=== PATIENT | male | born 1960 | race Caucasian/White ===

== ENCOUNTER 2017-06-16 10:00 | Outpatient (RCR) | payer OTHER, SELFPAY ==
[2017-05-31 15:20] VITALS: BP 128/80; PULSE 82; RESP 18; TEMP 37.3
--- NOTE | 2017-05-31 17:23 | HP.PCM_ITS ---
(1) Chronic 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 Status: Chronic Current Visit: Yes Code(s): L97.522 - Non-pressure chronic ulcer of other part of 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 (2) Equinus contracture of left ankle Status: Chronic Current Visit: Yes Code(s): M24.572 - Contracture, left ankle (3) Edema of left lower leg due to peripheral venous insufficiency Status: Chronic Current Visit: Yes Code(s): I87.2 - Venous insufficiency ( chronic) (peripheral); R60.9 - Edema, unspecified (4) Other specified peripheral vascular diseases Status: Chronic Current Visit: Yes Code(s): I73.89 - Other specified peripheral vascular diseases (5) History of DVT of lower extremity Status: Chronic Current Visit: Yes Code(s): Z86.718 - Personal history of other venous thrombosis and embolism (6) Type 2 diabetes mellitus with diabetic polyneuropathy Status: Chronic Current Visit: Yes Code(s): E11.42 - Type 2 diabetes mellitus with diabetic polyneuropathy History of Present Illness Date of Service: 05/31/17 Chief Complaint: L plantar foot ulceration History of Wound: This 57-year-old male with multiple comorbidities presents to the wound healing center for left heel ulcer. He reports the onset was approximately 1 month ago. He was referred from the foot and ankle center. He has applied Neosporin and hydrogel. He continues to wear he denies redness or odor. He denies antibiotic use. He does have rest burning and tingling. He denies claudication symptoms when he is walking. He reports a history of previous ulcer to the left foot on the top. He denies recent blood flow studies within the past 2 years. Past Medical History Past Medical History: Chronic Problems Chronic 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 (Chronic) Equinus contracture of left ankle (Chronic) Edema of left lower leg due to peripheral venous insufficiency (Chronic) Other specified peripheral vascular diseases (Chronic) Type 2 diabetes mellitus with diabetic polyneuropathy (Chronic) Depression (Chronic) Essential hypertension (Chronic) Morbid obesity (Chronic) Type 2 diabetes mellitus (Chronic) History of DVT of lower extremity (Chronic) Past Medical History: Past medical history: Diabetes with neuropathy, congestive heart failure, and hypertension, peripheral vascular disease, history of atrial fibrillation on chronic anticoagulation medications, history of left thigh and leg blood clots. Family history: Diabetes, cardiac disease, stroke Surgical History: noncontributory, - - carpal tunnel syndrom surgery Allergies/Adverse Reactions: Allergies cephalexin Allergy (Verified 12/02/16 11:33) Hives Penicillins Allergy (Verified 12/02/16 11:33) Hives Home Medications: Ambulatory Orders Medication Instructions Recorded Ascorbic Acid [Vitamin C] 1,000 mg PO DAILY 12/02/16 Buspirone HCl 10 mg PO DAILY 12/02/16 Carvedilol [Coreg (Beta Federico)] 37.5 mg PO DAILY 12/02/16 Cholecalciferol (VIT D3) [Vitamin 1,000 unit PO DAILY 12/02/16 D3] Dicyclomine HCl 20 mg PO TID 12/02/16 Gabapentin [Neurontin] 600 mg PO BID 12/02/16 Multivitamin [Multiple Vitamins] 1 each PO DAILY 12/02/16 Nifedipine [Nifedipine ER] 30 mg PO DAILY 12/02/16 Pravastatin Sodium 80 mg PO DAILY 12/02/16 Psyllium Husk (with Sugar) 3.4 gm PO PRN PRN 12/02/16 [Metamucil Packet] Pyridoxine HCl [Vitamin B-6] 25 mg PO DAILY 12/02/16 Ranitidine [Zantac] 150 mg PO BID 12/02/16 Venlafaxine XR [Effexor Xr] 150 mg PO DAILY 12/02/16 Warfarin [Coumadin] 10 mg PO SUTUTHSA 12/02/16 Warfarin [Coumadin] 11 mg PO MOWEFR 12/02/16 Furosemide [Lasix] 40 mg PO BID #60 tablet 12/04/16 - Family History Maternal Heart Disease Lives: Alone Smoking Status: Never smoker Tobacco Use: Non-smoker Alcohol: None - previous use Drugs: None Review of Systems Constitutional: Denies: Chills, Fever, Weakness Cardiovascular: Denies: Chest Pain, Claudication Gastrointestinal: Denies: Diarrhea, Nausea, Vomiting Musculoskeletal: Denies: Foot Pain, Joint Tenderness Skin: Reports: Skin Changes, Wounds Neurological: Reports: Numbness Hematologic/ Lymphatic: Reports: Hx of blood clot - Physical Exam Vital Signs Temp Pulse Resp BP 99.1 F 82 18 128/80 H 05/31/17 15:20 05/31/17 15:20 05/31/17 15:20 05/31/17 15:20 General: Alert, Oriented x3, Cooperative Extremities: No cyanosis, Capillary Refill Less than 3 Seconds, No Calf Tenderness - Negative Jeronimo and Rutledge bilateral lower extremities, Peripheral Pulses Normal - Palpable dorsalis pedis pulse left and nonpalpable posterior tibia artery left Skin: Ulcer/ Wound - No purulence, no erythema, streaking, no odor, no necrosis , no infection left lower extremity ulcer. There is no deep probing, - - The peripheral skin is atrophic and without her left lower Wound Measurements and Assessment WC - Nurse 1 - General Ulcer Measurement Start: 05/31/17 15:18 Freq: Status: Active Protocol: Activity Type Activity Date Activity User E-Sign Co-Sign Detail Recorded Client Recorded Date Recorded By Document 05/31/17 15:20 DV [id number] 05/31/17 15:37 DV 05/31/17 15:20 Wound Center Nurse 1 [Ulcer Assessment] #1 Left Heel- Plantar -Combined with other wound No -Current Size (cm) - Length 1.0 -Current Size (cm) - Width 0.8 -Current Size (cm) - Depth 0.5 -Total Square Cm 0.80 -Date of Last Picture (Recall this 05/31/17 field) -Photo Taken Yes -Epithelialization None Present -Tunneling No -Undermining/Tunneling No -Circular Undermining No -Exudate Amt Small (1-33%) -Exudate Type Serosanguineous -Wound Margin Indistinct, Non -Visible -Granulation Amt None Present (0 %) -Granulation Quality N/A -Slough/Fibrin Yes -Necrosis Amt Large (67-100%) -Necrotic Tissue Type Adherent Slough -Structure Exposed None/Limited to Skin Breakdown -Texture (Fiona-wound Skin Appearance) Assessed Localized Edema -Moisture (Fiona-wound Skin Appearance Assessed ) Weeping Dry/Scaly -Color (Fiona-wound Skin Appearance) Assessed Erythema -Temperature (Fiona-wound Skin No Abnormality Appearance) (Pt Warm) -Tenderness on Palpation (Fiona-wound No Skin Appearance) -Ulcer Cleansing Rinsed/ Irrigated with Saline -Foul Odor after Cleansing No -Anesthetic Used 5% Lidocaine Gel [Edema Assessment] -Lower Limb Edema Present No -Right Calf (cm) 46.0 -Right Ankle (cm) 24.6 -Left Calf (cm) 46.0 -Left Ankle (cm) 24.7 - Nurse 2 - General Ulcer CM Notes Start: 05/31/17 15:18 Freq: Status: Active Protocol: Activity Type Activity Date Activity User E-Sign Co-Sign Detail Recorded Client Recorded Date Recorded By Document 05/31/17 16:13 [id number] 05/31/17 16:20 05/31/17 16:13 Wound Center Nurse 2 [Procedure/Treatment] #1 Left Heel- Plantar -Time 16:14 -Correct Patient Yes -Correct Side, Site, Position Yes -Correct Procedure Yes -Procedure Performed Yes -Type of Procedure Debridement -Clinical Debridement Subcutaneous -Post Debridement Size (cm) - Length 1.0 -Post Debridement Size (cm) - Width 1.0 -Post Debridement Size (cm) - Depth 0.1 -Total Square Cm 1.00 -Wound/Ulcer Outcome Not Healed -Ulcer Cleansing Rinsed/ Irrigated with Saline -Foul Odor after Cleansing No -Bioengineered Tissue No -Topical Lidocaine (%) 5 -Bleeding Controlled with Pressure -Treatment Response Procedure Tolerated Well [See Physician Procedure note for Specifics] Pain Scale: 0-10 Numeric [Pain] -Is Patient Pain Free? Yes Musculoskeletal: No Tenderness to Palpation of Joints or Extremities, Muscle Wasting, - - Compartments of left lower extremity remain soft and there is no crepitus periwound palpation. There is decreased ankle joint dorsiflexion left lower extremity Neurological: - - Lack of epicritic sensation light touch bilateral lower extremities consistent with neuropathy Psych/Mental Status: Normal Affect, Appropriate Debridement Note Post-Debridement Measurements/Treatment - Nurse 2 - General Ulcer CM Notes Start: 05/31/17 15:18 Freq: Status: Active Protocol: Activity Type Activity Date Activity User E-Sign Co-Sign Detail Recorded Client Recorded Date Recorded By Document 05/31/17 16:13 [id number] 05/31/17 16:20 05/31/17 16:13 Wound Center Nurse 2 #1 Left Heel- Plantar -Time 16:14 -Correct Patient Yes -Correct Side, Site, Position Yes -Correct Procedure Yes -Procedure Performed Yes -Type of Procedure Debridement -Clinical Debridement Subcutaneous -Post Debridement Size (cm) - Length 1.0 -Post Debridement Size (cm) - Width 1.0 -Post Debridement Size (cm) - Depth 0.1 -Total Square Cm 1.00 -Wound/Ulcer Outcome Not Healed -Ulcer Cleansing Rinsed/ Irrigated with Saline -Foul Odor after Cleansing No -Bioengineered Tissue No -Topical Lidocaine (%) 5 -Bleeding Controlled with Pressure -Treatment Response Procedure Tolerated Well Pain Scale: 0-10 Numeric Is Patient Pain Free? Yes Wound debrided: plantar heel Laterality: Left Wound Grade/Stage: grade 1 Type of Debridement: Excisional debridement Anesthesia Used: 4% Lidocaine Solution Depth: in the subcutaneous layer Percentage of wound debrided: 100 Instrument Used: #15 blade Tissue Removed: fibrous, devitalized subcutaneous, biofilm, slough Severity: Fat Layer Exposed Amount of bleeding with debridement: Mild Bleeding Controlled with: Pressure Patient tolerated procedure well Assessment/Plan Active Problems Chronic 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 (Chronic) Equinus contracture of left ankle (Chronic) Edema of left lower leg due to peripheral venous insufficiency (Chronic) Other specified peripheral vascular diseases (Chronic) Type 2 diabetes mellitus with diabetic polyneuropathy (Chronic) History of DVT of lower extremity (Chronic) Assessment: Type 2 diabetes, uncontrolled with neuropathy, PVD, venous insufficiency, ulcer of L plantar foot, obesity Plan: I reviewed and discussed his care plan and reviewed his previous chart. I discussed his ongoing treatment recommendations. Subcutaneous excisional debridement was performed as noted in the clinical panel. I recommend changing the dressing daily with hydrogel with collagen and to discontinue Neosporin application. I recommended advanced wound care product, epi fix which is derived from amniotic cord cells to optimize a timely healing process. Preauthorization will be initiated. He was reassured no local signs of infection are noted today. To offload the wound with a non pneumatic cam walker with dual density offloading pocket. A prescription was provided and he will obtain this at the foot and ankle center. Compliance was discussed. I recommend nutritional supplementation to optimize healing and improved diabetic control. A prescription for Marcos was provided and he was advised to drink this twice daily. His noninvasive vascular studies were reviewed from 2014 with a right TRISH of 1.12 and left of 1.17. His previous toe brachial indices were 0.4 right and 0.54 left. I recommend updating these at this time due to his return of the wound and delayed healing. I also ordered venous reflux studies to rule out venous insufficiency which may be contributing to his lower extremity edema and delayed wound healing. I ordered some labs including CBC, CMP, and hemoglobin A1c to better understand his medical stability. I will review all of these results when he returns to clinic next week. He understands he is at risk for delayed healing and limb loss. I answered all his questions. I recommend he follows up in 1 week or call sooner if he has any questions or concerns. If he is any status progression or concerns of infection he was advised to go to the emergency room immediately.
[2017-05-31 19:01] LABS: Absolute Lymphocyte Count 1.75 X10^3/ul (0.83-4.51); Absolute Neutrophil Count 4.6 X10^3/uL (2.0-7.7); Basophil# 0.03 X10^3/uL; Basophil% 0.4 % (0-1); Eosinophil# 0.17 X10^3/uL; Eosinophils% 2.4 % (0-5); Hematocrit 36.7 % (40-54); Hemoglobin 11.7 g/dl (13.0-16.5); Lymphocyte # 1.75 X10^3/ul (4.0); Lymphocyte % 24.9 % (19-41); Mean Corp Hgb Conc 31.9 g/gl (32-36); Mean Corpuscular Hgb 29.5 pg (27.0-32.0); Mean Corpuscular Volume 92.4 fL (80-94); Mean Platelet Vol. 10.5 fl (6.2-12.0); Monocyte# 0.51 X10^3/uL; Monocyte% 7.3 % (0-10); Neutrophil # 4.56 X10^3/uL (2.7-7.7); Neutrophil % 64.9 % (47-70); Platelet Count 209 K/mm3 (150-450); RBC Distribution Width CV 13.6 % (11.6-14.6); RBC Distribution Width SD 45.8 fl (35.1-43.9); Red Blood Count 3.97 M/mm3 (4.6-6.2)
[2017-05-31 19:03] LABS: POSITIVE COUNT NO; POSITIVE DIFFERENTIAL NO; POSITIVE MORPHOLOGY NO
[2017-05-31 19:13] LABS: ALB/GLOB Ratio 0.9 RATIO (0.9-2.4); AST(SGOT) 22 U/L (15-37); Alanine Aminotransfer ALT/SGPT 29 U/L (16-61); Albumin, Serum 3.9 g/dL (3.2-5.0); Alkaline Phosphatase 72 U/L (45-117); Anion Gap 9 (5-15); BUN 72 mg/dL (7-18); BUN/Creat Ratio 23.1 RATIO (10-20); Chloride 112 mmol/L (98-107); Creatinine, Serum 3.12 mg/dL (0.70-1.30); EST Glomerular Filtration Rate 22 mL/min (>60); Est Glom Filt Rate - Afr Amer 27 mL/min (>60); Globulin 4.5 g/dL (2.2-4.2); Glucose 95 mg/dL (74-106); Potassium 5.1 mmol/L (3.5-5.1); Protein, Total 8.4 g/dL (6.4-8.2); Sodium Level 146 mmol/L (136-145)
[2017-05-31 19:14] LABS: Hemoglobin A1c 7.2 % (4.2-6.3)
[2017-06-07 15:36] VITALS: BP 125/65; PULSE 69; RESP 18; TEMP 37.2
--- NOTE | 2017-06-07 16:32 | PN.PCM_ITS ---
(1) Chronic 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 Status: Chronic Current Visit: Yes Code(s): L97.522 - Non-pressure chronic ulcer of other part of 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 (2) Equinus contracture of left ankle Status: Chronic Current Visit: Yes Code(s): M24.572 - Contracture, left ankle (3) Edema of left lower leg due to peripheral venous insufficiency Status: Chronic Current Visit: Yes Code(s): I87.2 - Venous insufficiency ( chronic) (peripheral); R60.9 - Edema, unspecified (4) Other specified peripheral vascular diseases Status: Chronic Current Visit: Yes Code(s): I73.89 - Other specified peripheral vascular diseases (5) History of DVT of lower extremity Status: Chronic Current Visit: Yes Code(s): Z86.718 - Personal history of other venous thrombosis and embolism (6) Type 2 diabetes mellitus with diabetic polyneuropathy Status: Chronic Current Visit: Yes Code(s): E11.42 - Type 2 diabetes mellitus with diabetic polyneuropathy Type of Wound Date of Service: 06/08/17 Chief Complaint: Left foot ulcer History of Wound: This 57-year-old male with multiple comorbidities presents to the wound healing center for follow-up of the left heel ulcer. This is not chronic. He is applied hydrogel is recommended. He continues to wear he denies redness or odor. He denies recent blood flow studies within the past 2 years. He obtained his cam walker boot in which an offloading liner was placed. He still tries keep weight off of his foot and avoid excessive activities. He did not obtain his x-rays advised yet. He denies fever, chill, nausea, vomiting. Progress of Wound: Stable - Physical Exam Vital Signs Temp Pulse Resp BP 98.9 F 69 18 125/65 H 06/07/17 15:36 06/07/17 15:36 06/07/17 15:36 06/07/17 15:36 General: Alert, Oriented x3, Cooperative Extremities: No cyanosis, Capillary Refill Less than 3 Seconds, No Calf Tenderness - Negative Jeronimo and Rutledge sign bilateral, Diminished Peripheral Pulses, Edema - Bilateral lower extremities Skin: Ulcer/ Wound - No purulence, no erythema, streaking, odor, no acute signs of infection bilateral lower extremities. No fluctuance on palpation to the left heel. There is no deep tissue exposed. Wound Measurements and Assessment - Nurse 1 - General Ulcer Measurement Start: 05/31/17 15:18 Freq: Status: Active Protocol: Activity Type Activity Date Activity User E-Sign Co-Sign Detail Recorded Client Recorded Date Recorded By Document 06/07/17 15:36 DV [id number] 06/07/17 15:42 DV 06/07/17 15:36 Wound Center Nurse 1 [Ulcer Assessment] #1 Left Heel- Plantar -Combined with other wound No -Current Size (cm) - Length 0.7 -Current Size (cm) - Width 0.8 -Current Size (cm) - Depth 0.4 -Total Square Cm 0.56 -Photo Taken No -Epithelialization None Present -Tunneling No -Undermining/Tunneling No -Circular Undermining No -Exudate Amt Small (1-33%) -Exudate Type Serosanguineous -Wound Margin Distinct, Outline Attached -Granulation Amt None Present (0 %) -Granulation Quality N/A -Slough/Fibrin Yes -Necrosis Amt Medium (34-66%) -Necrotic Tissue Type Adherent Slough -Structure Exposed None/Limited to Skin Breakdown -Texture (Fiona-wound Skin Appearance) Assessed Scarring -Moisture (Fiona-wound Skin Appearance Weeping ) -Color (Fiona-wound Skin Appearance) No Abnormality Assessed -Temperature (Fiona-wound Skin No Abnormality Appearance) (Pt Warm) -Ulcer Cleansing Rinsed/ Irrigated with Saline -Foul Odor after Cleansing No -Anesthetic Used 4% Lidocaine Solution - Nurse 2 - General Ulcer CM Notes Start: 05/31/17 15:18 Freq: Status: Active Protocol: Activity Type Activity Date Activity User E-Sign Co-Sign Detail Recorded Client Recorded Date Recorded By Document 06/07/17 15:49 TM [id number] 06/07/17 15:54 TM 06/07/17 15:49 Wound Center Nurse 2 [Procedure/Treatment] -Time 15:49 -Correct Patient Yes -Correct Side, Site, Position Yes -Correct Procedure Yes -Procedure Performed Yes -Type of Procedure Debridement -Clinical Debridement Subcutaneous -Post Debridement Size (cm) - Length 0.8 -Post Debridement Size (cm) - Width 0.9 -Post Debridement Size (cm) - Depth 0.4 -Total Square Cm 0.72 -Wound/Ulcer Outcome Not Healed -Ulcer Cleansing Rinsed/ Irrigated with Saline -Foul Odor after Cleansing No -Bioengineered Tissue No -Topical Lidocaine (%) 4 -Bleeding Controlled with Pressure -Treatment Response Procedure Tolerated Well [See Physician Procedure note for Specifics] Pain Scale: 0-10 Numeric [Pain] -Is Patient Pain Free? Yes Musculoskeletal: No Tenderness to Palpation of Joints or Extremities, Muscle Wasting, Tenderness - Mild tenderness with wound manipulation and debridement Neurological: - - Lack of epicritic sensation light touch left lower extremity Psych/Mental Status: Normal Affect, Appropriate Debridement Note Post-Debridement Measurements/Treatment WC - Nurse 2 - General Ulcer CM Notes Start: 05/31/17 15:18 Freq: Status: Active Protocol: Activity Type Activity Date Activity User E-Sign Co-Sign Detail Recorded Client Recorded Date Recorded By Document 05/31/17 16:13 TM [id number] 05/31/17 16:20 TM Document 06/07/17 15:49 TM [id number] 06/07/17 15:54 TM 05/31/17 06/07/17 16:13 15:49 Wound Center Nurse 2 #1 Left Heel- Plantar -Time 16:14 15:49 -Correct Patient Yes Yes -Correct Side, Site, Position Yes Yes -Correct Procedure Yes Yes -Procedure Performed Yes Yes -Type of Procedure Debridement Debridement -Clinical Debridement Subcutaneous Subcutaneous -Post Debridement Size (cm) - Length 1.0 0.8 -Post Debridement Size (cm) - Width 1.0 0.9 -Post Debridement Size (cm) - Depth 0.1 0.4 -Total Square Cm 1.00 0.72 -Wound/Ulcer Outcome Not Healed Not Healed -Ulcer Cleansing Rinsed/ Rinsed/ Irrigated with Irrigated with Saline Saline -Foul Odor after Cleansing No No -Bioengineered Tissue No No -Topical Lidocaine (%) 5 4 -Bleeding Controlled with Pressure Pressure -Treatment Response Procedure Procedure Tolerated Well Tolerated Well Pain Scale: 0-10 Numeric Is Patient Pain Free? Yes Yes Wound debrided: plantar lateral heel Laterality: Left Wound Grade/Stage: grade 1 Type of Debridement: Excisional debridement Anesthesia Used: 4% Lidocaine Solution Depth: in the subcutaneous layer Percentage of wound debrided: 100 Instrument Used: #15 blade Tissue Removed: fibrous, devitalized subcutaneous, biofilm, slough Severity: Fat Layer Exposed Amount of bleeding with debridement: Mild Bleeding Controlled with: Pressure Patient tolerated procedure well Assessment/Plan Active Problems Chronic 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 (Chronic) Equinus contracture of left ankle (Chronic) Edema of left lower leg due to peripheral venous insufficiency (Chronic) Other specified peripheral vascular diseases (Chronic) Type 2 diabetes mellitus with diabetic polyneuropathy (Chronic) History of DVT of lower extremity (Chronic) Assessment: Type 2 diabetes, uncontrolled with neuropathy, PVD, venous insufficiency, ulcer of L plantar foot, obesity Plan: I reviewed and discussed his care plan and reviewed his previous chart. I discussed his ongoing treatment recommendations. Subcutaneous excisional debridement was performed as noted in the clinical panel. I recommend changing the dressing daily with hydrogel with collagen. I recommended advanced wound care product, epi fix which is derived from amniotic cord cells to optimize a timely healing process. Preauthorization is pending. He was reassured no local signs of infection are noted today. To offload the wound with a non pneumatic cam walker with dual density offloading pocket. This was obtained and offloading area was adjusted today. Compliance was discussed. I recommend nutritional supplementation to optimize healing and improved diabetic control. A prescription for Marcos was provided and he was advised to drink this twice daily. His noninvasive vascular studies were reviewed from 2014 with a right TRISH of 1.12 and left of 1.17. His previous toe brachial indices were 0.4 right and 0.54 left. I recommend updating these at this time due to his return of the wound and delayed healing. I also ordered venous reflux studies to rule out venous insufficiency which may be contributing to his lower extremity edema and delayed wound healing. Noninvasive and the test has not been completed yet. It is noted he had an ankle-brachial index on the left lower extremity 1.17 back in 2013. A left foot x-ray was also ordered to evaluate for osseous deformity spurring or foreign body, and he was advised to obtain this today. I ordered some labs including CBC, CMP, and hemoglobin A1c to better understand his medical stability. He did not demonstrate any leukocytosis and his white blood cell count 7.0. It is noted his albumin is 3.9 and his hemoglobin A1c is 7.2% which he will continue to work on improved glucose control. He understands he is at risk for delayed healing and limb loss. I answered all his questions. I recommend he follows up in 1 week or call sooner if he has any questions or concerns. If he is any status progression or concerns of infection he was advised to go to the emergency room immediately.
--- NOTE | 2017-06-09 11:05 | RAD_ITS ---
STUDY: X-RAY - LEFT FOOT CLINICAL: Male, 57 years old. Ulcer TECHNIQUE: 3 view(s) of the foot. COMPARISON: None. FINDINGS: Normal talus, calcaneus, and tarsal bones. Normal visualized subtalar, talonavicular, calcaneocuboid, tarsal and tarsometatarsal articulations. Normal metatarsi. Normal metatarsophalangeal joint of the great toe. Normal tibial and fibular sesamoid bones. Normal interphalangeal joint of the great toe. Normal phalanges of the great toe. Normal second through fifth metatarsophalangeal joints. Normal interphalangeal joints and phalanges of the lesser toes. Plantar soft tissue air likely at site of ulcer. Arterial calcifications. RAD/Foot min 3 Views IMPRESSION: No focal osseous lesion is evident. If there is further concern for osteomyelitis, consider correlation with three-phase bone scan or contrast-enhanced MRI. Electronically Signed: Devin Beckett MD at 8:18 EDT Tel , Service support ,
[2017-06-14 15:49] VITALS: BP 150/83; PULSE 59; RESP 18; TEMP 36.3
--- NOTE | 2017-06-14 16:50 | PN.PCM_ITS ---
(1) Chronic 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 Status: Chronic Current Visit: Yes Code(s): L97.522 - Non-pressure chronic ulcer of other part of 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 (2) Equinus contracture of left ankle Status: Chronic Current Visit: Yes Code(s): M24.572 - Contracture, left ankle (3) Edema of left lower leg due to peripheral venous insufficiency Status: Chronic Current Visit: Yes Code(s): I87.2 - Venous insufficiency ( chronic) (peripheral); R60.9 - Edema, unspecified (4) Other specified peripheral vascular diseases Status: Chronic Current Visit: Yes Code(s): I73.89 - Other specified peripheral vascular diseases (5) History of DVT of lower extremity Status: Chronic Current Visit: Yes Code(s): Z86.718 - Personal history of other venous thrombosis and embolism (6) Type 2 diabetes mellitus with diabetic polyneuropathy Status: Chronic Current Visit: Yes Code(s): E11.42 - Type 2 diabetes mellitus with diabetic polyneuropathy Type of Wound Date of Service: 06/16/17 Chief Complaint: Left foot ulcer History of Wound: This 57-year-old male with multiple comorbidities presents to the wound healing center for follow-up of the left heel ulcer. This is not chronic. He is applied hydrogel is recommended. He continues to wear he denies redness or odor. He denies recent blood flow studies within the past 2 years. He obtained his cam walker boot in which an offloading liner was placed. He still tries to keep weight off of his foot and avoid excessive activities. He did obtain his x-rays and he would like to review the results. He denies fever, chill, nausea, vomiting. Progress of Wound: Improving - Physical Exam Vital Signs Temp Pulse Resp BP 97.3 F L 59 L 18 150/83 H 06/14/17 15:49 06/14/17 15:49 06/14/17 15:49 06/14/17 15:49 General: Alert, Oriented x3, Cooperative Extremities: No cyanosis, Capillary Refill Less than 3 Seconds, No Calf Tenderness - Negative Jeronimo present bilateral, Diminished Peripheral Pulses, Edema Skin: Ulcer/ Wound - No purulence, no erythema, streaking, no odor, no acute signs of infection or necrosis. There is some peripheral epithelialization noted. His peripheral skin is atrophic. Wound Measurements and Assessment WC - Nurse 1 - General Ulcer Measurement Start: 05/31/17 15:18 Freq: Status: Active Protocol: Activity Type Activity Date Activity User E-Sign Co-Sign Detail Recorded Client Recorded Date Recorded By Document 06/14/17 15:49 [id number] 06/14/17 15:51 TM 06/14/17 15:49 Wound Center Nurse 1 [Ulcer Assessment] #1 Left Heel- Plantar -Combined with other wound No -Current Size (cm) - Length 0.5 -Current Size (cm) - Width 0.5 -Current Size (cm) - Depth 0.1 -Total Square Cm 0.25 -Photo Taken No -Epithelialization None Present -Tunneling No -Undermining/Tunneling No -Circular Undermining No -Classification - Thickness Full Thickness without Exposed Support Structure -Exudate Amt Small (1-33%) -Exudate Type Serosanguineous -Wound Margin Distinct, Outline Attached -Granulation Amt Large (67-100%) -Granulation Quality [place] -Slough/Fibrin Yes -Necrosis Amt Small (1-33%) -Necrotic Tissue Type Adherent Slough -Structure Exposed Fascia Fat Layer Exposed -Texture (Fiona-wound Skin Appearance) Callus Scarring -Moisture (Fiona-wound Skin Appearance No Abnormality ) -Color (Fiona-wound Skin Appearance) Erythema -Temperature (Fiona-wound Skin No Abnormality Appearance) (Pt Warm) -Tenderness on Palpation (Fiona-wound No Skin Appearance) -Ulcer Cleansing Rinsed/ Irrigated with Saline -Foul Odor after Cleansing No -Anesthetic Used 5% Lidocaine Gel [Edema Assessment] -Lower Limb Edema Present Yes -Left Calf (cm) 44.5 -Left Ankle (cm) 24.0 - Nurse 2 - General Ulcer CM Notes Start: 05/31/17 15:18 Freq: Status: Active Protocol: Activity Type Activity Date Activity User E-Sign Co-Sign Detail Recorded Client Recorded Date Recorded By Document 06/14/17 16:38 [id number] 06/14/17 16:39 06/14/17 16:38 Wound Center Nurse 2 [Procedure/Treatment] #1 Left Heel- Plantar -Time 16:38 -Correct Patient Yes -Correct Side, Site, Position Yes -Correct Procedure Yes -Procedure Performed Yes -Type of Procedure Debridement -Clinical Debridement Subcutaneous -Post Debridement Size (cm) - Length 0.6 -Post Debridement Size (cm) - Width 0.6 -Post Debridement Size (cm) - Depth 0.1 -Total Square Cm 0.36 -Wound/Ulcer Outcome Not Healed -Ulcer Cleansing Rinsed/ Irrigated with Saline -Foul Odor after Cleansing No -Bioengineered Tissue No -Topical Lidocaine (%) 5 -Bleeding Controlled with Pressure -Treatment Response Procedure Tolerated Well [See Physician Procedure note for Specifics] Pain Scale: 0-10 Numeric [Pain] -Is Patient Pain Free? Yes Musculoskeletal: No Tenderness to Palpation of Joints or Extremities, Muscle Wasting, Tenderness - No pain with manipulation left foot Neurological: - - Lack of epicritic sensation light touch left lower extremity Psych/Mental Status: Normal Affect, Appropriate Debridement Note Post-Debridement Measurements/Treatment WC - Nurse 2 - General Ulcer CM Notes Start: 05/31/17 15:18 Freq: Status: Active Protocol: Activity Type Activity Date Activity User E-Sign Co-Sign Detail Recorded Client Recorded Date Recorded By Document 05/31/17 16:13 TM [id number] 05/31/17 16:20 TM Document 06/07/17 15:49 [id number] 06/07/17 15:54 TM Document 06/14/17 16:38 TM [id number] 06/14/17 16:39 TM 05/31/17 06/07/17 06/14/17 16:13 15:49 16:38 Wound Center Nurse 2 #1 Left Heel- Plantar -Time 16:14 15:49 16:38 -Correct Patient Yes Yes Yes -Correct Side, Site, Position Yes Yes Yes -Correct Procedure Yes Yes Yes -Procedure Performed Yes Yes Yes -Type of Procedure Debridement Debridement Debridement -Clinical Debridement Subcutaneous Subcutaneous Subcutaneous -Post Debridement Size (cm) - Length 1.0 0.8 0.6 -Post Debridement Size (cm) - Width 1.0 0.9 0.6 -Post Debridement Size (cm) - Depth 0.1 0.4 0.1 -Total Square Cm 1.00 0.72 0.36 -Wound/Ulcer Outcome Not Healed Not Healed Not Healed -Ulcer Cleansing Rinsed/ Rinsed/ Rinsed/ Irrigated with Irrigated with Irrigated with Saline Saline Saline -Foul Odor after Cleansing No No No -Bioengineered Tissue No No No -Topical Lidocaine (%) 5 4 5 -Bleeding Controlled with Pressure Pressure Pressure -Treatment Response Procedure Procedure Procedure Tolerated Well Tolerated Well Tolerated Well Pain Scale: 0-10 Numeric Is Patient Pain Free? Yes Yes Yes Wound debrided: plantar heel Laterality: Left - plantar foot Wound Grade/Stage: grade 1 Type of Debridement: Excisional debridement Anesthesia Used: 5% Lidocaine Gel Depth: in the subcutaneous layer Percentage of wound debrided: 100 Instrument Used: #15 blade Tissue Removed: fibrous, devitalized subcutaneous, biofilm, slough Severity: Fat Layer Exposed Amount of bleeding with debridement: Mild Bleeding Controlled with: Pressure Patient tolerated procedure well Assessment/Plan Clinical Impression(s) from Imaging Studies Foot X-Ray 06/09/17 11:05 IMPRESSION: No focal osseous lesion is evident. If there is further concern for osteomyelitis, consider correlation with three-phase bone scan or contrast-enhanced MRI. Electronically Signed: Devin Beckett MD at 8:18 EDT Tel , Service support , Active Problems Chronic 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 (Chronic) Equinus contracture of left ankle (Chronic) Edema of left lower leg due to peripheral venous insufficiency (Chronic) Other specified peripheral vascular diseases (Chronic) Type 2 diabetes mellitus with diabetic polyneuropathy (Chronic) History of DVT of lower extremity (Chronic) Assessment: Type 2 diabetes, uncontrolled with neuropathy, PVD, venous insufficiency, ulcer of left plantar foot, obesity Plan: I reviewed and discussed his care plan and reviewed his previous chart. I discussed his ongoing treatment recommendations. Subcutaneous excisional debridement was performed as noted in the clinical panel. I recommend changing the dressing daily with hydrogel with collagen. I recommended advanced wound care product, epi fix which is derived from amniotic cord cells to optimize a timely healing process. Preauthorization was completed and he was approved for application with the co-pay. He would like to think about this and is not able to proceed forward today. He was reassured no local signs of infection are noted today. To offload the wound with a non pneumatic cam walker with dual density offloading pocket. Continued compliance was encouraged. I recommend nutritional supplementation to optimize healing and improved diabetic control. A prescription for Marcos was provided and he was advised to drink this twice daily. His noninvasive vascular studies were reviewed from 2014 with a right TRISH of 1.12 and left of 1.17. His previous toe brachial indices were 0.4 right and 0.54 left. I recommend updating these at this time due to his return of the wound and delayed healing. This test is scheduled for 06/16/17. I also ordered venous reflux studies to rule out venous insufficiency which may be contributing to his lower extremity edema and delayed wound healing. A left foot x-ray was also ordered to evaluate for osseous deformity spurring or foreign body, and he was advised to obtain this last week. It was reviewed without gross abnormalities. I ordered some labs including CBC, CMP, and hemoglobin A1c to better understand his medical stability. He did not demonstrate any leukocytosis and his white blood cell count 7.0. It is noted his albumin is 3.9 and his hemoglobin A1c is 7.2% which he will continue to work on improved glucose control. He understands he is at risk for delayed healing and limb loss. I answered all his questions. I recommend he follows up in 1 week or call sooner if he has any questions or concerns. If he is any status progression or concerns of infection he was advised to go to the emergency room immediately. His [facility] paper work has also been completed per his request. He is unable to permorm his job tasks at this time because he is unable to bear weight which would compromise his healing process and further increase his risk for limb loss.
--- NOTE | 2017-06-16 09:26 | VDLE_ITS ---
Reason For Study: Swelling RIGHT LEFT GSV is normal. CFV is compressible, spontaneous, phasic, CFV is compressible, spontaneous, phasic, competent, and demonstrates normal competent and demonstrates normal augmentation. augmentation. FV is compressible, spontaneous, phasic, FV is compressible, spontaneous, phasic, competent and demonstrates normal competent and demonstrates normal augmentation. augmentation. POP V is compressible, spontaneous, phasic, POP V is compressible, spontaneous, phasic, competent and demonstrates normal competent and demonstrates normal augmentation. augmentation. T/P Trunk is compressible. T/P Trunk is compressible. PTV is compressible. PTV is compressible. LT PerV is compressible. RT PerV is compressible. Lt SFJ is Incompetent Rt SFJ is Competent Lt GSV thigh not well visualized due to very Rt GSV is Competent small vessel Rt SSV is Competent. Lt GSV is Incompetent in the calf with Procedure reflux greater than 0.5 sec and a diameter Exam performed in department. of 0.47cm x 0.66cm A preliminary report was called and/or faxed to [facility]. Lt SSV is Incompetent with reflux greater than 0.5 sec and a diameter of 0.45cm x 0.46cm Difficult to visualize Lt CFV and Lt PeroV Large varicosities with flow noted in mid thigh from Lt FV. Interpretation Summary Deep veins of the lower extremities are bilaterally patent and compressible segmentally. There is no evidence of deep vein thrombosis on either side. Valvular competence appears intact within the proximal deep venous systems bilaterally. The right greater saphenous vein appears patent and compressible segmentally. The left greater saphenous vein is diminutive in the thigh, and patent and compressible in the left calf. The right sapheno-femoral junction is competent . The left sapheno-femoral junction is incompetent . The right greater saphenous vein appears segmentally competent. The left greater saphenous vein is incompetent in the calf, and unassessable in the thigh. The right small saphenous vein is patent and competent. The left small saphenous vein is patent and incompetent. Large varicosities are noted in the left mid-thigh. Ordering Physician: Yoko Oneal Referring Physician: Yola Ng Performed By: Brisa Franklin, JERRY, RVT
--- NOTE | 2017-06-24 14:37 | LEAS ---
Arterial Study - Arterial Study Arterial Study: This is a 57-year-old male with a history of atrial fibrillation, diabetes mellitus, hypertension, and peripheral arterial occlusive disease. The patient was brought to the noninvasive vascular laboratory at this time for the purpose of bilateral noninvasive lower extremity arterial assessment. Doppler signal assessment was used to evaluate the pulses at ankle level bilaterally. On the right, the posterior tibial and dorsalis pedis pulses were biphasic. The left posterior tibial and dorsalis pedis pulses were monophasic. Segmental limb pressures were obtained bilaterally. The right low thigh pressure was measured at 138 mmHg. Right calf pressure was measured at 139 mm. The right ankle pressure, as determined by posterior tibial pulse, was measured at 180 mmHg. The right ankle pressure, as determined by dorsalis pedis pulse, could not be determined due to the noncompressibility of the vasculature. The right digital pressure was measured at 44 mmHg. The left low thigh pressure, left calf pressure, and the left ankle pressure, as determined by dorsalis pedis pulse, could not be determined due to the noncompressibility of the vasculature. The left ankle pressure, as determined by posterior tibial pulse, was measured at 136 mmHg. The left digital pressure was measured at 20 mmHg. Pulse-volume recordings were obtained bilaterally and segmentally. Waveform amplitudes appeared to be diminished at calf level on the left, and at ankle and digital levels bilaterally. Resting ankle-brachial indices were calculated bilaterally. The resting right ankle-brachial index was calculated to be 1.18. The resting left ankle-brachial index was calculated to be 0.89. Digital-brachial indices were calculated bilaterally. The right digital-brachial index was calculated to be 0.29. The left digital-brachial index was calculated to be 0.13. Impression: Based upon the findings of this resting noninvasive lower extremity arterial study, there is evidence of severe arterial occlusive disease in the lower extremities bilaterally, with severe impairment of arterial perfusion at digital level bilaterally. The resting right ankle-brachial index is normal. The resting left ankle-brachial index is mildly diminished. However, biphasic waveforms are noted at ankle level on the right, and monophasic waveforms are noted at ankle level on the left. Furthermore, digital-brachial indices are severely diminished. These findings suggest relatively normal arterial flow to ankle level bilaterally, but severe, distal small-vessel arterial occlusive disease bilaterally. Of note, arterial calcification is suspected, due to the noncompressibility of the vasculature in segments bilaterally. This may factitiously elevate arterial pressures, and render ankle-brachial indices inaccurate, not reflecting the true severity of the occlusive process. Clinical correlation is advised.
--- NOTE | 2017-06-24 14:42 | LEAS_ITS ---
Arterial Study - Arterial Study Arterial Study: This is a 57-year-old male with a history of atrial fibrillation, diabetes mellitus, hypertension, and peripheral arterial occlusive disease. The patient was brought to the noninvasive vascular laboratory at this time for the purpose of bilateral noninvasive lower extremity arterial assessment. Doppler signal assessment was used to evaluate the pulses at ankle level bilaterally. On the right, the posterior tibial and dorsalis pedis pulses were biphasic. The left posterior tibial and dorsalis pedis pulses were monophasic. Segmental limb pressures were obtained bilaterally. The right low thigh pressure was measured at 138 mmHg. Right calf pressure was measured at 139 mm. The right ankle pressure, as determined by posterior tibial pulse, was measured at 180 mmHg. The right ankle pressure, as determined by dorsalis pedis pulse, could not be determined due to the noncompressibility of the vasculature. The right digital pressure was measured at 44 mmHg. The left low thigh pressure, left calf pressure, and the left ankle pressure, as determined by dorsalis pedis pulse, could not be determined due to the noncompressibility of the vasculature. The left ankle pressure, as determined by posterior tibial pulse, was measured at 136 mmHg. The left digital pressure was measured at 20 mmHg. Pulse-volume recordings were obtained bilaterally and segmentally. Waveform amplitudes appeared to be diminished at calf level on the left, and at ankle and digital levels bilaterally. Resting ankle-brachial indices were calculated bilaterally. The resting right ankle-brachial index was calculated to be 1.18. The resting left ankle- brachial index was calculated to be 0.89. Digital-brachial indices were calculated bilaterally. The right digital- brachial index was calculated to be 0.29. The left digital-brachial index was calculated to be 0.13. Impression: Based upon the findings of this resting noninvasive lower extremity arterial study, there is evidence of severe arterial occlusive disease in the lower extremities bilaterally, with severe impairment of arterial perfusion at digital level bilaterally. The resting right ankle-brachial index is normal. The resting left ankle-brachial index is mildly diminished. However, biphasic waveforms are noted at ankle level on the right, and monophasic waveforms are noted at ankle level on the left. Furthermore, digital-brachial indices are severely diminished. These findings suggest relatively normal arterial flow to ankle level bilaterally, but severe, distal small-vessel arterial occlusive disease bilaterally. Of note, arterial calcification is suspected, due to the noncompressibility of the vasculature in segments bilaterally. This may factitiously elevate arterial pressures, and render ankle-brachial indices inaccurate, not reflecting the true severity of the occlusive process. Clinical correlation is advised.
== END 2017-06-19 23:59 ==
LOC: CVS 10:00
PROVIDERS: Family Provider Internal Medicine; PCP Internal Medicine; Visit Provider Podiatrist
DX: E11.621 Type 2 diabetes mellitus with foot ulcer (principal); L97.522 Non-pressure chronic ulcer of other part of 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; M24.572 Contracture, left ankle; R60.0 Localized edema; I87.2 Venous insufficiency (chronic) (peripheral); Z86.718 Personal history of other venous thrombosis and embolism; E11.42 Type 2 diabetes mellitus with diabetic polyneuropathy; E11.51 Type 2 diabetes mellitus with diabetic peripheral angiopathy without gangrene; E66.01 Morbid (severe) obesity due to excess calories; Z71.3 Dietary counseling and surveillance; I11.0 Hypertensive heart disease with heart failure; I50.9 Heart failure, unspecified
CPT/HCPCS: 11042; 73630; 80053; 83036; 85025; 93923; 93970; 99213; G0463

== ENCOUNTER 2017-07-19 11:00 | Outpatient (RCR) | payer OTHER, SELFPAY ==
[2017-06-20 01:09] VITALS: PULSE 59; RESP 18; TEMP 36.3
[2017-06-21 11:19] VITALS: BP 135/66; PULSE 78; RESP 18; TEMP 36.9
--- NOTE | 2017-06-21 13:11 | PN.PCM_ITS ---
(1) Chronic 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 Status: Chronic Current Visit: Yes Code(s): L97.522 - Non-pressure chronic ulcer of other part of 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 (2) Edema of left lower leg due to peripheral venous insufficiency Status: Chronic Current Visit: Yes Code(s): I87.2 - Venous insufficiency ( chronic) (peripheral); R60.9 - Edema, unspecified (3) Other specified peripheral vascular diseases Status: Chronic Current Visit: Yes Code(s): I73.89 - Other specified peripheral vascular diseases (4) Type 2 diabetes mellitus with diabetic polyneuropathy Status: Chronic Current Visit: Yes Code(s): E11.42 - Type 2 diabetes mellitus with diabetic polyneuropathy (5) Morbid obesity Status: Chronic Current Visit: Yes Code(s): E66.01 - Morbid (severe) obesity due to excess calories Type of Wound Date of Service: 06/21/17 Chief Complaint: Left foot ulcer History of Wound: This 57-year-old male with multiple comorbidities presents to the wound healing center for follow-up of the left heel ulcer. This is not chronic. He is applied hydrogel is recommended. He continues to wear he denies redness or odor. He obtained his cam walker boot in which an offloading liner was placed. He still tries to keep weight off of his foot and avoid excessive activities. He did obtain his non invasive vascular studies, and he would like to review the results. He denies fever, chill, nausea, vomiting. Progress of Wound: Improving - Physical Exam Vital Signs Temp Pulse Resp BP 98.4 F 78 18 135/66 H 06/21/17 11:19 06/21/17 11:19 06/21/17 11:19 06/21/17 11:19 General: Alert, Oriented x3, Cooperative HEENT: Atraumatic Extremities: No cyanosis, Capillary Refill Less than 3 Seconds, No Calf Tenderness, Diminished Peripheral Pulses, Edema Skin: Ulcer/ Wound - no purulence, no erythema, no infection, no necrosis, no exposed deep tissue noted., - - atrophic skin Wound Measurements and Assessment WC - Nurse 1 - General Ulcer Measurement Start: 06/21/17 11:19 Freq: Status: Active Protocol: Activity Type Activity Date Activity User E-Sign Co-Sign Detail Recorded Client Recorded Date Recorded By Document 06/21/17 11:19 RB [id number] 06/21/17 11:26 RB 06/21/17 11:19 Wound Center Nurse 1 [Ulcer Assessment] #1 Left Heel- Plantar -Combined with other wound No -Current Size (cm) - Length 6.5 -Current Size (cm) - Width 0.5 -Current Size (cm) - Depth 0.3 -Total Square Cm 3.25 -Photo Taken No -Tunneling No -Undermining/Tunneling No -Circular Undermining No -Classification - [place] Grading ( Grade 2 Diabetic Ulcer) -Exudate Amt Small (1-33%) -Exudate Type Serosanguineous -Wound Margin Fibrotic Scar, Thickened Scar -Granulation Amt Medium (34-66%) -Granulation Quality [place] -Slough/Fibrin Yes -Necrosis Amt Medium (34-66%) -Necrotic Tissue Type Adherent Slough -Structure Exposed N/A -Texture (Fiona-wound Skin Appearance) Assessed Callus -Moisture (Fiona-wound Skin Appearance Assessed ) -Color (Fiona-wound Skin Appearance) Assessed -Temperature (Fiona-wound Skin No Abnormality Appearance) (Pt Warm) -Tenderness on Palpation (Fiona-wound No Skin Appearance) -Ulcer Cleansing Rinsed/ Irrigated with Saline -Foul Odor after Cleansing No -Anesthetic Used 5% Lidocaine Gel [Edema Assessment] -Lower Limb Edema Present Yes -Left Calf (cm) 44.5 -Left Ankle (cm) 24.5 WC - Nurse 2 - General Ulcer CM Notes Start: 06/21/17 11:19 Freq: Status: Active Protocol: Activity Type Activity Date Activity User E-Sign Co-Sign Detail Recorded Client Recorded Date Recorded By Document 06/21/17 11:41 [id number] 06/21/17 11:42 06/21/17 11:41 Wound Center Nurse 2 [Procedure/Treatment] #1 Left Heel- Plantar -Time 11:41 -Correct Patient Yes -Correct Side, Site, Position Yes -Correct Procedure Yes -Procedure Performed Yes -Type of Procedure Debridement -Clinical Debridement Subcutaneous -Post Debridement Size (cm) - Length 0.8 -Post Debridement Size (cm) - Width 0.8 -Post Debridement Size (cm) - Depth 0.1 -Total Square Cm 0.64 -Wound/Ulcer Outcome Not Healed -Ulcer Cleansing Rinsed/ Irrigated with Saline -Foul Odor after Cleansing No -Bioengineered Tissue Yes -Type of bioengineered Tissue EPIFIX -Expiration Date 02/20/22 -Product Lot Number [id number] -Percent Used 100 -Saline Lot Number [id number] -Bleeding Controlled with Pressure -Treatment Response Procedure Tolerated Well [See Physician Procedure note for Specifics] Pain Scale: 0-10 Numeric [Pain] -Is Patient Pain Free? Yes Musculoskeletal: No Tenderness to Palpation of Joints or Extremities, Muscle Wasting Neurological: - - lack of epicritic sensation via light touch bilateral lower extremities Psych/Mental Status: Normal Affect, Appropriate Debridement Note Post-Debridement Measurements/Treatment WC - Nurse 2 - General Ulcer CM Notes Start: 06/21/17 11:19 Freq: Status: Active Protocol: Activity Type Activity Date Activity User E-Sign Co-Sign Detail Recorded Client Recorded Date Recorded By Document 06/21/17 11:41 REID [id number] 06/21/17 11:42 REID 06/21/17 11:41 Wound Center Nurse 2 #1 Left Heel- Plantar -Time 11:41 -Correct Patient Yes -Correct Side, Site, Position Yes -Correct Procedure Yes -Procedure Performed Yes -Type of Procedure Debridement -Clinical Debridement Subcutaneous -Post Debridement Size (cm) - Length 0.8 -Post Debridement Size (cm) - Width 0.8 -Post Debridement Size (cm) - Depth 0.1 -Total Square Cm 0.64 -Wound/Ulcer Outcome Not Healed -Ulcer Cleansing Rinsed/ Irrigated with Saline -Foul Odor after Cleansing No -Bioengineered Tissue Yes -Type of bioengineered Tissue EPIFIX -Expiration Date 02/20/22 -Product Lot Number [id number] -Percent Used 100 -Saline Lot Number [id number] -Bleeding Controlled with Pressure -Treatment Response Procedure Tolerated Well Pain Scale: 0-10 Numeric Is Patient Pain Free? Yes Wound debrided: plantar heel Laterality: Left Wound Grade/Stage: grade 1 Type of Debridement: Excisional debridement Anesthesia Used: 5% Lidocaine Gel Depth: in the subcutaneous layer Percentage of wound debrided: 100 Instrument Used: #15 blade Tissue Removed: fibrous, devitalized subcutaneous, biofilm, slough, callous Severity: Fat Layer Exposed Amount of bleeding with debridement: Mild Bleeding Controlled with: Pressure Patient tolerated procedure well Assessment/Plan Active Problems Chronic 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 (Chronic) Edema of left lower leg due to peripheral venous insufficiency (Chronic) Other specified peripheral vascular diseases (Chronic) Type 2 diabetes mellitus with diabetic polyneuropathy (Chronic) Morbid obesity (Chronic) Assessment: Type 2 diabetes, uncontrolled with neuropathy, PVD, venous insufficiency, ulcer of left plantar foot, obesity Plan: I reviewed and discussed his care plan and reviewed his previous chart. I discussed his ongoing treatment recommendations. Subcutaneous excisional debridement was performed as noted in the clinical panel. I recommend leaving his recommended advanced wound care product, epi fix intact this next week which was derived from amniotic cord cells to optimize a timely healing process. Verbal consent was obtained and this was applied according to standard protocol. This was further secured with a wound veil and steri strips. He was reassured no local signs of infection are noted today. To offload the wound with a non pneumatic cam walker with dual density offloading pocket. Continued compliance was encouraged. I recommend nutritional supplementation to optimize healing and improved diabetic control. A prescription for Marcos was provided and he was advised to drink this twice daily. His updated noninvasive vascular studies were reviewed from last week and were abnormal to the left lower extremity. I also ordered venous reflux studies to rule out venous insufficiency which confirmed abnoralities to the left lower extremity veins. I recommend a vascular surgery referral which was provided to Dr. Shannon. A left foot x-ray was also ordered to evaluate for osseous deformity spurring or foreign body, and this was previously reviewed without gross abnormalities. I ordered some labs including CBC, CMP, and hemoglobin A1c to better understand his medical stability. He did not demonstrate any leukocytosis and his white blood cell count 7.0. It is noted his albumin is 3.9 and his hemoglobin A1c is 7.2% which he will continue to work on improved glucose control. He understands he is at risk for delayed healing and limb loss. I answered all his questions. I recommend he follows up in 1 week or call sooner if he has any questions or concerns. A wound center provider will be covering. If he is any status progression or concerns of infection he was advised to go to the emergency room immediately. His [employer] paper work has also been completed per his request. He is unable to permorm his job tasks at this time because he is unable to bear weight which would compromise his healing process and further increase his risk for limb loss.
[2017-06-29 14:47] VITALS: BP 139/66; PULSE 68; RESP 20; TEMP 37
--- NOTE | 2017-06-29 16:39 | PCM.WC.PN ---
(1) Chronic 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 Status: Chronic Current Visit: Yes Code(s): L97.522 - Non-pressure chronic ulcer of other part of 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 (2) Edema of left lower leg due to peripheral venous insufficiency Status: Chronic Current Visit: Yes Code(s): I87.2 - Venous insufficiency (chronic) (peripheral); R60.9 - Edema, unspecified (3) Other specified peripheral vascular diseases Status: Chronic Current Visit: Yes Code(s): I73.89 - Other specified peripheral vascular diseases (4) Type 2 diabetes mellitus with diabetic polyneuropathy Status: Chronic Current Visit: Yes Code(s): E11.42 - Type 2 diabetes mellitus with diabetic polyneuropathy (5) Morbid obesity Status: Chronic Current Visit: Yes Code(s): E66.01 - Morbid (severe) obesity due to excess calories Type of Wound Date of Service: 06/29/17 Chief Complaint: Left foot ulcer History of Wound: This 57-year-old male with multiple comorbidities presents to the wound healing center for follow-up of the left heel ulcer. This is not chronic. He is applied hydrogel is recommended. He continues to wear he denies redness or odor. He obtained his cam walker boot in which an offloading liner was placed. He still tries to keep weight off of his foot and avoid excessive activities. He did obtain his non invasive vascular studies, and he would like to review the results. He denies fever, chill, nausea, vomiting. Progress of Wound: Improving - Physical Exam Vital Signs Temp Pulse Resp BP 98.6 F 68 20 H 139/66 H 06/29/17 14:47 06/29/17 14:47 06/29/17 14:47 06/29/17 14:47 General: Alert, Oriented x3, Cooperative, No apparent distress Extremities: No cyanosis, Capillary Refill Less than 3 Seconds, No Calf Tenderness, Diminished Peripheral Pulses, Edema Skin: Ulcer/ Wound - There is no purulence, no erythema, no necrosis, no probing to bone, no undermining, or any other signs of local infection appreciated at this time to ulcer. Wound Measurements and Assessment WC - Nurse 1 - General Ulcer Measurement Start: 06/21/17 11:19 Freq: Status: Active Protocol: Activity Type Activity Date Activity User E-Sign Co-Sign Detail Recorded Client Recorded Date Recorded By Document 06/29/17 14:47 DUNCAN [id number] 06/29/17 15:01 DUNCAN 06/29/17 14:47 Wound Center Nurse 1 [Ulcer Assessment] #1 Left Heel- Plantar -Combined with other wound No -Current Size (cm) - Length 0.7 -Current Size (cm) - Width 0.8 -Total Square Cm 0.56 -Date of Last Picture (Recall this 06/29/17 field) -Photo Taken Yes -Epithelialization None Present -Tunneling Yes -Tunneling Position (O'clock) 2 -Tunneling Distance (cm) 1.7 -Undermining/Tunneling Yes -Undermining/Tunneling Starts (O' 2 clock) -Undermining/Tunneling Ends (O'clock) 3 -Maximum Distance (cm) 1.7 -Undermining/Tunneling Starts #2 (O' 6 clock) -Undermining/Tunneling Ends #2 (O' 1 clock) -Maximum Distance #2 (cm) 0.5 -Circular Undermining No -Classification - Thickness Full Thickness without Exposed Support Structure -Classification - [place]ajas Grading ( Grade 2 Diabetic Ulcer) -Change in Wound Grade/Stage No Query Text:If change please identify the Stage/Grade in the comment (ie. S2 G3) -Exudate Amt Small (1-33%) -Exudate Type Serosanguineous -Wound Margin Distinct, Outline Attached -Granulation Amt None Present (0 %) -Granulation Quality N/A -Slough/Fibrin Yes -Necrosis Amt None Present (0 %) -Necrotic Tissue Type Adherent Slough -Structure Exposed N/A -Texture (Fiona-wound Skin Appearance) Callus -Moisture (Fiona-wound Skin Appearance No Abnormality ) -Color (Fiona-wound Skin Appearance) No Abnormality -Temperature (Fiona-wound Skin No Abnormality Appearance) (Pt Warm) -Tenderness on Palpation (Fiona-wound No Skin Appearance) -Ulcer Cleansing Rinsed/ Irrigated with Saline -Foul Odor after Cleansing No -Anesthetic Used 4% Lidocaine Solution [Edema Assessment] -Lower Limb Edema Present Yes -Left Calf (cm) 44.7 -Left Ankle (cm) 25.0 WC - Nurse 2 - General Ulcer CM Notes Start: 06/21/17 11:19 Freq: Status: Active Protocol: Activity Type Activity Date Activity User E-Sign Co-Sign Detail Recorded Client Recorded Date Recorded By Document 06/29/17 15:47 [id number] 06/29/17 15:49 06/29/17 15:47 Wound Center Nurse 2 [Procedure/Treatment] #1 Left Heel- Plantar -Time 15:47 -Correct Patient Yes -Correct Side, Site, Position Yes -Correct Procedure Yes -Procedure Performed Yes -Type of Procedure Debridement -Clinical Debridement Subcutaneous -Post Debridement Size (cm) - Length 1.6 -Post Debridement Size (cm) - Width 2.2 -Post Debridement Size (cm) - Depth 0.3 -Total Square Cm 3.52 -Wound/Ulcer Outcome Not Healed -Ulcer Cleansing Rinsed/ Irrigated with Saline -Foul Odor after Cleansing No -Bioengineered Tissue Yes -Type of bioengineered Tissue EPIFIX -Expiration Date 04/20/22 -Product Lot Number [id number] -Percent Used 100 -Saline Lot Number [id number] -Topical Lidocaine (%) 4 -Bleeding Controlled with Pressure -Treatment Response Procedure Tolerated Well [See Physician Procedure note for Specifics] Pain Scale: 0-10 Numeric [Pain] -Is Patient Pain Free? Yes Musculoskeletal: No Tenderness to Palpation of Joints or Extremities Neurological: - - Lack of epicritic sensation to lower extremity Psych/Mental Status: Normal Affect, Appropriate Debridement Note Post-Debridement Measurements/Treatment WC - Nurse 2 - General Ulcer CM Notes Start: 06/21/17 11:19 Freq: Status: Active Protocol: Activity Type Activity Date Activity User E-Sign Co-Sign Detail Recorded Client Recorded Date Recorded By Document 06/21/17 11:41 [id number] 06/21/17 11:42 Document 06/29/17 15:47 [id number] 06/29/17 15:49 06/21/17 06/29/17 11:41 15:47 Wound Center Nurse 2 #1 Left Heel- Plantar -Time 11:41 15:47 -Correct Patient Yes Yes -Correct Side, Site, Position Yes Yes -Correct Procedure Yes Yes -Procedure Performed Yes Yes -Type of Procedure Debridement Debridement -Clinical Debridement Subcutaneous Subcutaneous -Post Debridement Size (cm) - Length 0.8 1.6 -Post Debridement Size (cm) - Width 0.8 2.2 -Post Debridement Size (cm) - Depth 0.1 0.3 -Total Square Cm 0.64 3.52 -Wound/Ulcer Outcome Not Healed Not Healed -Ulcer Cleansing Rinsed/ Rinsed/ Irrigated with Irrigated with Saline Saline -Foul Odor after Cleansing No No -Bioengineered Tissue Yes Yes -Type of bioengineered Tissue EPIFIX EPIFIX -Expiration Date 02/20/22 04/20/22 -Product Lot Number [id number] -Percent Used 100 100 -Saline Lot Number [id number] -Topical Lidocaine (%) 4 -Bleeding Controlled with Pressure Pressure -Treatment Response Procedure Procedure Tolerated Well Tolerated Well Pain Scale: 0-10 Numeric Is Patient Pain Free? Yes Yes Wound debrided: Left plantar heel Laterality: Left Wound Grade/Stage: 1 Type of Debridement: Excisional debridement Anesthesia Used: 4% Lidocaine Solution Depth: in the subcutaneous layer Percentage of wound debrided: 100 Instrument Used: #15 blade Tissue Removed: Fibrous tissue, devitalized subcutaneous tissue, biofilm, slough, callus Severity: Fat Layer Exposed Amount of bleeding with debridement: Mild Bleeding Controlled with: Pressure Patient tolerated procedure well Assessment/Plan Active Problems Chronic 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 (Chronic) Edema of left lower leg due to peripheral venous insufficiency (Chronic) Other specified peripheral vascular diseases (Chronic) Type 2 diabetes mellitus with diabetic polyneuropathy (Chronic) Morbid obesity (Chronic) Assessment: Type 2 diabetes, uncontrolled with neuropathy, PVD, venous insufficiency, ulcer of left plantar foot, obesity Plan: Patient was seen today in the absence of Dr. Oneal. I discussed his ongoing treatment recommendations. Subcutaneous excisional debridement was performed as noted in the clinical panel. Patient had epifix applied to ulcer site again today. Verbal consent was obtained and this was applied according to standard protocol. This was further secured with a wound veil and steri strips. He was reassured no local signs of infection are noted today. To continue to offload the ulcer with a non pneumatic cam walker with dual density offloading pocket. Continued compliance was encouraged. I recommend nutritional supplementation to optimize healing and improved diabetic control. A prescription for Marcos was provided and he was advised to drink this twice daily. His updated noninvasive vascular studies were reviewed from last week and were abnormal to the left lower extremity. I also ordered venous reflux studies to rule out venous insufficiency which confirmed abnoralities to the left lower extremity veins. Patient said he was called by Dr. Shannon's office, but forgot to answer their message and call back to make an appointment. He says he will do this when he gets home. He understands he is at risk for delayed healing and limb loss. I answered all his questions. I recommend he follows up in 1 week or call sooner if he has any questions or concerns. All signs and symptoms of local and systemic infection were discussed with the patient and he was instructed to go to the emergency room should he notice any of these.
--- NOTE | 2017-06-29 16:48 | PN.PCM_ITS ---
(1) Chronic 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 Status: Chronic Current Visit: Yes Code(s): L97.522 - Non-pressure chronic ulcer of other part of 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 (2) Edema of left lower leg due to peripheral venous insufficiency Status: Chronic Current Visit: Yes Code(s): I87.2 - Venous insufficiency ( chronic) (peripheral); R60.9 - Edema, unspecified (3) Other specified peripheral vascular diseases Status: Chronic Current Visit: Yes Code(s): I73.89 - Other specified peripheral vascular diseases (4) Type 2 diabetes mellitus with diabetic polyneuropathy Status: Chronic Current Visit: Yes Code(s): E11.42 - Type 2 diabetes mellitus with diabetic polyneuropathy (5) Morbid obesity Status: Chronic Current Visit: Yes Code(s): E66.01 - Morbid (severe) obesity due to excess calories Type of Wound Date of Service: 06/29/17 Chief Complaint: Left foot ulcer History of Wound: This 57-year-old male with multiple comorbidities presents to the wound healing center for follow-up of the left heel ulcer. This is not chronic. He is applied hydrogel is recommended. He continues to wear he denies redness or odor. He obtained his cam walker boot in which an offloading liner was placed. He still tries to keep weight off of his foot and avoid excessive activities. He did obtain his non invasive vascular studies, and he would like to review the results. He denies fever, chill, nausea, vomiting. Progress of Wound: Improving - Physical Exam Vital Signs Temp Pulse Resp BP 98.6 F 68 20 H 139/66 H 06/29/17 14:47 06/29/17 14:47 06/29/17 14:47 06/29/17 14:47 General: Alert, Oriented x3, Cooperative, No apparent distress Extremities: No cyanosis, Capillary Refill Less than 3 Seconds, No Calf Tenderness, Diminished Peripheral Pulses, Edema Skin: Ulcer/ Wound - There is no purulence, no erythema, no necrosis, no probing to bone, no undermining, or any other signs of local infection appreciated at this time to ulcer. Wound Measurements and Assessment WC - Nurse 1 - General Ulcer Measurement Start: 06/21/17 11:19 Freq: Status: Active Protocol: Activity Type Activity Date Activity User E-Sign Co-Sign Detail Recorded Client Recorded Date Recorded By Document 06/29/17 14:47 DUNCAN [id number] 06/29/17 15:01 DUNCAN 06/29/17 14:47 Wound Center Nurse 1 [Ulcer Assessment] #1 Left Heel- Plantar -Combined with other wound No -Current Size (cm) - Length 0.7 -Current Size (cm) - Width 0.8 -Total Square Cm 0.56 -Date of Last Picture (Recall this 06/29/17 field) -Photo Taken Yes -Epithelialization None Present -Tunneling Yes -Tunneling Position (O'clock) 2 -Tunneling Distance (cm) 1.7 -Undermining/Tunneling Yes -Undermining/Tunneling Starts (O' 2 clock) -Undermining/Tunneling Ends (O'clock) 3 -Maximum Distance (cm) 1.7 -Undermining/Tunneling Starts #2 (O' 6 clock) -Undermining/Tunneling Ends #2 (O' 1 clock) -Maximum Distance #2 (cm) 0.5 -Circular Undermining No -Classification - Thickness Full Thickness without Exposed Support Structure -Classification - [place] Grading ( Grade 2 Diabetic Ulcer) -Change in Wound Grade/Stage No Query Text:If change please identify the Stage/Grade in the comment (ie. S2 G3) -Exudate Amt Small (1-33%) -Exudate Type Serosanguineous -Wound Margin Distinct, Outline Attached -Granulation Amt None Present (0 %) -Granulation Quality N/A -Slough/Fibrin Yes -Necrosis Amt None Present (0 %) -Necrotic Tissue Type Adherent Slough -Structure Exposed N/A -Texture (Fiona-wound Skin Appearance) Callus -Moisture (Fiona-wound Skin Appearance No Abnormality ) -Color (Fiona-wound Skin Appearance) No Abnormality -Temperature (Fiona-wound Skin No Abnormality Appearance) (Pt Warm) -Tenderness on Palpation (Fiona-wound No Skin Appearance) -Ulcer Cleansing Rinsed/ Irrigated with Saline -Foul Odor after Cleansing No -Anesthetic Used 4% Lidocaine Solution [Edema Assessment] -Lower Limb Edema Present Yes -Left Calf (cm) 44.7 -Left Ankle (cm) 25.0 WC - Nurse 2 - General Ulcer CM Notes Start: 06/21/17 11:19 Freq: Status: Active Protocol: Activity Type Activity Date Activity User E-Sign Co-Sign Detail Recorded Client Recorded Date Recorded By Document 06/29/17 15:47 [id number] 06/29/17 15:49 06/29/17 15:47 Wound Center Nurse 2 [Procedure/Treatment] #1 Left Heel- Plantar -Time 15:47 -Correct Patient Yes -Correct Side, Site, Position Yes -Correct Procedure Yes -Procedure Performed Yes -Type of Procedure Debridement -Clinical Debridement Subcutaneous -Post Debridement Size (cm) - Length 1.6 -Post Debridement Size (cm) - Width 2.2 -Post Debridement Size (cm) - Depth 0.3 -Total Square Cm 3.52 -Wound/Ulcer Outcome Not Healed -Ulcer Cleansing Rinsed/ Irrigated with Saline -Foul Odor after Cleansing No -Bioengineered Tissue Yes -Type of bioengineered Tissue EPIFIX -Expiration Date 04/20/22 -Product Lot Number [id number] -Percent Used 100 -Saline Lot Number [id number] -Topical Lidocaine (%) 4 -Bleeding Controlled with Pressure -Treatment Response Procedure Tolerated Well [See Physician Procedure note for Specifics] Pain Scale: 0-10 Numeric [Pain] -Is Patient Pain Free? Yes Musculoskeletal: No Tenderness to Palpation of Joints or Extremities Neurological: - - Lack of epicritic sensation to lower extremity Psych/Mental Status: Normal Affect, Appropriate Debridement Note Post-Debridement Measurements/Treatment WC - Nurse 2 - General Ulcer CM Notes Start: 06/21/17 11:19 Freq: Status: Active Protocol: Activity Type Activity Date Activity User E-Sign Co-Sign Detail Recorded Client Recorded Date Recorded By Document 06/21/17 11:41 [id number] 06/21/17 11:42 Document 06/29/17 15:47 [id number] 06/29/17 15:49 06/21/17 06/29/17 11:41 15:47 Wound Center Nurse 2 #1 Left Heel- Plantar -Time 11:41 15:47 -Correct Patient Yes Yes -Correct Side, Site, Position Yes Yes -Correct Procedure Yes Yes -Procedure Performed Yes Yes -Type of Procedure Debridement Debridement -Clinical Debridement Subcutaneous Subcutaneous -Post Debridement Size (cm) - Length 0.8 1.6 -Post Debridement Size (cm) - Width 0.8 2.2 -Post Debridement Size (cm) - Depth 0.1 0.3 -Total Square Cm 0.64 3.52 -Wound/Ulcer Outcome Not Healed Not Healed -Ulcer Cleansing Rinsed/ Rinsed/ Irrigated with Irrigated with Saline Saline -Foul Odor after Cleansing No No -Bioengineered Tissue Yes Yes -Type of bioengineered Tissue EPIFIX EPIFIX -Expiration Date 02/20/22 04/20/22 -Product Lot Number [id number] -Percent Used 100 100 -Saline Lot Number [id number] -Topical Lidocaine (%) 4 -Bleeding Controlled with Pressure Pressure -Treatment Response Procedure Procedure Tolerated Well Tolerated Well Pain Scale: 0-10 Numeric Is Patient Pain Free? Yes Yes Wound debrided: Left plantar heel Laterality: Left Wound Grade/Stage: 1 Type of Debridement: Excisional debridement Anesthesia Used: 4% Lidocaine Solution Depth: in the subcutaneous layer Percentage of wound debrided: 100 Instrument Used: #15 blade Tissue Removed: Fibrous tissue, devitalized subcutaneous tissue, biofilm, slough , callus Severity: Fat Layer Exposed Amount of bleeding with debridement: Mild Bleeding Controlled with: Pressure Patient tolerated procedure well Assessment/Plan Active Problems Chronic 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 (Chronic) Edema of left lower leg due to peripheral venous insufficiency (Chronic) Other specified peripheral vascular diseases (Chronic) Type 2 diabetes mellitus with diabetic polyneuropathy (Chronic) Morbid obesity (Chronic) Assessment: Type 2 diabetes, uncontrolled with neuropathy, PVD, venous insufficiency, ulcer of left plantar foot, obesity Plan: Patient was seen today in the absence of Dr. Oneal. I discussed his ongoing treatment recommendations. Subcutaneous excisional debridement was performed as noted in the clinical panel. Patient had epifix applied to ulcer site again today. Verbal consent was obtained and this was applied according to standard protocol. This was further secured with a wound veil and steri strips. He was reassured no local signs of infection are noted today. To continue to offload the ulcer with a non pneumatic cam walker with dual density offloading pocket. Continued compliance was encouraged. I recommend nutritional supplementation to optimize healing and improved diabetic control. A prescription for Marcos was provided and he was advised to drink this twice daily. His updated noninvasive vascular studies were reviewed from last week and were abnormal to the left lower extremity. I also ordered venous reflux studies to rule out venous insufficiency which confirmed abnoralities to the left lower extremity veins. Patient said he was called by Dr. Shannon's office, but forgot to answer their message and call back to make an appointment. He says he will do this when he gets home. He understands he is at risk for delayed healing and limb loss. I answered all his questions. I recommend he follows up in 1 week or call sooner if he has any questions or concerns. All signs and symptoms of local and systemic infection were discussed with the patient and he was instructed to go to the emergency room should he notice any of these.
[2017-07-05 15:04] VITALS: BP 145/71; PULSE 56; RESP 20; TEMP 36.4
--- NOTE | 2017-07-05 15:31 | PCM.WC.PN ---
(1) Chronic 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 Status: Chronic Current Visit: Yes Code(s): L97.522 - Non-pressure chronic ulcer of other part of 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 (2) Edema of left lower leg due to peripheral venous insufficiency Status: Chronic Current Visit: Yes Code(s): I87.2 - Venous insufficiency (chronic) (peripheral); R60.9 - Edema, unspecified (3) Other specified peripheral vascular diseases Status: Chronic Current Visit: Yes Code(s): I73.89 - Other specified peripheral vascular diseases (4) Type 2 diabetes mellitus with diabetic polyneuropathy Status: Chronic Current Visit: Yes Code(s): E11.42 - Type 2 diabetes mellitus with diabetic polyneuropathy (5) Morbid obesity Status: Chronic Current Visit: Yes Code(s): E66.01 - Morbid (severe) obesity due to excess calories Type of Wound Date of Service: 07/08/17 Chief Complaint: Left foot ulcer History of Wound: This 57-year-old male with multiple comorbidities presents to the wound healing center for follow-up of the left heel ulcer. He has applied hydrogel is recommended. He continues to wear he denies redness or odor. He obtained his cam walker boot in which an offloading liner was placed. He still tries to keep weight off of his foot and avoid excessive activities. He did obtain his non invasive vascular studies, and he has a follow up with vascular surgery arranged. He denies fever, chill, nausea, vomiting. Progress of Wound: stable - Physical Exam Vital Signs Temp Pulse Resp BP 97.5 F L 56 L 20 H 145/71 H 07/05/17 15:04 07/05/17 15:04 07/05/17 15:04 07/05/17 15:04 General: Alert, Oriented x3, Cooperative Extremities: No cyanosis, Capillary Refill Less than 3 Seconds, No Calf Tenderness, Diminished Peripheral Pulses, Edema Skin: Ulcer/ Wound - no purulence, no erythema, no infection, no necrosis, no infection, no odor, left. atrophic skin Wound Measurements and Assessment WC - Nurse 1 - General Ulcer Measurement Start: 06/21/17 11:19 Freq: Status: Active Protocol: Activity Type Activity Date Activity User E-Sign Co-Sign Detail Recorded Client Recorded Date Recorded By Document 07/05/17 15:04 RANCHO [id number] 07/05/17 15:10 DL 07/05/17 15:04 Wound Center Nurse 1 [Ulcer Assessment] #1 Left Heel- Plantar -Current Size (cm) - Length 0.7 -Current Size (cm) - Width 0.8 -Current Size (cm) - Depth 0.2 -Total Square Cm 0.56 -Photo Taken No -Exudate Amt Small (1-33%) -Exudate Type Serosanguineous -Wound Margin Thickened -Granulation Amt Large (67-100%) -Granulation Quality [place] -Necrosis Amt Small (1-33%) -Necrotic Tissue Type Adherent Slough -Structure Exposed N/A -Texture (Fiona-wound Skin Appearance) No Abnormality -Moisture (Fiona-wound Skin Appearance Dry/Scaly ) -Color (Fiona-wound Skin Appearance) No Abnormality -Temperature (Fiona-wound Skin No Abnormality Appearance) (Pt Warm) -Ulcer Cleansing Rinsed/ Irrigated with Saline -Foul Odor after Cleansing No -Anesthetic Used 4% Lidocaine Solution [Edema Assessment] -Left Calf (cm) 44 -Left Ankle (cm) 22.5 WC - Nurse 2 - General Ulcer CM Notes Start: 06/21/17 11:19 Freq: Status: Active Protocol: Activity Type Activity Date Activity User E-Sign Co-Sign Detail Recorded Client Recorded Date Recorded By Document 07/05/17 15:26 [id number] 07/05/17 15:27 07/05/17 15:26 Wound Center Nurse 2 [Procedure/Treatment] #1 Left Heel- Plantar -Time 15:26 -Correct Patient Yes -Correct Side, Site, Position Yes -Correct Procedure Yes -Procedure Performed Yes -Type of Procedure Debridement -Clinical Debridement Subcutaneous -Post Debridement Size (cm) - Length 0.8 -Post Debridement Size (cm) - Width 0.8 -Post Debridement Size (cm) - Depth 0.2 -Total Square Cm 0.64 -Wound/Ulcer Outcome Not Healed -Ulcer Cleansing Rinsed/ Irrigated with Saline -Foul Odor after Cleansing No -Bioengineered Tissue Yes -Type of bioengineered Tissue EPIFIX -Expiration Date 04/20/22 -Product Lot Number [id number] -Percent Used 100 -Saline Lot Number [id number] -Bleeding Controlled with Pressure -Treatment Response Procedure Tolerated Well [See Physician Procedure note for Specifics] Pain Scale: 0-10 Numeric [Pain] -Is Patient Pain Free? Yes Musculoskeletal: No Tenderness to Palpation of Joints or Extremities, Muscle Wasting, - - Compartments left lower extremity remain soft Neurological: - - Lack of epicritic sensation light touch in the left lower extremity Psych/Mental Status: Normal Affect, Appropriate Debridement Note Post-Debridement Measurements/Treatment WC - Nurse 2 - General Ulcer CM Notes Start: 06/21/17 11:19 Freq: Status: Active Protocol: Activity Type Activity Date Activity User E-Sign Co-Sign Detail Recorded Client Recorded Date Recorded By Document 06/21/17 11:41 [id number] 06/21/17 11:42 Document 06/29/17 15:47 TM [id number] 06/29/17 15:49 TM Document 07/05/17 15:26 [id number] 07/05/17 15:27 06/21/17 06/29/17 07/05/17 11:41 15:47 15:26 Wound Center Nurse 2 #1 Left Heel- Plantar -Time 11:41 15:47 15:26 -Correct Patient Yes Yes Yes -Correct Side, Site, Position Yes Yes Yes -Correct Procedure Yes Yes Yes -Procedure Performed Yes Yes Yes -Type of Procedure Debridement Debridement Debridement -Clinical Debridement Subcutaneous Subcutaneous Subcutaneous -Post Debridement Size (cm) - Length 0.8 1.6 0.8 -Post Debridement Size (cm) - Width 0.8 2.2 0.8 -Post Debridement Size (cm) - Depth 0.1 0.3 0.2 -Total Square Cm 0.64 3.52 0.64 -Wound/Ulcer Outcome Not Healed Not Healed Not Healed -Ulcer Cleansing Rinsed/ Rinsed/ Rinsed/ Irrigated with Irrigated with Irrigated with Saline Saline Saline -Foul Odor after Cleansing No No No -Bioengineered Tissue Yes Yes Yes -Type of bioengineered Tissue EPIFIX EPIFIX EPIFIX -Expiration Date 02/20/22 04/20/22 04/20/22 -Product Lot Number [id number] -Percent Used 100 100 100 -Saline Lot Number [id number] -Topical Lidocaine (%) 4 -Bleeding Controlled with Pressure Pressure Pressure -Treatment Response Procedure Procedure Procedure Tolerated Well Tolerated Well Tolerated Well Pain Scale: 0-10 Numeric Is Patient Pain Free? Yes Yes Yes Wound debrided: plantar heel Laterality: Left Wound Grade/Stage: grade1 Type of Debridement: Excisional debridement Anesthesia Used: 5% Lidocaine Gel Depth: in the subcutaneous layer Percentage of wound debrided: 100 Instrument Used: #15 blade Tissue Removed: fibrous, devitalized subcutaneous, biofilm, slough Severity: Fat Layer Exposed Amount of bleeding with debridement: Mild Bleeding Controlled with: Pressure Patient tolerated procedure well Assessment/Plan Active Problems Chronic 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 (Chronic) Edema of left lower leg due to peripheral venous insufficiency (Chronic) Other specified peripheral vascular diseases (Chronic) Type 2 diabetes mellitus with diabetic polyneuropathy (Chronic) Morbid obesity (Chronic) Assessment: Type 2 diabetes, uncontrolled with neuropathy, PVD, venous insufficiency, ulcer of left plantar foot, obesity Plan: I discussed his ongoing treatment recommendations. Subcutaneous excisional debridement was performed as noted in the clinical panel. Patient had epifix applied to ulcer site again today. Verbal consent was obtained and this was applied according to standard protocol. This was further secured with a wound veil and steri strips. He was reassured no local signs of infection are noted today. To continue to offload the ulcer with a non pneumatic cam walker with dual density offloading pocket. Continued compliance was encouraged. I recommend nutritional supplementation to optimize healing and improved diabetic control. A prescription for Marcos was previously provided and he was advised to drink this twice daily. His updated noninvasive vascular studies were reviewed as abnormal to the left lower extremity. I also ordered venous reflux studies to rule out venous insufficiency which confirmed abnoralities to the left lower extremity veins. He is scheduled for further evaluation and intervention with Dr. Shannon which is greatly appreciated. He understands he is at risk for delayed healing and limb loss. I answered all his questions. I recommend he follows up in 1 week or call sooner if he has any questions or concerns. All signs and symptoms of local and systemic infection were discussed with the patient and he was instructed to go to the emergency room should he notice any of these.
[2017-07-12 14:53] VITALS: BP 131/54; PULSE 73; RESP 18; TEMP 36.1
--- NOTE | 2017-07-12 16:32 | PN.PCM_ITS ---
(1) Chronic 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 Status: Chronic Code(s): L97.522 - Non-pressure chronic ulcer of other part of 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 (2) Edema of left lower leg due to peripheral venous insufficiency Status: Chronic Code(s): I87.2 - Venous insufficiency (chronic) (peripheral); R60.9 - Edema, unspecified (3) Other specified peripheral vascular diseases Status: Chronic Code(s): I73.89 - Other specified peripheral vascular diseases (4) Type 2 diabetes mellitus with diabetic polyneuropathy Status: Chronic Code(s): E11.42 - Type 2 diabetes mellitus with diabetic polyneuropathy (5) Morbid obesity Status: Chronic Code(s): E66.01 - Morbid (severe) obesity due to excess calories Type of Wound Date of Service: 07/17/17 Chief Complaint: Left foot ulcer History of Wound: This 57-year-old male with multiple comorbidities presents to the wound healing center for follow-up of the left heel ulcer. He has applied hydrogel is recommended. He continues to wear he denies redness or odor. He obtained his cam walker boot in which an offloading liner was placed. He still tries to keep weight off of his foot and avoid excessive activities. He did obtain his non invasive vascular studies, and he has a follow up with vascular surgery arranged. He denies fever, chill, nausea, vomiting. Progress of Wound: improving quality - Physical Exam Vital Signs Temp Pulse Resp BP 97 F L 73 18 131/54 H 07/12/17 14:53 07/12/17 14:53 07/12/17 14:53 07/12/17 14:53 General: Alert, Oriented x3, Cooperative Extremities: No cyanosis, Capillary Refill Less than 3 Seconds, No Calf Tenderness, Diminished Peripheral Pulses, Edema Skin: Ulcer/ Wound - no purulence, no erythema, no infection, no streaking, no odor, left foot. no deep probing noted. the skin is atrophic and hairless Wound Measurements and Assessment WC - Nurse 1 - General Ulcer Measurement Start: 06/21/17 11:19 Freq: Status: Active Protocol: Activity Type Activity Date Activity User E-Sign Co-Sign Detail Recorded Client Recorded Date Recorded By Document 07/12/17 14:53 DL [id number] 07/12/17 15:00 DL 07/12/17 14:53 Wound Center Nurse 1 [Ulcer Assessment] #1 Left Heel- Plantar -Current Size (cm) - Length 0.7 -Current Size (cm) - Width 0.6 -Current Size (cm) - Depth 0.1 -Total Square Cm 0.42 -Photo Taken No -Exudate Amt Small (1-33%) -Exudate Type Serosanguineous -Wound Margin Thickened -Granulation Amt Small (1-33%) -Granulation Quality [place] -Necrosis Amt Small (1-33%) -Necrotic Tissue Type Adherent Slough -Structure Exposed N/A -Texture (Fiona-wound Skin Appearance) Callus -Moisture (Fiona-wound Skin Appearance Dry/Scaly ) -Color (Fiona-wound Skin Appearance) No Abnormality -Temperature (Fiona-wound Skin No Abnormality Appearance) (Pt Warm) -Ulcer Cleansing Rinsed/ Irrigated with Saline -Foul Odor after Cleansing No -Anesthetic Used 4% Lidocaine Solution [Edema Assessment] -Left Calf (cm) 43 -Left Ankle (cm) 22.8 WC - Nurse 2 - General Ulcer CM Notes Start: 06/21/17 11:19 Freq: Status: Active Protocol: Activity Type Activity Date Activity User E-Sign Co-Sign Detail Recorded Client Recorded Date Recorded By Document 07/12/17 15:38 [id number] 07/12/17 15:39 07/12/17 15:38 Wound Center Nurse 2 [Procedure/Treatment] #1 Left Heel- Plantar -Time 15:38 -Correct Patient Yes -Correct Side, Site, Position Yes -Correct Procedure Yes -Procedure Performed Yes -Type of Procedure Debridement -Clinical Debridement Subcutaneous -Post Debridement Size (cm) - Length 1.0 -Post Debridement Size (cm) - Width 0.6 -Post Debridement Size (cm) - Depth 0.1 -Total Square Cm 0.60 -Wound/Ulcer Outcome Not Healed -Ulcer Cleansing Rinsed/ Irrigated with Saline -Foul Odor after Cleansing No -Bioengineered Tissue Yes -Type of bioengineered Tissue EPIFIX -Expiration Date 04/20/22 -Product Lot Number [id number] -Percent Used 100 -Saline Lot Number [id number] -Bleeding Controlled with Pressure -Treatment Response Procedure Tolerated Well [See Physician Procedure note for Specifics] Pain Scale: 0-10 Numeric [Pain] -Is Patient Pain Free? Yes Musculoskeletal: No Tenderness to Palpation of Joints or Extremities, Muscle Wasting Neurological: - - lack of epicritic sensation noted via light touch, left Psych/Mental Status: Normal Affect, Appropriate Debridement Note Post-Debridement Measurements/Treatment WC - Nurse 2 - General Ulcer CM Notes Start: 06/21/17 11:19 Freq: Status: Active Protocol: Activity Type Activity Date Activity User E-Sign Co-Sign Detail Recorded Client Recorded Date Recorded By Document 06/21/17 11:41 [id number] 06/21/17 11:42 Document 06/29/17 15:47 [id number] 06/29/17 15:49 Document 07/05/17 15:26 [id number] 07/05/17 15:27 Document 07/12/17 15:38 [id number] 07/12/17 15:39 06/21/17 06/29/17 07/05/17 11:41 15:47 15:26 Wound Center Nurse 2 #1 Left Heel- Plantar -Time 11:41 15:47 15:26 -Correct Patient Yes Yes Yes -Correct Side, Site, Position Yes Yes Yes -Correct Procedure Yes Yes Yes -Procedure Performed Yes Yes Yes -Type of Procedure Debridement Debridement Debridement -Clinical Debridement Subcutaneous Subcutaneous Subcutaneous -Post Debridement Size (cm) - Length 0.8 1.6 0.8 -Post Debridement Size (cm) - Width 0.8 2.2 0.8 -Post Debridement Size (cm) - Depth 0.1 0.3 0.2 -Total Square Cm 0.64 3.52 0.64 -Wound/Ulcer Outcome Not Healed Not Healed Not Healed -Ulcer Cleansing Rinsed/ Rinsed/ Rinsed/ Irrigated with Irrigated with Irrigated with Saline Saline Saline -Foul Odor after Cleansing No No No -Bioengineered Tissue Yes Yes Yes -Type of bioengineered Tissue EPIFIX EPIFIX EPIFIX -Expiration Date 02/20/22 04/20/22 04/20/22 -Product Lot Number [id number] -Percent Used 100 100 100 -Saline Lot Number [id number] -Topical Lidocaine (%) 4 -Bleeding Controlled with Pressure Pressure Pressure -Treatment Response Procedure Procedure Procedure Tolerated Well Tolerated Well Tolerated Well Pain Scale: 0-10 Numeric Is Patient Pain Free? Yes Yes Yes 07/12/17 15:38 Wound Center Nurse 2 #1 Left Heel- Plantar -Time 15:38 -Correct Patient Yes -Correct Side, Site, Position Yes -Correct Procedure Yes -Procedure Performed Yes -Type of Procedure Debridement -Clinical Debridement Subcutaneous -Post Debridement Size (cm) - Length 1.0 -Post Debridement Size (cm) - Width 0.6 -Post Debridement Size (cm) - Depth 0.1 -Total Square Cm 0.60 -Wound/Ulcer Outcome Not Healed -Ulcer Cleansing Rinsed/ Irrigated with Saline -Foul Odor after Cleansing No -Bioengineered Tissue Yes -Type of bioengineered Tissue EPIFIX -Expiration Date 04/20/22 -Product Lot Number [id number] -Percent Used 100 -Saline Lot Number [id number] -Topical Lidocaine (%) -Bleeding Controlled with Pressure -Treatment Response Procedure Tolerated Well Pain Scale: 0-10 Numeric Is Patient Pain Free? Yes Wound debrided: plantar heel Laterality: Left Wound Grade/Stage: grade 1 Type of Debridement: Excisional debridement Anesthesia Used: 5% Lidocaine Gel Depth: in the subcutaneous layer Percentage of wound debrided: 100 Instrument Used: #15 blade Tissue Removed: fibrous, devitalized subcutaneous, biofilm, slough Severity: Fat Layer Exposed Amount of bleeding with debridement: Mild Bleeding Controlled with: Pressure Patient tolerated procedure well Assessment/Plan Assessment: Type 2 diabetes, uncontrolled with neuropathy, PVD, venous insufficiency, ulcer of left plantar foot, obesity Plan: I discussed his ongoing treatment recommendations. Subcutaneous excisional debridement was performed as noted in the clinical panel. Patient had epifix applied to ulcer site again today according to standard protocol. Verbal consent was obtained. This was further secured with a wound veil and steri strips. He was reassured no local signs of infection are noted today. To continue to offload the ulcer with a non pneumatic cam walker with dual density offloading pocket. Continued compliance was encouraged. I recommend nutritional supplementation to optimize healing and improved diabetic control. A prescription for Marcos was previously provided and he was advised to drink this twice daily. His updated noninvasive vascular studies were reviewed as abnormal to the left lower extremity. I also ordered venous reflux studies to rule out venous insufficiency which confirmed abnoralities to the left lower extremity veins. He is scheduled for further evaluation and intervention with Dr. Shannon which is greatly appreciated. He understands he is at risk for delayed healing and limb loss. I answered all his questions. I recommend he follows up in 1 week or call sooner if he has any questions or concerns. All signs and symptoms of local and systemic infection were discussed with the patient and he was instructed to go to the emergency room should he notice any of these.
[2017-07-19 11:42] VITALS: BP 126/62; PULSE 67; RESP 18; TEMP 37
--- NOTE | 2017-07-19 13:16 | PN.PCM_ITS ---
(1) Chronic 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 Status: Chronic Current Visit: Yes Code(s): L97.522 - Non-pressure chronic ulcer of other part of 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 (2) Edema of left lower leg due to peripheral venous insufficiency Status: Chronic Current Visit: Yes Code(s): I87.2 - Venous insufficiency ( chronic) (peripheral); R60.9 - Edema, unspecified (3) Other specified peripheral vascular diseases Status: Chronic Current Visit: Yes Code(s): I73.89 - Other specified peripheral vascular diseases (4) Type 2 diabetes mellitus with diabetic polyneuropathy Status: Chronic Current Visit: Yes Code(s): E11.42 - Type 2 diabetes mellitus with diabetic polyneuropathy (5) Morbid obesity Status: Chronic Current Visit: Yes Code(s): E66.01 - Morbid (severe) obesity due to excess calories Type of Wound Date of Service: 07/19/17 Chief Complaint: Left foot ulcer History of Wound: This 57-year-old male with multiple comorbidities presents to the wound healing center for follow-up of the left heel ulcer. He has applied hydrogel is recommended. He continues to wear he denies redness or odor. He obtained his cam walker boot in which an offloading liner was placed. He still tries to keep weight off of his foot and avoid excessive activities. He did obtain his non invasive vascular studies, and he has a follow up with vascular surgery arranged. He denies fever, chill, nausea, vomiting. Progress of Wound: improving quality - Physical Exam Vital Signs Temp Pulse Resp BP 98.6 F 67 18 126/62 H 07/19/17 11:42 07/19/17 11:42 07/19/17 11:42 07/19/17 11:42 General: Alert, Oriented x3, Cooperative Extremities: No cyanosis, Capillary Refill Less than 3 Seconds, No Calf Tenderness, Diminished Peripheral Pulses, Edema Skin: Ulcer/ Wound - No purulence, no erythema, no odor, no infection. Wound bed is granular., - - The peripheral skin is atrophic Wound Measurements and Assessment WC - Nurse 1 - General Ulcer Measurement Start: 06/21/17 11:19 Freq: Status: Active Protocol: Activity Type Activity Date Activity User E-Sign Co-Sign Detail Recorded Client Recorded Date Recorded By Document 07/19/17 11:42 RB [id number] 07/19/17 11:49 07/19/17 11:42 Wound Center Nurse 1 [Ulcer Assessment] #1 Left Heel- Plantar -Combined with other wound No -Current Size (cm) - Length 0.5 -Current Size (cm) - Width 0.8 -Current Size (cm) - Depth 0.2 -Total Square Cm 0.40 -Epithelialization Small 1-33% -Tunneling No -Undermining/Tunneling No -Circular Undermining No -Classification - Thickness Full Thickness without Exposed Support Structure -Exudate Amt Small (1-33%) -Exudate Type Serosanguineous -Wound Margin Thickened & Rolled Under -Granulation Amt Medium (34-66%) -Granulation Quality [place] -Slough/Fibrin Yes -Necrosis Amt Small (1-33%) -Necrotic Tissue Type Adherent Slough -Structure Exposed N/A -Texture (Fiona-wound Skin Appearance) Assessed -Moisture (Fiona-wound Skin Appearance Maceration ) -Color (Fiona-wound Skin Appearance) Assessed -Temperature (Fiona-wound Skin No Abnormality Appearance) (Pt Warm) -Tenderness on Palpation (Fiona-wound No Skin Appearance) -Ulcer Cleansing Wound Cleanser -Foul Odor after Cleansing No -Anesthetic Used 4% Lidocaine Solution [Edema Assessment] -Lower Limb Edema Present Yes -Left Calf (cm) 45.5 -Left Ankle (cm) 25.2 WC - Nurse 2 - General Ulcer CM Notes Start: 06/21/17 11:19 Freq: Status: Active Protocol: Activity Type Activity Date Activity User E-Sign Co-Sign Detail Recorded Client Recorded Date Recorded By Document 07/19/17 12:11 [id number] 07/19/17 12:13 07/19/17 12:11 Wound Center Nurse 2 [Procedure/Treatment] #1 Left Heel- Plantar -Time 12:12 -Correct Patient Yes -Correct Side, Site, Position Yes -Correct Procedure Yes -Procedure Performed Yes -Type of Procedure Debridement -Clinical Debridement Subcutaneous -Post Debridement Size (cm) - Length 0.6 -Post Debridement Size (cm) - Width 0.6 -Post Debridement Size (cm) - Depth 0.1 -Total Square Cm 0.36 -Wound/Ulcer Outcome Not Healed -Ulcer Cleansing Rinsed/ Irrigated with Saline -Foul Odor after Cleansing No -Bioengineered Tissue Yes -Type of bioengineered Tissue EPIFIX -Expiration Date 04/20/22 -Product Lot Number [id number] -Percent Used 100 -Saline Lot Number [id number] -Bleeding Controlled with Pressure -Treatment Response Procedure Tolerated Well [See Physician Procedure note for Specifics] Pain Scale: 0-10 Numeric [Pain] -Is Patient Pain Free? Yes Musculoskeletal: No Tenderness to Palpation of Joints or Extremities, Muscle Wasting Neurological: - - Lack of epicritic sensation light touch left lower extremity Psych/Mental Status: Normal Affect, Appropriate Debridement Note Post-Debridement Measurements/Treatment WC - Nurse 2 - General Ulcer CM Notes Start: 06/21/17 11:19 Freq: Status: Active Protocol: Activity Type Activity Date Activity User E-Sign Co-Sign Detail Recorded Client Recorded Date Recorded By Document 06/21/17 11:41 [id number] 06/21/17 11:42 Document 06/29/17 15:47 [id number] 06/29/17 15:49 Document 07/05/17 15:26 [id number] 07/05/17 15:27 Document 07/12/17 15:38 [id number] 07/12/17 15:39 Document 07/19/17 12:11 [id number] 07/19/17 12:13 06/21/17 06/29/17 07/05/17 11:41 15:47 15:26 Wound Center Nurse 2 #1 Left Heel- Plantar -Time 11:41 15:47 15:26 -Correct Patient Yes Yes Yes -Correct Side, Site, Position Yes Yes Yes -Correct Procedure Yes Yes Yes -Procedure Performed Yes Yes Yes -Type of Procedure Debridement Debridement Debridement -Clinical Debridement Subcutaneous Subcutaneous Subcutaneous -Post Debridement Size (cm) - Length 0.8 1.6 0.8 -Post Debridement Size (cm) - Width 0.8 2.2 0.8 -Post Debridement Size (cm) - Depth 0.1 0.3 0.2 -Total Square Cm 0.64 3.52 0.64 -Wound/Ulcer Outcome Not Healed Not Healed Not Healed -Ulcer Cleansing Rinsed/ Rinsed/ Rinsed/ Irrigated with Irrigated with Irrigated with Saline Saline Saline -Foul Odor after Cleansing No No No -Bioengineered Tissue Yes Yes Yes -Type of bioengineered Tissue EPIFIX EPIFIX EPIFIX -Expiration Date 02/20/22 04/20/22 04/20/22 -Product Lot Number [id number] -Percent Used 100 100 100 -Saline Lot Number [id number] -Topical Lidocaine (%) 4 -Bleeding Controlled with Pressure Pressure Pressure -Treatment Response Procedure Procedure Procedure Tolerated Well Tolerated Well Tolerated Well Pain Scale: 0-10 Numeric Is Patient Pain Free? Yes Yes Yes 07/12/17 07/19/17 15:38 12:11 Wound Center Nurse 2 #1 Left Heel- Plantar -Time 15:38 12:12 -Correct Patient Yes Yes -Correct Side, Site, Position Yes Yes -Correct Procedure Yes Yes -Procedure Performed Yes Yes -Type of Procedure Debridement Debridement -Clinical Debridement Subcutaneous Subcutaneous -Post Debridement Size (cm) - Length 1.0 0.6 -Post Debridement Size (cm) - Width 0.6 0.6 -Post Debridement Size (cm) - Depth 0.1 0.1 -Total Square Cm 0.60 0.36 -Wound/Ulcer Outcome Not Healed Not Healed -Ulcer Cleansing Rinsed/ Rinsed/ Irrigated with Irrigated with Saline Saline -Foul Odor after Cleansing No No -Bioengineered Tissue Yes Yes -Type of bioengineered Tissue EPIFIX EPIFIX -Expiration Date 04/20/22 04/20/22 -Product Lot Number [id number] -Percent Used 100 100 -Saline Lot Number [id number] -Topical Lidocaine (%) -Bleeding Controlled with Pressure Pressure -Treatment Response Procedure Procedure Tolerated Well Tolerated Well Pain Scale: 0-10 Numeric Is Patient Pain Free? Yes Yes Wound debrided: plantar heel Laterality: Left Wound Grade/Stage: grade 1 Type of Debridement: Excisional debridement Anesthesia Used: 5% Lidocaine Gel Depth: in the subcutaneous layer Percentage of wound debrided: 100 Instrument Used: #15 blade Tissue Removed: fibrous, devitalized subcutaneous, biofilm, slough Severity: Fat Layer Exposed Amount of bleeding with debridement: Mild Bleeding Controlled with: Pressure Patient tolerated procedure well Assessment/Plan Active Problems Chronic 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 (Chronic) Edema of left lower leg due to peripheral venous insufficiency (Chronic) Other specified peripheral vascular diseases (Chronic) Type 2 diabetes mellitus with diabetic polyneuropathy (Chronic) Morbid obesity (Chronic) Assessment: Type 2 diabetes, uncontrolled with neuropathy, PVD, venous insufficiency, ulcer of left plantar foot, obesity Plan: I discussed his ongoing treatment recommendations. Subcutaneous excisional debridement was performed as noted in the clinical panel. Patient had epifix applied to ulcer site again today according to standard protocol. Verbal consent was obtained. This was further secured with a wound veil and steri strips. He was reassured no local signs of infection are noted today. To continue to offload the ulcer with a non pneumatic cam walker with dual density offloading pocket. Continued compliance was encouraged. I would like to see more progress with this and recommend that he tries nonweightbearing status as next week. A prescription for crutches was provided. I recommend nutritional supplementation to optimize healing and improved diabetic control. A prescription for Marcos was previously provided and he was advised to drink this twice daily. His updated noninvasive vascular studies were reviewed as abnormal to the left lower extremity. I also ordered venous reflux studies to rule out venous insufficiency which confirmed abnoralities to the left lower extremity veins. He is scheduled for further evaluation and intervention with Dr. Shannon which is greatly appreciated. He understands he is at risk for delayed healing and limb loss. I answered all his questions. I recommend he follows up in 1 week or call sooner if he has any questions or concerns. All signs and symptoms of local and systemic infection were discussed with the patient and he was instructed to go to the emergency room should he notice any of these.
== END 2017-07-20 23:59 ==
LOC: WC 11:00
PROVIDERS: Family Provider Internal Medicine; PCP Internal Medicine; Visit Provider Podiatrist
DX: L97.522 Non-pressure chronic ulcer of other part of 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 (principal); I87.2 Venous insufficiency (chronic) (peripheral); I73.89 Other specified peripheral vascular diseases; E11.42 Type 2 diabetes mellitus with diabetic polyneuropathy; E66.01 Morbid (severe) obesity due to excess calories
CPT/HCPCS: 15275; Q4131

== ENCOUNTER → 2017-08-01 12:35 | Outpatient (CLI) | payer OTHER, SELFPAY ==
--- NOTE | 2017-08-01 12:37 | ADUL_ITS ---
Reason For Study: Atherosclerosis with ulcer LLE Left Velocities Ext Iliac Artery, dist = 147.0 cm./sec. Common Femoral Artery, prox = 138.0 cm./sec. Supf. Femoral Artery, prox = 141.0 cm./sec. Supf. Femoral Artery, mid = 138.0 cm./sec. Supf. Femoral Artery, dist = 114.0 cm./sec. Popliteal Artery, proximal, = 97.4 cm./sec. Popliteal Artery, mid = 54.5 cm./sec. Popliteal Artery, distal = 62.7 cm./sec. Post Tibial Artery, dist. = 22.2 cm./sec. Ant. Tibial Artery, distal = 71.5 cm./sec. Procedure Technically difficult due to body habitus. Exam performed in department. Interpretation Summary 1. No significant psv shift noted but biphasic flow through pop and monophasic in tibials. Difficult exam and may wish other means to evaluate. Ordering Physician: Brijesh Shannon Referring Physician: Brijesh Shannon Performed By: Sue Keyes RVT
--- NOTE | 2017-08-02 11:48 | LEAS ---
Arterial Study - Arterial Study Arterial Study: Date of scan 08/01/[address] Shannon History: Patient with claudication and left lower extremity ulcer Interpretation: Right lower extremity with more of a biphasic flow noted at the ankle with an TRISH 0.50 the PT and noncompressible in the DP. Digit brachial index 0.21. Next Left lower extremity with appears to be more of a monophasic waveform and a poor waveform noted at the ankle with an TRISH 0.49 of the PT and noncompressible of the DP. Digit brachial index 0.39. Impression: 1. Moderate arterial occlusive disease of the right leg with an TRISH 0.5 but more of a biphasic waveform. 2. Severe arterial occlusive disease with monophasic flow and TRISH 0.49 on the left lower extremity. Bilateral small vessel disease with digit brachial index 0.21 on the right 0.39 on the left
--- NOTE | 2017-08-02 11:53 | LEAS_ITS ---
Arterial Study - Arterial Study Arterial Study: Date of scan 08/01/[address] Shannon History: Patient with claudication and left lower extremity ulcer Interpretation: Right lower extremity with more of a biphasic flow noted at the ankle with an TRISH 0.50 the PT and noncompressible in the DP. Digit brachial index 0.21. Next Left lower extremity with appears to be more of a monophasic waveform and a poor waveform noted at the ankle with an TRISH 0.49 of the PT and noncompressible of the DP. Digit brachial index 0.39. Impression: 1. Moderate arterial occlusive disease of the right leg with an TRISH 0.5 but more of a biphasic waveform. 2. Severe arterial occlusive disease with monophasic flow and TRISH 0.49 on the left lower extremity. Bilateral small vessel disease with digit brachial index 0.21 on the right 0.39 on the left
== END ==
LOC: CVS 12:35
PROVIDERS: Family Provider Internal Medicine; PCP Internal Medicine; Visit Provider Surgery Vascular Surgery
DX: I70.244 Atherosclerosis of native arteries of left leg with ulceration of heel and midfoot (principal)
CPT/HCPCS: 93922; 93926

== ENCOUNTER 2017-08-16 10:30 | Outpatient (RCR) | payer OTHER, SELFPAY ==
[2017-07-21 00:57] VITALS: BP 126/62; PULSE 67; RESP 18; TEMP 37
[2017-08-02 11:25] VITALS: BP 131/69; PULSE 56; RESP 18; TEMP 36.4
--- NOTE | 2017-08-02 12:06 | PN.PCM_ITS ---
(1) Chronic 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 Status: Chronic Current Visit: Yes Code(s): L97.522 - Non-pressure chronic ulcer of other part of 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 (2) Equinus contracture of left ankle Status: Chronic Current Visit: Yes Code(s): M24.572 - Contracture, left ankle (3) Edema of left lower leg due to peripheral venous insufficiency Status: Chronic Current Visit: Yes Code(s): I87.2 - Venous insufficiency ( chronic) (peripheral); R60.9 - Edema, unspecified (4) Other specified peripheral vascular diseases Status: Chronic Current Visit: Yes Code(s): I73.89 - Other specified peripheral vascular diseases (5) Type 2 diabetes mellitus with diabetic polyneuropathy Status: Chronic Current Visit: Yes Code(s): E11.42 - Type 2 diabetes mellitus with diabetic polyneuropathy Type of Wound Date of Service: 08/02/17 Chief Complaint: Left foot ulcer History of Wound: This 57-year-old male with multiple comorbidities presents to the wound healing center for follow-up of the left heel ulcer. He has been compliant in His previous epi fix application clean and intact this past week. He continues to wear he denies redness or odor. He obtained his cam walker boot in which an offloading liner was placed. He has been compliant. He did obtain his non invasive vascular studies and he is scheduled to see Dr. Shannon next Monday on 08/09/2017. He denies fever, chill, nausea, vomiting. Progress of Wound: improving - Physical Exam Vital Signs Temp Pulse Resp BP 97.5 F L 56 L 18 131/69 H 08/02/17 11:25 08/02/17 11:25 08/02/17 11:25 08/02/17 11:25 General: Alert, Oriented x3, Cooperative Extremities: No cyanosis, Capillary Refill Less than 3 Seconds, No Calf Tenderness - Negative Jeronimo and Rutledge left, Diminished Peripheral Pulses, Edema - Mild left lower extremity Skin: Ulcer/ Wound - No purulence, no erythema, streaking, no odor, no infection left lower extremity. Peripheral epithelialization is noted in the wound bed is granular. The adjacent skin is atrophic and without hair. There is some hyperpigmentation to the left lower extremity. Wound Measurements and Assessment WC - Nurse 1 - General Ulcer Measurement Start: 08/02/17 11:24 Freq: Status: Active Protocol: Activity Type Activity Date Activity User E-Sign Co-Sign Detail Recorded Client Recorded Date Recorded By Document 08/02/17 11:25 DL [id number] 08/02/17 11:30 DL 08/02/17 11:25 Wound Center Nurse 1 [Ulcer Assessment] #1 Left Heel- Plantar -Current Size (cm) - Length 0.2 -Current Size (cm) - Width 0.2 -Current Size (cm) - Depth 0.1 -Total Square Cm 0.04 -Photo Taken No -Exudate Amt Small (1-33%) -Exudate Type Serosanguineous -Wound Margin Distinct, Outline Attached -Granulation Amt Small (1-33%) -Granulation Quality Red -Necrosis Amt None Present (0 %) -Structure Exposed N/A -Texture (Fiona-wound Skin Appearance) No Abnormality -Moisture (Fiona-wound Skin Appearance Dry/Scaly ) -Color (Fiona-wound Skin Appearance) No Abnormality -Temperature (Fiona-wound Skin No Abnormality Appearance) (Pt Warm) -Tenderness on Palpation (Fiona-wound No Skin Appearance) -Ulcer Cleansing Wound Cleanser -Foul Odor after Cleansing No -Anesthetic Used 4% Lidocaine Solution [Edema Assessment] -Left Calf (cm) 45.6 -Left Ankle (cm) 22.5 - Nurse 2 - General Ulcer CM Notes Start: 08/02/17 11:24 Freq: Status: Active Protocol: Activity Type Activity Date Activity User E-Sign Co-Sign Detail Recorded Client Recorded Date Recorded By Document 08/02/17 11:56 REID [id number] 08/02/17 11:57 REID 08/02/17 11:56 Wound Center Nurse 2 [Procedure/Treatment] #1 Left Heel- Plantar -Time 11:57 -Correct Patient Yes -Correct Side, Site, Position Yes -Correct Procedure Yes -Procedure Performed Yes -Type of Procedure Debridement -Clinical Debridement Subcutaneous -Post Debridement Size (cm) - Length 0.3 -Post Debridement Size (cm) - Width 0.3 -Post Debridement Size (cm) - Depth 0.1 -Total Square Cm 0.09 -Wound/Ulcer Outcome Not Healed -Ulcer Cleansing Rinsed/ Irrigated with Saline -Foul Odor after Cleansing No -Bioengineered Tissue No -Bleeding Controlled with Pressure -Treatment Response Procedure Tolerated Well [See Physician Procedure note for Specifics] Pain Scale: 0-10 Numeric [Pain] -Is Patient Pain Free? Yes Musculoskeletal: No Tenderness to Palpation of Joints or Extremities, Muscle Wasting Neurological: - - Lack of epicritic sensation light touch left lower extremity consistent with neuropathy Psych/Mental Status: Normal Affect, Appropriate Debridement Note Post-Debridement Measurements/Treatment WC - Nurse 2 - General Ulcer CM Notes Start: 08/02/17 11:24 Freq: Status: Active Protocol: Activity Type Activity Date Activity User E-Sign Co-Sign Detail Recorded Client Recorded Date Recorded By Document 08/02/17 11:56 [id number] [id number] 08/02/17 11:57 REID 08/02/17 11:56 Wound Center Nurse 2 #1 Left Heel- Plantar -Time 11:57 -Correct Patient Yes -Correct Side, Site, Position Yes -Correct Procedure Yes -Procedure Performed Yes -Type of Procedure Debridement -Clinical Debridement Subcutaneous -Post Debridement Size (cm) - Length 0.3 -Post Debridement Size (cm) - Width 0.3 -Post Debridement Size (cm) - Depth 0.1 -Total Square Cm 0.09 -Wound/Ulcer Outcome Not Healed -Ulcer Cleansing Rinsed/ Irrigated with Saline -Foul Odor after Cleansing No -Bioengineered Tissue No -Bleeding Controlled with Pressure -Treatment Response Procedure Tolerated Well Pain Scale: 0-10 Numeric Is Patient Pain Free? Yes Wound debrided: plantar heel Laterality: Left Wound Grade/Stage: grade 1 Type of Debridement: Excisional debridement Anesthesia Used: 5% Lidocaine Gel Depth: in the subcutaneous layer Percentage of wound debrided: 100 Instrument Used: #15 blade Tissue Removed: fibrous, devitalized subcutaneous, biofilm, slough Severity: Fat Layer Exposed Amount of bleeding with debridement: Mild Bleeding Controlled with: Pressure Patient tolerated procedure well Assessment/Plan Active Problems Chronic 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 (Chronic) Equinus contracture of left ankle (Chronic) Edema of left lower leg due to peripheral venous insufficiency (Chronic) Other specified peripheral vascular diseases (Chronic) Type 2 diabetes mellitus with diabetic polyneuropathy (Chronic) Assessment: Type 2 diabetes, uncontrolled with neuropathy, venous insufficiency , ulcer of left plantar foot, obesity, peripheral vascular disease Plan: I discussed his ongoing treatment recommendations. Subcutaneous excisional debridement was performed as noted in the clinical panel. Patient had epifix applied to ulcer site last week and demonstrates improvement Antonieta was applied today due to size reduction he was advised to changes daily and moistened with saline. He was reassured no local signs of infection are noted today. To continue to offload the ulcer with a non pneumatic cam walker with dual density offloading pocket. Continued compliance was encouraged. Continue nonweightbearing status with crutches. I recommend nutritional supplementation to optimize healing and improved diabetic control. A prescription for Marcos was previously provided and he was advised to drink this twice daily. His updated noninvasive vascular studies were reviewed as abnormal to the left lower extremity with an TRISH of approximately 0.5. I also ordered venous reflux studies to rule out venous insufficiency which confirmed abnoralities to the left lower extremity veins. He is scheduled for further evaluation and intervention with Dr. Shannon which is greatly appreciated on August 11, 2017. He understands he is at risk for delayed healing and limb loss. I answered all his questions. I recommend he follows up in 1 week or call sooner if he has any questions or concerns. All signs and symptoms of local and systemic infection were discussed with the patient and he was instructed to go to the emergency room should he notice any of these.
[2017-08-16 10:29] VITALS: BP 152/78; PULSE 79; RESP 18; TEMP 37
--- NOTE | 2017-08-16 11:18 | PN.PCM_ITS ---
(1) Chronic 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 Status: Chronic Current Visit: Yes Code(s): L97.522 - Non-pressure chronic ulcer of other part of 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 (2) Equinus contracture of left ankle Status: Chronic Current Visit: Yes Code(s): M24.572 - Contracture, left ankle (3) Edema of left lower leg due to peripheral venous insufficiency Status: Chronic Current Visit: Yes Code(s): I87.2 - Venous insufficiency ( chronic) (peripheral); R60.9 - Edema, unspecified (4) Other specified peripheral vascular diseases Status: Chronic Current Visit: Yes Code(s): I73.89 - Other specified peripheral vascular diseases (5) Type 2 diabetes mellitus with diabetic polyneuropathy Status: Chronic Current Visit: Yes Code(s): E11.42 - Type 2 diabetes mellitus with diabetic polyneuropathy Type of Wound Date of Service: 08/16/17 Chief Complaint: Left foot ulcer History of Wound: This 57-year-old male with multiple comorbidities presents to the wound healing center for follow-up of the left heel ulcer. He has been compliant in His previous epi fix application clean and intact this past week. He continues to wear he denies redness or odor. He denies drainage and thinks the wound is healed. He obtained his cam walker boot in which an offloading liner was placed. He has been compliant. He did obtain his non invasive vascular studies and he is scheduled to see Dr. Shannon next week for invasive procedures including angioplasty and potential stenting. He denies fever, chill , nausea, vomiting. Progress of Wound: Healed - Physical Exam Vital Signs Temp Pulse Resp BP 98.6 F 79 18 152/78 H 08/16/17 10:29 08/16/17 10:29 08/16/17 10:29 08/16/17 10:29 General: Alert, Oriented x3, Cooperative Extremities: No cyanosis, Capillary Refill Less than 3 Seconds, No Calf Tenderness, Diminished Peripheral Pulses, Edema Skin: Ulcer/ Wound - No purulence erythema or infection. Full epithelialization is noted in the plantar left heel ulcer is healed. The peripheral skin is atrophic. Wound Measurements and Assessment WC - Nurse 1 - General Ulcer Measurement Start: 08/02/17 11:24 Freq: Status: Active Protocol: Activity Type Activity Date Activity User E-Sign Co-Sign Detail Recorded Client Recorded Date Recorded By Document 08/16/17 10:29 RB [id number] 08/16/17 10:34 RB 08/16/17 10:29 Wound Center Nurse 1 [Ulcer Assessment] #1 Left Heel- Plantar -Combined with other wound No -Current Size (cm) - Length 0.1 -Current Size (cm) - Width 0.1 -Current Size (cm) - Depth 0.1 -Total Square Cm 0.01 -Photo Taken No -Tunneling No -Undermining/Tunneling No -Circular Undermining No -Classification - Thickness Full Thickness without Exposed Support Structure -Exudate Amt Small (1-33%) -Exudate Type Serosanguineous -Wound Margin Distinct, Outline Attached -Granulation Amt Medium (34-66%) -Granulation Quality [place] -Slough/Fibrin Yes -Necrosis Amt Small (1-33%) -Necrotic Tissue Type Adherent Slough -Structure Exposed N/A -Texture (Fiona-wound Skin Appearance) Assessed Callus -Moisture (Fiona-wound Skin Appearance Assessed ) -Color (Fiona-wound Skin Appearance) Assessed -Temperature (Fiona-wound Skin No Abnormality Appearance) (Pt Warm) -Tenderness on Palpation (Fiona-wound No Skin Appearance) -Ulcer Cleansing Rinsed/ Irrigated with Saline -Foul Odor after Cleansing No -Anesthetic Used 4% Lidocaine Solution [Edema Assessment] -Lower Limb Edema Present Yes -Left Calf (cm) 43.2 -Left Ankle (cm) 23.5 WC - Nurse 2 - General Ulcer CM Notes Start: 08/02/17 11:24 Freq: Status: Active Protocol: Activity Type Activity Date Activity User E-Sign Co-Sign Detail Recorded Client Recorded Date Recorded By Document 08/16/17 10:50 [id number] 08/16/17 10:53 CS 08/16/17 10:50 Wound Center Nurse 2 [Procedure/Treatment] #1 Left Heel- Plantar -Time 10:50 -Correct Patient Yes -Correct Side, Site, Position Yes -Correct Procedure Yes -Procedure Performed Yes -Type of Procedure Debridement -Clinical Debridement Subcutaneous -Post Debridement Size (cm) - Length 0.1 -Post Debridement Size (cm) - Width 0.1 -Post Debridement Size (cm) - Depth 0.1 -Total Square Cm 0.01 -Wound/Ulcer Outcome Not Healed -Ulcer Cleansing Not Cleansed -Foul Odor after Cleansing No -Bioengineered Tissue No -Bleeding Controlled with NA -Treatment Response Procedure Tolerated Well [See Physician Procedure note for Specifics] Pain Scale: 0-10 Numeric [Pain] -Is Patient Pain Free? Yes Musculoskeletal: No Tenderness to Palpation of Joints or Extremities, Muscle Wasting Neurological: - - Lack of epicritic sensation light touch Psych/Mental Status: Normal Affect, Appropriate Debridement Note Post-Debridement Measurements/Treatment WC - Nurse 2 - General Ulcer CM Notes Start: 08/02/17 11:24 Freq: Status: Active Protocol: Activity Type Activity Date Activity User E-Sign Co-Sign Detail Recorded Client Recorded Date Recorded By Document 08/02/17 11:56 [id number] 08/02/17 11:57 Document 08/16/17 10:50 [id number] 08/16/17 10:53 08/02/17 08/16/17 11:56 10:50 Wound Center Nurse 2 #1 Left Heel- Plantar -Time 11:57 10:50 -Correct Patient Yes Yes -Correct Side, Site, Position Yes Yes -Correct Procedure Yes Yes -Procedure Performed Yes Yes -Type of Procedure Debridement Debridement -Clinical Debridement Subcutaneous Subcutaneous -Post Debridement Size (cm) - Length 0.3 0.1 -Post Debridement Size (cm) - Width 0.3 0.1 -Post Debridement Size (cm) - Depth 0.1 0.1 -Total Square Cm 0.09 0.01 -Wound/Ulcer Outcome Not Healed Not Healed -Ulcer Cleansing Rinsed/ Not Cleansed Irrigated with Saline -Foul Odor after Cleansing No No -Bioengineered Tissue No No -Bleeding Controlled with Pressure NA -Treatment Response Procedure Procedure Tolerated Well Tolerated Well Pain Scale: 0-10 Numeric Is Patient Pain Free? Yes Yes No debridement was completed today - Healed Assessment/Plan Active Problems Chronic 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 (Chronic) Equinus contracture of left ankle (Chronic) Edema of left lower leg due to peripheral venous insufficiency (Chronic) Other specified peripheral vascular diseases (Chronic) Type 2 diabetes mellitus with diabetic polyneuropathy (Chronic) Assessment: Type 2 diabetes, uncontrolled with neuropathy, venous insufficiency , ulcer of left plantar foot healed today, obesity, peripheral vascular disease Plan: I discussed his ongoing treatment recommendations. No debridements from his wound is healed. He was reassured no local signs of infection are noted today. To continue to offload the recently healed ulcer with a non pneumatic cam walker with dual density offloading pocket. Continued compliance was encouraged. Continue nonweightbearing status with crutches. I recommend nutritional supplementation to optimize healing and improved diabetic control. His updated noninvasive vascular studies were reviewed as abnormal to the left lower extremity with an TRISH of approximately 0.5. I also ordered venous reflux studies to rule out venous insufficiency which confirmed abnoralities to the left lower extremity veins. He is scheduled for further evaluation and intervention with Dr. Shannon next week and I advised him to proceed. This is scheduled for August 25 2017. He understands he is at risk for delayed healing and limb loss. I answered all his questions. I recommend he follows up in 2 week or call sooner if he has any questions or concerns. All signs and symptoms of local and systemic infection were discussed with the patient and he was instructed to go to the emergency room should he notice any of these.
== END 2017-08-19 23:59 ==
LOC: WC 10:30
PROVIDERS: Family Provider Internal Medicine; PCP Internal Medicine; Visit Provider Podiatrist
DX: E11.621 Type 2 diabetes mellitus with foot ulcer (principal); E11.42 Type 2 diabetes mellitus with diabetic polyneuropathy; E11.51 Type 2 diabetes mellitus with diabetic peripheral angiopathy without gangrene; M24.572 Contracture, left ankle; L97.522 Non-pressure chronic ulcer of other part of 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
CPT/HCPCS: 11042; 15275; Q4131

== ENCOUNTER 2017-08-30 08:51 | Outpatient (RCR) | payer OTHER, SELFPAY ==
[2017-08-20 00:49] VITALS: BP 152/78; PULSE 79; RESP 18; TEMP 37
[2017-08-30 09:48] VITALS: BP 118/57; PULSE 51; RESP 18; TEMP 36.1
--- NOTE | 2017-08-30 12:32 | PCM.WC.PN ---
(1) Chronic 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 Status: Resolved Current Visit: Yes Code(s): L97.522 - Non-pressure chronic ulcer of other part of 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 (2) Other specified peripheral vascular diseases Status: Chronic Current Visit: Yes Code(s): I73.89 - Other specified peripheral vascular diseases (3) Type 2 diabetes mellitus with diabetic polyneuropathy Status: Chronic Current Visit: Yes Code(s): E11.42 - Type 2 diabetes mellitus with diabetic polyneuropathy Type of Wound Date of Service: 08/30/17 Chief Complaint: Left foot ulcer healed History of Wound: This 57-year-old male with multiple comorbidities presents to the wound healing center for follow-up of the left heel ulcer. He had vascular surgery intervention performed last week and is doing well. He continues to wear he denies redness or odor. He denies drainage and thinks the wound is healed. He continues with cam walker. He is already scheduled at the foot and ankle center for routine care. Progress of Wound: Healed - Physical Exam Vital Signs Temp Pulse Resp BP 96.9 F L 51 L 18 118/57 L 08/30/17 09:48 08/30/17 09:48 08/30/17 09:48 08/30/17 09:48 General: Alert, Oriented x3, Cooperative Extremities: No cyanosis, Capillary Refill Less than 3 Seconds, No Calf Tenderness - Negative Jeronimo and Rutledge sign bilateral, Diminished Peripheral Pulses, Edema - Mild Skin: Ulcer/ Wound - No purulence, erythema, streaking, no odor, no infection. The wound has healed and there is full epithelialization. His peripheral skin is atrophic. Wound Measurements and Assessment WC - Nurse 1 - General Ulcer Measurement Start: 08/30/17 09:48 Freq: Status: Active Protocol: Activity Type Activity Date Activity User E-Sign Co-Sign Detail Recorded Client Recorded Date Recorded By Document 08/30/17 09:48 [id number] 08/30/17 09:53 08/30/17 09:48 Wound Center Nurse 1 [Ulcer Assessment] #1 Left Heel- Plantar -Current Size (cm) - Length 0.1 -Current Size (cm) - Width 0.1 -Current Size (cm) - Depth 0.1 -Total Square Cm 0.01 -Photo Taken No -Epithelialization Large 67-100% -Exudate Amt None Present (0 %) -Wound Margin Thickened -Granulation Amt Small (1-33%) -Granulation Quality Pale [place] -Necrosis Amt Small (1-33%) -Necrotic Tissue Type Adherent Slough -Structure Exposed N/A -Texture (Fiona-wound Skin Appearance) Scarring -Moisture (Fiona-wound Skin Appearance Dry/Scaly ) -Color (Fiona-wound Skin Appearance) Hemosiderin Staining -Temperature (Fiona-wound Skin No Abnormality Appearance) (Pt Warm) -Ulcer Cleansing Rinsed/ Irrigated with Saline -Foul Odor after Cleansing No -Anesthetic Used 4% Lidocaine Solution [Edema Assessment] -Left Calf (cm) 44.8 -Left Ankle (cm) 23.5 WC - Nurse 2 - General Ulcer CM Notes Start: 08/30/17 09:48 Freq: Status: Active Protocol: Activity Type Activity Date Activity User E-Sign Co-Sign Detail Recorded Client Recorded Date Recorded By Document 08/30/17 10:10 [id number] 08/30/17 10:20 08/30/17 10:10 Wound Center Nurse 2 [Procedure/Treatment] #1 Left Heel- Plantar -Time 10:10 -Correct Patient Yes -Correct Side, Site, Position Yes -Correct Procedure Yes -Procedure Performed Yes -Post Debridement Size (cm) - Length 0 -Post Debridement Size (cm) - Width 0 -Post Debridement Size (cm) - Depth 0 -Total Square Cm 0 -Wound/Ulcer Outcome Healed- Epithelialized -Bleeding Controlled with NA -Treatment Response Procedure Tolerated Well [See Physician Procedure note for Specifics] Pain Scale: 0-10 Numeric [Pain] -Is Patient Pain Free? Yes Musculoskeletal: No Tenderness to Palpation of Joints or Extremities, Muscle Wasting Neurological: - - Lack of epicritic sensation light touch Psych/Mental Status: Normal Affect, Appropriate Debridement Note Post-Debridement Measurements/Treatment - Nurse 2 - General Ulcer CM Notes Start: 08/30/17 09:48 Freq: Status: Active Protocol: Activity Type Activity Date Activity User E-Sign Co-Sign Detail Recorded Client Recorded Date Recorded By Document 08/30/17 10:10 [id number] 08/30/17 10:20 08/30/17 10:10 Wound Center Nurse 2 #1 Left Heel- Plantar -Time 10:10 -Correct Patient Yes -Correct Side, Site, Position Yes -Correct Procedure Yes -Procedure Performed Yes -Post Debridement Size (cm) - Length 0 -Post Debridement Size (cm) - Width 0 -Post Debridement Size (cm) - Depth 0 -Total Square Cm 0 -Wound/Ulcer Outcome Healed- Epithelialized -Bleeding Controlled with NA -Treatment Response Procedure Tolerated Well Pain Scale: 0-10 Numeric Is Patient Pain Free? Yes No debridement was completed today - The wound has healed Assessment/Plan Active Problems Other specified peripheral vascular diseases (Chronic) Type 2 diabetes mellitus with diabetic polyneuropathy (Chronic) Assessment: Type 2 diabetes, uncontrolled with neuropathy, venous insufficiency, ulcer of left plantar foot healed today, obesity, peripheral vascular disease Plan: I discussed his ongoing treatment recommendations. No debridements from his wound is healed. He was reassured no local signs of infection are noted today. To continue to offload the recently healed ulcer with a non pneumatic cam walker with dual density offloading pocket and progressing to extra-depth diabetic shoes cautiously this next week. A work note was provided for him to return to work in 1-1/2 weeks per request. To discontinue dressing and nutritional supplementation because the wound has healed. His updated noninvasive vascular studies were reviewed as abnormal to the left lower extremity with an TRISH of approximately 0.5. I also ordered venous reflux studies to rule out venous insufficiency which confirmed abnoralities to the left lower extremity veins. He completed intervention with Dr. Shannon last week and this went as planned on August 25 2017. He understands he is at risk for delayed healing and limb loss. I answered all his questions. He is discharged from the wound care center at this time and will follow-up at the foot and ankle center as scheduled for other palliative care risk assessments. To continue to monitor lower extremities daily to look for reoccurring wound or infection.
--- NOTE | 2017-08-30 12:37 | PN.PCM_ITS ---
(1) Chronic 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 Status: Resolved Current Visit: Yes Code(s): L97.522 - Non-pressure chronic ulcer of other part of 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 (2) Other specified peripheral vascular diseases Status: Chronic Current Visit: Yes Code(s): I73.89 - Other specified peripheral vascular diseases (3) Type 2 diabetes mellitus with diabetic polyneuropathy Status: Chronic Current Visit: Yes Code(s): E11.42 - Type 2 diabetes mellitus with diabetic polyneuropathy Type of Wound Date of Service: 08/30/17 Chief Complaint: Left foot ulcer healed History of Wound: This 57-year-old male with multiple comorbidities presents to the wound healing center for follow-up of the left heel ulcer. He had vascular surgery intervention performed last week and is doing well. He continues to wear he denies redness or odor. He denies drainage and thinks the wound is healed. He continues with cam walker. He is already scheduled at the foot and ankle center for routine care. Progress of Wound: Healed - Physical Exam Vital Signs Temp Pulse Resp BP 96.9 F L 51 L 18 118/57 L 08/30/17 09:48 08/30/17 09:48 08/30/17 09:48 08/30/17 09:48 General: Alert, Oriented x3, Cooperative Extremities: No cyanosis, Capillary Refill Less than 3 Seconds, No Calf Tenderness - Negative Jeronimo and Rutledge sign bilateral, Diminished Peripheral Pulses, Edema - Mild Skin: Ulcer/ Wound - No purulence, erythema, streaking, no odor, no infection. The wound has healed and there is full epithelialization. His peripheral skin is atrophic. Wound Measurements and Assessment WC - Nurse 1 - General Ulcer Measurement Start: 08/30/17 09:48 Freq: Status: Active Protocol: Activity Type Activity Date Activity User E-Sign Co-Sign Detail Recorded Client Recorded Date Recorded By Document 08/30/17 09:48 [id number] 08/30/17 09:53 08/30/17 09:48 Wound Center Nurse 1 [Ulcer Assessment] #1 Left Heel- Plantar -Current Size (cm) - Length 0.1 -Current Size (cm) - Width 0.1 -Current Size (cm) - Depth 0.1 -Total Square Cm 0.01 -Photo Taken No -Epithelialization Large 67-100% -Exudate Amt None Present (0 %) -Wound Margin Thickened -Granulation Amt Small (1-33%) -Granulation Quality Pale [place] -Necrosis Amt Small (1-33%) -Necrotic Tissue Type Adherent Slough -Structure Exposed N/A -Texture (Fiona-wound Skin Appearance) Scarring -Moisture (Fiona-wound Skin Appearance Dry/Scaly ) -Color (Fiona-wound Skin Appearance) Hemosiderin Staining -Temperature (Fiona-wound Skin No Abnormality Appearance) (Pt Warm) -Ulcer Cleansing Rinsed/ Irrigated with Saline -Foul Odor after Cleansing No -Anesthetic Used 4% Lidocaine Solution [Edema Assessment] -Left Calf (cm) 44.8 -Left Ankle (cm) 23.5 WC - Nurse 2 - General Ulcer CM Notes Start: 08/30/17 09:48 Freq: Status: Active Protocol: Activity Type Activity Date Activity User E-Sign Co-Sign Detail Recorded Client Recorded Date Recorded By Document 08/30/17 10:10 [id number] 08/30/17 10:20 08/30/17 10:10 Wound Center Nurse 2 [Procedure/Treatment] #1 Left Heel- Plantar -Time 10:10 -Correct Patient Yes -Correct Side, Site, Position Yes -Correct Procedure Yes -Procedure Performed Yes -Post Debridement Size (cm) - Length 0 -Post Debridement Size (cm) - Width 0 -Post Debridement Size (cm) - Depth 0 -Total Square Cm 0 -Wound/Ulcer Outcome Healed- Epithelialized -Bleeding Controlled with NA -Treatment Response Procedure Tolerated Well [See Physician Procedure note for Specifics] Pain Scale: 0-10 Numeric [Pain] -Is Patient Pain Free? Yes Musculoskeletal: No Tenderness to Palpation of Joints or Extremities, Muscle Wasting Neurological: - - Lack of epicritic sensation light touch Psych/Mental Status: Normal Affect, Appropriate Debridement Note Post-Debridement Measurements/Treatment - Nurse 2 - General Ulcer CM Notes Start: 08/30/17 09:48 Freq: Status: Active Protocol: Activity Type Activity Date Activity User E-Sign Co-Sign Detail Recorded Client Recorded Date Recorded By Document 08/30/17 10:10 [id number] 08/30/17 10:20 08/30/17 10:10 Wound Center Nurse 2 #1 Left Heel- Plantar -Time 10:10 -Correct Patient Yes -Correct Side, Site, Position Yes -Correct Procedure Yes -Procedure Performed Yes -Post Debridement Size (cm) - Length 0 -Post Debridement Size (cm) - Width 0 -Post Debridement Size (cm) - Depth 0 -Total Square Cm 0 -Wound/Ulcer Outcome Healed- Epithelialized -Bleeding Controlled with NA -Treatment Response Procedure Tolerated Well Pain Scale: 0-10 Numeric Is Patient Pain Free? Yes No debridement was completed today - The wound has healed Assessment/Plan Active Problems Other specified peripheral vascular diseases (Chronic) Type 2 diabetes mellitus with diabetic polyneuropathy (Chronic) Assessment: Type 2 diabetes, uncontrolled with neuropathy, venous insufficiency , ulcer of left plantar foot healed today, obesity, peripheral vascular disease Plan: I discussed his ongoing treatment recommendations. No debridements from his wound is healed. He was reassured no local signs of infection are noted today. To continue to offload the recently healed ulcer with a non pneumatic cam walker with dual density offloading pocket and progressing to extra-depth diabetic shoes cautiously this next week. A work note was provided for him to return to work in 1-1/2 weeks per request. To discontinue dressing and nutritional supplementation because the wound has healed. His updated noninvasive vascular studies were reviewed as abnormal to the left lower extremity with an TRISH of approximately 0.5. I also ordered venous reflux studies to rule out venous insufficiency which confirmed abnoralities to the left lower extremity veins. He completed intervention with Dr. Shannon last week and this went as planned on August 25 2017. He understands he is at risk for delayed healing and limb loss. I answered all his questions. He is discharged from the wound care center at this time and will follow-up at the foot and ankle center as scheduled for other palliative care risk assessments. To continue to monitor lower extremities daily to look for reoccurring wound or infection.
== END 2017-09-19 23:59 ==
LOC: WC 08:51
PROVIDERS: Family Provider Internal Medicine; PCP Internal Medicine; Visit Provider Podiatrist
DX: Z09 Encounter for follow-up examination after completed treatment for conditions other than malignant neoplasm (principal); E11.42 Type 2 diabetes mellitus with diabetic polyneuropathy; E11.51 Type 2 diabetes mellitus with diabetic peripheral angiopathy without gangrene; E11.65 Type 2 diabetes mellitus with hyperglycemia
CPT/HCPCS: 99213; G0463

== ENCOUNTER → 2018-02-02 17:04 | Outpatient (CLI) | payer OTHER, SELFPAY ==
--- NOTE | 2018-02-02 17:30 | MRI_ITS ---
STUDY: MRI LEFT FOOT REASON FOR EXAM: Heel pain when walking, recently treated for open wound of left heel. TECHNIQUE: Standardized fat and water weighted pulse sequences were obtained in all 3 orthogonal planes. COMPARISON: Radiographs 06/09/2017. FINDINGS: There is an osteochondral lesion of the medial talar dome (T1 sagittal image 11) measuring 0.9 x 0.7 cm (AP x transverse) with cystic change of the lesion (inversion recovery sagittal image 11). Normal posterior subtalar articulation. Normal talonavicular articulation. Normal calcaneocuboid articulation. There is a small subchondral cyst in the lateral cuneiform adjacent to the navicular-cuneiform articulations (inversion recovery sagittal image 17). Normal intercuneiform articulations. There is a small cyst in the plantar lateral aspect of the navicular (inversion recovery sagittal image 14). There is no stress fracture or osteomyelitis of the tarsal bones of the midfoot or hindfoot. Normal first tarsometatarsal articulation. Normal Lisfranc ligament. Normal second and third tarsometatarsal articulations. Normal cuboid fourth and cuboid fifth tarsometatarsal articulation. There is mild subchondral cystic change of the head of the first metatarsal (inversion recovery sagittal image 4). Otherwise, unremarkable first through fifth metatarsi. Normal tibialis anterior tendon. Normal extensor hallucis longus tendon. Normal extensor digitorum longus tendons. Normal peroneus longus tendon and distal insertion. Normal peroneus brevis tendon and distal insertion. There is atrophy with fat replacement of the abductor digiti minimi muscle (T1 sagittal images 15-18). There is chronic plantar fasciitis with thickening and an ossification in the central cord of the plantar fascia 1.6 cm distal to the calcaneal insertion (T1 sagittal images 9, 10). There is a small plantar calcaneal enthesophyte. There is intermediate T1 signal in the plantar heel pad (T1 sagittal images 9, 10) and intermediate T2 signal (T2 series 8 images 28-31), either scarring or pressure lesion. There is no soft tissue abscess. MRI/Lower Ext/No Jt/w/o IMPRESSION: Signal alteration of the plantar heel pad, either scarring or pressure lesion. Chronic plantar fasciitis. Atrophy of the abductor digiti minimi muscle. Osteochondral lesion of the medial talar dome. Electronically Signed: José Luis Delgadillo MD at 7:59 EST Tel , Service support ,
--- OUTSIDE RECORDS SUMMARY | 2018-05-09 07:25 | XMS RPT_ITS ---
:1960 Author Organization OHIP Care Team Providers Name Role Phone Yoko Oneal Attending Unavailable Talampas, Alok Primary Care Unavailable Yoko Oneal Referring Unavailable Yoko Oneal Attending Unavailable Yoko Oneal Referring Unavailable Talampas, Alok Primary Care Unavailable Fascione, Yoko Attending Unavailable Fascione, Yoko Referring Unavailable Talampas, Alok Primary Care Unavailable Brijesh Shannon A Attending Unavailable Brijesh Shannon A Referring Unavailable Talampas, Alok Primary Care Unavailable Fascione, Yoko Attending Unavailable Fascione, Yoko Referring Unavailable Talampas, Alok Primary Care Unavailable Reilly Hudson Attending Unavailable SuingReilly Referring Unavailable Talampas, Alok Primary Care Unavailable Fascione, Yoko Attending Unavailable Fascione, Yoko Referring Unavailable Talampas, Alok Primary Care Unavailable AUSTIN, ADITYA Attending Unavailable AUSTIN, ADITYA Referring Unavailable TALAMPAS, ALOK Primary Care Unavailable AUSTIN, ADITYA Attending Unavailable AUSTIN, ADITYA Referring Unavailable TALAMPAS, ALOK Primary Care Unavailable AUSTIN, ADITYA E Attending Unavailable [place]USTIN, ADITYA E Referring Unavailable [place]UST[place], ADITYA E Referring Unavailable KUPIEC, PAT (DONOR SERVICES MANAGER) Attending Unavailable [place], ADITYA E Referring Unavailable [place]USTIN, ADITYA E Referring Unavailable [place], ADITYA E Referring Unavailable TALAMPAS, ALOK D Attending Unavailable CLARKE LAO (SUPPLY CHAIN INTERN) Referring Unavailable [place], ADITYA E Referring Unavailable KUPIEC, PAT (DONOR SERVICES MANAGER) Attending Unavailable KUPIEC, PAT (DONOR SERVICES MANAGER) Referring Unavailable AUSTIN, ADITYA E Referring Unavailable AUSTIN, ADITYA E Referring Unavailable [place]USTIN, ADITYA E Referring Unavailable [place]USTIN, ADITYA E Referring Unavailable KUPIEC, PAT (DONOR SERVICES MANAGER) Attending Unavailable KUPIEC, PAT (DONOR SERVICES MANAGER) Referring Unavailable AUSTIN, ADITYA E Attending Unavailable [place]UST[place], ADITYA E Referring Unavailable TYSHAWN RICHARDSON Attending Unavailable ANVARI, EVAMARIA Referring Unavailable TALAMPAS, ALOK D Attending Unavailable OLDER, MAYRA (DAMAGE CUTTER) Attending Unavailable OLDER, MAYRA (DAMAGE CUTTER) Referring Unavailable OLDER, MAYRA (DAMAGE CUTTER) Referring Unavailable AUSTIN, ADITYA E Attending Unavailable AUSTIN, ADITYA E Referring Unavailable Brijesh Shannon. 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 [facility] 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 / [facility] Z79.01(ICD-10) Repository 04/30/2015 Active Essential (primary) NA Active [place] hypertension / [facility] I10(ICD-10) [facility] 03/28/2008 Active Mixed hyperlipidemia NA Active [place] / E78.2(ICD-10) [facility] 12/08/2017 Active Persistent atrial NA Active [place] fibrillation / [facility] I48.1(ICD-10) [facility] 08/18/2017 Active Unknown / KUPIEC, Active [place] UNK(Unknown) PAT (DONOR SERVICES MANAGER) [facility] 06/27/2017 Active Chronic atrial AUSTIN, Active [place] fibrillation / [facility] Other I48.2(ICD-10) [facility] 06/27/2017 Active Chronic diastolic [place]IN, Active [place] (congestive) heart [facility] Other failure / [facility] I50.32(ICD-10) Repository 06/27/2017 Admitting Unknown / AUSTIN, Active [facility] diagnosis K(Unknown) [facility] Repository 06/05/2017 Unknown I73.9 - Peripheral Fascione, Active [place] vascular disease, [facility] unspecified / Hospital I73.9(ICD-10) Repository 06/05/2017 Unknown I73.89 - Other Fascione, Active [place] specified peripheral [facility] vascular diseases / Hospital I73.89(ICD-10) Repository 06/05/2017 Unknown I87.2 - Venous Fascione, Active [place] insufficiency [facility] (chronic) Hospital (peripheral) / Repository I87.2(ICD-10) 04/18/2017 Active Type 2 diabetes NA Active [place] mellitus 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 chronic [place] kidney disease / Repository E11.22(ICD-10) 04/18/2017 Active Chronic kidney NA Active [place] disease, stage 4 [facility] (severe) / [facility] N18.4(ICD-10) Repository 04/18/2017 Active care home (current) NA Active [place] use of insulin / [facility] Z79.4(ICD-10) [facility] 04/18/2017 Active Type 2 diabetes NA Active [place] mellitus 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 [place] polyneuropathy / Repository E11.42(ICD-10) 04/18/2017 Active Type 2 diabetes KUPIEC, Active [place] mellitus with PAT (DONOR SERVICES MANAGER) [facility] hyperglycemia / [facility] E11.65(ICD-10) Repository 04/10/2017 Active Paroxysmal atrial NA Active [place] fibrillation / [facility] I48.0(ICD-10) [facility] PROCEDURES PROCEDURES No Procedure Records FoundRESULTS RESULTS OBSOLETE Observed: 03/09/2018 Status: COMPLETED Source: [place] 12:00 AM [facility] REPOSITORY Refill (INTMWS) MAREK RAMSAY ([id number]) 1960 M Date Time Provider Department 03/09/18 ALOK NG INTMWS During your visit today, we recorded the following information about you: Nano Michaud LPN 03/09/2018 4:17 PM Signed Patient has been identified by name and date of : Yes Pharmacy phones for refill(s): Pending Prescriptions Disp Refills BUSPIRONE 10 MG TABLET 180 tablet 3 Sig: Take 1 tablet by mouth twice daily. HARJEET: No RANITIDINE 150 MG TABLET 180 tablet 3 Sig: Take 1 tablet by mouth twice daily. HARJEET: No Date of last office visit in primary care: 02/22/18 Last 2 Encounter Wt Readings: Date: Wt: 03/06/2018 147 kg (324 lb) 02/22/2018 147.4 kg (325 lb) Previous labs/tests for medication: Not applicable Please advise. Thank you. Nano Ng MD 03/10/2018 12:20 PM Signed ok Allergies As of Date: 03/09/2018 Noted Allergy Reaction CEPHALEXIN 10/20/2004 2 - Rash 7 - Swelling PENICILLINS 10/20/2004 16 - Unknown Comments: childhood Date Reviewed: 03/06/2018 Reviewed by: Josy Townsend MA - Fully Assessed Reason for Visit: Refill Request [94] Order(s):busPIRone (BUSPAR) 10 mg tabletTake 1 tablet by mouth twice daily.Disp: 180 tabletRfl: 3 ranitidine (ZANTAC) 150 mg tabletTake 1 tablet by mouth twice daily.Disp: 180 tabletRfl: 3 Prescriptions as of 03/09/2018 Sig: BUSPIRONE 10 MG TABLET Take 1 tablet by mouth twice * RANITIDINE 150 MG TABLET Take 1 tablet by mouth twice * COENZYME Q10 100 MG CAPSULE Take 1 capsule by mouth once * PRAVASTATIN 80 MG TABLET TAKE 1 TABLET DAILY GABAPENTIN 600 MG TABLET Take 1 tablet by mouth twice * NIFEDIPINE ER 90 MG TABLET,EX* Take 1 tablet by mouth daily * INSULIN NPH ISOPHANE U-100 HU* INJECT 10 UNITS UNDER THE SKI* BD ULTRA-FINE MINI PEN NEEDLE* USE WITH INSULIN PENS ONCE DA* GLIPIZIDE 5 MG TABLET TAKE 1 TABLET DAILY AT DINNER* FUROSEMIDE 40 MG TABLET TAKE 1 TABLET DAILY VENLAFAXINE ER 150 MG CAPSULE* TAKE 1 CAPSULE DAILY WARFARIN 5 MG TABLET Take 2 tablets by mouth once * WARFARIN 1 MG TABLET Take 3 tablets by mouth once * CARVEDILOL 12.5 MG TABLET TAKE 1 TABLET TWICE A DAY DICYCLOMINE 20 MG TABLET TAKE 1 TABLET THREE TIMES A D* CARVEDILOL 25 MG TABLET TAKE 1 TABLET TWICE A DAY (TA* PSYLLIUM SEED (SUGAR) ORAL PO* Take 1 Tablespoonful by mouth* CHOLECALCIFEROL (VITAMIN D3) * Take 1 tablet by mouth once d* VITAMIN D-3 ORAL Take 1 tablet by mouth once d* WARFARIN 5 MG TABLET Alternating 12 mg every other* MULTIVITAMIN TABLET Take one(1) tablet daily. Problem List As Of Date 03/09/2018 Noted Resolved BMI 50.0-59.9, adult ([facility]) [Z68.43] INVALID FOR* Cellulitis and abscess of leg, except foot [L03*INVALID FOR*04/05/2013 Phlebitis and thrombophlebitis of superficial v*INVALID FOR*04/05/2013 Recurrent major depression in remission ([facility]) [*INVALID FOR* Type 2 diabetes mellitus with proteinuria or mi*INVALID FOR*09/18/2013 Venous (peripheral) insufficiency [I87.2] More... MIXED HYPERLIPIDEMIA [E78.2] INVALID FOR* Panic disorder with agoraphobia [F40.01] Leg cramps [R25.2] INVALID FOR* More... Uncontrolled hypertension [I10] INVALID FOR* Diverticulum of bladder [N32.3] INVALID FOR* Unspecified venous (peripheral) insufficiency [* More... Proteinuria [R80.9] INVALID FOR* Atrial fibrillation (HCC) [I48.91] More... 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 RANITIDINE 150 MG TABLET 180 * 3 03/10/2018 Route: ORAL Sig: Take 1 tablet by mouth twice daily. Medications Discontinued During This Encounter busPIRone (BUSPAR) 10 mg tablet 180 * 3 01/31/2017 03/10/2018 Route: ORAL Sig: Take 1 tablet by mouth twice daily. Disc: Reason for discontinue is not on file. ranitidine (ZANTAC) 150 mg tablet 180 * 3 05/05/2017 03/10/2018 Sig: TAKE 1 TABLET TWICE A DAY Disc: Reason for discontinue is not on file. Encounter Status:Closed by ALOK NG MD on 03/10/18 CNOV Observed: 03/06/2018 Status: COMPLETED Source: [place] 10:00 AM [facility] REPOSITORY Office Visit (CAWSTR) MAREK RAMSAY ([id number]) 1960 M Date Time Provider Department 03/06/18 10:00 AM ADITYA AVILA [facility] During your visit today, we recorded the following information about you: Pulse Blood pressure Weight Height 87/minute 153/83 147 kg 1.727 m Aditya Avila MD 03/06/2018 10:08 AM Signed PERTINENT CARDIAC HISTORY Atrial fibrillation CRF HTN HL DM Intolerant of SRINIVASA-I/arb - hyperkalemia CHF - diastolic ARRON ADHERENCE TO GUIDELINES SRINIVASA-I or ARB for HF with prior LVEF<40 (NQF 0081) - N/A ASA or Plavix for ASHD (NQF 0067) - N/A Beta ashlee for ASHD with prior OK or prior LVEF<40 (NQF 0070) - N/A Beta ashlee for HF with prior LVEF<40 (NQF 0083) - N/A SRINIVASA-I or ARB for ASHD with DM or prior LVEF<40 (NQF 0066) - hyperkalemia, CRF Statin therapy for ASHD or FHL or DM - met BMI documented and plan if >25 (NQF 0421) - lifestyle recommendation form Tobacco use screening and referral (NQF 0028) - lifestyle recommendation form Recommendation for whole food, plant based diet - lifestyle recommendation form CLINICAL IMPRESSION/PLAN: Marek Ramsay has no evidence of volume overload. He does not appear to be particularly dehydrated. There is no evidence of myositis. Recent echocardiogram was reviewed. Left ventricular function is normal. There is diastolic dysfunction. Sleep study has not yet been performed. He is again reminded that this is an important part of his treatment. We cannot consider rhythm control until this is take care of. I have no good explanation for his symptoms, although it is possible that this is as an ischemic equivalent or possibly due to inappropriate bradycardia. I recommend that we begin with Lexiscan nuclear stress test. He would not be able to walk on a treadmill. If his stress test does not show evidence of ischemia, I recommend extended monitoring to see if there is a correlation between his symptoms and bradycardia. I will see him as scheduled. Written and verbal health teaching given to patient, patient verbalizes understanding and agrees with treatment plan. DIAGNOSIS FOR VISIT: Atrial flutter CHF HISTORY OF PRESENT ILLNESS Marek Ramsay returns for problem follow-up visit. He reports that he is having episodes where he has heaviness of the arms and legs and loses energy. He denies chest tightness per se. There is no associated symptom of palpitation. He denies orthopnea. He's had stable, chronic morning edema. He's had no syncope or near syncope. He denies TIAs, amaurosis and claudication. He is unaware of his heart rhythm. He is nearing the time when dialysis will need to be considered, although there have been no definite plans for access placement. He was recently seen by nephrology and his calcium ashlee was increased. There has been no change made in his beta ashlee therapy. He is on a statin, but reports no chronic muscle aching. ALLERGIES: ALLERGIES Allergen Reactions - Cephalexin Rash, Swelling - Penicillins Unknown childhood CURRENT OUTPATIENT MEDICATIONS: coenzyme Q10 (COENZYME Q-10) 100 mg cap capsule Take 1 capsule by mouth once daily. pravastatin (PRAVACHOL) 80 mg tablet TAKE 1 TABLET DAILY gabapentin (NEURONTIN) 600 mg tablet Take 1 tablet by mouth twice daily. NIFEdipine ER (PROCARDIA XL) 90 mg 24 hr tablet Take 1 tablet by mouth daily at bedtime. Insulin NPH human (HUMULIN N NPH INSULIN KWIKPEN) 100 unit/mL (3 mL) inpn injection pen INJECT 10 UNITS UNDER THE SKIN DAILY AT BEDTIME BD ULTRAFINE III MINI PEN 31 gauge x 05/05 ndle USE WITH INSULIN PENS ONCE DAILY glipiZIDE (GLUCOTROL) 5 mg tablet TAKE 1 TABLET DAILY AT DINNER (DISCONTINUE GLIMEPIRIDE) furosemide (LASIX) 40 mg tablet TAKE 1 TABLET DAILY venlafaxine ER (EFFEXOR XR) 150 mg 24 hr capsule TAKE 1 CAPSULE DAILY warfarin (COUMADIN) 5 mg tablet Take 2 tablets by mouth once daily. Or as directed warfarin (COUMADIN) 1 mg tablet Take 3 tablets by mouth once daily. Or as directed carvedilol (COREG) 12.5 mg tablet TAKE 1 TABLET TWICE A DAY dicyclomine (BENTYL) 20 mg tablet TAKE 1 TABLET THREE TIMES A DAY BEFORE MEALS ranitidine (ZANTAC) 150 mg tablet TAKE 1 TABLET TWICE A DAY carvedilol (COREG) 25 mg tablet TAKE 1 TABLET TWICE A DAY (TAKE WITH 12.5MG TWICE A DAY FOR A TOTAL OF 37.5MG TWICE A DAY) busPIRone (BUSPAR) 10 mg tablet Take 1 tablet by mouth twice daily. Psyllium Seed-Sucrose (METAMUCIL, SUGAR,) powd Take 1 Tablespoonful by mouth as needed. Cholecalciferol, Vitamin D3, 5,000 unit tab Take 1 tablet by mouth once daily. CALCIUM CARBONATE/VITAMIN D3 (VITAMIN D-3 ORAL) Take 1 tablet by mouth once daily. warfarin (COUMADIN) 5 mg tablet Alternating 12 mg every other day with 13 mg every other day (Uses weekly box that fills every week) MULTIVITAMIN ORAL TAB Take one(1) tablet daily. PHYSICAL EXAMINATION: VITAL SIGNS: BP 153/83 Pulse 87 Ht 5' 8 (1.73m) Wt 324 lb (147.0kg) BMI 49.28 kg/(m2). Chest: Clear to auscultation. Trachea is midline. Air entry is equal. Cardiac: Irregularly irregular rhythm. S1 and S2 are normal. PMI is nondisplaced. There is a soft systolic ejection murmur. Carotids are brisk without bruits. JVP is less than 10 cm. Abdomen: Soft and nontender. There is morbid obesity. There are no pulsatile masses or bruits. No liver enlargement. Bowel sounds are active. Extremities: Chronic stasis changes with 1 plus edema. Pulses are intact and symmetrical. Recent labs were reviewed. CBC is normal. Renal function is moderately impaired, but stable. There is no evidence of prerenal azotemia. LDL was 113. CK and TSH were normal. Electronically Signed: Aditya Avila MD March 06, 2018 9:54 AM CC: MD Aditya Stallings MD 03/06/2018 9:55 AM Signed LIFESTYLE CHANGE A healthy lifestyle is the most important component of your overall treatment plan. Please give serious thought to the following areas and commit to making vice president investor relations changes. EAT A WHOLE FOOD, PLANT BASED DIET The nutrition your body gets is more important than the medicine you take. What matters most is the overall way you eat. We encourage you to minimize the use of animal products (which include dairy and all meats except fatty fish) and use whole, unprocessed plant foods to provide your protein, vitamins and other nutrients. We have a lot of information to share with you on this topic. This is not a diet. It is a way of life that you will keep with you. EXERCISE REGULARLY It is not important to spend hours in the gym, lifting weights and perspiring heavily. A total of 2-3 hours per week of aerobic (causing you to be moderately short of breath) exercise is sufficient to improve your health. Talk to us before you begin a new exercise program, if you have heart disease or experience shortness of breath or chest pain. REDUCE STRESS Chronic emotional and physical stress leads to disease. Ways of reducing stress include meditation, visualization, prayer, yoga and other forms of relaxation therapy. Consistency is the cheng. Find a technique that works for you and do it every day. CULTIVATE RELATIONSHIPS Loneliness and isolation have a major negative impact on health. Seek out others who can love, care for and nurture you. Avoid hurtful relationships. MAINTAIN IDEAL BODY WEIGHT The best way to do this is to do all the things above. Our bodies naturally find the right weight if we keep moving and feed ourselves the right food. If your BMI is greater than 25, we strongly recommend a referral to a weight management program. Please speak to us or your family physician about available programs. AVOID NICOTINE IN ALL FORMS This includes all tobacco products, whether chewed, smoked, vaped, or rubbed on the skin. Smoking cessation programs, which can make use of tobacco substitutes, medications to suppress cravings and behavior management, are available. Please contact your family physician about programs in your area. Referring Provider: ADITYA AVILA [[id number]] Allergies As of Date: 03/06/2018 Noted Allergy Reaction CEPHALEXIN 10/20/2004 2 - Rash 7 - Swelling PENICILLINS 10/20/2004 16 - Unknown Comments: childhood Date Reviewed: 03/06/2018 Reviewed by: Josy Townsend MA - Fully Assessed Reason for Visit: Established Patient [175] Primary Visit Diagnosis:ASHD (arteriosclerotic heart disease) [I25.10] Other Visit Diagnosis:PAF (paroxysmal atrial fibrillation) ([facility]) [I48.0] Order(s):IV DISCONTINUE [[id number]] Order #: [id number]: 1 INSERT IV ([place]) [[id number]] Order #: [id number]: 1 regadenoson (LEXISCAN) 0.4 mg/5 mL syrgInject 5 mL intravenously one time only for 1 dose. Give IV push over 10 seconds and follow with 5 ml of normal salineDisp: 5 mLRfl: 0 NM CARDIAC PERF STRESS/PHARM [[id number]] Order #: [id number] Prescriptions as of 03/06/2018 Sig: COENZYME Q10 100 MG CAPSULE Take 1 capsule by mouth once * PRAVASTATIN 80 MG TABLET TAKE 1 TABLET DAILY GABAPENTIN 600 MG TABLET Take 1 tablet by mouth twice * NIFEDIPINE ER 90 MG TABLET,EX* Take 1 tablet by mouth daily * INSULIN NPH ISOPHANE U-100 HU* INJECT 10 UNITS UNDER THE SKI* BD ULTRA-FINE MINI PEN NEEDLE* USE WITH INSULIN PENS ONCE DA* GLIPIZIDE 5 MG TABLET TAKE 1 TABLET DAILY AT DINNER* FUROSEMIDE 40 MG TABLET TAKE 1 TABLET DAILY VENLAFAXINE ER 150 MG CAPSULE* TAKE 1 CAPSULE DAILY WARFARIN 5 MG TABLET Take 2 tablets by mouth once * WARFARIN 1 MG TABLET Take 3 tablets by mouth once * CARVEDILOL 12.5 MG TABLET TAKE 1 TABLET TWICE A DAY DICYCLOMINE 20 MG TABLET TAKE 1 TABLET THREE TIMES A D* RANITIDINE 150 MG TABLET TAKE 1 TABLET TWICE A DAY CARVEDILOL 25 MG TABLET TAKE 1 TABLET TWICE A DAY (TA* BUSPIRONE 10 MG TABLET Take 1 tablet by mouth twice * PSYLLIUM SEED (SUGAR) ORAL PO* Take 1 Tablespoonful by mouth* CHOLECALCIFEROL (VITAMIN D3) * Take 1 tablet by mouth once d* VITAMIN D-3 ORAL Take 1 tablet by mouth once d* WARFARIN 5 MG TABLET Alternating 12 mg every other* MULTIVITAMIN TABLET Take one(1) tablet daily. REGADENOSON 0.4 MG/5 ML INTRA* Inject 5 mL intravenously one* Problem List As Of Date 03/06/2018 Noted Resolved BMI 50.0-59.9, adult (HCC) [Z68.43] INVALID FOR* Cellulitis and abscess of leg, except foot [L03*INVALID FOR*04/05/2013 Phlebitis and thrombophlebitis of superficial v*INVALID FOR*04/05/2013 Recurrent major depression in remission (HCC) [*INVALID FOR* Type 2 diabetes mellitus with proteinuria or mi*INVALID FOR*09/18/2013 Venous (peripheral) insufficiency [I87.2] More... MIXED HYPERLIPIDEMIA [E78.2] INVALID FOR* Panic disorder with agoraphobia [F40.01] Leg cramps [R25.2] INVALID FOR* More... Uncontrolled hypertension [I10] INVALID FOR* Diverticulum of bladder [N32.3] INVALID FOR* Unspecified venous (peripheral) insufficiency [* More... Proteinuria [R80.9] INVALID FOR* Atrial fibrillation (HCC) [I48.91] More... Anemia in stage 4 chronic kidney disease (HCC) * GERD (gastroesophageal reflux disease) [K21.9] Morbid obesity (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) [L97.509] INVALID FOR* Vitamin D deficiency, unspecified [E55.9] INVALID FOR* Congestive heart failure (HCC) [I50.9] INVALID FOR* CKD (chronic kidney disease) stage 4, GFR 15-29*INVALID FOR* Secondary hyperparathyroidism of renal origin (*INVALID FOR* PAD (peripheral artery disease) (HCC) [I73.9] INVALID FOR* Bilateral leg edema [R60.0] INVALID FOR* Other instructions from your clinician: LIFESTYLE CHANGE A healthy lifestyle is the most important component of your overall treatment plan. Please give serious thought to the following areas and commit to making vice president investor relations changes. EAT A WHOLE FOOD, PLANT BASED DIET The nutrition your body gets is more important than the medicine you take. What matters most is the overall way you eat. We encourage you to minimize the use of animal products (which include dairy and all meats except fatty fish) and use whole, unprocessed plant foods to provide your protein, vitamins and other nutrients. We have a lot of information to share with you on this topic. This is not a diet. It is a way of life that you will keep with you. EXERCISE REGULARLY It is not important to spend hours in the gym, lifting weights and perspiring heavily. A total of 2-3 hours per week of aerobic (causing you to be moderately short of breath) exercise is sufficient to improve your health. Talk to us before you begin a new exercise program, if you have heart disease or experience shortness of breath or chest pain. REDUCE STRESS Chronic emotional and physical stress leads to disease. Ways of reducing stress include meditation, visualization, prayer, yoga and other forms of relaxation therapy. Consistency is the cheng. Find a technique that works for you and do it every day. CULTIVATE RELATIONSHIPS Loneliness and isolation have a major negative impact on health. Seek out others who can love, care for and nurture you. Avoid hurtful relationships. MAINTAIN IDEAL BODY WEIGHT The best way to do this is to do all the things above. Our bodies naturally find the right weight if we keep moving and feed ourselves the right food. If your BMI is greater than 25, we strongly recommend a referral to a weight management program. Please speak to us or your family physician about available programs. AVOID NICOTINE IN ALL FORMS This includes all tobacco products, whether chewed, smoked, vaped, or rubbed on the skin. Smoking cessation programs, which can make use of tobacco substitutes, medications to suppress cravings and behavior management, are available. Please contact your family physician about programs in your area. Prescriptions ordered this encounter Disp Refills Start End REGADENOSON 0.4 MG/5 ML INTRAVENOUS * 5 mL 0 03/06/2018 03/06/2018 Class: In Office Route: INTRAVENOUS Sig: Inject 5 mL intravenously one time only for 1 dose. Give IV push over 10 seconds and follow with 5 ml of normal saline Medications Discontinued During This Encounter perflutren lipid microspheres (DEFIN* 1.3 * 0 02/23/2018 03/06/2018 Class: In Office Route: INTRAVENOUS Sig: Inject 1.3 mL intravenously as directed. Disc: Reason for discontinue is not on file. Follow-up and Disposition History Recorded Encounter Status:Closed by ADITYA AVILA MD on 03/06/18 PROGRESS Observed: 03/06/2018 Status: COMPLETED Source: [place] 9:54 AM [facility] [place] REPOSITORY HNO ID: [id number] Author: Aditya Avila Service: (none) Author Type: Physician Type: Progress Notes Filed: 03/06/2018 10:08 AM Note Text: PERTINENT CARDIAC HISTORY Atrial fibrillation CRF HTN HL DM Intolerant of SRINIVASA-I/arb - hyperkalemia CHF - diastolic ARRON ADHERENCE TO GUIDELINES SRINIVASA-I or ARB for HF with prior LVEF<40 (NQF 0081) - N/A ASA or Plavix for ASHD (NQF 0067) - N/A Beta ashlee for ASHD with prior OK or prior LVEF<40 (NQF 0070) - N/A Beta ashlee for HF with prior LVEF<40 (NQF 0083) - N/A SRINIVASA-I or ARB for ASHD with DM or prior LVEF<40 (NQF 0066) - hyperkalemia, CRF Statin therapy for ASHD or FHL or DM - met BMI documented and plan if >25 (NQF 0421) - lifestyle recommendation form Tobacco use screening and referral (NQF 0028) - lifestyle recommendation form Recommendation for whole food, plant based diet - lifestyle recommendation form CLINICAL IMPRESSION/PLAN: Marek Ramsay has no evidence of volume overload. He does not appear to be particularly dehydrated. There is no evidence of myositis. Recent echocardiogram was reviewed. Left ventricular function is normal. There is diastolic dysfunction. Sleep study has not yet been performed. He is again reminded that this is an important part of his treatment. We cannot consider rhythm control until this is take care of. I have no good explanation for his symptoms, although it is possible that this is as an ischemic equivalent or possibly due to inappropriate bradycardia. I recommend that we begin with Lexiscan nuclear stress test. He would not be able to walk on a treadmill. If his stress test does not show evidence of ischemia, I recommend extended monitoring to see if there is a correlation between his symptoms and bradycardia. I will see him as scheduled. Written and verbal health teaching given to patient, patient verbalizes understanding and agrees with treatment plan. DIAGNOSIS FOR VISIT: Atrial flutter CHF HISTORY OF PRESENT ILLNESS Marek Ramsay returns for problem follow-up visit. He reports that he is having episodes where he has heaviness of the arms and legs and loses energy. He denies chest tightness per se. There is no associated symptom of palpitation. He denies orthopnea. He's had stable, chronic morning edema. He's had no syncope or near syncope. He denies TIAs, amaurosis and claudication. He is unaware of his heart rhythm. He is nearing the time when dialysis will need to be considered, although there have been no definite plans for access placement. He was recently seen by nephrology and his calcium ashlee was increased. There has been no change made in his beta ashlee therapy. He is on a statin, but reports no chronic muscle aching. ALLERGIES: ALLERGIES Allergen Reactions - Cephalexin Rash, Swelling - Penicillins Unknown childhood CURRENT OUTPATIENT MEDICATIONS: coenzyme Q10 (COENZYME Q-10) 100 mg cap capsule Take 1 capsule by mouth once daily. pravastatin (PRAVACHOL) 80 mg tablet TAKE 1 TABLET DAILY gabapentin (NEURONTIN) 600 mg tablet Take 1 tablet by mouth twice daily. NIFEdipine ER (PROCARDIA XL) 90 mg 24 hr tablet Take 1 tablet by mouth daily at bedtime. Insulin NPH human (HUMULIN N NPH INSULIN KWIKPEN) 100 unit/mL (3 mL) inpn injection pen INJECT 10 UNITS UNDER THE SKIN DAILY AT BEDTIME BD ULTRAFINE III MINI PEN 31 gauge x 3/16 ndle USE WITH INSULIN PENS ONCE DAILY glipiZIDE (GLUCOTROL) 5 mg tablet TAKE 1 TABLET DAILY AT DINNER (DISCONTINUE GLIMEPIRIDE) furosemide (LASIX) 40 mg tablet TAKE 1 TABLET DAILY venlafaxine ER (EFFEXOR XR) 150 mg 24 hr capsule TAKE 1 CAPSULE DAILY warfarin (COUMADIN) 5 mg tablet Take 2 tablets by mouth once daily. Or as directed warfarin (COUMADIN) 1 mg tablet Take 3 tablets by mouth once daily. Or as directed carvedilol (COREG) 12.5 mg tablet TAKE 1 TABLET TWICE A DAY dicyclomine (BENTYL) 20 mg tablet TAKE 1 TABLET THREE TIMES A DAY BEFORE MEALS ranitidine (ZANTAC) 150 mg tablet TAKE 1 TABLET TWICE A DAY carvedilol (COREG) 25 mg tablet TAKE 1 TABLET TWICE A DAY (TAKE WITH 12.5MG TWICE A DAY FOR A TOTAL OF 37.5MG TWICE A DAY) busPIRone (BUSPAR) 10 mg tablet Take 1 tablet by mouth twice daily. Psyllium Seed-Sucrose (METAMUCIL, SUGAR,) powd Take 1 Tablespoonful by mouth as needed. Cholecalciferol, Vitamin D3, 5,000 unit tab Take 1 tablet by mouth once daily. CALCIUM CARBONATE/VITAMIN D3 (VITAMIN D-3 ORAL) Take 1 tablet by mouth once daily. warfarin (COUMADIN) 5 mg tablet Alternating 12 mg every other day with 13 mg every other day (Uses weekly box that fills every week) MULTIVITAMIN ORAL TAB Take one(1) tablet daily. PHYSICAL EXAMINATION: VITAL SIGNS: BP 153/83 Pulse 87 Ht 5' 8 (1.73m) Wt 324 lb (147.0kg) BMI 49.28 kg/(m2). Chest: Clear to auscultation. Trachea is midline. Air entry is equal. Cardiac: Irregularly irregular rhythm. S1 and S2 are normal. PMI is nondisplaced. There is a soft systolic ejection murmur. Carotids are brisk without bruits. JVP is less than 10 cm. Abdomen: Soft and nontender. There is morbid obesity. There are no pulsatile masses or bruits. No liver enlargement. Bowel sounds are active. Extremities: Chronic stasis changes with 1 plus edema. Pulses are intact and symmetrical. Recent labs were reviewed. CBC is normal. Renal function is moderately impaired, but stable. There is no evidence of prerenal azotemia. LDL was 113. CK and TSH were normal. Electronically Signed: Aditya Avila MD March 06, 2018 9:54 AM CC: Alok Ng MD PROGRESS Observed: 02/27/2018 Status: COMPLETED Source: [place] 1:04 PM [facility] REPOSITORY HNO ID: [id number] Author: Aditya Avila Service: (none) Author Type: Physician Type: Progress Notes Filed: 02/27/2018 1:33 PM Note Text: . CNOV Observed: 02/27/2018 Status: COMPLETED Source: [place] 11:00 AM [facility] REPOSITORY Office Visit (CARDWS) MAREK RAMSAY ([id number]) 1960 M Date Time Provider Department 02/27/18 11:00 AM ECHOCARDIOGRAM [facility]STR CARDWS During your visit today, we recorded the following information about you: Dinah Knight RN 02/27/2018 11:08 AM Signed #[id number] hep lock started rt ac x1 attempt, no redness swelling or bleeding noted at insertion site. Flushed with 5ml normal saline without difficulty. opsite dressing applied. Pt tolerated procedure without distress. Total of 3ml definity given and flushed with 5 ml normal saline upon completion, lot # [id number]. Pt tolerated medication without distress. Hep lock removed, catheter intact, no redness, swelling or pain at site. 2x2 gauze dressing applied with paper tape. Pt tolerated procedure without distress. Dinah Avila MD 02/27/2018 1:33 PM Signed . 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 [employer] - Fully Assessed Visit Diagnoses:Decreased exercise tolerance [R68.89] Fatigue, unspecified type [R53.83] Weakness [R53.1] Order(s):ECHO [[id number]] Order #: [id number]: 1 INSERT IV ([place]) [[id number]] Order #: [id number]: 1 IV DISCONTINUE [[id number]] Order #: [id number]: 1 perflutren lipid microspheres (DEFINITY) 1.1 mg/mL injection (to be provided with echo procedure)Inject 1.3 mL intravenously one time only for 1 dose.Disp: 1.3 mLRfl: 0 Prescriptions as of 02/27/2018 Sig: PERFLUTREN LIPID MICROSPHERES* Inject 1.3 mL intravenously o* PERFLUTREN LIPID MICROSPHERES* Inject 1.3 mL intravenously a* PRAVASTATIN 80 MG TABLET TAKE 1 TABLET DAILY GABAPENTIN 600 MG TABLET Take 1 tablet by mouth twice * NIFEDIPINE ER 90 MG TABLET,EX* Take 1 tablet by mouth daily * INSULIN NPH ISOPHANE U-100 HU* INJECT 10 UNITS UNDER THE SKI* BD ULTRA-FINE MINI PEN NEEDLE* USE WITH INSULIN PENS ONCE DA* GLIPIZIDE 5 MG TABLET TAKE 1 TABLET DAILY AT DINNER* FUROSEMIDE 40 MG TABLET TAKE 1 TABLET DAILY VENLAFAXINE ER 150 MG CAPSULE* TAKE 1 CAPSULE DAILY WARFARIN 5 MG TABLET Take 2 tablets by mouth once * WARFARIN 1 MG TABLET Take 3 tablets by mouth once * CARVEDILOL 12.5 MG TABLET TAKE 1 TABLET TWICE A DAY DICYCLOMINE 20 MG TABLET TAKE 1 TABLET THREE TIMES A D* RANITIDINE 150 MG TABLET TAKE 1 TABLET TWICE A DAY CARVEDILOL 25 MG TABLET TAKE 1 TABLET TWICE A DAY (TA* BUSPIRONE 10 MG TABLET Take 1 tablet by mouth twice * PSYLLIUM SEED (SUGAR) ORAL PO* Take 1 Tablespoonful by mouth* CHOLECALCIFEROL (VITAMIN D3) * Take 1 tablet by mouth once d* VITAMIN D-3 ORAL Take 1 tablet by mouth once d* WARFARIN 5 MG TABLET Alternating 12 mg every other* MULTIVITAMIN TABLET Take one(1) tablet daily. Problem List As Of Date 02/27/2018 Noted Resolved BMI 50.0-59.9, adult ([facility]) [Z68.43] INVALID FOR* Cellulitis and abscess of leg, except foot [L03*INVALID FOR*04/05/2013 Phlebitis and thrombophlebitis of superficial v*INVALID FOR*04/05/2013 Recurrent major depression in remission ([facility]) [*INVALID FOR* Type 2 diabetes mellitus with proteinuria or mi*INVALID FOR*09/18/2013 Venous (peripheral) insufficiency [I87.2] More... MIXED HYPERLIPIDEMIA [E78.2] INVALID FOR* Panic disorder with agoraphobia [F40.01] Leg cramps [R25.2] INVALID FOR* More... Uncontrolled hypertension [I10] INVALID FOR* Diverticulum of bladder [N32.3] INVALID FOR* Unspecified venous (peripheral) insufficiency [* More... Proteinuria [R80.9] INVALID FOR* Atrial fibrillation ([facility]) [I48.91] More... Anemia in stage 4 chronic kidney disease ([facility]) * GERD (gastroesophageal reflux disease) [K21.9] Morbid obesity (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) [L97.509] INVALID FOR* Vitamin D deficiency, unspecified [E55.9] INVALID FOR* Congestive heart failure ([facility]) [I50.9] INVALID FOR* CKD (chronic kidney disease) stage 4, GFR 15-29*INVALID FOR* Secondary hyperparathyroidism of renal origin (*INVALID FOR* PAD (peripheral artery disease) (HCC) [I73.9] INVALID FOR* Bilateral leg edema [R60.0] INVALID FOR* Visit Notes: >> Dinah Elizondo Feb 27, 2018 11:07 AM Status: Signed #[id number] hep lock started rt ac x1 attempt, no redness swelling or bleeding noted at insertion site. Flushed with 5ml normal saline without difficulty. opsite dressing applied. Pt tolerated procedure without distress. Total of 3ml definity given and flushed with 5 ml normal saline upon completion, lot # [id number]. Pt tolerated medication without distress. Hep lock removed, catheter intact, no redness, swelling or pain at site. 2x2 gauze dressing applied with paper tape. Pt tolerated procedure without distress. Dinah Knight RN Prescriptions ordered this encounter Disp Refills Start End PERFLUTREN LIPID MICROSPHERES 1.1 MG* 1.3 * 0 02/27/2018 02/27/2018 Class: In Office Route: INTRAVENOUS Sig: Inject 1.3 mL intravenously one time only for 1 dose. Follow-up and Disposition History Recorded Encounter Status:Closed by DINAH KNIGHT RN on 02/27/18 URINALYSIS WITH Collected: 02/23/2018 Status: F Source: [facility] 8:52 AM [facility] REPOSITORY TYPE CODE TESTS RESULT OUT OF RANGE REFERENCE UNITS LAB UCOL Yellow Color Yellow LAB [facility] Clear Clarity Clear LAB UGLUC Negative mg/dL Glucose, Urine Negative LAB UBIL Negative Bilirubin, Urine Negative LAB UKET Negative Ketones, Urine Negative LAB USPG 1.005-1.030 Specific [place], Ur 1.012 LAB UHGB Negative Hemoglobin/Blood, Negative Ur LAB UPH 4.5-8.0 pH 5.0 LAB UPROT Negative mg/dL Protein, Abnormal Urine 30 Alert LAB UUROB Normal Urobilinogen Normal LAB UNITR Negative Nitrites Negative LAB ULKEST Negative Leukest Abnormal 1+ Alert LAB UCOM Comments SEE COMMENT Result Comment: N/A LAB UMCOM Urine SEE [place] Comment COMMENT Result Comment: N/A LAB UWBC 0-5 /HPF WBC 0-5 LAB URBC 0-3 /HPF RBC 0-3 LAB UEPI /HPF Epithelial SEE Cells COMMENT Result Comment: Few Non-Squamous Epithelial Cells Performed By: #### UAWMIC #### [facility] [address] [place], [place] [address] Observed: 02/23/2018 Status: F Source: [place] URINE CULTURE 8:52 AM [facility] REPOSITORY Sp. Request/Comment: - Best Practice Alert: To ensure optimal transport conditions and accurate culture results transfer urine specimens to florentino top C and S preservative tube. Culture Result - No growth (<1,000 CFU/ml) Performed By: #### URCUL #### [facility] [address] [place], [place] [address] PROTIME Collected: 02/22/2018 Status: F Source: [place] 4:50 PM [facility] REPOSITORY TYPE CODE TESTS RESULT OUT OF RANGE REFERENCE UNITS LAB PSEC 9.7-13.0 sec High PT Sec 33.2 LAB INR 0.9-1.3 High PT INR 3.4 Result Comment: Vitamin K Antagonist (VKA) Therapeutic Range: INR 2 to 3 (Target INR of 2.5) Note: For patients treated with VKA drugs, such as warfarin, the [place] [employer] 2012 Guideline recommends a therapeutic INR range of 2 to 3 (target INR of 2.5). This recommendation includes high-risk patients with antiphospholipid syndrome with previous arterial or venous thromboembolism, current-generation mechanical or bioprosthetic aortic heart valve replacement. Note: Patients with mechanical aortic valve replacement and additional risk factors for thromboembolic events (atrial fibrillation, previous thromboembolism, LV dysfunction, hypercoagulable conditions) or an older generation mechanical AVR (i.e., ball in-Cage) or any mechanical MVR should have a INR therapeutic range of 2.5 to 3.5 (target INR of 3). Fabi GH, et al. Chest 2012, 141:7S-47S Los RA, et al. JAC 2017, 70: 252-289 Performed By: #### PT, CBCDIF, CK, CMP, TSH #### [facility] [address] [place], [place] [address] CBC AND DIFFERENTIAL Collected: 02/22/2018 Status: F Source: [place] 4:50 PM [facility] REPOSITORY TYPE CODE TESTS RESULT OUT OF REFERENCE UNITS RANGE LAB WBC 3.70-11.00 k/uL WBC 7.70 LAB RBC 4.20-6.00 m/uL RBC 4.31 LAB HGB 13.0-17.0 g/dL Hemoglobin 13.1 LAB HCT 39.0-51.0 % Hematocrit 39.3 LAB MCV 80.0-100.0 fL MCV 91.2 LAB MCH 26.0-34.0 pG MCH 30.4 LAB MCHC 30.5-36.0 g/dL MCHC 33.3 LAB RDWCV 11.5-15.0 % RDW-CV 12.5 LAB PLTCT 150-400 k/uL Platelet Count 217 LAB MPV 9.0-12.7 fL MPV 11.0 LAB ANEUT % Neut% 68.6 LAB AANEUT 1.45-7.50 k/uL Abs Neut 5.27 LAB ALYMP % Lymph% 20.3 LAB AALYMP 1.00-4.00 k/uL Abs Lymph 1.56 LAB AMONO % [place]% 7.9 LAB AAMONO <0.87 k/uL Abs [place] 0.61 LAB AEOS % Eosin% 2.7 LAB AAEOS <0.46 k/uL Abs Eosin 0.21 LAB ABASO % Baso% 0.5 LAB AABASO <0.11 k/uL Abs Baso 0.04 LAB AUNRBC 0 /100 WBC NRBCs 0.0 LAB ABNRBC <0.01 k/uL Absolute nRBC <0.01 LAB DTYP DTYPE Auto Diff Performed By: #### PT, CBCDIF, CK, CMP, TSH #### [address] [address] CK Collected: 02/22/2018 Status: F Source: [facility] 4:50 PM [facility] REPOSITORY TYPE CODE TESTS RESULT OUT OF RANGE REFERENCE UNITS LAB CK 51-298 U/L CK 114 Performed By: #### PT, CBCDIF, CK, CMP, TSH #### [place] [id number] [place], [place] [address] COMP METABOLIC PANEL Collected: 02/22/2018 Status: F Source: [place] 4:50 PM [facility] [place] REPOSITORY TYPE CODE TESTS RESULT OUT OF REFERENCE UNITS RANGE LAB TP 6.3-8.0 g/dL Protein, Total 7.6 LAB ALB 3.9-4.9 g/dL Albumin 4.3 LAB CA 8.5-10.2 mg/dL Calcium, Total 9.4 LAB TBIL 0.2-1.3 mg/dL Bilirubin, Total 0.2 LAB ALKP 38-113 U/L Alkaline Phosphatase 65 LAB AST 14-40 U/L AST 28 LAB GLU 74-99 mg/dL Glucose High 169 Result Comment: The [place] [employer] (ADA) provides guidance for cutoff values for fasting glucose and random glucose. The ADA defines fasting as no caloric intake for at least 8 hours. Fas ting plasma glucose results between 100 to 125 mg/dL indicate increased risk for diabetes (prediabetes). Fasting plasma glucose results greater than or equal to 126 mg/dL meet the criteria for diagnosis of diabetes. In the absence of unequivocal hyperglycemia, results should be confirmed by repeat testing. In a patient with classic symptoms of hyperglycemia or hyperglycemic crisis, random plasma glucose results greater than or equal to 200 mg/dL meet the criteria for diagnosis of diabetes. Reference: Standards of Medical Care in Diabetes 2016, [place] [employer]. Diabetes Care. 2016.39(Suppl 1). LAB BUN 9-24 mg/dL BUN High 55 LAB CRET 0.73-1.22 mg/dL Creatinine High 3.18 LAB NA 136-144 mmol/L Sodium 139 LAB K 3.7-5.1 mmol/L Potassium 4.7 LAB CL 97-105 mmol/L Chloride High 106 LAB CO2 22-30 mmol/L Low CO2 19 LAB AGAP 9-18 mmol/L Anion Gap 14 LAB ALT 10-54 U/L ALT 28 LAB GFRAA eGFR- Amer. 25 LAB GFRNAA . eGFR-All Other Races 20 Result Comment: eGFR (Estimated GFR) Units of measure: mL/min/1.73 meters squared eGFR is derived from the reexpressed MDRD Study equation using the following parameters: serum creatinine, age, gender and race. The creatinine assay has been calibrated to be traceable to IDMS. An eGFR <60 mL/min/1.73m2 for >3 months is consistent with chronic kidney disease. Refer to KDOQI guidelines for clinical interpretation. In patients with unstable renal function, e.g. those with acute kidney injury, the eGFR may not accurately reflect actual GFR. Performed By: #### PT, CBCDIF, CK, CMP, TSH #### [facility] [address] [place], [place] [address] TSH Collected: 02/22/2018 Status: F Source: [place] 4:50 PM [facility] REPOSITORY TYPE CODE TESTS RESULT OUT OF RANGE REFERENCE UNITS LAB TSH 0.400-5.500 uU/mL TSH 0.917 Performed By: #### PT, CBCDIF, CK, CMP, TSH #### [facility] [address] [place], [place] [address] ECG COMPLETE W Observed: 02/22/2018 Status: F Source: [place] INTERPRETATION 4:23 PM [facility] REPOSITORY NAME : MAREK RAMSAY PID : [id number] : 1960 Gender : Male Race : ORD : [id number] Procedure Date : Feb 22 2018 16:23:17 Edit Date : Mar 14 2018 08:36:28 Diagnosis:WARNING: INTERPRETATION OF THIS ECG, ALTHOUGH ATTEMPTED, MAY BE ADVERSELY AFFECTED BY DATA QUALITY POSSIBLE ATRIAL FIBRILLATION WITH PREMATURE VENTRICULAR COMPLEXES AND WITH VENTRICULAR ESCAPE COMPLEXES LEFT AXIS DEVIATION NONSPECIFIC INTRAVENTRICULAR BLOCK ABNORMAL ECG Confirmed by MD LAINEZ GREGORY () on 03/14/2018 8:36:22 AM Ventricular Rate : 69 BPM Atrial Rate : 91 BPM QRS Duration : 180 ms Q-T Interval : 556 ms QTC Calculation(Bezet) : 595 ms R [place] : -48 degrees T [place] : 55 degrees Test Reason : Location : 185 : [facility] Overread By : MD LAINEZ GREGORY Edited By : MD LAINEZ GREGORY Referred By : MAYRA GASTON Acquired by : OSITO DONNELLY Observed: 02/22/2018 Status: COMPLETED Source: [place] 4:20 PM [facility] REPOSITORY Office Visit (INTMWS) MAREK RAMSAY ([id number]) 1960 M Date Time Provider Department 02/22/18 4:20 PM MAYRA GASTON (EILEEN) INTMWS During your visit today, we recorded the following information about you: Temperature Pulse Respiration Blood pressure 97.6 degrees 76/minute 16/minute 128/80 Weight 147.4 kg Mayra Older, PRESENTATION SPECIALIST.EILEEN 02/23/2018 8:09 AM Signed CC: weakness HPI Marek Ramsay is a 57 year old male who presents today for weakness and heavy feeling in legs and arms that started around 02/13. Arms and legs feel heavy and achy, worsens with activity including walking and even just washing the dishes arms get tired. Symptoms have not gotten any worse. Never had this feeling before. Medications: Pravastatin-no muscle cramping. Coumadin- no unusual bleeding. Last INR 11/28, 2.4 No new medications Patient is diabetic. Average blood sugar under 200. No low blood sugars recently. Kidney disease stage 4. May need dialysis soon. No recent illnesses. REVIEW OF SYSTEMS General: no fevers, no chills, no night sweats and no recurrent infections. Weight loss of 19 lbs in one month. Patient attributes this to decreased appetite secondary to depression which has since improved. HEENT: no frequent or significant headaches, no visual changes Respiratory: no cough, no wheezing, no shortness of breath, no hemoptysis Cardiovascular: Positive for decreased exercise tolerance. History of Afib, CHF. Intermittent swelling, no worse than usual. No palpitations. No chest pain/pressure. GI: Negative for abdominal discomfort, blood in stools or black stools, diarrhea, heart burn, nausea, vomiting : Negative for dysuria, decreased stream, hematuria, hesitancy, nocturia >1 and hesitancy, Positive for urinating less frequently Musculoskeletal: Negative for joint pain or swelling Skin: Negative for lesions, rash, and itching Neurologic: no syncope, no seizures, no dizziness, no memory loss, no confusion, no numbness or tingling of hands, no numbness or tingling of feet, no involuntary movements, no tremor, no falling, no gait disturbance PAST MEDICAL HISTORY Diagnosis Date - Anemia - Atrial fibrillation (HCC) coumadin managed by cardiology - Cellulitis and abscess of leg, except foot 10/20/2004 - CHF (congestive heart failure) ([facility]) - CKD (chronic kidney disease) stage 4, GFR 15-29 ml/min ([facility]) - Depressive disorder, not elsewhere classified 10/20/2004 - Diabetes ([facility]) 10/20/2004 Type 2; retinopathy, neuropathy, CKD - DVT (deep venous thrombosis) ([facility]) - GERD (gastroesophageal reflux disease) - Mixed hyperlipidemia 03/28/2008 - Morbidly obese ([facility]) - Panic disorder with agoraphobia - Proteinuria 10/20/2004 - PVD (peripheral vascular disease) ([facility]) - Unspecified venous (peripheral) insufficiency left leg; related to superficial venous thrombosis from complications from having to have blood transfusion when baby PAST SURGICAL HISTORY Procedure Laterality Date - COLONOSCOP W/ OR W/O BRSH SPEC 08/28/2012 Colonoscopy - EGD W/O OR W/BRUSH/WASH 02/24/2016 EGD mac - PAST SURGICAL HISTORY OF Left 1991 removal of blood clot left leg; superficial - REMOVAL OF TONSILS,<12 Y/O Tonsillectomy - REVISE MEDIAN N/CARPAL TUNNEL SURG Bilateral Carpal tunnel decomp ALLERGIES Cephalexin; Penicillins MEDICATIONS pravastatin (PRAVACHOL) 80 mg tablet TAKE 1 TABLET DAILY gabapentin (NEURONTIN) 600 mg tablet Take 1 tablet by mouth twice daily. NIFEdipine ER (PROCARDIA XL) 90 mg 24 hr tablet Take 1 tablet by mouth daily at bedtime. Insulin NPH human (HUMULIN N NPH INSULIN KWIKPEN) 100 unit/mL (3 mL) inpn injection pen INJECT 10 UNITS UNDER THE SKIN DAILY AT BEDTIME BD ULTRAFINE III MINI PEN 31 gauge x 3/16 ndle USE WITH INSULIN PENS ONCE DAILY glipiZIDE (GLUCOTROL) 5 mg tablet TAKE 1 TABLET DAILY AT DINNER (DISCONTINUE GLIMEPIRIDE) furosemide (LASIX) 40 mg tablet TAKE 1 TABLET DAILY venlafaxine ER (EFFEXOR XR) 150 mg 24 hr capsule TAKE 1 CAPSULE DAILY warfarin (COUMADIN) 5 mg tablet Take 2 tablets by mouth once daily. Or as directed warfarin (COUMADIN) 1 mg tablet Take 3 tablets by mouth once daily. Or as directed carvedilol (COREG) 12.5 mg tablet TAKE 1 TABLET TWICE A DAY dicyclomine (BENTYL) 20 mg tablet TAKE 1 TABLET THREE TIMES A DAY BEFORE MEALS ranitidine (ZANTAC) 150 mg tablet TAKE 1 TABLET TWICE A DAY carvedilol (COREG) 25 mg tablet TAKE 1 TABLET TWICE A DAY (TAKE WITH 12.5MG TWICE A DAY FOR A TOTAL OF 37.5MG TWICE A DAY) busPIRone (BUSPAR) 10 mg tablet Take 1 tablet by mouth twice daily. Psyllium Seed-Sucrose (METAMUCIL, SUGAR,) powd Take 1 Tablespoonful by mouth as needed. Cholecalciferol, Vitamin D3, 5,000 unit tab Take 1 tablet by mouth once daily. CALCIUM CARBONATE/VITAMIN D3 (VITAMIN D-3 ORAL) Take 1 tablet by mouth once daily. warfarin (COUMADIN) 5 mg tablet Alternating 12 mg every other day with 13 mg every other day (Uses weekly box that fills every week) MULTIVITAMIN ORAL TAB Take one(1) tablet daily. FAMILY HISTORY Problem Relation Age of Onset - Heart Mother - Diabetes Mother - other (black lung) Father - Diabetes Paternal Grandfather Social History Substance Use Topics - Smoking status: Former Smoker Packs/day: 1.00 Years: 22.00 Types: Cigarettes, Pipe, Cigars Quit date: 09/26/2002 - Smokeless tobacco: Former User Types: Chew Quit date: 02/20/2003 Comment: only chewed brief period - Alcohol use No Comment: Rare PHYSICAL EXAM BP 128/80 Pulse 76 Temp 36.4 ?C (97.6 ?F) (Temporal Artery) Resp 16 Wt (!) 147.4 kg (325 lb) SpO2 99% BMI 49.42 kg/m? General Appearance: well appearing, in no acute distress, alert Pysch: mood and affect broad and appropriate Skin: Skin color, texture, turgor normal for age; Eyes: PERRLA, EOM's intact, conjunctiva pink and moist, no icterus, sclera white, non-injected Neck: Thyroid normal size and symmetric without palpable nodules, Neck supple, No adenopathy Oropharynx: lips normal without lesions, tongue midline and normal, soft palate, uvula, and tonsils normal Lymph nodes: No supraclavicular lymphadenopathy Lungs: lungs clear to auscultation. No wheezing, rhonchi, rales Heart: Irregularly irregular without obvious murmur, gallop, or rubs. No ectopy, Heart sounds distant due to body habitus Abdomen: Abdomen soft, non-tender. Bowel sounds normal. No masses, organomegaly but difficult exam due to body habitus Negative CVA tenderness Extremities: Good capillary refill. Pulses: 1+, Edema: 1+ to lower legs Musculoskeletal: No joint swelling, deformity, or tenderness Neurological: Negative findings: speech normal, mental status intact, muscle tone normal, muscle strength normal, reflexes normal and symmetric, gait normal ASSESSMENT/PLAN: 1. Myalgia - ICD9: 729.1, ICD10: M79.10 (primary diagnosis) Possible etiologies include renal failure, statin, infection, cardiac. Exam today benign. Work-up with: - CK CREATINE KINASE - COMP METABOLIC PANEL Follow-up pending results 2. Weakness generalized - ICD9: 780.79, ICD10: R53.1 As above - CK CREATINE KINASE - COMP METABOLIC PANEL - CBC + DIFF - TSH BLD 3. Decreased exercise tolerance - ICD9: 780.99, ICD10: R68.89 Concern for cardiac cause. History of CHF and atrial fibrillation. - ECG COMPLETE W INTERPRETATION atrial fibrillation with non-specific ST and T wave abnormality but EKG difficult to interpret due to artifact. - Last echocardiogram in 2017. If lab work-up unremarkable will order repeat echocardiogram 4. Fatigue, unspecified type - ICD9: 780.79, ICD10: R53.83 See plans as above - ECG COMPLETE W INTERPRETATION - UA DIP, URINE (POC) - COMP METABOLIC PANEL - CBC + DIFF - TSH BLD 5. Current use of assisted anticoagulation - ICD9: V58.61, ICD10: Z79.01 Has not had INR checked in a few months - PROTHROMBIN TIME/PT Prescription instructions reviewed with patient as applicable. Potential red flag symptoms discussed with the patient. Reviewed appropriate action plan to take if red flag symptoms occur. Patient agreeable to treatment plan. Mayra Gaston, JIMMY.DAMAGE CUTTER Referring Provider: SELF [[id number]] Allergies As of Date: 02/22/2018 Noted Allergy Reaction CEPHALEXIN 10/20/2004 2 - Rash 7 - Swelling PENICILLINS 10/20/2004 16 - Unknown Comments: childhood Date Reviewed: 02/22/2018 Reviewed by: Lyndsay Gallagher Field Supervisor [employer] - Fully Assessed Primary Visit Diagnosis:Myalgia [M79.10] Other Visit Diagnoses:Weakness generalized [R53.1] Decreased exercise tolerance [R68.89] Fatigue, unspecified type [R53.83] Current use of vice president investor relations anticoagulation [Z79.01] Order(s):ECG COMPLETE W INTERPRETATION [ECG01] Order #: [id number] FUTURE CK CREATINE KINASE [SQCK] Order #: [id number] FUTURE COMP METABOLIC PANEL [SQCMP] Order #: [id number] FUTURE CBC + DIFF [SQCBCDIF] Order #: [id number] FUTURE TSH BLD [SQTSH] Order #: [id number] FUTURE PROTHROMBIN TIME/PT [SQPT] Order #: [id number] FUTURE URINALYSIS WITH MICROSCOPIC [SQUAWMIC] Order #: [id number]. #:[id number] URINE CULTURE [SQURCUL] Order #: [id number] FUTURE Prescriptions as of 02/22/2018 Sig: PRAVASTATIN 80 MG TABLET TAKE 1 TABLET DAILY GABAPENTIN 600 MG TABLET Take 1 tablet by mouth twice * NIFEDIPINE ER 90 MG TABLET,EX* Take 1 tablet by mouth daily * INSULIN NPH ISOPHANE U-100 HU* INJECT 10 UNITS UNDER THE SKI* BD ULTRA-FINE MINI PEN NEEDLE* USE WITH INSULIN PENS ONCE DA* GLIPIZIDE 5 MG TABLET TAKE 1 TABLET DAILY AT DINNER* FUROSEMIDE 40 MG TABLET TAKE 1 TABLET DAILY VENLAFAXINE ER 150 MG CAPSULE* TAKE 1 CAPSULE DAILY WARFARIN 5 MG TABLET Take 2 tablets by mouth once * WARFARIN 1 MG TABLET Take 3 tablets by mouth once * CARVEDILOL 12.5 MG TABLET TAKE 1 TABLET TWICE A DAY DICYCLOMINE 20 MG TABLET TAKE 1 TABLET THREE TIMES A D* RANITIDINE 150 MG TABLET TAKE 1 TABLET TWICE A DAY CARVEDILOL 25 MG TABLET TAKE 1 TABLET TWICE A DAY (TA* BUSPIRONE 10 MG TABLET Take 1 tablet by mouth twice * PSYLLIUM SEED (SUGAR) ORAL PO* Take 1 Tablespoonful by mouth* CHOLECALCIFEROL (VITAMIN D3) * Take 1 tablet by mouth once d* VITAMIN D-3 ORAL Take 1 tablet by mouth once d* WARFARIN 5 MG TABLET Alternating 12 mg every other* MULTIVITAMIN TABLET Take one(1) tablet daily. Problem List As Of Date 02/22/2018 Noted Resolved BMI 50.0-59.9, adult ([facility]) [Z68.43] INVALID FOR* Cellulitis and abscess of leg, except foot [L03*INVALID FOR*04/05/2013 Phlebitis and thrombophlebitis of superficial v*INVALID FOR*04/05/2013 Recurrent major depression in remission ([facility]) [*INVALID FOR* Type 2 diabetes mellitus with proteinuria or mi*INVALID FOR*09/18/2013 Venous (peripheral) insufficiency [I87.2] More... MIXED HYPERLIPIDEMIA [E78.2] INVALID FOR* Panic disorder with agoraphobia [F40.01] Leg cramps [R25.2] INVALID FOR* More... Uncontrolled hypertension [I10] INVALID FOR* Diverticulum of bladder [N32.3] INVALID FOR* Unspecified venous (peripheral) insufficiency [* More... Proteinuria [R80.9] INVALID FOR* Atrial fibrillation (HCC) [I48.91] More... Anemia in stage 4 chronic kidney disease (HCC) * GERD (gastroesophageal reflux disease) [K21.9] Morbid obesity (HCC) [E66.01] INVALID FOR* Controlled type 2 diabetes mellitus with diabet*INVALID FOR* Controlled type 2 diabetes mellitus with stage *INVALID FOR* Type 2 diabetes mellitus with diabetic nephropa*INVALID FOR* Chronic foot ulcer (HCC) [L97.509] INVALID FOR* Vitamin D deficiency, unspecified [E55.9] INVALID FOR* Congestive heart failure (HCC) [I50.9] INVALID FOR* CKD (chronic kidney disease) stage 4, GFR 15-29*INVALID FOR* Secondary hyperparathyroidism of renal origin (*INVALID FOR* PAD (peripheral artery disease) (HCC) [I73.9] INVALID FOR* Bilateral leg edema [R60.0] INVALID FOR* Encounter Status:Closed by MAYRA GASTON CNP on 02/23/18 PROGRESS Observed: 02/22/2018 Status: COMPLETED Source: [place] 3:51 PM [facility] [place] REPOSITORY O ID: [id number] Author: Mayra Gaston Service: (none) Author Type: Nurse Practitioner Type: Progress Notes Filed: 02/23/2018 8:09 AM Note Text: CC: weakness HPI Marek Ramsay is a 57 year old male who presents today for weakness and heavy feeling in legs and arms that started around 02/13. Arms and legs feel heavy and achy, worsens with activity including walking and even just washing the dishes arms get tired. Symptoms have not gotten any worse. Never had this feeling before. Medications: Pravastatin-no muscle cramping. Coumadin- no unusual bleeding. Last INR 10, 2.4 No new medications Patient is diabetic. Average blood sugar under 200. No low blood sugars recently. Kidney disease stage 4. May need dialysis soon. No recent illnesses. REVIEW OF SYSTEMS General: no fevers, no chills, no night sweats and no recurrent infections. Weight loss of 19 lbs in one month. Patient attributes this to decreased appetite secondary to depression which has since improved. HEENT: no frequent or significant headaches, no visual changes Respiratory: no cough, no wheezing, no shortness of breath, no hemoptysis Cardiovascular: Positive for decreased exercise tolerance. History of Afib, CHF. Intermittent swelling, no worse than usual. No palpitations. No chest pain/pressure. GI: Negative for abdominal discomfort, blood in stools or black stools, diarrhea, heart burn, nausea, vomiting : Negative for dysuria, decreased stream, hematuria, hesitancy, nocturia >1 and hesitancy, Positive for urinating less frequently Musculoskeletal: Negative for joint pain or swelling Skin: Negative for lesions, rash, and itching Neurologic: no syncope, no seizures, no dizziness, no memory loss, no confusion, no numbness or tingling of hands, no numbness or tingling of feet, no involuntary movements, no tremor, no falling, no gait disturbance PAST MEDICAL HISTORY Diagnosis Date - Anemia - Atrial fibrillation ([facility]) coumadin managed by cardiology - Cellulitis and abscess of leg, except foot 10/20/2004 - CHF (congestive heart failure) ([facility]) - CKD (chronic kidney disease) stage 4, GFR 15-29 ml/min ([facility]) - Depressive disorder, not elsewhere classified 10/20/2004 - Diabetes ([facility]) 10/20/2004 Type 2; retinopathy, neuropathy, CKD - DVT (deep venous thrombosis) ([facility]) - GERD (gastroesophageal reflux disease) - Mixed hyperlipidemia 03/28/2008 - Morbidly obese ([facility]) - Panic disorder with agoraphobia - Proteinuria 10/20/2004 - PVD (peripheral vascular disease) ([facility]) - Unspecified venous (peripheral) insufficiency left leg; related to superficial venous thrombosis from complications from having to have blood transfusion when baby PAST SURGICAL HISTORY Procedure Laterality Date - COLONOSCOP W/ OR W/O BRSH SPEC 08/28/2012 Colonoscopy - EGD W/O OR W/BRUSH/WASH 02/24/2016 EGD mac - PAST SURGICAL HISTORY OF Left 1991 removal of blood clot left leg; superficial - REMOVAL OF TONSILS,<12 Y/O Tonsillectomy - REVISE MEDIAN N/CARPAL TUNNEL SURG Bilateral Carpal tunnel decomp ALLERGIES Cephalexin; Penicillins MEDICATIONS pravastatin (PRAVACHOL) 80 mg tablet TAKE 1 TABLET DAILY gabapentin (NEURONTIN) 600 mg tablet Take 1 tablet by mouth twice daily. NIFEdipine ER (PROCARDIA XL) 90 mg 24 hr tablet Take 1 tablet by mouth daily at bedtime. Insulin NPH human (HUMULIN N NPH INSULIN KWIKPEN) 100 unit/mL (3 mL) inpn injection pen INJECT 10 UNITS UNDER THE SKIN DAILY AT BEDTIME BD ULTRAFINE III MINI PEN 31 gauge x 3/16 ndle USE WITH INSULIN PENS ONCE DAILY glipiZIDE (GLUCOTROL) 5 mg tablet TAKE 1 TABLET DAILY AT DINNER (DISCONTINUE GLIMEPIRIDE) furosemide (LASIX) 40 mg tablet TAKE 1 TABLET DAILY venlafaxine ER (EFFEXOR XR) 150 mg 24 hr capsule TAKE 1 CAPSULE DAILY warfarin (COUMADIN) 5 mg tablet Take 2 tablets by mouth once daily. Or as directed warfarin (COUMADIN) 1 mg tablet Take 3 tablets by mouth once daily. Or as directed carvedilol (COREG) 12.5 mg tablet TAKE 1 TABLET TWICE A DAY dicyclomine (BENTYL) 20 mg tablet TAKE 1 TABLET THREE TIMES A DAY BEFORE MEALS ranitidine (ZANTAC) 150 mg tablet TAKE 1 TABLET TWICE A DAY carvedilol (COREG) 25 mg tablet TAKE 1 TABLET TWICE A DAY (TAKE WITH 12.5MG TWICE A DAY FOR A TOTAL OF 37.5MG TWICE A DAY) busPIRone (BUSPAR) 10 mg tablet Take 1 tablet by mouth twice daily. Psyllium Seed-Sucrose (METAMUCIL, SUGAR,) powd Take 1 Tablespoonful by mouth as needed. Cholecalciferol, Vitamin D3, 5,000 unit tab Take 1 tablet by mouth once daily. CALCIUM CARBONATE/VITAMIN D3 (VITAMIN D-3 ORAL) Take 1 tablet by mouth once daily. warfarin (COUMADIN) 5 mg tablet Alternating 12 mg every other day with 13 mg every other day (Uses weekly box that fills every week) MULTIVITAMIN ORAL TAB Take one(1) tablet daily. FAMILY HISTORY Problem Relation Age of Onset - Heart Mother - Diabetes Mother - other (black lung) Father - Diabetes Paternal Grandfather Social History Substance Use Topics - Smoking status: Former Smoker Packs/day: 1.00 Years: 22.00 Types: Cigarettes, Pipe, Cigars Quit date: 09/26/2002 - Smokeless tobacco: Former User Types: Chew Quit date: 02/20/2003 Comment: only chewed brief period - Alcohol use No Comment: Rare PHYSICAL EXAM BP 128/80 Pulse 76 Temp 36.4 ?C (97.6 ?F) (Temporal Artery) Resp 16 Wt (!) 147.4 kg (325 lb) SpO2 99% BMI 49.42 kg/m? General Appearance: well appearing, in no acute distress, alert Pysch: mood and affect broad and appropriate Skin: Skin color, texture, turgor normal for age; Eyes: PERRLA, EOM's intact, conjunctiva pink and moist, no icterus, sclera white, non-injected Neck: Thyroid normal size and symmetric without palpable nodules, Neck supple, No adenopathy Oropharynx: lips normal without lesions, tongue midline and normal, soft palate, uvula, and tonsils normal Lymph nodes: No supraclavicular lymphadenopathy Lungs: lungs clear to auscultation. No wheezing, rhonchi, rales Heart: Irregularly irregular without obvious murmur, gallop, or rubs. No ectopy, Heart sounds distant due to body habitus Abdomen: Abdomen soft, non-tender. Bowel sounds normal. No masses, organomegaly but difficult exam due to body habitus Negative CVA tenderness Extremities: Good capillary refill. Pulses: 1+, Edema: 1+ to lower legs Musculoskeletal: No joint swelling, deformity, or tenderness Neurological: Negative findings: speech normal, mental status intact, muscle tone normal, muscle strength normal, reflexes normal and symmetric, gait normal ASSESSMENT/PLAN: 1. Myalgia - ICD9: 729.1, ICD10: M79.10 (primary diagnosis) Possible etiologies include renal failure, statin, infection, cardiac. Exam today benign. Work-up with: - CK CREATINE KINASE - COMP METABOLIC PANEL Follow-up pending results 2. Weakness generalized - ICD9: 780.79, ICD10: R53.1 As above - CK CREATINE KINASE - COMP METABOLIC PANEL - CBC + DIFF - TSH BLD 3. Decreased exercise tolerance - ICD9: 780.99, ICD10: R68.89 Concern for cardiac cause. History of CHF and atrial fibrillation. - ECG COMPLETE W INTERPRETATION atrial fibrillation with non-specific ST and T wave abnormality but EKG difficult to interpret due to artifact. - Last echocardiogram in 2017. If lab work-up unremarkable will order repeat echocardiogram 4. Fatigue, unspecified type - ICD9: 780.79, ICD10: R53.83 See plans as above - ECG COMPLETE W INTERPRETATION - UA DIP, URINE (POC) - COMP METABOLIC PANEL - CBC + DIFF - TSH BLD 5. Current use of assisted anticoagulation - ICD9: V58.61, ICD10: Z79.01 Has not had INR checked in a few months - PROTHROMBIN TIME/PT Prescription instructions reviewed with patient as applicable. Potential red flag symptoms discussed with the patient. Reviewed appropriate action plan to take if red flag symptoms occur. Patient agreeable to treatment plan. Mayra Gaston APRN.DAMAGE CUTTER LOWER EXT/NO JT/W/O Observed: 02/02/2018 Status: F Source: [place] 5:07 PM [facility] Imaging Services [address] [place] [address] Lower Ext/No Jt/w/o MR#: [id number] Acct: [id number] Name: MAREK RAMSAY II Rep #: [id number] : 1960 M 57 From: José Luis Delgadillo MD PCP: Alok Ng MD Status: REG CLI Study: Lower Ext/No Jt/w/o Date of Exam: 02/02/18 Exam# [id number] Ordering Dr: Reilly Hudson DPM STUDY: MRI LEFT FOOT REASON FOR EXAM: Heel pain when walking, recently treated for open wound of left heel. TECHNIQUE: Standardized fat and water weighted pulse sequences were obtained in all 3 orthogonal planes. COMPARISON: Radiographs 06/09/2017. FINDINGS: There is an osteochondral lesion of the medial talar dome (T1 sagittal image 11) measuring 0.9 x 0.7 cm (AP x transverse) with cystic change of the lesion (inversion recovery sagittal image 11). Normal posterior subtalar articulation. Normal talonavicular articulation. Normal calcaneocuboid articulation. There is a small subchondral cyst in the lateral cuneiform adjacent to the navicular-cuneiform articulations (inversion recovery sagittal image 17). Normal intercuneiform articulations. There is a small cyst in the plantar lateral aspect of the navicular (inversion recovery sagittal image 14). There is no stress fracture or osteomyelitis of the tarsal bones of the midfoot or hindfoot. Normal first tarsometatarsal articulation. Normal Lisfranc ligament. Normal second and third tarsometatarsal articulations. Normal cuboid fourth and cuboid fifth tarsometatarsal articulation. There is mild subchondral cystic change of the head of the first metatarsal (inversion recovery sagittal image 4). Otherwise, unremarkable first through fifth metatarsi. Normal tibialis anterior tendon. Normal extensor hallucis longus tendon. Normal extensor digitorum longus tendons. Normal peroneus longus tendon and distal insertion. Normal peroneus brevis tendon and distal insertion. There is atrophy with fat replacement of the abductor digiti minimi muscle (T1 sagittal images 15-18). There is chronic plantar fasciitis with thickening and an ossification in the central cord of the plantar fascia 1.6 cm distal to the calcaneal insertion (T1 sagittal images 9, 10). There is a small plantar calcaneal enthesophyte. There is intermediate T1 signal in the plantar heel pad (T1 sagittal images 9, 10) and intermediate T2 signal (T2 series 8 images 28-31), either scarring or pressure lesion. There is no soft tissue abscess. MRI/Lower Ext/No Jt/w/o IMPRESSION: Signal alteration of the plantar heel pad, either scarring or pressure lesion. Chronic plantar fasciitis. Atrophy of the abductor digiti minimi muscle. Osteochondral lesion of the medial talar dome. Electronically Signed: José Luis Delgadillo MD at 7:59 EST Tel , Service support , CC: Reilly Hudson DPM; Alok Ng MD [employer] Tile Shader: Signed PROGRESS Observed: 01/26/2018 Status: COMPLETED Source: [place] 5:33 PM [facility] RE[facility] HNO ID: [id number] Author: Alok Ng Service: (none) Author Type: Physician Type: Progress Notes Filed: 02/15/2018 8:03 PM Note Text: This note was created using NoteWriter. Subjective Marek Ramsay is a 57 year old male. Patient presents with: Recheck: 6 month follow up SUBJECTIVE: Marek Ramsay is a 57 year old year old gentleman here today for 6 month follow up appointment for review of medical conditions. Continues to follow up with Endocrinology for DM. Continues to be on FMLA under DM reasons but also has issues with foot. DM foot ulcer and pain issues being evaluated by [employer] tender star signal--Dr. Hudson. MRI to be done Monday for spot not able to tell what it was on . Foot pain when walking; worse at work. Sun, M,Twas okay. and Fr again with pain Will see ophthalmology March 02. Gets swelling in feet in the AM. once gets walking, swelling goes down and has to re-lace shoes. Anxiety and depression under good control with current meds. PAST MEDICAL HISTORY Diagnosis Date - Anemia - Atrial fibrillation ([facility]) coumadin managed by cardiology - Cellulitis and abscess of leg, except foot 10/20/2004 - CHF (congestive heart failure) ([facility]) - CKD (chronic kidney disease) stage 4, GFR 15-29 ml/min ([facility]) - Depressive disorder, not elsewhere classified 10/20/2004 - Diabetes ([facility]) 10/20/2004 Type 2; retinopathy, neuropathy, CKD - DVT (deep venous thrombosis) ([facility]) - GERD (gastroesophageal reflux disease) - Mixed hyperlipidemia 03/28/2008 - Morbidly obese ([facility]) - Panic disorder with agoraphobia - Proteinuria 10/20/2004 - PVD (peripheral vascular disease) ([facility]) - Unspecified venous (peripheral) insufficiency left leg; related to superficial venous thrombosis from complications from having to have blood transfusion when baby Current Outpatient Prescriptions: NIFEdipine ER (PROCARDIA XL) 90 mg 24 hr tablet Take 1 tablet by mouth daily at bedtime. gabapentin (NEURONTIN) 300 mg capsule Take 2 capsules by mouth twice daily for 180 days. As directed Insulin NPH human (HUMULIN N NPH INSULIN KWIKPEN) 100 unit/mL (3 mL) inpn injection pen INJECT 10 UNITS UNDER THE SKIN DAILY AT BEDTIME BD ULTRAFINE III MINI PEN 31 gauge x 3/16 ndle USE WITH INSULIN PENS ONCE DAILY glipiZIDE (GLUCOTROL) 5 mg tablet TAKE 1 TABLET DAILY AT DINNER (DISCONTINUE GLIMEPIRIDE) furosemide (LASIX) 40 mg tablet TAKE 1 TABLET DAILY venlafaxine ER (EFFEXOR XR) 150 mg 24 hr capsule TAKE 1 CAPSULE DAILY warfarin (COUMADIN) 5 mg tablet Take 2 tablets by mouth once daily. Or as directed warfarin (COUMADIN) 1 mg tablet Take 3 tablets by mouth once daily. Or as directed carvedilol (COREG) 12.5 mg tablet TAKE 1 TABLET TWICE A DAY dicyclomine (BENTYL) 20 mg tablet TAKE 1 TABLET THREE TIMES A DAY BEFORE MEALS ranitidine (ZANTAC) 150 mg tablet TAKE 1 TABLET TWICE A DAY carvedilol (COREG) 25 mg tablet TAKE 1 TABLET TWICE A DAY (TAKE WITH 12.5MG TWICE A DAY FOR A TOTAL OF 37.5MG TWICE A DAY) pravastatin (PRAVACHOL) 80 mg tablet TAKE 1 TABLET DAILY busPIRone (BUSPAR) 10 mg tablet Take 1 tablet by mouth twice daily. Psyllium Seed-Sucrose (METAMUCIL, SUGAR,) powd Take 1 Tablespoonful by mouth as needed. Cholecalciferol, Vitamin D3, 5,000 unit tab Take 1 tablet by mouth once daily. CALCIUM CARBONATE/VITAMIN D3 (VITAMIN D-3 ORAL) Take 1 tablet by mouth once daily. MULTIVITAMIN ORAL TAB Take one(1) tablet daily. warfarin (COUMADIN) 5 mg tablet Alternating 12 mg every other day with 13 mg every other day (Uses weekly box that fills every week) No current facility-administered medications for this visit. Review of Systems Objective BP 138/72 (BP Site: Left Arm, BP Position: Sitting, BP Cuff Size: Extra Large Adult) Pulse 76 Temp 36.9 ?C (98.4 ?F) (Left Tympanic) Resp 18 Wt (!) 156 kg (344 lb) SpO2 99% BMI 52.31 kg/m? Physical Exam Constitutional: He is oriented to person, place, and time. He appears well-developed and well-nourished. Obese HENT: Head: Normocephalic. Eyes: Pupils are equal, round, and reactive to light. Conjunctivae and EOM are normal. Cardiovascular: An irregularly irregular rhythm present. 1 to 2+ bilateral leg swelling Pulmonary/Chest: Effort normal and breath sounds normal. Neurological: He is alert and oriented to person, place, and time. Component Latest Ref Rng AND Units 12/08/2017 12/25/2017 Protein, Total 6.3 - 8.0 g/dL 7.4 Albumin 3.9 - 4.9 g/dL 4.1 Calcium 8.5 - 10.2 mg/dL 9.0 8.7 Bilirubin, Total 0.2 - 1.3 mg/dL 0.2 Alkaline Phosphatase 38 - 113 U/L 57 AST 14 - 40 U/L 29 Glucose 74 - 99 mg/dL 106 (H) 148 (H) BUN 9 - 24 mg/dL 71 (H) 61 (H) Creatinine 0.73 - 1.22 mg/dL 2.92 (H) 2.90 (H) Sodium 136 - 144 mmol/L 140 143 Potassium 3.7 - 5.1 mmol/L 5.0 5.0 Chloride 97 - 105 mmol/L 109 (H) 109 (H) CO2 22 - 30 mmol/L 17 (L) 20 (L) Anion Gap 9 - 18 mmol/L 14 14 ALT 10 - 54 U/L 23 eGFR- 27 27 eGFR-All Other Races . 22 23 Cholesterol, Total <200 mg/dL 176 Triglyceride <150 mg/dL 147 HDL Cholesterol >39 mg/dL 34 (L) LDL Cholesterol <100 mg/dL 113 (H) Non HDL Cholesterol <130 mg/dL 142 (H) Fasting Time hrs 8 VLDL Cholesterol <30 mg/dL 29 TC:HDL Ratio <5.10 5.18 (H) LDL:HDL Ratio <2.54 3.32 (H) Hemoglobin A1C 4.3 - 5.6 % 7.2 (H) Estimated Average Glucose mg/dL 160 Vitamin D 25 Hydroxy 31.0 - 80.0 ng/mL 50.9 Assessment and Plan Encounter Diagnosis ICD-10-CM 1. Controlled type 2 diabetes mellitus with stage 4 chronic kidney disease, with long-term current use of insulin ([facility]) E11.22 N18.4 Z79.4 2. Morbid obesity ([facility]) E66.01 3. Left foot pain M79.672 4. Controlled type 2 diabetes mellitus with diabetic polyneuropathy, with long-term current use of insulin ([facility]) E11.42 DISCONTINUED: gabapentin (NEURONTIN) 300 mg capsule Z79.4 5. Bilateral leg edema R60.0 6. Recurrent major depression in remission (HCC) F33.40 Will complete FMLA same as before probably since had been effective. For issues with DM. Above issues addressed with patient. Patient involved in shared decision making for management of medical issues. History and medications reviewed. Epic updated as needed Refills taken care of and meds adjusted as indicated after reviewed history, exam and labs. Health Maintenance reviewed. Updated record and/or ordered tests as recorded. Encouraged on efforts at healthy diet and regular exercise and adequate sleep. Needs to keep working on diet and exercise with lifestyle changes for effective weight loss as well as control of DM, and control of BP and lipids. Continue working with Endocrinology and wound care/podatrist. Doing well on Effexor and Buspar. Continue present management. The majority of the visit was spent counseling and/or coordinating care for the patient. Ureu-lu-pwgm time was at least 25 minutes. Alok Ng MD CNOV Observed: 01/26/2018 Status: COMPLETED Source: [place] 4:00 PM [facility] REPOSITORY Office Visit (INTMWS) MAREK RAMSAY ([id number]) 1960 M Date Time Provider Department 01/26/18 4:00 PM ALOK NG INTMWS During your visit today, we recorded the following information about you: Temperature Pulse Respiration Blood pressure 98.4 degrees 76/minute 18/minute 138/72 Weight 156 kg Alok Ng MD 02/15/2018 8:03 PM Signed This note was created using [employer]Boost[employer]. Subjective Marek Ramsay is a 57 year old male. Patient presents with: Recheck: 6 month follow up SUBJECTIVE: Marek Ramsay is a 57 year old year old gentleman here today for 6 month follow up appointment for review of medical conditions. Continues to follow up with Endocrinology for DM. Continues to be on FMLA under DM reasons but also has issues with foot. DM foot ulcer and pain issues being evaluated by [employer] [facility] signal--Dr. Hudson. MRI to be done Monday for spot not able to tell what it was on Xray. Foot pain when walking; worse at work. Deepti M,Silvana okay. and Fr again with pain Will see ophthalmology March 02. Gets swelling in feet in the AM. once gets walking, swelling goes down and has to re-lace shoes. Anxiety and depression under good control with current meds. PAST MEDICAL HISTORY Diagnosis Date - Anemia - Atrial fibrillation ([facility]) coumadin managed by cardiology - Cellulitis and abscess of leg, except foot 10/20/2004 - CHF (congestive heart failure) ([facility]) - CKD (chronic kidney disease) stage 4, GFR 15-29 ml/min ([facility]) - Depressive disorder, not elsewhere classified 10/20/2004 - Diabetes ([facility]) 10/20/2004 Type 2; retinopathy, neuropathy, CKD - DVT (deep venous thrombosis) ([facility]) - GERD (gastroesophageal reflux disease) - Mixed hyperlipidemia 03/28/2008 - Morbidly obese ([facility]) - Panic disorder with agoraphobia - Proteinuria 10/20/2004 - PVD (peripheral vascular disease) ([facility]) - Unspecified venous (peripheral) insufficiency left leg; related to superficial venous thrombosis from complications from having to have blood transfusion when baby Current Outpatient Prescriptions: NIFEdipine ER (PROCARDIA XL) 90 mg 24 hr tablet Take 1 tablet by mouth daily at bedtime. gabapentin (NEURONTIN) 300 mg capsule Take 2 capsules by mouth twice daily for 180 days. As directed Insulin NPH human (HUMULIN N NPH INSULIN KWIKPEN) 100 unit/mL (3 mL) inpn injection pen INJECT 10 UNITS UNDER THE SKIN DAILY AT BEDTIME BD ULTRAFINE III MINI PEN 31 gauge x 05/05 ndle USE WITH INSULIN PENS ONCE DAILY glipiZIDE (GLUCOTROL) 5 mg tablet TAKE 1 TABLET DAILY AT DINNER (DISCONTINUE GLIMEPIRIDE) furosemide (LASIX) 40 mg tablet TAKE 1 TABLET DAILY venlafaxine ER (EFFEXOR XR) 150 mg 24 hr capsule TAKE 1 CAPSULE DAILY warfarin (COUMADIN) 5 mg tablet Take 2 tablets by mouth once daily. Or as directed warfarin (COUMADIN) 1 mg tablet Take 3 tablets by mouth once daily. Or as directed carvedilol (COREG) 12.5 mg tablet TAKE 1 TABLET TWICE A DAY dicyclomine (BENTYL) 20 mg tablet TAKE 1 TABLET THREE TIMES A DAY BEFORE MEALS ranitidine (ZANTAC) 150 mg tablet TAKE 1 TABLET TWICE A DAY carvedilol (COREG) 25 mg tablet TAKE 1 TABLET TWICE A DAY (TAKE WITH 12.5MG TWICE A DAY FOR A TOTAL OF 37.5MG TWICE A DAY) pravastatin (PRAVACHOL) 80 mg tablet TAKE 1 TABLET DAILY busPIRone (BUSPAR) 10 mg tablet Take 1 tablet by mouth twice daily. Psyllium Seed-Sucrose (METAMUCIL, SUGAR,) powd Take 1 Tablespoonful by mouth as needed. Cholecalciferol, Vitamin D3, 5,000 unit tab Take 1 tablet by mouth once daily. CALCIUM CARBONATE/VITAMIN D3 (VITAMIN D-3 ORAL) Take 1 tablet by mouth once daily. MULTIVITAMIN ORAL TAB Take one(1) tablet daily. warfarin (COUMADIN) 5 mg tablet Alternating 12 mg every other day with 13 mg every other day (Uses weekly box that fills every week) No current facility-administered medications for this visit. Review of Systems Objective BP 138/72 (BP Site: Left Arm, BP Position: Sitting, BP Cuff Size: Extra Large Adult) Pulse 76 Temp 36.9 ?C (98.4 ?F) (Left Tympanic) Resp 18 Wt (!) 156 kg (344 lb) SpO2 99% BMI 52.31 kg/m? Physical Exam Constitutional: He is oriented to person, place, and time. He appears well-developed and well-nourished. Obese HENT: Head: Normocephalic. Eyes: Pupils are equal, round, and reactive to light. Conjunctivae and EOM are normal. Cardiovascular: An irregularly irregular rhythm present. 1 to 2+ bilateral leg swelling Pulmonary/Chest: Effort normal and breath sounds normal. Neurological: He is alert and oriented to person, place, and time. Component Latest Ref Rng AND Units 12/08/2017 12/25/2017 Protein, Total 6.3 - 8.0 g/dL 7.4 Albumin 3.9 - 4.9 g/dL 4.1 Calcium 8.5 - 10.2 mg/dL 9.0 8.7 Bilirubin, Total 0.2 - 1.3 mg/dL 0.2 Alkaline Phosphatase 38 - 113 U/L 57 AST 14 - 40 U/L 29 Glucose 74 - 99 mg/dL 106 (H) 148 (H) BUN 9 - 24 mg/dL 71 (H) 61 (H) Creatinine 0.73 - 1.22 mg/dL 2.92 (H) 2.90 (H) Sodium 136 - 144 mmol/L 140 143 Potassium 3.7 - 5.1 mmol/L 5.0 5.0 Chloride 97 - 105 mmol/L 109 (H) 109 (H) CO2 22 - 30 mmol/L 17 (L) 20 (L) Anion Gap 9 - 18 mmol/L 14 14 ALT 10 - 54 U/L 23 eGFR- 27 27 eGFR-All Other Races . 22 23 Cholesterol, Total <200 mg/dL 176 Triglyceride <150 mg/dL 147 HDL Cholesterol >39 mg/dL 34 (L) LDL Cholesterol <100 mg/dL 113 (H) Non HDL Cholesterol <130 mg/dL 142 (H) Fasting Time hrs 8 VLDL Cholesterol <30 mg/dL 29 TC:HDL Ratio <5.10 5.18 (H) LDL:HDL Ratio <2.54 3.32 (H) Hemoglobin A1C 4.3 - 5.6 % 7.2 (H) Estimated Average Glucose mg/dL 160 Vitamin D 25 Hydroxy 31.0 - 80.0 ng/mL 50.9 Assessment and Plan Encounter Diagnosis ICD-10-CM 1. Controlled type 2 diabetes mellitus with stage 4 chronic kidney disease, with long-term current use of insulin ([facility]) E11.22 N18.4 Z79.4 2. Morbid obesity ([facility]) E66.01 3. Left foot pain M79.672 4. Controlled type 2 diabetes mellitus with diabetic polyneuropathy, with long-term current use of insulin ([facility]) E11.42 DISCONTINUED: gabapentin (NEURONTIN) 300 mg capsule Z79.4 5. Bilateral leg edema R60.0 6. Recurrent major depression in remission ([facility]) F33.40 Will complete FMLA same as before probably since had been effective. For issues with DM. Above issues addressed with patient. Patient involved in shared decision making for management of medical issues. History and medications reviewed. Epic updated as needed Refills taken care of and meds adjusted as indicated after reviewed history, exam and labs. Health Maintenance reviewed. Updated record and/or ordered tests as recorded. Encouraged on efforts at healthy diet and regular exercise and adequate sleep. Needs to keep working on diet and exercise with lifestyle changes for effective weight loss as well as control of DM, and control of BP and lipids. Continue working with Endocrinology and wound care/podatrist. Doing well on Effexor and Buspar. Continue present management. The majority of the visit was spent counseling and/or coordinating care for the patient. Fwuy-fu-jqev time was at least 25 minutes. Alok Ng MD Allergies As of Date: 01/26/2018 Noted Allergy Reaction CEPHALEXIN 10/20/2004 2 - Rash 7 - Swelling PENICILLINS 10/20/2004 16 - Unknown Comments: childhood Date Reviewed: 01/26/2018 Reviewed by: Nichole Stone LPN - Fully Assessed Reason for Visit: Recheck [92] Cmt: 6 month follow up Primary Visit Diagnosis:Controlled type 2 diabetes mellitus with stage 4 chronic kidney disease, with long- term current use of insulin ([facility]) [E11.22, N18.4, Z79.4] Other Visit Diagnoses:Morbid obesity ([facility]) [E66.01] Left foot pain [M79.672] Controlled type 2 diabetes mellitus with diabetic polyneuropathy, with long-term current use of insulin ([facility]) [E11.42, Z79.4] Bilateral leg edema [R60.0] Recurrent major depression in remission ([facility]) [F33.40] Prescriptions as of 01/26/2018 Sig: BD ULTRA-FINE MINI PEN NEEDLE* USE WITH INSULIN PENS ONCE DA* BUSPIRONE 10 MG TABLET Take 1 tablet by mouth twice * VITAMIN D-3 ORAL Take 1 tablet by mouth once d* CARVEDILOL 12.5 MG TABLET TAKE 1 TABLET TWICE A DAY CARVEDILOL 25 MG TABLET TAKE 1 TABLET TWICE A DAY (TA* CHOLECALCIFEROL (VITAMIN D3) * Take 1 tablet by mouth once d* DICYCLOMINE 20 MG TABLET TAKE 1 TABLET THREE TIMES A D* FUROSEMIDE 40 MG TABLET TAKE 1 TABLET DAILY GLIPIZIDE 5 MG TABLET TAKE 1 TABLET DAILY AT DINNER* INSULIN NPH ISOPHANE U-100 HU* INJECT 10 UNITS UNDER THE SKI* MULTIVITAMIN TABLET Take one(1) tablet daily. NIFEDIPINE ER 90 MG TABLET,EX* Take 1 tablet by mouth daily * PSYLLIUM SEED (SUGAR) ORAL PO* Take 1 Tablespoonful by mouth* RANITIDINE 150 MG TABLET TAKE 1 TABLET TWICE A DAY VENLAFAXINE ER 150 MG CAPSULE* TAKE 1 CAPSULE DAILY WARFARIN 1 MG TABLET Take 3 tablets by mouth once * WARFARIN 5 MG TABLET Take 2 tablets by mouth once * X GABAPENTIN 300 MG CAPSULE Take 2 capsules by mouth twic* X PRAVASTATIN 80 MG TABLET TAKE 1 TABLET DAILY WARFARIN 5 MG TABLET Alternating 12 mg every other* Medication notes this encounter GABAPENTIN 300 MG CAPSULE >> Alok Ng MD 01/26/2018 6:05 PM >> ALOK NG MD MonJan 26, 2018 6:05 PM Note that 360 with 3 refills lasts actually a year Problem List As Of Date 01/26/2018 Noted Resolved BMI 50.0-59.9, adult ([facility]) [Z68.43] INVALID FOR* Cellulitis and abscess of leg, except foot [L03*INVALID FOR*04/05/2013 Phlebitis and thrombophlebitis of superficial v*INVALID FOR*04/05/2013 Recurrent major depression in partial remission*INVALID FOR* Type 2 diabetes mellitus with proteinuria or mi*INVALID FOR*09/18/2013 Venous (peripheral) insufficiency [I87.2] More... MIXED HYPERLIPIDEMIA [E78.2] INVALID FOR* Panic disorder with agoraphobia [F40.01] Leg cramps [R25.2] INVALID FOR* More... Uncontrolled hypertension [I10] INVALID FOR* Diverticulum of bladder [N32.3] INVALID FOR* Unspecified venous (peripheral) insufficiency [* More... Proteinuria [R80.9] INVALID FOR* Atrial fibrillation ([facility]) [I48.91] More... Anemia in stage 4 chronic kidney disease ([facility]) * GERD (gastroesophageal reflux disease) [K21.9] Morbid obesity (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) [L97.509] INVALID FOR* Vitamin D deficiency, unspecified [E55.9] INVALID FOR* Congestive heart failure ([facility]) [I50.9] INVALID FOR* CKD (chronic kidney disease) stage 4, GFR 15-29*INVALID FOR* Secondary hyperparathyroidism of renal origin (*INVALID FOR* PAD (peripheral artery disease) ([facility]) [I73.9] INVALID FOR* Prescriptions ordered this encounter Disp Refills Start End GABAPENTIN 300 MG CAPSULE 360 * 3 01/17/2018 02/07/2018 Class: Med Update Route: ORAL Sig: Take 2 capsules by mouth twice daily. As directed Medications Discontinued During This Encounter gabapentin (NEURONTIN) 300 mg capsule 360 * 5 01/17/2018 01/26/2018 Route: ORAL Sig: Take 2 capsules by mouth twice daily for 180 days. As directed Disc: Reason for discontinue is not on file. Disposition: Return in about 6 months (around 07/27/2018) for 6 months follow up. Follow-up and Disposition History Recorded Encounter Status:Closed by ALOK NG MD on 02/15/18 PROGRESS Observed: 01/25/2018 Status: COMPLETED Source: [place] 4:02 PM [facility] [place] REPOSITORY HNO ID: [id number] Author: Tyshawn Richardson Service: (none) Author Type: Physician Type: Progress Notes Filed: 01/25/2018 4:22 PM Note Text: [facility]YPERT[facility]ION [facility]. Patient Name: Marek Ramsay CHIEF COMPLAINT: my kidneys. First visit: January 25, 2018 HPI: Marek Ramsay is a 57 year old white male. Sent for evaluation of CKD and proteinuria. Previously seen by Dr. Markham. Known CKD 4 likely due to uncontrolled DM 2 on insulin and HTN also uncontrolled with morbid obesity, Afib on AC, CHF, previous DVT, complicated with anemia of CKD and secondary hyperpara. Lost to follow up since 2017. Also with PAD. He has been evaluated by urology due to bladder diverticulum. Chronic foot ulcer (in remission now). Advised to be evaluated for ARRON as he snores. Hasn't had eval yet. Was born premature. No current issues. Doesn't really know all his meds. PAST MEDICAL HISTORY Diagnosis Date - Anemia - Atrial fibrillation ([facility]) coumadin managed by cardiology - Cellulitis and abscess of leg, except foot 10/20/2004 - CHF (congestive heart failure) ([facility]) - CKD (chronic kidney disease) stage 4, GFR 15-29 ml/min ([facility]) - Depressive disorder, not elsewhere classified 10/20/2004 - Diabetes ([facility]) 10/20/2004 Type 2; retinopathy, neuropathy, CKD - DVT (deep venous thrombosis) ([facility]) - GERD (gastroesophageal reflux disease) - Mixed hyperlipidemia 03/28/2008 - Morbidly obese ([facility]) - Panic disorder with agoraphobia - Proteinuria 10/20/2004 - PVD (peripheral vascular disease) ([facility]) - Unspecified venous (peripheral) insufficiency left leg; related to superficial venous thrombosis from complications from having to have blood transfusion when baby PAST SURGICAL HISTORY Procedure Laterality Date - COLONOSCOP W/ OR W/O BRSH SPEC 08/28/2012 Colonoscopy - EGD W/O OR W/BRUSH/WASH 02/24/2016 EGD mac - PAST SURGICAL HISTORY OF Left 1991 removal of blood clot left leg; superficial - REMOVAL OF TONSILS,<12 Y/O Tonsillectomy - REVISE MEDIAN N/CARPAL TUNNEL SURG Bilateral Carpal tunnel decomp Current Outpatient Prescriptions: gabapentin (NEURONTIN) 300 mg capsule Take 2 capsules by mouth twice daily for 180 days. As directed Insulin NPH human (HUMULIN N NPH INSULIN KWIKPEN) 100 unit/mL (3 mL) inpn injection pen INJECT 10 UNITS UNDER THE SKIN DAILY AT BEDTIME BD ULTRAFINE III MINI PEN 31 gauge x 3/16 ndle USE WITH INSULIN PENS ONCE DAILY glipiZIDE (GLUCOTROL) 5 mg tablet TAKE 1 TABLET DAILY AT DINNER (DISCONTINUE GLIMEPIRIDE) furosemide (LASIX) 40 mg tablet TAKE 1 TABLET DAILY venlafaxine ER (EFFEXOR XR) 150 mg 24 hr capsule TAKE 1 CAPSULE DAILY warfarin (COUMADIN) 5 mg tablet Take 2 tablets by mouth once daily. Or as directed warfarin (COUMADIN) 1 mg tablet Take 3 tablets by mouth once daily. Or as directed carvedilol (COREG) 12.5 mg tablet TAKE 1 TABLET TWICE A DAY dicyclomine (BENTYL) 20 mg tablet TAKE 1 TABLET THREE TIMES A DAY BEFORE MEALS ranitidine (ZANTAC) 150 mg tablet TAKE 1 TABLET TWICE A DAY carvedilol (COREG) 25 mg tablet TAKE 1 TABLET TWICE A DAY (TAKE WITH 12.5MG TWICE A DAY FOR A TOTAL OF 37.5MG TWICE A DAY) pravastatin (PRAVACHOL) 80 mg tablet TAKE 1 TABLET DAILY busPIRone (BUSPAR) 10 mg tablet Take 1 tablet by mouth twice daily. Psyllium Seed-Sucrose (METAMUCIL, SUGAR,) powd Take 1 Tablespoonful by mouth as needed. Cholecalciferol, Vitamin D3, 5,000 unit tab Take 1 tablet by mouth once daily. CALCIUM CARBONATE/VITAMIN D3 (VITAMIN D-3 ORAL) Take 1 tablet by mouth once daily. warfarin (COUMADIN) 5 mg tablet Alternating 12 mg every other day with 13 mg every other day (Uses weekly box that fills every week) MULTIVITAMIN ORAL TAB Take one(1) tablet daily. NIFEdipine ER (PROCARDIA XL) 90 mg 24 hr tablet Take 1 tablet by mouth daily at bedtime. No current facility-administered medications for this visit. ALLERGIES Allergen Reactions - Cephalexin Rash, Swelling - Penicillins Unknown childhood Social History Marital status: Spouse name: Years of education: Number of children: 0 Social History Main Topics Smoking status: Former Smoker Packs/day: 1.00 Years: 22.00 Types: Cigarettes, Pipe, Cigars Quit date: 09/26/2002 Smokeless tobacco: Former User Types: Chew Quit date: 02/20/2003 Comment: only chewed brief period Alcohol use: No Comment: Rare Drug use: No Sexual activity: Not Currently FAMILY HISTORY Problem Relation Age of Onset - Heart Mother - Diabetes Mother - other (black lung) Father - Diabetes Paternal Grandfather Review of systems: General: Negative for weight loss, night sweats, fever, and fatigue Head/Neck: Negative for photophobia, oral ulcers/sores, metallic or bitter taste, epistaxis, and chronic nasal congestion Cardiac: Negative for syncope, palpitations, orthopnea, lightheadedness, dizziness, chest pain or pressure, and PND Vascular: Negative for raynauds, edema, and claudication Pulmonary: Negative for hemoptosis, dyspnea, and cough GastroIntestinal: Negative for nausea, loss of appetite, emesis, diarrhea, constipation, and abdominal pain Genito-Urinary: Negative for urinary hesitancy, urinary frequency, straining, pink or red urine, pain with urination, nocturia, groin pain, frothy urine, flank pain, and decreased urine Musculoskeletal: Negative for joint swelling, and joint pain Neurologic: Negative for weakness, tremor, parathesias, and numbness Skin: Negative for rash, photosensitivity, and malar rash Hematology: Negative for easy bruising, and easy bleeding Endocrinology: Negative for hypoglycemic events, and heat or cold intolerance Other: Positive for excessive snoring; Negative for morning headache, and daytime somnolence No enlarged lymph nodes, lymphadenopathy or lymph tenderness. BP 162/87 (BP Site: Right Arm, BP Position: Sitting, BP Cuff Size: Regular Adult) Pulse 82 Ht 172.7 cm (5' 8) Wt (!) 155.4 kg (342 lb 11.2 oz) BMI 52.11 kg/m? Average BP (BpTru): 162/87 BpTRU BP #1 discard value (BpTru): 180/87 Pulse #1 Discard Value (BpTru): 81 beats/min BP #2 (BpTru): 157/89 Pulse #2 (BpTru): 83 beats/min BP #3 (BpTru): 168/79 Pulse #3 (BpTru): 82 beats/min BP #4 (BpTru): 164/86 Pulse #4 (BpTru): 80 beats/min BP #5 (BpTru): 156/92 Pulse #5 (BpTru): 76 beats/min BP #6 (BpTru): 166/89 Pulse #6 (BpTru): 89 beats/min Average BP (BpTru): 162/87 Average Pulse (BpTru): 82 beats/min BP cuff location: Right upper arm BP cuff size: regular adult Exam: Constitutional: morbidly obese. Mental status: alert and oriented x 3. No acute distress. Lymphadenopathy: No submandibular, subpraclavicular, anterior cervical, posterior cervical lymphadenopathy. ENT: Oral mucosa: moist, no lesions, no jaundice. Oropharynx no lesions, erythema or exudate. No thyromegaly. Eyes: No icterus, not injected. Cardiovascular: Heart: normal rate, irregularly irregular rhythm, no murmur, no rubs. No carotid bruits. Lungs: Symmetric lung expansion. No tenderness on percussion. Clear to auscultation without wheezes, rales or rubs. Back: No costovertebral angle tenderness to palpation. No spine tenderness to palpation. No paraspinal muscle tenderness to palpation. Abdomen: morbidly obese. . Bowel sounds present and normoactive. Non-tender to palpation. Non-distended. No epigastric bruits, no renal bruits. No kidney enlargement. No hepatomegaly. No splenomegaly Extremities: + edema in R lower Ext, L thigh larger than the R. No deformities. Skin: No jaundice. No rash. No malar rash. Musculoskeletal: Joints without swelling, tenderness, erythema, warmth. No muscle tenderness. FROM Neuro: no major focal deficits. No asterixis. Labs reviewed Hemoglobin (g/dL) Date Value 12/29/2016 10.6 Hematocrit (%) Date Value 12/29/2016 33.1 WBC (k/uL) Date Value 12/29/2016 6.84 Glucose (mg/dL) Date Value 12/25/2017 148 Potassium (mmol/L) Date Value 12/25/2017 5.0 Sodium (mmol/L) Date Value 12/25/2017 143 Chloride (mmol/L) Date Value 12/25/2017 109 CO2 (mmol/L) Date Value 12/25/2017 20 Creatinine (mg/dL) Date Value 12/25/2017 2.90 BUN (mg/dL) Date Value 12/25/2017 61 Anion Gap (mmol/L) Date Value 12/25/2017 14 Calcium (mg/dL) Date Value 12/25/2017 8.7 Protein, Total (g/dL) Date Value 12/25/2017 7.4 Albumin (g/dL) Date Value 12/25/2017 4.1 Bilirubin, Total (mg/dL) Date Value 12/25/2017 0.2 Alkaline Phosphatase (U/L) Date Value 12/25/2017 57 AST (U/L) Date Value 12/25/2017 29 ALT (U/L) Date Value 12/25/2017 23 pH, Urine Date Value Ref Range Status 11/03/2016 5.0 4.5 - 8.0 Final Specific Shirley, Ur Date Value Ref Range Status 11/03/2016 1.007 1.005 - 1.030 Final Glucose, Urine Date Value Ref Range Status 11/03/2016 Negative Negative mg/dL Final Bilirubin, Urine Date Value Ref Range Status 11/03/2016 Negative Negative Final Ketones, Urine Date Value Ref Range Status 11/03/2016 Negative Negative Final Hemoglobin/Blood,Ur Date Value Ref Range Status 11/03/2016 Trace (A) Negative Final Protein, Urine Date Value Ref Range Status 11/03/2016 30 (A) Negative mg/dL Final Urobilinogen Date Value Ref Range Status 11/03/2016 Normal Normal Final Nitrites Date Value Ref Range Status 11/03/2016 Negative Negative Final WBC, Urine Date Value Ref Range Status 11/03/2016 0-5 0 - 5 /HPF Final Assessment/Plan- P ICD-10-CM PL 1. Type 2 diabetes mellitus with diabetic nephropathy, with long-term current use of insulin ([facility]) E11.21?... Change Dx 2. CKD (chronic kidney disease) stage 4, GFR 15-29 ml/min ([facility]) N18.4 Change Dx 3. Uncontrolled hypertension I10 Change Dx 4. Proteinuria, unspecified type R80.9 Change Dx 5. BMI 50.0-59.9, adult ([facility]) Z68.43 Change Dx 6. Ulcer of foot, chronic, left, with unspecified severity ([facility]) L97.529 Change Dx 7. Vitamin D deficiency, unspecified E55.9 Change Dx 8. Chronic atrial fibrillation ([facility]) I48.2 Change Dx 9. Venous (peripheral) insufficiency I87.2 Change Dx 10. Congestive heart failure, unspecified HF chronicity, unspecified heart failure type ([facility]) I50.9 Change Dx 11. Anemia in stage 4 chronic kidney disease ([facility]) N18.4?... Change Dx 12. Secondary hyperparathyroidism of renal origin ([facility]) N25.81 Change Dx 13. PAD (peripheral artery disease) ([facility]) I73.9 Advanced renal disease with multiple other severe co-morbid conditions. We discussed high risk of ESRD. Needs arm preservation. Follow up much closer. Will increase nifedipine to 90 mg/night. May still want to try very low dose SRINIVASA inh or ARB in the future if renal function stable and will need close K monitoring as he had hyperK on them. Dr. Markham wanted to try Patiromer but insurance didn't approve. RTC in 3 months with labs, SURJIT Time spent in direct contact with the patient, counseling and coordination of care over 40 minutes. Greater than 50% of the visit was spent with face to face counselling, discussion of the above topics, and coordination of care. All questions answered. Thank You for allowing us to participate in his care. Tyshawn Richardson MD. RADHA. [phone] Staff. Nephrology and Hypertension. January 25, 2018 4:13 PM CNOV Observed: 01/25/2018 Status: COMPLETED Source: [place] 3:30 PM [facility] REPOSITORY Office Visit (NEPHTW) MAREK RAMSAY ([id number]) 1960 M Date Time Provider Department 01/25/18 3:30 PM TYSHAWN RICHARDSON NEPHTW During your visit today, we recorded the following information about you: Pulse Blood pressure Weight Height 82/minute 162/87 155.4 kg 1.727 m Tyshawn Richardson MD 01/25/2018 3:59 PM Signed Increase dose of nifedipine to 90 mg/night (you can take the ones at home but you will need to take 3 tab/night). Remember not to use left arm for blood or BP measurement. Avoid NSAIDs (non steroidal antiinflammatory drugs) or pain killers such as ibuprofen, Advil, naproxen, Aleve, indomethacin, meloxicam (Mobic), diclofenac, daypro (Oxaprozin), ketorolac (Toradol), etodolac (Lodine), etc. And MCGOVERN 2 inhibitors (celebrex, etc.) Tylenol (acetaminophen) is OK. Tramadol also OK. Avoid taking proton pump inhibitors (PPIs) such as Omeprazole (Prilosec), Pantoprazole (Protonix), Dexlansoprazole (Dexilant), Esomeprazole (Nexium), Lansoprazole (Prevacid), Rabeprazole (Aciphex). You can replace them for H2 blockers or anti-reflux medications such as ranitidine (Zantac), famotidine (Pepcid), cimetidine (Tagamet), nizatidine (Axid). Hypertension education. I counseled the patient on the need to restrict dietary sodium intake to better control blood pressure. Sodium intake should not exceed 2400 mg per day. High sodium diet and/or foods high in sodium content should be avoided. Monitor sodium intake by reviewing nutritional labeling. Moderate aerobic exercise and weight control are beneficial on blood pressure control. We also discussed the importance of measuring blood pressure at home. Take your blood pressure (BP) 3-4 times/week in the morning. When You take it, take the BP 3 times on a row and make an average of these 3 readings and write it down in your log book. Take the blood pressure while sitting down, legs uncrossed and after having rested at least 10-15 minutes. Write down the numbers and bring them to your next appointment. Limit caffeinated drinks. Do blood labs at least 1-2 weeks prior to next visit in 3 months with nurse practitioner. Tyshawn Richardson MD 01/25/2018 4:22 PM Signed [facility] NEPHROLOGY AND HYPERTENSION [facility] NEPHROLOGY. Patient Name: Marek Ramsay CHIEF COMPLAINT: my kidneys. First visit: January 25, 2018 HPI: Marek Ramsay is a 57 year old white male. Sent for evaluation of CKD and proteinuria. Previously seen by Dr. Markham. Known CKD 4 likely due to uncontrolled DM 2 on insulin and HTN also uncontrolled with morbid obesity, Afib on AC, CHF, previous DVT, complicated with anemia of CKD and secondary hyperpara. Lost to follow up since 2017. Also with PAD. He has been evaluated by urology due to bladder diverticulum. Chronic foot ulcer (in remission now). Advised to be evaluated for ARRON as he snores. Hasn't had eval yet. Was born premature. No current issues. Doesn't really know all his meds. PAST MEDICAL HISTORY Diagnosis Date - Anemia - Atrial fibrillation ([facility]) coumadin managed by cardiology - Cellulitis and abscess of leg, except foot 10/20/2004 - CHF (congestive heart failure) ([facility]) - CKD (chronic kidney disease) stage 4, GFR 15-29 ml/min ([facility]) - Depressive disorder, not elsewhere classified 10/20/2004 - Diabetes ([facility]) 10/20/2004 Type 2; retinopathy, neuropathy, CKD - DVT (deep venous thrombosis) ([facility]) - GERD (gastroesophageal reflux disease) - Mixed hyperlipidemia 03/28/2008 - Morbidly obese ([facility]) - Panic disorder with agoraphobia - Proteinuria 10/20/2004 - PVD (peripheral vascular disease) ([facility]) - Unspecified venous (peripheral) insufficiency left leg; related to superficial venous thrombosis from complications from having to have blood transfusion when baby PAST SURGICAL HISTORY Procedure Laterality Date - COLONOSCOP W/ OR W/O BRSH SPEC 08/28/2012 Colonoscopy - EGD W/O OR W/BRUSH/WASH 02/24/2016 EGD mac - PAST SURGICAL HISTORY OF Left 1991 removal of blood clot left leg; superficial - REMOVAL OF TONSILS,<12 Y/O Tonsillectomy - REVISE MEDIAN N/CARPAL TUNNEL SURG Bilateral Carpal tunnel decomp Current Outpatient Prescriptions: gabapentin (NEURONTIN) 300 mg capsule Take 2 capsules by mouth twice daily for 180 days. As directed Insulin NPH human (HUMULIN N NPH INSULIN KWIKPEN) 100 unit/mL (3 mL) inpn injection pen INJECT 10 UNITS UNDER THE SKIN DAILY AT BEDTIME BD ULTRAFINE III MINI PEN 31 gauge x 16 ndle USE WITH INSULIN PENS ONCE DAILY glipiZIDE (GLUCOTROL) 5 mg tablet TAKE 1 TABLET DAILY AT DINNER (DISCONTINUE GLIMEPIRIDE) furosemide (LASIX) 40 mg tablet TAKE 1 TABLET DAILY venlafaxine ER (EFFEXOR XR) 150 mg 24 hr capsule TAKE 1 CAPSULE DAILY warfarin (COUMADIN) 5 mg tablet Take 2 tablets by mouth once daily. Or as directed warfarin (COUMADIN) 1 mg tablet Take 3 tablets by mouth once daily. Or as directed carvedilol (COREG) 12.5 mg tablet TAKE 1 TABLET TWICE A DAY dicyclomine (BENTYL) 20 mg tablet TAKE 1 TABLET THREE TIMES A DAY BEFORE MEALS ranitidine (ZANTAC) 150 mg tablet TAKE 1 TABLET TWICE A DAY carvedilol (COREG) 25 mg tablet TAKE 1 TABLET TWICE A DAY (TAKE WITH 12.5MG TWICE A DAY FOR A TOTAL OF 37.5MG TWICE A DAY) pravastatin (PRAVACHOL) 80 mg tablet TAKE 1 TABLET DAILY busPIRone (BUSPAR) 10 mg tablet Take 1 tablet by mouth twice daily. Psyllium Seed-Sucrose (METAMUCIL, SUGAR,) powd Take 1 Tablespoonful by mouth as needed. Cholecalciferol, Vitamin D3, 5,000 unit tab Take 1 tablet by mouth once daily. CALCIUM CARBONATE/VITAMIN D3 (VITAMIN D-3 ORAL) Take 1 tablet by mouth once daily. warfarin (COUMADIN) 5 mg tablet Alternating 12 mg every other day with 13 mg every other day (Uses weekly box that fills every week) MULTIVITAMIN ORAL TAB Take one(1) tablet daily. NIFEdipine ER (PROCARDIA XL) 90 mg 24 hr tablet Take 1 tablet by mouth daily at bedtime. No current facility-administered medications for this visit. ALLERGIES Allergen Reactions - Cephalexin Rash, Swelling - Penicillins Unknown childhood Social History Marital status: Spouse name: Years of education: Number of children: 0 Social History Main Topics Smoking status: Former Smoker Packs/day: 1.00 Years: 22.00 Types: Cigarettes, Pipe, Cigars Quit date: 09/26/2002 Smokeless tobacco: Former User Types: Chew Quit date: 02/20/2003 Comment: only chewed brief period Alcohol use: No Comment: Rare Drug use: No Sexual activity: Not Currently FAMILY HISTORY Problem Relation Age of Onset - Heart Mother - Diabetes Mother - other (black lung) Father - Diabetes Paternal Grandfather Review of systems: General: Negative for weight loss, night sweats, fever, and fatigue Head/Neck: Negative for photophobia, oral ulcers/sores, metallic or bitter taste, epistaxis, and chronic nasal congestion Cardiac: Negative for syncope, palpitations, orthopnea, lightheadedness, dizziness, chest pain or pressure, and PND Vascular: Negative for raynauds, edema, and claudication Pulmonary: Negative for hemoptosis, dyspnea, and cough GastroIntestinal: Negative for nausea, loss of appetite, emesis, diarrhea, constipation, and abdominal pain Genito-Urinary: Negative for urinary hesitancy, urinary frequency, straining, pink or red urine, pain with urination, nocturia, groin pain, frothy urine, flank pain, and decreased urine Musculoskeletal: Negative for joint swelling, and joint pain Neurologic: Negative for weakness, tremor, parathesias, and numbness Skin: Negative for rash, photosensitivity, and malar rash Hematology: Negative for easy bruising, and easy bleeding Endocrinology: Negative for hypoglycemic events, and heat or cold intolerance Other: Positive for excessive snoring; Negative for morning headache, and daytime somnolence No enlarged lymph nodes, lymphadenopathy or lymph tenderness. BP 162/87 (BP Site: Right Arm, BP Position: Sitting, BP Cuff Size: Regular Adult) Pulse 82 Ht 172.7 cm (5' 8) Wt (!) 155.4 kg (342 lb 11.2 oz) BMI 52.11 kg/m? Average BP (BpTru): 162/87 BpTRU BP #1 discard value (BpTru): 180/87 Pulse #1 Discard Value (BpTru): 81 beats/min BP #2 (BpTru): 157/89 Pulse #2 (BpTru): 83 beats/min BP #3 (BpTru): 168/79 Pulse #3 (BpTru): 82 beats/min BP #4 (BpTru): 164/86 Pulse #4 (BpTru): 80 beats/min BP #5 (BpTru): 156/92 Pulse #5 (BpTru): 76 beats/min BP #6 (BpTru): 166/89 Pulse #6 (BpTru): 89 beats/min Average BP (BpTru): 162/87 Average Pulse (BpTru): 82 beats/min BP cuff location: Right upper arm BP cuff size: regular adult Exam: Constitutional: morbidly obese. Mental status: alert and oriented x 3. No acute distress. Lymphadenopathy: No submandibular, subpraclavicular, anterior cervical, posterior cervical lymphadenopathy. ENT: Oral mucosa: moist, no lesions, no jaundice. Oropharynx no lesions, erythema or exudate. No thyromegaly. Eyes: No icterus, not injected. Cardiovascular: Heart: normal rate, irregularly irregular rhythm, no murmur, no rubs. No carotid bruits. Lungs: Symmetric lung expansion. No tenderness on percussion. Clear to auscultation without wheezes, rales or rubs. Back: No costovertebral angle tenderness to palpation. No spine tenderness to palpation. No paraspinal muscle tenderness to palpation. Abdomen: morbidly obese. . Bowel sounds present and normoactive. Non-tender to palpation. Non-distended. No epigastric bruits, no renal bruits. No kidney enlargement. No hepatomegaly. No splenomegaly Extremities: + edema in R lower Ext, L thigh larger than the R. No deformities. Skin: No jaundice. No rash. No malar rash. Musculoskeletal: Joints without swelling, tenderness, erythema, warmth. No muscle tenderness. FROM Neuro: no major focal deficits. No asterixis. Labs reviewed Hemoglobin (g/dL) Date Value 12/29/2016 10.6 Hematocrit (%) Date Value 12/29/2016 33.1 WBC (k/uL) Date Value 12/29/2016 6.84 Glucose (mg/dL) Date Value 12/25/2017 148 Potassium (mmol/L) Date Value 12/25/2017 5.0 Sodium (mmol/L) Date Value 12/25/2017 143 Chloride (mmol/L) Date Value 12/25/2017 109 CO2 (mmol/L) Date Value 12/25/2017 20 Creatinine (mg/dL) Date Value 12/25/2017 2.90 BUN (mg/dL) Date Value 12/25/2017 61 Anion Gap (mmol/L) Date Value 12/25/2017 14 Calcium (mg/dL) Date Value 12/25/2017 8.7 Protein, Total (g/dL) Date Value 12/25/2017 7.4 Albumin (g/dL) Date Value 12/25/2017 4.1 Bilirubin, Total (mg/dL) Date Value 12/25/2017 0.2 Alkaline Phosphatase (U/L) Date Value 12/25/2017 57 AST (U/L) Date Value 12/25/2017 29 ALT (U/L) Date Value 12/25/2017 23 pH, Urine Date Value Ref Range Status 11/03/2016 5.0 4.5 - 8.0 Final Specific [place], Ur Date Value Ref Range Status 11/03/2016 1.007 1.005 - 1.030 Final Glucose, Urine Date Value Ref Range Status 11/03/2016 Negative Negative mg/dL Final Bilirubin, Urine Date Value Ref Range Status 11/03/2016 Negative Negative Final Ketones, Urine Date Value Ref Range Status 11/03/2016 Negative Negative Final Hemoglobin/Blood,Ur Date Value Ref Range Status 11/03/2016 Trace (A) Negative Final Protein, Urine Date Value Ref Range Status 11/03/2016 30 (A) Negative mg/dL Final Urobilinogen Date Value Ref Range Status 11/03/2016 Normal Normal Final Nitrites Date Value Ref Range Status 11/03/2016 Negative Negative Final WBC, Urine Date Value Ref Range Status 11/03/2016 0-5 0 - 5 /HPF Final Assessment/Plan- P ICD-10-CM PL 1. Type 2 diabetes mellitus with diabetic nephropathy, with long-term current use of insulin ([facility]) E11.21?... Change Dx 2. CKD (chronic kidney disease) stage 4, GFR 15-29 ml/min ([facility]) N18.4 Change Dx 3. Uncontrolled hypertension I10 Change Dx 4. Proteinuria, unspecified type R80.9 Change Dx 5. BMI 50.0-59.9, adult ([facility]) Z68.43 Change Dx 6. Ulcer of foot, chronic, left, with unspecified severity ([facility]) L97.529 Change Dx 7. Vitamin D deficiency, unspecified E55.9 Change Dx 8. Chronic atrial fibrillation ([facility]) I48.2 Change Dx 9. Venous (peripheral) insufficiency I87.2 Change Dx 10. Congestive heart failure, unspecified HF chronicity, unspecified heart failure type ([facility]) I50.9 Change Dx 11. Anemia in stage 4 chronic kidney disease ([facility]) N18.4?... Change Dx 12. Secondary hyperparathyroidism of renal origin ([facility]) N25.81 Change Dx 13. PAD (peripheral artery disease) ([facility]) I73.9 Advanced renal disease with multiple other severe co-morbid conditions. We discussed high risk of ESRD. Needs arm preservation. Follow up much closer. Will increase nifedipine to 90 mg/night. May still want to try very low dose SRINIVASA inh or ARB in the future if renal function stable and will need close K monitoring as he had hyperK on them. Dr. Markham wanted to try Patiromer but insurance didn't approve. RTC in 3 months with labs, SURJIT Time spent in direct contact with the patient, counseling and coordination of care over 40 minutes. Greater than 50% of the visit was spent with face to face counselling, discussion of the above topics, and coordination of care. All questions answered. Thank You for allowing us to participate in his care. Tyshawn Richardson MD. [facility]. [phone] Staff. Nephrology and Hypertension. January 25, 2018 4:13 PM Referring Provider: PIERO MARKHAM [[id number]] Allergies As of Date: 01/25/2018 Noted Allergy Reaction CEPHALEXIN 10/20/2004 2 - Rash 7 - Swelling PENICILLINS 10/20/2004 16 - Unknown Comments: childhood Date Reviewed: 01/25/2018 Reviewed by: Tyshawn Richardson - Fully Assessed Reason for Visit: Proteinuria [1406] Primary Visit Diagnosis:Type 2 diabetes mellitus with diabetic nephropathy, with long-term current use of insulin ([facility]) [E11.21, Z79.4] Other Visit Diagnoses:CKD (chronic kidney disease) stage 4, GFR 15-29 ml/min ([facility]) [N18.4] Uncontrolled hypertension [I10] Proteinuria, unspecified type [R80.9] BMI 50.0-59.9, adult ([facility]) [Z68.43] Ulcer of foot, chronic, left, with unspecified severity ([facility]) [L97.529] Vitamin D deficiency, unspecified [E55.9] Chronic atrial fibrillation ([facility]) [I48.2] Venous (peripheral) insufficiency [I87.2] Congestive heart failure, unspecified HF chronicity, unspecified heart failure type ([facility]) [I50.9] Anemia in stage 4 chronic kidney disease ([facility]) [N18.4, D63.1] Secondary hyperparathyroidism of renal origin ([facility]) [N25.81] PAD (peripheral artery disease) ([facility]) [I73.9] Order(s):UA DIP, URINE (POC) [[id number]] Order #: [id number]. #:[id number] [id number] FUNCTION PANEL [SQRFP] Order #: [id number] FUTURE CBC + DIFF [SQCBCDIF] Order #: [id number] FUTURE PTH INTACT BLD [SQPTHI] Order #: [id number] FUTURE VITAMIN D 25 HYDROXY [SQVITD] Order #: [id number] FUTURE NIFEdipine ER (PROCARDIA XL) 90 mg 24 hr tabletTake 1 tablet by mouth daily at bedtime.Disp: 90 tabletRfl: 3 Prescriptions as of 01/25/2018 Sig: GABAPENTIN 300 MG CAPSULE Take 2 capsules by mouth twic* INSULIN NPH ISOPHANE U-100 HU* INJECT 10 UNITS UNDER THE SKI* BD ULTRA-FINE MINI PEN NEEDLE* USE WITH INSULIN PENS ONCE DA* GLIPIZIDE 5 MG TABLET TAKE 1 TABLET DAILY AT DINNER* FUROSEMIDE 40 MG TABLET TAKE 1 TABLET DAILY VENLAFAXINE ER 150 MG CAPSULE* TAKE 1 CAPSULE DAILY WARFARIN 5 MG TABLET Take 2 tablets by mouth once * WARFARIN 1 MG TABLET Take 3 tablets by mouth once * CARVEDILOL 12.5 MG TABLET TAKE 1 TABLET TWICE A DAY DICYCLOMINE 20 MG TABLET TAKE 1 TABLET THREE TIMES A D* RANITIDINE 150 MG TABLET TAKE 1 TABLET TWICE A DAY CARVEDILOL 25 MG TABLET TAKE 1 TABLET TWICE A DAY (TA* PRAVASTATIN 80 MG TABLET TAKE 1 TABLET DAILY BUSPIRONE 10 MG TABLET Take 1 tablet by mouth twice * PSYLLIUM SEED (SUGAR) ORAL PO* Take 1 Tablespoonful by mouth* CHOLECALCIFEROL (VITAMIN D3) * Take 1 tablet by mouth once d* VITAMIN D-3 ORAL Take 1 tablet by mouth once d* WARFARIN 5 MG TABLET Alternating 12 mg every other* MULTIVITAMIN TABLET Take one(1) tablet daily. NIFEDIPINE ER 90 MG TABLET,EX* Take 1 tablet by mouth daily * Problem List As Of Date 01/25/2018 Noted Resolved BMI 50.0-59.9, adult ([facility]) [Z68.43] INVALID FOR* Cellulitis and abscess of leg, except foot [L03*INVALID FOR*04/05/2013 Phlebitis and thrombophlebitis of superficial v*INVALID FOR*04/05/2013 Recurrent major depression in partial remission*INVALID FOR* Type 2 diabetes mellitus with proteinuria or mi*INVALID FOR*09/18/2013 Venous (peripheral) insufficiency [I87.2] More... MIXED HYPERLIPIDEMIA [E78.2] INVALID FOR* Panic disorder with agoraphobia [F40.01] Leg cramps [R25.2] INVALID FOR* More... Uncontrolled hypertension [I10] INVALID FOR* Diverticulum of bladder [N32.3] INVALID FOR* Unspecified venous (peripheral) insufficiency [* More... Proteinuria [R80.9] INVALID FOR* Atrial fibrillation ([facility]) [I48.91] More... Anemia in stage 4 chronic kidney disease ([facility]) * GERD (gastroesophageal reflux disease) [K21.9] Morbid obesity (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) [L97.509] INVALID FOR* Vitamin D deficiency, unspecified [E55.9] INVALID FOR* Congestive heart failure ([facility]) [I50.9] INVALID FOR* CKD (chronic kidney disease) stage 4, GFR 15-29*INVALID FOR* Secondary hyperparathyroidism of renal origin (*INVALID FOR* PAD (peripheral artery disease) ([facility]) [I73.9] INVALID FOR* Other instructions from your clinician: Increase dose of nifedipine to 90 mg/night (you can take the ones at home but you will need to take 3 tab/night). Remember not to use left arm for blood or BP measurement. Avoid NSAIDs (non steroidal antiinflammatory drugs) or pain killers such as ibuprofen, Advil, naproxen, Aleve, indomethacin, meloxicam (Mobic), diclofenac, daypro (Oxaprozin), ketorolac (Toradol), etodolac (Lodine), etc. And MCGOVERN 2 inhibitors (celebrex, etc.) Tylenol (acetaminophen) is OK. Tramadol also OK. Avoid taking proton pump inhibitors (PPIs) such as Omeprazole (Prilosec), Pantoprazole (Protonix), Dexlansoprazole (Dexilant), Esomeprazole (Nexium), Lansoprazole (Prevacid), Rabeprazole (Aciphex). You can replace them for H2 blockers or anti-reflux medications such as ranitidine (Zantac), famotidine (Pepcid), cimetidine (Tagamet), nizatidine (Axid). Hypertension education. I counseled the patient on the need to restrict dietary sodium intake to better control blood pressure. Sodium intake should not exceed 2400 mg per day. High sodium diet and/or foods high in sodium content should be avoided. Monitor sodium intake by reviewing nutritional labeling. Moderate aerobic exercise and weight control are beneficial on blood pressure control. We also discussed the importance of measuring blood pressure at home. Take your blood pressure (BP) 3-4 times/week in the morning. When You take it, take the BP 3 times on a row and make an average of these 3 readings and write it down in your log book. Take the blood pressure while sitting down, legs uncrossed and after having rested at least 10-15 minutes. Write down the numbers and bring them to your next appointment. Limit caffeinated drinks. Do blood labs at least 1-2 weeks prior to next visit in 3 months with nurse practitioner. Prescriptions ordered this encounter Disp Refills Start End NIFEDIPINE ER 90 MG TABLET,EXTENDED * 90 t* 3 01/25/2018 Route: ORAL Sig: Take 1 tablet by mouth daily at bedtime. Medications Discontinued During This Encounter NIFEdipine XL (AFEDITAB CR) 30 mg 24* 90 t* 5 11/28/2016 01/25/2018 Route: ORAL Sig: Take 1 tablet by mouth once daily. Disc: Reason for discontinue is not on file. Disposition: Return in about 3 months (around 04/25/2018). Follow-up and Disposition History Recorded Letter Text Department of Nephrology/Hypertension [address] [place] [address] Appointments: January 25, 2018 Marek Ramsay [address] [address] CC # [id number] Attention To Whom It May Concern: This letter is to certify that he was in outpatient clinic today. Diagnosis: CKD 4 Sincerely, Tyshawn Richardson MD (Signed electronically) Encounter Status:Closed by TYSHAWN RICHARDSON MD on 01/25/18 CNCO Observed: 01/25/2018 Status: COMPLETED Source: [place] 12:00 [facility] REPOSITORY Letter Text Marek Ramsay [place] [address] 01/25/2018 RE: Marek Ramsay To Whom it May Concern: This is to confirm that the above patient has been under my care for a medical problem. He is able to return to work 01/26/18 . Thank you for your cooperation in this matter. Sincerely yours, Tyshawn Richardson MD CNPTOUTREACH Observed: 01/09/2018 Status: COMPLETED Source: [place] 12:00 AM [facility] REPOSITORY Patient Outreach ([facility]) MAREK RAMSAY ([id number]) 1960 M Date Time Provider Department [facility] your visit today, we recorded the following information about you: Allergies As of Date: 01/09/2018 Noted Allergy Reaction CEPHALEXIN 10/20/2004 2 - Rash 7 - Swelling PENICILLINS 10/20/2004 16 - Unknown Comments: childhood Date Reviewed: 12/28/2017 Reviewed by: Josy Townsend MA - Fully Assessed Visit Diagnosis:Medication management [Z79.899] Order(s):[facility] Order #: [id number] FUTURE Prescriptions as of 01/09/2018 Sig: BD ULTRA-FINE MINI PEN NEEDLE* USE WITH INSULIN PENS ONCE DA* BUSPIRONE 10 MG TABLET Take 1 tablet by mouth twice * VITAMIN D-3 ORAL Take 1 tablet by mouth once d* CARVEDILOL 12.5 MG TABLET TAKE 1 TABLET TWICE A DAY CARVEDILOL 25 MG TABLET TAKE 1 TABLET TWICE A DAY (TA* CHOLECALCIFEROL (VITAMIN D3) * Take 1 tablet by mouth once d* DICYCLOMINE 20 MG TABLET TAKE 1 TABLET THREE TIMES A D* FUROSEMIDE 40 MG TABLET TAKE 1 TABLET DAILY GLIPIZIDE 5 MG TABLET TAKE 1 TABLET DAILY AT DINNER* INSULIN NPH ISOPHANE U-100 HU* INJECT 10 UNITS UNDER THE SKI* MULTIVITAMIN TABLET Take one(1) tablet daily. PRAVASTATIN 80 MG TABLET TAKE 1 TABLET DAILY PSYLLIUM SEED (SUGAR) ORAL PO* Take 1 Tablespoonful by mouth* RANITIDINE 150 MG TABLET TAKE 1 TABLET TWICE A DAY VENLAFAXINE ER 150 MG CAPSULE* TAKE 1 CAPSULE DAILY WARFARIN 1 MG TABLET Take 3 tablets by mouth once * WARFARIN 5 MG TABLET Alternating 12 mg every other* WARFARIN 5 MG TABLET Take 2 tablets by mouth once * X GABAPENTIN 300 MG CAPSULE TAKE 2 CAPSULES IN THE MORNIN* X NIFEDIPINE ER 30 MG TABLET,EX* Take 1 tablet by mouth once d* Problem List As Of Date 01/09/2018 Noted Resolved BMI 50.0-59.9, adult ([facility]) [Z68.43] INVALID FOR* Cellulitis and abscess of leg, except foot [L03*INVALID FOR*04/05/2013 Phlebitis and thrombophlebitis of superficial v*INVALID FOR*04/05/2013 Recurrent major depression in partial remission*INVALID FOR* Type 2 diabetes mellitus with proteinuria or mi*INVALID FOR*09/18/2013 Venous (peripheral) insufficiency [I87.2] More... MIXED HYPERLIPIDEMIA [E78.2] INVALID FOR* Panic disorder with agoraphobia [F40.01] Leg cramps [R25.2] INVALID FOR* More... 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 Proteinuria [R80.9] INVALID FOR* Atrial fibrillation (HCC) [I48.91] More... Anemia [D64.9] GERD (gastroesophageal reflux disease) [K21.9] Morbid obesity (HCC) [E66.01] INVALID FOR* Controlled type 2 diabetes mellitus with diabet*INVALID FOR* Controlled type 2 diabetes mellitus with stage *INVALID FOR* Controlled type 2 diabetes mellitus with both e*INVALID FOR* Chronic foot ulcer (HCC) [L97.509] INVALID FOR* Vitamin D deficiency, unspecified [E55.9] INVALID FOR* Encounter Status:Closed by REYES DICKERSON on 02/09/18 OSITO Observed: 12/28/2017 Status: COMPLETED Source: [place] 4:00 PM [facility] REPOSITORY Office Visit (CAWSTR) MAREK RAMSAY ([id number]) 1960 M Date Time Provider Department 12/28/17 4:00 PM ADITYA AVILATR During your visit today, we recorded the following information about you: Pulse Blood pressure Weight Height 79/minute 140/82 156.3 kg 1.727 m Aditya Avila MD 12/28/2017 4:53 PM Signed PERTINENT CARDIAC HISTORY Atrial fibrillation CRF HTN HL DM Intolerant of SRINIVASA-I/arb - hyperkalemia CHF - diastolic ARRON ADHERENCE TO GUIDELINES SRINIVASA-I or ARB for HF with prior LVEF<40 (NQF 0081) - N/A ASA or Plavix for ASHD (NQF 0067) - N/A Beta ashlee for ASHD with prior OK or prior LVEF<40 (NQF 0070) - N/A Beta ashlee for HF with prior LVEF<40 (NQF 0083) - N/A SRINIVASA-I or ARB for ASHD with DM or prior LVEF<40 (NQF 0066) - hyperkalemia, CRF Statin therapy for ASHD or FHL or DM - met BMI documented and plan if >25 (NQF 0421) - lifestyle recommendation form Tobacco use screening and referral (NQF 0028) - lifestyle recommendation form Recommendation for whole food, plant based diet - lifestyle recommendation form CLINICAL IMPRESSION/PLAN: Marek Ramsay is doing well. He is still in atrial flutter. This will likely be a permanent rhythm for him. I have encouraged him to have a sleep study done and notify me when it is accomplished and when he is on effective therapy for sleep apnea. At that point, we can consider cardioversion. He has been advised to continue his current medication. He reports stable exercise tolerance. He has no known ischemic heart disease. I will see him in 6 months or as needed Written and verbal health teaching given to patient, patient verbalizes understanding and agrees with treatment plan. DIAGNOSIS FOR VISIT: Atrial fibrillation CHF HISTORY OF PRESENT ILLNESS Marek Ramsay returns for follow-up of multiple cardiac issues, as noted above. He reports that his renal function is stable. His CHF is well compensated. He's had no chest discomfort. He denies orthopnea and edema is under good control. He's had no syncope, TIAs, amaurosis or claudication. He's having some problems with foot pain and may need some minor surgery. He is unaware of his heart rhythm. He has not yet been able to get his sleep study done due to other issues. ALLERGIES: ALLERGIES Allergen Reactions - Cephalexin Rash, Swelling - Penicillins Unknown childhood CURRENT OUTPATIENT MEDICATIONS: Insulin NPH human (HUMULIN N NPH INSULIN KWIKPEN) 100 unit/mL (3 mL) inpn injection pen INJECT 10 UNITS UNDER THE SKIN DAILY AT BEDTIME BD ULTRAFINE III MINI PEN 31 gauge x 3/16 ndle USE WITH INSULIN PENS ONCE DAILY glipiZIDE (GLUCOTROL) 5 mg tablet TAKE 1 TABLET DAILY AT DINNER (DISCONTINUE GLIMEPIRIDE) furosemide (LASIX) 40 mg tablet TAKE 1 TABLET DAILY venlafaxine ER (EFFEXOR XR) 150 mg 24 hr capsule TAKE 1 CAPSULE DAILY warfarin (COUMADIN) 5 mg tablet Take 2 tablets by mouth once daily. Or as directed warfarin (COUMADIN) 1 mg tablet Take 3 tablets by mouth once daily. Or as directed carvedilol (COREG) 12.5 mg tablet TAKE 1 TABLET TWICE A DAY gabapentin (NEURONTIN) 300 mg capsule TAKE 2 CAPSULES IN THE MORNING AND 2 CAPSULES AT BEDTIME DIRECTED dicyclomine (BENTYL) 20 mg tablet TAKE 1 TABLET THREE TIMES A DAY BEFORE MEALS ranitidine (ZANTAC) 150 mg tablet TAKE 1 TABLET TWICE A DAY carvedilol (COREG) 25 mg tablet TAKE 1 TABLET TWICE A DAY (TAKE WITH 12.5MG TWICE A DAY FOR A TOTAL OF 37.5MG TWICE A DAY) pravastatin (PRAVACHOL) 80 mg tablet TAKE 1 TABLET DAILY busPIRone (BUSPAR) 10 mg tablet Take 1 tablet by mouth twice daily. NIFEdipine XL (AFEDITAB CR) 30 mg 24 hr tablet Take 1 tablet by mouth once daily. Psyllium Seed-Sucrose (METAMUCIL, SUGAR,) powd Take 1 Tablespoonful by mouth as needed. Cholecalciferol, Vitamin D3, 5,000 unit tab Take 1 tablet by mouth once daily. CALCIUM CARBONATE/VITAMIN D3 (VITAMIN D-3 ORAL) Take 1 tablet by mouth once daily. warfarin (COUMADIN) 5 mg tablet Alternating 12 mg every other day with 13 mg every other day (Uses weekly box that fills every week) MULTIVITAMIN ORAL TAB Take one(1) tablet daily. PHYSICAL EXAMINATION: VITAL SIGNS: BP 169/82 Pulse 79 Ht 5' 8 (1.73m) Wt 344 lb 8 oz (156.3kg) BMI 52.39 kg/(m2). Repeat blood pressure 140/82 Chest: Clear to auscultation. Trachea is midline. Air entry is equal. Cardiac:Irregularly irregular rhythm. S1 and S2 are normal. PMI is nondisplaced. There is a soft systolic ejection murmur. Carotids are brisk without bruits. JVP is less than 10 cm. Abdomen: Soft and nontender. He is obese. There are no pulsatile masses or bruits. No liver enlargement. Bowel sounds are active. Extremities: Chronic stasis changes with 1 plus edema. Pulses are intact and symmetrical. Recent labs were reviewed. Renal function is stable. LDL was 113. Electronically Signed: Aditya Avila MD December 28, 2017 3:36 PM CC: MD Aditya Stallings MD 12/28/2017 3:36 PM Signed LIFESTYLE CHANGE A healthy lifestyle is the most important component of your overall treatment plan. Please give serious thought to the following areas and commit to making assisted changes. EAT A WHOLE FOOD, PLANT BASED DIET The nutrition your body gets is more important than the medicine you take. What matters most is the overall way you eat. We encourage you to minimize the use of animal products (which include dairy and all meats except fatty fish) and use whole, unprocessed plant foods to provide your protein, vitamins and other nutrients. We have a lot of information to share with you on this topic. This is not a diet. It is a way of life that you will keep with you. EXERCISE REGULARLY It is not important to spend hours in the gym, lifting weights and perspiring heavily. A total of 2-3 hours per week of aerobic (causing you to be moderately short of breath) exercise is sufficient to improve your health. Talk to us before you begin a new exercise program, if you have heart disease or experience shortness of breath or chest pain. REDUCE STRESS Chronic emotional and physical stress leads to disease. Ways of reducing stress include meditation, visualization, prayer, yoga and other forms of relaxation therapy. Consistency is the cheng. Find a technique that works for you and do it every day. CULTIVATE RELATIONSHIPS Loneliness and isolation have a major negative impact on health. Seek out others who can love, care for and nurture you. Avoid hurtful relationships. MAINTAIN IDEAL BODY WEIGHT The best way to do this is to do all the things above. Our bodies naturally find the right weight if we keep moving and feed ourselves the right food. If your BMI is greater than 25, we strongly recommend a referral to a weight management program. Please speak to us or your family physician about available programs. AVOID NICOTINE IN ALL FORMS This includes all tobacco products, whether chewed, smoked, vaped, or rubbed on the skin. Smoking cessation programs, which can make use of tobacco substitutes, medications to suppress cravings and behavior management, are available. Please contact your family physician about programs in your area. Referring Provider: ADITYA AVILA [[id number]] Allergies As of Date: 12/28/2017 Noted Allergy Reaction CEPHALEXIN 10/20/2004 2 - Rash 7 - Swelling PENICILLINS 10/20/2004 16 - Unknown Comments: childhood Date Reviewed: 12/28/2017 Reviewed by: Josy Townsend MA - Fully Assessed Reason for Visit: Established Patient [[id number]] Primary Visit Diagnosis:Atypical atrial flutter ([facility]) [I48.4] Other Visit Diagnosis:Chronic diastolic CHF (congestive heart failure) ([facility]) [I50.32] Prescriptions as of 12/28/2017 Sig: INSULIN NPH ISOPHANE U-100 HU* INJECT 10 UNITS UNDER THE SKI* BD ULTRA-FINE MINI PEN NEEDLE* USE WITH INSULIN PENS ONCE DA* GLIPIZIDE 5 MG TABLET TAKE 1 TABLET DAILY AT DINNER* FUROSEMIDE 40 MG TABLET TAKE 1 TABLET DAILY VENLAFAXINE ER 150 MG CAPSULE* TAKE 1 CAPSULE DAILY WARFARIN 5 MG TABLET Take 2 tablets by mouth once * WARFARIN 1 MG TABLET Take 3 tablets by mouth once * CARVEDILOL 12.5 MG TABLET TAKE 1 TABLET TWICE A DAY GABAPENTIN 300 MG CAPSULE TAKE 2 CAPSULES IN THE MORNIN* DICYCLOMINE 20 MG TABLET TAKE 1 TABLET THREE TIMES A D* RANITIDINE 150 MG TABLET TAKE 1 TABLET TWICE A DAY CARVEDILOL 25 MG TABLET TAKE 1 TABLET TWICE A DAY (TA* PRAVASTATIN 80 MG TABLET TAKE 1 TABLET DAILY BUSPIRONE 10 MG TABLET Take 1 tablet by mouth twice * NIFEDIPINE ER 30 MG TABLET,EX* Take 1 tablet by mouth once d* PSYLLIUM SEED (SUGAR) ORAL PO* Take 1 Tablespoonful by mouth* CHOLECALCIFEROL (VITAMIN D3) * Take 1 tablet by mouth once d* VITAMIN D-3 ORAL Take 1 tablet by mouth once d* WARFARIN 5 MG TABLET Alternating 12 mg every other* MULTIVITAMIN TABLET Take one(1) tablet daily. Problem List As Of Date 12/28/2017 Noted Resolved BMI 50.0-59.9, adult ([facility]) [Z68.43] INVALID FOR* Cellulitis and abscess of leg, except foot [L03*INVALID FOR*04/05/2013 Phlebitis and thrombophlebitis of superficial v*INVALID FOR*04/05/2013 Recurrent major depression in partial remission*INVALID FOR* Type 2 diabetes mellitus with proteinuria or mi*INVALID FOR*09/18/2013 Venous (peripheral) insufficiency [I87.2] More... MIXED HYPERLIPIDEMIA [E78.2] INVALID FOR* Panic disorder with agoraphobia [F40.01] Leg cramps [R25.2] INVALID FOR* More... 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 Proteinuria [R80.9] INVALID FOR* Atrial fibrillation (HCC) [I48.91] More... Anemia [D64.9] GERD (gastroesophageal reflux disease) [K21.9] Morbid obesity (HCC) [E66.01] INVALID FOR* Controlled type 2 diabetes mellitus with diabet*INVALID FOR* Controlled type 2 diabetes mellitus with stage *INVALID FOR* Controlled type 2 diabetes mellitus with both e*INVALID FOR* Chronic foot ulcer (HCC) [L97.509] INVALID FOR* Vitamin D deficiency, unspecified [E55.9] INVALID FOR* Other instructions from your clinician: LIFESTYLE CHANGE A healthy lifestyle is the most important component of your overall treatment plan. Please give serious thought to the following areas and commit to making vice president investor relations changes. EAT A WHOLE FOOD, PLANT BASED DIET The nutrition your body gets is more important than the medicine you take. What matters most is the overall way you eat. We encourage you to minimize the use of animal products (which include dairy and all meats except fatty fish) and use whole, unprocessed plant foods to provide your protein, vitamins and other nutrients. We have a lot of information to share with you on this topic. This is not a diet. It is a way of life that you will keep with you. EXERCISE REGULARLY It is not important to spend hours in the gym, lifting weights and perspiring heavily. A total of 2-3 hours per week of aerobic (causing you to be moderately short of breath) exercise is sufficient to improve your health. Talk to us before you begin a new exercise program, if you have heart disease or experience shortness of breath or chest pain. REDUCE STRESS Chronic emotional and physical stress leads to disease. Ways of reducing stress include meditation, visualization, prayer, yoga and other forms of relaxation therapy. Consistency is the cheng. Find a technique that works for you and do it every day. CULTIVATE RELATIONSHIPS Loneliness and isolation have a major negative impact on health. Seek out others who can love, care for and nurture you. Avoid hurtful relationships. MAINTAIN IDEAL BODY WEIGHT The best way to do this is to do all the things above. Our bodies naturally find the right weight if we keep moving and feed ourselves the right food. If your BMI is greater than 25, we strongly recommend a referral to a weight management program. Please speak to us or your family physician about available programs. AVOID NICOTINE IN ALL FORMS This includes all tobacco products, whether chewed, smoked, vaped, or rubbed on the skin. Smoking cessation programs, which can make use of tobacco substitutes, medications to suppress cravings and behavior management, are available. Please contact your family physician about programs in your area. Encounter Status:Closed by ADITYA AVILA MD on 12/28/17 PROGRESS Observed: 12/28/2017 Status: COMPLETED Source: [place] 3:36 PM [facility] [place] REPOSITORY O ID: [id number] Author: Aditya Avila Service: (none) Author Type: Physician Type: Progress Notes Filed: 12/28/2017 4:53 PM Note Text: PERTINENT CARDIAC HISTORY Atrial fibrillation CRF HTN HL DM Intolerant of SRINIVASA-I/arb - hyperkalemia CHF - diastolic ARRON ADHERENCE TO GUIDELINES SRINIVASA-I or ARB for HF with prior LVEF<40 (NQF 0081) - N/A ASA or Plavix for ASHD (NQF 0067) - N/A Beta ashlee for ASHD with prior OK or prior LVEF<40 (NQF 0070) - N/A Beta ashlee for HF with prior LVEF<40 (NQF 0083) - N/A SRINIVASA-I or ARB for ASHD with DM or prior LVEF<40 (NQF 0066) - hyperkalemia, CRF Statin therapy for ASHD or FHL or DM - met BMI documented and plan if >25 (NQF 0421) - lifestyle recommendation form Tobacco use screening and referral (NQF 0028) - lifestyle recommendation form Recommendation for whole food, plant based diet - lifestyle recommendation form CLINICAL IMPRESSION/PLAN: Marek Ramsay is doing well. He is still in atrial flutter. This will likely be a permanent rhythm for him. I have encouraged him to have a sleep study done and notify me when it is accomplished and when he is on effective therapy for sleep apnea. At that point, we can consider cardioversion. He has been advised to continue his current medication. He reports stable exercise tolerance. He has no known ischemic heart disease. I will see him in 6 months or as needed Written and verbal health teaching given to patient, patient verbalizes understanding and agrees with treatment plan. DIAGNOSIS FOR VISIT: Atrial fibrillation CHF HISTORY OF PRESENT ILLNESS Marek Ramsay returns for follow-up of multiple cardiac issues, as noted above. He reports that his renal function is stable. His CHF is well compensated. He's had no chest discomfort. He denies orthopnea and edema is under good control. He's had no syncope, TIAs, amaurosis or claudication. He's having some problems with foot pain and may need some minor surgery. He is unaware of his heart rhythm. He has not yet been able to get his sleep study done due to other issues. ALLERGIES: ALLERGIES Allergen Reactions - Cephalexin Rash, Swelling - Penicillins Unknown childhood CURRENT OUTPATIENT MEDICATIONS: Insulin NPH human (HUMULIN N NPH INSULIN KWIKPEN) 100 unit/mL (3 mL) inpn injection pen INJECT 10 UNITS UNDER THE SKIN DAILY AT BEDTIME BD ULTRAFINE III MINI PEN 31 gauge x 3/16 ndle USE WITH INSULIN PENS ONCE DAILY glipiZIDE (GLUCOTROL) 5 mg tablet TAKE 1 TABLET DAILY AT DINNER (DISCONTINUE GLIMEPIRIDE) furosemide (LASIX) 40 mg tablet TAKE 1 TABLET DAILY venlafaxine ER (EFFEXOR XR) 150 mg 24 hr capsule TAKE 1 CAPSULE DAILY warfarin (COUMADIN) 5 mg tablet Take 2 tablets by mouth once daily. Or as directed warfarin (COUMADIN) 1 mg tablet Take 3 tablets by mouth once daily. Or as directed carvedilol (COREG) 12.5 mg tablet TAKE 1 TABLET TWICE A DAY gabapentin (NEURONTIN) 300 mg capsule TAKE 2 CAPSULES IN THE MORNING AND 2 CAPSULES AT BEDTIME DIRECTED dicyclomine (BENTYL) 20 mg tablet TAKE 1 TABLET THREE TIMES A DAY BEFORE MEALS ranitidine (ZANTAC) 150 mg tablet TAKE 1 TABLET TWICE A DAY carvedilol (COREG) 25 mg tablet TAKE 1 TABLET TWICE A DAY (TAKE WITH 12.5MG TWICE A DAY FOR A TOTAL OF 37.5MG TWICE A DAY) pravastatin (PRAVACHOL) 80 mg tablet TAKE 1 TABLET DAILY busPIRone (BUSPAR) 10 mg tablet Take 1 tablet by mouth twice daily. NIFEdipine XL (AFEDITAB CR) 30 mg 24 hr tablet Take 1 tablet by mouth once daily. Psyllium Seed-Sucrose (METAMUCIL, SUGAR,) powd Take 1 Tablespoonful by mouth as needed. Cholecalciferol, Vitamin D3, 5,000 unit tab Take 1 tablet by mouth once daily. CALCIUM CARBONATE/VITAMIN D3 (VITAMIN D-3 ORAL) Take 1 tablet by mouth once daily. warfarin (COUMADIN) 5 mg tablet Alternating 12 mg every other day with 13 mg every other day (Uses weekly box that fills every week) MULTIVITAMIN ORAL TAB Take one(1) tablet daily. PHYSICAL EXAMINATION: VITAL SIGNS: BP 169/82 Pulse 79 Ht 5' 8 (1.73m) Wt 344 lb 8 oz (156.3kg) BMI 52.39 kg/(m2). Repeat blood pressure 140/82 Chest: Clear to auscultation. Trachea is midline. Air entry is equal. Cardiac:Irregularly irregular rhythm. S1 and S2 are normal. PMI is nondisplaced. There is a soft systolic ejection murmur. Carotids are brisk without bruits. JVP is less than 10 cm. Abdomen: Soft and nontender. He is obese. There are no pulsatile masses or bruits. No liver enlargement. Bowel sounds are active. Extremities: Chronic stasis changes with 1 plus edema. Pulses are intact and symmetrical. Recent labs were reviewed. Renal function is stable. LDL was 113. Electronically Signed: Aditya Avila MD December 28, 2017 3:36 PM CC: Alok Ng MD CNOV Observed: 12/26/2017 Status: COMPLETED Source: [place] 3:15 PM [facility] REPOSITORY Office Visit (ENDTWN) MAREK RAMSAY ([id number]) 1960 M Date Time Provider Department 12/26/17 3:15 PM PAT FISHMAN (BRYCE) RACHEL During your visit today, we recorded the following information about you: Pulse Blood pressure Weight 83/minute 160/93 154.4 kg Pat Fishman APRN.CNP 12/26/2017 4:01 PM Signed Reason for Consultation: DM Type 2 Referring Physician: Clarke Lao, SUPPLY CHAIN INTERN [address] [place] [address] HISTORY OF PRESENT ILLNESS Mr. Ramsay is a 57 year old male presenting here today for a follow up of DM Type 2. He was initially diagnosed with diabetes 2004. LV 08/18/2017 A1C 7.2 on 12/25/2017 fhx diabetes in mom and paternal grandfather. He is under the care of nephrology, Dr. Markham. Following with cardiology as well--Dr. Avila. Issues with left foot and having upcoming MRI. ? Known complications include: hypertension, hyperlipidemia, nephropathy and peripheral neuropathy ? Exacerbating factors include: obesity ? Current diabetes regimen is as follows: ? Glipizide 5mg dinner ? Humulin N 8 units HS *hx of metformin use discontinued due to poor renal function. Stopped glimepiride after a hospitalization in 2017 Tried trulicity but had GI symptoms he is checking his blood glucose 2-3 times daily. he does bring a log book today for review. ? LDE Blood Sugar Frequency: ? FBS 189, 144, 126, 141, 118, 138, 133, 139 ? After work 126, 101, 107, 106, 92, 111, 98, 106 ? After dinner 176, 145, 147, 132, 161, 152 ? Hypoglycemia frequency: denies ? Hypoglycemia awareness: Yes Regarding symptoms of hypoglycemia, he is is not experiencing any symptoms such as polyuria, polydipsia, nocturia or rapid weight loss or blurry vision, Overall, the patient has no acute complaints at this time. PAST MEDICAL HISTORY Diagnosis Date - Anemia - Atrial fibrillation (HCC) coumadin managed by cardiology - Cellulitis and abscess of leg, except foot 10/20/2004 - CHF (congestive heart failure) ([facility]) - Depressive disorder, not elsewhere classified 10/20/2004 - Diabetes ([facility]) 10/20/2004 Type 2; retinopathy, neuropathy, CKD - DVT (deep venous thrombosis) ([facility]) - GERD (gastroesophageal reflux disease) - Mixed hyperlipidemia 03/28/2008 - Morbidly obese (HCC) - Obesity, unspecified 10/20/2004 - Panic disorder with agoraphobia - Proteinuria 10/20/2004 - Unspecified venous (peripheral) insufficiency left leg; related to superficial venous thrombosis from complications from having to have blood transfusion when baby PAST SURGICAL HISTORY Procedure Laterality Date - COLONOSCOP W/ OR W/O BRSH SPEC 08/28/2012 Colonoscopy - EGD W/O OR W/BRUSH/WASH 02/24/2016 EGD mac - PAST SURGICAL HISTORY OF Left 1991 removal of blood clot left leg; superficial - REMOVAL OF TONSILS,<12 Y/O Tonsillectomy - REVISE MEDIAN N/CARPAL TUNNEL SURG Bilateral Carpal tunnel decomp FAMILY HISTORY Problem Relation Age of Onset - Heart Mother - Diabetes Mother - other (black lung) Father - Diabetes Paternal Grandfather Social History Marital status: Spouse name: Years of education: Number of children: 0 Social History Main Topics Smoking status: Former Smoker Packs/day: 1.00 Years: 22.00 Types: Cigarettes, Pipe, Cigars Quit date: 09/26/2002 Smokeless tobacco: Former User Types: Chew Quit date: 02/20/2003 Comment: only chewed brief period Alcohol use: No Comment: Rare Drug use: No Sexual activity: Not Currently Allergies As of Date: 12/26/2017 Allergen Noted Reaction CEPHALEXIN 10/20/2004 Rash and Swelling PENICILLINS 10/20/2004 Unknown Fully Assessed 12/26/2017 Current Outpatient Prescriptions: Insulin NPH human (HUMULIN N NPH INSULIN KWIKPEN) 100 unit/mL (3 mL) inpn injection pen INJECT 10 UNITS UNDER THE SKIN DAILY AT BEDTIME Disp: 15 mL Rfl: 3 BD ULTRAFINE III MINI PEN 31 gauge x 3/16 ndle USE WITH INSULIN PENS ONCE DAILY Disp: 90 Each Rfl: 2 glipiZIDE (GLUCOTROL) 5 mg tablet TAKE 1 TABLET DAILY AT DINNER (DISCONTINUE GLIMEPIRIDE) Disp: 90 tablet Rfl: 2 furosemide (LASIX) 40 mg tablet TAKE 1 TABLET DAILY Disp: 90 tablet Rfl: 3 venlafaxine ER (EFFEXOR XR) 150 mg 24 hr capsule TAKE 1 CAPSULE DAILY Disp: 90 capsule Rfl: 2 warfarin (COUMADIN) 5 mg tablet Take 2 tablets by mouth once daily. Or as directed Disp: 180 tablet Rfl: 2 warfarin (COUMADIN) 1 mg tablet Take 3 tablets by mouth once daily. Or as directed Disp: 270 tablet Rfl: 2 carvedilol (COREG) 12.5 mg tablet TAKE 1 TABLET TWICE A DAY Disp: 180 tablet Rfl: 3 gabapentin (NEURONTIN) 300 mg capsule TAKE 2 CAPSULES IN THE MORNING AND 2 CAPSULES AT BEDTIME DIRECTED Disp: 360 capsule Rfl: 1 dicyclomine (BENTYL) 20 mg tablet TAKE 1 TABLET THREE TIMES A DAY BEFORE MEALS Disp: 270 tablet Rfl: 3 ranitidine (ZANTAC) 150 mg tablet TAKE 1 TABLET TWICE A DAY Disp: 180 tablet Rfl: 3 carvedilol (COREG) 25 mg tablet TAKE 1 TABLET TWICE A DAY (TAKE WITH 12.5MG TWICE A DAY FOR A TOTAL OF 37.5MG TWICE A DAY) Disp: 180 tablet Rfl: 3 pravastatin (PRAVACHOL) 80 mg tablet TAKE 1 TABLET DAILY Disp: 90 tablet Rfl: 3 busPIRone (BUSPAR) 10 mg tablet Take 1 tablet by mouth twice daily. Disp: 180 tablet Rfl: 3 NIFEdipine XL (AFEDITAB CR) 30 mg 24 hr tablet Take 1 tablet by mouth once daily. Disp: 90 tablet Rfl: 5 Psyllium Seed-Sucrose (METAMUCIL, SUGAR,) powd Take 1 Tablespoonful by mouth as needed. Disp: Rfl: 0 Cholecalciferol, Vitamin D3, 5,000 unit tab Take 1 tablet by mouth once daily. Disp: Rfl: 0 CALCIUM CARBONATE/VITAMIN D3 (VITAMIN D-3 ORAL) Take 1 tablet by mouth once daily. Disp: Rfl: warfarin (COUMADIN) 5 mg tablet Alternating 12 mg every other day with 13 mg every other day (Uses weekly box that fills every week) Disp: Rfl: MULTIVITAMIN ORAL TAB Take one(1) tablet daily. Disp: Rfl: 0 No current facility-administered medications for this visit. REVIEW OF SYSTEMS General: no fever and no chills Skin: no rashes, pruritis or dry skin Cardiac: denies chest pain, heart palpitations or orthopnea Pulmonary: denies wheezing, productive cough or exertional dyspnea PHYSICAL EXAMINATION BP 160/93 Pulse 83 Wt 154.4 kg (340 lb 4.8 oz) BMI 51.74 kg/m2 General: Well appearing, alert, in no acute distress, well- hydrated, well nourished., Morbidly obese Skin: skin color, texture, turgor normal, no rashes or lesions. Heart: RRR without murmur, gallop, or rubs. No ectopy Pulmonary: Lungs clear to auscultation. No wheezing, rhonchi, rales Extremities: no edema, no calluses or ulcers present. DATA Creatinine Date Value Ref Range Status 12/25/2017 2.90 (H) 0.73 - 1.22 mg/dL Final Hemoglobin A1C (%) Date Value 12/25/2017 7.2 ) No components found for: URINEALBUMIN Cholesterol, Total (mg/dL) Date Value 12/25/2017 176 HDL Cholesterol (mg/dL) Date Value 12/25/2017 34 LDL Cholesterol (mg/dL) Date Value 12/25/2017 113 Triglyceride (mg/dL) Date Value 12/25/2017 147 IMPRESSION: Mr. Ramsay is a 57 year old male here for evaluation of DM Type 2 complicated by hypertension, hyperlipidemia, nephropathy and peripheral neuropathy, morbid obesity RECOMMENDATIONS: (E11.42, Z79.4) Controlled type 2 diabetes mellitus with diabetic polyneuropathy, with long-term current use of insulin ([facility]) (primary encounter diagnosis) Comment: Glycemic control is reasonable. Will increase NPH a couple of units. Continue to monitor sugars Plan: COMP METABOLIC PANEL, Insulin NPH human (HUMULIN N NPH INSULIN KWIKPEN) 100 unit/mL (3 mL) inpn injection pen, HGB A1C, LIPID PANEL BASIC Continue glipizide 5mg at dinner Increase NPH insulin to 10 units at bedtime. Continue to monitor sugars. Follow up in 4 months (E11.22, N18.4, Z79.4) Controlled type 2 diabetes mellitus with stage 4 chronic kidney disease, with long-term current use of insulin (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) Comment: glycemic control overall at goal Plan: see above (E78.2) Mixed hyperlipidemia Comment/Plan: taking pravastatin. Managed per PCP/cardiology (I10) Hypertension goal BP (blood pressure) < 140/90 Comment/Plan: Managed per PCP/cardiology (Z68.43) BMI 50.0-59.9, adult ([facility]) Comment: Body mass index is 51.74 kg/m?. Plan: Encouraged increase dietary and exercise efforts as able Pat Fishman APRN, ALLANC Endocrinology [address] / [place] [address] Pat Fishman APRN.DAMAGE CUTTER 12/26/2017 3:45 PM Signed 1. Continue glipizide 5mg at dinner 2. Increase NPH insulin to 10 units at bedtime. 3. Continue to monitor sugars. 4. Follow up in 4 months Pat Fishman APRN, NP-C Endocrinology [address] / [place] [address] Referring Provider: PAT FISHMAN (BRYCE) [[id number]] Allergies As of Date: 12/26/2017 Noted Allergy Reaction CEPHALEXIN 10/20/2004 2 - Rash 7 - Swelling PENICILLINS 10/20/2004 16 - Unknown Comments: childhood Date Reviewed: 12/26/2017 Reviewed by: Pat (Bryce) Ella - Fully Assessed Reason for Visit: Diabetes [34] Cmt: Type II DM Primary Visit Diagnosis:Controlled type 2 diabetes mellitus with diabetic polyneuropathy, with long-term current use of insulin ([facility]) [E11.42, Z79.4] Other Visit Diagnoses:Controlled type 2 diabetes mellitus with stage 4 chronic kidney disease, with long- term current use of insulin (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) [E11.3293, Z79.4] Mixed hyperlipidemia [E78.2] Hypertension goal BP (blood pressure) < 140/90 [I10] BMI 50.0-59.9, adult ([facility]) [Z68.43] Order(s):COMP METABOLIC PANEL [SQCMP] Order #: [id number] FUTURE Insulin NPH human (HUMULIN N NPH INSULIN KWIKPEN) 100 unit/mL (3 mL) inpn injection penINJECT 10 UNITS UNDER THE SKIN DAILY AT BEDTIMEDisp: 15 mLRfl: 3 HGB A1C [[id number]] Order #: [id number] FUTURE LIPID PANEL BASIC [SQLIPB] Order #: [id number] FUTURE Prescriptions as of 12/26/2017 Sig: INSULIN NPH ISOPHANE U-100 HU* INJECT 10 UNITS UNDER THE SKI* BD ULTRA-FINE MINI PEN NEEDLE* USE WITH INSULIN PENS ONCE DA* GLIPIZIDE 5 MG TABLET TAKE 1 TABLET DAILY AT DINNER* FUROSEMIDE 40 MG TABLET TAKE 1 TABLET DAILY VENLAFAXINE ER 150 MG CAPSULE* TAKE 1 CAPSULE DAILY WARFARIN 5 MG TABLET Take 2 tablets by mouth once * WARFARIN 1 MG TABLET Take 3 tablets by mouth once * CARVEDILOL 12.5 MG TABLET TAKE 1 TABLET TWICE A DAY GABAPENTIN 300 MG CAPSULE TAKE 2 CAPSULES IN THE MORNIN* DICYCLOMINE 20 MG TABLET TAKE 1 TABLET THREE TIMES A D* RANITIDINE 150 MG TABLET TAKE 1 TABLET TWICE A DAY CARVEDILOL 25 MG TABLET TAKE 1 TABLET TWICE A DAY (TA* PRAVASTATIN 80 MG TABLET TAKE 1 TABLET DAILY BUSPIRONE 10 MG TABLET Take 1 tablet by mouth twice * NIFEDIPINE ER 30 MG TABLET,EX* Take 1 tablet by mouth once d* PSYLLIUM SEED (SUGAR) ORAL PO* Take 1 Tablespoonful by mouth* CHOLECALCIFEROL (VITAMIN D3) * Take 1 tablet by mouth once d* VITAMIN D-3 ORAL Take 1 tablet by mouth once d* WARFARIN 5 MG TABLET Alternating 12 mg every other* MULTIVITAMIN TABLET Take one(1) tablet daily. Problem List As Of Date 12/26/2017 Noted Resolved BMI 50.0-59.9, adult ([facility]) [Z68.43] INVALID FOR* Cellulitis and abscess of leg, except foot [L03*INVALID FOR*04/05/2013 Phlebitis and thrombophlebitis of superficial v*INVALID FOR*04/05/2013 Recurrent major depression in partial remission*INVALID FOR* Type 2 diabetes mellitus with proteinuria or mi*INVALID FOR*09/18/2013 Venous (peripheral) insufficiency [I87.2] More... MIXED HYPERLIPIDEMIA [E78.2] INVALID FOR* Panic disorder with agoraphobia [F40.01] Leg cramps [R25.2] INVALID FOR* More... 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 Proteinuria [R80.9] INVALID FOR* Atrial fibrillation (HCC) [I48.91] More... Anemia [D64.9] GERD (gastroesophageal reflux disease) [K21.9] Morbid obesity (HCC) [E66.01] INVALID FOR* Controlled type 2 diabetes mellitus with diabet*INVALID FOR* Controlled type 2 diabetes mellitus with stage *INVALID FOR* Controlled type 2 diabetes mellitus with both e*INVALID FOR* Chronic foot ulcer (HCC) [L97.509] INVALID FOR* Vitamin D deficiency, unspecified [E55.9] INVALID FOR* Other instructions from your clinician: 1. Continue glipizide 5mg at dinner 2. Increase NPH insulin to 10 units at bedtime. 3. Continue to monitor sugars. 4. Follow up in 4 months Pat Fishman APRN, BRYCE-C Endocrinology [address] / [place] [address] Prescriptions ordered this encounter Disp Refills Start End INSULIN NPH ISOPHANE U-100 HUMAN 100* 15 mL 3 12/26/2017 Class: Med Update Sig: INJECT 10 UNITS UNDER THE SKIN DAILY AT BEDTIME Medications Discontinued During This Encounter HUMULIN N NPH INSULIN KWIKPEN 100 un* 15 mL 3 09/27/2017 12/26/2017 Sig: INJECT 8 UNITS UNDER THE SKIN DAILY AT BEDTIME Disc: Reason for discontinue is not on file. Follow-up and Disposition History Recorded Encounter Status:Closed by PAT FISHMAN on 12/26/17 PROGRESS Observed: 12/26/2017 Status: COMPLETED Source: [place] 3:12 PM [facility] REPOSITORY HNO ID: [id number] Author: Pat Fishman Service: (none) Author Type: Nurse Practitioner Type: Progress Notes Filed: 12/26/2017 4:01 PM Note Text: Reason for Consultation: DM Type 2 Referring Physician: Clarke Lao, SUPPLY CHAIN INTERN [address] [place] [address] HISTORY OF PRESENT ILLNESS Mr. Ramsay is a 57 year old male presenting here today for a follow up of DM Type 2. He was initially diagnosed with diabetes 2004. LV 08/18/2017 A1C 7.2 on 12/25/2017 fhx diabetes in mom and paternal grandfather. He is under the care of nephrology, Dr. Markham. Following with cardiology as well--Dr. Avila. Issues with left foot and having upcoming MRI. ? Known complications include: hypertension, hyperlipidemia, nephropathy and peripheral neuropathy ? Exacerbating factors include: obesity ? Current diabetes regimen is as follows: ? Glipizide 5mg dinner ? Humulin N 8 units HS *hx of metformin use discontinued due to poor renal function. Stopped glimepiride after a hospitalization in 2017 Tried trulicity but had GI symptoms he is checking his blood glucose 2-3 times daily. he does bring a log book today for review. ? LDE Blood Sugar Frequency: ? FBS 189, 144, 126, 141, 118, 138, 133, 139 ? After work 126, 101, 107, 106, 92, 111, 98, 106 ? After dinner 176, 145, 147, 132, 161, 152 ? Hypoglycemia frequency: denies ? Hypoglycemia awareness: Yes Regarding symptoms of hypoglycemia, he is is not experiencing any symptoms such as polyuria, polydipsia, nocturia or rapid weight loss or blurry vision, Overall, the patient has no acute complaints at this time. PAST MEDICAL HISTORY Diagnosis Date - Anemia - Atrial fibrillation ([facility]) coumadin managed by cardiology - Cellulitis and abscess of leg, except foot 10/20/2004 - CHF (congestive heart failure) ([facility]) - Depressive disorder, not elsewhere classified 10/20/2004 - Diabetes ([facility]) 10/20/2004 Type 2; retinopathy, neuropathy, CKD - DVT (deep venous thrombosis) ([facility]) - GERD (gastroesophageal reflux disease) - Mixed hyperlipidemia 03/28/2008 - Morbidly obese ([facility]) - Obesity, unspecified 10/20/2004 - Panic disorder with agoraphobia - Proteinuria 10/20/2004 - Unspecified venous (peripheral) insufficiency left leg; related to superficial venous thrombosis from complications from having to have blood transfusion when baby PAST SURGICAL HISTORY Procedure Laterality Date - COLONOSCOP W/ OR W/O BRSH SPEC 08/28/2012 Colonoscopy - EGD W/O OR W/BRUSH/WASH 02/24/2016 EGD mac - PAST SURGICAL HISTORY OF Left 1991 removal of blood clot left leg; superficial - REMOVAL OF TONSILS,<12 Y/O Tonsillectomy - REVISE MEDIAN N/CARPAL TUNNEL SURG Bilateral Carpal tunnel decomp FAMILY HISTORY Problem Relation Age of Onset - Heart Mother - Diabetes Mother - other (black lung) Father - Diabetes Paternal Grandfather Social History Marital status: Spouse name: Years of education: Number of children: 0 Social History Main Topics Smoking status: Former Smoker Packs/day: 1.00 Years: 22.00 Types: Cigarettes, Pipe, Cigars Quit date: 09/26/2002 Smokeless tobacco: Former User Types: Chew Quit date: 02/20/2003 Comment: only chewed brief period Alcohol use: No Comment: Rare Drug use: No Sexual activity: Not Currently Allergies As of Date: 12/26/2017 Allergen Noted Reaction CEPHALEXIN 10/20/2004 Rash and Swelling PENICILLINS 10/20/2004 Unknown Fully Assessed 12/26/2017 Current Outpatient Prescriptions: Insulin NPH human (HUMULIN N NPH INSULIN KWIKPEN) 100 unit/mL (3 mL) inpn injection pen INJECT 10 UNITS UNDER THE SKIN DAILY AT BEDTIME Disp: 15 mL Rfl: 3 BD ULTRAFINE III MINI PEN 31 gauge x 3/16 ndle USE WITH INSULIN PENS ONCE DAILY Disp: 90 Each Rfl: 2 glipiZIDE (GLUCOTROL) 5 mg tablet TAKE 1 TABLET DAILY AT DINNER (DISCONTINUE GLIMEPIRIDE) Disp: 90 tablet Rfl: 2 furosemide (LASIX) 40 mg tablet TAKE 1 TABLET DAILY Disp: 90 tablet Rfl: 3 venlafaxine ER (EFFEXOR XR) 150 mg 24 hr capsule TAKE 1 CAPSULE DAILY Disp: 90 capsule Rfl: 2 warfarin (COUMADIN) 5 mg tablet Take 2 tablets by mouth once daily. Or as directed Disp: 180 tablet Rfl: 2 warfarin (COUMADIN) 1 mg tablet Take 3 tablets by mouth once daily. Or as directed Disp: 270 tablet Rfl: 2 carvedilol (COREG) 12.5 mg tablet TAKE 1 TABLET TWICE A DAY Disp: 180 tablet Rfl: 3 gabapentin (NEURONTIN) 300 mg capsule TAKE 2 CAPSULES IN THE MORNING AND 2 CAPSULES AT BEDTIME DIRECTED Disp: 360 capsule Rfl: 1 dicyclomine (BENTYL) 20 mg tablet TAKE 1 TABLET THREE TIMES A DAY BEFORE MEALS Disp: 270 tablet Rfl: 3 ranitidine (ZANTAC) 150 mg tablet TAKE 1 TABLET TWICE A DAY Disp: 180 tablet Rfl: 3 carvedilol (COREG) 25 mg tablet TAKE 1 TABLET TWICE A DAY (TAKE WITH 12.5MG TWICE A DAY FOR A TOTAL OF 37.5MG TWICE A DAY) Disp: 180 tablet Rfl: 3 pravastatin (PRAVACHOL) 80 mg tablet TAKE 1 TABLET DAILY Disp: 90 tablet Rfl: 3 busPIRone (BUSPAR) 10 mg tablet Take 1 tablet by mouth twice daily. Disp: 180 tablet Rfl: 3 NIFEdipine XL (AFEDITAB CR) 30 mg 24 hr tablet Take 1 tablet by mouth once daily. Disp: 90 tablet Rfl: 5 Psyllium Seed-Sucrose (METAMUCIL, SUGAR,) powd Take 1 Tablespoonful by mouth as needed. Disp: Rfl: 0 Cholecalciferol, Vitamin D3, 5,000 unit tab Take 1 tablet by mouth once daily. Disp: Rfl: 0 CALCIUM CARBONATE/VITAMIN D3 (VITAMIN D-3 ORAL) Take 1 tablet by mouth once daily. Disp: Rfl: warfarin (COUMADIN) 5 mg tablet Alternating 12 mg every other day with 13 mg every other day (Uses weekly box that fills every week) Disp: Rfl: MULTIVITAMIN ORAL TAB Take one(1) tablet daily. Disp: Rfl: 0 No current facility-administered medications for this visit. REVIEW OF SYSTEMS General: no fever and no chills Skin: no rashes, pruritis or dry skin Cardiac: denies chest pain, heart palpitations or orthopnea Pulmonary: denies wheezing, productive cough or exertional dyspnea PHYSICAL EXAMINATION BP 160/93 Pulse 83 Wt 154.4 kg (340 lb 4.8 oz) BMI 51.74 kg/m2 General: Well appearing, alert, in no acute distress, well- hydrated, well nourished., Morbidly obese Skin: skin color, texture, turgor normal, no rashes or lesions. Heart: RRR without murmur, gallop, or rubs. No ectopy Pulmonary: Lungs clear to auscultation. No wheezing, rhonchi, rales Extremities: no edema, no calluses or ulcers present. DATA Creatinine Date Value Ref Range Status 12/25/2017 2.90 (H) 0.73 - 1.22 mg/dL Final Hemoglobin A1C (%) Date Value 12/25/2017 7.2 ) No components found for: URINEALBUMIN Cholesterol, Total (mg/dL) Date Value 12/25/2017 176 HDL Cholesterol (mg/dL) Date Value 12/25/2017 34 LDL Cholesterol (mg/dL) Date Value 12/25/2017 113 Triglyceride (mg/dL) Date Value 12/25/2017 147 IMPRESSION: Mr. Ramsay is a 57 year old male here for evaluation of DM Type 2 complicated by hypertension, hyperlipidemia, nephropathy and peripheral neuropathy, morbid obesity RECOMMENDATIONS: (E11.42, Z79.4) Controlled type 2 diabetes mellitus with diabetic polyneuropathy, with long-term current use of insulin ([facility]) (primary encounter diagnosis) Comment: Glycemic control is reasonable. Will increase NPH a couple of units. Continue to monitor sugars Plan: COMP METABOLIC PANEL, Insulin NPH human (HUMULIN N NPH INSULIN KWIKPEN) 100 unit/mL (3 mL) inpn injection pen, HGB A1C, LIPID PANEL BASIC Continue glipizide 5mg at dinner Increase NPH insulin to 10 units at bedtime. Continue to monitor sugars. Follow up in 4 months (E11.22, N18.4, Z79.4) Controlled type 2 diabetes mellitus with stage 4 chronic kidney disease, with long-term current use of insulin (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) Comment: glycemic control overall at goal Plan: see above (E78.2) Mixed hyperlipidemia Comment/Plan: taking pravastatin. Managed per PCP/cardiology (I10) Hypertension goal BP (blood pressure) < 140/90 Comment/Plan: Managed per PCP/cardiology (Z68.43) BMI 50.0-59.9, adult ([facility]) Comment: Body mass index is 51.74 kg/m?. Plan: Encouraged increase dietary and exercise efforts as able Pat Fishman APRN, DONOR SERVICES MANAGER-C Endocrinology [facility] [address] / [address] [place] [address] COMP METABOLIC PANEL Collected: 12/25/2017 Status: F Source: [place] 7:45 AM [facility] REPOSITORY TYPE CODE TESTS RESULT OUT OF REFERENCE UNITS RANGE LAB TP 6.3-8.0 g/dL Protein, Total 7.4 LAB ALB 3.9-4.9 g/dL Albumin 4.1 LAB CA 8.5-10.2 mg/dL Calcium, Total 8.7 LAB TBIL 0.2-1.3 mg/dL Bilirubin, Total 0.2 LAB ALKP 38-113 U/L Alkaline Phosphatase 57 LAB AST 14-40 U/L AST 29 LAB GLU 74-99 mg/dL Glucose High 148 Result Comment: The [place] Diabetes [employer] (ADA) provides guidance for cutoff values for fasting glucose and random glucose. The ADA defines fasting as no caloric intake for at least 8 hours. Fas ting plasma glucose results between 100 to 125 mg/dL indicate increased risk for diabetes (prediabetes). Fasting plasma glucose results greater than or equal to 126 mg/dL meet the criteria for diagnosis of diabetes. In the absence of unequivocal hyperglycemia, results should be confirmed by repeat testing. In a patient with classic symptoms of hyperglycemia or hyperglycemic crisis, random plasma glucose results greater than or equal to 200 mg/dL meet the criteria for diagnosis of diabetes. Reference: Standards of Medical Care in Diabetes 2016, [place] [employer]. Diabetes Care. 2016.39(Suppl 1). LAB BUN 9-24 mg/dL BUN High 61 LAB CRET 0.73-1.22 mg/dL Creatinine High 2.90 LAB NA 136-144 mmol/L Sodium 143 LAB K 3.7-5.1 mmol/L Potassium 5.0 LAB CL 97-105 mmol/L Chloride High 109 LAB CO2 22-30 mmol/L Low CO2 20 LAB AGAP 9-18 mmol/L Anion Gap 14 LAB ALT 10-54 U/L ALT 23 LAB GFRAA eGFR- Amer. 27 LAB GFRNAA . eGFR-All Other Races 23 Result Comment: eGFR (Estimated GFR) Units of measure: mL/min/1.73 meters squared eGFR is derived from the reexpressed MDRD Study equation using the following parameters: serum creatinine, age, gender and race. The creatinine assay has been calibrated to be traceable to IDMS. An eGFR <60 mL/min/1.73m2 for >3 months is consistent with chronic kidney disease. Refer to KDOQI guidelines for clinical interpretation. In patients with unstable renal function, e.g. those with acute kidney injury, the eGFR may not accurately reflect actual GFR. Performed By: #### CMP, LIPB, VITD, HBA1C #### [facility] [address] [place] [id number] LIPID PANEL, BASIC Collected: 12/25/2017 Status: F Source: [place] 7:45 AM [facility] REPOSITORY TYPE CODE TESTS RESULT OUT OF REFERENCE UNITS RANGE LAB CHOL <200 mg/dL Cholesterol 176 Result Comment: <200 mg/dL, Desirable 200-239 mg/dL, Borderline high >239 mg/dL, High LAB TRIGLY <150 mg/dL Triglyceride 147 Result Comment: <150 mg/dL, Normal 150-199 mg/dL, Borderline high 200-499 mg/dL, High >499 mg/dL, Very high LAB HDL >39 mg/dL HDL-Cholesterol Low 34 Result Comment: 40-59 mg/dL, Acceptable >59 mg/dL, High: Negative risk factor for coronary heart disease <40 mg/dL, Low: Positive risk factor for coronary heart disease LAB LDL <100 mg/dL LDL-Cholesterol High 113 Result Comment: <100 mg/dL, Optimal 100-129 mg/dL, Near optimal/above optimal 130-159 mg/dL, Borderline high 160-189 mg/dL, High >189 mg/dL, Very high Secondary prevention optimal LDL Cholesterol levels are recommended to be < 70 mg/dL LAB NONHDL <130 mg/dL Non HDL High Cholesterol 142 Result Comment: <130 mg/dL, Optimal 130-159 mg/dL, Near optimal/above optimal 160-189 mg/dL, Borderline high 190-219 mg/dL, High >219 mg/dL, Very high Secondary prevention optimal non HDL Cholesterol levels are recommended to be < 100 mg/dL LAB FT hrs Fasting Time 8 LAB VLDL <30 mg/dL VLDL Cholesterol 29 LAB TCHDL <5.10 High TC:HDL Ratio 5.18 LAB LDLHDL <2.54 High LDL:HDL Ratio 3.32 Result Comment: Reference: 1. National Cholesterol Education Program ATP III Guideline At-A-Glance Quick Desk Reference: National Heart, Lung, and Blood [place]. National Institutes of Health. 2001: NIH Publication No. 01-3305. 2. An International Atherosclerosis Society position paper: global recommendations for the management of dyslipidemia: executive summary, Atherosclerosis. 2014: 232(2):410-413. Performed By: #### CMP, LIPB, VITD, HBA1C #### [facility] [address] [id number] VITAMIN D 25 HYDROXY Collected: 12/25/2017 Status: F Source: [place] 7:45 AM [facility] REPOSITORY TYPE CODE TESTS RESULT OUT OF REFERENCE UNITS RANGE LAB VITD 31.0-80.0 ng/mL Vitamin D 25 50.9 Hydroxy Result Comment: Classification of 25 [place] Vitamin D status: Insufficiency/Moderate Deficiency: < or = 30 ng/mL Sufficiency/Optimal Levels: 31 to 80 ng/mL Toxicity: > 100 ng/mL Test performed by chemiluminescent immunoassay. Performed By: #### CMP, LIPB, VITD, HBA1C #### [facility] [address] [place] [address] HEMOGLOBIN A1C Collected: 12/25/2017 Status: F Source: [place] 7:45 AM [facility] REPOSITORY TYPE CODE TESTS RESULT OUT OF REFERENCE UNITS RANGE LAB HGBA1C 4.3-5.6 % High Hemoglobin A1c 7.2 LAB HBA0 mg/dL Est. Average Glucose 160 Result Comment: eAG: (Estimated average glucose) is a calculated value from HgbA1c and is sales representative facility services of the average blood glucose level in the last 2-3 month period. Performed By: #### CMP, LIPB, VITD, HBA1C #### [facility] [address] [id number] BASIC METABOLIC PANL Collected: 12/08/2017 Status: F Source: [place] 3:43 PM [facility] [place] REPOSITORY TYPE CODE TESTS RESULT OUT OF REFERENCE UNITS RANGE LAB GLU 74-99 mg/dL Glucose High 106 LAB BUN 7-21 mg/dL BUN High 71 LAB CRET 0.73-1.22 mg/dL High Creatinine 2.92 LAB NA 136-144 mmol/L Sodium 140 LAB K 3.7-5.1 mmol/L Potassium 5.0 LAB CL 97-105 mmol/L Chloride High 109 LAB CO2 22-30 mmol/L Low CO2 17 LAB AGAP 9-18 mmol/L Anion Gap 14 LAB CA 8.5-10.2 mg/dL Calcium, Total 9.0 LAB GFRAA eGFR- 27 Amer. LAB GFRNAA . eGFR-All Other Races 22 Result Comment: eGFR (Estimated GFR) Units of measure: mL/min/1.73 meters squared eGFR is derived from the reexpressed MDRD Study equation using the following parameters: serum creatinine, age, gender and race. The creatinine assay has been calibrated to be traceable to IDMS. An eGFR <60 mL/min/1.73m2 for >3 months is consistent with chronic kidney disease. Refer to KDOQI guidelines for clinical interpretation. In patients with unstable renal function, e.g. those with acute kidney injury, the eGFR may not accurately reflect actual GFR. OBSOLETE Observed: 12/07/2017 Status: COMPLETED Source: [place] 12:00 AM CLINIC OTHER CAMPUS REPOSITORY Refill (AGCARDWST) MAREK RAMSAY ([id number]) 1960 M Date Time Provider Department 12/07/17 ADITYA AVILAARDWST During your visit today, we recorded the following information about you: Aditya Avila MD 12/07/2017 9:06 AM Signed Please obtain a basic profile and make sure he is seeing a kidney doctor MD Kayli Dunn LPN 12/07/2017 10:26 AM Signed Left message to call office. 12/07/2017 10:26 AM GABI Lee RN 12/07/2017 5:03 PM Signed Left message to call office. 12/07/2017 5:03 PM Dinah Ortega LPN 12/08/2017 9:19 AM Signed Patient will come in for labs. He is seeing a specialist in [place].Kayli Ortega LPN Allergies As of Date: 12/07/2017 Noted Allergy Reaction CEPHALEXIN 10/20/2004 2 - Rash 7 - Swelling PENICILLINS 10/20/2004 16 - Unknown Comments: childhood Date Reviewed: 08/18/2017 Reviewed by: Pat Munoz) Ella - Fully Assessed Reason for Visit: Refill Request [94] Primary Visit Diagnosis:Persistent atrial fibrillation (HCC) [I48.1] Order(s):furosemide (LASIX) 40 mg tabletTAKE 1 TABLET DAILYDisp: 90 tabletRfl: 3 BASIC METABOLIC PNL [SQBMP] Order #: [id number] FUTURE Prescriptions as of 12/07/2017 Sig: FUROSEMIDE 40 MG TABLET TAKE 1 TABLET DAILY VENLAFAXINE ER 150 MG CAPSULE* TAKE 1 CAPSULE DAILY HUMULIN N NPH U-100 INSULIN K* INJECT 8 UNITS UNDER THE SKIN* WARFARIN 5 MG TABLET Take 2 tablets by mouth once * WARFARIN 1 MG TABLET Take 3 tablets by mouth once * CARVEDILOL 12.5 MG TABLET TAKE 1 TABLET TWICE A DAY GABAPENTIN 300 MG CAPSULE TAKE 2 CAPSULES IN THE MORNIN* DICYCLOMINE 20 MG TABLET TAKE 1 TABLET THREE TIMES A D* RANITIDINE 150 MG TABLET TAKE 1 TABLET TWICE A DAY CARVEDILOL 25 MG TABLET TAKE 1 TABLET TWICE A DAY (TA* PRAVASTATIN 80 MG TABLET TAKE 1 TABLET DAILY BUSPIRONE 10 MG TABLET Take 1 tablet by mouth twice * GLIPIZIDE 5 MG TABLET One tab daily at dinner PEN NEEDLE, DIABETIC 31 GAUGE* USE WITH INSULIN PENS 1 TIMES* NIFEDIPINE ER 30 MG TABLET,EX* Take 1 tablet by mouth once d* PSYLLIUM SEED (SUGAR) ORAL PO* Take 1 Tablespoonful by mouth* CHOLECALCIFEROL (VITAMIN D3) * Take 1 tablet by mouth once d* VITAMIN D-3 ORAL Take 1 tablet by mouth once d* WARFARIN 5 MG TABLET Alternating 12 mg every other* MULTIVITAMIN TABLET Take one(1) tablet daily. Problem List As Of Date 12/07/2017 Noted Resolved BMI 50.0-59.9, adult ([facility]) [Z68.43] INVALID FOR* Cellulitis and abscess of leg, except foot [L03*INVALID FOR*04/05/2013 Phlebitis and thrombophlebitis of superficial v*INVALID FOR*04/05/2013 Recurrent major depression in partial remission*INVALID FOR* Type 2 diabetes mellitus with proteinuria or mi*INVALID FOR*09/18/2013 Venous (peripheral) insufficiency [I87.2] More... MIXED HYPERLIPIDEMIA [E78.2] INVALID FOR* Panic disorder with agoraphobia [F40.01] Leg cramps [R25.2] INVALID FOR* More... 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 Proteinuria [R80.9] INVALID FOR* Atrial fibrillation (HCC) [I48.91] More... Anemia [D64.9] GERD (gastroesophageal reflux disease) [K21.9] Morbid obesity (HCC) [E66.01] INVALID FOR* Controlled type 2 diabetes mellitus with diabet*INVALID FOR* Controlled type 2 diabetes mellitus with stage *INVALID FOR* Controlled type 2 diabetes mellitus with both e*INVALID FOR* Chronic foot ulcer (HCC) [L97.509] INVALID FOR* Vitamin D deficiency, unspecified [E55.9] INVALID FOR* Prescriptions ordered this encounter Disp Refills Start End FUROSEMIDE 40 MG TABLET 90 t* 3 12/07/2017 Sig: TAKE 1 TABLET DAILY Medications Discontinued During This Encounter furosemide (LASIX) 40 mg tablet 90 t* 3 12/14/2016 12/07/2017 Route: ORAL Sig: Take 1 tablet by mouth once daily. Disc: Reason for discontinue is not on file. Encounter Status:Closed by KAYLI ORTEGA LPN on 12/08/17 PROTIME Collected: 11/28/2017 Status: F Source: [place] 3:33 PM [facility] REPOSITORY TYPE CODE TESTS RESULT OUT OF RANGE REFERENCE UNITS LAB PSEC 9.7-13.0 sec High PT Sec 23.9 LAB INR 0.9-1.3 High PT INR 2.4 Result Comment: Vitamin K Antagonist (VKA) Therapeutic Range: INR 2 to 3 (Target INR of 2.5) Note: For patients treated with VKA drugs, such as warfarin, the [place] [employer] 2012 Guideline recommends a therapeutic INR range of 2 to 3 (target INR of 2.5). This recommendation includes high-risk patients with antiphospholipid syndrome with previous arterial or venous thromboembolism, current-generation mechanical or bioprosthetic aortic heart valve replacement. Note: Patients with mechanical aortic valve replacement and additional risk factors for thromboembolic events (atrial fibrillation, previous thromboembolism, LV dysfunction, hypercoagulable conditions) or an older generation mechanical AVR (i.e., ball in-Cage) or any mechanical MVR should have a INR therapeutic range of 2.5 to 3.5 (target INR of 3). lawanda Huitron. Chest 2012, 141:7S-47S Los HOOD et al. [facility] 2017, 70: 252-289 Performed By: #### PT #### [facility] [address] [place], [place] [address] PROTIME Collected: 09/11/2017 Status: F Source: [place] 3:30 PM [facility] [place] REPOSITORY TYPE CODE TESTS RESULT OUT OF RANGE REFERENCE UNITS LAB PSEC 9.7-13.0 sec High PT Sec 20.6 LAB INR 0.9-1.3 High PT INR 2.1 Result Comment: Vitamin K Antagonist (VKA) Therapeutic Range: INR 2 to 3 (Target INR of 2.5) Note: For patients treated with VKA drugs, such as warfarin, the [place] [employer] 2012 Guideline recommends a therapeutic INR range of 2 to 3 (target INR of 2.5). This recommendation includes high-risk patients with antiphospholipid syndrome with previous arterial or venous thromboembolism, current-generation mechanical or bioprosthetic aortic heart valve replacement. Note: Patients with mechanical aortic valve replacement and additional risk factors for thromboembolic events (atrial fibrillation, previous thromboembolism, LV dysfunction, hypercoagulable conditions) or an older generation mechanical AVR (i.e., ball in-Cage) or any mechanical MVR should have a INR therapeutic range of 2.5 to 3.5 (target INR of 3). lawanda Huitron. Chest 2012, 141:7S-47S Los HOOD et al. [facility] 2017, 70: 252-289 Performed By: #### PT #### [facility] [address] [place], [place] [address] GLUCOSE METER Collected: 08/25/2017 Status: F Source: [facility] 9:38 AM [facility] REPOSITORY TYPE CODE TESTS RESULT OUT OF RANGE REFERENCE UNITS LAB L500.22731 85-125 MG/DL Normal GLUCOSE METER 100 CBC Collected: 08/25/2017 Status: F Source: [facility] 7:00 AM [facility] REPOSITORY Order Comment: [place]: M TYPE CODE TESTS RESULT OUT OF RANGE REFERENCE UNITS LAB L200.54868 4.5-11.0 K/CU MM Normal WBC 8.2 LAB L200.20901 4.50-6.00 M/CU MM Low RBC 3.84 LAB L200.51973 13.5-17.5 G/DL Low HGB 11.4 LAB L200.78299 41.0-53.0 % Low HCT 34.6 LAB L200.25501 80.0-99.0 fl Normal MCV 90.1 LAB L200.48837 32.0-36.0 GM/DL Normal MCHC 32.9 LAB L200.41301 11-14.5 Normal RDW 13.5 LAB L200.57962 9.4-12.4 Normal MPV 10.5 LAB L200.54488 150-450 K/CU MM Normal PLT 156 LAB L200.77341 Less than 1 % Normal NRBC 0.0 Performed By: #### L200.81999 #### [facility] [place] [address] PT Collected: 08/25/2017 Status: F Source: [facility] 7:00 AM [facility] REPOSITORY Order Comment: [place]: M TYPE CODE TESTS RESULT OUT OF RANGE REFERENCE UNITS LAB L300.48263 0.9-1.1 Normal INR 1.1 Result Comment: Recommended PT INR therapeutic range for vice president investor relations and prophylactic therapy is 2.0 - 3.0. For heart valve and shunt patients the range is 2.5 - 3.5. LAB L300.10441 9.4-12.0 SECONDS Normal PTS 12.0 Performed By: #### L300.99294, L300.11336 #### [facility] [address] [place] [address] PTT Collected: 08/25/2017 Status: F Source: [facility] 7:00 AM [facility] REPOSITORY Order Comment: [place]: M TYPE CODE TESTS RESULT OUT OF RANGE REFERENCE UNITS LAB L300.44673 22.5-31.4 SECONDS Normal PTT 25.8 Result Comment: Therapeutic Heparin Reference Range: High Dose: 56 - 86 seconds (DVT/PE) Low Dose: 50 - 70 seconds (Acute Coronary Syndrome) For low molecular weight heparin or danaparoid, monitoring is often NOT necessary, but the heparin assay, Xa inhibition assay (send-out) may be used in certain circumstances, as the PTT is generally insensitive to the effect of these agents. Direct thrombin inhibitors are becoming more widely utilized and these drugs are often monitored using the PTT. Performed By: #### L300.91103, L300.20556 #### [facility] [address] [phone] RENAL Collected: 08/25/2017 Status: F Source: [facility] 7:00 AM [facility] REPOSITORY Order Comment: [place]: M TYPE CODE TESTS RESULT OUT OF RANGE REFERENCE UNITS LAB L500.74917 136-145 MMOL/L Normal NA 145 LAB L500.77418 3.5-5.1 MMOL/L Normal K 4.7 LAB L500.88577 98-107 MMOL/L High CL 115 LAB L500.05407 21-32 MMOL/L Normal CO2 21 LAB L500.12867 5-16 MMOL/L Normal AGAP 10 LAB L500.45432 70-100 MG/DL High GLU 114 Result Comment: 70-100- Normal Fasting; 100-125 Impaired Fasting; greater than 126 on more than one result- Diabetes. ADA guidelines. Results may be falsely elevated after the administration of Sulfapyridine. Results may be falsely depressed after the administration of Sulfasalazine. LAB L500.45685 7-26 MG/DL High BUN 52 LAB L500.24745 0.670-1.170 MG/DL High CREAT 3.170 Result Comment: Patients receiving either N-Acetylcysteine (NAC) or Metamizole prior to venipuncture, may have falsely depressed results. LAB L500.43430 15-24 Normal BUN/CREA 16 LAB L500.24185 3.2-5.0 GM/DL Normal ALBUMIN 3.8 LAB L500.51045 8.5-10.1 MG/DL Normal CALCIUM TOTAL 8.7 LAB L500.15721 2.5-4.9 MG/DL Normal PHOS 4.7 Performed By: #### L500.93313, L500.68473 #### [facility] [address] [place] [address] GFR EST Collected: 08/25/2017 Status: F Source: [facility] 7:00 AM [facility] REPOSITORY Order Comment: [place]: M TYPE CODE TESTS RESULT OUT OF RANGE REFERENCE UNITS LAB L500.55021 ML/MIN Normal IF non-AFR 20 AMER LAB L500.87105 ML/MIN Normal IF 25 AMER Performed By: #### L500.60373, L500.34975 #### [facility] [address] [place] [address] OR Observed: 08/25/2017 Status: UNK Source: [facility] 6:39 AM [facility] REPOSITORY DATE OF SERVICE: 08/25/2017 PREOPERATIVE DIAGNOSIS: Ulcer, left lower extremity, with peripheral arterial disease. POSTOPERATIVE DIAGNOSIS: Ulcer, left lower extremity, with peripheral arterial disease. OPERATION: 1. Ultrasound-guided access retrograde, right common femoral artery. 2. Left lower extremity angiogram with a total of 7 mL of dye used. 3. Balloon angioplasty of the left superficial femoral artery to popliteal at the adductor with a 5 x 4 drug-coated balloon. 4. Balloon angioplasty to mid popliteal with a 4 x 4 drug- coated balloon. 5. Balloon angioplasty from the popliteal through the tibioperoneal trunk, into the peroneal, with a 3 x 100 [place]. 6. Closure with Vascade. INDICATION: Patient with healed ulcer, slow to heal, has got some known peripheral vascular disease. Discussed doing angiogram with intervention. Risks, benefits, alternatives discussed. He agreed to proceed. PROCEDURE: The patient was brought to the operating room, underwent the appropriate timeout consent, underwent sedation. Prepped and draped in a sterile fashion. We did ultrasound-guided access retrograde in the right common femoral artery, put a Glidewire in, then a 6-Guyanese sheath, got up and over the bifurcation. We imaged from the external iliac artery using very minimal dye, but it appeared the common femoral, profunda and SFA were patent. Put a Quick Cross all the way down, imaged from there showing, at the adductor, focal severe stenosis; mid popliteal at the knee joint, severe stenosis. Posterior tibial and anterior tibial were occluded throughout. He had single-vessel runoff at the peroneal and moderate to severe stenosis in the TP trunk, into the peroneal. We got through this area of the stenosis, confirmed we were in the peroneal, put a longer 0.035 wire. We brought in a 690 sheath and then ballooned first at the area of the adductor with a 5 x 4 drug-coated balloon for over 2 minutes, then the mid popliteal with a 4 x 4 drug-coated balloon for over 2 minutes, and then from the popliteal through the TP trunk, into the peroneal with a 3 x 100 [place] for over 3 minutes. Completion was much improved. There was good flow through here. Removed out the sheath, put a shorter sheath, deployed a Vascade with good hemostasis. He was brought to recovery in stable condition. SEDATION: This 57-year-old gentleman underwent conscious sedation given by Dr. Brjiesh Shannon. He was monitored with EKG, blood pressure and pulse oximetry. See the EMR for the complete record. He was given fentanyl and Versed, tolerated the procedure well. [facility] PATIENT NAME: MAREK RAMSAY [address] [facility] [address] MEDICAL REC #: [id number] [place] [address] ADMIT DATE: DISCHARGE DATE: OPERATIVE REPORT ATTENDING PHY: Brijesh Shannon MD Brijesh Shannon MD [id number] SSI File#: [id number] Verified/Reviewed by 08/29/17 1250 [address] [facility] PATIENT NAME: MAREK RAMSAY [address] [facility] [address] MEDICAL REC #: [id number] [place] [address] ADMIT DATE: DISCHARGE DATE: OPERATIVE REPORT ATTENDING PHY: Brijesh Shannon MD CNOV Observed: 08/18/2017 Status: COMPLETED Source: [place] 3:15 PM [facility] REPOSITORY Office Visit (ENDTWN) MAREK RAMSAY ([id number]) 1960 M Date Time Provider Department 08/18/17 3:15 PM PAT FISHMAN (BRYCE) ENDTWAngela During your visit today, we recorded the following information about you: Pulse Blood pressure Weight 46/minute 150/62 153.1 kg Pat Fishman APRN.CNP 08/18/2017 3:59 PM Signed Reason for Consultation: DM Type 2 Referring Physician: Clarke Lao, JASON [address] [facility] [address] HISTORY OF PRESENT ILLNESS Mr. Ramsay is a 57 year old male presenting here today for a follow up of DM Type 2. He was initially diagnosed with diabetes 2005. LV 04/18/2017 A1C 7.0 on 08/16/2017 Left foot ulcer (heel) since May and has been out of work. Going to wound center but does not need antibiotics right now. Will be seeing vascular specialist soon for possible stent. fhx diabetes in mom and paternal grandfather. He is under the care of nephrology, Dr. Markham. Following with cardiology as well--Dr. Avila. ? Known complications include: hypertension, hyperlipidemia, nephropathy and peripheral neuropathy ? Exacerbating factors include: obesity ? Current diabetes regimen is as follows: ? Glipizide 5mg dinner ? Humulin N 8 units HS *hx of metformin use discontinued due to poor renal function. Stopped glimepiride after a hospitalization in 2017 Tried trulicity but had GI symptoms he is checking his blood glucose 0-3 times daily. he does bring a log book today for review. ? LDE Blood Sugar Frequency: ? FBS 149, 83, 96, 150, 167 ? acS 115, 103, 107, 117, 105, 110 ? After dinner 127, 123, 138, 152 ? Hypoglycemia frequency: denies ? Hypoglycemia awareness: Yes Regarding symptoms of hypoglycemia, he is is not experiencing any symptoms such as polyuria, polydipsia, nocturia or rapid weight loss or blurry vision, Overall, the patient has no acute complaints at this time. PAST MEDICAL HISTORY Diagnosis Date - Anemia - Atrial fibrillation ([facility]) coumadin managed by cardiology - Cellulitis and abscess of leg, except foot 10/20/2004 - CHF (congestive heart failure) ([facility]) - Depressive disorder, not elsewhere classified 10/20/2004 - Diabetes ([facility]) 10/20/2004 Type 2; retinopathy, neuropathy, CKD - DVT (deep venous thrombosis) ([facility]) - GERD (gastroesophageal reflux disease) - Mixed hyperlipidemia 03/28/2008 - Morbidly obese ([facility]) - Obesity, unspecified 10/20/2004 - Panic disorder with agoraphobia - Proteinuria 10/20/2004 - Unspecified venous (peripheral) insufficiency left leg; related to superficial venous thrombosis from complications from having to have blood transfusion when baby PAST SURGICAL HISTORY Procedure Laterality Date - COLONOSCOP W/ OR W/O BRSH SPEC 08/28/2012 Colonoscopy - EGD W/O OR W/BRUSH/WASH 02/24/2016 EGD mac - PAST SURGICAL HISTORY OF Left 1991 removal of blood clot left leg; superficial - REMOVAL OF TONSILS,<12 Y/O Tonsillectomy - REVISE MEDIAN N/CARPAL TUNNEL SURG Bilateral Carpal tunnel decomp FAMILY HISTORY Problem Relation Age of Onset - Heart Mother - Diabetes Mother - black lung [OTHER] Father - Diabetes Paternal Grandfather Social History Marital status: Spouse name: Years of education: Number of children: 0 Social History Main Topics Smoking status: Former Smoker Packs/day: 1.00 Years: 22.00 Types: Cigarettes, Pipe, Cigars Quit date: 09/26/2002 Smokeless tobacco: Former User Types: Chew Quit date: 02/20/2003 Comment: only chewed brief period Alcohol use: No Comment: Rare Drug use: No Sexual activity: Not Currently Allergies As of Date: 08/18/2017 Allergen Noted Reaction CEPHALEXIN 10/20/2004 Rash and Swelling PENICILLINS 10/20/2004 Unknown Fully Assessed 08/18/2017 Current Outpatient Prescriptions: warfarin (COUMADIN) 5 mg tablet Take 2 tablets by mouth once daily. Or as directed Disp: 180 tablet Rfl: 2 warfarin (COUMADIN) 1 mg tablet Take 3 tablets by mouth once daily. Or as directed Disp: 270 tablet Rfl: 2 carvedilol (COREG) 12.5 mg tablet TAKE 1 TABLET TWICE A DAY Disp: 180 tablet Rfl: 3 gabapentin (NEURONTIN) 300 mg capsule TAKE 2 CAPSULES IN THE MORNING AND 2 CAPSULES AT BEDTIME DIRECTED Disp: 360 capsule Rfl: 1 dicyclomine (BENTYL) 20 mg tablet TAKE 1 TABLET THREE TIMES A DAY BEFORE MEALS Disp: 270 tablet Rfl: 3 ranitidine (ZANTAC) 150 mg tablet TAKE 1 TABLET TWICE A DAY Disp: 180 tablet Rfl: 3 carvedilol (COREG) 25 mg tablet TAKE 1 TABLET TWICE A DAY (TAKE WITH 12.5MG TWICE A DAY FOR A TOTAL OF 37.5MG TWICE A DAY) Disp: 180 tablet Rfl: 3 venlafaxine XR (EFFEXOR XR) 150 mg 24 hr capsule TAKE 1 CAPSULE DAILY Disp: 90 capsule Rfl: 2 pravastatin (PRAVACHOL) 80 mg tablet TAKE 1 TABLET DAILY Disp: 90 tablet Rfl: 3 busPIRone (BUSPAR) 10 mg tablet Take 1 tablet by mouth twice daily. Disp: 180 tablet Rfl: 3 glipiZIDE (GLUCOTROL) 5 mg tablet One tab daily at dinner Disp: 90 tablet Rfl: 3 Insulin NPH human (HUMULIN N KWIKPEN) 100 unit/mL (3 mL) inpn injection pen Inject 8 Units subcutaneously daily at bedtime. Disp: 15 mL Rfl: 3 Insulin [place], Disposable, (BD ULTRAFINE III MINI PEN) 31 gauge x 3/16 ndle USE WITH INSULIN PENS 1 TIMES DAILY Disp: 100 Each Rfl: 3 furosemide (LASIX) 40 mg tablet Take 1 tablet by mouth once daily. Disp: 90 tablet Rfl: 3 NIFEdipine XL (AFEDITAB CR) 30 mg 24 hr tablet Take 1 tablet by mouth once daily. Disp: 90 tablet Rfl: 5 Psyllium Seed-Sucrose (METAMUCIL, SUGAR,) powd Take 1 Tablespoonful by mouth as needed. Disp: Rfl: 0 Cholecalciferol, Vitamin D3, 5,000 unit tab Take 1 tablet by mouth once daily. Disp: Rfl: 0 CALCIUM CARBONATE/VITAMIN D3 (VITAMIN D-3 ORAL) Take 1 tablet by mouth once daily. Disp: Rfl: MULTIVITAMIN ORAL TAB Take one(1) tablet daily. Disp: Rfl: 0 warfarin (COUMADIN) 5 mg tablet Alternating 12 mg every other day with 13 mg every other day (Uses weekly box that fills every week) Disp: Rfl: No current facility-administered medications for this visit. REVIEW OF SYSTEMS General: no fever and no chills Skin: no rashes, pruritis or dry skin Cardiac: denies chest pain, heart palpitations or orthopnea Pulmonary: denies wheezing, productive cough or exertional dyspnea PHYSICAL EXAMINATION BP 150/62 Pulse 46 Wt 153.1 kg (337 lb 8 oz) BMI 51.32 kg/m2 *states [id number] yesterday General: Well appearing, alert, in no acute distress, well- hydrated, well nourished., Morbidly obese Skin: skin color, texture, turgor normal, no rashes or lesions. Heart: RRR without murmur, gallop, or rubs. No ectopy Pulmonary: Lungs clear to auscultation. No wheezing, rhonchi, rales Extremities: no edema, no calluses or ulcers present. DATA Creatinine Date Value Ref Range Status 08/16/2017 3.15 (H) 0.73 - 1.22 mg/dL Final Hemoglobin A1C (%) Date Value 08/16/2017 7.0 ) No components found for: URINEALBUMIN Cholesterol, Total (mg/dL) Date Value 08/16/2017 186 HDL Cholesterol (mg/dL) Date Value 08/16/2017 32 LDL Cholesterol (mg/dL) Date Value 08/16/2017 128 Triglyceride (mg/dL) Date Value 08/16/2017 128 IMPRESSION: Mr. Ramsay is a 57 year old male here for evaluation of DM Type 2 complicated by hypertension, hyperlipidemia, nephropathy and peripheral neuropathy, morbid obesity RECOMMENDATIONS: (E11.42, Z79.4) Controlled type 2 diabetes mellitus with diabetic polyneuropathy, with long-term current use of insulin ([facility]) (primary encounter diagnosis) Comment: Glycemic control is stable overall. Continue the present regimen. Plan: COMP METABOLIC PANEL, HGB A1C, LIPID PANEL BASIC, VITAMIN D 25 HYDROXY Continue present regimen for diabetes. Continue to check blood sugars. Follow up in 3-4 months with labs prior. (E11.22, N18.4, Z79.4) Controlled type 2 diabetes mellitus with stage 4 chronic kidney disease, with long-term current use of insulin ([facility]) Comment: glycemic control is stable Plan: see above. Follow up with nephrology. 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) Comment: glycemic control is stable Plan: see above (I10) Hypertension goal BP (blood pressure) < 140/90 Comment: BP above goal but reports normal readings yesterday and every time he goes to wound center. Plan: managed per PCP and encouraged him to discuss (E78.2) Mixed hyperlipidemia Comment: taking pravastatin; recent LDL of 128 but was at 97 previously Plan: Continue regimen and will wait to see trend with next visit (Z68.43) BMI 50.0-59.9, adult ([facility]) Comment: Body mass index is 51.32 kg/m?. Plan: Encouraged increase dietary and exercise efforts as able but limited at this time due to foot ulcer Pat Fishman APRN, DONOR SERVICES MANAGER-C Endocrinology [facility] [address] [place] [address] Pat Fishman APRN.DAMAGE CUTTER 08/18/2017 3:35 PM Signed 1. Continue present regimen for diabetes. 2. Continue to check blood sugars. 3. Follow up in 3-4 months with labs prior. Pat Fishman APRN, NP-C Endocrinology [facility] [address] [place] [address] Referring Provider: PAT FISHMAN (BRYCE) [[id number]] Allergies As of Date: 08/18/2017 Noted Allergy Reaction CEPHALEXIN 10/20/2004 2 - Rash 7 - Swelling PENICILLINS 10/20/2004 16 - Unknown Comments: childhood Date Reviewed: 08/18/2017 Reviewed by: Pat (Bryce) Ella - Fully Assessed Reason for Visit: Diabetes [34] Cmt: Type II DM Primary Visit Diagnosis:Controlled type 2 diabetes mellitus with diabetic polyneuropathy, with long-term current use of insulin ([facility]) [E11.42, Z79.4] Other Visit Diagnoses:Controlled type 2 diabetes mellitus with stage 4 chronic kidney disease, with long- term current use of insulin (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) [E11.3293, Z79.4] Hypertension goal BP (blood pressure) < 140/90 [I10] Mixed hyperlipidemia [E78.2] BMI 50.0-59.9, adult ([facility]) [Z68.43] Order(s):COMP METABOLIC PANEL [SQCMP] Order #: [id number] FUTURE HGB A1C [TPSZC2D] Order #: [id number] FUTURE LIPID PANEL BASIC [SQLIPB] Order #: [id number] FUTURE VITAMIN D 25 HYDROXY [SQVITD] Order #: [id number] FUTURE Prescriptions as of 08/18/2017 Sig: WARFARIN 5 MG TABLET Take 2 tablets by mouth once * WARFARIN 1 MG TABLET Take 3 tablets by mouth once * CARVEDILOL 12.5 MG TABLET TAKE 1 TABLET TWICE A DAY GABAPENTIN 300 MG CAPSULE TAKE 2 CAPSULES IN THE MORNIN* DICYCLOMINE 20 MG TABLET TAKE 1 TABLET THREE TIMES A D* RANITIDINE 150 MG TABLET TAKE 1 TABLET TWICE A DAY CARVEDILOL 25 MG TABLET TAKE 1 TABLET TWICE A DAY (TA* VENLAFAXINE ER 150 MG CAPSULE* TAKE 1 CAPSULE DAILY PRAVASTATIN 80 MG TABLET TAKE 1 TABLET DAILY BUSPIRONE 10 MG TABLET Take 1 tablet by mouth twice * GLIPIZIDE 5 MG TABLET One tab daily at dinner INSULIN NPH ISOPHANE U-100 HU* Inject 8 Units subcutaneously* PEN NEEDLE, DIABETIC 31 GAUGE* USE WITH INSULIN PENS 1 TIMES* FUROSEMIDE 40 MG TABLET Take 1 tablet by mouth once d* NIFEDIPINE ER 30 MG TABLET,EX* Take 1 tablet by mouth once d* PSYLLIUM SEED (SUGAR) ORAL PO* Take 1 Tablespoonful by mouth* CHOLECALCIFEROL (VITAMIN D3) * Take 1 tablet by mouth once d* VITAMIN D-3 ORAL Take 1 tablet by mouth once d* MULTIVITAMIN TABLET Take one(1) tablet daily. WARFARIN 5 MG TABLET Alternating 12 mg every other* Problem List As Of Date 08/18/2017 Noted Resolved BMI 50.0-59.9, adult ([facility]) [Z68.43] INVALID FOR* Cellulitis and abscess of leg, except foot [L03*INVALID FOR*04/05/2013 Phlebitis and thrombophlebitis of superficial v*INVALID FOR*04/05/2013 Recurrent major depression in partial remission*INVALID FOR* Type 2 diabetes mellitus with proteinuria or mi*INVALID FOR*09/18/2013 Venous (peripheral) insufficiency [I87.2] More... MIXED HYPERLIPIDEMIA [E78.2] INVALID FOR* Panic disorder with agoraphobia [F40.01] Leg cramps [R25.2] INVALID FOR* More... 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 Proteinuria [R80.9] INVALID FOR* Atrial fibrillation ([facility]) [I48.91] More... Anemia [D64.9] GERD (gastroesophageal reflux disease) [K21.9] Morbid obesity ([facility]) [E66.01] INVALID FOR* Controlled type 2 diabetes mellitus with diabet*INVALID FOR* Controlled type 2 diabetes mellitus with stage *INVALID FOR* Controlled type 2 diabetes mellitus with both e*INVALID FOR* Chronic foot ulcer ([facility]) [L97.509] INVALID FOR* Vitamin D deficiency, unspecified [E55.9] INVALID FOR* Other instructions from your clinician: 1. Continue present regimen for diabetes. 2. Continue to check blood sugars. 3. Follow up in 3-4 months with labs prior. Pat Fishman APRN, BRYCE-C Endocrinology [facility] [address] / [address] [place] [address] Follow-up and Disposition History Recorded Encounter Status:Closed by PAT FISHMAN on 08/18/17 PROGRESS Observed: 08/18/2017 Status: COMPLETED Source: [place] 2:40 PM [facility] REPOSITORY HNO ID: [id number] Author: Pat (Bryce) Ella Service: (none) Author Type: Nurse Practitioner Type: Progress Notes Filed: 08/18/2017 3:59 PM Note Text: Reason for Consultation: DM Type 2 Referring Physician: Clarke Lao, JASON [address] [facility] [address] HISTORY OF PRESENT ILLNESS Mr. Ramsay is a 57 year old male presenting here today for a follow up of DM Type 2. He was initially diagnosed with diabetes 2005. LV 04/18/2017 A1C 7.0 on 08/16/2017 Left foot ulcer (heel) since May and has been out of work. Going to wound center but does not need antibiotics right now. Will be seeing vascular specialist soon for possible stent. fhx diabetes in mom and paternal grandfather. He is under the care of nephrology, Dr. Markham. Following with cardiology as well--Dr. Avila. ? Known complications include: hypertension, hyperlipidemia, nephropathy and peripheral neuropathy ? Exacerbating factors include: obesity ? Current diabetes regimen is as follows: ? Glipizide 5mg dinner ? Humulin N 8 units HS *hx of metformin use discontinued due to poor renal function. Stopped glimepiride after a hospitalization in 2017 Tried trulicity but had GI symptoms he is checking his blood glucose 0-3 times daily. he does bring a log book today for review. ? LDE Blood Sugar Frequency: ? FBS 149, 83, 96, 150, 167 ? acS 115, 103, 107, 117, 105, 110 ? After dinner 127, 123, 138, 152 ? Hypoglycemia frequency: denies ? Hypoglycemia awareness: Yes Regarding symptoms of hypoglycemia, he is is not experiencing any symptoms such as polyuria, polydipsia, nocturia or rapid weight loss or blurry vision, Overall, the patient has no acute complaints at this time. PAST MEDICAL HISTORY Diagnosis Date - Anemia - Atrial fibrillation ([facility]) coumadin managed by cardiology - Cellulitis and abscess of leg, except foot 10/20/2004 - CHF (congestive heart failure) ([facility]) - Depressive disorder, not elsewhere classified 10/20/2004 - Diabetes ([facility]) 10/20/2004 Type 2; retinopathy, neuropathy, CKD - DVT (deep venous thrombosis) ([facility]) - GERD (gastroesophageal reflux disease) - Mixed hyperlipidemia 03/28/2008 - Morbidly obese ([facility]) - Obesity, unspecified 10/20/2004 - Panic disorder with agoraphobia - Proteinuria 10/20/2004 - Unspecified venous (peripheral) insufficiency left leg; related to superficial venous thrombosis from complications from having to have blood transfusion when baby PAST SURGICAL HISTORY Procedure Laterality Date - COLONOSCOP W/ OR W/O BRSH SPEC 08/28/2012 Colonoscopy - EGD W/O OR W/BRUSH/WASH 02/24/2016 EGD mac - PAST SURGICAL HISTORY OF Left 1991 removal of blood clot left leg; superficial - REMOVAL OF TONSILS,<12 Y/O Tonsillectomy - REVISE MEDIAN N/CARPAL TUNNEL SURG Bilateral Carpal tunnel decomp FAMILY HISTORY Problem Relation Age of Onset - Heart Mother - Diabetes Mother - black lung [OTHER] Father - Diabetes Paternal Grandfather Social History Marital status: Spouse name: Years of education: Number of children: 0 Social History Main Topics Smoking status: Former Smoker Packs/day: 1.00 Years: 22.00 Types: Cigarettes, Pipe, Cigars Quit date: 09/26/2002 Smokeless tobacco: Former User Types: Chew Quit date: 02/20/2003 Comment: only chewed brief period Alcohol use: No Comment: Rare Drug use: No Sexual activity: Not Currently Allergies As of Date: 08/18/2017 Allergen Noted Reaction CEPHALEXIN 10/20/2004 Rash and Swelling PENICILLINS 10/20/2004 Unknown Fully Assessed 08/18/2017 Current Outpatient Prescriptions: warfarin (COUMADIN) 5 mg tablet Take 2 tablets by mouth once daily. Or as directed Disp: 180 tablet Rfl: 2 warfarin (COUMADIN) 1 mg tablet Take 3 tablets by mouth once daily. Or as directed Disp: 270 tablet Rfl: 2 carvedilol (COREG) 12.5 mg tablet TAKE 1 TABLET TWICE A DAY Disp: 180 tablet Rfl: 3 gabapentin (NEURONTIN) 300 mg capsule TAKE 2 CAPSULES IN THE MORNING AND 2 CAPSULES AT BEDTIME DIRECTED Disp: 360 capsule Rfl: 1 dicyclomine (BENTYL) 20 mg tablet TAKE 1 TABLET THREE TIMES A DAY BEFORE MEALS Disp: 270 tablet Rfl: 3 ranitidine (ZANTAC) 150 mg tablet TAKE 1 TABLET TWICE A DAY Disp: 180 tablet Rfl: 3 carvedilol (COREG) 25 mg tablet TAKE 1 TABLET TWICE A DAY (TAKE WITH 12.5MG TWICE A DAY FOR A TOTAL OF 37.5MG TWICE A DAY) Disp: 180 tablet Rfl: 3 venlafaxine XR (EFFEXOR XR) 150 mg 24 hr capsule TAKE 1 CAPSULE DAILY Disp: 90 capsule Rfl: 2 pravastatin (PRAVACHOL) 80 mg tablet TAKE 1 TABLET DAILY Disp: 90 tablet Rfl: 3 busPIRone (BUSPAR) 10 mg tablet Take 1 tablet by mouth twice daily. Disp: 180 tablet Rfl: 3 glipiZIDE (GLUCOTROL) 5 mg tablet One tab daily at dinner Disp: 90 tablet Rfl: 3 Insulin NPH human (HUMULIN N KWIKPEN) 100 unit/mL (3 mL) inpn injection pen Inject 8 Units subcutaneously daily at bedtime. Disp: 15 mL Rfl: 3 Insulin [place], Disposable, (BD ULTRAFINE III MINI PEN) 31 gauge x 3/16 ndle USE WITH INSULIN PENS 1 TIMES DAILY Disp: 100 Each Rfl: 3 furosemide (LASIX) 40 mg tablet Take 1 tablet by mouth once daily. Disp: 90 tablet Rfl: 3 NIFEdipine XL (AFEDITAB CR) 30 mg 24 hr tablet Take 1 tablet by mouth once daily. Disp: 90 tablet Rfl: 5 Psyllium Seed-Sucrose (METAMUCIL, SUGAR,) powd Take 1 Tablespoonful by mouth as needed. Disp: Rfl: 0 Cholecalciferol, Vitamin D3, 5,000 unit tab Take 1 tablet by mouth once daily. Disp: Rfl: 0 CALCIUM CARBONATE/VITAMIN D3 (VITAMIN D-3 ORAL) Take 1 tablet by mouth once daily. Disp: Rfl: MULTIVITAMIN ORAL TAB Take one(1) tablet daily. Disp: Rfl: 0 warfarin (COUMADIN) 5 mg tablet Alternating 12 mg every other day with 13 mg every other day (Uses weekly box that fills every week) Disp: Rfl: No current facility-administered medications for this visit. REVIEW OF SYSTEMS General: no fever and no chills Skin: no rashes, pruritis or dry skin Cardiac: denies chest pain, heart palpitations or orthopnea Pulmonary: denies wheezing, productive cough or exertional dyspnea PHYSICAL EXAMINATION BP 150/62 Pulse 46 Wt 153.1 kg (337 lb 8 oz) BMI 51.32 kg/m2 *states [id number] yesterday General: Well appearing, alert, in no acute distress, well- hydrated, well nourished., Morbidly obese Skin: skin color, texture, turgor normal, no rashes or lesions. Heart: RRR without murmur, gallop, or rubs. No ectopy Pulmonary: Lungs clear to auscultation. No wheezing, rhonchi, rales Extremities: no edema, no calluses or ulcers present. DATA Creatinine Date Value Ref Range Status 08/16/2017 3.15 (H) 0.73 - 1.22 mg/dL Final Hemoglobin A1C (%) Date Value 08/16/2017 7.0 ) No components found for: URINEALBUMIN Cholesterol, Total (mg/dL) Date Value 08/16/2017 186 HDL Cholesterol (mg/dL) Date Value 08/16/2017 32 LDL Cholesterol (mg/dL) Date Value 08/16/2017 128 Triglyceride (mg/dL) Date Value 08/16/2017 128 IMPRESSION: Mr. Ramsay is a 57 year old male here for evaluation of DM Type 2 complicated by hypertension, hyperlipidemia, nephropathy and peripheral neuropathy, morbid obesity RECOMMENDATIONS: (E11.42, Z79.4) Controlled type 2 diabetes mellitus with diabetic polyneuropathy, with long-term current use of insulin (HCC) (primary encounter diagnosis) Comment: Glycemic control is stable overall. Continue the present regimen. Plan: COMP METABOLIC PANEL, HGB A1C, LIPID PANEL BASIC, VITAMIN D 25 HYDROXY Continue present regimen for diabetes. Continue to check blood sugars. Follow up in 3-4 months with labs prior. (E11.22, N18.4, Z79.4) Controlled type 2 diabetes mellitus with stage 4 chronic kidney disease, with long-term current use of insulin ([facility]) Comment: glycemic control is stable Plan: see above. Follow up with nephrology. 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) Comment: glycemic control is stable Plan: see above (I10) Hypertension goal BP (blood pressure) < 140/90 Comment: BP above goal but reports normal readings yesterday and every time he goes to wound center. Plan: managed per PCP and encouraged him to discuss (E78.2) Mixed hyperlipidemia Comment: taking pravastatin; recent LDL of 128 but was at 97 previously Plan: Continue regimen and will wait to see trend with next visit (Z68.43) BMI 50.0-59.9, adult ([facility]) Comment: Body mass index is 51.32 kg/m?. Plan: Encouraged increase dietary and exercise efforts as able but limited at this time due to foot ulcer Pat Fishman APRN, DONOR SERVICES MANAGER-C Endocrinology [facility] [address] / [address], [place] [address] ALBUMIN/CREAT RATIO Collected: 08/16/2017 Status: F Source: [place] 7:45 AM [facility] REPOSITORY TYPE CODE TESTS RESULT OUT OF REFERENCE UNITS RANGE LAB UCRR 20-300 mg/dL Creatinine,Ur 102.6 ine,Ran LAB UALBR 0.0-23.0 mg/L High Albumin Urine 115.6 Random LAB UALBCR 0-30 mg/g High Albumin/Creat 113 Ratio Result Comment: 30 to 300 mg/g indicates an increased risk for diabetic nephropathy. Greater than 300 mg/g is consistent with clinical nephropathy. (Am J Kidney Disease 1995, 25:107) Performed By: #### UACR #### [facility] [address] [place], [place] [address] PROTIME Collected: 08/16/2017 Status: F Source: [place] 7:39 AM [facility] REPOSITORY TYPE CODE TESTS RESULT OUT OF RANGE REFERENCE UNITS LAB PSEC 9.7-13.0 sec High PT Sec 19.4 LAB INR 0.9-1.3 High PT INR 2.0 Result Comment: Vitamin K Antagonist (VKA) Therapeutic Range: INR 2 to 3 (Target INR of 2.5) Note: For patients treated with VKA drugs, such as warfarin, the [place] [employer] 2012 Guideline recommends a therapeutic INR range of 2 to 3 (target INR of 2.5). This recommendation includes high-risk patients with antiphospholipid syndrome with previous arterial or venous thromboembolism, current-generation mechanical or bioprosthetic aortic heart valve replacement. Note: Patients with mechanical aortic valve replacement and additional risk factors for thromboembolic events (atrial fibrillation, previous thromboembolism, LV dysfunction, hypercoagulable conditions) or an older generation mechanical AVR (i.e., ball in-Cage) or any mechanical MVR should have a INR therapeutic range of 2.5 to 3.5 (target INR of 3). Fabi GH, et al. Chest 2012, 141:7S-47S Los RA, et al. [facility] 2017, 70: 252-289 Performed By: #### PT #### [facility] [address] [place] [address] COMP METABOLIC PANEL Collected: 08/16/2017 Status: F Source: [place] 7:38 AM [facility] REPOSITORY TYPE CODE TESTS RESULT OUT OF REFERENCE UNITS RANGE LAB TP 6.3-8.0 g/dL Low Protein, Total 6.0 LAB ALB 3.9-4.9 g/dL Albumin 4.1 LAB CA 8.5-10.2 mg/dL Calcium, Total 9.1 LAB TBIL 0.2-1.3 mg/dL Bilirubin, Total 0.3 LAB ALKP 36-108 U/L Alkaline Phosphatase 54 LAB AST 14-40 U/L AST 30 LAB GLU 74-99 mg/dL Glucose High 105 Result Comment: The [place] Diabetes Association (ADA) provides guidance for cutoff values for fasting glucose and random glucose. The ADA defines fasting as no caloric intake for at least 8 hours. Fas ting plasma glucose results between 100 to 125 mg/dL indicate increased risk for diabetes (prediabetes). Fasting plasma glucose results greater than or equal to 126 mg/dL meet the criteria for diagnosis of diabetes. In the absence of unequivocal hyperglycemia, results should be confirmed by repeat testing. In a patient with classic symptoms of hyperglycemia or hyperglycemic crisis, random plasma glucose results greater than or equal to 200 mg/dL meet the criteria for diagnosis of diabetes. Reference: Standards of Medical Care in Diabetes 2016, [place] [employer] Association. Diabetes Care. 2016.39(Suppl 1). LAB BUN 9-24 mg/dL BUN High 67 LAB CRET 0.73-1.22 mg/dL Creatinine High 3.15 LAB NA 136-144 mmol/L Sodium 143 LAB K 3.7-5.1 mmol/L Potassium 4.9 LAB CL 97-105 mmol/L Chloride High 109 LAB CO2 22-30 mmol/L Low CO2 21 LAB AGAP 9-18 mmol/L Anion Gap 13 LAB ALT 10-54 U/L ALT 27 LAB GFRAA eGFR- Amer. 25 LAB GFRNAA . eGFR-All Other Races 21 Result Comment: eGFR (Estimated GFR) Units of measure: mL/min/1.73 meters squared eGFR is derived from the reexpressed MDRD Study equation using the following parameters: serum creatinine, age, gender and race. The creatinine assay has been calibrated to be traceable to IDMS. An eGFR <60 mL/min/1.73m2 for >3 months is consistent with chronic kidney disease. Refer to KDOQI guidelines for clinical interpretation. In patients with unstable renal function, e.g. those with acute kidney injury, the eGFR may not accurately reflect actual GFR. Performed By: #### CMP, LIPB, TSH, HBA1C #### [facility] [address] [place] [address] LIPID PANEL, BASIC Collected: 08/16/2017 Status: F Source: [place] 7:38 AM [facility] REPOSITORY TYPE CODE TESTS RESULT OUT OF REFERENCE UNITS RANGE LAB CHOL <200 mg/dL Cholesterol 186 Result Comment: <200 mg/dL, Desirable 200-239 mg/dL, Borderline high >239 mg/dL, High LAB TRIGLY <150 mg/dL Triglyceride 128 Result Comment: <150 mg/dL, Normal 150-199 mg/dL, Borderline high 200-499 mg/dL, High >499 mg/dL, Very high LAB HDL >39 mg/dL HDL-Cholesterol Low 32 Result Comment: 40-59 mg/dL, Acceptable >59 mg/dL, High: Negative risk factor for coronary heart disease <40 mg/dL, Low: Positive risk factor for coronary heart disease LAB LDL <100 mg/dL LDL-Cholesterol High 128 Result Comment: <100 mg/dL, Optimal 100-129 mg/dL, Near optimal/above optimal 130-159 mg/dL, Borderline high 160-189 mg/dL, High >189 mg/dL, Very high Secondary prevention optimal LDL Cholesterol levels are recommended to be < 70 mg/dL LAB NONHDL <130 mg/dL Non HDL High Cholesterol 154 Result Comment: <130 mg/dL, Optimal 130-159 mg/dL, Near optimal/above optimal 160-189 mg/dL, Borderline high 190-219 mg/dL, High >219 mg/dL, Very high Secondary prevention optimal non HDL Cholesterol levels are recommended to be < 100 mg/dL LAB FT hrs Fasting Time 10 LAB VLDL <30 mg/dL VLDL Cholesterol 26 LAB TCHDL <5.10 High TC:HDL Ratio 5.81 LAB LDLHDL <2.54 High LDL:HDL Ratio 4.00 Result Comment: Reference: 1. National Cholesterol Education Program ATP III Guideline At-A-Glance Quick Desk Reference: National Heart, Lung, and Blood [place]. National Institutes of Health. 2001: NIH Publication No. 01-3305. 2. An International Atherosclerosis Society position paper: global recommendations for the management of dyslipidemia: executive summary, Atherosclerosis. 2014: 232(2):410-413. Performed By: #### CMP, LIPB, TSH, HBA1C #### [facility] [address] [place], [place] [address] TSH Collected: 08/16/2017 Status: F Source: [place] 7:38 AM [facility] REPOSITORY TYPE CODE TESTS RESULT OUT OF RANGE REFERENCE UNITS LAB TSH 0.400-5.500 uU/mL TSH 1.760 Performed By: #### CMP, LIPB, TSH, HBA1C #### [facility] [address] [place], [place] [address] HEMOGLOBIN A1C Collected: 08/16/2017 Status: F Source: [place] 7:38 AM [facility] REPOSITORY TYPE CODE TESTS RESULT OUT OF REFERENCE UNITS RANGE LAB HGBA1C 4.3-5.6 % High Hemoglobin A1c 7.0 LAB HBA0 mg/dL Est. Average Glucose 154 Result Comment: eAG: (Estimated average glucose) is a calculated value from HgbA1c and is sales representative facility services of the average blood glucose level in the last 2-3 month period. Performed By: #### CMP, LIPB, TSH, HBA1C #### [facility] [address] [place], [place] [address] ARTERIAL DUPLEX US, Observed: 08/02/2017 Status: F Source: [place] 12:01 PM [facility] Cardiovascular Services [address] [place] [address] Art Duplex US Unilat Lower Ext 08/01/17 1244 MR#: [id number] Acct: [id number] Name: MAREK RAMSAY II Rep #: [id number] : 1960 57 From: Brijesh Shannon MD Attending Dr: Brijesh Shannon MD Status: REG CLI Ordering Dr: Brijesh Shannon MD Date: 08/01/17 Location: CVS Sex: M C Admitted: Reason For Study: Atherosclerosis with ulcer LLE Left Velocities Ext Iliac Artery, dist = 147.0 cm./sec. Common Femoral Artery, prox = 138.0 cm./sec. Supf. Femoral Artery, prox = 141.0 cm./sec. Supf. Femoral Artery, mid = 138.0 cm./sec. Supf. Femoral Artery, dist = 114.0 cm./sec. Popliteal Artery, proximal, = 97.4 cm./sec. Popliteal Artery, mid = 54.5 cm./sec. Popliteal Artery, distal = 62.7 cm./sec. Post Tibial Artery, dist. = 22.2 cm./sec. Ant. Tibial Artery, distal = 71.5 cm./sec. Procedure Technically difficult due to body habitus. Exam performed in department. Interpretation Summary 1. No significant psv shift noted but biphasic flow through pop and monophasic in tibials. Difficult exam and may wish other means to evaluate. Ordering Physician: Brijesh Shannon Referring Physician: Brijesh Shannon Performed By: Sue Keyes RVT 08/02/17 1201 Date Brijesh Shannon MD CC: Brijesh Shannon MD; Alok Ng MD Date Dictated: 08/01/17 1244 Date Transcribed: 08/02/17 1201 [place] Tile Shader: Signed LOWER EXT ARTERIAL Observed: 08/02/2017 Status: F Source: [facility] 11:53 AM [facility] Cardiovascular Services [address] [place] [id number] 08/02/17 1148 MR#: [id number] Acct: [id number] Name: MAREK RAMSAY II Rep #: [id number] : 1960 57 From: Brijesh Shannon MD Attending Dr: Brijesh Shannon MD Status: REG CLI Ordering Dr: Date: 08/02/17 Location: [facility] Sex: M C Admitted: Arterial Study - Arterial Study Arterial Study: Date of scan 08/01/[address] Shannon History: Patient with claudication and left lower extremity ulcer Interpretation: Right lower extremity with more of a biphasic flow noted at the ankle with an TRISH 0.50 the PT and noncompressible in the DP. Digit brachial index 0.21. Next Left lower extremity with appears to be more of a monophasic waveform and a poor waveform noted at the ankle with an TRISH 0.49 of the PT and noncompressible of the DP. Digit brachial index 0.39. Impression: 1. Moderate arterial occlusive disease of the right leg with an TRISH 0.5 but more of a biphasic waveform. 2. Severe arterial occlusive disease with monophasic flow and TRISH 0.49 on the left lower extremity. Bilateral small vessel disease with digit brachial index 0.21 on the right 0.39 on the left 08/02/17 1153 <Electronically signed by Brijesh Shannon MD> Date Brijesh Shannon MD CC: Brijesh Shannon MD; Alok Ng MD Date Dictated: 08/02/17 1148 Date Transcribed: 08/02/17 1148 [place] Tile Shader: ROMIE Signed PROGRESS Observed: 07/25/2017 Status: COMPLETED Source: [place] 4:58 PM [facility] REPOSITORY O ID: [id number] Author: Alok Ng Service: (none) Author Type: Physician Type: Progress Notes Filed: 08/03/2017 9:51 PM Note Text: Patient presents with: Recheck: 6 month follow up SUBJECTIVE: Marek Ramsay is a 57 year old year old gentleman here today for 6 month follow up appointment for review of medical conditions. To follow up with Dr. Shannon (noninvasive arterial studies showed severe arterial occlusive disease bilaterally; to get dopper to be done prior)--issues with left foot not healing quickly as should. Less feet swelling since off work. Not having the leg cramping since off work too. Sugars controlled. Not exercising so gaining weight. Continues to follow up with endocrinology. Also following with Dr. Avila (Cardiology). PAST MEDICAL HISTORY Diagnosis Date - Anemia - Atrial fibrillation ([facility]) coumadin managed by cardiology - Cellulitis and abscess of leg, except foot 10/20/2004 - CHF (congestive heart failure) ([facility]) - Depressive disorder, not elsewhere classified 10/20/2004 - Diabetes ([facility]) 10/20/2004 Type 2; retinopathy, neuropathy, CKD - DVT (deep venous thrombosis) ([facility]) - GERD (gastroesophageal reflux disease) - Mixed hyperlipidemia 03/28/2008 - Morbidly obese ([facility]) - Obesity, unspecified 10/20/2004 - Panic disorder with agoraphobia - Proteinuria 10/20/2004 - Unspecified venous (peripheral) insufficiency left leg; related to superficial venous thrombosis from complications from having to have blood transfusion when baby Current Outpatient Prescriptions: carvedilol (COREG) 12.5 mg tablet TAKE 1 TABLET TWICE A DAY gabapentin (NEURONTIN) 300 mg capsule TAKE 2 CAPSULES IN THE MORNING AND 2 CAPSULES AT BEDTIME DIRECTED dicyclomine (BENTYL) 20 mg tablet TAKE 1 TABLET THREE TIMES A DAY BEFORE MEALS ranitidine (ZANTAC) 150 mg tablet TAKE 1 TABLET TWICE A DAY carvedilol (COREG) 25 mg tablet TAKE 1 TABLET TWICE A DAY (TAKE WITH 12.5MG TWICE A DAY FOR A TOTAL OF 37.5MG TWICE A DAY) venlafaxine XR (EFFEXOR XR) 150 mg 24 hr capsule TAKE 1 CAPSULE DAILY pravastatin (PRAVACHOL) 80 mg tablet TAKE 1 TABLET DAILY busPIRone (BUSPAR) 10 mg tablet Take 1 tablet by mouth twice daily. glipiZIDE (GLUCOTROL) 5 mg tablet One tab daily at dinner Insulin NPH human (HUMULIN N KWIKPEN) 100 unit/mL (3 mL) inpn injection pen Inject 8 Units subcutaneously daily at bedtime. Insulin [place], Disposable, (BD ULTRAFINE III MINI PEN) 31 gauge x 3/16 ndle USE WITH INSULIN PENS 1 TIMES DAILY furosemide (LASIX) 40 mg tablet Take 1 tablet by mouth once daily. NIFEdipine XL (AFEDITAB CR) 30 mg 24 hr tablet Take 1 tablet by mouth once daily. warfarin (COUMADIN) 5 mg tablet TAKE 2 TABLETS DAILY warfarin (COUMADIN) 1 mg tablet TAKE 3 TABLETS DAILY Psyllium Seed-Sucrose (METAMUCIL, SUGAR,) powd Take 1 Tablespoonful by mouth as needed. Cholecalciferol, Vitamin D3, 5,000 unit tab Take 1 tablet by mouth once daily. CALCIUM CARBONATE/VITAMIN D3 (VITAMIN D-3 ORAL) Take 1 tablet by mouth once daily. warfarin (COUMADIN) 5 mg tablet Alternating 12 mg every other day with 13 mg every other day (Uses weekly box that fills every week) MULTIVITAMIN ORAL TAB Take one(1) tablet daily. No current facility-administered medications for this visit. OBJECTIVE: BP 136/60 Pulse 60 Resp 16 Wt (!) 152 kg (335 lb) BMI 50.94 kg/m? Patient is alert, oriented times 3, no apparent distress, affect is bright, reactive. Last 5 Encounter BP Readings: Date: BP: 07/25/2017 136/60 06/27/2017 120/62 04/18/2017 160/80 01/31/2017 140/84[bp andrez average[ 01/06/2017 123/64 Last 5 Encounter Wt Readings: Date: Wt: 07/25/2017 152 kg (335 lb) 06/27/2017 149.2 kg (328 lb 14.4 oz) 04/18/2017 151.4 kg (333 lb 12.8 oz) 01/31/2017 152 kg (335 lb) 01/06/2017 152.9 kg (337 lb 1.6 oz) Heart: Regular rate, rhythm, no murmurs, gallops, rubs. Lungs: Clear to auscultation, bilaterally, breathing non labored. Ext: No cyanosis, clubbing; controlled edema wit hstockings--left always larger than right. ASSESSMENT AND PLAN: Encounter Diagnosis ICD-10-CM 1. Hypertension goal BP (blood pressure) < 140/90 I10 2. Venous (peripheral) insufficiency I87.2 3. Controlled type 2 diabetes mellitus with diabetic polyneuropathy, with long-term current use of insulin ([facility]) E11.42 Z79.4 4. Recurrent major depression in partial remission ([facility]) F33.41 5. Panic disorder with agoraphobia F40.01 6. Class 3 severe obesity due to excess calories with serious comorbidity and body mass index (BMI) of 50.0 to 59.9 in adult ([facility]) E66.01 Z68.43 Above issues addressed with patient. Patient involved in shared decision making for management of her medical issues. History and medications reviewed. Epic updated as needed Refills taken care of and meds adjusted as indicated after reviewed history, exam and labs. Health Maintenance reviewed. Updated record and/or ordered tests as recorded. Encouraged on efforts at healthy diet and regular exercise and adequate sleep. Needs to keep working on diet and exercise with lifestyle changes for effective weight loss and control of DM,lipids and BP.. Doing well on Effexor for depression and anxiety. Sugars improved since off work now. Wants to get back to work. BP controlled. Continue present management. Continue follow up with coroner forensic technician and stock room manager. The majority of the visit was spent counseling and/or coordinating care for the patient. Aekr-oc-tjux time was at least 25 minutes. Alok Ng MD CNOV Observed: 07/25/2017 Status: COMPLETED Source: [place] 3:40 PM [facility] REPOSITORY Office Visit (INTMWS) MAREK RAMSAY ([id number]) 1960 M Date Time Provider Department 07/25/17 3:40 PM ALOK NG INTMWS During your visit today, we recorded the following information about you: Pulse Respiration Blood pressure Weight 60/minute 16/minute 136/60 152 kg Alok Ng MD 08/03/2017 9:51 PM Signed Patient presents with: Recheck: 6 month follow up SUBJECTIVE: Marek Ramsay is a 57 year old year old gentleman here today for 6 month follow up appointment for review of medical conditions. To follow up with Dr. Shannon (noninvasive arterial studies showed severe arterial occlusive disease bilaterally; to get dopper to be done prior)--issues with left foot not healing quickly as should. Less feet swelling since off work. Not having the leg cramping since off work too. Sugars controlled. Not exercising so gaining weight. Continues to follow up with endocrinology. Also following with Dr. Avila (Cardiology). PAST MEDICAL HISTORY Diagnosis Date - Anemia - Atrial fibrillation ([facility]) coumadin managed by cardiology - Cellulitis and abscess of leg, except foot 10/20/2004 - CHF (congestive heart failure) ([facility]) - Depressive disorder, not elsewhere classified 10/20/2004 - Diabetes ([facility]) 10/20/2004 Type 2; retinopathy, neuropathy, CKD - DVT (deep venous thrombosis) ([facility]) - GERD (gastroesophageal reflux disease) - Mixed hyperlipidemia 03/28/2008 - Morbidly obese ([facility]) - Obesity, unspecified 10/20/2004 - Panic disorder with agoraphobia - Proteinuria 10/20/2004 - Unspecified venous (peripheral) insufficiency left leg; related to superficial venous thrombosis from complications from having to have blood transfusion when baby Current Outpatient Prescriptions: carvedilol (COREG) 12.5 mg tablet TAKE 1 TABLET TWICE A DAY gabapentin (NEURONTIN) 300 mg capsule TAKE 2 CAPSULES IN THE MORNING AND 2 CAPSULES AT BEDTIME DIRECTED dicyclomine (BENTYL) 20 mg tablet TAKE 1 TABLET THREE TIMES A DAY BEFORE MEALS ranitidine (ZANTAC) 150 mg tablet TAKE 1 TABLET TWICE A DAY carvedilol (COREG) 25 mg tablet TAKE 1 TABLET TWICE A DAY (TAKE WITH 12.5MG TWICE A DAY FOR A TOTAL OF 37.5MG TWICE A DAY) venlafaxine XR (EFFEXOR XR) 150 mg 24 hr capsule TAKE 1 CAPSULE DAILY pravastatin (PRAVACHOL) 80 mg tablet TAKE 1 TABLET DAILY busPIRone (BUSPAR) 10 mg tablet Take 1 tablet by mouth twice daily. glipiZIDE (GLUCOTROL) 5 mg tablet One tab daily at dinner Insulin NPH human (HUMULIN N KWIKPEN) 100 unit/mL (3 mL) inpn injection pen Inject 8 Units subcutaneously daily at bedtime. Insulin [place], Disposable, (BD ULTRAFINE III MINI PEN) 31 gauge x 3/16 ndle USE WITH INSULIN PENS 1 TIMES DAILY furosemide (LASIX) 40 mg tablet Take 1 tablet by mouth once daily. NIFEdipine XL (AFEDITAB CR) 30 mg 24 hr tablet Take 1 tablet by mouth once daily. warfarin (COUMADIN) 5 mg tablet TAKE 2 TABLETS DAILY warfarin (COUMADIN) 1 mg tablet TAKE 3 TABLETS DAILY Psyllium Seed-Sucrose (METAMUCIL, SUGAR,) powd Take 1 Tablespoonful by mouth as needed. Cholecalciferol, Vitamin D3, 5,000 unit tab Take 1 tablet by mouth once daily. CALCIUM CARBONATE/VITAMIN D3 (VITAMIN D-3 ORAL) Take 1 tablet by mouth once daily. warfarin (COUMADIN) 5 mg tablet Alternating 12 mg every other day with 13 mg every other day (Uses weekly box that fills every week) MULTIVITAMIN ORAL TAB Take one(1) tablet daily. No current facility-administered medications for this visit. OBJECTIVE: BP 136/60 Pulse 60 Resp 16 Wt (!) 152 kg (335 lb) BMI 50.94 kg/m? Patient is alert, oriented times 3, no apparent distress, affect is bright, reactive. Last 5 Encounter BP Readings: Date: BP: 07/25/2017 136/60 06/27/2017 120/62 04/18/2017 160/80 01/31/2017 140/84[bp andrez average[ 01/06/2017 123/64 Last 5 Encounter Wt Readings: Date: Wt: 07/25/2017 152 kg (335 lb) 06/27/2017 149.2 kg (328 lb 14.4 oz) 04/18/2017 151.4 kg (333 lb 12.8 oz) 01/31/2017 152 kg (335 lb) 01/06/2017 152.9 kg (337 lb 1.6 oz) Heart: Regular rate, rhythm, no murmurs, gallops, rubs. Lungs: Clear to auscultation, bilaterally, breathing non labored. Ext: No cyanosis, clubbing; controlled edema wit hstockings--left always larger than right. ASSESSMENT AND PLAN: Encounter Diagnosis ICD-10-CM 1. Hypertension goal BP (blood pressure) < 140/90 I10 2. Venous (peripheral) insufficiency I87.2 3. Controlled type 2 diabetes mellitus with diabetic polyneuropathy, with long-term current use of insulin ([facility]) E11.42 Z79.4 4. Recurrent major depression in partial remission ([facility]) F33.41 5. Panic disorder with agoraphobia F40.01 6. Class 3 severe obesity due to excess calories with serious comorbidity and body mass index (BMI) of 50.0 to 59.9 in adult ([facility]) E66.01 Z68.43 Above issues addressed with patient. Patient involved in shared decision making for management of her medical issues. History and medications reviewed. Epic updated as needed Refills taken care of and meds adjusted as indicated after reviewed history, exam and labs. Health Maintenance reviewed. Updated record and/or ordered tests as recorded. Encouraged on efforts at healthy diet and regular exercise and adequate sleep. Needs to keep working on diet and exercise with lifestyle changes for effective weight loss and control of DM,lipids and BP.. Doing well on Effexor for depression and anxiety. Sugars improved since off work now. Wants to get back to work. BP controlled. Continue present management. Continue follow up with coroner forensic technician and stock room manager. The majority of the visit was spent counseling and/or coordinating care for the patient. Uara-dv-jnnq time was at least 25 minutes. Alok Ng MD Referring Provider: CLARKE LAO (SUPPLY CHAIN INTERN) [[id number]] Allergies As of Date: 07/25/2017 Noted Allergy Reaction CEPHALEXIN 10/20/2004 2 - Rash 7 - Swelling PENICILLINS 10/20/2004 16 - Unknown Comments: childhood Date Reviewed: 07/25/2017 Reviewed by: Iraida Stinson LPN - Fully Assessed Reason for Visit: Recheck [92] Cmt: 6 month follow up Primary Visit Diagnosis:Hypertension goal BP (blood pressure) < 140/90 [I10] Other Visit Diagnoses:Venous (peripheral) insufficiency [I87.2] Controlled type 2 diabetes mellitus with diabetic polyneuropathy, with long-term current use of insulin ([facility]) [E11.42, Z79.4] Recurrent major depression in partial remission ([facility]) [F33.41] Panic disorder with agoraphobia [F40.01] Class 3 severe obesity due to excess calories with serious comorbidity and body mass index (BMI) of 50.0 to 59.9 in adult ([facility]) [E66.01, Z68.43] Prescriptions as of 07/25/2017 Sig: CARVEDILOL 12.5 MG TABLET TAKE 1 TABLET TWICE A DAY GABAPENTIN 300 MG CAPSULE TAKE 2 CAPSULES IN THE MORNIN* DICYCLOMINE 20 MG TABLET TAKE 1 TABLET THREE TIMES A D* RANITIDINE 150 MG TABLET TAKE 1 TABLET TWICE A DAY CARVEDILOL 25 MG TABLET TAKE 1 TABLET TWICE A DAY (TA* VENLAFAXINE ER 150 MG CAPSULE* TAKE 1 CAPSULE DAILY PRAVASTATIN 80 MG TABLET TAKE 1 TABLET DAILY BUSPIRONE 10 MG TABLET Take 1 tablet by mouth twice * GLIPIZIDE 5 MG TABLET One tab daily at dinner INSULIN NPH ISOPHANE U-100 HU* Inject 8 Units subcutaneously* PEN NEEDLE, DIABETIC 31 GAUGE* USE WITH INSULIN PENS 1 TIMES* FUROSEMIDE 40 MG TABLET Take 1 tablet by mouth once d* NIFEDIPINE ER 30 MG TABLET,EX* Take 1 tablet by mouth once d* WARFARIN 5 MG TABLET TAKE 2 TABLETS DAILY WARFARIN 1 MG TABLET TAKE 3 TABLETS DAILY PSYLLIUM SEED (SUGAR) ORAL PO* Take 1 Tablespoonful by mouth* CHOLECALCIFEROL (VITAMIN D3) * Take 1 tablet by mouth once d* VITAMIN D-3 ORAL Take 1 tablet by mouth once d* WARFARIN 5 MG TABLET Alternating 12 mg every other* MULTIVITAMIN TABLET Take one(1) tablet daily. Problem List As Of Date 07/25/2017 Noted Resolved BMI 50.0-59.9, adult ([facility]) [Z68.43] INVALID FOR* Cellulitis and abscess of leg, except foot [L03*INVALID FOR*04/05/2013 Phlebitis and thrombophlebitis of superficial v*INVALID FOR*04/05/2013 Recurrent major depression in partial remission*INVALID FOR* Type 2 diabetes mellitus with proteinuria or mi*INVALID FOR*09/18/2013 Venous (peripheral) insufficiency [I87.2] More... MIXED HYPERLIPIDEMIA [E78.2] INVALID FOR* Panic disorder with agoraphobia [F40.01] Leg cramps [R25.2] INVALID FOR* More... 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 Proteinuria [R80.9] INVALID FOR* Atrial fibrillation (HCC) [I48.91] More... Anemia [D64.9] GERD (gastroesophageal reflux disease) [K21.9] Morbid obesity (HCC) [E66.01] INVALID FOR* Controlled type 2 diabetes mellitus with diabet*INVALID FOR* Controlled type 2 diabetes mellitus with stage *INVALID FOR* Disposition: Return in about 6 months (around 01/24/2018) for 6 months follow up--plan on pneumovax 23 at this time. Follow-up and Disposition History Recorded Encounter Status:Closed by ALOK NG MD on 08/03/17 PROTIME Collected: 06/27/2017 Status: F Source: [place] 9:13 AM [facility] [place] REPOSITORY TYPE CODE TESTS RESULT OUT OF RANGE REFERENCE UNITS LAB PSEC 9.7-13.0 sec High PT Sec 17.8 LAB INR 0.9-1.3 High PT INR 1.8 Result Comment: Vitamin K Antagonist (VKA) Therapeutic Range: INR 2 to 3 (Target INR of 2.5) Note: For patients treated with VKA drugs, such as warfarin, the [place] [employer] 2012 Guideline recommends a therapeutic INR range of 2 to 3 (target INR of 2.5). This recommendation includes high-risk patients with antiphospholipid syndrome with previous arterial or venous thromboembolism, current-generation mechanical or bioprosthetic aortic heart valve replacement. Note: Patients with mechanical aortic valve replacement and additional risk factors for thromboembolic events (atrial fibrillation, previous thromboembolism, LV dysfunction, hypercoagulable conditions) or an older generation mechanical AVR (i.e., ball in-Cage) or any mechanical MVR should have a INR therapeutic range of 2.5 to 3.5 (target INR of 3). Fabi GH, et al. Chest 2012, 141:7S-47S [place] HOOD et al. [facility] 2017, 70: 252-289 Performed By: #### PT #### [facility] [address] [place], [place] [address] PROGRESS Observed: 06/27/2017 Status: COMPLETED Source: [place] 8:46 AM CLINIC OTHER CAMPUS REPOSITORY HNO ID: [id number] Author: Aditya Avila Service: (none) Author Type: Physician Type: Progress Notes Filed: 06/27/2017 8:55 AM Note Text: PERTINENT CARDIAC HISTORY Atrial fib HTN HL DM Intolerant of SRINIVASA-I/arb - hyperkalemia CHF - diastolic ADHERENCE TO GUIDELINES SRINIVASA-I or ARB for HF with prior LVEF<40 (NQF 0081) - N/A ASA or Plavix for ASHD (NQF 0067) - N/A Beta ashlee for ASHD with prior OK or prior LVEF<40 (NQF 0070) - N/A Beta ashlee for HF with prior LVEF<40 (NQF 0083) - N/A SRINIVASA-I or ARB for ASHD with DM or prior LVEF<40 (NQF 0066) - hyperkalemia, CRF Statin therapy for ASHD or FHL or DM - met BMI documented and plan if >25 (NQF 0421) - lifestyle recommendation form Tobacco use screening and referral (NQF 0028) - lifestyle recommendation form Recommendation for whole food, plant based diet - lifestyle recommendation form CLINICAL IMPRESSION/PLAN: Marek Ramsay is now in atrial fibrillation. He is asymptomatic. This will be very difficult to manage because it is well controlled and asymptomatic, not to mention the fact that he likely has underlying sleep apnea which is untreated. I strongly advised him to get a sleep study done and let me know when it is finished and he is on appropriate therapy. We can then have a conversation about possible rhythm control. In the meantime, he has been advised to continue his current medication. His heart failure is well compensated. Rate is well-controlled I will see him in 6 months or as needed. Written and verbal health teaching given to patient, patient verbalizes understanding and agrees with treatment plan. DIAGNOSIS FOR VISIT: Atrial flutter CHF HISTORY OF PRESENT ILLNESS Marek Ramsay returns for follow-up of his atrial arrhythmia, hypertension and diastolic heart failure. Despite decreasing Lasix, he has maintained his weight. He's had minimal edema. He denies chest pain. He's had no orthopnea. He has been struggling with some diabetic ulcers and has not had time to get his sleep study done. He reports no palpitations. He's had no TIAs, amaurosis or claudication. ALLERGIES: ALLERGIES Allergen Reactions - Cephalexin Rash, Swelling - Penicillins Unknown childhood CURRENT OUTPATIENT MEDICATIONS: dicyclomine (BENTYL) 20 mg tablet TAKE 1 TABLET THREE TIMES A DAY BEFORE MEALS ranitidine (ZANTAC) 150 mg tablet TAKE 1 TABLET TWICE A DAY carvedilol (COREG) 25 mg tablet TAKE 1 TABLET TWICE A DAY (TAKE WITH 12.5MG TWICE A DAY FOR A TOTAL OF 37.5MG TWICE A DAY) venlafaxine XR (EFFEXOR XR) 150 mg 24 hr capsule TAKE 1 CAPSULE DAILY pravastatin (PRAVACHOL) 80 mg tablet TAKE 1 TABLET DAILY busPIRone (BUSPAR) 10 mg tablet Take 1 tablet by mouth twice daily. glipiZIDE (GLUCOTROL) 5 mg tablet One tab daily at dinner Insulin NPH human (HUMULIN N KWIKPEN) 100 unit/mL (3 mL) inpn injection pen Inject 8 Units subcutaneously daily at bedtime. Insulin [place], Disposable, (BD ULTRAFINE III MINI PEN) 31 gauge x 3/16 ndle USE WITH INSULIN PENS 1 TIMES DAILY furosemide (LASIX) 40 mg tablet Take 1 tablet by mouth once daily. NIFEdipine XL (AFEDITAB CR) 30 mg 24 hr tablet Take 1 tablet by mouth once daily. warfarin (COUMADIN) 5 mg tablet TAKE 2 TABLETS DAILY warfarin (COUMADIN) 1 mg tablet TAKE 3 TABLETS DAILY gabapentin (NEURONTIN) 300 mg capsule TAKE 2 CAPSULES IN THE MORNING AND 2 CAPSULES AT BEDTIME DIRECTED carvedilol (COREG) 12.5 mg tablet Take 1 tablet by mouth twice daily. Psyllium Seed-Sucrose (METAMUCIL, SUGAR,) powd Take 1 Tablespoonful by mouth as needed. Cholecalciferol, Vitamin D3, 5,000 unit tab Take 1 tablet by mouth once daily. CALCIUM CARBONATE/VITAMIN D3 (VITAMIN D-3 ORAL) Take 1 tablet by mouth once daily. warfarin (COUMADIN) 5 mg tablet Alternating 12 mg every other day with 13 mg every other day (Uses weekly box that fills every week) MULTIVITAMIN ORAL TAB Take one(1) tablet daily. PHYSICAL EXAMINATION: VITAL SIGNS: BP 120/62 Pulse 77 Ht 5' 8 (1.73m) Wt 328 lb 14.4 oz (149.2kg) BMI 50.02 kg/(m2). Chest: Clear to percussion and auscultation. Trachea is midline. Air entry is equal. Cardiac: Irregularly irregular rhythm. S1 and S2 are normal. PMI is nondisplaced. There is a soft systolic ejection murmur. Carotids are brisk without bruits. JVP is less than 10 cm. Abdomen: Soft and nontender. Exam is compromised by obesity. There are no pulsatile masses or bruits. No liver enlargement. Bowel sounds are active. Extremities: Chronic stasis changes with 1 plus edema. Pulses are intact and symmetrical. EKG shows atrial fibrillation with controlled response. Recent labs are reviewed. Renal function is moderately impaired and slightly worse. LDL was 97. TSH is normal. Electronically Signed: Aditya Avila MD June 27, 2017 8:46 AM CC: Alok NgOV Observed: 06/27/2017 Status: COMPLETED Source: [place] 8:30 AM [facility] OTHER [place] REPOSITORY Office Visit (AGCARDWST) MAREK RAMSAY ([id number]) 1960 M Date Time Provider Department 06/27/17 8:30 AM ADITYA AVILA AGCARDWSIngrid During your visit today, we recorded the following information about you: Pulse Blood pressure Weight Height 77/minute 120/62 149.2 kg 1.727 m Aditya Avila 06/27/2017 8:55 AM Signed PERTINENT CARDIAC HISTORY Atrial fib HTN HL DM Intolerant of SRINIVASA-I/arb - hyperkalemia CHF - diastolic ADHERENCE TO GUIDELINES SRINIVASA-I or ARB for HF with prior LVEF<40 (NQF 0081) - N/A ASA or Plavix for ASHD (NQF 0067) - N/A Beta ashlee for ASHD with prior OK or prior LVEF<40 (NQF 0070) - N/A Beta ashlee for HF with prior LVEF<40 (NQF 0083) - N/A SRINIVASA-I or ARB for ASHD with DM or prior LVEF<40 (NQF 0066) - hyperkalemia, CRF Statin therapy for ASHD or FHL or DM - met BMI documented and plan if >25 (NQF 0421) - lifestyle recommendation form Tobacco use screening and referral (NQF 0028) - lifestyle recommendation form Recommendation for whole food, plant based diet - lifestyle recommendation form CLINICAL IMPRESSION/PLAN: Marek Ramsay is now in atrial fibrillation. He is asymptomatic. This will be very difficult to manage because it is well controlled and asymptomatic, not to mention the fact that he likely has underlying sleep apnea which is untreated. I strongly advised him to get a sleep study done and let me know when it is finished and he is on appropriate therapy. We can then have a conversation about possible rhythm control. In the meantime, he has been advised to continue his current medication. His heart failure is well compensated. Rate is well-controlled I will see him in 6 months or as needed. Written and verbal health teaching given to patient, patient verbalizes understanding and agrees with treatment plan. DIAGNOSIS FOR VISIT: Atrial flutter CHF HISTORY OF PRESENT ILLNESS Marek Ramsay returns for follow-up of his atrial arrhythmia, hypertension and diastolic heart failure. Despite decreasing Lasix, he has maintained his weight. He's had minimal edema. He denies chest pain. He's had no orthopnea. He has been struggling with some diabetic ulcers and has not had time to get his sleep study done. He reports no palpitations. He's had no TIAs, amaurosis or claudication. ALLERGIES: ALLERGIES Allergen Reactions - Cephalexin Rash, Swelling - Penicillins Unknown childhood CURRENT OUTPATIENT MEDICATIONS: dicyclomine (BENTYL) 20 mg tablet TAKE 1 TABLET THREE TIMES A DAY BEFORE MEALS ranitidine (ZANTAC) 150 mg tablet TAKE 1 TABLET TWICE A DAY carvedilol (COREG) 25 mg tablet TAKE 1 TABLET TWICE A DAY (TAKE WITH 12.5MG TWICE A DAY FOR A TOTAL OF 37.5MG TWICE A DAY) venlafaxine XR (EFFEXOR XR) 150 mg 24 hr capsule TAKE 1 CAPSULE DAILY pravastatin (PRAVACHOL) 80 mg tablet TAKE 1 TABLET DAILY busPIRone (BUSPAR) 10 mg tablet Take 1 tablet by mouth twice daily. glipiZIDE (GLUCOTROL) 5 mg tablet One tab daily at dinner Insulin NPH human (HUMULIN N KWIKPEN) 100 unit/mL (3 mL) inpn injection pen Inject 8 Units subcutaneously daily at bedtime. Insulin [place], Disposable, (BD ULTRAFINE III MINI PEN) 31 gauge x 3/16 ndle USE WITH INSULIN PENS 1 TIMES DAILY furosemide (LASIX) 40 mg tablet Take 1 tablet by mouth once daily. NIFEdipine XL (AFEDITAB CR) 30 mg 24 hr tablet Take 1 tablet by mouth once daily. warfarin (COUMADIN) 5 mg tablet TAKE 2 TABLETS DAILY warfarin (COUMADIN) 1 mg tablet TAKE 3 TABLETS DAILY gabapentin (NEURONTIN) 300 mg capsule TAKE 2 CAPSULES IN THE MORNING AND 2 CAPSULES AT BEDTIME DIRECTED carvedilol (COREG) 12.5 mg tablet Take 1 tablet by mouth twice daily. Psyllium Seed-Sucrose (METAMUCIL, SUGAR,) powd Take 1 Tablespoonful by mouth as needed. Cholecalciferol, Vitamin D3, 5,000 unit tab Take 1 tablet by mouth once daily. CALCIUM CARBONATE/VITAMIN D3 (VITAMIN D-3 ORAL) Take 1 tablet by mouth once daily. warfarin (COUMADIN) 5 mg tablet Alternating 12 mg every other day with 13 mg every other day (Uses weekly box that fills every week) MULTIVITAMIN ORAL TAB Take one(1) tablet daily. PHYSICAL EXAMINATION: VITAL SIGNS: BP 120/62 Pulse 77 Ht 5' 8 (1.73m) Wt 328 lb 14.4 oz (149.2kg) BMI 50.02 kg/(m2). Chest: Clear to percussion and auscultation. Trachea is midline. Air entry is equal. Cardiac: Irregularly irregular rhythm. S1 and S2 are normal. PMI is nondisplaced. There is a soft systolic ejection murmur. Carotids are brisk without bruits. JVP is less than 10 cm. Abdomen: Soft and nontender. Exam is compromised by obesity. There are no pulsatile masses or bruits. No liver enlargement. Bowel sounds are active. Extremities: Chronic stasis changes with 1 plus edema. Pulses are intact and symmetrical. EKG shows atrial fibrillation with controlled response. Recent labs are reviewed. Renal function is moderately impaired and slightly worse. LDL was 97. TSH is normal. Electronically Signed: Aditya Avila MD June 27, 2017 8:46 AM CC: Alok Ng Kenneth E 06/27/2017 8:46 AM Signed LIFESTYLE CHANGE A healthy lifestyle is the most important component of your overall treatment plan. Please give serious thought to the following areas and commit to making vice president investor relations changes. EAT A WHOLE FOOD, PLANT BASED DIET The nutrition your body gets is more important than the medicine you take. What matters most is the overall way you eat. We encourage you to minimize the use of animal products (which include dairy and all meats except fatty fish) and use whole, unprocessed plant foods to provide your protein, vitamins and other nutrients. We have a lot of information to share with you on this topic. This is not a diet. It is a way of life that you will keep with you. EXERCISE REGULARLY It is not important to spend hours in the gym, lifting weights and perspiring heavily. A total of 2-3 hours per week of aerobic (causing you to be moderately short of breath) exercise is sufficient to improve your health. Talk to us before you begin a new exercise program, if you have heart disease or experience shortness of breath or chest pain. REDUCE STRESS Chronic emotional and physical stress leads to disease. Ways of reducing stress include meditation, visualization, prayer, yoga and other forms of relaxation therapy. Consistency is the cheng. Find a technique that works for you and do it every day. CULTIVATE RELATIONSHIPS Loneliness and isolation have a major negative impact on health. Seek out others who can love, care for and nurture you. Avoid hurtful relationships. MAINTAIN IDEAL BODY WEIGHT The best way to do this is to do all the things above. Our bodies naturally find the right weight if we keep moving and feed ourselves the right food. If your BMI is greater than 25, we strongly recommend a referral to a weight management program. Please speak to us or your family physician about available programs. AVOID NICOTINE IN ALL FORMS This includes all tobacco products, whether chewed, smoked, vaped, or rubbed on the skin. Smoking cessation programs, which can make use of tobacco substitutes, medications to suppress cravings and behavior management, are available. Please contact your family physician about programs in your area. Referring Provider: ADITYA AVILA [[id number]] Allergies As of Date: 06/27/2017 Noted Allergy Reaction CEPHALEXIN 10/20/2004 2 - Rash 7 - Swelling PENICILLINS 10/20/2004 16 - Unknown Comments: childhood Date Reviewed: 06/27/2017 Reviewed by: Mary Dunn (Catherine) - Fully Assessed Reason for Visit: Follow Up [171] Primary Visit Diagnosis:Atrial fibrillation, chronic ([facility]) [I48.2] Other Visit Diagnosis:Chronic diastolic CHF (congestive heart failure) ([facility]) [I50.32] Order(s):ECG B/O W INTERP (MED OFFICE) [ECG06] Order #: [id number] Prescriptions as of 06/27/2017 Sig: DICYCLOMINE 20 MG TABLET TAKE 1 TABLET THREE TIMES A D* RANITIDINE 150 MG TABLET TAKE 1 TABLET TWICE A DAY CARVEDILOL 25 MG TABLET TAKE 1 TABLET TWICE A DAY (TA* VENLAFAXINE ER 150 MG CAPSULE* TAKE 1 CAPSULE DAILY PRAVASTATIN 80 MG TABLET TAKE 1 TABLET DAILY BUSPIRONE 10 MG TABLET Take 1 tablet by mouth twice * GLIPIZIDE 5 MG TABLET One tab daily at dinner INSULIN NPH ISOPHANE U-100 HU* Inject 8 Units subcutaneously* PEN NEEDLE, DIABETIC 31 GAUGE* USE WITH INSULIN PENS 1 TIMES* FUROSEMIDE 40 MG TABLET Take 1 tablet by mouth once d* NIFEDIPINE ER 30 MG TABLET,EX* Take 1 tablet by mouth once d* WARFARIN 5 MG TABLET TAKE 2 TABLETS DAILY WARFARIN 1 MG TABLET TAKE 3 TABLETS DAILY GABAPENTIN 300 MG CAPSULE TAKE 2 CAPSULES IN THE MORNIN* CARVEDILOL 12.5 MG TABLET Take 1 tablet by mouth twice * PSYLLIUM SEED (SUGAR) ORAL PO* Take 1 Tablespoonful by mouth* CHOLECALCIFEROL (VITAMIN D3) * Take 1 tablet by mouth once d* VITAMIN D-3 ORAL Take 1 tablet by mouth once d* WARFARIN 5 MG TABLET Alternating 12 mg every other* MULTIVITAMIN TABLET Take one(1) tablet daily. Problem List As Of Date 06/27/2017 Noted Resolved BMI 50.0-59.9, adult ([facility]) [Z68.43] INVALID FOR* Cellulitis and abscess of leg, except foot [L03*INVALID FOR*04/05/2013 Phlebitis and thrombophlebitis of superficial v*INVALID FOR*04/05/2013 Recurrent major depression in partial remission*INVALID FOR* Type 2 diabetes mellitus with proteinuria or mi*INVALID FOR*09/18/2013 Venous (peripheral) insufficiency [I87.2] More... MIXED HYPERLIPIDEMIA [E78.2] INVALID FOR* Panic disorder with agoraphobia [F40.01] Leg cramps [R25.2] INVALID FOR* More... 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 Proteinuria [R80.9] INVALID FOR* Atrial fibrillation (HCC) [I48.91] More... Anemia [D64.9] GERD (gastroesophageal reflux disease) [K21.9] Morbid obesity (HCC) [E66.01] INVALID FOR* Controlled type 2 diabetes mellitus with diabet*INVALID FOR* Controlled type 2 diabetes mellitus with stage *INVALID FOR* Other instructions from your clinician: LIFESTYLE CHANGE A healthy lifestyle is the most important component of your overall treatment plan. Please give serious thought to the following areas and commit to making vice president investor relations changes. EAT A WHOLE FOOD, PLANT BASED DIET The nutrition your body gets is more important than the medicine you take. What matters most is the overall way you eat. We encourage you to minimize the use of animal products (which include dairy and all meats except fatty fish) and use whole, unprocessed plant foods to provide your protein, vitamins and other nutrients. We have a lot of information to share with you on this topic. This is not a diet. It is a way of life that you will keep with you. EXERCISE REGULARLY It is not important to spend hours in the gym, lifting weights and perspiring heavily. A total of 2-3 hours per week of aerobic (causing you to be moderately short of breath) exercise is sufficient to improve your health. Talk to us before you begin a new exercise program, if you have heart disease or experience shortness of breath or chest pain. REDUCE STRESS Chronic emotional and physical stress leads to disease. Ways of reducing stress include meditation, visualization, prayer, yoga and other forms of relaxation therapy. Consistency is the cheng. Find a technique that works for you and do it every day. CULTIVATE RELATIONSHIPS Loneliness and isolation have a major negative impact on health. Seek out others who can love, care for and nurture you. Avoid hurtful relationships. MAINTAIN IDEAL BODY WEIGHT The best way to do this is to do all the things above. Our bodies naturally find the right weight if we keep moving and feed ourselves the right food. If your BMI is greater than 25, we strongly recommend a referral to a weight management program. Please speak to us or your family physician about available programs. AVOID NICOTINE IN ALL FORMS This includes all tobacco products, whether chewed, smoked, vaped, or rubbed on the skin. Smoking cessation programs, which can make use of tobacco substitutes, medications to suppress cravings and behavior management, are available. Please contact your family physician about programs in your area. Encounter Status:Closed by ADITYA AVILA MD on 06/27/17 LOWER EXT ARTERIAL Observed: 06/24/2017 Status: F Source: [place] STUDY 2:42 PM [facility] [facility] [place] Cardiovascular Services [address] [place] [id number] 06/24/17 1437 MR#: [id number] Acct: [id number] Name: MAREK RAMSAY II Rep #: [id number] : 1960 57 From: Timothy Murray MD Attending Dr: Yoko Oneal DPM Status: DIS RCR Ordering Dr: Date: 06/24/17 Location: [facility] Sex: M C Admitted: Arterial Study - Arterial Study Arterial Study: This is a 57-year-old male with a history of atrial fibrillation, diabetes mellitus, hypertension, and peripheral arterial occlusive disease. The patient was brought to the noninvasive vascular laboratory at this time for the purpose of bilateral noninvasive lower extremity arterial assessment. Doppler signal assessment was used to evaluate the pulses at ankle level bilaterally. On the right, the posterior tibial and dorsalis pedis pulses were biphasic. The left posterior tibial and dorsalis pedis pulses were monophasic. Segmental limb pressures were obtained bilaterally. The right low thigh pressure was measured at 138 mmHg. Right calf pressure was measured at 139 mm. The right ankle pressure, as determined by posterior tibial pulse, was measured at 180 mmHg. The right ankle pressure, as determined by dorsalis pedis pulse, could not be determined due to the noncompressibility of the vasculature. The right digital pressure was measured at 44 mmHg. The left low thigh pressure, left calf pressure, and the left ankle pressure, as determined by dorsalis pedis pulse, could not be determined due to the noncompressibility of the vasculature. The left ankle pressure, as determined by posterior tibial pulse, was measured at 136 mmHg. The left digital pressure was measured at 20 mmHg. Pulse-volume recordings were obtained bilaterally and segmentally. Waveform amplitudes appeared to be diminished at calf level on the left, and at ankle and digital levels bilaterally. Resting ankle-brachial indices were calculated bilaterally. The resting right ankle-brachial index was calculated to be 1.18. The resting left ankle-brachial index was calculated to be 0.89. Digital-brachial indices were calculated bilaterally. The right digital-brachial index was calculated to be 0.29. The left digital-brachial index was calculated to be 0.13. Impression: Based upon the findings of this resting noninvasive lower extremity arterial study, there is evidence of severe arterial occlusive disease in the lower extremities bilaterally, with severe impairment of arterial perfusion at digital level bilaterally. The resting right ankle-brachial index is normal. The resting left ankle-brachial index is mildly diminished. However, biphasic waveforms are noted at ankle level on the right, and monophasic waveforms are noted at ankle level on the left. Furthermore, digital-brachial indices are severely diminished. These findings suggest relatively normal arterial flow to ankle level bilaterally, but severe, distal small-vessel arterial occlusive disease bilaterally. Of note, arterial calcification is suspected, due to the noncompressibility of the vasculature in segments bilaterally. This may factitiously elevate arterial pressures, and render ankle-brachial indices inaccurate, not reflecting the true severity of the occlusive process. Clinical correlation is advised. 06/24/17 1442 <Electronically signed by Timothy Murray MD> Date Timothy Murray MD CC: Yoko Oneal DPM; Alok Ng MD Date Dictated: 06/24/171436 Date Transcribed: 06/24/171436 Glost Tile Shader: MORIAH Baptiste VENOUS DUPLEX LOWER Observed: 06/17/2017 Status: F Source: [place] EXTREMITY 8:43 PM [facility] [place] [facility] Cardiovascular Services [address] [place] [address] Venous Duplex US - Jarrod Extrem 06/16/17 0937 MR#: [id number] Acct: [id number] Name: MAREK RAMSAY II Rep #: [id number] : 1960 57 From: Timothy Murray MD Attending Dr: Yoko Oneal DPM Status: REG RCR Ordering Dr: Yoko Oneal DPM Date: 06/16/17 Location: [facility] Sex: M C Admitted: Reason For Study: Swelling RIGHT LEFT GSV is normal. CFV is compressible, spontaneous, phasic, CFV is compressible, spontaneous, phasic, competent, and demonstrates normal competent and demonstrates normal augmentation. augmentation. FV is compressible, spontaneous, phasic, FV is compressible, spontaneous, phasic, competent and demonstrates normal competent and demonstrates normal augmentation. augmentation. POP V is compressible, spontaneous, phasic, POP V is compressible, spontaneous, phasic, competent and demonstrates normal competent and demonstrates normal augmentation. augmentation. T/P Trunk is compressible. T/P Trunk is compressible. PTV is compressible. PTV is compressible. LT PerV is compressible. RT PerV is compressible. Lt SFJ is Incompetent Rt SFJ is Competent Lt GSV thigh not well visualized due to very Rt GSV is Competent small vessel Rt SSV is Competent. Lt GSV is Incompetent in the calf with Procedure reflux greater than 0.5 sec and a diameter Exam performed in department. of 0.47cm x 0.66cm A preliminary report was called and/or faxed to Wound Center. Lt SSV is Incompetent with reflux greater than 0.5 sec and a diameter of 0.45cm x 0.46cm Difficult to visualize Lt CFV and Lt PeroV Large varicosities with flow noted in mid thigh from Lt FV. Interpretation Summary Deep veins of the lower extremities are bilaterally patent and compressible segmentally. There is no evidence of deep vein thrombosis on either side. Valvular competence appears intact within the proximal deep venous systems bilaterally. The right greater saphenous vein appears patent and compressible segmentally. The left greater saphenous vein is diminutive in the thigh, and patent and compressible in the left calf. The right sapheno-femoral junction is competent . The left sapheno-femoral junction is incompetent . The right greater saphenous vein appears segmentally competent. The left greater saphenous vein is incompetent in the calf, and unassessable in the thigh. The right small saphenous vein is patent and competent. The left small saphenous vein is patent and incompetent. Large varicosities are noted in the left mid-thigh. Ordering Physician: Yoko Oneal Referring Physician: Alok Ng Performed By: Brisa Franklin, RDCS, RVT 06/17/172041 Date Timothy Murray MD CC: Yoko Oneal DPM; Alok Ng MD Date Dictated: 06/16/1737 Date Transcribed: 06/17/172041 Glost Tile Shader: Signed FOOT MIN 3 VIEWS Observed: 06/09/2017 Status: F Source: [place] 11:00 AM [facility] Imaging Services [address] [place] [id number] Foot min 3 Views MR#: [id number] Acct: [id number] Name: DEVENDRAMAREK II Rep #: [id number] : 1960 M 57 From: Devin Beckett MD PCP: Alok Ng MD Status: REG RCR Study: Foot min 3 Views Date of Exam: 06/09/17 Exam# [id number] Ordering Dr: Yoko Oneal DPM STUDY: X-RAY - LEFT FOOT CLINICAL: Male, 57 years old. Ulcer TECHNIQUE: 3 view(s) of the foot. COMPARISON: None. FINDINGS: Normal talus, calcaneus, and tarsal bones. Normal visualized subtalar, talonavicular, calcaneocuboid, tarsal and tarsometatarsal articulations. Normal metatarsi. Normal metatarsophalangeal joint of the great toe. Normal tibial and fibular sesamoid bones. Normal interphalangeal joint of the great toe. Normal phalanges of the great toe. Normal second through fifth metatarsophalangeal joints. Normal interphalangeal joints and phalanges of the lesser toes. Plantar soft tissue air likely at site of ulcer. Arterial calcifications. RAD/Foot min 3 Views IMPRESSION: No focal osseous lesion is evident. If there is further concern for osteomyelitis, consider correlation with three-phase bone scan or contrast-enhanced MRI. Electronically Signed: Devin Beckett MD at 8:18 EDT Tel , Service support , CC: Yoko Oneal DPM; Alok Ng MD Glost Tile Shader: Signed PROTIME Collected: 06/05/2017 Status: F Source: [place] 1:00 PM [facility] REPOSITORY TYPE CODE TESTS RESULT OUT OF RANGE REFERENCE UNITS LAB PSEC 9.7-13.0 sec High PT Sec 22.0 LAB INR 0.9-1.3 High PT INR 2.2 Result Comment: Vitamin K Antagonist (VKA) Therapeutic Range: INR 2 to 3 (Target INR of 2.5) Note: For patients treated with VKA drugs, such as warfarin, the [place] [employer] 2012 Guideline recommends a therapeutic INR range of 2 to 3 (target INR of 2.5). This recommendation includes high-risk patients with antiphospholipid syndrome with previous arterial or venous thromboembolism, current-generation mechanical or bioprosthetic aortic heart valve replacement. Note: Patients with mechanical aortic valve replacement and additional risk factors for thromboembolic events (atrial fibrillation, previous thromboembolism, LV dysfunction, hypercoagulable conditions) or an older generation mechanical AVR (i.e., ball in-Cage) or any mechanical MVR should have a INR therapeutic range of 2.5 to 3.5 (target INR of 3). Fabi GH, et al. Chest 2012, 141:7S-47S Los RA, et al. [facility] 2017, 70: 252-289 Performed By: #### PT #### [facility] [address] [place], [place] [address] WOUND CTR HISTORY Observed: 05/31/2017 Status: F Source: [place] AND PHYSICAL 10:11 PM [facility] [address] [place] [address] Wound Ctr History AND Physical 05/31/17 1721 MR#: [id number] Acct: [id number] Name: MAREK RAMSAY II Rep #: [id number] : 1960 57 From: Yoko Oneal DPM PCP: Alok Ng MD Status: REG RCR Y Location: WC (1) Chronic 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 Status: Chronic Current Visit: Yes Code(s): L97.522 - Non-pressure chronic ulcer of other part of 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 (2) Equinus contracture of left ankle Status: Chronic Current Visit: Yes Code(s): M24.572 - Contracture, left ankle (3) Edema of left lower leg due to peripheral venous insufficiency Status: Chronic Current Visit: Yes Code(s): I87.2 - Venous insufficiency (chronic) (peripheral); R60.9 - Edema, unspecified (4) Other specified peripheral vascular diseases Status: Chronic Current Visit: Yes Code(s): I73.89 - Other specified peripheral vascular diseases (5) History of DVT of lower extremity Status: Chronic Current Visit: Yes Code(s): Z86.718 - Personal history of other venous thrombosis and embolism (6) Type 2 diabetes mellitus with diabetic polyneuropathy Status: Chronic Current Visit: Yes Code(s): E11.42 - Type 2 diabetes mellitus with diabetic polyneuropathy History of Present Illness Date of Service: 05/31/17 Chief Complaint: L plantar foot ulceration History of Wound: This 57-year-old male with multiple comorbidities presents to the wound healing center for left heel ulcer. He reports the onset was approximately 1 month ago. He was referred from the foot and ankle center. He has applied Neosporin and hydrogel. He continues to wear he denies redness or odor. He denies antibiotic use. He does have rest burning and tingling. He denies claudication symptoms when he is walking. He reports a history of previous ulcer to the left foot on the top. He denies recent blood flow studies within the past 2 years. Past Medical History Past Medical History: Chronic Problems Chronic 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 (Chronic) Equinus contracture of left ankle (Chronic) Edema of left lower leg due to peripheral venous insufficiency (Chronic) Other specified peripheral vascular diseases (Chronic) Type 2 diabetes mellitus with diabetic polyneuropathy (Chronic) Depression (Chronic) Essential hypertension (Chronic) Morbid obesity (Chronic) Type 2 diabetes mellitus (Chronic) History of DVT of lower extremity (Chronic) Past Medical History: Past medical history: Diabetes with neuropathy, congestive heart failure, and hypertension, peripheral vascular disease, history of atrial fibrillation on chronic anticoagulation medications, history of left thigh and leg blood clots. Family history: Diabetes, cardiac disease, stroke Surgical History: noncontributory, - - carpal tunnel syndrom surgery Allergies/Adverse Reactions: Allergies cephalexin Allergy (Verified 12/02/16 11:33) Hives Penicillins Allergy (Verified 12/02/16 11:33) Hives Home Medications: Ambulatory Orders Medication Instructions Recorded Ascorbic Acid [Vitamin C] 1,000 mg PO DAILY 12/02/16 Buspirone HCl 10 mg PO DAILY 12/02/16 - Family History Maternal Heart Disease Lives: Alone Smoking Status: Never smoker Tobacco Use: Non-smoker Alcohol: None - previous use Drugs: None Review of Systems Constitutional: Denies: Chills, Fever, Weakness Cardiovascular: Denies: Chest Pain, Claudication Gastrointestinal: Denies: Diarrhea, Nausea, Vomiting Musculoskeletal: Denies: Foot Pain, Joint Tenderness Skin: Reports: Skin Changes, Wounds Neurological: Reports: Numbness Hematologic/ Lymphatic: Reports: Hx of blood clot - Physical Exam Vital Signs Temp Pulse Resp BP 99.1 F 82 18 128/80 H 05/31/17 15:20 05/31/17 15:20 05/31/17 15:20 05/31/17 15:20 General: Alert, Oriented x3, Cooperative Extremities: No cyanosis, Capillary Refill Less than 3 Seconds, No Calf Tenderness - Negative Jeronimo and Rutledge bilateral lower extremities, Peripheral Pulses Normal - Palpable dorsalis pedis pulse left and nonpalpable posterior tibia artery left Skin: Ulcer/ Wound - No purulence, no erythema, streaking, no odor, no necrosis, no infection left lower extremity ulcer. There is no deep probing, - - The peripheral skin is atrophic and without her left lower Wound Measurements and Assessment - Nurse 1 - General Ulcer Measurement Start: 05/31/17 15:18 Freq: Status: Active Protocol: Activity Type Activity Date Activity User E-Sign Co-Sign Detail Recorded Client Recorded Date Recorded By Document 05/31/17 15:20 DV [id number] 05/31/17 15:37 DV WC - Nurse 2 - General Ulcer CM Notes Start: 05/31/17 15:18 Freq: Status: Active Protocol: Activity Type Activity Date Activity User E-Sign Co-Sign Detail Recorded Client Recorded Date Recorded By Document 05/31/17 16:13 TM [id number] 05/31/17 16:20 Wound Center Nurse 2 [Procedure/Treatment] Musculoskeletal: No Tenderness to Palpation of Joints or Extremities, Muscle Wasting, - - Compartments of left lower extremity remain soft and there is no crepitus periwound palpation. There is decreased ankle joint dorsiflexion left lower extremity Neurological: - - Lack of epicritic sensation light touch bilateral lower extremities consistent with neuropathy Psych/Mental Status: Normal Affect, Appropriate Debridement Note Post-Debridement Measurements/Treatment - Nurse 2 - General Ulcer CM Notes Start: 05/31/17 15:18 Freq: Status: Active Protocol: Activity Type Activity Date Activity User E-Sign Co-Sign Detail Recorded Client Recorded Date Recorded By Document 05/31/17 16:13 TM [id number] 05/31/17 16:20 Wound Center Nurse 2 #1 Left Heel- Plantar -Time 16:14 -Correct Patient Yes -Correct Side, Site, Position Yes -Correct Procedure Yes Wound debrided: plantar heel Laterality: Left Wound Grade/Stage: grade 1 Type of Debridement: Excisional debridement Anesthesia Used: 4% Lidocaine Solution Depth: in the subcutaneous layer Percentage of wound debrided: 100 Instrument Used: #15 blade Tissue Removed: fibrous, devitalized subcutaneous, biofilm, slough Severity: Fat Layer Exposed Amount of bleeding with debridement: Mild Bleeding Controlled with: Pressure Patient tolerated procedure well Assessment/Plan Active Problems Chronic 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 (Chronic) Equinus contracture of left ankle (Chronic) Edema of left lower leg due to peripheral venous insufficiency (Chronic) Other specified peripheral vascular diseases (Chronic) Type 2 diabetes mellitus with diabetic polyneuropathy (Chronic) History of DVT of lower extremity (Chronic) Assessment: Type 2 diabetes, uncontrolled with neuropathy, PVD, venous insufficiency, ulcer of L plantar foot, obesity Plan: I reviewed and discussed his care plan and reviewed his previous chart. I discussed his ongoing treatment recommendations. Subcutaneous excisional debridement was performed as noted in the clinical panel. I recommend changing the dressing daily with hydrogel with collagen and to discontinue Neosporin application. I recommended advanced wound care product, epi fix which is derived from amniotic cord cells to optimize a timely healing process. Preauthorization will be initiated. He was reassured no local signs of infection are noted today. To offload the wound with a non pneumatic cam walker with dual density offloading pocket. A prescription was provided and he will obtain this at the foot and ankle center. Compliance was discussed. I recommend nutritional supplementation to optimize healing and improved diabetic control. A prescription for Marcos was provided and he was advised to drink this twice daily. His noninvasive vascular studies were reviewed from 2015 with a right TRISH of 1.12 and left of 1.17. His previous toe brachial indices were 0.4 right and 0.54 left. I recommend updating these at this time due to his return of the wound and delayed healing. I also ordered venous reflux studies to rule out venous insufficiency which may be contributing to his lower extremity edema and delayed wound healing. I ordered some labs including CBC, CMP, and hemoglobin A1c to better understand his medical stability. I will review all of these results when he returns to clinic next week. He understands he is at risk for delayed healing and limb loss. I answered all his questions. I recommend he follows up in 1 week or call sooner if he has any questions or concerns. If he is any status progression or concerns of infection he was advised to go to the emergency room immediately. 05/31/17 7182 <Electronically signed by Yoko Oneal DPM> Date Yoko Oneal DPM CC: Signed CBC W/DIFF, AUTOMATED Collected: 05/31/2017 Status: F Source: [place] 5:00 PM [facility] [facility] [place] TYPE CODE TESTS RESULT OUT OF RANGE REFERENCE UNITS LAB L100.1000 4.4-11.0 K/mm3 Normal WBC 7.0 LAB L100.1200 4.6-6.2 M/mm3 Low RBC 3.97 LAB L100.1300 13.0-16.5 g/dl Low HGB 11.7 LAB L100.1400 40-54 % Low HCT 36.7 LAB L100.1500 80-94 fL Normal MCV 92.4 LAB L100.1600 27.0-32.0 pg Normal MCH 29.5 LAB L100.1700 32-36 g/gl Low MCHC 31.9 LAB L100.1810 11.6-14.6 % Normal RDW CV 13.6 LAB L100.1820 35.1-43.9 fl High RDW SD 45.8 LAB L100.1900 150-450 K/mm3 Normal PLT 209 LAB L100.2000 6.2-12.0 fl Normal MPV 10.5 LAB L100.2100 47-70 % Normal NEUT% 64.9 LAB L100.2200 19-41 % Normal LY% 24.9 LAB L100.2300 0-10 % Normal MONO% 7.3 LAB L100.2400 0-5 % Normal EO% 2.4 LAB L100.2500 0-1 % Normal BASO% 0.4 LAB L100.2550 0.0-0.9 % Normal IM GRAN % 0.100 Result Comment: IG% - Immature Granulocytes (promyelocytes, myelocytes and metamyelocytes) > 1% indicates that a LEFT SHIFT is Present. LAB L100.2620 2.0-7.7 X10 3/uL Normal Absolute Neut 4.6 LAB L100.2720 0.83-4.51 X10 3/ul Normal Absolute Lymph 1.75 Performed By: #### L100.0100 #### [facility] [address] [place], [place], [id number] COMPREHENSIVE METABOLIC Collected: 05/31/2017 Status: F Source: [place] 5:00 PM [facility] [facility] [place] TYPE CODE TESTS RESULT OUT OF RANGE REFERENCE UNITS LAB L501.0100 74-106 mg/dL Normal GLU 95 Result Comment: Please note revised GLUCOSE reference range effective 2017. LAB L501.1000 7-18 mg/dL High BUN 72 LAB L501.1100 0.70-1.30 mg/dL High CREAT,SERUM 3.12 Result Comment: The validity of the calculated GFR AND GFRAA in patients over 70 years has not been determined. Clinical correlation is essential. LAB L501.1110 >60 mL/min Low EST GFR 22 Result Comment: Non- GFR Calc LAB L501.1115 >60 mL/min Low EST GFR - AA 27 Result Comment: GFR Calc LAB L501.1300 10-20 RATIO High BUN/CRE 23.1 LAB L501.1500 6.4-8.2 g/dL High T PROT 8.4 LAB L501.1800 3.2-5.0 g/dL Normal ALB 3.9 LAB L501.1950 2.2-4.2 g/dL High GLOB 4.5 LAB L501.2000 0.9-2.4 RATIO Normal A/G 0.9 LAB L501.2200 8.5-10.1 mg/dL CA Normal 9.0 LAB L501.4100 15-37 U/L Normal AST 22 LAB L501.4305 45-117 U/L Normal ALK P 72 LAB L501.4405 16-61 U/L Normal ALT 29 Result Comment: Please note revised ALT reference range effective 2017. LAB L501.4600 0.20-1.00 mg/dL Normal T BILI 0.20 LAB L501.5300 136-145 mmol/L High NA 146 LAB L501.5600 3.5-5.1 mmol/L Normal K 5.1 LAB L501.5900 98-107 mmol/L High CL 112 LAB L501.6100 21.0-32.0 mmol/L Normal CO2 25.0 LAB L501.6200 5-15 Normal GAP 9 Performed By: #### L500.4050 #### [facility] [address] [place], [address] HEMOGLOBIN A1C Collected: 05/31/2017 Status: F Source: [place] 5:00 [place] [facility] [place] CODE TESTS RESULT OUT OF RANGE REFERENCE UNITS LAB L501.9985 4.2-6.3 % High HGB A1C 7.2 Performed By: #### L501.9985 #### [facility] [address], [address] OBSOLETE Observed: 04/24/2017 Status: COMPLETED Source: [place] 12:00 AM [facility] REPOSITORY Refill (AGCARDWST) MAREK RAMSAY ([id number]) 1960 M Date Time Provider Department 04/24/17 ADITYA AVILAWST During your visit today, we recorded the following information about you: Aditya Avila MD 04/24/2017 11:38 AM Signed The following approved medication requests have been transmitted electronically. Signed Prescriptions Disp Refills carvedilol (COREG) 25 mg tablet 180 tablet 3 Sig: TAKE 1 TABLET TWICE A DAY (TAKE WITH 12.5MG TWICE A DAY FOR A TOTAL OF 37.5MG TWICE A DAY) HARJEET: No Authorizing Provider: ADITYA AVILA MD Allergies As of Date: 04/24/2017 Noted Allergy Reaction CEPHALEXIN 10/20/2004 2 - Rash 7 - Swelling PENICILLINS 10/20/2004 16 - Unknown Comments: childhood Date Reviewed: 04/18/2017 Reviewed by: Pat (Moiz Fishman - Fully Assessed Reason for Visit: Refill Request [94] Order(s):carvedilol (COREG) 25 mg tabletTAKE 1 TABLET TWICE A DAY (TAKE WITH 12.5MG TWICE A DAY FOR A TOTAL OF 37.5MG TWICE A DAY)Disp: 180 tabletRfl: 3 Prescriptions as of 04/24/2017 Sig: CARVEDILOL 25 MG TABLET TAKE 1 TABLET TWICE A DAY (TA* VENLAFAXINE ER 150 MG CAPSULE* TAKE 1 CAPSULE DAILY PRAVASTATIN 80 MG TABLET TAKE 1 TABLET DAILY BUSPIRONE 10 MG TABLET Take 1 tablet by mouth twice * GLIPIZIDE 5 MG TABLET One tab daily at dinner INSULIN NPH ISOPHANE U-100 HU* Inject 8 Units subcutaneously* PEN NEEDLE, DIABETIC 31 GAUGE* USE WITH INSULIN PENS 1 TIMES* FUROSEMIDE 40 MG TABLET Take 1 tablet by mouth once d* NIFEDIPINE ER 30 MG TABLET,EX* Take 1 tablet by mouth once d* WARFARIN 5 MG TABLET TAKE 2 TABLETS DAILY WARFARIN 1 MG TABLET TAKE 3 TABLETS DAILY GABAPENTIN 300 MG CAPSULE TAKE 2 CAPSULES IN THE MORNIN* CARVEDILOL 12.5 MG TABLET Take 1 tablet by mouth twice * DICYCLOMINE 20 MG TABLET Take 1 tablet by mouth three * RANITIDINE 150 MG TABLET Take 1 tablet by mouth twice * PSYLLIUM SEED (SUGAR) ORAL PO* Take 1 Tablespoonful by mouth* CHOLECALCIFEROL (VITAMIN D3) * Take 1 tablet by mouth once d* VITAMIN D-3 ORAL Take 1 tablet by mouth once d* WARFARIN 5 MG TABLET Alternating 12 mg every other* MULTIVITAMIN TABLET Take one(1) tablet daily. Problem List As Of Date 04/24/2017 Noted Resolved BMI 50.0-59.9, adult ([facility]) [Z68.43] INVALID FOR* Cellulitis and abscess of leg, except foot [L03*INVALID FOR*04/05/2013 Phlebitis and thrombophlebitis of superficial v*INVALID FOR*04/05/2013 Recurrent major depression in partial remission*INVALID FOR* Type 2 diabetes mellitus with proteinuria or mi*INVALID FOR*09/18/2013 Venous (peripheral) insufficiency [I87.2] More... MIXED HYPERLIPIDEMIA [E78.2] INVALID FOR* Panic disorder with agoraphobia [F40.01] Leg cramps [R25.2] INVALID FOR* More... 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 Proteinuria [R80.9] INVALID FOR* Atrial fibrillation ([facility]) [I48.91] More... Anemia [D64.9] GERD (gastroesophageal reflux disease) [K21.9] Morbid obesity (HCC) [E66.01] INVALID FOR* Controlled type 2 diabetes mellitus with diabet*INVALID FOR* Controlled type 2 diabetes mellitus with stage *INVALID FOR* Prescriptions ordered this encounter Disp Refills Start End CARVEDILOL 25 MG TABLET 180 * 3 04/24/2017 Sig: TAKE 1 TABLET TWICE A DAY (TAKE WITH 12.5MG TWICE A DAY FOR A TOTAL OF 37.5MG TWICE A DAY) Medications Discontinued During This Encounter carvedilol (COREG) 25 mg tablet 90 t* 3 08/01/2016 04/24/2017 Class: [facility] Route: ORAL Sig: Take 1 tablet by mouth twice daily. Disc: Reason for discontinue is not on file. Encounter Status:Closed by MARY DUNN MA on 04/24/17 PROTIME Collected: 04/19/2017 Status: F Source: [place] 7:35 AM [facility] REPOSITORY TYPE CODE TESTS RESULT OUT OF RANGE REFERENCE UNITS LAB PSEC 9.7-13.0 sec High PT Sec 16.3 LAB INR 0.9-1.3 High PT INR 1.6 Result Comment: Vitamin K Antagonist (VKA) Therapeutic Range: INR 2 to 3 (Target INR of 2.5) Note: For patients treated with VKA drugs, such as warfarin, the [place] [employer] 2012 Guideline recommends a therapeutic INR range of 2 to 3 (target INR of 2.5). This recommendation includes high-risk patients with antiphospholipid syndrome with previous arterial or venous thromboembolism, current-generation mechanical or bioprosthetic aortic heart valve replacement. Note: Patients with mechanical aortic valve replacement and additional risk factors for thromboembolic events (atrial fibrillation, previous thromboembolism, LV dysfunction, hypercoagulable conditions) or an older generation mechanical AVR (i.e., ball in-Cage) or any mechanical MVR should have a INR therapeutic range of 2.5 to 3.5 (target INR of 3). Kendytt GH, et al. Chest 2012, 141:7S-47S Los RA, et al. JAC 2017, 70: 252-289 Performed By: #### PT #### [facility] [address] [address] COMP METABOLIC PANEL Collected: 04/19/2017 Status: F Source: [place] 7:35 [facility] REPOSITORY TYPE CODE TESTS RESULT OUT OF REFERENCE UNITS RANGE LAB TP 6.3-8.0 g/dL Protein, Total 7.1 LAB ALB 3.9-4.9 g/dL Low Albumin 3.7 LAB CA 8.5-10.2 mg/dL Calcium, Total 8.6 LAB TBIL 0.2-1.3 mg/dL Bilirubin, Total 0.3 LAB ALKP 36-108 U/L Alkaline Phosphatase 52 LAB AST 14-40 U/L AST 24 LAB GLU 74-99 mg/dL Glucose High 136 Result Comment: The [place] Diabetes Association (ADA) provides guidance for cutoff values for fasting glucose and random glucose. The ADA defines fasting as no caloric intake for at least 8 hours. Fas ting plasma glucose results between 100 to 125 mg/dL indicate increased risk for diabetes (prediabetes). Fasting plasma glucose results greater than or equal to 126 mg/dL meet the criteria for diagnosis of diabetes. In the absence of unequivocal hyperglycemia, results should be confirmed by repeat testing. In a patient with classic symptoms of hyperglycemia or hyperglycemic crisis, random plasma glucose results greater than or equal to 200 mg/dL meet the criteria for diagnosis of diabetes. Reference: Standards of Medical Care in Diabetes 2016, [place] [employer]. Diabetes Care. 2016.39(Suppl 1). LAB BUN 9-24 mg/dL BUN High 59 LAB CRET 0.73-1.22 mg/dL Creatinine High 3.14 LAB NA 136-144 mmol/L Sodium 144 LAB K 3.7-5.1 mmol/L Potassium 4.8 LAB CL 97-105 mmol/L Chloride High 110 LAB CO2 22-30 mmol/L Low CO2 20 LAB AGAP 9-18 mmol/L Anion Gap 14 LAB ALT 10-54 U/L ALT 19 LAB GFRAA eGFR- Amer. 25 LAB GFRNAA . eGFR-All Other Races 21 Result Comment: eGFR (Estimated GFR) Units of measure: mL/min/1.73 meters squared eGFR is derived from the reexpressed MDRD Study equation using the following parameters: serum creatinine, age, gender and race. The creatinine assay has been calibrated to be traceable to IDMS. An eGFR <60 mL/min/1.73m2 for >3 months is consistent with chronic kidney disease. Refer to KDOQI guidelines for clinical interpretation. In patients with unstable renal function, e.g. those with acute kidney injury, the eGFR may not accurately reflect actual GFR. Performed By: #### CMP, LIPB, TSH #### [facility] [address] [place] [id number] LIPID PANEL, BASIC Collected: 04/19/2017 Status: F Source: [place] 7:35 AM [facility] REPOSITORY TYPE CODE TESTS RESULT OUT OF REFERENCE UNITS RANGE LAB CHOL <200 mg/dL Cholesterol 155 Result Comment: <200 mg/dL, Desirable 200-239 mg/dL, Borderline high >239 mg/dL, High LAB TRIGLY <150 mg/dL Triglyceride High 156 Result Comment: <150 mg/dL, Normal 150-199 mg/dL, Borderline high 200-499 mg/dL, High >499 mg/dL, Very high LAB HDL >39 mg/dL HDL-Cholesterol Low 27 Result Comment: 40-59 mg/dL, Acceptable >59 mg/dL, High: Negative risk factor for coronary heart disease <40 mg/dL, Low: Positive risk factor for coronary heart disease LAB LDL <100 mg/dL LDL-Cholesterol 97 Result Comment: <100 mg/dL, Optimal 100-129 mg/dL, Near optimal/above optimal 130-159 mg/dL, Borderline high 160-189 mg/dL, High >189 mg/dL, Very high Secondary prevention optimal LDL Cholesterol levels are recommended to be < 70 mg/dL LAB NONHDL <130 mg/dL Non HDL Cholesterol 128 Result Comment: <130 mg/dL, Optimal 130-159 mg/dL, Near optimal/above optimal 160-189 mg/dL, Borderline high 190-219 mg/dL, High >219 mg/dL, Very high Secondary prevention optimal non HDL Cholesterol levels are recommended to be < 100 mg/dL LAB FT hrs Fasting Time 9 LAB VLDL <30 mg/dL High VLDL Cholesterol 31 LAB TCHDL <5.10 High TC:HDL Ratio 5.74 LAB LDLHDL <2.54 High LDL:HDL Ratio 3.59 Result Comment: Reference: 1. National Cholesterol Education Program ATP III Guideline At-A-Glance Quick Desk Reference: National Heart, Lung, and Blood [place]. National Institutes of Health. 2001: NIH Publication No. 01-3305. 2. An International Atherosclerosis Society position paper: global recommendations for the management of dyslipidemia: executive summary, Atherosclerosis. 2014: 232(2):410-413. Performed By: #### CMP, LIPB, TSH #### [facility] [address] [place], [place] [address] TSH Collected: 04/19/2017 Status: F Source: [place] 7:35 AM [facility] REPOSITORY TYPE CODE TESTS RESULT OUT OF RANGE REFERENCE UNITS LAB TSH 0.400-5.500 uU/mL TSH 2.100 Performed By: #### CMP, LIPB, TSH #### [facility] [address] [place], [place] [address] ALBUMIN/CREAT RATIO Collected: 04/19/2017 Status: F Source: [place] 7:35 AM [facility] REPOSITORY TYPE CODE TESTS RESULT OUT OF REFERENCE UNITS RANGE LAB UCRR 20-300 mg/dL Creatinine,Ur 70.4 ine,Ran LAB UALBR 0.0-23.0 mg/L High Albumin Urine 463.2 Random LAB UALBCR 0-30 mg/g High Albumin/Creat 658 Ratio Result Comment: 30 to 300 mg/g indicates an increased risk for diabetic nephropathy. Greater than 300 mg/g is consistent with clinical nephropathy. (Am J Kidney Disease 1995, 25:107) Performed By: #### UACR #### [facility] [address] [id number] PROGRESS Observed: 04/18/2017 Status: COMPLETED Source: [place] 3:18 PM [facility] REPOSITORY HNO ID: [id number] Author: aPt Fishman Service: (none) Author Type: Nurse Practitioner Type: Progress Notes Filed: 04/18/2017 3:52 PM Note Text: Reason for Consultation: DM Type 2 Referring Physician: Clarke Lao, SUPPLY CHAIN INTERN [address] [facility] [address] HISTORY OF PRESENT ILLNESS Mr. Ramsay is a 56 year old male presenting here today for a follow up of DM Type 2. He was initially diagnosed with diabetes 2004. LV 01/06/2017 A1C today is 6.8 fhx diabetes in mom and paternal grandfather. He is under the care of nephrology, Dr. Markham. Following with cardiology as well--Dr. Avila. ? Known complications include: hypertension, hyperlipidemia, nephropathy and peripheral neuropathy ? Exacerbating factors include: obesity ? Current diabetes regimen is as follows: ? Glipizide 5mg dinner ? Humulin N 8 units HS *hx of metformin use discontinued due to poor renal function. Stopped glimepiride after a hospitalization in 2017 Tried trulicity but had GI symptoms he is checking his blood glucose 0-3 times daily. he does bring a log book today for review. ? LDE Blood Sugar Frequency: ? FBS 132, 113, 149, 114, 124 ? acL 93, 97, 107 ? acS 136, 133, 161, 137 ? Hypoglycemia frequency: denies ? Hypoglycemia awareness: Yes Regarding symptoms of hypoglycemia, he is is not experiencing any symptoms such as polyuria, polydipsia, nocturia or rapid weight loss or blurry vision, Overall, the patient has no acute complaints at this time. PAST MEDICAL HISTORY Diagnosis Date - Anemia - Atrial fibrillation ([facility]) coumadin managed by cardiology - Cellulitis and abscess of leg, except foot 10/20/2004 - CHF (congestive heart failure) ([facility]) - Depressive disorder, not elsewhere classified 10/20/2004 - Diabetes ([facility]) 10/20/2004 Type 2; retinopathy, neuropathy, CKD - DVT (deep venous thrombosis) ([facility]) - GERD (gastroesophageal reflux disease) - Mixed hyperlipidemia 03/28/2008 - Morbidly obese ([facility]) - Obesity, unspecified 10/20/2004 - Panic disorder with agoraphobia - Proteinuria 10/20/2004 - Unspecified venous (peripheral) insufficiency left leg; related to superficial venous thrombosis from complications from having to have blood transfusion when baby PAST SURGICAL HISTORY Procedure Laterality Date - COLONOSCOP W/ OR W/O BRSH SPEC 08/28/2012 Colonoscopy - EGD W/O OR W/BRUSH/WASH 02/24/2016 EGD mac - PAST SURGICAL HISTORY OF Left 1991 removal of blood clot left leg; superficial - REMOVAL OF TONSILS,<12 Y/O Tonsillectomy - REVISE MEDIAN N/CARPAL TUNNEL SURG Bilateral Carpal tunnel decomp FAMILY HISTORY Problem Relation Age of Onset - Heart Mother - Diabetes Mother - black lung [OTHER] Father - Diabetes Paternal Grandfather Social History Marital status: Spouse name: Years of education: Number of children: 0 Social History Main Topics Smoking status: Former Smoker Packs/day: 1.00 Years: 22.00 Types: Cigarettes, Pipe, Cigars Quit date: 09/26/2002 Smokeless status: Former User Types: Chew Quit date: 02/20/2003 Comment: only chewed brief period Alcohol use: No Comment: Rare Drug use: No Sexual activity: Not Currently Allergies As of Date: 04/18/2017 Allergen Noted Reaction CEPHALEXIN 10/20/2004 Rash and Swelling PENICILLINS 10/20/2004 Unknown Fully Assessed 04/18/2017 Current Outpatient Prescriptions: venlafaxine XR (EFFEXOR XR) 150 mg 24 hr capsule TAKE 1 CAPSULE DAILY Disp: 90 capsule Rfl: 2 pravastatin (PRAVACHOL) 80 mg tablet TAKE 1 TABLET DAILY Disp: 90 tablet Rfl: 3 busPIRone (BUSPAR) 10 mg tablet Take 1 tablet by mouth twice daily. Disp: 180 tablet Rfl: 3 glipiZIDE (GLUCOTROL) 5 mg tablet One tab daily at dinner Disp: 90 tablet Rfl: 3 Insulin NPH human (HUMULIN N KWIKPEN) 100 unit/mL (3 mL) inpn injection pen Inject 8 Units subcutaneously daily at bedtime. Disp: 15 mL Rfl: 3 Insulin [place], Disposable, (BD ULTRAFINE III MINI PEN) 31 gauge x 3/16 ndle USE WITH INSULIN PENS 1 TIMES DAILY Disp: 100 Each Rfl: 3 furosemide (LASIX) 40 mg tablet Take 1 tablet by mouth once daily. Disp: 90 tablet Rfl: 3 NIFEdipine XL (AFEDITAB CR) 30 mg 24 hr tablet Take 1 tablet by mouth once daily. Disp: 90 tablet Rfl: 5 warfarin (COUMADIN) 5 mg tablet TAKE 2 TABLETS DAILY Disp: 180 tablet Rfl: 2 warfarin (COUMADIN) 1 mg tablet TAKE 3 TABLETS DAILY Disp: 270 tablet Rfl: 2 gabapentin (NEURONTIN) 300 mg capsule TAKE 2 CAPSULES IN THE MORNING AND 2 CAPSULES AT BEDTIME DIRECTED Disp: 360 capsule Rfl: 1 carvedilol (COREG) 12.5 mg tablet Take 1 tablet by mouth twice daily. Disp: 180 tablet Rfl: 3 carvedilol (COREG) 25 mg tablet Take 1 tablet by mouth twice daily. Disp: 90 tablet Rfl: 3 dicyclomine (BENTYL) 20 mg tablet Take 1 tablet by mouth three times daily before meals. Disp: 270 tablet Rfl: 3 ranitidine (ZANTAC) 150 mg tablet Take 1 tablet by mouth twice daily. Disp: 180 tablet Rfl: 3 Psyllium Seed-Sucrose (METAMUCIL, SUGAR,) powd Take 1 Tablespoonful by mouth as needed. Disp: Rfl: 0 Cholecalciferol, Vitamin D3, 5,000 unit tab Take 1 tablet by mouth once daily. Disp: Rfl: 0 CALCIUM CARBONATE/VITAMIN D3 (VITAMIN D-3 ORAL) Take 1 tablet by mouth once daily. Disp: Rfl: warfarin (COUMADIN) 5 mg tablet Alternating 12 mg every other day with 13 mg every other day (Uses weekly box that fills every week) Disp: Rfl: MULTIVITAMIN ORAL TAB Take one(1) tablet daily. Disp: Rfl: 0 No current facility-administered medications for this visit. REVIEW OF SYSTEMS General: no fever and no chills Skin: no rashes, pruritis or dry skin Cardiac: denies chest pain, heart palpitations or orthopnea Pulmonary: denies wheezing, productive cough or exertional dyspnea PHYSICAL EXAMINATION BP 160/80 Pulse 46 Wt 151.4 kg (333 lb 12.8 oz) BMI 50.75 kg/m2 General: Well appearing, alert, in no acute distress, well- hydrated, well nourished., Morbidly obese Skin: skin color, texture, turgor normal, no rashes or lesions. Heart: RRR without murmur, gallop, or rubs. No ectopy Pulmonary: Lungs clear to auscultation. No wheezing, rhonchi, rales Extremities: no edema, no calluses or ulcers present. DATA Creatinine Date Value Ref Range Status 01/28/2017 2.80 (H) 0.73 - 1.22 mg/dL Final Hemoglobin A1C (%) Date Value 11/05/2016 8.1 Hemoglobin A1C (POCT) (%) Date Value 04/18/2017 6.8 ) No components found for: URINEALBUMIN Cholesterol, Total (mg/dL) Date Value 10/19/2016 171 HDL Cholesterol (mg/dL) Date Value 10/19/2016 31 LDL Cholesterol (mg/dL) Date Value 10/19/2016 105 Triglyceride (mg/dL) Date Value 10/19/2016 174 IMPRESSION: Mr. Ramsay is a 56 year old male here for evaluation of DM Type 2 complicated by hypertension, hyperlipidemia, nephropathy and peripheral neuropathy, morbid obesity RECOMMENDATIONS: (E11.42, Z79.4) Controlled type 2 diabetes mellitus with diabetic polyneuropathy, with long-term current use of insulin ([facility]) (primary encounter diagnosis) Comment: Glycemic control has improved. Continue the present regimen. Plan: HEMOGLOBIN A1C (POC), COMP METABOLIC PANEL, LIPID PANEL BASIC, ALBUMIN/CREAT RATIO RND UR, TSH BLD, COMP METABOLIC PANEL, LIPID PANEL BASIC, HGB A1C Continue glipizide at dinner and NPH at bedtime. Have labs done this week fasting. Follow up in 4 months with BRYCE Fishman. Please repeat labs again prior. (E11.22, N18.4, Z79.4) Controlled type 2 diabetes mellitus with stage 4 chronic kidney disease, with long-term current use of insulin ([facility]) Comment: Glycemic control has improved. Plan: HEMOGLOBIN A1C (POC), COMP METABOLIC PANEL, LIPID PANEL BASIC, ALBUMIN/CREAT RATIO RND UR, TSH BLD, COMP METABOLIC PANEL, LIPID PANEL BASIC, HGB A1C See above (E11.3299) Type 2 diabetes, controlled, with nonproliferative diabetic retinopathy without macular edema (HCC) Comment: Glycemic control has improved. 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 He is to check at home and if he is persistantly elevated call cardiology/nephrology Plan: Managed per cardiology/nephrology (N18.4) Chronic kidney disease, stage 4, severely decreased GFR ([facility]) Comment: creatinine 2.8/ GFR 24 Plan: Managed per nephrology (E78.2) Mixed hyperlipidemia Comment: He is taking pravastatin Plan: Lipid panel with next labs (Z68.43) BMI 50.0-59.9, adult ([facility]) Comment: BMI 50.75 Plan: Encourage increased dietary and exercise efforts (E66.01) Morbid obesity ([facility]) Comment: BMI 50.75 Plan: Encourage increased dietary and exercise efforts. Pat Fishman, BRYCE-C Endocrinology [facility] [address] [facility] [address] [place] [address] PROTIME Collected: 04/10/2017 Status: F Source: [place] 3:35 PM [facility] REPOSITORY TYPE CODE TESTS RESULT OUT OF RANGE REFERENCE UNITS LAB PSEC 9.7-13.0 sec High PT Sec 19.9 LAB INR 0.9-1.3 High PT INR 2.0 Result Comment: Vitamin K Antagonist (VKA) Therapeutic Range: INR 2 to 3 (Target INR of 2.5) Note: For patients treated with VKA drugs, such as warfarin, the [place] [employer] 2012 Guideline recommends a therapeutic INR range of 2 to 3 (target INR of 2.5). This recommendation includes high-risk patients with antiphospholipid syndrome with previous arterial or venous thromboembolism, current-generation mechanical or bioprosthetic aortic heart valve replacement. Note: Patients with mechanical aortic valve replacement and additional risk factors for thromboembolic events (atrial fibrillation, previous thromboembolism, LV dysfunction, hypercoagulable conditions) or an older generation mechanical AVR (i.e., ball in-Cage) or any mechanical MVR should have a INR therapeutic range of 2.5 to 3.5 (target INR of 3). Fabi DENSON, et al. Chest 2012, 141:7S-47S Los RA, et al. [facility] 2017, 70: 252-289 Performed By: #### PT #### [facility] [address] [address] ALLERGIES ALLERGIES DATE TYPE / CODE NAME / CODE REACTION SEVERITY SOURCE 12/02/2016 Drug Penicillins/[id number] Hives Unknown [place] Allergy/416 0476(RXNORM) Community 158057([facility] ED CT) Repository 12/02/2016 Drug cephalexin/[id number] Hives Unknown [place] Allergy/416 716(RXNORM) Community 333910([facility] ED CT) Repository 10/20/2004 DRUG CEPHALEXIN RASH [facility] INGREDI/419 [place] 237399(SNOM Repository ED CT) 10/20/2004 Drug PENICILLINS UNKNOWN [facility] Class/70956 [place] 1003(SNOMED Repository CT) 10/20/2004 DRUG CEPHALEXIN RASH [facility] INGREDI/419 [place] 967207(SNOM Repository ED CT) 10/20/2004 Drug PENICILLINS UNKNOWN [facility] Class/56474 [place] 1003(SNOMED Repository CT) NG/[id number] CEPHALEXIN [facility] 6(SNOMED Health System CT) Repository NG/[id number] PENICILLINS [facility] 6(SNOMED Health System CT) Repository ENCOUNTERS ENCOUNTERS ADMIT/DISCHARGE ACCOUNT NUMBER ADMITTING ENCOUNTER LOCATION SOURCE CLASS 03/06/2018/03/06/19 [id number] Ambulatory [address] [place] Repository 02/27/2018/02/27/19 [id number] Ambulatory [address] [place] Repository 02/22/2018/02/22/19 [id number] Ambulatory [address] [place] Repository 02/22/2018/02/26/19 [id number] Ambulatory [address] [place] Repository 02/02/2018 [id number] [facility] ding:MRI Repository 01/26/2018/02/17/20 [id number] Ambulatory [address] [place] Repository 01/25/2018/01/27/20 [id number] Ambulatory [address] [place] Repository 12/28/2017/12/30/19 [id number] Ambulatory [address] [place] Repository 12/28/2017 [id number] Ambulatory [facility] 12/26/2017/12/27/19 [id number] Ambulatory [address] [place] Repository 12/25/2017/12/26/19 [id number] Ambulatory [address] [place] Repository 12/08/2017/12/09/19 [id number] Ambulatory [address] [place] Repository 11/28/2017/11/29/19 [id number] Ambulatory [address] [place] Repository 09/30/2017 [id number] Ambulatory [facility] ding:WC Repository 09/11/2017/09/12/19 [id number] Ambulatory [address] Repository 08/30/2017/09/20/19 [id number] Ambulatory [address] ding:WC Repository 08/25/2017 [id number] Inpatient [facility] [place] Repository ng:H.SD 08/18/2017/08/22/19 [id number] Ambulatory [address] [place] Repository 08/16/2017/08/20/19 [id number] Ambulatory [place] [facility] ding:WC Repository 08/16/2017/08/17/19 [id number] Ambulatory [address] [place] Repository 08/01/2017 [id number] [facility] Rep[facility] 07/25/2017/08/05/19 [id number] Ambulatory [address] [place] Repository 07/19/2017/07/21/19 [id number] Ambulatory [place] [address] [place] [address] ding:WC Repository 06/27/2017/06/28/19 [id number] Ambulatory [address] Repository 06/27/2017/06/28/19 [id number] Ambulatory [address] Other [place] [facility] 06/27/2017/06/28/19 [id number] Ambulatory [address] MEDICAL Repository CENTERBuildi ng:CAGWS 06/16/2017/06/20/19 [id number] Ambulatory [place] [address] [place] [address] ding:[facility] Repository 06/05/2017/06/06/19 [id number] Ambulatory [address] Main [place] [facility] 04/19/2017/04/19/19 [id number] Ambulatory [address] [place] [facility] 04/18/2017/04/18/19 [id number] Ambulatory [address] [place] [facility] 04/10/2017/04/10/19 [id number] Ambulatory [address] [place] [facility] PAYERS PAYERS ENCOUNTER GUARANTOR PAYER SUBSCRIBER SOURCE 02/02/2018 MAREK Lucy SPIVEYE Primary MAREK Lucy DEVENDRA [place] [id number] [place] [facility]: [facility] Number: [id number] [id number] Repository [address]Gmj: 330) Date:2075-28-73[phone] () [id number], [place] [address]VC: 02/02/2018 Secondary NOT GIVENUNK [place] Insurance:SELF PAY [facility] Number: Effective Repository Date:2018-01-19 12/28/2017 MAREK D Primary MAREK D [facility]: Insurance:ADRIENNE TAFOYA: [facility]: [id number] Repository [place] DRNESTOR [id number] [place], [place] Date: [address]Kjg: (HP) 09/30/2017 MAREK D DEVENDRA Primary MAREK D DEVENDRA [place] [id number] [place] Insurance:CIGNAPolicy IIDOB: Community DRLOT Number: [id number] [facility] [place] [id number] Repository [address]Ghp: (330) Date:8312-68-20[phone] () [id number], [place] [address]XC: 09/30/2017 Secondary NOT GIVENUNK [place] Insurance:SELF PAY [facility] Number: Effective Repository Date:2017-09-20 08/30/2017 MAREK D DEVENDRA Primary MAREK D DEVENDRA [place] [id number] [place] Insurance:CIGNAPolicy IIDOB: [facility] DRLOT Number: [id number] [facility] [place] [id number] Repository [address]Jgp: (330) Date:1252-66-66[phone] () 200431GKULHATTZXD, [place] [address]UJ: 08/30/2017 Secondary NOT GIVENUNK [place] Insurance:SELF PAY [facility] Number: Effective Repository Date:2017-08-20 08/25/2017 MAREK [id number] [facility] [place] BAEZ Insurance:[facility] Repository [address]Qwj: (330) Number: [phone] () [id number] Date:2012-02-21[address]DMLHUOOWJVR, [place] [address]RC: 08/16/2017 MAREK D DEVENDRA Primary MAREK D DEVENDRA [place] [id number] [place] Insurance:CIGNAPolicy IIDOB: Community DRLOT Number: [id number] [facility] [place] [id number] Repository [address]Ovk: (330) Date:0899-38-73[phone] (HP) 812040KXXTGYZBDLE, [place] [address]CG: 08/16/2017 Secondary NOT GIVENUNK [place] Insurance:SELF PAY [facility] Number: Effective Repository Date:2017-07-21 08/01/2017 MAREK D DEVENDRA Primary MAREK D DEVENDRA [place] [id number] [place] Insurance:CIGNAPolicy IIDOB: Community DRLOT Number: [id number] [facility] [place] [id number] Repository [address]Vev: (330) Date:4030-91-84[phone] (HP) [address]52142MFAYYONDKUP, [place] [address]BQ: 08/01/2017 Secondary NOT GIVENUNK [place] Insurance:SELF PAY [facility] Number: Effective Repository Date:2017-07-20 07/19/2017 MAREK D DEVENDRA Primary MAREK D DEVENDRA [place] [id number] [place] Insurance:CIGNAPolicy IIDOB: Community DRLOT Number: [id number] [facility] [place] [id number] Repository [address]Bkh: (330) Date:0235-44-63WW [phone] (HP) 341991TCWLCKWEFEV, [place] [address]IP: 07/19/2017 Secondary NOT GIVENUNK [place] Insurance:SELF PAY [facility] Number: Effective Repository Date:2017-06-20 06/27/2017 MAREK D Primary MAREK D Dottie SPIVEYEDOB: Insurance:CIGNA ALLYSSAEDOB: Health System OAPPolicy Number: [id number] Repository [place] DRLOT [id number] [place], [place] Date: [address]Bgy: (HP) 06/16/2017 MAREK D DEVENDRA Primary MAREK D DEVENDRA [place] [id number] [place] [facility] Number: [id number] [facility] [place], [place] [id number] Repository [address]Kip: (330) Date:1335-52-77VG [phone] () [id number], [place] [address]AL: 06/16/2017 Secondary NOT GIVENUNK [place] Insurance:SELF PAY [facility] Number: Effective Repository Date:2017-05-31
== END ==
PROVIDERS: Family Provider Internal Medicine; PCP Internal Medicine; Referring Provider Podiatrist; Visit Provider Podiatrist
DX: M72.2 Plantar fascial fibromatosis (principal)
CPT/HCPCS: 73718

== ENCOUNTER 2019-02-06 13:45 | Outpatient (RCR) | payer SELFPAY ==
[2019-01-30 13:05] VITALS: BP 148/91; PULSE 97; RESP 16; TEMP 36.6; BMI 48.6
--- NOTE | 2019-01-30 13:21 | WC ---
PT STATES HE WILL BRING A MED LIST NEXT VISIT. HE CAN'T REMEMBER HIS MEDICATIONS, BUT KNOWS HE IS ON INSULIN AND WARFARIN.
--- NOTE | 2019-01-30 14:35 | PCM.WC.PN ---
(1) Chronic 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 Status: Resolved Current Visit: Yes Code(s): L97.522 - Non-pressure chronic ulcer of other part of 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 (2) Equinus contracture of left ankle Status: Chronic Current Visit: Yes Code(s): M24.572 - Contracture, left ankle (3) Edema of left lower leg due to peripheral venous insufficiency Status: Chronic Current Visit: Yes Code(s): I87.2 - Venous insufficiency (chronic) (peripheral); R60.9 - Edema, unspecified (4) Type 2 diabetes mellitus with diabetic polyneuropathy Status: Chronic Current Visit: Yes Code(s): E11.42 - Type 2 diabetes mellitus with diabetic polyneuropathy Type of Wound Date of Service: 01/30/19 Chief Complaint: Left foot ulcer healed History of Wound: This 57-year-old male with multiple comorbidities presents to the wound healing center for a new ulcer to the left forefoot with an onset of 1/2 weeks ago. He reports he recently retired and has been very active. He reports drainage and denies odor or redness. He is previously known to me at the wound healing center and he had vascular surgery intervention performed previously. He denies redness or odor. He denies drainage and thinks the wound is healed. He brought the cam walker. Progress of Wound: stable (new) - Physical Exam Vital Signs Temp Pulse Resp BP 98 F 97 16 148/91 H 01/30/19 13:05 01/30/19 13:05 01/30/19 13:05 01/30/19 13:05 General: Alert, Oriented x3, Cooperative, No apparent distress Extremities: No cyanosis, No Calf Tenderness, Diminished Peripheral Pulses, Edema Skin: Ulcer/ Wound - No purulence, erythema, string, odor, infection. The ulcer bed is granular and there is a peripheral callus noted. His peripheral skin is hairless and atrophic. There is no maceration or deep tissue exposure Wound Measurements and Assessment WC - Nurse 1 - General Ulcer Measurement Start: 01/30/19 13:02 Freq: Status: Active Protocol: Activity Type Activity Date Activity User E-Sign Co-Sign Detail Recorded Client Recorded Date Recorded By Document 01/30/19 13:05 [facility] [id number] 01/30/19 13:20 BM 01/30/19 13:05 Wound Center Nurse 1 [Ulcer Assessment] #3- L PLANTAR -Combined with other wound No -Current Size (cm) - Length 0.4 -Current Size (cm) - Width 0.2 -Current Size (cm) - Depth 0.4 -Total Square Cm 0.08 -Date of Last Picture (Recall this 01/30/19 field) -Photo Taken Yes -Epithelialization None Present -Tunneling No -Undermining/Tunneling No -Circular Undermining No -Exudate Amt Small -Exudate Type Serosanguineous -Wound Margin Thickened -Granulation Amt Small (1-33%) -Granulation Quality Pale,Red -Slough/Fibrin Yes -Necrosis Amt Large (67-100%) -Necrotic Tissue Type Adherent Slough -Texture (Fiona-wound Skin Appearance) Assessed,Callus -Moisture (Fiona-wound Skin Appearance Assessed,Dry/ ) Scaly -Color (Fiona-wound Skin Appearance) Assessed -Temperature (Fiona-wound Skin No Abnormality Appearance) (Pt Warm) -Tenderness on Palpation (Fiona-wound No Skin Appearance) -Ulcer Cleansing Rinsed/ Irrigated with Saline -Foul Odor after Cleansing No -Anesthetic Used 5% Lidocaine Gel [Edema Assessment] -Lower Limb Edema Present Yes -Right Calf (cm) 42 -Right Ankle (cm) 22.5 -Left Calf (cm) 42.5 -Left Ankle (cm) 23.4 WC - Nurse 2 - General Ulcer CM Notes Start: 01/30/19 13:02 Freq: Status: Active Protocol: Activity Type Activity Date Activity User E-Sign Co-Sign Detail Recorded Client Recorded Date Recorded By Document 01/30/19 13:52 JF [id number] 01/30/19 13:55 01/30/19 13:52 Wound Center Nurse 2 [Procedure/Treatment] #3- L PLANTAR -Time 13:53 -Correct Patient Yes -Correct Side, Site, Position Yes -Correct Procedure Yes -Procedure Performed Yes -Type of Procedure Debridement -Clinical Debridement Subcutaneous -Post Debridement Size (cm) - Length 1.1 -Post Debridement Size (cm) - Width 0.7 -Post Debridement Size (cm) - Depth 0.4 -Total Square Cm 0.77 -Wound/Ulcer Outcome Not Healed -Ulcer Cleansing Rinsed/ Irrigated with Saline -Foul Odor after Cleansing No -Bioengineered Tissue No -Bleeding Controlled with Pressure -Offloading Yes -Type of Offloading Camwalker -Treatment Response Procedure Tolerated Well [See Physician Procedure note for Specifics] Pain Scale: 0-10 Numeric [Pain] -Is Patient Pain Free? Yes Musculoskeletal: No Tenderness to Palpation of Joints or Extremities, Muscle Wasting, - - Dorsal contraction of lesser toes with prominent metatarsal heads Neurological: - - Lack of epicritic sensation light touch consistent with neuropathy status Psych/Mental Status: Normal Affect, Appropriate Debridement Note Post-Debridement Measurements/Treatment WC - Nurse 2 - General Ulcer CM Notes Start: 01/30/19 13:02 Freq: Status: Active Protocol: Activity Type Activity Date Activity User E-Sign Co-Sign Detail Recorded Client Recorded Date Recorded By Document 01/30/19 13:52 REID [id number] 01/30/19 13:55 REID 01/30/19 13:52 Wound Center Nurse 2 #3- L PLANTAR -Time 13:53 -Correct Patient Yes -Correct Side, Site, Position Yes -Correct Procedure Yes -Procedure Performed Yes -Type of Procedure Debridement -Clinical Debridement Subcutaneous -Post Debridement Size (cm) - Length 1.1 -Post Debridement Size (cm) - Width 0.7 -Post Debridement Size (cm) - Depth 0.4 -Total Square Cm 0.77 -Wound/Ulcer Outcome Not Healed -Ulcer Cleansing Rinsed/ Irrigated with Saline -Foul Odor after Cleansing No -Bioengineered Tissue No -Bleeding Controlled with Pressure -Offloading Yes -Type of Offloading Camwalker -Treatment Response Procedure Tolerated Well Pain Scale: 0-10 Numeric Is Patient Pain Free? Yes Wound debrided: Sub-third metatarsal head Laterality: Left Wound Grade/Stage: grade 1 Type of Debridement: Excisional debridement Anesthesia Used: 5% Lidocaine Gel Depth: in the subcutaneous layer Percentage of wound debrided: 100 Instrument Used: #15 blade Tissue Removed: fibrous, devitalized subcutaneous, biofilm, slough Severity: Fat Layer Exposed Amount of bleeding with debridement: Mild Bleeding Controlled with: Pressure Patient tolerated procedure well Assessment/Plan Active Problems Equinus contracture of left ankle (Chronic) Edema of left lower leg due to peripheral venous insufficiency (Chronic) Type 2 diabetes mellitus with diabetic polyneuropathy (Chronic) Assessment: Type 2 diabetes, uncontrolled with neuropathy, venous insufficiency, ulcer of left plantar foot healed today, obesity, peripheral vascular disease Plan: I discussed his ongoing treatment recommendations. Excisional subcutaneous debridement was performed as noted in the clinical panel. He was reassured no local signs of infection are noted today. To resume offloading the new ulcer site with a non pneumatic cam walker with dual density offloading pocket. This was evaluated today and adjusted; a pocket hole was cut out to take pressure off of the ulcer site. She changes daily with hydrogel with collagen and overlying gauze. To resume nutritional supplementation. His updated noninvasive vascular studies were reviewed as abnormal to the left lower extremity with an TRISH of approximately 0.5. I also ordered venous reflux studies to rule out venous insufficiency which confirmed abnoralities to the left lower extremity veins. He completed intervention with Dr. Shannon previously in August 2017. He understands he is at risk for delayed healing and limb loss. I answered all his questions. To return to the wound healing center 1 to 2 weeks or call sooner if he has any questions or concerns. Pending progress response a prescription nutritional supplementation, updated radiographs and updated diagnostic data labs will be considered. He is reassured no local signs of infection are noted.
[2019-02-06 13:37] VITALS: BP 162/79; PULSE 90; RESP 18; BMI 48.6
--- NOTE | 2019-02-06 14:22 | PN.PCM_ITS ---
(1) Chronic 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 Status: Chronic Code(s): L97.522 - Non-pressure chronic ulcer of other part of 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 (2) Equinus contracture of left ankle Status: Chronic Code(s): M24.572 - Contracture, left ankle (3) Edema of left lower leg due to peripheral venous insufficiency Status: Chronic Code(s): I87.2 - Venous insufficiency (chronic) (peripheral); R60.9 - Edema, unspecified (4) Type 2 diabetes mellitus with diabetic polyneuropathy Status: Chronic Code(s): E11.42 - Type 2 diabetes mellitus with diabetic polyneuropathy Type of Wound Date of Service: 02/06/19 Chief Complaint: Left foot ulcer returned History of Wound: This 58-year-old male with multiple comorbidities presents to the wound healing center for a new ulcer to the left forefoot. He reports he r ecently retired and has been very active. He reports drainage and denies odor or redness. He is previously known to me at the wound healing center and he had vascular surgery intervention performed previously. He denies redness or odor. He denies drainage and thinks the wound is healed. He brought the cam walker. Progress of Wound: stable - Physical Exam Vital Signs Temp Pulse Resp BP 98 F 90 18 162/79 H 01/30/19 13:05 02/06/19 13:37 02/06/19 13:37 02/06/19 13:37 General: Alert, Oriented x3, Cooperative, No apparent distress Extremities: No cyanosis, Capillary Refill Less than 3 Seconds, No Calf Tenderness, Diminished Peripheral Pulses, Edema Skin: Ulcer/ Wound - No purulence, erythema, streaking, odor, infection. No deep tissue exposure noted Wound Measurements and Assessment WC - Nurse 1 - General Ulcer Measurement Start: 01/30/19 13:02 Freq: Status: Active Protocol: Activity Type Activity Date Activity User E-Sign Co-Sign Detail Recorded Client Recorded Date Recorded By Document 02/06/19 13:37 BS [id number] 02/06/19 13:43 BS 02/06/19 13:37 Wound Center Nurse 1 [Ulcer Assessment] #3- L PLANTAR -Combined with other wound No -Current Size (cm) - Length 0.4 -Current Size (cm) - Width 0.4 -Current Size (cm) - Depth 0.4 -Total Square Cm 0.16 -Photo Taken No -Moisture (Fiona-wound Skin Appearance Assessed, ) Maceration,Dry/ Scaly -Temperature (Fiona-wound Skin No Abnormality Appearance) (Pt Warm) -Tenderness on Palpation (Fiona-wound No Skin Appearance) -Ulcer Cleansing Rinsed/ Irrigated with Saline -Foul Odor after Cleansing No -Anesthetic Used 4% Lidocaine Solution Musculoskeletal: No Tenderness to Palpation of Joints or Extremities, Tenderness, - - Dorsal contracture lesser toes and prominent metatarsal head Neurological: - - Lack of epicritic sensation light touch is consistent with neuropathy status Psych/Mental Status: Normal Affect, Appropriate Debridement Note Post-Debridement Measurements/Treatment WC - Nurse 2 - General Ulcer CM Notes Start: 01/30/19 13:02 Freq: Status: Active Protocol: Activity Type Activity Date Activity User E-Sign Co-Sign Detail Recorded Client Recorded Date Recorded By Document 01/30/19 13:52 REID [id number] 01/30/19 13:55 REID 01/30/19 13:52 Wound Center Nurse 2 #3- L PLANTAR -Time 13:53 -Correct Patient Yes -Correct Side, Site, Position Yes -Correct Procedure Yes -Procedure Performed Yes -Type of Procedure Debridement -Clinical Debridement Subcutaneous -Post Debridement Size (cm) - Length 1.1 -Post Debridement Size (cm) - Width 0.7 -Post Debridement Size (cm) - Depth 0.4 -Total Square Cm 0.77 -Wound/Ulcer Outcome Not Healed -Ulcer Cleansing Rinsed/ Irrigated with Saline -Foul Odor after Cleansing No -Bioengineered Tissue No -Bleeding Controlled with Pressure -Offloading Yes -Type of Offloading Camwalker -Treatment Response Procedure Tolerated Well Pain Scale: 0-10 Numeric Is Patient Pain Free? Yes Wound debrided: plantar metatarsal head Laterality: Left Wound Grade/Stage: grade 1 Type of Debridement: Excisional debridement Anesthesia Used: 5% Lidocaine Gel Depth: in the subcutaneous layer Percentage of wound debrided: 100 Instrument Used: #15 blade Tissue Removed: fibrous, devitalized subcutaneous, biofilm, slough Severity: Fat Layer Exposed Amount of bleeding with debridement: Mild Bleeding Controlled with: Pressure Patient tolerated procedure well Assessment/Plan Assessment: Type 2 diabetes, uncontrolled with neuropathy, venous insufficiency, ulcer of left plantar foot stable, obesity, peripheral vascular disease Plan: I discussed his ongoing treatment recommendations. Excisional subcutaneous debridement was performed as noted in the clinical panel. He was r eassured no local signs of infection are noted today. To continue offloading the new ulcer site with a non pneumatic cam walker with dual density offloading pocket. This was evaluated today and adjusted; a pocket hole was cut out to take pressure off of the ulcer site. She changes daily with hydrogel with collagen and overlying gauze. To resume nutritional supplementation. His updated noninvasive vascular studies were reviewed as abnormal to the left lower extremity with an TRISH of approximately 0.5. I also ordered venous reflux studies to rule out venous insufficiency which confirmed abnoralities to the left lower extremity veins. He completed intervention with Dr. Shannon previously in August 2017. He understands he is at risk for delayed healing and limb loss. I answered all his questions. To return to the wound healing center 1 to 2 weeks or call sooner if he has any questions or concerns. Pending progress response a prescription nutritional supplementation, updated ra diographs and updated diagnostic data labs will be considered. He is reassured no local signs of infection are noted.
== END 2019-02-19 23:59 ==
LOC: WC 13:45
PROVIDERS: Family Provider Internal Medicine; PCP Internal Medicine; Visit Provider Podiatrist
DX: E11.621 Type 2 diabetes mellitus with foot ulcer (principal); M24.572 Contracture, left ankle; E11.42 Type 2 diabetes mellitus with diabetic polyneuropathy; I87.2 Venous insufficiency (chronic) (peripheral); R60.0 Localized edema; L97.522 Non-pressure chronic ulcer of other part of 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; E11.51 Type 2 diabetes mellitus with diabetic peripheral angiopathy without gangrene; E11.65 Type 2 diabetes mellitus with hyperglycemia; E66.9 Obesity, unspecified; Z68.42 Body mass index [BMI] 45.0-49.9, adult; Z71.3 Dietary counseling and surveillance
CPT/HCPCS: 11042; 99213; G0463

== ENCOUNTER 2019-03-20 14:00 | Outpatient (RCR) | payer BC, SELFPAY ==
[2019-02-20 01:05] VITALS: BP 162/79; PULSE 90; RESP 18; TEMP 36.6
[2019-02-22 14:22] VITALS: BP 146/72; PULSE 91; RESP 18; TEMP 36.8; BMI 48.6
--- NOTE | 2019-02-22 15:31 | PN.PCM_ITS ---
(1) Chronic 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 Status: Chronic Current Visit: Yes Code(s): L97.522 - Non-pressure chronic ulcer of other part of 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 (2) Edema of left lower leg due to peripheral venous insufficiency Status: Chronic Current Visit: Yes Code(s): I87.2 - Venous insufficiency (chronic) (peripheral); R60.9 - Edema, unspecified (3) Type 2 diabetes mellitus with diabetic polyneuropathy Status: Chronic Current Visit: Yes Code(s): E11.42 - Type 2 diabetes mellitus with diabetic polyneuropathy Type of Wound Date of Service: 02/22/19 Chief Complaint: Left foot ulcer returned History of Wound: This 58-year-old male with multiple comorbidities presents to the wound healing center for an ulcer to the left forefoot. He reports he recently retired and has been very active. He reports drainage and denies odor or redness. He is previously known to me at the wound healing center and he had vascular surgery intervention performed previously. He denies redness or odor. He denies drainage and thinks the wound is healed. He brought the cam walker. Progress of Wound: stable - Physical Exam Vital Signs Temp Pulse Resp BP 98.2 F 91 18 146/72 H 02/22/19 14:22 02/22/19 14:22 02/22/19 14:22 02/22/19 14:22 General: Alert, Oriented x3, Cooperative, No apparent distress Extremities: No edema, Capillary Refill Less than 3 Seconds, No Calf Tenderness, Diminished Peripheral Pulses, Edema Skin: Ulcer/ Wound - No purulence, erythema, streaking, odor, infection. Peripheral skin is hairless and atrophic. Peripheral epithelialization is noted. No deep probing maceration or necrosis Wound Measurements and Assessment WC - Nurse 1 - General Ulcer Measurement Start: 02/22/19 14:22 Freq: Status: Active Protocol: Activity Type Activity Date Activity User E-Sign Co-Sign Detail Recorded Client Recorded Date Recorded By Document 02/22/19 14:22 [facility] [id number] 02/22/19 14:29 [facility] 02/22/19 14:22 Wound Center Nurse 1 [Ulcer Assessment] #3- L PLANTAR -Combined with other wound No -Current Size (cm) - Length 0.6 -Current Size (cm) - Width 0.3 -Current Size (cm) - Depth 0.3 -Total Square Cm 0.18 -Photo Taken No -Epithelialization None Present -Tunneling No -Undermining/Tunneling Yes -Undermining/Tunneling Starts (O' 11 clock) -Undermining/Tunneling Ends (O'clock) 4 -Maximum Distance (cm) 0.2 -Circular Undermining No -Exudate Amt Small -Exudate Type Sanguineous -Wound Margin Distinct, Outline Attached -Granulation Amt Large (67-100%) -Granulation Quality Red -Slough/Fibrin No -Necrosis Amt None Present (0 %) -Texture (Fiona-wound Skin Appearance) Callus,Scarring -Moisture (Fiona-wound Skin Appearance Assessed,Dry/ ) Scaly -Color (Fiona-wound Skin Appearance) Assessed -Temperature (Fiona-wound Skin No Abnormality Appearance) (Pt Warm) -Tenderness on Palpation (Fiona-wound No Skin Appearance) -Ulcer Cleansing Rinsed/ Irrigated with Saline -Foul Odor after Cleansing No -Anesthetic Used 5% Lidocaine Gel WC - Nurse 2 - General Ulcer CM Notes Start: 02/22/19 14:22 Freq: Status: Active Protocol: Activity Type Activity Date Activity User E-Sign Co-Sign Detail Recorded Client Recorded Date Recorded By Document 02/22/19 15:05 JF [id number] 02/22/19 15:07 REID 02/22/19 15:05 Wound Center Nurse 2 [Procedure/Treatment] -Time 15:05 -Correct Patient Yes -Correct Side, Site, Position Yes -Correct Procedure Yes -Procedure Performed Yes -Type of Procedure Debridement -Clinical Debridement Subcutaneous -Post Debridement Size (cm) - Length 0.6 -Post Debridement Size (cm) - Width 0.4 -Post Debridement Size (cm) - Depth 0.3 -Total Square Cm 0.24 -Wound/Ulcer Outcome Not Healed -Ulcer Cleansing Rinsed/ Irrigated with Saline -Foul Odor after Cleansing No -Bioengineered Tissue No -Bleeding Controlled with Pressure -Offloading Yes -Type of Offloading Camwalker -Treatment Response Procedure Tolerated Well [See Physician Procedure note for Specifics] Pain Scale: 0-10 Numeric [Pain] -Is Patient Pain Free? Yes Musculoskeletal: No Tenderness to Palpation of Joints or Extremities, Muscle Wasting, - - Prominent metatarsal and dorsal contracture lesser toes Neurological: - - Lack of epicritic sensation light touch consistent with neuropathy Psych/Mental Status: Normal Affect, Appropriate Debridement Note Post-Debridement Measurements/Treatment WC - Nurse 2 - General Ulcer CM Notes Start: 02/22/19 14:22 Freq: Status: Active Protocol: Activity Type Activity Date Activity User E-Sign Co-Sign Detail Recorded Client Recorded Date Recorded By Document 02/22/19 15:05 JF [id number] 02/22/19 15:07 REID 02/22/19 15:05 Wound Center Nurse 2 #3- L PLANTAR -Time 15:05 -Correct Patient Yes -Correct Side, Site, Position Yes -Correct Procedure Yes -Procedure Performed Yes -Type of Procedure Debridement -Clinical Debridement Subcutaneous -Post Debridement Size (cm) - Length 0.6 -Post Debridement Size (cm) - Width 0.4 -Post Debridement Size (cm) - Depth 0.3 -Total Square Cm 0.24 -Wound/Ulcer Outcome Not Healed -Ulcer Cleansing Rinsed/ Irrigated with Saline -Foul Odor after Cleansing No -Bioengineered Tissue No -Bleeding Controlled with Pressure -Offloading Yes -Type of Offloading Camwalker -Treatment Response Procedure Tolerated Well Pain Scale: 0-10 Numeric Is Patient Pain Free? Yes Wound debrided: plantar foot Laterality: Left Wound Grade/Stage: grade 1 Type of Debridement: Excisional debridement Anesthesia Used: 5% Lidocaine Gel Depth: in the subcutaneous layer Percentage of wound debrided: 100 Instrument Used: #15 blade Tissue Removed: fibrous, devitalized subcutaneous, biofilm, slough Severity: Fat Layer Exposed Amount of bleeding with debridement: Mild Bleeding Controlled with: Pressure Patient tolerated procedure well Assessment/Plan Active Problems Chronic 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 (Chronic) Edema of left lower leg due to peripheral venous insufficiency (Chronic) Type 2 diabetes mellitus with diabetic polyneuropathy (Chronic) Assessment: Type 2 diabetes, uncontrolled with neuropathy, venous insufficiency, ulcer of left plantar foot stable, obesity, peripheral vascular disease Plan: I discussed his ongoing treatment recommendations. Excisional subcutaneous debridement was performed as noted in the clinical panel. He was reassured no local signs of infection are noted today. To continue offloading the new ulcer site with a non pneumatic cam walker with dual density offloading pocket. This was evaluated today and still looks appropriate. He changes daily with hydrogel with collagen and overlying gauze. To resume nutritional supplementation. His updated noninvasive vascular studies were reviewed as abnormal to the left lower extremity with an TRISH of approximately 0.5. I also ordered venous reflux studies to rule out venous insufficiency which confirmed abnoralities to the left lower extremity veins. He completed intervention with Dr. Shannon previously in August 2017. He understands he is at risk for delayed healing and limb loss. I answered all his questions. To return to the wound healing center 1 week or call sooner if he has any questions or concerns. Pending progress response a prescription nutritional supplementation, updated radiographs and updated diagnostic data labs will be considered. He is reassured no local signs of infection are noted.
[2019-02-27 14:20] VITALS: BP 159/83; PULSE 82; RESP 16; TEMP 36.6; BMI 48.6
--- NOTE | 2019-02-27 15:58 | PCM.WC.PN ---
(1) Chronic 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 Status: Chronic Current Visit: Yes Code(s): L97.522 - Non-pressure chronic ulcer of other part of 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 (2) Edema of left lower leg due to peripheral venous insufficiency Status: Chronic Current Visit: Yes Code(s): I87.2 - Venous insufficiency (chronic) (peripheral); R60.9 - Edema, unspecified (3) Type 2 diabetes mellitus with diabetic polyneuropathy Status: Chronic Current Visit: Yes Code(s): E11.42 - Type 2 diabetes mellitus with diabetic polyneuropathy Type of Wound Date of Service: 02/27/19 Chief Complaint: Left foot ulcer returned History of Wound: This 58-year-old male with multiple comorbidities presents to the wound healing center for an ulcer to the left forefoot. He reports he recently retired and has been very active. He reports drainage and denies odor or redness. He is previously known to me at the wound healing center and he had vascular surgery intervention performed previously. He denies redness or odor. He denies drainage and thinks the wound is healed. He brought the cam walker. He relates he stopped scrubbing his ulcer site with a firm brush while showering as I advised him to stop doing so last week. Progress of Wound: Improving - Physical Exam Vital Signs Temp Pulse Resp BP 98 F 82 16 159/83 H 02/27/19 14:20 02/27/19 14:20 02/27/19 14:20 02/27/19 14:20 General: Alert, Oriented x3, Cooperative, No apparent distress Extremities: No cyanosis, Capillary Refill Less than 3 Seconds, No Calf Tenderness, Diminished Peripheral Pulses, Edema Skin: Ulcer/ Wound - No purulence, erythema, streaking, odor, infection. His peripheral skin is hairless and atrophic Wound Measurements and Assessment WC - Nurse 1 - General Ulcer Measurement Start: 02/22/19 14:22 Freq: Status: Active Protocol: Activity Type Activity Date Activity User E-Sign Co-Sign Detail Recorded Client Recorded Date Recorded By Document 02/27/19 14:20 [facility] [id number] 02/27/19 14:27 BMF 02/27/19 14:20 Wound Center Nurse 1 [Ulcer Assessment] #3- L PLANTAR -Combined with other wound No -Current Size (cm) - Length 0.9 -Current Size (cm) - Width 0.3 -Current Size (cm) - Depth 0.4 -Total Square Cm 0.27 -Photo Taken No -Epithelialization Small 1-33% -Tunneling No -Undermining/Tunneling No -Circular Undermining No -Exudate Amt Small -Exudate Type Serous -Wound Margin Thickened -Granulation Amt Large (67-100%) -Granulation Quality Red -Slough/Fibrin Yes -Necrosis Amt Small (1-33%) -Necrotic Tissue Type Adherent Slough -Texture (Fiona-wound Skin Appearance) Assessed,Callus ,Scarring -Moisture (Fiona-wound Skin Appearance Assessed,Dry/ ) Scaly -Color (Fiona-wound Skin Appearance) Assessed -Temperature (Fiona-wound Skin No Abnormality Appearance) (Pt Warm) -Tenderness on Palpation (Fiona-wound No Skin Appearance) -Ulcer Cleansing Rinsed/ Irrigated with Saline -Foul Odor after Cleansing No -Anesthetic Used 4% Lidocaine Solution WC - Nurse 2 - General Ulcer CM Notes Start: 02/22/19 14:22 Freq: Status: Active Protocol: Activity Type Activity Date Activity User E-Sign Co-Sign Detail Recorded Client Recorded Date Recorded By Document 02/27/19 14:47 JF [id number] 02/27/19 14:48 REID 02/27/19 14:47 Wound Center Nurse 2 [Procedure/Treatment] -Time 14:47 -Correct Patient Yes -Correct Side, Site, Position Yes -Correct Procedure Yes -Procedure Performed Yes -Type of Procedure Debridement -Clinical Debridement Subcutaneous -Post Debridement Size (cm) - Length 1 -Post Debridement Size (cm) - Width 0.3 -Post Debridement Size (cm) - Depth 0.4 -Total Square Cm 0.3 -Wound/Ulcer Outcome Not Healed -Ulcer Cleansing Rinsed/ Irrigated with Saline -Foul Odor after Cleansing No -Bioengineered Tissue No -Bleeding Controlled with Pressure -Offloading Yes -Type of Offloading Camwalker -Treatment Response Procedure Tolerated Well [See Physician Procedure note for Specifics] Pain Scale: 0-10 Numeric [Pain] -Is Patient Pain Free? Yes Musculoskeletal: No Tenderness to Palpation of Joints or Extremities, Muscle Wasting, - - Prominent left metatarsal head and dorsal contracture lesser toes Neurological: - - Lack of epicritic sensation light touch is consistent with neuropathy status Psych/Mental Status: Normal Affect, Appropriate Debridement Note Post-Debridement Measurements/Treatment WC - Nurse 2 - General Ulcer CM Notes Start: 02/22/19 14:22 Freq: Status: Active Protocol: Activity Type Activity Date Activity User E-Sign Co-Sign Detail Recorded Client Recorded Date Recorded By Document 02/22/19 15:05 [id number] 02/22/19 15:07 Document 02/27/19 14:47 [id number] 02/27/19 14:48 02/22/19 02/27/19 15:05 14:47 Wound Center Nurse 2 #3- L PLANTAR -Time 15:05 14:47 -Correct Patient Yes Yes -Correct Side, Site, Position Yes Yes -Correct Procedure Yes Yes -Procedure Performed Yes Yes -Type of Procedure Debridement Debridement -Clinical Debridement Subcutaneous Subcutaneous -Post Debridement Size (cm) - Length 0.6 1 -Post Debridement Size (cm) - Width 0.4 0.3 -Post Debridement Size (cm) - Depth 0.3 0.4 -Total Square Cm 0.24 0.3 -Wound/Ulcer Outcome Not Healed Not Healed -Ulcer Cleansing Rinsed/ Rinsed/ Irrigated with Irrigated with Saline Saline -Foul Odor after Cleansing No No -Bioengineered Tissue No No -Bleeding Controlled with Pressure Pressure -Offloading Yes Yes -Type of Offloading Camwalker Camwalker -Treatment Response Procedure Procedure Tolerated Well Tolerated Well Pain Scale: 0-10 Numeric Is Patient Pain Free? Yes Yes Wound debrided: sub central metatarsal head Laterality: Left Wound Grade/Stage: grade 1 Type of Debridement: Excisional debridement Anesthesia Used: 5% Lidocaine Gel Depth: in the subcutaneous layer Percentage of wound debrided: 100 Instrument Used: #15 blade Tissue Removed: fibrous, devitalized subcutaneous, biofilm, slough Severity: Fat Layer Exposed Amount of bleeding with debridement: Mild Bleeding Controlled with: Pressure Patient tolerated procedure well Assessment/Plan Active Problems Chronic 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 (Chronic) Edema of left lower leg due to peripheral venous insufficiency (Chronic) Type 2 diabetes mellitus with diabetic polyneuropathy (Chronic) Assessment: Type 2 diabetes, uncontrolled with neuropathy, venous insufficiency, ulcer of left plantar foot stable, obesity, peripheral vascular disease Plan: I discussed his ongoing treatment recommendations. Excisional subcutaneous debridement was performed as noted in the clinical panel. He was reassured no local signs of infection are noted today. To continue offloading the new ulcer site with a non pneumatic cam walker with dual density offloading pocket. This was evaluated today and still looks appropriate. He changes daily with hydrogel with collagen and overlying gauze. To resume nutritional supplementation. His updated noninvasive vascular studies were reviewed as abnormal to the left lower extremity with an TRISH of approximately 0.5. I also ordered venous reflux studies to rule out venous insufficiency which confirmed abnoralities to the left lower extremity veins. He completed intervention with Dr. Shannon previously in August 2017. He understands he is at risk for delayed healing and limb loss. I answered all his questions. To return to the wound healing center 1 week or call sooner if he has any questions or concerns. Pending progress response a prescription nutritional supplementation, updated radiographs and updated diagnostic data labs will be considered. He is reassured no local signs of infection are noted. Also, additional offloading pocket created in his cam walker dual density Plastizote liners to relieve additional pressure of the ulcer site. He understands it may be modified periodically.
[2019-03-06 13:49] VITALS: BP 147/69; PULSE 91; RESP 18; TEMP 37.1; BMI 48.6
--- NOTE | 2019-03-06 14:42 | PCM.WC.PN ---
(1) Chronic 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 Status: Chronic Code(s): L97.522 - Non-pressure chronic ulcer of other part of 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 (2) Edema of left lower leg due to peripheral venous insufficiency Status: Chronic Code(s): I87.2 - Venous insufficiency (chronic) (peripheral); R60.9 - Edema, unspecified (3) Type 2 diabetes mellitus with diabetic polyneuropathy Status: Chronic Code(s): E11.42 - Type 2 diabetes mellitus with diabetic polyneuropathy Type of Wound Date of Service: 03/06/19 Chief Complaint: Left foot ulcer returned History of Wound: This 58-year-old male with multiple comorbidities presents to the wound healing center for an ulcer to the left forefoot. He reports he recently retired and has been very active. He reports drainage and denies odor or redness. He is previously known to me at the wound healing center and he had vascular surgery intervention performed previously. He denies redness or odor. He denies drainage and thinks the wound is healed. He brought the cam walker. Progress of Wound: Improving - Physical Exam Vital Signs Temp Pulse Resp BP 98.8 F 91 18 147/69 H 03/06/19 13:49 03/06/19 13:49 03/06/19 13:49 03/06/19 13:49 General: Alert, Oriented x3, Cooperative, No apparent distress Extremities: No cyanosis, Capillary Refill Less than 3 Seconds, No Calf Tenderness, Diminished Peripheral Pulses, Edema - mild Skin: Ulcer/ Wound - No purulence, erythema, string, odor, infection. Peripheral skin is atrophic. The wound bed is granular Wound Measurements and Assessment WC - Nurse 1 - General Ulcer Measurement Start: 02/22/19 14:22 Freq: Status: Active Protocol: Activity Type Activity Date Activity User E-Sign Co-Sign Detail Recorded Client Recorded Date Recorded By Document 03/06/19 13:49 MW [id number] 03/06/19 13:57 MW 03/06/19 13:49 Wound Center Nurse 1 [Ulcer Assessment] #3- L PLANTAR -Combined with other wound No -Current Size (cm) - Length 0.5 -Current Size (cm) - Width 0.4 -Current Size (cm) - Depth 0.3 -Total Square Cm 0.20 -Photo Taken No -Epithelialization None Present -Tunneling No -Undermining/Tunneling No -Circular Undermining No -Exudate Amt Small -Exudate Type Serosanguineous -Wound Margin Flat & Intact -Granulation Amt Medium (34-66%) -Granulation Quality Red -Slough/Fibrin Yes -Necrosis Amt Small (1-33%) -Necrotic Tissue Type Adherent Slough -Structure Exposed N/A -Texture (Fiona-wound Skin Appearance) Assessed,Callus -Moisture (Fiona-wound Skin Appearance Assessed, ) Maceration -Color (Fiona-wound Skin Appearance) No Abnormality, Assessed -Temperature (Fiona-wound Skin No Abnormality Appearance) (Pt Warm) -Tenderness on Palpation (Fiona-wound No Skin Appearance) -Ulcer Cleansing Rinsed/ Irrigated with Saline -Foul Odor after Cleansing No -Anesthetic Used 5% Lidocaine Gel [Edema Assessment] -Lower Limb Edema Present No WC - Nurse 2 - General Ulcer CM Notes Start: 02/22/19 14:22 Freq: Status: Active Protocol: Activity Type Activity Date Activity User E-Sign Co-Sign Detail Recorded Client Recorded Date Recorded By Document 03/06/19 14:21 JF [id number] 03/06/19 14:25 03/06/19 14:21 Wound Center Nurse 2 [Procedure/Treatment] #3- L PLANTAR -Time 14:22 -Correct Patient Yes -Correct Side, Site, Position Yes -Correct Procedure Yes -Procedure Performed Yes -Type of Procedure Debridement -Clinical Debridement Subcutaneous -Post Debridement Size (cm) - Length 0.9 -Post Debridement Size (cm) - Width 0.6 -Post Debridement Size (cm) - Depth 0.2 -Total Square Cm 0.54 -Wound/Ulcer Outcome Not Healed -Ulcer Cleansing Rinsed/ Irrigated with Saline -Foul Odor after Cleansing No -Bioengineered Tissue No -Bleeding Controlled with Pressure -Offloading Yes -Type of Offloading Camwalker -Treatment Response Procedure Tolerated Well [See Physician Procedure note for Specifics] Pain Scale: 0-10 Numeric [Pain] -Is Patient Pain Free? Yes Musculoskeletal: No Tenderness to Palpation of Joints or Extremities, Muscle Wasting Neurological: - - Lack of epicritic sensation light touch is consistent with neuropathy status Psych/Mental Status: Normal Affect, Appropriate Debridement Note Post-Debridement Measurements/Treatment WC - Nurse 2 - General Ulcer CM Notes Start: 02/22/19 14:22 Freq: Status: Active Protocol: Activity Type Activity Date Activity User E-Sign Co-Sign Detail Recorded Client Recorded Date Recorded By Document 02/22/19 15:05 [id number] 02/22/19 15:07 Document 02/27/19 14:47 [id number] 02/27/19 14:48 Document 03/06/19 14:21 [id number] 03/06/19 14:25 02/22/19 02/27/19 03/06/19 15:05 14:47 14:21 Wound Center Nurse 2 #3- L PLANTAR -Time 15:05 14:47 14:22 -Correct Patient Yes Yes Yes -Correct Side, Site, Position Yes Yes Yes -Correct Procedure Yes Yes Yes -Procedure Performed Yes Yes Yes -Type of Procedure Debridement Debridement Debridement -Clinical Debridement Subcutaneous Subcutaneous Subcutaneous -Post Debridement Size (cm) - Length 0.6 1 0.9 -Post Debridement Size (cm) - Width 0.4 0.3 0.6 -Post Debridement Size (cm) - Depth 0.3 0.4 0.2 -Total Square Cm 0.24 0.3 0.54 -Wound/Ulcer Outcome Not Healed Not Healed Not Healed -Ulcer Cleansing Rinsed/ Rinsed/ Rinsed/ Irrigated with Irrigated with Irrigated with Saline Saline Saline -Foul Odor after Cleansing No No No -Bioengineered Tissue No No No -Bleeding Controlled with Pressure Pressure Pressure -Offloading Yes Yes Yes -Type of Offloading Camwalker Camwalker Camwalker -Treatment Response Procedure Procedure Procedure Tolerated Well Tolerated Well Tolerated Well Pain Scale: 0-10 Numeric Is Patient Pain Free? Yes Yes Yes Wound debrided: sub metatarsal head Laterality: Left Wound Grade/Stage: grade 1 Type of Debridement: Excisional debridement Anesthesia Used: 5% Lidocaine Gel Depth: in the subcutaneous layer Percentage of wound debrided: 100 Instrument Used: #15 blade Tissue Removed: fibrous, devitalized subcutaneous, biofilm, slough Severity: Fat Layer Exposed Amount of bleeding with debridement: Mild Bleeding Controlled with: Pressure Patient tolerated procedure well Assessment/Plan Assessment: Type 2 diabetes, uncontrolled with neuropathy, venous insufficiency, ulcer of left plantar foot stable, obesity, peripheral vascular disease Plan: I discussed his ongoing treatment recommendations. Excisional subcutaneous debridement was performed as noted in the clinical panel. He was reassured no local signs of infection are noted today. To continue offloading the new ulcer site with a non pneumatic cam walker with dual density offloading pocket. This was evaluated today and still looks appropriate. He changes daily with hydrogel with collagen and overlying gauze. To resume nutritional supplementation. His updated noninvasive vascular studies were reviewed as abnormal to the left lower extremity with an TRISH of approximately 0.5. I also ordered venous reflux studies to rule out venous insufficiency which confirmed abnoralities to the left lower extremity veins. He completed intervention with Dr. Shannon previously in August 2017. He understands he is at risk for delayed healing and limb loss. I answered all his questions. To return to the wound healing center 1 week or call sooner if he has any questions or concerns. Pending progress response a prescription nutritional supplementation, updated radiographs and updated diagnostic data labs will be considered. He is reassured no local signs of infection are noted.
[2019-03-13 14:09] VITALS: BP 155/76; PULSE 71; RESP 18; TEMP 36.8; BMI 48.6
--- NOTE | 2019-03-13 15:08 | PN.PCM_ITS ---
(1) Chronic 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 Status: Chronic Code(s): L97.522 - Non-pressure chronic ulcer of other part of 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 (2) Edema of left lower leg due to peripheral venous insufficiency Status: Chronic Code(s): I87.2 - Venous insufficiency (chronic) (peripheral); R60.9 - Edema, unspecified (3) Type 2 diabetes mellitus with diabetic polyneuropathy Status: Chronic Code(s): E11.42 - Type 2 diabetes mellitus with diabetic polyneuropathy Type of Wound Date of Service: 03/13/19 Chief Complaint: Left foot ulcer returned History of Wound: This 58-year-old male with multiple comorbidities presents to the wound healing center for an ulcer to the left forefoot. He reports drainage and denies odor or redness. He is previously known to me at the wound healing center and he had vascular surgery intervention performed previously. He denies redness or odor. He continues to use cam walker. Progress of Wound: Improving - Physical Exam Vital Signs Temp Pulse Resp BP 98.2 F 71 18 155/76 H 03/13/19 14:09 03/13/19 14:09 03/13/19 14:09 03/13/19 14:09 General: Alert, Oriented x3, Cooperative, No apparent distress Extremities: No cyanosis, Capillary Refill Less than 3 Seconds, No Calf Tenderness, Diminished Peripheral Pulses, Edema Skin: Ulcer/ Wound - No purulence, erythema, streaking, odor, infection. Adjacent skin is atrophic Wound Measurements and Assessment WC - Nurse 1 - General Ulcer Measurement Start: 02/22/19 14:22 Freq: Status: Active Protocol: Activity Type Activity Date Activity User E-Sign Co-Sign Detail Recorded Client Recorded Date Recorded By Document 03/13/19 14:09 RB [id number] 03/13/19 14:16 RB 03/13/19 14:09 Wound Center Nurse 1 [Ulcer Assessment] #3- L PLANTAR -Combined with other wound No -Current Size (cm) - Length 0.5 -Current Size (cm) - Width 0.3 -Current Size (cm) - Depth 0.2 -Total Square Cm 0.15 -Tunneling No -Undermining/Tunneling No -Circular Undermining No -Exudate Amt Small -Exudate Type Serosanguineous -Wound Margin Flat & Intact -Granulation Amt Medium (34-66%) -Granulation Quality [place] -Slough/Fibrin Yes -Necrosis Amt Small (1-33%) -Necrotic Tissue Type Adherent Slough -Structure Exposed N/A -Texture (Fiona-wound Skin Appearance) Callus -Moisture (Fiona-wound Skin Appearance Assessed ) -Color (Fiona-wound Skin Appearance) Assessed -Temperature (Fiona-wound Skin No Abnormality Appearance) (Pt Warm) -Tenderness on Palpation (Fiona-wound No Skin Appearance) -Ulcer Cleansing Wound Cleanser -Foul Odor after Cleansing No -Anesthetic Used 5% Lidocaine Gel - Nurse 2 - General Ulcer CM Notes Start: 02/22/19 14:22 Freq: Status: Active Protocol: Activity Type Activity Date Activity User E-Sign Co-Sign Detail Recorded Client Recorded Date Recorded By Document 03/13/19 14:39 REID [id number] 03/13/19 14:40 03/13/19 14:39 Wound Center Nurse 2 [Procedure/Treatment] -Time 14:40 -Correct Patient Yes -Correct Side, Site, Position Yes -Correct Procedure Yes -Procedure Performed Yes -Type of Procedure Debridement -Clinical Debridement Subcutaneous -Post Debridement Size (cm) - Length 0.7 -Post Debridement Size (cm) - Width 0.4 -Post Debridement Size (cm) - Depth 0.2 -Total Square Cm 0.28 -Wound/Ulcer Outcome Not Healed -Ulcer Cleansing Rinsed/ Irrigated with Saline -Foul Odor after Cleansing No -Bioengineered Tissue No -Bleeding Controlled with Pressure -Offloading Yes -Type of Offloading Camwalker -Treatment Response Procedure Tolerated Well [See Physician Procedure note for Specifics] Pain Scale: 0-10 Numeric [Pain] -Is Patient Pain Free? Yes Musculoskeletal: No Tenderness to Palpation of Joints or Extremities, Muscle Wasting, - - Prominent metatarsal head with dorsal contraction of lesser digits contribute to pressure on his ulcer site Neurological: - - Lack of normal epicritic sensation light touch consistent with neuropathy status Psych/Mental Status: Normal Affect, Appropriate Debridement Note Post-Debridement Measurements/Treatment - Nurse 2 - General Ulcer CM Notes Start: 02/22/19 14:22 Freq: Status: Active Protocol: Activity Type Activity Date Activity User E-Sign Co-Sign Detail Recorded Client Recorded Date Recorded By Document 02/22/19 15:05 [id number] [id number] 02/22/19 15:07 Document 02/27/19 14:47 [id number] 02/27/19 14:48 Document 03/06/19 14:21 [id number] 03/06/19 14:25 Document 03/13/19 14:39 [id number] 03/13/19 14:40 02/22/19 02/27/19 03/06/19 15:05 14:47 14:21 Wound Center Nurse 2 #3- L PLANTAR -Time 15:05 14:47 14:22 -Correct Patient Yes Yes Yes -Correct Side, Site, Position Yes Yes Yes -Correct Procedure Yes Yes Yes -Procedure Performed Yes Yes Yes -Type of Procedure Debridement Debridement Debridement -Clinical Debridement Subcutaneous Subcutaneous Subcutaneous -Post Debridement Size (cm) - Length 0.6 1 0.9 -Post Debridement Size (cm) - Width 0.4 0.3 0.6 -Post Debridement Size (cm) - Depth 0.3 0.4 0.2 -Total Square Cm 0.24 0.3 0.54 -Wound/Ulcer Outcome Not Healed Not Healed Not Healed -Ulcer Cleansing Rinsed/ Rinsed/ Rinsed/ Irrigated with Irrigated with Irrigated with Saline Saline Saline -Foul Odor after Cleansing No No No -Bioengineered Tissue No No No -Bleeding Controlled with Pressure Pressure Pressure -Offloading Yes Yes Yes -Type of Offloading Camwalker Camwalker Camwalker -Treatment Response Procedure Procedure Procedure Tolerated Well Tolerated Well Tolerated Well Pain Scale: 0-10 Numeric Is Patient Pain Free? Yes Yes Yes 03/13/19 14:39 Wound Center Nurse 2 #3- L PLANTAR -Time 14:40 -Correct Patient Yes -Correct Side, Site, Position Yes -Correct Procedure Yes -Procedure Performed Yes -Type of Procedure Debridement -Clinical Debridement Subcutaneous -Post Debridement Size (cm) - Length 0.7 -Post Debridement Size (cm) - Width 0.4 -Post Debridement Size (cm) - Depth 0.2 -Total Square Cm 0.28 -Wound/Ulcer Outcome Not Healed -Ulcer Cleansing Rinsed/ Irrigated with Saline -Foul Odor after Cleansing No -Bioengineered Tissue No -Bleeding Controlled with Pressure -Offloading Yes -Type of Offloading Camwalker -Treatment Response Procedure Tolerated Well Pain Scale: 0-10 Numeric Is Patient Pain Free? Yes Wound debrided: Plantar foot Laterality: Left Wound Grade/Stage: Grade 1 Type of Debridement: Excisional debridement Anesthesia Used: 5% Lidocaine Gel Depth: in the subcutaneous layer Percentage of wound debrided: 100 Instrument Used: #15 blade Tissue Removed: Fibrous, devitalized subcutaneous, biofilm, slough Severity: Fat Layer Exposed Amount of bleeding with debridement: Mild Bleeding Controlled with: Pressure Patient tolerated procedure well Assessment/Plan Assessment: Type 2 diabetes, uncontrolled with neuropathy, venous insufficiency, ulcer of left plantar foot stable, obesity, peripheral vascular disease Plan: I discussed his ongoing treatment recommendations. Excisional subcutaneous debridement was performed as noted in the clinical panel. He was reassured no local signs of infection are noted today. To continue offloading the new ulcer site with a non pneumatic cam walker with dual density offloading pocket. This was evaluated today and still looks appropriate. He changes daily with hydrogel with collagen and overlying gauze. To resume nutritional supplementation. His updated noninvasive vascular studies were reviewed as abnormal to the left lower extremity with an TRISH of approximately 0.5. I also ordered venous reflux studies to rule out venous insufficiency which confirmed abnoralities to the left lower extremity veins. He completed intervention with Dr. Shannon previously in August 2017. He understands he is at risk for delayed healing and limb loss. I answered all his questions. To return to the wound healing center 1 week or call sooner if he has any questions or concerns. Corey zamora progress response a prescription nutritional supplementation, updated radiographs and updated diagnostic data labs will be considered. He is reassured no local signs of infection are noted.
[2019-03-20 13:37] VITALS: BP 115/85; PULSE 115; RESP 18; TEMP 36.3; BMI 48.6
--- NOTE | 2019-03-20 14:17 | PCM.WC.PN ---
(1) Chronic 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 Status: Chronic Current Visit: Yes Code(s): L97.522 - Non-pressure chronic ulcer of other part of 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 (2) Edema of left lower leg due to peripheral venous insufficiency Status: Chronic Current Visit: Yes Code(s): I87.2 - Venous insufficiency (chronic) (peripheral); R60.9 - Edema, unspecified (3) Type 2 diabetes mellitus with diabetic polyneuropathy Status: Chronic Current Visit: Yes Code(s): E11.42 - Type 2 diabetes mellitus with diabetic polyneuropathy (4) Hammer toe of left foot Status: Chronic Current Visit: Yes Code(s): M20.42 - Other hammer toe(s) (acquired), left foot (5) Delayed wound healing Status: Chronic Current Visit: Yes Code(s): T14.8XXD - Other injury of unspecified body region, subsequent encounter (6) Other specified peripheral vascular diseases Status: Chronic Current Visit: Yes Code(s): I73.89 - Other specified peripheral vascular diseases Type of Wound Date of Service: 03/20/19 Chief Complaint: Left foot ulcer returned History of Wound: This 58-year-old male with multiple comorbidities presents to the wound healing center for an ulcer to the left forefoot. He reports drainage and denies odor or redness. He is previously known to me at the wound healing center and he had vascular surgery intervention performed previously. He denies redness or odor. He continues to use cam walker. Progress of Wound: Stable - Physical Exam Vital Signs Temp Pulse Resp BP 97.3 F L 115 H 18 115/85 H 03/20/19 13:37 03/20/19 13:37 03/20/19 13:37 03/20/19 13:37 General: Alert, Oriented x3, Cooperative, No apparent distress Extremities: No cyanosis, Capillary Refill Less than 3 Seconds, No Calf Tenderness, Diminished Peripheral Pulses, Edema Skin: Ulcer/ Wound - No purulence, erythema, streaking, odor, infection. There is a granular base with peripheral callus noted Wound Measurements and Assessment WC - Nurse 1 - General Ulcer Measurement Start: 02/22/19 14:22 Freq: Status: Active Protocol: Activity Type Activity Date Activity User E-Sign Co-Sign Detail Recorded Client Recorded Date Recorded By Document 03/20/19 13:37 [id number] [id number] 03/20/19 13:39 [facility] 03/20/19 13:37 Wound Center Nurse 1 [Ulcer Assessment] #3- L PLANTAR -Combined with other wound No -Current Size (cm) - Length 0.6 -Current Size (cm) - Width 0.3 -Current Size (cm) - Depth 0.3 -Total Square Cm 0.18 -Undermining/Tunneling Yes -Undermining/Tunneling Starts (O' 11 clock) -Undermining/Tunneling Ends (O'clock) 4 -Maximum Distance (cm) 0.3 -Circular Undermining No -Exudate Amt Small -Exudate Type Serosanguineous -Wound Margin Thickened -Granulation Amt Medium (34-66%) -Granulation Quality [place],Red -Slough/Fibrin Yes -Necrosis Amt Small (1-33%) -Necrotic Tissue Type Adherent Slough -Structure Exposed N/A -Texture (Fiona-wound Skin Appearance) Callus -Moisture (Fiona-wound Skin Appearance Assessed ) -Color (Fiona-wound Skin Appearance) Assessed -Temperature (Fiona-wound Skin No Abnormality Appearance) (Pt Warm) -Tenderness on Palpation (Fiona-wound No Skin Appearance) -Ulcer Cleansing Wound Cleanser -Foul Odor after Cleansing No -Anesthetic Used 5% Lidocaine Gel WC - Nurse 2 - General Ulcer CM Notes Start: 02/22/19 14:22 Freq: Status: Active Protocol: Activity Type Activity Date Activity User E-Sign Co-Sign Detail Recorded Client Recorded Date Recorded By Document 03/20/19 13:57 [id number] 03/20/19 13:58 03/20/19 13:57 Wound Center Nurse 2 [Procedure/Treatment] -Time 13:57 -Correct Patient Yes -Correct Side, Site, Position Yes -Correct Procedure Yes -Procedure Performed Yes -Type of Procedure Debridement -Clinical Debridement Subcutaneous -Post Debridement Size (cm) - Length 0.7 -Post Debridement Size (cm) - Width 0.7 -Post Debridement Size (cm) - Depth 0.2 -Total Square Cm 0.49 -Wound/Ulcer Outcome Not Healed -Ulcer Cleansing Rinsed/ Irrigated with Saline -Foul Odor after Cleansing No -Bioengineered Tissue No -Bleeding Controlled with Pressure -Offloading Yes -Type of Offloading Camwalker -Treatment Response Procedure Tolerated Well [See Physician Procedure note for Specifics] Pain Scale: 0-10 Numeric [Pain] -Is Patient Pain Free? Yes Musculoskeletal: No Tenderness to Palpation of Joints or Extremities, Muscle Wasting, - - Dorsal contraction of lesser toes and prominent third metatarsal head does align with the ulceration site. There is no bogginess or fluctuance on palpation Neurological: - - Lack of epicritic sensation light touch consistent with neuropathy status Psych/Mental Status: Normal Affect, Appropriate Debridement Note Post-Debridement Measurements/Treatment WC - Nurse 2 - General Ulcer CM Notes Start: 02/22/19 14:22 Freq: Status: Active Protocol: Activity Type Activity Date Activity User E-Sign Co-Sign Detail Recorded Client Recorded Date Recorded By Document 02/22/19 15:05 [id number] 02/22/19 15:07 Document 02/27/19 14:47 [id number] 02/27/19 14:48 Document 03/06/19 14:21 [id number] 03/06/19 14:25 Document 03/13/19 14:39 [id number] 03/13/19 14:40 Document 03/20/19 13:57 [id number] 03/20/19 13:58 02/22/19 02/27/19 03/06/19 15:05 14:47 14:21 Wound Center Nurse 2 #3- L PLANTAR -Time 15:05 14:47 14:22 -Correct Patient Yes Yes Yes -Correct Side, Site, Position Yes Yes Yes -Correct Procedure Yes Yes Yes -Procedure Performed Yes Yes Yes -Type of Procedure Debridement Debridement Debridement -Clinical Debridement Subcutaneous Subcutaneous Subcutaneous -Post Debridement Size (cm) - Length 0.6 1 0.9 -Post Debridement Size (cm) - Width 0.4 0.3 0.6 -Post Debridement Size (cm) - Depth 0.3 0.4 0.2 -Total Square Cm 0.24 0.3 0.54 -Wound/Ulcer Outcome Not Healed Not Healed Not Healed -Ulcer Cleansing Rinsed/ Rinsed/ Rinsed/ Irrigated with Irrigated with Irrigated with Saline Saline Saline -Foul Odor after Cleansing No No No -Bioengineered Tissue No No No -Bleeding Controlled with Pressure Pressure Pressure -Offloading Yes Yes Yes -Type of Offloading Camwalker Camwalker Camwalker -Treatment Response Procedure Procedure Procedure Tolerated Well Tolerated Well Tolerated Well Pain Scale: 0-10 Numeric Is Patient Pain Free? Yes Yes Yes 03/13/19 03/20/19 14:39 13:57 Wound Center Nurse 2 #3- L PLANTAR -Time 14:40 13:57 -Correct Patient Yes Yes -Correct Side, Site, Position Yes Yes -Correct Procedure Yes Yes -Procedure Performed Yes Yes -Type of Procedure Debridement Debridement -Clinical Debridement Subcutaneous Subcutaneous -Post Debridement Size (cm) - Length 0.7 0.7 -Post Debridement Size (cm) - Width 0.4 0.7 -Post Debridement Size (cm) - Depth 0.2 0.2 -Total Square Cm 0.28 0.49 -Wound/Ulcer Outcome Not Healed Not Healed -Ulcer Cleansing Rinsed/ Rinsed/ Irrigated with Irrigated with Saline Saline -Foul Odor after Cleansing No No -Bioengineered Tissue No No -Bleeding Controlled with Pressure Pressure -Offloading Yes Yes -Type of Offloading Camwalker Camwalker -Treatment Response Procedure Procedure Tolerated Well Tolerated Well Pain Scale: 0-10 Numeric Is Patient Pain Free? Yes Yes Wound debrided: sub 3rd metatarsal head Laterality: Left Wound Grade/Stage: grade 1 Type of Debridement: Excisional debridement Anesthesia Used: 5% Lidocaine Gel Depth: in the subcutaneous layer Percentage of wound debrided: 100 Instrument Used: #15 blade Tissue Removed: fibrous, devitalized subcutaneous, biofilm, slough Severity: Fat Layer Exposed Amount of bleeding with debridement: Mild Bleeding Controlled with: Pressure Patient tolerated procedure well Assessment/Plan Active Problems Chronic 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 (Chronic) Edema of left lower leg due to peripheral venous insufficiency (Chronic) Other specified peripheral vascular diseases (Chronic) Type 2 diabetes mellitus with diabetic polyneuropathy (Chronic) Hammer toe of left foot (Chronic) Delayed wound healing (Chronic) Assessment: Type 2 diabetes, uncontrolled with neuropathy, venous insufficiency, ulcer of left plantar foot stable, obesity, peripheral vascular disease Plan: I discussed his ongoing treatment recommendations. Excisional subcutaneous debridement was performed as noted in the clinical panel. He was reassured no local signs of infection are noted today. To continue offloading the new ulcer site with a non pneumatic cam walker with dual density offloading pocket. This was evaluated today and still looks appropriate. He obtained his [employer] walker and is unable to put it on. He will next try a different type of specialized walker with a knee bolster to keep his limb off the ground or a knee roller. A prescription was previously provided. He changes daily with hydrogel with collagen and overlying gauze. He has had stagnant healing progress and I recommend stimulating the ulcer with regrenax. The indication, purpose, benefits and anticipated healing time management were discussed. This is medically necessary for limb salvage. He is failed other prior conservative care and is lack of 50% wound reduction within the past month. Prior authorization will be initiated for use. To resume nutritional supplementation. His updated noninvasive vascular studies were reviewed as abnormal to the left lower extremity with an TRISH of approximately 0.5. I also ordered venous reflux studies to rule out venous insufficiency which confirmed abnoralities to the left lower extremity veins. He completed intervention with Dr. Shannon previously in August 2017. I will request updated files to see if he is followed up in [place] which I am not able to view these files here in [place].if it appears discontinue adequate flow a total contact cast to be considered. We also discussed future possibility of a metatarsal head resection in a surgical setting. He will consider this. He understands he is at risk for delayed healing and limb loss. I answered all his questions. To return to the wound healing center 1 week or call sooner if he has any questions or concerns. He is reassured no local signs of infection are noted.
== END 2019-03-22 23:59 ==
LOC: WC 14:00
PROVIDERS: Family Provider Internal Medicine; PCP Internal Medicine; Visit Provider Podiatrist
DX: E11.621 Type 2 diabetes mellitus with foot ulcer (principal); E11.42 Type 2 diabetes mellitus with diabetic polyneuropathy; I87.2 Venous insufficiency (chronic) (peripheral); L97.522 Non-pressure chronic ulcer of other part of 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; R60.0 Localized edema; E66.9 Obesity, unspecified; Z68.42 Body mass index [BMI] 45.0-49.9, adult; Z71.3 Dietary counseling and surveillance
CPT/HCPCS: 11042

== ENCOUNTER → 2019-04-01 13:59 | Outpatient (CLI) | payer BC, SELFPAY ==
[2019-03-27 13:57] VITALS: BMI 48.6
--- NOTE | 2019-04-01 14:03 | RAD_ITS ---
STUDY: X-RAY - LEFT FOOT CLINICAL: Plantar foot ulcer. TECHNIQUE: 3 view(s) of the foot. COMPARISON: Radiographs 06/09/2017. FINDINGS: Normal talus, calcaneus, and tarsal bones. Normal visualized subtalar, talonavicular, calcaneocuboid, tarsal and tarsometatarsal articulations. Normal metatarsi. Normal metatarsophalangeal joint of the great toe. Normal tibial and fibular sesamoid bones. Normal interphalangeal joint of the great toe. Normal phalanges of the great toe. Normal second through fifth metatarsophalangeal joints. Normal interphalangeal joints and phalanges of the lesser toes. There is an ossification at the plantar aspect of the calcaneus as on the prior study. There is arterial calcification. 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 No demonstrated active bone destruction. Electronically Signed: José Luis Delgadillo MD at 14:40 EST Tel , Service support ,
== END ==
PROVIDERS: PCP Internal Medicine; Referring Provider Podiatrist; Visit Provider Podiatrist
DX: L97.529 Non-pressure chronic ulcer of other part of left foot with unspecified severity (principal)
CPT/HCPCS: 73630

== ENCOUNTER → 2019-04-17 09:42 | Outpatient (CLI) | payer BC, SELFPAY ==
[2019-04-10 14:28] VITALS: BMI 48.6
--- NOTE | 2019-04-17 09:47 | ADUL_ITS ---
Reason For Study: s/p Lt SFA/Meka Angioplasty Left Velocities Ext Iliac Artery, dist = 167 cm./sec. Common Femoral Artery, dist = 134 cm./sec. Supf. Femoral Artery, prox = 151 cm./sec. Supf. Femoral Artery, mid = 173 cm./sec. Supf. Femoral Artery, dist = 99 cm./sec. Profunda Femoral Artery = 136 cm./sec. Popliteal Artery, proximal, = 98 cm./sec. Popliteal Artery, mid = 68 cm./sec. Popliteal Artery, distal = 71 cm./sec. Post. Tibial Artery, prox = 55 cm./sec. Ant.Tibial Artery, prox = 25 cm./sec. Ant Tibial Artery, mid = 12 cm./sec. Ant. Tibial Artery, distal = 74 cm./sec. Mid and distal Lt PTV: No Flow Lt PeroA: No Flow Lt DPA: 52 cm/s. Procedure Exam performed in department. Interpretation Summary 1. Left leg with peroneal occlussion and bpiphasic flow through the rest with no stenosis. Ordering Physician: Brijesh Shannon Referring Physician: Yola Ng Performed By: Brisa Franklin, JERRY, RVT
== END ==
PROVIDERS: PCP Internal Medicine; Referring Provider Surgery Vascular Surgery; Visit Provider Surgery Vascular Surgery
DX: I70.244 Atherosclerosis of native arteries of left leg with ulceration of heel and midfoot (principal); Z48.812 Encounter for surgical aftercare following surgery on the circulatory system
CPT/HCPCS: 93926

== ENCOUNTER 2019-04-17 14:15 | Outpatient (RCR) | payer BC, SELFPAY ==
[2019-03-23 00:56] VITALS: BP 115/85; PULSE 115; RESP 18; TEMP 36.3
[2019-03-27 13:57] VITALS: BP 130/64; PULSE 18; RESP 18; TEMP 37.4; BMI 48.6
--- NOTE | 2019-03-27 15:52 | PN.PCM_ITS ---
(1) Chronic 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 Status: Chronic Current Visit: Yes Code(s): L97.522 - Non-pressure chronic ulcer of other part of 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 (2) Malnutrition Status: Suspected Current Visit: Yes Code(s): E46 - Unspecified protein- calorie malnutrition (3) Other specified peripheral vascular diseases Status: Chronic Current Visit: Yes Code(s): I73.89 - Other specified peripheral vascular diseases (4) Type 2 diabetes mellitus with diabetic polyneuropathy Status: Chronic Current Visit: Yes Code(s): E11.42 - Type 2 diabetes mellitus with diabetic polyneuropathy (5) Hammer toe of left foot Status: Chronic Current Visit: Yes Code(s): M20.42 - Other hammer toe(s) (ac quired), left foot (6) Delayed wound healing Status: Chronic Current Visit: Yes Code(s): T14.8XXD - Other injury of unspecified body region, subsequent encounter Type of Wound Date of Service: 03/27/19 Chief Complaint: Left foot ulcer returned History of Wound: This 58-year-old male with multiple comorbidities presents to the wound healing center for an ulcer to the left forefoot. He reports drainage and denies odor or redness. He is previously known to me at the wound healing center and he had vascular surgery intervention performed previously in 2018; he missed his recommended follow up and has not rescheduled. He denies redness or odor. He continues to use cam walker. He relates he just got updated lab work at the [facility] last week. Progress of Wound: Stable - Physical Exam Vital Signs Temp Pulse Resp BP 99.4 F H 18 L 18 130/64 H 03/27/19 13:57 03/27/19 13:57 03/27/19 13:57 03/27/19 13:57 General: Alert, Oriented x3, Cooperative, No apparent distress Extremities: No cyanosis, Capillary Refill Less than 3 Seconds, No Calf Tenderness, Diminished Peripheral Pulses, Edema Skin: Ulcer/ Wound - No purulence, erythema, streaking, odor, infection. Ulcer bed is granular and there is no visualized deep tissue necrosis Wound Measurements and Assessment WC - Nurse 1 - General Ulcer Measurement Start: 03/27/19 13:57 Freq: Status: Active Protocol: Activity Type Activity Date Activity User E-Sign Co-Sign Detail Recorded Client Recorded Date Recorded By Document 03/27/19 13:57 MW [id number] 03/27/19 14:03 MW 03/27/19 13:57 Wound Center Nurse 1 [Ulcer Assessment] #3- L PLANTAR -Combined with other wound No -Current Size (cm) - Length 0.4 -Current Size (cm) - Width 0.4 -Current Size (cm) - Depth 0.3 -Total Square Cm 0.16 -Photo Taken No -Epithelialization None Present -Tunneling No -Undermining/Tunneling No -Circular Undermining No -Exudate Amt Small -Exudate Type Serosanguineous -Wound Margin Distinct, Outline Attached -Granulation Amt Medium (34-66%) -Granulation Quality Red -Slough/Fibrin Yes -Necrosis Amt Small (1-33%) -Necrotic Tissue Type Adherent Slough -Structure Exposed N/A -Texture (Fiona-wound Skin Appearance) Assessed,Callus -Moisture (Fiona-wound Skin Appearance No Abnormality, ) Assessed -Color (Fiona-wound Skin Appearance) No Abnormality, Assessed -Temperature (Fiona-wound Skin No Abnormality Appearance) (Pt Warm) -Tenderness on Palpation (Fiona-wound No Skin Appearance) -Ulcer Cleansing soap and water -Foul Odor after Cleansing No -Anesthetic Used 5% Lidocaine Gel [Edema Assessment] -Lower Limb Edema Present No WC - Nurse 2 - General Ulcer CM Notes Start: 03/27/19 13:57 Freq: Status: Active Protocol: Activity Type Activity Date Activity User E-Sign Co-Sign Detail Recorded Client Recorded Date Recorded By Document 03/27/19 14:29 [id number] 03/27/19 14:29 JF 03/27/19 14:29 Wound Center Nurse 2 [Procedure/Treatment] #3- L PLANTAR -Time 14:29 -Correct Patient Yes -Correct Side, Site, Position Yes -Correct Procedure Yes -Procedure Performed Yes -Type of Procedure Debridement -Clinical Debridement Subcutaneous -Post Debridement Size (cm) - Length 0.4 -Post Debridement Size (cm) - Width 0.5 -Post Debridement Size (cm) - Depth 0.2 -Total Square Cm 0.20 -Wound/Ulcer Outcome Not Healed -Ulcer Cleansing Rinsed/ Irrigated with Saline -Foul Odor after Cleansing No -Bioengineered Tissue No -Bleeding Controlled with Pressure -Offloading Yes -Type of Offloading Camwalker -Treatment Response Procedure Tolerated Well [See Physician Procedure note for Specifics] Pain Scale: 0-10 Numeric [Pain] -Is Patient Pain Free? Yes Musculoskeletal: No Tenderness to Palpation of Joints or Extremities, Muscle Wasting Neurological: - - Lack of epicritic sensation light touch consistent with neuropathy status Psych/Mental Status: Normal Affect, Appropriate Debridement Note Post-Debridement Measurements/Treatment WC - Nurse 2 - General Ulcer CM Notes Start: 03/27/19 13:57 Freq: Status: Active Protocol: Activity Type Activity Date Activity User E-Sign Co-Sign Detail Recorded Client Recorded Date Recorded By Document 03/27/19 14:29 JF [id number] 03/27/19 14:29 JF 03/27/19 14:29 Wound Center Nurse 2 #3- L PLANTAR -Time 14:29 -Correct Patient Yes -Correct Side, Site, Position Yes -Correct Procedure Yes -Procedure Performed Yes -Type of Procedure Debridement -Clinical Debridement Subcutaneous -Post Debridement Size (cm) - Length 0.4 -Post Debridement Size (cm) - Width 0.5 -Post Debridement Size (cm) - Depth 0.2 -Total Square Cm 0.20 -Wound/Ulcer Outcome Not Healed -Ulcer Cleansing Rinsed/ Irrigated with Saline -Foul Odor after Cleansing No -Bioengineered Tissue No -Bleeding Controlled with Pressure -Offloading Yes -Type of Offloading Camwalker -Treatment Response Procedure Tolerated Well Pain Scale: 0-10 Numeric Is Patient Pain Free? Yes Wound debrided: sub metatarsal head lateral Laterality: Left Wound Grade/Stage: grade 1 Type of Debridement: Excisional debridement Anesthesia Used: 5% Lidocaine Gel Depth: in the subcutaneous layer Percentage of wound debrided: 100 Instrument Used: #15 blade Tissue Removed: fibrous, devitalized subcutaneous, biofilm, slough Severity: Fat Layer Exposed Amount of bleeding with debridement: Mild Bleeding Controlled with: Pressure Patient tolerated procedure well Assessment/Plan Active Problems Chronic 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 (Chronic) Other specified peripheral vascular diseases (Chronic) Type 2 diabetes mellitus with diabetic polyneuropathy (Chronic) Hammer toe of left foot (Chronic) Delayed wound healing (Chronic) Assessment: Type 2 diabetes, uncontrolled with neuropathy, venous insufficiency, ulcer of left plantar foot stable, obesity, peripheral vascular disease Plan: I discussed his ongoing treatment recommendations. Excisional subcutaneous debridement was performed as noted in the clinical panel. He was reassured no local signs of infection are noted today. To continue offloading the ulcer site with a non pneumatic cam walker with dual density offloading pocket. This was evaluated today and still looks appropriate. He obtained his i crutch walker and is unable to put it on. He will next try a different type of specialized walker with a knee bolster to keep his limb off the ground or a knee roller. A prescription was previously provided. He changes daily with hydrogel with collagen and overlying gauze. He has had stagnant healing progress and I recommend stimulating the ulcer with regrenax. This was not approved for an appropriate cost for him and he is unable to fill this prescription.To resume nutritional supplementation. I recommended Glucerna and eating a well-balanced full food diet with appropriate and enough protein and vitamin C. His updated noninvasive vascular studies were reviewed as abnormal to the left lower extremity with an TRISH of approximately 0.5. I also ordered venous reflux studies to rule out venous insufficiency which confirmed abnoralities to the left lower extremity veins. He completed intervention with Dr. Shannon previously in August 2017. He has not followed up as advised and did not reschedule. I recommend he follow-up with rescheduling for maintenance check. He understands he is at risk for delayed healing and limb loss. I answered all his questions. His laboratory work will be requested from the [facility]. The wound was also cultured to see if there are any abnormal or pathological amounts of bacterial growth which may be contributing to slower healing; aerobic and anaerobic. A foot x-ray was also ordered due to the chronicity of this ulcer. We will review these results when he returns. To return to the wound healing center 1 week or call sooner if he has any questions or concerns. He is reassured no local signs of infection are noted. Answered his questions.
[2019-04-03 13:44] VITALS: BP 128/73; PULSE 81; RESP 18; TEMP 36.8; BMI 48.6
--- NOTE | 2019-04-03 14:36 | PCM.WC.PN ---
(1) Chronic 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 Status: Chronic Current Visit: Yes Code(s): L97.522 - Non-pressure chronic ulcer of other part of 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 (2) Malnutrition Status: Suspected Current Visit: Yes Code(s): E46 - Unspecified protein-calorie malnutrition (3) Other specified peripheral vascular diseases Status: Chronic Current Visit: Yes Code(s): I73.89 - Other specified peripheral vascular diseases (4) Type 2 diabetes mellitus with diabetic polyneuropathy Status: Chronic Current Visit: Yes Code(s): E11.42 - Type 2 diabetes mellitus with diabetic polyneuropathy (5) Hammer toe of left foot Status: Chronic Current Visit: Yes Code(s): M20.42 - Other hammer toe(s) (acquired), left foot (6) Delayed wound healing Status: Chronic Current Visit: Yes Code(s): T14.8XXD - Other injury of unspecified body region, subsequent encounter (7) Colonization status Status: Chronic Current Visit: Yes Code(s): Z22.9 - Carrier of infectious disease, unspecified Type of Wound Date of Service: 04/03/19 Chief Complaint: Left foot ulcer returned History of Wound: This 58-year-old male with multiple comorbidities presents to the wound healing center for an ulcer to the left forefoot. He reports drainage and denies odor or redness. He had vascular surgery intervention performed previously in 2018; he missed his recommended follow up and has not rescheduled yet even as of today. He denies redness or odor. He continues to use cam walker. He relates he just got updated lab work at the [facility] last week. He updated his foot x-ray as advised and would like to review the results. Progress of Wound: Stable - Physical Exam Vital Signs Temp Pulse Resp BP 98.2 F 81 18 128/73 H 04/03/19 13:44 04/03/19 13:44 04/03/19 13:44 04/03/19 13:44 General: Alert, Oriented x3, Cooperative, No apparent distress Extremities: No cyanosis, Capillary Refill Less than 3 Seconds, No Calf Tenderness, Diminished Peripheral Pulses, Edema Skin: Ulcer/ Wound - No purulence, erythema, string, odor, infection Wound Measurements and Assessment WC - Nurse 1 - General Ulcer Measurement Start: 03/27/19 13:57 Freq: Status: Active Protocol: Activity Type Activity Date Activity User E-Sign Co-Sign Detail Recorded Client Recorded Date Recorded By Document 04/03/19 13:44 MW [id number] 04/03/19 13:46 MW 04/03/19 13:44 Wound Center Nurse 1 [Ulcer Assessment] #3- L PLANTAR -Combined with other wound No -Current Size (cm) - Length 0.4 -Current Size (cm) - Width 0.5 -Current Size (cm) - Depth 0.2 -Total Square Cm 0.20 -Photo Taken No -Epithelialization None Present -Tunneling No -Undermining/Tunneling No -Circular Undermining No -Exudate Amt Small -Exudate Type Serosanguineous -Wound Margin Flat & Intact -Granulation Amt Medium (34-66%) -Granulation Quality [place] -Slough/Fibrin Yes -Necrosis Amt Small (1-33%) -Necrotic Tissue Type Adherent Slough -Structure Exposed N/A -Texture (Fiona-wound Skin Appearance) Assessed,Callus ,Scarring -Moisture (Fiona-wound Skin Appearance No Abnormality, ) Assessed -Color (Fiona-wound Skin Appearance) No Abnormality, Assessed -Temperature (Fiona-wound Skin No Abnormality Appearance) (Pt Warm) -Tenderness on Palpation (Fiona-wound Yes Skin Appearance) -Ulcer Cleansing soap and water -Foul Odor after Cleansing No -Anesthetic Used 4% Lidocaine Solution [Edema Assessment] -Lower Limb Edema Present No WC - Nurse 2 - General Ulcer CM Notes Start: 03/27/19 13:57 Freq: Status: Active Protocol: Activity Type Activity Date Activity User E-Sign Co-Sign Detail Recorded Client Recorded Date Recorded By Document 04/03/19 14:02 [id number] 04/03/19 14:05 JF 04/03/19 14:02 Wound Center Nurse 2 [Procedure/Treatment] #3- L PLANTAR -Time 14:03 -Correct Patient Yes -Correct Side, Site, Position Yes -Correct Procedure Yes -Procedure Performed Yes -Type of Procedure Debridement -Clinical Debridement Subcutaneous -Post Debridement Size (cm) - Length 0.6 -Post Debridement Size (cm) - Width 0.5 -Post Debridement Size (cm) - Depth 0.2 -Total Square Cm 0.30 -Wound/Ulcer Outcome Not Healed -Ulcer Cleansing Rinsed/ Irrigated with Saline -Foul Odor after Cleansing No -Bioengineered Tissue No -Bleeding Controlled with Pressure -Offloading Yes -Type of Offloading Camwalker -Treatment Response Procedure Tolerated Well [See Physician Procedure note for Specifics] Pain Scale: 0-10 Numeric [Pain] -Is Patient Pain Free? Yes Musculoskeletal: No Tenderness to Palpation of Joints or Extremities, Muscle Wasting, - - Dorsal contraction of lesser digits with prominent metatarsal heads Neurological: - - lack of epicritic sensation via light touch Psych/Mental Status: Normal Affect, Appropriate Debridement Note Post-Debridement Measurements/Treatment WC - Nurse 2 - General Ulcer CM Notes Start: 03/27/19 13:57 Freq: Status: Active Protocol: Activity Type Activity Date Activity User E-Sign Co-Sign Detail Recorded Client Recorded Date Recorded By Document 03/27/19 14:29 JF [id number] 03/27/19 14:29 Document 04/03/19 14:02 JF [id number] 04/03/19 14:05 03/27/19 04/03/19 14:29 14:02 Wound Center Nurse 2 #3- L PLANTAR -Time 14:29 14:03 -Correct Patient Yes Yes -Correct Side, Site, Position Yes Yes -Correct Procedure Yes Yes -Procedure Performed Yes Yes -Type of Procedure Debridement Debridement -Clinical Debridement Subcutaneous Subcutaneous -Post Debridement Size (cm) - Length 0.4 0.6 -Post Debridement Size (cm) - Width 0.5 0.5 -Post Debridement Size (cm) - Depth 0.2 0.2 -Total Square Cm 0.20 0.30 -Wound/Ulcer Outcome Not Healed Not Healed -Ulcer Cleansing Rinsed/ Rinsed/ Irrigated with Irrigated with Saline Saline -Foul Odor after Cleansing No No -Bioengineered Tissue No No -Bleeding Controlled with Pressure Pressure -Offloading Yes Yes -Type of Offloading Camwalker Camwalker -Treatment Response Procedure Procedure Tolerated Well Tolerated Well Pain Scale: 0-10 Numeric Is Patient Pain Free? Yes Yes Wound debrided: sub metatarsal head Laterality: Left Wound Grade/Stage: grade 1 Type of Debridement: Excisional debridement Anesthesia Used: 5% Lidocaine Gel Depth: in the subcutaneous layer Percentage of wound debrided: 100 Instrument Used: #15 blade Tissue Removed: Fibrous, devitalized subcutaneous, biofilm, slough Severity: Fat Layer Exposed Amount of bleeding with debridement: Mild Bleeding Controlled with: Pressure Patient tolerated procedure well Assessment/Plan Active Problems Chronic 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 (Chronic) Other specified peripheral vascular diseases (Chronic) Type 2 diabetes mellitus with diabetic polyneuropathy (Chronic) Hammer toe of left foot (Chronic) Delayed wound healing (Chronic) Colonization status (Chronic) Assessment: Type 2 diabetes, uncontrolled with neuropathy, venous insufficiency, ulcer of left plantar foot stable, obesity, peripheral vascular disease, colonization Plan: I discussed his ongoing treatment recommendations. Excisional subcutaneous debridement was performed as noted in the clinical panel. He was reassured no local signs of infection are noted today from a clinical standpoint. To continue offloading the ulcer site with a non pneumatic cam walker with dual density offloading pocket. This was evaluated today and still looks appropriate. He changes daily with hydrogel with collagen and overlying gauze and will now use alona. To resume nutritional supplementation. I recommended Glucerna and eating a well-balanced full food diet with appropriate and enough protein and vitamin C. His updated noninvasive vascular studies were reviewed as abnormal to the left lower extremity with an TRISH of approximately 0.5. I also ordered venous reflux studies to rule out venous insufficiency which confirmed abnoralities to the left lower extremity veins. He completed intervention with Dr. Shannon previously in August 2017. He has not followed up as advised and did not reschedule. To schedule this as advised. I recommend he follow-up with rescheduling for maintenance check. He understands he is at risk for delayed healing and limb loss. I answered all his questions. His laboratory work will be requested from the [facility]. The wound was also cultured to see if there are any abnormal or pathological amounts of bacterial growth which may be contributing to slower healing; aerobic and anaerobic. A foot x-ray was also ordered due to the chronicity of this ulcer. There are no acute fractures or dislocations subcutaneous emphysema. His culture also grew out staph and anaerobic cocci. There continues to be no overt obvious signs of local infection however this bacteria should not be growing in the ulcer site and is probably contributing to delayed healing. I recommend he watch his this daily with medical grade antimicrobial soap. This was dispensed today. Antibiotic will be considered if lack of progress continues. To return to the wound healing center 1 week or call sooner if he has any questions or concerns. He is reassured no local signs of infection are noted. Answered his questions.
[2019-04-10 14:28] VITALS: BP 146/69; PULSE 73; RESP 18; TEMP 36.4; BMI 48.6
--- NOTE | 2019-04-10 21:42 | PN.PCM_ITS ---
(1) Chronic 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 Status: Chronic Current Visit: Yes Code(s): L97.522 - Non-pressure chronic ulcer of other part of 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 (2) Malnutrition Status: Suspected Current Visit: Yes Code(s): E46 - Unspecified protein- calorie malnutrition (3) Other specified peripheral vascular diseases Status: Chronic Current Visit: Yes Code(s): I73.89 - Other specified peripheral vascular diseases (4) Type 2 diabetes mellitus with diabetic polyneuropathy Status: Chronic Current Visit: Yes Code(s): E11.42 - Type 2 diabetes mellitus with diabetic polyneuropathy (5) Hammer toe of left foot Status: Chronic Current Visit: Yes Code(s): M20.42 - Other hammer toe(s) (ac quired), left foot (6) Delayed wound healing Status: Chronic Current Visit: Yes Code(s): T14.8XXD - Other injury of unspecified body region, subsequent encounter (7) Colonization status Status: Chronic Current Visit: Yes Code(s): Z22.9 - Carrier of infectious disease, unspecified Type of Wound Date of Service: 04/10/19 Chief Complaint: Left foot ulcer returned History of Wound: This 58-year-old male with multiple comorbidities presents to the wound healing center for an ulcer to the left forefoot. He reports drainage and denies odor or redness. He had vascular surgery intervention performed previously in 2018; he missed his recommended follow up and has not rescheduled yet even as of today. He denies redness or odor. He continues to use cam walker. Progress of Wound: Stable - Physical Exam Vital Signs Temp Pulse Resp BP 97.6 F L 73 18 146/69 H 04/10/19 14:28 04/10/19 14:28 04/10/19 14:28 04/10/19 14:28 General: Alert, Oriented x3, Cooperative, No apparent distress Extremities: No cyanosis, Capillary Refill Less than 3 Seconds, No Calf Tenderness, Diminished Peripheral Pulses, Edema Skin: Ulcer/ Wound - No purulence, erythema, streaking, odor, infection. Adjacent skin is atrophic Wound Measurements and Assessment WC - Nurse 1 - General Ulcer Measurement Start: 03/27/19 13:57 Freq: Status: Active Protocol: Activity Type Activity Date Activity User E-Sign Co-Sign Detail Recorded Client Recorded Date Recorded By Document 04/10/19 14:28 [facility] [id number] 04/10/19 14:31 [facility] 04/10/19 14:28 Wound Center Nurse 1 [Ulcer Assessment] #3- L PLANTAR -Combined with other wound No -Current Size (cm) - Length 0.3 -Current Size (cm) - Width 0.2 -Current Size (cm) - Depth 0.3 -Total Square Cm 0.06 -Photo Taken No -Epithelialization None Present -Tunneling No -Undermining/Tunneling No -Circular Undermining No -Exudate Amt Small -Exudate Type Serosanguineous -Wound Margin Distinct, Outline Attached -Granulation Amt Medium (34-66%) -Granulation Quality Red -Slough/Fibrin Yes -Necrosis Amt Small (1-33%) -Necrotic Tissue Type Adherent Slough -Texture (Fiona-wound Skin Appearance) Assessed,Callus ,Scarring -Moisture (Fiona-wound Skin Appearance Assessed,Dry/ ) Scaly -Color (Fiona-wound Skin Appearance) Assessed -Temperature (Fiona-wound Skin No Abnormality Appearance) (Pt Warm) -Tenderness on Palpation (Fiona-wound No Skin Appearance) -Ulcer Cleansing Rinsed/ Irrigated with Saline -Foul Odor after Cleansing No -Anesthetic Used 5% Lidocaine Gel WC - Nurse 2 - General Ulcer CM Notes Start: 03/27/19 13:57 Freq: Status: Active Protocol: Activity Type Activity Date Activity User E-Sign Co-Sign Detail Recorded Client Recorded Date Recorded By Document 04/10/19 14:58 [id number] 04/10/19 14:59 04/10/19 14:58 Wound Center Nurse 2 [Procedure/Treatment] -Time 14:58 -Correct Patient Yes -Correct Side, Site, Position Yes -Correct Procedure Yes -Procedure Performed Yes -Type of Procedure Debridement -Clinical Debridement Subcutaneous -Post Debridement Size (cm) - Length 0.3 -Post Debridement Size (cm) - Width 0.3 -Post Debridement Size (cm) - Depth 0.2 -Total Square Cm 0.09 -Wound/Ulcer Outcome Not Healed -Ulcer Cleansing Rinsed/ Irrigated with Saline -Foul Odor after Cleansing No -Bioengineered Tissue No -Bleeding Controlled with Pressure -Offloading Yes -Type of Offloading Camwalker -Treatment Response Procedure Tolerated Well [See Physician Procedure note for Specifics] Pain Scale: 0-10 Numeric [Pain] -Is Patient Pain Free? Yes Musculoskeletal: No Tenderness to Palpation of Joints or Extremities, Muscle Wasting, - - Dorsal contracture lesser toes and prominent metatarsal head Neurological: - - Lack of normal epicritic sensation light touch Psych/Mental Status: Normal Affect, Appropriate Debridement Note Post-Debridement Measurements/Treatment WC - Nurse 2 - General Ulcer CM Notes Start: 03/27/19 13:57 Freq: Status: Active Protocol: Activity Type Activity Date Activity User E-Sign Co-Sign Detail Recorded Client Recorded Date Recorded By Document 03/27/19 14:29 [id number] 03/27/19 14:29 Document 04/03/19 14:02 [id number] 04/03/19 14:05 Document 04/10/19 14:58 [id number] 04/10/19 14:59 03/27/19 04/03/19 04/10/19 14:29 14:02 14:58 Wound Center Nurse 2 #3- L PLANTAR -Time 14:29 14:03 14:58 -Correct Patient Yes Yes Yes -Correct Side, Site, Position Yes Yes Yes -Correct Procedure Yes Yes Yes -Procedure Performed Yes Yes Yes -Type of Procedure Debridement Debridement Debridement -Clinical Debridement Subcutaneous Subcutaneous Subcutaneous -Post Debridement Size (cm) - Length 0.4 0.6 0.3 -Post Debridement Size (cm) - Width 0.5 0.5 0.3 -Post Debridement Size (cm) - Depth 0.2 0.2 0.2 -Total Square Cm 0.20 0.30 0.09 -Wound/Ulcer Outcome Not Healed Not Healed Not Healed -Ulcer Cleansing Rinsed/ Rinsed/ Rinsed/ Irrigated with Irrigated with Irrigated with Saline Saline Saline -Foul Odor after Cleansing No No No -Bioengineered Tissue No No No -Bleeding Controlled with Pressure Pressure Pressure -Offloading Yes Yes Yes -Type of Offloading Camwalker Camwalker Camwalker -Treatment Response Procedure Procedure Procedure Tolerated Well Tolerated Well Tolerated Well Pain Scale: 0-10 Numeric Is Patient Pain Free? Yes Yes Yes Wound debrided: plantar foot Laterality: Left Wound Grade/Stage: grade 1 Type of Debridement: Excisional debridement Anesthesia Used: 5% Lidocaine Gel Depth: in the subcutaneous layer Percentage of wound debrided: 100 Instrument Used: #15 blade Tissue Removed: fibrous, devitalized subcutaneous, biofilm, slough Severity: Fat Layer Exposed Amount of bleeding with debridement: Mild Bleeding Controlled with: Pressure Patient tolerated procedure well Assessment/Plan Active Problems Chronic 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 (Chronic) Other specified peripheral vascular diseases (Chronic) Type 2 diabetes mellitus with diabetic polyneuropathy (Chronic) Hammer toe of left foot (Chronic) Delayed wound healing (Chronic) Colonization status (Chronic) Assessment: Type 2 diabetes, uncontrolled with neuropathy, venous insufficiency, ulcer of left plantar foot stable, obesity, peripheral vascular disease, colonization Plan: I discussed his ongoing treatment recommendations. Excisional subcutaneous debridement was performed as noted in the clinical panel. To continue to change dressing daily with Antonieta. He was reassured no local signs of infection are noted today from a clinical standpoint. To continue offloading the ulcer site with a non pneumatic cam walker with dual density offloading pocket. This was evaluated today and still looks appropriate. He changes daily with hydrogel with collagen and overlying gauze and will now use antonieta. To resume nutritional supplementation. I recommended Glucerna and eating a well-balanced full food diet with appropriate and enough protein and vitamin C. His updated noninvasive vascular studies were reviewed as abnormal to the left lower extremity with an TRISH of approximately 0.5. I also ordered venous reflux studies to rule out venous insufficiency which confirmed abnoralities to the left lower extremity veins. He completed intervention with Dr. Shannon previously in August 2017. He has not followed up as advised and did not reschedule. To schedule this as advised. I recommend he follow-up with rescheduling for maintenance check. He understands he is at risk for delayed healing and limb loss. I answered all his questions. His laboratory work will be requested from the [facility]. The wound was also cultured to see if there are any abnormal or pathological amounts of bacterial growth which may be contributing to slower healing; aerobic and anaerobic. A foot x-ray was also ordered due to the chronicity of this ulcer. There are no acute fractures or dislocations subcutaneous emphysema. His culture also grew out staph and anaerobic cocci. There continues to be no overt obvious signs of local infection however this bacteria should not be growing in the ulcer site and is probably contributing to delayed healing. I recommend he watch his this daily with medical grade antimicrobial soap. This was dispensed previously. Antibiotic will be considered if lack of progress continues. To return to the wound healing center 1 week or call sooner if he has any questions or concerns. He is reassured no local signs of infection are noted. Answered his questions.
[2019-04-17 14:22] VITALS: BP 168/62; PULSE 72; RESP 18; TEMP 36.9; BMI 48.6
--- NOTE | 2019-04-17 23:47 | PN.PCM_ITS ---
(1) Chronic 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 Status: Chronic Current Visit: Yes Code(s): L97.522 - Non-pressure chronic ulcer of other part of 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 (2) Malnutrition Status: Suspected Current Visit: Yes Code(s): E46 - Unspecified protein- calorie malnutrition (3) Other specified peripheral vascular diseases Status: Chronic Current Visit: Yes Code(s): I73.89 - Other specified peripheral vascular diseases (4) Type 2 diabetes mellitus with diabetic polyneuropathy Status: Chronic Current Visit: Yes Code(s): E11.42 - Type 2 diabetes mellitus with diabetic polyneuropathy (5) Hammer toe of left foot Status: Chronic Current Visit: Yes Code(s): M20.42 - Other hammer toe(s) (ac quired), left foot (6) Delayed wound healing Status: Chronic Current Visit: Yes Code(s): T14.8XXD - Other injury of unspecified body region, subsequent encounter (7) Colonization status Status: Chronic Current Visit: Yes Code(s): Z22.9 - Carrier of infectious disease, unspecified Type of Wound Date of Service: 04/17/19 Chief Complaint: Left foot ulcer returned History of Wound: This 58-year-old male with multiple comorbidities presents to the wound healing center for an ulcer to the left forefoot. He reports drainage and denies odor or redness. He had vascular surgery intervention performed previously in 2018; he missed his recommended follow up and has not rescheduled yet even as of today. He was called yesterday and reminded by nursing staff to make this appointment; this was successfully scheduled. He denies redness or odor. He continues to use cam walker. Progress of Wound: Stable - Physical Exam Vital Signs Temp Pulse Resp BP 98.5 F 72 18 168/62 H 04/17/19 14:22 04/17/19 14:22 04/17/19 14:22 04/17/19 14:22 General: Alert, Oriented x3, Cooperative, No apparent distress Extremities: No cyanosis, Capillary Refill Less than 3 Seconds, Diminished Peripheral Pulses, Edema Skin: Ulcer/ Wound Wound Measurements and Assessment WC - Nurse 1 - General Ulcer Measurement Start: 03/27/19 13:57 Freq: Status: Active Protocol: Activity Type Activity Date Activity User E-Sign Co-Sign Detail Recorded Client Recorded Date Recorded By Document 04/17/19 14:22 RB [id number] 04/17/19 14:23 RB 04/17/19 14:22 Wound Center Nurse 1 [Ulcer Assessment] #3- L PLANTAR -Combined with other wound No -Current Size (cm) - Length 0.3 -Current Size (cm) - Width 0.2 -Current Size (cm) - Depth 0.3 -Total Square Cm 0.06 -Tunneling No -Undermining/Tunneling No -Circular Undermining No -Exudate Amt Small -Exudate Type Serosanguineous -Wound Margin Thickened -Granulation Amt Medium (34-66%) -Granulation Quality [place] -Slough/Fibrin Yes -Necrosis Amt Small (1-33%) -Necrotic Tissue Type Adherent Slough -Structure Exposed N/A -Texture (Fiona-wound Skin Appearance) Callus -Moisture (Fiona-wound Skin Appearance Assessed ) -Color (Fiona-wound Skin Appearance) Assessed -Temperature (Fiona-wound Skin No Abnormality Appearance) (Pt Warm) -Tenderness on Palpation (Fiona-wound No Skin Appearance) -Ulcer Cleansing Wound Cleanser -Foul Odor after Cleansing No -Anesthetic Used 5% Lidocaine Gel WC - Nurse 2 - General Ulcer CM Notes Start: 03/27/19 13:57 Freq: Status: Active Protocol: Activity Type Activity Date Activity User E-Sign Co-Sign Detail Recorded Client Recorded Date Recorded By Document 04/17/19 14:54 [id number] 04/17/19 14:59 04/17/19 14:54 Wound Center Nurse 2 [Procedure/Treatment] -Time 14:59 -Correct Patient Yes -Correct Side, Site, Position Yes -Correct Procedure Yes -Procedure Performed Yes -Type of Procedure Debridement -Clinical Debridement Subcutaneous -Post Debridement Size (cm) - Length 0.6 -Post Debridement Size (cm) - Width 0.6 -Post Debridement Size (cm) - Depth 0.2 -Total Square Cm 0.36 -Wound/Ulcer Outcome Not Healed -Ulcer Cleansing Rinsed/ Irrigated with Saline -Foul Odor after Cleansing No -Bioengineered Tissue No -Bleeding Controlled with Pressure -Offloading Yes -Type of Offloading Camwalker -Treatment Response Procedure Tolerated Well [See Physician Procedure note for Specifics] Pain Scale: 0-10 Numeric [Pain] -Is Patient Pain Free? Yes Musculoskeletal: No Tenderness to Palpation of Joints or Extremities, Muscle Wasting Neurological: - - Lack of epicritic sensation light touch is consistent with neuropathy status Psych/Mental Status: Normal Affect, Appropriate Debridement Note Post-Debridement Measurements/Treatment WC - Nurse 2 - General Ulcer CM Notes Start: 03/27/19 13:57 Freq: Status: Active Protocol: Activity Type Activity Date Activity User E-Sign Co-Sign Detail Recorded Client Recorded Date Recorded By Document 03/27/19 14:29 [id number] 03/27/19 14:29 Document 04/03/19 14:02 [id number] 04/03/19 14:05 Document 04/10/19 14:58 [id number] 04/10/19 14:59 Document 04/17/19 14:54 [id number] 04/17/19 14:59 03/27/19 04/03/19 04/10/19 14:29 14:02 14:58 Wound Center Nurse 2 #3- L PLANTAR -Time 14:29 14:03 14:58 -Correct Patient Yes Yes Yes -Correct Side, Site, Position Yes Yes Yes -Correct Procedure Yes Yes Yes -Procedure Performed Yes Yes Yes -Type of Procedure Debridement Debridement Debridement -Clinical Debridement Subcutaneous Subcutaneous Subcutaneous -Post Debridement Size (cm) - Length 0.4 0.6 0.3 -Post Debridement Size (cm) - Width 0.5 0.5 0.3 -Post Debridement Size (cm) - Depth 0.2 0.2 0.2 -Total Square Cm 0.20 0.30 0.09 -Wound/Ulcer Outcome Not Healed Not Healed Not Healed -Ulcer Cleansing Rinsed/ Rinsed/ Rinsed/ Irrigated with Irrigated with Irrigated with Saline Saline Saline -Foul Odor after Cleansing No No No -Bioengineered Tissue No No No -Bleeding Controlled with Pressure Pressure Pressure -Offloading Yes Yes Yes -Type of Offloading Camwalker Camwalker Camwalker -Treatment Response Procedure Procedure Procedure Tolerated Well Tolerated Well Tolerated Well Pain Scale: 0-10 Numeric Is Patient Pain Free? Yes Yes Yes 04/17/19 14:54 Wound Center Nurse 2 #3- L PLANTAR -Time 14:59 -Correct Patient Yes -Correct Side, Site, Position Yes -Correct Procedure Yes -Procedure Performed Yes -Type of Procedure Debridement -Clinical Debridement Subcutaneous -Post Debridement Size (cm) - Length 0.6 -Post Debridement Size (cm) - Width 0.6 -Post Debridement Size (cm) - Depth 0.2 -Total Square Cm 0.36 -Wound/Ulcer Outcome Not Healed -Ulcer Cleansing Rinsed/ Irrigated with Saline -Foul Odor after Cleansing No -Bioengineered Tissue No -Bleeding Controlled with Pressure -Offloading Yes -Type of Offloading Camwalker -Treatment Response Procedure Tolerated Well Pain Scale: 0-10 Numeric Is Patient Pain Free? Yes Wound debrided: plantar lateral foot Laterality: Left Wound Grade/Stage: grade 1 Type of Debridement: Excisional debridement Anesthesia Used: 5% Lidocaine Gel Depth: in the subcutaneous layer Percentage of wound debrided: 100 Instrument Used: #15 blade Tissue Removed: fibrous, devitalized subcutaneous, biofilm, slough Severity: Fat Layer Exposed Amount of bleeding with debridement: Mild Bleeding Controlled with: Pressure Patient tolerated procedure well Assessment/Plan Active Problems Chronic 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 (Chronic) Other specified peripheral vascular diseases (Chronic) Type 2 diabetes mellitus with diabetic polyneuropathy (Chronic) Hammer toe of left foot (Chronic) Delayed wound healing (Chronic) Colonization status (Chronic) Assessment: Type 2 diabetes, uncontrolled with neuropathy, venous insufficiency, ulcer of left plantar foot stable, obesity, peripheral vascular disease, colonization Plan: I discussed his ongoing treatment recommendations. Excisional subcutaneous debridement was performed as noted in the clinical panel. To continue to change dressing daily with Antonieta. He was reassured no local signs of infection are noted today from a clinical standpoint. To continue offloading the ulcer site with a non pneumatic cam walker with dual density offloading pocket. A total contact cast can also be considered if blood flow continued better restored. His impaired ABIs noted. His cam walker with offloading pocket was evaluated today and still looks appropriate. He changes daily with hydrogel with collagen and overlying gauze and will now use antonieta. To resume nutritional supplementation. I recommended Glucerna and eating a well- balanced full food diet with appropriate and enough protein and vitamin C. His updated noninvasive vascular studies were reviewed as abnormal to the left lower extremity with an TRISH of approximately 0.5. I also ordered venous reflux studies to rule out venous insufficiency which confirmed abnoralities to the left lower extremity veins. He completed intervention with Dr. Shannon previously in August 2017. He has not followed up as advised and did not reschedule. To schedule this as advised. I recommend he follow-up with rescheduling for maintenance check. He understands he is at risk for delayed healing and limb loss. I answered all his questions. His laboratory work will be requested from the [facility]. The wound was also cultured to see if there are any abnormal or pathological amounts of bacterial growth which may be contributing to slower healing; aerobic and anaerobic. A foot x-ray was also ordered due to the chronicity of this ulcer. There are no acute fractures or dislocations subcutaneous emphysema. His culture also grew out staph and anaerobic cocci. There continues to be no overt obvious signs of local infection however this bacteria should not be growing in the ulcer site and is probably contributing to delayed healing. I recommend he wash his this daily with medical grade antimicrobial soap. This was dispensed previously. Antibiotic will be considered if lack of progress continues. To return to the wound healing center 1 week or call sooner if he has any questions or concerns. He is reassured no local signs of infection are noted. Answered his question s.
== END 2019-04-20 23:59 ==
LOC: WC 14:15
PROVIDERS: Family Provider Internal Medicine; PCP Internal Medicine; Referring Provider Podiatrist; Visit Provider Podiatrist
DX: E11.621 Type 2 diabetes mellitus with foot ulcer (principal); E11.42 Type 2 diabetes mellitus with diabetic polyneuropathy; L97.522 Non-pressure chronic ulcer of other part of 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; I87.2 Venous insufficiency (chronic) (peripheral); M20.42 Other hammer toe(s) (acquired), left foot; E66.9 Obesity, unspecified; Z71.3 Dietary counseling and surveillance
CPT/HCPCS: 11042; 87070; 87075; 87077; 87186; 87205

== ENCOUNTER 2019-05-15 13:30 | Outpatient (RCR) | payer BC, SELFPAY ==
[2019-04-21 00:43] VITALS: BP 168/62; PULSE 72; RESP 18; TEMP 36.9
[2019-04-24 15:03] VITALS: BP 147/77; PULSE 74; RESP 18; TEMP 36.8; BMI 48.6
--- NOTE | 2019-04-24 21:38 | PN.PCM_ITS ---
(1) Chronic 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 Status: Chronic Code(s): L97.522 - Non-pressure chronic ulcer of other part of 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 (2) Type 2 diabetes mellitus with diabetic polyneuropathy Status: Chronic Code(s): E11.42 - Type 2 diabetes mellitus with diabetic polyneuropathy (3) Delayed wound healing Status: Chronic Code(s): T14.8XXD - Other injury of unspecified body region, subsequent encounter (4) Malnutrition Status: Suspected Code(s): E46 - Unspecified protein-calorie malnutrition (5) Edema of left lower leg due to peripheral venous insufficiency Status: Chronic Code(s): I87.2 - Venous insufficiency (chronic) (peripheral); R60.9 - Edema, unspecified (6) Other specified peripheral vascular diseases Status: Chronic Code(s): I73.89 - Other specified peripheral vascular diseases Type of Wound Date of Service: 04/24/19 Chief Complaint: Left foot ulcer. new callous left History of Wound: This 58-year-old male with multiple comorbidities presents to the wound healing center for an ulcer to the left forefoot. He reports drainage and denies odor or redness. He had vascular surgery intervention performed previously in 2018; he missed his recommended follow up and has scheduled this now. He continues to use cam walker. he tries to walk on his heel and now has a callous. He asks for help safely trimming this site; he cannot perform this on his own. Progress of Wound: Stable - Physical Exam Vital Signs Temp Pulse Resp BP 98.2 F 74 18 147/77 H 04/24/19 15:03 04/24/19 15:03 04/24/19 15:03 04/24/19 15:03 General: Alert, Oriented x3, Cooperative, No apparent distress Extremities: No cyanosis, Capillary Refill Less than 3 Seconds, No Calf Tenderness, Diminished Peripheral Pulses - non palpable pt, left Skin: Ulcer/ Wound - no purlence, erythema, odor or infection. small reduction in ulcer size is noted, - - thin skin noted. callous central plantar heel without wound, infection, or foreign body Wound Measurements and Assessment WC - Nurse 1 - General Ulcer Measurement Start: 04/24/19 15:03 Freq: Status: Active Protocol: Activity Type Activity Date Activity User E-Sign Co-Sign Detail Recorded Client Recorded Date Recorded By Document 04/24/19 15:03 DL [id number] 04/24/19 15:09 DL 04/24/19 15:03 Wound Center Nurse 1 [Ulcer Assessment] #3- L PLANTAR -Current Size (cm) - Length 0.3 -Current Size (cm) - Width 0.3 -Current Size (cm) - Depth 0.2 -Total Square Cm 0.09 -Photo Taken No -Maximum Distance #2 (cm) 0.2 -Circular Undermining Yes -Exudate Amt None Present -Wound Margin Thickened -Granulation Amt Small (1-33%) -Granulation Quality Red -Necrosis Amt Small (1-33%) -Necrotic Tissue Type Adherent Slough -Structure Exposed N/A -Texture (Fiona-wound Skin Appearance) Callus -Moisture (Fiona-wound Skin Appearance Dry/Scaly ) -Color (Fiona-wound Skin Appearance) No Abnormality -Temperature (Fiona-wound Skin No Abnormality Appearance) (Pt Warm) -Ulcer Cleansing Rinsed/ Irrigated with Saline -Foul Odor after Cleansing No -Anesthetic Used 4% Lidocaine Solution WC - Nurse 2 - General Ulcer CM Notes Start: 04/24/19 15:03 Freq: Status: Active Protocol: Activity Type Activity Date Activity User E-Sign Co-Sign Detail Recorded Client Recorded Date Recorded By Document 04/24/19 15:33 [id number] 04/24/19 15:35 04/24/19 15:33 Wound Center Nurse 2 [Procedure/Treatment] -Time 15:34 -Correct Patient Yes -Correct Side, Site, Position Yes -Correct Procedure Yes -Procedure Performed Yes -Type of Procedure Debridement -Clinical Debridement Subcutaneous -Post Debridement Size (cm) - Length 0.4 -Post Debridement Size (cm) - Width 0.3 -Post Debridement Size (cm) - Depth 0.2 -Total Square Cm 0.12 -Wound/Ulcer Outcome Not Healed -Ulcer Cleansing Rinsed/ Irrigated with Saline -Foul Odor after Cleansing No -Bioengineered Tissue No -Bleeding Controlled with Pressure -Offloading Yes -Type of Offloading Surgical Shoe -Treatment Response Procedure Tolerated Well [See Physician Procedure note for Specifics] Pain Scale: 0-10 Numeric [Pain] -Is Patient Pain Free? Yes Musculoskeletal: No Tenderness to Palpation of Joints or Extremities, Muscle Wasting Neurological: - - lack of epicritic sensation via light touch noted Psych/Mental Status: Normal Affect, Appropriate Debridement Note Post-Debridement Measurements/Treatment WC - Nurse 2 - General Ulcer CM Notes Start: 04/24/19 15:03 Freq: Status: Active Protocol: Activity Type Activity Date Activity User E-Sign Co-Sign Detail Recorded Client Recorded Date Recorded By Document 04/24/19 15:33 [id number] 04/24/19 15:35 REID 04/24/19 15:33 Wound Center Nurse 2 #3- L PLANTAR -Time 15:34 -Correct Patient Yes -Correct Side, Site, Position Yes -Correct Procedure Yes -Procedure Performed Yes -Type of Procedure Debridement -Clinical Debridement Subcutaneous -Post Debridement Size (cm) - Length 0.4 -Post Debridement Size (cm) - Width 0.3 -Post Debridement Size (cm) - Depth 0.2 -Total Square Cm 0.12 -Wound/Ulcer Outcome Not Healed -Ulcer Cleansing Rinsed/ Irrigated with Saline -Foul Odor after Cleansing No -Bioengineered Tissue No -Bleeding Controlled with Pressure -Offloading Yes -Type of Offloading Surgical Shoe -Treatment Response Procedure Tolerated Well Pain Scale: 0-10 Numeric Is Patient Pain Free? Yes Wound debrided: sub metatarsal head Wound Grade/Stage: grade 1 Type of Debridement: Excisional debridement Anesthesia Used: 5% Lidocaine Gel Depth: in the subcutaneous layer Percentage of wound debrided: 100 Instrument Used: #15 blade Tissue Removed: fibrous, devitalized subcutaneous, biofilm, slough Severity: Fat Layer Exposed Amount of bleeding with debridement: Mild Bleeding Controlled with: Pressure Patient tolerated procedure well Assessment/Plan Assessment: Type 2 diabetes, uncontrolled with neuropathy, venous insufficiency, ulcer of left plantar foot stable, obesity, peripheral vascular disease, colonization Plan: I discussed his ongoing treatment recommendations. Excisional subcutaneous debridement was performed as noted in the clinical panel. To continue to change dressing daily with Alona. He was reassured no local signs of infection are noted today from a clinical standpoint. To continue offloading the ulcer site with a non pneumatic cam walker with dual density offloading pocket. A total contact cast can also be considered if blood flow continued better restored. His impaired ABIs noted. His cam walker with offloading pocket was evaluated today and still looks appropriate. He changes daily with hydrogel with collagen and overlying gauze and will now use alona. To resume nutritional supplementation. I recommended Glucerna and eating a well- balanced full food diet with appropriate and enough protein and vitamin C. His updated noninvasive vascular studies were reviewed as abnormal to the left lower extremity with an TRISH of approximately 0.5. I also ordered venous reflux studies to rule out venous insufficiency which confirmed abnoralities to the left lower extremity veins. He completed intervention with Dr. Shannon previously in August 2017. This has been rescheduled. I recommend he follow-up with rescheduling for maintenance check. He understands he is at risk for delayed healing and limb loss. I answered all his questions. A previous foot x-ray was also ordered due to the chronicity of this ulcer. There are no acute fractures or dislocations subcutaneous emphysema. His culture also grew out staph and anaerobic cocci. There continues to be no overt obvious signs of local infection however this bacteria should not be growing in the ulcer site and is probably contributing to delayed healing. I recommend he wash his this daily with medical grade antimicrobial soap. This was dispensed previously. Antibiotic will be considered if lack of progress continues. His callous was debrided with a 15 blade to exice heel callous (Pre ulcer site) without incident. He tolerated this well. verbal consent was obtained. He was reassured no ulcer or infection is noted to the heel. To return to the wound healing center 1 week or call sooner if he has any questions or concerns. He is reassured no local signs of infection are noted. Answered his questions.
[2019-05-01 14:44] VITALS: BP 156/62; PULSE 58; RESP 18; TEMP 36.7; BMI 48.6
--- NOTE | 2019-05-01 15:29 | PN.PCM_ITS ---
(1) Chronic 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 Status: Chronic Current Visit: Yes Code(s): L97.522 - Non-pressure chronic ulcer of other part of 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 (2) Type 2 diabetes mellitus with diabetic polyneuropathy Status: Chronic Current Visit: Yes Code(s): E11.42 - Type 2 diabetes mellitus with diabetic polyneuropathy (3) Delayed wound healing Status: Chronic Current Visit: Yes Code(s): T14.8XXD - Other injury of unspecified body region, subsequent encounter (4) Malnutrition Status: Suspected Current Visit: Yes Code(s): E46 - Unspecified protein- calorie malnutrition (5) Edema of left lower leg due to peripheral venous insufficiency Status: Chronic Current Visit: Yes Code(s): I87.2 - Venous insufficiency (chronic) (peripheral); R60.9 - Edema, unspecified (6) Other specified peripheral vascular diseases Status: Chronic Current Visit: Yes Code(s): I73.89 - Other specified peripheral vascular diseases Type of Wound Date of Service: 05/01/19 Chief Complaint: Left foot ulcer History of Wound: This 59-year-old male with multiple comorbidities presents to the wound healing center for an ulcer to the left forefoot. He reports drainage and denies odor or redness. He had vascular surgery intervention performed previously in 2018; he missed his recommended follow up and has schedu led this now. He continues to use cam walker. Progress of Wound: Stable - Physical Exam Vital Signs Temp Pulse Resp BP 98.1 F 58 L 18 156/62 H 05/01/19 14:44 05/01/19 14:44 05/01/19 14:44 05/01/19 14:44 General: Alert, Oriented x3, Cooperative Extremities: No cyanosis, Capillary Refill Less than 3 Seconds, No Calf Tenderness, Diminished Peripheral Pulses, Edema Skin: Ulcer/ Wound - No purulence, erythema, streaking, odor, infection. The skin is atrophic and hairless. Wound Measurements and Assessment WC - Nurse 1 - General Ulcer Measurement Start: 04/24/19 15:03 Freq: Status: Active Protocol: Activity Type Activity Date Activity User E-Sign Co-Sign Detail Recorded Client Recorded Date Recorded By Document 05/01/19 14:44 DV [id number] 05/01/19 14:48 DV 05/01/19 14:44 Wound Center Nurse 1 [Ulcer Assessment] #3- L PLANTAR -Combined with other wound No -Current Size (cm) - Length 0.4 -Current Size (cm) - Width 0.4 -Current Size (cm) - Depth 0.1 -Total Square Cm 0.16 -Photo Taken No -Epithelialization None Present -Tunneling No -Undermining/Tunneling No -Circular Undermining No -Classification - Thickness Full Thickness without Exposed Support Structure -Exudate Amt None Present -Wound Margin Flat & Intact -Granulation Amt None Present (0 %) -Granulation Quality N/A -Slough/Fibrin No -Necrosis Amt None Present (0 %) -Structure Exposed None/Limited to Skin Breakdown -Texture (Fiona-wound Skin Appearance) Assessed, Scarring -Moisture (Fiona-wound Skin Appearance Assessed,Dry/ ) Scaly -Color (Fiona-wound Skin Appearance) No Abnormality, Assessed -Temperature (Fiona-wound Skin No Abnormality Appearance) (Pt Warm) -Tenderness on Palpation (Fiona-wound No Skin Appearance) -Ulcer Cleansing Rinsed/ Irrigated with Saline -Foul Odor after Cleansing No -Anesthetic Used 4% Lidocaine Solution WC - Nurse 2 - General Ulcer CM Notes Start: 04/24/19 15:03 Freq: Status: Active Protocol: Activity Type Activity Date Activity User E-Sign Co-Sign Detail Recorded Client Recorded Date Recorded By Document 05/01/19 15:10 REID [id number] 05/01/19 15:11 REID 05/01/19 15:10 Wound Center Nurse 2 [Procedure/Treatment] -Time 15:11 -Correct Patient Yes -Correct Side, Site, Position Yes -Correct Procedure Yes -Procedure Performed Yes -Type of Procedure Debridement -Clinical Debridement Subcutaneous -Post Debridement Size (cm) - Length 0.3 -Post Debridement Size (cm) - Width 0.3 -Post Debridement Size (cm) - Depth 0.1 -Total Square Cm 0.09 -Wound/Ulcer Outcome Not Healed -Ulcer Cleansing Rinsed/ Irrigated with Saline -Foul Odor after Cleansing No -Bioengineered Tissue No -Bleeding Controlled with Pressure -Offloading Yes -Type of Offloading Camwalker -Treatment Response Procedure Tolerated Well [See Physician Procedure note for Specifics] Pain Scale: 0-10 Numeric [Pain] -Is Patient Pain Free? Yes Musculoskeletal: No Tenderness to Palpation of Joints or Extremities, Muscle Wasting Neurological: - - Lack of normal epicritic sensation light touch Psych/Mental Status: Normal Affect, Appropriate Debridement Note Post-Debridement Measurements/Treatment WC - Nurse 2 - General Ulcer CM Notes Start: 04/24/19 15:03 Freq: Status: Active Protocol: Activity Type Activity Date Activity User E-Sign Co-Sign Detail Recorded Client Recorded Date Recorded By Document 04/24/19 15:33 [id number] 04/24/19 15:35 Document 05/01/19 15:10 [id number] 05/01/19 15:11 04/24/19 05/01/19 15:33 15:10 Wound Center Nurse 2 #3- L PLANTAR -Time 15:34 15:11 -Correct Patient Yes Yes -Correct Side, Site, Position Yes Yes -Correct Procedure Yes Yes -Procedure Performed Yes Yes -Type of Procedure Debridement Debridement -Clinical Debridement Subcutaneous Subcutaneous -Post Debridement Size (cm) - Length 0.4 0.3 -Post Debridement Size (cm) - Width 0.3 0.3 -Post Debridement Size (cm) - Depth 0.2 0.1 -Total Square Cm 0.12 0.09 -Wound/Ulcer Outcome Not Healed Not Healed -Ulcer Cleansing Rinsed/ Rinsed/ Irrigated with Irrigated with Saline Saline -Foul Odor after Cleansing No No -Bioengineered Tissue No No -Bleeding Controlled with Pressure Pressure -Offloading Yes Yes -Type of Offloading Surgical Shoe Camwalker -Treatment Response Procedure Procedure Tolerated Well Tolerated Well Pain Scale: 0-10 Numeric Is Patient Pain Free? Yes Yes Wound debrided: sub metatarsal head Laterality: Left Type of Debridement: Excisional debridement Anesthesia Used: 5% Lidocaine Gel Depth: in the subcutaneous layer Percentage of wound debrided: 100 Instrument Used: #15 blade Tissue Removed: fibrous, devitalized subcutaneous, biofilm, slough Severity: Fat Layer Exposed Amount of bleeding with debridement: Mild Bleeding Controlled with: Pressure Patient tolerated procedure well Assessment/Plan Active Problems Chronic 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 (Chronic) Edema of left lower leg due to peripheral venous insufficiency (Chronic) Other specified peripheral vascular diseases (Chronic) Type 2 diabetes mellitus with diabetic polyneuropathy (Chronic) Delayed wound healing (Chronic) Assessment: Type 2 diabetes, uncontrolled with neuropathy, venous insufficiency, ulcer of left plantar foot stable, obesity, peripheral vascular disease, colo nization Plan: I discussed his ongoing treatment recommendations. Excisional subcutaneous debridement was performed as noted in the clinical panel. To continue to change dressing daily with Alona. He was reassured no local signs of infection are noted today from a clinical standpoint. To continue offloading the ulcer site with a non pneumatic cam walker with dual density offloading pocket. A total contact cast can also be considered if blood flow continued better restored. His impaired ABIs noted. His cam walker with offloading pocket was evaluated today and still looks appropriate. He changes daily with hydrogel with collagen and overlying gauze and will now use alona. To resume nutritional supplementation. I recommended Glucerna and eating a well- balanced full food diet with appropriate and enough protein and vitamin C. His updated noninvasive vascular studies were reviewed as abnormal to the left lower extremity with an TRISH of approximately 0.5. I also ordered venous reflux studies to rule out venous insufficiency which confirmed abnoralities to the left lower extremity veins. He completed intervention with Dr. Shannon previously in August 2017. This has been rescheduled. I recommend he follow-up with rescheduling for maintenance check. He understands he is at risk for delayed healing and limb loss. I answered all his questions. A previous foot x-ray was also ordered due to the chronicity of this ulcer. There are no acute fractures or dislocations subcutaneous emphysema. His culture also grew out staph and anaerobic cocci. There continues to be no overt obvious signs of local infection however this bacteria should not be growing in the ulcer site and is probably contributing to delayed healing. I recommend he wash his this daily with medical grade antimicrobial soap. This was dispensed previously. Antibiotic will be considered if lack of progress continues. His callous was debrided with a 15 blade to exice heel callous (Pre ulcer site) without incident. He tolerated this well. verbal consent was obtained. He was reassured no ulcer or infection is noted to the heel. To return to the wound healing center 1 week or call sooner if he has any questions or concerns. He is reassured no local signs of infection are noted. I answered his questions.
[2019-05-08 14:03] VITALS: BP 170/67; PULSE 78; RESP 18; TEMP 36.9; BMI 48.6
--- NOTE | 2019-05-08 14:48 | PCM.WC.PN ---
(1) Chronic 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 Status: Chronic Code(s): L97.522 - Non-pressure chronic ulcer of other part of 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 (2) Type 2 diabetes mellitus with diabetic polyneuropathy Status: Chronic Code(s): E11.42 - Type 2 diabetes mellitus with diabetic polyneuropathy (3) Delayed wound healing Status: Chronic Code(s): T14.8XXD - Other injury of unspecified body region, subsequent encounter (4) Malnutrition Status: Suspected Code(s): E46 - Unspecified protein-calorie malnutrition (5) Edema of left lower leg due to peripheral venous insufficiency Status: Chronic Code(s): I87.2 - Venous insufficiency (chronic) (peripheral); R60.9 - Edema, unspecified (6) Other specified peripheral vascular diseases Status: Chronic Code(s): I73.89 - Other specified peripheral vascular diseases Type of Wound Date of Service: 05/08/19 Chief Complaint: Left foot ulcer History of Wound: This 59-year-old male with multiple comorbidities presents to the wound healing center for an ulcer to the left forefoot. He reports drainage and denies odor or redness. He had vascular surgery intervention performed previously in 2018; he missed his recommended follow up and has scheduled this now (early May 2019). He continues to use cam walker. Progress of Wound: improving - Physical Exam Vital Signs Temp Pulse Resp BP 98.5 F 78 18 170/67 H 05/08/19 14:03 05/08/19 14:03 05/08/19 14:03 05/08/19 14:03 General: Alert, Oriented x3, Cooperative, No apparent distress Extremities: No cyanosis, Capillary Refill Less than 3 Seconds, No Calf Tenderness, Diminished Peripheral Pulses, Edema Skin: Ulcer/ Wound - No purulence, erythema, streaking, odor, infection. Peripheral skin is hairless and atrophic. There is no deep tissue exposure noted or necrosis Wound Measurements and Assessment WC - Nurse 1 - General Ulcer Measurement Start: 04/24/19 15:03 Freq: Status: Active Protocol: Activity Type Activity Date Activity User E-Sign Co-Sign Detail Recorded Client Recorded Date Recorded By Document 05/08/19 14:03 RB [id number] 05/08/19 14:09 RB 05/08/19 14:03 Wound Center Nurse 1 [Ulcer Assessment] #3- L PLANTAR -Combined with other wound No -Current Size (cm) - Length 0.5 -Current Size (cm) - Width 0.3 -Current Size (cm) - Depth 0.3 -Total Square Cm 0.15 -Tunneling No -Undermining/Tunneling No -Circular Undermining No -Exudate Amt Small -Exudate Type Serosanguineous -Wound Margin Thickened -Granulation Amt Medium (34-66%) -Granulation Quality [place],Red -Slough/Fibrin Yes -Necrosis Amt Small (1-33%) -Necrotic Tissue Type Adherent Slough -Structure Exposed N/A -Texture (Fiona-wound Skin Appearance) Callus -Moisture (Fiona-wound Skin Appearance Assessed ) -Color (Fiona-wound Skin Appearance) Assessed -Temperature (Fiona-wound Skin No Abnormality Appearance) (Pt Warm) -Tenderness on Palpation (Fiona-wound No Skin Appearance) -Ulcer Cleansing Wound Cleanser -Foul Odor after Cleansing No -Anesthetic Used 5% Lidocaine Gel WC - Nurse 2 - General Ulcer CM Notes Start: 04/24/19 15:03 Freq: Status: Active Protocol: Activity Type Activity Date Activity User E-Sign Co-Sign Detail Recorded Client Recorded Date Recorded By Document 05/08/19 14:17 JF [id number] 05/08/19 14:19 05/08/19 14:17 Wound Center Nurse 2 [Procedure/Treatment] -Time 14:18 -Correct Patient Yes -Correct Side, Site, Position Yes -Correct Procedure Yes -Procedure Performed Yes -Type of Procedure Debridement -Clinical Debridement Subcutaneous -Post Debridement Size (cm) - Length 0.5 -Post Debridement Size (cm) - Width 0.2 -Post Debridement Size (cm) - Depth 0.2 -Total Square Cm 0.10 -Wound/Ulcer Outcome Not Healed -Ulcer Cleansing Rinsed/ Irrigated with Saline -Foul Odor after Cleansing No -Bioengineered Tissue No -Bleeding Controlled with Pressure -Offloading Yes -Type of Offloading Camwalker -Treatment Response Procedure Tolerated Well [See Physician Procedure note for Specifics] Pain Scale: 0-10 Numeric [Pain] -Is Patient Pain Free? Yes Musculoskeletal: No Tenderness to Palpation of Joints or Extremities, Muscle Wasting, - - Prominent metatarsal head Neurological: - - Lack of normal epicritic sensation light touch Psych/Mental Status: Normal Affect, Appropriate Debridement Note Post-Debridement Measurements/Treatment WC - Nurse 2 - General Ulcer CM Notes Start: 04/24/19 15:03 Freq: Status: Active Protocol: Activity Type Activity Date Activity User E-Sign Co-Sign Detail Recorded Client Recorded Date Recorded By Document 04/24/19 15:33 [id number] 04/24/19 15:35 Document 05/01/19 15:10 [id number] 05/01/19 15:11 Document 05/08/19 14:17 [id number] 05/08/19 14:19 04/24/19 05/01/19 05/08/19 15:33 15:10 14:17 Wound Center Nurse 2 #3- L PLANTAR -Time 15:34 15:11 14:18 -Correct Patient Yes Yes Yes -Correct Side, Site, Position Yes Yes Yes -Correct Procedure Yes Yes Yes -Procedure Performed Yes Yes Yes -Type of Procedure Debridement Debridement Debridement -Clinical Debridement Subcutaneous Subcutaneous Subcutaneous -Post Debridement Size (cm) - Length 0.4 0.3 0.5 -Post Debridement Size (cm) - Width 0.3 0.3 0.2 -Post Debridement Size (cm) - Depth 0.2 0.1 0.2 -Total Square Cm 0.12 0.09 0.10 -Wound/Ulcer Outcome Not Healed Not Healed Not Healed -Ulcer Cleansing Rinsed/ Rinsed/ Rinsed/ Irrigated with Irrigated with Irrigated with Saline Saline Saline -Foul Odor after Cleansing No No No -Bioengineered Tissue No No No -Bleeding Controlled with Pressure Pressure Pressure -Offloading Yes Yes Yes -Type of Offloading Surgical Shoe Camwalker Camwalker -Treatment Response Procedure Procedure Procedure Tolerated Well Tolerated Well Tolerated Well Pain Scale: 0-10 Numeric Is Patient Pain Free? Yes Yes Yes Wound debrided: plantar forefoot Laterality: Left Wound Grade/Stage: grade 1 Type of Debridement: Excisional debridement Anesthesia Used: 5% Lidocaine Gel Depth: in the subcutaneous layer Percentage of wound debrided: 100 Instrument Used: #15 blade Tissue Removed: fibrous, devitalized subcutaneous, biofilm, slough Severity: Fat Layer Exposed Amount of bleeding with debridement: Mild Bleeding Controlled with: Pressure Patient tolerated procedure well Assessment/Plan Active Problems Chronic 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 (Chronic) Edema of left lower leg due to peripheral venous insufficiency (Chronic) Other specified peripheral vascular diseases (Chronic) Type 2 diabetes mellitus with diabetic polyneuropathy (Chronic) Delayed wound healing (Chronic) Assessment: Type 2 diabetes, uncontrolled with neuropathy, venous insufficiency, ulcer of left plantar foot stable, obesity, peripheral vascular disease, colonization Plan: I discussed his ongoing treatment recommendations. Excisional subcutaneous debridement was performed as noted in the clinical panel. To continue to change dressing da takes micah with Alona. He was reassured no local signs of infection are noted today from a clinical standpoint. To continue offloading the ulcer site with a non pneumatic cam walker with dual density offloading pocket. A total contact cast can also be considered if blood flow continued better restored. His impaired ABIs noted. His cam walker with offloading pocket was evaluated today and still looks appropriate. He changes daily with hydrogel with collagen and overlying gauze and will now use alona. To resume nutritional supplementation. I recommended Glucerna and eating a well-balanced full food diet with appropriate and enough protein and vitamin C. His updated noninvasive vascular studies were reviewed as abnormal to the left lower extremity with an TRISH of approximately 0.5. I also ordered venous reflux studies to rule out venous insufficiency which confirmed abnoralities to the left lower extremity veins. He completed intervention with Dr. Shannon previously in August 2017. This has been rescheduled for early May 2019. I recommend he follow-up with rescheduling for maintenance check. He understands he is at risk for delayed healing and limb loss. I answered all his questions. A previous foot x-ray was also ordered due to the chronicity of this ulcer. There are no acute fractures or dislocations subcutaneous emphysema. His culture also grew out staph and anaerobic cocci. There continues to be no overt obvious signs of local infection however this bacteria should not be growing in the ulcer site and is probably contributing to delayed healing. I recommend he wash his this daily with medical grade antimicrobial soap. This was dispensed previously. Antibiotic will be considered if lack of progress continues. To return to the wound healing center 1 week or call sooner if he has any questions or concerns. He is reassured no local signs of infection are noted. I answered his questions.
[2019-05-15 13:46] VITALS: BP 154/67; PULSE 66; RESP 18; TEMP 38.4; BMI 48.6
--- NOTE | 2019-05-15 15:54 | PN.PCM_ITS ---
(1) Chronic 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 Status: Chronic Current Visit: Yes Code(s): L97.522 - Non-pressure chronic ulcer of other part of 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 (2) Type 2 diabetes mellitus with diabetic polyneuropathy Status: Chronic Current Visit: Yes Code(s): E11.42 - Type 2 diabetes mellitus with diabetic polyneuropathy (3) Delayed wound healing Status: Chronic Current Visit: Yes Code(s): T14.8XXD - Other injury of unspecified body region, subsequent encounter (4) Malnutrition Status: Suspected Current Visit: Yes Code(s): E46 - Unspecified protein- calorie malnutrition (5) Edema of left lower leg due to peripheral venous insufficiency Status: Chronic Current Visit: Yes Code(s): I87.2 - Venous insufficiency (chronic) (peripheral); R60.9 - Edema, unspecified (6) Other specified peripheral vascular diseases Status: Chronic Current Visit: Yes Code(s): I73.89 - Other specified peripheral vascular diseases Type of Wound Date of Service: 05/15/19 Chief Complaint: Left foot ulcer History of Wound: This 59-year-old male with multiple comorbidities presents to the wound healing center for an ulcer to the left forefoot. He reports drainage and denies odor or redness. He had vascular surgery intervention performed previously in 2018; he missed his recommended follow up and has schedu led this now (early May 2019). He continues to use cam walker. He denies fever, chill, nausea, vomiting, loss of appetite, or respiratory symptoms, or cough. However upon presentation to clinic he does have a fever and this was checked on 2 occasions. He was asked to wear a mask and PPE precautions were taken per hospital protocol during this coronavirus pandemic time. Progress of Wound: improving - Physical Exam Vital Signs Temp Pulse Resp BP 101.2 F H 66 18 154/67 H 05/15/19 13:46 05/15/19 13:46 05/15/19 13:46 05/15/19 13:46 General: Alert, Oriented x3, Cooperative, No apparent distress Extremities: No cyanosis, Capillary Refill Less than 3 Seconds, No Calf Tenderness, Diminished Peripheral Pulses, Edema Skin: Ulcer/ Wound - No purulence, erythema, streaking, odor, infection. The ulcer bed is granular. The peripheral skin is hairless and atrophic. Wound Measurements and Assessment WC - Nurse 1 - General Ulcer Measurement Start: 04/24/19 15:03 Freq: Status: Active Protocol: Activity Type Activity Date Activity User E-Sign Co-Sign Detail Recorded Client Recorded Date Recorded By Document 05/15/19 13:46 RANCHO [id number] 05/15/19 13:59 DL 05/15/19 13:46 Wound Center Nurse 1 [Ulcer Assessment] #3- L PLANTAR -Current Size (cm) - Length 0.2 -Current Size (cm) - Width 0.2 -Current Size (cm) - Depth 0.2 -Total Square Cm 0.04 -Photo Taken No -Maximum Distance #2 (cm) 0.3 -Circular Undermining Yes -Exudate Amt Small -Exudate Type Sanguineous -Wound Margin Thickened -Granulation Amt Small (1-33%) -Granulation Quality Pale,[place] -Necrosis Amt Small (1-33%) -Necrotic Tissue Type Adherent Slough -Structure Exposed N/A -Texture (Fiona-wound Skin Appearance) Callus -Moisture (Fiona-wound Skin Appearance Dry/Scaly ) -Color (Fiona-wound Skin Appearance) No Abnormality -Temperature (Fiona-wound Skin No Abnormality Appearance) (Pt Warm) -Tenderness on Palpation (Fiona-wound No Skin Appearance) -Ulcer Cleansing Wound Cleanser -Foul Odor after Cleansing No -Anesthetic Used 4% Lidocaine Solution - Nurse 2 - General Ulcer CM Notes Start: 04/24/19 15:03 Freq: Status: Active Protocol: Activity Type Activity Date Activity User E-Sign Co-Sign Detail Recorded Client Recorded Date Recorded By Document 05/15/19 14:03 RANCHO [id number] 05/15/19 14:04 Document 05/15/19 14:05 [id number] 05/15/19 14:06 05/15/19 05/15/19 14:03 14:05 Wound Center Nurse 2 [Procedure/Treatment] #3- L PLANTAR -Time 14:04 14:05 -Correct Patient Yes Yes -Correct Side, Site, Position Yes Yes -Correct Procedure Yes Yes -Procedure Performed Yes Yes -Type of Procedure Debridement Debridement -Clinical Debridement Subcutaneous Subcutaneous -Post Debridement Size (cm) - Length 0.3 0.3 -Post Debridement Size (cm) - Width 0.3 0.3 -Post Debridement Size (cm) - Depth 0.1 0.1 -Total Square Cm 0.09 0.09 -Wound/Ulcer Outcome Not Healed Not Healed -Ulcer Cleansing Rinsed/ Rinsed/ Irrigated with Irrigated with Saline Saline -Foul Odor after Cleansing No No -Bioengineered Tissue No No -Bleeding Controlled with Pressure Pressure -Offloading Yes -Type of Offloading Camwalker -Treatment Response Procedure Tolerated Well [See Physician Procedure note for Specifics] Pain Scale: 0-10 Numeric [Pain] -Is Patient Pain Free? Yes Musculoskeletal: No Tenderness to Palpation of Joints or Extremities, Muscle Wasting Neurological: - - Lack of epicritic sensation light touch is consistent with neuropathy status Psych/Mental Status: Normal Affect, Appropriate Debridement Note Post-Debridement Measurements/Treatment WC - Nurse 2 - General Ulcer CM Notes Start: 04/24/19 15:03 Freq: Status: Active Protocol: Activity Type Activity Date Activity User E-Sign Co-Sign Detail Recorded Client Recorded Date Recorded By Document 04/24/19 15:33 [id number] 04/24/19 15:35 Document 05/01/19 15:10 [id number] 05/01/19 15:11 Document 05/08/19 14:17 [id number] 05/08/19 14:19 JF Document 05/15/19 14:03 DL [id number] 05/15/19 14:04 DL Document 05/15/19 14:05 [id number] 05/15/19 14:06 04/24/19 05/01/19 05/08/19 15:33 15:10 14:17 Wound Center Nurse 2 #3- L PLANTAR -Time 15:34 15:11 14:18 -Correct Patient Yes Yes Yes -Correct Side, Site, Position Yes Yes Yes -Correct Procedure Yes Yes Yes -Procedure Performed Yes Yes Yes -Type of Procedure Debridement Debridement Debridement -Clinical Debridement Subcutaneous Subcutaneous Subcutaneous -Post Debridement Size (cm) - Length 0.4 0.3 0.5 -Post Debridement Size (cm) - Width 0.3 0.3 0.2 -Post Debridement Size (cm) - Depth 0.2 0.1 0.2 -Total Square Cm 0.12 0.09 0.10 -Wound/Ulcer Outcome Not Healed Not Healed Not Healed -Ulcer Cleansing Rinsed/ Rinsed/ Rinsed/ Irrigated with Irrigated with Irrigated with Saline Saline Saline -Foul Odor after Cleansing No No No -Bioengineered Tissue No No No -Bleeding Controlled with Pressure Pressure Pressure -Offloading Yes Yes Yes -Type of Offloading Surgical Shoe Camwalker Camwalker -Treatment Response Procedure Procedure Procedure Tolerated Well Tolerated Well Tolerated Well Pain Scale: 0-10 Numeric Is Patient Pain Free? Yes Yes Yes 05/15/19 05/15/19 14:03 14:05 Wound Center Nurse 2 #3- L PLANTAR -Time 14:04 14:05 -Correct Patient Yes Yes -Correct Side, Site, Position Yes Yes -Correct Procedure Yes Yes -Procedure Performed Yes Yes -Type of Procedure Debridement Debridement -Clinical Debridement Subcutaneous Subcutaneous -Post Debridement Size (cm) - Length 0.3 0.3 -Post Debridement Size (cm) - Width 0.3 0.3 -Post Debridement Size (cm) - Depth 0.1 0.1 -Total Square Cm 0.09 0.09 -Wound/Ulcer Outcome Not Healed Not Healed -Ulcer Cleansing Rinsed/ Rinsed/ Irrigated with Irrigated with Saline Saline -Foul Odor after Cleansing No No -Bioengineered Tissue No No -Bleeding Controlled with Pressure Pressure -Offloading Yes -Type of Offloading Camwalker -Treatment Response Procedure Tolerated Well Pain Scale: 0-10 Numeric Is Patient Pain Free? Yes Wound debrided: plantar foot Laterality: Left Wound Grade/Stage: grade 1 Type of Debridement: Excisional debridement Anesthesia Used: 5% Lidocaine Gel Depth: in the subcutaneous layer Percentage of wound debrided: 100 Instrument Used: #15 blade Tissue Removed: fibrous, devitalized subcutaneous, biofilm, slough Severity: Fat Layer Exposed Amount of bleeding with debridement: Mild Bleeding Controlled with: Pressure Patient tolerated procedure well Assessment/Plan Active Problems Chronic 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 (Chronic) Edema of left lower leg due to peripheral venous insufficiency (Chronic) Other specified peripheral vascular diseases (Chronic) Type 2 diabetes mellitus with diabetic polyneuropathy (Chronic) Delayed wound healing (Chronic) Assessment: Type 2 diabetes, uncontrolled with neuropathy, venous insufficiency, ulcer of left plantar foot stable, obesity, peripheral vascular disease, colonization Plan: I discussed his ongoing treatment recommendations. Excisional subcutaneous debridement was performed as noted in the clinical panel. To continue to change dressing changes daily with Alona. He was reassured no local signs of infection are noted today from a clinical standpoint. To continue offloading the ulcer site with a non pneumatic cam walker with dual density offloading pocket. A total contact cast can also be considered if blood flow continued better restored. His impaired ABIs noted. His cam walker with offloading pocket was evaluated today and still looks appropriate. He changes daily with hydrogel with collagen and overlying gauze and will now use alona. To resume nutritional supplementation. I recommended Glucerna and eating a well-balanced full food diet with appropriate and enough protein and vitamin C. His updated noninvasive vascular studies were reviewed as abnormal to the left lower extremity with an TRISH of approximately 0.5. I also ordered venous reflux studies to rule out venous insufficiency which confirmed abnoralities to the left lower extremity veins. He completed intervention with Dr. Shannon previously in August 2017. This has been rescheduled for early May 2019. I recommend he follow-up with rescheduling for maintenance check. He understands he is at risk for delayed healing and limb loss. I answered all his questions. A previous foot x-ray was also ordered due to the chronicity of this ulcer. There are no acute fractures or dislocations subcutaneous emphysema. His culture also grew out staph and anaerobic cocci. There continues to be no overt obvious signs of local infection however this bacteria should not be growing in the ulcer site and is probably contributing to delayed healing. I recommend he wash his this daily with medical grade antimicrobial soap. The quality of the ulcer bed looks improved today. His fever is noted and I recommend he follows up with his primary care physician for this. He was reassured there are no local signs of infection in his foot. Per local guidelines, he was advised to return home per social distancing. To return to the wound healing center 1 week or call sooner if he has any questions or concerns. I answered his questions.
== END 2019-05-21 23:59 ==
LOC: WC 13:30
PROVIDERS: Family Provider Internal Medicine; PCP Internal Medicine; Referring Provider Podiatrist; Visit Provider Podiatrist
DX: E11.621 Type 2 diabetes mellitus with foot ulcer (principal); E11.42 Type 2 diabetes mellitus with diabetic polyneuropathy; L97.522 Non-pressure chronic ulcer of other part of 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; R60.0 Localized edema; I87.2 Venous insufficiency (chronic) (peripheral); E11.51 Type 2 diabetes mellitus with diabetic peripheral angiopathy without gangrene; E66.9 Obesity, unspecified; Z68.42 Body mass index [BMI] 45.0-49.9, adult; Z71.3 Dietary counseling and surveillance
CPT/HCPCS: 11042

== ENCOUNTER 2019-06-12 06:42 | Day surgery (SDC) | payer OTHER, SELFPAY ==
[2019-05-22 14:51] VITALS: BMI 48.6
[2019-06-05 11:22] VITALS: BMI 48.6
[2019-06-11 13:38] VITALS: BMI 50.1
[2019-06-12 07:55] LABS: Hematocrit 34.6 % (40-54); Hemoglobin 11.3 g/dL (13.0-16.5); Mean Corp Hgb Conc 32.7 g/dL (32-36); Mean Corpuscular Hgb 28.9 pg (27.0-32.0); Mean Corpuscular Volume 88.5 fL (80-94); Mean Platelet Vol. 10.3 fl (6.2-12.0); Platelet Count 205 K/mm3 (150-450); RBC Distribution Width CV 13.9 % (11.6-14.6); RBC Distribution Width SD 44.3 fl (35.1-43.9); Red Blood Count 3.91 M/mm3 (4.6-6.2); White Blood Count 10.7 K/mm3 (4.4-11.0)
[2019-06-12 08:03] LABS: International Normalized Ratio 1.2; Prothrombin Time (Protime)PT. 14.6 SECONDS (11.7-14.9)
[2019-06-12 08:10] LABS: Albumin, Serum 3.5 g/dL (3.2-5.0); BUN 55 mg/dL (7-18); BUN/Creat Ratio 16.7 RATIO (10-20); Calcium,Total 8.9 mg/dL (8.5-10.1); Chloride 110 mmol/L (98-107); Creatinine, Serum 3.29 mg/dL (0.70-1.30); EST Glomerular Filtration Rate 21 mL/min (>60); Est Glom Filt Rate - Afr Amer 25 mL/min (>60); Estimated Creatinine Clearance 23.68 ml/min; Glucose 150 mg/dL (74-106); Phosphorus 4.5 mg/dL (2.5-4.9); Potassium 4.6 mmol/L (3.5-5.1); Sodium Level 143 mmol/L (136-145)
--- NOTE | 2019-06-12 08:53 | PCM.OPRPT ---
Problem List (1) Chronic 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 Status: Chronic Report of Operation Date of Procedure: 06/12/19 Pre-Operative Diagnosis: PAD with left leg nonhealing wounds Post-Operative Diagnosis: Same Surgery/Procedure Performed:: 1. Ultrasound-guided access retrograde right common femoral artery. 2. Left lower extremity angiogram with catheter placed into the peroneal artery for third order cannulation. 3. Balloon angioplasty of the left popliteal through the tibioperoneal trunk and into the peroneal with a 3 x 120 balloon. 4. Closure with Star close Type of Anesthesia:: Sedation,Conscious - DDD Description of Procedure: Patient brought to the operating room. Underwent appropriate timeout consent. Underwent sedation. Was prepped and draped in a sterile fashion. We did ultrasound-guided access retrograde right common femoral artery put a Glidewire up in a 5 [place] sheath. We gave 5000 units of heparin. We got up and over the bifurcation did an angiogram from the left external iliac artery. This showed the common femoral artery, profunda, femoral artery widely patent. We then put the Glidewire and quick cross catheter down the femoral artery and imaged from there. Showed some mild narrowing in the popliteal but otherwise widely patent below the knee. The anterior tibial took off but then became diminutive distally. The tibioperoneal trunk had an occlusion with what appeared to be then that peroneal is the main runoff into the foot. We got the wire and quick cross through this and brought in a long 6 [place] sheath. We then switched out to an 014 wire. We then balloon through this area with a 3 x 120 balloon with 2 different inflations total about 3 to 4 minutes. Did a completion angios showed markedly improved with brisk flow through this entire area with much better flow into the foot. We removed out the sheath deployed a Star close with good hemostasis he was brought to recovery stable condition. Sedation: This 59-year-old gentleman underwent moderate sedation given by Dr. Brijesh Shannon. He was monitored EKG blood pressure see the EMR for the complete record. Fluoroscopy: Contrast dye: 17 cc
[2019-06-13 08:51] LABS: Prothrombin Time Fingerstick 14.9 SEC (11.9-14.4)
== END 2019-06-12 12:56 | disposition home or self-care (01) ==
PROVIDERS: PCP Internal Medicine; Referring Provider Surgery Vascular Surgery; Visit Provider Surgery Vascular Surgery
DX: E11.621 Type 2 diabetes mellitus with foot ulcer (principal); L97.422 Non-pressure chronic ulcer of left heel and midfoot with fat layer exposed; E11.51 Type 2 diabetes mellitus with diabetic peripheral angiopathy without gangrene; I70.244 Atherosclerosis of native arteries of left leg with ulceration of heel and midfoot; I83.892 Varicose veins of left lower extremity with other complications; E78.00 Pure hypercholesterolemia, unspecified; I48.91 Unspecified atrial fibrillation; I11.0 Hypertensive heart disease with heart failure; I50.9 Heart failure, unspecified; F32.9 Major depressive disorder, single episode, unspecified; Z86.718 Personal history of other venous thrombosis and embolism; Z79.02 Long term (current) use of antithrombotics/antiplatelets; Z79.84 Long term (current) use of oral hypoglycemic drugs; Z79.01 Long term (current) use of 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; Z79.899 Other long term (current) drug therapy; Z87.891 Personal history of nicotine dependence
CPT/HCPCS: 36245; 36415; 36416; 37228; 75710; 76937; 80069; 85027; 85610; 85730; 99152; 99153; J7040; Q9967; C1725; C1760; C1769; C1887; C1894

== ENCOUNTER 2019-06-19 10:00 | Outpatient (RCR) | payer BC, SELFPAY ==
[2019-05-22 00:34] VITALS: BP 154/67; PULSE 66; RESP 18; TEMP 38.4
[2019-05-22 14:51] VITALS: BP 174/69; PULSE 66; RESP 16; TEMP 37.4; BMI 48.6
--- NOTE | 2019-05-22 23:17 | PN.PCM_ITS ---
(1) Chronic 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 Status: Chronic Code(s): L97.522 - Non-pressure chronic ulcer of other part of 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 (2) Edema of left lower leg due to peripheral venous insufficiency Status: Chronic Code(s): I87.2 - Venous insufficiency (chronic) (peripheral); R60.9 - Edema, unspecified (3) Other specified peripheral vascular diseases Status: Chronic Code(s): I73.89 - Other specified peripheral vascular diseases (4) Type 2 diabetes mellitus with diabetic polyneuropathy Status: Chronic Code(s): E11.42 - Type 2 diabetes mellitus with diabetic polyneuropathy (5) Hammer toe of left foot Status: Chronic Code(s): M20.42 - Other hammer toe(s) (acquired), left foot (6) Delayed wound healing Status: Chronic Code(s): T14.8XXD - Other injury of unspecified body region, subsequent encounter (7) Malnutrition Status: Suspected Code(s): E46 - Unspecified protein-calorie malnutrition Type of Wound Date of Service: 05/22/19 Chief Complaint: Left foot ulcer History of Wound: This 59-year-old male with multiple comorbidities presents to the wound healing center for an ulcer to the left forefoot. He reports drainage and denies odor or redness. He had vascular surgery intervention performed previously in 2018; he missed his recommended follow up and has scheduled this now (early May 2019). He relates he was seen this morning and that Dr. Shannon will be sending his note including his plan. He continues to use cam walker. He denies fever, chill, nausea, vomiting, loss of appetite, or respiratory symptoms, or cough. He did not have a fever on presentation today. Progress of Wound: improving - Physical Exam Vital Signs Temp Pulse Resp BP 99.4 F H 66 16 174/69 H 05/22/19 14:51 05/22/19 14:51 05/22/19 14:51 05/22/19 14:51 General: Alert, Oriented x3, Cooperative Extremities: No cyanosis, Capillary Refill Less than 3 Seconds, No Calf Tenderness, Diminished Peripheral Pulses, Edema Skin: Ulcer/ Wound - No purulence, erythema, streaking, odor, infection. Peripheral skin is atrophic and hairless. Wound Measurements and Assessment WC - Nurse 1 - General Ulcer Measurement Start: 05/22/19 14:49 Freq: Status: Active Protocol: Activity Type Activity Date Activity User E-Sign Co-Sign Detail Recorded Client Recorded Date Recorded By Document 05/22/19 14:51 [email or web address] [id number] 05/22/19 14:55 DV 05/22/19 14:51 Wound Center Nurse 1 [Ulcer Assessment] #3- L PLANTAR -Combined with other wound No -Current Size (cm) - Length 0.2 -Current Size (cm) - Width 0.2 -Current Size (cm) - Depth 0.1 -Total Square Cm 0.04 -Photo Taken No -Epithelialization None Present -Tunneling No -Undermining/Tunneling No -Circular Undermining No -Classification - Thickness Full Thickness without Exposed Support Structure -Exudate Amt None Present -Wound Margin Indistinct, Non -Visible -Granulation Amt None Present (0 %) -Granulation Quality N/A -Slough/Fibrin Yes -Necrosis Amt Medium (34-66%) -Necrotic Tissue Type Adherent Slough -Structure Exposed None/Limited to Skin Breakdown -Texture (Fiona-wound Skin Appearance) Assessed, Scarring -Moisture (Fiona-wound Skin Appearance Assessed,Dry/ ) Scaly -Color (Fiona-wound Skin Appearance) No Abnormality, Assessed -Temperature (Fiona-wound Skin No Abnormality Appearance) (Pt Warm) -Tenderness on Palpation (Fiona-wound No Skin Appearance) -Ulcer Cleansing Rinsed/ Irrigated with Saline -Foul Odor after Cleansing No -Anesthetic Used 4% Lidocaine Solution WC - Nurse 2 - General Ulcer CM Notes Start: 05/22/19 14:49 Freq: Status: Active Protocol: Activity Type Activity Date Activity User E-Sign Co-Sign Detail Recorded Client Recorded Date Recorded By Document 05/22/19 15:01 JF [id number] 05/22/19 15:03 JF 05/22/19 15:01 Wound Center Nurse 2 [Procedure/Treatment] -Time 15:02 -Correct Patient Yes -Correct Side, Site, Position Yes -Correct Procedure Yes -Procedure Performed Yes -Type of Procedure Debridement -Clinical Debridement Subcutaneous -Post Debridement Size (cm) - Length 0.2 -Post Debridement Size (cm) - Width 0.3 -Post Debridement Size (cm) - Depth 0.1 -Total Square Cm 0.06 -Wound/Ulcer Outcome Not Healed -Ulcer Cleansing Rinsed/ Irrigated with Saline -Foul Odor after Cleansing No -Bioengineered Tissue No -Bleeding Controlled with Pressure -Offloading Yes -Type of Offloading Camwalker -Treatment Response Procedure Tolerated Well [See Physician Procedure note for Specifics] Pain Scale: 0-10 Numeric [Pain] -Is Patient Pain Free? Yes Musculoskeletal: No Tenderness to Palpation of Joints or Extremities, Muscle Wasting, - - Dorsal contracture lesser digits and prominent metatarsal head Neurological: - - Lack of normal epicritic sensation light touch Psych/Mental Status: Normal Affect, Appropriate Debridement Note Post-Debridement Measurements/Treatment WC - Nurse 2 - General Ulcer CM Notes Start: 05/22/19 14:49 Freq: Status: Active Protocol: Activity Type Activity Date Activity User E-Sign Co-Sign Detail Recorded Client Recorded Date Recorded By Document 05/22/19 15:01 JF [id number] 05/22/19 15:03 JF 05/22/19 15:01 Wound Center Nurse 2 #3- L PLANTAR -Time 15:02 -Correct Patient Yes -Correct Side, Site, Position Yes -Correct Procedure Yes -Procedure Performed Yes -Type of Procedure Debridement -Clinical Debridement Subcutaneous -Post Debridement Size (cm) - Length 0.2 -Post Debridement Size (cm) - Width 0.3 -Post Debridement Size (cm) - Depth 0.1 -Total Square Cm 0.06 -Wound/Ulcer Outcome Not Healed -Ulcer Cleansing Rinsed/ Irrigated with Saline -Foul Odor after Cleansing No -Bioengineered Tissue No -Bleeding Controlled with Pressure -Offloading Yes -Type of Offloading Camwalker -Treatment Response Procedure Tolerated Well Pain Scale: 0-10 Numeric Is Patient Pain Free? Yes Wound debrided: plantar foot Laterality: Left Wound Grade/Stage: grade 1 Type of Debridement: Excisional debridement Anesthesia Used: 5% Lidocaine Gel Depth: in the subcutaneous layer Percentage of wound debrided: 100 Instrument Used: #15 blade Tissue Removed: fibrous, devitalized subcutaneous, biofilm, slough Severity: Fat Layer Exposed Amount of bleeding with debridement: Mild Bleeding Controlled with: Pressure Patient tolerated procedure well Assessment/Plan Assessment: Type 2 diabetes, uncontrolled with neuropathy, venous insufficiency, ulcer of left plantar foot stable with fat layer exposed, obesity, peripheral vascular disease, colonization resolved Plan: I discussed his ongoing treatment recommendations. Excisional subcutaneous debridement was performed as noted in the clinical panel. To continue to change dressing changes daily with Alona. He was reassured no local signs of infection are noted today from a clinical standpoint. To continue offloading the ulcer site with a non pneumatic cam walker with dual de nsity offloading pocket. A total contact cast can also be considered if blood flow continued better restored. His impaired ABIs noted. His cam walker with offloading pocket was evaluated today and still looks appropriate. He changes daily with hydrogel with collagen and overlying gauze and will now use alona. To resume nutritional supplementation. I recommended Glucerna and eating a well-balanced full food diet with appropriate and enough protein and vitamin C. His updated noninvasive vascular studies were reviewed as abnormal to the left lower extremity with an TRISH of approximately 0.5. I also ordered venous reflux studies to rule out venous insufficiency which confirmed abnoralities to the left lower extremity veins. He completed intervention with Dr. Shannon previously in August 2017. This has been rescheduled for early May 2019. He went for his follow-up appointment this morning and relates Dr. Shannon has a plan and he is not sure exactly what it is. Dr. Shannon's notes will be requested. He understands he is at risk for delayed healing and limb loss. I answered all his questions. A previous foot x-ray was also ordered due to the chronicity of this ulcer. There are no acute fractures or dislocations subcutaneous emphysema. His culture also grew out staph and anaerobic cocci. There continues to be no overt obvious signs of local infection however this bacteria should not be growing in the ulcer site and is probably contributing to delayed healing. I recommend he wash his this daily with medical grade antimicrobial soap. The quality of the ulcer bed looks improved today. His fever is noted and I recommend he follows up with his primary care physician for this. He was reassured there are no local signs of infection in his foot. To return to the wound healing center 2 weeks or call sooner if he has any questions or concerns. He is stable and I recommend slightly increase duration between visits to the fernandez virus pandemic. He understands to call and get in sooner if there is worsening status or development of infection; he demonstrates understanding. I answered his questions.
[2019-06-05 11:22] VITALS: BP 145/72; PULSE 69; RESP 18; TEMP 36.4; BMI 48.6
--- NOTE | 2019-06-05 13:30 | PCM.WC.PN ---
(1) Chronic 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 Status: Chronic Current Visit: Yes Code(s): L97.522 - Non-pressure chronic ulcer of other part of 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 (2) Edema of left lower leg due to peripheral venous insufficiency Status: Chronic Current Visit: Yes Code(s): I87.2 - Venous insufficiency (chronic) (peripheral); R60.9 - Edema, unspecified (3) Other specified peripheral vascular diseases Status: Chronic Current Visit: Yes Code(s): I73.89 - Other specified peripheral vascular diseases (4) Type 2 diabetes mellitus with diabetic polyneuropathy Status: Chronic Current Visit: Yes Code(s): E11.42 - Type 2 diabetes mellitus with diabetic polyneuropathy (5) Hammer toe of left foot Status: Chronic Current Visit: Yes Code(s): M20.42 - Other hammer toe(s) (acquired), left foot (6) Delayed wound healing Status: Chronic Current Visit: Yes Code(s): T14.8XXD - Other injury of unspecified body region, subsequent encounter (7) Malnutrition Status: Suspected Current Visit: Yes Code(s): E46 - Unspecified protein-calorie malnutrition Type of Wound Date of Service: 06/05/19 Chief Complaint: Left foot ulcer History of Wound: This 59-year-old male with multiple comorbidities presents to the wound healing center for an ulcer to the left forefoot. He reports drainage and denies odor or redness. He had vascular surgery intervention performed previously in 2018. He did recently follow-up with Dr. Shannon and has an additional procedure scheduled for next week foot. He continues to use cam walker. He denies fever, chill, nausea, vomiting, loss of appetite, or respiratory symptoms, or cough. Progress of Wound: Stable - Physical Exam Vital Signs Temp Pulse Resp BP 97.5 F L 69 18 145/72 H 06/05/19 11:22 06/05/19 11:22 06/05/19 11:06/05/19 11:22 General: Alert, Oriented x3, Cooperative, No apparent distress Extremities: No cyanosis, Capillary Refill Less than 3 Seconds, No Calf Tenderness, Diminished Peripheral Pulses, Edema Skin: Ulcer/ Wound - No purulence, erythema, string, odor, infection. Ulcer bed is granular and there is no additional peripheral epithelialization noted this week. The skin is atrophic and hairless Wound Measurements and Assessment - Nurse 1 - General Ulcer Measurement Start: 05/22/19 14:49 Freq: Status: Active Protocol: Activity Type Activity Date Activity User E-Sign Co-Sign Detail Recorded Client Recorded Date Recorded By Document 06/05/19 11:22 RB [id number] 06/05/19 11:25 RB 06/05/19 11:22 Wound Center Nurse 1 [Ulcer Assessment] #3- L PLANTAR -Combined with other wound No -Current Size (cm) - Length 0.5 -Current Size (cm) - Width 0.3 -Current Size (cm) - Depth 0.3 -Total Square Cm 0.15 -Tunneling No -Undermining/Tunneling Yes -Undermining/Tunneling Starts (O' 8 clock) -Undermining/Tunneling Ends (O'clock) 8 -Maximum Distance (cm) 0.9 -Circular Undermining No -Exudate Amt Small -Exudate Type Serosanguineous -Wound Margin Thickened -Granulation Amt Medium (34-66%) -Granulation Quality [place] -Slough/Fibrin Yes -Necrosis Amt Small (1-33%) -Necrotic Tissue Type Adherent Slough -Structure Exposed N/A -Texture (Fiona-wound Skin Appearance) Callus -Moisture (Fiona-wound Skin Appearance Assessed ) -Color (Fiona-wound Skin Appearance) Assessed -Temperature (Fiona-wound Skin No Abnormality Appearance) (Pt Warm) -Tenderness on Palpation (Fiona-wound No Skin Appearance) -Ulcer Cleansing Wound Cleanser -Foul Odor after Cleansing No -Anesthetic Used 4% Lidocaine Solution - Nurse 2 - General Ulcer CM Notes Start: 05/22/19 14:49 Freq: Status: Active Protocol: Activity Type Activity Date Activity User E-Sign Co-Sign Detail Recorded Client Recorded Date Recorded By Document 06/05/19 11:30 REID [id number] 06/05/19 11:32 06/05/19 11:30 Wound Center Nurse 2 [Procedure/Treatment] -Time 11:31 -Correct Patient Yes -Correct Side, Site, Position Yes -Correct Procedure Yes -Procedure Performed Yes -Type of Procedure Debridement -Clinical Debridement Subcutaneous -Post Debridement Size (cm) - Length 0.7 -Post Debridement Size (cm) - Width 0.7 -Post Debridement Size (cm) - Depth 0.2 -Total Square Cm 0.49 -Wound/Ulcer Outcome Not Healed -Ulcer Cleansing Rinsed/ Irrigated with Saline -Foul Odor after Cleansing No -Bioengineered Tissue No -Bleeding Controlled with Pressure -Offloading Yes -Type of Offloading Camwalker -Treatment Response Procedure Tolerated Well [See Physician Procedure note for Specifics] Musculoskeletal: No Tenderness to Palpation of Joints or Extremities, Muscle Wasting Neurological: - - Lack of normal epicritic sensation light touch is consistent with neuropathy status Psych/Mental Status: Normal Affect, Appropriate Debridement Note Post-Debridement Measurements/Treatment WC - Nurse 2 - General Ulcer CM Notes Start: 05/22/19 14:49 Freq: Status: Active Protocol: Activity Type Activity Date Activity User E-Sign Co-Sign Detail Recorded Client Recorded Date Recorded By Document 05/22/19 15:01 [id number] 05/22/19 15:03 JF Document 06/05/19 11:30 [id number] 06/05/19 11:32 JF 05/22/19 06/05/19 15:01 11:30 Wound Center Nurse 2 #3- L PLANTAR -Time 15:02 11:31 -Correct Patient Yes Yes -Correct Side, Site, Position Yes Yes -Correct Procedure Yes Yes -Procedure Performed Yes Yes -Type of Procedure Debridement Debridement -Clinical Debridement Subcutaneous Subcutaneous -Post Debridement Size (cm) - Length 0.2 0.7 -Post Debridement Size (cm) - Width 0.3 0.7 -Post Debridement Size (cm) - Depth 0.1 0.2 -Total Square Cm 0.06 0.49 -Wound/Ulcer Outcome Not Healed Not Healed -Ulcer Cleansing Rinsed/ Rinsed/ Irrigated with Irrigated with Saline Saline -Foul Odor after Cleansing No No -Bioengineered Tissue No No -Bleeding Controlled with Pressure Pressure -Offloading Yes Yes -Type of Offloading Camwalker Camwalker -Treatment Response Procedure Procedure Tolerated Well Tolerated Well Pain Scale: 0-10 Numeric Is Patient Pain Free? Yes Wound debrided: plantar metatarsal head Laterality: Left Wound Grade/Stage: grade 1 Type of Debridement: Excisional debridement Anesthesia Used: 5% Lidocaine Gel Depth: in the subcutaneous layer Percentage of wound debrided: 100 Instrument Used: #15 blade Tissue Removed: fibrous, devitalized subcutaneous, biofilm, slough Severity: Fat Layer Exposed Amount of bleeding with debridement: Mild Bleeding Controlled with: Compression and gauze Patient tolerated procedure well Assessment/Plan Active Problems Chronic 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 (Chronic) Edema of left lower leg due to peripheral venous insufficiency (Chronic) Other specified peripheral vascular diseases (Chronic) Type 2 diabetes mellitus with diabetic polyneuropathy (Chronic) Hammer toe of left foot (Chronic) Delayed wound healing (Chronic) Assessment: Type 2 diabetes, uncontrolled with neuropathy, venous insufficiency, ulcer of left plantar foot stable with fat layer exposed, obesity, peripheral vascular disease, colonization resolved Plan: I discussed his ongoing treatment recommendations. Excisional subcutaneous debridement was performed as noted in the clinical panel. To continue to change dressing changes daily with Alona. He was reassured no local signs of infection are noted today from a clinical standpoint. To continue offloading the ulcer site with a non pneumatic cam walker with dual density offloading pocket. A total contact cast can also be considered if blood flow continued better restored. His impaired ABIs noted. His cam walker with offloading pocket was evaluated today and still looks appropriate. He changes daily with hydrogel with collagen and overlying gauze and will now use alona. To resume nutritional supplementation. I recommended Glucerna and eating a well-balanced full food diet with appropriate and enough protein and vitamin C. His updated noninvasive vascular studies were reviewed as abnormal to the left lower extremity with an TRISH of approximately 0.5. I also ordered venous reflux studies to rule out venous insufficiency which confirmed abnoralities to the left lower extremity veins. He completed intervention with Dr. Shannon previously in August 2017. This has been rescheduled for early May 2019. He did follow-up with Dr. Shannon as advised and relates he has a procedure scheduled for next week. He was advised to proceed forward. He understands he is at risk for delayed healing and limb loss. I answered all his questions. A previous foot x-ray was also ordered due to the chronicity of this ulcer. There are no acute fractures or dislocations subcutaneous emphysema. His culture also grew out staph and anaerobic cocci. There continues to be no overt obvious signs of local infection however this bacteria should not be growing in the ulcer site and is probably contributing to delayed healing. I recommend he wash his this daily with medical grade antimicrobial soap. The quality of the ulcer bed looks improved today. His fever is noted and I recommend he follows up with his primary care physician for this. He was reassured there are no local signs of infection in his foot. To return to the wound healing center 1 week or call sooner if he has any questions or concerns. He understands to call and get in sooner if there is worsening status or development of infection; he demonstrates understanding. I answered his questions.
[2019-06-19 10:09] VITALS: BP 151/74; PULSE 74; RESP 18; TEMP 36.6; BMI 48.6
--- NOTE | 2019-06-19 10:24 | PCM.WC.PN ---
(1) Chronic 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 Status: Chronic Current Visit: Yes Code(s): L97.522 - Non-pressure chronic ulcer of other part of 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 (2) Edema of left lower leg due to peripheral venous insufficiency Status: Chronic Current Visit: Yes Code(s): I87.2 - Venous insufficiency (chronic) (peripheral); R60.9 - Edema, unspecified (3) Other specified peripheral vascular diseases Status: Chronic Current Visit: Yes Code(s): I73.89 - Other specified peripheral vascular diseases (4) Type 2 diabetes mellitus with diabetic polyneuropathy Status: Chronic Current Visit: Yes Code(s): E11.42 - Type 2 diabetes mellitus with diabetic polyneuropathy (5) Hammer toe of left foot Status: Chronic Current Visit: Yes Code(s): M20.42 - Other hammer toe(s) (acquired), left foot (6) Delayed wound healing Status: Chronic Current Visit: Yes Code(s): T14.8XXD - Other injury of unspecified body region, subsequent encounter (7) Malnutrition Status: Suspected Current Visit: Yes Code(s): E46 - Unspecified protein-calorie malnutrition Type of Wound Date of Service: 06/19/19 Chief Complaint: Left foot ulcer History of Wound: This 59-year-old male with multiple comorbidities presents to the wound healing center for an ulcer to the left forefoot. He reports drainage and denies odor or redness. He had vascular surgery intervention performed previously in 2018. He did recently follow-up with Dr. Shannon and has an additional procedure performed last week including removing the occlusion from his tibial peroneal trunk artery and peroneal runoff. He continues to use cam walker. He denies fever, chill, nausea, vomiting, loss of appetite, or respiratory symptoms, or cough. Progress of Wound: Improving - Physical Exam Vital Signs Temp Pulse Resp BP 98 F 74 18 151/74 H 06/19/19 10:09 06/19/19 10:09 06/19/19 10:09 06/19/19 10:09 General: Alert, Oriented x3, Cooperative, No apparent distress Extremities: No cyanosis, Capillary Refill Less than 3 Seconds, No Calf Tenderness, Diminished Peripheral Pulses, Edema Skin: Ulcer/ Wound - No purulence, erythema, string, odor, infection. The peripheral skin is hairless and atrophic Wound Measurements and Assessment - Nurse 1 - General Ulcer Measurement Start: 05/22/19 14:49 Freq: Status: Active Protocol: Activity Type Activity Date Activity User E-Sign Co-Sign Detail Recorded Client Recorded Date Recorded By Document 06/19/19 10:09 RB [id number] 06/19/19 10:10 ANDREW 06/19/19 10:09 Wound Center Nurse 1 [Ulcer Assessment] #3- L PLANTAR -Combined with other wound No -Current Size (cm) - Length 0.2 -Current Size (cm) - Width 0.2 -Current Size (cm) - Depth 0.6 -Total Square Cm 0.04 -Tunneling No -Undermining/Tunneling Yes -Undermining/Tunneling Starts (O' 12 clock) -Undermining/Tunneling Ends (O'clock) 12 -Maximum Distance (cm) 0.4 -Circular Undermining Yes -Exudate Amt Small -Exudate Type Serosanguineous -Wound Margin Thickened -Granulation Amt Medium (34-66%) -Granulation Quality [place] -Slough/Fibrin Yes -Necrosis Amt Medium (34-66%) -Necrotic Tissue Type Adherent Slough -Structure Exposed N/A -Texture (Fiona-wound Skin Appearance) Callus -Moisture (Fiona-wound Skin Appearance Assessed ) -Color (Fiona-wound Skin Appearance) Assessed -Temperature (Fiona-wound Skin No Abnormality Appearance) (Pt Warm) -Tenderness on Palpation (Fiona-wound No Skin Appearance) -Ulcer Cleansing Wound Cleanser -Foul Odor after Cleansing No -Anesthetic Used 5% Lidocaine Gel - Nurse 2 - General Ulcer CM Notes Start: 05/22/19 14:49 Freq: Status: Active Protocol: Activity Type Activity Date Activity User E-Sign Co-Sign Detail Recorded Client Recorded Date Recorded By Document 06/19/19 10:21 REID [id number] 06/19/19 10:23 REID 06/19/19 10:21 Wound Center Nurse 2 [Procedure/Treatment] -Time 10:22 -Correct Patient Yes -Correct Side, Site, Position Yes -Correct Procedure Yes -Procedure Performed Yes -Type of Procedure Debridement -Clinical Debridement Subcutaneous -Post Debridement Size (cm) - Length 0.4 -Post Debridement Size (cm) - Width 0.1 -Post Debridement Size (cm) - Depth 0.1 -Total Square Cm 0.04 -Wound/Ulcer Outcome Not Healed -Ulcer Cleansing Rinsed/ Irrigated with Saline -Foul Odor after Cleansing No -Bioengineered Tissue No -Bleeding Controlled with Pressure -Offloading Yes -Type of Offloading Camwalker -Treatment Response Procedure Tolerated Well [See Physician Procedure note for Specifics] Pain Scale: 0-10 Numeric [Pain] -Is Patient Pain Free? Yes Musculoskeletal: No Tenderness to Palpation of Joints or Extremities, Muscle Wasting Neurological: - - Lack of normal epicritic sensation. Psych/Mental Status: Normal Affect, Appropriate Debridement Note Post-Debridement Measurements/Treatment WC - Nurse 2 - General Ulcer CM Notes Start: 05/22/19 14:49 Freq: Status: Active Protocol: Activity Type Activity Date Activity User E-Sign Co-Sign Detail Recorded Client Recorded Date Recorded By Document 05/22/19 15:01 [id number] 05/22/19 15:03 Document 06/05/19 11:30 [id number] 06/05/19 11:32 Document 06/19/19 10:21 [id number] 06/19/19 10:23 05/22/19 06/05/19 06/19/19 15:01 11:30 10:21 Wound Center Nurse 2 #3- L PLANTAR -Time 15:02 11:31 10:22 -Correct Patient Yes Yes Yes -Correct Side, Site, Position Yes Yes Yes -Correct Procedure Yes Yes Yes -Procedure Performed Yes Yes Yes -Type of Procedure Debridement Debridement Debridement -Clinical Debridement Subcutaneous Subcutaneous Subcutaneous -Post Debridement Size (cm) - Length 0.2 0.7 0.4 -Post Debridement Size (cm) - Width 0.3 0.7 0.1 -Post Debridement Size (cm) - Depth 0.1 0.2 0.1 -Total Square Cm 0.06 0.49 0.04 -Wound/Ulcer Outcome Not Healed Not Healed Not Healed -Ulcer Cleansing Rinsed/ Rinsed/ Rinsed/ Irrigated with Irrigated with Irrigated with Saline Saline Saline -Foul Odor after Cleansing No No No -Bioengineered Tissue No No No -Bleeding Controlled with Pressure Pressure Pressure -Offloading Yes Yes Yes -Type of Offloading Camwalker Camwalker Camwalker -Treatment Response Procedure Procedure Procedure Tolerated Well Tolerated Well Tolerated Well Pain Scale: 0-10 Numeric Is Patient Pain Free? Yes Yes Wound debrided: plantar lateral foot Laterality: Left Wound Grade/Stage: grade 1 Type of Debridement: Excisional debridement Anesthesia Used: 5% Lidocaine Gel Depth: in the subcutaneous layer Percentage of wound debrided: 100 Instrument Used: #15 blade Tissue Removed: fibrous, devitalized subcutaneous, biofilm, slough Severity: Fat Layer Exposed Amount of bleeding with debridement: Mild Bleeding Controlled with: Pressure Patient tolerated procedure well Assessment/Plan Active Problems Chronic 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 (Chronic) Edema of left lower leg due to peripheral venous insufficiency (Chronic) Other specified peripheral vascular diseases (Chronic) Type 2 diabetes mellitus with diabetic polyneuropathy (Chronic) Hammer toe of left foot (Chronic) Delayed wound healing (Chronic) Assessment: Type 2 diabetes, uncontrolled with neuropathy, venous insufficiency, ulcer of left plantar foot stable with fat layer exposed, obesity, peripheral vascular disease, colonization resolved Plan: I discussed his ongoing treatment recommendations. Excisional subcutaneous debridement was performed as noted in the clinical panel. To continue to change dressing changes daily with Alona. He was reassured no local signs of infection are noted today from a clinical standpoint. To continue offloading the ulcer site with a non pneumatic cam walker with dual density offloading pocket. A total contact cast can also be considered if blood flow continued better restored. His impaired ABIs noted. He had recent intervention performed with Dr. Shannon last week in which the occlusions in the left lower extremity were addressed. His cam walker with offloading pocket was evaluated today and still looks appropriate. He changes daily with hydrogel with collagen and overlying gauze and will now use alona. To resume nutritional supplementation. I recommended Glucerna and eating a well-balanced full food diet with appropriate and enough protein and vitamin C. His updated noninvasive vascular studies were reviewed as abnormal to the left lower extremity with an TRISH of approximately 0.5. I also ordered venous reflux studies to rule out venous insufficiency which confirmed abnoralities to the left lower extremity veins. He understands he is at risk for delayed healing and limb loss. I answered all his questions. A previous foot x-ray was also ordered due to the chronicity of this ulcer. There are no acute fractures or dislocations subcutaneous emphysema. His culture also grew out staph and anaerobic cocci. There continues to be no overt obvious signs of local infection however this bacteria should not be growing in the ulcer site and is probably contributing to delayed healing. I recommend he wash his this daily with medical grade antimicrobial soap. The quality of the ulcer bed looks improved today. To return to the wound healing center 1 week or call sooner if he has any questions or concerns. He understands to call and get in sooner if there is worsening status or development of infection; he demonstrates understanding. I answered his questions.
== END 2019-06-20 23:59 ==
LOC: WC 10:00
PROVIDERS: Family Provider Internal Medicine; PCP Internal Medicine; Referring Provider Podiatrist; Visit Provider Podiatrist
DX: E11.621 Type 2 diabetes mellitus with foot ulcer (principal); I87.2 Venous insufficiency (chronic) (peripheral); M20.42 Other hammer toe(s) (acquired), left foot; E11.42 Type 2 diabetes mellitus with diabetic polyneuropathy; E11.51 Type 2 diabetes mellitus with diabetic peripheral angiopathy without gangrene; L97.522 Non-pressure chronic ulcer of other part of 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; R60.0 Localized edema; E66.9 Obesity, unspecified; Z68.42 Body mass index [BMI] 45.0-49.9, adult
CPT/HCPCS: 11042

== ENCOUNTER 2019-07-10 09:00 | Outpatient (RCR) | payer OTHER, SELFPAY ==
[2019-06-21 00:12] VITALS: BP 151/74; PULSE 74; RESP 18; TEMP 36.6; BMI 50.1
[2019-06-26 09:06] VITALS: BP 121/55; PULSE 91; RESP 16; TEMP 36.8; BMI 50.1
--- NOTE | 2019-06-26 09:28 | PN.PCM_ITS ---
(1) Ulcer of left lower extremity with fat layer exposed Status: Acute Current Visit: Yes Code(s): L97.922 - Non-pressure chronic ulcer of unspecified part of left lower leg with fat layer exposed (2) Chronic 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 Status: Chronic Current Visit: Yes Code(s): L97.522 - Non-pressure chronic ulcer of other part of 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 (3) Type 2 diabetes mellitus with diabetic polyneuropathy Status: Chronic Current Visit: Yes Code(s): E11.42 - Type 2 diabetes mellitus with diabetic polyneuropathy (4) Delayed wound healing Status: Chronic Current Visit: Yes Code(s): T14.8XXD - Other injury of unspecified body region, subsequent encounter Type of Wound Date of Service: 06/26/19 Chief Complaint: Left foot ulcer History of Wound: This 59-year-old male with multiple comorbidities presents to the wound healing center for an ulcer to the left forefoot. He reports drainage and denies odor or redness. He had vascular surgery intervention performed previously in 2018. He did recently follow-up with Dr. Shannon and has an additional procedure performed including removing the occlusion from his tibial peroneal trunk artery and peroneal runoff. He continues to use cam walker. He denies fever, chill, nausea, vomiting, loss of appetite, or respiratory symptoms, or cough. He relates there is been no drainage to the foot for for 5 days. He relates a new opening to the left leg. He denies wearing compression because he relates probably will not do anything. He looked down 1 day noticed blood coming out of his leg. He denies any known trauma. He denies redness or odor. Progress of Wound: Improving. New leg ulcer left - Physical Exam Vital Signs Temp Pulse Resp BP 98.3 F 91 16 121/55 H 06/26/19 09:06 06/26/19 09:06 06/26/19 09:06 06/26/19 09:06 General: Alert, Oriented x3, Cooperative, No apparent distress HEENT: Atraumatic Extremities: No cyanosis, Capillary Refill Less than 3 Seconds, No Calf Tenderness, Diminished Peripheral Pulses, Edema Skin: Ulcer/ Wound - No purulence, erythema, string, odor, infection. Significant peripheral epithelialization noted plantar foot ulcer. New ulcer to the leg is granular base. The peripheral skin is hairless, atrophic, skin peeling, hyperpigmented and very dry Wound Measurements and Assessment - Nurse 1 - General Ulcer Measurement Start: 06/26/19 09:02 Freq: Status: Active Protocol: Activity Type Activity Date Activity User E-Sign Co-Sign Detail Recorded Client Recorded Date Recorded By Document 06/26/19 09:06 REID [id number] 06/26/19 09:09 REID 06/26/19 09:06 Wound Center Nurse 1 [Ulcer Assessment] #4 L Med Martin -Current Size (cm) - Length 1.6 -Current Size (cm) - Width 0.8 -Current Size (cm) - Depth 0.1 -Total Square Cm 1.28 -Photo Taken Yes -Classification - Thickness Partial Thickness -Exudate Amt Small -Exudate Type Serosanguineous -Wound Margin Distinct, Outline Attached -Granulation Amt Large (67-100%) -Granulation Quality Gandy -Structure Exposed N/A -Texture (Fiona-wound Skin Appearance) No Abnormality -Moisture (Fiona-wound Skin Appearance No Abnormality ) -Color (Fiona-wound Skin Appearance) Hemosiderin Staining -Temperature (Fiona-wound Skin No Abnormality Appearance) (Pt Warm) -Tenderness on Palpation (Fiona-wound No Skin Appearance) -Ulcer Cleansing Rinsed/ Irrigated with Saline -Foul Odor after Cleansing No -Anesthetic Used 4% Lidocaine Solution #3- L PLANTAR -Current Size (cm) - Length 0.1 -Current Size (cm) - Width 0.1 -Current Size (cm) - Depth 0.1 -Total Square Cm 0.01 -Photo Taken No -Exudate Amt None Present -Wound Margin Thickened -Granulation Amt Large (67-100%) -Granulation Quality Pale -Necrosis Amt Small (1-33%) -Necrotic Tissue Type Eschar -Structure Exposed N/A -Texture (Fiona-wound Skin Appearance) Callus -Moisture (Fiona-wound Skin Appearance Dry/Scaly ) -Color (Fiona-wound Skin Appearance) No Abnormality -Temperature (Fiona-wound Skin No Abnormality Appearance) (Pt Warm) -Tenderness on Palpation (Fiona-wound No Skin Appearance) -Ulcer Cleansing Rinsed/ Irrigated with Saline -Foul Odor after Cleansing No -Anesthetic Used 4% Lidocaine Solution [Edema Assessment] -Left Calf (cm) 42 -Left Ankle (cm) 23.5 - Nurse 2 - General Ulcer CM Notes Start: 06/26/19 09:02 Freq: Status: Active Protocol: Activity Type Activity Date Activity User E-Sign Co-Sign Detail Recorded Client Recorded Date Recorded By Document 06/26/19 09:17 REID [id number] 06/26/19 09:22 06/26/19 09:17 Wound Center Nurse 2 [Procedure/Treatment] #4 L Med Martin -Time 09:21 -Correct Patient Yes -Correct Side, Site, Position Yes -Correct Procedure Yes -Procedure Performed Yes -Type of Procedure Debridement -Clinical Debridement Subcutaneous -Post Debridement Size (cm) - Length 1.6 -Post Debridement Size (cm) - Width 0.9 -Post Debridement Size (cm) - Depth 0.1 -Total Square Cm 1.44 -Wound/Ulcer Outcome Not Healed -Ulcer Cleansing Rinsed/ Irrigated with Saline -Foul Odor after Cleansing No -Bioengineered Tissue No -Bleeding Controlled with Pressure -Offloading No -Treatment Response Procedure Tolerated Well #3- L PLANTAR -Time 09:19 -Correct Patient Yes -Correct Side, Site, Position Yes -Correct Procedure Yes -Procedure Performed Yes -Type of Procedure Debridement -Clinical Debridement Subcutaneous -Post Debridement Size (cm) - Length 0.1 -Post Debridement Size (cm) - Width 0.1 -Post Debridement Size (cm) - Depth 0.1 -Total Square Cm 0.01 -Wound/Ulcer Outcome Not Healed -Ulcer Cleansing Rinsed/ Irrigated with Saline -Foul Odor after Cleansing No -Bioengineered Tissue No -Bleeding Controlled with Pressure -Offloading Yes -Type of Offloading Surgical Shoe -Treatment Response Procedure Tolerated Well [See Physician Procedure note for Specifics] Pain Scale: 0-10 Numeric [Pain] -Is Patient Pain Free? Yes Musculoskeletal: No Tenderness to Palpation of Joints or Extremities, Muscle Wasting Neurological: - - Lack of normal epicritic sensation light touch Psych/Mental Status: Normal Affect, Appropriate Debridement Note Post-Debridement Measurements/Treatment - Nurse 2 - General Ulcer CM Notes Start: 06/26/19 09:02 Freq: Status: Active Protocol: Activity Type Activity Date Activity User E-Sign Co-Sign Detail Recorded Client Recorded Date Recorded By Document 06/26/19 09:17 REID [id number] 06/26/19 09:22 REID 06/26/19 09:17 Wound Center Nurse 2 #4 L Med Martin -Time 09:21 -Correct Patient Yes -Correct Side, Site, Position Yes -Correct Procedure Yes -Procedure Performed Yes -Type of Procedure Debridement -Clinical Debridement Subcutaneous -Post Debridement Size (cm) - Length 1.6 -Post Debridement Size (cm) - Width 0.9 -Post Debridement Size (cm) - Depth 0.1 -Total Square Cm 1.44 -Wound/Ulcer Outcome Not Healed -Ulcer Cleansing Rinsed/ Irrigated with Saline -Foul Odor after Cleansing No -Bioengineered Tissue No -Bleeding Controlled with Pressure -Offloading No -Treatment Response Procedure Tolerated Well #3- L PLANTAR -Time 09:19 -Correct Patient Yes -Correct Side, Site, Position Yes -Correct Procedure Yes -Procedure Performed Yes -Type of Procedure Debridement -Clinical Debridement Subcutaneous -Post Debridement Size (cm) - Length 0.1 -Post Debridement Size (cm) - Width 0.1 -Post Debridement Size (cm) - Depth 0.1 -Total Square Cm 0.01 -Wound/Ulcer Outcome Not Healed -Ulcer Cleansing Rinsed/ Irrigated with Saline -Foul Odor after Cleansing No -Bioengineered Tissue No -Bleeding Controlled with Pressure -Offloading Yes -Type of Offloading Surgical Shoe -Treatment Response Procedure Tolerated Well Pain Scale: 0-10 Numeric Is Patient Pain Free? Yes Wound debrided: plantar foot, anterior leg Laterality: Left Wound Grade/Stage: grade 1 Type of Debridement: Excisional debridement Anesthesia Used: 5% Lidocaine Gel Depth: in the subcutaneous layer Percentage of wound debrided: 100 Instrument Used: #15 blade Tissue Removed: fibrous, devitalized subucutaneous, biofilm, slough Severity: Fat Layer Exposed Amount of bleeding with debridement: Mild Bleeding Controlled with: Pressure Patient tolerated procedure well Assessment/Plan Active Problems Chronic 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 (Chronic) Type 2 diabetes mellitus with diabetic polyneuropathy (Chronic) Delayed wound healing (Chronic) Ulcer of left lower extremity with fat layer exposed (Acute) Assessment: Type 2 diabetes, uncontrolled with neuropathy, venous insufficiency, ulcer of left plantar foot stable with fat layer exposed, obesity, peripheral vascular disease, colonization resolved, new left leg ulcer Plan: I discussed his ongoing treatment recommendations. Excisional subcutaneous debridement was performed as noted in the clinical panel. His new ulcer site is noted. To continue to change dressing changes daily with hydrogel. He was reassured no local signs of infection are noted today from a clinical standpoint. To continue offloading the ulcer site with a non pneumatic cam walker with dual density offloading pocket. His impaired ABIs noted. He had recent intervention performed with Dr. Shannon in which the occlusions in the left lower extremity were addressed. To resume nutritional supplementation. I recommended Glucerna and eating a well-balanced full food diet with appropriate and enough protein and vitamin C. His updated noninvasive vascular studies were reviewed as abnormal to the left lower extremity with an TRISH of approximately 0.5. I also ordered venous reflux studies to rule out venous insufficiency which confirmed abnoralities to the left lower extremity veins. He understands he is at risk for delayed healing and limb loss. I answered all his questions. A previous foot x-ray was also ordered due to the chronicity of this ulcer. There are no acute fractures or dislocations subcutaneous emphysema. His culture also grew out staph and anaerobic cocci. There continues to be no overt obvious signs of local infection however this bacteria should not be growing in the ulcer site and is probably contributing to delayed healing. I recommend he wash his this daily with medical grade antimicrobial soap. The quality of the ulcer bed looks improved today. To resume compression management. A single layer Tubigrip was applied. To avoid idle standing or s itting. To intermittently elevate the limb at rest. He understands this edema may be secondary to venous insufficiency in which are he had prior procedures for or also his congestive heart failure status. Is also advised to improve his skin integrity by moisturizing his legs daily. He relates he is lotion at home. To return to the wound healing center 1 week or call sooner if he has any questions or concerns. He understands to call and get in sooner if there is worsening status or development of infection; he demonstrates understanding. I answered his questions.
[2019-07-03 10:02] VITALS: BP 152/73; PULSE 69; RESP 18; TEMP 36.7; BMI 50.1
--- NOTE | 2019-07-03 23:48 | PN.PCM_ITS ---
(1) Ulcer of left lower extremity with fat layer exposed Status: Acute Code(s): L97.922 - Non-pressure chronic ulcer of unspecified part of left lower leg with fat layer exposed (2) Chronic 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 Status: Resolved Code(s): L97.522 - Non-pressure chronic ulcer of other part of 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 (3) Type 2 diabetes mellitus with diabetic polyneuropathy Status: Chronic Code(s): E11.42 - Type 2 diabetes mellitus with diabetic polyneuropathy (4) Delayed wound healing Status: Chronic Code(s): T14.8XXD - Other injury of unspecified body region, subsequent encounter Type of Wound Date of Service: 07/03/19 Chief Complaint: Left foot ulcer. Left leg ulcer History of Wound: This 59-year-old male with multiple comorbidities presents to the wound healing center for an ulcer to the left forefoot and also his left leg. He reports drainage and denies odor or redness from the leg ulcer. He denies foot ulcer drainage.. He had vascular surgery intervention performed previously in 2018 and again this past month with Dr. Shannon. He continues to use cam walker. He denies fever, chill, nausea, vomiting, loss of appetite, or respiratory symptoms, or cough. Progress of Wound: Healed left foot ulcer. Stable leg ulcer left - Physical Exam Vital Signs Temp Pulse Resp BP 98.1 F 69 18 152/73 H 07/03/19 10:02 07/03/19 10:02 07/03/19 10:02 07/03/19 10:02 General: Alert, Oriented x3, Cooperative, No apparent distress Extremities: No cyanosis, Capillary Refill Less than 3 Seconds, No Calf Tenderness, Diminished Peripheral Pulses, Edema Skin: Ulcer/ Wound - No purulence, erythema, streaking, odor, infection, - - Skin is atrophic dry and hairless with hyperpigmentation to the leg. Granular ulcer base Wound Measurements and Assessment WC - Nurse 1 - General Ulcer Measurement Start: 06/26/19 09:02 Freq: Status: Active Protocol: Activity Type Activity Date Activity User E-Sign Co-Sign Detail Recorded Client Recorded Date Recorded By Document 07/03/19 10:02 DV [id number] 07/03/19 10:09 DV 07/03/19 10:02 Wound Center Nurse 1 [Ulcer Assessment] #4 L Med Martin -Combined with other wound No -Current Size (cm) - Length 0.1 -Current Size (cm) - Width 0.1 -Current Size (cm) - Depth 0.1 -Total Square Cm 0.01 -Photo Taken No -Epithelialization None Present -Tunneling No -Undermining/Tunneling No -Circular Undermining No -Classification - Thickness Full Thickness without Exposed Support Structure -Exudate Amt Small -Exudate Type Sanguineous -Wound Margin Flat & Intact -Granulation Amt None Present (0 %) -Granulation Quality N/A -Slough/Fibrin No -Necrotic Tissue Type Adherent Slough -Structure Exposed None/Limited to Skin Breakdown -Texture (Fiona-wound Skin Appearance) No Abnormality, Assessed -Moisture (Fiona-wound Skin Appearance No Abnormality, ) Assessed -Color (Fiona-wound Skin Appearance) No Abnormality, Assessed -Temperature (Fiona-wound Skin No Abnormality Appearance) (Pt Warm) -Ulcer Cleansing Rinsed/ Irrigated with Saline -Foul Odor after Cleansing No -Anesthetic Used 4% Lidocaine Solution #3- L PLANTAR -Combined with other wound No -Current Size (cm) - Length 0.1 -Current Size (cm) - Width 0.1 -Current Size (cm) - Depth 0.1 -Total Square Cm 0.01 -Photo Taken No -Epithelialization None Present -Tunneling No -Undermining/Tunneling No -Circular Undermining No -Classification - Thickness Full Thickness without Exposed Support Structure -Wound Margin Indistinct, Non -Visible -Granulation Amt None Present (0 %) -Granulation Quality N/A -Necrotic Tissue Type Adherent Slough -Structure Exposed None/Limited to Skin Breakdown -Texture (Fiona-wound Skin Appearance) Assessed, Scarring -Moisture (Fiona-wound Skin Appearance Assessed,Dry/ ) Scaly -Color (Fiona-wound Skin Appearance) No Abnormality, Assessed -Temperature (Fiona-wound Skin No Abnormality Appearance) (Pt Warm) -Ulcer Cleansing Rinsed/ Irrigated with Saline -Foul Odor after Cleansing No -Anesthetic Used 4% Lidocaine Solution WC - Nurse 2 - General Ulcer CM Notes Start: 06/26/19 09:02 Freq: Status: Active Protocol: Activity Type Activity Date Activity User E-Sign Co-Sign Detail Recorded Client Recorded Date Recorded By Document 07/03/19 10:18 REID [id number] 07/03/19 10:20 07/03/19 10:18 Wound Center Nurse 2 [Procedure/Treatment] #4 L Med Martin -Time 10:19 -Correct Patient Yes -Correct Side, Site, Position Yes -Correct Procedure Yes -Procedure Performed Yes -Type of Procedure Debridement -Clinical Debridement Subcutaneous -Post Debridement Size (cm) - Length 0.4 -Post Debridement Size (cm) - Width 0.4 -Post Debridement Size (cm) - Depth 0.1 -Total Square Cm 0.16 -Wound/Ulcer Outcome Not Healed -Ulcer Cleansing Rinsed/ Irrigated with Saline -Foul Odor after Cleansing No -Bioengineered Tissue No -Bleeding Controlled with Pressure -Offloading No -Treatment Response Procedure Tolerated Well #3- L PLANTAR -Correct Patient No -Correct Side, Site, Position No -Correct Procedure No -Procedure Performed No -Post Debridement Size (cm) - Length 0 -Post Debridement Size (cm) - Width 0 -Post Debridement Size (cm) - Depth 0 -Total Square Cm 0 -Wound/Ulcer Outcome Healed- Epithelialized [See Physician Procedure note for Specifics] Pain Scale: 0-10 Numeric [Pain] -Is Patient Pain Free? Yes Musculoskeletal: Muscle Wasting Neurological: - - Lack of epicritic sensation light touch consistent with neuropathy status Psych/Mental Status: Normal Affect, Appropriate Debridement Note Post-Debridement Measurements/Treatment WC - Nurse 2 - General Ulcer CM Notes Start: 06/26/19 09:02 Freq: Status: Active Protocol: Activity Type Activity Date Activity User E-Sign Co-Sign Detail Recorded Client Recorded Date Recorded By Document 06/26/19 09:17 [id number] 06/26/19 09:22 Document 07/03/19 10:18 [id number] 07/03/19 10:20 06/26/19 07/03/19 09:17 10:18 Wound Center Nurse 2 #4 L Med Martin -Time 09:21 10:19 -Correct Patient Yes Yes -Correct Side, Site, Position Yes Yes -Correct Procedure Yes Yes -Procedure Performed Yes Yes -Type of Procedure Debridement Debridement -Clinical Debridement Subcutaneous Subcutaneous -Post Debridement Size (cm) - Length 1.6 0.4 -Post Debridement Size (cm) - Width 0.9 0.4 -Post Debridement Size (cm) - Depth 0.1 0.1 -Total Square Cm 1.44 0.16 -Wound/Ulcer Outcome Not Healed Not Healed -Ulcer Cleansing Rinsed/ Rinsed/ Irrigated with Irrigated with Saline Saline -Foul Odor after Cleansing No No -Bioengineered Tissue No No -Bleeding Controlled with Pressure Pressure -Offloading No No -Treatment Response Procedure Procedure Tolerated Well Tolerated Well #3- L PLANTAR -Time 09:19 -Correct Patient Yes No -Correct Side, Site, Position Yes No -Correct Procedure Yes No -Procedure Performed Yes No -Type of Procedure Debridement -Clinical Debridement Subcutaneous -Post Debridement Size (cm) - Length 0.1 0 -Post Debridement Size (cm) - Width 0.1 0 -Post Debridement Size (cm) - Depth 0.1 0 -Total Square Cm 0.01 0 -Wound/Ulcer Outcome Not Healed Healed- Epithelialized -Ulcer Cleansing Rinsed/ Irrigated with Saline -Foul Odor after Cleansing No -Bioengineered Tissue No -Bleeding Controlled with Pressure -Offloading Yes -Type of Offloading Surgical Shoe -Treatment Response Procedure Tolerated Well Pain Scale: 0-10 Numeric Is Patient Pain Free? Yes Yes Wound debrided: leg Laterality: Left Wound Grade/Stage: grade 1 Type of Debridement: Excisional debridement Anesthesia Used: 5% Lidocaine Gel Depth: in the subcutaneous layer Percentage of wound debrided: 100 Instrument Used: #15 blade Tissue Removed: fibrous, devitalized subcutaneous, biofilm, slough Severity: Fat Layer Exposed Amount of bleeding with debridement: Mild Bleeding Controlled with: Pressure Patient tolerated procedure well Assessment/Plan Assessment: Type 2 diabetes, uncontrolled with neuropathy, venous insufficiency, ulcer of left plantar foot healed, obesity, peripheral vascular disease, colonization resolved, left leg ulcer Plan: I discussed his ongoing treatment recommendations. Excisional subcutaneous debridement was performed as noted in the clinical panel. To continue to change dressing changes daily with hydrogel. He was reassured no local signs of infection are noted today from a clinical standpoint. His impaired ABIs noted. He had recent intervention performed with Dr. Shannon in which the occlusions in the left lower extremity were addressed. To resume nutritional supplementation. I recommended Glucerna and eating a well-balanced full food diet with appropriate and enough protein and vitamin C. His updated n oninvasive vascular studies were reviewed as abnormal to the left lower extremity with an TRISH of approximately 0.5. I also ordered venous reflux studies to rule out venous insufficiency which confirmed abnoralities to the left lower extremity veins. He understands he is at risk for delayed healing and limb loss. I answered all his questions. A previous foot x-ray was also ordered due to the chronicity of this ulcer. There are no acute fractures or dislocations subcutaneous emphysema. His culture also grew out staph and anaerobic cocci. There continues to be no overt obvious signs of local infection however this bacteria should not be growing in the ulcer site and is probably contributing to delayed healing. I recommend he wash his this daily with medical grade antimicrobial soap. To continue compression management. A single layer Tubigrip was applied. To avoid idle standing or sitting. To intermittently elevate the limb at rest. He understands this edema may be secondary to venous insufficiency in which are he had prior procedures for or also his congestive heart failure status. Is also advised to improve his skin integrity by moisturizing his legs daily. He relates he is lotion at home. To return to the wound healing center 1 week or call sooner if he has any questions or concerns. He understands to call and get in sooner if there is worsening status or development of infection; he demonstrates understanding. I answered his questions.
[2019-07-10 09:03] VITALS: BP 147/54; PULSE 70; RESP 22; TEMP 36.7; BMI 50.1
--- NOTE | 2019-07-10 13:05 | PCM.WC.PN ---
(1) Ulcer of left lower extremity with fat layer exposed Status: Resolved Code(s): L97.922 - Non-pressure chronic ulcer of unspecified part of left lower leg with fat layer exposed (2) Chronic 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 Status: Resolved Code(s): L97.522 - Non-pressure chronic ulcer of other part of 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 (3) Type 2 diabetes mellitus with diabetic polyneuropathy Status: Chronic Code(s): E11.42 - Type 2 diabetes mellitus with diabetic polyneuropathy (4) Other specified peripheral vascular diseases Status: Chronic Code(s): I73.89 - Other specified peripheral vascular diseases Type of Wound Date of Service: 07/10/19 Chief Complaint: Left leg ulcer History of Wound: This 59-year-old male with multiple comorbidities presents to the wound healing center for an ulcer to the left forefoot and also his left leg. He reports drainage and denies odor or redness from the leg ulcer. He denies foot ulcer drainage. He had vascular surgery intervention performed previously in 2018 and again this past month with Dr. Shannon. He continues to use cam walker. He denies fever, chill, nausea, vomiting, loss of appetite, or respiratory symptoms, or cough. he denies drainage and think it may have healed. Progress of Wound: Healed left foot ulcer. Healed leg ulcer left - Physical Exam Vital Signs Temp Pulse Resp BP 98.1 F 70 22 H 147/54 H 07/10/19 09:03 07/10/19 09:03 07/10/19 09:03 07/10/19 09:03 General: Alert, Oriented x3, Cooperative Extremities: No cyanosis, Capillary Refill Less than 3 Seconds, No Calf Tenderness, Diminished Peripheral Pulses Skin: Ulcer/ Wound - full epithelialization to leg and foot. no purulence, no erythema, no streaking, no odor Wound Measurements and Assessment WC - Nurse 1 - General Ulcer Measurement Start: 06/26/19 09:02 Freq: Status: Active Protocol: Activity Type Activity Date Activity User E-Sign Co-Sign Detail Recorded Client Recorded Date Recorded By Document 07/10/19 09:03 DL [id number] 07/10/19 09:13 DL 07/10/19 09:03 Wound Center Nurse 1 [Ulcer Assessment] #4 L Med Martin -Current Size (cm) - Length 0 -Current Size (cm) - Width 0 -Current Size (cm) - Depth 0 -Total Square Cm 0 -Photo Taken Yes -Exudate Amt None Present -Wound Margin Flat & Intact -Granulation Amt Large (67-100%) -Granulation Quality [place] -Slough/Fibrin No -Necrosis Amt None Present (0 %) -Structure Exposed N/A -Texture (Fiona-wound Skin Appearance) Scarring -Moisture (Fiona-wound Skin Appearance Dry/Scaly ) -Color (Fiona-wound Skin Appearance) Hemosiderin Staining -Temperature (Fiona-wound Skin No Abnormality Appearance) (Pt Warm) -Tenderness on Palpation (Fiona-wound No Skin Appearance) -Ulcer Cleansing Rinsed/ Irrigated with Saline -Foul Odor after Cleansing No [Edema Assessment] -Right Calf (cm) 43 -Right Ankle (cm) 23.2 - Nurse 2 - General Ulcer CM Notes Start: 06/26/19 09:02 Freq: Status: Active Protocol: Activity Type Activity Date Activity User E-Sign Co-Sign Detail Recorded Client Recorded Date Recorded By Document 07/10/19 09:53 [id number] 07/10/19 09:54 07/10/19 09:53 Wound Center Nurse 2 [Procedure/Treatment] #4 L Med Martin -Correct Patient No -Correct Side, Site, Position No -Correct Procedure No -Procedure Performed No -Post Debridement Size (cm) - Length 0 -Post Debridement Size (cm) - Width 0 -Post Debridement Size (cm) - Depth 0 -Total Square Cm 0 -Wound/Ulcer Outcome Healed- Epithelialized [See Physician Procedure note for Specifics] Pain Scale: 0-10 Numeric [Pain] -Is Patient Pain Free? Yes Musculoskeletal: No Tenderness to Palpation of Joints or Extremities, Muscle Wasting Neurological: - - lack of normal sensation Psych/Mental Status: Normal Affect, Appropriate Debridement Note Post-Debridement Measurements/Treatment - Nurse 2 - General Ulcer CM Notes Start: 06/26/19 09:02 Freq: Status: Active Protocol: Activity Type Activity Date Activity User E-Sign Co-Sign Detail Recorded Client Recorded Date Recorded By Document 06/26/19 09:17 [id number] 06/26/19 09:22 Document 07/03/19 10:18 [id number] 07/03/19 10:20 Document 07/10/19 09:53 [id number] 07/10/19 09:54 JF 06/26/19 07/03/19 07/10/19 09:17 10:18 09:53 Wound Center Nurse 2 #4 L Med Martin -Time 09:21 10:19 -Correct Patient Yes Yes No -Correct Side, Site, Position Yes Yes No -Correct Procedure Yes Yes No -Procedure Performed Yes Yes No -Type of Procedure Debridement Debridement -Clinical Debridement Subcutaneous Subcutaneous -Post Debridement Size (cm) - Length 1.6 0.4 0 -Post Debridement Size (cm) - Width 0.9 0.4 0 -Post Debridement Size (cm) - Depth 0.1 0.1 0 -Total Square Cm 1.44 0.16 0 -Wound/Ulcer Outcome Not Healed Not Healed Healed- Epithelialized -Ulcer Cleansing Rinsed/ Rinsed/ Irrigated with Irrigated with Saline Saline -Foul Odor after Cleansing No No -Bioengineered Tissue No No -Bleeding Controlled with Pressure Pressure -Offloading No No -Treatment Response Procedure Procedure Tolerated Well Tolerated Well #3- L PLANTAR -Time 09:19 -Correct Patient Yes No -Correct Side, Site, Position Yes No -Correct Procedure Yes No -Procedure Performed Yes No -Type of Procedure Debridement -Clinical Debridement Subcutaneous -Post Debridement Size (cm) - Length 0.1 0 -Post Debridement Size (cm) - Width 0.1 0 -Post Debridement Size (cm) - Depth 0.1 0 -Total Square Cm 0.01 0 -Wound/Ulcer Outcome Not Healed Healed- Epithelialized -Ulcer Cleansing Rinsed/ Irrigated with Saline -Foul Odor after Cleansing No -Bioengineered Tissue No -Bleeding Controlled with Pressure -Offloading Yes -Type of Offloading Surgical Shoe -Treatment Response Procedure Tolerated Well Pain Scale: 0-10 Numeric Is Patient Pain Free? Yes Yes Yes No debridement was completed today - healed Assessment/Plan Assessment: Type 2 diabetes, uncontrolled with neuropathy, venous insufficiency, ulcer of left plantar foot healed, obesity, peripheral vascular disease, colonization resolved, left leg ulcer healed Plan: I discussed his ongoing treatment recommendations. This is healed without infection. To d/c dressing. To monitor for reoccurence. To keep skin integrity intact with daily moisturizing. To continue with edema management with compression and elevation. To return [facility] one month or sooner if concerns. I answered his questions.
== END 2019-07-21 23:59 ==
LOC: WC 09:00
PROVIDERS: Family Provider Internal Medicine; PCP Internal Medicine; Referring Provider Podiatrist; Visit Provider Podiatrist
DX: E11.621 Type 2 diabetes mellitus with foot ulcer (principal); E11.42 Type 2 diabetes mellitus with diabetic polyneuropathy; L97.522 Non-pressure chronic ulcer of other part of 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; E66.9 Obesity, unspecified; Z68.42 Body mass index [BMI] 45.0-49.9, adult; I87.2 Venous insufficiency (chronic) (peripheral); I50.9 Heart failure, unspecified; E11.51 Type 2 diabetes mellitus with diabetic peripheral angiopathy without gangrene
CPT/HCPCS: 11042; 99213; G0463

== ENCOUNTER → 2019-08-28 | Outpatient (CLI) | payer BC, SELFPAY ==
[2019-08-28 16:06] LABS: International Normalized Ratio 2.1; Prothrombin Time (Protime)PT. 23.2 SECONDS (11.7-14.9)
== END | disposition home or self-care (01) ==
LOC: LABSPEC 15:19
PROVIDERS: PCP Internal Medicine; Referring Provider Internal Medicine; Visit Provider Internal Medicine
DX: I48.91 Unspecified atrial fibrillation (principal); Z79.01 Long term (current) use of 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
CPT/HCPCS: 85610

== ENCOUNTER 2020-05-23 08:32 | Inpatient (IN) | payer OTHER, SELFPAY ==
[2020-05-23] VITALS (27 sets, daily range): BP systolic 106–177; BP diastolic 65–93; PULSE 83–142; RESP 10–46; TEMP 36.3–37.7; O2SAT 83–100; BMI 52.4; BMI 51.2
--- NOTE | 2020-05-23 08:50 | EKG12_ITS ---
Test Reason : CP Blood Pressure : / mmHG Vent. Rate : 133 BPM Atrial Rate : 147 BPM P-R Int : 000 ms QRS Dur : 096 ms QT Int : 268 ms P-R-T Axes : 000 084 116 degrees QTc Int : 398 ms Atrial fibrillation Low voltage QRS Marked ST abnormality, possible lateral subendocardial injury Abnormal ECG Confirmed by DIANA HARVEY, LAURA ([id number]), associate entertainment editor ZACHARIAH ABURTO ([id number]) on 05/29/2020 3:11:44 PM Referred By: CARRIE SMITH Confirmed By:LAURA ORTIZ MD
--- NOTE | 2020-05-23 08:50 | RAD_ITS ---
STUDY: X-RAY CHEST REASON FOR EXAM: Male, 60 years old. Pain, history of congestive heart failure. TECHNIQUE: Single AP portable view of the chest. COMPARISON: 12/02/2016. FINDINGS: Prominence of the pulmonary vasculature. Slightly more prominent markings in the right lung base. There is no demonstrated pleural abnormality. There is moderate cardiac enlargement. Normal mediastinum and sachi. Normal visualized pulmonary arteries. Normal visualized aortic arch and descending thoracic aorta. Stable osseous structures. There is no demonstrated abnormality of the visualized soft tissue structures of the upper abdomen. RAD/Chest 1 View (Portable) IMPRESSION: Cardiomegaly and pulmonary venous congestion. Superimposed mild infiltrate in right lung base is difficult to entirely exclude. Electronically Signed: Nate Bobby MD at 9:23 EDT Tel , Service support ,
--- NOTE | 2020-05-23 08:56 | ED.DCSUM_ITS ---
History of Present Illness Chief Complaint: Chest Pain Informant: Patient Narrative: Patient is a 60-year-old male with a past medical history of atrial fibrillation on warfarin, kidney disease, diabetes, hypertension who presents to the emergency department for substernal chest tightness. He has had this issue off and on since 2019. He has been worked up including an EGD. They have not found any reason for this. This last episode flared up over the past week. It comes and goes. Does not know aggravating or relieving factors. He states that the pain was very severe this morning which is the reason for coming to the emergency department. He currently rates the chest tightness as an 8 out of 10. It does not radiate. Whenever he belches this does seem to give him good relief but is short-lived. He denies any shortness of breath associated with this. He has a very distant history of DVT in his leg in the early . He denies a cough or fever/chills. He denies any abdominal pain. No nausea or vomiting. He has a former smoking history. Past Medical History - Allergies and Home Meds Allergies/Adverse Reactions: Allergies cephalexin Allergy (Verified 05/23/20 08:40) Hives Penicillins Allergy (Verified 05/23/20 08:40) Hives Prior records reviewed: Yes Surgical History: noncontributory, - - carpal tunnel syndrom surgery Smoking Status: Former smoker - Family History Maternal Family History: Reports: Heart Disease Review of Systems All systems negative except as indicated General: Denies: Chills, Fever, Sweats Eyes: Denies: Visual changes - bilaterally, Diplopia ENT: Denies: Rhinorrhea, Sore throat Cardiovascular: Reports: Chest pain. Denies: Palpitations Respiratory: Denies: Dyspnea, Cough, Dyspnea on exertion Gastrointestinal: Denies: Abdominal pain, Nausea, Vomiting, Diarrhea Genitourinary: Denies: Dysuria, Hematuria, Frequency Musculoskeletal: Denies: Back pain, Extremity Pain Skin: Denies: Rash, Wounds Neurological: Denies: Headache, Weakness, Numbness Physical Exam Vital Signs/Narrative: Vital Signs Temp Pulse Resp BP Pulse Ox 05/23/20 08:50 94 05/23/20 08:33 97.5 F L 93 24 H 177/83 H 89 Inital Vital Signs reviewed: Yes General: Well nourished, Well developed, No Acute Distress, - - Patient belching frequently throughout exam. Head: Normocephalic, Atraumatic Eyes: Perrl, EOMI ENT: Moist mucous membranes, No rhinorrhea Neck: Supple, Nontender Cardiovascular: Regular rate, No murmurs, Irregular Respiratory: No distress, CTA bilaterally, Chest nontender Abdomen: Soft, Nontender, Nondistended, Normal bowel sounds Back: Nontender, Normal Inspection Extremities: Nontender, Edema - Peripheral edema of lower extremities. Right worse than the left which is chronic for him.. Negative for: Calf Tenderness Skin: Normal color, No rash Neurological: Alert, Oriented x3, Cranial nerves II-XII grossly intact, Normal Strength, Normal Sensation Psychological: Normal affect, Normal Mood Diagnostic/Tx/Re-eval Chest X-Ray - ED: 1 View - Single view portable x-ray interpreted by myself. Pulmonary vascular congestion present. Enlarged cardiac silhouette. No large pleural effusion. Normal mediastinum. - EKG Initial EKG Interpretation: - - Rate of 91 bpm and irregularly irregular rhythm. Normal intervals. Normal axis. There is baseline artifact skewing interpretation but no significant ST elevations or depressions appreciated. No T wave abnormalities. - Medical Decision Making Patient presents to the emergency department for chest tightness that is substernal. This is a acute on chronic issue for him. Patient belching frequently throughout exam and he feels like this does give him some relief. EKG was attempted to be obtained on arrival but had significant artifact. Multiple EKGs were attempted to be obtained to correct this but still had a decent amount of artifact. I could not appreciate any ST elevations or depressions. It was in a regular rhythm. Chest x-ray and basic lab work being obtained at this point. Patient's work-up revealed him to be anemic. He denies having any melanotic stools. No other blood loss. This could be of chronic disease. His creatinine has worsened since the last lab draw as well. His troponin is within normal limits. X-ray consistent with pulmonary vascular congestion. Believe he is in a CHF exacerbation given his lower extremity edema as well. He is given a dose of 40 mg of Lasix IV. Will bring into the hospital for further evaluation and m anagement. He is agreeable and understands this plan. ED Disposition - Plan for ED Patient: Disposition: Acute Care Hospital [facility] Diagnosis: Chest pain, Acute exacerbation of CHF (congestive heart failure), Anemia, Atnax-ir-[id number] kidney injury, Atrial fibrillation
[2020-05-23 09:02] LABS: Absolute Lymphocyte Count 2.17 X10^3/uL (0.83-4.51); Absolute Neutrophil Count 8.6 X10^3/uL (2.0-7.7); Basophil# 0.04 X10^3/uL; Basophil% 0.3 % (0-1); Eosinophil# 0.28 X10^3/uL; Eosinophils% 2.3 % (0-5); Hematocrit 24.8 % (40-54); Hemoglobin 7.5 g/dL (13.0-16.5); Lymphocyte # 2.17 X10^3/ul (4.0); Lymphocyte % 17.6 % (19-41); Mean Corp Hgb Conc 30.2 g/dL (32-36); Mean Corpuscular Hgb 27.6 pg (27.0-32.0); Mean Corpuscular Volume 91.2 fL (80-94); Mean Platelet Vol. 10.1 fl (6.2-12.0); Monocyte# 1.17 X10^3/uL; Monocyte% 9.5 % (0-10); NRBC Flagged by Analyzer 0 % (0-5); Platelet Count 245 K/mm3 (150-450); RBC Distribution Width CV 14.6 % (11.6-14.6); RBC Distribution Width SD 48.5 fl (35.1-43.9); Red Blood Count 2.72 M/mm3 (4.6-6.2); White Blood Count 12.3 K/mm3 (4.4-11.0)
[2020-05-23 09:09] LABS: International Normalized Ratio 3.2; Prothrombin Time (Protime)PT. 31.7 SECONDS (11.7-14.9)
[2020-05-23 09:16] LABS: Anion Gap 12 (5-15); BUN 60 mg/dL (7-18); BUN/Creat Ratio 13.3 RATIO (10-20); Calcium,Total 8.4 mg/dL (8.5-10.1); Chloride 108 mmol/L (98-107); Creatinine, Serum 4.52 mg/dL (0.70-1.30); EST Glomerular Filtration Rate 14 mL/min (>60); Est Glom Filt Rate - Afr Amer 17 mL/min (>60); Estimated Creatinine Clearance 17.02 ml/min; Glucose 149 mg/dL (74-106); Magnesium 2.2 mg/dL (1.6-2.6); Sodium Level 140 mmol/L (136-145)
[2020-05-23 09:22] LABS: BNP,B-Type NATRIURETIC PEPTIDE 372.3 pg/mL (0-100)
[2020-05-23] MEDS: Furosemide 40 MG/4 ML Vial IV ×3 (09:53→20:11)
--- NOTE | 2020-05-23 11:27 | PCM.HP.STD ---
Problem List (1) Chest pain Status: Acute (2) Anemia Status: Chronic (3) Chronic 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 Status: Resolved (4) Equinus contracture of left ankle Status: Chronic (5) Edema of left lower leg due to peripheral venous insufficiency Status: Chronic (6) Other specified peripheral vascular diseases Status: Chronic (7) Type 2 diabetes mellitus with diabetic polyneuropathy Status: Chronic (8) Hammer toe of left foot Status: Chronic (9) Delayed wound healing Status: Chronic (10) Malnutrition Status: Suspected (11) Colonization status Status: Chronic (12) Ulcer of left lower extremity with fat layer exposed Status: Resolved (13) Diastolic CHF, acute Status: Acute (14) Depression Status: Chronic (15) Essential hypertension Status: Chronic (16) Morbid obesity Status: Chronic (17) Type 2 diabetes mellitus Status: Chronic (18) History of DVT of lower extremity Status: Chronic (19) CHF (congestive heart failure) Status: Acute Qualifiers: Qualified Code(s): I50.31 - Acute diastolic (congestive) heart failure (20) (HFpEF) heart failure with preserved ejection fraction Status: Acute History of Present Illness Date of Admission: 05/23/20 Chief Complaint: chest pain The patient is a 60 year old M presents with chest pain. Chest pain is been ongoing for some time now and has had extensive GI work-up which has come back unremarkable. Patient is that he gets his midsternal chest pain is alleviated by belching and. Sometimes his chest pain is aggravated by exertion and is just been progressive and more intense as of late. Denies radiation. Does feel short of breath and has had increased lower extremity edema but is not checking his weights daily so it is unclear if he is put on more weight. He presented to the emergency room where he was 89% on room air, hemoglobin was 7.5 which was down from 11.3 from June 12, 2019 and his creatinine has gone up to 4.52 from 3.29 from June 12, 2019. Patient did receive IV furosemide in the emergency room. With the patient his anemia, he denies any hematochezia nor melena. [] Past Medical History Past Medical History (Chronic Problems): Chronic Problems Equinus contracture of left ankle (Chronic) Edema of left lower leg due to peripheral venous insufficiency (Chronic) Other specified peripheral vascular diseases (Chronic) Type 2 diabetes mellitus with diabetic polyneuropathy (Chronic) Hammer toe of left foot (Chronic) Delayed wound healing (Chronic) Colonization status (Chronic) Anemia (Chronic) Depression (Chronic) Essential hypertension (Chronic) Morbid obesity (Chronic) Type 2 diabetes mellitus (Chronic) History of DVT of lower extremity (Chronic) Allergies cephalexin Allergy (Verified 05/23/20 08:40) Hives Penicillins Allergy (Verified 05/23/20 08:40) Hives Home Medications: Ambulatory Orders Medication Instructions Recorded Ascorbic Acid [Vitamin C] 1,000 mg PO DAILY 12/02/16 Buspirone HCl 10 mg PO DAILY 12/02/16 Carvedilol [Coreg (Beta Federico)] 12.5 mg PO BID 12/02/16 Cholecalciferol (VIT D3) [Vitamin 1,000 unit PO DAILY 12/02/16 D3] Dicyclomine HCl 20 mg PO TID 12/02/16 Gabapentin [Neurontin] 600 mg PO BID 12/02/16 Multivitamin [Multiple Vitamins] 1 each PO DAILY 12/02/16 Nifedipine [Nifedipine ER] 90 mg PO DAILY 12/02/16 Pravastatin Sodium 80 mg PO DAILY 12/02/16 Psyllium Husk (with Sugar) 3.4 gm PO PRN PRN 12/02/16 [Metamucil Packet] Ranitidine [Zantac] 150 mg PO BID 12/02/16 Venlafaxine XR [Effexor Xr] 150 mg PO DAILY 12/02/16 Warfarin [Coumadin] 11 mg PO MOTUTHFR 12/02/16 Warfarin [Coumadin] 12 mg PO SUWESA 12/02/16 Furosemide [Lasix] 40 mg PO BID #60 tablet 12/04/16 Atorvastatin Calcium 40 mg PO DAILY 05/23/20 Clopidogrel Bisulfate [Clopidogrel] 75 mg PO DAILY 05/23/20 Glipizide [Glipizide ER] 5 mg PO DAILY 05/23/20 Pyridoxine HCl (Vitamin B6) 100 mg PO DAILY 05/23/20 [Vitamin B-6] Sodium Bicarbonate 650 mg PO BID 05/23/20 hydrALAZINE [Apresoline] 25 mg PO TID 05/23/20 Surgical History: noncontributory, - - carpal tunnel syndrom surgery Smoking Status: Former smoker - *Family History Maternal History Items: Heart Disease Review of Systems Constitutional: Denies: Anorexia, Chills, Fever, Night Sweats Eyes: Denies: Blurred vision, Double vision HEENT: Denies: Head Aches, Sinus Congestion, Sinus Drainage Cardiovascular: Reports: Chest Pain, Edema Respiratory: Reports: Shortness of Breath, Shortness of breath upon exertion Gastrointestinal: Reports: Abdominal Pain - Epigastric. Denies: Hematochezia, Nausea, Melena, Vomiting Genitourinary: Denies: Dysuria Musculoskeletal: Denies: Joint Pain, Joint Tenderness Skin: Denies: Rash, Wounds Neurological: Denies: Numbness, Tingling, Focal weakness Psychiatric: Denies: Anxiety, Depression Hematologic/ Lymphatic: Denies: Easy Bruising, Easy Bleeding, Hx of blood clot Comment: All review of systems were negative except as mentioned above in the history of present illness and the other review of systems. VTE Information - Inpt Only VTE Present on Admission: No VTE Mechan Device Prophylaxis: None VTE Pharm Prophylaxis ordered?: No Reason prophylaxis not ordered:: Treatment Not Indicated - Physical Exam Vitals/I&O's: Vital Signs Temp Pulse Resp BP Pulse Ox 36.7 C 85 18 143/80 H 92 05/23/20 11:05 05/23/20 11:05 05/23/20 11:05 05/23/20 11:05 05/23/20 11:05 Oxygen Flow Rate (L/min) 4 Oxygen Delivery Method Nasal Cannula Weight: 153.4 kg Body Mass Index (BMI) 51.2 General: Alert, Cooperative, No apparent distress, Well developed, Well nourished HEENT: Atraumatic, Normocephalic Neck: No Nodes, Thyroid Normal Size and Texture Lungs: Diminished, - - crackles throughout. Cardiovascular: Regular rate, Regular Rhythm, Normal S1, Normal S2, No murmurs Abdomen: Bowel Sounds Present, Soft, Non Tender, Non-Distended, No Hepato-splenomegaly Extremities: No Calf Tenderness, Edema Skin: No rashes, No breakdown Musculoskeletal: No Tenderness to Palpation of Joints or Extremities, No Muscle Wasting Neurological: Deep Tendon Reflexes 2+/4 and Symmetrical, Muscle tone normal Psych/Mental Status: Normal Affect, Appropriate Laboratory Results 05/23/20 08:40: WBC 12.3 H, RBC 2.72 L, Hgb 7.5 L, Hct 24.8 L, MCV 91.2, MCH 27.6, MCHC 30.2 L, RDW Std Deviation 48.5 H, RDW Coeff of Kassandra 14.6, Plt Count 245, MPV 10.1, Immature Gran % (Auto) 0.300, Neut % (Auto) 70.0, Lymph % (Auto) 17.6 L, Andrews % (Auto) 9.5, Eos % (Auto) 2.3, Baso % (Auto) 0.3, Absolute Neuts (auto) 8.6 H, Absolute Lymphs (auto) 2.17, Nucleated RBC % 0 05/23/20 08:40: PT 31.7 H, INR 3.2 05/23/20 08:40: Sodium 140, Potassium 4.0, Chloride 108 H, Carbon Dioxide 20.0 L, Anion Gap 12, BUN 60 H, Creatinine 4.52 H, Estim Creat Clear Calc 17.02, Est GFR (MDRD) Af Amer 17 L, Est GFR (MDRD) Non-Af 14 L, BUN/Creatinine Ratio 13.3, Glucose 149 H, Calcium 8.4 L, Magnesium 2.2, Troponin I 0.030 05/23/20 08:40: B-Natriuretic Peptide 372.3 H EKG showed A. fib but rate controlled. Chest x-ray personally reviewed and showed slight pulmonary vascular congestion throughout. Current Medications Sodium Chloride (0.9% Saline Lock 10 Ml Syringe) 10 - 40 ml IV UD PRN PRN Reason: SALINE FLUSH Assessment/Plan All Active Problems Chronic 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 (Resolved) Ulcer of left lower extremity with fat layer exposed (Resolved) Chest pain (Acute) (HFpEF) heart failure with preserved ejection fraction (Acute) Diastolic CHF, acute (Acute) CHF (congestive heart failure) (Acute) 1. Acute heart failure with preserved ejection fraction exacerbation EF 55% from to echocardiogram from 09/10/2012 Changes furosemide over to 40 mg twice daily IV from oral. Patient not a candidate for SRINIVASA inhibitor nor angiotensin receptor federico given chronic kidney disease stage IV-V. Continue hydralazine Check 2D echocardiogram 2. Chest pain Atypical Patient has had a GI work-up which patient states was unremarkable. Will request records from [facility] [place]. Since his symptoms are atypical, will change his ranitidine over to pantoprazole and start him on simethicone. JONNA score 3, Carolina score 94 Plan for a nuclear chemical stress test on 05/25/2020. Cycle troponins, check fasting lipid panel 3. Anemia Concerned that this may be symptomatic anemia as well causing some symptoms in regards to dyspnea and chest pain Will transfuse 1 unit of packed red blood cells Anemia is more pronounced than it was a year ago but this may be anemia of chronic disease Will check Hemoccult plus also other iron studies Goal hemoglobin is 8 or more given the patient's underlying coronary artery disease 4. Chronic kidney disease stage IV-V Worse than it was a year ago. I suspect this is just been a chronic progression rather than acute derangement Monitor closely If worse may need to consult nephrology while in the hospital No immediate needs for renal replacement therapy at this time. We will adjust gabapentin to a safer renal dose of 100 twice daily Continue with sodium bicarbonate 5. Diabetes mellitus type 2 Hold glipizide given the worsening kidney disorder Sliding scale insulin Check an A1c 6. Coronary artery disease Continue with clopidogrel, carvedilol 7. Atrial fibrillation Persistent Rate controlled Continue with carvedilol and warfarin. INR 3.2 today so we will hold off on warfarin today. 8. VTE prophylaxis: Not indicated as patient is anticoagulated 9. Advanced care planning: Patient was to be full CODE STATUS. Inpatient E&M: 62205 Init Hosp L3
--- NOTE | 2020-05-23 11:42 | EKG12_ITS ---
Test Reason : CP Blood Pressure : / mmHG Vent. Rate : 091 BPM Atrial Rate : 192 BPM P-R Int : 000 ms QRS Dur : 086 ms QT Int : 366 ms P-R-T Axes : 000 057 063 degrees QTc Int : 450 ms Atrial fibrillation Nonspecific ST and T wave abnormality Abnormal ECG Confirmed by DIANA HARVEY, LAURA ([id number]), commissioning editor CRISTY VARELA ([id number]) on 05/27/2020 7:45:23 AM Referred By: ALBERT Confirmed By:LAURA ORTIZ MD
--- NOTE | 2020-05-23 11:42 | ECHOCS_ITS ---
Reason For Study: CHF Left Ventricle Normal LV size. Moderate concentric left ventricular hypertrophy. Left ventricular systolic function is normal. The estimated ejection fraction is 60 %. Stage 2 diastolic dysfunction. No regional wall motion abnormalities noted. Right Ventricle Normal RV size. Normal systolic function. Atria The left atrium is moderately enlarged. Normal right atrium. Mitral Valve Normal mitral valve. Tricuspid Valve Normal tricuspid valve. Pulmonary artery systolic pressure is 42 mmHg. Mild pulmonary hypertension. Aortic Valve The aortic valve is not well visualized. Mild aortic stenosis. Pulmonic Valve Normal pulmonic valve. Great Vessels Normal aortic root. Pericardium/Pleural Small pericardial effusion. There are no echocardiographic indications of cardiac tamponade. MMode/2D Measurements & Calculations LVIDd: 4.9 cm IVSd: 1.5 cm Ao root diam: 3.4 cm LVIDs: 3.6 cm LVPWd: 1.4 cm RVDd: 4.0 cm FS: 27.3 % LAV(MOD-bp): 92.8 ml LVAd ap4: 28.0 cm2 SV(MOD-sp4): 42.3 ml LAV(MOD-bp) Indexed: 36.6 ml/m2 EDV(MOD-sp4): 80.8 ml LAV(MOD-sp2): 98.2 ml EDV(sp4-el): 81.0 ml LAV(MOD-sp4): 87.7 ml LVAs ap4: 17.4 cm2 ESV(MOD-sp4): 38.5 ml ESV(sp4-el): 38.7 ml EF(MOD-sp4): 52.4 % EF(sp4-el): 52.3 % SV(sp4-el): 42.4 ml LA dimension(2D): 5.6 cm LA A4 area: 28.0 cm2 RA A4 area: 18.1 cm2 Time Measurements MV dec time: 0.20 sec Doppler Measurements & Calculations MV E max leon: 144.9 cm/sec Lat Peak E' Leon: 13.1 cm/sec Med Peak E' Leon: 8.7 cm/sec MV A max leon: 86.3 cm/sec E/E' lat: 11.1 E/E' med: 16.6 MV E/A: 1.7 MV V2 max: 158.5 cm/sec MV P1/2t max leon: 155.5 cm/sec Ao V2 max: 181.3 cm/sec MV max P.1 mmHg MV P1/2t: 61.5 msec Ao max P.2 mmHg MV V2 mean: 78.9 cm/sec Ao V2 mean: 128.6 cm/sec MV mean P.0 mmHg MV dec slope: 740.7 cm/sec2 Ao mean P.2 mmHg MV V2 VTI: 40.3 cm MVA(P1/2t): 3.6 cm2 Ao V2 VTI: 36.2 cm LV V1 max: 120.3 cm/sec PA V2 max: 109.5 cm/sec TR max leon: 307.8 cm/sec LV V1 max P.8 mmHg TR max P.9 mmHg ECHO/Echo Complete W/ Contrast Interpretation Summary Normal LV size. Moderate concentric left ventricular hypertrophy. Left ventricular systolic function is normal. The estimated ejection fraction is 60 %. Stage 2 diastolic dysfunction. Pulmonary artery systolic pressure is 42 mmHg. Mild pulmonary hypertension. Small pericardial effusion. There are no echocardiographic indications of cardiac tamponade. Ordering Physician: Immanuel Ken Referring Physician: Yola Ng Performed By: Brisa Franklin, JERRY, RVT
[2020-05-23 12:20] LABS: Ferritin 43 ng/mL (26-388); Iron 37 ug/dL (65-175); Iron Binding Capacity,Total 376 ug/dL (250-450); PERCENT IRON SATURATION 9.8 % (15.0-55.0)
[2020-05-23] MEDS: Dicyclomine 10 MG Capsule 20 MG PO ×2 (12:25→17:05)
[2020-05-23] MEDS: Pantoprazole Sodium 40 MG Tablet PO (12:25)
[2020-05-23] MEDS: Clopidogrel Bisulfate 75 MG Tablet PO (12:26)
[2020-05-23] MEDS: hydrALAZINE 25 MG Tablet PO ×2 (12:26→22:12)
[2020-05-23] MEDS: Carvedilol 12.5 MG Tablet PO ×2 (12:26→22:12)
[2020-05-23] MEDS: Gabapentin 100 MG Capsule PO ×2 (12:27→22:12)
[2020-05-23 17:20] LABS: Bedside Glucose 171 mg/dL (70-110)
[2020-05-23] MEDS: Insulin Lispro 100 UNIT/ML INSULN.PEN SC (18:01)
[2020-05-23] MEDS: 0.9% Saline Lock 10 ML Syringe IV ×5 (18:06→23:06)
[2020-05-23] MEDS: Nitroglycerin (INPATIENT USE) 0.4 MG TAB.SUBL SL ×2 (18:40→20:55)
--- NOTE | 2020-05-23 18:43 | NURSING ---
PATIENT C/O MIDSTERNAL CP FEELS LIKE GAS PER PATIENT CRACKLES NOTED DID GIVE IV LASIX BELCHING NTG GIVEN TO SEE IF IT WOULD HELP IS GIVING SOME RELIEF
--- NOTE | 2020-05-23 18:47 | NURSING ---
CP ALMOST RELIEVED PER PATIENT DOWN TO A 1
[2020-05-23] MEDS: Furosemide 20 MG/2 ML VIAL IV (19:36)
[2020-05-23] MEDS: Mag Hydrox/Al Hydrox/Simeth 30 ML UDC PO (21:00)
[2020-05-23] MEDS: LORazepam 2 MG/ML Syringe 1 MG IV (21:07)
[2020-05-23] MEDS: Metoprolol Tartrate 5 MG/5 ML Vial IV ×2 (21:49→23:05)
[2020-05-23] MEDS: Sodium Bicarbonate 650 MG Tablet PO (22:12)
[2020-05-23 22:21] LABS: Allen Test Positive; Base Excess -3 mmol/L (-2 to +2); Bicarbonate 20.7 mmol/L (22-26); Blood Gas Specimen Type ART; FI02 100; O2 Delivery Device BiPAP; PEEP 8; PO2 64 mmHG (75-100); SITE R Radial; SO2 93 % (95-99); Total Carbon Dioxide 22 mmol/L; pCO2 30.2 mmHg (35-45); pH 7.44 (7.35-7.45)
[2020-05-23 22:55] LABS: Bedside Glucose 181 mg/dL (70-110)
[2020-05-24] VITALS (32 sets, daily range): BP systolic 105–179; BP diastolic 54–86; PULSE 72–140; RESP 10–36; TEMP 36.6–37.9; O2SAT 91–100
[2020-05-24] MEDS: Metoprolol Tartrate 5 MG/5 ML Vial IV (00:17)
[2020-05-24 05:11] LABS: Absolute Lymphocyte Count 1.17 X10^3/uL (0.83-4.51); Absolute Neutrophil Count 9.3 X10^3/uL (2.0-7.7); Basophil# 0.03 X10^3/uL; Basophil% 0.3 % (0-1); Eosinophil# 0.02 X10^3/uL; Eosinophils% 0.2 % (0-5); Hematocrit 23.9 % (40-54); Hemoglobin 7.3 g/dL (13.0-16.5); Lymphocyte # 1.17 X10^3/ul (4.0); Lymphocyte % 10.1 % (19-41); Mean Corp Hgb Conc 30.5 g/dL (32-36); Mean Corpuscular Hgb 27.7 pg (27.0-32.0); Mean Corpuscular Volume 90.5 fL (80-94); Mean Platelet Vol. 10.1 fl (6.2-12.0); Monocyte# 1.05 X10^3/uL; Monocyte% 9.1 % (0-10); NRBC Flagged by Analyzer 0 % (0-5); Neutrophil # 9.29 X10^3/uL (2.7-7.7); Platelet Count 173 K/mm3 (150-450); RBC Distribution Width CV 14.6 % (11.6-14.6); RBC Distribution Width SD 47.8 fl (35.1-43.9); Red Blood Count 2.64 M/mm3 (4.6-6.2); White Blood Count 11.6 K/mm3 (4.4-11.0)
[2020-05-24 05:19] LABS: International Normalized Ratio 3.1; Prothrombin Time (Protime)PT. 30.8 SECONDS (11.7-14.9)
[2020-05-24 05:43] LABS: ALB/GLOB Ratio 0.7 RATIO (0.9-2.4); AST(SGOT) 17 U/L (15-37); Alanine Aminotransfer ALT/SGPT 18 U/L (16-61); Albumin, Serum 2.8 g/dL (3.2-5.0); Alkaline Phosphatase 79 U/L (45-117); Anion Gap 9 (5-15); BUN 69 mg/dL (7-18); BUN/Creat Ratio 14.7 RATIO (10-20); Calcium,Total 7.9 mg/dL (8.5-10.1); Chloride 110 mmol/L (98-107); Cholesterol 100 mg/dL (200); Creatinine, Serum 4.69 mg/dL (0.70-1.30); EST Glomerular Filtration Rate 14 mL/min (>60); Est Glom Filt Rate - Afr Amer 17 mL/min (>60); Estimated Creatinine Clearance 16.41 ml/min; Globulin 3.9 g/dL (2.2-4.2); Glucose 155 mg/dL (74-106); High Density Lipoprotein 32 mg/dL; Potassium 3.9 mmol/L (3.5-5.1); Protein, Total 6.7 g/dL (6.4-8.2); Sodium Level 142 mmol/L (136-145); Thyroid Stim Hormone (TSH) 0.66 uIU/mL (0.358-3.74); Triglycerides 83 mg/dL; Very Low Density Lipoprotein 17 mg/dL (5-40)
[2020-05-24] MEDS: hydrALAZINE 25 MG Tablet PO ×3 (06:06→21:48)
[2020-05-24] MEDS: Dicyclomine 10 MG Capsule 20 MG PO ×3 (06:06→16:09)
[2020-05-24 06:50] LABS: Bedside Glucose 150 mg/dL (70-110)
[2020-05-24] MEDS: Insulin Lispro 100 UNIT/ML INSULN.PEN SC ×3 (06:50→16:09)
[2020-05-24 08:13] LABS: Hemoglobin A1c 6.3 % (3.8-5.6)
[2020-05-24] MEDS: Ascorbic Acid 500 MG Tablet 1000 MG PO (08:23)
[2020-05-24] MEDS: NIFEdipine 90 MG Tablet PO (08:24)
[2020-05-24] MEDS: Pantoprazole Sodium 40 MG Tablet PO (08:24)
[2020-05-24] MEDS: busPIRone 5 MG Tablet 10 MG PO (08:24)
[2020-05-24] MEDS: Venlafaxine XR 150 MG Capsule PO (08:24)
[2020-05-24] MEDS: Carvedilol 12.5 MG Tablet PO ×2 (08:25→21:48)
[2020-05-24] MEDS: Multivitamins,Therapeutic Tablet 1 TABLET PO (08:25)
[2020-05-24] MEDS: Clopidogrel Bisulfate 75 MG Tablet PO (08:25)
[2020-05-24] MEDS: Gabapentin 100 MG Capsule PO ×2 (08:26→21:48)
[2020-05-24] MEDS: Pyridoxine HCl 100 MG Tablet PO (08:26)
[2020-05-24] MEDS: Cholecalciferol (VIT D3) 25 MCG TABLET (1,000 UNITS) PO (08:27)
[2020-05-24] MEDS: 0.9% Saline Lock 10 ML Syringe IV ×3 (09:47→21:56)
[2020-05-24] MEDS: Furosemide 40 MG/4 ML Vial IV ×2 (09:47→16:46)
[2020-05-24] MEDS: Sodium Bicarbonate 650 MG Tablet PO ×2 (09:47→21:56)
--- NOTE | 2020-05-24 10:02 | CON.PCM_ITS ---
Problem List (1) Chronic 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 Status: Resolved (2) Type 2 diabetes mellitus with diabetic polyneuropathy Status: Chronic (3) Malnutrition Status: Suspected (4) (HFpEF) heart failure with preserved ejection fraction Status: Acute (5) Acute exacerbation of CHF (congestive heart failure) Status: Chronic (6) Atrial fibrillation Status: Acute (7) Diastolic CHF, acute Status: Acute (8) Depression Status: Chronic (9) Essential hypertension Status: Chronic (10) Morbid obesity Status: Chronic (11) Type 2 diabetes mellitus Status: Chronic Reason for Consult Date of Consultation: 05/24/20 Reason for Consultation: Respiratory failure History of Present Illness: The patient is a 60 year old M, with past medical history listed below that typically gets his care from the [facility], who presented to [facility] on 05/23/2020 secondary to substernal chest tightness. Patient reportedly has had multiple work-ups in the past for congestive heart failure at the [facility] along with an EGD, but had noted some chest tightness approximately 3 days ago. Patient states that 2 days ago he started to have some lower extremity edema and gurgling in his chest. Patient reported the sensation is an 8 out of 10 and denies any radiation. Patient did believe this was improved with belching. Patient did not report any productive cough, fever, chills, nausea or vomiting. Patient does have a positive smoking history, but is never been worked up by a emu farmer. On presentation to the ER, patient was hypertensive at 177/83 and saturating 89%. Patient was not febrile. EKG was obtained, but difficult to interpret secondary to artifacts. Laboratory work-up showed patient had worsening of his anemia. Patient's baseline hemoglobin was approximate 9.5 and patient was in the sevens. X-ray was consistent with pulmonary vascular congestion, so patient was given 40 mg of Lasix and admitted to the hospital for further evaluation. Since being in the hospital, patient did progress and required BiPAP overnight. Patient feels subjectively improved this morning, but is still requiring significant nasal cannula oxygen to maintain saturations. Patient states he has had previous admissions with similar type symptoms that were diagnosed as congestive heart failure. Patient also reports he has had recurrent belching and stomach issues that have been evaluated with an EGD that was unremarkable. Patient does report a 40+ pack year smoking history, but does not have a emu farmer and has never had a pulmonary function test. Patient does not use any inhalers at baseline. Patient states he has required oxygen while in the hospital on previous congestive heart failure admissions, but was never discharged home with oxygen. Patient is on disability secondary to peripheral vascular disease and foot issues. Patient does report that he was diagnosed with obstructive sleep apnea previously. Patient states he has gained weight since that time, but is noncompliant with therapy secondary to insurance issues leading to a lack of supplies. Patient did report that he was thinking about starting it back up. Review of systems otherwise negative from a constitutional, HEENT, respiratory, cardiovascular, GI, genitourinary, musculoskeletal, skin, neurologic, psychiatric and hematologic system unless stated above. Past Medical History Past Medical History (Chronic Problems): Chronic Problems Equinus contracture of left ankle (Chronic) Edema of left lower leg due to peripheral venous insufficiency (Chronic) Other specified peripheral vascular diseases (Chronic) Type 2 diabetes mellitus with diabetic polyneuropathy (Chronic) Hammer toe of left foot (Chronic) Delayed wound healing (Chronic) Colonization status (Chronic) Anemia (Chronic) Acute exacerbation of CHF (congestive heart failure) (Chronic) [id number] kidney injury (Chronic) Depression (Chronic) Essential hypertension (Chronic) Morbid obesity (Chronic) Type 2 diabetes mellitus (Chronic) History of DVT of lower extremity (Chronic) Allergies cephalexin Allergy (Verified 05/23/20 08:40) Hives Penicillins Allergy (Verified 05/23/20 08:40) Hives Home Medications: Ambulatory Orders Medication Instructions Recorded Ascorbic Acid [Vitamin C] 1,000 mg PO DAILY 12/02/16 Buspirone HCl 10 mg PO BID 12/02/16 Carvedilol [Coreg (Beta Federico)] 12.5 mg PO BID 12/02/16 Cholecalciferol (VIT D3) [Vitamin 1,000 unit PO DAILY 12/02/16 D3] Dicyclomine HCl 20 mg PO TID 12/02/16 Gabapentin [Neurontin] 600 mg PO BID 12/02/16 Multivitamin [Multiple Vitamins] 1 each PO DAILY 12/02/16 Nifedipine [Nifedipine ER] 90 mg PO QHS 12/02/16 Psyllium Husk (with Sugar) 3.4 gm PO PRN PRN 12/02/16 [Metamucil Packet] Venlafaxine XR [Effexor Xr] 150 mg PO DAILY 12/02/16 Warfarin [Coumadin] 12.5 mg PO DINNER 12/02/16 Atorvastatin Calcium 40 mg PO DAILY 05/23/20 Clopidogrel Bisulfate [Clopidogrel] 75 mg PO DAILY 05/23/20 Furosemide [Lasix] 40 mg PO DAILY 05/23/20 Glipizide [Glipizide ER] 5 mg PO DINNER 05/23/20 Insulin NPH Human Isophane 12 units SQ QHS 05/23/20 [Humulin N Kwikpen] Pyridoxine HCl (Vitamin B6) 100 mg PO DAILY 05/23/20 [Vitamin B-6] Sodium Bicarbonate 650 mg PO BID 05/23/20 hydrALAZINE [Apresoline] 25 mg PO TID 05/23/20 Surgical History: noncontributory, - - carpal tunnel syndrom surgery Smoking Status: Former smoker - *Family History Maternal History Items: Heart Disease Review of Systems Comment: See HPI Patient Problems: Active and Suspected Problems Malnutrition (Suspected) Chest pain (Acute) (HFpEF) heart failure with preserved ejection fraction (Acute) Atrial fibrillation (Acute) Diastolic CHF, acute (Acute) CHF (congestive heart failure) (Acute) Objective: All imaging was personally reviewed. Agree with formal interpretation. Previous records from [facility] were reviewed. Patient had a hemoglobin of 9.6 in March. Patient has also had multiple cardiac investigations showing a preserved ejection fraction without quantification of pulmonary artery pressures. No pulmonary function test is available for review. - Physical Exam Vitals/I&O's: Vital Signs Temp Pulse Resp BP Pulse Ox 36.8 C 73 18 155/86 H 94 05/24/20 08:59 05/24/20 08:59 05/24/20 08:59 05/24/20 08:59 05/24/20 08:59 Oxygen Flow Rate (L/min) 8 Oxygen Delivery Method Nasal Cannula Weight: 150.8 kg Body Mass Index (BMI) 51.2 Intake and Output for Last 24 Hours 05/22/20 05/23/20 05/24/20 23:59 23:59 23:59 Intake Total 720 / 720 200 / 200 Output Total 850 / 850 Balance -130 / -130 200 / 200 General: Alert, Oriented x3, Cooperative, - - Mild conversational dyspnea on nasal cannula HEENT: Atraumatic, PERRLA, EOMI, Normocephalic, - - No epistaxis. Oral: Moist Mucosa, No Gingival or Mucosal Lesions/ Ulcerations, - - Crowded posterior pharynx Neck: Supple, No Nodes, Trachea Midline Lungs: No rhonchi, No wheeze, No rales, Diminished, - - Fair effort. Symmetric expansion. Cardiovascular: Normal S1, Normal S2, No murmurs, Irregular Rate, No rub noted, No Gallop Abdomen: Bowel Sounds Present, Soft, Non Tender, Non-Distended, Obese Extremities: No clubbing, No cyanosis, Edema - Bilateral lower extremities Skin: - - Vascular insufficiency changes noted bilateral lower extremities below the knee Musculoskeletal: No Tenderness to Palpation of Joints or Extremities Lymphatic: No Cervical, Supraclavicular, or Inguinal Adenopathy Neurological: Cranial nerves II-XII grossly intact, Neuro grossly intact - Decreased pinprick lower extremities Psych/Mental Status: Alert and oriented to time, place, person, mood and affect Laboratory Results 05/23/20 08:40: Iron 37 L, TIBC 376, Iron Saturation 9.8 L, Ferritin 43 05/23/20 12:10: Blood Type A POSITIVE, Antibody Screen NEGATIVE, Crossmatch See Detail 05/23/20 12:10: Troponin I 0.033 05/23/20 12:10: Crossmatch See Detail 05/23/20 14:36: Troponin I 0.036 05/23/20 17:00: POC Glucose 171 H 05/23/20 21:52: POC Glucose 181 H 05/23/20 22:15: Specimen Type ART, Sample Site R Radial, pH 7.44, Bicarbonate Actual 20.7 L, Total CO2 22, Base Excess -3 L, O2 Saturation 93 L, O2 % 100, ABG pCO2 30.2 L, ABG pO2 64 L, Sky Test Positive, O2 Delivery Device BiPAP, POC PEEP 8 05/24/20 05:01: WBC 11.6 H, RBC 2.64 L, Hgb 7.3 L, Hct 23.9 L, MCV 90.5, MCH 27.7, MCHC 30.5 L, RDW Std Deviation 47.8 H, RDW Coeff of Kassandra 14.6, Plt Count 173, MPV 10.1, Immature Gran % (Auto) 0.300, Neut % (Auto) 80.0 H, Lymph % (Auto) 10.1 L, [place]on % (Auto) 9.1, Eos % (Auto) 0.2, Baso % (Auto) 0.3, Absolute Neuts (auto) 9.3 H, Absolute Lymphs (auto) 1.17, Nucleated RBC % 0 05/24/20 05:01: PT 30.8 H, INR 3.1 05/24/20 05:01: Sodium 142, Potassium 3.9, Chloride 110 H, Carbon Dioxide 23.0, Anion Gap 9, BUN 69 H, Creatinine 4.69 H, Estim Creat Clear Calc 16.41, Est GFR (MDRD) Af Amer 17 L, Est GFR (MDRD) Non-Af 14 L, BUN/Creatinine Ratio 14.7, Glucose 155 H, Calcium 7.9 L, Total Bilirubin 0.60, AST 17, ALT 18, Alkaline Phosphatase 79, Total Protein 6.7, Albumin 2.8 L, Globulin 3.9, Albumin/Globulin Ratio 0.7 L, Triglycerides 83, Cholesterol 100, LDL Cholesterol 51, VLDL Cholesterol 17, HDL Cholesterol 32 L, TSH 0.66 05/24/20 05:01: Hemoglobin A1c 6.3 H 05/24/20 05:01: Iron Cancelled, TIBC Cancelled, Iron Saturation Cancelled, Ferritin Cancelled 05/24/20 06:34: POC Glucose 150 H Current Medications Acetaminophen (Acetaminophen 325 Mg Tablet) 650 mg PO Q6H PRN PRN PRN Reason: Pain Score 1-10/Temp > 100.7 F Al Hydroxide/Mg Hydroxide (Mag Hydrox/Al Hydrox/Simeth 30 Ml Udc) 30 ml PO Q4H PRN PRN PRN Reason: DYSPEPSIA Last Admin: 05/23/20 21:00 Dose: 30 ml Documented by: Ascorbic Acid (Ascorbic Acid 500 Mg Tablet) 1,000 mg PO DAILY [facility] Last Admin: 05/24/20 08:23 Dose: 1,000 mg Documented by: Atorvastatin Calcium (Atorvastatin Calcium 40 Mg Tablet) 40 mg PO QHS [facility] Buspirone HCl (Buspirone 5 Mg Tablet) 10 mg PO DAILY [facility] Last Admin: 05/24/20 08:24 Dose: 10 mg Documented by: Carvedilol (Carvedilol 12.5 Mg Tablet) 12.5 mg PO BID [facility] Last Admin: 05/24/20 08:25 Dose: 12.5 mg Documented by: Cholecalciferol (Cholecalciferol (Vit D3) 25 Mcg Tablet (1,000 Units)) 25 mcg PO DAILY [facility] Last Admin: 05/24/20 08:27 Dose: 25 mcg Documented by: Clopidogrel Bisulfate (Clopidogrel Bisulfate 75 Mg Tablet) 75 mg PO DAILY [facility] Last Admin: 05/24/20 08:25 Dose: 75 mg Documented by: Dextrose (Dextrose 50%-Water 25 Gm/50 Ml Disp.Syrin) 0 gm IV X1 PRN; Protocol PRN Reason: Hypoglycemia Dicyclomine HCl (Dicyclomine 10 Mg Capsule) 20 mg PO TIDAC [facility] Last Admin: 05/24/20 06:06 Dose: 20 mg Documented by: Furosemide (Furosemide 40 Mg/4 Ml Vial) 40 mg IV BID@1000,1800 [facility] Last Admin: 05/24/20 09:47 Dose: 40 mg Documented by: Gabapentin (Gabapentin 100 Mg Capsule) 100 mg PO BID [facility] Last Admin: 05/24/20 08:26 Dose: 100 mg Documented by: Glucagon (Glucagon 1 Mg/Ml Syringe) 1 mg IM .X1 PRN PRN Reason: Hypoglycemia Hydralazine HCl (Hydralazine 25 Mg Tablet) 25 mg PO TID [facility] Last Admin: 05/24/20 06:06 Dose: 25 mg Documented by: Insulin Glargine (Insulin Glargine 100 Units/Ml Pen) 12 units SC QHS [facility] Last Admin: 05/23/20 22:12 Dose: 12 u Documented by: Insulin Human Lispro (Insulin Lispro 100 Unit/Ml Insuln.Pen) 0 unit SC TIDAC [facility]; Protocol Last Admin: 05/24/20 06:50 Dose: 1 unit Documented by: Multi-Ingredient Cream (Mineral Oil/Petrolatum,White Jar) 1 applic TOPICAL BID PRN [facility]; Protocol Last Admin: 05/24/20 08:22 Dose: 1 applic Documented by: Multivitamins (Multivitamins,Therapeutic Tablet) 1 tablet PO DAILYCM [facility] Last Admin: 05/24/20 08:25 Dose: 1 tablet Documented by: Nifedipine (Nifedipine 90 Mg Tablet) 90 mg PO DAILY [facility] Last Admin: 05/24/20 08:24 Dose: 90 mg Documented by: Nitroglycerin (Nitroglycerin (Inpatient Use) 0.4 Mg Tab.Subl) 0.4 mg SL Q5M PRN PRN Reason: CARDIAC/CHEST PAIN Last Admin: 05/23/20 20:55 Dose: 0.4 mg Documented by: Pantoprazole Sodium (Pantoprazole Sodium 40 Mg Tablet) 40 mg PO DAILY [facility] Last Admin: 05/24/20 08:24 Dose: 40 mg Documented by: Pyridoxine HCl (Pyridoxine Hcl 100 Mg Tablet) 100 mg PO DAILY [facility] Last Admin: 05/24/20 08:26 Dose: 100 mg Documented by: Simethicone (Simethicone 80 Mg Tablet) 80 mg PO TIDPC [facility] Last Admin: 05/24/20 08:24 Dose: 80 mg Documented by: Sodium Bicarbonate (Sodium Bicarbonate 650 Mg Tablet) 650 mg PO BID [facility] Last Admin: 05/24/20 09:47 Dose: 650 mg Documented by: Sodium Chloride (0.9% Saline Lock 10 Ml Syringe) 10 - 40 ml IV UD PRN PRN Reason: SALINE FLUSH Last Admin: 05/24/20 09:47 Dose: 20 ml Documented by: Venlafaxine HCl (Venlafaxine Xr 150 Mg Capsule) 150 mg PO DAILY [facility] Last Admin: 05/24/20 08:24 Dose: 150 mg Documented by: Warfarin Sodium 5 mg/ Warfarin (Sodium 7.5 mg) 12.5 mg PO DAILY@1700 [facility] Assessment/Plan All Active Problems Chronic 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 (Resolved) Ulcer of left lower extremity with fat layer exposed (Resolved) Chest pain (Acute) (HFpEF) heart failure with preserved ejection fraction (Acute) Atrial fibrillation (Acute) Diastolic CHF, acute (Acute) CHF (congestive heart failure) (Acute) RECOMMENDATIONS: 1. Check stool Hemoccult 2. Continue transfusions as necessary with diuretics 3. Continue BiPAP with sleep 4. Hold on steroids and bronchodilators for now 5. Consider nephrology consult if not improving IMPRESSIONS: 1. Acute hypoxic respiratory failure secondary to acute on chronic congestive heart failure Clinical suspicion for predominance of acute on chronic congestive heart failure leading to current symptomatology. Overnight decompensation may have been secondary to a lack of positive pressure in the setting of obstructive sleep apnea. However, patient also has an extensive smoking history, so an element of COPD could be present. Patient is not reporting constitutional symptoms consistent with a COPD exacerbation, so likely okay to hold off on bronchodilators and steroids from my perspective. These medications may lead to issues with patient's A. fib and diabetes respectively. Would continue BiPAP with all sleep. Outpatient work-up for COPD would be appropriate. 2. Anemia Unclear etiology. Patient does have chronic kidney disease, so stimulation may be an issue. Cannot exclude acute blood loss at this time, but not incrementing appropriately. Agree with transfusions for now. 3. Chronic kidney disease stage IV-V No indication for renal replacement therapy. Patient may have a prerenal etiology secondary to cardiac overload. Cardiac optimization and continue to monitor. Replete electrolytes as necessary. No indication for renal replacement therapy at this time. 4. Diabetes mellitus type 2/CAD/PVD/A. fib/morbid obesity/untreated ARRON Complicates care, management, recovery and prognosis. Patient appears to be doing okay on current medications. Patient would likely benefit from work-up of obstructive sleep apnea as an outpatient. Empiric therapy while hospitalized would be appropriate. Continue to monitor anticoagulation closely. Inpatient E&M: [id number] Init Hosp L3
[2020-05-24 12:40] LABS: Bedside Glucose 207 mg/dL (70-110)
--- NOTE | 2020-05-24 12:45 | PN_ITS ---
Patient Problems: Active and Suspected Problems Malnutrition (Suspected) Chest pain (Acute) (HFpEF) heart failure with preserved ejection fraction (Acute) Atrial fibrillation (Acute) Diastolic CHF, acute (Acute) CHF (congestive heart failure) (Acute) Subjective: Breathing well. Was placed on BiPAP last night, weaned down to NC. Vitals/I&O's: Vital Signs Temp Pulse Resp BP Pulse Ox 36.6 C 72 29 H 162/85 H 93 05/24/20 10:00 05/24/20 12:29 05/24/20 11:22 05/24/20 12:29 05/24/20 11:22 Oxygen Flow Rate (L/min) 15 Oxygen Delivery Method Bi-pap Weight: 150.8 kg Body Mass Index (BMI) 51.2 Intake and Output for Last 24 Hours 05/22/20 05/23/20 05/24/20 23:59 23:59 23:59 Intake Total 720 / 720 680 / 680 Output Total 850 / 850 600 / 600 Balance -130 / -130 80 / 80 General: Alert, No apparent distress, - - up at side of bed with no respiratory distress HEENT: Atraumatic, Normocephalic Oral: Moist Mucosa, No Gingival or Mucosal Lesions/ Ulcerations Neck: No Nodes, Thyroid Normal Size and Texture Lungs: - - crackles bilaterally Cardiovascular: Regular rate, Regular Rhythm, Normal S1, Normal S2 Abdomen: Bowel Sounds Present, Soft, Non Tender Extremities: No Calf Tenderness, Edema Musculoskeletal: No Tenderness to Palpation of Joints or Extremities, No Muscle Wasting Neurological: Muscle tone normal, Sensory exam intact to light touch and pain Psych/Mental Status: Normal Affect, Appropriate Laboratory Results 05/23/20 12:10: Blood Type A POSITIVE, Antibody Screen NEGATIVE, Crossmatch See Detail 05/23/20 12:10: Crossmatch See Detail 05/23/20 14:36: Troponin I 0.036 05/23/20 17:00: POC Glucose 171 H 05/23/20 21:52: POC Glucose 181 H 05/23/20 22:15: Specimen Type ART, Sample Site R Radial, pH 7.44, Bicarbonate Actual 20.7 L, Total CO2 22, Base Excess -3 L, O2 Saturation 93 L, O2 % 100, ABG pCO2 30.2 L, ABG pO2 64 L, Sky Test Positive, O2 Delivery Device BiPAP, POC PEEP 8 05/24/20 05:01: WBC 11.6 H, RBC 2.64 L, Hgb 7.3 L, Hct 23.9 L, MCV 90.5, MCH 27.7, MCHC 30.5 L, RDW Std Deviation 47.8 H, RDW Coeff of Kassandra 14.6, Plt Count 173, MPV 10.1, Immature Gran % (Auto) 0.300, Neut % (Auto) 80.0 H, Lymph % (Auto) 10.1 L, Mills % (Auto) 9.1, Eos % (Auto) 0.2, Baso % (Auto) 0.3, Absolute Neuts (auto) 9.3 H, Absolute Lymphs (auto) 1.17, Nucleated RBC % 0 05/24/20 05:01: PT 30.8 H, INR 3.1 05/24/20 05:01: Sodium 142, Potassium 3.9, Chloride 110 H, Carbon Dioxide 23.0, Anion Gap 9, BUN 69 H, Creatinine 4.69 H, Estim Creat Clear Calc 16.41, Est GFR (MDRD) Af Amer 17 L, Est GFR (MDRD) Non-Af 14 L, BUN/Creatinine Ratio 14.7, Glucose 155 H, Calcium 7.9 L, Total Bilirubin 0.60, AST 17, ALT 18, Alkaline Phosphatase 79, Total Protein 6.7, Albumin 2.8 L, Globulin 3.9, Albumin/Globulin Ratio 0.7 L, Triglycerides 83, Cholesterol 100, LDL Cholesterol 51, VLDL Cholesterol 17, HDL Cholesterol 32 L, TSH 0.66 05/24/20 05:01: Hemoglobin A1c 6.3 H 05/24/20 05:01: Iron Cancelled, TIBC Cancelled, Iron Saturation Cancelled, Ferritin Cancelled 05/24/20 06:34: POC Glucose 150 H 05/24/20 12:23: POC Glucose 207 H Current Medications Acetaminophen (Acetaminophen 325 Mg Tablet) 650 mg PO Q6H PRN PRN PRN Reason: Pain Score 1-10/Temp > 100.7 F Al Hydroxide/Mg Hydroxide (Mag Hydrox/Al Hydrox/Simeth 30 Ml Udc) 30 ml PO Q4H PRN PRN PRN Reason: DYSPEPSIA Last Admin: 05/23/20 21:00 Dose: 30 ml Documented by: Ascorbic Acid (Ascorbic Acid 500 Mg Tablet) 1,000 mg PO DAILY [facility] Last Admin: 05/24/20 08:23 Dose: 1,000 mg Documented by: Atorvastatin Calcium (Atorvastatin Calcium 40 Mg Tablet) 40 mg PO QHS [facility] Buspirone HCl (Buspirone 5 Mg Tablet) 10 mg PO DAILY [facility] Last Admin: 05/24/20 08:24 Dose: 10 mg Documented by: Carvedilol (Carvedilol 12.5 Mg Tablet) 12.5 mg PO BID [facility] Last Admin: 05/24/20 08:25 Dose: 12.5 mg Documented by: Cholecalciferol (Cholecalciferol (Vit D3) 25 Mcg Tablet (1,000 Units)) 25 mcg PO DAILY [facility] Last Admin: 05/24/20 08:27 Dose: 25 mcg Documented by: Clopidogrel Bisulfate (Clopidogrel Bisulfate 75 Mg Tablet) 75 mg PO DAILY [facility] Last Admin: 05/24/20 08:25 Dose: 75 mg Documented by: Dextrose (Dextrose 50%-Water 25 Gm/50 Ml Disp.Syrin) 0 gm IV X1 PRN; Protocol PRN Reason: Hypoglycemia Dicyclomine HCl (Dicyclomine 10 Mg Capsule) 20 mg PO TIDAC [facility] Last Admin: 05/24/20 12:28 Dose: 20 mg Documented by: Furosemide (Furosemide 40 Mg/4 Ml Vial) 40 mg IV BID@1000,1800 [facility] Last Admin: 05/24/20 09:47 Dose: 40 mg Documented by: Gabapentin (Gabapentin 100 Mg Capsule) 100 mg PO BID [facility] Last Admin: 05/24/20 08:26 Dose: 100 mg Documented by: Glucagon (Glucagon 1 Mg/Ml Syringe) 1 mg IM .X1 PRN PRN Reason: Hypoglycemia Hydralazine HCl (Hydralazine 25 Mg Tablet) 25 mg PO TID [facility] Last Admin: 05/24/20 12:29 Dose: 25 mg Documented by: Insulin Glargine (Insulin Glargine 100 Units/Ml Pen) 12 units SC QHS [facility] Last Admin: 05/23/20 22:12 Dose: 12 u Documented by: Insulin Human Lispro (Insulin Lispro 100 Unit/Ml Insuln.Pen) 0 unit SC TIDAC [facility]; Protocol Last Admin: 05/24/20 12:28 Dose: 2 unit Documented by: Multi-Ingredient Cream (Mineral Oil/Petrolatum,White Jar) 1 applic TOPICAL BID PRN [facility]; Protocol Last Admin: 05/24/20 08:22 Dose: 1 applic Documented by: Multivitamins (Multivitamins,Therapeutic Tablet) [facility] Last Admin: 05/24/20 08:25 Dose: 1 tablet Documented by: Nifedipine (Nifedipine 90 Mg Tablet) 90 mg PO DAILY [facility] Last Admin: 05/24/20 08:24 Dose: 90 mg Documented by: Nitroglycerin (Nitroglycerin (Inpatient Use) 0.4 Mg Tab.Subl) 0.4 mg SL Q5M PRN PRN Reason: CARDIAC/CHEST PAIN Last Admin: 05/23/20 20:55 Dose: 0.4 mg Documented by: Pantoprazole Sodium (Pantoprazole Sodium 40 Mg Tablet) 40 mg PO DAILY [facility] Last Admin: 05/24/20 08:24 Dose: 40 mg Documented by: Pyridoxine HCl (Pyridoxine Hcl 100 Mg Tablet) 100 mg PO DAILY [facility] Last Admin: 05/24/20 08:26 Dose: 100 mg Documented by: Simethicone (Simethicone 80 Mg Tablet) 80 mg PO TIDPC [facility] Last Admin: 05/24/20 12:28 Dose: 80 mg Documented by: Sodium Bicarbonate (Sodium Bicarbonate 650 Mg Tablet) 650 mg PO BID [facility] Last Admin: 05/24/20 09:47 Dose: 650 mg Documented by: Sodium Chloride (0.9% Saline Lock 10 Ml Syringe) 10 - 40 ml IV UD PRN PRN Reason: SALINE FLUSH Last Admin: 05/24/20 09:47 Dose: 20 ml Documented by: Venlafaxine HCl (Venlafaxine Xr 150 Mg Capsule) 150 mg PO DAILY [facility] Last Admin: 05/24/20 08:24 Dose: 150 mg Documented by: Warfarin Sodium 5 mg/ Warfarin (Sodium 7.5 mg) 12.5 mg PO DAILY@1700 [facility] STROKE Vital Signs/Narrative: Vital Signs Temp Pulse Resp BP Pulse Ox 05/24/20 12:29 72 162/85 H 05/24/20 11:22 77 29 H 93 05/24/20 10:00 36.6 C 73 23 H 127/58 H 98 05/24/20 08:59 36.8 C 73 18 155/86 H 94 Medical Necessity - Tobacco Use Smoking Status: Former smoker Assessment/Plan All Active Problems Chronic 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 (Resolved) Ulcer of left lower extremity with fat layer exposed (Resolved) Chest pain (Acute) (HFpEF) heart failure with preserved ejection fraction (Acute) Atrial fibrillation (Acute) Diastolic CHF, acute (Acute) CHF (congestive heart failure) (Acute) 1. Acute heart failure with preserved ejection fraction exacerbation EF 55% from to echocardiogram from 09/10/2012 Changes furosemide over to 40 mg twice daily IV from oral. Patient not a candidate for SRINIVASA inhibitor nor angiotensin receptor ashlee given chronic kidney disease stage IV-V. Continue hydralazine Check 2D echocardiogram 2. acute hypoxic respiratory failure 2/ to above plus likely ARRON pulm consult 3. Chest pain Atypical Patient has had a GI work-up which patient states was unremarkable. [facility]. Since his symptoms are atypical, will change his ranitidine over to pantoprazole and start him on simethicone. JONNA score 3, [place] score 94 Plan for a nuclear chemical stress test on 05/25/2020. Cycle troponins negative Reviewed a records from [facility], stress negative on 03/22/2018 4. Anemia Concerned that this may be symptomatic anemia as well causing some symptoms in regards to dyspnea and chest pain Will transfuse 1 unit of packed red blood cells Anemia is more pronounced than it was a year ago but this may be anemia of chronic disease Will check Hemoccult plus also other iron studies Goal hemoglobin is 8 or more given the patient's underlying coronary artery disease Will transfuse another unit 5. Chronic kidney disease stage IV-V Worse than it was a year ago. I suspect this is just been a chronic progression rather than acute derangement Monitor closely Consult nephrology. No immediate needs for renal replacement therapy at this time. We will adjust gabapentin to a safer renal dose of 100 twice daily Continue with sodium bicarbonate reviewed records from [facility]. Creatinine was 4.66 on 04/08/2020 6. Diabetes mellitus type 2 Fair control Hold glipizide given the worsening kidney disorder Sliding scale insulin A1c 6.3 7. Coronary artery disease Continue with clopidogrel, carvedilol 8. Atrial fibrillation Persistent Rate controlled Continue with carvedilol and warfarin. INR 3.1 today so we will hold off on warfarin today. 9. VTE prophylaxis: Not indicated as patient is anticoagulated 10. Advanced care planning: Patient was to be full CODE STATUS. Inpatient E&M: 12112 Subs Hosp L3
[2020-05-24] MEDS: WARFARIN 12.5 MG PO (16:12)
[2020-05-24 16:31] LABS: Bedside Glucose 215 mg/dL (70-110)
[2020-05-24] MEDS: Atorvastatin Calcium 40 MG Tablet PO (21:48)
[2020-05-24 22:06] LABS: Bedside Glucose 178 mg/dL (70-110)
--- NOTE | 2020-05-24 23:15 | NURSING ---
Pt had episode of chest pain/pressure and anxiety when up to bathroom around 2200. On 15 L highflow NC and SpO2 dropped to mid 80s. Pt assisted back to bed and BIPAP put back on. O2 back up to mid 90s and pt reported pain was getting better. notified. KAMRON Todd.
[2020-05-25] VITALS (26 sets, daily range): BP systolic 111–159; BP diastolic 48–134; PULSE 76–104; RESP 12–28; TEMP 36.5–38.3; O2SAT 92–98
[2020-05-25] MEDS: Acetaminophen 325 MG Tablet 650 MG PO ×2 (02:35→16:40)
--- NOTE | 2020-05-25 04:35 | RAD_ITS ---
STUDY: X-RAY CHEST REASON FOR EXAM: Male, 60 years old. fever . History of congestive heart failure. TECHNIQUE: AP portable chest. COMPARISON: May 23, 2020. FINDINGS: Perihilar airspace opacities right greater than left, worse as compared to the prior study. No effusions. No pneumothorax. Moderate cardiomegaly unchanged. Normal mediastinum and sachi. Normal visualized pulmonary arteries. Normal visualized aortic arch and descending thoracic aorta. Normal visualized thoracic spine. Normal visualized ribs, clavicles, and shoulders. There is no demonstrated abnormality of the visualized soft tissue structures of the upper abdomen. RAD/Chest 1 View (Portable) IMPRESSION: Worsening asymmetric vascular congestion and/or bilateral pneumonia. Stable cardiomegaly. Electronically Signed: Skyler Graham MD at 6:19 EDT , Service support ,
[2020-05-25 05:15] LABS: Absolute Lymphocyte Count 1.24 X10^3/uL (0.83-4.51); Absolute Neutrophil Count 8.7 X10^3/uL (2.0-7.7); Basophil# 0.02 X10^3/uL; Basophil% 0.2 % (0-1); Eosinophil# 0.07 X10^3/uL; Eosinophils% 0.6 % (0-5); Hemoglobin 7.2 g/dL (13.0-16.5); Lymphocyte # 1.24 X10^3/ul (4.0); Lymphocyte % 10.9 % (19-41); Mean Corp Hgb Conc 31.3 g/dL (32-36); Mean Corpuscular Hgb 28.2 pg (27.0-32.0); Mean Corpuscular Volume 90.2 fL (80-94); Mean Platelet Vol. 10.7 fl (6.2-12.0); Monocyte# 1.28 X10^3/uL; Monocyte% 11.3 % (0-10); NRBC Flagged by Analyzer 0 % (0-5); Neutrophil # 8.68 X10^3/uL (2.7-7.7); Neutrophil % 76.6 % (47-70); Platelet Count 145 K/mm3 (150-450); Red Blood Count 2.55 M/mm3 (4.6-6.2); White Blood Count 11.3 K/mm3 (4.4-11.0)
[2020-05-25 05:36] LABS: Albumin, Serum 2.7 g/dL (3.2-5.0); BUN 78 mg/dL (7-18); BUN/Creat Ratio 14.8 RATIO (10-20); Calcium,Total 8.1 mg/dL (8.5-10.1); Chloride 106 mmol/L (98-107); Creatinine, Serum 5.27 mg/dL (0.70-1.30); EST Glomerular Filtration Rate 12 mL/min (>60); Est Glom Filt Rate - Afr Amer 14 mL/min (>60); Glucose 222 mg/dL (74-106); Phosphorus 3.7 mg/dL (2.5-4.9); Potassium 4.4 mmol/L (3.5-5.1); Sodium Level 140 mmol/L (136-145)
[2020-05-25 05:37] LABS: Lactic Acid 1.5 mmol/L (0.4-1.9)
[2020-05-25] MEDS: hydrALAZINE 25 MG Tablet PO ×2 (05:52→13:24)
[2020-05-25] MEDS: 0.9% Saline Lock 10 ML Syringe IV ×2 (05:54→17:12)
[2020-05-25] MEDS: Clopidogrel Bisulfate 75 MG Tablet PO (05:54)
--- NOTE | 2020-05-25 05:55 | US_ITS ---
STUDY: RENAL ULTRASOUND - COMPLETE REASON FOR EXAM: Male, 60 years old. Elevated BUN/creatinine TECHNIQUE: Ultrasound evaluation of the kidneys was performed with real-time and static wells-scale imaging. COMPARISON: None. FINDINGS: RIGHT KIDNEY: Normal location of the right kidney, which is normal in size. The right kidney measures 11.1 x 6.3 x 6.4 cm. There is a normal cortex of the right kidney. The renal cortex measures 1.5 cm. There is no right renal mass or cyst. There are no right renal calculi. There is no right hydronephrosis. DISTAL RIGHT URETER: There is non-visualization of the distal right ureter. There is no demonstrated right ureterovesical junction calculus. There is a visualized right ureteral jet. LEFT KIDNEY: Normal location of the left kidney, which is normal in size. The left kidney measures 11.7 x 5.4 x 6.3 cm. There is a normal cortex of the left kidney. The renal cortex measures 1.8 cm. There is no left renal mass or cyst. There is a nonobstructing 4 mm stone. There is no left hydronephrosis. DISTAL LEFT URETER: There is non-visualization of the distal left ureter. There is no demonstrated left ureterovesical junction calculus. There is a visualized left ureteral jet. AORTA: There is no elongation or tortuosity of the abdominal aorta. I.V.C.: The IVC is patent. BLADDER: The distended urinary bladder has a volume of 643.4 ml. The empty urinary bladder has a volume of less than 10 ml. There is a normal wall thickness of the distended urinary bladder. There is no demonstrated mass within the urinary bladder. There are no demonstrated bladder calculi. There is a 3.5 x 2.7 x 4.1 cm diverticulum. US/Kidney and Bladder IMPRESSION: No obstructive uropathy or suspicious solid renal lesion Nonobstructing left nephrolithiasis Bladder diverticulum Electronically Signed: Giovanni Huston MD at 10:19 EDT , Service support ,
--- NOTE | 2020-05-25 05:55 | EKG12_ITS ---
Test Reason : AM EKG Blood Pressure : / mmHG Vent. Rate : 085 BPM Atrial Rate : 077 BPM P-R Int : 144 ms QRS Dur : 086 ms QT Int : 348 ms P-R-T Axes : 042 046 038 degrees QTc Int : 414 ms Sinus rhythm with Premature supraventricular complexes Nonspecific T wave abnormality Abnormal ECG When compared with ECG of 23-MAY-2020 21:04, MANUAL COMPARISON REQUIRED, DATA IS UNCONFIRMED Confirmed by DIANA HARVEY, LAURA ([id number]), fashion editor ZACHARIAH ABURTO ([id number]) on 05/29/2020 3:07:02 PM Referred By: DANIEL Confirmed By:LAURA ORTIZ MD
[2020-05-25 06:01] LABS: Bedside Glucose 199 mg/dL (70-110)
--- NOTE | 2020-05-25 07:53 | PCM.PN.PUL ---
Patient Problems: Active and Suspected Problems Malnutrition (Suspected) Chest pain (Acute) (HFpEF) heart failure with preserved ejection fraction (Acute) Atrial fibrillation (Acute) Diastolic CHF, acute (Acute) CHF (congestive heart failure) (Acute) Subjective: The patient was seen and examined at the bedside this morning. Events from the last 24 hours have been reviewed. The patient did have some fevers overnight with a T-max of 101 ?F. However, the patient remains hemodynamically stable and is currently maintaining appropriate oxygen saturations on 15 L/min via nasal cannula. Hemoglobin is stable at 7.2 g/dL. Creatinine has worsened to 5.27. Objective: The patient's most recent lab work, culture data and imaging studies have all been personally reviewed. Surface echocardiogram from 2017 revealed moderate concentric LVH with an ejection fraction of 55%. Rapid coronavirus antigen testing was negative. Blood cultures are pending. - Physical Exam Vitals/I&O's: Vital Signs Temp Pulse Resp BP Pulse Ox 98.1 F 83 24 H 143/63 H 96 05/25/20 07:18 05/25/20 07:18 05/25/20 07:18 05/25/20 07:18 05/25/20 07:18 Oxygen Flow Rate (L/min) 15 Oxygen Delivery Method Nasal Cannula Weight: 332 lb 7.313 oz Body Mass Index (BMI) 51.2 Intake and Output for Last 24 Hours 05/23/20 05/24/20 05/25/20 23:59 23:59 23:59 Intake Total 720 / 720 1628 / 1748 165 / 165 Output Total 850 / 850 600 / 1250 1400 / 1400 Balance -130 / -130 1028 / 498 -1235 / -1235 General: Alert, Cooperative HEENT: Atraumatic, Normocephalic Oral: No Gingival or Mucosal Lesions/ Ulcerations Neck: Supple, No Nodes, Trachea Midline Lungs: Diminished, Tachypneic Cardiovascular: Regular rate, Regular Rhythm, No murmurs Abdomen: Bowel Sounds Present, Soft, Non Tender, Obese Extremities: No clubbing, No cyanosis, No edema Skin: Ulcer/ Wound Musculoskeletal: No Tenderness to Palpation of Joints or Extremities Lymphatic: No Cervical, Supraclavicular, or Inguinal Adenopathy Neurological: Cranial nerves II-XII grossly intact, Neuro grossly intact Psych/Mental Status: Normal Affect, Appropriate Labs (Last 48 Hours) 05/23/20 05/23/20 05/23/20 08:40 08:40 08:40 WBC 12.3 H RBC 2.72 L Hgb 7.5 L Hct 24.8 L MCV 91.2 MCH 27.6 MCHC 30.2 L RDW Std Deviation 48.5 H RDW Coeff of Kassandra 14.6 Plt Count 245 MPV 10.1 Immature Gran % (Auto) 0.300 Neut % (Auto) 70.0 Lymph % (Auto) 17.6 L [place] % (Auto) 9.5 Eos % (Auto) 2.3 Baso % (Auto) 0.3 Absolute Neuts (auto) 8.6 H Absolute Lymphs (auto) 2.17 Nucleated RBC % 0 PT 31.7 H INR 3.2 Specimen Type Sample Site pH Bicarbonate Actual Total CO2 Base Excess O2 Saturation O2 % ABG pCO2 ABG pO2 Sky Test O2 Delivery Device POC PEEP Sodium 140 Potassium 4.0 Chloride 108 H Carbon Dioxide 20.0 L Anion Gap 12 BUN 60 H Creatinine 4.52 H Estim Creat Clear Calc 17.02 Est GFR (MDRD) Af Amer 17 L Est GFR (MDRD) Non-Af 14 L BUN/Creatinine Ratio 13.3 Glucose 149 H Hemoglobin A1c Lactic Acid Calcium 8.4 L Phosphorus Magnesium 2.2 Iron TIBC Iron Saturation Ferritin Total Bilirubin AST ALT Alkaline Phosphatase Troponin I 0.030 B-Natriuretic Peptide Total Protein Albumin Globulin Albumin/Globulin Ratio Triglycerides Cholesterol LDL Cholesterol VLDL Cholesterol HDL Cholesterol TSH POC Glucose Blood Type Antibody Screen Crossmatch 05/23/20 05/23/20 05/23/20 08:40 08:40 12:10 WBC RBC Hgb Hct MCV MCH MCHC RDW Std Deviation RDW Coeff of Kassandra Plt Count MPV Immature Gran % (Auto) Neut % (Auto) Lymph % (Auto) [place] % (Auto) Eos % (Auto) Baso % (Auto) Absolute Neuts (auto) Absolute Lymphs (auto) Nucleated RBC % PT INR Specimen Type Sample Site pH Bicarbonate Actual Total CO2 Base Excess O2 Saturation O2 % ABG pCO2 ABG pO2 Sky Test O2 Delivery Device POC PEEP Sodium Potassium Chloride Carbon Dioxide Anion Gap BUN Creatinine Estim Creat Clear Calc Est GFR (MDRD) Af Amer Est GFR (MDRD) Non-Af BUN/Creatinine Ratio Glucose Hemoglobin A1c Lactic Acid Calcium Phosphorus Magnesium Iron 37 L TIBC 376 Iron Saturation 9.8 L Ferritin 43 Total Bilirubin AST ALT Alkaline Phosphatase Troponin I B-Natriuretic Peptide 372.3 H Total Protein Albumin Globulin Albumin/Globulin Ratio Triglycerides Cholesterol LDL Cholesterol VLDL Cholesterol HDL Cholesterol TSH POC Glucose Blood Type A POSITIVE Antibody Screen NEGATIVE Crossmatch See Detail 05/23/20 05/23/20 05/23/20 12:10 12:10 12:10 WBC RBC Hgb Hct MCV MCH MCHC RDW Std Deviation RDW Coeff of Kassandra Plt Count MPV Immature Gran % (Auto) Neut % (Auto) Lymph % (Auto) [place] % (Auto) Eos % (Auto) Baso % (Auto) Absolute Neuts (auto) Absolute Lymphs (auto) Nucleated RBC % PT INR Specimen Type Sample Site pH Bicarbonate Actual Total CO2 Base Excess O2 Saturation O2 % ABG pCO2 ABG pO2 Sky Test O2 Delivery Device POC PEEP Sodium Potassium Chloride Carbon Dioxide Anion Gap BUN Creatinine Estim Creat Clear Calc Est GFR (MDRD) Af Amer Est GFR (MDRD) Non-Af BUN/Creatinine Ratio Glucose Hemoglobin A1c Lactic Acid Calcium Phosphorus Magnesium Iron TIBC Iron Saturation Ferritin Total Bilirubin AST ALT Alkaline Phosphatase Troponin I 0.033 B-Natriuretic Peptide Total Protein Albumin Globulin Albumin/Globulin Ratio Triglycerides Cholesterol LDL Cholesterol VLDL Cholesterol HDL Cholesterol TSH POC Glucose Blood Type Antibody Screen Crossmatch See Detail See Detail 05/23/20 05/23/20 05/23/20 14:36 17:00 21:52 WBC RBC Hgb Hct MCV MCH MCHC RDW Std Deviation RDW Coeff of Kassandra Plt Count MPV Immature Gran % (Auto) Neut % (Auto) Lymph % (Auto) [place] % (Auto) Eos % (Auto) Baso % (Auto) Absolute Neuts (auto) Absolute Lymphs (auto) Nucleated RBC % PT INR Specimen Type Sample Site pH Bicarbonate Actual Total CO2 Base Excess O2 Saturation O2 % ABG pCO2 ABG pO2 Sky Test O2 Delivery Device POC PEEP Sodium Potassium Chloride Carbon Dioxide Anion Gap BUN Creatinine Estim Creat Clear Calc Est GFR (MDRD) Af Amer Est GFR (MDRD) Non-Af BUN/Creatinine Ratio Glucose Hemoglobin A1c Lactic Acid Calcium Phosphorus Magnesium Iron TIBC Iron Saturation Ferritin Total Bilirubin AST ALT Alkaline Phosphatase Troponin I 0.036 B-Natriuretic Peptide Total Protein Albumin Globulin Albumin/Globulin Ratio Triglycerides Cholesterol LDL Cholesterol VLDL Cholesterol HDL Cholesterol TSH POC Glucose 171 H 181 H Blood Type Antibody Screen Crossmatch 05/23/20 05/24/2021 22:15 05:01 05:01 WBC 11.6 H RBC 2.64 L Hgb 7.3 L Hct 23.9 L MCV 90.5 MCH 27.7 MCHC 30.5 L RDW Std Deviation 47.8 H RDW Coeff of Kassandra 14.6 Plt Count 173 MPV 10.1 Immature Gran % (Auto) 0.300 Neut % (Auto) 80.0 H Lymph % (Auto) 10.1 L [place] % (Auto) 9.1 Eos % (Auto) 0.2 Baso % (Auto) 0.3 Absolute Neuts (auto) 9.3 H Absolute Lymphs (auto) 1.17 Nucleated RBC % 0 PT 30.8 H INR 3.1 Specimen Type ART Sample Site R Radial pH 7.44 Bicarbonate Actual 20.7 L Total CO2 22 Base Excess -3 L O2 Saturation 93 L O2 % 100 ABG pCO2 30.2 L ABG pO2 64 L Sky Test Positive O2 Delivery Device BiPAP POC PEEP 8 Sodium Potassium Chloride Carbon Dioxide Anion Gap BUN Creatinine Estim Creat Clear Calc Est GFR (MDRD) Af Amer Est GFR (MDRD) Non-Af BUN/Creatinine Ratio Glucose Hemoglobin A1c Lactic Acid Calcium Phosphorus Magnesium Iron TIBC Iron Saturation Ferritin Total Bilirubin AST ALT Alkaline Phosphatase Troponin I B-Natriuretic Peptide Total Protein Albumin Globulin Albumin/Globulin Ratio Triglycerides Cholesterol LDL Cholesterol VLDL Cholesterol HDL Cholesterol TSH POC Glucose Blood Type Antibody Screen Crossmatch 05/24/20 05/24/20 05/24/20 05:01 05:01 05:01 WBC RBC Hgb Hct MCV MCH MCHC RDW Std Deviation RDW Coeff of Kassandra Plt Count MPV Immature Gran % (Auto) Neut % (Auto) Lymph % (Auto) [place] % (Auto) Eos % (Auto) Baso % (Auto) Absolute Neuts (auto) Absolute Lymphs (auto) Nucleated RBC % PT INR Specimen Type Sample Site pH Bicarbonate Actual Total CO2 Base Excess O2 Saturation O2 % ABG pCO2 ABG pO2 Sky Test O2 Delivery Device POC PEEP Sodium 142 Potassium 3.9 Chloride 110 H Carbon Dioxide 23.0 Anion Gap 9 BUN 69 H Creatinine 4.69 H Estim Creat Clear Calc 16.41 Est GFR (MDRD) Af Amer 17 L Est GFR (MDRD) Non-Af 14 L BUN/Creatinine Ratio 14.7 Glucose 155 H Hemoglobin A1c 6.3 H Lactic Acid Calcium 7.9 L Phosphorus Magnesium Iron Cancelled TIBC Cancelled Iron Saturation Cancelled Ferritin Cancelled Total Bilirubin 0.60 AST 17 ALT 18 Alkaline Phosphatase 79 Troponin I B-Natriuretic Peptide Total Protein 6.7 Albumin 2.8 L Globulin 3.9 Albumin/Globulin Ratio 0.7 L Triglycerides 83 Cholesterol 100 LDL Cholesterol 51 VLDL Cholesterol 17 HDL Cholesterol 32 L TSH 0.66 POC Glucose Blood Type Antibody Screen Crossmatch 05/24/20 05/24/20 05/24/20 06:34 12:23 16:07 WBC RBC Hgb Hct MCV MCH MCHC RDW Std Deviation RDW Coeff of Kassandra Plt Count MPV Immature Gran % (Auto) Neut % (Auto) Lymph % (Auto) [place] % (Auto) Eos % (Auto) Baso % (Auto) Absolute Neuts (auto) Absolute Lymphs (auto) Nucleated RBC % PT INR Specimen Type Sample Site pH Bicarbonate Actual Total CO2 Base Excess O2 Saturation O2 % ABG pCO2 ABG pO2 Sky Test O2 Delivery Device POC PEEP Sodium Potassium Chloride Carbon Dioxide Anion Gap BUN Creatinine Estim Creat Clear Calc Est GFR (MDRD) Af Amer Est GFR (MDRD) Non-Af BUN/Creatinine Ratio Glucose Hemoglobin A1c Lactic Acid Calcium Phosphorus Magnesium Iron TIBC Iron Saturation Ferritin Total Bilirubin AST ALT Alkaline Phosphatase Troponin I B-Natriuretic Peptide Total Protein Albumin Globulin Albumin/Globulin Ratio Triglycerides Cholesterol LDL Cholesterol VLDL Cholesterol HDL Cholesterol TSH POC Glucose 150 H 207 H 215 H Blood Type Antibody Screen Crossmatch 05/24/20 05/25/20 05/25/20 21:52 04:54 04:54 WBC 11.3 H RBC 2.55 L Hgb 7.2 L Hct 23.0 L MCV 90.2 MCH 28.2 MCHC 31.3 L RDW Std Deviation 49.0 H RDW Coeff of Kassandra 15.0 H Plt Count 145 L MPV 10.7 Immature Gran % (Auto) 0.400 Neut % (Auto) 76.6 H Lymph % (Auto) 10.9 L [place] % (Auto) 11.3 H Eos % (Auto) 0.6 Baso % (Auto) 0.2 Absolute Neuts (auto) 8.7 H Absolute Lymphs (auto) 1.24 Nucleated RBC % 0 PT INR Specimen Type Sample Site pH Bicarbonate Actual Total CO2 Base Excess O2 Saturation O2 % ABG pCO2 ABG pO2 Sky Test O2 Delivery Device POC PEEP Sodium 140 Potassium 4.4 Chloride 106 Carbon Dioxide 23.0 Anion Gap BUN 78 H Creatinine 5.27 H Estim Creat Clear Calc 14.60 Est GFR (MDRD) Af Amer 14 L Est GFR (MDRD) Non-Af 12 L BUN/Creatinine Ratio 14.8 Glucose 222 H Hemoglobin A1c Lactic Acid Calcium 8.1 L Phosphorus 3.7 Magnesium Iron TIBC Iron Saturation Ferritin Total Bilirubin AST ALT Alkaline Phosphatase Troponin I B-Natriuretic Peptide Total Protein Albumin 2.7 L Globulin Albumin/Globulin Ratio Triglycerides Cholesterol LDL Cholesterol VLDL Cholesterol HDL Cholesterol TSH POC Glucose 178 H Blood Type Antibody Screen Crossmatch 05/25/20 05/25/20 04:54 05:57 WBC RBC Hgb Hct MCV MCH MCHC RDW Std Deviation RDW Coeff of Kassandra Plt Count MPV Immature Gran % (Auto) Neut % (Auto) Lymph % (Auto) [place] % (Auto) Eos % (Auto) Baso % (Auto) Absolute Neuts (auto) Absolute Lymphs (auto) Nucleated RBC % PT INR Specimen Type Sample Site pH Bicarbonate Actual Total CO2 Base Excess O2 Saturation O2 % ABG pCO2 ABG pO2 Sky Test O2 Delivery Device POC PEEP Sodium Potassium Chloride Carbon Dioxide Anion Gap BUN Creatinine Estim Creat Clear Calc Est GFR (MDRD) Af Amer Est GFR (MDRD) Non-Af BUN/Creatinine Ratio Glucose Hemoglobin A1c Lactic Acid 1.5 Calcium Phosphorus Magnesium Iron TIBC Iron Saturation Ferritin Total Bilirubin AST ALT Alkaline Phosphatase Troponin I B-Natriuretic Peptide Total Protein Albumin Globulin Albumin/Globulin Ratio Triglycerides Cholesterol LDL Cholesterol VLDL Cholesterol HDL Cholesterol TSH POC Glucose 199 H Blood Type Antibody Screen Crossmatch Microbiology 05/25/20 04:42 Mucosa - Nose SARS-CoV-2 Antigen (Rapid) - Final Clinical Impression(s) from Imaging Studies Chest X-Ray 05/23/20 08:50 IMPRESSION: Cardiomegaly and pulmonary venous congestion. Superimposed mild infiltrate in right lung base is difficult to entirely exclude. Electronically Signed: Nate Bobby MD at 9:23 EDT Tel , Service support , Chest X-Ray 05/25/20 04:35 IMPRESSION: Worsening asymmetric vascular congestion and/or bilateral pneumonia. Stable cardiomegaly. Electronically Signed: Skyler Graham MD at 6:19 EDT , Service support , Current Medications Acetaminophen (Acetaminophen 325 Mg Tablet) 650 mg PO Q6H PRN PRN PRN Reason: Pain Score 1-10/Temp > 100.7 F Last Admin: 05/25/20 02:35 Dose: 650 mg Documented by: Al Hydroxide/Mg Hydroxide (Mag Hydrox/Al Hydrox/Simeth 30 Ml Udc) 30 ml PO Q4H PRN PRN PRN Reason: DYSPEPSIA Last Admin: 05/23/20 21:00 Dose: 30 ml Documented by: Ascorbic Acid (Ascorbic Acid 500 Mg Tablet) 1,000 mg PO DAILY [facility] Last Admin: 05/24/20 08:23 Dose: 1,000 mg Documented by: Atorvastatin Calcium (Atorvastatin Calcium 40 Mg Tablet) 40 mg PO QHS [facility] Last Admin: 05/24/20 21:48 Dose: 40 mg Documented by: Buspirone HCl (Buspirone 5 Mg Tablet) 10 mg PO DAILY [facility] Last Admin: 05/24/20 08:24 Dose: 10 mg Documented by: Carvedilol (Carvedilol 12.5 Mg Tablet) 12.5 mg PO BID [facility] Last Admin: 05/24/20 21:48 Dose: 12.5 mg Documented by: Cholecalciferol (Cholecalciferol (Vit D3) 25 Mcg Tablet (1,000 Units)) 25 mcg PO DAILY [facility] Last Admin: 05/24/20 08:27 Dose: 25 mcg Documented by: Clopidogrel Bisulfate (Clopidogrel Bisulfate 75 Mg Tablet) 75 mg PO DAILY [facility] Last Admin: 05/25/20 05:54 Dose: 75 mg Documented by: Dextrose (Dextrose 50%-Water 25 Gm/50 Ml Disp.Syrin) 0 gm IV X1 PRN; Protocol PRN Reason: Hypoglycemia Dicyclomine HCl (Dicyclomine 10 Mg Capsule) 20 mg PO TIDAC [facility] Last Admin: 05/25/20 05:50 Dose: Not Given Documented by: Furosemide (Furosemide 40 Mg/4 Ml Vial) 40 mg IV BID@1000,1800 [facility] Last Admin: 05/24/20 16:46 Dose: 40 mg Documented by: Gabapentin (Gabapentin 100 Mg Capsule) 100 mg PO BID [facility] Last Admin: 05/24/20 21:48 Dose: 100 mg Documented by: Glucagon (Glucagon 1 Mg/Ml Syringe) 1 mg IM .X1 PRN PRN Reason: Hypoglycemia Hydralazine HCl (Hydralazine 25 Mg Tablet) 25 mg PO TID [facility] Last Admin: 05/25/20 05:52 Dose: 25 mg Documented by: Insulin Glargine (Insulin Glargine 100 Units/Ml Pen) 12 units SC QHS [facility] Last Admin: 05/24/20 21:48 Dose: 12 u Documented by: Insulin Human Lispro (Insulin Lispro 100 Unit/Ml Insuln.Pen) 0 unit SC TIDAC [facility]; Protocol Last Admin: 05/25/20 05:51 Dose: Not Given Documented by: Multi-Ingredient Cream (Mineral Oil/Petrolatum,White Jar) 1 applic TOPICAL BID PRN [facility]; Protocol Last Admin: 05/24/20 08:22 Dose: 1 applic Documented by: Multivitamins (Multivitamins,Therapeutic Tablet) 1 tablet PO DAILYCM [facility] Last Admin: 05/24/20 08:25 Dose: 1 tablet Documented by: Nifedipine (Nifedipine 90 Mg Tablet) 90 mg PO DAILY [facility] Last Admin: 05/24/20 08:24 Dose: 90 mg Documented by: Nitroglycerin (Nitroglycerin (Inpatient Use) 0.4 Mg Tab.Subl) 0.4 mg SL Q5M PRN PRN Reason: CARDIAC/CHEST PAIN Last Admin: 05/23/20 20:55 Dose: 0.4 mg Documented by: Pantoprazole Sodium (Pantoprazole Sodium 40 Mg Tablet) 40 mg PO DAILY [facility] Last Admin: 05/24/20 08:24 Dose: 40 mg Documented by: Pyridoxine HCl (Pyridoxine Hcl 100 Mg Tablet) 100 mg PO DAILY [facility] Last Admin: 05/24/20 08:26 Dose: 100 mg Documented by: Simethicone (Simethicone 80 Mg Tablet) 80 mg PO TIDPC [facility] Last Admin: 05/24/20 16:46 Dose: 80 mg Documented by: Sodium Bicarbonate (Sodium Bicarbonate 650 Mg Tablet) 650 mg PO BID [facility] Last Admin: 05/24/20 21:56 Dose: 650 mg Documented by: Sodium Chloride (0.9% Saline Lock 10 Ml Syringe) 10 - 40 ml IV UD PRN PRN Reason: SALINE FLUSH Last Admin: 05/25/20 05:54 Dose: 10 ml Documented by: Venlafaxine HCl (Venlafaxine Xr 150 Mg Capsule) 150 mg PO DAILY [facility] Last Admin: 05/24/20 08:24 Dose: 150 mg Documented by: Warfarin Sodium 5 mg/ Warfarin (Sodium 7.5 mg) 12.5 mg PO DAILY@1700 [facility] Last Admin: 05/24/20 16:12 Dose: 12.5 mg Documented by: Medical Necessity - Tobacco Use Smoking Status: Former smoker Assessment/Plan All Active Problems Chronic 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 (Resolved) Ulcer of left lower extremity with fat layer exposed (Resolved) Chest pain (Acute) (HFpEF) heart failure with preserved ejection fraction (Acute) Atrial fibrillation (Acute) Diastolic CHF, acute (Acute) CHF (congestive heart failure) (Acute) RECOMMENDATIONS: 1. Obtain nephrology consultation given worsening creatinine. 2. Continue diuretic therapy as tolerated. 3. Wean supplemental oxygen to maintain saturations at or above 90%. 4. Transfuse blood products as ordered. Check H&H posttransfusion. 5. Await results of echocardiogram. 6. Continue empiric nocturnal BiPAP therapy. IMPRESSIONS: 1. Acute hypoxemic respiratory failure with concern for decompensated heart failure Clinical concern for acute decompensated heart failure based upon clinical presentation and radiographic findings. Plan to continue diuretic therapy as tolerated by hemodynamics and renal function. Encourage incentive spirometer use and mobilize patient as tolerated. Continue to wean supplemental oxygen to maintain saturations at or above 90%. Continue nocturnal BiPAP therapy. 2. Anemia Unclear etiology. No overt signs of blood loss. The patient previously had a hemoglobin of 11.3 g/dL 1 year ago. Plan to transfuse blood products as ordered today. Check H&H posttransfusion. Continue daily PPI therapy. 3. Acute on chronic kidney disease Possibly related to underlying medical renal disease coupled with overdiuresis. Recommend nephrology consultation. Cautious use of diuretics given underlying renal dysfunction. 4. Obesity/diabetes/coronary artery disease/atrial fibrillation/untreated obstructive sleep apnea Complicates care, management, recovery and prognosis. This note was generated with [employer] software. It may contain incorrect words, spelling, and punctuation that were not noted in checking the note before signing. Inpatient E&M: [id number] [facility] L[facility]
--- NOTE | 2020-05-25 07:55 | PCM.PN.HOSP ---
Patient Problems: Active and Suspected Problems Malnutrition (Suspected) Chest pain (Acute) (HFpEF) heart failure with preserved ejection fraction (Acute) Atrial fibrillation (Acute) Diastolic CHF, acute (Acute) CHF (congestive heart failure) (Acute) Objective: Low-grade fever, temperature 100.2. Vitals/I&O's: Vital Signs Temp Pulse Resp BP Pulse Ox 98.1 F 83 24 H 143/63 H 96 05/25/20 07:18 05/25/20 07:18 05/25/20 07:18 05/25/20 07:18 05/25/20 07:18 Oxygen Flow Rate (L/min) 15 Oxygen Delivery Method Nasal Cannula Weight: 332 lb 7.313 oz Body Mass Index (BMI) 51.2 Intake and Output for Last 24 Hours 05/23/20 05/24/20 05/25/20 23:59 23:59 23:59 Intake Total 720 / 720 1628 / 1748 165 / 165 Output Total 850 / 850 600 / 1250 1400 / 1400 Balance -130 / -130 1028 / 498 -1235 / -1235 Microbiology Past 72 Hours 05/25/20 04:42 Mucosa - Nose SARS-CoV-2 Antigen (Rapid) - Final Laboratory Results 05/23/20 12:10: Crossmatch See Detail 05/23/20 12:10: Crossmatch See Detail 05/23/20 12:10: Crossmatch See Detail 05/24/20 05:01: Hemoglobin A1c 6.3 H 05/24/20 05:01: Iron Cancelled, TIBC Cancelled, Iron Saturation Cancelled, Ferritin Cancelled 05/24/20 12:23: POC Glucose 207 H 05/24/20 16:07: POC Glucose 215 H 05/24/20 21:52: POC Glucose 178 H 05/25/20 04:54: Sodium 140, Potassium 4.4, Chloride 106, Carbon Dioxide 23.0, BUN 78 H, Creatinine 5.27 H, Estim Creat Clear Calc 14.60, Est GFR (MDRD) Af Amer 14 L, Est GFR (MDRD) Non-Af 12 L, BUN/Creatinine Ratio 14.8, Glucose 222 H, Calcium 8.1 L, Phosphorus 3.7, Albumin 2.7 L 05/25/20 04:54: WBC 11.3 H, RBC 2.55 L, Hgb 7.2 L, Hct 23.0 L, MCV 90.2, MCH 28.2, MCHC 31.3 L, RDW Std Deviation 49.0 H, RDW Coeff of Kassandra 15.0 H, Plt Count 145 L, MPV 10.7, Immature Gran % (Auto) 0.400, Neut % (Auto) 76.6 H, Lymph % (Auto) 10.9 L, [place] % (Auto) 11.3 H, Eos % (Auto) 0.6, Baso % (Auto) 0.2, Absolute Neuts (auto) 8.7 H, Absolute Lymphs (auto) 1.24, Nucleated RBC % 0 05/25/20 04:54: Lactic Acid 1.5 05/25/20 05:57: POC Glucose 199 H Current Medications Acetaminophen (Acetaminophen 325 Mg Tablet) 650 mg PO Q6H PRN PRN PRN Reason: Pain Score 1-10/Temp > 100.7 F Last Admin: 05/25/20 02:35 Dose: 650 mg Documented by: Al Hydroxide/Mg Hydroxide (Mag Hydrox/Al Hydrox/Simeth 30 Ml Udc) 30 ml PO Q4H PRN PRN PRN Reason: DYSPEPSIA Last Admin: 05/23/20 21:00 Dose: 30 ml Documented by: Ascorbic Acid (Ascorbic Acid 500 Mg Tablet) 1,000 mg PO DAILY [facility] Last Admin: 05/24/20 08:23 Dose: 1,000 mg Documented by: Atorvastatin Calcium (Atorvastatin Calcium 40 Mg Tablet) 40 mg PO QHS [facility] Last Admin: 05/24/20 21:48 Dose: 40 mg Documented by: Buspirone HCl (Buspirone 5 Mg Tablet) 10 mg PO DAILY [facility] Last Admin: 05/24/20 08:24 Dose: 10 mg Documented by: Carvedilol (Carvedilol 12.5 Mg Tablet) 12.5 mg PO BID [facility] Last Admin: 05/24/20 21:48 Dose: 12.5 mg Documented by: Cholecalciferol (Cholecalciferol (Vit D3) 25 Mcg Tablet (1,000 Units)) 25 mcg PO DAILY [facility] Last Admin: 05/24/20 08:27 Dose: 25 mcg Documented by: Clopidogrel Bisulfate (Clopidogrel Bisulfate 75 Mg Tablet) 75 mg PO DAILY [facility] Last Admin: 05/25/20 05:54 Dose: 75 mg Documented by: Dextrose (Dextrose 50%-Water 25 Gm/50 Ml Disp.Syrin) 0 gm IV X1 PRN; Protocol PRN Reason: Hypoglycemia Dicyclomine HCl (Dicyclomine 10 Mg Capsule) 20 mg PO TIDAC [facility] Last Admin: 05/25/20 05:50 Dose: Not Given Documented by: Furosemide (Furosemide 40 Mg/4 Ml Vial) 40 mg IV BID@1000,1800 [facility] Last Admin: 05/24/20 16:46 Dose: 40 mg Documented by: Gabapentin (Gabapentin 100 Mg Capsule) 100 mg PO BID [facility] Last Admin: 05/24/20 21:48 Dose: 100 mg Documented by: Glucagon (Glucagon 1 Mg/Ml Syringe) 1 mg IM .X1 PRN PRN Reason: Hypoglycemia Hydralazine HCl (Hydralazine 25 Mg Tablet) 25 mg PO TID [facility] Last Admin: 05/25/20 05:52 Dose: 25 mg Documented by: Insulin Glargine (Insulin Glargine 100 Units/Ml Pen) 12 units SC QHS [facility] Last Admin: 05/24/20 21:48 Dose: 12 u Documented by: Insulin Human Lispro (Insulin Lispro 100 Unit/Ml Insuln.Pen) 0 unit SC TIDAC [facility]; Protocol Last Admin: 05/25/20 05:51 Dose: Not Given Documented by: Multi-Ingredient Cream (Mineral Oil/Petrolatum,White Jar) 1 applic TOPICAL BID PRN [facility]; Protocol Last Admin: 05/24/20 08:22 Dose: 1 applic Documented by: Multivitamins (Multivitamins,Therapeutic Tablet) 1 tablet PO DAILYCM [facility] Last Admin: 05/24/20 08:25 Dose: 1 tablet Documented by: Nifedipine (Nifedipine 90 Mg Tablet) 90 mg PO DAILY [facility] Last Admin: 05/24/20 08:24 Dose: 90 mg Documented by: Nitroglycerin (Nitroglycerin (Inpatient Use) 0.4 Mg Tab.Subl) 0.4 mg SL Q5M PRN PRN Reason: CARDIAC/CHEST PAIN Last Admin: 05/23/20 20:55 Dose: 0.4 mg Documented by: Pantoprazole Sodium (Pantoprazole Sodium 40 Mg Tablet) 40 mg PO DAILY [facility] Last Admin: 05/24/20 08:24 Dose: 40 mg Documented by: Pyridoxine HCl (Pyridoxine Hcl 100 Mg Tablet) 100 mg PO DAILY [facility] Last Admin: 05/24/20 08:26 Dose: 100 mg Documented by: Simethicone (Simethicone 80 Mg Tablet) 80 mg PO TIDPC [facility] Last Admin: 05/24/20 16:46 Dose: 80 mg Documented by: Sodium Bicarbonate (Sodium Bicarbonate 650 Mg Tablet) 650 mg PO BID [facility] Last Admin: 05/24/20 21:56 Dose: 650 mg Documented by: Sodium Chloride (0.9% Saline Lock 10 Ml Syringe) 10 - 40 ml IV UD PRN PRN Reason: SALINE FLUSH Last Admin: 05/25/20 05:54 Dose: 10 ml Documented by: Venlafaxine HCl (Venlafaxine Xr 150 Mg Capsule) 150 mg PO DAILY [facility] Last Admin: 05/24/20 08:24 Dose: 150 mg Documented by: Warfarin Sodium 5 mg/ Warfarin (Sodium 7.5 mg) 12.5 mg PO DAILY@1700 [facility] Last Admin: 05/24/20 16:12 Dose: 12.5 mg Documented by: STROKE Vital Signs/Narrative: Vital Signs Temp Pulse Resp BP Pulse Ox 05/25/20 07:18 98.1 F 83 24 H 143/63 H 96 05/25/20 06:42 87 05/25/20 06:23 100.2 F H 85 28 H 148/85 H 97 05/25/20 06:08 99.8 F H 80 24 H 139/83 H 96 05/25/20 06:00 99.8 F H 84 23 H 158/85 H 95 05/25/20 05:52 92 05/25/20 05:00 100.7 F H 86 22 H 138/87 H 95 05/25/20 04:00 100.7 F H 85 25 H 151/76 H 95 Medical Necessity - Tobacco Use Smoking Status: Former smoker Assessment/Plan All Active Problems Chronic 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 (Resolved) Ulcer of left lower extremity with fat layer exposed (Resolved) Chest pain (Acute) (HFpEF) heart failure with preserved ejection fraction (Acute) Atrial fibrillation (Acute) Diastolic CHF, acute (Acute) CHF (congestive heart failure) (Acute) 1. Acute heart failure with preserved ejection fraction exacerbation EF 55% from to echocardiogram from 09/10/2012 Changes furosemide over to 40 mg twice daily IV from oral. Patient not a candidate for SRINIVASA inhibitor nor angiotensin receptor ashlee given chronic kidney disease stage IV-V. Continue hydralazine Check 2D echocardiogram 2. acute hypoxic respiratory failure 2/2 to above plus likely [facility] pulm consult 3. Chest pain Atypical Patient has had a GI work-up which patient states was unremarkable. Will request records from [facility]. Since his symptoms are atypical, will change his ranitidine over to pantoprazole and start him on simethicone. JONNA score 3, [place] score 94 Plan for a nuclear chemical stress test on 05/25/2020. Cycle troponins negative Reviewed a records from [facility], stress negative on 03/22/2018 4. Anemia Concerned that this may be symptomatic anemia as well causing some symptoms in regards to dyspnea and chest pain Will transfuse 1 unit of packed red blood cells Anemia is more pronounced than it was a year ago but this may be anemia of chronic disease Will check Hemoccult plus also other iron studies Goal hemoglobin is 8 or more given the patient's underlying coronary artery disease Will transfuse another unit 5. Chronic kidney disease stage IV-V Worse than it was a year ago. I suspect this is just been a chronic progression rather than acute derangement Monitor closely Consult nephrology. No immediate needs for renal replacement therapy at this time. We will adjust gabapentin to a safer renal dose of 100 twice daily Continue with sodium bicarbonate reviewed records from [facility]. Creatinine was 4.66 on 04/08/2020 6. Diabetes mellitus type 2 Fair control Hold glipizide given the worsening kidney disorder Sliding scale insulin A1c 6.3 7. Coronary artery disease Continue with clopidogrel, carvedilol 8. Atrial fibrillation Persistent Rate controlled Continue with carvedilol and warfarin. INR 3.1 today so we will hold off on warfarin today. 9. VTE prophylaxis: Not indicated as patient is anticoagulated 10. Advanced care planning: Patient was to be full CODE STATUS.
--- NOTE | 2020-05-25 07:59 | VDUE_ITS ---
Reason For Study: AV Fistula Right Arm Left Arm Right Cephalic Vein at the wrist measures Left Cephalic Vein at the wrist measures 0.40 x 0.42 cm. 0.43 x 0.46 cm. Right Cephalic Vein in the forearm measures Left Cephalic Vein in the forearm measures 0.40 x 0.40 cm. 0.39 x 0.41 cm. Right Cephalic Vein below antecub measures IV noted at wrist cephalic vein. 0.34 x 0.36 cm. Mid forearm branch that measures 0.32 x 0.37 Right Cephalic Vein above antecub measures cm. 0.50 x 0.50 cm. Left Cephalic Vein below antecub measures Right Cephalic Vein mid bicep measures 0.48 0.37 x 0.37 cm. x 0.47 cm. Left Cephalic Vein above antecub measures Right Cephalic Vein at the shoulder measures 0.33 x 0.34 cm. 0.48 x 0.52 cm. Left Cephalic Vein at mid bicep measures Right Basilic Vein at the origin measures 0.29 x 0.30 cm. 0.53 x 0.55 cm. Left Cephalic Vein at the shoulder measures Right Basilic Vein mid bicep measures 0.45 x 0.40 x 0.36 cm. 0.45 cm. Basilic vein at origin measures 0.64 x 0.62 Right Basilic Vein above antecub measures cm. 0.50 x 0.48 cm. Basilic vein at bicep measures 0.49 x 0.50 Right Brachial artery measures 0.45 x 0.45 cm. cm with a velocity of 137.4 cm/sec. Basilic vein above antecub measures 0.42 x Right Radial artery measures 0.23 x 0.22 cm 0.41 cm. with a velocity of 139.5 cm/sec. Left Brachial artery measures 0.44 x 0.44 sm with a velocity of 152.5 cm/sec. Left Radial artery measures 0.23 x 0.23 cm with a velocity of 172.1 cm/sec. VL/Saphenous Vein Mapping, Bilat Interpretation Summary Dimensions of bilateral cephalic and basilic veins bilaterally IV is noted in a potential fistula vein--the cephalic vein of the left wrist. Increased velocity flow bilateral brachial and radial arteries. Ordering Physician: Lillian Acharya Referring Physician: Yola Ng M.D. Performed By: Alyssa Mcgrath RVT ?
[2020-05-25] MEDS: Furosemide 40 MG/4 ML Vial IV ×2 (09:19→17:12)
[2020-05-25] MEDS: Ascorbic Acid 500 MG Tablet 1000 MG PO (09:20)
[2020-05-25] MEDS: Venlafaxine XR 150 MG Capsule PO (09:20)
[2020-05-25] MEDS: NIFEdipine 90 MG Tablet PO (09:20)
[2020-05-25] MEDS: Multivitamins,Therapeutic Tablet 1 TABLET PO (09:20)
[2020-05-25] MEDS: Cholecalciferol (VIT D3) 25 MCG TABLET (1,000 UNITS) PO (09:21)
[2020-05-25] MEDS: Sodium Bicarbonate 650 MG Tablet PO ×2 (09:21→22:31)
[2020-05-25] MEDS: busPIRone 5 MG Tablet 10 MG PO (09:21)
[2020-05-25] MEDS: Gabapentin 100 MG Capsule PO ×2 (09:27→22:32)
[2020-05-25] MEDS: Pyridoxine HCl 100 MG Tablet PO (09:27)
[2020-05-25] MEDS: Pantoprazole Sodium 40 MG Tablet PO (09:27)
[2020-05-25] MEDS: Carvedilol 12.5 MG Tablet PO ×2 (09:27→22:30)
--- NOTE | 2020-05-25 11:12 | PCM.CONS.R ---
Consultation - Renal 05/25/20 PCP/ Referring MD: Requesting physician: [] Primary care physician: Dr. Yola Ng MD Reason for Consultation:: MIRNA on CKD 4 vs progressive CKD to ESRD - History of Present Illness History of Present Illness: The patient is a 60 year old M presents with chest pain, CHF, SOB with leg edema on 05/23. Denies history of VT.admits to atrial fibrillation in the past, DVT LLE on warfarin managed by pcp. Troponin levels negative. Found to be anemic with hgb 7.5g, iron deficient. Denied hematochezia, melena. He is on diuretics at home for chronic leg swelling. He has ARRON on BIPAP, morbid obesity and diabetes for 10 years with neuropathy and retinopathy, cataracts. 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 He has diabetic foot ulcers managed by podiatry as outpt. Denies amputations. Creatinine elevated at 4.52 to 4.69 yesterday from 3.29 eGFR 23cc/min in June 12, 2019. 24h urine in progress. Renal US no hydro. - Allergies Allergies: Allergies cephalexin Allergy (Verified 05/23/20 08:40) Hives Penicillins Allergy (Verified 05/23/20 08:40) Hives - Current Medications Current Medications: Current Medications Acetaminophen (Acetaminophen 325 Mg Tablet) 650 mg PO Q6H PRN PRN PRN Reason: Pain Score 1-10/Temp > 100.7 F Last Admin: 05/25/20 02:35 Dose: 650 mg Documented by: Al Hydroxide/Mg Hydroxide (Mag Hydrox/Al Hydrox/Simeth 30 Ml Udc) 30 ml PO Q4H PRN PRN PRN Reason: DYSPEPSIA Last Admin: 05/23/20 21:00 Dose: 30 ml Documented by: Ascorbic Acid (Ascorbic Acid 500 Mg Tablet) 1,000 mg PO DAILY [facility] Last Admin: 05/25/20 09:20 Dose: 1,000 mg Documented by: Atorvastatin Calcium (Atorvastatin Calcium 40 Mg Tablet) 40 mg PO QHS [facility] Last Admin: 05/24/20 21:48 Dose: 40 mg Documented by: Buspirone HCl (Buspirone 5 Mg Tablet) 10 mg PO DAILY [facility] Last Admin: 05/25/20 09:21 Dose: 10 mg Documented by: Carvedilol (Carvedilol 12.5 Mg Tablet) 12.5 mg PO BID [facility] Last Admin: 05/25/20 09:27 Dose: 12.5 mg Documented by: Cholecalciferol (Cholecalciferol (Vit D3) 25 Mcg Tablet (1,000 Units)) 25 mcg PO DAILY [facility] Last Admin: 05/25/20 09:21 Dose: 25 mcg Documented by: Clopidogrel Bisulfate (Clopidogrel Bisulfate 75 Mg Tablet) 75 mg PO DAILY [facility] Last Admin: 05/25/20 05:54 Dose: 75 mg Documented by: Dextrose (Dextrose 50%-Water 25 Gm/50 Ml Disp.Syrin) 0 gm IV X1 PRN; Protocol PRN Reason: Hypoglycemia Dicyclomine HCl (Dicyclomine 10 Mg Capsule) 20 mg PO TIDAC [facility] Last Admin: 05/25/20 05:50 Dose: Not Given Documented by: Furosemide (Furosemide 40 Mg/4 Ml Vial) 40 mg IV BID@1000,1800 [facility] Last Admin: 05/25/20 09:19 Dose: 40 mg Documented by: Gabapentin (Gabapentin 100 Mg Capsule) 100 mg PO BID [facility] Last Admin: 05/25/20 09:27 Dose: 100 mg Documented by: Glucagon (Glucagon 1 Mg/Ml Syringe) 1 mg IM .X1 PRN PRN Reason: Hypoglycemia Hydralazine HCl (Hydralazine 25 Mg Tablet) 25 mg PO TID [facility] Last Admin: 05/25/20 05:52 Dose: 25 mg Documented by: Insulin Glargine (Insulin Glargine 100 Units/Ml Pen) 12 units SC QHS [facility] Last Admin: 05/24/20 21:48 Dose: 12 u Documented by: Insulin Human Lispro (Insulin Lispro 100 Unit/Ml Insuln.Pen) 0 unit SC TIDAC [facility]; Protocol Last Admin: 05/25/20 05:51 Dose: Not Given Documented by: Multi-Ingredient Cream (Mineral Oil/Petrolatum,White Jar) 1 applic TOPICAL BID PRN [facility]; Protocol Last Admin: 05/24/20 08:22 Dose: 1 applic Documented by: Multivitamins (Multivitamins,Therapeutic Tablet) 1 tablet PO DAILYCM [facility] Last Admin: 05/25/20 09:20 Dose: 1 tablet Documented by: Nifedipine (Nifedipine 90 Mg Tablet) 90 mg PO DAILY [facility] Last Admin: 05/25/20 09:20 Dose: 90 mg Documented by: Nitroglycerin (Nitroglycerin (Inpatient Use) 0.4 Mg Tab.Subl) 0.4 mg SL Q5M PRN PRN Reason: CARDIAC/CHEST PAIN Last Admin: 05/23/20 20:55 Dose: 0.4 mg Documented by: Pantoprazole Sodium (Pantoprazole Sodium 40 Mg Tablet) 40 mg PO DAILY [facility] Last Admin: 05/25/20 09:27 Dose: 40 mg Documented by: Pyridoxine HCl (Pyridoxine Hcl 100 Mg Tablet) 100 mg PO DAILY [facility] Last Admin: 05/25/20 09:27 Dose: 100 mg Documented by: Simethicone (Simethicone 80 Mg Tablet) 80 mg PO TIDPC [facility] Last Admin: 05/25/20 09:20 Dose: 80 mg Documented by: Sodium Bicarbonate (Sodium Bicarbonate 650 Mg Tablet) 650 mg PO BID [facility] Last Admin: 05/25/20 09:21 Dose: 650 mg Documented by: Sodium Chloride (0.9% Saline Lock 10 Ml Syringe) 10 - 40 ml IV UD PRN PRN Reason: SALINE FLUSH Last Admin: 05/25/20 05:54 Dose: 10 ml Documented by: Venlafaxine HCl (Venlafaxine Xr 150 Mg Capsule) 150 mg PO DAILY [facility] Last Admin: 05/25/20 09:20 Dose: 150 mg Documented by: Warfarin Sodium 5 mg/ Warfarin (Sodium 7.5 mg) 12.5 mg PO DAILY@1700 [facility] Last Admin: 05/24/20 16:12 Dose: 12.5 mg Documented by: - Past Medical History Past Medical History (Chronic Problems): Chronic Problems Equinus contracture of left ankle (Chronic) Edema of left lower leg due to peripheral venous insufficiency (Chronic) Other specified peripheral vascular diseases (Chronic) Type 2 diabetes mellitus with diabetic polyneuropathy (Chronic) Hammer toe of left foot (Chronic) Delayed wound healing (Chronic) Colonization status (Chronic) Anemia (Chronic) Acute exacerbation of CHF (congestive heart failure) (Chronic) [id number]-iphognz kidney injury (Chronic) Depression (Chronic) Essential hypertension (Chronic) Morbid obesity (Chronic) Type 2 diabetes mellitus (Chronic) History of DVT of lower extremity (Chronic) - Past Surgical History Surgical History: noncontributory, - - carpal tunnel syndrom surgery - Social History Smoking Status: Former smoker - Family History Maternal History Items: Heart Disease Review of Systems Constitutional: Denies: Anorexia, Chills, Fever, Weakness, Fatigue Eyes: Reports: Cataracts, - - retinopathy HEENT: Denies: Head Aches Cardiovascular: Reports: Edema - stable, - - hx afib. Denies: Chest Pain, Palpitations, Syncope Respiratory: Reports: Shortness of Breath, Shortness of breath at rest, - - ARRON on Bipap at home. Denies: Cough Gastrointestinal: Denies: Abdominal Pain, Diarrhea, Nausea, Vomiting Genitourinary: Denies: Dysuria, Retention Musculoskeletal: Reports: - - leg swelling chronic on diuretics at home Skin: Reports: - - skin discoloration chronic in legs Neurological: Reports: Numbness. Denies: Blurred vision, Tremor, Seizures Psychiatric: Reports: Depression. Denies: Anxiety Hematologic/ Lymphatic: Reports: Anemia, Hx of blood clot - LLE Patient Problems: Active and Suspected Problems Malnutrition (Suspected) Chest pain (Acute) (HFpEF) heart failure with preserved ejection fraction (Acute) Atrial fibrillation (Acute) Diastolic CHF, acute (Acute) CHF (congestive heart failure) (Acute) - Physical Exam Vitals/I&O's: Vital Signs Temp Pulse Resp BP Pulse Ox 98.7 F 83 20 H 147/67 H 96 05/25/20 10:00 05/25/20 10:00 05/25/20 10:00 05/25/20 10:00 05/25/20 10:00 Oxygen Flow Rate (L/min) 10 Oxygen Delivery Method Nasal Cannula Weight: 150.8 kg Body Mass Index (BMI) 51.2 Intake and Output for Last 24 Hours 05/23/20 05/24/20 05/25/20 23:59 23:59 23:59 Intake Total 720 / 720 1628 / 1748 565 / 565 Output Total 850 / 850 600 / 1250 1400 / 1400 Balance -130 / -130 1028 / 498 -835 / -835 General: Alert, Oriented x3, Cooperative HEENT: PERRLA, EOMI Oral: Dry Mucosa, - - mouth breather Lungs: Clear to auscultation, Diminished Cardiovascular: Regular rate, No rub noted Abdomen: Bowel Sounds Present, Soft, Non Tender, Distended, Obese Extremities: Edema Skin: - - hyperpigmentation of skin Musculoskeletal: No Muscle Wasting Neurological: Cranial nerves II-XII grossly intact, - - no tremor Psych/Mental Status: Normal Affect, Appropriate, Alert and oriented to time, place, person, mood and affect Microbiology Past 72 Hours 05/25/20 04:42 Mucosa - Nose SARS-CoV-2 Antigen (Rapid) - Final Laboratory Results 05/23/20 12:10: Crossmatch See Detail 05/23/20 12:10: Crossmatch See Detail 05/23/20 12:10: Crossmatch See Detail 05/24/20 12:23: POC Glucose 207 H 05/24/20 16:07: POC Glucose 215 H 05/24/20 21:52: POC Glucose 178 H 05/25/20 04:54: Sodium 140, Potassium 4.4, Chloride 106, Carbon Dioxide 23.0, BUN 78 H, Creatinine 5.27 H, Estim Creat Clear Calc 14.60, Est GFR (MDRD) Af Amer 14 L, Est GFR (MDRD) Non-Af 12 L, BUN/Creatinine Ratio 14.8, Glucose 222 H, Calcium 8.1 L, Phosphorus 3.7, Albumin 2.7 L 05/25/20 04:54: WBC 11.3 H, RBC 2.55 L, Hgb 7.2 L, Hct 23.0 L, MCV 90.2, MCH 28.2, MCHC 31.3 L, RDW Std Deviation 49.0 H, RDW Coeff of Kassandra 15.0 H, Plt Count 145 L, MPV 10.7, Immature Gran % (Auto) 0.400, Neut % (Auto) 76.6 H, Lymph % (Auto) 10.9 L, [place] % (Auto) 11.3 H, Eos % (Auto) 0.6, Baso % (Auto) 0.2, Absolute Neuts (auto) 8.7 H, Absolute Lymphs (auto) 1.24, Nucleated RBC % 0 05/25/20 04:54: Lactic Acid 1.5 05/25/20 05:57: POC Glucose 199 H 05/25/20 10:10: Creatinine Pending, Est GFR (MDRD) Af Amer Pending, Est GFR (MDRD) Non-Af Pending, Urine Collection Time Pending, Timed Urine Volume Pending, Urine Creatinine Pending, Creatinine Clearance Pending 05/25/20 10:10: Urine Collection Time Pending, Timed Urine Volume Pending, Ur Total Protein 24 Hr Pending, Urine Total Protein Pending Clinical Impression(s) from Imaging Studies Chest X-Ray 05/25/20 04:35 IMPRESSION: Worsening asymmetric vascular congestion and/or bilateral pneumonia. Stable cardiomegaly. Electronically Signed: Skyler Graham MD at 6:19 EDT , Service support , Renal Ultrasound 05/25/20 05:55 IMPRESSION: No obstructive uropathy or suspicious solid renal lesion Nonobstructing left nephrolithiasis Bladder diverticulum Electronically Signed: Giovanni Huston MD at 10:19 EDT , Service support , Current Medications Acetaminophen (Acetaminophen 325 Mg Tablet) 650 mg PO Q6H PRN PRN PRN Reason: Pain Score 1-10/Temp > 100.7 F Last Admin: 05/25/20 02:35 Dose: 650 mg Documented by: Al Hydroxide/Mg Hydroxide (Mag Hydrox/Al Hydrox/Simeth 30 Ml Udc) 30 ml PO Q4H PRN PRN PRN Reason: DYSPEPSIA Last Admin: 05/23/20 21:00 Dose: 30 ml Documented by: Ascorbic Acid (Ascorbic Acid 500 Mg Tablet) 1,000 mg PO DAILY [facility] Last Admin: 05/25/20 09:20 Dose: 1,000 mg Documented by: Atorvastatin Calcium (Atorvastatin Calcium 40 Mg Tablet) 40 mg PO QHS [facility] Last Admin: 05/24/20 21:48 Dose: 40 mg Documented by: Buspirone HCl (Buspirone 5 Mg Tablet) 10 mg PO DAILY [facility] Last Admin: 05/25/20 09:21 Dose: 10 mg Documented by: Carvedilol (Carvedilol 12.5 Mg Tablet) 12.5 mg PO BID [facility] Last Admin: 05/25/20 09:27 Dose: 12.5 mg Documented by: Cholecalciferol (Cholecalciferol (Vit D3) 25 Mcg Tablet (1,000 Units)) 25 mcg PO DAILY [facility] Last Admin: 05/25/20 09:21 Dose: 25 mcg Documented by: Clopidogrel Bisulfate (Clopidogrel Bisulfate 75 Mg Tablet) 75 mg PO DAILY [facility] Last Admin: 05/25/20 05:54 Dose: 75 mg Documented by: Dextrose (Dextrose 50%-Water 25 Gm/50 Ml Disp.Syrin) 0 gm IV X1 PRN; Protocol PRN Reason: Hypoglycemia Dicyclomine HCl (Dicyclomine 10 Mg Capsule) 20 mg PO TIDAC [facility] Last Admin: 05/25/20 05:50 Dose: Not Given Documented by: Furosemide (Furosemide 40 Mg/4 Ml Vial) 40 mg IV BID@1000,1800 [facility] Last Admin: 05/25/20 09:19 Dose: 40 mg Documented by: Gabapentin (Gabapentin 100 Mg Capsule) 100 mg PO BID [facility] Last Admin: 05/25/20 09:27 Dose: 100 mg Documented by: Glucagon (Glucagon 1 Mg/Ml Syringe) 1 mg IM .X1 PRN PRN Reason: Hypoglycemia Hydralazine HCl (Hydralazine 25 Mg Tablet) 25 mg PO TID [facility] Last Admin: 05/25/20 05:52 Dose: 25 mg Documented by: Insulin Glargine (Insulin Glargine 100 Units/Ml Pen) 12 units SC QHS [facility] Last Admin: 05/24/20 21:48 Dose: 12 u Documented by: Insulin Human Lispro (Insulin Lispro 100 Unit/Ml Insuln.Pen) 0 unit SC TIDAC [facility]; Protocol Last Admin: 05/25/20 05:51 Dose: Not Given Documented by: Multi-Ingredient Cream (Mineral Oil/Petrolatum,White Jar) 1 applic TOPICAL BID PRN [facility]; Protocol Last Admin: 05/24/20 08:22 Dose: 1 applic Documented by: Multivitamins (Multivitamins,Therapeutic Tablet) [facility] Last Admin: 05/25/20 09:20 Dose: 1 tablet Documented by: Nifedipine (Nifedipine 90 Mg Tablet) 90 mg PO DAILY [facility] Last Admin: 05/25/20 09:20 Dose: 90 mg Documented by: Nitroglycerin (Nitroglycerin (Inpatient Use) 0.4 Mg Tab.Subl) 0.4 mg SL Q5M PRN PRN Reason: CARDIAC/CHEST PAIN Last Admin: 05/23/20 20:55 Dose: 0.4 mg Documented by: Pantoprazole Sodium (Pantoprazole Sodium 40 Mg Tablet) 40 mg PO DAILY [facility] Last Admin: 05/25/20 09:27 Dose: 40 mg Documented by: Pyridoxine HCl (Pyridoxine Hcl 100 Mg Tablet) 100 mg PO DAILY [facility] Last Admin: 05/25/20 09:27 Dose: 100 mg Documented by: Simethicone (Simethicone 80 Mg Tablet) 80 mg PO TIDPC [facility] Last Admin: 05/25/20 09:20 Dose: 80 mg Documented by: Sodium Bicarbonate (Sodium Bicarbonate 650 Mg Tablet) 650 mg PO BID [facility] Last Admin: 05/25/20 09:21 Dose: 650 mg Documented by: Sodium Chloride (0.9% Saline Lock 10 Ml Syringe) 10 - 40 ml IV UD PRN PRN Reason: SALINE FLUSH Last Admin: 05/25/20 05:54 Dose: 10 ml Documented by: Venlafaxine HCl (Venlafaxine Xr 150 Mg Capsule) 150 mg PO DAILY [facility] Last Admin: 05/25/20 09:20 Dose: 150 mg Documented by: Warfarin Sodium 5 mg/ Warfarin (Sodium 7.5 mg) 12.5 mg PO DAILY@1700 [facility] Last Admin: 05/24/20 16:12 Dose: 12.5 mg Documented by: Assessment/Plan All Active Problems Chronic 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 (Resolved) Ulcer of left lower extremity with fat layer exposed (Resolved) Chest pain (Acute) (HFpEF) heart failure with preserved ejection fraction (Acute) Atrial fibrillation (Acute) Diastolic CHF, acute (Acute) CHF (congestive heart failure) (Acute) 1. acute on CKD stage 4 due to diuretics, diastolic HF vs progressive diabetic nephropathy. Await 24h urine. Renal US no hydro. Discussed possible need to start dialysis with tunneled catheter if CRCL <15cc/min. Vein mapping for AVF. Hold anticoagulation for elevated INR, possible access placement. 2. Diastolic HF continue with diuretics. 3. 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 Hx pafib in SR 5. Hx DVT LLE on anticoagulation 6. Iron def anemia iv iron load. 7. Diabetic foot ulcer followed by podiatry Dr. Hudson as outpt 8. Morbid obesity 9. Check PTH, vit D. Vein mapping for access placement.
[2020-05-25] MEDS: Dicyclomine 10 MG Capsule 20 MG PO ×2 (11:15→16:40)
[2020-05-25] MEDS: Insulin Lispro 100 UNIT/ML INSULN.PEN SC ×2 (11:16→16:41)
[2020-05-25 11:20] LABS: 24 Hour Urine Protein 1145.6 mg/24HR (<150 MG/24HR); 24HR. UA Prot. Total Volume 1175 mL; Urine Protein (24 Hour) 97.5 mg/dL (<11.9)
[2020-05-25 11:41] LABS: Bedside Glucose 194 mg/dL (70-110)
--- NOTE | 2020-05-25 11:41 | PCM.PN.HOSP ---
<Babar Matos - Last Filed: 05/25/20 12:37> Patient Problems: Active and Suspected Problems Malnutrition (Suspected) Chest pain (Acute) (HFpEF) heart failure with preserved ejection fraction (Acute) Atrial fibrillation (Acute) Diastolic CHF, acute (Acute) CHF (congestive heart failure) (Acute) Subjective: Patient is a 60-year-old male who is sitting in the chair sitting upright, alert and oriented x3. Patient breathing is still labored and accelerated at a rate of 20/min. Patient reports that he does feel better, suspect this may be his baseline. Patient reports that his chest pain that he feels may be related to excess gas from his stomach. Objective: Clinical Impression(s) from Imaging Studies Chest X-Ray 05/23/20 08:50 IMPRESSION: Cardiomegaly and pulmonary venous congestion. Superimposed mild infiltrate in right lung base is difficult to entirely exclude. Electronically Signed: Nate Bobby MD at 9:23 EDT Tel , Service support , Chest X-Ray 05/25/20 04:35 IMPRESSION: Worsening asymmetric vascular congestion and/or bilateral pneumonia. Stable cardiomegaly. Electronically Signed: Skyler Graham MD at 6:19 EDT , Service support , Renal Ultrasound 05/25/20 05:55 IMPRESSION: No obstructive uropathy or suspicious solid renal lesion Nonobstructing left nephrolithiasis Bladder diverticulum Electronically Signed: Giovanni Huston MD at 10:19 EDT , Service support , Vitals/I&O's: Vital Signs Temp Pulse Resp BP Pulse Ox 98.7 F 82 20 H 147/67 H 96 05/25/20 10:00 05/25/20 10:59 05/25/20 10:00 05/25/20 10:00 05/25/20 10:00 Oxygen Flow Rate (L/min) 10 Oxygen Delivery Method Nasal Cannula Weight: 332 lb 7.313 oz Body Mass Index (BMI) 51.2 Intake and Output for Last 24 Hours 05/23/20 05/24/20 05/25/20 23:59 23:59 23:59 Intake Total 720 / 720 1628 / 1748 565 / 565 Output Total 850 / 850 600 / 1250 1400 / 1400 Balance -130 / -130 1028 / 498 -835 / -835 General: Alert, Oriented x3, Cooperative HEENT: Atraumatic, PERRLA, EOMI, Normocephalic Neck: Supple, No JVD, Negative Carotid Bruits Lungs: Diminished, Tachypneic Cardiovascular: Regular rate, No murmurs Abdomen: Bowel Sounds Present, Soft, Non Tender Extremities: No edema, Capillary Refill Less than 3 Seconds, - - See skin Skin: Ulcer/ Wound - Chronic ulcer of the 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 Musculoskeletal: No Tenderness to Palpation of Joints or Extremities Neurological: Cranial nerves II-XII grossly intact Psych/Mental Status: Normal Affect, Appropriate Microbiology Past 72 Hours 05/25/20 04:42 Mucosa - Nose SARS-CoV-2 Antigen (Rapid) - Final Laboratory Results 05/23/20 12:10: Crossmatch See Detail 05/23/20 12:10: Crossmatch See Detail 05/23/20 12:10: Crossmatch See Detail 05/24/20 12:23: POC Glucose 207 H 05/24/20 16:07: POC Glucose 215 H 05/24/20 21:52: POC Glucose 178 H 05/25/20 04:54: Sodium 140, Potassium 4.4, Chloride 106, Carbon Dioxide 23.0, BUN 78 H, Creatinine 5.27 H, Estim Creat Clear Calc 14.60, Est GFR (MDRD) Af Amer 14 L, Est GFR (MDRD) Non-Af 12 L, BUN/Creatinine Ratio 14.8, Glucose 222 H, Calcium 8.1 L, Phosphorus 3.7, Albumin 2.7 L 05/25/20 04:54: WBC 11.3 H, RBC 2.55 L, Hgb 7.2 L, Hct 23.0 L, MCV 90.2, MCH 28.2, MCHC 31.3 L, RDW Std Deviation 49.0 H, RDW Coeff of Kassandra 15.0 H, Plt Count 145 L, MPV 10.7, Immature Gran % (Auto) 0.400, Neut % (Auto) 76.6 H, Lymph % (Auto) 10.9 L, [place] % (Auto) 11.3 H, Eos % (Auto) 0.6, Baso % (Auto) 0.2, Absolute Neuts (auto) 8.7 H, Absolute Lymphs (auto) 1.24, Nucleated RBC % 0 05/25/20 04:54: Lactic Acid 1.5 05/25/20 05:57: POC Glucose 199 H 05/25/20 10:10: Creatinine Pending, Est GFR (MDRD) Af Amer Pending, Est GFR (MDRD) Non-Af Pending, Urine Collection Time Pending, Timed Urine Volume Pending, Urine Creatinine Pending, Creatinine Clearance Pending 05/25/20 10:10: Urine Collection Time 24.0, Timed Urine Volume 1175, Ur Total Protein 24 Hr 1145.6 H, Urine Total Protein 97.5 H 05/25/20 11:15: POC Glucose Pending Current Medications Acetaminophen (Acetaminophen 325 Mg Tablet) 650 mg PO Q6H PRN PRN PRN Reason: Pain Score 1-10/Temp > 100.7 F Last Admin: 05/25/20 02:35 Dose: 650 mg Documented by: Al Hydroxide/Mg Hydroxide (Mag Hydrox/Al Hydrox/Simeth 30 Ml Udc) 30 ml PO Q4H PRN PRN PRN Reason: DYSPEPSIA Last Admin: 05/23/20 21:00 Dose: 30 ml Documented by: Ascorbic Acid (Ascorbic Acid 500 Mg Tablet) 1,000 mg PO DAILY [facility] Last Admin: 05/25/20 09:20 Dose: 1,000 mg Documented by: Atorvastatin Calcium (Atorvastatin Calcium 40 Mg Tablet) 40 mg PO QHS [facility] Last Admin: 05/24/20 21:48 Dose: 40 mg Documented by: Buspirone HCl (Buspirone 5 Mg Tablet) 10 mg PO DAILY [facility] Last Admin: 05/25/20 09:21 Dose: 10 mg Documented by: Carvedilol (Carvedilol 12.5 Mg Tablet) 12.5 mg PO BID [facility] Last Admin: 05/25/20 09:27 Dose: 12.5 mg Documented by: Cholecalciferol (Cholecalciferol (Vit D3) 25 Mcg Tablet (1,000 Units)) 25 mcg PO DAILY [facility] Last Admin: 05/25/20 09:21 Dose: 25 mcg Documented by: Clopidogrel Bisulfate (Clopidogrel Bisulfate 75 Mg Tablet) 75 mg PO DAILY [facility] Last Admin: 05/25/20 05:54 Dose: 75 mg Documented by: Dextrose (Dextrose 50%-Water 25 Gm/50 Ml Disp.Syrin) 0 gm IV X1 PRN; Protocol PRN Reason: Hypoglycemia Dicyclomine HCl (Dicyclomine 10 Mg Capsule) 20 mg PO TIDAC [facility] Last Admin: 05/25/20 11:15 Dose: 20 mg Documented by: Furosemide (Furosemide 40 Mg/4 Ml Vial) 40 mg IV BID@1000,1800 [facility] Last Admin: 05/25/20 09:19 Dose: 40 mg Documented by: Gabapentin (Gabapentin 100 Mg Capsule) 100 mg PO BID [facility] Last Admin: 05/25/20 09:27 Dose: 100 mg Documented by: Glucagon (Glucagon 1 Mg/Ml Syringe) 1 mg IM .X1 PRN PRN Reason: Hypoglycemia Hydralazine HCl (Hydralazine 25 Mg Tablet) 25 mg PO TID [facility] Last Admin: 05/25/20 05:52 Dose: 25 mg Documented by: Ferric Sodium Gluconate Complex 250 mg/ Sodium Chloride 270 mls @ 135 mls/hr IV X1 ONE Stop: 05/25/20 13:30 Insulin Glargine (Insulin Glargine 100 Units/Ml Pen) 12 units SC QHS [facility] Last Admin: 05/24/20 21:48 Dose: 12 u Documented by: Insulin Human Lispro (Insulin Lispro 100 Unit/Ml Insuln.Pen) 0 unit SC TIDAC [facility]; Protocol Last Admin: 05/25/20 11:16 Dose: 2 unit Documented by: Multi-Ingredient Cream (Mineral Oil/Petrolatum,White Jar) 1 applic TOPICAL BID PRN [facility]; Protocol Last Admin: 05/24/20 08:22 Dose: 1 applic Documented by: Multivitamins (Multivitamins,Therapeutic Tablet) 1 tablet PO DAILYCM [facility] Last Admin: 05/25/20 09:20 Dose: 1 tablet Documented by: Nifedipine (Nifedipine 90 Mg Tablet) 90 mg PO DAILY [facility] Last Admin: 05/25/20 09:20 Dose: 90 mg Documented by: Nitroglycerin (Nitroglycerin (Inpatient Use) 0.4 Mg Tab.Subl) 0.4 mg SL Q5M PRN PRN Reason: CARDIAC/CHEST PAIN Last Admin: 05/23/20 20:55 Dose: 0.4 mg Documented by: Pantoprazole Sodium (Pantoprazole Sodium 40 Mg Tablet) 40 mg PO DAILY [facility] Last Admin: 05/25/20 09:27 Dose: 40 mg Documented by: Pyridoxine HCl (Pyridoxine Hcl 100 Mg Tablet) 100 mg PO DAILY [facility] Last Admin: 05/25/20 09:27 Dose: 100 mg Documented by: Simethicone (Simethicone 80 Mg Tablet) 80 mg PO TIDPC [facility] Last Admin: 05/25/20 09:20 Dose: 80 mg Documented by: Sodium Bicarbonate (Sodium Bicarbonate 650 Mg Tablet) 650 mg PO BID [facility] Last Admin: 05/25/20 09:21 Dose: 650 mg Documented by: Sodium Chloride (0.9% Saline Lock 10 Ml Syringe) 10 - 40 ml IV UD PRN PRN Reason: SALINE FLUSH Last Admin: 05/25/20 05:54 Dose: 10 ml Documented by: Venlafaxine HCl (Venlafaxine Xr 150 Mg Capsule) 150 mg PO DAILY [facility] Last Admin: 05/25/20 09:20 Dose: 150 mg Documented by: Warfarin Sodium 5 mg/ Warfarin (Sodium 7.5 mg) 12.5 mg PO DAILY@1700 [facility] Last Admin: 05/24/20 16:12 Dose: 12.5 mg Documented by: STROKE Vital Signs/Narrative: Vital Signs Temp Pulse Resp BP Pulse Ox 05/25/20 10:59 82 05/25/20 10:00 98.7 F 83 20 H 147/67 H 96 05/25/20 09:34 93 05/25/20 09:11 98.7 F 82 22 H 159/69 H 95 05/25/20 09:00 98.7 F 84 22 H 146/66 H 95 05/25/20 08:00 98.5 F 79 22 H 146/63 H 95 Medical Necessity - Tobacco Use Smoking Status: Former smoker Assessment/Plan All Active Problems Chronic 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 (Resolved) Ulcer of left lower extremity with fat layer exposed (Resolved) Chest pain (Acute) (HFpEF) heart failure with preserved ejection fraction (Acute) Atrial fibrillation (Acute) Diastolic CHF, acute (Acute) CHF (congestive heart failure) (Acute) Patient is a 60-year-old male who presented to the ED on 05/23/2020 with a chief complaint of chest pain, shortness of breath and lower extremity edema. Patient was admitted for unspecified chest pain and acute CHF exacerbation. Ultrasound of the kidneys on 05/25/2020 revealed no obstructive uropathy or suspicious lesions, nonobstructive left nephrolithiasis and bladder diverticulum. Patient to receive echo and cardiac stress test today to assess CHF. Allergy consult ordered as well. 1) Acute heart failure with preserved ejection fraction exacerbation Assessment - Echocardiogram ordered for 05/25/2020 - Prior echocardiogram from 09/10/2012 demonstrated an EF of 55% - Not a candidate for SRINIVASA/ARB due to advanced CKD Plan -Continue hydralazine 2) Chest pain Assessment - Prior GI work-up unremarkable - Nuclear stress test take place on 05/25/2020 Plan - Cycle troponins - Check fasting lipid panel 3) Anemia Assessment - Considering symptomatic anemia in regards to dyspnea and chest pain - Hemoglobin 7.2 - No evidence of an acute bleed - Blood pressure not suggestive of hemodynamic compromise Plan - Continue to monitor CBC 4) CKD Stage IV-V Assessment - Estimated GFR of 12 - Creatinine 5.3, down from yesterday - Estimated creatinine clearance 14.6 Plan -Consulting nephrology 5) DM 2 Assessment -POC glucose 194 Plan - Continue to hold glipizide giving worsening kidney function - Check hemoglobin A1c 7) CAD Assessment -Already on Lipitor and Plavix Plan - Echocardiogram and stress test plan for - Continue clopidogrel and carvedilol 8) A-Fib Assessment - Rate control on carvedilol - Holding warfarin, INR 3.1 Plan - Continue to hold warfarin due to supratherapeutic INR - Continue rate control with carvedilol DVT Prophylaxis - already on warfarin Patient seen by Babar Matos PA-C, under the supervision of Dr. Zamora. <Dalton Zamora - Last Filed: 05/25/20 15:12> Reason for Visit: Follow-up for CHF exacerbation and acute hypoxic respiratory failure. CKD stage IV Objective: Patient states shortness of breath and leg swelling is improved. Leg swelling is more on upper thigh and her knees. Varicose vein. Patient was on nonrebreather mask 15 L which is improved to 10 L in the morning. 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 Physical exam General: Alert, Oriented x3, Cooperative, morbid obesity BMI 50.4 kg/m? HEENT: Atraumatic, PERRLA, EOMI, Normocephalic Oral: No Gingival or Mucosal Lesions/ Ulcerations Neck: Supple, No JVD, Negative Carotid Bruits Lungs: Air entry diminished in bilateral lung bases. Bilateral coarse crepitations and rhonchi present Cardiovascular: Irregular heart rate with multiple PACs. Normal S1, Normal S2, systolic murmur over LLSB and right second ICS Abdomen: Bowel Sounds Present, Soft, Non Tender, Non-Distended : No renal angle tenderness. No suprapubic tenderness. Extremities: Bilateral lower extremity edema, Capillary Refill Less than 3 Seconds Skin: No rashes, No breakdown Musculoskeletal: No Tenderness to Palpation of Joints or Extremities Neurological: Cranial nerves II-XII grossly intact, Deep Tendon Reflexes 2+/4 and Symmetrical, Neuro grossly intact Psych/Mental Status: Normal Affect, Appropriate. Vitals/I&O's: Vital Signs Temp Pulse Resp BP Pulse Ox 98.7 F 85 20 H 141/58 H 96 05/25/20 10:00 05/25/20 13:24 05/25/20 10:00 05/25/20 13:24 05/25/20 10:00 Oxygen Flow Rate (L/min) 10 Oxygen Delivery Method Nasal Cannula Weight: 332 lb 7.313 oz Body Mass Index (BMI) 51.2 Intake and Output for Last 24 Hours 05/23/20 05/24/20 05/25/20 23:59 23:59 23:59 Intake Total 720 / 720 1628 / 1748 1235 / 1235 Output Total 850 / 850 600 / 1250 2400 / 2400 Balance -130 / -130 1028 / 498 -1165 / -1165 Microbiology Past 72 Hours 05/25/20 04:42 Mucosa - Nose SARS-CoV-2 Antigen (Rapid) - Final Laboratory Results 05/23/20 12:10: Crossmatch See Detail 05/23/20 12:10: Crossmatch See Detail 05/23/20 12:10: Crossmatch See Detail 05/24/20 16:07: POC Glucose 215 H 05/24/20 21:52: POC Glucose 178 H 05/25/20 04:54: Sodium 140, Potassium 4.4, Chloride 106, Carbon Dioxide 23.0, BUN 78 H, Creatinine 5.27 H, Estim Creat Clear Calc 14.60, Est GFR (MDRD) Af Amer 14 L, Est GFR (MDRD) Non-Af 12 L, BUN/Creatinine Ratio 14.8, Glucose 222 H, Calcium 8.1 L, Phosphorus 3.7, Albumin 2.7 L 05/25/20 04:54: WBC 11.3 H, RBC 2.55 L, Hgb 7.2 L, Hct 23.0 L, MCV 90.2, MCH 28.2, MCHC 31.3 L, RDW Std Deviation 49.0 H, RDW Coeff of Kassandra 15.0 H, Plt Count 145 L, MPV 10.7, Immature Gran % (Auto) 0.400, Neut % (Auto) 76.6 H, Lymph % (Auto) 10.9 L, [place] % (Auto) 11.3 H, Eos % (Auto) 0.6, Baso % (Auto) 0.2, Absolute Neuts (auto) 8.7 H, Absolute Lymphs (auto) 1.24, Nucleated RBC % 0 05/25/20 04:54: Lactic Acid 1.5 05/25/20 05:57: POC Glucose 199 H 05/25/20 10:10: Creatinine 5.3 H, Est GFR (MDRD) Af Amer 14 L, Est GFR (MDRD) Non-Af 12 L, Urine Collection Time 24.0, Timed Urine Volume 1175, Urine Creatinine 83.6, Creatinine Clearance 13 L 05/25/20 10:10: Urine Collection Time 24.0, Timed Urine Volume 1175, Ur Total Protein 24 Hr 1145.6 H, Urine Total Protein 97.5 H 05/25/20 11:15: POC Glucose 194 H Current Medications Acetaminophen (Acetaminophen 325 Mg Tablet) 650 mg PO Q6H PRN PRN PRN Reason: Pain Score 1-10/Temp > 100.7 F Last Admin: 05/25/20 02:35 Dose: 650 mg Documented by: Al Hydroxide/Mg Hydroxide (Mag Hydrox/Al Hydrox/Simeth 30 Ml Udc) 30 ml PO Q4H PRN PRN PRN Reason: DYSPEPSIA Last Admin: 05/23/20 21:00 Dose: 30 ml Documented by: Ascorbic Acid (Ascorbic Acid 500 Mg Tablet) 1,000 mg PO DAILY [facility] Last Admin: 05/25/20 09:20 Dose: 1,000 mg Documented by: Atorvastatin Calcium (Atorvastatin Calcium 40 Mg Tablet) 40 mg PO QHS [facility] Last Admin: 05/24/20 21:48 Dose: 40 mg Documented by: Buspirone HCl (Buspirone 5 Mg Tablet) 10 mg PO DAILY [facility] Last Admin: 05/25/20 09:21 Dose: 10 mg Documented by: Carvedilol (Carvedilol 12.5 Mg Tablet) 12.5 mg PO BID [facility] Last Admin: 05/25/20 09:27 Dose: 12.5 mg Documented by: Cholecalciferol (Cholecalciferol (Vit D3) 25 Mcg Tablet (1,000 Units)) 25 mcg PO DAILY [facility] Last Admin: 05/25/20 09:21 Dose: 25 mcg Documented by: Clopidogrel Bisulfate (Clopidogrel Bisulfate 75 Mg Tablet) 75 mg PO DAILY [facility] Last Admin: 05/25/20 05:54 Dose: 75 mg Documented by: Dextrose (Dextrose 50%-Water 25 Gm/50 Ml Disp.Syrin) 0 gm IV X1 PRN; Protocol PRN Reason: Hypoglycemia Dicyclomine HCl (Dicyclomine 10 Mg Capsule) 20 mg PO TIDAC [facility] Last Admin: 05/25/20 11:15 Dose: 20 mg Documented by: Furosemide (Furosemide 40 Mg/4 Ml Vial) 40 mg IV BID@1000,1800 [facility] Last Admin: 05/25/20 09:19 Dose: 40 mg Documented by: Gabapentin (Gabapentin 100 Mg Capsule) 100 mg PO BID [facility] Last Admin: 05/25/20 09:27 Dose: 100 mg Documented by: Glucagon (Glucagon 1 Mg/Ml Syringe) 1 mg IM .X1 PRN PRN Reason: Hypoglycemia Hydralazine HCl (Hydralazine 25 Mg Tablet) 25 mg PO TID [facility] Last Admin: 05/25/20 13:24 Dose: 25 mg Documented by: Insulin Glargine (Insulin Glargine 100 Units/Ml Pen) 12 units SC QHS [facility] Last Admin: 05/24/20 21:48 Dose: 12 u Documented by: Insulin Human Lispro (Insulin Lispro 100 Unit/Ml Insuln.Pen) 0 unit SC TIDAC [facility]; Protocol Last Admin: 05/25/20 11:16 Dose: 2 unit Documented by: Multi-Ingredient Cream (Mineral Oil/Petrolatum,White Jar) 1 applic TOPICAL BID PRN [facility]; Protocol Last Admin: 05/24/20 08:22 Dose: 1 applic Documented by: Multivitamins (Multivitamins,Therapeutic Tablet) 1 tablet PO DAILYCM [facility] Last Admin: 05/25/20 09:20 Dose: 1 tablet Documented by: Nifedipine (Nifedipine 90 Mg Tablet) 90 mg PO DAILY [facility] Last Admin: 05/25/20 09:20 Dose: 90 mg Documented by: Nitroglycerin (Nitroglycerin (Inpatient Use) 0.4 Mg Tab.Subl) 0.4 mg SL Q5M PRN PRN Reason: CARDIAC/CHEST PAIN Last Admin: 05/23/20 20:55 Dose: 0.4 mg Documented by: Pantoprazole Sodium (Pantoprazole Sodium 40 Mg Tablet) 40 mg PO DAILY [facility] Last Admin: 05/25/20 09:27 Dose: 40 mg Documented by: Pyridoxine HCl (Pyridoxine Hcl 100 Mg Tablet) 100 mg PO DAILY [facility] Last Admin: 05/25/20 09:27 Dose: 100 mg Documented by: Simethicone (Simethicone 80 Mg Tablet) 80 mg PO TIDPC [facility] Last Admin: 05/25/20 12:07 Dose: 80 mg Documented by: Sodium Bicarbonate (Sodium Bicarbonate 650 Mg Tablet) 650 mg PO BID [facility] Last Admin: 05/25/20 09:21 Dose: 650 mg Documented by: Sodium Chloride (0.9% Saline Lock 10 Ml Syringe) 10 - 40 ml IV UD PRN PRN Reason: SALINE FLUSH Last Admin: 05/25/20 05:54 Dose: 10 ml Documented by: Venlafaxine HCl (Venlafaxine Xr 150 Mg Capsule) 150 mg PO DAILY [facility] Last Admin: 05/25/20 09:20 Dose: 150 mg Documented by: Warfarin Sodium 5 mg/ Warfarin (Sodium 7.5 mg) 12.5 mg PO DAILY@1700 [facility] Last Admin: 05/24/20 16:12 Dose: 12.5 mg Documented by: STROKE Vital Signs/Narrative: Vital Signs Pulse BP 05/25/20 13:24 85 141/58 H 05/25/20 10:59 82 Assessment/Plan This patient was seen in conjunction with ELVIS Paredes. I have independently interviewed and examined the patient and reviewed pertinent history, examination findings, laboratory and plan of management. I have reviewed the note and agree with the documented findings with the few additional points. In brief, patient is a 60-year-old question gentleman with multiple comorbidities admitted with acute hypoxic respiratory failure secondary to acute on chronic diastolic heart failure. Patient alternatively on high flow oxygen in the morning and BiPAP at night. On IV diuretic. 2D echo is ordered. Previous echo of 2016 shows EF 55% with moderate concentric LVH, LA moderately enlarged suggestive of diastolic heart failure/HFpEF. Acute kidney injury on CKD stage 5: Due to diuretics, heart failure versus progressive diabetic nephropathy: Being followed by cost estimating engineer. 24-hour timed urine collection shows creatinine kinase 13 mL/min suggestive of CKD stage V. Renal sonogram shows no obstructive uropathy or suspicious solid renal lesion. Diabetes mellitus type 2. Paroxysmal A. fib. 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 Previous EKG March 25 shows A. fib at 133 bpm. Other comorbidities include severe anemia due to chronic kidney disease, coronary artery disease, history of DVT depression and morbid obesity: 1 unit of PRBC transfused today, total 3 units. I have discussed my assessment with ELVIS Paredes and orders have been reviewed. Total time of the visit including total time spent in counseling or coordination of care, (more than 50% of the total time, spent in obtaining medical information from nurses and other ancillary care providers,explaining to the patient about labs, imaging, diagnosis and management), discussion with cost estimating engineer and software sales consultant, review of labs and imaging is 30 minutes. Clinical Impression(s) from Imaging Studies Chest X-Ray 05/23/20 08:50 IMPRESSION: Cardiomegaly and pulmonary venous congestion. Superimposed mild infiltrate in right lung base is difficult to entirely exclude. Chest X-Ray 05/25/20 04:35 IMPRESSION: Worsening asymmetric vascular congestion and/or bilateral pneumonia. Stable cardiomegaly. Renal Ultrasound 05/25/20 05:55 IMPRESSION: No obstructive uropathy or suspicious solid renal lesion Nonobstructing left nephrolithiasis Bladder diverticulum Inpatient E&M: [id number] [facility] L3
[2020-05-25 11:47] LABS: Creat.Clear Total Volume 1175 mL; Creatinine Clearance 13 ml/min (100-200); Creatinine Serum Creat 5.3 mg/dL (0.8-1.3); Creatinine Urine 83.6 mg/dL (NO RANGE EST.); EST Glomerular Filtration Rate 12 mL/min (>60); Est Glom Filt Rate - Afr Amer 14 mL/min (>60)
--- NOTE | 2020-05-25 12:12 | CASEMGMT ---
This RN CM to room to complete CM assessment and pt is getting care by RN. CM to return later to complete assessment. SStaten RN CM
--- NOTE | 2020-05-25 13:25 | CASEMGMT ---
KAMRON GEORGE assessment: Face to Face with patient for initial transition planning/care coordination assessment. KAMRON GEORGE introduced self and role at [facility], pt voices understanding and consents to assessment. Pt is sitting up on side of bed on 9L nc. Pt is A/Ox4 and answers all questions appropriately. Care providers, pharmacy, and demographics verified. Presentation: CP for months, pt states it feels better with belching Admitting dx: CHF PCP: Berenice Specialists: Pt states no current specialists. Pt states did have a kidney dr and passport support associate but no longer follows with them. Preferred Pharmacy: [facility] Insurance: [place] Prescription Benefit: [place] Living Will/HPOA: Pt states does not have LW/HPOA and declines AD info. LNOK: Ingrid Reyes, friend; Ria Urrutia, friend Living Arrangements: Pt states lives alone in mobile home with 4 steps into home and states no concerns at home. Pt states is indepedent with ADL's. Transportation: Pt states drives self and states no transportation concerns. DME/HHC: Pt states has a cpap but lost his insurance and no longer has company for supplies. After provided a list of local in-network DME companies, pt states would like [facility] if qualifies for home oxygen at discharge. Pt also most likely will need OP HD set up and after provided local list of in-network dialysis centers, pt states he would like [facility] with a MWF schedule preference. Pt states no hx of HHC or SNF in the past. Pt states no concerns with going home at time of discharge. Pt states is retired. Pt states quit smoking cigarettes in 2000 and states does not drink ETOH. Pt states no further concerns/needs. CM to follow for home oxygen qualification, dialysis, and any further discharge planning/needs. Advised pt to ask for CM if any further questions/concerns/needs arise, voices understanding. Pt Goal: Home Plan: Home S[place]en KAMRON GEORGE
--- NOTE | 2020-05-25 15:24 | CASEMGMT ---
Pt qualifies for palliative c/s via [facility] palliative screening tool and Dr. Zamora is agreeable to c/s. Referral faxed to Palliative and call to palliative to notify of c/s. Ben LUNDY CM
[2020-05-25 15:55] LABS: Prothrombin Time (Protime)PT. 30.5 SECONDS (11.7-14.9)
[2020-05-25 16:40] LABS: Mucous, Urine 0 SEEN /hpf (<or=2+)
[2020-05-25 16:55] LABS: Color, Urine Red (Yellow); Glucose, Dipstick Normal (Normal); Ketone-Dipstick Negative (Negative); Leukocyte Esterase-Dipstick 100 /ul (Negative); Nitrite-Dipstick Positive (Negative); Occult Blood-Urine 250 /ul (Negative); Protein-Dipstick 500 mg/dl (Negative); Specific Gravity, Urine 1.015 (1.002-1.030); Urine Bilirubin Dipstick Negative (Negative); Urine Clarity Cloudy (Clear); Urine Urobilinogen Normal (Normal)
[2020-05-25 16:56] LABS: Bedside Glucose 191 mg/dL (70-110)
[2020-05-25 17:04] LABS: Red Blood Cells-Urine > 100 SEEN /hpf (0-5); Squamous Epithelial Cells - UA 0-5 SEEN /hpf (0-5)
[2020-05-25 17:05] LABS: Bacteria 1+ /hpf (None Seen); White Blood Cells 0-5 SEEN /hpf (0-5)
[2020-05-25] MEDS: Atorvastatin Calcium 40 MG Tablet PO (22:29)
[2020-05-25 23:06] LABS: Bedside Glucose 232 mg/dL (70-110)
[2020-05-26] VITALS (15 sets, daily range): BP systolic 111–134; BP diastolic 54–81; PULSE 78–93; RESP 18–24; TEMP 36.6–36.9; O2SAT 93–100
[2020-05-26 04:56] LABS: Absolute Lymphocyte Count 1.11 X10^3/uL (0.83-4.51); Absolute Neutrophil Count 12.7 X10^3/uL (2.0-7.7); Basophil# 0.02 X10^3/uL; Basophil% 0.1 % (0-1); Eosinophil# 0.01 X10^3/uL; Eosinophils% 0.1 % (0-5); Hematocrit 25.8 % (40-54); Hemoglobin 8.1 g/dL (13.0-16.5); Lymphocyte # 1.11 X10^3/ul (4.0); Lymphocyte % 7.3 % (19-41); Mean Corp Hgb Conc 31.4 g/dL (32-36); Mean Corpuscular Hgb 28.2 pg (27.0-32.0); Mean Corpuscular Volume 89.9 fL (80-94); Mean Platelet Vol. 11.1 fl (6.2-12.0); Monocyte# 1.21 X10^3/uL; NRBC Flagged by Analyzer 0 % (0-5); Neutrophil # 12.65 X10^3/uL (2.7-7.7); Neutrophil % 83.8 % (47-70); Platelet Count 192 K/mm3 (150-450); RBC Distribution Width CV 15.1 % (11.6-14.6); RBC Distribution Width SD 49.4 fl (35.1-43.9); Red Blood Count 2.87 M/mm3 (4.6-6.2); White Blood Count 15.1 K/mm3 (4.4-11.0)
[2020-05-26 05:09] LABS: International Normalized Ratio 3.1; Prothrombin Time (Protime)PT. 31.2 SECONDS (11.7-14.9)
[2020-05-26 05:19] LABS: ALB/GLOB Ratio 0.7 RATIO (0.9-2.4); AST(SGOT) 20 U/L (15-37); Alanine Aminotransfer ALT/SGPT 27 U/L (16-61); Alkaline Phosphatase 78 U/L (45-117); Anion Gap 10 (5-15); BUN 90 mg/dL (7-18); BUN/Creat Ratio 15.3 RATIO (10-20); Calcium,Total 8.5 mg/dL (8.5-10.1); Chloride 106 mmol/L (98-107); Creatinine, Serum 5.88 mg/dL (0.70-1.30); EST Glomerular Filtration Rate 11 mL/min (>60); Est Glom Filt Rate - Afr Amer 13 mL/min (>60); Estimated Creatinine Clearance 13.09 ml/min; Globulin 4.5 g/dL (2.2-4.2); Glucose 205 mg/dL (74-106); Potassium 4.3 mmol/L (3.5-5.1); Protein, Total 7.5 g/dL (6.4-8.2); Sodium Level 137 mmol/L (136-145)
--- NOTE | 2020-05-26 06:10 | EKG12_ITS ---
Test Reason : CHEST PRESSURE Blood Pressure : / mmHG Vent. Rate : 103 BPM Atrial Rate : 113 BPM P-R Int : 330 ms QRS Dur : 078 ms QT Int : 326 ms P-R-T Axes : -15 081 -14 degrees QTc Int : 427 ms Sinus tachycardia with 1st degree A-V block Low voltage QRS Nonspecific ST and T wave abnormality Abnormal ECG Confirmed by LIZZY HARVEY, BRIANNA ([id number]), editorial project manager ZACHARIAH ABURTO ([id number]) on 06/08/2020 8:57:41 AM Referred By: EVELYNE Confirmed By:BRIANNA BALL MD
[2020-05-26] MEDS: hydrALAZINE 25 MG Tablet PO ×3 (06:37→22:49)
[2020-05-26] MEDS: Insulin Lispro 100 UNIT/ML INSULN.PEN SC ×3 (06:37→16:36)
[2020-05-26] MEDS: Dicyclomine 10 MG Capsule 20 MG PO ×3 (06:37→16:36)
[2020-05-26 06:45] LABS: Magnesium 2.2 mg/dL (1.6-2.6)
[2020-05-26 06:55] LABS: Bedside Glucose 194 mg/dL (70-110)
[2020-05-26 08:35] LABS: PTHIN 376.2 pg/mL (18.4-80.1)
--- NOTE | 2020-05-26 08:42 | CON.PCM_ITS ---
Problem List (1) Oates-ll-eeyerfd kidney injury Status: Chronic Reason for Consult Date of Consultation: 05/26/20 Reason for Consultation: Acute on Chronic renal failure. In need of dialysis access. History of Present Illness: The patient is a 60 year old M who presents with chest tightness and shortness of breath. Patient notes the chest tightness was related to gas pains. He notes also having CHF symptoms, which he has had in the past. He notes a history of A fib which he is maintained on Coumadin and Plavix. His PCP, Dr. Ng, manages these medications. He notes his treatment coordinator retired and he has not established with a new one. He notes a history of sleep apnea however does not use a CPAP machine due to his broke. He is currently on 8 L of oxygen in the hospital. He was recently forced to retire a year ago due to ongoing medical issues. He states he was at his position for 34 years prior to halfway. He notes he is in the process of finding insurance which is why he does not have a new CPAP machine or a treatment coordinator. He has a history of diabetes as well as multiple other comorbidities. He has never been on dialysis previously. He is not established with a property field adjuster. He notes seeing a property field adjuster out of [place] however he did not care for the this physician and never continued care with him. Patient's creatinine has steadily been increasing throughout the years with the highest being today at 5.88. Past Medical History Past Medical History (Chronic Problems): Chronic Problems Equinus contracture of left ankle (Chronic) Edema of left lower leg due to peripheral venous insufficiency (Chronic) Other specified peripheral vascular diseases (Chronic) Type 2 diabetes mellitus with diabetic polyneuropathy (Chronic) Hammer toe of left foot (Chronic) Delayed wound healing (Chronic) Colonization status (Chronic) Anemia (Chronic) Acute exacerbation of CHF (congestive heart failure) (Chronic) Jbusx-nn-fnlbptz kidney injury (Chronic) Depression (Chronic) Essential hypertension (Chronic) Morbid obesity (Chronic) Type 2 diabetes mellitus (Chronic) History of DVT of lower extremity (Chronic) Allergies cephalexin Allergy (Verified 05/23/20 08:40) Hives Penicillins Allergy (Verified 05/23/20 08:40) Hives Home Medications: Ambulatory Orders Medication Instructions Recorded Ascorbic Acid [Vitamin C] 1,000 mg PO DAILY 12/02/16 Buspirone HCl 10 mg PO BID 12/02/16 Carvedilol [Coreg (Beta Federico)] 12.5 mg PO BID 12/02/16 Cholecalciferol (VIT D3) [Vitamin 1,000 unit PO DAILY 12/02/16 D3] Dicyclomine HCl 20 mg PO TID 12/02/16 Gabapentin [Neurontin] 600 mg PO BID 12/02/16 Multivitamin [Multiple Vitamins] 1 each PO DAILY 12/02/16 Nifedipine [Nifedipine ER] 90 mg PO QHS 12/02/16 Psyllium Husk (with Sugar) 3.4 gm PO PRN PRN 12/02/16 [Metamucil Packet] Venlafaxine XR [Effexor Xr] 150 mg PO DAILY 12/02/16 Warfarin [Coumadin] 12.5 mg PO DINNER 12/02/16 Atorvastatin Calcium 40 mg PO DAILY 05/23/20 Clopidogrel Bisulfate [Clopidogrel] 75 mg PO DAILY 05/23/20 Furosemide [Lasix] 40 mg PO DAILY 05/23/20 Glipizide [Glipizide ER] 5 mg PO DINNER 05/23/20 Insulin NPH Human Isophane 12 units SQ QHS 05/23/20 [Humulin N Kwikpen] Pyridoxine HCl (Vitamin B6) 100 mg PO DAILY 05/23/20 [Vitamin B-6] Sodium Bicarbonate 650 mg PO BID 05/23/20 hydrALAZINE [Apresoline] 25 mg PO TID 05/23/20 Surgical History: noncontributory, - - carpal tunnel syndrom surgery Psychiatric History: No pertinent psych hx Lives: Alone Smoking Status: Former smoker Alcohol: Rare Drugs: None - *Family History Maternal History Items: Heart Disease Review of Systems Constitutional: Reports: Fatigue HEENT: Denies: Head Aches, Sinus Congestion, Sinus Drainage Cardiovascular: Reports: Chest Tightness Respiratory: Reports: Cough, Shortness of Breath Gastrointestinal: Reports: Abdominal Pain - gas pain, generalized Genitourinary: Denies: Dysuria Musculoskeletal: Reports: Foot Pain Skin: Denies: Rash, Wounds Neurological: Reports: Balance problems Psychiatric: Denies: Anxiety, Depression, Homicidal Ideations, Suicidal Ideations Hematologic/ Lymphatic: Reports: Anemia, Easy Bruising, Easy Bleeding Patient Problems: Active and Suspected Problems Malnutrition (Suspected) Chest pain (Acute) (HFpEF) heart failure with preserved ejection fraction (Acute) Atrial fibrillation (Acute) Diastolic CHF, acute (Acute) CHF (congestive heart failure) (Acute) - Physical Exam Vitals/I&O's: Vital Signs Temp Pulse Resp BP Pulse Ox 98.1 F 85 19 H 111/72 100 05/26/20 08:34 05/26/20 08:34 05/26/20 08:34 05/26/20 08:34 05/26/20 08:34 Oxygen Flow Rate (L/min) 8 Oxygen Delivery Method Nasal Cannula Weight: 332 lb 3.786 oz Body Mass Index (BMI) 51.2 Intake and Output for Last 24 Hours 05/24/20 05/25/20 05/26/20 23:59 23:59 23:59 Intake Total 1628 / 1748 1455 / 1455 180 / 180 Output Total 600 / 1250 2550 / 2550 250 / 250 Balance 1028 / 498 -1095 / -1095 -70 / -70 General: Alert, Oriented x3, Cooperative HEENT: Atraumatic, PERRLA, EOMI, Normocephalic, - - Large, thick neck Neck: Supple, No JVD, Negative Carotid Bruits Lungs: Clear to auscultation, Normal air movement Cardiovascular: Regular rate, No murmurs Abdomen: Hypoactive Bowel Sounds, Obese Extremities: Edema Skin: Ulcer/ Wound - foot Musculoskeletal: No Tenderness to Palpation of Joints or Extremities Neurological: Neuro grossly intact Psych/Mental Status: Normal Affect, Appropriate Microbiology Past 72 Hours 05/25/20 04:42 Mucosa - Nose SARS-CoV-2 Antigen (Rapid) - Final Laboratory Results 05/23/20 12:10: Crossmatch See Detail 05/25/20 10:10: Creatinine 5.3 H, Est GFR (MDRD) Af Amer 14 L, Est GFR (MDRD) Non-Af 12 L, Urine Collection Time 24.0, Timed Urine Volume 1175, Urine Creatinine 83.6, Creatinine Clearance 13 L 05/25/20 10:10: Urine Collection Time 24.0, Timed Urine Volume 1175, Ur Total Protein 24 Hr 1145.6 H, Urine Total Protein 97.5 H 05/25/20 11:15: POC Glucose 194 H 05/25/20 15:25: PT 30.5 H, INR 3.0 05/25/20 16:00: Urine Color Red, Urine Clarity Cloudy, Urine pH 5.0, Ur Specific [place] 1.015, Urine Protein 500 H, Urine Glucose (UA) Normal, Urine Ketones Negative, Urine Occult Blood 250 H, Urine Nitrite Positive H, Urine Bilirubin Negative, Urine Urobilinogen Normal, Ur Leukocyte Esterase 100 H, Urine RBC > 100 SEEN, Urine WBC 0-5 SEEN, Ur Squamous Epith Cells 0-5 SEEN, Urine Bacteria 1+, Urine Mucus 0 SEEN 05/25/20 16:38: POC Glucose 191 H 05/25/20 22:26: POC Glucose 232 H 05/26/20 04:30: Sodium 137, Potassium 4.3, Chloride 106, Carbon Dioxide 21.0, Anion Gap 10, BUN 90 H, Creatinine 5.88 H, Estim Creat Clear Calc 13.09, Est GFR (MDRD) Af Amer 13 L, Est GFR (MDRD) Non-Af 11 L, BUN/Creatinine Ratio 15.3, Glucose 205 H, Calcium 8.5, Total Bilirubin 0.90, AST 20, ALT 27, Alkaline Phosphatase 78, Total Protein 7.5, Albumin 3.0 L, Globulin 4.5 H, Albumin/Globulin Ratio 0.7 L 05/26/20 04:30: Vitamin D 25-Hydroxy 64.0 05/26/20 04:30: PTH Intact 376.2 H 05/26/20 04:30: PT 31.2 H, INR 3.1 05/26/20 04:30: WBC 15.1 H, RBC 2.87 L, Hgb 8.1 L, Hct 25.8 L, MCV 89.9, MCH 28.2, MCHC 31.4 L, RDW Std Deviation 49.4 H, RDW Coeff of Kassandra 15.1 H, Plt Count 192, MPV 11.1, Immature Gran % (Auto) 0.700, Neut % (Auto) 83.8 H, Lymph % (Auto) 7.3 L, [place] % (Auto) 8.0, Eos % (Auto) 0.1, Baso % (Auto) 0.1, Absolute Neuts (auto) 12.7 H, Absolute Lymphs (auto) 1.11, Nucleated RBC % 0 05/26/20 04:30: Hemoglobin A1c Pending 05/26/20 04:30: Magnesium 2.2 04/06/21 06:34: POC Glucose 194 H Current Medications Acetaminophen (Acetaminophen 325 Mg Tablet) 650 mg PO Q6H PRN PRN PRN Reason: Pain Score 1-10/Temp > 100.7 F Last Admin: 05/25/20 16:40 Dose: 650 mg Documented by: Al Hydroxide/Mg Hydroxide (Mag Hydrox/Al Hydrox/Simeth 30 Ml Udc) 30 ml PO Q4H PRN PRN PRN Reason: DYSPEPSIA Last Admin: 05/23/20 21:00 Dose: 30 ml Documented by: Ascorbic Acid (Ascorbic Acid 500 Mg Tablet) 1,000 mg PO DAILY [facility] Last Admin: 05/25/20 09:20 Dose: 1,000 mg Documented by: Atorvastatin Calcium (Atorvastatin Calcium 40 Mg Tablet) 40 mg PO QHS [facility] Last Admin: 05/25/20 22:29 Dose: 40 mg Documented by: Buspirone HCl (Buspirone 5 Mg Tablet) 10 mg PO DAILY [facility] Last Admin: 05/25/20 09:21 Dose: 10 mg Documented by: Carvedilol (Carvedilol 12.5 Mg Tablet) 12.5 mg PO BID [facility] Last Admin: 05/25/20 22:30 Dose: 12.5 mg Documented by: Cholecalciferol (Cholecalciferol (Vit D3) 25 Mcg Tablet (1,000 Units)) 25 mcg PO DAILY [facility] Last Admin: 05/25/20 09:21 Dose: 25 mcg Documented by: Clopidogrel Bisulfate (Clopidogrel Bisulfate 75 Mg Tablet) 75 mg PO DAILY [facility] Last Admin: 05/25/20 05:54 Dose: 75 mg Documented by: Dextrose (Dextrose 50%-Water 25 Gm/50 Ml Disp.Syrin) 0 gm IV X1 PRN; Protocol PRN Reason: Hypoglycemia Dicyclomine HCl (Dicyclomine 10 Mg Capsule) 20 mg PO TIDAC [facility] Last Admin: 05/26/20 06:37 Dose: 20 mg Documented by: Furosemide (Furosemide 40 Mg/4 Ml Vial) 40 mg IV BID@1000,1800 [facility] Last Admin: 05/25/20 17:12 Dose: 40 mg Documented by: Gabapentin (Gabapentin 100 Mg Capsule) 100 mg PO BID [facility] Last Admin: 05/25/20 22:32 Dose: 100 mg Documented by: Glucagon (Glucagon 1 Mg/Ml Syringe) 1 mg IM .X1 PRN PRN Reason: Hypoglycemia Hydralazine HCl (Hydralazine 25 Mg Tablet) 25 mg PO TID [facility] Last Admin: 05/26/20 06:37 Dose: 25 mg Documented by: Insulin Glargine (Insulin Glargine 100 Units/Ml Pen) 12 units SC QHS [facility] Last Admin: 05/25/20 22:32 Dose: 12 u Documented by: Insulin Human Lispro (Insulin Lispro 100 Unit/Ml Insuln.Pen) 0 unit SC TIDAC [facility]; Protocol Last Admin: 05/26/20 06:37 Dose: 2 unit Documented by: Multi-Ingredient Cream (Mineral Oil/Petrolatum,White Jar) 1 applic TOPICAL BID PRN [facility]; Protocol Last Admin: 05/24/20 08:22 Dose: 1 applic Documented by: [facility]ivitamins ([facility]ivitamins,Therapeutic Tablet) [facility] Last Admin: 05/25/20 09:20 Dose: 1 tablet Documented by: Nifedipine (Nifedipine 90 Mg Tablet) 90 mg PO DAILY [facility] Last Admin: 05/25/20 09:20 Dose: 90 mg Documented by: Nitroglycerin (Nitroglycerin (Inpatient Use) 0.4 Mg Tab.Subl) 0.4 mg SL Q5M PRN PRN Reason: CARDIAC/CHEST PAIN Last Admin: 05/23/20 20:55 Dose: 0.4 mg Documented by: Pantoprazole Sodium (Pantoprazole Sodium 40 Mg Tablet) 40 mg PO DAILY [facility] Last Admin: 05/25/20 09:27 Dose: 40 mg Documented by: Pyridoxine HCl (Pyridoxine Hcl 100 Mg Tablet) 100 mg PO DAILY [facility] Last Admin: 05/25/20 09:27 Dose: 100 mg Documented by: Simethicone (Simethicone 80 Mg Tablet) 80 mg PO TIDPC [facility] Last Admin: 05/25/20 17:11 Dose: 80 mg Documented by: Sodium Bicarbonate (Sodium Bicarbonate 650 Mg Tablet) 650 mg PO BID [facility] Last Admin: 05/25/20 22:31 Dose: 650 mg Documented by: Sodium Chloride (0.9% Saline Lock 10 Ml Syringe) 10 - 40 ml IV UD PRN PRN Reason: SALINE FLUSH Last Admin: 05/25/20 17:12 Dose: 10 ml Documented by: Venlafaxine HCl (Venlafaxine Xr 150 Mg Capsule) 150 mg PO DAILY [facility] Last Admin: 05/25/20 09:20 Dose: 150 mg Documented by: Warfarin Sodium 5 mg/ Warfarin (Sodium 7.5 mg) 12.5 mg PO DAILY@1700 [facility] Last Admin: 05/24/20 16:12 Dose: 12.5 mg Documented by: Assessment/Plan All Active Problems Chronic 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 (Resolved) Ulcer of left lower extremity with fat layer exposed (Resolved) Chest pain (Acute) (HFpEF) heart failure with preserved ejection fraction (Acute) Atrial fibrillation (Acute) Diastolic CHF, acute (Acute) CHF (congestive heart failure) (Acute) I have been consulted in conjunction with Dr. Louise. He will independently evaluate this patient. Impression: Acute on chronic renal failure. In need of vascular dialysis access. Plan: I have discussed this patient with Dr. Louise. Dr. Louise will plan to perform a right possible left chest tunneled dialysis catheter placement. Patient's INR is currently 3.1 even with his Coumadin being held for 2 days. Patient will need to have a temporary catheter placed at bedside until patient's INR has decreased enough for surgery. Patient is also on 8 liters of oxygen and history of sleep apnea which will place him at a higher risk for surgical intervention with anesthesia. Will plan to place tunneled catheters closer to discharge date. Will plan for temporary catheter placement today. Procedure details, risks and benefits have been discussed with the patient. Patient has had the opportunity to ask and have questions answered. Patient verbally understands and agrees with the plan. Patient will continue his Plavix and hold his Coumadin for now. Thank you for allowing us to participate in this patient's care. Office Visits / Consults: [id number] IP Consult L3
[2020-05-26 09:08] LABS: Hemoglobin A1c 6.3 % (3.8-5.6)
[2020-05-26] MEDS: Pyridoxine HCl 100 MG Tablet PO (09:42)
[2020-05-26] MEDS: busPIRone 5 MG Tablet 10 MG PO (09:42)
[2020-05-26] MEDS: Multivitamins,Therapeutic Tablet 1 TABLET PO (09:42)
[2020-05-26] MEDS: Clopidogrel Bisulfate 75 MG Tablet PO (09:42)
[2020-05-26] MEDS: Pantoprazole Sodium 40 MG Tablet PO (09:43)
[2020-05-26] MEDS: Ascorbic Acid 500 MG Tablet 1000 MG PO (09:43)
[2020-05-26] MEDS: Sodium Bicarbonate 650 MG Tablet PO ×2 (09:43→22:49)
[2020-05-26] MEDS: NIFEdipine 90 MG Tablet PO (09:43)
[2020-05-26] MEDS: Gabapentin 100 MG Capsule PO ×2 (09:43→22:49)
[2020-05-26] MEDS: Venlafaxine XR 150 MG Capsule PO (09:44)
[2020-05-26] MEDS: Carvedilol 12.5 MG Tablet PO ×2 (09:44→22:49)
[2020-05-26] MEDS: Furosemide 40 MG/4 ML Vial IV (09:44)
[2020-05-26] MEDS: Cholecalciferol (VIT D3) 25 MCG TABLET (1,000 UNITS) PO (09:44)
--- NOTE | 2020-05-26 09:47 | PCM.CONS.P ---
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 Status: Chronic (5) Other specified peripheral vascular diseases Status: Chronic (6) Type 2 diabetes mellitus with diabetic polyneuropathy Status: Chronic (7) Hammer toe of left foot Status: Chronic (8) Delayed wound healing Status: Chronic (9) Anemia Status: Chronic (10) Atrial fibrillation Status: Acute (11) Diastolic CHF, acute Status: Acute (12) Depression Status: Chronic (13) Essential hypertension Status: Chronic (14) Morbid obesity Status: Chronic (15) History of DVT of lower extremity Status: Chronic History of Present Illness Date of Consult: 05/26/20 Reason for Consult: ESRD Requesting physician: [] Primary care physician: Dr. Yola Ng MD - History of Present Illness The patient is a 60 year old M who presented to the ED 05/23/2020 with chest pain, which has been going on for quite some time now. Apparently had a GI work-up at [facility] that was unremarkable, hospital has requested those records. Describes his chest pain as midsternal alleviated by belching, aggravated by exertion. Overall, pain seems to be getting more severe. Complains of mild to moderate shortness of breath with an increase in lower extremity edema. Upon presentation, he was hypoxic and anemic at 7.5. His creatinine in May 2019 was 3.29, currently 4.52. Plans were to do a stress test while in the hospital, however this was canceled. His last echocardiogram was in 2012, repeat showed EF of 60%, stage II diastolic dysfunction, moderate concentric LVH, RVSP 42 mmHg, mild pulmonary hypertension, and a small pericardial effusion. He did get a unit of blood, checking Hemoccult and iron studies. Due to his renal function, gabapentin was reduced to 100 mg twice daily. Glipizide was discontinued. He is anticoagulated on Coumadin due to his atrial fibrillation. Pulmonary was consulted for respiratory failure and progression of shortness of breath, required BiPAP. He has never had home oxygen but is likely he will be discharged with it. Patient has untreated ARRON. It was recommended he have a repeat sleep study and pulmonary function tests as an outpatient. Patient also had a renal ultrasound which showed nonobstructing left nephrolithiasis, bladder diverticulum, no obstructive uropathy or suspicious solid renal lesion. He was also seen by vascular for vein mapping and tunneled dialysis catheter placement once his INR returns to a safe level. He is currently on liters of oxygen supplementation. Remains afebrile, blood pressures have been improved. Still in A. fib but controlled rate. Patient did not have insurance, he worked full-time for 34 years, however was forced into prison due to his medical issues about a year ago. This is partially why he has not been following up with his payroll and benefits manager or wearing his CPAP due to lack of supplies. Now has [place]. He did have a prior kaiawhina kura ka[place] maori, however has not seen him in quite some time. Patient lives alone in mobile home with 4 steps into the home, typically independent with all ADLs. He still drives and does not have any transportation needs. He does not have a living will or HC POA. Uses [facility] in [place] for prescriptions. He is needing to establish with a new kaiawhina kura kaup[place] maori and payroll and benefits manager. Patient notes he quit smoking in 2000, has a [id number] history. Patient reports he never really felt short of breath, main reason he came into the hospital was for his belching and chest discomfort. States he knew he was going into heart failure because of the gurgling in his chest. Says he had no idea he had any other issues. Lungs are clear, belly is distended but soft. He has vascular changes to the lower extremities. Has a Cabrera with significant hematuria, known stone as above. He denies any current pain or shortness of breath. No nausea or vomiting. Patient Problems: Chronic Problems Equinus contracture of left ankle (Chronic) Edema of left lower leg due to peripheral venous insufficiency (Chronic) Other specified peripheral vascular diseases (Chronic) Type 2 diabetes mellitus with diabetic polyneuropathy (Chronic) Hammer toe of left foot (Chronic) Delayed wound healing (Chronic) Colonization status (Chronic) Anemia (Chronic) Acute exacerbation of CHF (congestive heart failure) (Chronic) [id number] kidney injury (Chronic) Depression (Chronic) Essential hypertension (Chronic) Morbid obesity (Chronic) Type 2 diabetes mellitus (Chronic) History of DVT of lower extremity (Chronic) Surgical History: noncontributory, - - carpal tunnel syndrom surgery Psychiatric History: No pertinent psych hx Home Medications: Ambulatory Orders Medication Instructions Recorded Ascorbic Acid [Vitamin C] 1,000 mg PO DAILY 12/02/16 Buspirone HCl 10 mg PO BID 12/02/16 Carvedilol [Coreg (Beta Federico)] 12.5 mg PO BID 12/02/16 Cholecalciferol (VIT D3) [Vitamin 1,000 unit PO DAILY 12/02/16 D3] Dicyclomine HCl 20 mg PO TID 12/02/16 Gabapentin [Neurontin] 600 mg PO BID 12/02/16 Multivitamin [Multiple Vitamins] 1 each PO DAILY 12/02/16 Nifedipine [Nifedipine ER] 90 mg PO QHS 12/02/16 Psyllium Husk (with Sugar) 3.4 gm PO PRN PRN 12/02/16 [Metamucil Packet] Venlafaxine XR [Effexor Xr] 150 mg PO DAILY 12/02/16 Warfarin [Coumadin] 12.5 mg PO DINNER 12/02/16 Atorvastatin Calcium 40 mg PO DAILY 05/23/20 Clopidogrel Bisulfate [Clopidogrel] 75 mg PO DAILY 05/23/20 Furosemide [Lasix] 40 mg PO DAILY 05/23/20 Glipizide [Glipizide ER] 5 mg PO DINNER 05/23/20 Insulin NPH Human Isophane 12 units SQ QHS 05/23/20 [Humulin N Kwikpen] Pyridoxine HCl (Vitamin B6) 100 mg PO DAILY 05/23/20 [Vitamin B-6] Sodium Bicarbonate 650 mg PO BID 05/23/20 hydrALAZINE [Apresoline] 25 mg PO TID 05/23/20 Allergies cephalexin Allergy (Verified 05/23/20 08:40) Hives Penicillins Allergy (Verified 05/23/20 08:40) Hives Maternal History Items: Heart Disease - Social History Lives: Alone Smoking Status: Former smoker - Quit 2000 Alcohol: Rare Drugs: None Code Status: Full Code Review of Systems Constitutional: Reports: Fatigue. Denies: Chills, Fever, Weight Change Eyes: Denies: Vision Change HEENT: Denies: Difficulty Swallowing, Head Aches, Sinus Congestion, Sinus Drainage, Sore Throat Cardiovascular: Reports: Chest Pain, Edema. Denies: Light Headedness, Orthopnea, Palpitations Respiratory: Reports: Cough - Improved. Denies: Hemoptysis, Shortness of Breath, Shortness of breath at rest, Shortness of breath upon exertion, Wheezing Gastrointestinal: Reports: Constipation, Dyspepsia. Denies: Abdominal Pain, Nausea, Vomiting Genitourinary: Reports: Hematuria. Denies: Dysuria Musculoskeletal: Denies: Joint Pain, Joint Tenderness Skin: Reports: Skin Changes. Denies: Rash, Wounds Neurological: Reports: Numbness, Tingling. Denies: Change in Speech, Focal weakness, Tremor Psychiatric: Denies: Anxiety, Depression, Homicidal Ideations, Suicidal Ideations Hematologic/ Lymphatic: Reports: Anemia, Hx of blood clot, Hx of blood transfusion. Denies: Easy Bruising, Easy Bleeding Physical Exam Subjective: Lying in bed, appears to be sleeping. Difficult to arouse and stay awake, he is not wearing PAP but it is in the room. He is 95% on 8 L of oxygen supplementation. General: Oriented x3, Cooperative, Lethargic HEENT: Atraumatic, Normocephalic Oral: Moist Mucosa Neck: Supple, Trachea Midline Lungs: Clear to auscultation, No rhonchi, No wheeze, No rales, Diminished - posterior bases Cardiovascular: Normal S1, Normal S2, No murmurs, Irregular Rate, - - Distant heart sounds secondary to body habitus Abdomen: Bowel Sounds Present, Soft, Non Tender, Distended, Obese Extremities: No edema, Capillary Refill Less than 3 Seconds Skin: No rashes Musculoskeletal: No Tenderness to Palpation of Joints or Extremities Neurological: Neuro grossly intact Psych/Mental Status: Normal Affect, Appropriate Objective: Vital Signs Temp Pulse Resp BP Pulse Ox 98.1 F 85 19 H 111/72 100 05/26/20 08:34 05/26/20 08:34 05/26/20 08:34 05/26/20 08:34 05/26/20 08:34 Oxygen Flow Rate (L/min) 8 Oxygen Delivery Method Nasal Cannula Weight: 150.7 kg Body Mass Index (BMI) 51.2 Intake and Output for Last 24 Hours 05/24/20 05/25/20 05/26/20 23:59 23:59 23:59 Intake Total 1628 / 1748 1455 / 1455 180 / 180 Output Total 600 / 1250 2550 / 2550 250 / 250 Balance 1028 / 498 -1095 / -1095 -70 / -70 Microbiology Past 72 Hours 04/05/21 04:42 SARS-CoV-2 Antigen (Rapid) - Final Mucosa - Nose Laboratory Tests Past 24 Hrs 05/25/20 05/25/20 05/25/20 10:10 10:10 15:25 WBC RBC Hgb Hct MCV MCH MCHC RDW Std Deviation RDW Coeff of Kassandra Plt Count MPV Immature Gran % (Auto) Neut % (Auto) Lymph % (Auto) [place] % (Auto) Eos % (Auto) Baso % (Auto) Absolute Neuts (auto) Absolute Lymphs (auto) Nucleated RBC % PT 30.5 H INR 3.0 Sodium Potassium Chloride Carbon Dioxide Anion Gap BUN Creatinine 5.3 H Estim Creat Clear Calc Est GFR (MDRD) Af Amer 14 L Est GFR (MDRD) Non-Af 12 L BUN/Creatinine Ratio Glucose Hemoglobin A1c Calcium Magnesium Total Bilirubin AST ALT Alkaline Phosphatase Total Protein Albumin Globulin Albumin/Globulin Ratio Vitamin D 25-Hydroxy PTH Intact Urine Color Urine Clarity Urine pH Ur Specific [place] Urine Protein Urine Glucose (UA) Urine Ketones Urine Occult Blood Urine Nitrite Urine Bilirubin Urine Urobilinogen Ur Leukocyte Esterase Urine RBC Urine WBC Ur Squamous Epith Cells Urine Bacteria Urine Mucus Urine Collection Time 24.0 24.0 Timed Urine Volume 1175 1175 Urine Creatinine 83.6 Creatinine Clearance 13 L Ur Total Protein 24 Hr 1145.6 H Urine Total Protein 97.5 H 05/25/20 05/26/20 05/26/20 16:00 04:30 04:30 WBC RBC Hgb Hct MCV MCH MCHC RDW Std Deviation RDW Coeff of Kassandra Plt Count MPV Immature Gran % (Auto) Neut % (Auto) Lymph % (Auto) [place] % (Auto) Eos % (Auto) Baso % (Auto) Absolute Neuts (auto) Absolute Lymphs (auto) Nucleated RBC % PT INR Sodium 137 Potassium 4.3 Chloride 106 Carbon Dioxide 21.0 Anion Gap 10 BUN 90 H Creatinine 5.88 H Estim Creat Clear Calc 13.09 Est GFR (MDRD) Af Amer 13 L Est GFR (MDRD) Non-Af 11 L BUN/Creatinine Ratio 15.3 Glucose 205 H Hemoglobin A1c Calcium 8.5 Magnesium Total Bilirubin 0.90 AST 20 ALT 27 Alkaline Phosphatase 78 Total Protein 7.5 Albumin 3.0 L Globulin 4.5 H Albumin/Globulin Ratio 0.7 L Vitamin D 25-Hydroxy 64.0 PTH Intact Urine Color Red Urine Clarity Cloudy Urine pH 5.0 Ur Specific [place] 1.015 Urine Protein 500 H Urine Glucose (UA) Normal Urine Ketones Negative Urine Occult Blood 250 H Urine Nitrite Positive H Urine Bilirubin Negative Urine Urobilinogen Normal Ur Leukocyte Esterase 100 H Urine RBC > 100 SEEN Urine WBC 0-5 SEEN Ur Squamous Epith Cells 0-5 SEEN Urine Bacteria 1+ Urine Mucus 0 SEEN Urine Collection Time Timed Urine Volume Urine Creatinine Creatinine Clearance Ur Total Protein 24 Hr Urine Total Protein 05/26/20 05/26/20 05/26/20 04:30 04:30 04:30 WBC 15.1 H RBC 2.87 L Hgb 8.1 L Hct 25.8 L MCV 89.9 MCH 28.2 MCHC 31.4 L RDW Std Deviation 49.4 H RDW Coeff of Kassandra 15.1 H Plt Count 192 MPV 11.1 Immature Gran % (Auto) 0.700 Neut % (Auto) 83.8 H Lymph % (Auto) 7.3 L [place] % (Auto) 8.0 Eos % (Auto) 0.1 Baso % (Auto) 0.1 Absolute Neuts (auto) 12.7 H Absolute Lymphs (auto) 1.11 Nucleated RBC % 0 PT 31.2 H INR 3.1 Sodium Potassium Chloride Carbon Dioxide Anion Gap BUN Creatinine Estim Creat Clear Calc Est GFR (MDRD) Af Amer Est GFR (MDRD) Non-Af BUN/Creatinine Ratio Glucose Hemoglobin A1c Calcium Magnesium Total Bilirubin AST ALT Alkaline Phosphatase Total Protein Albumin Globulin Albumin/Globulin Ratio Vitamin D 25-Hydroxy PTH Intact 376.2 H Urine Color Urine Clarity Urine pH Ur Specific [place] Urine Protein Urine Glucose (UA) Urine Ketones Urine Occult Blood Urine Nitrite Urine Bilirubin Urine Urobilinogen Ur Leukocyte Esterase Urine RBC Urine WBC Ur Squamous Epith Cells Urine Bacteria Urine Mucus Urine Collection Time Timed Urine Volume Urine Creatinine Creatinine Clearance Ur Total Protein 24 Hr Urine Total Protein 05/26/20 05/26/20 04:30 04:30 WBC RBC Hgb Hct MCV MCH MCHC RDW Std Deviation RDW Coeff of Kassandra Plt Count MPV Immature Gran % (Auto) Neut % (Auto) Lymph % (Auto) [place] % (Auto) Eos % (Auto) Baso % (Auto) Absolute Neuts (auto) Absolute Lymphs (auto) Nucleated RBC % PT INR Sodium Potassium Chloride Carbon Dioxide Anion Gap BUN Creatinine Estim Creat Clear Calc Est GFR (MDRD) Af Amer Est GFR (MDRD) Non-Af BUN/Creatinine Ratio Glucose Hemoglobin A1c 6.3 H Calcium Magnesium 2.2 Total Bilirubin AST ALT Alkaline Phosphatase Total Protein Albumin Globulin Albumin/Globulin Ratio Vitamin D 25-Hydroxy PTH Intact Urine Color Urine Clarity Urine pH Ur Specific [place] Urine Protein Urine Glucose (UA) Urine Ketones Urine Occult Blood Urine Nitrite Urine Bilirubin Urine Urobilinogen Ur Leukocyte Esterase Urine RBC Urine WBC Ur Squamous Epith Cells Urine Bacteria Urine Mucus Urine Collection Time Timed Urine Volume Urine Creatinine Creatinine Clearance Ur Total Protein 24 Hr Urine Total Protein Assessment/Plan All Active Problems Chronic 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 (Resolved) Ulcer of left lower extremity with fat layer exposed (Resolved) Chest pain (Acute) (HFpEF) heart failure with preserved ejection fraction (Acute) Atrial fibrillation (Acute) Diastolic CHF, acute (Acute) CHF (congestive heart failure) (Acute) 60-year-old male with progressive renal disease, now requiring temporary tunneled hemodialysis catheter, seen today for initial palliative care consultation related to his ESRD. Also has shortness of breath and congestive heart failure. 1. ESRD/debility: Has not had routine follow-ups for chronic diseases, now progressed to the point where he needs dialysis. Nephrology following while in hospital, he will need close follow-up at [place]. Lives alone but typically can get around independently. 2. Shortness of breath: Multifactorial given renal disease and diastolic CHF. He is now requiring 8 L of oxygen supplementation, will need to be discharged on O2. Will also need follow-up with pulmonary, including PFTs and PSG. Once he has work-up and on correct medications and Pap therapy, we will assist with controlling shortness of breath. 3. Chest pain: This is been a persistent issue for several months, GI work-up was apparently negative. His stress test was canceled. Unclear etiology, work-up in progress. 4. T2 DM with diabetic polyneuropathy/malnutrition/chronic lower extremity ulcer/equinus contracture left ankle/anemia/diastolic CHF/chronic A. fib/depression/hypertension/history of DVT/morbid obesity: Complicates overall care, management, recovery, and prognosis. His hemoglobin A1c was 6.3%. Currently on gabapentin for the neuropathy, dose was reduced secondary to renal function. This will be continued to be monitored, could consider other pharmacological management in the future. Thank you for the opportunity to participate in this patient's care, please do not hesitate to contact [facility] with any further questions or concerns. Palliative direct line is [phone]. We will have RN follow up approximately 3 days after discharge to home and will discuss palliative services further at that time. He is interested in services but wants to check with insurance as well. We will assist him in doing so prior to any visits as an outpatient with [facility]. RN can still go out and check on him as it is no charge. Greater than 50% of F2F visit dedicated to education and counseling of palliative care services, medications, comorbid conditions and potential assistance with management, and plan of care moving forward. I suspect he will need further extensive education and counseling of his comorbid conditions and how to manage them effectively. Start time: 937 End time: 0550
[2020-05-26 11:26] LABS: Bedside Glucose 186 mg/dL (70-110)
--- NOTE | 2020-05-26 12:24 | PCM.PN.PUL ---
Patient Problems: Active and Suspected Problems Malnutrition (Suspected) Chest pain (Acute) (HFpEF) heart failure with preserved ejection fraction (Acute) Atrial fibrillation (Acute) Diastolic CHF, acute (Acute) CHF (congestive heart failure) (Acute) Subjective: The patient was seen and examined at the bedside this morning. Events from the last 24 hours have been reviewed. The patient is currently afebrile, hemodynamically stable and maintaining appropriate oxygen saturations on 8 L/min via nasal cannula. The patient was transfused 3 units of packed red blood cells yesterday. However, hemoglobin has only increased to 8.1 g/dL this morning. INR is stable at 3.1. Creatinine continues to worsen. Objective: The patient's most recent lab work, culture data and imaging studies have all been personally reviewed. Surface echocardiogram revealed moderate concentric LVH with an ejection fraction of 60% and stage II diastolic dysfunction. Pulmonary artery systolic pressure was estimated to be 42 mmHg. Rapid coronavirus antigen testing was negative. Blood and urine cultures are pending. - Physical Exam Vitals/I&O's: Vital Signs Temp Pulse Resp BP Pulse Ox 98.1 F 85 19 H 111/72 100 05/26/20 08:34 05/26/20 08:34 05/26/20 08:34 05/26/20 08:34 05/26/20 08:34 Oxygen Flow Rate (L/min) 8 Oxygen Delivery Method Nasal Cannula Weight: 332 lb 3.786 oz Body Mass Index (BMI) 51.2 Intake and Output for Last 24 Hours 05/24/20 05/25/20 05/26/20 23:59 23:59 23:59 Intake Total 1628 / 1748 1455 / 1455 180 / 180 Output Total 600 / 1250 2550 / 2550 250 / 250 Balance 1028 / 498 -1095 / -1095 -70 / -70 General: Alert, No apparent distress, - - Somewhat somnolent this morning. HEENT: Atraumatic, Normocephalic Oral: No Gingival or Mucosal Lesions/ Ulcerations Neck: Supple, No Nodes, Trachea Midline Lungs: No rhonchi, No wheeze, No rales, Diminished Cardiovascular: Normal S1, Normal S2, Irregular Rate Abdomen: Bowel Sounds Present, Soft, Non Tender, Obese Extremities: No clubbing, No cyanosis, No edema Skin: Ulcer/ Wound Musculoskeletal: No Tenderness to Palpation of Joints or Extremities Lymphatic: No Cervical, Supraclavicular, or Inguinal Adenopathy Neurological: Neuro grossly intact Psych/Mental Status: Flat Affect Labs (Last 48 Hours) 05/23/20 05/23/20 05/23/20 12:10 12:10 12:10 WBC RBC Hgb Hct MCV MCH MCHC RDW Std Deviation RDW Coeff of Kassandra Plt Count MPV Immature Gran % (Auto) Neut % (Auto) Lymph % (Auto) [place] % (Auto) Eos % (Auto) Baso % (Auto) Absolute Neuts (auto) Absolute Lymphs (auto) Nucleated RBC % PT INR Sodium Potassium Chloride Carbon Dioxide Anion Gap BUN Creatinine Estim Creat Clear Calc Est GFR (MDRD) Af Amer Est GFR (MDRD) Non-Af BUN/Creatinine Ratio Glucose Hemoglobin A1c Lactic Acid Calcium Phosphorus Magnesium Total Bilirubin AST ALT Alkaline Phosphatase Total Protein Albumin Globulin Albumin/Globulin Ratio Vitamin D 25-Hydroxy PTH Intact Urine Color Urine Clarity Urine pH Ur Specific [place] Urine Protein Urine Glucose (UA) Urine Ketones Urine Occult Blood Urine Nitrite Urine Bilirubin Urine Urobilinogen Ur Leukocyte Esterase Urine RBC Urine WBC Ur Squamous Epith Cells Urine Bacteria Urine Mucus Urine Collection Time Timed Urine Volume Urine Creatinine Creatinine Clearance Ur Total Protein 24 Hr Urine Total Protein POC Glucose Crossmatch See Detail See Detail See Detail 05/24/20 05/24/20 05/24/20 12:23 16:07 21:52 WBC RBC Hgb Hct MCV MCH MCHC RDW Std Deviation RDW Coeff of Kassandra Plt Count MPV Immature Gran % (Auto) Neut % (Auto) Lymph % (Auto) [place] % (Auto) Eos % (Auto) Baso % (Auto) Absolute Neuts (auto) Absolute Lymphs (auto) Nucleated RBC % PT INR Sodium Potassium Chloride Carbon Dioxide Anion Gap BUN Creatinine Estim Creat Clear Calc Est GFR (MDRD) Af Amer Est GFR (MDRD) Non-Af BUN/Creatinine Ratio Glucose Hemoglobin A1c Lactic Acid Calcium Phosphorus Magnesium Total Bilirubin AST ALT Alkaline Phosphatase Total Protein Albumin Globulin Albumin/Globulin Ratio Vitamin D 25-Hydroxy PTH Intact Urine Color Urine Clarity Urine pH Ur Specific [place] Urine Protein Urine Glucose (UA) Urine Ketones Urine Occult Blood Urine Nitrite Urine Bilirubin Urine Urobilinogen Ur Leukocyte Esterase Urine RBC Urine WBC Ur Squamous Epith Cells Urine Bacteria Urine Mucus Urine Collection Time Timed Urine Volume Urine Creatinine Creatinine Clearance Ur Total Protein 24 Hr Urine Total Protein POC Glucose 207 H 215 H 178 H Crossmatch 05/25/20 05/25/20 05/25/20 04:54 04:54 04:54 WBC 11.3 H RBC 2.55 L Hgb 7.2 L Hct 23.0 L MCV 90.2 MCH 28.2 MCHC 31.3 L RDW Std Deviation 49.0 H RDW Coeff of Kassandra 15.0 H Plt Count 145 L MPV 10.7 Immature Gran % (Auto) 0.400 Neut % (Auto) 76.6 H Lymph % (Auto) 10.9 L [place] % (Auto) 11.3 H Eos % (Auto) 0.6 Baso % (Auto) 0.2 Absolute Neuts (auto) 8.7 H Absolute Lymphs (auto) 1.24 Nucleated RBC % 0 PT INR Sodium 140 Potassium 4.4 Chloride 106 Carbon Dioxide 23.0 Anion Gap BUN 78 H Creatinine 5.27 H Estim Creat Clear Calc 14.60 Est GFR (MDRD) Af Amer 14 L Est GFR (MDRD) Non-Af 12 L BUN/Creatinine Ratio 14.8 Glucose 222 H Hemoglobin A1c Lactic Acid 1.5 Calcium 8.1 L Phosphorus 3.7 Magnesium Total Bilirubin AST ALT Alkaline Phosphatase Total Protein Albumin 2.7 L Globulin Albumin/Globulin Ratio Vitamin D 25-Hydroxy PTH Intact Urine Color Urine Clarity Urine pH Ur Specific [place] Urine Protein Urine Glucose (UA) Urine Ketones Urine Occult Blood Urine Nitrite Urine Bilirubin Urine Urobilinogen Ur Leukocyte Esterase Urine RBC Urine WBC Ur Squamous Epith Cells Urine Bacteria Urine Mucus Urine Collection Time Timed Urine Volume Urine Creatinine Creatinine Clearance Ur Total Protein 24 Hr Urine Total Protein POC Glucose Crossmatch 05/25/20 05/25/20 05/25/20 05:57 10:10 10:10 WBC RBC Hgb Hct MCV MCH MCHC RDW Std Deviation RDW Coeff of Kassandra Plt Count MPV Immature Gran % (Auto) Neut % (Auto) Lymph % (Auto) [place] % (Auto) Eos % (Auto) Baso % (Auto) Absolute Neuts (auto) Absolute Lymphs (auto) Nucleated RBC % PT INR Sodium Potassium Chloride Carbon Dioxide Anion Gap BUN Creatinine 5.3 H Estim Creat Clear Calc Est GFR (MDRD) Af Amer 14 L Est GFR (MDRD) Non-Af 12 L BUN/Creatinine Ratio Glucose Hemoglobin A1c Lactic Acid Calcium Phosphorus Magnesium Total Bilirubin AST ALT Alkaline Phosphatase Total Protein Albumin Globulin Albumin/Globulin Ratio Vitamin D 25-Hydroxy PTH Intact Urine Color Urine Clarity Urine pH Ur Specific [place] Urine Protein Urine Glucose (UA) Urine Ketones Urine Occult Blood Urine Nitrite Urine Bilirubin Urine Urobilinogen Ur Leukocyte Esterase Urine RBC Urine WBC Ur Squamous Epith Cells Urine Bacteria Urine Mucus Urine Collection Time 24.0 24.0 Timed Urine Volume 1175 1175 Urine Creatinine 83.6 Creatinine Clearance 13 L Ur Total Protein 24 Hr 1145.6 H Urine Total Protein 97.5 H POC Glucose 199 H Crossmatch 05/25/20 05/25/20 05/25/20 11:15 15:25 16:00 WBC RBC Hgb Hct MCV MCH MCHC RDW Std Deviation RDW Coeff of Kassandra Plt Count MPV Immature Gran % (Auto) Neut % (Auto) Lymph % (Auto) [place] % (Auto) Eos % (Auto) Baso % (Auto) Absolute Neuts (auto) Absolute Lymphs (auto) Nucleated RBC % PT 30.5 H INR 3.0 Sodium Potassium Chloride Carbon Dioxide Anion Gap BUN Creatinine Estim Creat Clear Calc Est GFR (MDRD) Af Amer Est GFR (MDRD) Non-Af BUN/Creatinine Ratio Glucose Hemoglobin A1c Lactic Acid Calcium Phosphorus Magnesium Total Bilirubin AST ALT Alkaline Phosphatase Total Protein Albumin Globulin Albumin/Globulin Ratio Vitamin D 25-Hydroxy PTH Intact Urine Color Red Urine Clarity Cloudy Urine pH 5.0 Ur Specific [place] 1.015 Urine Protein 500 H Urine Glucose (UA) Normal Urine Ketones Negative Urine Occult Blood 250 H Urine Nitrite Positive H Urine Bilirubin Negative Urine Urobilinogen Normal Ur Leukocyte Esterase 100 H Urine RBC > 100 SEEN Urine WBC 0-5 SEEN Ur Squamous Epith Cells 0-5 SEEN Urine Bacteria 1+ Urine Mucus 0 SEEN Urine Collection Time Timed Urine Volume Urine Creatinine Creatinine Clearance Ur Total Protein 24 Hr Urine Total Protein POC Glucose 194 H Crossmatch 05/25/20 05/25/20 05/26/20 16:38 22:26 04:30 WBC RBC Hgb Hct MCV MCH MCHC RDW Std Deviation RDW Coeff of Kassandra Plt Count MPV Immature Gran % (Auto) Neut % (Auto) Lymph % (Auto) [place] % (Auto) Eos % (Auto) Baso % (Auto) Absolute Neuts (auto) Absolute Lymphs (auto) Nucleated RBC % PT INR Sodium 137 Potassium 4.3 Chloride 106 Carbon Dioxide 21.0 Anion Gap 10 BUN 90 H Creatinine 5.88 H Estim Creat Clear Calc 13.09 Est GFR (MDRD) Af Amer 13 L Est GFR (MDRD) Non-Af 11 L BUN/Creatinine Ratio 15.3 Glucose 205 H Hemoglobin A1c Lactic Acid Calcium 8.5 Phosphorus Magnesium Total Bilirubin 0.90 AST 20 ALT 27 Alkaline Phosphatase 78 Total Protein 7.5 Albumin 3.0 L Globulin 4.5 H Albumin/Globulin Ratio 0.7 L Vitamin D 25-Hydroxy PTH Intact Urine Color Urine Clarity Urine pH Ur Specific [place] Urine Protein Urine Glucose (UA) Urine Ketones Urine Occult Blood Urine Nitrite Urine Bilirubin Urine Urobilinogen Ur Leukocyte Esterase Urine RBC Urine WBC Ur Squamous Epith Cells Urine Bacteria Urine Mucus Urine Collection Time Timed Urine Volume Urine Creatinine Creatinine Clearance Ur Total Protein 24 Hr Urine Total Protein POC Glucose 191 H 232 H Crossmatch 05/26/20 05/26/20 05/26/20 04:30 04:30 04:30 WBC RBC Hgb Hct MCV MCH MCHC RDW Std Deviation RDW Coeff of Kassandra Plt Count MPV Immature Gran % (Auto) Neut % (Auto) Lymph % (Auto) [place] % (Auto) Eos % (Auto) Baso % (Auto) Absolute Neuts (auto) Absolute Lymphs (auto) Nucleated RBC % PT 31.2 H INR 3.1 Sodium Potassium Chloride Carbon Dioxide Anion Gap BUN Creatinine Estim Creat Clear Calc Est GFR (MDRD) Af Amer Est GFR (MDRD) Non-Af BUN/Creatinine Ratio Glucose Hemoglobin A1c Lactic Acid Calcium Phosphorus Magnesium Total Bilirubin AST ALT Alkaline Phosphatase Total Protein Albumin Globulin Albumin/Globulin Ratio Vitamin D 25-Hydroxy 64.0 PTH Intact 376.2 H Urine Color Urine Clarity Urine pH Ur Specific [place] Urine Protein Urine Glucose (UA) Urine Ketones Urine Occult Blood Urine Nitrite Urine Bilirubin Urine Urobilinogen Ur Leukocyte Esterase Urine RBC Urine WBC Ur Squamous Epith Cells Urine Bacteria Urine Mucus Urine Collection Time Timed Urine Volume Urine Creatinine Creatinine Clearance Ur Total Protein 24 Hr Urine Total Protein POC Glucose Crossmatch 05/26/20 05/26/20 05/26/20 04:30 04:30 04:30 WBC 15.1 H RBC 2.87 L Hgb 8.1 L Hct 25.8 L MCV 89.9 MCH 28.2 MCHC 31.4 L RDW Std Deviation 49.4 H RDW Coeff of Kassandra 15.1 H Plt Count 192 MPV 11.1 Immature Gran % (Auto) 0.700 Neut % (Auto) 83.8 H Lymph % (Auto) 7.3 L [place] % (Auto) 8.0 Eos % (Auto) 0.1 Baso % (Auto) 0.1 Absolute Neuts (auto) 12.7 H Absolute Lymphs (auto) 1.11 Nucleated RBC % 0 PT INR Sodium Potassium Chloride Carbon Dioxide Anion Gap BUN Creatinine Estim Creat Clear Calc Est GFR (MDRD) Af Amer Est GFR (MDRD) Non-Af BUN/Creatinine Ratio Glucose Hemoglobin A1c 6.3 H Lactic Acid Calcium Phosphorus Magnesium 2.2 Total Bilirubin AST ALT Alkaline Phosphatase Total Protein Albumin Globulin Albumin/Globulin Ratio Vitamin D 25-Hydroxy PTH Intact Urine Color Urine Clarity Urine pH Ur Specific [place] Urine Protein Urine Glucose (UA) Urine Ketones Urine Occult Blood Urine Nitrite Urine Bilirubin Urine Urobilinogen Ur Leukocyte Esterase Urine RBC Urine WBC Ur Squamous Epith Cells Urine Bacteria Urine Mucus Urine Collection Time Timed Urine Volume Urine Creatinine Creatinine Clearance Ur Total Protein 24 Hr Urine Total Protein POC Glucose Crossmatch 05/26/20 05/26/20 06:34 11:18 WBC RBC Hgb Hct MCV MCH MCHC RDW Std Deviation RDW Coeff of Kassandra Plt Count MPV Immature Gran % (Auto) Neut % (Auto) Lymph % (Auto) [place] % (Auto) Eos % (Auto) Baso % (Auto) Absolute Neuts (auto) Absolute Lymphs (auto) Nucleated RBC % PT INR Sodium Potassium Chloride Carbon Dioxide Anion Gap BUN Creatinine Estim Creat Clear Calc Est GFR (MDRD) Af Amer Est GFR (MDRD) Non-Af BUN/Creatinine Ratio Glucose Hemoglobin A1c Lactic Acid Calcium Phosphorus Magnesium Total Bilirubin AST ALT Alkaline Phosphatase Total Protein Albumin Globulin Albumin/Globulin Ratio Vitamin D 25-Hydroxy PTH Intact Urine Color Urine Clarity Urine pH Ur Specific [place] Urine Protein Urine Glucose (UA) Urine Ketones Urine Occult Blood Urine Nitrite Urine Bilirubin Urine Urobilinogen Ur Leukocyte Esterase Urine RBC Urine WBC Ur Squamous Epith Cells Urine Bacteria Urine Mucus Urine Collection Time Timed Urine Volume Urine Creatinine Creatinine Clearance Ur Total Protein 24 Hr Urine Total Protein POC Glucose 194 H 186 H Crossmatch Microbiology 05/25/20 16:00 Interface Orders Urine Culture - Preliminary Culture exhibits no growth. 05/25/20 04:42 Mucosa - Nose SARS-CoV-2 Antigen (Rapid) - Final Clinical Impression(s) from Imaging Studies Chest X-Ray 05/23/20 08:50 IMPRESSION: Cardiomegaly and pulmonary venous congestion. Superimposed mild infiltrate in right lung base is difficult to entirely exclude. Electronically Signed: Nate Bobby MD at 9:23 EDT Tel , Service support , Echocardiogram 05/23/20 11:42 Interpretation Summary Normal LV size. Moderate concentric left ventricular hypertrophy. Left ventricular systolic function is normal. The estimated ejection fraction is 60 %. Stage 2 diastolic dysfunction. Pulmonary artery systolic pressure is 42 mmHg. Mild pulmonary hypertension. Small pericardial effusion. There are no echocardiographic indications of cardiac tamponade. Ordering Physician: Immanuel eKn Referring Physician: Yola Ng Performed By: Brisa Franklin, JERRY, RVT Chest X-Ray 05/25/20 04:35 IMPRESSION: Worsening asymmetric vascular congestion and/or bilateral pneumonia. Stable cardiomegaly. Electronically Signed: Skyler Graham MD at 6:19 EDT , Service support , Renal Ultrasound 05/25/20 05:55 IMPRESSION: No obstructive uropathy or suspicious solid renal lesion Nonobstructing left nephrolithiasis Bladder diverticulum Electronically Signed: Giovanni Huston MD at 10:19 EDT , Service support , Saphenous Venous Mapping 05/25/20 07:59 Interpretation Summary Dimensions of bilateral cephalic and basilic veins bilaterally IV is noted in a potential fistula vein--the cephalic vein of the left wrist. Increased velocity flow bilateral brachial and radial arteries. Ordering Physician: Lillian Acharya Referring Physician: Yola Ng M.D. Performed By: Alyssa Mcgrath RVT ? Current Medications Acetaminophen (Acetaminophen 325 Mg Tablet) 650 mg PO Q6H PRN PRN PRN Reason: Pain Score 1-10/Temp > 100.7 F Last Admin: 05/25/20 16:40 Dose: 650 mg Documented by: Al Hydroxide/Mg Hydroxide (Mag Hydrox/Al Hydrox/Simeth 30 Ml Udc) 30 ml PO Q4H PRN PRN PRN Reason: DYSPEPSIA Last Admin: 05/23/20 21:00 Dose: 30 ml Documented by: Ascorbic Acid (Ascorbic Acid 500 Mg Tablet) 1,000 mg PO DAILY [facility] Last Admin: 05/26/20 09:43 Dose: 1,000 mg Documented by: Atorvastatin Calcium (Atorvastatin Calcium 40 Mg Tablet) 40 mg PO QHS [facility] Last Admin: 05/25/20 22:29 Dose: 40 mg Documented by: Buspirone HCl (Buspirone 5 Mg Tablet) 10 mg PO DAILY [facility] Last Admin: 05/26/20 09:42 Dose: 10 mg Documented by: Carvedilol (Carvedilol 12.5 Mg Tablet) 12.5 mg PO BID [facility] Last Admin: 05/26/20 09:44 Dose: 12.5 mg Documented by: Cholecalciferol (Cholecalciferol (Vit D3) 25 Mcg Tablet (1,000 Units)) 25 mcg PO DAILY [facility] Last Admin: 05/26/20 09:44 Dose: 25 mcg Documented by: Clopidogrel Bisulfate (Clopidogrel Bisulfate 75 Mg Tablet) 75 mg PO DAILY [facility] Last Admin: 05/26/20 09:42 Dose: 75 mg Documented by: Dextrose (Dextrose 50%-Water 25 Gm/50 Ml Disp.Syrin) 0 gm IV X1 PRN; Protocol PRN Reason: Hypoglycemia Dicyclomine HCl (Dicyclomine 10 Mg Capsule) 20 mg PO TIDAC [facility] Last Admin: 05/26/20 11:20 Dose: 20 mg Documented by: Furosemide (Furosemide 40 Mg Tablet) 40 mg PO BID@1000,1800 DELIA Gabapentin (Gabapentin 100 Mg Capsule) 100 mg PO BID [facility] Last Admin: 05/26/20 09:43 Dose: 100 mg Documented by: Glucagon (Glucagon 1 Mg/Ml Syringe) 1 mg IM .X1 PRN PRN Reason: Hypoglycemia Hydralazine HCl (Hydralazine 25 Mg Tablet) 25 mg PO TID [facility] Last Admin: 05/26/20 06:37 Dose: 25 mg Documented by: Ferric Sodium Gluconate Complex 125 mg/ Sodium Chloride 110 mls @ 110 mls/hr IV X1 ONE Stop: 05/26/20 12:44 Last Admin: 05/26/20 12:14 Dose: 110 mls/hr Documented by: Insulin Glargine (Insulin Glargine 100 Units/Ml Pen) 12 units SC QHS [facility] Last Admin: 05/25/20 22:32 Dose: 12 u Documented by: Insulin Human Lispro (Insulin Lispro 100 Unit/Ml Insuln.Pen) 0 unit SC TIDAC [facility]; Protocol Last Admin: 05/26/20 11:19 Dose: 1 unit Documented by: Multi-Ingredient Cream (Mineral Oil/Petrolatum,White Jar) 1 applic TOPICAL BID PRN [facility]; Protocol Last Admin: 05/24/20 08:22 Dose: 1 applic Documented by: Multivitamins (Multivitamins,Therapeutic Tablet) 1 tablet PO DAILYCM [facility] Last Admin: 05/26/20 09:42 Dose: 1 tablet Documented by: Nifedipine (Nifedipine 90 Mg Tablet) 90 mg PO DAILY [facility] Last Admin: 05/26/20 09:43 Dose: 90 mg Documented by: Nitroglycerin (Nitroglycerin (Inpatient Use) 0.4 Mg Tab.Subl) 0.4 mg SL Q5M PRN PRN Reason: CARDIAC/CHEST PAIN Last Admin: 05/23/20 20:55 Dose: 0.4 mg Documented by: Pantoprazole Sodium (Pantoprazole Sodium 40 Mg Tablet) 40 mg PO DAILY [facility] Last Admin: 05/26/20 09:43 Dose: 40 mg Documented by: Pyridoxine HCl (Pyridoxine Hcl 100 Mg Tablet) 100 mg PO DAILY [facility] Last Admin: 05/26/20 09:42 Dose: 100 mg Documented by: Simethicone (Simethicone 80 Mg Tablet) 80 mg PO TIDPC [facility] Last Admin: 05/26/20 12:14 Dose: 80 mg Documented by: Sodium Bicarbonate (Sodium Bicarbonate 650 Mg Tablet) 650 mg PO BID [facility] Last Admin: 05/26/20 09:43 Dose: 650 mg Documented by: Sodium Chloride (0.9% Saline Lock 10 Ml Syringe) 10 - 40 ml IV UD PRN PRN Reason: SALINE FLUSH Last Admin: 05/25/20 17:12 Dose: 10 ml Documented by: Venlafaxine HCl (Venlafaxine Xr 150 Mg Capsule) 150 mg PO DAILY [facility] Last Admin: 05/26/20 09:44 Dose: 150 mg Documented by: Warfarin Sodium 5 mg/ Warfarin (Sodium 7.5 mg) 12.5 mg PO DAILY@1700 [facility] Last Admin: 05/24/20 16:12 Dose: 12.5 mg Documented by: Medical Necessity - Tobacco Use Smoking Status: Former smoker - Quit 2000 Assessment/Plan All Active Problems Chronic 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 (Resolved) Ulcer of left lower extremity with fat layer exposed (Resolved) Chest pain (Acute) (HFpEF) heart failure with preserved ejection fraction (Acute) Atrial fibrillation (Acute) Diastolic CHF, acute (Acute) CHF (congestive heart failure) (Acute) RECOMMENDATIONS: 1. Continue diuretic therapy as tolerated by hemodynamics and renal function. 2. Anticipate need for dialysis in the near future. 3. Continue to wean supplemental oxygen to maintain saturations at or above 90%. 4. Continue to monitor H&H daily. Plan to transfuse if hemoglobin drops below 7 g/dL. 5. Continue empiric use of BiPAP while sleeping. 6. Start scheduled bronchodilator therapy while awake. 7. Encourage incentive spirometer use and mobilize patient as tolerated. 8. Recommend outpatient pulmonary follow-up so that baseline PFTs and polysomnogram can be completed. IMPRESSIONS: 1. Acute hypoxemic respiratory failure with concern for decompensated heart failure Clinical concern for acute decompensated heart failure based upon clinical presentation and radiographic findings. Plan to continue diuretic therapy as tolerated by hemodynamics and renal function. Encourage incentive spirometer use and mobilize patient as tolerated. Continue to wean supplemental oxygen to maintain saturations at or above 90%. Continue empiric BiPAP therapy on a nightly basis as tolerated. Anticipate future need for dialysis. Start scheduled bronchodilator therapy while awake, given prior smoking history. 2. Anemia Unclear etiology. No overt signs of blood loss. The patient previously had a hemoglobin of 11.3 g/dL 1 year ago. Although the patient was transfused 3 units of packed red blood cells, hemoglobin was only noted to be 8.1 g/dL this morning. Recommend continuing to monitor H&H daily. Transfuse if hemoglobin drops below 7 g/dL. Continue daily PPI therapy. 3. Acute on chronic kidney disease Possibly related to underlying medical renal disease coupled with overdiuresis. Nephrology is currently following with plans for potential dialysis in the very near future. 4. Obesity/diabetes/coronary artery disease/atrial fibrillation/untreated obstructive sleep apnea Complicates care, management, recovery and prognosis. As noted above, recommend empiric use of BiPAP therapy on a nightly basis. This note was generated with [employer] dictation software. It may contain incorrect words, spelling, and punctuation that were not noted in checking the note before signing. Inpatient E&M: [address] [facility]
--- NOTE | 2020-05-26 12:28 | PCM.PN.REN ---
Patient Problems: Active and Suspected Problems Malnutrition (Suspected) Chest pain (Acute) (HFpEF) heart failure with preserved ejection fraction (Acute) Atrial fibrillation (Acute) Diastolic CHF, acute (Acute) CHF (congestive heart failure) (Acute) Subjective: worsening renal fxn. Urine output fair. Chronic dyspnea, belching, chest discomfort. 24h urine CRCL 13cc/min. Will need permanent dialysis. Fever overnight, blood cx sent. INR still mildly elevated at 3.0 today. - Physical Exam Vitals/I&O's: Vital Signs Temp Pulse Resp BP Pulse Ox 98.1 F 85 19 H 111/72 100 05/26/20 08:34 05/26/20 08:34 05/26/20 08:34 05/26/20 08:34 05/26/20 08:34 Oxygen Flow Rate (L/min) 8 Oxygen Delivery Method Nasal Cannula Weight: 150.7 kg Body Mass Index (BMI) 51.2 Intake and Output for Last 24 Hours 05/24/20 05/25/20 05/26/20 23:59 23:59 23:59 Intake Total 1628 / 1748 1455 / 1455 180 / 180 Output Total 600 / 1250 2550 / 2550 250 / 250 Balance 1028 / 498 -1095 / -1095 -70 / -70 General: Alert, Oriented x3, Cooperative Lungs: Diminished Cardiovascular: Regular rate, No rub noted Abdomen: Bowel Sounds Present, Soft, Non Tender, Distended, Obese Extremities: Edema - mild Skin: - - skin hyperpigmentation Psych/Mental Status: Normal Affect, Appropriate, Alert and oriented to time, place, person, mood and affect Microbiology Past 72 Hours 05/25/20 16:00 Interface Orders Urine Culture - Preliminary Culture exhibits no growth. 05/25/20 04:42 Mucosa - Nose SARS-CoV-2 Antigen (Rapid) - Final Laboratory Results 05/25/20 15:25: PT 30.5 H, INR 3.0 05/25/20 16:00: Urine Color Red, Urine Clarity Cloudy, Urine pH 5.0, Ur Specific [place] 1.015, Urine Protein 500 H, Urine Glucose (UA) Normal, Urine Ketones Negative, Urine Occult Blood 250 H, Urine Nitrite Positive H, Urine Bilirubin Negative, Urine Urobilinogen Normal, Ur Leukocyte Esterase 100 H, Urine RBC > 100 SEEN, Urine WBC 0-5 SEEN, Ur Squamous Epith Cells 0-5 SEEN, Urine Bacteria 1+, Urine Mucus 0 SEEN 05/25/20 16:38: POC Glucose 191 H 05/25/20 22:26: POC Glucose 232 H 05/26/20 04:30: Sodium 137, Potassium 4.3, Chloride 106, Carbon Dioxide 21.0, Anion Gap 10, BUN 90 H, Creatinine 5.88 H, Estim Creat Clear Calc 13.09, Est GFR (MDRD) Af Amer 13 L, Est GFR (MDRD) Non-Af 11 L, BUN/Creatinine Ratio 15.3, Glucose 205 H, Calcium 8.5, Total Bilirubin 0.90, AST 20, ALT 27, Alkaline Phosphatase 78, Total Protein 7.5, Albumin 3.0 L, Globulin 4.5 H, Albumin/Globulin Ratio 0.7 L 05/26/20 04:30: Vitamin D 25-Hydroxy 64.0 05/26/20 04:30: PTH Intact 376.2 H 05/26/20 04:30: PT 31.2 H, INR 3.1 05/26/20 04:30: WBC 15.1 H, RBC 2.87 L, Hgb 8.1 L, Hct 25.8 L, MCV 89.9, MCH 28.2, MCHC 31.4 L, RDW Std Deviation 49.4 H, RDW Coeff of Kassandra 15.1 H, Plt Count 192, MPV 11.1, Immature Gran % (Auto) 0.700, Neut % (Auto) 83.8 H, Lymph % (Auto) 7.3 L, [place] % (Auto) 8.0, Eos % (Auto) 0.1, Baso % (Auto) 0.1, Absolute Neuts (auto) 12.7 H, Absolute Lymphs (auto) 1.11, Nucleated RBC % 0 05/26/20 04:30: Hemoglobin A1c 6.3 H 05/26/20 04:30: Magnesium 2.2 05/26/20 06:34: POC Glucose 194 H 05/26/20 11:18: POC Glucose 186 H Current Medications Acetaminophen (Acetaminophen 325 Mg Tablet) 650 mg PO Q6H PRN PRN PRN Reason: Pain Score 1-10/Temp > 100.7 F Last Admin: 05/25/20 16:40 Dose: 650 mg Documented by: Al Hydroxide/Mg Hydroxide (Mag Hydrox/Al Hydrox/Simeth 30 Ml Udc) 30 ml PO Q4H PRN PRN PRN Reason: DYSPEPSIA Last Admin: 05/23/20 21:00 Dose: 30 ml Documented by: Ascorbic Acid (Ascorbic Acid 500 Mg Tablet) 1,000 mg PO DAILY [facility] Last Admin: 05/26/20 09:43 Dose: 1,000 mg Documented by: Atorvastatin Calcium (Atorvastatin Calcium 40 Mg Tablet) 40 mg PO QHS [facility] Last Admin: 05/25/20 22:29 Dose: 40 mg Documented by: Buspirone HCl (Buspirone 5 Mg Tablet) 10 mg PO DAILY [facility] Last Admin: 05/26/20 09:42 Dose: 10 mg Documented by: Carvedilol (Carvedilol 12.5 Mg Tablet) 12.5 mg PO BID [facility] Last Admin: 05/26/20 09:44 Dose: 12.5 mg Documented by: Cholecalciferol (Cholecalciferol (Vit D3) 25 Mcg Tablet (1,000 Units)) 25 mcg PO DAILY [facility] Last Admin: 05/26/20 09:44 Dose: 25 mcg Documented by: Clopidogrel Bisulfate (Clopidogrel Bisulfate 75 Mg Tablet) 75 mg PO DAILY [facility] Last Admin: 05/26/20 09:42 Dose: 75 mg Documented by: Dextrose (Dextrose 50%-Water 25 Gm/50 Ml Disp.Syrin) 0 gm IV X1 PRN; Protocol PRN Reason: Hypoglycemia Dicyclomine HCl (Dicyclomine 10 Mg Capsule) 20 mg PO TIDAC [facility] Last Admin: 05/26/20 11:20 Dose: 20 mg Documented by: Furosemide (Furosemide 40 Mg Tablet) 40 mg PO BID@1000,1800 [facility] Gabapentin (Gabapentin 100 Mg Capsule) 100 mg PO BID [facility] Last Admin: 05/26/20 09:43 Dose: 100 mg Documented by: Glucagon (Glucagon 1 Mg/Ml Syringe) 1 mg IM .X1 PRN PRN Reason: Hypoglycemia Hydralazine HCl (Hydralazine 25 Mg Tablet) 25 mg PO TID [facility] Last Admin: 05/26/20 06:37 Dose: 25 mg Documented by: Ferric Sodium Gluconate Complex 125 mg/ Sodium Chloride 110 mls @ 110 mls/hr IV X1 ONE Stop: 05/26/20 12:44 Last Admin: 05/26/20 12:14 Dose: 110 mls/hr Documented by: Insulin Glargine (Insulin Glargine 100 Units/Ml Pen) 12 units SC QHS [facility] Last Admin: 05/25/20 22:32 Dose: 12 u Documented by: Insulin Human Lispro (Insulin Lispro 100 Unit/Ml Insuln.Pen) 0 unit SC TIDAC [facility]; Protocol Last Admin: 05/26/20 11:19 Dose: 1 unit Documented by: Multi-Ingredient Cream (Mineral Oil/Petrolatum,White Jar) 1 applic TOPICAL BID PRN [facility]; Protocol Last Admin: 05/24/20 08:22 Dose: 1 applic Documented by: Multivitamins (Multivitamins,Therapeutic Tablet) 1 tablet PO DAILYCM [facility] Last Admin: 05/26/20 09:42 Dose: 1 tablet Documented by: Nifedipine (Nifedipine 90 Mg Tablet) 90 mg PO DAILY [facility] Last Admin: 05/26/20 09:43 Dose: 90 mg Documented by: Nitroglycerin (Nitroglycerin (Inpatient Use) 0.4 Mg Tab.Subl) 0.4 mg SL Q5M PRN PRN Reason: CARDIAC/CHEST PAIN Last Admin: 05/23/20 20:55 Dose: 0.4 mg Documented by: Pantoprazole Sodium (Pantoprazole Sodium 40 Mg Tablet) 40 mg PO DAILY [facility] Last Admin: 05/26/20 09:43 Dose: 40 mg Documented by: Pyridoxine HCl (Pyridoxine Hcl 100 Mg Tablet) 100 mg PO DAILY [facility] Last Admin: 05/26/20 09:42 Dose: 100 mg Documented by: Simethicone (Simethicone 80 Mg Tablet) 80 mg PO TIDPC [facility] Last Admin: 05/26/20 12:14 Dose: 80 mg Documented by: Sodium Bicarbonate (Sodium Bicarbonate 650 Mg Tablet) 650 mg PO BID [facility] Last Admin: 05/26/20 09:43 Dose: 650 mg Documented by: Sodium Chloride (0.9% Saline Lock 10 Ml Syringe) 10 - 40 ml IV UD PRN PRN Reason: SALINE FLUSH Last Admin: 05/25/20 17:12 Dose: 10 ml Documented by: Venlafaxine HCl (Venlafaxine Xr 150 Mg Capsule) 150 mg PO DAILY [facility] Last Admin: 05/26/20 09:44 Dose: 150 mg Documented by: Warfarin Sodium 5 mg/ Warfarin (Sodium 7.5 mg) 12.5 mg PO DAILY@1700 [facility] Last Admin: 05/24/20 16:12 Dose: 12.5 mg Documented by: Medical Necessity - Tobacco Use Smoking Status: Former smoker - Quit 2000 Assessment/Plan All Active Problems Chronic 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 (Resolved) Ulcer of left lower extremity with fat layer exposed (Resolved) Chest pain (Acute) (HFpEF) heart failure with preserved ejection fraction (Acute) Atrial fibrillation (Acute) Diastolic CHF, acute (Acute) CHF (congestive heart failure) (Acute) 1. 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 Tunneled dialysis cahteter placement when medically stable. Leukocytosis with fever, await blood cx results. Vein mapping for AVF. Hold anticoagulation for elevated INR, possible access placement. Hold anticoagulation for dialysis catheter placement. May need FFP 2. Diastolic HF continue with diuretics. 3. 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 Hx pafib in SR 5. Hx DVT LLE hold anticoagulation 6. Iron def anemia iv iron load. 7. Morbid obesity 8. PTH 376. Start calcitriol.
--- NOTE | 2020-05-26 12:59 | PN_ITS ---
<Babar Matos - Last Filed: 05/26/20 12:59> Patient Problems: Active and Suspected Problems Malnutrition (Suspected) Chest pain (Acute) (HFpEF) heart failure with preserved ejection fraction (Acute) Atrial fibrillation (Acute) Diastolic CHF, acute (Acute) CHF (congestive heart failure) (Acute) Subjective: Patient is a 60-year-old male who is resting comfortably in bed sleeping, alert and oriented x3. She reports no change in his symptoms from yesterday, work of breathing switches back and forth between normal and labored. Vitals/I&O's: Vital Signs Temp Pulse Resp BP Pulse Ox 98.1 F 85 19 H 111/72 100 05/26/20 08:34 05/26/20 08:34 05/26/20 08:34 05/26/20 08:34 05/26/20 08:34 Oxygen Flow Rate (L/min) 8 Oxygen Delivery Method Nasal Cannula Weight: 332 lb 3.786 oz Body Mass Index (BMI) 51.2 Intake and Output for Last 24 Hours 05/24/20 05/25/20 05/26/20 23:59 23:59 23:59 Intake Total 1628 / 1748 1455 / 1455 180 / 180 Output Total 600 / 1250 2550 / 2550 250 / 250 Balance 1028 / 498 -1095 / -1095 -70 / -70 General: Alert, Oriented x3, Cooperative HEENT: Atraumatic, PERRLA, EOMI, Normocephalic Neck: Supple Lungs: Diminished, Rhonchi, Short of Breath Cardiovascular: Normal S1, Normal S2, Irregular Rate - With multiple PACs Abdomen: Bowel Sounds Present, Soft, Non Tender Extremities: No edema, Capillary Refill Less than 3 Seconds Skin: No rashes, No breakdown Musculoskeletal: No Tenderness to Palpation of Joints or Extremities Neurological: Cranial nerves II-XII grossly intact Psych/Mental Status: Normal Affect, Appropriate Microbiology Past 72 Hours 05/25/20 16:00 Interface Orders Urine Culture - Preliminary Culture exhibits no growth. 05/25/20 04:42 Mucosa - Nose SARS-CoV-2 Antigen (Rapid) - Final Laboratory Results 05/25/20 15:25: PT 30.5 H, INR 3.0 05/25/20 16:00: Urine Color Red, Urine Clarity Cloudy, Urine pH 5.0, Ur Specific Maybeury 1.015, Urine Protein 500 H, Urine Glucose (UA) Normal, Urine Ketones Negative, Urine Occult Blood 250 H, Urine Nitrite Positive H, Urine Bilirubin Negative, Urine Urobilinogen Normal, Ur Leukocyte Esterase 100 H, Urine RBC > 100 SEEN, Urine WBC 0-5 SEEN, Ur Squamous Epith Cells 0-5 SEEN, Urine Bacteria 1+, Urine Mucus 0 SEEN 05/25/20 16:38: POC Glucose 191 H 05/25/20 22:26: POC Glucose 232 H 05/26/20 04:30: Sodium 137, Potassium 4.3, Chloride 106, Carbon Dioxide 21.0, Anion Gap 10, BUN 90 H, Creatinine 5.88 H, Estim Creat Clear Calc 13.09, Est GFR (MDRD) Af Amer 13 L, Est GFR (MDRD) Non-Af 11 L, BUN/Creatinine Ratio 15.3, Glucose 205 H, Calcium 8.5, Total Bilirubin 0.90, AST 20, ALT 27, Alkaline Phosphatase 78, Total Protein 7.5, Albumin 3.0 L, Globulin 4.5 H, Albumin/Globulin Ratio 0.7 L 05/26/20 04:30: Vitamin D 25-Hydroxy 64.0 05/26/20 04:30: PTH Intact 376.2 H 05/26/20 04:30: PT 31.2 H, INR 3.1 05/26/20 04:30: WBC 15.1 H, RBC 2.87 L, Hgb 8.1 L, Hct 25.8 L, MCV 89.9, MCH 28.2, MCHC 31.4 L, RDW Std Deviation 49.4 H, RDW Coeff of Kassandra 15.1 H, Plt Count 192, MPV 11.1, Immature Gran % (Auto) 0.700, Neut % (Auto) 83.8 H, Lymph % (Auto) 7.3 L, [place] % (Auto) 8.0, Eos % (Auto) 0.1, Baso % (Auto) 0.1, Absolute Neuts (auto) 12.7 H, Absolute Lymphs (auto) 1.11, Nucleated RBC % 0 05/26/20 04:30: Hemoglobin A1c 6.3 H 05/26/20 04:30: Magnesium 2.2 05/26/20 06:34: POC Glucose 194 H 05/26/20 11:18: POC Glucose 186 H Current Medications Acetaminophen (Acetaminophen 325 Mg Tablet) 650 mg PO Q6H PRN PRN PRN Reason: Pain Score 1-10/Temp > 100.7 F Last Admin: 05/25/20 16:40 Dose: 650 mg Documented by: Al Hydroxide/Mg Hydroxide (Mag Hydrox/Al Hydrox/Simeth 30 Ml Udc) 30 ml PO Q4H PRN PRN PRN Reason: DYSPEPSIA Last Admin: 05/23/20 21:00 Dose: 30 ml Documented by: Albuterol/Ipratropium (Ipratropium/Albuterol Sulfate 3 Ml Ampul.Neb) 3 ml INHALATION Q6HWA.RT [facility] Ascorbic Acid (Ascorbic Acid 500 Mg Tablet) 1,000 mg PO DAILY [facility] Last Admin: 05/26/20 09:43 Dose: 1,000 mg Documented by: Atorvastatin Calcium (Atorvastatin Calcium 40 Mg Tablet) 40 mg PO QHS [facility] Last Admin: 05/25/20 22:29 Dose: 40 mg Documented by: Buspirone HCl (Buspirone 5 Mg Tablet) 10 mg PO DAILY [facility] Last Admin: 05/26/20 09:42 Dose: 10 mg Documented by: Calcitriol (Calcitriol 0.25 Mcg Capsule) 0.25 mcg PO DAILY [facility] Carvedilol (Carvedilol 12.5 Mg Tablet) 12.5 mg PO BID [facility] Last Admin: 05/26/20 09:44 Dose: 12.5 mg Documented by: Cholecalciferol (Cholecalciferol (Vit D3) 25 Mcg Tablet (1,000 Units)) 25 mcg PO DAILY [facility] Last Admin: 05/26/20 09:44 Dose: 25 mcg Documented by: Clopidogrel Bisulfate (Clopidogrel Bisulfate 75 Mg Tablet) 75 mg PO DAILY [facility] Last Admin: 05/26/20 09:42 Dose: 75 mg Documented by: Dextrose (Dextrose 50%-Water 25 Gm/50 Ml Disp.Syrin) 0 gm IV X1 PRN; Protocol PRN Reason: Hypoglycemia Dicyclomine HCl (Dicyclomine 10 Mg Capsule) 20 mg PO TIDAC [facility] Last Admin: 05/26/20 11:20 Dose: 20 mg Documented by: Furosemide (Furosemide 40 Mg Tablet) 40 mg PO BID@1000,1800 [facility] Gabapentin (Gabapentin 100 Mg Capsule) 100 mg PO BID [facility] Last Admin: 05/26/20 09:43 Dose: 100 mg Documented by: Glucagon (Glucagon 1 Mg/Ml Syringe) 1 mg IM .X1 PRN PRN Reason: Hypoglycemia Hydralazine HCl (Hydralazine 25 Mg Tablet) 25 mg PO TID [facility] Last Admin: 05/26/20 06:37 Dose: 25 mg Documented by: Insulin Glargine (Insulin Glargine 100 Units/Ml Pen) 12 units SC QHS [facility] Last Admin: 05/25/20 22:32 Dose: 12 u Documented by: Insulin Human Lispro (Insulin Lispro 100 Unit/Ml Insuln.Pen) 0 unit SC TIDAC [facility]; Protocol Last Admin: 05/26/20 11:19 Dose: 1 unit Documented by: Multi-Ingredient Cream (Mineral Oil/Petrolatum,White Jar) 1 applic TOPICAL BID PRN [facility]; Protocol Last Admin: 05/24/20 08:22 Dose: 1 applic Documented by: Multivitamins (Multivitamins,Therapeutic Tablet) 1 tablet PO DAILYCM [facility] Last Admin: 05/26/20 09:42 Dose: 1 tablet Documented by: Nifedipine (Nifedipine 90 Mg Tablet) 90 mg PO DAILY [facility] Last Admin: 05/26/20 09:43 Dose: 90 mg Documented by: Nitroglycerin (Nitroglycerin (Inpatient Use) 0.4 Mg Tab.Subl) 0.4 mg SL Q5M PRN PRN Reason: CARDIAC/CHEST PAIN Last Admin: 05/23/20 20:55 Dose: 0.4 mg Documented by: Pantoprazole Sodium (Pantoprazole Sodium 40 Mg Tablet) 40 mg PO DAILY [facility] Last Admin: 05/26/20 09:43 Dose: 40 mg Documented by: Pyridoxine HCl (Pyridoxine Hcl 100 Mg Tablet) 100 mg PO DAILY [facility] Last Admin: 05/26/20 09:42 Dose: 100 mg Documented by: Simethicone (Simethicone 80 Mg Tablet) 80 mg PO TIDPC [facility] Last Admin: 05/26/20 12:14 Dose: 80 mg Documented by: Sodium Bicarbonate (Sodium Bicarbonate 650 Mg Tablet) 650 mg PO BID [facility] Last Admin: 05/26/20 09:43 Dose: 650 mg Documented by: Sodium Chloride (0.9% Saline Lock 10 Ml Syringe) 10 - 40 ml IV UD PRN PRN Reason: SALINE FLUSH Last Admin: 05/25/20 17:12 Dose: 10 ml Documented by: Venlafaxine HCl (Venlafaxine Xr 150 Mg Capsule) 150 mg PO DAILY [facility] Last Admin: 05/26/20 09:44 Dose: 150 mg Documented by: Warfarin Sodium 5 mg/ Warfarin (Sodium 7.5 mg) 12.5 mg PO DAILY@1700 [facility] Last Admin: 05/24/20 16:12 Dose: 12.5 mg Documented by: Medical Necessity - Tobacco Use Smoking Status: Former smoker - Quit 2000 Assessment/Plan All Active Problems Chronic 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 (Resolved) Ulcer of left lower extremity with fat layer exposed (Resolved) Chest pain (Acute) (HFpEF) heart failure with preserved ejection fraction (Acute) Atrial fibrillation (Acute) Diastolic CHF, acute (Acute) CHF (congestive heart failure) (Acute) Patient is a 60-year-old male who presented to the ED on 05/23/2020 with a chief complaint of chest pain, shortness of breath and lower extremity edema. Patient was admitted for unspecified chest pain and acute CHF exacerbation. Ultrasound of the kidneys on 05/25/2020 revealed no obstructive uropathy or suspicious lesions, nonobstructive left nephrolithiasis and bladder diverticulum. Nephrology has decided that patient will need to be placed on permanent dialysis. Tunneled dialysis catheter placement pending lowering of his INR. INR currently 3.1, after 2 days of withholding warfarin. General surgery will reassess at a later date. 1) Acute heart failure with preserved ejection fraction exacerbation Assessment - Echocardiogram ordered for 05/25/2020 - Prior echocardiogram from 09/10/2012 demonstrated an EF of 55% - Not a candidate for SRINIVASA/ARB due to advanced CKD Plan -Continue hydralazine 2) Chest pain Assessment - Prior GI work-up unremarkable - Nuclear stress test take place on 05/25/2020 Plan - Check fasting lipid panel 3) Anemia Assessment - Considering symptomatic anemia in regards to dyspnea and chest pain - Hemoglobin 7.2 - No evidence of an acute bleed - Blood pressure not suggestive of hemodynamic compromise Plan - Continue to monitor CBC 4) CKD Stage IV-V Assessment - Estimated GFR of 11 - Creatinine 5. 8 8, up from yesterday - Estimated creatinine clearance 13.09 Plan - Not currently a candidate for tunneled dialysis catheter placement per general surgery - General surgery will reassess catheter placement at a later date 5) DM 2 Assessment -POC glucose 194 - Hemoglobin A1c 6.3 Plan - Continue to hold glipizide giving worsening kidney function 7) CAD Assessment -Already on Lipitor and Plavix Plan - Echocardiogram and stress test plan for 05/25/2020 - Continue clopidogrel and carvedilol 8) A-Fib Assessment - EKG demonstrates sinus rhythm with multiple PACs - Rate control on carvedilol - Holding warfarin, INR 3.1 Plan - Continue to hold warfarin due to supratherapeutic INR - Continue rate control with carvedilol DVT Prophylaxis - already on warfarin Patient seen by Babar Matos PA-C, under the supervision of Dr. Zamora. <Dalton Zamora - Last Filed: 05/26/20 15:41> Reason for Visit: Follow-up for CHF exacerbation acute hypoxic respiratory failure. CKD stage IV. Objective: Patient had low-grade fever, 101 Fahrenheit at 2 AM on 05/25 after that afebrile. Patient has gradual increasing leukocytosis currently 15.1 thousand with neutrophil 83%. INR 3.1. Albumin 3.0. Physical exam General: Alert, Oriented x3, Cooperative, morbid obesity BMI 50.4 kg/m? HEENT: Atraumatic, PERRLA, EOMI, Normocephalic Oral: No Gingival or Mucosal Lesions/ Ulcerations Neck: Supple, No JVD, Negative Carotid Bruits Lungs: Air entry diminished in bilateral lung bases. Bilateral coarse crepitations and rhonchi present. Severe hypoxia Cardiovascular: Irregular heart rate with multiple PACs. Normal S1, Normal S2, systolic murmur over LLSB and right second ICS Abdomen: Bowel Sounds Present, Soft, Non Tender, Non-Distended : No renal angle tenderness. No suprapubic tenderness. Extremities: Bilateral lower extremity edema around thigh and knees, Capillary Refill Less than 3 Seconds Skin: No rashes, No breakdown Musculoskeletal: No Tenderness to Palpation of Joints or Extremities Neurological: Cranial nerves II-XII grossly intact, Deep Tendon Reflexes 2+/4 and Symmetrical, Neuro grossly intact Psych/Mental Status: Normal Affect, Appropriate. Vitals/I&O's: Vital Signs Temp Pulse Resp BP Pulse Ox 97.9 F 85 21 H 130/74 H 97 05/26/20 14:20 05/26/20 15:18 05/26/20 15:18 05/26/20 15:09 05/26/20 14:20 Oxygen Flow Rate (L/min) 8 Oxygen Delivery Method Nasal Cannula Weight: 332 lb 3.786 oz Body Mass Index (BMI) 51.2 Intake and Output for Last 24 Hours 05/24/20 05/25/20 05/26/20 23:59 23:59 23:59 Intake Total 1628 / 1748 1455 / 1455 420 / 420 Output Total 600 / 1250 2550 / 2550 625 / 625 Balance 1028 / 498 -1095 / -1095 -205 / -205 Microbiology Past 72 Hours 05/25/20 16:00 Interface Orders Urine Culture - Preliminary Culture exhibits no growth. 05/25/20 04:42 Mucosa - Nose SARS-CoV-2 Antigen (Rapid) - Final Laboratory Results 05/25/20 15:25: PT 30.5 H, INR 3.0 05/25/20 16:00: Urine Color Red, Urine Clarity Cloudy, Urine pH 5.0, Ur Specific Maybeury 1.015, Urine Protein 500 H, Urine Glucose (UA) Normal, Urine Ketones Negative, Urine Occult Blood 250 H, Urine Nitrite Positive H, Urine Bilirubin Negative, Urine Urobilinogen Normal, Ur Leukocyte Esterase 100 H, Urine RBC > 100 SEEN, Urine WBC 0-5 SEEN, Ur Squamous Epith Cells 0-5 SEEN, Urine Bacteria 1+, Urine Mucus 0 SEEN 05/25/20 16:38: POC Glucose 191 H 05/25/20 22:26: POC Glucose 232 H 05/26/20 04:30: Sodium 137, Potassium 4.3, Chloride 106, Carbon Dioxide 21.0, Anion Gap 10, BUN 90 H, Creatinine 5.88 H, Estim Creat Clear Calc 13.09, Est GFR (MDRD) Af Amer 13 L, Est GFR (MDRD) Non-Af 11 L, BUN/Creatinine Ratio 15.3, Glucose 205 H, Calcium 8.5, Total Bilirubin 0.90, AST 20, ALT 27, Alkaline Phosphatase 78, Total Protein 7.5, Albumin 3.0 L, Globulin 4.5 H, Albumin/Globulin Ratio 0.7 L 05/26/20 04:30: Vitamin D 25-Hydroxy 64.0 05/26/20 04:30: PTH Intact 376.2 H 05/26/20 04:30: PT 31.2 H, INR 3.1 05/26/20 04:30: WBC 15.1 H, RBC 2.87 L, Hgb 8.1 L, Hct 25.8 L, MCV 89.9, MCH 28.2, MCHC 31.4 L, RDW Std Deviation 49.4 H, RDW Coeff of Kassandra 15.1 H, Plt Count 192, MPV 11.1, Immature Gran % (Auto) 0.700, Neut % (Auto) 83.8 H, Lymph % (Au to) 7.3 L, [place] % (Auto) 8.0, Eos % (Auto) 0.1, Baso % (Auto) 0.1, Absolute Neuts (auto) 12.7 H, Absolute Lymphs (auto) 1.11, Nucleated RBC % 0 05/26/20 04:30: Hemoglobin A1c 6.3 H 05/26/20 04:30: Magnesium 2.2 05/26/20 06:34: POC Glucose 194 H 05/26/20 11:18: POC Glucose 186 H Current Medications Acetaminophen (Acetaminophen 325 Mg Tablet) 650 mg PO Q6H PRN PRN PRN Reason: Pain Score 1-10/Temp > 100.7 F Last Admin: 05/25/20 16:40 Dose: 650 mg Documented by: Al Hydroxide/Mg Hydroxide (Mag Hydrox/Al Hydrox/Simeth 30 Ml Udc) 30 ml PO Q4H PRN PRN PRN Reason: DYSPEPSIA Last Admin: 05/23/20 21:00 Dose: 30 ml Documented by: Albuterol/Ipratropium (Ipratropium/Albuterol Sulfate 3 Ml Ampul.Neb) 3 ml INHALATION Q6HWA.RT [facility] Last Admin: 05/26/20 15:02 Dose: 3 ml Documented by: Ascorbic Acid (Ascorbic Acid 500 Mg Tablet) 1,000 mg PO DAILY [facility] Last Admin: 05/26/20 09:43 Dose: 1,000 mg Documented by: Atorvastatin Calcium (Atorvastatin Calcium 40 Mg Tablet) 40 mg PO QHS [facility] Last Admin: 05/25/20 22:29 Dose: 40 mg Documented by: Buspirone HCl (Buspirone 5 Mg Tablet) 10 mg PO DAILY [facility] Last Admin: 05/26/20 09:42 Dose: 10 mg Documented by: Calcitriol (Calcitriol 0.25 Mcg Capsule) 0.25 mcg PO DAILY [facility] Carvedilol (Carvedilol 12.5 Mg Tablet) 12.5 mg PO BID [facility] Last Admin: 05/26/20 09:44 Dose: 12.5 mg Documented by: Cholecalciferol (Cholecalciferol (Vit D3) 25 Mcg Tablet (1,000 Units)) 25 mcg PO DAILY [facility] Last Admin: 05/26/20 09:44 Dose: 25 mcg Documented by: Clopidogrel Bisulfate (Clopidogrel Bisulfate 75 Mg Tablet) 75 mg PO DAILY [facility] Last Admin: 05/26/20 09:42 Dose: 75 mg Documented by: Dextrose (Dextrose 50%-Water 25 Gm/50 Ml Disp.Syrin) 0 gm IV X1 PRN; Protocol PRN Reason: Hypoglycemia Dicyclomine HCl (Dicyclomine 10 Mg Capsule) 20 mg PO TIDAC [facility] Last Admin: 05/26/20 11:20 Dose: 20 mg Documented by: Furosemide (Furosemide 40 Mg Tablet) 40 mg PO BID@1000,1800 [facility] Gabapentin (Gabapentin 100 Mg Capsule) 100 mg PO BID [facility] Last Admin: 05/26/20 09:43 Dose: 100 mg Documented by: Glucagon (Glucagon 1 Mg/Ml Syringe) 1 mg IM .X1 PRN PRN Reason: Hypoglycemia Hydralazine HCl (Hydralazine 25 Mg Tablet) 25 mg PO TID [facility] Last Admin: 05/26/20 15:09 Dose: 25 mg Documented by: Insulin Glargine (Insulin Glargine 100 Units/Ml Pen) 12 units SC QHS [facility] Last Admin: 05/25/20 22:32 Dose: 12 u Documented by: Insulin Human Lispro (Insulin Lispro 100 Unit/Ml Insuln.Pen) 0 unit SC TIDAC [facility]; Protocol Last Admin: 05/26/20 11:19 Dose: 1 unit Documented by: Multi-Ingredient Cream (Mineral Oil/Petrolatum,White Jar) 1 applic TOPICAL BID PRN [facility]; Protocol Last Admin: 05/24/20 08:22 Dose: 1 applic Documented by: Multivitamins (Multivitamins,Therapeutic Tablet) 1 tablet PO DAILYCM [facility] Last Admin: 05/26/20 09:42 Dose: 1 tablet Documented by: Nifedipine (Nifedipine 90 Mg Tablet) 90 mg PO DAILY [facility] Last Admin: 05/26/20 09:43 Dose: 90 mg Documented by: Nitroglycerin (Nitroglycerin (Inpatient Use) 0.4 Mg Tab.Subl) 0.4 mg SL Q5M PRN PRN Reason: CARDIAC/CHEST PAIN Last Admin: 05/23/20 20:55 Dose: 0.4 mg Documented by: Pantoprazole Sodium (Pantoprazole Sodium 40 Mg Tablet) 40 mg PO DAILY [facility] Last Admin: 05/26/20 09:43 Dose: 40 mg Documented by: Pyridoxine HCl (Pyridoxine Hcl 100 Mg Tablet) 100 mg PO DAILY [facility] Last Admin: 05/26/20 09:42 Dose: 100 mg Documented by: Simethicone (Simethicone 80 Mg Tablet) 80 mg PO TIDPC [facility] Last Admin: 05/26/20 12:14 Dose: 80 mg Documented by: Sodium Bicarbonate (Sodium Bicarbonate 650 Mg Tablet) 650 mg PO BID [facility] Last Admin: 05/26/20 09:43 Dose: 650 mg Documented by: Sodium Chloride (0.9% Saline Lock 10 Ml Syringe) 10 - 40 ml IV UD PRN PRN Reason: SALINE FLUSH Last Admin: 05/25/20 17:12 Dose: 10 ml Documented by: Venlafaxine HCl (Venlafaxine Xr 150 Mg Capsule) 150 mg PO DAILY [facility] Last Admin: 05/26/20 09:44 Dose: 150 mg Documented by: Warfarin Sodium 5 mg/ Warfarin (Sodium 7.5 mg) 12.5 mg PO DAILY@1700 [facility] Last Admin: 05/24/20 16:12 Dose: 12.5 mg Documented by: STROKE Vital Signs/Narrative: Vital Signs Temp Pulse Resp BP Pulse Ox 05/26/20 15:18 85 21 H 05/26/20 15:09 79 130/74 H 05/26/20 14:53 79 05/26/20 14:20 97.9 F 78 18 130/74 H 97 Assessment/Plan This patient was seen in conjunction with ELVIS Paredes. I have independently interviewed and examined the patient and reviewed pertinent history, examination findings, laboratory and plan of management. I have reviewed the note and agree with the documented findings with the few additional points. In brief, patient is a 60-year-old question gentleman with multiple comorbidities admitted with acute hypoxic respiratory failure secondary to acute on chronic diastolic heart failure. Patient alternatively on high flow oxygen in the morning and BiPAP at night. On IV diuretic. Previous echo of 2017 shows EF 55% with moderate concentric LVH, LA moderately enlarged suggestive of diastolic heart failure/HFpEF. Repeat echo at this time as mentioned below, EF 60% mainly diastolic heart failure. Mild pulmonary hypertension Interpretation Summary Normal LV size. Moderate concentric left ventricular hypertrophy. Left ventricular systolic function is normal. The estimated ejection fraction is 60 %. Stage 2 diastolic dysfunction. Pulmonary artery systolic pressure is 42 mmHg. Acute kidney injury on CKD stage 5: Due to diuretics, heart failure versus progressive diabetic nephropathy: Being followed by multigraph operator. 24-hour timed urine collection shows creatinine kinase 13 mL/min suggestive of CKD stage V. Renal sonogram shows no obstructive uropathy or suspicious solid renal lesion. Discussed with the multigraph operator and surgeon regarding dialysis catheter access. As per multigraph operator, it was decided to hold on tunneled dialysis catheter as patient having leukocytosis, patient making about 2.5 L urine output and INR is 3.1. Monitor the labs. Diabetes mellitus type 2. Paroxysmal A. fib. Patient converted to sinus rhythm as per EKG of today showed sinus rhythm with PAC similar to nurse monitoring. Previous EKG May 23 shows A. fib at 133 bpm. Other comorbidities include severe anemia due to chronic kidney disease, coronary artery disease, history of DVT depression and morbid obesity: 1 unit of PRBC transfused 4/5, total 3 units. I have discussed my assessment with ELVIS Paredes and orders have been rev iewed. Total time of the visit including total time spent in counseling or coordination of care, (more than 50% of the total time, spent in obtaining medical information from nurses and other ancillary care providers,explaining to the patient about labs, imaging, diagnosis and management), discussion with multigraph operator and server support technician, review of labs and imaging is 30 minutes. Inpatient E&M: 36996 Subs Hosp L2
[2020-05-26] MEDS: Ipratropium/Albuterol Sulfate 3 ML AMPUL.NEB INHALATION ×2 (15:02→19:16)
--- NOTE | 2020-05-26 15:29 | NURSING ---
Student nurse documentation reviewed.
[2020-05-26] MEDS: Furosemide 40 MG Tablet PO (16:36)
[2020-05-26 17:15] LABS: Bedside Glucose 314 mg/dL (70-110)
--- NOTE | 2020-05-26 19:46 | CPS ---
Patient refused BiPAP for tonight
[2020-05-26] MEDS: Atorvastatin Calcium 40 MG Tablet PO (22:49)
[2020-05-26 23:21] LABS: Bedside Glucose 206 mg/dL (70-110)
[2020-05-27] VITALS (17 sets, daily range): BP systolic 133–175; BP diastolic 63–91; PULSE 73–100; RESP 19–22; TEMP 36.7–37.1; O2SAT 2–98
[2020-05-27 05:20] LABS: Absolute Lymphocyte Count 1.83 X10^3/uL (0.83-4.51); Basophil# 0.02 X10^3/uL; Basophil% 0.2 % (0-1); Eosinophil# 0.22 X10^3/uL; Hemoglobin 7.5 g/dL (13.0-16.5); Lymphocyte # 1.83 X10^3/ul (4.0); Lymphocyte % 16.7 % (19-41); Mean Corp Hgb Conc 31.3 g/dL (32-36); Mean Corpuscular Hgb 28.1 pg (27.0-32.0); Mean Corpuscular Volume 89.9 fL (80-94); Mean Platelet Vol. 10.4 fl (6.2-12.0); Monocyte# 0.83 X10^3/uL; Monocyte% 7.6 % (0-10); NRBC Flagged by Analyzer 0 % (0-5); Neutrophil # 8.03 X10^3/uL (2.7-7.7); Neutrophil % 73.2 % (47-70); Platelet Count 193 K/mm3 (150-450); RBC Distribution Width CV 15.3 % (11.6-14.6); RBC Distribution Width SD 50.4 fl (35.1-43.9); Red Blood Count 2.67 M/mm3 (4.6-6.2)
[2020-05-27 05:29] LABS: International Normalized Ratio 3.6; Prothrombin Time (Protime)PT. 34.9 SECONDS (11.7-14.9)
[2020-05-27 05:47] LABS: Albumin, Serum 2.8 g/dL (3.2-5.0); Anion Gap 12 (5-15); BUN 100 mg/dL (7-18); BUN/Creat Ratio 16.3 RATIO (10-20); Calcium,Total 8.2 mg/dL (8.5-10.1); Chloride 108 mmol/L (98-107); Creatinine, Serum 6.15 mg/dL (0.70-1.30); EST Glomerular Filtration Rate 10 mL/min (>60); Est Glom Filt Rate - Afr Amer 12 mL/min (>60); Estimated Creatinine Clearance 12.51 ml/min; Glucose 153 mg/dL (74-106); Phosphorus 5.2 mg/dL (2.5-4.9); Sodium Level 141 mmol/L (136-145)
[2020-05-27] MEDS: hydrALAZINE 25 MG Tablet PO ×2 (06:43→14:07)
[2020-05-27] MEDS: Dicyclomine 10 MG Capsule 20 MG PO ×2 (06:43→10:43)
[2020-05-27 07:10] LABS: Bedside Glucose 139 mg/dL (70-110)
[2020-05-27] MEDS: Ipratropium/Albuterol Sulfate 3 ML AMPUL.NEB INHALATION ×2 (07:10→13:39)
--- NOTE | 2020-05-27 07:33 | PN.SURG_ITS ---
Patient Problems: Active and Suspected Problems Malnutrition (Suspected) Chest pain (Acute) (HFpEF) heart failure with preserved ejection fraction (Acute) Atrial fibrillation (Acute) Diastolic CHF, acute (Acute) CHF (congestive heart failure) (Acute) Subjective: The patient is not complaining of shortness of breath this morning - Physical Exam Vitals/I&O's: Vital Signs Temp Pulse Resp BP Pulse Ox 98.4 F 79 21 H 137/76 H 93 05/27/20 05:26 05/27/20 07:10 05/27/20 07:10 05/27/20 05:26 05/27/20 07:10 Oxygen Flow Rate (L/min) 8 Oxygen Delivery Method Nasal Cannula Weight: 335 lb 12.224 oz Body Mass Index (BMI) 51.2 Intake and Output for Last 24 Hours 05/25/20 05/26/20 05/27/20 23:59 23:59 23:59 Intake Total 1455 / 1455 1130 / 1130 360 / 360 Output Total 2550 / 2550 625 / 625 Balance -1095 / -1095 505 / 505 360 / 360 General: Alert, Oriented x3 Cardiovascular: Regular rate, - - A. fib Abdomen: Soft, Non Tender, Non-Distended Microbiology Past 72 Hours 05/25/20 04:54 Blood Culture (Wb) - Anticubital Right Blood Culture - Preliminary No growth in 48 hours. 05/25/20 16:00 Interface Orders Urine Culture - Preliminary Culture exhibits no growth. 05/25/20 04:42 Mucosa - Nose SARS-CoV-2 Antigen (Rapid) - Final Laboratory Results 05/26/20 04:30: Vitamin D 25-Hydroxy 64.0 05/26/20 04:30: PTH Intact 376.2 H 05/26/20 04:30: Hemoglobin A1c 6.3 H 05/26/20 11:18: POC Glucose 186 H 05/26/20 16:34: POC Glucose 314 H 05/26/20 22:49: POC Glucose 206 H 05/27/20 05:14: Sodium 141, Potassium 4.0, Chloride 108 H, Carbon Dioxide 21.0, Anion Gap 12, BUN 100 H, Creatinine 6.15 H, Estim Creat Clear Calc 12.51, Est GFR (MDRD) Af Amer 12 L, Est GFR (MDRD) Non-Af 10 L, BUN/Creatinine Ratio 16.3, Glucose 153 H, Calcium 8.2 L, Phosphorus 5.2 H, Albumin 2.8 L 05/27/20 05:14: PT 34.9 H, INR 3.6 05/27/20 05:14: WBC 11.0, RBC 2.67 L, Hgb 7.5 L, Hct 24.0 L, MCV 89.9, MCH 28.1, MCHC 31.3 L, RDW Std Deviation 50.4 H, RDW Coeff of Kassandra 15.3 H, Plt Count 193, MPV 10.4, Immature Gran % (Auto) 0.300, Neut % (Auto) 73.2 H, Lymph % (Auto) 16.7 L, Kidder % (Auto) 7.6, Eos % (Auto) 2.0, Baso % (Auto) 0.2, Absolute Neuts (auto) 8.0 H, Absolute Lymphs (auto) 1.83, Nucleated RBC % 0 05/27/20 06:41: POC Glucose 139 H Current Medications Acetaminophen (Acetaminophen 325 Mg Tablet) 650 mg PO Q6H PRN PRN PRN Reason: Pain Score 1-10/Temp > 100.7 F Last Admin: 05/25/20 16:40 Dose: 650 mg Documented by: Al Hydroxide/Mg Hydroxide (Mag Hydrox/Al Hydrox/Simeth 30 Ml Udc) 30 ml PO Q4H PRN PRN PRN Reason: DYSPEPSIA Last Admin: 05/23/20 21:00 Dose: 30 ml Documented by: Albuterol/Ipratropium (Ipratropium/Albuterol Sulfate 3 Ml Ampul.Neb) 3 ml INHALATION Q6HWA.RT [facility] Last Admin: 05/27/20 07:10 Dose: 3 ml Documented by: Ascorbic Acid (Ascorbic Acid 500 Mg Tablet) 1,000 mg PO DAILY [facility] Last Admin: 05/26/20 09:43 Dose: 1,000 mg Documented by: Atorvastatin Calcium (Atorvastatin Calcium 40 Mg Tablet) 40 mg PO QHS [facility] Last Admin: 05/26/20 22:49 Dose: 40 mg Documented by: Buspirone HCl (Buspirone 5 Mg Tablet) 10 mg PO DAILY [facility] Last Admin: 05/26/20 09:42 Dose: 10 mg Documented by: Calcitriol (Calcitriol 0.25 Mcg Capsule) 0.25 mcg PO DAILY [facility] Carvedilol (Carvedilol 12.5 Mg Tablet) 12.5 mg PO BID [facility] Last Admin: 05/26/20 22:49 Dose: 12.5 mg Documented by: Cholecalciferol (Cholecalciferol (Vit D3) 25 Mcg Tablet (1,000 Units)) 25 mcg PO DAILY [facility] Last Admin: 05/26/20 09:44 Dose: 25 mcg Documented by: Clopidogrel Bisulfate (Clopidogrel Bisulfate 75 Mg Tablet) 75 mg PO DAILY [facility] Last Admin: 05/26/20 09:42 Dose: 75 mg Documented by: Dextrose (Dextrose 50%-Water 25 Gm/50 Ml Disp.Syrin) 0 gm IV X1 PRN; Protocol PRN Reason: Hypoglycemia Dicyclomine HCl (Dicyclomine 10 Mg Capsule) 20 mg PO TIDAC [facility] Last Admin: 05/27/20 06:43 Dose: 20 mg Documented by: Furosemide (Furosemide 40 Mg Tablet) 40 mg PO BID@1000,1800 [facility] Last Admin: 05/26/20 16:36 Dose: 40 mg Documented by: Gabapentin (Gabapentin 100 Mg Capsule) 100 mg PO BID [facility] Last Admin: 05/26/20 22:49 Dose: 100 mg Documented by: Glucagon (Glucagon 1 Mg/Ml Syringe) 1 mg IM .X1 PRN PRN Reason: Hypoglycemia Hydralazine HCl (Hydralazine 25 Mg Tablet) 25 mg PO TID [facility] Last Admin: 05/27/20 06:43 Dose: 25 mg Documented by: Phytonadione 5 mg/ Sodium (Chloride) 50.5 mls @ 150 mls/hr IV X1 ONE Stop: 05/27/20 07:50 Insulin Glargine (Insulin Glargine 100 Units/Ml Pen) [facility] Last Admin: 05/26/20 22:50 Dose: 12 u Documented by: Insulin Human Lispro (Insulin Lispro 100 Unit/Ml Insuln.Pen) 0 unit SC TIDAC [facility]; Protocol Last Admin: 05/27/20 06:44 Dose: Not Given Documented by: Multi-Ingredient Cream (Mineral Oil/Petrolatum,White Jar) 1 applic TOPICAL BID PRN [facility]; Protocol Last Admin: 05/24/20 08:22 Dose: 1 applic Documented by: Multivitamins (Multivitamins,Therapeutic Tablet) 1 tablet PO DAILYCM [facility] Last Admin: 05/26/20 09:42 Dose: 1 tablet Documented by: Nifedipine (Nifedipine 90 Mg Tablet) 90 mg PO DAILY [facility] Last Admin: 05/26/20 09:43 Dose: 90 mg Documented by: Nitroglycerin (Nitroglycerin (Inpatient Use) 0.4 Mg Tab.Subl) 0.4 mg SL Q5M PRN PRN Reason: CARDIAC/CHEST PAIN Last Admin: 05/23/20 20:55 Dose: 0.4 mg Documented by: Pantoprazole Sodium (Pantoprazole Sodium 40 Mg Tablet) 40 mg PO DAILY [facility] Last Admin: 05/26/20 09:43 Dose: 40 mg Documented by: Pyridoxine HCl (Pyridoxine Hcl 100 Mg Tablet) 100 mg PO DAILY [facility] Last Admin: 05/26/20 09:42 Dose: 100 mg Documented by: Simethicone (Simethicone 80 Mg Tablet) 80 mg PO TIDPC [facility] Last Admin: 05/26/20 16:36 Dose: 80 mg Documented by: Sodium Bicarbonate (Sodium Bicarbonate 650 Mg Tablet) 650 mg PO BID [facility] Last Admin: 05/26/20 22:49 Dose: 650 mg Documented by: Sodium Chloride (0.9% Saline Lock 10 Ml Syringe) 10 - 40 ml IV UD PRN PRN Reason: SALINE FLUSH Last Admin: 05/25/20 17:12 Dose: 10 ml Documented by: Venlafaxine HCl (Venlafaxine Xr 150 Mg Capsule) 150 mg PO DAILY [facility] Last Admin: 05/26/20 09:44 Dose: 150 mg Documented by: Medical Necessity - Tobacco Use Smoking Status: Former smoker - Quit 2000 Assessment/Plan All Active Problems Chronic 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 (Resolved) Ulcer of left lower extremity with fat layer exposed (Resolved) Chest pain (Acute) (HFpEF) heart failure with preserved ejection fraction (Acute) Atrial fibrillation (Acute) Diastolic CHF, acute (Acute) CHF (congestive heart failure) (Acute) 60-year-old male with need for dialysis access 1. Patient is white count is coming down but his INR is still trending upward despite not having his Coumadin for 2 days. His INR is 3.6 today. The patient's creatinine is also rising and he had minimal urine output yesterday. I discussed tunneled dialysis catheter with the patient in detail as well as the risks of bleeding, infection, pneumothorax, line infection or DVT. I also explained the increased risk of bleeding if we were to proceed with an elevated INR. I discussed the case with the hospitalist service and will discuss with nephrology. If the patient absolutely needs dialysis starting today I think it would be less risky to place a temporary nontunneled dialysis catheter and correct his volume status as well as INR before placing a tunneled dialysis catheter before discharge. Niles Louise MD Pager: [facility] [address] [place] [address] [address] [place] [address] Office:
--- NOTE | 2020-05-27 08:00 | PCM.PN.PUL ---
Patient Problems: Active and Suspected Problems Malnutrition (Suspected) Chest pain (Acute) (HFpEF) heart failure with preserved ejection fraction (Acute) Atrial fibrillation (Acute) Diastolic CHF, acute (Acute) CHF (congestive heart failure) (Acute) Subjective: The patient was seen and examined at the bedside this morning. Events from the last 24 hours have been reviewed. The patient is currently afebrile, hemodynamically stable and maintaining appropriate oxygen saturations on 6 L/min via nasal cannula. The patient refused to utilize BiPAP last night. Hemoglobin is down this morning to 7.5 g/dL. INR has increased to 3.6. The patient does not currently have an incentive spirometer in his room. He denies any shortness of breath this morning. Objective: The patient's most recent lab work, culture data and imaging studies have all been personally reviewed. Surface echocardiogram revealed moderate concentric LVH with an ejection fraction of 60% and stage II diastolic dysfunction. Pulmonary artery systolic pressure was estimated to be 42 mmHg. Rapid coronavirus antigen testing was negative. Blood and urine cultures are pending. - Physical Exam Vitals/I&O's: Vital Signs Temp Pulse Resp BP Pulse Ox 98.4 F 79 21 H 137/76 H 93 05/27/20 05:26 05/27/20 07:10 05/27/20 07:10 05/27/20 05:26 05/27/20 07:10 Oxygen Flow Rate (L/min) 8 Oxygen Delivery Method Nasal Cannula Weight: 335 lb 12.224 oz Body Mass Index (BMI) 51.2 Intake and Output for Last 24 Hours 05/25/20 05/26/20 05/27/20 23:59 23:59 23:59 Intake Total 1455 / 1455 1130 / 1130 360 / 360 Output Total 2550 / 2550 625 / 625 Balance -1095 / -1095 505 / 505 360 / 360 General: Alert, Cooperative, No apparent distress HEENT: Atraumatic, Normocephalic Oral: No Gingival or Mucosal Lesions/ Ulcerations Neck: Supple, No Nodes, Trachea Midline Lungs: No rhonchi, No wheeze, No rales, Diminished Cardiovascular: Normal S1, Normal S2, No murmurs, Irregular Rate Abdomen: Bowel Sounds Present, Soft, Non Tender, Obese Extremities: No clubbing, No cyanosis, No edema Skin: No breakdown Musculoskeletal: No Tenderness to Palpation of Joints or Extremities Lymphatic: No Cervical, Supraclavicular, or Inguinal Adenopathy Neurological: Cranial nerves II-XII grossly intact, Neuro grossly intact Psych/Mental Status: Alert and oriented to time, place, person, mood and affect Labs (Last 48 Hours) 05/23/20 05/25/20 05/25/20 12:10 10:10 10:10 WBC RBC Hgb Hct MCV MCH MCHC RDW Std Deviation RDW Coeff of Kassandra Plt Count MPV Immature Gran % (Auto) Neut % (Auto) Lymph % (Auto) [place] % (Auto) Eos % (Auto) Baso % (Auto) Absolute Neuts (auto) Absolute Lymphs (auto) Nucleated RBC % PT INR Sodium Potassium Chloride Carbon Dioxide Anion Gap BUN Creatinine 5.3 H Estim Creat Clear Calc Est GFR (MDRD) Af Amer 14 L Est GFR (MDRD) Non-Af 12 L BUN/Creatinine Ratio Glucose Hemoglobin A1c Calcium Phosphorus Magnesium Total Bilirubin AST ALT Alkaline Phosphatase Total Protein Albumin Globulin Albumin/Globulin Ratio Vitamin D 25-Hydroxy PTH Intact Urine Color Urine Clarity Urine pH Ur Specific [place] Urine Protein Urine Glucose (UA) Urine Ketones Urine Occult Blood Urine Nitrite Urine Bilirubin Urine Urobilinogen Ur Leukocyte Esterase Urine RBC Urine WBC Ur Squamous Epith Cells Urine Bacteria Urine Mucus Urine Collection Time 24.0 24.0 Timed Urine Volume 1175 1175 Urine Creatinine 83.6 Creatinine Clearance 13 L Ur Total Protein 24 Hr 1145.6 H Urine Total Protein 97.5 H POC Glucose Crossmatch See Detail 05/25/20 05/25/20 05/25/20 11:15 15:25 16:00 WBC RBC Hgb Hct MCV MCH MCHC RDW Std Deviation RDW Coeff of Kassandra Plt Count MPV Immature Gran % (Auto) Neut % (Auto) Lymph % (Auto) [place] % (Auto) Eos % (Auto) Baso % (Auto) Absolute Neuts (auto) Absolute Lymphs (auto) Nucleated RBC % PT 30.5 H INR 3.0 Sodium Potassium Chloride Carbon Dioxide Anion Gap BUN Creatinine Estim Creat Clear Calc Est GFR (MDRD) Af Amer Est GFR (MDRD) Non-Af BUN/Creatinine Ratio Glucose Hemoglobin A1c Calcium Phosphorus Magnesium Total Bilirubin AST ALT Alkaline Phosphatase Total Protein Albumin Globulin Albumin/Globulin Ratio Vitamin D 25-Hydroxy PTH Intact Urine Color Red Urine Clarity Cloudy Urine pH 5.0 Ur Specific [place] 1.015 Urine Protein 500 H Urine Glucose (UA) Normal Urine Ketones Negative Urine Occult Blood 250 H Urine Nitrite Positive H Urine Bilirubin Negative Urine Urobilinogen Normal Ur Leukocyte Esterase 100 H Urine RBC > 100 SEEN Urine WBC 0-5 SEEN Ur Squamous Epith Cells 0-5 SEEN Urine Bacteria 1+ Urine Mucus 0 SEEN Urine Collection Time Timed Urine Volume Urine Creatinine Creatinine Clearance Ur Total Protein 24 Hr Urine Total Protein POC Glucose 194 H Crossmatch 05/25/20 05/25/20 05/26/20 16:38 22:26 04:30 WBC RBC Hgb Hct MCV MCH MCHC RDW Std Deviation RDW Coeff of Kassandra Plt Count MPV Immature Gran % (Auto) Neut % (Auto) Lymph % (Auto) [place] % (Auto) Eos % (Auto) Baso % (Auto) Absolute Neuts (auto) Absolute Lymphs (auto) Nucleated RBC % PT INR Sodium 137 Potassium 4.3 Chloride 106 Carbon Dioxide 21.0 Anion Gap 10 BUN 90 H Creatinine 5.88 H Estim Creat Clear Calc 13.09 Est GFR (MDRD) Af Amer 13 L Est GFR (MDRD) Non-Af 11 L BUN/Creatinine Ratio 15.3 Glucose 205 H Hemoglobin A1c Calcium 8.5 Phosphorus Magnesium Total Bilirubin 0.90 AST 20 ALT 27 Alkaline Phosphatase 78 Total Protein 7.5 Albumin 3.0 L Globulin 4.5 H Albumin/Globulin Ratio 0.7 L Vitamin D 25-Hydroxy PTH Intact Urine Color Urine Clarity Urine pH Ur Specific [place] Urine Protein Urine Glucose (UA) Urine Ketones Urine Occult Blood Urine Nitrite Urine Bilirubin Urine Urobilinogen Ur Leukocyte Esterase Urine RBC Urine WBC Ur Squamous Epith Cells Urine Bacteria Urine Mucus Urine Collection Time Timed Urine Volume Urine Creatinine Creatinine Clearance Ur Total Protein 24 Hr Urine Total Protein POC Glucose 191 H 232 H Crossmatch 05/26/20 05/26/20 05/26/20 04:30 04:30 04:30 WBC RBC Hgb Hct MCV MCH MCHC RDW Std Deviation RDW Coeff of Kassandra Plt Count MPV Immature Gran % (Auto) Neut % (Auto) Lymph % (Auto) [place] % (Auto) Eos % (Auto) Baso % (Auto) Absolute Neuts (auto) Absolute Lymphs (auto) Nucleated RBC % PT 31.2 H INR 3.1 Sodium Potassium Chloride Carbon Dioxide Anion Gap BUN Creatinine Estim Creat Clear Calc Est GFR (MDRD) Af Amer Est GFR (MDRD) Non-Af BUN/Creatinine Ratio Glucose Hemoglobin A1c Calcium Phosphorus Magnesium Total Bilirubin AST ALT Alkaline Phosphatase Total Protein Albumin Globulin Albumin/Globulin Ratio Vitamin D 25-Hydroxy 64.0 PTH Intact 376.2 H Urine Color Urine Clarity Urine pH Ur Specific [place] Urine Protein Urine Glucose (UA) Urine Ketones Urine Occult Blood Urine Nitrite Urine Bilirubin Urine Urobilinogen Ur Leukocyte Esterase Urine RBC Urine WBC Ur Squamous Epith Cells Urine Bacteria Urine Mucus Urine Collection Time Timed Urine Volume Urine Creatinine Creatinine Clearance Ur Total Protein 24 Hr Urine Total Protein POC Glucose Crossmatch 05/26/20 05/26/20 05/26/20 04:30 04:30 04:30 WBC 15.1 H RBC 2.87 L Hgb 8.1 L Hct 25.8 L MCV 89.9 MCH 28.2 MCHC 31.4 L RDW Std Deviation 49.4 H RDW Coeff of Kassandra 15.1 H Plt Count 192 MPV 11.1 Immature Gran % (Auto) 0.700 Neut % (Auto) 83.8 H Lymph % (Auto) 7.3 L [place] % (Auto) 8.0 Eos % (Auto) 0.1 Baso % (Auto) 0.1 Absolute Neuts (auto) 12.7 H Absolute Lymphs (auto) 1.11 Nucleated RBC % 0 PT INR Sodium Potassium Chloride Carbon Dioxide Anion Gap BUN Creatinine Estim Creat Clear Calc Est GFR (MDRD) Af Amer Est GFR (MDRD) Non-Af BUN/Creatinine Ratio Glucose Hemoglobin A1c 6.3 H Calcium Phosphorus Magnesium 2.2 Total Bilirubin AST ALT Alkaline Phosphatase Total Protein Albumin Globulin Albumin/Globulin Ratio Vitamin D 25-Hydroxy PTH Intact Urine Color Urine Clarity Urine pH Ur Specific [place] Urine Protein Urine Glucose (UA) Urine Ketones Urine Occult Blood Urine Nitrite Urine Bilirubin Urine Urobilinogen Ur Leukocyte Esterase Urine RBC Urine WBC Ur Squamous Epith Cells Urine Bacteria Urine Mucus Urine Collection Time Timed Urine Volume Urine Creatinine Creatinine Clearance Ur Total Protein 24 Hr Urine Total Protein POC Glucose Crossmatch 05/26/20 05/26/20 05/26/20 06:34 11:18 16:34 WBC RBC Hgb Hct MCV MCH MCHC RDW Std Deviation RDW Coeff of Kassandra Plt Count MPV Immature Gran % (Auto) Neut % (Auto) Lymph % (Auto) [place] % (Auto) Eos % (Auto) Baso % (Auto) Absolute Neuts (auto) Absolute Lymphs (auto) Nucleated RBC % PT INR Sodium Potassium Chloride Carbon Dioxide Anion Gap BUN Creatinine Estim Creat Clear Calc Est GFR (MDRD) Af Amer Est GFR (MDRD) Non-Af BUN/Creatinine Ratio Glucose Hemoglobin A1c Calcium Phosphorus Magnesium Total Bilirubin AST ALT Alkaline Phosphatase Total Protein Albumin Globulin Albumin/Globulin Ratio Vitamin D 25-Hydroxy PTH Intact Urine Color Urine Clarity Urine pH Ur Specific [place] Urine Protein Urine Glucose (UA) Urine Ketones Urine Occult Blood Urine Nitrite Urine Bilirubin Urine Urobilinogen Ur Leukocyte Esterase Urine RBC Urine WBC Ur Squamous Epith Cells Urine Bacteria Urine Mucus Urine Collection Time Timed Urine Volume Urine Creatinine Creatinine Clearance Ur Total Protein 24 Hr Urine Total Protein POC Glucose 194 H 186 H 314 H Crossmatch 05/26/20 05/27/20 05/27/20 22:49 05:14 05:14 WBC RBC Hgb Hct MCV MCH MCHC RDW Std Deviation RDW Coeff of Kassandra Plt Count MPV Immature Gran % (Auto) Neut % (Auto) Lymph % (Auto) [place] % (Auto) Eos % (Auto) Baso % (Auto) Absolute Neuts (auto) Absolute Lymphs (auto) Nucleated RBC % PT 34.9 H INR 3.6 Sodium 141 Potassium 4.0 Chloride 108 H Carbon Dioxide 21.0 Anion Gap 12 BUN 100 H Creatinine 6.15 H Estim Creat Clear Calc 12.51 Est GFR (MDRD) Af Amer 12 L Est GFR (MDRD) Non-Af 10 L BUN/Creatinine Ratio 16.3 Glucose 153 H Hemoglobin A1c Calcium 8.2 L Phosphorus 5.2 H Magnesium Total Bilirubin AST ALT Alkaline Phosphatase Total Protein Albumin 2.8 L Globulin Albumin/Globulin Ratio Vitamin D 25-Hydroxy PTH Intact Urine Color Urine Clarity Urine pH Ur Specific [place] Urine Protein Urine Glucose (UA) Urine Ketones Urine Occult Blood Urine Nitrite Urine Bilirubin Urine Urobilinogen Ur Leukocyte Esterase Urine RBC Urine WBC Ur Squamous Epith Cells Urine Bacteria Urine Mucus Urine Collection Time Timed Urine Volume Urine Creatinine Creatinine Clearance Ur Total Protein 24 Hr Urine Total Protein POC Glucose 206 H Crossmatch 05/27/20 05/27/20 05:14 06:41 WBC 11.0 RBC 2.67 L Hgb 7.5 L Hct 24.0 L MCV 89.9 MCH 28.1 MCHC 31.3 L RDW Std Deviation 50.4 H RDW Coeff of Kassandra 15.3 H Plt Count 193 MPV 10.4 Immature Gran % (Auto) 0.300 Neut % (Auto) 73.2 H Lymph % (Auto) 16.7 L [place] % (Auto) 7.6 Eos % (Auto) 2.0 Baso % (Auto) 0.2 Absolute Neuts (auto) 8.0 H Absolute Lymphs (auto) 1.83 Nucleated RBC % 0 PT INR Sodium Potassium Chloride Carbon Dioxide Anion Gap BUN Creatinine Estim Creat Clear Calc Est GFR (MDRD) Af Amer Est GFR (MDRD) Non-Af BUN/Creatinine Ratio Glucose Hemoglobin A1c Calcium Phosphorus Magnesium Total Bilirubin AST ALT Alkaline Phosphatase Total Protein Albumin Globulin Albumin/Globulin Ratio Vitamin D 25-Hydroxy PTH Intact Urine Color Urine Clarity Urine pH Ur Specific [place] Urine Protein Urine Glucose (UA) Urine Ketones Urine Occult Blood Urine Nitrite Urine Bilirubin Urine Urobilinogen Ur Leukocyte Esterase Urine RBC Urine WBC Ur Squamous Epith Cells Urine Bacteria Urine Mucus Urine Collection Time Timed Urine Volume Urine Creatinine Creatinine Clearance Ur Total Protein 24 Hr Urine Total Protein POC Glucose 139 H Crossmatch Microbiology 05/25/20 05:00 Blood Culture (Wb) - Right Forearm Blood Culture - Preliminary No growth in 48 hours. 05/25/20 04:54 Blood Culture (Wb) - Anticubital Right Blood Culture - Preliminary No growth in 48 hours. 05/25/20 16:00 Interface Orders Urine Culture - Preliminary Culture exhibits no growth. 05/25/20 04:42 Mucosa - Nose SARS-CoV-2 Antigen (Rapid) - Final Clinical Impression(s) from Imaging Studies Chest X-Ray 05/23/20 08:50 IMPRESSION: Cardiomegaly and pulmonary venous congestion. Superimposed mild infiltrate in right lung base is difficult to entirely exclude. Electronically Signed: Nate Bobby MD at 9:23 EDT Tel , Service support , Echocardiogram 05/23/20 11:42 Interpretation Summary Normal LV size. Moderate concentric left ventricular hypertrophy. Left ventricular systolic function is normal. The estimated ejection fraction is 60 %. Stage 2 diastolic dysfunction. Pulmonary artery systolic pressure is 42 mmHg. Mild pulmonary hypertension. Small pericardial effusion. There are no echocardiographic indications of cardiac tamponade. Ordering Physician: Immanuel Ken Referring Physician: Yola Ng Performed By: Brisa Franklin RDCS, RVT Chest X-Ray 05/25/20 04:35 IMPRESSION: Worsening asymmetric vascular congestion and/or bilateral pneumonia. Stable cardiomegaly. Electronically Signed: Skyler Graham MD at 6:19 EDT , Service support , Renal Ultrasound 05/25/20 05:55 IMPRESSION: No obstructive uropathy or suspicious solid renal lesion Nonobstructing left nephrolithiasis Bladder diverticulum Electronically Signed: Giovanni Huston MD at 10:19 EDT , Service support , Saphenous Venous Mapping 05/25/20 07:59 Interpretation Summary Dimensions of bilateral cephalic and basilic veins bilaterally IV is noted in a potential fistula vein--the cephalic vein of the left wrist. Increased velocity flow bilateral brachial and radial arteries. Ordering Physician: Lillian Acharya Referring Physician: Yola Ng M.D. Performed By: Alyssa Mcgrath RVT ? Current Medications Acetaminophen (Acetaminophen 325 Mg Tablet) 650 mg PO Q6H PRN PRN PRN Reason: Pain Score 1-10/Temp > 100.7 F Last Admin: 05/25/20 16:40 Dose: 650 mg Documented by: Al Hydroxide/Mg Hydroxide (Mag Hydrox/Al Hydrox/Simeth 30 Ml Udc) 30 ml PO Q4H PRN PRN PRN Reason: DYSPEPSIA Last Admin: 05/23/20 21:00 Dose: 30 ml Documented by: Albuterol/Ipratropium (Ipratropium/Albuterol Sulfate 3 Ml Ampul.Neb) 3 ml INHALATION Q6HWA.RT [facility] Last Admin: 05/27/20 07:10 Dose: 3 ml Documented by: Ascorbic Acid (Ascorbic Acid 500 Mg Tablet) 1,000 mg PO DAILY [facility] Last Admin: 05/26/20 09:43 Dose: 1,000 mg Documented by: Atorvastatin Calcium (Atorvastatin Calcium 40 Mg Tablet) 40 mg PO QHS [facility] Last Admin: 05/26/20 22:49 Dose: 40 mg Documented by: Buspirone HCl (Buspirone 5 Mg Tablet) 10 mg PO DAILY [facility] Last Admin: 05/26/20 09:42 Dose: 10 mg Documented by: Calcitriol (Calcitriol 0.25 Mcg Capsule) 0.25 mcg PO DAILY [facility] Carvedilol (Carvedilol 12.5 Mg Tablet) 12.5 mg PO BID [facility] Last Admin: 05/26/20 22:49 Dose: 12.5 mg Documented by: Cholecalciferol (Cholecalciferol (Vit D3) 25 Mcg Tablet (1,000 Units)) 25 mcg PO DAILY [facility] Last Admin: 05/26/20 09:44 Dose: 25 mcg Documented by: Clopidogrel Bisulfate (Clopidogrel Bisulfate 75 Mg Tablet) 75 mg PO DAILY [facility] Last Admin: 05/26/20 09:42 Dose: 75 mg Documented by: Dextrose (Dextrose 50%-Water 25 Gm/50 Ml Disp.Syrin) 0 gm IV X1 PRN; Protocol PRN Reason: Hypoglycemia Dicyclomine HCl (Dicyclomine 10 Mg Capsule) 20 mg PO TIDAC [facility] Last Admin: 05/27/20 06:43 Dose: 20 mg Documented by: Furosemide (Furosemide 40 Mg Tablet) 40 mg PO BID@1000,1800 [facility] Last Admin: 05/26/20 16:36 Dose: 40 mg Documented by: Gabapentin (Gabapentin 100 Mg Capsule) 100 mg PO BID [facility] Last Admin: 05/26/20 22:49 Dose: 100 mg Documented by: Glucagon (Glucagon 1 Mg/Ml Syringe) 1 mg IM .X1 PRN PRN Reason: Hypoglycemia Hydralazine HCl (Hydralazine 25 Mg Tablet) 25 mg PO TID [facility] Last Admin: 05/27/20 06:43 Dose: 25 mg Documented by: Insulin Glargine (Insulin Glargine 100 Units/Ml Pen) 12 units SC QHS [facility] Last Admin: 05/26/20 22:50 Dose: 12 u Documented by: Insulin Human Lispro (Insulin Lispro 100 Unit/Ml Insuln.Pen) 0 unit SC TIDAC [facility]; Protocol Last Admin: 05/27/20 06:44 Dose: Not Given Documented by: Multi-Ingredient Cream (Mineral Oil/Petrolatum,White Jar) 1 applic TOPICAL BID PRN [facility]; Protocol Last Admin: 05/24/20 08:22 Dose: 1 applic Documented by: Multivitamins (Multivitamins,Therapeutic Tablet) [facility] Last Admin: 05/26/20 09:42 Dose: 1 tablet Documented by: Nifedipine (Nifedipine 90 Mg Tablet) 90 mg PO DAILY [facility] Last Admin: 05/26/20 09:43 Dose: 90 mg Documented by: Nitroglycerin (Nitroglycerin (Inpatient Use) 0.4 Mg Tab.Subl) 0.4 mg SL Q5M PRN PRN Reason: CARDIAC/CHEST PAIN Last Admin: 05/23/20 20:55 Dose: 0.4 mg Documented by: Pantoprazole Sodium (Pantoprazole Sodium 40 Mg Tablet) 40 mg PO DAILY [facility] Last Admin: 05/26/20 09:43 Dose: 40 mg Documented by: Pyridoxine HCl (Pyridoxine Hcl 100 Mg Tablet) 100 mg PO DAILY [facility] Last Admin: 05/26/20 09:42 Dose: 100 mg Documented by: Simethicone (Simethicone 80 Mg Tablet) 80 mg PO TIDPC [facility] Last Admin: 05/26/20 16:36 Dose: 80 mg Documented by: Sodium Bicarbonate (Sodium Bicarbonate 650 Mg Tablet) 650 mg PO BID [facility] Last Admin: 05/26/20 22:49 Dose: 650 mg Documented by: Sodium Chloride (0.9% Saline Lock 10 Ml Syringe) 10 - 40 ml IV UD PRN PRN Reason: SALINE FLUSH Last Admin: 05/25/20 17:12 Dose: 10 ml Documented by: Venlafaxine HCl (Venlafaxine Xr 150 Mg Capsule) 150 mg PO DAILY [facility] Last Admin: 05/26/20 09:44 Dose: 150 mg Documented by: Medical Necessity - Tobacco Use Smoking Status: Former smoker - Quit 2000 Assessment/Plan All Active Problems Chronic 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 (Resolved) Ulcer of left lower extremity with fat layer exposed (Resolved) Chest pain (Acute) (HFpEF) heart failure with preserved ejection fraction (Acute) Atrial fibrillation (Acute) Diastolic CHF, acute (Acute) CHF (congestive heart failure) (Acute) RECOMMENDATIONS: 1. Continue diuretic therapy as tolerated by hemodynamics and renal function. 2. Anticipate need for dialysis in the near future. 3. Continue to wean supplemental oxygen to maintain saturations at or above 90%. 4. Continue to monitor H&H daily. Plan to transfuse if hemoglobin drops below 7 g/dL. 5. Continue empiric use of BiPAP while sleeping. 6. Continue scheduled bronchodilator therapy while awake. 7. Encourage incentive spirometer use and mobilize patient as tolerated. 8. Recommend outpatient pulmonary follow-up so that baseline PFTs and polysomnogram can be completed. IMPRESSIONS: 1. Acute hypoxemic respiratory failure with concern for decompensated heart failure Clinical concern for acute decompensated heart failure based upon clinical presentation and radiographic findings. Plan to continue diuretic therapy as tolerated by hemodynamics and renal function. Encourage incentive spirometer use and mobilize patient as tolerated. Continue to wean supplemental oxygen to maintain saturations at or above 90%. Continue empiric BiPAP therapy on a nightly basis as tolerated. Anticipate future need for dialysis. Continue scheduled bronchodilator therapy while awake, given prior smoking history. 2. Anemia Unclear etiology. No overt signs of blood loss. The patient previously had a hemoglobin of 11.3 g/dL 1 year ago. Although the patient was transfused 3 units of packed red blood cells, hemoglobin is still low. Recommend continuing to monitor H&H daily. Transfuse if hemoglobin drops below 7 g/dL. Continue daily PPI therapy. 3. Acute on chronic kidney disease Possibly related to underlying medical renal disease coupled with overdiuresis. Nephrology is currently following with plans for potential dialysis in the very near future. 4. Obesity/diabetes/coronary artery disease/atrial fibrillation/untreated obstructive sleep apnea Complicates care, management, recovery and prognosis. As noted above, recommend empiric use of BiPAP therapy on a nightly basis. This note was generated with [employer] software. It may contain incorrect words, spelling, and punctuation that were not noted in checking the note before signing. Inpatient E&M: 17033 Subs Hosp L3
--- NOTE | 2020-05-27 09:13 | PCM.PN.REN ---
Patient Problems: Active and Suspected Problems Malnutrition (Suspected) Chest pain (Acute) (HFpEF) heart failure with preserved ejection fraction (Acute) Atrial fibrillation (Acute) Diastolic CHF, acute (Acute) CHF (congestive heart failure) (Acute) Subjective: denies SOB, nausea, vomiting. Urine output unchanged. Creatinine increasing. Scheduled for dialysis today after temp dialysis cath placement. INR elevated. Will eventually need AVF and tunneled catheter prior to discharge. - Physical Exam Vitals/I&O's: Vital Signs Temp Pulse Resp BP Pulse Ox 98.4 F 79 21 H 137/76 H 93 05/27/20 05:26 05/27/20 07:10 05/27/20 07:10 05/27/20 05:26 05/27/20 07:10 Oxygen Flow Rate (L/min) 8 Oxygen Delivery Method Nasal Cannula Weight: 152.3 kg Body Mass Index (BMI) 51.2 Intake and Output for Last 24 Hours 05/25/20 05/26/20 05/27/20 23:59 23:59 23:59 Intake Total 1455 / 1455 1130 / 1130 360 / 360 Output Total 2550 / 2550 625 / 625 Balance -1095 / -1095 505 / 505 360 / 360 General: Alert, Oriented x3, Cooperative, No apparent distress Oral: Moist Mucosa Lungs: Clear to auscultation, Diminished Cardiovascular: Regular rate Abdomen: Bowel Sounds Present, Soft, Non Tender, Obese Extremities: No edema Skin: - - ecchymosis Musculoskeletal: No Muscle Wasting Neurological: Cranial nerves II-XII grossly intact, - - no tremor Psych/Mental Status: Normal Affect, Appropriate, Alert and oriented to time, place, person, mood and affect Microbiology Past 72 Hours 05/25/20 05:00 Blood Culture (Wb) - Right Forearm Blood Culture - Preliminary No growth in 48 hours. 05/25/20 04:54 Blood Culture (Wb) - Anticubital Right Blood Culture - Preliminary No growth in 48 hours. 05/25/20 16:00 Interface Orders Urine Culture - Preliminary Culture exhibits no growth. 05/25/20 04:42 Mucosa - Nose SARS-CoV-2 Antigen (Rapid) - Final Laboratory Results 05/26/20 11:18: POC Glucose 186 H 05/26/20 16:34: POC Glucose 314 H 05/26/20 22:49: POC Glucose 206 H 05/27/20 05:14: Sodium 141, Potassium 4.0, Chloride 108 H, Carbon Dioxide 21.0, Anion Gap 12, BUN 100 H, Creatinine 6.15 H, Estim Creat Clear Calc 12.51, Est GFR (MDRD) Af Amer 12 L, Est GFR (MDRD) Non-Af 10 L, BUN/Creatinine Ratio 16.3, Glucose 153 H, Calcium 8.2 L, Phosphorus 5.2 H, Albumin 2.8 L 05/27/20 05:14: PT 34.9 H, INR 3.6 05/27/20 05:14: WBC 11.0, RBC 2.67 L, Hgb 7.5 L, Hct 24.0 L, MCV 89.9, MCH 28.1, MCHC 31.3 L, RDW Std Deviation 50.4 H, RDW Coeff of Kassandra 15.3 H, Plt Count 193, MPV 10.4, Immature Gran % (Auto) 0.300, Neut % (Auto) 73.2 H, Lymph % (Auto) 16.7 L, [place] % (Auto) 7.6, Eos % (Auto) 2.0, Baso % (Auto) 0.2, Absolute Neuts (auto) 8.0 H, Absolute Lymphs (auto) 1.83, Nucleated RBC % 0 05/27/20 06:41: POC Glucose 139 H 05/27/20 08:00: Blood Type Pending, Antibody Screen Pending Current Medications Acetaminophen (Acetaminophen 325 Mg Tablet) 650 mg PO Q6H PRN PRN PRN Reason: Pain Score 1-10/Temp > 100.7 F Last Admin: 05/25/20 16:40 Dose: 650 mg Documented by: Al Hydroxide/Mg Hydroxide (Mag Hydrox/Al Hydrox/Simeth 30 Ml Udc) 30 ml PO Q4H PRN PRN PRN Reason: DYSPEPSIA Last Admin: 05/23/20 21:00 Dose: 30 ml Documented by: Albuterol/Ipratropium (Ipratropium/Albuterol Sulfate 3 Ml Ampul.Neb) 3 ml INHALATION Q6HWA.RT DELIA Last Admin: 05/27/20 07:10 Dose: 3 ml Documented by: Ascorbic Acid (Ascorbic Acid 500 Mg Tablet) 1,000 mg PO DAILY [facility] Last Admin: 05/26/20 09:43 Dose: 1,000 mg Documented by: Atorvastatin Calcium (Atorvastatin Calcium 40 Mg Tablet) 40 mg PO QHS [facility] Last Admin: 05/26/20 22:49 Dose: 40 mg Documented by: Buspirone HCl (Buspirone 5 Mg Tablet) 10 mg PO DAILY [facility] Last Admin: 05/26/20 09:42 Dose: 10 mg Documented by: Calcitriol (Calcitriol 0.25 Mcg Capsule) 0.25 mcg PO DAILY [facility] Carvedilol (Carvedilol 12.5 Mg Tablet) 12.5 mg PO BID [facility] Last Admin: 05/26/20 22:49 Dose: 12.5 mg Documented by: Cholecalciferol (Cholecalciferol (Vit D3) 25 Mcg Tablet (1,000 Units)) 25 mcg PO DAILY [facility] Last Admin: 05/26/20 09:44 Dose: 25 mcg Documented by: Clopidogrel Bisulfate (Clopidogrel Bisulfate 75 Mg Tablet) 75 mg PO DAILY [facility] Last Admin: 05/26/20 09:42 Dose: 75 mg Documented by: Dextrose (Dextrose 50%-Water 25 Gm/50 Ml Disp.Syrin) 0 gm IV X1 PRN; Protocol PRN Reason: Hypoglycemia Dicyclomine HCl (Dicyclomine 10 Mg Capsule) 20 mg PO TIDAC [facility] Last Admin: 05/27/20 06:43 Dose: 20 mg Documented by: Furosemide (Furosemide 40 Mg Tablet) 40 mg PO BID@1000,1800 [facility] Last Admin: 05/26/20 16:36 Dose: 40 mg Documented by: Gabapentin (Gabapentin 100 Mg Capsule) 100 mg PO BID [facility] Last Admin: 05/26/20 22:49 Dose: 100 mg Documented by: Glucagon (Glucagon 1 Mg/Ml Syringe) 1 mg IM .X1 PRN PRN Reason: Hypoglycemia Hydralazine HCl (Hydralazine 25 Mg Tablet) 25 mg PO TID [facility] Last Admin: 05/27/20 06:43 Dose: 25 mg Documented by: Insulin Glargine (Insulin Glargine 100 Units/Ml Pen) 12 units SC QHS [facility] Last Admin: 05/26/20 22:50 Dose: 12 u Documented by: Insulin Human Lispro (Insulin Lispro 100 Unit/Ml Insuln.Pen) 0 unit SC TIDAC [facility]; Protocol Last Admin: 05/27/20 06:44 Dose: Not Given Documented by: Multi-Ingredient Cream (Mineral Oil/Petrolatum,White Jar) 1 applic TOPICAL BID PRN [facility]; Protocol Last Admin: 05/24/20 08:22 Dose: 1 applic Documented by: Multivitamins (Multivitamins,Therapeutic Tablet) 1 tablet PO DAILYCM [facility] Last Admin: 05/26/20 09:42 Dose: 1 tablet Documented by: Nifedipine (Nifedipine 90 Mg Tablet) 90 mg PO DAILY [facility] Last Admin: 05/26/20 09:43 Dose: 90 mg Documented by: Nitroglycerin (Nitroglycerin (Inpatient Use) 0.4 Mg Tab.Subl) 0.4 mg SL Q5M PRN PRN Reason: CARDIAC/CHEST PAIN Last Admin: 05/23/20 20:55 Dose: 0.4 mg Documented by: Pantoprazole Sodium (Pantoprazole Sodium 40 Mg Tablet) 40 mg PO DAILY [facility] Last Admin: 05/26/20 09:43 Dose: 40 mg Documented by: Pyridoxine HCl (Pyridoxine Hcl 100 Mg Tablet) 100 mg PO DAILY [facility] Last Admin: 05/26/20 09:42 Dose: 100 mg Documented by: Simethicone (Simethicone 80 Mg Tablet) 80 mg PO TIDPC [facility] Last Admin: 05/26/20 16:36 Dose: 80 mg Documented by: Sodium Bicarbonate (Sodium Bicarbonate 650 Mg Tablet) 650 mg PO BID [facility] Last Admin: 05/26/20 22:49 Dose: 650 mg Documented by: Sodium Chloride (0.9% Saline Lock 10 Ml Syringe) 10 - 40 ml IV UD PRN PRN Reason: SALINE FLUSH Last Admin: 05/25/20 17:12 Dose: 10 ml Documented by: Venlafaxine HCl (Venlafaxine Xr 150 Mg Capsule) 150 mg PO DAILY [facility] Last Admin: 05/26/20 09:44 Dose: 150 mg Documented by: Medical Necessity - Tobacco Use Smoking Status: Former smoker - Quit 2000 Assessment/Plan All Active Problems Chronic 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 (Resolved) Ulcer of left lower extremity with fat layer exposed (Resolved) Chest pain (Acute) (HFpEF) heart failure with preserved ejection fraction (Acute) Atrial fibrillation (Acute) Diastolic CHF, acute (Acute) CHF (congestive heart failure) (Acute) 1. 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 Tunneled dialysis cahteter placement when medically stable. Leukocytosis with fever improved, blood cx no growth so far. INR elevated, temp dialysis catheter placement for now. 2. Diastolic HF continue with diuretics. 3. 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 Hx pafib in SR 5. Hx DVT LLE hold anticoagulation 6. Iron def anemia iv iron load. 7. Morbid obesity 8. PTH 376. Started calcitriol.
--- NOTE | 2020-05-27 10:07 | CASEMGMT ---
Addendum entered by Alyssa Rhoades 05/27/20 13:39: OP report from temp cath and CXR faxed to [facility] as well as anna marie JI. Ben LUNDY CM Original Note: [facility]. Referral also faxed to [facility] admissions and [facility]. Pt is getting temp cath placed today and plan is for tunnel cath prior to discharge. Ben LUNDY CM
--- NOTE | 2020-05-27 10:14 | PCM.PN.HOSP ---
<Babar Matos - Last Filed: 05/27/20 10:14> Patient Problems: Active and Suspected Problems Malnutrition (Suspected) Chest pain (Acute) (HFpEF) heart failure with preserved ejection fraction (Acute) Atrial fibrillation (Acute) Diastolic CHF, acute (Acute) CHF (congestive heart failure) (Acute) Subjective: Patient is a 60-year-old male comfortably resting in bed sleeping on his right side, alert and oriented x3. Patient is aware of his current disposition and that he needs a tunneled dialysis catheter, that is pending on his supratherapeutic INR. Patient reports feeling about the same as yesterday and denies any shortness of breath, chest pain, palpitations, fever, chills, N/V/D. Objective: Clinical Impression(s) from Imaging Studies Chest X-Ray 05/23/20 08:50 IMPRESSION: Cardiomegaly and pulmonary venous congestion. Superimposed mild infiltrate in right lung base is difficult to entirely exclude. Electronically Signed: Nate Bobby MD at 9:23 EDT Tel , Service support , Echocardiogram 05/23/20 11:42 Interpretation Summary Normal LV size. Moderate concentric left ventricular hypertrophy. Left ventricular systolic function is normal. The estimated ejection fraction is 60 %. Stage 2 diastolic dysfunction. Pulmonary artery systolic pressure is 42 mmHg. Mild pulmonary hypertension. Small pericardial effusion. There are no echocardiographic indications of cardiac tamponade. Ordering Physician: Immanuel Ken Referring Physician: Yola Ng Performed By: Brisa Franklin, RDCS, RVT Chest X-Ray 05/25/20 04:35 IMPRESSION: Worsening asymmetric vascular congestion and/or bilateral pneumonia. Stable cardiomegaly. Electronically Signed: Skyler Graham MD at 6:19 EDT , Service support , Renal Ultrasound 05/25/20 05:55 IMPRESSION: No obstructive uropathy or suspicious solid renal lesion Nonobstructing left nephrolithiasis Bladder diverticulum Electronically Signed: Giovanni Huston MD at 10:19 EDT , Service support , Saphenous Venous Mapping 05/25/20 07:59 Interpretation Summary Dimensions of bilateral cephalic and basilic veins bilaterally IV is noted in a potential fistula vein--the cephalic vein of the left wrist. Increased velocity flow bilateral brachial and radial arteries. Ordering Physician: Lillian Acharya Referring Physician: Yola Ng M.D. Performed By: Alyssa Mcgrath Ingrid ? Vitals/I&O's: Vital Signs Temp Pulse Resp BP Pulse Ox 98.8 F 88 19 H 133/69 H 94 05/27/20 09:45 05/27/20 09:45 05/27/20 09:45 05/27/20 09:45 05/27/20 09:45 Oxygen Flow Rate (L/min) 4 Oxygen Delivery Method Nasal Cannula Weight: 335 lb 12.224 oz Body Mass Index (BMI) 51.2 Intake and Output for Last 24 Hours 05/25/20 05/26/20 05/27/20 23:59 23:59 23:59 Intake Total 1455 / 1455 1130 / 1130 410.5 / 410.5 Output Total 2550 / 2550 625 / 625 Balance -1095 / -1095 505 / 505 410.5 / 410.5 General: Alert, Oriented x3, Cooperative HEENT: Atraumatic, PERRLA, EOMI, Normocephalic Neck: Supple, No JVD, Negative Carotid Bruits Lungs: Diminished, Rales - Bilateral crackles at lung bases Cardiovascular: Regular rate, No murmurs Abdomen: Bowel Sounds Present, Soft, Non Tender, Obese Extremities: No edema, Capillary Refill Less than 3 Seconds, Diminished Peripheral Pulses - Bilaterally Skin: No rashes, No breakdown Musculoskeletal: No Tenderness to Palpation of Joints or Extremities Neurological: Cranial nerves II-XII grossly intact Psych/Mental Status: Normal Affect, Appropriate Microbiology Past 72 Hours 05/25/20 05:00 Blood Culture (Wb) - Right Forearm Blood Culture - Preliminary No growth in 48 hours. 05/25/20 04:54 Blood Culture (Wb) - Anticubital Right Blood Culture - Preliminary No growth in 48 hours. 05/25/20 16:00 Interface Orders Urine Culture - Preliminary Culture exhibits no growth. 05/25/20 04:42 Mucosa - Nose SARS-CoV-2 Antigen (Rapid) - Final Laboratory Results 05/26/20 11:18: POC Glucose 186 H 05/26/20 16:34: POC Glucose 314 H 05/26/20 22:49: POC Glucose 206 H 05/27/20 05:14: Sodium 141, Potassium 4.0, Chloride 108 H, Carbon Dioxide 21.0, Anion Gap 12, BUN 100 H, Creatinine 6.15 H, Estim Creat Clear Calc 12.51, Est GFR (MDRD) Af Amer 12 L, Est GFR (MDRD) Non-Af 10 L, BUN/Creatinine Ratio 16.3, Glucose 153 H, Calcium 8.2 L, Phosphorus 5.2 H, Albumin 2.8 L 05/27/20 05:14: PT 34.9 H, INR 3.6 05/27/20 05:14: WBC 11.0, RBC 2.67 L, Hgb 7.5 L, Hct 24.0 L, MCV 89.9, MCH 28.1, MCHC 31.3 L, RDW Std Deviation 50.4 H, RDW Coeff of Kassandra 15.3 H, Plt Count 193, MPV 10.4, Immature Gran % (Auto) 0.300, Neut % (Auto) 73.2 H, Lymph % (Auto) 16.7 L, Mccone % (Auto) 7.6, Eos % (Auto) 2.0, Baso % (Auto) 0.2, Absolute Neuts (auto) 8.0 H, Absolute Lymphs (auto) 1.83, Nucleated RBC % 0 05/27/20 06:41: POC Glucose 139 H 05/27/20 08:00: Blood Type A POSITIVE, Antibody Screen NEGATIVE Current Medications Acetaminophen (Acetaminophen 325 Mg Tablet) 650 mg PO Q6H PRN PRN PRN Reason: Pain Score 1-10/Temp > 100.7 F Last Admin: 05/25/20 16:40 Dose: 650 mg Documented by: Al Hydroxide/Mg Hydroxide (Mag Hydrox/Al Hydrox/Simeth 30 Ml Udc) 30 ml PO Q4H PRN PRN PRN Reason: DYSPEPSIA Last Admin: 05/23/20 21:00 Dose: 30 ml Documented by: Albuterol/Ipratropium (Ipratropium/Albuterol Sulfate 3 Ml Ampul.Neb) 3 ml INHALATION Q6HWA.RT [facility] Last Admin: 05/27/20 07:10 Dose: 3 ml Documented by: Ascorbic Acid (Ascorbic Acid 500 Mg Tablet) 1,000 mg PO DAILY [facility] Last Admin: 05/26/20 09:43 Dose: 1,000 mg Documented by: Atorvastatin Calcium (Atorvastatin Calcium 40 Mg Tablet) 40 mg PO QHS [facility] Last Admin: 05/26/20 22:49 Dose: 40 mg Documented by: Buspirone HCl (Buspirone 5 Mg Tablet) 10 mg PO DAILY [facility] Last Admin: 05/26/20 09:42 Dose: 10 mg Documented by: Calcitriol (Calcitriol 0.25 Mcg Capsule) 0.25 mcg PO DAILY [facility] Carvedilol (Carvedilol 12.5 Mg Tablet) 12.5 mg PO BID [facility] Last Admin: 05/26/20 22:49 Dose: 12.5 mg Documented by: Cholecalciferol (Cholecalciferol (Vit D3) 25 Mcg Tablet (1,000 Units)) 25 mcg PO DAILY [facility] Last Admin: 05/26/20 09:44 Dose: 25 mcg Documented by: Clopidogrel Bisulfate (Clopidogrel Bisulfate 75 Mg Tablet) 75 mg PO DAILY [facility] Last Admin: 05/26/20 09:42 Dose: 75 mg Documented by: Dextrose (Dextrose 50%-Water 25 Gm/50 Ml Disp.Syrin) 0 gm IV X1 PRN; Protocol PRN Reason: Hypoglycemia Dicyclomine HCl (Dicyclomine 10 Mg Capsule) 20 mg PO TIDAC [facility] Last Admin: 05/27/20 06:43 Dose: 20 mg Documented by: Furosemide (Furosemide 40 Mg Tablet) 40 mg PO BID@1000,1800 [facility] Last Admin: 05/26/20 16:36 Dose: 40 mg Documented by: Gabapentin (Gabapentin 100 Mg Capsule) 100 mg PO BID [facility] Last Admin: 05/26/20 22:49 Dose: 100 mg Documented by: Glucagon (Glucagon 1 Mg/Ml Syringe) 1 mg IM .X1 PRN PRN Reason: Hypoglycemia Hydralazine HCl (Hydralazine 25 Mg Tablet) 25 mg PO TID [facility] Last Admin: 05/27/20 06:43 Dose: 25 mg Documented by: Insulin Glargine (Insulin Glargine 100 Units/Ml Pen) 12 units SC QHS [facility] Last Admin: 05/26/20 22:50 Dose: 12 u Documented by: Insulin Human Lispro (Insulin Lispro 100 Unit/Ml Insuln.Pen) 0 unit SC TIDAC [facility]; Protocol Last Admin: 05/27/20 06:44 Dose: Not Given Documented by: Multi-Ingredient Cream (Mineral Oil/Petrolatum,White Jar) 1 applic TOPICAL BID PRN [facility]; Protocol Last Admin: 05/24/20 08:22 Dose: 1 applic Documented by: Multivit/Ca Carb/B Cmplx/FA/Prenat (Folic Acid/Vitamin B Comp W-C 1 Capsule) 1 capsule PO DAILY [facility] Multivitamins ([facility]it[facility],Therapeutic [facility]t) [facility] Last Admin: 05/26/20 09:42 Dose: 1 tablet Documented by: Nifedipine (Nifedipine 90 Mg Tablet) 90 mg PO DAILY [facility] Last Admin: 05/26/20 09:43 Dose: 90 mg Documented by: Nitroglycerin (Nitroglycerin (Inpatient Use) 0.4 Mg Tab.Subl) 0.4 mg SL Q5M PRN PRN Reason: CARDIAC/CHEST PAIN Last Admin: 05/23/20 20:55 Dose: 0.4 mg Documented by: Pantoprazole Sodium (Pantoprazole Sodium 40 Mg Tablet) 40 mg PO DAILY [facility] Last Admin: 05/26/20 09:43 Dose: 40 mg Documented by: Pyridoxine HCl (Pyridoxine Hcl 100 Mg Tablet) 100 mg PO DAILY [facility] Last Admin: 05/26/20 09:42 Dose: 100 mg Documented by: Simethicone (Simethicone 80 Mg Tablet) 80 mg PO TIDPC [facility] Last Admin: 05/26/20 16:36 Dose: 80 mg Documented by: Sodium Bicarbonate (Sodium Bicarbonate 650 Mg Tablet) 650 mg PO BID [facility] Last Admin: 05/26/20 22:49 Dose: 650 mg Documented by: Sodium Chloride (0.9% Saline Lock 10 Ml Syringe) 10 - 40 ml IV UD PRN PRN Reason: SALINE FLUSH Last Admin: 05/25/20 17:12 Dose: 10 ml Documented by: Venlafaxine HCl (Venlafaxine Xr 150 Mg Capsule) 150 mg PO DAILY [facility] Last Admin: 05/26/20 09:44 Dose: 150 mg Documented by: STROKE Vital Signs/Narrative: Vital Signs Temp Pulse Resp BP Pulse Ox 05/27/20 09:45 98.8 F 88 19 H 133/69 H 94 05/27/20 07:10 79 21 H 93 05/27/20 07:00 87 05/27/20 06:43 80 Medical Necessity - Tobacco Use Smoking Status: Former smoker - Quit 2000 Assessment/Plan All Active Problems Chronic 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 (Resolved) Ulcer of left lower extremity with fat layer exposed (Resolved) Chest pain (Acute) (HFpEF) heart failure with preserved ejection fraction (Acute) Atrial fibrillation (Acute) Diastolic CHF, acute (Acute) CHF (congestive heart failure) (Acute) Patient is a 60-year-old male who presented to the ED on 05/23/2020 with a chief complaint of chest pain, shortness of breath and lower extremity edema. Patient was admitted for unspecified chest pain and acute CHF exacerbation. INR currently 3.6. Phytonadione infused this morning in an attempt to lower his INR. Temporary catheter will be placed this morning. Tunneled dialysis catheter will be placed closer to patient discharge. FFP administration pending general surgery. 1) Acute heart failure with preserved ejection fraction exacerbation Assessment - Echo: Moderate LVH, normal LV systolic function, EF at 60%, mild pulmonary hypertension, small effusion with no signs of cardiac tamponade, stage II diastolic dysfunction - Not a candidate for SRINIVASA/ARB due to advanced CKD Plan -Continue hydralazine -Continue Lasix, Nifedipine and Coreg 2) Anemia Assessment - Considering symptomatic anemia in regards to dyspnea and chest pain - Hemoglobin 7.5 - No evidence of an acute bleed - Blood pressure not suggestive of hemodynamic compromise Plan - Continue to monitor CBC 4) CKD Stage IV-V Assessment - Estimated GFR of 10 - Creatinine 6.15 - Estimated creatinine clearance 12.51 Plan -Tunneled dialysis catheter placed closer to time of discharge per general surgery 5) DM 2 Assessment - POC glucose 139 - Hemoglobin A1c 6.3 Plan - Continue to hold glipizide giving worsening kidney function 7) CAD Assessment -Already on Lipitor and Plavix Plan - Echocardiogram and stress test plan for 05/25/2020 - Continue clopidogrel and carvedilol 8) A-Fib Assessment - EKG demonstrates sinus rhythm with multiple PACs - Rate control on carvedilol - Holding warfarin - INR 3.6, phytonadione infused on 05/27/2020 Plan - Continue to hold warfarin due to supratherapeutic INR - Continue rate control with carvedilol DVT Prophylaxis - already on warfarin Patient seen by Babar Matos PA-C, under the supervision of Dr. Zamora. <Dalton Zamora - Last Filed: 05/27/20 16:30> Reason for Visit: Discussed with surgeon Dr. Fregoso and Dr. Acharya in the morning. We agreed upon temporary dialysis catheter. Vitamin K 5 mg IV given. Patient shortness of breath is same. Urine output decreased 625 mill but patient also had 2 large urine incontinent. No fever. Leukocytosis resolved. INR 3.6. 2 units of FFP arranged. Physical exam General: Alert, Oriented x3, Cooperative, morbid obesity BMI 50.4 kg/m? HEENT: Atraumatic, PERRLA, EOMI, Normocephalic Oral: No Gingival or Mucosal Lesions/ Ulcerations Neck: Supple, No JVD, Negative Carotid Bruits Lungs: Air entry diminished in bilateral lung bases. Bilateral coarse crepitations and rhonchi present. On 8 L of oxygen. Cardiovascular: Irregular heart rate with multiple PACs. Normal S1, Normal S2, systolic murmur over LLSB and right second ICS Abdomen: Bowel Sounds Present, Soft, Non Tender, Non-Distended : No renal angle tenderness. No suprapubic tenderness. Extremities: Bilateral lower extremity edema around thigh and knees, Capillary Refill Less than 3 Seconds Skin: No rashes, No breakdown Musculoskeletal: No Tenderness to Palpation of Joints or Extremities Neurological: Cranial nerves II-XII grossly intact, Deep Tendon Reflexes 2+/4 and Symmetrical, Neuro grossly intact Psych/Mental Status: Normal Affect, Appropriate. Vitals/I&O's: Vital Signs Temp Pulse Resp BP Pulse Ox 98.4 F 73 22 H 133/63 H 98 05/27/20 14:05 05/27/20 15:00 05/27/20 14:05 05/27/20 14:05 05/27/20 14:05 Oxygen Flow Rate (L/min) 4 Oxygen Delivery Method Nasal Cannula Weight: 335 lb 12.224 oz Body Mass Index (BMI) 51.2 Intake and Output for Last 24 Hours 05/25/20 05/26/20 05/27/20 23:59 23:59 23:59 Intake Total 1455 / 1455 1130 / 1130 510.5 / 510.5 Output Total 2550 / 2550 625 / 625 Balance -1095 / -1095 505 / 505 510.5 / 510.5 Microbiology Past 72 Hours 05/25/20 05:00 Blood Culture (Wb) - Right Forearm Blood Culture - Preliminary No growth in 48 hours. 05/25/20 04:54 Blood Culture (Wb) - Anticubital Right Blood Culture - Preliminary No growth in 48 hours. 05/25/20 16:00 Interface Orders Urine Culture - Preliminary Culture exhibits no growth. 05/25/20 04:42 Mucosa - Nose SARS-CoV-2 Antigen (Rapid) - Final Laboratory Results 05/26/20 04:30: Hep Bs Antigen Non-Reactive, Hep Bs Antibody Non-Reactive 05/26/20 04:30: Hep B Core Total Ab Pending 05/26/20 16:34: POC Glucose 314 H 05/26/20 22:49: POC Glucose 206 H 05/27/20 05:14: Sodium 141, Potassium 4.0, Chloride 108 H, Carbon Dioxide 21.0, Anion Gap 12, BUN 100 H, Creatinine 6.15 H, Estim Creat Clear Calc 12.51, Est GFR (MDRD) Af Amer 12 L, Est GFR (MDRD) Non-Af 10 L, BUN/Creatinine Ratio 16.3, Glucose 153 H, Calcium 8.2 L, Phosphorus 5.2 H, Albumin 2.8 L 05/27/20 05:14: PT 34.9 H, INR 3.6 05/27/20 05:14: WBC 11.0, RBC 2.67 L, Hgb 7.5 L, Hct 24.0 L, MCV 89.9, MCH 28.1, MCHC 31.3 L, RDW Std Deviation 50.4 H, RDW Coeff of Kassandra 15.3 H, Plt Count 193, MPV 10.4, Immature Gran % (Auto) 0.300, Neut % (Auto) 73.2 H, Lymph % (Auto) 16.7 L, Mccone % (Auto) 7.6, Eos % (Auto) 2.0, Baso % (Auto) 0.2, Absolute Neuts (auto) 8.0 H, Absolute Lymphs (auto) 1.83, Nucleated RBC % 0 05/27/20 06:41: POC Glucose 139 H 05/27/20 08:00: Blood Type A POSITIVE, Antibody Screen NEGATIVE 05/27/20 11:12: POC Glucose 139 H Current Medications Acetaminophen (Acetaminophen 325 Mg Tablet) 650 mg PO Q6H PRN PRN PRN Reason: Pain Score 1-10/Temp > 100.7 F Last Admin: 05/25/20 16:40 Dose: 650 mg Documented by: Al Hydroxide/Mg Hydroxide (Mag Hydrox/Al Hydrox/Simeth 30 Ml Udc) 30 ml PO Q4H PRN PRN PRN Reason: DYSPEPSIA Last Admin: 05/23/20 21:00 Dose: 30 ml Documented by: Albuterol/Ipratropium (Ipratropium/Albuterol Sulfate 3 Ml Ampul.Neb) 3 ml INHALATION Q6HWA.RT [facility] Last Admin: 05/27/20 13:39 Dose: 3 ml Documented by: Ascorbic Acid (Ascorbic Acid 500 Mg Tablet) 1,000 mg PO DAILY [facility] Last Admin: 05/27/20 10:44 Dose: 1,000 mg Documented by: Atorvastatin Calcium (Atorvastatin Calcium 40 Mg Tablet) 40 mg PO QHS [facility] Last Admin: 05/26/20 22:49 Dose: 40 mg Documented by: Buspirone HCl (Buspirone 5 Mg Tablet) 10 mg PO DAILY [facility] Last Admin: 05/27/20 10:43 Dose: 10 mg Documented by: Calcitriol (Calcitriol 0.25 Mcg Capsule) 0.25 mcg PO DAILY [facility] Last Admin: 05/27/20 10:43 Dose: 0.25 mcg Documented by: Carvedilol (Carvedilol 12.5 Mg Tablet) 12.5 mg PO BID [facility] Last Admin: 05/27/20 10:44 Dose: 12.5 mg Documented by: Cholecalciferol (Cholecalciferol (Vit D3) 25 Mcg Tablet (1,000 Units)) 25 mcg PO DAILY [facility] Last Admin: 05/27/20 10:44 Dose: 25 mcg Documented by: Clopidogrel Bisulfate (Clopidogrel Bisulfate 75 Mg Tablet) 75 mg PO DAILY [facility] Last Admin: 05/27/20 10:44 Dose: 75 mg Documented by: Dextrose (Dextrose 50%-Water 25 Gm/50 Ml Disp.Syrin) 0 gm IV X1 PRN; Protocol PRN Reason: Hypoglycemia Dicyclomine HCl (Dicyclomine 10 Mg Capsule) 20 mg PO TIDAC [facility] Last Admin: 05/27/20 10:43 Dose: 20 mg Documented by: Furosemide (Furosemide 40 Mg Tablet) 40 mg PO BID@1000,1800 [facility] Last Admin: 05/27/20 10:43 Dose: 40 mg Documented by: Gabapentin (Gabapentin 100 Mg Capsule) 100 mg PO BID [facility] Last Admin: 05/27/20 10:44 Dose: 100 mg Documented by: Glucagon (Glucagon 1 Mg/Ml Syringe) 1 mg IM .X1 PRN PRN Reason: Hypoglycemia Hydralazine HCl (Hydralazine 25 Mg Tablet) 25 mg PO TID [facility] Last Admin: 05/27/20 14:07 Dose: 25 mg Documented by: Insulin Glargine (Insulin Glargine 100 Units/Ml Pen) 12 units SC QHS [facility] Last Admin: 05/26/20 22:50 Dose: 12 u Documented by: Insulin Human Lispro (Insulin Lispro 100 Unit/Ml Insuln.Pen) 0 unit SC TIDAC [facility]; Protocol Last Admin: 05/27/20 11:41 Dose: Not Given Documented by: Multi-Ingredient Cream (Mineral Oil/Petrolatum,White Jar) 1 applic TOPICAL BID PRN [facility]; Protocol Last Admin: 05/24/20 08:22 Dose: 1 applic Documented by: Multivit/Ca Carb/B Cmplx/FA/Prenat (Folic Acid/Vitamin B Comp W-C 1 Capsule) 1 capsule PO DAILY [facility] Last Admin: 05/27/20 10:48 Dose: 1 capsule Documented by: Multivitamins ([facility]it[facility],Therapeutic Tablet) [facility] Last Admin: 05/27/20 10:42 Dose: 1 tablet Documented by: Nifedipine (Nifedipine 90 Mg Tablet) 90 mg PO DAILY [facility] Last Admin: 05/27/20 10:43 Dose: 90 mg Documented by: Nitroglycerin (Nitroglycerin (Inpatient Use) 0.4 Mg Tab.Subl) 0.4 mg SL Q5M PRN PRN Reason: CARDIAC/CHEST PAIN Last Admin: 05/23/20 20:55 Dose: 0.4 mg Documented by: Pantoprazole Sodium (Pantoprazole Sodium 40 Mg Tablet) 40 mg PO DAILY [facility] Last Admin: 05/27/20 10:43 Dose: 40 mg Documented by: Pyridoxine HCl (Pyridoxine Hcl 100 Mg Tablet) 100 mg PO DAILY [facility] Last Admin: 05/27/20 10:43 Dose: 100 mg Documented by: Simethicone (Simethicone 80 Mg Tablet) 80 mg PO TIDPC [facility] Last Admin: 05/27/20 14:07 Dose: 80 mg Documented by: Sodium Bicarbonate (Sodium Bicarbonate 650 Mg Tablet) 650 mg PO BID [facility] Last Admin: 05/27/20 10:43 Dose: 650 mg Documented by: Sodium Chloride (0.9% Saline Lock 10 Ml Syringe) 10 - 40 ml IV UD PRN PRN Reason: SALINE FLUSH Last Admin: 05/25/20 17:12 Dose: 10 ml Documented by: Venlafaxine HCl (Venlafaxine Xr 150 Mg Capsule) 150 mg PO DAILY [facility] Last Admin: 05/27/20 10:44 Dose: 150 mg Documented by: STROKE Vital Signs/Narrative: Vital Signs Temp Pulse Resp BP Pulse Ox 05/27/20 15:00 73 05/27/20 14:07 74 05/27/20 14:05 98.4 F 74 22 H 133/63 H 98 05/27/20 13:39 84 19 H Assessment/Plan This patient was seen in conjunction with ELVIS Paredes. I have independently interviewed and examined the patient and reviewed pertinent history, examination findings, laboratory and plan of management. I have reviewed the note and agree with the documented findings with the few additional points. In brief, patient is a 60-year-old question gentleman with multiple comorbidities admitted with acute hypoxic respiratory failure secondary to acute on chronic diastolic heart failure. Patient alternatively on high flow oxygen in the morning and BiPAP at night. On IV diuretic. Previous echo of 2016 shows EF 55% with moderate concentric LVH, LA moderately enlarged suggestive of diastolic heart failure/HFpEF. Repeat echo at this time as mentioned below, EF 60% mainly diastolic heart failure. Mild pulmonary hypertension, RVSP 42 mmHg. Stage II diastolic dysfunction. Acute kidney injury on CKD stage 5: Due to diuretics, heart failure versus progressive diabetic nephropathy: Being followed by production sanitizer. 24-hour timed urine collection shows creatinine kinase 13 mL/min suggestive of CKD stage V. Renal sonogram shows no obstructive uropathy or suspicious solid renal lesion. Discussed with the production sanitizer and surgeon regarding dialysis catheter access. 05/27: Decided to go ahead with temporary dialysis catheter. Discussed with the patient. 2 ends of FFP advanced. Patient temporary dialysis catheter by his surgeon. Patient will be dialyzed about 7 PM and 2 units of FFP will be given during that time. INR 3.6 and vitamin K 5 mg IV given. Leukocytosis resolved. Blood cultures x2 - for more than 48 hours. Urine culture does not show growth. H&H shows mild drop from 8.8-7.5. Patient getting iron infusion. Diabetes mellitus type 2. Paroxysmal A. fib. Patient converted to sinus rhythm as per EKG of today showed sinus rhythm with PAC similar to surveillance monitor. Previous EKG May 23 shows A. fib at 133 bpm. Other comorbidities include severe anemia due to chronic kidney disease, coronary artery disease, history of DVT depression and morbid obesity: 1 unit of PRBC transfused 05/25, total 3 units. I have discussed my assessment with ELVIS Paredes and orders have been reviewed. Total time of the visit including total time spent in counseling or coordination of care, (more than 50% of the total time, spent in obtaining medical information from nurses and other ancillary care providers,explaining to the patient about labs, imaging, diagnosis and management), discussion with production sanitizer and card cleaner, review of labs and imaging is 30 minutes. Inpatient E&M: 54031 Subs Hosp L2
[2020-05-27] MEDS: Heparin 10,000 UNITS/10 ML Vial IV ×2 (10:31→23:30)
--- NOTE | 2020-05-27 10:33 | PCM.OPRPT ---
Problem List (1) [id number] kidney injury Status: Chronic Report of Operation Date of Procedure: 05/27/20 Pre-Operative Diagnosis: Acute on chronic kidney injury requiring dialysis Post-Operative Diagnosis: Same Surgery/Procedure Performed:: Ultrasound-guided right IJ temporary dialysis catheter placement Description of Procedure: The patient was consented and then the right neck and chest were prepped in usual sterile fashion. Ultrasound was used to localize the right IJ. The skin overlying the IJ was injected with local anesthetic. A small feliciano was made with a scalpel and a needle was used under ultrasound guidance to access the right IJ. The guidewire was placed without resistance. The needle was removed and serial dilators and then the catheter was placed over the guidewire. The guidewire was removed and both catheters were drawn back and flushed and they both capri and flushed easily. There is dark red nonpulsatile blood. The catheters were then injected with 1.5 cc of heparinized saline each and then clamped and capped. The skin more superior to this incision was then anesthetized and the catheter was sutured to the skin using the included nylon suture. Dressing was applied. The patient tolerated the procedure well and chest x-ray is pending. Grafts/Implants Used: Mahurkar temporary dialysis catheter
[2020-05-27] MEDS: Multivitamins,Therapeutic Tablet 1 TABLET PO (10:42)
[2020-05-27] MEDS: NIFEdipine 90 MG Tablet PO (10:43)
[2020-05-27] MEDS: Sodium Bicarbonate 650 MG Tablet PO (10:43)
[2020-05-27] MEDS: Pyridoxine HCl 100 MG Tablet PO (10:43)
[2020-05-27] MEDS: Furosemide 40 MG Tablet PO ×2 (10:43→16:29)
[2020-05-27] MEDS: Pantoprazole Sodium 40 MG Tablet PO (10:43)
[2020-05-27] MEDS: Calcitriol 0.25 MCG Capsule PO (10:43)
[2020-05-27] MEDS: busPIRone 5 MG Tablet 10 MG PO (10:43)
[2020-05-27] MEDS: Gabapentin 100 MG Capsule PO (10:44)
[2020-05-27] MEDS: Clopidogrel Bisulfate 75 MG Tablet PO (10:44)
[2020-05-27] MEDS: Cholecalciferol (VIT D3) 25 MCG TABLET (1,000 UNITS) PO (10:44)
[2020-05-27] MEDS: Venlafaxine XR 150 MG Capsule PO (10:44)
[2020-05-27] MEDS: Ascorbic Acid 500 MG Tablet 1000 MG PO (10:44)
[2020-05-27] MEDS: Carvedilol 12.5 MG Tablet PO (10:44)
[2020-05-27] MEDS: Folic Acid/Vitamin B Comp W-C 1 Capsule 1 CAP PO (10:48)
--- NOTE | 2020-05-27 11:10 | RAD_ITS ---
STUDY: X-RAY CHEST REASON FOR EXAM: Male, 60 years old. line placement -- in pacu TECHNIQUE: Single AP portable view of the chest. COMPARISON: None. FINDINGS: The lungs are clear and e Ill-defined subpleural groundglass opacities are seen more prominent in the lung bases , may represent atypical pneumonia or viral pneumonia (COVID-19 ?). xpanded. There is no demonstrated pleural abnormality. Normal size heart. Normal mediastinum and sachi. Normal visualized pulmonary arteries. Normal visualized aortic arch and descending thoracic aorta. Normal visualized thoracic spine. Normal visualized ribs, clavicles, and shoulders. There is no demonstrated abnormality of the visualized soft tissue structures of the upper abdomen. RAD/CXR for Line Placement IMPRESSION: Ill-defined subpleural groundglass opacities are seen more prominent in the lung bases , may represent atypical pneumonia or viral pneumonia (COVID-19 ?). Electronically Signed: Xavier Koenig MD at 12:17 EDT Tel , Service support ,
[2020-05-27 11:36] LABS: Bedside Glucose 139 mg/dL (70-110)
--- NOTE | 2020-05-27 13:27 | CASEMGMT ---
This RN CM [facility]. [place] GEOR[place]
[2020-05-27 14:34] LABS: Hepatitis B Surface Antibody Non-Reactive; Hepatitis B Surface Antigen Non-Reactive (Nonreactive)
[2020-05-27] MEDS: Insulin Lispro 100 UNIT/ML INSULN.PEN SC (16:27)
[2020-05-27 16:35] LABS: Bedside Glucose 197 mg/dL (70-110)
[2020-05-28] VITALS (21 sets, daily range): BP systolic 127–163; BP diastolic 61–78; PULSE 76–95; RESP 12–29; TEMP 36.6–37.2; O2SAT 93–100
--- NOTE | 2020-05-28 00:09 | DIALYSIS ---
Hemodialysis x 2.5hrs. stable 1st run. 2 units FFP given with tx. -2200ml off. CVC worked well. Closed with heparin. Report to Kristine LUNDY
--- NOTE | 2020-05-28 00:27 | CPS ---
pt declines use of bipap at this time, is in no resp distress
[2020-05-28] MEDS: hydrALAZINE 25 MG Tablet PO ×4 (00:37→21:58)
[2020-05-28] MEDS: Sodium Bicarbonate 650 MG Tablet PO ×3 (00:37→21:58)
[2020-05-28] MEDS: Atorvastatin Calcium 40 MG Tablet PO ×2 (00:37→21:58)
[2020-05-28] MEDS: Carvedilol 12.5 MG Tablet PO ×3 (00:37→21:58)
[2020-05-28] MEDS: Gabapentin 100 MG Capsule PO ×3 (00:37→21:58)
--- NOTE | 2020-05-28 00:41 | NURSING ---
Pt's 2200 medications for 05/27/20 were given late due to patient getting dialysis at the bedside.
[2020-05-28 00:45] LABS: Bedside Glucose 159 mg/dL (70-110)
[2020-05-28 05:36] LABS: Absolute Lymphocyte Count 1.13 X10^3/uL (0.83-4.51); Absolute Neutrophil Count 7.8 X10^3/uL (2.0-7.7); Basophil# 0.01 X10^3/uL; Basophil% 0.1 % (0-1); Eosinophil# 0.29 X10^3/uL; Eosinophils% 2.8 % (0-5); Hematocrit 24.5 % (40-54); Hemoglobin 7.8 g/dL (13.0-16.5); Lymphocyte # 1.13 X10^3/ul (4.0); Mean Corp Hgb Conc 31.8 g/dL (32-36); Mean Corpuscular Hgb 28.3 pg (27.0-32.0); Mean Corpuscular Volume 88.8 fL (80-94); Mean Platelet Vol. 10.7 fl (6.2-12.0); Monocyte# 0.99 X10^3/uL; Monocyte% 9.6 % (0-10); NRBC Flagged by Analyzer 0 % (0-5); Platelet Count 223 K/mm3 (150-450); RBC Distribution Width CV 15.1 % (11.6-14.6); RBC Distribution Width SD 48.6 fl (35.1-43.9); Red Blood Count 2.76 M/mm3 (4.6-6.2); White Blood Count 10.3 K/mm3 (4.4-11.0)
[2020-05-28 05:43] LABS: International Normalized Ratio 1.6; Prothrombin Time (Protime)PT. 18.4 SECONDS (11.7-14.9)
[2020-05-28 05:53] LABS: Albumin, Serum 2.8 g/dL (3.2-5.0); Anion Gap 9 (5-15); BUN 72 mg/dL (7-18); BUN/Creat Ratio 15.1 RATIO (10-20); Calcium,Total 8.5 mg/dL (8.5-10.1); Chloride 103 mmol/L (98-107); Creatinine, Serum 4.77 mg/dL (0.70-1.30); EST Glomerular Filtration Rate 13 mL/min (>60); Est Glom Filt Rate - Afr Amer 16 mL/min (>60); Estimated Creatinine Clearance 16.13 ml/min; Glucose 129 mg/dL (74-106); Phosphorus 3.8 mg/dL (2.5-4.9); Potassium 3.6 mmol/L (3.5-5.1); Sodium Level 137 mmol/L (136-145)
[2020-05-28] MEDS: Dicyclomine 10 MG Capsule 20 MG PO ×3 (05:59→16:59)
[2020-05-28 06:36] LABS: Bedside Glucose 116 mg/dL (70-110)
[2020-05-28] MEDS: Ipratropium/Albuterol Sulfate 3 ML AMPUL.NEB INHALATION ×3 (07:42→19:45)
--- NOTE | 2020-05-28 08:59 | DIALYSIS ---
Addendum entered by Ge Jensen 05/28/20 14:48: Report given to primary RNBabar Addendum entered by Ge Jensen 05/28/20 12:09: Hemodialysis complete. 3 hour run, 3k bath, net fluid removed = 3000 ml. Patient tolerated HD tx well. Right IJ CVC: Site benign, biofilm dressing dry and intact. Lumen flushed with NS, filled to volume with Heparin, clamped and capped. Next HD tx 04-28-2020. 3.5 hours, F180 NR dialyzer give Ferrlecit 125mg IV dose 2 of 5 Original Note: Report from primary RNBabar. Access: Right IJ CVC. Site benign, dressing dry and intact. Connections secure, hemosafe applied x 2.
--- NOTE | 2020-05-28 10:12 | CASEMGMT ---
RN DORIS NOTE: Call placed to [facility] and spoke w/Kevin, hardware installation coordinator, @ [phone]. Ext: [phone]. She states financial clearance is still pending. She states medical clearance is still pending as well, as Hep B results are still pending. She was provided w/charmaine RN CM contact # to call back if financial clearance is received today. She also has CHASE Lemus RN, CM, contact # to call if clearance is received on Monday. Hep B results to be faxed to [facility] when resulted. Vandana VILLARREALN RN CM
--- NOTE | 2020-05-28 10:16 | PN.RENAL_ITS ---
Patient Problems: Active and Suspected Problems Malnutrition (Suspected) Chest pain (Acute) (HFpEF) heart failure with preserved ejection fraction (Acute) Atrial fibrillation (Acute) Diastolic CHF, acute (Acute) CHF (congestive heart failure) (Acute) Subjective: seen on dialysis, no complaints, tolerating fluid removal well. - Physical Exam Vitals/I&O's: Vital Signs Temp Pulse Resp BP Pulse Ox 98.5 F 82 22 H 136/61 H 97 05/28/20 08:30 05/28/20 08:30 05/28/20 08:30 05/28/20 08:30 05/28/20 08:30 Oxygen Flow Rate (L/min) 3.5 Oxygen Delivery Method Nasal Cannula Weight: 150 kg Body Mass Index (BMI) 51.2 Intake and Output for Last 24 Hours 05/26/20 05/27/20 05/28/20 23:59 23:59 23:59 Intake Total 1130 / 1130 910.5 / 910.5 475 / 475 Output Total 625 / 625 2200 / 2200 Balance 505 / 505 -1289.5 / -1289.5 475 / 475 General: Alert, Oriented x3, Cooperative Lungs: Clear to auscultation Cardiovascular: Regular rate Abdomen: Bowel Sounds Present, Soft, Non Tender, Obese Extremities: No edema Psych/Mental Status: Normal Affect, Alert and oriented to time, place, person, mood and affect Microbiology Past 72 Hours 05/25/20 16:00 Interface Orders Urine Culture - Final Culture exhibits no growth. 05/25/20 05:00 Blood Culture (Wb) - Right Forearm Blood Culture - Preliminary No growth in 48 hours. 05/25/20 04:54 Blood Culture (Wb) - Anticubital Right Blood Culture - Preliminary No growth in 48 hours. Laboratory Results 05/23/20 12:10: Crossmatch See Detail 05/26/20 04:30: Hep Bs Antigen Non-Reactive, Hep Bs Antibody Non-Reactive 05/26/20 04:30: Hep B Core Total Ab Pending 05/27/20 11:12: POC Glucose 139 H 05/27/20 16:26: POC Glucose 197 H 05/28/20 00:34: POC Glucose 159 H 05/28/20 05:00: Sodium 137, Potassium 3.6, Chloride 103, Carbon Dioxide 25.0, Anion Gap 9, BUN 72 H, Creatinine 4.77 H, Estim Creat Clear Calc 16.13, Est GFR (MDRD) Af Amer 16 L, Est GFR (MDRD) Non-Af 13 L, BUN/Creatinine Ratio 15.1, Glucose 129 H, Calcium 8.5, Phosphorus 3.8, Albumin 2.8 L 05/28/20 05:00: PT 18.4 H, INR 1.6 05/28/20 05:00: WBC 10.3, RBC 2.76 L, Hgb 7.8 L, Hct 24.5 L, MCV 88.8, MCH 28.3, MCHC 31.8 L, RDW Std Deviation 48.6 H, RDW Coeff of Kassandra 15.1 H, Plt Count 223, MPV 10.7, Immature Gran % (Auto) 0.500, Neut % (Auto) 76.0 H, Lymph % (Auto) 11.0 L, Beadle % (Auto) 9.6, Eos % (Auto) 2.8, Baso % (Auto) 0.1, Absolute Neuts (auto) 7.8 H, Absolute Lymphs (auto) 1.13, Nucleated RBC % 0 05/28/20 06:33: POC Glucose 116 H Current Medications Acetaminophen (Acetaminophen 325 Mg Tablet) 650 mg PO Q6H PRN PRN PRN Reason: Pain Score 1-10/Temp > 100.7 F Last Admin: 05/25/20 16:40 Dose: 650 mg Documented by: Al Hydroxide/Mg Hydroxide (Mag Hydrox/Al Hydrox/Simeth 30 Ml Udc) 30 ml PO Q4H PRN PRN PRN Reason: DYSPEPSIA Last Admin: 05/23/20 21:00 Dose: 30 ml Documented by: Albuterol/Ipratropium (Ipratropium/Albuterol Sulfate 3 Ml Ampul.Neb) 3 ml INHALATION Q6HWA.RT DELIA Last Admin: 05/28/20 07:42 Dose: 3 ml Documented by: Ascorbic Acid (Ascorbic Acid 500 Mg Tablet) 1,000 mg PO DAILY [facility] Last Admin: 05/27/20 10:44 Dose: 1,000 mg Documented by: Atorvastatin Calcium (Atorvastatin Calcium 40 Mg Tablet) 40 mg PO QHS [facility] Last Admin: 05/28/20 00:37 Dose: 40 mg Documented by: Buspirone HCl (Buspirone 5 Mg Tablet) 10 mg PO DAILY [facility] Last Admin: 05/27/20 10:43 Dose: 10 mg Documented by: Calcitriol (Calcitriol 0.25 Mcg Capsule) 0.25 mcg PO DAILY [facility] Last Admin: 05/27/20 10:43 Dose: 0.25 mcg Documented by: Carvedilol (Carvedilol 12.5 Mg Tablet) 12.5 mg PO BID [facility] Last Admin: 05/28/20 00:37 Dose: 12.5 mg Documented by: Cholecalciferol (Cholecalciferol (Vit D3) 25 Mcg Tablet (1,000 Units)) 25 mcg PO DAILY [facility] Last Admin: 05/27/20 10:44 Dose: 25 mcg Documented by: Clopidogrel Bisulfate (Clopidogrel Bisulfate 75 Mg Tablet) 75 mg PO DAILY [facility] Last Admin: 05/27/20 10:44 Dose: 75 mg Documented by: Dextrose (Dextrose 50%-Water 25 Gm/50 Ml Disp.Syrin) 0 gm IV X1 PRN; Protocol PRN Reason: Hypoglycemia Dicyclomine HCl (Dicyclomine 10 Mg Capsule) 20 mg PO TIDAC [facility] Last Admin: 05/28/20 05:59 Dose: 20 mg Documented by: Furosemide (Furosemide 40 Mg Tablet) 40 mg PO BID@1000,1800 [facility] Last Admin: 05/27/20 16:29 Dose: 40 mg Documented by: Gabapentin (Gabapentin 100 Mg Capsule) 100 mg PO BID [facility] Last Admin: 05/28/20 00:37 Dose: 100 mg Documented by: Glucagon (Glucagon 1 Mg/Ml Syringe) 1 mg IM .X1 PRN PRN Reason: Hypoglycemia Hydralazine HCl (Hydralazine 25 Mg Tablet) 25 mg PO TID [facility] Last Admin: 05/28/20 06:00 Dose: 25 mg Documented by: Insulin Glargine (Insulin Glargine 100 Units/Ml Pen) 12 units SC QHS [facility] Last Admin: 05/28/20 00:38 Dose: 12 u Documented by: Insulin Human Lispro (Insulin Lispro 100 Unit/Ml Insuln.Pen) 0 unit SC TIDAC [facility]; Protocol Last Admin: 05/28/20 06:35 Dose: Not Given Documented by: Multi-Ingredient Cream (Mineral Oil/Petrolatum,White Jar) 1 applic TOPICAL BID PRN [facility]; Protocol Last Admin: 05/24/20 08:22 Dose: 1 applic Documented by: Multivit/Ca Carb/B Cmplx/FA/Prenat (Folic Acid/Vitamin B Comp W-C 1 Capsule) 1 capsule PO DAILY [facility] Last Admin: 05/27/20 10:48 Dose: 1 capsule Documented by: Multivitamins (Multivitamins,Therapeutic Tablet) 1 tablet PO DAILYCM [facility] Last Admin: 05/27/20 10:42 Dose: 1 tablet Documented by: Nifedipine (Nifedipine 90 Mg Tablet) 90 mg PO DAILY [facility] Last Admin: 05/27/20 10:43 Dose: 90 mg Documented by: Nitroglycerin (Nitroglycerin (Inpatient Use) 0.4 Mg Tab.Subl) 0.4 mg SL Q5M PRN PRN Reason: CARDIAC/CHEST PAIN Last Admin: 05/23/20 20:55 Dose: 0.4 mg Documented by: Pantoprazole Sodium (Pantoprazole Sodium 40 Mg Tablet) 40 mg PO DAILY [facility] Last Admin: 05/27/20 10:43 Dose: 40 mg Documented by: Pyridoxine HCl (Pyridoxine Hcl 100 Mg Tablet) 100 mg PO DAILY [facility] Last Admin: 05/27/20 10:43 Dose: 100 mg Documented by: Simethicone (Simethicone 80 Mg Tablet) 80 mg PO TIDPC [facility] Last Admin: 05/27/20 16:29 Dose: Not Given Documented by: Sodium Bicarbonate (Sodium Bicarbonate 650 Mg Tablet) 650 mg PO BID [facility] Last Admin: 05/28/20 00:37 Dose: 650 mg Documented by: Sodium Chloride (0.9% Saline Lock 10 Ml Syringe) 10 - 40 ml IV UD PRN PRN Reason: SALINE FLUSH Last Admin: 05/25/20 17:12 Dose: 10 ml Documented by: Venlafaxine HCl (Venlafaxine Xr 150 Mg Capsule) 150 mg PO DAILY [facility] Last Admin: 05/27/20 10:44 Dose: 150 mg Documented by: Medical Necessity - Tobacco Use Smoking Status: Former smoker - Quit 2000 Assessment/Plan All Active Problems Chronic 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 (Resolved) Ulcer of left lower extremity with fat layer exposed (Resolved) Chest pain (Acute) (HFpEF) heart failure with preserved ejection fraction (Acute) Atrial fibrillation (Acute) Diastolic CHF, acute (Acute) CHF (congestive heart failure) (Acute) 1. ESRD on HD #2 today with temp dialysis catheter. Fluid removal as tolerated. Tunneled dialysis cahteter placement prior to discharge by surgery. 2. Diastolic HF fluid removal on dialysis as tolerated. 3. 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 Hx pafib in SR 5. Hx DVT LLE hold anticoagulation 6. Iron def anemia iv iron load on dialysis. 7. Morbid obesity 8. PTH 376. Started calcitriol.
[2020-05-28 11:41] LABS: Bedside Glucose 86 mg/dL (70-110)
--- NOTE | 2020-05-28 11:57 | PN.SURG_ITS ---
Patient Problems: Active and Suspected Problems Malnutrition (Suspected) Chest pain (Acute) (HFpEF) heart failure with preserved ejection fraction (Acute) Atrial fibrillation (Acute) Diastolic CHF, acute (Acute) CHF (congestive heart failure) (Acute) Subjective: The patient tolerated dialysis yesterday and is undergoing dialysis today. There have been no issues with the catheter. - Physical Exam Vitals/I&O's: Vital Signs Temp Pulse Resp BP Pulse Ox 98.5 F 82 22 H 136/61 H 97 05/28/20 08:30 05/28/20 08:30 05/28/20 08:30 05/28/20 08:30 05/28/20 08:30 Oxygen Flow Rate (L/min) 3.5 Oxygen Delivery Method Nasal Cannula Weight: 330 lb 11.094 oz Body Mass Index (BMI) 51.2 Intake and Output for Last 24 Hours 05/26/20 05/27/20 05/28/20 23:59 23:59 23:59 Intake Total 1130 / 1130 910.5 / 910.5 475 / 475 Output Total 625 / 625 2200 / 2200 Balance 505 / 505 -1289.5 / -1289.5 475 / 475 General: Alert, Oriented x3 Cardiovascular: Regular rate, Regular Rhythm Abdomen: Soft, Non Tender, Non-Distended Microbiology Past 72 Hours 05/25/20 16:00 Interface Orders Urine Culture - Final Culture exhibits no growth. 05/25/20 05:00 Blood Culture (Wb) - Right Forearm Blood Culture - Preliminary No growth in 48 hours. 05/25/20 04:54 Blood Culture (Wb) - Anticubital Right Blood Culture - Preliminary No growth in 48 hours. Laboratory Results 05/23/20 12:10: Crossmatch See Detail 05/26/20 04:30: Hep Bs Antigen Non-Reactive, Hep Bs Antibody Non-Reactive 05/26/20 04:30: Hep B Core Total Ab Pending 05/27/20 16:26: POC Glucose 197 H 05/28/20 00:34: POC Glucose 159 H 05/28/20 05:00: Sodium 137, Potassium 3.6, Chloride 103, Carbon Dioxide 25.0, Anion Gap 9, BUN 72 H, Creatinine 4.77 H, Estim Creat Clear Calc 16.13, Est GFR (MDRD) Af Amer 16 L, Est GFR (MDRD) Non-Af 13 L, BUN/Creatinine Ratio 15.1, Glucose 129 H, Calcium 8.5, Phosphorus 3.8, Albumin 2.8 L 05/28/20 05:00: PT 18.4 H, INR 1.6 05/28/20 05:00: WBC 10.3, RBC 2.76 L, Hgb 7.8 L, Hct 24.5 L, MCV 88.8, MCH 28.3, MCHC 31.8 L, RDW Std Deviation 48.6 H, RDW Coeff of Kassandra 15.1 H, Plt Count 223, MPV 10.7, Immature Gran % (Auto) 0.500, Neut % (Auto) 76.0 H, Lymph % (Auto) 11.0 L, Hood % (Auto) 9.6, Eos % (Auto) 2.8, Baso % (Auto) 0.1, Absolute Neuts (auto) 7.8 H, Absolute Lymphs (auto) 1.13, Nucleated RBC % 0 05/28/20 06:33: POC Glucose 116 H 05/28/20 11:19: POC Glucose 86 Current Medications Acetaminophen (Acetaminophen 325 Mg Tablet) 650 mg PO Q6H PRN PRN PRN Reason: Pain Score 1-10/Temp > 100.7 F Last Admin: 05/25/20 16:40 Dose: 650 mg Documented by: Al Hydroxide/Mg Hydroxide (Mag Hydrox/Al Hydrox/Simeth 30 Ml Udc) 30 ml PO Q4H PRN PRN PRN Reason: DYSPEPSIA Last Admin: 05/23/20 21:00 Dose: 30 ml Documented by: Albuterol/Ipratropium (Ipratropium/Albuterol Sulfate 3 Ml Ampul.Neb) 3 ml INHALATION Q6HWA.RT [facility] Last Admin: 05/28/20 07:42 Dose: 3 ml Documented by: Ascorbic Acid (Ascorbic Acid 500 Mg Tablet) 1,000 mg PO DAILY [facility] Last Admin: 05/27/20 10:44 Dose: 1,000 mg Documented by: Atorvastatin Calcium (Atorvastatin Calcium 40 Mg Tablet) 40 mg PO QHS [facility] Last Admin: 05/28/20 00:37 Dose: 40 mg Documented by: Buspirone HCl (Buspirone 5 Mg Tablet) 10 mg PO DAILY [facility] Last Admin: 05/27/20 10:43 Dose: 10 mg Documented by: Calcitriol (Calcitriol 0.25 Mcg Capsule) 0.25 mcg PO DAILY [facility] Last Admin: 05/27/20 10:43 Dose: 0.25 mcg Documented by: Carvedilol (Carvedilol 12.5 Mg Tablet) 12.5 mg PO BID [facility] Last Admin: 05/28/20 00:37 Dose: 12.5 mg Documented by: Cholecalciferol (Cholecalciferol (Vit D3) 25 Mcg Tablet (1,000 Units)) 25 mcg PO DAILY [facility] Last Admin: 05/27/20 10:44 Dose: 25 mcg Documented by: Clopidogrel Bisulfate (Clopidogrel Bisulfate 75 Mg Tablet) 75 mg PO DAILY [facility] Last Admin: 05/27/20 10:44 Dose: 75 mg Documented by: Dextrose (Dextrose 50%-Water 25 Gm/50 Ml Disp.Syrin) 0 gm IV X1 PRN; Protocol PRN Reason: Hypoglycemia Dicyclomine HCl (Dicyclomine 10 Mg Capsule) 20 mg PO TIDAC [facility] Last Admin: 05/28/20 05:59 Dose: 20 mg Documented by: Furosemide (Furosemide 40 Mg Tablet) 40 mg PO BID@1000,1800 [facility] Last Admin: 05/27/20 16:29 Dose: 40 mg Documented by: Gabapentin (Gabapentin 100 Mg Capsule) 100 mg PO BID [facility] Last Admin: 05/28/20 00:37 Dose: 100 mg Documented by: Glucagon (Glucagon 1 Mg/Ml Syringe) 1 mg IM .X1 PRN PRN Reason: Hypoglycemia Hydralazine HCl (Hydralazine 25 Mg Tablet) 25 mg PO TID [facility] Last Admin: 05/28/20 06:00 Dose: 25 mg Documented by: Insulin Glargine (Insulin Glargine 100 Units/Ml Pen) 12 units SC QHS [facility] Last Admin: 05/28/20 00:38 Dose: 12 u Documented by: Insulin Human Lispro (Insulin Lispro 100 Unit/Ml Insuln.Pen) 0 unit SC TIDAC [facility]; Protocol Last Admin: 05/28/20 06:35 Dose: Not Given Documented by: Multi-Ingredient Cream (Mineral Oil/Petrolatum,White Jar) 1 applic TOPICAL BID PRN [facility]; Protocol Last Admin: 05/24/20 08:22 Dose: 1 applic Documented by: Multivit/Ca Carb/B Cmplx/FA/Prenat (Folic Acid/Vitamin B Comp W-C 1 Capsule) 1 capsule PO DAILY [facility] Last Admin: 05/27/20 10:48 Dose: 1 capsule Documented by: Multivitamins (Multivitamins,Therapeutic Tablet) 1 tablet PO DAILYCM [facility] Last Admin: 05/27/20 10:42 Dose: 1 tablet Documented by: Nifedipine (Nifedipine 90 Mg Tablet) 90 mg PO DAILY [facility] Last Admin: 05/27/20 10:43 Dose: 90 mg Documented by: Nitroglycerin (Nitroglycerin (Inpatient Use) 0.4 Mg Tab.Subl) 0.4 mg SL Q5M PRN PRN Reason: CARDIAC/CHEST PAIN Last Admin: 05/23/20 20:55 Dose: 0.4 mg Documented by: Pantoprazole Sodium (Pantoprazole Sodium 40 Mg Tablet) 40 mg PO DAILY [facility] Last Admin: 05/27/20 10:43 Dose: 40 mg Documented by: Pyridoxine HCl (Pyridoxine Hcl 100 Mg Tablet) 100 mg PO DAILY [facility] Last Admin: 05/27/20 10:43 Dose: 100 mg Documented by: Simethicone (Simethicone 80 Mg Tablet) 80 mg PO TIDPC [facility] Last Admin: 05/27/20 16:29 Dose: Not Given Documented by: Sodium Bicarbonate (Sodium Bicarbonate 650 Mg Tablet) 650 mg PO BID [facility] Last Admin: 05/28/20 00:37 Dose: 650 mg Documented by: Sodium Chloride (0.9% Saline Lock 10 Ml Syringe) 10 - 40 ml IV UD PRN PRN Reason: SALINE FLUSH Last Admin: 05/25/20 17:12 Dose: 10 ml Documented by: Venlafaxine HCl (Venlafaxine Xr 150 Mg Capsule) 150 mg PO DAILY [facility] Last Admin: 05/27/20 10:44 Dose: 150 mg Documented by: Medical Necessity - Tobacco Use Smoking Status: Former smoker - Quit 2000 Assessment/Plan All Active Problems Chronic 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 (Resolved) Ulcer of left lower extremity with fat layer exposed (Resolved) Chest pain (Acute) (HFpEF) heart failure with preserved ejection fraction (Acute) Atrial fibrillation (Acute) Diastolic CHF, acute (Acute) CHF (congestive heart failure) (Acute) 60-year-old male with acute on chronic kidney injury. 1. The patient reports that he is tolerating dialysis. The patient needs a tunneled catheter placed before discharge. I was unable to get him into the OR schedule tomorrow so I will place a tunneled catheter on Monday. Plan to remove the temporary catheter Monday. Niles Louise MD Pager: [facility] [address] [place] [address], [address] [place] [address] Office:
[2020-05-28] MEDS: Heparin 10,000 UNITS/10 ML Vial 2800 UNITS IV (12:18)
[2020-05-28] MEDS: Folic Acid/Vitamin B Comp W-C 1 Capsule 1 CAP PO (12:18)
[2020-05-28] MEDS: NIFEdipine 90 MG Tablet PO (12:18)
[2020-05-28] MEDS: busPIRone 5 MG Tablet 10 MG PO (12:20)
[2020-05-28] MEDS: Multivitamins,Therapeutic Tablet 1 TABLET PO (12:20)
[2020-05-28] MEDS: Furosemide 40 MG Tablet PO ×2 (12:20→16:59)
[2020-05-28] MEDS: Calcitriol 0.25 MCG Capsule PO (12:20)
[2020-05-28] MEDS: Ascorbic Acid 500 MG Tablet 1000 MG PO (12:20)
[2020-05-28] MEDS: Pyridoxine HCl 100 MG Tablet PO (12:20)
[2020-05-28] MEDS: Venlafaxine XR 150 MG Capsule PO (12:20)
[2020-05-28] MEDS: Pantoprazole Sodium 40 MG Tablet PO (12:21)
[2020-05-28] MEDS: Cholecalciferol (VIT D3) 25 MCG TABLET (1,000 UNITS) PO (12:21)
[2020-05-28] MEDS: Clopidogrel Bisulfate 75 MG Tablet PO (12:29)
--- NOTE | 2020-05-28 12:46 | PN_ITS ---
Patient Problems: Active and Suspected Problems Malnutrition (Suspected) Chest pain (Acute) (HFpEF) heart failure with preserved ejection fraction (Acute) Atrial fibrillation (Acute) Diastolic CHF, acute (Acute) CHF (congestive heart failure) (Acute) Subjective: The patient was seen and examined at the bedside this morning. Events from the last 24 hours have been reviewed. The patient is currently afebrile, hemodynamically stable and maintaining appropriate oxygen saturations on 3 L/min via nasal cannula. The patient underwent successful dialysis last night. 2.2 L of fluid was removed. The patient once again declined to utilize BiPAP overnight. His breathing quality is otherwise stable. Objective: The patient's most recent lab work, culture data and imaging studies have all been personally reviewed. Surface echocardiogram revealed moderate concentric LVH with an ejection fraction of 60% and stage II diastolic dysfunction. Pulmonary artery systolic pressure was estimated to be 42 mmHg. Rapid coronavirus antigen testing was negative. Blood and urine cultures have shown no growth to date. - Physical Exam Vitals/I&O's: Vital Signs Temp Pulse Resp BP Pulse Ox 98.5 F 95 20 H 156/78 H 95 05/28/20 12:03 05/28/20 12:03 05/28/20 12:03 05/28/20 12:03 05/28/20 12:03 Oxygen Flow Rate (L/min) 3.5 Oxygen Delivery Method Nasal Cannula Weight: 330 lb 11.094 oz Body Mass Index (BMI) 51.2 Intake and Output for Last 24 Hours 05/26/20 05/27/20 05/28/20 23:59 23:59 23:59 Intake Total 1130 / 1130 910.5 / 910.5 475 / 475 Output Total 625 / 625 2200 / 2200 3000 / 3000 Balance 505 / 505 -1289.5 / -1289.5 -2525 / -2525 General: Alert, No apparent distress HEENT: Atraumatic, Normocephalic Oral: Moist Mucosa, No Gingival or Mucosal Lesions/ Ulcerations Neck: Supple, No Nodes, Trachea Midline Lungs: No rhonchi, No wheeze, No rales, Diminished Cardiovascular: Regular rate, Normal S1, Normal S2, No murmurs Abdomen: Bowel Sounds Present, Soft, Non Tender, Obese Extremities: No clubbing, No cyanosis, No edema Skin: No breakdown Musculoskeletal: No Tenderness to Palpation of Joints or Extremities Lymphatic: No Cervical, Supraclavicular, or Inguinal Adenopathy Neurological: Neuro grossly intact Psych/Mental Status: Normal Affect, Appropriate Labs (Last 48 Hours) 05/23/20 05/26/20 05/26/20 12:10 04:30 04:30 WBC RBC Hgb Hct MCV MCH MCHC RDW Std Deviation RDW Coeff of Kassandra Plt Count MPV Immature Gran % (Auto) Neut % (Auto) Lymph % (Auto) [place] % (Auto) Eos % (Auto) Baso % (Auto) Absolute Neuts (auto) Absolute Lymphs (auto) Nucleated RBC % PT INR Sodium Potassium Chloride Carbon Dioxide Anion Gap BUN Creatinine Estim Creat Clear Calc Est GFR (MDRD) Af Amer Est GFR (MDRD) Non-Af BUN/Creatinine Ratio Glucose Calcium Phosphorus Albumin Hep Bs Antigen Non-Reactive Hep Bs Antibody Non-Reactive Hep B Core Total Ab Pending POC Glucose Blood Type Antibody Screen Crossmatch See Detail 05/26/20 05/26/20 05/27/20 16:34 22:49 05:14 WBC RBC Hgb Hct MCV MCH MCHC RDW Std Deviation RDW Coeff of Kassandra Plt Count MPV Immature Gran % (Auto) Neut % (Auto) Lymph % (Auto) [place] % (Auto) Eos % (Auto) Baso % (Auto) Absolute Neuts (auto) Absolute Lymphs (auto) Nucleated RBC % PT INR Sodium 141 Potassium 4.0 Chloride 108 H Carbon Dioxide 21.0 Anion Gap 12 BUN 100 H Creatinine 6.15 H Estim Creat Clear Calc 12.51 Est GFR (MDRD) Af Amer 12 L Est GFR (MDRD) Non-Af 10 L BUN/Creatinine Ratio 16.3 Glucose 153 H Calcium 8.2 L Phosphorus 5.2 H Albumin 2.8 L Hep Bs Antigen Hep Bs Antibody Hep B Core Total Ab POC Glucose 314 H 206 H Blood Type Antibody Screen Crossmatch 05/27/20 05/27/20 05/27/20 05:14 05:14 06:41 WBC 11.0 RBC 2.67 L Hgb 7.5 L Hct 24.0 L MCV 89.9 MCH 28.1 MCHC 31.3 L RDW Std Deviation 50.4 H RDW Coeff of Kassandra 15.3 H Plt Count 193 MPV 10.4 Immature Gran % (Auto) 0.300 Neut % (Auto) 73.2 H Lymph % (Auto) 16.7 L [place] % (Auto) 7.6 Eos % (Auto) 2.0 Baso % (Auto) 0.2 Absolute Neuts (auto) 8.0 H Absolute Lymphs (auto) 1.83 Nucleated RBC % 0 PT 34.9 H INR 3.6 Sodium Potassium Chloride Carbon Dioxide Anion Gap BUN Creatinine Estim Creat Clear Calc Est GFR (MDRD) Af Amer Est GFR (MDRD) Non-Af BUN/Creatinine Ratio Glucose Calcium Phosphorus Albumin Hep Bs Antigen Hep Bs Antibody Hep B Core Total Ab POC Glucose 139 H Blood Type Antibody Screen Crossmatch 05/27/20 05/27/20 05/27/20 08:00 11:12 16:26 WBC RBC Hgb Hct MCV MCH MCHC RDW Std Deviation RDW Coeff of Kassandra Plt Count MPV Immature Gran % (Auto) Neut % (Auto) Lymph % (Auto) [place] % (Auto) Eos % (Auto) Baso % (Auto) Absolute Neuts (auto) Absolute Lymphs (auto) Nucleated RBC % PT INR Sodium Potassium Chloride Carbon Dioxide Anion Gap BUN Creatinine Estim Creat Clear Calc Est GFR (MDRD) Af Amer Est GFR (MDRD) Non-Af BUN/Creatinine Ratio Glucose Calcium Phosphorus Albumin Hep Bs Antigen Hep Bs Antibody Hep B Core Total Ab POC Glucose 139 H 197 H Blood Type A POSITIVE Antibody Screen NEGATIVE Crossmatch 05/28/20 05/28/20 05/28/20 00:34 05:00 05:00 WBC RBC Hgb Hct MCV MCH MCHC RDW Std Deviation RDW Coeff of Kassandra Plt Count MPV Immature Gran % (Auto) Neut % (Auto) Lymph % (Auto) [place] % (Auto) Eos % (Auto) Baso % (Auto) Absolute Neuts (auto) Absolute Lymphs (auto) Nucleated RBC % PT 18.4 H INR 1.6 Sodium 137 Potassium 3.6 Chloride 103 Carbon Dioxide 25.0 Anion Gap 9 BUN 72 H Creatinine 4.77 H Estim Creat Clear Calc 16.13 Est GFR (MDRD) Af Amer 16 L Est GFR (MDRD) Non-Af 13 L BUN/Creatinine Ratio 15.1 Glucose 129 H Calcium 8.5 Phosphorus 3.8 Albumin 2.8 L Hep Bs Antigen Hep Bs Antibody Hep B Core Total Ab POC Glucose 159 H Blood Type Antibody Screen Crossmatch 05/28/20 05/28/20 05/28/20 05:00 06:33 11:19 WBC 10.3 RBC 2.76 L Hgb 7.8 L Hct 24.5 L MCV 88.8 MCH 28.3 MCHC 31.8 L RDW Std Deviation 48.6 H RDW Coeff of Kassandra 15.1 H Plt Count 223 MPV 10.7 Immature Gran % (Auto) 0.500 Neut % (Auto) 76.0 H Lymph % (Auto) 11.0 L [place] % (Auto) 9.6 Eos % (Auto) 2.8 Baso % (Auto) 0.1 Absolute Neuts (auto) 7.8 H Absolute Lymphs (auto) 1.13 Nucleated RBC % 0 PT INR Sodium Potassium Chloride Carbon Dioxide Anion Gap BUN Creatinine Estim Creat Clear Calc Est GFR (MDRD) Af Amer Est GFR (MDRD) Non-Af BUN/Creatinine Ratio Glucose Calcium Phosphorus Albumin Hep Bs Antigen Hep Bs Antibody Hep B Core Total Ab POC Glucose 116 H 86 Blood Type Antibody Screen Crossmatch Microbiology 05/25/20 16:00 Interface Orders Urine Culture - Final Culture exhibits no growth. 05/25/20 05:00 Blood Culture (Wb) - Right Forearm Blood Culture - Preliminary No growth in 48 hours. 05/25/20 04:54 Blood Culture (Wb) - Anticubital Right Blood Culture - Preliminary No growth in 48 hours. Clinical Impression(s) from Imaging Studies Chest X-Ray 05/23/20 08:50 IMPRESSION: Cardiomegaly and pulmonary venous congestion. Superimposed mild infiltrate in right lung base is difficult to entirely exclude. Electronically Signed: Nate Bobby MD at 9:23 EDT Tel , Service support , Echocardiogram 05/23/20 11:42 Interpretation Summary Normal LV size. Moderate concentric left ventricular hypertrophy. Left ventricular systolic function is normal. The estimated ejection fraction is 60 %. Stage 2 diastolic dysfunction. Pulmonary artery systolic pressure is 42 mmHg. Mild pulmonary hypertension. Small pericardial effusion. There are no echocardiographic indications of cardiac tamponade. Ordering Physician: Immanuel Ken Referring Physician: Yola Ng Performed By: Brisa Franklin RDCS, RVT Chest X-Ray 05/25/20 04:35 IMPRESSION: Worsening asymmetric vascular congestion and/or bilateral pneumonia. Stable cardiomegaly. Electronically Signed: Skyler Graham MD at 6:19 EDT , Service support , Renal Ultrasound 05/25/20 05:55 IMPRESSION: No obstructive uropathy or suspicious solid renal lesion Nonobstructing left nephrolithiasis Bladder diverticulum Electronically Signed: Giovanni Huston MD at 10:19 EDT , Service support , Saphenous Venous Mapping 05/25/20 07:59 Interpretation Summary Dimensions of bilateral cephalic and basilic veins bilaterally IV is noted in a potential fistula vein--the cephalic vein of the left wrist. Increased velocity flow bilateral brachial and radial arteries. Ordering Physician: Lillian Acharya Referring Physician: Yola Ng M.D. Performed By: Alyssa Mcgrath RVT ? Chest X-Ray 05/27/20 11:10 IMPRESSION: Ill-defined subpleural groundglass opacities are seen more prominent in the lung bases , may represent atypical pneumonia or viral pneumonia (COVID-19 ?). Electronically Signed: Xavier Koenig MD at 12:17 EDT Tel , Service support , Current Medications Acetaminophen (Acetaminophen 325 Mg Tablet) 650 mg PO Q6H PRN PRN PRN Reason: Pain Score 1-10/Temp > 100.7 F Last Admin: 05/25/20 16:40 Dose: 650 mg Documented by: Al Hydroxide/Mg Hydroxide (Mag Hydrox/Al Hydrox/Simeth 30 Ml Udc) 30 ml PO Q4H PRN PRN PRN Reason: DYSPEPSIA Last Admin: 05/23/20 21:00 Dose: 30 ml Documented by: Albuterol/Ipratropium (Ipratropium/Albuterol Sulfate 3 Ml Ampul.Neb) 3 ml INHALATION Q6HWA.RT [facility] Last Admin: 05/28/20 07:42 Dose: 3 ml Documented by: Ascorbic Acid (Ascorbic Acid 500 Mg Tablet) 1,000 mg PO DAILY [facility] Last Admin: 05/28/20 12:20 Dose: 1,000 mg Documented by: Atorvastatin Calcium (Atorvastatin Calcium 40 Mg Tablet) 40 mg PO QHS [facility] Last Admin: 05/28/20 00:37 Dose: 40 mg Documented by: Buspirone HCl (Buspirone 5 Mg Tablet) 10 mg PO DAILY [facility] Last Admin: 05/28/20 12:20 Dose: 10 mg Documented by: Calcitriol (Calcitriol 0.25 Mcg Capsule) 0.25 mcg PO DAILY [facility] Last Admin: 05/28/20 12:20 Dose: 0.25 mcg Documented by: Carvedilol (Carvedilol 12.5 Mg Tablet) 12.5 mg PO BID [facility] Last Admin: 05/28/20 12:20 Dose: 12.5 mg Documented by: Cholecalciferol (Cholecalciferol (Vit D3) 25 Mcg Tablet (1,000 Units)) 25 mcg PO DAILY [facility] Last Admin: 05/28/20 12:21 Dose: 25 mcg Documented by: Clopidogrel Bisulfate (Clopidogrel Bisulfate 75 Mg Tablet) 75 mg PO DAILY [facility] Last Admin: 05/28/20 12:29 Dose: 75 mg Documented by: Dextrose (Dextrose 50%-Water 25 Gm/50 Ml Disp.Syrin) 0 gm IV X1 PRN; Protocol PRN Reason: Hypoglycemia Dicyclomine HCl (Dicyclomine 10 Mg Capsule) 20 mg PO TIDAC [facility] Last Admin: 05/28/20 12:18 Dose: 20 mg Documented by: Furosemide (Furosemide 40 Mg Tablet) 40 mg PO BID@1000,1800 [facility] Last Admin: 05/28/20 12:20 Dose: 40 mg Documented by: Gabapentin (Gabapentin 100 Mg Capsule) 100 mg PO BID [facility] Last Admin: 05/28/20 12:20 Dose: 100 mg Documented by: Glucagon (Glucagon 1 Mg/Ml Syringe) 1 mg IM .X1 PRN PRN Reason: Hypoglycemia Hydralazine HCl (Hydralazine 25 Mg Tablet) 25 mg PO TID [facility] Last Admin: 05/28/20 06:00 Dose: 25 mg Documented by: Insulin Glargine (Insulin Glargine 100 Units/Ml Pen) 12 units SC QHS [facility] Last Admin: 05/28/20 00:38 Dose: 12 u Documented by: Insulin Human Lispro (Insulin Lispro 100 Unit/Ml Insuln.Pen) 0 unit SC TIDAC [facility]; Protocol Last Admin: 05/28/20 12:21 Dose: Not Given Documented by: Multi-Ingredient Cream (Mineral Oil/Petrolatum,White Jar) 1 applic TOPICAL BID PRN [facility]; Protocol Last Admin: 05/24/20 08:22 Dose: 1 applic Documented by: Multivit/Ca Carb/B Cmplx/FA/Prenat (Folic Acid/Vitamin B Comp W-C 1 Capsule) 1 capsule PO DAILY [facility] Last Admin: 05/28/20 12:18 Dose: 1 capsule Documented by: [facility]ivit[facility] ([facility]) [facility] Last Admin: 05/28/20 12:20 Dose: 1 tablet Documented by: Nifedipine (Nifedipine 90 Mg Tablet) 90 mg PO DAILY [facility] Last Admin: 05/28/20 12:18 Dose: 90 mg Documented by: Nitroglycerin (Nitroglycerin (Inpatient Use) 0.4 Mg Tab.Subl) 0.4 mg SL Q5M PRN PRN Reason: CARDIAC/CHEST PAIN Last Admin: 05/23/20 20:55 Dose: 0.4 mg Documented by: Pantoprazole Sodium (Pantoprazole Sodium 40 Mg Tablet) 40 mg PO DAILY [facility] Last Admin: 05/28/20 12:21 Dose: 40 mg Documented by: Pyridoxine HCl (Pyridoxine Hcl 100 Mg Tablet) 100 mg PO DAILY [facility] Last Admin: 05/28/20 12:20 Dose: 100 mg Documented by: Simethicone (Simethicone 80 Mg Tablet) 80 mg PO TIDPC [facility] Last Admin: 05/28/20 12:18 Dose: 80 mg Documented by: Sodium Bicarbonate (Sodium Bicarbonate 650 Mg Tablet) 650 mg PO BID [facility] Last Admin: 05/28/20 12:19 Dose: 650 mg Documented by: Sodium Chloride (0.9% Saline Lock 10 Ml Syringe) 10 - 40 ml IV UD PRN PRN Reason: SALINE FLUSH Last Admin: 05/25/20 17:12 Dose: 10 ml Documented by: Venlafaxine HCl (Venlafaxine Xr 150 Mg Capsule) 150 mg PO DAILY [facility] Last Admin: 05/28/20 12:20 Dose: 150 mg Documented by: Medical Necessity - Tobacco Use Smoking Status: Former smoker - Quit 2000 Assessment/Plan All Active Problems Chronic 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 (Resolved) Ulcer of left lower extremity with fat layer exposed (Resolved) Chest pain (Acute) (HFpEF) heart failure with preserved ejection fraction (Acute) Atrial fibrillation (Acute) Diastolic CHF, acute (Acute) CHF (congestive heart failure) (Acute) RECOMMENDATIONS: 1. Continue hemodialysis with volume removal per nephrology recommendations. 2. Continue to wean supplemental oxygen to maintain saturations at or above 90%. 3. Continue to monitor H&H daily. Plan to transfuse if hemoglobin drops below 7 g/dL. 4. Recommend empiric use of BiPAP while sleeping. 5. Continue scheduled bronchodilator therapy while awake. 6. Encourage incentive spirometer use and mobilize patient as tolerated. 7. Recommend outpatient pulmonary follow-up so that baseline PFTs and polysomnogram can be completed. IMPRESSIONS: 1. Acute hypoxemic respiratory failure with concern for decompensated heart failure Clinical concern for acute decompensated heart failure based upon clinical presentation and radiographic findings. The patient initially responded to IV diuretic therapy but due to renal function, had to be started on hemodialysis. Plan to continue to wean supplemental oxygen to maintain saturations at or above 90%. Encourage incentive spirometer use and mobilize patient as tolerated. Continue scheduled bronchodilator therapy while awake, given prior smoking history. 2. Anemia Unclear etiology. No overt signs of blood loss. The patient previously had a hemoglobin of 11.3 g/dL 1 year ago. Although the patient was transfused 3 units of packed red blood cells, hemoglobin is still low. Recommend continuing to monitor H&H daily. Transfuse if hemoglobin drops below 7 g/dL. Continue daily PPI therapy. 3. Acute on chronic kidney disease Possibly related to underlying medical renal disease coupled with overdiuresis. Nephrology is currently following to assist with hemodialysis needs. 4. Obesity/diabetes/coronary artery disease/atrial fibrillation/untreated obs tructive sleep apnea Complicates care, management, recovery and prognosis. As noted above, recommend empiric use of BiPAP therapy on a nightly basis. This note was generated with [employer] dictation software. It may contain incorrect words, spelling, and punctuation that were not noted in checking the note before signing. Inpatient E&M: 70082 Subs Hosp L2
--- NOTE | 2020-05-28 15:07 | PN_ITS ---
Patient Problems: Active and Suspected Problems Malnutrition (Suspected) Chest pain (Acute) (HFpEF) heart failure with preserved ejection fraction (Acute) Atrial fibrillation (Acute) Diastolic CHF, acute (Acute) CHF (congestive heart failure) (Acute) Reason for Visit: Follow-up for CHF exacerbation, CKD stage V and fluid overload Objective: Patient is undergoing hemodialysis. Had hemodialysis yesterday. Plan for 3 L fluid removal today. Patient states no difference in breathing on dialysis yet. Physical exam General: Alert, Oriented x3, Cooperative, morbid obesity BMI 50.4 kg/m? HEENT: Atraumatic, PERRLA, EOMI, Normocephalic Oral: No Gingival or Mucosal Lesions/ Ulcerations Neck: Supple, No JVD, Negative Carotid Bruits Lungs: Air entry diminished in bilateral lung bases. No crepitations. Expiratory rhonchi present. On 4 L of oxygen. Cardiovascular: Irregular heart rate with multiple PACs. Normal S1, Normal S2, systolic murmur over LLSB and right second ICS Abdomen: Bowel Sounds Present, Soft, Non Tender, Non-Distended : No renal angle tenderness. No suprapubic tenderness. Extremities: Bilateral lower extremity edema , Capillary Refill Less than 3 Seconds Skin: No rashes, No breakdown Musculoskeletal: No Tenderness to Palpation of Joints or Extremities Neurological: Cranial nerves II-XII grossly intact, Deep Tendon Reflexes 2+/4 and Symmetrical, Neuro grossly intact Psych/Mental Status: Normal Affect, Appropriate. Vitals/I&O's: Vital Signs Temp Pulse Resp BP Pulse Ox 99 F 86 26 H 148/67 H 100 05/28/20 14:09 05/28/20 14:36 05/28/20 14:09 05/28/20 14:36 05/28/20 14:13 Oxygen Flow Rate (L/min) 4 Oxygen Delivery Method Nasal Cannula Weight: 330 lb 11.094 oz Body Mass Index (BMI) 51.2 Intake and Output for Last 24 Hours 05/26/20 05/27/20 05/28/20 23:59 23:59 23:59 Intake Total 1130 / 1130 910.5 / 910.5 475 / 475 Output Total 625 / 625 2200 / 2200 3000 / 3000 Balance 505 / 505 -1289.5 / -1289.5 -2525 / -2525 Microbiology Past 72 Hours 05/25/20 16:00 Interface Orders Urine Culture - Final Culture exhibits no growth. 05/25/20 05:00 Blood Culture (Wb) - Right Forearm Blood Culture - Preliminary No growth in 48 hours. 05/25/20 04:54 Blood Culture (Wb) - Anticubital Right Blood Culture - Preliminary No growth in 48 hours. Laboratory Results 05/23/20 12:10: Crossmatch See Detail 05/27/20 16:26: POC Glucose 197 H 05/28/20 00:34: POC Glucose 159 H 05/28/20 05:00: Sodium 137, Potassium 3.6, Chloride 103, Carbon Dioxide 25.0, Anion Gap 9, BUN 72 H, Creatinine 4.77 H, Estim Creat Clear Calc 16.13, Est GFR (MDRD) Af Amer 16 L, Est GFR (MDRD) Non-Af 13 L, BUN/Creatinine Ratio 15.1, Glucose 129 H, Calcium 8.5, Phosphorus 3.8, Albumin 2.8 L 05/28/20 05:00: PT 18.4 H, INR 1.6 05/28/20 05:00: WBC 10.3, RBC 2.76 L, Hgb 7.8 L, Hct 24.5 L, MCV 88.8, MCH 28.3, MCHC 31.8 L, RDW Std Deviation 48.6 H, RDW Coeff of Kassandra 15.1 H, Plt Count 223, MPV 10.7, Immature Gran % (Auto) 0.500, Neut % (Auto) 76.0 H, Lymph % (Auto) 11.0 L, [place] % (Auto) 9.6, Eos % (Auto) 2.8, Baso % (Auto) 0.1, Absolute Neuts (auto) 7.8 H, Absolute Lymphs (auto) 1.13, Nucleated RBC % 0 05/28/20 06:33: POC Glucose 116 H 05/28/20 11:19: POC Glucose 86 Current Medications Acetaminophen (Acetaminophen 325 Mg Tablet) 650 mg PO Q6H PRN PRN PRN Reason: Pain Score 1-10/Temp > 100.7 F Last Admin: 05/25/20 16:40 Dose: 650 mg Documented by: Al Hydroxide/Mg Hydroxide (Mag Hydrox/Al Hydrox/Simeth 30 Ml Udc) 30 ml PO Q4H PRN PRN PRN Reason: DYSPEPSIA Last Admin: 05/23/20 21:00 Dose: 30 ml Documented by: Albuterol/Ipratropium (Ipratropium/Albuterol Sulfate 3 Ml Ampul.Neb) 3 ml INHALATION Q6HWA.RT [facility] Last Admin: 05/28/20 13:50 Dose: 3 ml Documented by: Ascorbic Acid (Ascorbic Acid 500 Mg Tablet) 1,000 mg PO DAILY [facility] Last Admin: 05/28/20 12:20 Dose: 1,000 mg Documented by: Atorvastatin Calcium (Atorvastatin Calcium 40 Mg Tablet) 40 mg PO QHS [facility] Last Admin: 05/28/20 00:37 Dose: 40 mg Documented by: Buspirone HCl (Buspirone 5 Mg Tablet) 10 mg PO DAILY [facility] Last Admin: 05/28/20 12:20 Dose: 10 mg Documented by: Calcitriol (Calcitriol 0.25 Mcg Capsule) 0.25 mcg PO DAILY [facility] Last Admin: 05/28/20 12:20 Dose: 0.25 mcg Documented by: Carvedilol (Carvedilol 12.5 Mg Tablet) 12.5 mg PO BID [facility] Last Admin: 05/28/20 12:20 Dose: 12.5 mg Documented by: Cholecalciferol (Cholecalciferol (Vit D3) 25 Mcg Tablet (1,000 Units)) 25 mcg PO DAILY [facility] Last Admin: 05/28/20 12:21 Dose: 25 mcg Documented by: Clopidogrel Bisulfate (Clopidogrel Bisulfate 75 Mg Tablet) 75 mg PO DAILY [facility] Last Admin: 05/28/20 12:29 Dose: 75 mg Documented by: Dextrose (Dextrose 50%-Water 25 Gm/50 Ml Disp.Syrin) 0 gm IV X1 PRN; Protocol PRN Reason: Hypoglycemia Dicyclomine HCl (Dicyclomine 10 Mg Capsule) 20 mg PO TIDAC [facility] Last Admin: 05/28/20 12:18 Dose: 20 mg Documented by: Furosemide (Furosemide 40 Mg Tablet) 40 mg PO BID@1000,1800 [facility] Last Admin: 05/28/20 12:20 Dose: 40 mg Documented by: Gabapentin (Gabapentin 100 Mg Capsule) 100 mg PO BID [facility] Last Admin: 05/28/20 12:20 Dose: 100 mg Documented by: Glucagon (Glucagon 1 Mg/Ml Syringe) 1 mg IM .X1 PRN PRN Reason: Hypoglycemia Hydralazine HCl (Hydralazine 25 Mg Tablet) 25 mg PO TID [facility] Last Admin: 05/28/20 14:36 Dose: 25 mg Documented by: Insulin Glargine (Insulin Glargine 100 Units/Ml Pen) 12 units SC QHS [facility] Last Admin: 05/28/20 00:38 Dose: 12 u Documented by: Insulin Human Lispro (Insulin Lispro 100 Unit/Ml Insuln.Pen) 0 unit SC TIDAC [facility]; Protocol Last Admin: 05/28/20 12:21 Dose: Not Given Documented by: Multi-Ingredient Cream (Mineral Oil/Petrolatum,White Jar) 1 applic TOPICAL BID PRN [facility]; Protocol Last Admin: 05/24/20 08:22 Dose: 1 applic Documented by: Multivit/Ca Carb/B Cmplx/FA/Prenat (Folic Acid/Vitamin B Comp W-C 1 Capsule) 1 capsule PO DAILY [facility] Last Admin: 05/28/20 12:18 Dose: 1 capsule Documented by: Multivitamins ([facility]ivitamins,Therapeutic Tablet) [facility] Last Admin: 05/28/20 12:20 Dose: 1 tablet Documented by: Nifedipine (Nifedipine 90 Mg Tablet) 90 mg PO DAILY [facility] Last Admin: 05/28/20 12:18 Dose: 90 mg Documented by: Nitroglycerin (Nitroglycerin (Inpatient Use) 0.4 Mg Tab.Subl) 0.4 mg SL Q5M PRN PRN Reason: CARDIAC/CHEST PAIN Last Admin: 05/23/20 20:55 Dose: 0.4 mg Documented by: Pantoprazole Sodium (Pantoprazole Sodium 40 Mg Tablet) 40 mg PO DAILY [facility] Last Admin: 05/28/20 12:21 Dose: 40 mg Documented by: Pyridoxine HCl (Pyridoxine Hcl 100 Mg Tablet) 100 mg PO DAILY [facility] Last Admin: 05/28/20 12:20 Dose: 100 mg Documented by: Simethicone (Simethicone 80 Mg Tablet) 80 mg PO TIDPC [facility] Last Admin: 05/28/20 12:59 Dose: Not Given Documented by: Sodium Bicarbonate (Sodium Bicarbonate 650 Mg Tablet) 650 mg PO BID [facility] Last Admin: 05/28/20 12:19 Dose: 650 mg Documented by: Sodium Chloride (0.9% Saline Lock 10 Ml Syringe) 10 - 40 ml IV UD PRN PRN Reason: SALINE FLUSH Last Admin: 05/25/20 17:12 Dose: 10 ml Documented by: Venlafaxine HCl (Venlafaxine Xr 150 Mg Capsule) 150 mg PO DAILY [facility] Last Admin: 05/28/20 12:20 Dose: 150 mg Documented by: STROKE Vital Signs/Narrative: Vital Signs Temp Pulse Resp BP Pulse Ox 05/28/20 14:36 86 148/67 H 05/28/20 14:13 100 05/28/20 14:09 99 F 86 26 H 148/67 H 95 05/28/20 14:06 83 20 H 05/28/20 12:03 98.5 F 95 20 H 156/78 H 95 Medical Necessity - Tobacco Use Smoking Status: Former smoker - Quit 2000 Assessment/Plan All Active Problems Chronic 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 (Resolved) Ulcer of left lower extremity with fat layer exposed (Resolved) Chest pain (Acute) (HFpEF) heart failure with preserved ejection fraction (Acute) Atrial fibrillation (Acute) Diastolic CHF, acute (Acute) CHF (congestive heart failure) (Acute) patient is a 60-year-old question gentleman with multiple comorbidities admitted with acute hypoxic respiratory failure secondary to acute on chronic diastolic heart failure. 1. Acute hypoxemic respiratory failure secondary to acute on chronic diastolic heart failure: Previous echo of 2016 shows EF 55% with moderate concentric LVH, LA moderately enlarged suggestive of diastolic heart failure/HFpEF. Repeat echo at this time as mentioned below, EF 60% mainly diastolic heart failure. Mild pulmonary hypertension, RVSP 42 mmHg. Stage II diastolic dysfunction. Hemodialysis started yesterday. 2. Acute kidney injury on CKD stage 5: Due to diuretics, heart failure versus progressive diabetic nephropathy: Being followed by diploma dental assistant. 24-hour timed urine collection shows creatinine kinase 13 mL/min suggestive of CKD stage V. Renal sonogram shows no obstructive uropathy or suspicious solid renal lesion. Discussed with the diploma dental assistant and surgeon regarding dialysis catheter access. Getting hemodialysis. Had 2 units of FFP yesterday. INR 1.6. 3. severe anemia due to chronic kidney disease patient had 3 units of PRBC transfusion. 4. Diabetes mellitus type 2. glucose is controlled. A1c 6.3. 5. Paroxysmal A. fib. Patient converted to sinus rhythm as per EKG of today showed sinus rhythm with PAC similar to monitor worker. Previous EKG May 23 shows A. fib at 133 bpm. Other comorbidities include coronary artery disease, history of DVT depression and morbid obesity: Clinical Impression(s) from Imaging Studies Chest X-Ray 05/23/20 08:50 IMPRESSION: Cardiomegaly and pulmonary venous congestion. Superimposed mild infiltrate in right lung base is difficult to entirely exclude. Electronically Signed: Nate Bobby MD at 9:23 EDT Tel , Service support , Echocardiogram 05/23/20 11:42 Interpretation Summary Normal LV size. Moderate concentric left ventricular hypertrophy. Left ventricular systolic function is normal. The estimated ejection fraction is 60 %. Stage 2 diastolic dysfunction. Pulmonary artery systolic pressure is 42 mmHg. Mild pulmonary hypertension. Small pericardial effusion. There are no echocardiographic indications of cardiac tamponade. Chest X-Ray 05/25/20 04:35 IMPRESSION: Worsening asymmetric vascular congestion and/or bilateral pneumonia. Stable cardiomegaly. Electronically Signed: Skyler Graham MD at 6:19 EDT , Service support , Renal Ultrasound 05/25/20 05:55 IMPRESSION: No obstructive uropathy or suspicious solid renal lesion Nonobstructing left nephrolithiasis Bladder diverticulum Electronically Signed: Giovanni Huston MD at 10:19 EDT , Service support , Saphenous Venous Mapping 05/25/20 07:59 Interpretation Summary Dimensions of bilateral cephalic and basilic veins bilaterally IV is noted in a potential fistula vein--the cephalic vein of the left wrist. Increased velocity flow bilateral brachial and radial arteries. Chest X-Ray 05/27/20 11:10 IMPRESSION: Ill-defined subpleural groundglass opacities are seen more prominent in the lung bases , may represent atypical pneumonia or viral pneumonia (COVID-19 ?). Inpatient E&M: 05449 Subs Hosp L2
--- NOTE | 2020-05-28 15:31 | NURSING ---
STUDENT CHARTING REVIEWED BY THIS RN.
[2020-05-28 16:36] LABS: Bedside Glucose 144 mg/dL (70-110)
[2020-05-28 22:25] LABS: Bedside Glucose 138 mg/dL (70-110)
[2020-05-29] VITALS (19 sets, daily range): BP systolic 142–163; BP diastolic 61–98; PULSE 77–93; RESP 16–22; TEMP 36.3–37.2; O2SAT 95–97
[2020-05-29] MEDS: Dicyclomine 10 MG Capsule 20 MG PO ×3 (06:06→16:14)
[2020-05-29] MEDS: hydrALAZINE 25 MG Tablet PO ×3 (06:06→21:27)
[2020-05-29 07:10] LABS: Bedside Glucose 103 mg/dL (70-110)
[2020-05-29] MEDS: Ipratropium/Albuterol Sulfate 3 ML AMPUL.NEB INHALATION ×3 (07:23→18:56)
--- NOTE | 2020-05-29 07:34 | PN.SURG_ITS ---
Patient Problems: Active and Suspected Problems Malnutrition (Suspected) Chest pain (Acute) (HFpEF) heart failure with preserved ejection fraction (Acute) Atrial fibrillation (Acute) Diastolic CHF, acute (Acute) CHF (congestive heart failure) (Acute) Subjective: No issues overnight - Physical Exam Vitals/I&O's: Vital Signs Temp Pulse Resp BP Pulse Ox 98.5 F 90 13 147/61 H 95 05/29/20 06:03 05/29/20 07:23 05/29/20 07:23 05/29/20 06:03 05/29/20 06:03 Oxygen Flow Rate (L/min) 1 Oxygen Delivery Method Nasal Cannula Weight: 319 lb 14.252 oz Body Mass Index (BMI) 51.2 Intake and Output for Last 24 Hours 05/27/20 05/28/20 05/29/20 23:59 23:59 23:59 Intake Total 910.5 / 910.5 1005 / 1005 165 / 165 Output Total 2200 / 2200 3000 / 3000 Balance -1289.5 / -1289.5 -1994 / 165 / 165 General: Alert, Oriented x3 Lungs: Normal air movement Abdomen: Soft, Non Tender, Non-Distended Microbiology Past 72 Hours 05/25/20 16:00 Interface Orders Urine Culture - Final Culture exhibits no growth. 05/25/20 05:00 Blood Culture (Wb) - Right Forearm Blood Culture - Preliminary No growth in 48 hours. 05/25/20 04:54 Blood Culture (Wb) - Anticubital Right Blood Culture - Preliminary No growth in 48 hours. Laboratory Results 05/28/20 11:19: POC Glucose 86 05/28/20 16:18: POC Glucose 144 H 05/28/20 21:54: POC Glucose 138 H 05/29/20 07:03: POC Glucose 103 Current Medications Acetaminophen (Acetaminophen 325 Mg Tablet) 650 mg PO Q6H PRN PRN PRN Reason: Pain Score 1-10/Temp > 100.7 F Last Admin: 05/25/20 16:40 Dose: 650 mg Documented by: Al Hydroxide/Mg Hydroxide (Mag Hydrox/Al Hydrox/Simeth 30 Ml Udc) 30 ml PO Q4H PRN PRN PRN Reason: DYSPEPSIA Last Admin: 05/23/20 21:00 Dose: 30 ml Documented by: Albuterol/Ipratropium (Ipratropium/Albuterol Sulfate 3 Ml Ampul.Neb) 3 ml INHALATION Q6HWA.RT [facility] Last Admin: 05/29/20 07:23 Dose: 3 ml Documented by: Ascorbic Acid (Ascorbic Acid 500 Mg Tablet) 1,000 mg PO DAILY [facility] Last Admin: 05/28/20 12:20 Dose: 1,000 mg Documented by: Atorvastatin Calcium (Atorvastatin Calcium 40 Mg Tablet) 40 mg PO QHS [facility] Last Admin: 05/28/20 21:58 Dose: 40 mg Documented by: Buspirone HCl (Buspirone 5 Mg Tablet) 10 mg PO DAILY [facility] Last Admin: 05/28/20 12:20 Dose: 10 mg Documented by: Calcitriol (Calcitriol 0.25 Mcg Capsule) 0.25 mcg PO DAILY [facility] Last Admin: 05/28/20 12:20 Dose: 0.25 mcg Documented by: Carvedilol (Carvedilol 12.5 Mg Tablet) 12.5 mg PO BID [facility] Last Admin: 05/28/20 21:58 Dose: 12.5 mg Documented by: Cholecalciferol (Cholecalciferol (Vit D3) 25 Mcg Tablet (1,000 Units)) 25 mcg PO DAILY [facility] Last Admin: 05/28/20 12:21 Dose: 25 mcg Documented by: Clopidogrel Bisulfate (Clopidogrel Bisulfate 75 Mg Tablet) 75 mg PO DAILY [facility] Last Admin: 05/28/20 12:29 Dose: 75 mg Documented by: Dextrose (Dextrose 50%-Water 25 Gm/50 Ml Disp.Syrin) 0 gm IV X1 PRN; Protocol PRN Reason: Hypoglycemia Dicyclomine HCl (Dicyclomine 10 Mg Capsule) 20 mg PO TIDAC [facility] Last Admin: 05/29/20 06:06 Dose: 20 mg Documented by: Furosemide (Furosemide 40 Mg Tablet) 40 mg PO BID@1000,1800 [facility] Last Admin: 05/28/20 16:59 Dose: 40 mg Documented by: Gabapentin (Gabapentin 100 Mg Capsule) 100 mg PO BID [facility] Last Admin: 05/28/20 21:58 Dose: 100 mg Documented by: Glucagon (Glucagon 1 Mg/Ml Syringe) 1 mg IM .X1 PRN PRN Reason: Hypoglycemia Hydralazine HCl (Hydralazine 25 Mg Tablet) 25 mg PO TID [facility] Last Admin: 05/29/20 06:06 Dose: 25 mg Documented by: Insulin Glargine (Insulin Glargine 100 Units/Ml Pen) 12 units SC QHS [facility] Last Admin: 05/28/20 21:57 Dose: 12 u Documented by: Insulin Human Lispro (Insulin Lispro 100 Unit/Ml Insuln.Pen) 0 unit SC TIDAC [facility]; Protocol Last Admin: 05/29/20 07:04 Dose: Not Given Documented by: Multi-Ingredient Cream (Mineral Oil/Petrolatum,White Jar) 1 applic TOPICAL BID PRN [facility]; Protocol Last Admin: 05/24/20 08:22 Dose: 1 applic Documented by: Multivit/Ca Carb/B Cmplx/FA/Prenat (Folic Acid/Vitamin B Comp W-C 1 Capsule) 1 capsule PO DAILY [facility] Last Admin: 05/28/20 12:18 Dose: 1 capsule Documented by: Multivitamins ([facility],Therapeutic [facility]t) [facility] Last Admin: 05/28/20 12:20 Dose: 1 tablet Documented by: Nifedipine (Nifedipine 90 Mg Tablet) 90 mg PO DAILY [facility] Last Admin: 05/28/20 12:18 Dose: 90 mg Documented by: Nitroglycerin (Nitroglycerin (Inpatient Use) 0.4 Mg Tab.Subl) 0.4 mg SL Q5M PRN PRN Reason: CARDIAC/CHEST PAIN Last Admin: 05/23/20 20:55 Dose: 0.4 mg Documented by: Pantoprazole Sodium (Pantoprazole Sodium 40 Mg Tablet) 40 mg PO DAILY [facility] Last Admin: 05/28/20 12:21 Dose: 40 mg Documented by: Pyridoxine HCl (Pyridoxine Hcl 100 Mg Tablet) 100 mg PO DAILY [facility] Last Admin: 05/28/20 12:20 Dose: 100 mg Documented by: Simethicone (Simethicone 80 Mg Tablet) 80 mg PO TIDPC [facility] Last Admin: 05/28/20 16:59 Dose: 80 mg Documented by: Sodium Bicarbonate (Sodium Bicarbonate 650 Mg Tablet) 650 mg PO BID [facility] Last Admin: 05/28/20 21:58 Dose: 650 mg Documented by: Sodium Chloride (0.9% Saline Lock 10 Ml Syringe) 10 - 40 ml IV UD PRN PRN Reason: SALINE FLUSH Last Admin: 05/25/20 17:12 Dose: 10 ml Documented by: Venlafaxine HCl (Venlafaxine Xr 150 Mg Capsule) 150 mg PO DAILY [facility] Last Admin: 05/28/20 12:20 Dose: 150 mg Documented by: Medical Necessity - Tobacco Use Smoking Status: Former smoker - Quit 2000 Assessment/Plan All Active Problems Chronic 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 (Resolved) Ulcer of left lower extremity with fat layer exposed (Resolved) Chest pain (Acute) (HFpEF) heart failure with preserved ejection fraction (Acute) Atrial fibrillation (Acute) Diastolic CHF, acute (Acute) CHF (congestive heart failure) (Acute) 60-year-old male with acute on chronic kidney disease 1. The patient is receiving his third round of dialysis today. He has a temporary IJ catheter on the right side. The patient is on the schedule Monday for conversion of this catheter to a tunneled dialysis catheter if the patient is still requiring dialysis by Monday. If the patient's kidney function starts to improve it can be delayed. Otherwise I will plan for Monday catheter placement I have made him n.p.o. after midnight on Monday morning. The catheter should be removed on Monday afternoon if tunneled catheter is required. Niles Louise MD Pager: [facility] [address] [place] [address], [address] [place] [address] Office:
[2020-05-29 08:53] LABS: Absolute Neutrophil Count 6.6 X10^3/uL (2.0-7.7); Basophil# 0.02 X10^3/uL; Basophil% 0.2 % (0-1); Eosinophil# 0.25 X10^3/uL; Eosinophils% 2.6 % (0-5); Hemoglobin 7.9 g/dL (13.0-16.5); Lymphocyte % 16.8 % (19-41); Mean Corp Hgb Conc 30.4 g/dL (32-36); Mean Corpuscular Hgb 27.3 pg (27.0-32.0); Mean Platelet Vol. 10.2 fl (6.2-12.0); Monocyte% 10.5 % (0-10); NRBC Flagged by Analyzer 0 % (0-5); Neutrophil # 6.61 X10^3/uL (2.7-7.7); Neutrophil % 69.4 % (47-70); Platelet Count 233 K/mm3 (150-450); RBC Distribution Width CV 15.2 % (11.6-14.6); RBC Distribution Width SD 49.1 fl (35.1-43.9); Red Blood Count 2.89 M/mm3 (4.6-6.2); White Blood Count 9.5 K/mm3 (4.4-11.0)
--- NOTE | 2020-05-29 10:58 | PN_ITS ---
Patient Problems: Active and Suspected Problems Malnutrition (Suspected) Chest pain (Acute) (HFpEF) heart failure with preserved ejection fraction (Acute) Atrial fibrillation (Acute) Diastolic CHF, acute (Acute) CHF (congestive heart failure) (Acute) Subjective: The patient was seen and examined at the bedside this morning. Events from the last 24 hours have been reviewed. The patient is currently afebrile, hemodynamically stable and maintaining appropriate oxygen saturations on 1 L/min via nasal cannula. Hemoglobin is stable. Objective: The patient's most recent lab work, culture data and imaging studies have all been personally reviewed. Surface echocardiogram revealed moderate concentric L VH with an ejection fraction of 60% and stage II diastolic dysfunction. Pulmonary artery systolic pressure was estimated to be 42 mmHg. Rapid coronavirus antigen testing was negative. Blood and urine cultures have shown no growth to date. - Physical Exam Vitals/I&O's: Vital Signs Temp Pulse Resp BP Pulse Ox 98.2 F 84 19 H 156/85 H 96 05/29/20 09:30 05/29/20 09:30 05/29/20 09:30 05/29/20 09:30 05/29/20 09:30 Oxygen Flow Rate (L/min) 1 Oxygen Delivery Method Nasal Cannula Weight: 319 lb 14.252 oz Body Mass Index (BMI) 51.2 Intake and Output for Last 24 Hours 05/27/20 05/28/20 05/29/20 23:59 23:59 23:59 Intake Total 910.5 / 910.5 1005 / 1005 165 / 165 Output Total 2200 / 2200 3000 / 3000 Balance -1289.5 / -1289.5 -1994 / 165 / 165 General: Alert, Oriented x3, Cooperative, No apparent distress HEENT: Atraumatic, Normocephalic Oral: Moist Mucosa, No Gingival or Mucosal Lesions/ Ulcerations Neck: Supple, No Nodes, Trachea Midline Lungs: No rhonchi, No wheeze, No rales, Diminished Cardiovascular: Regular rate, Regular Rhythm Abdomen: Bowel Sounds Present, Soft, Non Tender, Obese Extremities: No clubbing, No cyanosis, No edema Skin: No breakdown Musculoskeletal: No Tenderness to Palpation of Joints or Extremities, No Muscle Wasting Lymphatic: No Cervical, Supraclavicular, or Inguinal Adenopathy Neurological: Cranial nerves II-XII grossly intact, Neuro grossly intact Psych/Mental Status: Normal Affect, Appropriate Labs (Last 48 Hours) 05/23/20 05/26/20 05/26/20 12:10 04:30 04:30 WBC RBC Hgb Hct MCV MCH MCHC RDW Std Deviation RDW Coeff of Kassandra Plt Count MPV Immature Gran % (Auto) Neut % (Auto) Lymph % (Auto) Teller % (Auto) Eos % (Auto) Baso % (Auto) Absolute Neuts (auto) Absolute Lymphs (auto) Nucleated RBC % PT INR Sodium Potassium Chloride Carbon Dioxide Anion Gap BUN Creatinine Estim Creat Clear Calc Est GFR (MDRD) Af Amer Est GFR (MDRD) Non-Af BUN/Creatinine Ratio Glucose Calcium Phosphorus Albumin Hep Bs Antigen Non-Reactive Hep Bs Antibody Non-Reactive Hep B Core Total Ab Pending POC Glucose Crossmatch See Detail 05/27/20 05/27/20 05/28/20 11:12 16:26 00:34 WBC RBC Hgb Hct MCV MCH MCHC RDW Std Deviation RDW Coeff of Kassandra Plt Count MPV Immature Gran % (Auto) Neut % (Auto) Lymph % (Auto) Teller % (Auto) Eos % (Auto) Baso % (Auto) Absolute Neuts (auto) Absolute Lymphs (auto) Nucleated RBC % PT INR Sodium Potassium Chloride Carbon Dioxide Anion Gap BUN Creatinine Estim Creat Clear Calc Est GFR (MDRD) Af Amer Est GFR (MDRD) Non-Af BUN/Creatinine Ratio Glucose Calcium Phosphorus Albumin Hep Bs Antigen Hep Bs Antibody Hep B Core Total Ab POC Glucose 139 H 197 H 159 H Crossmatch 05/28/20 05/28/20 05/28/20 05:00 05:00 05:00 WBC 10.3 RBC 2.76 L Hgb 7.8 L Hct 24.5 L MCV 88.8 MCH 28.3 MCHC 31.8 L RDW Std Deviation 48.6 H RDW Coeff of Kassandra 15.1 H Plt Count 223 MPV 10.7 Immature Gran % (Auto) 0.500 Neut % (Auto) 76.0 H Lymph % (Auto) 11.0 L Teller % (Auto) 9.6 Eos % (Auto) 2.8 Baso % (Auto) 0.1 Absolute Neuts (auto) 7.8 H Absolute Lymphs (auto) 1.13 Nucleated RBC % 0 PT 18.4 H INR 1.6 Sodium 137 Potassium 3.6 Chloride 103 Carbon Dioxide 25.0 Anion Gap 9 BUN 72 H Creatinine 4.77 H Estim Creat Clear Calc 16.13 Est GFR (MDRD) Af Amer 16 L Est GFR (MDRD) Non-Af 13 L BUN/Creatinine Ratio 15.1 Glucose 129 H Calcium 8.5 Phosphorus 3.8 Albumin 2.8 L Hep Bs Antigen Hep Bs Antibody Hep B Core Total Ab POC Glucose Crossmatch 05/28/20 05/28/20 05/28/20 06:33 11:19 16:18 WBC RBC Hgb Hct MCV MCH MCHC RDW Std Deviation RDW Coeff of Kassandra Plt Count MPV Immature Gran % (Auto) Neut % (Auto) Lymph % (Auto) Teller % (Auto) Eos % (Auto) Baso % (Auto) Absolute Neuts (auto) Absolute Lymphs (auto) Nucleated RBC % PT INR Sodium Potassium Chloride Carbon Dioxide Anion Gap BUN Creatinine Estim Creat Clear Calc Est GFR (MDRD) Af Amer Est GFR (MDRD) Non-Af BUN/Creatinine Ratio Glucose Calcium Phosphorus Albumin Hep Bs Antigen Hep Bs Antibody Hep B Core Total Ab POC Glucose 116 H 86 144 H Crossmatch 05/28/20 05/29/20 05/29/20 21:54 07:03 08:41 WBC 9.5 RBC 2.89 L Hgb 7.9 L Hct 26.0 L MCV 90.0 MCH 27.3 MCHC 30.4 L RDW Std Deviation 49.1 H RDW Coeff of Kassandra 15.2 H Plt Count 233 MPV 10.2 Immature Gran % (Auto) 0.500 Neut % (Auto) 69.4 Lymph % (Auto) 16.8 L Teller % (Auto) 10.5 H Eos % (Auto) 2.6 Baso % (Auto) 0.2 Absolute Neuts (auto) 6.6 Absolute Lymphs (auto) 1.60 Nucleated RBC % 0 PT INR Sodium Potassium Chloride Carbon Dioxide Anion Gap BUN Creatinine Estim Creat Clear Calc Est GFR (MDRD) Af Amer Est GFR (MDRD) Non-Af BUN/Creatinine Ratio Glucose Calcium Phosphorus Albumin Hep Bs Antigen Hep Bs Antibody Hep B Core Total Ab POC Glucose 138 H 103 Crossmatch Microbiology 05/25/20 16:00 Interface Orders Urine Culture - Final Culture exhibits no growth. 05/25/20 05:00 Blood Culture (Wb) - Right Forearm Blood Culture - Preliminary No growth in 48 hours. 05/25/20 04:54 Blood Culture (Wb) - Anticubital Right Blood Culture - Preliminary No growth in 48 hours. Clinical Impression(s) from Imaging Studies Chest X-Ray 05/23/20 08:50 IMPRESSION: Cardiomegaly and pulmonary venous congestion. Superimposed mild infiltrate in right lung base is difficult to entirely exclude. Electronically Signed: Nate Bobby MD at 9:23 EDT Tel , Service support , Echocardiogram 05/23/20 11:42 Interpretation Summary Normal LV size. Moderate concentric left ventricular hypertrophy. Left ventricular systolic function is normal. The estimated ejection fraction is 60 %. Stage 2 diastolic dysfunction. Pulmonary artery systolic pressure is 42 mmHg. Mild pulmonary hypertension. Small pericardial effusion. There are no echocardiographic indications of cardiac tamponade. Ordering Physician: Immanuel Ken Referring Physician: Yola Ng Performed By: Brisa Franklin, RDCS, RVT Chest X-Ray 05/25/20 04:35 IMPRESSION: Worsening asymmetric vascular congestion and/or bilateral pneumonia. Stable cardiomegaly. Electronically Signed: Skyler Graham MD at 6:19 EDT , Service support , Renal Ultrasound 05/25/20 05:55 IMPRESSION: No obstructive uropathy or suspicious solid renal lesion Nonobstructing left nephrolithiasis Bladder diverticulum Electronically Signed: Giovanni Huston MD at 10:19 EDT , Service support , Saphenous Venous Mapping 05/25/20 07:59 Interpretation Summary Dimensions of bilateral cephalic and basilic veins bilaterally IV is noted in a potential fistula vein--the cephalic vein of the left wrist. Increased velocity flow bilateral brachial and radial arteries. ____ Ordering Physician: Lillian Acharya Referring Physician: Yola Ng M.D. Performed By: Alyssa Mcgrath, T ? Chest X-Ray 05/27/20 11:10 IMPRESSION: Ill-defined subpleural groundglass opacities are seen more prominent in the lung bases , may represent atypical pneumonia or viral pneumonia (COVID-19 ?). Electronically Signed: Xavier Koengi MD at 12:17 EDT Tel , Service support , Current Medications Acetaminophen (Acetaminophen 325 Mg Tablet) 650 mg PO Q6H PRN PRN PRN Reason: Pain Score 1-10/Temp > 100.7 F Last Admin: 05/25/20 16:40 Dose: 650 mg Documented by: Al Hydroxide/Mg Hydroxide (Mag Hydrox/Al Hydrox/Simeth 30 Ml Udc) 30 ml PO Q4H PRN PRN PRN Reason: DYSPEPSIA Last Admin: 05/23/20 21:00 Dose: 30 ml Documented by: Albuterol/Ipratropium (Ipratropium/Albuterol Sulfate 3 Ml Ampul.Neb) 3 ml INHALATION Q6HWA.RT DELIA Last Admin: 05/29/20 07:23 Dose: 3 ml Documented by: Ascorbic Acid (Ascorbic Acid 500 Mg Tablet) 1,000 mg PO DAILY [facility] Last Admin: 05/28/20 12:20 Dose: 1,000 mg Documented by: Atorvastatin Calcium (Atorvastatin Calcium 40 Mg Tablet) 40 mg PO QHS [facility] Last Admin: 05/28/20 21:58 Dose: 40 mg Documented by: Buspirone HCl (Buspirone 5 Mg Tablet) 10 mg PO DAILY [facility] Last Admin: 05/28/20 12:20 Dose: 10 mg Documented by: Calcitriol (Calcitriol 0.25 Mcg Capsule) 0.25 mcg PO DAILY [facility] Last Admin: 05/28/20 12:20 Dose: 0.25 mcg Documented by: Carvedilol (Carvedilol 12.5 Mg Tablet) 12.5 mg PO BID [facility] Last Admin: 05/28/20 21:58 Dose: 12.5 mg Documented by: Cholecalciferol (Cholecalciferol (Vit D3) 25 Mcg Tablet (1,000 Units)) 25 mcg PO DAILY [facility] Last Admin: 05/28/20 12:21 Dose: 25 mcg Documented by: Clopidogrel Bisulfate (Clopidogrel Bisulfate 75 Mg Tablet) 75 mg PO DAILY [facility] Last Admin: 05/28/20 12:29 Dose: 75 mg Documented by: Dextrose (Dextrose 50%-Water 25 Gm/50 Ml Disp.Syrin) 0 gm IV X1 PRN; Protocol PRN Reason: Hypoglycemia Dicyclomine HCl (Dicyclomine 10 Mg Capsule) 20 mg PO TIDAC [facility] Last Admin: 05/29/20 06:06 Dose: 20 mg Documented by: Furosemide (Furosemide 40 Mg Tablet) 40 mg PO BID@1000,1800 [facility] Last Admin: 05/28/20 16:59 Dose: 40 mg Documented by: Gabapentin (Gabapentin 100 Mg Capsule) 100 mg PO BID [facility] Last Admin: 05/28/20 21:58 Dose: 100 mg Documented by: Glucagon (Glucagon 1 Mg/Ml Syringe) 1 mg IM .X1 PRN PRN Reason: Hypoglycemia Hydralazine HCl (Hydralazine 25 Mg Tablet) 25 mg PO TID [facility] Last Admin: 05/29/20 06:06 Dose: 25 mg Documented by: Insulin Glargine (Insulin Glargine 100 Units/Ml Pen) 12 units SC QHS [facility] Last Admin: 05/28/20 21:57 Dose: 12 u Documented by: Insulin Human Lispro (Insulin Lispro 100 Unit/Ml Insuln.Pen) 0 unit SC TIDAC [facility]; Protocol Last Admin: 05/29/20 07:04 Dose: Not Given Documented by: Multi-Ingredient Cream (Mineral Oil/Petrolatum,White Jar) 1 applic TOPICAL BID PRN [facility]; Protocol Last Admin: 05/24/20 08:22 Dose: 1 applic Documented by: Multivit/Ca Carb/B Cmplx/FA/Prenat (Folic Acid/Vitamin B Comp W-C 1 Capsule) 1 capsule PO DAILY [facility] Last Admin: 05/28/20 12:18 Dose: 1 capsule Documented by: [facility]ivitamins (Multivitamins,Therapeutic Tablet) [facility] Last Admin: 05/28/20 12:20 Dose: 1 tablet Documented by: Nifedipine (Nifedipine 90 Mg Tablet) 90 mg PO DAILY [facility] Last Admin: 05/28/20 12:18 Dose: 90 mg Documented by: Nitroglycerin (Nitroglycerin (Inpatient Use) 0.4 Mg Tab.Subl) 0.4 mg SL Q5M PRN PRN Reason: CARDIAC/CHEST PAIN Last Admin: 05/23/20 20:55 Dose: 0.4 mg Documented by: Pantoprazole Sodium (Pantoprazole Sodium 40 Mg Tablet) 40 mg PO DAILY [facility] Last Admin: 05/28/20 12:21 Dose: 40 mg Documented by: Pyridoxine HCl (Pyridoxine Hcl 100 Mg Tablet) 100 mg PO DAILY [facility] Last Admin: 05/28/20 12:20 Dose: 100 mg Documented by: Simethicone (Simethicone 80 Mg Tablet) 80 mg PO TIDPC [facility] Last Admin: 05/29/20 10:51 Dose: Not Given Documented by: Sodium Bicarbonate (Sodium Bicarbonate 650 Mg Tablet) 650 mg PO BID [facility] Last Admin: 05/28/20 21:58 Dose: 650 mg Documented by: Sodium Chloride (0.9% Saline Lock 10 Ml Syringe) 10 - 40 ml IV UD PRN PRN Reason: SALINE FLUSH Last Admin: 05/25/20 17:12 Dose: 10 ml Documented by: Venlafaxine HCl (Venlafaxine Xr 150 Mg Capsule) 150 mg PO DAILY [facility] Last Admin: 05/28/20 12:20 Dose: 150 mg Documented by: Medical Necessity - Tobacco Use Smoking Status: Former smoker - Quit 2000 Assessment/Plan All Active Problems Chronic 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 (Resolved) Ulcer of left lower extremity with fat layer exposed (Resolved) Chest pain (Acute) (HFpEF) heart failure with preserved ejection fraction (Acute) Atrial fibrillation (Acute) Diastolic CHF, acute (Acute) CHF (congestive heart failure) (Acute) RECOMMENDATIONS: 1. Continue hemodialysis with volume removal per nephrology recommendations. 2. Continue to wean supplemental oxygen to maintain saturations at or above 90%. 3. Continue to monitor H&H daily. Plan to transfuse if hemoglobin drops below 7 g/dL. 4. Recommend empiric use of BiPAP while sleeping. 5. Continue scheduled bronchodilator therapy while awake. 6. Encourage incentive spirometer use and mobilize patient as tolerated. 7. Recommend outpatient pulmonary follow-up so that baseline PFTs and polysomnogram can be completed. 8. Given overall clinical stability and improvement, will sign off. Please call with any additional questions. IMPRESSIONS: 1. Acute hypoxemic respiratory failure with concern for decompensated heart failure Clinical concern for acute decompensated heart failure based upon clinical presentation and radiographic findings. The patient initially responded to IV diuretic therapy but due to renal function, had to be started on hemodialysis. Plan to continue to wean supplemental oxygen to maintain saturations at or above 90%. Encourage incentive spirometer use and mobilize patient as tolerated. Continue scheduled bronchodilator therapy while awake, given prior smoking history. 2. Anemia Unclear etiology. No overt signs of blood loss. The patient previously had a hemoglobin of 11.3 g/dL 1 year ago. The patient was transfused 3 units of packed red blood cells. Recommend continuing to monitor H&H daily. Transfuse if hemoglobin drops below 7 g/dL. Continue daily PPI therapy. 3. Acute on chronic kidney disease Possibly related to underlying medical renal disease coupled with overdiuresis. Nephrology is currently following to assist with hemodialysis needs. 4. Obesity/diabetes/coronary artery disease/atrial fibrillation/untreated obstructive sleep apnea Complicates care, management, recovery and prognosis. As noted above, recommend empiric use of BiPAP therapy on a nightly basis. This note was generated with [employer] software. It may contain incorrect words, spelling, and punctuation that were not noted in checking the note before signing. Inpatient E&M: [id number] [facility] Hosp L2
[2020-05-29 11:31] LABS: Bedside Glucose 132 mg/dL (70-110)
[2020-05-29 11:52] LABS: Anion Gap 7 (5-15); BUN 54 mg/dL (7-18); BUN/Creat Ratio 12.2 RATIO (10-20); Calcium,Total 8.7 mg/dL (8.5-10.1); Chloride 104 mmol/L (98-107); Creatinine, Serum 4.41 mg/dL (0.70-1.30); EST Glomerular Filtration Rate 15 mL/min (>60); Est Glom Filt Rate - Afr Amer 18 mL/min (>60); Estimated Creatinine Clearance 17.45 ml/min; Glucose 102 mg/dL (74-106); Potassium 3.6 mmol/L (3.5-5.1); Sodium Level 139 mmol/L (136-145)
--- NOTE | 2020-05-29 13:37 | DIALYSIS ---
Hemodialysis completed, 3.5 hours on a 3K bath at max flows. Fluid removed was 3500 using crit line for guidance. RIJ temporary cath worked well. Next dialysis will be Monday06/01/20. Patient to have tunnelled line placed monday so plan is to run him in the morning and then place tunnelled cath in afternoon, then possible d/c to home. Patient aware. See flow sheet for details. Post BP was 163/98 84.
[2020-05-29] MEDS: Multivitamins,Therapeutic Tablet 1 TABLET PO (13:47)
[2020-05-29] MEDS: Ascorbic Acid 500 MG Tablet 1000 MG PO (13:47)
[2020-05-29] MEDS: Cholecalciferol (VIT D3) 25 MCG TABLET (1,000 UNITS) PO (13:48)
[2020-05-29] MEDS: Carvedilol 12.5 MG Tablet PO ×2 (13:48→21:27)
[2020-05-29] MEDS: Clopidogrel Bisulfate 75 MG Tablet PO (13:48)
[2020-05-29] MEDS: Pyridoxine HCl 100 MG Tablet PO (13:48)
[2020-05-29] MEDS: Pantoprazole Sodium 40 MG Tablet PO (13:48)
[2020-05-29] MEDS: Sodium Bicarbonate 650 MG Tablet PO ×2 (13:48→21:27)
[2020-05-29] MEDS: busPIRone 5 MG Tablet 10 MG PO (13:49)
[2020-05-29] MEDS: Venlafaxine XR 150 MG Capsule PO (13:49)
[2020-05-29] MEDS: NIFEdipine 90 MG Tablet PO (13:50)
[2020-05-29] MEDS: Furosemide 40 MG Tablet PO ×2 (13:50→17:25)
[2020-05-29] MEDS: Folic Acid/Vitamin B Comp W-C 1 Capsule 1 CAP PO (13:50)
[2020-05-29] MEDS: Calcitriol 0.25 MCG Capsule PO (13:50)
[2020-05-29] MEDS: Gabapentin 100 MG Capsule PO ×2 (13:51→21:27)
--- NOTE | 2020-05-29 14:07 | CASEMGMT ---
Hep B results faxed to [facility] and [facility] admissions and per Shaila at [facility], pt has been medically cleared, but financial clearance is still pending. Shaila is aware that pt to get tunnel cath on Monday06/01/20, voices understanding. Pt provided schedule letter at this time with explanation and voices no further questions/concerns/needs. Ben LUNDY CM
[2020-05-29 15:24] LABS: Hepatitis B Core Ab Total Negative (Negative)
--- NOTE | 2020-05-29 16:13 | PN_ITS ---
Patient Problems: Active and Suspected Problems Malnutrition (Suspected) Chest pain (Acute) (HFpEF) heart failure with preserved ejection fraction (Acute) Atrial fibrillation (Acute) Diastolic CHF, acute (Acute) CHF (congestive heart failure) (Acute) Objective: Patient is feeling better after dialysis. Decrease in the lower extremity swelling. Oxygen requirement has come down. On 2 to 3 L of oxygen. mate chief shows irregular rhythm with sinus rhythm with multiple PACs Physical exam Physical exam General: Alert, Oriented x3, Cooperative, morbid obesity BMI 50.4 kg/m? HEENT: Atraumatic, PERRLA, EOMI, Normocephalic Oral: No Gingival or Mucosal Lesions/ Ulcerations Neck: Supple, No JVD, Negative Carotid Bruits Lungs: Air entry diminished in bilateral lung bases. No crepitations. Cardiovascular: Irregular heart rate Normal S1, Normal S2, systolic murmur over LLSB and right second ICS Abdomen: Bowel Sounds Present, Soft, Non Tender, Non-Distended : No renal angle tenderness. No suprapubic tenderness. Extremities: Bilateral lower thigh edema improved, Capillary Refill Less than 3 Seconds Skin: No rashes, No breakdown Musculoskeletal: No Tenderness to Palpation of Joints or Extremities Neurological: Cranial nerves II-XII grossly intact, Deep Tendon Reflexes 2+/4 and Symmetrical, Neuro grossly intact Psych/Mental Status: Normal Affect, Appropriate. Vitals/I&O's: Vital Signs Temp Pulse Resp BP Pulse Ox 98.1 F 90 16 143/82 H 97 05/29/20 13:45 05/29/20 15:00 05/29/20 13:45 05/29/20 13:49 05/29/20 13:55 Oxygen Flow Rate (L/min) 1 Oxygen Delivery Method Nasal Cannula Weight: 319 lb 14.252 oz Body Mass Index (BMI) 51.2 Intake and Output for Last 24 Hours 05/27/20 05/28/20 05/29/20 23:59 23:59 23:59 Intake Total 910.5 / 910.5 1005 / 1005 285 / 285 Output Total 2200 / 2200 3000 / 3000 3500 / 3500 Balance -1289.5 / -1289.5 -1994 / -1994 -5 / -3215 Microbiology Past 72 Hours 05/25/20 16:00 Interface Orders Urine Culture - Final Culture exhibits no growth. 05/25/20 05:00 Blood Culture (Wb) - Right Forearm Blood Culture - Preliminary No growth in 48 hours. 05/25/20 04:54 Blood Culture (Wb) - Anticubital Right Blood Culture - Preliminary No growth in 48 hours. Laboratory Results 05/26/20 04:30: Hep B Core Total Ab Negative 05/28/20 16:18: POC Glucose 144 H 05/28/20 21:54: POC Glucose 138 H 05/29/20 07:03: POC Glucose 103 05/29/20 08:41: WBC 9.5, RBC 2.89 L, Hgb 7.9 L, Hct 26.0 L, MCV 90.0, MCH 27.3, MCHC 30.4 L, RDW Std Deviation 49.1 H, RDW Coeff of Kassandra 15.2 H, Plt Count 233, MPV 10.2, Immature Gran % (Auto) 0.500, Neut % (Auto) 69.4, Lymph % (Auto) 16.8 L, Mcmullen % (Auto) 10.5 H, Eos % (Auto) 2.6, Baso % (Auto) 0.2, Absolute Neuts (auto) 6.6, Absolute Lymphs (auto) 1.60, Nucleated RBC % 0 05/29/20 08:41: Sodium 139, Potassium 3.6, Chloride 104, Carbon Dioxide 28.0, Anion Gap 7, BUN 54 H, Creatinine 4.41 H, Estim Creat Clear Calc 17.45, Est GFR (MDRD) Af Amer 18 L, Est GFR (MDRD) Non-Af 15 L, BUN/Creatinine Ratio 12.2, Glucose 102, Calcium 8.7 05/29/20 11:19: POC Glucose 132 H Current Medications Acetaminophen (Acetaminophen 325 Mg Tablet) 650 mg PO Q6H PRN PRN PRN Reason: Pain Score 1-10/Temp > 100.7 F Last Admin: 05/25/20 16:40 Dose: 650 mg Documented by: Al Hydroxide/Mg Hydroxide (Mag Hydrox/Al Hydrox/Simeth 30 Ml Udc) 30 ml PO Q4H PRN PRN PRN Reason: DYSPEPSIA Last Admin: 05/23/20 21:00 Dose: 30 ml Documented by: Albuterol/Ipratropium (Ipratropium/Albuterol Sulfate 3 Ml Ampul.Neb) 3 ml I NHALATION Q6HWA.RT [facility] Last Admin: 05/29/20 07:23 Dose: 3 ml Documented by: Ascorbic Acid (Ascorbic Acid 500 Mg Tablet) 1,000 mg PO DAILY [facility] Last Admin: 05/29/20 13:47 Dose: 1,000 mg Documented by: Atorvastatin Calcium (Atorvastatin Calcium 40 Mg Tablet) 40 mg PO QHS [facility] Last Admin: 05/28/20 21:58 Dose: 40 mg Documented by: Buspirone HCl (Buspirone 5 Mg Tablet) 10 mg PO DAILY [facility] Last Admin: 05/29/20 13:49 Dose: 10 mg Documented by: Calcitriol (Calcitriol 0.25 Mcg Capsule) 0.25 mcg PO DAILY [facility] Last Admin: 05/29/20 13:50 Dose: 0.25 mcg Documented by: Carvedilol (Carvedilol 12.5 Mg Tablet) 12.5 mg PO BID [facility] Last Admin: 05/29/20 13:48 Dose: 12.5 mg Documented by: Cholecalciferol (Cholecalciferol (Vit D3) 25 Mcg Tablet (1,000 Units)) 25 mcg PO DAILY [facility] Last Admin: 05/29/20 13:48 Dose: 25 mcg Documented by: Clopidogrel Bisulfate (Clopidogrel Bisulfate 75 Mg Tablet) 75 mg PO DAILY [facility] Last Admin: 05/29/20 13:48 Dose: 75 mg Documented by: Dextrose (Dextrose 50%-Water 25 Gm/50 Ml Disp.Syrin) 0 gm IV X1 PRN; Protocol PRN Reason: Hypoglycemia Dicyclomine HCl (Dicyclomine 10 Mg Capsule) 20 mg PO TIDAC [facility] Last Admin: 05/29/20 13:49 Dose: 20 mg Documented by: Furosemide (Furosemide 40 Mg Tablet) 40 mg PO BID@1000,1800 [facility] Last Admin: 05/29/20 13:50 Dose: 40 mg Documented by: Gabapentin (Gabapentin 100 Mg Capsule) 100 mg PO BID [facility] Last Admin: 05/29/20 13:51 Dose: 100 mg Documented by: Glucagon (Glucagon 1 Mg/Ml Syringe) 1 mg IM .X1 PRN PRN Reason: Hypoglycemia Hydralazine HCl (Hydralazine 25 Mg Tablet) 25 mg PO TID [facility] Last Admin: 05/29/20 13:49 Dose: 25 mg Documented by: Insulin Glargine (Insulin Glargine 100 Units/Ml Pen) 12 units SC QHS [facility] Last Admin: 05/28/20 21:57 Dose: 12 u Documented by: Insulin Human Lispro (Insulin Lispro 100 Unit/Ml Insuln.Pen) 0 unit SC TIDAC [facility]; Protocol Last Admin: 05/29/20 11:31 Dose: Not Given Documented by: Multi-Ingredient Cream (Mineral Oil/Petrolatum,White Jar) 1 applic TOPICAL BID PRN [facility]; Protocol Last Admin: 05/24/20 08:22 Dose: 1 applic Documented by: Multivit/Ca Carb/B Cmplx/FA/Prenat (Folic Acid/Vitamin B Comp W-C 1 Capsule) 1 capsule PO DAILY [facility] Last Admin: 05/29/20 13:50 Dose: 1 capsule Documented by: Multivitamins (Multivitamins,Therapeutic Tablet) [facility] Last Admin: 05/29/20 13:47 Dose: 1 tablet Documented by: Nifedipine (Nifedipine 90 Mg Tablet) 90 mg PO DAILY [facility] Last Admin: 05/29/20 13:50 Dose: 90 mg Documented by: Nitroglycerin (Nitroglycerin (Inpatient Use) 0.4 Mg Tab.Subl) 0.4 mg SL Q5M PRN PRN Reason: CARDIAC/CHEST PAIN Last Admin: 05/23/20 20:55 Dose: 0.4 mg Documented by: Pantoprazole Sodium (Pantoprazole Sodium 40 Mg Tablet) 40 mg PO DAILY [facility] Last Admin: 05/29/20 13:48 Dose: 40 mg Documented by: Pyridoxine HCl (Pyridoxine Hcl 100 Mg Tablet) 100 mg PO DAILY [facility] Last Admin: 05/29/20 13:48 Dose: 100 mg Documented by: Simethicone (Simethicone 80 Mg Tablet) 80 mg PO TIDPC [facility] Last Admin: 05/29/20 13:48 Dose: 80 mg Documented by: Sodium Bicarbonate (Sodium Bicarbonate 650 Mg Tablet) 650 mg PO BID [facility] Last Admin: 05/29/20 13:48 Dose: 650 mg Documented by: Sodium Chloride (0.9% Saline Lock 10 Ml Syringe) 10 - 40 ml IV UD PRN PRN Reason: SALINE FLUSH Last Admin: 05/25/20 17:12 Dose: 10 ml Documented by: Venlafaxine HCl (Venlafaxine Xr 150 Mg Capsule) 150 mg PO DAILY [facility] Last Admin: 05/29/20 13:49 Dose: 150 mg Documented by: STROKE Vital Signs/Narrative: Vital Signs Temp Pulse Resp BP Pulse Ox 05/29/20 15:00 90 05/29/20 13:55 97 05/29/20 13:49 90 143/82 H 05/29/20 13:45 98.1 F 90 16 143/82 H 97 05/29/20 13:35 98.2 F 84 17 163/98 H Medical Necessity - Tobacco Use Smoking Status: Former smoker - Quit 2000 Assessment/Plan All Active Problems Chronic 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 (Resolved) Ulcer of left lower extremity with fat layer exposed (Resolved) Chest pain (Acute) (HFpEF) heart failure with preserved ejection fraction (Acute) Atrial fibrillation (Acute) Diastolic CHF, acute (Acute) CHF (congestive heart failure) (Acute) patient is a 60-year-old question gentleman with multiple comorbidities admitted with acute hypoxic respiratory failure secondary to acute on chronic diastolic heart failure. 1. Acute hypoxemic respiratory failure secondary to acute on chronic diastolic heart failure: Previous echo of 2016 shows EF 55% with moderate concentric LVH, LA moderately enlarged suggestive of diastolic heart failure/HFpEF. Repeat echo at this time as mentioned below, EF 60% mainly diastolic heart failure. Mild pulmonary hypertension, RVSP 42 mmHg. Stage II diastolic dysfunction. 05/29: Today is her third day of hemodialysis. Significant improvement of lower extremity swelling. Patient oxygenation improved currently on 1 to 2 L of oxygen. 2. Acute kidney injury on CKD stage 5: Due to diuretics, heart failure versus progressive diabetic nephropathy: Being followed by bus and sys integration senior manager. 24-hour timed urine collection shows creatinine kinase 13 mL/min suggestive of CKD stage V. Renal sonogram shows no obstructive uropathy or suspicious solid renal lesion. Discussed with the bus and sys integration senior manager and surgeon regarding dialysis catheter access. Getting hemodialysis. Had 2 units of FFP yesterday. INR 1.6. 05/29: Discussed with bus and sys integration senior manager. No plan for dialysis during the weekend. Tunnel dialysis catheter on Monday and then possible discharge in 1 to 2 days 3. severe anemia due to chronic kidney disease patient had 3 units of PRBC transfusion. H&H is stable 7.9/26 4. Diabetes mellitus type 2. glucose is controlled. A1c 6.3. 5. Paroxysmal A. fib. 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 Previous EKG May 23 shows A. fib at 133 bpm. Other comorbidities include coronary artery disease, history of DVT depression and morbid obesity: Microbiology Past 72 Hours 05/25/20 16:00 Interface Orders Urine Culture - Final Culture exhibits no growth. 05/25/20 05:00 Blood Culture (Wb) - Right Forearm Blood Culture - Preliminary No growth in 48 hours. 05/25/20 04:54 Blood Culture (Wb) - Anticubital Right Blood Culture - Preliminary No growth in 48 hours. Laboratory Results 05/26/20 04:30: Hep B Core Total Ab Negative 05/28/20 16:18: POC Glucose 144 H 05/28/20 21:54: POC Glucose 138 H 05/29/20 07:03: POC Glucose 103 05/29/20 08:41: WBC 9.5, RBC 2.89 L, Hgb 7.9 L, Hct 26.0 L, MCV 90.0, MCH 27.3, MCHC 30.4 L, RDW Std Deviation 49.1 H, RDW Coeff of Kassandra 15.2 H, Plt Count 233, MPV 10.2, Immature Gran % (Auto) 0.500, Neut % (Auto) 69.4, Lymph % (Auto) 16.8 L, Mcmullen % (Auto) 10.5 H, Eos % (Auto) 2.6, Baso % (Auto) 0.2, Absolute Neuts (auto) 6.6, Absolute Lymphs (auto) 1.60, Nucleated RBC % 0 05/29/20 08:41: Sodium 139, Potassium 3.6, Chloride 104, Carbon Dioxide 28.0, Anion Gap 7, BUN 54 H, Creatinine 4.41 H, Estim Creat Clear Calc 17.45, Est GFR (MDRD) Af Amer 18 L, Est GFR (MDRD) Non-Af 15 L, BUN/Creatinine Ratio 12.2, Glucose 102, Calcium 8.7 05/29/20 11:19: POC Glucose 132 H Clinical Impression(s) from Imaging Studies Chest X-Ray 05/23/20 08:50 IMPRESSION: Cardiomegaly and pulmonary venous congestion. Superimposed mild infiltrate in right lung base is difficult to entirely exclude. Electronically Signed: Nate Bobby MD at 9:23 EDT Tel , Service support , Echocardiogram 05/23/20 11:42 Interpretation Summary Normal LV size. Moderate concentric left ventricular hypertrophy. Left ventricular systolic function is normal. The estimated ejection fraction is 60 %. Stage 2 diastolic dysfunction. Pulmonary artery systolic pressure is 42 mmHg. Mild pulmonary hypertension. Small pericardial effusion. There are no echocardiographic indications of cardiac tamponade. Chest X-Ray 05/25/20 04:35 IMPRESSION: Worsening asymmetric vascular congestion and/or bilateral pneumonia. Stable cardiomegaly. Electronically Signed: Skyler Graham MD at 6:19 EDT , Service support , Renal Ultrasound 05/25/20 05:55 IMPRESSION: No obstructive uropathy or suspicious solid renal lesion Nonobstructing left nephrolithiasis Bladder diverticulum Electronically Signed: Giovanni Huston MD at 10:19 EDT , Service support , Saphenous Venous Mapping 05/25/20 07:59 Interpretation Summary Dimensions of bilateral cephalic and basilic veins bilaterally IV is noted in a potential fistula vein--the cephalic vein of the left wrist. Increased velocity flow bilateral brachial and radial arteries. Chest X-Ray 05/27/20 11:10 IMPRESSION: Ill-defined subpleural groundglass opacities are seen more prominent in the lung bases , may represent atypical pneumonia or viral pneumonia (COVID-19 ?). Inpatient E&M: 57766 Subs Hosp L2
[2020-05-29 16:20] LABS: Bedside Glucose 138 mg/dL (70-110)
[2020-05-29] MEDS: Atorvastatin Calcium 40 MG Tablet PO (21:26)
[2020-05-29 21:51] LABS: Bedside Glucose 131 mg/dL (70-110)
[2020-05-30] VITALS (14 sets, daily range): BP systolic 110–153; BP diastolic 47–77; PULSE 71–105; RESP 16–18; TEMP 36.9–37.5; O2SAT 94–98
[2020-05-30] MEDS: hydrALAZINE 25 MG Tablet PO ×3 (06:42→21:29)
[2020-05-30] MEDS: Dicyclomine 10 MG Capsule 20 MG PO ×3 (06:42→16:34)
[2020-05-30 06:45] LABS: Absolute Lymphocyte Count 1.74 X10^3/uL (0.83-4.51); Absolute Neutrophil Count 8.2 X10^3/uL (2.0-7.7); Basophil# 0.03 X10^3/uL; Basophil% 0.3 % (0-1); Eosinophil# 0.35 X10^3/uL; Hematocrit 27.5 % (40-54); Hemoglobin 8.4 g/dL (13.0-16.5); Lymphocyte # 1.74 X10^3/ul (4.0); Lymphocyte % 15.1 % (19-41); Mean Corp Hgb Conc 30.5 g/dL (32-36); Mean Corpuscular Hgb 27.8 pg (27.0-32.0); Mean Corpuscular Volume 91.1 fL (80-94); Mean Platelet Vol. 10.3 fl (6.2-12.0); Monocyte# 1.19 X10^3/uL; Monocyte% 10.3 % (0-10); NRBC Flagged by Analyzer 0 % (0-5); Neutrophil # 8.17 X10^3/uL (2.7-7.7); Neutrophil % 70.9 % (47-70); Platelet Count 264 K/mm3 (150-450); RBC Distribution Width CV 15.4 % (11.6-14.6); RBC Distribution Width SD 48.8 fl (35.1-43.9); Red Blood Count 3.02 M/mm3 (4.6-6.2); White Blood Count 11.5 K/mm3 (4.4-11.0)
--- NOTE | 2020-05-30 06:55 | PN.SURG_ITS ---
Patient Problems: Active and Suspected Problems Malnutrition (Suspected) Chest pain (Acute) (HFpEF) heart failure with preserved ejection fraction (Acute) Atrial fibrillation (Acute) Diastolic CHF, acute (Acute) CHF (congestive heart failure) (Acute) Subjective: Patient reports no issues. He did receive dialysis yesterday. - Physical Exam Vitals/I&O's: Vital Signs Temp Pulse Resp BP Pulse Ox 98.5 F 82 18 110/76 98 05/30/20 05:20 05/30/20 06:42 05/30/20 05:20 05/30/20 05:20 05/30/20 05:20 Oxygen Flow Rate (L/min) 1 Oxygen Delivery Method Room Air Weight: 309 lb 8.464 oz Body Mass Index (BMI) 51.2 Intake and Output for Last 24 Hours 05/28/20 05/29/20 05/30/20 23:59 23:59 23:59 Intake Total 1005 / 1005 585 / 705 120 / 120 Output Total 3000 / 3000 3500 / 3500 Balance -1994 / -1994 -2914 / -2795 120 / 120 General: Alert, Oriented x3 Lungs: Normal air movement Abdomen: Soft, Non Tender, Non-Distended Microbiology Past 72 Hours 05/25/20 05:00 Blood Culture (Wb) - Right Forearm Blood Culture - Final No growth in 5 days. 05/25/20 04:54 Blood Culture (Wb) - Anticubital Right Blood Culture - Final No growth in 5 days. 05/25/20 16:00 Interface Orders Urine Culture - Final Culture exhibits no growth. Laboratory Results 05/26/20 04:30: Hep B Core Total Ab Negative 05/29/20 07:03: POC Glucose 103 05/29/20 08:41: WBC 9.5, RBC 2.89 L, Hgb 7.9 L, Hct 26.0 L, MCV 90.0, MCH 27.3, MCHC 30.4 L, RDW Std Deviation 49.1 H, RDW Coeff of Kassandra 15.2 H, Plt Count 233, MPV 10.2, Immature Gran % (Auto) 0.500, Neut % (Auto) 69.4, Lymph % (Auto) 16.8 L, Roberts % (Auto) 10.5 H, Eos % (Auto) 2.6, Baso % (Auto) 0.2, Absolute Neuts (auto) 6.6, Absolute Lymphs (auto) 1.60, Nucleated RBC % 0 05/29/20 08:41: Sodium 139, Potassium 3.6, Chloride 104, Carbon Dioxide 28.0, Anion Gap 7, BUN 54 H, Creatinine 4.41 H, Estim Creat Clear Calc 17.45, Est GFR (MDRD) Af Amer 18 L, Est GFR (MDRD) Non-Af 15 L, BUN/Creatinine Ratio 12.2, Glucose 102, Calcium 8.7 05/29/20 11:19: POC Glucose 132 H 05/29/20 16:13: POC Glucose 138 H 05/29/20 21:23: POC Glucose 131 H 05/30/20 05:55: WBC 11.5 H, RBC 3.02 L, Hgb 8.4 L, Hct 27.5 L, MCV 91.1, MCH 27.8, MCHC 30.5 L, RDW Std Deviation 48.8 H, RDW Coeff of Kassandra 15.4 H, Plt Count 264, MPV 10.3, Immature Gran % (Auto) 0.400, Neut % (Auto) 70.9 H, Lymph % (Auto) 15.1 L, Roberts % (Auto) 10.3 H, Eos % (Auto) 3.0, Baso % (Auto) 0.3, Absolute Neuts (auto) 8.2 H, Absolute Lymphs (auto) 1.74, Nucleated RBC % 0 05/30/20 05:55: Sodium Pending, Potassium Pending, Chloride Pending, Carbon Dioxide Pending, Anion Gap Pending, BUN Pending, Creatinine Pending, Est GFR (MDRD) Af Amer Pending, Est GFR (MDRD) Non-Af Pending, BUN/Creatinine Ratio Pending, Glucose Pending, Calcium Pending Current Medications Acetaminophen (Acetaminophen 325 Mg Tablet) 650 mg PO Q6H PRN PRN PRN Reason: Pain Score 1-10/Temp > 100.7 F Last Admin: 05/25/20 16:40 Dose: 650 mg Documented by: Al Hydroxide/Mg Hydroxide (Mag Hydrox/Al Hydrox/Simeth 30 Ml Udc) 30 ml PO Q4H PRN PRN PRN Reason: DYSPEPSIA Last Admin: 05/23/20 21:00 Dose: 30 ml Documented by: Albuterol/Ipratropium (Ipratropium/Albuterol Sulfate 3 Ml Ampul.Neb) 3 ml INHALATION Q6HWA.RT [facility] Last Admin: 05/29/20 18:56 Dose: 3 ml Documented by: Ascorbic Acid (Ascorbic Acid 500 Mg Tablet) 1,000 mg PO DAILY [facility] Last Admin: 05/29/20 13:47 Dose: 1,000 mg Documented by: Atorvastatin Calcium (Atorvastatin Calcium 40 Mg Tablet) 40 mg PO QHS [facility] Last Admin: 05/29/20 21:26 Dose: 40 mg Documented by: Buspirone HCl (Buspirone 5 Mg Tablet) 10 mg PO DAILY [facility] Last Admin: 05/29/20 13:49 Dose: 10 mg Documented by: Calcitriol (Calcitriol 0.25 Mcg Capsule) 0.25 mcg PO DAILY [facility] Last Admin: 05/29/20 13:50 Dose: 0.25 mcg Documented by: Carvedilol (Carvedilol 12.5 Mg Tablet) 12.5 mg PO BID [facility] Last Admin: 05/29/20 21:27 Dose: 12.5 mg Documented by: Cholecalciferol (Cholecalciferol (Vit D3) 25 Mcg Tablet (1,000 Units)) 25 mcg PO DAILY [facility] Last Admin: 05/29/20 13:48 Dose: 25 mcg Documented by: Clopidogrel Bisulfate (Clopidogrel Bisulfate 75 Mg Tablet) 75 mg PO DAILY [facility] Last Admin: 05/29/20 13:48 Dose: 75 mg Documented by: Dextrose (Dextrose 50%-Water 25 Gm/50 Ml Disp.Syrin) 0 gm IV X1 PRN; Protocol PRN Reason: Hypoglycemia Dicyclomine HCl (Dicyclomine 10 Mg Capsule) 20 mg PO TIDAC [facility] Last Admin: 05/30/20 06:42 Dose: 20 mg Documented by: Furosemide (Furosemide 40 Mg Tablet) 40 mg PO BID@1000,1800 [facility] Last Admin: 05/29/20 17:25 Dose: 40 mg Documented by: Gabapentin (Gabapentin 100 Mg Capsule) 100 mg PO BID [facility] Last Admin: 05/29/20 21:27 Dose: 100 mg Documented by: Glucagon (Glucagon 1 Mg/Ml Syringe) 1 mg IM .X1 PRN PRN Reason: Hypoglycemia Hydralazine HCl (Hydralazine 25 Mg Tablet) 25 mg PO TID [facility] Last Admin: 05/30/20 06:42 Dose: 25 mg Documented by: Insulin Glargine (Insulin Glargine 100 Units/Ml Pen) 12 units SC QHS [facility] Last Admin: 05/29/20 21:27 Dose: 12 u Documented by: Insulin Human Lispro (Insulin Lispro 100 Unit/Ml Insuln.Pen) 0 unit SC TIDAC [facility]; Protocol Last Admin: 05/30/20 06:41 Dose: Not Given Documented by: Multi-Ingredient Cream (Mineral Oil/Petrolatum,White Jar) 1 applic TOPICAL BID PRN [facility]; Protocol Last Admin: 05/24/20 08:22 Dose: 1 applic Documented by: Multivit/Ca Carb/B Cmplx/FA/Prenat (Folic Acid/Vitamin B Comp W-C 1 Capsule) 1 capsule PO DAILY [facility] Last Admin: 05/29/20 13:50 Dose: 1 capsule Documented by: Multivitamins ([facility]ivitamins,Therapeutic Tablet) [facility] Last Admin: 05/29/20 13:47 Dose: 1 tablet Documented by: Nifedipine (Nifedipine 90 Mg Tablet) 90 mg PO DAILY [facility] Last Admin: 05/29/20 13:50 Dose: 90 mg Documented by: Nitroglycerin (Nitroglycerin (Inpatient Use) 0.4 Mg Tab.Subl) 0.4 mg SL Q5M PRN PRN Reason: CARDIAC/CHEST PAIN Last Admin: 05/23/20 20:55 Dose: 0.4 mg Documented by: Pantoprazole Sodium (Pantoprazole Sodium 40 Mg Tablet) 40 mg PO DAILY [facility] Last Admin: 05/29/20 13:48 Dose: 40 mg Documented by: Pyridoxine HCl (Pyridoxine Hcl 100 Mg Tablet) 100 mg PO DAILY [facility] Last Admin: 05/29/20 13:48 Dose: 100 mg Documented by: Simethicone (Simethicone 80 Mg Tablet) 80 mg PO TIDPC [facility] Last Admin: 05/29/20 17:25 Dose: 80 mg Documented by: Sodium Bicarbonate (Sodium Bicarbonate 650 Mg Tablet) 650 mg PO BID [facility] Last Admin: 05/29/20 21:27 Dose: 650 mg Documented by: Sodium Chloride (0.9% Saline Lock 10 Ml Syringe) 10 - 40 ml IV UD PRN PRN Reason: SALINE FLUSH Last Admin: 05/25/20 17:12 Dose: 10 ml Documented by: Venlafaxine HCl (Venlafaxine Xr 150 Mg Capsule) 150 mg PO DAILY [facility] Last Admin: 05/29/20 13:49 Dose: 150 mg Documented by: Medical Necessity - Tobacco Use Smoking Status: Former smoker - Quit 2000 Assessment/Plan All Active Problems Chronic 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 (Resolved) Ulcer of left lower extremity with fat layer exposed (Resolved) Chest pain (Acute) (HFpEF) heart failure with preserved ejection fraction (Acute) Atrial fibrillation (Acute) Diastolic CHF, acute (Acute) CHF (congestive heart failure) (Acute) 60-year-old male with acute kidney injury 1. Continue to monitor urine output and creatinine over the weekend. If the patient still requires dialysis, Monday he will have dialysis Monday morning and then the line will be removed and I will place a left IJ catheter in the afternoon on Monday. I discussed this with him and he is in agreement. I discussed the risks including but not limited to bleeding, infection, pneumothorax, DVT. The patient understands the risks and is willing to proceed. Niles Louise MD Pager: [facility] [address] [place] [address], [address] [place] [address] Office:
[2020-05-30 06:56] LABS: Bedside Glucose 117 mg/dL (70-110)
[2020-05-30] MEDS: Multivitamins,Therapeutic Tablet 1 TABLET PO (07:47)
[2020-05-30 07:58] LABS: Anion Gap 8 (5-15); BUN 39 mg/dL (7-18); BUN/Creat Ratio 10.8 RATIO (10-20); Calcium,Total 8.8 mg/dL (8.5-10.1); Chloride 102 mmol/L (98-107); Creatinine, Serum 3.62 mg/dL (0.70-1.30); EST Glomerular Filtration Rate 18 mL/min (>60); Est Glom Filt Rate - Afr Amer 22 mL/min (>60); Estimated Creatinine Clearance 21.26 ml/min; Glucose 107 mg/dL (74-106); Potassium 3.5 mmol/L (3.5-5.1); Sodium Level 138 mmol/L (136-145)
[2020-05-30] MEDS: NIFEdipine 90 MG Tablet PO (08:48)
[2020-05-30] MEDS: Sodium Bicarbonate 650 MG Tablet PO ×2 (08:48→21:30)
[2020-05-30] MEDS: Ascorbic Acid 500 MG Tablet 1000 MG PO (08:48)
[2020-05-30] MEDS: Pantoprazole Sodium 40 MG Tablet PO (08:48)
[2020-05-30] MEDS: Folic Acid/Vitamin B Comp W-C 1 Capsule 1 CAP PO (08:48)
[2020-05-30] MEDS: busPIRone 5 MG Tablet 10 MG PO (08:48)
[2020-05-30] MEDS: Calcitriol 0.25 MCG Capsule PO (08:48)
[2020-05-30] MEDS: Venlafaxine XR 150 MG Capsule PO (08:48)
[2020-05-30] MEDS: Cholecalciferol (VIT D3) 25 MCG TABLET (1,000 UNITS) PO (08:49)
[2020-05-30] MEDS: Gabapentin 100 MG Capsule PO ×2 (08:49→21:30)
[2020-05-30] MEDS: Clopidogrel Bisulfate 75 MG Tablet PO (08:49)
[2020-05-30] MEDS: Pyridoxine HCl 100 MG Tablet PO (08:49)
[2020-05-30] MEDS: Furosemide 40 MG Tablet PO ×2 (08:49→17:59)
[2020-05-30] MEDS: Carvedilol 12.5 MG Tablet PO ×2 (08:49→21:30)
[2020-05-30 11:20] LABS: Bedside Glucose 118 mg/dL (70-110)
--- NOTE | 2020-05-30 16:15 | PN_ITS ---
Patient Problems: Active and Suspected Problems Malnutrition (Suspected) Chest pain (Acute) (HFpEF) heart failure with preserved ejection fraction (Acute) Atrial fibrillation (Acute) Diastolic CHF, acute (Acute) CHF (congestive heart failure) (Acute) Reason for Visit: Follow-up for acute hypoxic respiratory failure, heart failure exacerbation and new start of hemodialysis Objective: Temperature 99.5 but no fever. Overall, patient shortness of breath much improved after fluid removal from hemodialysis. He is on room air. Lost about 25 pounds after the start of hemodialysis Physical exam General: Alert, Oriented x3, Cooperative HEENT: Atraumatic, PERRLA, EOMI, Normocephalic Oral: No Gingival or Mucosal Lesions/ Ulcerations Neck: Supple, No JVD, Negative Carotid Bruits Lungs: Air entry diminished in bilateral lung bases. No crepitation/rhonchi Cardiovascular: Regular rate, Regular Rhythm, Normal S1, Normal S2, systolic murmur over LLSB second ICS Abdomen: Bowel Sounds Present, Soft, Non Tender, Non-Distended : No renal angle tenderness. No suprapubic tenderness. Extremities: Bilateral lower extremity improved., Capillary Refill Less than 3 Seconds Skin: No rashes, No breakdown Musculoskeletal: No Tenderness to Palpation of Joints or Extremities Neurological: Cranial nerves II-XII grossly intact, Deep Tendon Reflexes 2+/4 and Symmetrical, Neuro grossly intact Psych/Mental Status: Normal Affect, Appropriate. Vitals/I&O's: Vital Signs Temp Pulse Resp BP Pulse Ox 99.5 F H 79 18 128/55 H 96 05/30/20 13:53 05/30/20 15:10 05/30/20 13:53 05/30/20 13:53 05/30/20 13:53 Oxygen Flow Rate (L/min) 1 Oxygen Delivery Method Room Air Weight: 309 lb 8.464 oz Body Mass Index (BMI) 51.2 Intake and Output for Last 24 Hours 05/28/20 05/29/20 05/30/20 23:59 23:59 23:59 Intake Total 1005 / 1005 585 / 705 340 / 340 Output Total 3000 / 3000 3500 / 3500 Balance -1994 / -2914 / 340 / 340 Microbiology Past 72 Hours 05/25/20 05:00 Blood Culture (Wb) - Right Forearm Blood Culture - Final No growth in 5 days. 05/25/20 04:54 Blood Culture (Wb) - Anticubital Right Blood Culture - Final No growth in 5 days. 05/25/20 16:00 Interface Orders Urine Culture - Final Culture exhibits no growth. Laboratory Results 05/29/20 16:13: POC Glucose 138 H 05/29/20 21:23: POC Glucose 131 H 05/30/20 05:55: WBC 11.5 H, RBC 3.02 L, Hgb 8.4 L, Hct 27.5 L, MCV 91.1, MCH 27.8, MCHC 30.5 L, RDW Std Deviation 48.8 H, RDW Coeff of Kassandra 15.4 H, Plt Count 264, MPV 10.3, Immature Gran % (Auto) 0.400, Neut % (Auto) 70.9 H, Lymph % (Auto) 15.1 L, [place] % (Auto) 10.3 H, Eos % (Auto) 3.0, Baso % (Auto) 0.3, Absolute Neuts (auto) 8.2 H, Absolute Lymphs (auto) 1.74, Nucleated RBC % 0 05/30/20 05:55: Sodium 138, Potassium 3.5, Chloride 102, Carbon Dioxide 28.0, Anion Gap 8, BUN 39 H, Creatinine 3.62 H, Estim Creat Clear Calc 21.26, Est GFR (MDRD) Af Amer 22 L, Est GFR (MDRD) Non-Af 18 L, BUN/Creatinine Ratio 10.8, Glucose 107 H, Calcium 8.8 05/30/20 06:40: POC Glucose 117 H 05/30/20 11:08: POC Glucose 118 H Current Medications Acetaminophen (Acetaminophen 325 Mg Tablet) 650 mg PO Q6H PRN PRN PRN Reason: Pain Score 1-10/Temp > 100.7 F Last Admin: 05/25/20 16:40 Dose: 650 mg Documented by: Al Hydroxide/Mg Hydroxide (Mag Hydrox/Al Hydrox/Simeth 30 Ml Udc) 30 ml PO Q4H PRN PRN PRN Reason: DYSPEPSIA Last Admin: 05/23/20 21:00 Dose: 30 ml Documented by: Albuterol/Ipratropium (Ipratropium/Albuterol Sulfate 3 Ml Ampul.Neb) 3 ml INHALATION Q6HWA.RT [facility] Last Admin: 05/29/20 18:56 Dose: 3 ml Documented by: Ascorbic Acid (Ascorbic Acid 500 Mg Tablet) 1,000 mg PO DAILY [facility] Last Admin: 05/30/20 08:48 Dose: 1,000 mg Documented by: Atorvastatin Calcium (Atorvastatin Calcium 40 Mg Tablet) 40 mg PO QHS [facility] Last Admin: 05/29/20 21:26 Dose: 40 mg Documented by: Buspirone HCl (Buspirone 5 Mg Tablet) 10 mg PO DAILY [facility] Last Admin: 05/30/20 08:48 Dose: 10 mg Documented by: Calcitriol (Calcitriol 0.25 Mcg Capsule) 0.25 mcg PO DAILY [facility] Last Admin: 05/30/20 08:48 Dose: 0.25 mcg Documented by: Carvedilol (Carvedilol 12.5 Mg Tablet) 12.5 mg PO BID [facility] Last Admin: 05/30/20 08:49 Dose: 12.5 mg Documented by: Cholecalciferol (Cholecalciferol (Vit D3) 25 Mcg Tablet (1,000 Units)) 25 mcg PO DAILY [facility] Last Admin: 05/30/20 08:49 Dose: 25 mcg Documented by: Clopidogrel Bisulfate (Clopidogrel Bisulfate 75 Mg Tablet) 75 mg PO DAILY [facility] Last Admin: 05/30/20 08:49 Dose: 75 mg Documented by: Dextrose (Dextrose 50%-Water 25 Gm/50 Ml Disp.Syrin) 0 gm IV X1 PRN; Protocol PRN Reason: Hypoglycemia Dicyclomine HCl (Dicyclomine 10 Mg Capsule) 20 mg PO TIDAC [facility] Last Admin: 05/30/20 11:09 Dose: 20 mg Documented by: Furosemide (Furosemide 40 Mg Tablet) 40 mg PO BID@1000,1800 [facility] Last Admin: 05/30/20 08:49 Dose: 40 mg Documented by: Gabapentin (Gabapentin 100 Mg Capsule) 100 mg PO BID [facility] Last Admin: 05/30/20 08:49 Dose: 100 mg Documented by: Glucagon (Glucagon 1 Mg/Ml Syringe) 1 mg IM .X1 PRN PRN Reason: Hypoglycemia Hydralazine HCl (Hydralazine 25 Mg Tablet) 25 mg PO TID [facility] Last Admin: 05/30/20 13:55 Dose: 25 mg Documented by: Insulin Glargine (Insulin Glargine 100 Units/Ml Pen) 12 units SC QHS [facility] Last Admin: 05/29/20 21:27 Dose: 12 u Documented by: Insulin Human Lispro (Insulin Lispro 100 Unit/Ml Insuln.Pen) 0 unit SC TIDAC [facility]; Protocol Last Admin: 05/30/20 11:52 Dose: Not Given Documented by: Multi-Ingredient Cream (Mineral Oil/Petrolatum,White Jar) 1 applic TOPICAL BID PRN [facility]; Protocol Last Admin: 05/24/20 08:22 Dose: 1 applic Documented by: Multivit/Ca Carb/B Cmplx/FA/Prenat (Folic Acid/Vitamin B Comp W-C 1 Capsule) 1 capsule PO DAILY [facility] Last Admin: 05/30/20 08:48 Dose: 1 capsule Documented by: Multivitamins ([facility]itamins,Therapeutic Tablet) [facility] Last Admin: 05/30/20 07:47 Dose: 1 tablet Documented by: Nifedipine (Nifedipine 90 Mg Tablet) 90 mg PO DAILY [facility] Last Admin: 05/30/20 08:48 Dose: 90 mg Documented by: Nitroglycerin (Nitroglycerin (Inpatient Use) 0.4 Mg Tab.Subl) 0.4 mg SL Q5M PRN PRN Reason: CARDIAC/CHEST PAIN Last Admin: 05/23/20 20:55 Dose: 0.4 mg Documented by: Pantoprazole Sodium (Pantoprazole Sodium 40 Mg Tablet) 40 mg PO DAILY [facility] Last Admin: 05/30/20 08:48 Dose: 40 mg Documented by: Pyridoxine HCl (Pyridoxine Hcl 100 Mg Tablet) 100 mg PO DAILY [facility] Last Admin: 05/30/20 08:49 Dose: 100 mg Documented by: Simethicone (Simethicone 80 Mg Tablet) 80 mg PO TIDPC [facility] Last Admin: 05/30/20 12:06 Dose: 80 mg Documented by: Sodium Bicarbonate (Sodium Bicarbonate 650 Mg Tablet) 650 mg PO BID [facility] Last Admin: 05/30/20 08:48 Dose: 650 mg Documented by: Sodium Chloride (0.9% Saline Lock 10 Ml Syringe) 10 - 40 ml IV UD PRN PRN Reason: SALINE FLUSH Last Admin: 05/25/20 17:12 Dose: 10 ml Documented by: Venlafaxine HCl (Venlafaxine Xr 150 Mg Capsule) 150 mg PO DAILY [facility] Last Admin: 05/30/20 08:48 Dose: 150 mg Documented by: STROKE Vital Signs/Narrative: Vital Signs Temp Pulse Resp BP Pulse Ox 05/30/20 15:10 79 05/30/20 13:55 85 05/30/20 13:53 99.5 F H 85 18 128/55 H 96 Medical Necessity - Tobacco Use Smoking Status: Former smoker - Quit 2000 Assessment/Plan All Active Problems Chronic 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 (Resolved) Ulcer of left lower extremity with fat layer exposed (Resolved) Chest pain (Acute) (HFpEF) heart failure with preserved ejection fraction (Acute) Atrial fibrillation (Acute) Diastolic CHF, acute (Acute) CHF (congestive heart failure) (Acute) patient is a 60-year-old question gentleman with multiple comorbidities admitted with acute hypoxic respiratory failure secondary to acute on chronic d iastolic heart failure. 1. Acute hypoxemic respiratory failure secondary to acute on chronic diastolic heart failure: Previous echo of 2016 shows EF 55% with moderate concentric LVH, LA moderately enlarged suggestive of diastolic heart failure/HFpEF. Repeat echo at this time as mentioned below, EF 60% mainly diastolic heart failure. Mild pulmonary hypertension, RVSP 42 mmHg. Stage II diastolic dysfunction. 05/29: Today is her third day of hemodialysis. Significant improvement of lower extremity swelling. Patient oxygenation improved currently on 1 to 2 L of oxygen. 05/30: Pulse ox 96% on room air. Off oxygen after start of dialysis. 2. Acute kidney injury on CKD stage 5: Due to diuretics, heart failure versus progressive diabetic nephropathy: Being followed by customer care agent. 24-hour timed urine collection shows creatinine kinase 13 mL/min suggestive of CKD stage V. Renal sonogram shows no obstructive uropathy or suspicious solid renal lesion. Discussed with the customer care agent and surgeon regarding dialysis catheter access. Getting hemodialysis. Had 2 units of FFP yesterday. INR 1.6. 05/29: Discussed with customer care agent. No plan for dialysis during the weekend. Tunnel dialysis catheter on Monday and then possible discharge in 1 to 2 days 3. severe anemia due to chronic kidney disease patient had 3 units of PRBC transfusion. H&H is stable 7.9/26 05/30: H&H is stable, 8.4/27. 4. Diabetes mellitus type 2. glucose is controlled. A1c 6.3. 5. Paroxysmal A. fib. Patient converted to sinus rhythm as per EKG of today showed sinus rhythm with PAC similar to secured entrance monitor. Previous EKG May 23 shows A. fib at 133 bpm. Other comorbidities include coronary artery disease, history of DVT depression and morbid obesity: Microbiology Past 72 Hours 05/25/20 16:00 Interface Orders Urine Culture - Final Culture exhibits no growth. 05/25/20 05:00 Blood Culture (Wb) - Right Forearm Blood Culture - Pr eliminary No growth in 48 hours. 05/25/20 04:54 Blood Culture (Wb) - Anticubital Right Blood Culture - Preliminary No growth in 48 hours. Laboratory Results 05/26/20 04:30: Hep B Core Total Ab Negative 05/28/20 16:18: POC Glucose 144 H 05/28/20 21:54: POC Glucose 138 H 05/29/20 07:03: POC Glucose 103 05/29/20 08:41: WBC 9.5, RBC 2.89 L, Hgb 7.9 L, Hct 26.0 L, MCV 90.0, MCH 27.3, MCHC 30.4 L, RDW Std Deviation 49.1 H, RDW Coeff of Kassandra 15.2 H, Plt Count 233, MPV 10.2, Immature Gran % (Auto) 0.500, Neut % (Auto) 69.4, Lymph % (Auto) 16.8 L, [place] % (Auto) 10.5 H, Eos % (Auto) 2.6, Baso % (Auto) 0.2, Absolute Neuts (auto) 6.6, Absolute Lymphs (auto) 1.60, Nucleated RBC % 0 05/29/20 08:41: Sodium 139, Potassium 3.6, Chloride 104, Carbon Dioxide 28.0, Anion Gap 7, BUN 54 H, Creatinine 4.41 H, Estim Creat Clear Calc 17.45, Est GFR (MDRD) Af Amer 18 L, Est GFR (MDRD) Non-Af 15 L, BUN/Creatinine Ratio 12.2, Glucose 102, Calcium 8.7 05/29/20 11:19: POC Glucose 132 H Clinical Impression(s) from Imaging Studies Chest X-Ray 05/23/20 08:50 IMPRESSION: Cardiomegaly and pulmonary venous congestion. Superimposed mild infiltrate in right lung base is difficult to entirely exclude. Electronically Signed: Nate Bobyb MD at 9:23 EDT Tel , Service support , Echocardiogram 05/23/20 11:42 Interpretation Summary Normal LV size. Moderate concentric left ventricular hypertrophy. Left ventricular systolic function is normal. The estimated ejection fraction is 60 %. Stage 2 diastolic dysfunction. Pulmonary artery systolic pressure is 42 mmHg. Mild pulmonary hypertension. Small pericardial effusion. There are no echocardiographic indications of cardiac tamponade. Chest X-Ray 05/25/20 04:35 IMPRESSION: Worsening asymmetric vascular congestion and/or bilateral pneumonia. Stable cardiomegaly. Electronically Signed: Skyler Graham MD at 6:19 EDT , Service support , Renal Ultrasound 05/25/20 05:55 IMPRESSION: No obstructive uropathy or suspicious solid renal lesion Nonobstructing left nephrolithiasis Bladder diverticulum Electronically Signed: Giovanni Huston MD at 10:19 EDT , Service support , Saphenous Venous Mapping 05/25/20 07:59 Interpretation Summary Dimensions of bilateral cephalic and basilic veins bilaterally IV is noted in a potential fistula vein--the cephalic vein of the left wrist. Increased velocity flow bilateral brachial and radial arteries. Chest X-Ray 05/27/20 11:10 IMPRESSION: Ill-defined subpleural groundglass opacities are seen more prominent in the lung bases , may represent atypical pneumonia or viral pneumonia (COVID-19 ?). Inpatient E&M: 26540 Subs Hosp L2
[2020-05-30] MEDS: Insulin Lispro 100 UNIT/ML INSULN.PEN SC (16:35)
[2020-05-30 17:05] LABS: Bedside Glucose 165 mg/dL (70-110)
[2020-05-30] MEDS: Ipratropium/Albuterol Sulfate 3 ML AMPUL.NEB INHALATION (18:51)
[2020-05-30] MEDS: Atorvastatin Calcium 40 MG Tablet PO (21:30)
[2020-05-30 22:00] LABS: Bedside Glucose 157 mg/dL (70-110)
[2020-05-31] VITALS (17 sets, daily range): BP systolic 125–161; BP diastolic 51–87; PULSE 72–91; RESP 16–20; TEMP 36.5–37.3; O2SAT 92–98
[2020-05-31] MEDS: Benzonatate 100 MG Capsule PO (00:22)
[2020-05-31 06:33] LABS: Absolute Lymphocyte Count 1.85 X10^3/uL (0.83-4.51); Absolute Neutrophil Count 8.2 X10^3/uL (2.0-7.7); Basophil# 0.04 X10^3/uL; Basophil% 0.3 % (0-1); Eosinophil# 0.32 X10^3/uL; Eosinophils% 2.8 % (0-5); Hematocrit 27.7 % (40-54); Hemoglobin 8.4 g/dL (13.0-16.5); Lymphocyte # 1.85 X10^3/ul (4.0); Mean Corp Hgb Conc 30.3 g/dL (32-36); Mean Corpuscular Hgb 27.2 pg (27.0-32.0); Mean Corpuscular Volume 89.6 fL (80-94); Mean Platelet Vol. 10.2 fl (6.2-12.0); Monocyte# 1.11 X10^3/uL; Monocyte% 9.6 % (0-10); NRBC Flagged by Analyzer 0 % (0-5); Neutrophil % 70.8 % (47-70); Platelet Count 270 K/mm3 (150-450); RBC Distribution Width CV 15.5 % (11.6-14.6); RBC Distribution Width SD 49.5 fl (35.1-43.9); Red Blood Count 3.09 M/mm3 (4.6-6.2); White Blood Count 11.6 K/mm3 (4.4-11.0)
[2020-05-31] MEDS: hydrALAZINE 25 MG Tablet PO ×3 (06:37→21:13)
[2020-05-31] MEDS: Dicyclomine 10 MG Capsule 20 MG PO ×3 (06:37→16:33)
[2020-05-31 06:55] LABS: Bedside Glucose 145 mg/dL (70-110)
[2020-05-31 07:01] LABS: Anion Gap 9 (5-15); BUN 52 mg/dL (7-18); BUN/Creat Ratio 11.5 RATIO (10-20); Calcium,Total 8.8 mg/dL (8.5-10.1); Chloride 102 mmol/L (98-107); Creatinine, Serum 4.52 mg/dL (0.70-1.30); EST Glomerular Filtration Rate 14 mL/min (>60); Est Glom Filt Rate - Afr Amer 17 mL/min (>60); Estimated Creatinine Clearance 17.02 ml/min; Glucose 140 mg/dL (74-106); Potassium 3.5 mmol/L (3.5-5.1); Sodium Level 137 mmol/L (136-145)
--- NOTE | 2020-05-31 07:25 | NURSING ---
Dr. Louise removed [facility] dialysis catheter. Post site intact. 4x4 gauze and tape placed by Dr. Louise.
[2020-05-31] MEDS: Multivitamins,Therapeutic Tablet 1 TABLET PO (07:31)
--- NOTE | 2020-05-31 07:32 | PCM.PN.SRG ---
Patient Problems: Active and Suspected Problems Malnutrition (Suspected) Chest pain (Acute) (HFpEF) heart failure with preserved ejection fraction (Acute) Atrial fibrillation (Acute) Diastolic CHF, acute (Acute) CHF (congestive heart failure) (Acute) Subjective: No issues overnight - Physical Exam Vitals/I&O's: Vital Signs Temp Pulse Resp BP Pulse Ox 98.8 F 79 16 161/87 H 96 05/31/20 06:30 05/31/20 06:37 05/31/20 06:30 05/31/20 06:30 05/31/20 06:30 Oxygen Flow Rate (L/min) 1 Oxygen Delivery Method Room Air Weight: 308 lb 3.3 oz Body Mass Index (BMI) 51.2 Intake and Output for Last 24 Hours 05/29/20 05/30/20 05/31/20 23:59 23:59 23:59 Intake Total 585 / 705 740 / 800 120 / 120 Output Total 3500 / 3500 850 / 850 Balance -2915 / -2795 740 / 575 -730 / -730 General: Alert, Oriented x3 Lungs: Normal air movement Cardiovascular: Regular rate, Regular Rhythm Abdomen: Soft, Non Tender, Non-Distended Microbiology Past 72 Hours 05/25/20 05:00 Blood Culture (Wb) - Right Forearm Blood Culture - Final No growth in 5 days. 05/25/20 04:54 Blood Culture (Wb) - Anticubital Right Blood Culture - Final No growth in 5 days. 05/25/20 16:00 Interface Orders Urine Culture - Final Culture exhibits no growth. Laboratory Results 05/30/20 05:55: Sodium 138, Potassium 3.5, Chloride 102, Carbon Dioxide 28.0, Anion Gap 8, BUN 39 H, Creatinine 3.62 H, Estim Creat Clear Calc 21.26, Est GFR (MDRD) Af Amer 22 L, Est GFR (MDRD) Non-Af 18 L, BUN/Creatinine Ratio 10.8, Glucose 107 H, Calcium 8.8 05/30/20 11:08: POC Glucose 118 H 05/30/20 16:33: POC Glucose 165 H 05/30/20 21:26: POC Glucose 157 H 05/31/20 05:45: WBC 11.6 H, RBC 3.09 L, Hgb 8.4 L, Hct 27.7 L, MCV 89.6, MCH 27.2, MCHC 30.3 L, RDW Std Deviation 49.5 H, RDW Coeff of Kassandra 15.5 H, Plt Count 270, MPV 10.2, Immature Gran % (Auto) 0.500, Neut % (Auto) 70.8 H, Lymph % (Auto) 16.0 L, [place] % (Auto) 9.6, Eos % (Auto) 2.8, Baso % (Auto) 0.3, Absolute Neuts (auto) 8.2 H, Absolute Lymphs (auto) 1.85, Nucleated RBC % 0 05/31/20 05:45: Sodium 137, Potassium 3.5, Chloride 102, Carbon Dioxide 26.0, Anion Gap 9, BUN 52 H, Creatinine 4.52 H, Estim Creat Clear Calc 17.02, Est GFR (MDRD) Af Amer 17 L, Est GFR (MDRD) Non-Af 14 L, BUN/Creatinine Ratio 11.5, Glucose 140 H, Calcium 8.8 05/31/20 06:36: POC Glucose 145 H Current Medications Acetaminophen (Acetaminophen 325 Mg Tablet) 650 mg PO Q6H PRN PRN PRN Reason: Pain Score 1-10/Temp > 100.7 F Last Admin: 05/25/20 16:40 Dose: 650 mg Documented by: Al Hydroxide/Mg Hydroxide (Mag Hydrox/Al Hydrox/Simeth 30 Ml Udc) 30 ml PO Q4H PRN PRN PRN Reason: DYSPEPSIA Last Admin: 05/23/20 21:00 Dose: 30 ml Documented by: Albuterol/Ipratropium (Ipratropium/Albuterol Sulfate 3 Ml Ampul.Neb) 3 ml INHALATION Q6HWA.RT [facility] Last Admin: 05/30/20 18:51 Dose: 3 ml Documented by: Ascorbic Acid (Ascorbic Acid 500 Mg Tablet) 1,000 mg PO DAILY [facility] Last Admin: 05/30/20 08:48 Dose: 1,000 mg Documented by: Atorvastatin Calcium (Atorvastatin Calcium 40 Mg Tablet) 40 mg PO QHS [facility] Last Admin: 05/30/20 21:30 Dose: 40 mg Documented by: Benzonatate (Benzonatate 100 Mg Capsule) 100 mg PO BID PRN PRN PRN Reason: COUGH Last Admin: 05/31/20 00:22 Dose: 100 mg Documented by: Buspirone HCl (Buspirone 5 Mg Tablet) 10 mg PO DAILY [facility] Last Admin: 05/30/20 08:48 Dose: 10 mg Documented by: Calcitriol (Calcitriol 0.25 Mcg Capsule) 0.25 mcg PO DAILY [facility] Last Admin: 05/30/20 08:48 Dose: 0.25 mcg Documented by: Carvedilol (Carvedilol 12.5 Mg Tablet) 12.5 mg PO BID [facility] Last Admin: 05/30/20 21:30 Dose: 12.5 mg Documented by: Cholecalciferol (Cholecalciferol (Vit D3) 25 Mcg Tablet (1,000 Units)) 25 mcg PO DAILY [facility] Last Admin: 05/30/20 08:49 Dose: 25 mcg Documented by: Clopidogrel Bisulfate (Clopidogrel Bisulfate 75 Mg Tablet) 75 mg PO DAILY [facility] Last Admin: 05/30/20 08:49 Dose: 75 mg Documented by: Dextrose (Dextrose 50%-Water 25 Gm/50 Ml Disp.Syrin) 0 gm IV X1 PRN; Protocol PRN Reason: Hypoglycemia Dicyclomine HCl (Dicyclomine 10 Mg Capsule) 20 mg PO TIDAC [facility] Last Admin: 05/31/20 06:37 Dose: 20 mg Documented by: Furosemide (Furosemide 40 Mg Tablet) 40 mg PO BID@1000,1800 [facility] Last Admin: 05/30/20 17:59 Dose: 40 mg Documented by: Gabapentin (Gabapentin 100 Mg Capsule) 100 mg PO BID [facility] Last Admin: 05/30/20 21:30 Dose: 100 mg Documented by: Glucagon (Glucagon 1 Mg/Ml Syringe) 1 mg IM .X1 PRN PRN Reason: Hypoglycemia Hydralazine HCl (Hydralazine 25 Mg Tablet) 25 mg PO TID [facility] Last Admin: 05/31/20 06:37 Dose: 25 mg Documented by: Insulin Glargine (Insulin Glargine 100 Units/Ml Pen) 12 units SC QHS [facility] Last Admin: 05/30/20 21:29 Dose: 12 u Documented by: Insulin Human Lispro (Insulin Lispro 100 Unit/Ml Insuln.Pen) 0 unit SC TIDAC [facility]; Protocol Last Admin: 05/31/20 06:37 Dose: Not Given Documented by: Multi-Ingredient Cream (Mineral Oil/Petrolatum,White Jar) 1 applic TOPICAL BID PRN [facility]; Protocol Last Admin: 05/24/20 08:22 Dose: 1 applic Documented by: Multivit/Ca Carb/B Cmplx/FA/Prenat (Folic Acid/Vitamin B Comp W-C 1 Capsule) 1 capsule PO DAILY [facility] Last Admin: 05/30/20 08:48 Dose: 1 capsule Documented by: Multivitamins ([facility]itamins,Therapeutic Tablet) [facility] Last Admin: 05/31/20 07:31 Dose: 1 tablet Documented by: Nifedipine (Nifedipine 90 Mg Tablet) 90 mg PO DAILY [facility] Last Admin: 05/30/20 08:48 Dose: 90 mg Documented by: Nitroglycerin (Nitroglycerin (Inpatient Use) 0.4 Mg Tab.Subl) 0.4 mg SL Q5M PRN PRN Reason: CARDIAC/CHEST PAIN Last Admin: 05/23/20 20:55 Dose: 0.4 mg Documented by: Pantoprazole Sodium (Pantoprazole Sodium 40 Mg Tablet) 40 mg PO DAILY [facility] Last Admin: 05/30/20 08:48 Dose: 40 mg Documented by: Pyridoxine HCl (Pyridoxine Hcl 100 Mg Tablet) 100 mg PO DAILY [facility] Last Admin: 05/30/20 08:49 Dose: 100 mg Documented by: Simethicone (Simethicone 80 Mg Tablet) 80 mg PO TIDPC [facility] Last Admin: 05/31/20 07:31 Dose: 80 mg Documented by: Sodium Bicarbonate (Sodium Bicarbonate 650 Mg Tablet) 650 mg PO BID [facility] Last Admin: 05/30/20 21:30 Dose: 650 mg Documented by: Sodium Chloride (0.9% Saline Lock 10 Ml Syringe) 10 - 40 ml IV UD PRN PRN Reason: SALINE FLUSH Last Admin: 05/25/20 17:12 Dose: 10 ml Documented by: Venlafaxine HCl (Venlafaxine Xr 150 Mg Capsule) 150 mg PO DAILY [facility] Last Admin: 05/30/20 08:48 Dose: 150 mg Documented by: Medical Necessity - Tobacco Use Smoking Status: Former smoker - Quit 2000 Assessment/Plan All Active Problems Chronic 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 (Resolved) Ulcer of left lower extremity with fat layer exposed (Resolved) Chest pain (Acute) (HFpEF) heart failure with preserved ejection fraction (Acute) Atrial fibrillation (Acute) Diastolic CHF, acute (Acute) CHF (congestive heart failure) (Acute) 60-year-old male with acute on chronic kidney injury 1. Patient is doing well and I removed his right temporary dialysis catheter at the bedside this morning. There was minimal bleeding. A pressure dressing was applied. 2. Plan for tunneled right IJ temporary dialysis catheter placement in the OR tomorrow. Niles Louise MD Pager: [facility] [address] [place] [address], [address] [place] [address] Office:
[2020-05-31] MEDS: Ipratropium/Albuterol Sulfate 3 ML AMPUL.NEB INHALATION ×3 (07:47→20:22)
[2020-05-31] MEDS: NIFEdipine 90 MG Tablet PO (08:53)
[2020-05-31] MEDS: Calcitriol 0.25 MCG Capsule PO (08:53)
[2020-05-31] MEDS: Cholecalciferol (VIT D3) 25 MCG TABLET (1,000 UNITS) PO (08:53)
[2020-05-31] MEDS: busPIRone 5 MG Tablet 10 MG PO (08:53)
[2020-05-31] MEDS: Furosemide 40 MG Tablet PO ×2 (08:53→17:03)
[2020-05-31] MEDS: Ascorbic Acid 500 MG Tablet 1000 MG PO (08:53)
[2020-05-31] MEDS: Sodium Bicarbonate 650 MG Tablet PO ×2 (08:54→21:13)
[2020-05-31] MEDS: Carvedilol 12.5 MG Tablet PO ×2 (08:54→21:13)
[2020-05-31] MEDS: Clopidogrel Bisulfate 75 MG Tablet PO (08:54)
[2020-05-31] MEDS: Gabapentin 100 MG Capsule PO ×2 (08:54→21:13)
[2020-05-31] MEDS: Folic Acid/Vitamin B Comp W-C 1 Capsule 1 CAP PO (08:54)
[2020-05-31] MEDS: Venlafaxine XR 150 MG Capsule PO (08:54)
[2020-05-31] MEDS: Pantoprazole Sodium 40 MG Tablet PO (08:54)
[2020-05-31] MEDS: Pyridoxine HCl 100 MG Tablet PO (08:55)
[2020-05-31] MEDS: Insulin Lispro 100 UNIT/ML INSULN.PEN SC (10:59)
[2020-05-31 11:40] LABS: Bedside Glucose 167 mg/dL (70-110)
--- NOTE | 2020-05-31 15:08 | PCM.PN.HOSP ---
Patient Problems: Active and Suspected Problems Malnutrition (Suspected) Chest pain (Acute) (HFpEF) heart failure with preserved ejection fraction (Acute) Atrial fibrillation (Acute) Diastolic CHF, acute (Acute) CHF (congestive heart failure) (Acute) Reason for Visit: Follow-up for CHF exacerbation Objective: Heart rate and blood pressure controlled. Patient pulse ox 96% on room air Physical exam General: Alert, Oriented x3, Cooperative, resting comfortably and napping in the morning HEENT: Atraumatic, PERRLA, EOMI, Normocephalic Oral: No Gingival or Mucosal Lesions/ Ulcerations Neck: Supple, No JVD, Negative Carotid Bruits Lungs: Air entry diminished in bilateral lung bases. No crepitation/rhonchi Cardiovascular: Regular rate, Regular Rhythm, Normal S1, Normal S2, systolic murmur over LLSB second ICS Abdomen: Bowel Sounds Present, Soft, Non Tender, Non-Distended : No renal angle tenderness. No suprapubic tenderness. Extremities: Bilateral lower extremity improved., Capillary Refill Less than 3 Seconds Skin: No rashes, No breakdown Musculoskeletal: No Tenderness to Palpation of Joints or Extremities Neurological: Cranial nerves II-XII grossly intact, Deep Tendon Reflexes 2+/4 and Symmetrical, Neuro grossly intact Psych/Mental Status: Normal Affect, Appropriate. Vitals/I&O's: Vital Signs Temp Pulse Resp BP Pulse Ox 98.1 F 82 20 H 141/51 H 96 05/31/20 13:47 05/31/20 14:48 05/31/20 14:48 05/31/20 13:47 05/31/20 13:47 Oxygen Flow Rate (L/min) 1 Oxygen Delivery Method Room Air Weight: 308 lb 3.3 oz Body Mass Index (BMI) 51.2 Intake and Output for Last 24 Hours 05/29/20 05/30/20 05/31/20 23:59 23:59 23:59 Intake Total 585 / 705 740 / 800 420 / 420 Output Total 3500 / 3500 1450 / 1450 Balance -2915 / -2795 740 / 575 -1030 / -1030 Microbiology Past 72 Hours 05/25/20 05:00 Blood Culture (Wb) - Right Forearm Blood Culture - Final No growth in 5 days. 05/25/20 04:54 Blood Culture (Wb) - Anticubital Right Blood Culture - Final No growth in 5 days. Laboratory Results 05/30/20 16:33: POC Glucose 165 H 05/30/20 21:26: POC Glucose 157 H 05/31/20 05:45: WBC 11.6 H, RBC 3.09 L, Hgb 8.4 L, Hct 27.7 L, MCV 89.6, MCH 27.2, MCHC 30.3 L, RDW Std Deviation 49.5 H, RDW Coeff of Kassandra 15.5 H, Plt Count 270, MPV 10.2, Immature Gran % (Auto) 0.500, Neut % (Auto) 70.8 H, Lymph % (Auto) 16.0 L, Mckenzie % (Auto) 9.6, Eos % (Auto) 2.8, Baso % (Auto) 0.3, Absolute Neuts (auto) 8.2 H, Absolute Lymphs (auto) 1.85, Nucleated RBC % 0 05/31/20 05:45: Sodium 137, Potassium 3.5, Chloride 102, Carbon Dioxide 26.0, Anion Gap 9, BUN 52 H, Creatinine 4.52 H, Estim Creat Clear Calc 17.02, Est GFR (MDRD) Af Amer 17 L, Est GFR (MDRD) Non-Af 14 L, BUN/Creatinine Ratio 11.5, Glucose 140 H, Calcium 8.8 05/31/20 06:36: POC Glucose 145 H 05/31/20 10:58: POC Glucose 167 H Current Medications Acetaminophen (Acetaminophen 325 Mg Tablet) 650 mg PO Q6H PRN PRN PRN Reason: Pain Score 1-10/Temp > 100.7 F Last Admin: 05/25/20 16:40 Dose: 650 mg Documented by: Al Hydroxide/Mg Hydroxide (Mag Hydrox/Al Hydrox/Simeth 30 Ml Udc) 30 ml PO Q4H PRN PRN PRN Reason: DYSPEPSIA Last Admin: 05/23/20 21:00 Dose: 30 ml Documented by: Albuterol/Ipratropium (Ipratropium/Albuterol Sulfate 3 Ml Ampul.Neb) 3 ml INHALATION Q6HWA.RT [facility] Last Admin: 05/31/20 14:00 Dose: 3 ml Documented by: Ascorbic Acid (Ascorbic Acid 500 Mg Tablet) 1,000 mg PO DAILY [facility] Last Admin: 05/31/20 08:53 Dose: 1,000 mg Documented by: Atorvastatin Calcium (Atorvastatin Calcium 40 Mg Tablet) 40 mg PO QHS [facility] Last Admin: 05/30/20 21:30 Dose: 40 mg Documented by: Benzonatate (Benzonatate 100 Mg Capsule) 100 mg PO BID PRN PRN PRN Reason: COUGH Last Admin: 05/31/20 00:22 Dose: 100 mg Documented by: Buspirone HCl (Buspirone 5 Mg Tablet) 10 mg PO DAILY [facility] Last Admin: 05/31/20 08:53 Dose: 10 mg Documented by: Calcitriol (Calcitriol 0.25 Mcg Capsule) 0.25 mcg PO DAILY [facility] Last Admin: 05/31/20 08:53 Dose: 0.25 mcg Documented by: Carvedilol (Carvedilol 12.5 Mg Tablet) 12.5 mg PO BID [facility] Last Admin: 05/31/20 08:54 Dose: 12.5 mg Documented by: Cholecalciferol (Cholecalciferol (Vit D3) 25 Mcg Tablet (1,000 Units)) 25 mcg PO DAILY [facility] Last Admin: 05/31/20 08:53 Dose: 25 mcg Documented by: Clopidogrel Bisulfate (Clopidogrel Bisulfate 75 Mg Tablet) 75 mg PO DAILY [facility] Last Admin: 05/31/20 08:54 Dose: 75 mg Documented by: Dextrose (Dextrose 50%-Water 25 Gm/50 Ml Disp.Syrin) 0 gm IV X1 PRN; Protocol PRN Reason: Hypoglycemia Dicyclomine HCl (Dicyclomine 10 Mg Capsule) 20 mg PO TIDAC [facility] Last Admin: 05/31/20 10:59 Dose: 20 mg Documented by: Furosemide (Furosemide 40 Mg Tablet) 40 mg PO BID@1000,1800 [facility] Last Admin: 05/31/20 08:53 Dose: 40 mg Documented by: Gabapentin (Gabapentin 100 Mg Capsule) 100 mg PO BID [facility] Last Admin: 05/31/20 08:54 Dose: 100 mg Documented by: Glucagon (Glucagon 1 Mg/Ml Syringe) 1 mg IM .X1 PRN PRN Reason: Hypoglycemia Hydralazine HCl (Hydralazine 25 Mg Tablet) 25 mg PO TID [facility] Last Admin: 05/31/20 13:48 Dose: 25 mg Documented by: Insulin Glargine (Insulin Glargine 100 Units/Ml Pen) 12 units SC QHS [facility] Last Admin: 05/30/20 21:29 Dose: 12 u Documented by: Insulin Human Lispro (Insulin Lispro 100 Unit/Ml Insuln.Pen) 0 unit SC TIDAC [facility]; Protocol Last Admin: 05/31/20 10:59 Dose: 1 unit Documented by: Multi-Ingredient Cream (Mineral Oil/Petrolatum,White Jar) 1 applic TOPICAL BID PRN [facility]; Protocol Last Admin: 05/24/20 08:22 Dose: 1 applic Documented by: Multivit/Ca Carb/B Cmplx/FA/Prenat (Folic Acid/Vitamin B Comp W-C 1 Capsule) 1 capsule PO DAILY [facility] Last Admin: 05/31/20 08:54 Dose: 1 capsule Documented by: Multivitamins ([facility]it[facility],Therapeutic Tablet) [facility] Last Admin: 05/31/20 07:31 Dose: 1 tablet Documented by: Nifedipine (Nifedipine 90 Mg Tablet) 90 mg PO DAILY [facility] Last Admin: 05/31/20 08:53 Dose: 90 mg Documented by: Nitroglycerin (Nitroglycerin (Inpatient Use) 0.4 Mg Tab.Subl) 0.4 mg SL Q5M PRN PRN Reason: CARDIAC/CHEST PAIN Last Admin: 05/23/20 20:55 Dose: 0.4 mg Documented by: Pantoprazole Sodium (Pantoprazole Sodium 40 Mg Tablet) 40 mg PO DAILY [facility] Last Admin: 05/31/20 08:54 Dose: 40 mg Documented by: Pyridoxine HCl (Pyridoxine Hcl 100 Mg Tablet) 100 mg PO DAILY [facility] Last Admin: 05/31/20 08:55 Dose: 100 mg Documented by: Simethicone (Simethicone 80 Mg Tablet) 80 mg PO TIDPC [facility] Last Admin: 05/31/20 13:48 Dose: 80 mg Documented by: Sodium Bicarbonate (Sodium Bicarbonate 650 Mg Tablet) 650 mg PO BID [facility] Last Admin: 05/31/20 08:54 Dose: 650 mg Documented by: Sodium Chloride (0.9% Saline Lock 10 Ml Syringe) 10 - 40 ml IV UD PRN PRN Reason: SALINE FLUSH Last Admin: 05/25/20 17:12 Dose: 10 ml Documented by: Venlafaxine HCl (Venlafaxine Xr 150 Mg Capsule) 150 mg PO DAILY [facility] Last Admin: 05/31/20 08:54 Dose: 150 mg Documented by: STROKE Vital Signs/Narrative: Vital Signs Temp Pulse Resp BP Pulse Ox 05/31/20 14:48 82 20 H 05/31/20 13:48 72 05/31/20 13:47 98.1 F 72 16 141/51 H 96 Medical Necessity - Tobacco Use Smoking Status: Former smoker - Quit 2000 Assessment/Plan All Active Problems Chronic 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 (Resolved) Ulcer of left lower extremity with fat layer exposed (Resolved) Chest pain (Acute) (HFpEF) heart failure with preserved ejection fraction (Acute) Atrial fibrillation (Acute) Diastolic CHF, acute (Acute) CHF (congestive heart failure) (Acute) patient is a 60-year-old question gentleman with multiple comorbidities admitted with acute hypoxic respiratory failure secondary to acute on chronic diastolic heart failure. 1. Acute hypoxemic respiratory failure secondary to acute on chronic diastolic heart failure: Previous echo of 2016 shows EF 55% with moderate concentric LVH, LA moderately enlarged suggestive of diastolic heart failure/HFpEF. Repeat echo at this time as mentioned below, EF 60% mainly diastolic heart failure. Mild pulmonary hypertension, RVSP 42 mmHg. Stage II diastolic dysfunction. 05/29: Today is her third day of hemodialysis. Significant improvement of lower extremity swelling. Patient oxygenation improved currently on 1 to 2 L of oxygen. 05/30: Pulse ox 96% on room air. Off oxygen after start of dialysis. 05/31: Patient respiratory status has improved. Plan for tunneled dialysis catheter tomorrow a.m. 2. Acute kidney injury on CKD stage 5: Due to diuretics, heart failure versus progressive diabetic nephropathy: Being followed by mine exploration engineer. 24-hour timed urine collection shows creatinine kinase 13 mL/min suggestive of CKD stage V. Renal sonogram shows no obstructive uropathy or suspicious solid renal lesion. Discussed with the mine exploration engineer and surgeon regarding dialysis catheter access. Getting hemodialysis. Had 2 units of FFP yesterday. INR 1.6. 05/29: Discussed with mine exploration engineer. No plan for dialysis during the weekend. Tunnel dialysis catheter on Monday and then possible discharge in 1 to 2 days 3. severe anemia due to chronic kidney disease patient had 3 units of PRBC transfusion. H&H is stable 7.9/26 4: H&H is stable, 8.4/27. 4. Diabetes mellitus type 2. glucose is controlled. A1c 6.3. 5. Paroxysmal A. fib. Patient converted to sinus rhythm as per EKG of today showed sinus rhythm with PAC similar to economic analyst. Previous EKG May 23 shows A. fib at 133 bpm. Coumadin on hold for placement of tunneled dialysis catheter. Resume after the procedure. Other comorbidities include coronary artery disease, history of DVT depression and morbid obesity: Plan: Dialysis catheter Monday and then dialysis and then discharge Microbiology Past 72 Hours 05/25/20 05:00 Blood Culture (Wb) - Right Forearm Blood Culture - Final No growth in 5 days. 05/25/20 04:54 Blood Culture (Wb) - Anticubital Right Blood Culture - Final No growth in 5 days. Laboratory Results 05/30/20 16:33: POC Glucose 165 H 05/30/20 21:26: POC Glucose 157 H 05/31/20 05:45: WBC 11.6 H, RBC 3.09 L, Hgb 8.4 L, Hct 27.7 L, MCV 89.6, MCH 27.2, MCHC 30.3 L, RDW Std Deviation 49.5 H, RDW Coeff of Kassandra 15.5 H, Plt Count 270, MPV 10.2, Immature Gran % (Auto) 0.500, Neut % (Auto) 70.8 H, Lymph % (Auto) 16.0 L, Mckenzie % (Auto) 9.6, Eos % (Auto) 2.8, Baso % (Auto) 0.3, Absolute Neuts (auto) 8.2 H, Absolute Lymphs (auto) 1.85, Nucleated RBC % 0 05/31/20 05:45: Sodium 137, Potassium 3.5, Chloride 102, Carbon Dioxide 26.0, Anion Gap 9, BUN 52 H, Creatinine 4.52 H, Estim Creat Clear Calc 17.02, Est GFR (MDRD) Af Amer 17 L, Est GFR (MDRD) Non-Af 14 L, BUN/Creatinine Ratio 11.5, Glucose 140 H, Calcium 8.8 05/31/20 06:36: POC Glucose 145 H 05/31/20 10:58: POC Glucose 167 H Clinical Impression(s) from Imaging Studies Chest X-Ray 05/23/20 08:50 IMPRESSION: Cardiomegaly and pulmonary venous congestion. Superimposed mild infiltrate in right lung base is difficult to entirely exclude. Electronically Signed: Nate Bobby MD at 9:23 EDT Tel , Service support , Echocardiogram 05/23/20 11:42 Interpretation Summary Normal LV size. Moderate concentric left ventricular hypertrophy. Left ventricular systolic function is normal. The estimated ejection fraction is 60 %. Stage 2 diastolic dysfunction. Pulmonary artery systolic pressure is 42 mmHg. Mild pulmonary hypertension. Small pericardial effusion. There are no echocardiographic indications of cardiac tamponade. Chest X-Ray 05/25/20 04:35 IMPRESSION: Worsening asymmetric vascular congestion and/or bilateral pneumonia. Stable cardiomegaly. Electronically Signed: Skyler Graham MD at 6:19 EDT , Service support , Renal Ultrasound 05/25/20 05:55 IMPRESSION: No obstructive uropathy or suspicious solid renal lesion Nonobstructing left nephrolithiasis Bladder diverticulum Electronically Signed: Giovanni Huston MD at 10:19 EDT , Service support , Saphenous Venous Mapping 05/25/20 07:59 Interpretation Summary Dimensions of bilateral cephalic and basilic veins bilaterally IV is noted in a potential fistula vein--the cephalic vein of the left wrist. Increased velocity flow bilateral brachial and radial arteries. Chest X-Ray 05/27/20 11:10 IMPRESSION: Ill-defined subpleural groundglass opacities are seen more prominent in the lung bases , may represent atypical pneumonia or viral pneumonia (COVID-19 ?). Inpatient E&M: 20133 Subs Hosp L2
[2020-05-31 16:51] LABS: Bedside Glucose 137 mg/dL (70-110)
[2020-05-31] MEDS: Atorvastatin Calcium 40 MG Tablet PO (21:13)
[2020-05-31 21:36] LABS: Bedside Glucose 161 mg/dL (70-110)
[2020-06-01] VITALS (18 sets, daily range): BP systolic 140–165; BP diastolic 63–83; PULSE 72–96; RESP 16–20; TEMP 36.5–37.1; O2SAT 94–98; BMI 45.9
[2020-06-01 05:51] LABS: Absolute Lymphocyte Count 1.98 X10^3/uL (0.83-4.51); Absolute Neutrophil Count 7.6 X10^3/uL (2.0-7.7); Basophil# 0.04 X10^3/uL; Basophil% 0.4 % (0-1); Eosinophil# 0.36 X10^3/uL; Eosinophils% 3.3 % (0-5); Hematocrit 27.5 % (40-54); Hemoglobin 8.4 g/dL (13.0-16.5); Lymphocyte # 1.98 X10^3/ul (4.0); Mean Corp Hgb Conc 30.5 g/dL (32-36); Mean Corpuscular Hgb 27.9 pg (27.0-32.0); Mean Corpuscular Volume 91.4 fL (80-94); Mean Platelet Vol. 10.1 fl (6.2-12.0); Monocyte# 1.01 X10^3/uL; Monocyte% 9.2 % (0-10); NRBC Flagged by Analyzer 0 % (0-5); Neutrophil # 7.55 X10^3/uL (2.7-7.7); Neutrophil % 68.6 % (47-70); Platelet Count 284 K/mm3 (150-450); RBC Distribution Width CV 15.4 % (11.6-14.6); RBC Distribution Width SD 49.6 fl (35.1-43.9); Red Blood Count 3.01 M/mm3 (4.6-6.2)
[2020-06-01 06:00] LABS: International Normalized Ratio 1.3; Prothrombin Time (Protime)PT. 15.8 SECONDS (11.7-14.9)
[2020-06-01] MEDS: Dicyclomine 10 MG Capsule 20 MG PO ×2 (06:03→15:23)
[2020-06-01] MEDS: hydrALAZINE 25 MG Tablet PO ×2 (06:04→15:23)
[2020-06-01 06:23] LABS: Anion Gap 10 (5-15); BUN 56 mg/dL (7-18); BUN/Creat Ratio 11.5 RATIO (10-20); Calcium,Total 8.6 mg/dL (8.5-10.1); Chloride 105 mmol/L (98-107); Creatinine, Serum 4.86 mg/dL (0.70-1.30); EST Glomerular Filtration Rate 13 mL/min (>60); Est Glom Filt Rate - Afr Amer 16 mL/min (>60); Estimated Creatinine Clearance 15.83 ml/min; Glucose 131 mg/dL (74-106); Potassium 3.7 mmol/L (3.5-5.1); Sodium Level 141 mmol/L (136-145)
[2020-06-01 06:56] LABS: Bedside Glucose 127 mg/dL (70-110)
[2020-06-01] MEDS: Ipratropium/Albuterol Sulfate 3 ML AMPUL.NEB INHALATION ×2 (06:57→13:05)
--- NOTE | 2020-06-01 08:59 | PCM.PN.REN ---
Patient Problems: Active and Suspected Problems Malnutrition (Suspected) Chest pain (Acute) (HFpEF) heart failure with preserved ejection fraction (Acute) Atrial fibrillation (Acute) Diastolic CHF, acute (Acute) CHF (congestive heart failure) (Acute) Subjective: breathing better, swelling stable. waiting on tunneled catheter placement today. Pt with chronic schedule TTS. Waiting on insurance approval. - Physical Exam Vitals/I&O's: Vital Signs Temp Pulse Resp BP Pulse Ox 98.3 F 85 16 143/72 H 96 06/01/20 06:00 06/01/20 07:57 06/01/20 06:00 06/01/20 06:04 06/01/20 06:00 Oxygen Flow Rate (L/min) 1 Oxygen Delivery Method Room Air Weight: 137.5 kg Body Mass Index (BMI) 51.2 Intake and Output for Last 24 Hours 05/30/20 05/31/20 06/01/20 23:59 23:59 23:59 Intake Total 740 / 800 990 / 990 30 / 30 Output Total 2550 / 2550 600 / 600 Balance 740 / 575 -1560 / -1560 -570 / -570 General: Alert, Oriented x3, Cooperative Neck: Supple Lungs: Clear to auscultation Cardiovascular: Regular rate Abdomen: Bowel Sounds Present, Soft, Obese Extremities: Edema - mild BLE Psych/Mental Status: Normal Affect, Alert and oriented to time, place, person, mood and affect Microbiology Past 72 Hours 05/25/20 05:00 Blood Culture (Wb) - Right Forearm Blood Culture - Final No growth in 5 days. 05/25/20 04:54 Blood Culture (Wb) - Anticubital Right Blood Culture - Final No growth in 5 days. Laboratory Results 05/31/20 10:58: POC Glucose 167 H 05/31/20 16:30: POC Glucose 137 H 05/31/20 21:11: POC Glucose 161 H 06/01/20 05:24: WBC 11.0, RBC 3.01 L, Hgb 8.4 L, Hct 27.5 L, MCV 91.4, MCH 27.9, MCHC 30.5 L, RDW Std Deviation 49.6 H, RDW Coeff of Kassandra 15.4 H, Plt Count 284, MPV 10.1, Immature Gran % (Auto) 0.500, Neut % (Auto) 68.6, Lymph % (Auto) 18.0 L, [place] % (Auto) 9.2, Eos % (Auto) 3.3, Baso % (Auto) 0.4, Absolute Neuts (auto) 7.6, Absolute Lymphs (auto) 1.98, Nucleated RBC % 0 06/01/20 05:24: PT 15.8 H, INR 1.3 06/01/20 05:24: Sodium 141, Potassium 3.7, Chloride 105, Carbon Dioxide 26.0, Anion Gap 10, BUN 56 H, Creatinine 4.86 H, Estim Creat Clear Calc 15.83, Est GFR (MDRD) Af Amer 16 L, Est GFR (MDRD) Non-Af 13 L, BUN/Creatinine Ratio 11.5, Glucose 131 H, Calcium 8.6 06/01/20 06:45: POC Glucose 127 H Current Medications Acetaminophen (Acetaminophen 325 Mg Tablet) 650 mg PO Q6H PRN PRN PRN Reason: Pain Score 1-10/Temp > 100.7 F Last Admin: 05/25/20 16:40 Dose: 650 mg Documented by: Al Hydroxide/Mg Hydroxide (Mag Hydrox/Al Hydrox/Simeth 30 Ml Udc) 30 ml PO Q4H PRN PRN PRN Reason: DYSPEPSIA Last Admin: 05/23/20 21:00 Dose: 30 ml Documented by: Albuterol/Ipratropium (Ipratropium/Albuterol Sulfate 3 Ml Ampul.Neb) 3 ml INHALATION Q6HWA.RT [facility] Last Admin: 06/01/20 06:57 Dose: 3 ml Documented by: Ascorbic Acid (Ascorbic Acid 500 Mg Tablet) 1,000 mg PO DAILY [facility] Last Admin: 05/31/20 08:53 Dose: 1,000 mg Documented by: Atorvastatin Calcium (Atorvastatin Calcium 40 Mg Tablet) 40 mg PO QHS [facility] Last Admin: 05/31/20 21:13 Dose: 40 mg Documented by: Benzonatate (Benzonatate 100 Mg Capsule) 100 mg PO BID PRN PRN PRN Reason: COUGH Last Admin: 05/31/20 00:22 Dose: 100 mg Documented by: Buspirone HCl (Buspirone 5 Mg Tablet) 10 mg PO DAILY [facility] Last Admin: 05/31/20 08:53 Dose: 10 mg Documented by: Calcitriol (Calcitriol 0.25 Mcg Capsule) 0.25 mcg PO DAILY [facility] Last Admin: 05/31/20 08:53 Dose: 0.25 mcg Documented by: Carvedilol (Carvedilol 12.5 Mg Tablet) 12.5 mg PO BID [facility] Last Admin: 05/31/20 21:13 Dose: 12.5 mg Documented by: Cholecalciferol (Cholecalciferol (Vit D3) 25 Mcg Tablet (1,000 Units)) 25 mcg PO DAILY [facility] Last Admin: 05/31/20 08:53 Dose: 25 mcg Documented by: Clopidogrel Bisulfate (Clopidogrel Bisulfate 75 Mg Tablet) 75 mg PO DAILY [facility] Last Admin: 05/31/20 08:54 Dose: 75 mg Documented by: Dextrose (Dextrose 50%-Water 25 Gm/50 Ml Disp.Syrin) 0 gm IV X1 PRN; Protocol PRN Reason: Hypoglycemia Dicyclomine HCl (Dicyclomine 10 Mg Capsule) 20 mg PO TIDAC [facility] Last Admin: 06/01/20 06:03 Dose: 20 mg Documented by: Furosemide (Furosemide 40 Mg Tablet) 40 mg PO BID@1000,1800 [facility] Last Admin: 05/31/20 17:03 Dose: 40 mg Documented by: Gabapentin (Gabapentin 100 Mg Capsule) 100 mg PO BID [facility] Last Admin: 05/31/20 21:13 Dose: 100 mg Documented by: Glucagon (Glucagon 1 Mg/Ml Syringe) 1 mg IM .X1 PRN PRN Reason: Hypoglycemia Hydralazine HCl (Hydralazine 25 Mg Tablet) 25 mg PO TID [facility] Last Admin: 06/01/20 06:04 Dose: 25 mg Documented by: Insulin Glargine (Insulin Glargine 100 Units/Ml Pen) 12 units SC QHS [facility] Last Admin: 05/31/20 21:12 Dose: 12 u Documented by: Insulin Human Lispro (Insulin Lispro 100 Unit/Ml Insuln.Pen) 0 unit SC TIDAC [facility]; Protocol Last Admin: 06/01/20 07:38 Dose: Not Given Documented by: Multi-Ingredient Cream (Mineral Oil/Petrolatum,White Jar) 1 applic TOPICAL BID PRN [facility]; Protocol Last Admin: 05/24/20 08:22 Dose: 1 applic Documented by: Multivit/Ca Carb/B Cmplx/FA/Prenat (Folic Acid/Vitamin B Comp W-C 1 Capsule) 1 capsule PO DAILY [facility] Last Admin: 05/31/20 08:54 Dose: 1 capsule Documented by: Multivitamins (Mult[facility]itamins,Therapeutic Tablet) [facility] Last Admin: 05/31/20 07:31 Dose: 1 tablet Documented by: Nifedipine (Nifedipine 90 Mg Tablet) 90 mg PO DAILY [facility] Last Admin: 05/31/20 08:53 Dose: 90 mg Documented by: Nitroglycerin (Nitroglycerin (Inpatient Use) 0.4 Mg Tab.Subl) 0.4 mg SL Q5M PRN PRN Reason: CARDIAC/CHEST PAIN Last Admin: 05/23/20 20:55 Dose: 0.4 mg Documented by: Pantoprazole Sodium (Pantoprazole Sodium 40 Mg Tablet) 40 mg PO DAILY [facility] Last Admin: 05/31/20 08:54 Dose: 40 mg Documented by: Pyridoxine HCl (Pyridoxine Hcl 100 Mg Tablet) 100 mg PO DAILY [facility] Last Admin: 05/31/20 08:55 Dose: 100 mg Documented by: Simethicone (Simethicone 80 Mg Tablet) 80 mg PO TIDPC [facility] Last Admin: 05/31/20 17:03 Dose: 80 mg Documented by: Sodium Bicarbonate (Sodium Bicarbonate 650 Mg Tablet) 650 mg PO BID [facility] Last Admin: 05/31/20 21:13 Dose: 650 mg Documented by: Sodium Chloride (0.9% Saline Lock 10 Ml Syringe) 10 - 40 ml IV UD PRN PRN Reason: SALINE FLUSH Last Admin: 05/25/20 17:12 Dose: 10 ml Documented by: Venlafaxine HCl (Venlafaxine Xr 150 Mg Capsule) 150 mg PO DAILY [facility] Last Admin: 05/31/20 08:54 Dose: 150 mg Documented by: Medical Necessity - Tobacco Use Smoking Status: Former smoker - Quit 2000 Assessment/Plan All Active Problems Chronic 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 (Resolved) Ulcer of left lower extremity with fat layer exposed (Resolved) Chest pain (Acute) (HFpEF) heart failure with preserved ejection fraction (Acute) Atrial fibrillation (Acute) Diastolic CHF, acute (Acute) CHF (congestive heart failure) (Acute) 1. ESRD on HD after tunneled catheter placement. Chronic dialysis schedule TTS. Await insurance approval. 2. Diastolic HF fluid removal on dialysis as tolerated. 3. 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 Hx pafib in SR 5. Hx DVT LLE 6. Iron def anemia iv iron load on dialysis. 7. Morbid obesity 8. PTH 376. Started calcitriol.
--- NOTE | 2020-06-01 09:25 | CASEMGMT ---
Per Shaila at [facility], pt is cleared medically and financially at this time for OP dialysis. Dr. Acharya states pt can discharge today after tunnel cath and go to OP dialysis for 1st treatment tomorrow at 1100. Dr. Ken to be updated on all. CM to follow. Ben LUNDY CM
[2020-06-01] MEDS: 0.9% Saline Lock 10 ML Syringe IV ×2 (12:29→15:24)
[2020-06-01 12:41] LABS: Bedside Glucose 127 mg/dL (70-110)
[2020-06-01] MEDS: Lidocaine 1% /Epi 1:100 (20ml) 20 ML Vial (14:12)
[2020-06-01] MEDS: Heparin 10,000 UNITS/10 ML Vial 10000 UNITS (14:25)
--- NOTE | 2020-06-01 14:45 | RAD_ITS ---
STUDY: X-RAY CHEST REASON FOR EXAM: Male, 60 years old. Catheter placement TECHNIQUE: Single AP portable view of the chest. COMPARISON: 05/25/2020 FINDINGS: EKG leads overlie the chest. Right dialysis catheter is in place, tip is in the mid SVC, no pneumothorax or mediastinal shift Lungs are expanded, there is significant overall improvement compared to the previous study with near complete resolution of the previously described airspace opacifications in both lung harrison. Continued follow-up recommended to ensure complete resolution. No demonstrated effusions. Stable cardiomegaly Normal mediastinum and sachi. Normal visualized pulmonary arteries. Normal visualized aortic arch and descending thoracic aorta. Normal visualized thoracic spine. Normal visualized ribs, clavicles, and shoulders. There is no demonstrated abnormality of the visualized soft tissue structures of the upper abdomen. RAD/CXR for Line Placement IMPRESSION: Right-sided dialysis catheter is in place, tip is in the mid SVC, no complications Near complete resolution of previously described airspace opacifications in both lung harrison. Continued follow-up recommended to show complete resolution Electronically Signed: Giovanni Huston MD at 16:49 EDT , Service support ,
--- NOTE | 2020-06-01 15:01 | PCM.OPRPT ---
Problem List (1) [id number] kidney injury Status: Chronic Report of Operation Date of Procedure: 06/01/20 Pre-Operative Diagnosis: Acute on chronic kidney disease Post-Operative Diagnosis: Same Surgery/Procedure Performed:: Ultrasound and fluoroscopy guided right chest temporary dialysis catheter placement utilizing right IJ Description of Procedure: Patient was brought back to the operating room on the right neck and chest were prepped in usual sterile fashion. Ultrasound was used to localize the right IJ. Next local anesthetic was injected over the right IJ as well as over the right chest. The area between the 2 incisions was also injected with local anesthetic. Next a scalpel was used to make a small incision in the right chest and a small incision over the right IJ. Needle was used under ultrasound guidance to access the right IJ and a guidewire was placed under fluoroscopy guidance. The needle was removed from the guidewire and serial dilators and then a peel-away sheath were placed over the guidewire and the guidewire was removed. Fluoroscopy was used to ensure good positioning. Next the catheter was tunneled from the chest incision to the neck incision placed in the cuff under the skin. Next the catheter was placed through the peel-away sheath and the peel-away sheath was removed. Fluoroscopy was used to ensure that the catheter was in good position in both of the neck and in the chest. Next the catheters were each drawn back and flushed with saline and both capri blood and flushed easily. Each catheter was flushed with heparinized saline and clamped and capped. The catheter was sutured to the skin using 3-0 nylon suture. The upper neck incision was closed with interrupted 3-0 Vicryl suture. Steri-Strips and bandages were applied and the patient was taken to PACU in stable condition chest x-ray will be obtained. Grafts/Implants Used: Palindrome curved dialysis temporary catheter - Admit VTE Documentation VTE Mechan Device Prophylaxis: SCD's
--- NOTE | 2020-06-01 15:12 | PCM.DC ---
- Discharge Diagnoses Current Active Problems: Current Active and Chronic Problems Equinus contracture of left ankle (Chronic) Edema of left lower leg due to peripheral venous insufficiency (Chronic) Other specified peripheral vascular diseases (Chronic) Type 2 diabetes mellitus with diabetic polyneuropathy (Chronic) Hammer toe of left foot (Chronic) Delayed wound healing (Chronic) Colonization status (Chronic) Chest pain (Acute) Anemia (Chronic) (HFpEF) heart failure with preserved ejection fraction (Acute) Acute exacerbation of CHF (congestive heart failure) (Chronic) [id number]-rdmqzyk kidney injury (Chronic) Atrial fibrillation (Acute) Diastolic CHF, acute (Acute) Depression (Chronic) Essential hypertension (Chronic) Morbid obesity (Chronic) Type 2 diabetes mellitus (Chronic) History of DVT of lower extremity (Chronic) CHF (congestive heart failure) (Acute) You will use the following diet at home:: Renal (restricted protein/sodium) Your food should be the consistency of: Regular Your liquids should be the consistency of: Regular/Thin Call your doctor if you observe: Fever of 101 or Higher, Shortness of breath Allergies/Adverse Reactions: Allergies cephalexin Allergy (Verified 05/23/20 08:40) Hives Penicillins Allergy (Verified 05/23/20 08:40) Hives Medications to take at Discharge Ascorbic Acid [Vitamin C] 1,000 mg PO DAILY 12/02/16 Buspirone HCl 10 mg PO BID 12/02/16 Carvedilol [Coreg (Beta Federico)] 12.5 mg PO BID 12/02/16 Cholecalciferol (VIT D3) [Vitamin D3] 1,000 unit PO DAILY 12/02/16 Dicyclomine HCl 20 mg PO TID 12/02/16 Gabapentin [Neurontin] 600 mg PO BID 12/02/16 Multivitamin [Multiple Vitamins] 1 each PO DAILY 12/02/16 Nifedipine [Nifedipine ER] 90 mg PO QHS 12/02/16 Psyllium Husk (with Sugar) [Metamucil Packet] 3.4 gm PO PRN PRN 12/02/16 Venlafaxine XR [Effexor Xr] 150 mg PO DAILY 12/02/16 Atorvastatin Calcium 40 mg PO DAILY 05/23/20 Clopidogrel Bisulfate [Clopidogrel] 75 mg PO DAILY 05/23/20 Insulin NPH Human Isophane [Humulin N Kwikpen] 12 units SQ QHS 05/23/20 Pyridoxine HCl (Vitamin B6) [Vitamin B-6] 100 mg PO DAILY 05/23/20 Sodium Bicarbonate 650 mg PO BID 05/23/20 hydrALAZINE [Apresoline] 25 mg PO TID 05/23/20 Folic Acid/Vitamin B Comp W-C [Nephrocaps, Renaphro] 1 capsule PO DAILY #30 capsule 06/01/20 Furosemide [Lasix] 40 mg PO BID@1000,1800 #60 tablet 06/01/20 Pantoprazole Sodium [Protonix] 40 mg PO DAILY #30 tablet 06/01/20 SimETHICONE [Mylicon] 80 mg PO TIDPC tablet 06/01/20 Warfarin [Coumadin] 12.5 mg PO DINNER #0 06/01/20 The following prescriptions were given: Furosemide [Lasix] 40 mg PO BID@1000,1800 #60 tablet Transmission Status: Pending to [facility] Folic Acid/Vitamin B Comp W-C [Nephrocaps, Renaphro] 1 capsule PO DAILY #30 capsule Transmission Status: Pending to [facility] Pantoprazole Sodium [Protonix] 40 mg PO DAILY #30 tablet Transmission Status: Pending to [facility] Primary Care Physician: Yola Ng MD [Primary Care Provider] - Within 2 Weeks Test Results: Test results from this visit will be discussed in further detail at your follow-up appointment, if applicable. [facility] With: [facility]: 06/02/2020
--- NOTE | 2020-06-01 15:14 | PCM.DC.SUM ---
Discharge Date and Diagnosis - Problem List Patient Problems: Active and Suspected Problems Malnutrition (Suspected) Chest pain (Acute) (HFpEF) heart failure with preserved ejection fraction (Acute) Atrial fibrillation (Acute) Diastolic CHF, acute (Acute) CHF (congestive heart failure) (Acute) Date of Admission: 05/26/20 Date of Discharge: 06/01/20 - Primary Discharge Diagnosis Acute Problems: Active Problems 1. Acute heart failure with preserved ejection fraction exacerbation EF 60% from to echocardiogram Complicated by CKD V Patient not a candidate for SRINIVASA inhibitor nor angiotensin receptor federico given chronic kidney disease stage V. Continue hydralazine 2. acute hypoxic respiratory failure improved now on RA2/2 to above plus likely ARRON pulm consult 3. Chest pain Atypical Patient has had a GI work-up which patient states was unremarkable. Will request records from [facility]. Since his symptoms are atypical, will change his ranitidine over to pantoprazole and start him on simethicone. JONNA score 3, Carolina score 94 Plan for a nuclear chemical stress test on 05/25/2020. Cycle troponins negative Reviewed a records from [facility], stress negative on 03/22/2018' continue PPI 4. Anemia Concerned that this may be symptomatic anemia as well causing some symptoms in regards to dyspnea and chest pain s/p 3 units PRBCs Goal hemoglobin is 8 or more given the patient's underlying coronary artery disease Will transfuse another unit 5. Chronic kidney disease stage V Worse than it was a year ago. I suspect this is just been a chronic progression rather than acute derangement We will adjust gabapentin to a safer renal dose of 100 twice daily Continue with sodium bicarbonate reviewed records from [facility]. Creatinine was 4.66 on 04/08/2020 Dialysis catheter placed on 06/01 Dialysis to start on 06/02 Follow up with vascular surgery as outpt for fistula placement 6. Diabetes mellitus type 2 Fair control Hold glipizide given the worsening kidney disorder Sliding scale insulin A1c 6.3 7. Coronary artery disease Continue with clopidogrel, carvedilol 8. Atrial fibrillation Persistent Rate controlled Continue with carvedilol and warfarin. Resume warfarin 06/02 Suspected Problems: Suspected Problems Malnutrition (Suspected) - Secondary Discharge Diagnosis Chronic Problems: Chronic Problems Equinus contracture of left ankle (Chronic) Edema of left lower leg due to peripheral venous insufficiency (Chronic) Other specified peripheral vascular diseases (Chronic) Type 2 diabetes mellitus with diabetic polyneuropathy (Chronic) Hammer toe of left foot (Chronic) Delayed wound healing (Chronic) Colonization status (Chronic) Anemia (Chronic) Acute exacerbation of CHF (congestive heart failure) (Chronic) Cjail-zh-ohpnjbb kidney injury (Chronic) Depression (Chronic) Essential hypertension (Chronic) Morbid obesity (Chronic) Type 2 diabetes mellitus (Chronic) History of DVT of lower extremity (Chronic) Hospital Course and Treatment Imaging Results: 06/01/20 13:56 O.R. Fluoro for C-Arm [RAD] Urgent 06/01/20 14:45 CXR for Line Placement [RAD] Urgent Clinical Impression(s) from Imaging Studies Chest X-Ray 05/23/20 08:50 IMPRESSION: Cardiomegaly and pulmonary venous congestion. Superimposed mild infiltrate in right lung base is difficult to entirely exclude. Electronically Signed: Nate Bobby MD at 9:23 EDT Tel , Service support , Echocardiogram 05/23/20 11:42 Interpretation Summary Normal LV size. Moderate concentric left ventricular hypertrophy. Left ventricular systolic function is normal. The estimated ejection fraction is 60 %. Stage 2 diastolic dysfunction. Pulmonary artery systolic pressure is 42 mmHg. Mild pulmonary hypertension. Small pericardial effusion. There are no echocardiographic indications of cardiac tamponade. Ordering Physician: Immanuel Ken Referring Physician: Yola Ng Performed By: Brisa Franklin, JOICS, RVT Chest X-Ray 05/25/20 04:35 IMPRESSION: Worsening asymmetric vascular congestion and/or bilateral pneumonia. Stable cardiomegaly. Electronically Signed: Skyler Graham MD at 6:19 EDT , Service support , Renal Ultrasound 05/25/20 05:55 IMPRESSION: No obstructive uropathy or suspicious solid renal lesion Nonobstructing left nephrolithiasis Bladder diverticulum Electronically Signed: Giovanni Huston MD at 10:19 EDT , Service support , Saphenous Venous Mapping 05/25/20 07:59 Interpretation Summary Dimensions of bilateral cephalic and basilic veins bilaterally IV is noted in a potential fistula vein--the cephalic vein of the left wrist. Increased velocity flow bilateral brachial and radial arteries. Ordering Physician: Lillian Acharya Referring Physician: Yola Ng M.D. Performed By: Alyssa Mcgrath Ingrid ? Chest X-Ray 05/27/20 11:10 IMPRESSION: Ill-defined subpleural groundglass opacities are seen more prominent in the lung bases , may represent atypical pneumonia or viral pneumonia (COVID-19 ?). Electronically Signed: Xavier Koenig MD at 12:17 EDT Tel , Service support , EDISON Louise Brown, AKSHAT Acharya, nephrology Operations: - - 1. Acute heart failure with preserved ejection fraction exacerbation EF 55% from to echocardiogram from 09/10/2012 Changes furosemide over to 40 mg twice daily IV from oral. Patient not a candidate for SRINIVASA inhibitor nor angiotensin receptor federico given chronic kidney disease stage IV-V. Contin Procedures: 2-D Echocardiogram Summary of Care Provided: The patient is a 60 year old M presents with chest pain. Previous to this hospitalization patient had undergone extensive GI work-up which come back unremarkable. Patient also complained of increasing lower extremity edema and presented to the emergency room with pulse ox of 89% on room air. Patient was also transfused given hemoglobin as it was concerned that the patient had symptomatic anemia patient was transfused total of 3 units packed red blood cells. Patient's creatinine has steadily gotten worse over the past year and was cautiously started on furosemide. Patient was seen in consultation by pulmonary and nephrology. Patient did have a temporary IJ catheter placement on and he was started on dialysis. Patient had his dialysis catheter switched over to a tunneled catheter today. Patient will continue with outpatient dialysis on the . Patient steadily improved and is currently on room air. Patient will be discharged today in stable condition. [] Patient Problems: Active and Suspected Problems Malnutrition (Suspected) Chest pain (Acute) (HFpEF) heart failure with preserved ejection fraction (Acute) Atrial fibrillation (Acute) Diastolic CHF, acute (Acute) CHF (congestive heart failure) (Acute) - Physical Exam Vitals/I&O's: Vital Signs Temp Pulse Resp BP Pulse Ox 36.7 C 94 18 157/71 H 94 06/01/20 14:50 06/01/20 14:50 06/01/20 14:50 06/01/20 14:50 06/01/20 14:50 Oxygen Flow Rate (L/min) 1 Oxygen Delivery Method Room Air Weight: 137.5 kg Body Mass Index (BMI) 45.9 Intake and Output for Last 24 Hours 05/30/20 05/31/20 06/01/20 23:59 23:59 23:59 Intake Total 740 / 800 990 / 990 30 / 30 Output Total 2550 / 2550 600 / 600 Balance 740 / 575 -1560 / -1560 -570 / -570 General: Alert, No apparent distress HEENT: Atraumatic, Normocephalic Oral: Moist Mucosa, No Gingival or Mucosal Lesions/ Ulcerations Neck: No Nodes, Thyroid Normal Size and Texture Lungs: Clear to auscultation, Normal air movement, No rhonchi, No wheeze Cardiovascular: Regular rate, Regular Rhythm, Normal S1, Normal S2 Abdomen: Bowel Sounds Present, Soft, Non Tender, Non-Distended, No Hepato-splenomegaly Extremities: No edema, No Calf Tenderness Psych/Mental Status: Normal Affect, Appropriate Microbiology Past 72 Hours 05/25/20 05:00 Blood Culture (Wb) - Right Forearm Blood Culture - Final No growth in 5 days. 05/25/20 04:54 Blood Culture (Wb) - Anticubital Right Blood Culture - Final No growth in 5 days. Laboratory Results 05/31/20 16:30: POC Glucose 137 H 05/31/20 21:11: POC Glucose 161 H 06/01/20 05:24: WBC 11.0, RBC 3.01 L, Hgb 8.4 L, Hct 27.5 L, MCV 91.4, MCH 27.9, MCHC 30.5 L, RDW Std Deviation 49.6 H, RDW Coeff of Kassandra 15.4 H, Plt Count 284, MPV 10.1, Immature Gran % (Auto) 0.500, Neut % (Auto) 68.6, Lymph % (Auto) 18.0 L, Baker % (Auto) 9.2, Eos % (Auto) 3.3, Baso % (Auto) 0.4, Absolute Neuts (auto) 7.6, Absolute Lymphs (auto) 1.98, Nucleated RBC % 0 06/01/20 05:24: PT 15.8 H, INR 1.3 06/01/20 05:24: Sodium 141, Potassium 3.7, Chloride 105, Carbon Dioxide 26.0, Anion Gap 10, BUN 56 H, Creatinine 4.86 H, Estim Creat Clear Calc 15.83, Est GFR (MDRD) Af Amer 16 L, Est GFR (MDRD) Non-Af 13 L, BUN/Creatinine Ratio 11.5, Glucose 131 H, Calcium 8.6 06/01/20 06:45: POC Glucose 127 H 06/01/20 12:26: POC Glucose 127 H Current Medications Acetaminophen (Acetaminophen 325 Mg Tablet) 650 mg PO Q6H PRN PRN PRN Reason: Pain Score 1-10/Temp > 100.7 F Last Admin: 05/25/20 16:40 Dose: 650 mg Documented by: Al Hydroxide/Mg Hydroxide (Mag Hydrox/Al Hydrox/Simeth 30 Ml Udc) 30 ml PO Q4H PRN PRN PRN Reason: DYSPEPSIA Last Admin: 05/23/20 21:00 Dose: 30 ml Documented by: Albuterol/Ipratropium (Ipratropium/Albuterol Sulfate 3 Ml Ampul.Neb) 3 ml INHALATION Q6HWA.RT [facility] Last Admin: 06/01/20 13:05 Dose: 3 ml Documented by: Ascorbic Acid (Ascorbic Acid 500 Mg Tablet) 1,000 mg PO DAILY [facility] Last Admin: 05/31/20 08:53 Dose: 1,000 mg Documented by: Atorvastatin Calcium (Atorvastatin Calcium 40 Mg Tablet) 40 mg PO QHS [facility] Last Admin: 05/31/20 21:13 Dose: 40 mg Documented by: Benzonatate (Benzonatate 100 Mg Capsule) 100 mg PO BID PRN PRN PRN Reason: COUGH Last Admin: 05/31/20 00:22 Dose: 100 mg Documented by: Buspirone HCl (Buspirone 5 Mg Tablet) 10 mg PO DAILY [facility] Last Admin: 05/31/20 08:53 Dose: 10 mg Documented by: Calcitriol (Calcitriol 0.25 Mcg Capsule) 0.25 mcg PO DAILY [facility] Last Admin: 05/31/20 08:53 Dose: 0.25 mcg Documented by: Carvedilol (Carvedilol 12.5 Mg Tablet) 12.5 mg PO BID [facility] Last Admin: 06/01/20 12:28 Dose: Not Given Documented by: Cholecalciferol (Cholecalciferol (Vit D3) 25 Mcg Tablet (1,000 Units)) 25 mcg PO DAILY [facility] Last Admin: 05/31/20 08:53 Dose: 25 mcg Documented by: Clopidogrel Bisulfate (Clopidogrel Bisulfate 75 Mg Tablet) 75 mg PO DAILY [facility] Last Admin: 05/31/20 08:54 Dose: 75 mg Documented by: Dextrose (Dextrose 50%-Water 25 Gm/50 Ml Disp.Syrin) 0 gm IV X1 PRN; Protocol PRN Reason: Hypoglycemia Dicyclomine HCl (Dicyclomine 10 Mg Capsule) 20 mg PO TIDAC [facility] Last Admin: 06/01/20 11:20 Dose: Not Given Documented by: Furosemide (Furosemide 40 Mg Tablet) 40 mg PO BID@1000,1800 [facility] Last Admin: 05/31/20 17:03 Dose: 40 mg Documented by: Gabapentin (Gabapentin 100 Mg Capsule) 100 mg PO BID [facility] Last Admin: 05/31/20 21:13 Dose: 100 mg Documented by: Glucagon (Glucagon 1 Mg/Ml Syringe) 1 mg IM .X1 PRN PRN Reason: Hypoglycemia Hydralazine HCl (Hydralazine 25 Mg Tablet) 25 mg PO TID [facility] Last Admin: 06/01/20 06:04 Dose: 25 mg Documented by: Insulin Glargine (Insulin Glargine 100 Units/Ml Pen) 12 units SC QHS [facility] Last Admin: 05/31/20 21:12 Dose: 12 u Documented by: Insulin Human Lispro (Insulin Lispro 100 Unit/Ml Insuln.Pen) 0 unit SC TIDAC [facility]; Protocol Last Admin: 06/01/20 12:28 Dose: Not Given Documented by: Multi-Ingredient Cream (Mineral Oil/Petrolatum,White Jar) 1 applic TOPICAL BID PRN [facility]; Protocol Last Admin: 05/24/20 08:22 Dose: 1 applic Documented by: Multivit/Ca Carb/B Cmplx/FA/Prenat (Folic Acid/Vitamin B Comp W-C 1 Capsule) 1 capsule PO DAILY [facility] Last Admin: 05/31/20 08:54 Dose: 1 capsule Documented by: Multivitamins (Multivitamins,Therapeutic Tablet) 1 tablet PO DAILYCM [facility] Last Admin: 06/01/20 11:14 Dose: Not Given Documented by: Nifedipine (Nifedipine 90 Mg Tablet) 90 mg PO DAILY [facility] Last Admin: 05/31/20 08:53 Dose: 90 mg Documented by: Nitroglycerin (Nitroglycerin (Inpatient Use) 0.4 Mg Tab.Subl) 0.4 mg SL Q5M PRN PRN Reason: CARDIAC/CHEST PAIN Last Admin: 05/23/20 20:55 Dose: 0.4 mg Documented by: Pantoprazole Sodium (Pantoprazole Sodium 40 Mg Tablet) 40 mg PO DAILY [facility] Last Admin: 05/31/20 08:54 Dose: 40 mg Documented by: Pyridoxine HCl (Pyridoxine Hcl 100 Mg Tablet) 100 mg PO DAILY [facility] Last Admin: 05/31/20 08:55 Dose: 100 mg Documented by: Simethicone (Simethicone 80 Mg Tablet) 80 mg PO TIDPC [facility] Last Admin: 06/01/20 11:14 Dose: Not Given Documented by: Sodium Bicarbonate (Sodium Bicarbonate 650 Mg Tablet) 650 mg PO BID [facility] Last Admin: 06/01/20 12:28 Dose: Not Given Documented by: Sodium Chloride (0.9% Saline Lock 10 Ml Syringe) 10 - 40 ml IV UD PRN PRN Reason: SALINE FLUSH Last Admin: 06/01/20 12:29 Dose: 10 ml Documented by: Venlafaxine HCl (Venlafaxine Xr 150 Mg Capsule) 150 mg PO DAILY [facility] Last Admin: 05/31/20 08:54 Dose: 150 mg Documented by: Discharge Diet: Renal Diet Discharge Activity: Return to Normal Activity Call your doctor if you observe: Fever of 101 or Higher, Shortness of breath Home Medications: Medications to take at Discharge Ascorbic Acid [Vitamin C] 1,000 mg PO DAILY 12/02/16 Buspirone HCl 10 mg PO BID 12/02/16 Carvedilol [Coreg (Beta Federico)] 12.5 mg PO BID 12/02/16 Cholecalciferol (VIT D3) [Vitamin D3] 1,000 unit PO DAILY 12/02/16 Dicyclomine HCl 20 mg PO TID 12/02/16 Gabapentin [Neurontin] 600 mg PO BID 12/02/16 Multivitamin [Multiple Vitamins] 1 each PO DAILY 12/02/16 Nifedipine [Nifedipine ER] 90 mg PO QHS 12/02/16 Psyllium Husk (with Sugar) [Metamucil Packet] 3.4 gm PO PRN PRN 12/02/16 Venlafaxine XR [Effexor Xr] 150 mg PO DAILY 12/02/16 Atorvastatin Calcium 40 mg PO DAILY 05/23/20 Clopidogrel Bisulfate [Clopidogrel] 75 mg PO DAILY 05/23/20 Insulin NPH Human Isophane [Humulin N Kwikpen] 12 units SQ QHS 05/23/20 Pyridoxine HCl (Vitamin B6) [Vitamin B-6] 100 mg PO DAILY 05/23/20 Sodium Bicarbonate 650 mg PO BID 05/23/20 hydrALAZINE [Apresoline] 25 mg PO TID 05/23/20 Folic Acid/Vitamin B Comp W-C [Nephrocaps, Renaphro] 1 capsule PO DAILY #30 capsule 06/01/20 Furosemide [Lasix] 40 mg PO BID@1000,1800 #60 tablet 06/01/20 Pantoprazole Sodium [Protonix] 40 mg PO DAILY #30 tablet 06/01/20 SimETHICONE [Mylicon] 80 mg PO TIDPC tablet 06/01/20 Warfarin [Coumadin] 12.5 mg PO DINNER #0 06/01/20 Following Prescriptions Were Given to Patient: Furosemide [Lasix] 40 mg PO BID@1000,1800 #60 tablet Transmission Status: Pending to [facility] Folic Acid/Vitamin B Comp W-C [Nephrocaps, Renaphro] 1 capsule PO DAILY #30 capsule Transmission Status: Pending to [facility] Pantoprazole Sodium [Protonix] 40 mg PO DAILY #30 tablet Transmission Status: Pending to [facility] Primary Care Physician: Yola Ng MD [Primary Care Provider] - Within 2 Weeks Please Follow Up With: [facility]: 06/02/2020 Disposition: Home Minutes spent on discharge:: 40 Patient Condition:: Good Medical Necessity - Tobacco Use Smoking Status: Former smoker - Quit 2000 Meaningful Use Info Meaningful Use Diagnoses (Choose all that apply): None applicable Inpatient E&M: 94942 Disch Hosp
[2020-06-01] MEDS: busPIRone 5 MG Tablet 10 MG PO (15:22)
[2020-06-01] MEDS: Venlafaxine XR 150 MG Capsule PO (15:24)
[2020-06-01] MEDS: Folic Acid/Vitamin B Comp W-C 1 Capsule 1 CAP PO (15:25)
[2020-06-01] MEDS: Furosemide 40 MG Tablet PO (15:25)
[2020-06-01] MEDS: Pantoprazole Sodium 40 MG Tablet PO (15:26)
--- NOTE | 2020-06-01 15:58 | CASEMGMT ---
This RN CM to room to go over plan of care with pt again at this time. Pt states no need for any HHC at discharge and has been on room air for days and has been independent in the room. 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 Pt voices no further questions/concerns/needs. [place] GEORGE
[2020-06-01 16:26] LABS: Bedside Glucose 144 mg/dL (70-110)
--- NOTE | 2020-06-02 10:16 | CASEMGMT ---
Dialysis run notes faxed to [facility] per request. Ben LUNDY CM
--- NOTE | 2020-06-02 15:38 | CASEMGMT ---
RN DORIS Discharge Follow-up Phone Call: EDGARD: Zoey Strata: 3 Call Date: 06/02/20 Discharge Date: 06/01/20 Time of Call: [id number] Duration: 1 min Admitting Diagnosis: CHF RN DORIS attempted to complete follow-up phone call after recent hospitalization. No answer, voice message left with return contact information.
== END 2020-06-01 18:15 | disposition home or self-care (01) | DRG 291 ==
LOC: ED 09:16 → PCU 11:33
PROVIDERS: Family Medicine; Hospitalist; Internal Medicine; Internal Medicine Nephrology; Physician Assistant; Surgery; Emergency Provider Emergency Medicine; PCP Internal Medicine
PROC: 02H633Z Insertion of Infusion Device into Right Atrium, Percutaneous Approach (ICD-10-PCS; principal; 2020-06-01 14:00)
DX: I13.2 Hypertensive heart and chronic kidney disease with heart failure and with stage 5 chronic kidney disease, or end stage renal disease (principal); I50.33 Acute on chronic diastolic (congestive) heart failure; J96.01 Acute respiratory failure with hypoxia; Z68.43 Body mass index [BMI] 50.0-59.9, adult; N18.5 Chronic kidney disease, stage 5; D50.9 Iron deficiency anemia, unspecified; D63.1 Anemia in chronic kidney disease; E11.22 Type 2 diabetes mellitus with diabetic chronic kidney disease; T50.2X5A Adverse effect of carbonic-anhydrase inhibitors, benzothiadiazides and other diuretics, initial encounter; Y92.9 Unspecified place or not applicable; E11.42 Type 2 diabetes mellitus with diabetic polyneuropathy; E11.51 Type 2 diabetes mellitus with diabetic peripheral angiopathy without gangrene; E66.01 Morbid (severe) obesity due to excess calories; F32.9 Major depressive disorder, single episode, unspecified; G47.33 Obstructive sleep apnea (adult) (pediatric); I25.10 Atherosclerotic heart disease of native coronary artery without angina pectoris; E11.621 Type 2 diabetes mellitus with foot ulcer; L97.522 Non-pressure chronic ulcer of other part of 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; E11.319 Type 2 diabetes mellitus with unspecified diabetic retinopathy without macular edema; I48.0 Paroxysmal atrial fibrillation; I49.1 Atrial premature depolarization; I27.20 Pulmonary hypertension, unspecified; J44.9 Chronic obstructive pulmonary disease, unspecified; M20.42 Other hammer toe(s) (acquired), left foot; M24.572 Contracture, left ankle; I87.2 Venous insufficiency (chronic) (peripheral); K21.9 Gastro-esophageal reflux disease without esophagitis; Z79.01 Long term (current) use of 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; Z79.02 Long term (current) use of antithrombotics/antiplatelets; Z79.4 Long term (current) use of insulin; Z86.718 Personal history of other venous thrombosis and embolism; Z87.891 Personal history of nicotine dependence; Z99.2 Dependence on renal dialysis; Z91.19 Patient's noncompliance with other medical treatment and regimen
CPT/HCPCS: 36415; 36600; 71045; 76000; 76770; 80048; 80053; 80061; 80069; 81001; 81050; 82306; 82575; 82728; 82803; 82962; 83036; 83540; 83550; 83605; 83735; 83880; 83970; 84156; 84443; 84484; 85025; 85610; 86704; 86706; 86850; 86900; 86901; 86920; 86922; 87040; 87086; 87340; 87426; 90937; 93005; 93306; 93970; 94002; 94003; 94640; 97802; 97803; 99251; 99285; J7030; J7040; J7050; P9016; P9017; Q9957; A4216; C1750; C1752; C8929; G0257; G0463; J1940; J2405; J2916; J3490

== ENCOUNTER 2020-06-13 11:29 | Emergency (ER) | payer OTHER, SELFPAY ==
[2020-06-01 13:49] VITALS: BMI 45.9
[2020-06-13 11:31] VITALS: BP 89/77; PULSE 85; RESP 28; TEMP 36.6; O2SAT 100; BMI 45.7
--- NOTE | 2020-06-13 11:32 | CT_ITS ---
STUDY: CT BRAIN WITHOUT CONTRAST REASON FOR EXAM: Male, 60 years old. Long-term anticoagulant loose and head trauma RADIATION DOSAGE (If Supplied By Facility): CTDIvol = ( 44.99 ) mGy, DLP = ( 880.47 ) mGycm TECHNIQUE: Transaxial CT imaging of the brain was performed without administration of intravenous contrast material. Individualized dose optimization techniques were used for this CT. COMPARISON: No relevant priors. FINDINGS: Normal soft tissue structures. Normal calvarium. Normal size ventricles and extra-axial spaces for the patient''s age. Normal white matter tracts of the cerebral hemispheres. Normal basal ganglia and thalami. Normal brainstem. Normal cerebellum. There is no intracranial hemorrhage. There are no findings of an acute ischemic infarction. Air-fluid level in the right sphenoid sinus consistent with acute sinusitis. CT/Brain/Head without Contrast IMPRESSION: Normal unenhanced CT scan of the brain. Electronically Signed: New Tapia MD at 12:56 EDT Tel , Service support ,
--- NOTE | 2020-06-13 11:33 | EKG12_ITS ---
Test Reason : SYNCOPE Blood Pressure : / mmHG Vent. Rate : 076 BPM Atrial Rate : 340 BPM P-R Int : 000 ms QRS Dur : 086 ms QT Int : 424 ms P-R-T Axes : 000 053 -21 degrees QTc Int : 477 ms Atrial fibrillation Low voltage QRS Nonspecific T wave abnormality Abnormal ECG Confirmed by LIZZY HARVEY, BRIANNA ([id number]), photographic editor KARRI AMIN ([id number]) on 06/17/2020 8:30:05 AM Referred By: Confirmed By:BRIANNA BALL MD
--- NOTE | 2020-06-13 11:34 | ED.VIS.GEN ---
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 He states he was changing his mask. He remembers waking up everyone staring at him. He was on the floor. Presently he denies double vision blurred vision loss of vision. He denies ringing in his ears or decreased hearing. He denies epistaxis, rhinorrhea, congestion or postnasal drainage. He does report slight hoarse voice. He denies neck pain. He denies new anesthesia or paresthesia. He has history of diabetic neuropathy. He denies motor weakness. Denies problems with balance. Over the past week he has had buckling of his nares/near syncope. Presently has no complaints Patient denies black or maroon-colored stool. Patient denies vomiting. Patient denies chest pain, dyspnea on exertion, orthopnea or PND. Patient denies fever or chills. Patient denies weight gain or weight loss. Patient denies dysuria, frequency, urgency or hematuria Prior similar symptoms: No Recent Illness/Hospitalization: No - Past Medical History (1) Hemodialysis patient Status: Acute (2) Atrial fibrillation Status: Acute (3) [id number] kidney injury Status: Chronic (4) Anemia Status: Chronic (5) Depression Status: Chronic (6) Edema of left lower leg due to peripheral venous insufficiency Status: Chronic (7) Essential hypertension Status: Chronic (8) History of DVT of lower extremity Status: Chronic (9) Morbid obesity Status: Chronic (10) Type 2 diabetes mellitus with diabetic polyneuropathy Status: Chronic Past Medical History - Allergies and Home Meds Allergies/Adverse Reactions: Allergies cephalexin Allergy (Verified 06/13/20 11:36) Hives Penicillins Allergy (Verified 06/13/20 11:36) Hives Primary Care Physician: Yola Ng MD [Primary Care Provider] - Prior records reviewed: Yes Surgical History: noncontributory, - - carpal tunnel syndrom surgery Lives: Alone Smoking Status: Former smoker - Quit 2000 Alcohol: None Drugs: None - Family History Maternal Family History: Reports: Heart Disease Review of Systems General: Reports: Malaise. Denies: Chills, Fever, Subjective, Sweats, Weight loss Eyes: Denies: Visual changes - bilaterally, Blurred Vision - bilaterally ENT: Reports: - - Hoarse voice. Denies: Bilateral ear pain, Rhinorrhea, Sore throat Cardiovascular: Denies: Chest pain, Palpitations Respiratory: Denies: Dyspnea, Cough, Dyspnea on exertion, Orthopnea, Paroxysmal nocturnal dyspnea Gastrointestinal: Denies: Abdominal pain, Nausea, Vomiting, Diarrhea, Melena, Hematochezia Musculoskeletal: Reports: Swelling, Extremity Pain. Denies: Myalgias, Arthralgias, Neck pain, Back pain Neurological: Reports: Weakness, Parasthesia. Denies: Headache Psych: Reports: Depression Hematologic: Denies: Easy bruising, Easy bleeding Allergy: Denies: Uticaria, Swelling of the mouth Physical Exam Inital Vital Signs reviewed: Yes General: Well nourished, Well developed, Obese, No Acute Distress Head: Normocephalic, Atraumatic Eyes: Perrl, EOMI ENT: Moist mucous membranes, No rhinorrhea Neck: Supple, Nontender, No lymphadenopathy, No JVD Cardiovascular: Regular rate, Regular rhythm, No murmurs, Normal S1, Normal S2 Respiratory: No distress, CTA bilaterally, Chest nontender Abdomen: Soft, Nontender, Nondistended, Normal bowel sounds, - - Bruising noted anterior right abdominal wall.. Negative for: Mass, Pulsatile mass Back: Nontender, Normal Inspection Extremities: Nontender, Edema Skin: Normal color, No rash. Negative for: Cyanosis, Diaphoresis, Jaundice Neurological: Alert, Oriented x3, Cranial nerves II-XII grossly intact, Normal Strength. Negative for: Normal Sensation Psychological: Normal affect, Normal Mood Diagnostic/Tx/Re-eval Impressions Brain CT 06/13/20 11:32 IMPRESSION: Normal unenhanced CT scan of the brain. Electronically Signed: New Tapia MD at 12:56 EDT Tel , Service support , 06/13/20 11:32 Brain/Head without Contrast [CT] Stat Laboratory Results 06/13/20 06/13/20 06/13/20 11:45 11:45 11:45 WBC 6.8 RBC 3.84 L Hgb 11.0 L Hct 34.7 L MCV 90.4 MCH 28.6 MCHC 31.7 L RDW Std Deviation 51.3 H RDW Coeff of Kassandra 15.7 H Plt Count 312 MPV 10.2 Immature Gran % (Auto) 0.300 Neut % (Auto) 67.5 Lymph % (Auto) 20.7 [place] % (Auto) 8.9 Eos % (Auto) 2.2 Baso % (Auto) 0.4 Absolute Neuts (auto) 4.6 Absolute Lymphs (auto) 1.40 Nucleated RBC % 0 PT 22.0 H INR 2.0 Sodium 137 Potassium 4.1 Chloride 99 Carbon Dioxide 28.0 Anion Gap 10 BUN 49 H Creatinine 6.55 H Estim Creat Clear Calc 11.75 Est GFR (MDRD) Af Amer 11 L Est GFR (MDRD) Non-Af 9 L BUN/Creatinine Ratio 7.5 L Glucose 254 H Lactic Acid Calcium 8.9 Troponin I < 0.015 06/13/20 11:50 WBC RBC Hgb Hct MCV MCH MCHC RDW Std Deviation RDW Coeff of Kassandra Plt Count MPV Immature Gran % (Auto) Neut % (Auto) Lymph % (Auto) Sussex % (Auto) Eos % (Auto) Baso % (Auto) Absolute Neuts (auto) Absolute Lymphs (auto) Nucleated RBC % PT INR Sodium Potassium Chloride Carbon Dioxide Anion Gap BUN Creatinine Estim Creat Clear Calc Est GFR (MDRD) Af Amer Est GFR (MDRD) Non-Af BUN/Creatinine Ratio Glucose Lactic Acid 3.8 H* Calcium Troponin I Blood work is remarkable for chronic renal failure and lactic acidosis. The lactic acidosis is probably due to diabetes. CT of the head reviewed by me and interpreted radiologist as negative for any intracranial bleed or trauma. Since patient's INR is not greater than 2 and the CAT scan reveals no hemorrhage per literature and he can be discharged safely to home. - EKG Initial EKG Interpretation: Atrial Fibrillation - Atrial fibrillation with a ventricular rate of 76. QRS duration 86 ms. QT duration 424 ms. [place] is normal. - Medical Decision Making EKG was obtained to determine rhythm. CBC to rule out anemia, PT/INR since he is on Coumadin because he had a similar showed with fall and head trauma will obtain CAT scan of the head to rule out subdural, epidural, traumatic subarachnoid hemorrhage or intraparenchymal contusion. Vital signs per elevator operator was remarkable for systolic pressure of 104. He was not bradycardic or tachycardic, however. Electrolyte panel was obtained to assess electrolytes and specifically potassium since he has not been dialyzed. Since he reports several episodes over the past week a troponin was obtained to evaluate for cardiac ischemia. With reported numerous near falls suspect this is autonomic dysfunction due to diabetes. 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
[2020-06-13 11:35] VITALS: PULSE 75; RESP 17; O2SAT 99
[2020-06-13 11:38] VITALS: BP 110/54; PULSE 70; RESP 18; O2SAT 98
[2020-06-13 11:54] LABS: Absolute Neutrophil Count 4.6 X10^3/uL (2.0-7.7); Basophil# 0.03 X10^3/uL; Basophil% 0.4 % (0-1); Eosinophil# 0.15 X10^3/uL; Eosinophils% 2.2 % (0-5); Hematocrit 34.7 % (40-54); Lymphocyte % 20.7 % (19-41); Mean Corp Hgb Conc 31.7 g/dL (32-36); Mean Corpuscular Hgb 28.6 pg (27.0-32.0); Mean Corpuscular Volume 90.4 fL (80-94); Mean Platelet Vol. 10.2 fl (6.2-12.0); Monocyte% 8.9 % (0-10); NRBC Flagged by Analyzer 0 % (0-5); Neutrophil # 4.57 X10^3/uL (2.7-7.7); Neutrophil % 67.5 % (47-70); Platelet Count 312 K/mm3 (150-450); RBC Distribution Width CV 15.7 % (11.6-14.6); RBC Distribution Width SD 51.3 fl (35.1-43.9); Red Blood Count 3.84 M/mm3 (4.6-6.2); White Blood Count 6.8 K/mm3 (4.4-11.0)
[2020-06-13 12:11] LABS: Anion Gap 10 (5-15); BUN 49 mg/dL (7-18); BUN/Creat Ratio 7.5 RATIO (10-20); Calcium,Total 8.9 mg/dL (8.5-10.1); Chloride 99 mmol/L (98-107); Creatinine, Serum 6.55 mg/dL (0.70-1.30); EST Glomerular Filtration Rate 9 mL/min (>60); Est Glom Filt Rate - Afr Amer 11 mL/min (>60); Estimated Creatinine Clearance 11.75 ml/min; Glucose 254 mg/dL (74-106); Potassium 4.1 mmol/L (3.5-5.1); Sodium Level 137 mmol/L (136-145)
[2020-06-13 12:30] LABS: Lactic Acid 3.8 mmol/L (0.4-1.9)
[2020-06-13 13:23] VITALS: BP 133/77; PULSE 76; PULSE 78; RESP 18; O2SAT 99
--- NOTE | 2020-06-13 13:24 | ED.RN ---
THIS RN CALLED REPORT TO [facility] AND SPOKE WITH GRETCHEN LUNDY
[2020-06-13 15:54] LABS: Reflex Lactate? Y
== END 2020-06-13 13:24 | disposition home or self-care (01) ==
PROVIDERS: Emergency Provider Emergency Medicine; PCP Internal Medicine
DX: S06.0X9A Concussion with loss of consciousness of unspecified duration, initial encounter (principal); W19.XXXA Unspecified fall, initial encounter; Y93.9 Activity, unspecified; Y92.9 Unspecified place or not applicable; I13.2 Hypertensive heart and chronic kidney disease with heart failure and with stage 5 chronic kidney disease, or end stage renal disease; E11.22 Type 2 diabetes mellitus with diabetic chronic kidney disease; I50.9 Heart failure, unspecified; N18.6 End stage renal disease; E11.40 Type 2 diabetes mellitus with diabetic neuropathy, unspecified; E66.01 Morbid (severe) obesity due to excess calories; Z68.42 Body mass index [BMI] 45.0-49.9, adult; I48.20 Chronic atrial fibrillation, unspecified; F32.9 Major depressive disorder, single episode, unspecified; D64.9 Anemia, unspecified; I48.91 Unspecified atrial fibrillation; Z86.718 Personal history of other venous thrombosis and embolism; Z99.2 Dependence on renal dialysis; Z79.01 Long term (current) use of 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; Z79.4 Long term (current) use of insulin; Z79.899 Other long term (current) drug therapy; Z87.891 Personal history of nicotine dependence
CPT/HCPCS: 70450; 80048; 83605; 84484; 85025; 85610; 93005; 99285; A4216

== ENCOUNTER 2020-07-22 11:50 | Day surgery (SDC) | payer OTHER, SELFPAY ==
[2020-06-17 13:01] VITALS: BMI 45.6
[2020-07-13 12:46] VITALS: BMI 45.6
--- NOTE | 2020-07-17 12:26 | EKG12_ITS ---
Test Reason : PREOP Blood Pressure : / mmHG Vent. Rate : 081 BPM Atrial Rate : 077 BPM P-R Int : 000 ms QRS Dur : 082 ms QT Int : 366 ms P-R-T Axes : 000 050 062 degrees QTc Int : 425 ms Atrial fibrillation Low voltage QRS Abnormal ECG When compared with ECG of 13-JUN-2020 12:10, Nonspecific T wave abnormality no longer evident in Inferior leads Confirmed by DIANA HARVEY, LUARA ([id number]), editor department KARRI AMIN ([id number]) on 07/21/2020 2:05:32 PM Referred By: Willem Deal Confirmed By:LAURA ORTIZ MD
[2020-07-17 13:12] LABS: Hematocrit 36.8 % (40-54); Hemoglobin 11.5 g/dL (13.0-16.5); Mean Corp Hgb Conc 31.3 g/dL (32-36); Mean Corpuscular Hgb 29.2 pg (27.0-32.0); Mean Corpuscular Volume 93.4 fL (80-94); Mean Platelet Vol. 9.9 fl (6.2-12.0); Platelet Count 217 K/mm3 (150-450); RBC Distribution Width SD 55.2 fl (35.1-43.9); Red Blood Count 3.94 M/mm3 (4.6-6.2); White Blood Count 7.5 K/mm3 (4.4-11.0)
[2020-07-17 13:35] LABS: Anion Gap 5 (5-15); BUN 46 mg/dL (7-18); BUN/Creat Ratio 7.3 RATIO (10-20); Calcium,Total 9.1 mg/dL (8.5-10.1); Chloride 97 mmol/L (98-107); EST Glomerular Filtration Rate 10 mL/min (>60); Est Glom Filt Rate - Afr Amer 12 mL/min (>60); Glucose 127 mg/dL (74-106); Sodium Level 136 mmol/L (136-145)
[2020-07-22] VITALS (8 sets, daily range): BP systolic 113–130; BP diastolic 58–82; PULSE 61–93; RESP 16–18; TEMP 36.3–36.8; O2SAT 95–100; BMI 45.1
[2020-07-22 12:21] LABS: INR Fingerstick 1.7; Prothrombin Time Fingerstick 20.1 SEC (11.9-14.4)
[2020-07-22 12:31] LABS: Bedside Glucose 122 mg/dL (70-110)
[2020-07-22] MEDS: 0.9% Normal Saline 1,000 ML 15 ML IV (12:55)
--- NOTE | 2020-07-22 13:30 | PCM.HP.BLA ---
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: No Is patient in pain?: No Allergies cephalexin Allergy (Verified 07/13/20 12:45) Hives Penicillins Allergy (Verified 07/13/20 12:45) Hives Medications ascorbic acid (vitamin C) [Vitamin C] 1,000 mg PO DAILY 12/02/16 [History Confirmed 07/13/20] buspirone 10 mg PO BID 12/02/16 [History Confirmed 07/13/20] carvedilol 12.5 mg PO BID 12/02/16 [History Confirmed 07/13/20] cholecalciferol (vitamin D3) [Vitamin D3] 1,000 unit PO DAILY 12/02/16 [History Confirmed 07/13/20] dicyclomine 20 mg PO TID 12/02/16 [History Confirmed 07/13/20] multivitamin [Multiple Vitamins] 1 ea PO DAILY 12/02/16 [History Confirmed 07/13/20] nifedipine 90 mg PO QHS 12/02/16 [History Confirmed 07/13/20] psyllium husk (with sugar) [Metamucil (with sugar)] 3.4 g PO PRN PRN 12/02/16 [History Confirmed 07/13/20] venlafaxine 150 mg PO DAILY 12/02/16 [History Confirmed 07/13/20] atorvastatin 40 mg PO DAILY 05/23/20 [History Confirmed 07/13/20] clopidogrel 75 mg PO DAILY 05/23/20 [History Confirmed 07/13/20] insulin NPH isoph U-100 human 12 units SQ QHS 05/23/20 [History Confirmed 07/13/20] pyridoxine (vitamin B6) 100 mg PO DAILY 05/23/20 [History Confirmed 07/13/20] B complex with C 20-folic acid 1 capsule PO DAILY #30 capsule 06/01/20 [Rx Confirmed 07/13/20] furosemide 40 mg PO BID@1000,1800 #60 tablet 06/01/20 [Rx Confirmed 07/13/20] pantoprazole 40 mg PO DAILY #30 tablet 06/01/20 [Rx Confirmed 07/13/20] simethicone 80 mg PO TIDPC tablet 06/01/20 [Rx Confirmed 07/13/20] warfarin 12.5 mg PO DINNER #0 06/01/20 [Rx Confirmed 07/13/20] gabapentin 600 mg PO BID 06/13/20 [History Confirmed 07/13/20] [facility] Medical History (Updated 07/13/20 @ 12:44 by Vikki Bird) (HFpEF) heart failure with preserved ejection fraction Acute exacerbation of CHF (congestive heart failure) [id number] kidney injury Anemia Atrial fibrillation Chest pain CHF (congestive heart failure) Chronic 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 Colonization status Delayed wound healing Depression Diastolic CHF, acute Edema of left lower leg due to peripheral venous insufficiency Equinus contracture of left ankle Essential hypertension Hammer toe of left foot Hemodialysis patient History of DVT of lower extremity Malnutrition Morbid obesity Other specified peripheral vascular diseases Type 2 diabetes mellitus with diabetic polyneuropathy Ulcer of left lower extremity with fat layer exposed Surgical History S/P carpal tunnel release S/P tonsillectomy Family History Mother Diabetes Heart disease Hypertension Social History Smoking Status: Former smoker alcohol intake: never HPI HPI HPI: MAREK RAMSAY, is a 60 M who presents to the office today for an update history and physical for an upcoming elective fistula creation. Patient denies recent hospitalizations or illnesses since his last office visit. Patient denies previous myocardial infarction, stents or stroke. He is on Coumadin for A. Fib and Plavix for lower extremity arterial disease per Dr. Shannon. Patient is currently on dialysis vis tunneled chest catheters. He denies previous complications or side effects from anesthesia. Patient's previous history per Dr. Deal: MAREK RAMSAY, is a 60 M who presents to the office today for surgical consultation regarding creating an arteriovenous hemodialysis fistula. The patient was just recently hospitalized at the [facility] in acute congestive heart failure. He has had a right internal jugular tunneled dialysis catheters placed. He has discussed ongoing treatment options with Dr. Lillian Acharya. He is now interested in having a arteriovenous hemodialysis fistula placed. He is right arm dominant. Unfortunately because of his renal insufficiency he does pick at wounds and he has open wounds bilateral upper extremities. The patient is referred by Dr. Lillian Acharya for arteriovenous hemodialysis fistula creation and a written copy my surgical consult and recommendations will be returned to her Vein mapping was obtained as noted below. He did have an IV in place in the left forearm cephalic vein at the time of the imaging. May 25, 2020 Reason For Study: AV Fistula Right Arm Left Arm Right Cephalic Vein at the wrist measures Left Cephalic Vein at the wrist measures 0.40 x 0.42 cm. 0.43 x 0.46 cm. Right Cephalic Vein in the forearm measures Left Cephalic Vein in the forearm measures 0.40 x 0.40 cm. 0.39 x 0.41 cm. Right Cephalic Vein below antecub measures IV noted at wrist cephalic vein. 0.34 x 0.36 cm. Mid forearm branch that measures 0.32 x 0.37 Right Cephalic Vein above antecub measures cm. 0.50 x 0.50 cm. Left Cephalic Vein below antecub measures Right Cephalic Vein mid bicep measures 0.48 0.37 x 0.37 cm. x 0.47 cm. Left Cephalic Vein above antecub measures Right Cephalic Vein at the shoulder measures 0.33 x 0.34 cm. 0.48 x 0.52 cm. Left Cephalic Vein at mid bicep measures Right Basilic Vein at the origin measures 0.29 x 0.30 cm. 0.53 x 0.55 cm. Left Cephalic Vein at the shoulder measures Right Basilic Vein mid bicep measures 0.45 x 0.40 x 0.36 cm. 0.45 cm. Basilic vein at origin measures 0.64 x 0.62 Right Basilic Vein above antecub measures cm. 0.50 x 0.48 cm. Basilic vein at bicep measures 0.49 x 0.50 Right Brachial artery measures 0.45 x 0.45 cm. cm with a velocity of 137.4 cm/sec. Basilic vein above antecub measures 0.42 x Right Radial artery measures 0.23 x 0.22 cm 0.41 cm. with a velocity of 139.5 cm/sec. Left Brachial artery measures 0.44 x 0.44 sm with a velocity of 152.5 cm/sec. Left Radial artery measures 0.23 x 0.23 cm with a velocity of 172.1 cm/sec. VL/Saphenous Vein Mapping, Bilat Interpretation Summary Dimensions of bilateral cephalic and basilic veins bilaterally IV is noted in a potential fistula vein--the cephalic vein of the left wrist. Increased velocity flow bilateral brachial and radial arteries. Ordering Physician: Lillian Acharya Referring Physician: Yola Ng M.D. Performed By: Alyssa Mcgrath RVT General General: Yes weight change; No appetite, fatigue, colon cancer, breast cancer or weakness HEENT HEENT: No difficulty swallowing, eye injury, eye surgery, swollen glands or hoarseness Endo Endocrine: Yes diabetes mellitus; No thyroid disease, thyroid cancer, Hair loss, heat intolerance or cold intolerance Skin Skin: No rash or changing moles Musc Musculoskeletal: No back problems, arthritis, rheumatoid arthritis, gout or joint pain Psych Psychiatric: Yes depression; No anxiety or hearing voices Resp Respiratory: No shortness of breath, Yes sleep apnea, No cough, No COPD, No asthma, No emphysema and No wheezing Gastro Gastrointestinal: No abdominal pain, No nausea or vomiting, No diarrhea, No constipation, No blood in stool, No acid reflux, No hemorrhoids, No ulcers, No gallbladder problem and No black,tarry stools Robby Hematologic: Yes blood thinners, No blood disorders, No bleeding, Yes anemia and Yes blood clots Neuro Neurologic: No system reviewed and no additional complaints, except as documented, No as per HPI, No abnormal gait, No abnormal hearing, No abnormal movements, No abnormal speech, No behavioral changes, No burning sensations, No confusion, No convulsions, No disequilibrium, No dizziness, No localized weakness, No frequent falls, No headache(s), No lack of coordination, No loss of vision, No memory loss, Yes numbness, No other visual disturbances, No radicular pain, No restless legs, No sensory deficit, No syncope, Yes tingling, No tremor(s), No weakness and No other Exam Const General: cooperative, comfortable and no acute distress Nutritional Appearance: obese HENMT Head: normal to inspection Eyes General: appearance normal, both eyes and all related structures Neck Neck: normal visual inspection Neck mass: No Resp Effort & Inspection: normal respiratory effort Auscultation: clear to auscultation bilaterally Cardio Rate: regular rate Rhythm: regular rhythm GI Inspection: large pannus Palpation: soft Auscultation: normal bowel sounds Skin General: no rashes or lesions noted Neuro General: no focal motor deficits and CN's II-XI intact bilaterally Extrem General: normal to inspection Psych Appearance: grossly normal Affect: normal affect COVID (Procedure Consent) Procedure Criteria Procedure Criteria: Yes Elective The surgeon/proceduralist and patient have discussed in detail the risk of exposure to and/or potential harm posed by the COVID-19 virus with having a surgery/procedure at this time versus the risk of delaying the surgery/procedure. It is not possible to know either the risk of delaying the surgery or procedure or chance of getting an infection with perfect accuracy, but a joint decision was made between the patient and the surgeon/proceduralist to proceed at this time with the scheduled surgery/procedure as indicated on the consent form. Assessment and Plan Assessment and Plan (1) Chronic renal failure, stage 5: Status: Chronic Plan - Mary LEAL PARustyC: Dr. Deal will plan to perform a transposition left upper arm cephalic vein to brachial artery arteriovenous fistula creation. Procedure details, risks and benefits have been reviewed. Patient has had the opportunity to ask and have questions answered. Patient verbally understands and agrees with the plan. He is aware he will need to hold his Coumadin and Plavix for 3 days prior to the procedure. Patient has had both his COVID vaccines. Coding Level of Care Code No Charge Diagnoses Chronic renal failure, stage 5 N18.5
[2020-07-22] MEDS: Heparin Injection (Vial) 5,000 UNIT/ML VIAL 5000 UNIT (13:31)
--- NOTE | 2020-07-22 13:32 | EX.PCM.DISCH ---
Discharge Instructions Procedure Fistula Diet Discharge Diet: Renal Diet Activity Discharge Activity: May Not Drive (for 2-3 days or while taking narcotic pain medications.), May Shower and May Take a Tub Bath (in 5 days.) Lifting Restrictions: 5 pounds Keep extremity elevated above heart level: - (Keep arm elevated above the heart level for 3 days.) Dressing / Incision Call your doctor if your incision/area has: Continuous Slow Oozing, Sudden Increased Bleeding (apply pressure and call your doctor.), Increased Pain/ Swelling, Increased Redness and Foul Smelling Discharge Call your doctor if you observe: Fever of 101 or Higher Suture Line Care: Avoid Pulling/Pushing and Avoid Pinching/Bending Cleanse incision/area with: Keep Dressing Clean & Dry Follow Up Care Please Follow Up With: Willem Deal MD When: Call [phone] to make an appointment for suture removal and follow up in 1 week. Test Results: Test results from this visit will be discussed in further detail at your follow-up appointment, if applicable. Please leave the Mason wrap intact for approximately 2 to 3 days and then you may carefully remove it. Leave the Steri-Strips in place for an additional 1 week Call for office follow-up in approximately 10 days. [phone] Pending any difficulties overnight you may resume your Klonopin Adderall and warfarin tomorrow. If there are concerns regarding strikethrough oozing on the dressings or excessive swelling then please contact the office prior to resuming your blood thinners. Discharge Plan Admission Attending Provider: Willem Deal Primary Care Provider: Yola Ng Discharge Orders/Prescriptions Prescriptions: No Action ascorbic acid (vitamin C) [Vitamin C] 1,000 MG tablet 1,000 mg PO DAILY RF: 0 carvedilol 12.5 MG tablet 12.5 mg PO BID RF: 0 venlafaxine 150 MG capsule 150 mg PO DAILY RF: 0 nifedipine 30 MG tablet extended release 90 mg PO QHS RF: 0 dicyclomine 20 MG tablet 20 mg PO TID RF: 0 buspirone 10 MG tablet 10 mg PO BID RF: 0 Metamucil (with sugar) 3.4 GM powder in packet 3.4 g PO PRN PRN (Reason: Constipation) RF: 0 atorvastatin 40 MG tablet 40 mg PO DAILY RF: 0 clopidogrel 75 MG tablet 75 mg PO DAILY RF: 0 pyridoxine (vitamin B6) 100 MG tablet 100 mg PO DAILY RF: 0 insulin NPH isoph U-100 human 100 UNIT/ML insulin pen 12 units SQ QHS RF: 0 furosemide 40 MG tablet 40 mg PO BID@1000,1800 Qty: 60 RF: 0 pantoprazole 40 MG tablet 40 mg PO DAILY Qty: 30 RF: 0 B complex with C 20-folic acid 1 CAPSULE capsule 1 capsule PO DAILY Qty: 30 RF: 0 simethicone 80 MG tablet 80 mg PO TIDPC RF: 0 warfarin 5 MG tablet 12.5 mg PO DINNER Qty: 0 RF: 0 gabapentin 100 MG capsule 600 mg PO BID RF: 0 calcium acetate(phosphat bind) 667 mg Capsule 667 mg PO TID RF: 0
[2020-07-22] MEDS: Lidocaine 1% (30 ml sdv) 30 ML Vial (14:20)
[2020-07-22] MEDS: Bupivacaine Mpf 0.5% 30 ML VIAL (14:20)
[2020-07-22] MEDS: Lidocaine 0.5% (50 ml) 50 ML Vial (14:23)
--- NOTE | 2020-07-22 16:36 | PCM.OPRPT ---
Problems Associated Problem List Diagnoses (1) Chronic renal failure, stage 5: Report of Operation Date of Procedure: 07/22/20 Pre-Operative Diagnosis: Stage V chronic renal failure on tunneled dialysis for hemodialysis in need of a arteriovenous fistula creation Post-Operative Diagnosis: Same Surgery/Procedure Performed:: Left upper arm transposition cephalic vein to brachial artery arteriovenous hemodialysis fistula creation Description of Surgical Findings:: Timeout and informed consent was obtained. 60-year-old gentleman was taken to the operating room placed upon the table. He underwent monitored anesthesia care. Clindamycin 9 mg were given intravenously preoperatively. Throughout the procedure 24 cc of 1% lidocaine mixed 50-50 with 0.5% Marcaine and 20 cc of 0.5% lidocaine was used as local anesthetic. Ultrasound was used to map the course of the left upper arm cephalic vein. A longitudinal incision made directly over the vein tedious sharp and blunt dissection was required to dissect the vein free. Side branches were secured with 3-0 Vicryl ligatures and hemoclips. It was dissected free to the shoulder. Was then amputated the antecubital space at a branching point the branching point was used to splay to make a wider anastomosis the vein was irrigated several repair sutures of interrupted 7-0 Prolene were required for complete hemostasis. Then it was measured in length it was it had been inked marked. Local was instilled medial left antecubital space proximal to the antecubital space and sharp blunt dissection was used to identify the brachial artery that location it was circumferentially dissected free. Then a subcutaneous tunnel was made from the medial site up to the shoulder site. The vein was tunneled beneath it was irrigated and assured not to be cleaned. The patient received 10,000 units of heparin IV. Peripheral vascular clamps were placed on the brachial artery an 11 blade was used to make an arteriotomy which was extended with Ford scissors. A end-to-side anastomosis with the cephalic vein was performed with a running 7-0 Prolene. Prior to completion was good antegrade and retrograde flow. Hemostasis was intact. The vein appeared to have a good positional lie. Had a palpable thrill. Inspection revealed that the hand still appeared to be pink. There was adequate capillary refill. There were Doppler signals at both the left radial and ulnar site albeit somewhat blunted. I could I could detect persistent Doppler flow at the palm. Surgicel was placed in the major vein harvest wound. The patient received 30 mg of protamine as reversal agent. Each wound was closed with a subdermal layer of interrupted 3-0 Vicryl. Skin edges approximated running septic or 4-0 Monocryl. Steri-Strips Telfa soft roll Mason wrap applied. Sponge and instrument and needle counts were reported to the surgeon be correct. Specimen none. Drains none. Blood loss 100 cc. He was taken to the recovery area in satisfactory condition without apparent complication. Willem Deal M.D., F.A.C.S. Type of Anesthesia: Local MAC Anesthesiologist: Drake Del Cid
[2020-07-22] MEDS: HYDROcodone Bitartrate/Apap 5/325 Tablet PO (18:35)
== END 2020-07-22 18:31 | disposition home or self-care (01) ==
LOC: SDC 11:50 → AC 11:52
PROVIDERS: PCP Internal Medicine; Referring Provider Surgery; Visit Provider Surgery
PROC: (CPT 36818; principal; 2020-07-22 13:45)
DX: I13.2 Hypertensive heart and chronic kidney disease with heart failure and with stage 5 chronic kidney disease, or end stage renal disease (principal); I50.31 Acute diastolic (congestive) heart failure; N18.5 Chronic kidney disease, stage 5; E11.22 Type 2 diabetes mellitus with diabetic chronic kidney disease; Z99.2 Dependence on renal dialysis; I48.91 Unspecified atrial fibrillation; E11.42 Type 2 diabetes mellitus with diabetic polyneuropathy; F32.9 Major depressive disorder, single episode, unspecified; E66.01 Morbid (severe) obesity due to excess calories; Z68.42 Body mass index [BMI] 45.0-49.9, adult; E11.51 Type 2 diabetes mellitus with diabetic peripheral angiopathy without gangrene; E78.00 Pure hypercholesterolemia, unspecified; F41.9 Anxiety disorder, unspecified; K21.9 Gastro-esophageal reflux disease without esophagitis; H91.90 Unspecified hearing loss, unspecified ear; I27.20 Pulmonary hypertension, unspecified; G47.30 Sleep apnea, unspecified; Z86.2 Personal history of diseases of the blood and blood-forming organs and certain disorders involving the immune mechanism; Z86.718 Personal history of other venous thrombosis and embolism; Z79.4 Long term (current) use of insulin; Z79.01 Long term (current) use of 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; Z79.02 Long term (current) use of antithrombotics/antiplatelets; Z79.899 Other long term (current) drug therapy; Z87.891 Personal history of nicotine dependence
CPT/HCPCS: 36818; 36415; 36416; 80048; 82962; 85027; 85610; 87426; 93005; C9803; J7030; J7120

== ENCOUNTER → 2020-10-02 12:39 | Outpatient (CLI) | payer MEDICARE, OTHER, SELFPAY ==
[2020-07-22 12:29] VITALS: BMI 45.1
--- NOTE | 2020-10-02 12:41 | AVDS_ITS ---
Reason For Study: Dependence of renal dialysis LEFT Inflow artery, 218.6/79.5 cm/sec. Inflow artery, 990.6 ml/min. Prox anastomosis, 241.4/113.1 cm/sec. Prox anastomosis, 638.6 ml/min. Prox graft, 510.4/298.8 cm/sec. Prox graft, 1252 ml/min. Mid graft, 141/89.2 cm/sec. Mid graft, 906.2 ml/min. Distal graft, 58.5/36.4 cm/sec. Distal graft, 499.4 ml/min. Outflow vein, 447.5/276.6 cm/sec. Outflow vein, 754.2 ml/min. Radial artery mid, 101.5/21.2 cm/sec. Ulnar artery mid, 72.3 cm/sec. VL/AV Fistula/Dialysis Graft Scan Interpretation Summary High flow left upper extremity brachiocephalic arteriovenous hemodialysis fistu la Suspected focal valvular stenosis in the proximal left upper arm outflow portio n of the AV fistula. Patent and antegrade flow left radial and ulnar vessels Ordering Physician: Mary Bowens Referring Physician: Yola Ng M.D. Performed By: Alyssa Mcgrath RVT
== END ==
PROVIDERS: PCP Internal Medicine; Referring Provider Physician Assistant; Visit Provider Physician Assistant
DX: M65.30 Trigger finger, unspecified finger (principal); Z99.2 Dependence on renal dialysis
CPT/HCPCS: 93990

== ENCOUNTER 2020-11-06 09:14 | Day surgery (SDC) | payer MEDICARE, OTHER, SELFPAY ==
[2020-10-29 08:23] LABS: Hematocrit 34.7 % (40-54); Hemoglobin 11.4 g/dL (13.0-16.5); Mean Corp Hgb Conc 32.9 g/dL (32-36); Mean Corpuscular Hgb 32.6 pg (27.0-32.0); Mean Corpuscular Volume 99.1 fL (80-94); Mean Platelet Vol. 10.1 fl (6.2-12.0); Platelet Count 229 K/mm3 (150-450); RBC Distribution Width CV 14.6 % (11.6-14.6); RBC Distribution Width SD 52.8 fl (35.1-43.9)
[2020-10-29 08:52] LABS: Anion Gap 14 (5-15); BUN 69 mg/dL (7-18); BUN/Creat Ratio 8.6 RATIO (10-20); Calcium,Total 8.6 mg/dL (8.5-10.1); Chloride 98 mmol/L (98-107); Creatinine, Serum 8.04 mg/dL (0.70-1.30); EST Glomerular Filtration Rate 7 mL/min (>60); Est Glom Filt Rate - Afr Amer 9 mL/min (>60); Glucose 156 mg/dL (74-106); Potassium 4.2 mmol/L (3.5-5.1); Sodium Level 138 mmol/L (136-145)
[2020-10-30 07:07] VITALS: BMI 46.2
[2020-11-06 09:31] LABS: INR Fingerstick 3.5; Prothrombin Time Fingerstick 38.1 SEC (11.9-14.4)
--- NOTE | 2020-11-06 10:20 | PCM.HP.BLA ---
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 Is patient in pain?: No Allergies cephalexin Allergy (Verified 08/19/20 13:54) Hives Penicillins Allergy (Verified 08/19/20 13:54) Hives Medications Metamucil (with sugar) 3.4 g PO PRN PRN 12/02/16 [History Confirmed 10/19/20] ascorbic acid (vitamin C) [Vitamin C] 1,000 mg PO DAILY 12/02/16 [History Confirmed 10/19/20] buspirone 10 mg PO BID 12/02/16 [History Confirmed 10/19/20] carvedilol 12.5 mg PO BID 12/02/16 [History Confirmed 10/19/20] dicyclomine 20 mg PO TID 12/02/16 [History Confirmed 10/19/20] nifedipine 90 mg PO QHS 12/02/16 [History Confirmed 10/19/20] venlafaxine 150 mg PO DAILY 12/02/16 [History Confirmed 10/19/20] atorvastatin 40 mg PO DAILY 05/23/20 [History Confirmed 10/19/20] clopidogrel 75 mg PO DAILY 05/23/20 [History Confirmed 10/19/20] insulin NPH isoph U-100 human 12 units SQ QHS 05/23/20 [History Confirmed 10/19/20] pyridoxine (vitamin B6) 100 mg PO DAILY 05/23/20 [History Confirmed 10/19/20] B complex with C 20-folic acid 1 capsule PO DAILY #30 capsule 06/01/20 [Rx Confirmed 10/19/20] furosemide 40 mg PO BID@1000,1800 #60 tablet 06/01/20 [Rx Confirmed 10/19/20] pantoprazole 40 mg PO DAILY #30 tablet 06/01/20 [Rx Confirmed 10/19/20] simethicone 80 mg PO TIDPC tablet 06/01/20 [Rx Confirmed 10/19/20] warfarin 12.5 mg PO DINNER #0 06/01/20 [Rx Confirmed 10/19/20] gabapentin 600 mg PO BID 06/13/20 [History Confirmed 10/19/20] calcium acetate(phosphat bind) 667 mg PO TID 07/15/20 [History Confirmed 10/19/20] PFSH Medical History (Updated 10/19/20 @ 14:[address] Willem Deal MD) (HFpEF) heart failure with preserved ejection fraction Acute exacerbation of CHF (congestive heart failure) [id number] kidney injury Anemia Anxiety Atrial fibrillation Cardiology follow-up encounter Chest pain CHF (congestive heart failure) Chronic 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 Colonization status CPAP (continuous positive airway pressure) dependence Delayed wound healing Depression Dialysis catheter clot or failure Diastolic CHF, acute Dietary restriction DVT (deep venous thrombosis) Edema of left lower leg due to peripheral venous insufficiency Equinus contracture of left ankle Essential hypertension Former smoker Gastric reflux Hammer toe of left foot Hemodialysis patient High cholesterol History of DVT of lower extremity History of edema History of pain when walking History of renal disease History of stress test Hx of echocardiogram Loss of consciousness Loss of hearing Malnutrition Morbid obesity Other specified peripheral vascular diseases Pressure ulcer Pulmonary hypertension Shortness of breath on exertion Skin tear Syncope Transfusion (red blood cell) associated hemochromatosis Trigger finger Type 2 diabetes mellitus with diabetic polyneuropathy Ulcer of left lower extremity with fat layer exposed Wears glasses Surgical History History of arteriovenostomy for renal dialysis (~07/2020) History of carpal tunnel surgery of left wrist History of carpal tunnel surgery of right wrist History of tonsillectomy and adenoidectomy S/P carpal tunnel release S/P tonsillectomy Family History Mother Diabetes Heart disease Hypertension Social History Smoking Status: Former smoker alcohol intake: never HPI HPI HPI: MAREK RAMSAY, is a 60 M who presents to the office today for surgical consultation regarding a trigger finger. On July 22, 2020 I performed a left upper extremity brachiocephalic arteriovenous hemodialysis fistula creation. One of his postoperative visits he noted to Mary Bowens PA-C that he had triggering of the fourth digit of his left hand. Claims that this was present prior to his surgery. Among his other medications he is on clopidogrel and insulin and warfarin. On October 02, 2020 he had duplex imaging of his left upper arm arteriovenous hemodialysis fistula. This was to assure adequate arterial flow to the forearm and the hand. October 02, 2020 Reason For Study: Dependence of renal dialysis LEFT Inflow artery, 218.6/79.5 cm/sec. Inflow artery, 990.6 ml/min. Prox anastomosis, 241.4/113.1 cm/sec. Prox anastomosis, 638.6 ml/min. Prox graft, 510.4/298.8 cm/sec. Prox graft, 1252 ml/min. Mid graft, 141/89.2 cm/sec. Mid graft, 906.2 ml/min. Distal graft, 58.5/36.4 cm/sec. Distal graft, 499.4 ml/min. Outflow vein, 447.5/276.6 cm/sec. Outflow vein, 754.2 ml/min. Radial artery mid, 101.5/21.2 cm/sec. Ulnar artery mid, 72.3 cm/sec. VL/AV Fistula/Dialysis Graft Scan Interpretation Summary High flow left upper extremity brachiocephalic arteriovenous hemodialysis fistula Suspected focal valvular stenosis in the proximal left upper arm outflow portion of the AV fistula. Patent and antegrade flow left radial and ulnar vessels Ordering Physician: Mary Bowens Referring Physician: Yola Ng M.D. Performed By: Alyssa Mcgrath RVT 10/02/20 [id number] Willem Deal MD ROS General General: Yes weight change; No appetite, fatigue, colon cancer, breast cancer or weakness HEENT HEENT: No difficulty swallowing, eye injury, eye surgery, swollen glands or hoarseness Endo Endocrine: Yes diabetes mellitus; No thyroid disease, thyroid cancer, Hair loss, heat intolerance or cold intolerance Skin Skin: No rash or changing moles Musc Musculoskeletal: No back problems, arthritis, rheumatoid arthritis, gout or joint pain Psych Psychiatric: Yes depression; No anxiety or hearing voices Resp Respiratory: No shortness of breath, Yes sleep apnea, No cough, No COPD, No asthma, No emphysema and No wheezing Gastro Gastrointestinal: No abdominal pain, No nausea or vomiting, No diarrhea, No constipation, No blood in stool, No acid reflux, No hemorrhoids, No ulcers, No gallbladder problem and No black,tarry stools Robby Hematologic: Yes blood thinners, No blood disorders, No bleeding, Yes anemia and Yes blood clots Neuro Neurologic: No system reviewed and no additional complaints, except as documented, No as per HPI, No abnormal gait, No abnormal hearing, No abnormal movements, No abnormal speech, No behavioral changes, No burning sensations, No confusion, No convulsions, No disequilibrium, No dizziness, No localized weakness, No frequent falls, No headache(s), No lack of coordination, No loss of vision, No memory loss, Yes numbness, No other visual disturbances, No radicular pain, No restless legs, No sensory deficit, No syncope, Yes tingling, No tremor(s), No weakness and No other Exam Const General: cooperative and no acute distress Nutritional Appearance: obese Orientation: alert and awake [facility] Head: normal to inspection Eyes General: appearance normal, both eyes and all related structures Resp Effort & Inspection: normal respiratory effort Auscultation: clear to auscultation bilaterally Cardio Rate: regular rate Rhythm: regular rhythm GI Palpation: soft Skin Other: Multiple areas of ecchymosis left upper extremity Neuro Other: Bilateral upper extremity tremors Extrem Other: Left upper arm transposed cephalic vein to brachial artery AV fistula. It is pulsatile. Difficult to palpate a thrill. High-pitched bruit within the proximal 6 cm of the fistula Left hand Dupuytren's contracture severely involving the fifth digit with secondary involvement of the fourth digit Psych Affect: normal affect COVID (Procedure Consent) Procedure Criteria Procedure Criteria: Yes Elective The surgeon/proceduralist and patient have discussed in detail the risk of exposure to and/or potential harm posed by the COVID-19 virus with having a surgery/procedure at this time versus the risk of delaying the surgery/procedure. It is not possible to know either the risk of delaying the surgery or procedure or chance of getting an infection with perfect accuracy, but a joint decision was made between the patient and the surgeon/proceduralist to proceed at this time with the scheduled surgery/procedure as indicated on the consent form. Assessment and Plan Assessment and Plan (1) Problem with dialysis access: Status: Acute Qualifiers: Encounter type: initial encounter Qualified Code(s): T82.898A - Other specified complication of vascular prosthetic devices, implants and grafts, initial encounter (2) Dupuytrens contracture: Status: Acute Plan - Dr. Willem Deal MD: Problem with left upper arm transposed cephalic vein to brachial artery arteriovenous hemodialysis fistula. Even though duplex imaging suggest adequate flow clearly on a clinical basis there appears to be an adequate flow to support dialysis access. There is evidence of multiple areas of infiltration. I propose for him a left upper extremity fistulogram. I would anticipate accessing closer to the upper arm retrograde with flow. Anticipate probable relative stenosis of the proximal portion of the fistula and possible arterial anastomotic area. I have discussed technique, benefit, risk, alternatives Regarding the patient's contracture of the left fourth and fifth digit I recommend referral to a hand specialist Copy: Dr. Yola Ng and Dr. Lillian Deal M.D., F.A.C.S. I have re-examined the patient. There are no clinical changes since date of exam. Willem Deal M.D., F.A.C.S.
--- NOTE | 2020-11-06 11:51 | OP.PCM_ITS ---
Problems Associated Problem List Diagnoses (1) Problem with dialysis access: Report of Operation Date of Procedure: 11/06/20 Pre-Operative Diagnosis: Problem with dialysis access left upper extremity transposed cephalic vein to brachial artery arteriovenous fistula with infil tration and bleeding and poor flows Post-Operative Diagnosis: High-grade venous stenosis left upper arm transposed cephalic vein to brachial artery AV fistula in the proximal fistula in the mid fistula Surgery/Procedure Performed:: Left upper extremity fistulogram with 6 x 4 conquest angioplasty multiple sites Description of Surgical Findings:: Timeout informed consent was obtained. 60-year-old gent was taken to the special procedures lab placed on the table. He did not require IV sedation. The left upper semisterilely prepped draped. Under ultrasound guidance local was instilled closer to the arterial anastomosis antegrade with flow. Micropuncture needle inserted micropuncture wire inserted 6 Estonian short sheath inserted using Isovue contrast fistulogram was obtained this demonstrated an area of about 5 cm long in the very proximal portion of the fistula of high-grade irregular stenosis. In the mid curvature of the stenosis there is nearly complete occlusion. There appeared to be good central venous outflow. The patient is already fully anticoagulated with warfarin. A 6 x 4 conquest balloon was placed in the midportion of the fissure was dilated at several different positions up to 35 chula of pressure and held for at least 2 minutes per each insufflation. The balloon was then withdrawn to the proximal portion of the fistula and several different locations were also balloon dilated. The sheath had to be almost completely removed to allow for complete coverage. At the completion there appeared to be complete resolution of the areas of concern with some irregularity still of the vein proximally. The anastomosis appeared to be widely patent on the retrograde injection. The sheath was removed and a new suture of 4-0 nylon was placed. Hemostasis was intact there was a good pulse and thrill at the completion. Images demonstrate a transposed left upper arm cephalic vein to brachial artery AV fistula. There is high-grade irregular stenosis of the proximal portion of the fistula the very proximal 4 cm appears to be patent the anastomosis is patent then the fistula has a 5 cm area of disease. And then in the mid upper arm there is another high-grade area of 90% stenosis. Subsequent to the angioplasty this is resolved. There appears to be good central venous outflow. There is however a right IJ dialysis catheter in place and at the very tip of that catheter there appears to be some relative narrowing of the superior vena cava at that spot. This was not treated on this occasion. Willem Deal M.D., F.A.C.S. Surgeon: Willem Deal Type of Anesthesia: Local
== END 2020-11-06 12:51 | disposition home or self-care (01) ==
LOC: CLSP 09:15
PROVIDERS: PCP Internal Medicine; Visit Provider Surgery
DX: T82.858A Stenosis of other vascular prosthetic devices, implants and grafts, initial encounter (principal); Y83.8 Other surgical procedures as the cause of abnormal reaction of the patient, or of later complication, without mention of misadventure at the time of the procedure; I13.0 Hypertensive heart and chronic kidney disease with heart failure and stage 1 through stage 4 chronic kidney disease, or unspecified chronic kidney disease; E11.22 Type 2 diabetes mellitus with diabetic chronic kidney disease; N18.9 Chronic kidney disease, unspecified; I50.30 Unspecified diastolic (congestive) heart failure; M72.0 Palmar fascial fibromatosis [Dupuytren]; I48.91 Unspecified atrial fibrillation; F32.9 Major depressive disorder, single episode, unspecified; K21.9 Gastro-esophageal reflux disease without esophagitis; E11.51 Type 2 diabetes mellitus with diabetic peripheral angiopathy without gangrene; I27.20 Pulmonary hypertension, unspecified; E78.00 Pure hypercholesterolemia, unspecified; F41.9 Anxiety disorder, unspecified; Z86.2 Personal history of diseases of the blood and blood-forming organs and certain disorders involving the immune mechanism; Z86.718 Personal history of other venous thrombosis and embolism; Z79.4 Long term (current) use of insulin; Z79.01 Long term (current) use of 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; Z79.02 Long term (current) use of antithrombotics/antiplatelets; Z79.899 Other long term (current) drug therapy; Z87.891 Personal history of nicotine dependence
CPT/HCPCS: 36415; 36416; 36902; 76937; 80048; 85027; 85610; Q9967; C1725; C1769

== ENCOUNTER → 2020-12-17 13:51 | Outpatient (CLI) | payer MEDICARE, OTHER, SELFPAY ==
[2020-12-17 14:58] LABS: Hematocrit 33.5 % (40-54); Mean Corp Hgb Conc 32.8 g/dL (32-36); Mean Corpuscular Hgb 33.4 pg (27.0-32.0); Mean Corpuscular Volume 101.8 fL (80-94); Mean Platelet Vol. 10.1 fl (6.2-12.0); Platelet Count 276 K/mm3 (150-450); RBC Distribution Width CV 14.6 % (11.6-14.6); RBC Distribution Width SD 54.4 fl (35.1-43.9); Red Blood Count 3.29 M/mm3 (4.6-6.2); White Blood Count 10.6 K/mm3 (4.4-11.0)
[2020-12-17 15:47] LABS: Anion Gap 13 (5-15); BUN 56 mg/dL (7-18); BUN/Creat Ratio 7.8 RATIO (10-20); Calcium,Total 9.2 mg/dL (8.5-10.1); Chloride 94 mmol/L (98-107); Creatinine, Serum 7.17 mg/dL (0.70-1.30); EST Glomerular Filtration Rate 8 mL/min (>60); Est Glom Filt Rate - Afr Amer 10 mL/min (>60); Glucose 132 mg/dL (74-106); Sodium Level 136 mmol/L (136-145)
== END ==
PROVIDERS: PCP Internal Medicine; Visit Provider Physician Assistant
DX: T82.898A Other specified complication of vascular prosthetic devices, implants and grafts, initial encounter (principal)
CPT/HCPCS: 36415; 80048; 85027

== ENCOUNTER 2020-12-18 08:56 | Day surgery (SDC) | payer MEDICARE, BC, SELFPAY ==
[2020-12-18 07:01] VITALS: BMI 49.3
--- NOTE | 2020-12-18 10:18 | PCM.HP.BLA ---
History and Physical Date of Admission: 12/18/20 Intake Visit Reasons: Access Flow issues Chief Complaint: Recheck fistula left arm Is patient in pain?: No Allergies cephalexin Allergy (Verified 08/19/20 13:54) Hives Penicillins Allergy (Verified 08/19/20 13:54) Hives [facility] Medical History (HFpEF) heart failure with preserved ejection fraction Acute exacerbation of CHF (congestive heart failure) Fsprf-ap-pzpvkap kidney injury Anemia Anxiety Atrial fibrillation Cardiology follow-up encounter Chest pain CHF (congestive heart failure) Chronic 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 Colonization status CPAP (continuous positive airway pressure) dependence Delayed wound healing Depression Dialysis catheter clot or failure Diastolic CHF, acute Dietary restriction DVT (deep venous thrombosis) Edema of left lower leg due to peripheral venous insufficiency Equinus contracture of left ankle Essential hypertension Former smoker Gastric reflux Hammer toe of left foot Hemodialysis patient High cholesterol History of DVT of lower extremity History of edema History of pain when walking History of renal disease History of stress test Hx of echocardiogram Loss of consciousness Loss of hearing Malnutrition Morbid obesity Other specified peripheral vascular diseases Pressure ulcer Pulmonary hypertension Shortness of breath on exertion Skin tear Syncope Transfusion (red blood cell) associated hemochromatosis Trigger finger Type 2 diabetes mellitus with diabetic polyneuropathy Ulcer of left lower extremity with fat layer exposed Wears glasses Surgical History History of arteriovenostomy for renal dialysis (~07/2020) History of carpal tunnel surgery of left wrist History of carpal tunnel surgery of right wrist History of tonsillectomy and adenoidectomy S/P carpal tunnel release S/P tonsillectomy Family History Mother Diabetes Heart disease Hypertension Social History Smoking Status: Former smoker alcohol intake: never HPI HPI HPI: MAREK RAMSAY, is a 60 M who presents to the office today for decreased flow rates and difficulty with cannulation. Patient states since his last fistulogram his fistula has had intermittent difficulty with cannulation. Patient also had stated he was taken off of his Coumadin with the anticipation of having a dental procedure. Patient was having dental pain however this has since resolved. He was going to restart his Coumadin today. Our office received a notification from the dialysis center today noting patient was having continuous issues with cannulating. Patient stated he was only able to dialyze for 2 hours today. He denies pain/discomfort at the fistula site. His most recent intervention was on 11/06/[address] Deal which demonstrated a high-grade venous stenosis left upper arm transposed cephalic vein to brachial artery in the proximal fistula and in mid fistula. A 6 x 4 conquest angioplasty was completed in multiple sites. ROS General General: Yes weight change; No appetite, fatigue, colon cancer, breast cancer or weakness HEENT HEENT: No difficulty swallowing, eye injury, eye surgery, swollen glands or hoarseness Endo Endocrine: Yes diabetes mellitus; No thyroid disease, thyroid cancer, Hair loss, heat intolerance or cold intolerance Skin Skin: No rash or changing moles Musc Musculoskeletal: No back problems, arthritis, rheumatoid arthritis, gout or joint pain Psych Psychiatric: Yes depression; No anxiety or hearing voices Resp Respiratory: No shortness of breath, Yes sleep apnea, No cough, No COPD, No asthma, No emphysema and No wheezing Gastro Gastrointestinal: No abdominal pain, No nausea or vomiting, No diarrhea, No constipation, No blood in stool, No acid reflux, No hemorrhoids, No ulcers, No gallbladder problem and No black,tarry stools Robby Hematologic: Yes blood thinners, No blood disorders, No bleeding, Yes anemia and Yes blood clots Neuro Neurologic: No system reviewed and no additional complaints, except as documented, No as per HPI, No abnormal gait, No abnormal hearing, No abnormal movements, No abnormal speech, No behavioral changes, No burning sensations, No confusion, No convulsions, No disequilibrium, No dizziness, No localized weakness, No frequent falls, No headache(s), No lack of coordination, No loss of vision, No memory loss, Yes numbness, No other visual disturbances, No radicular pain, No restless legs, No sensory deficit, No syncope, Yes tingling, No tremor(s), No weakness and No other Exam Const General: cooperative, healthy appearing, comfortable and no acute distress [facility] Head: normal to inspection Eyes General: appearance normal, both eyes and all related structures Neck Neck: normal visual inspection Neck mass: No Resp Effort & Inspection: normal respiratory effort Auscultation: clear to auscultation bilaterally Cardio Rate: regular rate Rhythm: regular rhythm GI Inspection: normal to inspection Palpation: soft Auscultation: normal bowel sounds Skin General: no rashes or lesions noted Neuro General: no focal motor deficits and CN's II-XI intact bilaterally Extrem General: normal to inspection Other: Left upper extremity fistula- diminished pulse. Thready bruit and thrill. Psych Appearance: grossly normal Affect: normal affect COVID (Procedure Consent) Procedure Criteria Procedure Criteria: Yes Elective The surgeon/proceduralist and patient have discussed in detail the risk of exposure to and/or potential harm posed by the COVID-19 virus with having a surgery/procedure at this time versus the risk of delaying the surgery/procedure. It is not possible to know either the risk of delaying the surgery or procedure or chance of getting an infection with perfect accuracy, but a joint decision was made between the patient and the surgeon/proceduralist to proceed at this time with the scheduled surgery/procedure as indicated on the consent form. Assessment and Plan Assessment and Plan (1) Problem with dialysis access: Status: Acute Qualifiers: Encounter type: initial encounter Qualified Code(s): T82.898A - Other specified complication of vascular prosthetic devices, implants and grafts, initial encounter Orders: Orders: Basic Metabolic Profile (BMP) Today CBC-Complete Blood Cnt No Diff Today Plan - Mary LEAL PARustyC: Dr. Deal will plan to perform an urgent left upper extremity fistulogram tomorrow. Patient had an in office ultrasound which demonstrated a high risk potential of the fistula clotting. Patient's flow rates from the dialysis center have demonstrated a high of 298 within the last month. Procedure details, risks and benefits have been reviewed. Patient has had the opportunity to ask and have questions answered. Patient verbally understands and agrees with the plan. Patient will restart his Coumadin today and continue this for the procedure. I have re-examined the patient. There are no clinical changes since date of exam. Willem Deal M.D., F.A.C.S.
--- NOTE | 2020-12-18 12:20 | PCM.OPRPT ---
Problems Associated Problem List Diagnoses (1) Problem with dialysis access: Report of Operation Date of Procedure: 12/18/20 Pre-Operative Diagnosis: Diminished flow left upper extremity transposed cephalic vein to brachial artery arteriovenous hemodialysis fistula Post-Operative Diagnosis: Multisegmental venous stenosis left upper extremity transposed cephalic vein to brachial artery arteriovenous hemodialysis fistula Surgery/Procedure Performed:: Left upper extremity fistulogram with 7 x 2 cutting balloon angioplasty x4 locations including proximal fistula and mid fistula Description of Surgical Findings:: Timeout and informed consent was obtained. 60-year-old gent was taken to the special procedures lab placed on the table. Because he drove himself no sedative was given. Later in the procedure he was given 900 g clindamycin was thought possibly a stent graft might have to be placed. Antegrade with flow under ultrasound guidance 2% lidocaine was instilled. Micropuncture needle inserted micro puncture wire inserted 6 Mosotho short sheath dilator inserted fistulogram was obtained using Isovue this demonstrated an area of 99% stenosis in the fistula approximately 10 cm from the anastomosis. There was an additional area in the mid to more distal fistula of high-grade 90% stenosis and then additional area slightly more distal in the arm. The patient received 5000 Ancef heparin. An SV 5 wire was placed. A 7 x 2 cutting balloon was used to treat 3 separate areas. In the more distal part of the fistula was in the more proximal upper arm that responded very well to the 2 areas of angioplasty. The area that was at about 10 cm from the arterial anastomosis demonstrated a leak after treatment. So then I used ultrasound to gain access to the fistula in the proximal left upper arm retrograde with flow. Again local was instilled micropuncture needle micropuncture wire then and 8 Mosotho sheath dilator was inserted. Multiple times I tried to use a 4 Mosotho angled glide cath gain access past the proximal she could not do it. Finally I left the SV [address] and used a [id number] suture of 4-0 nylon to close the 7 Mosotho sheath site which was removed. Was able then to get a guidewire into the brachial artery put a 4 Mosotho glide cath and shot a fistulogram at that point this demonstrated the leak that we are trying to address and resolve. There was clinically significant stenosis of the proximal portion of fistula and that also was treated with a 7 x 2 cutting balloon. Completion study demonstrated now resolution of the 4 areas of stenosis. No evidence of ongoing leak. Good central venous outflow. He tolerated the procedure amazingly well. Fistulogram demonstrated a transposed cephalic vein to brachial artery AV fistula. There is clinically significant 80% stenosis of the proximal portion of the fistula about 2 cm from the anastomosis. 10 cm from the anastomosis there is a 90% area of stenosis. MD more mid to distal fistula in the proximal upper arm there are 2 additional areas of stenosis 1 being 90% and the other approximately 70%. All of these responded well to the 7 x 2 cutting balloon angioplasty. The patient was taken to recovery room in satisfactory addition. There is a good pulse thrill and bruit within the fistula at the completion. Willem Deal M.D., F.A.C.S. Surgeon: Willem Deal Type of Anesthesia: Local
== END 2020-12-18 13:59 | disposition home or self-care (01) ==
PROVIDERS: PCP Internal Medicine; Referring Provider Surgery; Visit Provider Surgery
DX: T82.858A Stenosis of other vascular prosthetic devices, implants and grafts, initial encounter (principal); I13.0 Hypertensive heart and chronic kidney disease with heart failure and stage 1 through stage 4 chronic kidney disease, or unspecified chronic kidney disease; E11.22 Type 2 diabetes mellitus with diabetic chronic kidney disease; N18.9 Chronic kidney disease, unspecified; I50.9 Heart failure, unspecified; F41.9 Anxiety disorder, unspecified; I48.91 Unspecified atrial fibrillation; F32.A Depression, unspecified; K21.9 Gastro-esophageal reflux disease without esophagitis; E78.00 Pure hypercholesterolemia, unspecified; I27.20 Pulmonary hypertension, unspecified; E11.51 Type 2 diabetes mellitus with diabetic peripheral angiopathy without gangrene; E11.42 Type 2 diabetes mellitus with diabetic polyneuropathy; Z86.718 Personal history of other venous thrombosis and embolism; Z79.01 Long term (current) use of 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; Z79.899 Other long term (current) drug therapy; Z87.891 Personal history of nicotine dependence
CPT/HCPCS: 36902; 76937; Q9967; C1769; C1894

== ENCOUNTER → 2021-02-01 | Outpatient (CLI) | payer BC, SELFPAY | END | disposition home or self-care (01) | PROVIDERS: Referring Provider Student in an Organized Health Care Education/Training Program; Visit Provider Student in an Organized Health Care Education/Training Program | DX: L03.012 Cellulitis of left finger (principal) | CPT/HCPCS: 87070; 87075; 87077; 87186; 87205 ==

== ENCOUNTER 2021-02-24 13:40 | Outpatient (CLI) | payer MEDICARE, SELFPAY ==
[2021-02-24 14:08] LABS: Absolute Lymphocyte Count 2.19 X10^3/uL (0.83-4.51); Absolute Neutrophil Count 5.6 X10^3/uL (2.0-7.7); Basophil# 0.02 X10^3/uL; Basophil% 0.2 % (0-1); Eosinophil# 0.18 X10^3/uL; Hematocrit 33.2 % (40-54); Hemoglobin 11.2 g/dL (13.0-16.5); Lymphocyte # 2.19 X10^3/ul (0.83-4.51); Lymphocyte % 24.9 % (19-41); Mean Corp Hgb Conc 33.7 g/dL (32-36); Mean Corpuscular Hgb 33.2 pg (27.0-32.0); Mean Corpuscular Volume 98.5 fL (80-94); Mean Platelet Vol. 9.9 fl (6.2-12.0); Monocyte# 0.76 X10^3/uL; Monocyte% 8.6 % (0-10); NRBC Flagged by Analyzer 0 % (0-5); Neutrophil # 5.61 X10^3/uL (2.7-7.7); Platelet Count 229 K/mm3 (150-450); RBC Distribution Width CV 13.2 % (11.6-14.6); RBC Distribution Width SD 47.9 fl (35.1-43.9); Red Blood Count 3.37 M/mm3 (4.6-6.2); White Blood Count 8.8 K/mm3 (4.4-11.0)
[2021-02-24 14:39] LABS: Anion Gap 11 (5-15); BUN 75 mg/dL (7-18); BUN/Creat Ratio 10.1 RATIO (10-20); Calcium,Total 9.4 mg/dL (8.5-10.1); Chloride 96 mmol/L (98-107); Creatinine, Serum 7.42 mg/dL (0.70-1.30); EST Glomerular Filtration Rate 8 mL/min (>60); Est Glom Filt Rate - Afr Amer 10 mL/min (>60); Glucose 272 mg/dL (74-106); Potassium 4.8 mmol/L (3.5-5.1); Sodium Level 135 mmol/L (136-145)
== END 2021-02-24 23:59 | disposition short-term general hospital (02) ==
LOC: PAVLAB 13:43
PROVIDERS: PCP Internal Medicine; Referring Provider Physician Assistant; Visit Provider Physician Assistant
DX: T82.898A Other specified complication of vascular prosthetic devices, implants and grafts, initial encounter (principal); N17.9 Acute kidney failure, unspecified; N18.9 Chronic kidney disease, unspecified
CPT/HCPCS: 36415; 80048; 85025

== ENCOUNTER 2021-03-06 06:22 | Emergency (ER) | payer MEDICARE, SELFPAY ==
[2021-03-06 06:23] VITALS: BP 216/84; PULSE 113; RESP 19; TEMP 37.1; O2SAT 100; BMI 47.8
[2021-03-06 06:35] VITALS: BP 197/183; PULSE 113; RESP 21; TEMP 36.9; O2SAT 100
--- NOTE | 2021-03-06 06:42 | EKG12_ITS ---
Test Reason : GENERAL Blood Pressure : / mmHG Vent. Rate : 125 BPM Atrial Rate : 258 BPM P-R Int : 000 ms QRS Dur : 080 ms QT Int : 346 ms P-R-T Axes : 000 051 025 degrees QTc Int : 499 ms Atrial fibrillation Low voltage QRS Abnormal ECG Confirmed by LIZZY HARVEY, BRIANNA ([id number]), film editor supervisor KARRI AMIN ([id number]) on 03/08/2021 11:17:32 AM Referred By: QIAN Confirmed By:BRIANNA BALL MD
--- NOTE | 2021-03-06 06:42 | RAD_ITS ---
STUDY: X-RAY CHEST REASON FOR EXAM: Male, 60 years old. cough TECHNIQUE: Single AP portable view of the chest. COMPARISON: 05/25/2020 FINDINGS: Interval placement of right internal jugular temporal dialysis catheter with tip the catheter overlying the superior vena cava and no pneumothorax. The lungs are clear and expanded. There is no demonstrated pleural abnormality. Normal size heart. Normal mediastinum and sachi. Normal visualized pulmonary arteries. Normal visualized aortic arch and descending thoracic aorta. Normal visualized thoracic spine. Normal visualized ribs, clavicles, and shoulders. There is no demonstrated abnormality of the visualized soft tissue structures of the upper abdomen. RAD/Chest 1 View (Portable) IMPRESSION: 1. Interval placement of right internal jugular dialysis catheter with tip the catheter overlying the spur vena cava and no pneumothorax. 2. No active pulmonary disease. Electronically Signed: New Tapia MD at 7:15 EST Tel , Service support ,
--- NOTE | 2021-03-06 06:44 | EDS_ITS ---
HPI History of Present Illness Chief Complaint: General Illness Narrative Narrative: Patient is a 60-year-old male with past medical history of diabetes as well as chronic kidney failure on dialysis Monday and Monday. He states he started feeling bad approximately 7 days ago. He describes as bad sensation as generalized fatigue and weakness with mild congestion and cough. He states he went to dialysis on Monday and as he is instructed. However over the last 1 to 2 days has had such increased fatigue that he cannot get around his house without falling because of his increased weakness. He states that today he was concerned as he did not feel safe at home because of the persistent weakness and his recent COVID diagnosis and therefore decided not to go to dialysis but to come to the hospital for evaluation. [facility] Medical History (HFpEF) heart failure with preserved ejection fraction Acute exacerbation of CHF (congestive heart failure) [id number] kidney injury Anemia Anxiety Atrial fibrillation Cardiology follow-up encounter Chest pain CHF (congestive heart failure) Chronic 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 Colonization status Congestive heart failure (CHF) Coronary artery disease CPAP (continuous positive airway pressure) dependence Delayed wound healing Depression Dialysis catheter clot or failure Diastolic CHF, acute Dietary restriction DVT (deep venous thrombosis) Edema of left lower leg due to peripheral venous insufficiency Equinus contracture of left ankle Essential hypertension Former smoker Gastric reflux Hammer toe of left foot Hemodialysis patient High cholesterol History of DVT of lower extremity History of edema History of pain when walking History of renal disease History of stress test Hx of echocardiogram Loss of consciousness Loss of hearing Malnutrition Morbid obesity Other specified peripheral vascular diseases Pressure ulcer Pulmonary hypertension Shortness of breath on exertion Skin tear Syncope Transfusion (red blood cell) associated hemochromatosis Trigger finger Type 2 diabetes mellitus with diabetic polyneuropathy Ulcer of left lower extremity with fat layer exposed Wears glasses Home Medications ascorbic acid (vitamin C) [Vitamin C] 1,000 mg PO DAILY 12/02/16 [History Last Taken Unknown] buspirone 10 mg PO BID 12/02/16 [History Last Taken 07/22/20] dicyclomine 20 mg PO TID 12/02/16 [History Last Taken Unknown] venlafaxine [Effexor XR] 150 mg PO DAILY 12/02/16 [History Last Taken Unknown] atorvastatin 40 mg PO DAILY 05/23/20 [History Last Taken 07/22/20] insulin NPH isoph U-100 human [Humulin N NPH Insulin KwikPen] 12 units SQ QHS 05/23/20 [History Last Taken Unknown] pyridoxine (vitamin B6) 100 mg PO DAILY 05/23/20 [History Last Taken Unknown] B complex with C 20-folic acid 1 capsule PO DAILY #30 capsule 06/01/20 [Rx Last Taken Unknown] pantoprazole 40 mg PO DAILY #30 tablet 06/01/20 [Rx Last Taken 07/22/20] warfarin 12.5 mg PO DINNER #0 06/01/20 [Rx Last Taken 07/18/20] gabapentin [Neurontin] 600 mg PO BID 06/13/20 [History Last Taken 07/22/20] calcium acetate(phosphat bind) 667 mg PO TID 07/15/20 [History Last Taken Unknown] simethicone [Gas Relief (simethicone)] 80 mg PO TIDPC 03/06/21 [History Last Taken Unknown] Allergy/AdvReac Type Severity Reaction Status Date / Time cephalexin Allergy Hives Verified 02/24/21 13:09 Penicillins Allergy Hives Verified 02/24/21 13:09 Family History Mother Diabetes Heart disease Hypertension Surgical History History of arteriovenostomy for renal dialysis (~07/2020) History of carpal tunnel surgery of left wrist History of carpal tunnel surgery of right wrist History of tonsillectomy and adenoidectomy S/P carpal tunnel release S/P tonsillectomy Social History Smoking Status: Former smoker alcohol intake: never ROS ROS ED Constitutional Constitutional ED: Denies chills or fever(s) Eyes Eyes: Denies change in vision ENT ENT ED: Reports rhinorrhea; Denies sore throat Cardiovascular Cardiovascular: Reports palpitations; Denies chest pain Respiratory/Chest Respiratory/Chest: Reports cough; Denies dyspnea Gastrointestinal Gastrointestinal: Denies abdominal pain, diarrhea, nausea or vomiting Musculoskeletal Musculoskeletal: Reports myalgias Integumentary Denies rash Neurologic Neurologic: Reports weakness; Denies headache(s) Hematologic/Lymphatic Hematologic/Lymphatic: Reports easy bleeding and easy bruising EXAM Physical Exam Const Vital Signs: 03/06/21 06:23 03/06/21 06:35 Temperature 98.8 F 98.5 F Temperature Source Temporal Temporal Pulse Rate 113 H 113 H Respiratory Rate 19 H 21 H Blood Pressure 216/84 H 197/183 H Blood Pressure Mean 128 187 Pulse Ox 100 100 Oxygen Delivery Method Room Air Room Air Positive well nourished, well developed and obese General Appearance ED: well developed Nutritional Appearance: obese HEENT Reports dry mucous membranes HEENT Narrative: Cobblestoning noted in the posterior pharynx consistent with sinus drainage but no airway edema or compromise. Mouth ED: Yes dry mucous membranes Mouth: dry mucous membranes Eyes PERRL and EOMs intact bilaterally Neck supple and no JVD Neck Narrative: Positive anterior cervical lymphadenopathy noted Resp Resp Narrative: Breath sounds are diminished throughout but overall clear to auscultation with mild tachypnea noted. Cardio Rate: other Other Details: Irregularly irregular rhythm with tachycardic rate consistent past medical history of atrial fibrillation. GI non-tender, non-distended and no masses GI Narrative: Abdomen is soft nontender and nondistended with hyperactive bowel sounds. No voluntary guarding or rigidity no pulsatile mass. Palpation: soft Extremity Extremity Narrative: Patient has chronic stasis changes to the bilateral lower legs. No edema noted. Neuro oriented x3 and CN's II-XII intact bilaterally Neuro Narrative: Patient is awake alert and oriented to person place and time. Cranial nerves II through XII are grossly intact. No focal neurologic deficit noted. No pronator drift no dysmetria no truncal ataxia. NIH stroke scale score of 0. Sensorium / Orientation: alert Motor Exam: strength 5/5 throughout Psych Psych Narrative: Patient has a nervous/anxious affect Skin Skin Narrative: Chronic stasis changes to the bilateral lower legs but no soft tissue changes to suggest overt infection MDM MDM MDM Narrative Medical decision making narrative: Patient presented to the ER tachycardic and hypertensive but has not been taking any of his medications. He is slightly tachypneic at a rate of 24 but otherwise is satting 100% on room air. Patient reports a outpatient COVID test which I do not have access to and therefore will repeat another one at this time. Patient does not require admission to the hospital because of hypoxia but he is stating he is too weak to get around his house and care for himself. Therefore we will work the patient up because he does have chronic medical conditions such as diabetes renal failure heart disease. However if the sole cause of his symptoms is related to the COVID then he will be ambulated and if he cannot walk we will discuss placement at a [facility] to help with his activities of daily living and his generalized weakness. Lab Data Labs: Laboratory Results - last 24 hr 03/06/21 03/06/21 06:48 06:48 WBC 8.8 RBC 3.51 L Hgb 11.7 L Hct 34.5 L MCV 98.3 H MCH 33.3 H MCHC 33.9 RDW Std Deviation 48.3 H RDW Coeff of Kassandra 13.5 Plt Count 166 MPV 11.0 Immature Gran % (Auto) 0.700 Neut % (Auto) 75.7 H Lymph % (Auto) 11.4 L [place] % (Auto) 9.2 Eos % (Auto) 2.8 Baso % (Auto) 0.2 Absolute Neuts (auto) 6.7 Absolute Lymphs (auto) 1.01 Nucleated RBC % 0 PT 13.3 INR 1.1 APTT 28.6 Discharge Plan Triage Chief Complaint: General Illness ED Provider: Joesph Machado Dx/Rx/DC Orders Clinical Impression: Generalized weakness, Chronic kidney failure, Atrial fibrillation with rapid ventricular response Prescriptions: No Action ascorbic acid (vitamin C) [Vitamin C] 1,000 MG tablet 1,000 mg PO DAILY RF: 0 venlafaxine [Effexor XR] 150 MG capsule 150 mg PO DAILY RF: 0 dicyclomine 20 MG tablet 20 mg PO TID RF: 0 buspirone 10 MG tablet 10 mg PO BID RF: 0 atorvastatin 40 MG tablet 40 mg PO DAILY RF: 0 pyridoxine (vitamin B6) 100 MG tablet 100 mg PO DAILY RF: 0 Humulin N NPH Insulin KwikPen 100 UNIT/ML insulin pen 12 units SQ QHS RF: 0 pantoprazole 40 MG tablet 40 mg PO DAILY Qty: 30 RF: 0 B complex with C 20-folic acid 1 CAPSULE capsule 1 capsule PO DAILY Qty: 30 RF: 0 warfarin 5 MG tablet 12.5 mg PO DINNER Qty: 0 RF: 0 gabapentin [Neurontin] 100 MG capsule 600 mg PO BID RF: 0 calcium acetate(phosphat bind) 667 mg Capsule 667 mg PO TID RF: 0 simethicone [Gas Relief (simethicone)] 80 MG tablet,chewable 80 mg PO TIDPC RF: 0 Primary Care Provider: Yola Ng Referrals: Yola Ng MD [Primary Care Provider] -
[2021-03-06 06:53] LABS: Absolute Lymphocyte Count 1.01 X10^3/uL (0.83-4.51); Absolute Neutrophil Count 6.7 X10^3/uL (2.0-7.7); Basophil# 0.02 X10^3/uL; Basophil% 0.2 % (0-1); Eosinophil# 0.25 X10^3/uL; Eosinophils% 2.8 % (0-5); Hematocrit 34.5 % (40-54); Hemoglobin 11.7 g/dL (13.0-16.5); Lymphocyte # 1.01 X10^3/ul (0.83-4.51); Lymphocyte % 11.4 % (19-41); Mean Corp Hgb Conc 33.9 g/dL (32-36); Mean Corpuscular Hgb 33.3 pg (27.0-32.0); Mean Corpuscular Volume 98.3 fL (80-94); Monocyte# 0.81 X10^3/uL; Monocyte% 9.2 % (0-10); NRBC Flagged by Analyzer 0 % (0-5); Neutrophil # 6.68 X10^3/uL (2.7-7.7); Neutrophil % 75.7 % (47-70); Platelet Count 166 K/mm3 (150-450); RBC Distribution Width CV 13.5 % (11.6-14.6); RBC Distribution Width SD 48.3 fl (35.1-43.9); Red Blood Count 3.51 M/mm3 (4.6-6.2); White Blood Count 8.8 K/mm3 (4.4-11.0)
[2021-03-06 07:02] LABS: International Normalized Ratio 1.1; Prothrombin Time (Protime)PT. 13.3 SECONDS (11.7-14.9)
[2021-03-06 07:03] LABS: Partial Thromboplast Time 28.6 Seconds (24.1-36.2)
[2021-03-06 07:14] VITALS: BP 161/67; PULSE 125; RESP 19; O2SAT 100
[2021-03-06 07:15] LABS: Anion Gap 15 (5-15); BUN 46 mg/dL (7-18); BUN/Creat Ratio 5.1 RATIO (10-20); Chloride 94 mmol/L (98-107); Creatinine, Serum 9.06 mg/dL (0.70-1.30); EST Glomerular Filtration Rate 6 mL/min (>60); Est Glom Filt Rate - Afr Amer 8 mL/min (>60); Estimated Creatinine Clearance 8.78 ml/min; Glucose 176 mg/dL (74-106); Magnesium 2.4 mg/dL (1.6-2.6); Phosphorus 4.1 mg/dL (2.5-4.9); Potassium 4.9 mmol/L (3.5-5.1); Sodium Level 132 mmol/L (136-145)
[2021-03-06] MEDS: Metoprolol Tartrate 5 MG/5 ML Vial IV (07:15)
[2021-03-06 07:18] VITALS: BP 166/89; PULSE 97; RESP 21; O2SAT 100
[2021-03-06 07:46] VITALS: PULSE 88
[2021-03-06] MEDS: Enoxaparin 150 MG/ML Syringe SC (08:15)
[2021-03-06 08:16] LABS: Troponin-I HS 17 pg/mL (3.0-78.0)
[2021-03-06 08:53] VITALS: BP 114/76; PULSE 88; RESP 14; O2SAT 96
== END 2021-03-06 08:58 | disposition home or self-care (01) ==
PROVIDERS: Emergency Medicine; Emergency Provider Student in an Organized Health Care Education/Training Program; PCP Internal Medicine; Visit Provider Student in an Organized Health Care Education/Training Program
DX: R53.83 Other fatigue (principal); Z99.2 Dependence on renal dialysis; E11.22 Type 2 diabetes mellitus with diabetic chronic kidney disease; E11.42 Type 2 diabetes mellitus with diabetic polyneuropathy; I48.91 Unspecified atrial fibrillation; Z79.4 Long term (current) use of insulin; N18.9 Chronic kidney disease, unspecified; E78.00 Pure hypercholesterolemia, unspecified; I25.10 Atherosclerotic heart disease of native coronary artery without angina pectoris; E66.9 Obesity, unspecified; Z87.891 Personal history of nicotine dependence; Z86.718 Personal history of other venous thrombosis and embolism; Z79.899 Other long term (current) drug therapy
CPT/HCPCS: 99284; 71045; 80048; 83735; 84100; 84484; 85025; 85610; 85730; 87426; 93005; A4216

== ENCOUNTER 2021-03-07 10:17 | Inpatient (IN) | payer MEDICARE, SELFPAY ==
[2021-03-07] VITALS (7 sets, daily range): BP systolic 89–178; BP diastolic 51–157; PULSE 91–124; RESP 14–20; TEMP 36.1–37.5; O2SAT 97–100; BMI 48.6; BMI 46.7
--- NOTE | 2021-03-07 10:38 | CT_ITS ---
STUDY: CT BRAIN WITHOUT CONTRAST REASON FOR EXAM: Male, 60 years old. Head injury RADIATION DOSAGE (If Supplied By Facility): CTDIvol = ( 44.99 ) mGy, DLP = ( 964.84 ) mGycm TECHNIQUE: Transaxial CT imaging of the brain was performed without administration of intravenous contrast material. Individualized dose optimization techniques were used for this CT. COMPARISON: No relevant priors. FINDINGS: Normal soft tissue structures. Normal calvarium. Mild prominence of ventricles and cortical sulci for the patient''s age. Normal white matter tracts of the cerebral hemispheres. Normal basal ganglia and thalami. Normal brainstem. Normal cerebellum. There is no intracranial hemorrhage. There are no findings of an acute ischemic infarction. Atherosclerotic calcifications of the cavernous internal carotid arteries. Normal visualized paranasal sinuses. CT/Brain/Head without Contrast IMPRESSION: No acute intracranial process. Electronically Signed: Nate Bobby, at 11:13 EST Tel , Service support ,
--- NOTE | 2021-03-07 10:38 | EX.ED.DYSGE1 ---
HPI History of Present Illness Chief Complaint: General Illness Narrative Narrative: 60-year-old male with type 2 diabetes, CKD on dialysis, CHF, atrial fibrillation presenting with generalized weakness. Patient states he is 6 days from being diagnosed with COVID 19. Patient states he was tested at his doctor's office. He was not referred for monoclonal antibodies. Patient reported his previous visit that he had fallen a couple of times and felt unsafe. This is why he missed his dialysis previously on his visit. When he presented he was in A. fib RVR but he was given medication and his heart rate slowed down. His work-up was ultimately normal other than an on therapeutic INR. Patient was given Lovenox for this. Since he was otherwise stable he was able to call his dialysis center which is currently in [place] because this is the only place will take a COVID-patient for dialysis and get a later time. Patient states he was able to drive there and drive home and did not have any difficulty. He states that he felt very tired and slept. He states that he cannot recall when he took his last medications or had his last meal. Patient states that on his fall the other day he did hit his head and has a superficial abrasion on the left upper scalp. He has not hit his head since then. He did fall again and has a contusion/abrasion on the left buttocks. Patient was able to ambulate at home and get into his car and drive here. He is not having any chest pain. He is concerned there is something else wrong besides having COVID-19. [facility] Medical History (HFpEF) heart failure with preserved ejection fraction Acute exacerbation of CHF (congestive heart failure) [id number] kidney injury Anemia Anxiety Atrial fibrillation Cardiology follow-up encounter Chest pain CHF (congestive heart failure) Chronic 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 Colonization status Congestive heart failure (CHF) Coronary artery disease CPAP (continuous positive airway pressure) dependence Delayed wound healing Depression Dialysis catheter clot or failure Diastolic CHF, acute Dietary restriction DVT (deep venous thrombosis) Edema of left lower leg due to peripheral venous insufficiency Equinus contracture of left ankle Essential hypertension Former smoker Gastric reflux Hammer toe of left foot Hemodialysis patient High cholesterol History of DVT of lower extremity History of edema History of pain when walking History of renal disease History of stress test Hx of echocardiogram Loss of consciousness Loss of hearing Malnutrition Morbid obesity Other specified peripheral vascular diseases Pressure ulcer Pulmonary hypertension Shortness of breath on exertion Skin tear Syncope Transfusion (red blood cell) associated hemochromatosis Trigger finger Type 2 diabetes mellitus with diabetic polyneuropathy Ulcer of left lower extremity with fat layer exposed Wears glasses Home Medications ascorbic acid (vitamin C) [Vitamin C] 1,000 mg PO DAILY 12/02/16 [History Last Taken Unknown] buspirone 10 mg PO BID 12/02/16 [History Last Taken 07/22/20] dicyclomine 20 mg PO TID 12/02/16 [History Last Taken Unknown] venlafaxine [Effexor XR] 150 mg PO DAILY 12/02/16 [History Last Taken Unknown] atorvastatin 40 mg PO DAILY 05/23/20 [History Last Taken 07/22/20] insulin NPH isoph U-100 human [Humulin N NPH Insulin KwikPen] 12 units SQ QHS 05/23/20 [History Last Taken Unknown] pyridoxine (vitamin B6) 100 mg PO DAILY 05/23/20 [History Last Taken Unknown] B complex with C 20-folic acid 1 capsule PO DAILY #30 capsule 06/01/20 [Rx Last Taken Unknown] warfarin 12.5 mg PO DINNER #0 06/01/20 [Rx Last Taken 07/18/20] gabapentin [Neurontin] 800 mg PO BID 06/13/20 [History Last Taken 07/22/20] simethicone [Gas Relief (simethicone)] 80 mg PO TIDPC 03/06/21 [History Last Taken Unknown] calcium acetate(phosphat bind) 2,001 mg PO TIDCM 03/07/21 [History Last Taken Unknown] clopidogrel 75 mg PO DAILY 03/07/21 [History Last Taken Unknown] furosemide 40 mg PO DAILY 03/07/21 [History Last Taken Unknown] glipizide 5 mg PO TID 03/07/21 [History Last Taken Unknown] nifedipine 90 mg PO QHS 03/07/21 [History Last Taken Unknown] Allergy/AdvReac Type Severity Reaction Status Date / Time cephalexin Allergy Hives Verified 03/07/21 10:19 Penicillins Allergy Hives Verified 03/07/21 10:19 Family History Mother Diabetes Heart disease Hypertension Surgical History History of arteriovenostomy for renal dialysis (~07/2020) History of carpal tunnel surgery of left wrist History of carpal tunnel surgery of right wrist History of tonsillectomy and adenoidectomy S/P carpal tunnel release S/P tonsillectomy Social History Smoking Status: Former smoker alcohol intake: never ROS ROS ED Constitutional Constitutional ED: Denies chills or fever(s) Eyes Eyes: Denies blurry vision ENT ENT ED: Denies rhinorrhea Cardiovascular Cardiovascular: Denies chest pain Respiratory/Chest Respiratory/Chest: Reports cough and dyspnea Gastrointestinal Gastrointestinal: Denies abdominal pain, nausea or vomiting Genitourinary Genitourinary ED: Denies dysuria or hematuria Musculoskeletal Musculoskeletal: Reports other Details: Left gluteal pain. Integumentary Reports other Details: Abrasion to the left gluteal region. Neurologic Neurologic: Denies headache(s) or paresthesias EXAM Physical Exam Const Vital Signs: 03/07/21 10:19 03/07/21 10:49 03/07/21 10:50 Temperature 96.9 F L Temperature Source Temporal Pulse Rate 96 112 H Pulse Rate [Lying] Pulse Rate [Sitting] Pulse Rate [Standing] Respiratory Rate 20 H 16 Respiratory Effort Normal Non-Labored Respiratory Pattern Normal Blood Pressure 178/157 H 123/95 H Blood Pressure [Lying] Blood Pressure [Sitting] Blood Pressure [Standing] Blood Pressure Mean 164 104 Blood Pressure Mean [Lying] Blood Pressure Mean [Sitting] Blood Pressure Mean [Standing] Pulse Ox 100 100 Oxygen Delivery Method Room Air Room Air 03/07/21 11:16 03/07/21 12:22 Temperature 97.1 F L Temperature Source Temporal Pulse Rate 113 H Pulse Rate [Lying] 108 H Pulse Rate [Sitting] 117 H Pulse Rate [Standing] 124 H Respiratory Rate 14 Respiratory Effort Respiratory Pattern Blood Pressure 124/66 H Blood Pressure [Lying] 109/69 Blood Pressure [Sitting] 123/66 H Blood Pressure [Standing] 89/51 L Blood Pressure Mean 85 Blood Pressure Mean [Lying] 82 Blood Pressure Mean [Sitting] 85 Blood Pressure Mean [Standing] 63 Pulse Ox 100 Oxygen Delivery Method Room Air Positive obese General Appearance ED: NAD Nutritional Appearance: obese HEENT Denies moist mucous membranes Negative for trauma Eyes PERRL and EOMs intact bilaterally Neck no lymphadenopathy and supple General: Negative for tenderness Chest Wall Negative for inspection of chest normal or palpation of chest normal Resp normal respiratory effort and clear to auscultation bilaterally Neuro oriented x3 and CN's II-XII intact bilaterally Sensorium / Orientation: alert Psych mental status grossly normal Skin Skin Narrative: Linear superficial abrasion approximately 10 cm on the left buttocks laterally. This is not a deep laceration. Bleeding is well controlled. Superficial abrasion to the left upper scalp. MDM MDM MDM Narrative Medical decision making narrative: Patient presenting for the second time in 2 days for generalized weakness. He has stating that he is having episodes of syncope when he stands. This is counterintuitive as he can drive all the way to [place] to get dialysis but is having trouble walking. His syncope all happened at home and did not happen while going to dialysis. He states he had only a partial dialysis yesterday. It is unclear why this is. Patient states that he is not having any chest pain or shortness of breath he is just generally weak and he is stating that he cannot recall the last time he ate or took his meds. Patient does have some injury to the left gluteal region which is superficial. Patient also has some evidence of a contusion to the scalp. He had a CT of the brain which was negative for acute intracranial findings. Chest x-ray on my interpretation shows no acute cardiopulmonary process. EKG is atrial fibrillation at 190 bpm. After the EKG is performed I went back to the room and his heart rate is in the 90s. He did not require any medication for this. His INR was subtherapeutic once again. Patient cannot recall when he took his Coumadin last. CBC unremarkable. Creatinine is only slightly decreased from 9.06-8.06 today. Electrolytes are unremarkable. LFTs are also unremarkable. Given patient's concern for falling I did check orthostatic vital signs and the patient is orthostatic. Since he does not feel safe at home and he has been back twice in 2 days I will have him admitted to the hospitalist for placement into [facility]. Impression: 1. COVID-19 2. Generalized weakness 3. Orthostatic hypotension 4. Closed head injury 5. Left gluteal abrasion 6. End-stage renal disease on dialysis 7. Medical noncompliance Lab Data Attestation: I reviewed the patient's lab results. Labs: Laboratory Results - last 24 hr 03/07/21 03/07/21 03/07/21 10:45 10:45 10:45 WBC 6.3 RBC 3.62 L Hgb 11.9 L Hct 35.0 L MCV 96.7 H MCH 32.9 H MCHC 34.0 RDW Std Deviation 48.4 H RDW Coeff of Kassandra 13.4 Plt Count 179 MPV 10.8 Immature Gran % (Auto) 0.600 Neut % (Auto) 64.9 Lymph % (Auto) 20.4 Rock % (Auto) 12.5 H Eos % (Auto) 1.4 Baso % (Auto) 0.2 Absolute Neuts (auto) 4.1 Absolute Lymphs (auto) 1.29 Nucleated RBC % 0 PT 13.2 INR 1.1 Sodium 134 L Potassium 3.6 Chloride 90 L Carbon Dioxide 27.0 Anion Gap 17 H BUN 38 H Creatinine 8.06 H* Estim Creat Clear Calc 9.55 Est GFR (MDRD) Af Amer 9 L Est GFR (MDRD) Non-Af 7 L BUN/Creatinine Ratio 4.7 L Glucose 130 H Calcium 8.3 L Total Bilirubin 0.60 AST 45 H ALT 41 Alkaline Phosphatase 68 Troponin I High Sens 28 Total Protein 8.2 Albumin 3.3 Globulin 4.9 H Albumin/Globulin Ratio 0.7 L Radiography Diagnostic Testing: Clinical Impression(s) from Imaging Studies Brain CT 03/07/21 10:38 IMPRESSION: No acute intracranial process. Electronically Signed: Nate Bobby, at 11:13 EST Tel , Service support , Chest X-Ray 03/07/21 10:45 IMPRESSION: No active pulmonary disease. Electronically Signed: Nate Bobby, at 11:11 EST Tel , Service support , Discharge Plan Disposition Disposition: Acute Care [facility] Discharge Date/Time: 03/07/21 14:03
--- NOTE | 2021-03-07 10:45 | RAD_ITS ---
STUDY: X-RAY CHEST REASON FOR EXAM: Male, 60 years old. Cough. TECHNIQUE: Single AP portable view of the chest. COMPARISON: 03/06/2021. FINDINGS: Right internal jugular temporary dialysis catheter is stable position. The lungs are clear and expanded. There is no demonstrated pleural abnormality. Normal size heart. Normal mediastinum and sachi. Normal visualized pulmonary arteries. Normal visualized aortic arch and descending thoracic aorta. No demonstrated acute osseous changes. There is no demonstrated abnormality of the visualized soft tissue structures of the upper abdomen. RAD/Chest 1 View (Portable) IMPRESSION: No active pulmonary disease. Electronically Signed: Nate Bobby, at 11:11 EST Tel , Service support ,
[2021-03-07 10:59] LABS: Absolute Lymphocyte Count 1.29 X10^3/uL (0.83-4.51); Absolute Neutrophil Count 4.1 X10^3/uL (2.0-7.7); Basophil# 0.01 X10^3/uL; Basophil% 0.2 % (0-1); Eosinophil# 0.09 X10^3/uL; Eosinophils% 1.4 % (0-5); Hemoglobin 11.9 g/dL (13.0-16.5); Lymphocyte # 1.29 X10^3/ul (0.83-4.51); Lymphocyte % 20.4 % (19-41); Mean Corpuscular Hgb 32.9 pg (27.0-32.0); Mean Corpuscular Volume 96.7 fL (80-94); Mean Platelet Vol. 10.8 fl (6.2-12.0); Monocyte# 0.79 X10^3/uL; Monocyte% 12.5 % (0-10); NRBC Flagged by Analyzer 0 % (0-5); Neutrophil # 4.09 X10^3/uL (2.7-7.7); Neutrophil % 64.9 % (47-70); Platelet Count 179 K/mm3 (150-450); RBC Distribution Width CV 13.4 % (11.6-14.6); RBC Distribution Width SD 48.4 fl (35.1-43.9); Red Blood Count 3.62 M/mm3 (4.6-6.2); White Blood Count 6.3 K/mm3 (4.4-11.0)
[2021-03-07 11:11] LABS: International Normalized Ratio 1.1; Prothrombin Time (Protime)PT. 13.2 SECONDS (11.7-14.9)
[2021-03-07 11:17] LABS: ALB/GLOB Ratio 0.7 RATIO (0.9-2.4); AST(SGOT) 45 U/L (15-37); Alanine Aminotransfer ALT/SGPT 41 U/L (16-61); Albumin, Serum 3.3 g/dL (3.2-5.0); Alkaline Phosphatase 68 U/L (45-117); Anion Gap 17 (5-15); BUN 38 mg/dL (7-18); BUN/Creat Ratio 4.7 RATIO (10-20); Calcium,Total 8.3 mg/dL (8.5-10.1); Chloride 90 mmol/L (98-107); Creatinine, Serum 8.06 mg/dL (0.70-1.30); EST Glomerular Filtration Rate 7 mL/min (>60); Est Glom Filt Rate - Afr Amer 9 mL/min (>60); Estimated Creatinine Clearance 9.55 ml/min; Globulin 4.9 g/dL (2.2-4.2); Glucose 130 mg/dL (74-106); Potassium 3.6 mmol/L (3.5-5.1); Protein, Total 8.2 g/dL (6.4-8.2); Sodium Level 134 mmol/L (136-145); Troponin-I HS 28 pg/mL (3.0-78.0)
--- NOTE | 2021-03-07 11:53 | EKG12_ITS ---
Test Reason : AFIB Blood Pressure : / mmHG Vent. Rate : 109 BPM Atrial Rate : 267 BPM P-R Int : 000 ms QRS Dur : 076 ms QT Int : 364 ms P-R-T Axes : 000 068 -17 degrees QTc Int : 490 ms Atrial fibrillation Nonspecific T wave abnormality Abnormal ECG Confirmed by DINAA HARVEY, LAURA ([id number]), medical transcription editor KARRI AMIN ([id number]) on 03/08/2021 1:04:30 PM Referred By: FRANCES Confirmed By:LAURA ORTIZ MD
--- NOTE | 2021-03-07 12:49 | PCM.HP.STD ---
Documented by User: ALLAN AlvarezC 03/07/21 13:00 HPI - General General Date of Admission: 03/07/21 Date of Service: 03/07/21 Chief Complaint: Weakness, debility HPI Narrative MAREK RAMSAY, is a 60 M who presents with complaints of weakness and difficulty taking care of himself at home. Patient was diagnosed with COVID on 03/02/2021. Patient denies any respiratory symptoms including shortness of breath or cough. Patient states his only symptoms has been that he has been increasingly weak and has fallen at home. Patient was seen in our ER on 03/06/2021 and sent home however he has become increasingly weaker and states that he is having an increased difficulty ambulating. Patient will be admitted for correction placement. [facility] Medical History (HFpEF) heart failure with preserved ejection fraction Acute exacerbation of CHF (congestive heart failure) Tkezv-vl-axzynea kidney injury Anemia Anxiety Atrial fibrillation Cardiology follow-up encounter Chest pain CHF (congestive heart failure) Chronic 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 Colonization status Congestive heart failure (CHF) Coronary artery disease CPAP (continuous positive airway pressure) dependence Delayed wound healing Depression Dialysis catheter clot or failure Diastolic CHF, acute Dietary restriction DVT (deep venous thrombosis) Edema of left lower leg due to peripheral venous insufficiency Equinus contracture of left ankle Essential hypertension Former smoker Gastric reflux Hammer toe of left foot Hemodialysis patient High cholesterol History of DVT of lower extremity History of edema History of pain when walking History of renal disease History of stress test Hx of echocardiogram Loss of consciousness Loss of hearing Malnutrition Morbid obesity Other specified peripheral vascular diseases Pressure ulcer Pulmonary hypertension Shortness of breath on exertion Skin tear Syncope Transfusion (red blood cell) associated hemochromatosis Trigger finger Type 2 diabetes mellitus with diabetic polyneuropathy Ulcer of left lower extremity with fat layer exposed Wears glasses Home Medications ascorbic acid (vitamin C) [Vitamin C] 1,000 mg PO DAILY 12/02/16 [History Last Taken Unknown] buspirone 10 mg PO BID 12/02/16 [History Last Taken 07/22/20] dicyclomine 20 mg PO TID 12/02/16 [History Last Taken Unknown] venlafaxine [Effexor XR] 150 mg PO DAILY 12/02/16 [History Last Taken Unknown] atorvastatin 40 mg PO DAILY 05/23/20 [History Last Taken 07/22/20] insulin NPH isoph U-100 human [Humulin N NPH Insulin KwikPen] 12 units SQ QHS 05/23/20 [History Last Taken Unknown] pyridoxine (vitamin B6) 100 mg PO DAILY 05/23/20 [History Last Taken Unknown] B complex with C 20-folic acid 1 capsule PO DAILY #30 capsule 06/01/20 [Rx Last Taken Unknown] warfarin 12.5 mg PO DINNER #0 06/01/20 [Rx Last Taken 07/18/20] gabapentin [Neurontin] 800 mg PO BID 06/13/20 [History Last Taken 07/22/20] simethicone [Gas Relief (simethicone)] 80 mg PO TIDPC 03/06/21 [History Last Taken Unknown] calcium acetate(phosphat bind) 2,001 mg PO TIDCM 03/07/21 [History Last Taken Unknown] clopidogrel 75 mg PO DAILY 03/07/21 [History Last Taken Unknown] furosemide 40 mg PO DAILY 03/07/21 [History Last Taken Unknown] glipizide 5 mg PO TID 03/07/21 [History Last Taken Unknown] nifedipine 90 mg PO QHS 03/07/21 [History Last Taken Unknown] Allergy/AdvReac Type Severity Reaction Status Date / Time cephalexin Allergy Hives Verified 03/07/21 10:19 Penicillins Allergy Hives Verified 03/07/21 10:19 Family History Mother Diabetes Heart disease Hypertension Surgical History History of arteriovenostomy for renal dialysis (~07/2020) History of carpal tunnel surgery of left wrist History of carpal tunnel surgery of right wrist History of tonsillectomy and adenoidectomy S/P carpal tunnel release S/P tonsillectomy Social History Smoking Status: Former smoker alcohol intake: never ROS Constitutional Constitutional: Reports fatigue, lethargy and weakness; Denies anorexia, chills, fever(s) or malaise Cardiovascular Cardiovascular: Denies chest pain, edema, palpitations or syncope Respiratory/Chest Respiratory/Chest: Denies cough, shortness of breath at rest, shortness of breath with exertion or wheezing Gastrointestinal Gastrointestinal: Denies abdominal pain, constipation, diarrhea, nausea or vomiting Genitourinary Genitourinary: Denies dysuria Musculoskeletal Musculoskeletal: Denies back pain, extremity pain, joint pain, joint stiffness or joint swelling Integumentary Integumentary: Denies dry skin Neurologic Neurologic: Reports weakness; Denies abnormal gait, abnormal speech, confusion, dizziness or focal weakness Psychiatric Psychiatric: Denies anxiety or depression Endocrine Endocrinology: Denies change in body appearance Hematologic/Lymphatic Hematologic/Lymphatic: Denies anemia or easy bleeding Vital Signs Vital Signs Vital Signs: 03/07/21 10:19 03/07/21 10:49 03/07/21 10:50 Temperature 96.9 F L Temperature Source Temporal Pulse Rate 96 112 H Pulse Rate [Lying] Pulse Rate [Sitting] Pulse Rate [Standing] Respiratory Rate 20 H 16 Respiratory Effort Normal Non-Labored Respiratory Pattern Normal Blood Pressure 178/157 H 123/95 H Blood Pressure [Lying] Blood Pressure [Sitting] Blood Pressure [Standing] Blood Pressure Mean 164 104 Blood Pressure Mean [Lying] Blood Pressure Mean [Sitting] Blood Pressure Mean [Standing] Pulse Ox 100 100 Oxygen Delivery Method Room Air Room Air 03/07/21 11:16 03/07/21 12:22 Temperature 97.1 F L Temperature Source Temporal Pulse Rate 113 H Pulse Rate [Lying] 108 H Pulse Rate [Sitting] 117 H Pulse Rate [Standing] 124 H Respiratory Rate 14 Respiratory Effort Respiratory Pattern Blood Pressure 124/66 H Blood Pressure [Lying] 109/69 Blood Pressure [Sitting] 123/66 H Blood Pressure [Standing] 89/51 L Blood Pressure Mean 85 Blood Pressure Mean [Lying] 82 Blood Pressure Mean [Sitting] 85 Blood Pressure Mean [Standing] 63 Pulse Ox 100 Oxygen Delivery Method Room Air Weight Weight: 320 lb Body Mass Index (BMI) 48.6 Physical Exam Const alert, oriented x3 and no apparent distress General Appearance: cooperative HEENT normocephalic and head/scalp atraumatic Eyes conjunctivae normal and no scleral icterus Neck no lymphadenopathy and supple General: trachea midline Resp normal respiratory effort, normal air movement and clear to auscultation bilaterally Cardio regular rate, regular rhythm, S1 normal heart sound, S2 normal heart sound and peripheral pulses 2+ throughout Rate: tachycardic GI normal to inspection, nondistended, normoactive bowel sounds, soft to palpation and non-tender Extremity normal capillary refill and no clubbing, cyanosis or edema General Extremity: no tenderness to palpation of joints or extremities Skin General Skin Exam: no breakdown and turgor normal Lesions: no lesions Rashes: no rashes Neuro no focal motor deficits and no sensory deficits noted Speech: speech normal Motor Exam: general weakness Psych thought process normal, cooperative and affect normal Appearance: appropriate Results Lab / Micro Data Result Diagrams: 03/07/21 10:45 03/07/21 10:45 Labs: Laboratory Results - last 24 hr 03/07/21 10:45: PT 13.2, INR 1.1 03/07/21 10:45: WBC 6.3, RBC 3.62 L, Hgb 11.9 L, Hct 35.0 L, MCV 96.7 H, MCH 32.9 H, MCHC 34.0, RDW Std Deviation 48.4 H, RDW Coeff of Kassandra 13.4, Plt Count 179, MPV 10.8, Immature Gran % (Auto) 0.600, Neut % (Auto) 64.9, Lymph % (Auto) 20.4, [place] % (Auto) 12.5 H, Eos % (Auto) 1.4, Baso % (Auto) 0.2, Absolute Neuts (auto) 4.1, Absolute Lymphs (auto) 1.29, Nucleated RBC % 0 03/07/21 10:45: Sodium 134 L, Potassium 3.6, Chloride 90 L, Carbon Dioxide 27.0, Anion Gap 17 H, BUN 38 H, Creatinine 8.06 H*, Estim Creat Clear Calc 9.55, Est GFR (MDRD) Af Amer 9 L, Est GFR (MDRD) Non-Af 7 L, BUN/Creatinine Ratio 4.7 L, Glucose 130 H, Calcium 8.3 L, Total Bilirubin 0.60, AST 45 H, ALT 41, Alkaline Phosphatase 68, Troponin I High Sens 28, Total Protein 8.2, Albumin 3.3, Globulin 4.9 H, Albumin/Globulin Ratio 0.7 L Radiology Impression Brain CT 03/07/21 10:38 IMPRESSION: No acute intracranial process. Electronically Signed: Nate Bobby, at 11:13 EST Tel , Service support , Chest X-Ray 03/07/21 10:45 IMPRESSION: No active pulmonary disease. Electronically Signed: Nate Bobby, at 11:11 EST Tel , Service support , Assessment & Plan Assessment/Plan (1) COVID-19: (2) Generalized weakness: PLAN: 1. Debility secondary to COVID-19 -Admit to [facility] for observation -Case management consulted for placement at SNF -PT and OT to eval and treat -CBC, BMP, PT/INR ordered daily -COVID precautions ordered -Encourage patient to use I-S -Oxygen therapy per protocol 2. End-stage chronic kidney disease -Patient is Monday dialysis -Labs within patient's normal -BMP daily 3. Diabetes mellitus type 2 -Continue patient's home medication regimen -ACHS blood sugars with sliding scale insulin ordered 4. Atrial fibrillation -Patient's INR 1.1, patient denies taking medications over the past few days because he has felt so ill -We will continue and medication dosing of Coumadin -PT/INR daily Will continue patient's home medication regimen in relation to patient's chronic diseases including CHF, hypertension, depression. DVT prophylaxis-SCDs This patient was seen by GURPREET Alvarez under the supervision of Dr. Duran. 14 minutes spent in clinical coordination of patient's plan of care. Documented by User: Dr. Alex Duran DO 03/07/21 15:15 HPI - General General Date of Admission: 03/07/21 [facility] Medical History (HFpEF) heart failure with preserved ejection fraction Acute exacerbation of CHF (congestive heart failure) Yrryu-yt-hcwwuvo kidney injury Anemia Anxiety Atrial fibrillation Cardiology follow-up encounter Chest pain CHF (congestive heart failure) Chronic 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 Colonization status Congestive heart failure (CHF) Coronary artery disease CPAP (continuous positive airway pressure) dependence Delayed wound healing Depression Dialysis catheter clot or failure Diastolic CHF, acute Dietary restriction DVT (deep venous thrombosis) Edema of left lower leg due to peripheral venous insufficiency Equinus contracture of left ankle Essential hypertension Former smoker Gastric reflux Hammer toe of left foot Hemodialysis patient High cholesterol History of DVT of lower extremity History of edema History of pain when walking History of renal disease History of stress test Hx of echocardiogram Loss of consciousness Loss of hearing Malnutrition Morbid obesity Other specified peripheral vascular diseases Pressure ulcer Pulmonary hypertension Shortness of breath on exertion Skin tear Syncope Transfusion (red blood cell) associated hemochromatosis Trigger finger Type 2 diabetes mellitus with diabetic polyneuropathy Ulcer of left lower extremity with fat layer exposed Wears glasses Home Medications ascorbic acid (vitamin C) [Vitamin C] 1,000 mg PO DAILY 12/02/16 [History Last Taken Unknown] buspirone 10 mg PO BID 12/02/16 [History Last Taken 07/22/20] dicyclomine 20 mg PO TID 12/02/16 [History Last Taken Unknown] venlafaxine [Effexor XR] 150 mg PO DAILY 12/02/16 [History Last Taken Unknown] atorvastatin 40 mg PO DAILY 05/23/20 [History Last Taken 07/22/20] insulin NPH isoph U-100 human [Humulin N NPH Insulin KwikPen] 12 units SQ QHS 05/23/20 [History Last Taken Unknown] pyridoxine (vitamin B6) 100 mg PO DAILY 05/23/20 [History Last Taken Unknown] B complex with C 20-folic acid 1 capsule PO DAILY #30 capsule 06/01/20 [Rx Last Taken Unknown] warfarin 12.5 mg PO DINNER #0 06/01/20 [Rx Last Taken 07/18/20] gabapentin [Neurontin] 800 mg PO BID 06/13/20 [History Last Taken 07/22/20] simethicone [Gas Relief (simethicone)] 80 mg PO TIDPC 03/06/21 [History Last Taken Unknown] calcium acetate(phosphat bind) 2,001 mg PO TIDCM 03/07/21 [History Last Taken Unknown] clopidogrel 75 mg PO DAILY 03/07/21 [History Last Taken Unknown] furosemide 40 mg PO DAILY 03/07/21 [History Last Taken Unknown] glipizide 5 mg PO TID 03/07/21 [History Last Taken Unknown] nifedipine 90 mg PO QHS 03/07/21 [History Last Taken Unknown] Allergy/AdvReac Type Severity Reaction Status Date / Time cephalexin Allergy Hives Verified 03/07/21 10:19 Penicillins Allergy Hives Verified 03/07/21 10:19 Family History Mother Diabetes Heart disease Hypertension Surgical History History of arteriovenostomy for renal dialysis (~07/2020) History of carpal tunnel surgery of left wrist History of carpal tunnel surgery of right wrist History of tonsillectomy and adenoidectomy S/P carpal tunnel release S/P tonsillectomy Social History Smoking Status: Former smoker alcohol intake: never Results Lab / Micro Data Result Diagrams: 03/07/21 10:45 03/07/21 10:45 Charges/Coding Addendum Addendum: Patient was seen and examined today independently of Khushi Tyler, he came to the ER today after having been seen yesterday for complaints of weakness, patient was ambulated yesterday and felt appropriate to go home. Patient drove himself to dialysis yesterday but then he stated when he got home he was very weak and unable to carry out ADLs. Patient was diagnosed with COVID-19 approximately 7 days ago, he does not complain of any shortness of breath at rest. On examination he appeared in good health and spirits. Vital signs as documented. Skin warm and dry and without overt rashes. Neck without JVD, neck was supple, trachea midline, thyroid was normal. Lungs clear bilaterally, normal air movement was noted. Heart exam notable for irregular rhythm, normal sounds and absence of murmurs, rubs or gallops. Abdomen unremarkable and without evidence of organomegaly, masses, or abdominal aortic enlargement. Bowel sounds are present, abdomen is not distended. Patient is morbidly obese. Extremities generalized edema is noted over both lower legs, no cyanosis was noted, no clubbing was noted. Neuro: Cranial nerves II through XII are grossly intact, no focal motor deficits were noted, sensation to light touch and pinprick intact, motor exam 5/5 throughout. Psych: Patient is alert and oriented x3, he does not appear anxious or depressed, he does not appear agitated. Impression: #1 acute debility secondary to COVID-19 infection without hypoxia-patient will be placed in observation status on MedSur 3, he will be seen by PT and OT, he might need placement in a fpc facility for short-term rehab services. #2 end-stage renal disease on dialysis-I talked with Dr. Acharya his marine engineer, she states that if he is still here in the hospital on Monday she will be glad to see him in consultation for dialysis-his next dialysis today is Monday. #3 type 2 diabetes-blood sugars will be monitored, patient will remain on his home diabetic medications #4 morbid obesity-complicates care, medical course, recovery, and prognosis. Patient will be seen by dietary #5 chronic congestive heart failure with preserved ejection fraction-patient does not have clinical congestive heart failure today, he will remain on his outpatient meds #6 chronic atrial fibrillation-patient is not appear to be on any rate limiting medications, his pulse is 96, patient is taking warfarin at home but he tells this examiner that he is unsure has been taking incorrectly over the last few days because he has been feeling so bad.-Patient will be given extra Coumadin today and INR will be rechecked. #7 chronic depression-patient is on Effexor Exar I have reviewed Khushi Tyler's history and physical including her medical assessment and plan of care and endorse it with the above additions. Total clinical time spent by myself on this patient: 61 minutes. Visit Charges OBSV E&M: 51851 Initial observation care L3
--- NOTE | 2021-03-07 13:53 | PCS.PANDOC ---
PANDEMIC DOCUMENTATION INITIATED: Date: 10/05/2020 Time: 190
[2021-03-07] MEDS: Calcium Acetate 667 MG Capsule 2001 MG PO (16:52)
[2021-03-07] MEDS: Dicyclomine 10 MG Capsule 20 MG PO (16:52)
[2021-03-07] MEDS: glipiZIDE 5 MG Tablet PO (16:52)
[2021-03-07] MEDS: Insulin Lispro 100 UNIT/ML INSULN.PEN SC (16:59)
[2021-03-07 17:10] LABS: Bedside Glucose 166 mg/dL (70-110)
[2021-03-07] MEDS: Loperamide 2 MG Capsule PO ×2 (17:38→21:18)
[2021-03-07] MEDS: Venlafaxine XR 150 MG Capsule PO (17:38)
[2021-03-07] MEDS: Acetaminophen 325 MG Tablet 650 MG PO (17:38)
[2021-03-07] MEDS: MELATONIN 3 MG TABLET PO (21:18)
[2021-03-07] MEDS: busPIRone 5 MG Tablet 10 MG PO (21:18)
[2021-03-07] MEDS: Gabapentin 400 MG Capsule 800 MG PO (21:18)
[2021-03-07] MEDS: NIFEdipine 90 MG Tablet PO (21:19)
[2021-03-07 21:30] LABS: Bedside Glucose 107 mg/dL (70-110)
[2021-03-08 02:43] VITALS: BP 138/69; PULSE 76; RESP 18; TEMP 36.7; O2SAT 98
[2021-03-08 06:20] LABS: Bedside Glucose 95 mg/dL (70-110)
[2021-03-08 07:18] LABS: Absolute Lymphocyte Count 2.52 X10^3/uL (0.83-4.51); Absolute Neutrophil Count 2.9 X10^3/uL (2.0-7.7); Basophil# 0.02 X10^3/uL; Basophil% 0.3 % (0-1); Eosinophil# 0.28 X10^3/uL; Eosinophils% 4.3 % (0-5); Hematocrit 32.2 % (40-54); Hemoglobin 10.9 g/dL (13.0-16.5); Lymphocyte # 2.52 X10^3/ul (0.83-4.51); Lymphocyte % 38.7 % (19-41); Mean Corp Hgb Conc 33.9 g/dL (32-36); Mean Corpuscular Hgb 33.6 pg (27.0-32.0); Mean Corpuscular Volume 99.4 fL (80-94); Monocyte# 0.82 X10^3/uL; Monocyte% 12.6 % (0-10); NRBC Flagged by Analyzer 0 % (0-5); Neutrophil # 2.86 X10^3/uL (2.7-7.7); Neutrophil % 43.8 % (47-70); Platelet Count 156 K/mm3 (150-450); RBC Distribution Width CV 13.5 % (11.6-14.6); RBC Distribution Width SD 49.1 fl (35.1-43.9); Red Blood Count 3.24 M/mm3 (4.6-6.2); White Blood Count 6.5 K/mm3 (4.4-11.0)
[2021-03-08 07:35] VITALS: O2SAT 98
[2021-03-08 07:40] VITALS: BP 112/71; PULSE 77; RESP 18; TEMP 36.4; O2SAT 98
[2021-03-08] MEDS: Pyridoxine HCl 100 MG Tablet PO (07:46)
[2021-03-08] MEDS: Gabapentin 400 MG Capsule 800 MG PO ×2 (07:46→20:44)
[2021-03-08] MEDS: Clopidogrel Bisulfate 75 MG Tablet PO (07:46)
[2021-03-08] MEDS: Folic Acid/Vitamin B Comp W-C 1 Capsule 1 CAP PO (07:46)
[2021-03-08] MEDS: Ascorbic Acid 500 MG Tablet 1000 MG PO (07:47)
[2021-03-08 07:48] LABS: Anion Gap 13 (5-15); BUN 61 mg/dL (7-18); Calcium,Total 8.4 mg/dL (8.5-10.1); Chloride 91 mmol/L (98-107); EST Glomerular Filtration Rate 6 mL/min (>60); Est Glom Filt Rate - Afr Amer 7 mL/min (>60); Estimated Creatinine Clearance 7.62 ml/min; Glucose 107 mg/dL (74-106); Potassium 2.8 mmol/L (3.5-5.1); Sodium Level 133 mmol/L (136-145)
[2021-03-08] MEDS: Calcium Acetate 667 MG Capsule 2001 MG PO ×3 (07:48→17:22)
[2021-03-08] MEDS: busPIRone 5 MG Tablet 10 MG PO ×2 (07:48→20:44)
[2021-03-08] MEDS: Furosemide 40 MG Tablet PO (07:48)
[2021-03-08 07:56] LABS: Bedside Glucose 103 mg/dL (70-110)
[2021-03-08 08:18] LABS: Prothrombin Time (Protime)PT. 12.4 SECONDS (11.7-14.9)
[2021-03-08] MEDS: Atorvastatin Calcium 40 MG Tablet PO (10:23)
[2021-03-08] MEDS: Dicyclomine 10 MG Capsule 20 MG PO ×3 (10:23→17:22)
[2021-03-08] MEDS: Venlafaxine XR 150 MG Capsule PO (10:23)
[2021-03-08] MEDS: Insulin Lispro 100 UNIT/ML INSULN.PEN SC ×3 (11:52→20:47)
--- NOTE | 2021-03-08 13:33 | CASEMGMT ---
Social Work Note SW reviewed chart. Pt is requesting SNF. Pt is on dialysis. SW checked pt's insurance website. SW searched 100 mile radius from [place] and the following SNF are accepting COVID+ pt's and are in network with pt's insurance. 1. [facility] in [place] 2. [facility] in [place] 3. [facility] in [place] 4. [facility] in [place] 5. [facility] in [place] SW to call SNF to inquire about bed availability and will speak to pt about SNF options. Alyssa Carmen COMMUNITY HEALTH EDUCATION COORDINATOR, CONING MACHINE OPERATOR
--- NOTE | 2021-03-08 13:40 | CASEMGMT ---
RN DORIS TAX COMPLIANCE MANAGER CM to room to meet with patient for initial transition planning/care coordination assessment. RN DORIS introduced self and role at [facility]. Pt voices understanding and consents to assessment at this time. Pt resting in bed in no distress at this time. Pt is A/O at this time and answers all questions appropriately. Care providers, pharmacy, and demographics verified/updated at this time. COVID +. Testing done @ [facility], Urgent care PCP: Dr Ng Specialists: Dr Acharya--nephrology. Real Estate Intern @ [facility]. is interested in seeing Dr Knapp--endocrinology. Rac Card w/contact info for Dr Knapp given to RN, Torri, to provide to pt. Palliative referral had been made by [facility] 05/2020. TC to Marisel @ [facility] Palliative. She states they attempted a few times to contact pt to schedule appt w/no return calls and so chart was closed. This RN DORIS discussed Palliative care w/pt at this time. He declines wanting referral made, stating, Not now. I'll think about it. Dialysis: Pt was going to [facility] until +COVID. Pt just started going to [facility] in [place] (Has only went there once so far). Chair time is TTS @ 0730. Preferred Pharmacy: [facility] Insurance:[employer] [facility] Prescription Benefit: Yes Living Will/HPOA: Does not have either. Pt would like to complete these while @ [facility]. He states would like his nephew, Rivera Downey, who lives in [place], to be his HPOA. Alyssa SUH, made aware. LNOK: Nephew, Rivera Downey. has many other family members, but Rivera orozco is the only one I'm close to. Living Arrangements: Lives alone in mobile home w/4 steps to enter. Was independent w/ADL's and IADL's until recent illness w/COVID. Pt states has been very weak and difficult caring for self and has been falling @ home. Pt has been sponge-bathing @ baseline since May. Transportation: Pt drives DME: has the following DME: cane (has but does not use), 2 glucometers. No home O2. HHC/SNF: No hx of SNF or HHC. Pt states he would like to go to SNF @ discharge. Alyssa SUH, made aware. PLAN: SNF Vandana TOLBERT RN CM
[2021-03-08 15:17] VITALS: BP 103/68; PULSE 88; RESP 18; TEMP 36.8; O2SAT 98
[2021-03-08 15:19] VITALS: RESP 18
[2021-03-08 15:21] LABS: Bedside Glucose 207 mg/dL (70-110)
--- NOTE | 2021-03-08 15:22 | PCM.PN.HOSP ---
Subjective Subjective Feels well. Feels unsteady with change of positions. Objective Data Objective Data Vital Signs: Vital Signs Temp Pulse Resp BP Pulse Ox 36.8 C 88 18 103/68 98 03/08/21 15:17 03/08/21 15:17 03/08/21 15:17 03/08/21 15:17 03/08/21 15:17 Oxygen Delivery Method Room Air Weight: 140.3 kg Body Mass Index (BMI) 46.7 Intake & Output: Intake and Output for Last 24 Hours 03/06/21 03/07/21 03/08/21 23:59 23:59 23:59 Intake Total 800 / 800 350 / 350 Balance 800 / 800 350 / 350 Medical Nutrition Assessment Dietitian: Malnutrition Criteria Met Start: 03/07/21 14:52 Freq: Status: Active Protocol: Document 03/07/21 14:52 MAYI (Rec: 03/07/21 14:52 MAYI [id number]) Nutrition Malnutrition Evidence of Malnutrition Exists Yes Evidenced By Suboptimal Energy Intake ( Severe),Weight Loss (Severe) Clinical Problem Acute Disease or Injury Related Malnutrition Etiology related to covid and inability to consume adequate nutrition to meet est nutritional needs Signs/Symptoms as evidenced by <75% po intake and 4% wt loss x 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 Status Active Problem Recommendation Dietitian Recommendations/Changes Will continue diet as ordered Will provide 4 oz nepro cho steady (tyler) w/ meals for increased nutrition if consumed Lab / Micro Data Result Diagrams: 03/08/21 06:42 03/08/21 06:42 Labs: Laboratory Results - last 24 hr 03/07/21 16:59: POC Glucose 166 H 03/07/21 21:16: POC Glucose 107 03/08/21 06:01: POC Glucose 95 03/08/21 06:42: Sodium 133 L, Potassium 2.8 L, Chloride 91 L, Carbon Dioxide 29.0, Anion Gap 13, BUN 61 H, Creatinine 10.10 H*, Estim Creat Clear Calc 7.62, Est GFR (MDRD) Af Amer 7 L, Est GFR (MDRD) Non-Af 6 L, BUN/Creatinine Ratio 6.0 L, Glucose 107 H, Calcium 8.4 L 03/08/21 06:42: WBC 6.5, RBC 3.24 L, Hgb 10.9 L, Hct 32.2 L, MCV 99.4 H, MCH 33.6 H, MCHC 33.9, RDW Std Deviation 49.1 H, RDW Coeff of Kassandra 13.5, Plt Count 156, MPV 11.0, Immature Gran % (Auto) 0.300, Neut % (Auto) 43.8 L, Lymph % (Auto) 38.7, [place] % (Auto) 12.6 H, Eos % (Auto) 4.3, Baso % (Auto) 0.3, Absolute Neuts (auto) 2.9, Absolute Lymphs (auto) 2.52, Nucleated RBC % 0 03/08/21 06:42: PT 12.4, INR 1.0 03/08/21 07:37: POC Glucose 103 03/08/21 11:48: POC Glucose 207 H Physical Exam Const alert Resp normal respiratory effort, no retractions, no use of accessory muscles and clear to auscultation bilaterally Cardio regular rate, regular rhythm, S1 normal heart sound and S2 normal heart sound GI normal to inspection, nondistended, normoactive bowel sounds, soft to palpation, non-tender and non-distended Skin Skin Narrative: scrape and bruising along lower left flank and hip. Assessment & Plan Assessment/Plan (1) COVID-19: (2) Orthostatic hypotension: PLAN: 1. COVID 19. onset 03/02. Quarantine through 03/11. HDS vaccinated 2. Orthostatic hypotension DC nifedipine recheck orthostatics in AM 3. ESRD continue HD per nephrology 4. DM2 fair control continue glipizide, NPH and SSI Charges/Coding Visit Charges Inpatient E&M: 75520 Subs Hosp L2
--- NOTE | 2021-03-08 16:40 | CASEMGMT ---
Addendum entered by Alyssa Carmen 03/08/21 16:45: SW also aware that pt is requesting Advanced Directives to be completed. SW will meet with pt regarding Advanced Directives as time permits. Original Note: Social Work Note SW in to speak with pt to discuss SNF options. SW introduced self and role at [facility]. Pt is alert and orientated. Patient was provided a list of SNF providers including quality and resource use data and consistent with the patient?s preferred geographic region, medical needs, and insurance network. Pt gave this worker permission to start calling SNF and inquire about bed availability. Pt states that he does go to Dialysis at [facility] and has been going to [place]. SW informed pt that he may have to switch to a different dialysis location while at [facility] pending on which SNF can accept pt. Pt states understanding. SW upated that pt's current dialysis schedule is T,TH, S 7:30am at [facility] in [place]. SW updated that [facility] no longer has a COVID unit. SW will begin calling COVID SNF Tomorrow to inquire about bed availability. Plan: SNF pending acceptance and pre-cert Alyssa Carmen LEARNING SUPPORT TEACHER, MODEL HOME SALES GREETER
[2021-03-08] MEDS: glipiZIDE 5 MG Tablet PO (17:21)
[2021-03-08 19:40] LABS: Bedside Glucose 218 mg/dL (70-110)
[2021-03-08 20:39] VITALS: BP 126/59; PULSE 94; RESP 18; TEMP 36.9; O2SAT 95
[2021-03-08] MEDS: MELATONIN 3 MG TABLET PO (20:44)
[2021-03-08] MEDS: Insulin NPH Human 100 UNITS/ML PEN 12 UNITS SC (20:47)
[2021-03-08 20:55] LABS: Bedside Glucose 216 mg/dL (70-110)
[2021-03-09] VITALS (7 sets, daily range): BP systolic 97–137; BP diastolic 55–78; PULSE 72–82; RESP 16–18; TEMP 36.7–37; O2SAT 96–98
[2021-03-09 06:25] LABS: Bedside Glucose 103 mg/dL (70-110)
[2021-03-09 06:25] LABS: Absolute Lymphocyte Count 1.92 X10^3/uL (0.83-4.51); Absolute Neutrophil Count 5.7 X10^3/uL (2.0-7.7); Basophil# 0.01 X10^3/uL; Basophil% 0.1 % (0-1); Eosinophil# 0.28 X10^3/uL; Eosinophils% 3.2 % (0-5); Hemoglobin 10.2 g/dL (13.0-16.5); Lymphocyte # 1.92 X10^3/ul (0.83-4.51); Mean Corpuscular Hgb 33.1 pg (27.0-32.0); Mean Corpuscular Volume 97.4 fL (80-94); Mean Platelet Vol. 11.2 fl (6.2-12.0); Monocyte# 0.82 X10^3/uL; Monocyte% 9.4 % (0-10); NRBC Flagged by Analyzer 0 % (0-5); Neutrophil # 5.65 X10^3/uL (2.7-7.7); Neutrophil % 64.8 % (47-70); Platelet Count 166 K/mm3 (150-450); RBC Distribution Width CV 13.2 % (11.6-14.6); RBC Distribution Width SD 46.8 fl (35.1-43.9); Red Blood Count 3.08 M/mm3 (4.6-6.2); White Blood Count 8.7 K/mm3 (4.4-11.0)
[2021-03-09 06:33] LABS: International Normalized Ratio 1.1; Prothrombin Time (Protime)PT. 13.9 SECONDS (11.7-14.9)
[2021-03-09 06:59] LABS: Anion Gap 15 (5-15); BUN 81 mg/dL (7-18); BUN/Creat Ratio 7.3 RATIO (10-20); Calcium,Total 8.6 mg/dL (8.5-10.1); Chloride 89 mmol/L (98-107); EST Glomerular Filtration Rate 5 mL/min (>60); Est Glom Filt Rate - Afr Amer 6 mL/min (>60); Estimated Creatinine Clearance 6.93 ml/min; Glucose 114 mg/dL (74-106); Potassium 3.3 mmol/L (3.5-5.1); Sodium Level 133 mmol/L (136-145)
[2021-03-09] MEDS: Dicyclomine 10 MG Capsule 20 MG PO ×3 (07:52→15:59)
[2021-03-09] MEDS: Gabapentin 400 MG Capsule 800 MG PO ×2 (07:52→23:02)
[2021-03-09] MEDS: Pyridoxine HCl 100 MG Tablet PO (07:52)
[2021-03-09] MEDS: Ascorbic Acid 500 MG Tablet 1000 MG PO (07:52)
[2021-03-09] MEDS: Atorvastatin Calcium 40 MG Tablet PO (07:53)
[2021-03-09] MEDS: busPIRone 5 MG Tablet 10 MG PO ×2 (07:53→23:02)
[2021-03-09] MEDS: Calcium Acetate 667 MG Capsule 2001 MG PO ×3 (07:53→16:00)
[2021-03-09] MEDS: Clopidogrel Bisulfate 75 MG Tablet PO (07:53)
[2021-03-09] MEDS: Folic Acid/Vitamin B Comp W-C 1 Capsule 1 CAP PO (07:54)
[2021-03-09] MEDS: Venlafaxine XR 150 MG Capsule PO (07:54)
--- NOTE | 2021-03-09 10:33 | CASEMGMT ---
Social Work Note VIKASH did place a call to Mikel at [facility] to inquire if they would review referral. Pt is a [facility] pt and [facility] can accommodate on-site dialysis. Pt's current dialysis schedule is , 7:30am at [place]. Mikel states they would be willing to review referral, will need to check on bed availability. VIKASH faxed referral to [facility]. VIKASH to fax PT/OT when available. Plan: SNF pending acceptance and pre-cert. Alyssa Carmen PROCESS CONTROLLER, SALOONKEEPER
--- NOTE | 2021-03-09 11:09 | CON.PCM.RE_ITS ---
Assessment & Plan Assessment/Plan (1) ESRD (end stage renal disease) on dialysis: PLAN: HD today, will need discharged to cohort clinic due to COVID. Currently assigned to [facility] [place] [facility] 14 days on HD TTS with first tx on 03/06/21. (2) COVID-19: (3) Generalized weakness: PLAN: await ECF placement (4) Essential hypertension: PLAN: stable (5) Type 2 diabetes mellitus with diabetic polyneuropathy: (6) Anemia: PLAN: hgb stable (7) Hypokalemia: PLAN: likely due to poor appetite form COVID (8) Morbid obesity: HPI Consult Data Date of Consult: 03/09/21 HPI Narrative Reason for Consultation: ESRD on HD TTS, COVID positive HPI Narrative: MAREK RAMSAY, is a 60 M with ESRD due to diabetes on HD TTS at [facility] [place] presents with weakness, fatigue, near syncope needing ECF placement. He was seen in ER on 03/06/21 for same complaints and diagnosed w neha JI. He was sent home and went to [facility], cohort COVID clinic, for part of his dialysis treatment on 03/06/21. He returned back to ED on 03/07/21 for increased weakness, fall and admitted for ECF placement. He denied cough, SOB, fever or chills. 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 According to the patient, he went to urgent care on 03/02/21 and tested positive for COVID. 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 Colonization status Congestive heart failure (CHF) Coronary artery disease CPAP (continuous positive airway pressure) dependence Delayed wound healing Depression Dialysis catheter clot or failure Diastolic CHF, acute Dietary restriction DVT (deep venous thrombosis) Edema of left lower leg due to peripheral venous insufficiency Equinus contracture of left ankle Essential hypertension Former smoker Gastric reflux Hammer toe of left foot Hemodialysis patient High cholesterol History of DVT of lower extremity History of edema History of pain when walking History of renal disease History of stress test Hx of echocardiogram Loss of consciousness Loss of hearing Malnutrition Morbid obesity Other specified peripheral vascular diseases Pressure ulcer Pulmonary hypertension Shortness of breath on exertion Skin tear Syncope Transfusion (red blood cell) associated hemochromatosis Trigger finger Type 2 diabetes mellitus with diabetic polyneuropathy Ulcer of left lower extremity with fat layer exposed Wears glasses Home Medications ascorbic acid (vitamin C) [Vitamin C] 1,000 mg PO DAILY 12/02/16 [History Last Taken Unknown] buspirone 10 mg PO BID 12/02/16 [History Last Taken 07/22/20] dicyclomine 20 mg PO TID 12/02/16 [History Last Taken Unknown] venlafaxine [Effexor XR] 150 mg PO DAILY 12/02/16 [History Last Taken Unknown] atorvastatin 40 mg PO DAILY 05/23/20 [History Last Taken 07/22/20] insulin NPH isoph U-100 human [Humulin N NPH Insulin KwikPen] 12 units SQ QHS 05/23/20 [History Last Taken Unknown] pyridoxine (vitamin B6) 100 mg PO DAILY 05/23/20 [History Last Taken Unknown] B complex with C 20-folic acid 1 capsule PO DAILY #30 capsule 06/01/20 [Rx Last Taken Unknown] warfarin 12.5 mg PO DINNER #0 06/01/20 [Rx Last Taken 07/18/20] gabapentin [Neurontin] 800 mg PO BID 06/13/20 [History Last Taken 07/22/20] simethicone [Gas Relief (simethicone)] 80 mg PO TIDPC 03/06/21 [History Last Taken Unknown] calcium acetate(phosphat bind) 2,001 mg PO TIDCM 03/07/21 [History Last Taken Unknown] clopidogrel 75 mg PO DAILY 03/07/21 [History Last Taken Unknown] furosemide 40 mg PO DAILY 03/07/21 [History Last Taken Unknown] glipizide 5 mg PO TID 03/07/21 [History Last Taken Unknown] nifedipine 90 mg PO QHS 03/07/21 [History Last Taken Unknown] Allergy/AdvReac Type Severity Reaction Status Date / Time cephalexin Allergy Hives Verified 03/07/21 10:19 Penicillins Allergy Hives Verified 03/07/21 10:19 Family History Mother Diabetes Heart disease Hypertension Surgical History History of arteriovenostomy for renal dialysis (~07/2020) History of carpal tunnel surgery of left wrist History of carpal tunnel surgery of right wrist History of tonsillectomy and adenoidectomy S/P carpal tunnel release S/P tonsillectomy Social History Smoking Status: Former smoker alcohol intake: never Physical Exam Const alert, oriented x3 and no apparent distress Constitutional Narrative: gen weakness Resp clear to auscultation bilaterally Cardio regular rate Extremity no clubbing, cyanosis or edema Skin Skin Narrative: ecchymosis left hip with dry scab General Skin Exam: ecchymosis Neuro Sensorium / Orientation: awake and alert Psych cooperative Medical Records Data Medical Nutrition Assessment Dietitian: Malnutrition Criteria Met Start: 03/07/21 14:52 Freq: Status: Active Protocol: Document 03/07/21 14:52 MAYI (Rec: 03/07/21 14:52 [facility] [id number]) Nutrition Malnutrition Evidence of Malnutrition Exists Yes Evidenced By Suboptimal Energy Intake ( Severe),Weight Loss (Severe) Clinical Problem Acute Disease or Injury Related Malnutrition Etiology related to covid and inability to consume adequate nutrition to meet est nutritional needs Signs/Symptoms as evidenced by <75% po intake and 4% wt 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 Active Problem Recommendation Dietitian Recommendations/Changes Will continue diet as ordered Will provide 4 oz nepro cho steady (tyler) w/ meals for increased nutrition if consumed Lab / Micro Data Result Diagrams: 03/09/21 04:58 03/09/21 04:58 Labs: Laboratory Results - last 24 hr 03/08/21 11:48: POC Glucose 207 H 03/08/21 17:17: POC Glucose 218 H 03/08/21 20:43: POC Glucose 216 H 03/09/21 04:58: Sodium 133 L, Potassium 3.3 L, Chloride 89 L, Carbon Dioxide 29.0, Anion Gap 15, BUN 81 H, Creatinine 11.10 H*, Estim Creat Clear Calc 6.93, Est GFR (MDRD) Af Amer 6 L, Est GFR (MDRD) Non-Af 5 L, BUN/Creatinine Ratio 7.3 L, Glucose 114 H, Calcium 8.6 03/09/21 04:58: WBC 8.7, RBC 3.08 L, Hgb 10.2 L, Hct 30.0 L, MCV 97.4 H, MCH 33.1 H, MCHC 34.0, RDW Std Deviation 46.8 H, RDW Coeff of Kassandra 13.2, Plt Count 166, MPV 11.2, Immature Gran % (Auto) 0.500, Neut % (Auto) 64.8, Lymph % (Auto) 22.0, Will % (Auto) 9.4, Eos % (Auto) 3.2, Baso % (Auto) 0.1, Absolute Neuts (auto) 5.7, Absolute Lymphs (auto) 1.92, Nucleated RBC % 0 03/09/21 04:58: PT 13.9, INR 1.1 03/09/21 06:04: POC Glucose 103
--- NOTE | 2021-03-09 13:20 | PN.HOSP_ITS ---
Subjective Subjective No new complaints. Objective Data Objective Data Vital Signs: Vital Signs Temp Pulse Resp BP Pulse Ox 36.9 C 82 18 123/78 H 98 03/09/21 07:49 03/09/21 10:55 03/09/21 09:00 03/09/21 10:55 03/09/21 07:49 Oxygen Delivery Method Room Air Weight: 142.3 kg Body Mass Index (BMI) 46.7 Intake & Output: Intake and Output for Last 24 Hours 03/07/21 03/08/21 03/09/21 23:59 23:59 23:59 Intake Total 800 / 800 850 / 850 Balance 800 / 800 850 / 850 Medical Nutrition Assessment Dietitian: Malnutrition Criteria Met Start: 03/07/21 14:5 2 Freq: Status: Active Protocol: Document 03/07/21 14:52 MAYI (Rec: 03/07/21 14:52 MAYI [id number]) Nutrition Malnutrition Evidence of Malnutrition Exists Yes Evidenced By Suboptimal Energy Intake ( Severe),Weight Loss (Severe) Clinical Problem Acute Disease or Injury Related Malnutrition Etiology related to covid and inability to consume adequate nutrition to meet est nutritional needs Signs/Symptoms as evidenced by <75% po intake and 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 Active Problem Recommendation Dietitian Recommendations/Changes Will continue diet as ordered Will provide 4 oz nepro cho steady (tyler) w/ meals for increased nutrition if consumed Lab / Micro Data Result Diagrams: 03/09/21 04:58 03/09/21 04:58 Labs: Laboratory Results - last 24 hr 03/08/21 11:48: POC Glucose 207 H 03/08/21 17:17: POC Glucose 218 H 03/08/21 20:43: POC Glucose 216 H 03/09/21 04:58: Sodium 133 L, Potassium 3.3 L, Chloride 89 L, Carbon Dioxide 29.0, Anion Gap 15, BUN 81 H, Creatinine 11.10 H*, Estim Creat Clear Calc 6.93, Est GFR (MDRD) Af Amer 6 L, Est GFR (MDRD) Non-Af 5 L, BUN/Creatinine Ratio 7.3 L, Glucose 114 H, Calcium 8.6 03/09/21 04:58: WBC 8.7, RBC 3.08 L, Hgb 10.2 L, Hct 30.0 L, MCV 97.4 H, MCH 33.1 H, MCHC 34.0, RDW Std Deviation 46.8 H, RDW Coeff of Kassandra 13.2, Plt Count 166, MPV 11.2, Immature Gran % (Auto) 0.500, Neut % (Auto) 64.8, Lymph % (Auto) 22.0, [place] % (Auto) 9.4, Eos % (Auto) 3.2, Baso % (Auto) 0.1, Absolute Neuts (auto) 5.7, Absolute Lymphs (auto) 1.92, Nucleated RBC % 0 03/09/21 04:58: PT 13.9, INR 1.1 03/09/21 06:04: POC Glucose 103 Physical Exam Const alert and no apparent distress Resp normal respiratory effort, no retractions, no use of accessory muscles and clear to auscultation bilaterally Cardio regular rate, regular rhythm, S1 normal heart sound and S2 normal heart sound GI normal to inspection, nondistended, normoactive bowel sounds, soft to palpation, non-tender and non-distended Extremity normal to inspection Neuro Sensorium / Orientation: awake and alert Assessment & Plan Assessment/Plan (1) COVID-19: (2) Orthostatic hypotension: PLAN: 1. COVID 19. onset 03/02. Quarantine through 03/11. HDS vaccinated 2. Orthostatic hypotension DC nifedipine ongoing add midodrine 3. ESRD continue HD per nephrology 4. DM2 fair control continue glipizide, NPH and SSI 5. Debility plan for SNF, but need to find a facility that can accept COVID 19 and HD, unless he completes his quarantine through the , which ever comes first. Charges/Coding Visit Charges Inpatient E&M: 96401 Subs Hosp L2
[2021-03-09 14:11] LABS: Bedside Glucose 136 mg/dL (70-110)
[2021-03-09] MEDS: Midodrine HCl 5 MG Tablet 10 MG PO (16:00)
[2021-03-09] MEDS: glipiZIDE 5 MG Tablet PO (16:00)
--- NOTE | 2021-03-09 22:44 | DIALYSIS ---
Hemodialysis today. Pt stable and alert. UF -3000mL removed. Pt tolerated tx well. Report to KAMRON Maria
[2021-03-09] MEDS: MELATONIN 3 MG TABLET PO (23:02)
[2021-03-09] MEDS: Insulin NPH Human 100 UNITS/ML PEN 12 UNITS SC (23:03)
[2021-03-09 23:40] LABS: Bedside Glucose 141 mg/dL (70-110)
[2021-03-10] VITALS (7 sets, daily range): BP systolic 121–147; BP diastolic 68–73; PULSE 71–86; RESP 18–20; TEMP 36.5–36.7; O2SAT 96–100
[2021-03-10 00:41] LABS: Bedside Glucose 127 mg/dL (70-110)
[2021-03-10 05:39] LABS: Absolute Lymphocyte Count 2.19 X10^3/uL (0.83-4.51); Absolute Neutrophil Count 6.2 X10^3/uL (2.0-7.7); Basophil# 0.02 X10^3/uL; Basophil% 0.2 % (0-1); Eosinophil# 0.38 X10^3/uL; Eosinophils% 3.9 % (0-5); Hematocrit 31.8 % (40-54); Hemoglobin 10.7 g/dL (13.0-16.5); Lymphocyte # 2.19 X10^3/ul (0.83-4.51); Lymphocyte % 22.4 % (19-41); Mean Corp Hgb Conc 33.6 g/dL (32-36); Mean Corpuscular Hgb 33.3 pg (27.0-32.0); Mean Corpuscular Volume 99.1 fL (80-94); Monocyte# 0.94 X10^3/uL; Monocyte% 9.6 % (0-10); NRBC Flagged by Analyzer 0 % (0-5); Neutrophil # 6.18 X10^3/uL (2.7-7.7); Neutrophil % 63.4 % (47-70); Platelet Count 189 K/mm3 (150-450); RBC Distribution Width CV 13.5 % (11.6-14.6); RBC Distribution Width SD 48.4 fl (35.1-43.9); Red Blood Count 3.21 M/mm3 (4.6-6.2); White Blood Count 9.8 K/mm3 (4.4-11.0)
[2021-03-10 05:45] LABS: International Normalized Ratio 1.1; Prothrombin Time (Protime)PT. 13.9 SECONDS (11.7-14.9)
[2021-03-10 05:58] LABS: Anion Gap 11 (5-15); BUN 50 mg/dL (7-18); Calcium,Total 8.2 mg/dL (8.5-10.1); Chloride 99 mmol/L (98-107); Creatinine, Serum 7.16 mg/dL (0.70-1.30); EST Glomerular Filtration Rate 8 mL/min (>60); Est Glom Filt Rate - Afr Amer 10 mL/min (>60); Estimated Creatinine Clearance 10.75 ml/min; Glucose 90 mg/dL (74-106); Potassium 3.6 mmol/L (3.5-5.1); Sodium Level 133 mmol/L (136-145)
--- NOTE | 2021-03-10 09:18 | CASEMGMT ---
Addendum entered by Alyssa Carmen 03/10/21 11:13: SW placed another call to Mikel at [facility] and left message regarding referral. Original Note: Social Work Note SW placed a call to Mikel at [facility] and left message inquiring about referral. Per notes, pt's quarantine is completed 03/11/21. VIKASH updated Mikel at [facility] of this too. Plan: [facility] pending acceptance and pre-cert Alyssa Carmen CLAIM SPECIALIST, NUT DEHYDRATOR OPERATOR
[2021-03-10] MEDS: Dicyclomine 10 MG Capsule 20 MG PO (10:11)
[2021-03-10] MEDS: Folic Acid/Vitamin B Comp W-C 1 Capsule 1 CAP PO (10:12)
[2021-03-10] MEDS: Gabapentin 400 MG Capsule 800 MG PO (10:12)
[2021-03-10] MEDS: Atorvastatin Calcium 40 MG Tablet PO (10:12)
[2021-03-10] MEDS: Calcium Acetate 667 MG Capsule 2001 MG PO (10:13)
[2021-03-10] MEDS: Clopidogrel Bisulfate 75 MG Tablet PO (10:13)
[2021-03-10] MEDS: Pyridoxine HCl 100 MG Tablet PO (10:13)
[2021-03-10] MEDS: busPIRone 5 MG Tablet 10 MG PO (10:14)
[2021-03-10] MEDS: Ascorbic Acid 500 MG Tablet 1000 MG PO (10:14)
[2021-03-10] MEDS: Midodrine HCl 5 MG Tablet 10 MG PO (10:14)
[2021-03-10 10:30] LABS: Bedside Glucose 92 mg/dL (70-110)
[2021-03-10] MEDS: Insulin Lispro 100 UNIT/ML INSULN.PEN SC (11:50)
[2021-03-10 11:55] LABS: Bedside Glucose 250 mg/dL (70-110)
--- NOTE | 2021-03-10 13:00 | CASEMGMT ---
Social Work Note SW spoke with PT/OT, asked for pt to be evaluated for SNF. PT/OT to evaluate. SW still waiting for call back from [facility] regarding referral. Alyssa Carmen RUBY DEVELOPER, ART DEPARTMENT HEAD
--- NOTE | 2021-03-10 13:09 | CASEMGMT ---
KAMRON GEORGE called Dmitri at [facility], pt is unable to have dialysis on site in [place] or at [facility] until 03/19/2021. Updated [facility].
--- NOTE | 2021-03-10 13:20 | PCM.DC ---
Discharge Instructions Diet Discharge Diet: Renal Diet Activity Discharge Activity: Return to Normal Activity Dressing / Incision Call your doctor if you observe: - (ongoing dizziness. falls.) Follow Up Care Please Follow Up With: [facility] When: every Tuesdays, , Saturdays Test Results: Test results from this visit will be discussed in further detail at your follow-up appointment, if applicable. Discharge Plan Admission Admit Date/Time: 03/07/21 16:27 Primary Reason for Your Visit: orthostatic hypotension Attending Provider: Immanuel Ken Primary Care Provider: Yola Ng Consulting Providers: Lillian Acharya Discharge Orders/Prescriptions Prescriptions: New midodrine 5 mg Tablet See Rx Instructions .ROUTE .COMPLEX Qty: 20 RF: 0 Continued ascorbic acid (vitamin C) [Vitamin C] 1,000 MG tablet 1,000 mg PO DAILY RF: 0 venlafaxine [Effexor XR] 150 MG capsule 150 mg PO DAILY RF: 0 dicyclomine 20 MG tablet 20 mg PO TID RF: 0 buspirone 10 MG tablet 10 mg PO BID RF: 0 atorvastatin 40 MG tablet 40 mg PO DAILY RF: 0 pyridoxine (vitamin B6) 100 MG tablet 100 mg PO DAILY RF: 0 Humulin N NPH Insulin KwikPen 100 UNIT/ML insulin pen 12 units SQ QHS RF: 0 B complex with C 20-folic acid 1 CAPSULE capsule 1 capsule PO DAILY Qty: 30 RF: 0 warfarin 5 MG tablet 12.5 mg PO DINNER Qty: 0 RF: 0 gabapentin [Neurontin] 100 MG capsule 800 mg PO BID RF: 0 simethicone [Gas Relief (simethicone)] 80 MG tablet,chewable 80 mg PO TIDPC RF: 0 clopidogrel 75 mg tablet 75 mg PO DAILY RF: 0 glipizide 5 mg tablet 5 mg PO TID RF: 0 calcium acetate(phosphat bind) 667 mg capsule 2,001 mg PO TIDCM RF: 0 Discontinued furosemide 40 mg tablet 40 mg PO DAILY RF: 0 nifedipine 90 mg tablet extended release 24hr 90 mg PO QHS RF: 0 Referrals / Follow Up: Yola Ng MD [Primary Care Provider] - Within 2 Weeks Disposition Disposition (needs filled in before D/C Order can be placed): Home, Self Care
--- NOTE | 2021-03-10 13:29 | PCM.DC.SUM ---
Providers Date of Admission: 03/07/21 Primary Care Physician: Dr. Yola Ng MD Consultations 03/08/21 07:57 Consult: Nephrology Routine Consulting Provider: Lillian Acharya Reason for Consult: dialysis EMERGENT Consult: No MD Notified: Yes Date Notified: 03/08/21 Time Notified: 07:57 Method of Notification: Text Reason For Visit: DEBILITY, COVID 19 Diagnosis Discharge Diagnosis (1) COVID-19: Status: Acute Code(s): U07.1 - COVID-19 (2) Orthostatic hypotension: Status: Acute Code(s): I95.1 - Orthostatic hypotension Medications at Discharge Home Medications ascorbic acid (vitamin C) [Vitamin C] 1,000 mg PO DAILY 12/02/16 buspirone 10 mg PO BID 12/02/16 dicyclomine 20 mg PO TID 12/02/16 venlafaxine [Effexor XR] 150 mg PO DAILY 12/02/16 Humulin N NPH Insulin KwikPen 12 units SQ QHS 05/23/20 atorvastatin 40 mg PO DAILY 05/23/20 pyridoxine (vitamin B6) 100 mg PO DAILY 05/23/20 B complex with C 20-folic acid 1 capsule PO DAILY #30 capsule 06/01/20 warfarin 12.5 mg PO DINNER #0 06/01/20 gabapentin [Neurontin] 800 mg PO BID 06/13/20 simethicone [Gas Relief (simethicone)] 80 mg PO TIDPC 03/06/21 calcium acetate(phosphat bind) 2,001 mg PO TIDCM 03/07/21 clopidogrel 75 mg PO DAILY 03/07/21 glipizide 5 mg PO TID 03/07/21 midodrine See Rx Instructions .ROUTE .COMPLEX #20 tab 03/10/21 Hospital Course Procedures Dialysis Summary of Care Provided Minutes Spent on Discharge: 28 Hospital Course: 40-year-old male presents with dizziness and debility. Patient is found to be orthostatic hypotension of and nifedipine and furosemide have been discontinued. Patient was put on some midodrine while he was here and overall is feeling better. Those antihypertensives will continue to be held and midodrine will be changed over to dialysis days for the time being. 1. COVID 19. onset 03/02. Quarantine through 03/11. HDS vaccinated No need for treatment 2. Orthostatic hypotension DC nifedipine and furosemide Midodrine on dialysis days for now 3. ESRD continue HD per nephrology 4. DM2 fair control continue glipizide, NPH and SSI 5. Debility Original plan for SNF, but but now patient feeling better and would wish to go home and continue with outpatient therapy. Physical Exam Const alert Resp normal respiratory effort and no retractions Cardio regular rate, regular rhythm and S1 normal heart sound GI normal to inspection, nondistended, normoactive bowel sounds, soft to palpation, non-tender and non-distended Medical Records Data Medical Nutrition Assessment Dietitian: Malnutrition Criteria Met Start: 03/07/21 14:52 Freq: Status: Active Protocol: Document 03/07/21 14:52 MAYI (Rec: 03/07/21 14:52 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 Active Problem Recommendation Dietitian Recommendations/Changes Will continue diet as ordered Will provide 4 oz nepro cho steady (tyler) w/ meals for increased nutrition if consumed Weight / BMI Weight Weight: 141.022 kg Body Mass Index (BMI) 46.7 ABG / Lab / Microbiology Data Result Diagrams: 03/10/21 04:59 03/10/21 04:59 Laboratory: Laboratory Results - last 24 hr 03/09/21 11:42: POC Glucose 136 H 03/09/21 15:58: POC Glucose 127 H 03/09/21 23:01: POC Glucose 141 H 03/10/21 04:59: Sodium 133 L, Potassium 3.6, Chloride 99, Carbon Dioxide 23.0, Anion Gap 11, BUN 50 H, Creatinine 7.16 H, Estim Creat Clear Calc 10.75, Est GFR (MDRD) Af Amer 10 L, Est GFR (MDRD) Non-Af 8 L, BUN/Creatinine Ratio 7.0 L, Glucose 90, Calcium 8.2 L 03/10/21 04:59: WBC 9.8, RBC 3.21 L, Hgb 10.7 L, Hct 31.8 L, MCV 99.1 H, MCH 33.3 H, MCHC 33.6, RDW Std Deviation 48.4 H, RDW Coeff of Kassandra 13.5, Plt Count 189, MPV 11.0, Immature Gran % (Auto) 0.500, Neut % (Auto) 63.4, Lymph % (Auto) 22.4, [place] % (Auto) 9.6, Eos % (Auto) 3.9, Baso % (Auto) 0.2, Absolute Neuts (auto) 6.2, Absolute Lymphs (auto) 2.19, Nucleated RBC % 0 03/10/21 04:59: PT 13.9, INR 1.1 03/10/21 05:43: POC Glucose 92 03/10/21 11:48: POC Glucose 250 H D/C Instructions Discharge Diet: Renal Diet Call your doctor if you observe: - (ongoing dizziness. falls.) Please Follow Up With: [facility] When: every Tuesdays, , Saturdays Meaningful Use Info Meaningful Use Diagnoses (Choose all that apply): None applicable Discharge Plan Admission Admit Date/Time: 03/07/21 16:27 Primary Reason for Your Visit: orthostatic hypotension Attending Provider: Immanuel Ken Primary Care Provider: Yola Ng Consulting Providers: Lillian Acharya Instructions Additional Instructions / Restrictions: Self isolate for at least 10 days since symptoms began 03/02- AND at least one day (24 hours) have passed since resolution of fever without the use of fever-reducing agents AND improvement of symptoms (e.g., cough, shortness of breath) When around people in the same room, wear a face mask. Individuals also in the room should wear a mask. If possible, use a different bathroom and bedroom. Perform adequate hand hygiene. Avoid sharing dishes, glasses, etc. Discharge Orders/Prescriptions Prescriptions: New midodrine 5 mg Tablet See Rx Instructions .ROUTE .COMPLEX Qty: 20 RF: 0 Continued ascorbic acid (vitamin C) [Vitamin C] 1,000 MG tablet 1,000 mg PO DAILY RF: 0 venlafaxine [Effexor XR] 150 MG capsule 150 mg PO DAILY RF: 0 dicyclomine 20 MG tablet 20 mg PO TID RF: 0 buspirone 10 MG tablet 10 mg PO BID RF: 0 atorvastatin 40 MG tablet 40 mg PO DAILY RF: 0 pyridoxine (vitamin B6) 100 MG tablet 100 mg PO DAILY RF: 0 Humulin N NPH Insulin KwikPen 100 UNIT/ML insulin pen 12 units SQ QHS RF: 0 B complex with C 20-folic acid 1 CAPSULE capsule 1 capsule PO DAILY Qty: 30 RF: 0 warfarin 5 MG tablet 12.5 mg PO DINNER Qty: 0 RF: 0 gabapentin [Neurontin] 100 MG capsule 800 mg PO BID RF: 0 simethicone [Gas Relief (simethicone)] 80 MG tablet,chewable 80 mg PO TIDPC RF: 0 clopidogrel 75 mg tablet 75 mg PO DAILY RF: 0 glipizide 5 mg tablet 5 mg PO TID RF: 0 calcium acetate(phosphat bind) 667 mg capsule 2,001 mg PO TIDCM RF: 0 Discontinued furosemide 40 mg tablet 40 mg PO DAILY RF: 0 nifedipine 90 mg tablet extended release 24hr 90 mg PO QHS RF: 0 Referrals / Follow Up: Yola gN MD [Primary Care Provider] - Within 2 Weeks Disposition Disposition (needs filled in before D/C Order can be placed): Home, Self Care Charges/Coding Visit Charges Inpatient E&M: 99087 Disch Hosp
--- NOTE | 2021-03-10 13:34 | CASEMGMT ---
Addendum entered by Mariluz Borrego 03/10/21 13:39: Pt did not qualify for home O2 per therapy eval. Original Note: RN CM made aware per therapy that pt would like to go to outpt therapy at [facility] instead of SNF. TC to pt room, pt confirms this. Pt states he will drive himself to dialysis tomorrow. TC to Stephy at [facility] to make aware of pt dc this date. Script for therapy obtained.
--- NOTE | 2021-03-10 16:44 | CASEMGMT ---
Social Work Note Pt discharged home. SW placed a call to Mikel at [facility] and left message updating her pt went home and they can disregard referral. Alyssa Carmen LABORER STORES, REGISTERED MAIL CLERK
== END 2021-03-10 14:30 | disposition home or self-care (01) | DRG 312 ==
LOC: ED 12:06 → MS3 12:49
PROVIDERS: Nurse Practitioner Family; Admitting Provider Internal Medicine; Emergency Provider Student in an Organized Health Care Education/Training Program; PCP Internal Medicine
DX: I95.1 Orthostatic hypotension (principal); U07.1 COVID-19; N18.6 End stage renal disease; I13.2 Hypertensive heart and chronic kidney disease with heart failure and with stage 5 chronic kidney disease, or end stage renal disease; I48.20 Chronic atrial fibrillation, unspecified; I50.32 Chronic diastolic (congestive) heart failure; E11.22 Type 2 diabetes mellitus with diabetic chronic kidney disease; E11.42 Type 2 diabetes mellitus with diabetic polyneuropathy; Z99.2 Dependence on renal dialysis; E66.01 Morbid (severe) obesity due to excess calories; E11.51 Type 2 diabetes mellitus with diabetic peripheral angiopathy without gangrene; Z79.4 Long term (current) use of insulin; I48.91 Unspecified atrial fibrillation; S30.0XXA Contusion of lower back and pelvis, initial encounter; E78.00 Pure hypercholesterolemia, unspecified; S00.03XA Contusion of scalp, initial encounter; S00.01XA Abrasion of scalp, initial encounter; I25.10 Atherosclerotic heart disease of native coronary artery without angina pectoris; K21.9 Gastro-esophageal reflux disease without esophagitis; E87.6 Hypokalemia; R53.81 Other malaise; Z87.891 Personal history of nicotine dependence; F32.A Depression, unspecified; Z91.19 Patient's noncompliance with other medical treatment and regimen; Z86.718 Personal history of other venous thrombosis and embolism; Z79.01 Long term (current) use of 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; Z79.899 Other long term (current) drug therapy
CPT/HCPCS: 36415; 70450; 71045; 80048; 80053; 82962; 83735; 84100; 84484; 85025; 85610; 85730; 87426; 90937; 93005; 94762; 96372; 97161; 97166; 97802; 99251; 99284; 99285; A4216; G0257; G0463

== ENCOUNTER 2021-04-12 05:10 | Day surgery (SDC) | payer MEDICARE, SELFPAY ==
[2021-04-12] VITALS (8 sets, daily range): BP systolic 128–140; BP diastolic 63–88; PULSE 78–108; RESP 16–18; TEMP 36.6–37.2; O2SAT 96–100; BMI 48.6
[2021-04-12] MEDS: 0.45% Normal Saline 1,000 ML 15 ML IV (06:18)
--- NOTE | 2021-04-12 06:26 | PCM.HP.BLA ---
History and Physical Date of Admission: 04/12/21 Intake Visit Reasons: UPDATE H&P FOR FISTULAGRAM Chief Complaint: Update H&P for Fistulagram [employer] Dispatcher Required: No Is patient in pain?: No Allergies cephalexin Allergy (Verified 04/05/21 13:36) Hives Penicillins Allergy (Verified 04/05/21 13:36) Hives Medications ascorbic acid (vitamin C) [Vitamin C] 1,000 mg PO DAILY 12/02/16 [History Confirmed 04/05/21] buspirone 10 mg PO BID 12/02/16 [History Confirmed 04/05/21] dicyclomine 20 mg PO TID 12/02/16 [History Confirmed 04/05/21] venlafaxine [Effexor XR] 150 mg PO DAILY 12/02/16 [History Confirmed 04/05/21] Humulin N NPH Insulin KwikPen 12 units SQ QHS 05/23/20 [History Confirmed 04/05/21] atorvastatin 40 mg PO DAILY 05/23/20 [History Confirmed 04/05/21] pyridoxine (vitamin B6) 100 mg PO DAILY 05/23/20 [History Confirmed 04/05/21] B complex with C 20-folic acid 1 capsule PO DAILY #30 capsule 06/01/20 [Rx Confirmed 04/05/21] warfarin 12.5 mg PO DINNER #0 06/01/20 [Rx Confirmed 04/05/21] gabapentin [Neurontin] 800 mg PO BID 06/13/20 [History Confirmed 04/05/21] simethicone [Gas Relief (simethicone)] 80 mg PO TIDPC 03/06/21 [History Confirmed 04/05/21] calcium acetate(phosphat bind) 2,001 mg PO TIDCM 03/07/21 [History Confirmed 04/05/21] clopidogrel 75 mg PO DAILY 03/07/21 [History Confirmed 04/05/21] glipizide 5 mg PO TID 03/07/21 [History Confirmed 04/05/21] midodrine See Rx Instructions .ROUTE .COMPLEX #20 tab 03/10/21 [Rx Confirmed 04/05/21] PFSH Medical History (HFpEF) heart failure with preserved ejection fraction Acute exacerbation of CHF (congestive heart failure) [id number] kidney injury Anemia Anemia Anxiety Atrial fibrillation Cardiology follow-up encounter Chest pain CHF (congestive heart failure) Chronic kidney failure Chronic renal failure, 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 Colonization status Congestive heart failure (CHF) Coronary artery disease CPAP (continuous positive airway pressure) dependence Delayed wound healing Depression Dialysis catheter clot or failure Diastolic CHF, acute Dietary restriction Dupuytrens contracture DVT (deep venous thrombosis) Edema of left lower leg due to peripheral venous insufficiency Equinus contracture of left ankle ESRD (end stage renal disease) on dialysis Essential hypertension Former smoker Gastric reflux Hammer toe of left foot Hemodialysis patient High cholesterol History of DVT of lower extremity History of edema History of pain when walking History of renal disease History of stress test Hx of echocardiogram Loss of consciousness Loss of hearing Malnutrition Morbid obesity Other specified peripheral vascular diseases Pressure ulcer Problem with dialysis access Pulmonary hypertension Shortness of breath on exertion Skin tear Syncope Transfusion (red blood cell) associated hemochromatosis Trigger finger Type 2 diabetes mellitus Type 2 diabetes mellitus with diabetic polyneuropathy Ulcer of left lower extremity with fat layer exposed Wears glasses Surgical History History of arteriovenostomy for renal dialysis (~07/2020) History of carpal tunnel surgery of left wrist History of carpal tunnel surgery of right wrist History of tonsillectomy and adenoidectomy S/P carpal tunnel release S/P tonsillectomy Family History Mother Diabetes Heart disease Hypertension Social History Smoking Status: Former smoker alcohol intake: never HPI HPI HPI: MAREK RAMSAY, is a 60 M who presents to the office today for surgical consultation regarding difficulties with a arteriovenous hemodialysis fistula. The patient appeared to the office today without an appointment. The patient on his own had stopped Coumadin for 5 days. He had been previously scheduled for a left upper arm fistulogram but that was canceled as he contracted COVID-19. He was last seen in this office February 25, 2021. His previous intervention was December 18, 2020 where his left upper arm transposed cephalic vein to brachial artery AV fistula had multisegmental venous stenosis and was treated with a 7 x 2 Cutting Balloon angioplasty at 4 locations. He was apparently scheduled for fistulogram instructed to hold his Coumadin for atrial fibrillation is 3-day prior. Apparently a contact was made to his fish butcher who suggested he could hold his Coumadin for 5 days. Unbeknownst to us today the patient on his own stopped his Coumadin for 5 days. He thought he was having a procedure today when in actuality he had no procedure scheduled for today and no office appointment scheduled for today. He is right arm dominant. May 25, 2020 Reason For Study: AV Fistula Right Arm Left Arm Right Cephalic Vein at the wrist measures Left Cephalic Vein at the wrist measures 0.40 x 0.42 cm. 0.43 x 0.46 cm. Right Cephalic Vein in the forearm measures Left Cephalic Vein in the forearm measures 0.40 x 0.40 cm. 0.39 x 0.41 cm. Right Cephalic Vein below antecub measures IV noted at wrist cephalic vein. 0.34 x 0.36 cm. Mid forearm branch that measures 0.32 x 0.37 Right Cephalic Vein above antecub measures cm. 0.50 x 0.50 cm. Left Cephalic Vein below antecub measures Right Cephalic Vein mid bicep measures 0.48 0.37 x 0.37 cm. x 0.47 cm. Left Cephalic Vein above antecub measures Right Cephalic Vein at the shoulder measures 0.33 x 0.34 cm. 0.48 x 0.52 cm. Left Cephalic Vein at mid bicep measures Right Basilic Vein at the origin measures 0.29 x 0.30 cm. 0.53 x 0.55 cm. Left Cephalic Vein at the shoulder measures Right Basilic Vein mid bicep measures 0.45 x 0.40 x 0.36 cm. 0.45 cm. Basilic vein at origin measures 0.64 x 0.62 Right Basilic Vein above antecub measures cm. 0.50 x 0.48 cm. Basilic vein at bicep measures 0.49 x 0.50 Right Brachial artery measures 0.45 x 0.45 cm. cm with a velocity of 137.4 cm/sec. Basilic vein above antecub measures 0.42 x Right Radial artery measures 0.23 x 0.22 cm 0.41 cm. with a velocity of 139.5 cm/sec. Left Brachial artery measures 0.44 x 0.44 sm with a velocity of 152.5 cm/sec. Left Radial artery measures 0.23 x 0.23 cm with a velocity of 172.1 cm/sec. VL/Saphenous Vein Mapping, Bilat Interpretation Summary Dimensions of bilateral cephalic and basilic veins bilaterally IV is noted in a potential fistula vein--the cephalic vein of the left wrist. Increased velocity flow bilateral brachial and radial arteries. Ordering Physician: Lillian Acharya Referring Physician: Yola Ng M.D. Performed By: Alyssa Mcgrath RVT General General: Yes weight change; No appetite, fatigue, colon cancer, breast cancer or weakness HEENT HEENT: No difficulty swallowing, eye injury, eye surgery, swollen glands or hoarseness Endo Endocrine: Yes diabetes mellitus; No thyroid disease, thyroid cancer, Hair loss, heat intolerance or cold intolerance Skin Skin: No rash or changing moles Musc Musculoskeletal: No back problems, arthritis, rheumatoid arthritis, gout or joint pain Psych Psychiatric: Yes depression; No anxiety or hearing voices Resp Respiratory: No shortness of breath, Yes sleep apnea, No cough, No COPD, No asthma, No emphysema and No wheezing Gastro Gastrointestinal: No abdominal pain, No nausea or vomiting, No diarrhea, No constipation, No blood in stool, No acid reflux, No hemorrhoids, No ulcers, No gallbladder problem and No black,tarry stools Robby Hematologic: Yes blood thinners, No blood disorders, No bleeding, Yes anemia and Yes blood clots Neuro Neurologic: No system reviewed and no additional complaints, except as documented, No as per HPI, No abnormal gait, No abnormal hearing, No abnormal movements, No abnormal speech, No behavioral changes, No burning sensations, No confusion, No convulsions, No disequilibrium, No dizziness, No localized weakness, No frequent falls, No headache(s), No lack of coordination, No loss of vision, No memory loss, Yes numbness, No other visual disturbances, No radicular pain, No restless legs, No sensory deficit, No syncope, Yes tingling, No tremor(s), No weakness and No other Exam Const General: cooperative, comfortable and no acute distress Nutritional Appearance: obese morbidly obese [facility] Head: normal to inspection Eyes General: appearance normal, both eyes and all related structures Neck Neck: normal visual inspection Chest Other: Increased anterior posterior diameter Tunneled dialysis catheters right anterior chest Resp Effort & Inspection: normal respiratory effort Auscultation: clear to auscultation bilaterally Cardio Rate: regular rate Rhythm: regular rhythm GI Other: Soft, overweight, nontender Skin Other: Skin appears to be intact particular the upper extremities Neuro General: patient alert and patient awake Extrem Other: Left upper extremity well-healed longitudinal incision from transposition of the upper arm cephalic vein to brachial artery arteriovenous fistula. No pulse or thrill or bruit. I performed ultrasound inspection and the entire length of the fistula appears to be thrombosed. The left forearm cephalic vein is intact and communicates through the median cubital vein to the left upper arm basilic vein. There is mild 1+ swelling of the entire left upper extremity. Nontender nonpitting. Radial pulses very difficult to feel Right upper extremity on ultrasound inspection demonstrates a patent and compressible cephalic vein of the forearm of appropriate depth. Because of patient body habitus the radial artery is difficult to palpate. On ultrasound it appears to be patent though does have calcification throughout. Psych Appearance: grossly normal Assessment and Plan Assessment and Plan (1) Problem with dialysis access: Qualifiers: Encounter type: initial encounter Qualified Code(s): T82.898A - Other specified complication of vascular prosthetic devices, implants and grafts, initial encounter Plan Details Additional Comments: The patient tells me the left upper arm transposed cephalic vein to brachial artery AV fistula has not been used by [facility] [place] for 2 weeks. He is not personally aware of 1 it seems to have a pulse and thrill. In addition he took himself off of Coumadin 5 days ago. Somehow he was under the interpretation that he had a surgical appointment today for an intervention. He was not on our interventional list nor was he on our office appointment list. As he showed up I agreed to see him. His left upper arm AV fistula is completely thrombosed. There is likely now has been for an extended period of time additionally complicated by his lack of coumadinization. I do not believe that I can get this recanalized. He has swelling of the left upper extremity of unknown etiology. With all of that in mind I believe that it is most reasonable to offer him an attempt at a right forearm radiocephalic arteriovenous hemodialysis fistula. The vein appears to be adequate. It is of note that the right radial artery does have visualized calcification and great care will need to be taken in selecting a possible anastomotic site. Body habitus with a BMI of 48.8 complicates treatment. I have instructed him to resume his Coumadin therapy immediately. I have instructed him that prior to his surgical procedure I will only need him off his Coumadin for 3 days. We will schedule and proceed at his discretion. I am well aware that everyone is interested in getting his right chest catheters removed. It appears that his Covid-19 causing a delay in intervention has certainly complicated his presentation. Copy: Dr. Yola Ng and Dr. Lillian Deal M.D., F.A.C.S.
--- NOTE | 2021-04-12 07:26 | EX.PCM.DISCH ---
Discharge Instructions Procedure Fistula Diet Discharge Diet: Renal Diet Activity Discharge Activity: May Not Drive (for 2-3 days or while taking narcotic pain medications.), May Shower and May Take a Tub Bath (in 5 days.) Lifting Restrictions: 5 pounds Keep extremity elevated above heart level: - (Keep arm elevated above the heart level for 3 days.) Dressing / Incision Call your doctor if your incision/area has: Continuous Slow Oozing, Sudden Increased Bleeding (apply pressure and call your doctor.), Increased Pain/ Swelling, Increased Redness and Foul Smelling Discharge Call your doctor if you observe: Fever of 101 or Higher Suture Line Care: Avoid Pulling/Pushing and Avoid Pinching/Bending Cleanse incision/area with: Keep Dressing Clean & Dry Additional Dressing/Incision Instructions:: Change or remove dressing in one day. May protect with a gauze bandaid. Follow Up Care Please Follow Up With: Willem Deal MD When: Call [phone] to make an appointment for suture removal and follow up in 1 week. Test Results: Test results from this visit will be discussed in further detail at your follow-up appointment, if applicable. Discharge Plan Admission Attending Provider: Willem Deal Primary Care Provider: Yola Ng Discharge Orders/Prescriptions Prescriptions: No Action ascorbic acid (vitamin C) [Vitamin C] 1,000 MG tablet 1,000 mg PO DAILY RF: 0 venlafaxine [Effexor XR] 150 MG capsule 150 mg PO DAILY RF: 0 dicyclomine 20 MG tablet 20 mg PO TID RF: 0 buspirone 10 MG tablet 10 mg PO BID RF: 0 atorvastatin 40 MG tablet 40 mg PO DAILY RF: 0 pyridoxine (vitamin B6) 100 MG tablet 100 mg PO DAILY RF: 0 Humulin N NPH Insulin KwikPen 100 UNIT/ML insulin pen 12 units SQ QHS RF: 0 B complex with C 20-folic acid 1 CAPSULE capsule 1 capsule PO DAILY Qty: 30 RF: 0 warfarin 5 MG tablet 12.5 mg PO DINNER Qty: 0 RF: 0 gabapentin [Neurontin] 100 MG capsule 800 mg PO BID RF: 0 simethicone [Gas Relief (simethicone)] 80 MG tablet,chewable 80 mg PO TIDPC RF: 0 glipizide 5 mg tablet 5 mg PO TID RF: 0 calcium acetate(phosphat bind) 667 mg capsule 2,001 mg PO TIDCM RF: 0 Other Ambulatory Orders: Basic Metabolic Profile (BMP) (Routine) Timeframe: [id number] Facility: [facility] - Location: Laboratory Ordered By: Dr. Willem Deal CBC-Complete Blood Cnt No Diff (Routine) Timeframe: [id number] Facility: [facility] - Location: Laboratory Ordered By: Dr. Willem Deal
[2021-04-12] MEDS: Heparin Injection (Vial) 5,000 UNIT/ML VIAL 5000 UNIT (07:30)
[2021-04-12 08:11] LABS: Bedside Glucose 202 mg/dL (70-110)
[2021-04-12] MEDS: Bupivacaine Mpf 0.5% 30 ML VIAL (08:30)
[2021-04-12] MEDS: Lidocaine 1% (20 ml mdv) 20 ML Vial (08:30)
--- NOTE | 2021-04-12 08:40 | OP.PCM_ITS ---
Problems Associated Problem List Diagnoses (1) Problem with dialysis access: Report of Operation Date of Procedure: 04/12/21 Pre-Operative Diagnosis: Failed left upper extremity arteriovenous hemodialysis fistula Post-Operative Diagnosis: Same Surgery/Procedure Performed:: Right forearm radiocephalic arteriovenous hemodialysis fistula creation Description of Surgical Findings:: Timeout informed consent was obtained 60-year-old female was taken down from placement the table. Clean procedure. No antibiotics. Underwent monitored anesthesia care local anesthetic. 1% lidocaine mixed 50-50 with 0.5% Marcaine was used as a local anesthetic. A total of 9 cc was used. I performed ultrasound mapping of the cephalic vein and the radial artery. Local was instilled. An oblique incision was made in the radial aspect of the right wrist. Sharp and blunt dissection was used to dissect out the cephalic vein. It was ink marked on the anterior surface. Sharp and blunt dissection used to identify the radial artery. It was markedly thick-walled and calcified. Vesseloops were placed. The patient then received 10,000 units of heparin. The cephalic vein was ligated distally with a Hemoclip. It was spatulated length. A 11 blade was used to make an arteriotomy which was extended with Ford scissors. A end-to-side venous to arterial anastomosis was created with a running 7-0 Prolene. Prior to completion I placed Ted dilators to assure that the proximal arterial inflow was adequate. The largest dilator I could place was 2 mm. The anastomosis was completed. Good flow was felt to been achieved. Doppler signal demonstrated good flow in the vein was palpable. Hemostasis was intact. The wound was closed with a deep layer of interrupted 3- 0 Vicryl and then a running subicular 4-0 Monocryl. Steri-Strips Telfa tape dressings applied. Sponge and instrument and needle counts were reported to the surgeon to be correct. Specimens none. Drains none. Blood loss minimal. The patient had a viable hand. He was taken to the recovery area in satisfactory condition without from complication Willem Deal M.D., F.A.C.S. Surgeon: Willem Deal Type of Anesthesia: Local MAC Anesthesiologist: Lenin Morris
== END 2021-04-12 23:59 | disposition home or self-care (01) ==
LOC: SDC 05:10 → AC 05:45
PROVIDERS: PCP Internal Medicine; Referring Provider Surgery; Visit Provider Surgery
PROC: (CPT 36818; principal; 2021-04-12 07:15)
DX: I13.2 Hypertensive heart and chronic kidney disease with heart failure and with stage 5 chronic kidney disease, or end stage renal disease (principal); E11.51 Type 2 diabetes mellitus with diabetic peripheral angiopathy without gangrene; I50.32 Chronic diastolic (congestive) heart failure; I27.20 Pulmonary hypertension, unspecified; E11.22 Type 2 diabetes mellitus with diabetic chronic kidney disease; E11.42 Type 2 diabetes mellitus with diabetic polyneuropathy; N18.6 End stage renal disease; E66.01 Morbid (severe) obesity due to excess calories; Z68.42 Body mass index [BMI] 45.0-49.9, adult; Z68.41 Body mass index [BMI] 40.0-44.9, adult; I87.2 Venous insufficiency (chronic) (peripheral); I25.10 Atherosclerotic heart disease of native coronary artery without angina pectoris; Z87.891 Personal history of nicotine dependence; E78.00 Pure hypercholesterolemia, unspecified; Z79.84 Long term (current) use of oral hypoglycemic drugs; Z79.899 Other long term (current) drug therapy; Z86.718 Personal history of other venous thrombosis and embolism; K21.9 Gastro-esophageal reflux disease without esophagitis; F32.A Depression, unspecified; Z86.16 Personal history of COVID-19; Z91.14 Patient's other noncompliance with medication regimen
CPT/HCPCS: 36818; 01844; 82962

== ENCOUNTER 2021-04-16 19:31 | Observation (INO) | payer MEDICARE, SELFPAY ==
[2021-04-16 19:34] VITALS: BP 146/123; PULSE 112; RESP 16; TEMP 36.6; O2SAT 98; BMI 48.6
--- NOTE | 2021-04-16 19:38 | EKG12_ITS ---
Test Reason : A FIB Blood Pressure : / mmHG Vent. Rate : 121 BPM Atrial Rate : 129 BPM P-R Int : 000 ms QRS Dur : 074 ms QT Int : 324 ms P-R-T Axes : 000 061 018 degrees QTc Int : 460 ms Atrial fibrillation Abnormal ECG Confirmed by DIANA HARVEY, LAURA ([id number]), fashion editor KARRI AMIN ([id number]) on 04/19/2021 12:14:49 PM Referred By: Karlos Man Confirmed By:LAURA ORTIZ MD
[2021-04-16 20:03] LABS: Absolute Lymphocyte Count 2.44 X10^3/uL (0.83-4.51); Absolute Neutrophil Count 5.7 X10^3/uL (2.0-7.7); Basophil# 0.02 X10^3/uL; Basophil% 0.2 % (0-1); Eosinophils% 1.1 % (0-5); Hematocrit 33.7 % (40-54); Hemoglobin 11.4 g/dL (13.0-16.5); Lymphocyte # 2.44 X10^3/ul (0.83-4.51); Lymphocyte % 26.3 % (19-41); Mean Corp Hgb Conc 33.8 g/dL (32-36); Mean Corpuscular Volume 97.7 fL (80-94); Mean Platelet Vol. 10.6 fl (6.2-12.0); Monocyte# 0.99 X10^3/uL; Monocyte% 10.7 % (0-10); NRBC Flagged by Analyzer 0 % (0-5); Neutrophil % 61.4 % (47-70); Platelet Count 234 K/mm3 (150-450); RBC Distribution Width CV 15.4 % (11.6-14.6); RBC Distribution Width SD 53.3 fl (35.1-43.9); Red Blood Count 3.45 M/mm3 (4.6-6.2); White Blood Count 9.3 K/mm3 (4.4-11.0)
[2021-04-16 20:14] LABS: International Normalized Ratio 1.6; Prothrombin Time (Protime)PT. 18.2 SECONDS (11.7-14.9)
[2021-04-16 20:24] LABS: ALB/GLOB Ratio 0.7 RATIO (0.9-2.4); AST(SGOT) 24 U/L (15-37); Alanine Aminotransfer ALT/SGPT 24 U/L (16-61); Albumin, Serum 3.5 g/dL (3.2-5.0); Alkaline Phosphatase 69 U/L (45-117); Anion Gap 14 (5-15); BUN 41 mg/dL (7-18); BUN/Creat Ratio 4.8 RATIO (10-20); Calcium,Total 9.4 mg/dL (8.5-10.1); Chloride 94 mmol/L (98-107); Creatinine, Serum 8.63 mg/dL (0.70-1.30); EST Glomerular Filtration Rate 7 mL/min (>60); Est Glom Filt Rate - Afr Amer 8 mL/min (>60); Estimated Creatinine Clearance 8.92 ml/min; Globulin 4.9 g/dL (2.2-4.2); Glucose 137 mg/dL (74-106); Potassium 4.1 mmol/L (3.5-5.1); Protein, Total 8.4 g/dL (6.4-8.2); Sodium Level 134 mmol/L (136-145)
[2021-04-16 20:52] VITALS: BP 138/88; PULSE 87; RESP 16; O2SAT 100; O2SAT 99
--- NOTE | 2021-04-16 21:50 | EDS_ITS ---
HPI History of Present Illness Chief Complaint: Syncope Informant: patient Onset/Context/Timing Onset: Today Current Severity: Mild Maximum Severity: Mild Narrative Narrative: 60-year-old male extensive past medical history of CHF, A. fib, DVTs, diabetes, CKD that receives dialysis. He has dialysis Monday and Monday and had a full run yesterday. He is anticoagulated on Coumadin. He denies any chest pain or headache. Denies any injuries from the syncopal events. 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 Colonization status Congestive heart failure (CHF) Coronary artery disease COVID CPAP (continuous positive airway pressure) dependence Delayed wound healing Depression Dialysis catheter clot or failure Diastolic CHF, acute Dietary restriction Dupuytrens contracture DVT (deep venous thrombosis) Edema of left lower leg due to peripheral venous insufficiency Equinus contracture of left ankle ESRD (end stage renal disease) on dialysis Former smoker Gastric reflux Hammer toe of left foot Hemodialysis patient High cholesterol History of DVT of lower extremity History of edema History of IBS History of pain when walking History of renal disease History of stress test Hx of echocardiogram Insulin dependent diabetes mellitus Loss of consciousness Loss of hearing Malnutrition Morbid obesity Other specified peripheral vascular diseases Pressure ulcer Problem with dialysis access Pulmonary hypertension Shortness of breath on exertion Skin tear Syncope Transfusion (red blood cell) associated hemochromatosis Trigger finger Type 2 diabetes mellitus Type 2 diabetes mellitus with diabetic polyneuropathy Ulcer of left lower extremity with fat layer exposed Wears glasses Home Medications ascorbic acid (vitamin C) [Vitamin C] 1,000 mg PO DAILY 12/02/16 [History Last Taken Unknown] buspirone 10 mg PO BID 12/02/16 [History Last Taken 07/22/20] dicyclomine 20 mg PO TID 12/02/16 [History Last Taken Unknown] venlafaxine [Effexor XR] 150 mg PO DAILY 12/02/16 [History Last Taken Unknown] Humulin N NPH Insulin KwikPen 12 units SQ QHS 05/23/20 [History Last Taken Unknown] atorvastatin 40 mg PO DAILY 05/23/20 [History Last Taken 07/22/20] pyridoxine (vitamin B6) 100 mg PO DAILY 05/23/20 [History Last Taken Unknown] B complex with C 20-folic acid 1 capsule PO DAILY #30 capsule 06/01/20 [Rx Last Taken Unknown] warfarin 12.5 mg PO DINNER #0 06/01/20 [Rx Last Taken 04/08/21] gabapentin [Neurontin] 800 mg PO BID 06/13/20 [History Last Taken 07/22/20] simethicone [Gas Relief (simethicone)] 80 mg PO TIDPC 03/06/21 [History Last Taken Unknown] calcium acetate(phosphat bind) 2,001 mg PO TIDCM 03/07/21 [History Last Taken Unknown] glipizide 5 mg PO TID 03/07/21 [History Last Taken Unknown] hydrocodone-acetaminophen 1 tab PO Q6H PRN 2 Days #5 tab 04/12/21 [Rx Last Taken Unknown] Allergy/AdvReac Type Severity Reaction Status Date / Time cephalexin Allergy Hives Verified 04/16/21 19:37 Penicillins Allergy Hives Verified 04/16/21 19:37 Family History Mother Diabetes Heart disease Hypertension Surgical History History of arteriovenostomy for renal dialysis (~07/2020) History of carpal tunnel surgery of left wrist History of carpal tunnel surgery of right wrist History of colonoscopy History of surgery History of tonsillectomy and adenoidectomy Social History Smoking Status: Former smoker alcohol intake: never ROS ROS ED ROS Narrative Syncope. Denies nausea vomiting or diarrhea. Denies fever chills. Denies melena. Review of Systems ROS Unobtainable: Denies due to encephalopathy Constitutional Constitutional ED: Denies chills or fever(s) Eyes Eyes: Denies change in vision ENT ENT ED: Denies ear pain or rhinorrhea Cardiovascular Cardiovascular: Reports palpitations and racing heartbeat; Denies chest pain Respiratory/Chest Respiratory/Chest: Denies cough or dyspnea Gastrointestinal Gastrointestinal: Denies abdominal pain, diarrhea, melena, nausea or vomiting Genitourinary Genitourinary ED: Denies dysuria Musculoskeletal Musculoskeletal: Denies myalgias Integumentary Denies rash Neurologic Neurologic: Denies headache(s) Psychiatric Psychiatric: Denies depression Endocrine Endocrinology: Denies polyuria Allergic/Immunologic Allergic/Immunologic ED: Denies urticaria EXAM Physical Exam Narrative Exam Narrative: Middle-aged male. No acute distress. Vital signs stable. He is tachycardic in A. fib on the monitor. H EENT exam unremarkable. Atraumatic. Pupils round reactive light. Neck nontender. Lungs clear to auscultation. H eart irregularly irregular A. fib rate about 115. Chest nontender. Abdomen soft nontender. Pelvic girdle intact. Moving all 4 extremities. Neurologically is awake alert with no focal motor deficits. Const Vital Signs: 04/16/21 19:34 04/16/21 20:52 04/16/21 20:53 Temperature 97.8 F Temperature Source Temporal Pulse Rate 112 H 87 Pulse Rate [Lying] Pulse Rate [Sitting] Pulse Rate [Standing] Respiratory Rate 16 16 Respiratory Effort Normal Respiratory Pattern Normal Blood Pressure 146/123 H 138/88 H Blood Pressure [Lying] Blood Pressure [Sitting] Blood Pressure [Standing] Blood Pressure Mean 130 104 Blood Pressure Mean [Lying] Blood Pressure Mean [Sitting] Blood Pressure Mean [Standing] Pulse Ox 98 100 Oxygen Delivery Method Room Air Room Air 04/16/21 21:54 04/16/21 22:00 Temperature Temperature Source Pulse Rate 56 L Pulse Rate [Lying] 99 Pulse Rate [Sitting] 104 H Pulse Rate [Standing] 104 H Respiratory Rate 16 Respiratory Effort Respiratory Pattern Blood Pressure 138/68 H Blood Pressure [Lying] 141/72 H Blood Pressure [Sitting] 144/88 H Blood Pressure [Standing] 117/94 H Blood Pressure Mean 91 Blood Pressure Mean [Lying] 95 Blood Pressure Mean [Sitting] 106 Blood Pressure Mean [Standing] 101 Pulse Ox 100 Oxygen Delivery Method Room Air Positive well nourished, well developed and obese; Negative for cachectic, contractures or unkempt General Appearance ED: well developed and NAD; Negative for unkempt, cachectic, contractures, cyanotic, diaphoretic or pallor Nutritional Appearance: obese; Negative for cachectic HEENT Reports moist mucous membranes Negative for trauma or tenderness Eyes PERRL and EOMs intact bilaterally Neck no lymphadenopathy, supple and no JVD General: Negative for tenderness Chest Wall inspection of chest normal and palpation of chest normal Resp normal respiratory effort and clear to auscultation bilaterally Effort and Inspection: Negative for pain with movement Auscultation: Negative for rales, rhonchi or wheezes Cardio no murmurs; Negative for regular rate or regular rhythm Rate: tachycardic GI normal to inspection, nondistended, normoactive bowel sounds, non-tender, non- distended and no masses Auscultation: normoactive bowel sounds Palpation: soft; Negative for tender or rebound tenderness present Back/Spine no CVA tenderness General Back: Negative for CVA tenderness Cervical Spine: Negative for cervical spine tenderness Thoracic Spine / Upper Back: Negative for thoracic spinal tenderness or paraspinal muscle tenderness Lumbar Spine / Lower Back: Negative for lumbar spinal tenderness Extremity normal to inspection General Extremety ED: Negative for edema or tenderness General Extremity: Negative for edema Neuro oriented x3 Sensorium / Orientation: alert and orientation impaired; Negative for lethargic or stuporous Motor Exam: strength 5/5 throughout Psych mental status grossly normal Appearance: Negative for unkempt Attitude: No agitated Mood & Affect: Negative for depressed or tearful Skin no rashes or lesions noted and no wounds General Skin Exam: Negative for jaundice or pallor MDM MDM MDM Narrative Medical decision making narrative: 60-year-old male extensive past medical history with syncopal events. Repeat exam patient is doing well at 10:55 PM. Lab Data Attestation: I reviewed the patient's lab results. Lab results narrative: CBC White count 9.3. H&H 11.4 and 33. PT/INR of 18.2 and 1.6. Electrolytes show sodium 134. Gap of 14. BUN and creatinine of 41 and 8.6 he is on dialysis. Glucose 137. Liver enzymes unremarkable. Troponin is normal. Labs: Laboratory Results - last 24 hr 04/16/21 04/16/21 04/16/21 19:54 19:54 19:54 WBC 9.3 RBC 3.45 L Hgb 11.4 L Hct 33.7 L MCV 97.7 H MCH 33.0 H MCHC 33.8 RDW Std Deviation 53.3 H RDW Coeff of Kassandra 15.4 H Plt Count 234 MPV 10.6 Immature Gran % (Auto) 0.300 Neut % (Auto) 61.4 Lymph % (Auto) 26.3 Grundy % (Auto) 10.7 H Eos % (Auto) 1.1 Baso % (Auto) 0.2 Absolute Neuts (auto) 5.7 Absolute Lymphs (auto) 2.44 Nucleated RBC % 0 PT 18.2 H INR 1.6 Sodium 134 L Potassium 4.1 Chloride 94 L Carbon Dioxide 26.0 Anion Gap 14 BUN 41 H Creatinine 8.63 H* Estim Creat Clear Calc 8.92 Est GFR (MDRD) Af Amer 8 L Est GFR (MDRD) Non-Af 7 L BUN/Creatinine Ratio 4.8 L Glucose 137 H Calcium 9.4 Total Bilirubin 0.50 AST 24 ALT 24 Alkaline Phosphatase 69 Troponin I High Sens Total Protein 8.4 H Albumin 3.5 Globulin 4.9 H Albumin/Globulin Ratio 0.7 L 04/16/21 19:54 WBC RBC Hgb Hct MCV MCH MCHC RDW Std Deviation RDW Coeff of Kassandra Plt Count MPV Immature Gran % (Auto) Neut % (Auto) Lymph % (Auto) Grundy % (Auto) Eos % (Auto) Baso % (Auto) Absolute Neuts (auto) Absolute Lymphs (auto) Nucleated RBC % PT INR Sodium Potassium Chloride Carbon Dioxide Anion Gap BUN Creatinine Estim Creat Clear Calc Est GFR (MDRD) Af Amer Est GFR (MDRD) Non-Af BUN/Creatinine Ratio Glucose Calcium Total Bilirubin AST ALT Alkaline Phosphatase Troponin I High Sens 13 Total Protein Albumin Globulin Albumin/Globulin Ratio Radiography Chest X-Ray - ED: 1 View, Read by ED Physician, Heart, Lungs, Mediastinum, Bony Structures, No Acute Disease and Chronic Changes Diagnostic Testing: Clinical Impression(s) from Imaging Studies Chest X-Ray 04/16/21 21:58 IMPRESSION: 1. No radiographic evidence of acute cardiopulmonary disease. Electronically Signed: Medardo Mccallum DO at 23:28 EST , Right-sided Vas-Cath. Chest x-ray interpreted by myself. Otherwise no acute process. No infiltrate. Single view portable chest x-ray. Rhythm Strip Rhythm Strip: A-fib Rate: 121 Ectopy: None EKG Initial EKG: Attestation: I personally reviewed and interpreted this EKG as follows: Interpretation: No Acute Injury Pattern and Atrial Fibrillation Comments: Atrial fibrillation rate of 121. Abdomen ventricular rate. No signs of OK nor ischemia. Unchanged from prior. Prior EKG tracings: available for review Prior: Unchanged Discharge Plan Dx/Rx/DC Orders Clinical Impression: Syncope, Atrial fibrillation with RVR, History of diabetes mellitus, History of renal dialysis Disposition Disposition: Acute Care Hospital [facility]
[2021-04-16 21:54] VITALS: BP 117/94; BP 141/72; BP 144/88; PULSE 104; PULSE 99
--- NOTE | 2021-04-16 21:58 | RAD_ITS ---
INDICATION: syncope EXAMINATION/TECHNIQUE: X-RAY - XR Chest 1 View COMPARISON: None. FINDINGS: LINES/DEVICES: Right internal jugular, large bore, dual-lumen catheter at the tip at the cavoatrial junction. LUNGS: Symmetric normal lung volumes. No airspace opacity or abnormal interstitial pattern. No nodule or mass. No pleural effusion or pneumothorax. MEDIASTINUM AND CARDIOVASCULAR STRUCTURES: Normal size and contour of the cardiomediastinal silhouette. No evidence of pulmonary vascular congestion. BONES AND SOFT TISSUES: No abnormality within limits of the exam. RAD/Chest 1 View (Portable) IMPRESSION: 1. No radiographic evidence of acute cardiopulmonary disease. Electronically Signed: Medardo Mccallum DO at 23:28 EST ,
[2021-04-16 22:00] VITALS: BP 138/68; PULSE 56; RESP 16; O2SAT 100
[2021-04-16 22:01] LABS: Troponin-I HS 13 pg/mL (3.0-78.0)
--- NOTE | 2021-04-16 23:41 | HP.PCM.HOS_ITS ---
HPI - General General Date of Admission: 04/16/21 HPI Narrative MAREK RAMSAY, is a 60 M with a significant history of heart failure with preserved ejection fraction; atrial fibrillation end-stage renal disease on dialysis who presents with syncope. Patient passed out 2 times a day before presentation and on the day of presentation he passed out 1 time. He reported that at one time he was drinking at his kitchen the next thing he remembers he was on the floor. He denies any prodromal symptoms with his syncope. At the emergency department patient was found to have A. fib with ventricular rate going from the 120s to 50s. His A. fib is not new Of note patient reported having COVID in February 2020. At that time he had about 5 syncopal episode. Syncopal episode at time was attributed to hypoxia. 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 Colonization status Congestive heart failure (CHF) Coronary artery disease COVID CPAP (continuous positive airway pressure) dependence Delayed wound healing Depression Dialysis catheter clot or failure Diastolic CHF, acute Dietary restriction Dupuytrens contracture DVT (deep venous thrombosis) Edema of left lower leg due to peripheral venous insufficiency Equinus contracture of left ankle ESRD (end stage renal disease) on dialysis Former smoker Gastric reflux Hammer toe of left foot Hemodialysis patient High cholesterol History of DVT of lower extremity History of edema History of IBS History of pain when walking History of renal disease History of stress test Hx of echocardiogram Insulin dependent diabetes mellitus Loss of consciousness Loss of hearing Malnutrition Morbid obesity Other specified peripheral vascular diseases Pressure ulcer Problem with dialysis access Pulmonary hypertension Shortness of breath on exertion Skin tear Syncope Transfusion (red blood cell) associated hemochromatosis Trigger finger Type 2 diabetes mellitus Type 2 diabetes mellitus with diabetic polyneuropathy Ulcer of left lower extremity with fat layer exposed Wears glasses Home Medications ascorbic acid (vitamin C) [Vitamin C] 1,000 mg PO DAILY 12/02/16 [History Last Taken Unknown] buspirone 10 mg PO BID 12/02/16 [History Last Taken 07/22/20] dicyclomine 20 mg PO TID 12/02/16 [History Last Taken Unknown] venlafaxine [Effexor XR] 150 mg PO DAILY 12/02/16 [History Last Taken Unknown] Humulin N NPH Insulin KwikPen 12 units SQ QHS 05/23/20 [History Last Taken Unknown] atorvastatin 40 mg PO DAILY 05/23/20 [History Last Taken 07/22/20] pyridoxine (vitamin B6) 100 mg PO DAILY 05/23/20 [History Last Taken Unknown] B complex with C 20-folic acid 1 capsule PO DAILY #30 capsule 06/01/20 [Rx Last Taken Unknown] warfarin 12.5 mg PO DINNER #0 06/01/20 [Rx Last Taken 04/08/21] gabapentin [Neurontin] 800 mg PO BID 06/13/20 [History Last Taken 07/22/20] simethicone [Gas Relief (simethicone)] 80 mg PO TIDPC 03/06/21 [History Last Taken Unknown] calcium acetate(phosphat bind) 2,001 mg PO TIDCM 03/07/21 [History Last Taken Unknown] glipizide 5 mg PO TID 03/07/21 [History Last Taken Unknown] hydrocodone-acetaminophen 1 tab PO Q6H PRN 2 Days #5 tab 04/12/21 [Rx Last Taken Unknown] Allergy/AdvReac Type Severity Reaction Status Date / Time cephalexin Allergy Hives Verified 04/16/21 19:37 Penicillins Allergy Hives Verified 04/16/21 19:37 Family History Mother Diabetes Heart disease Hypertension Surgical History History of arteriovenostomy for renal dialysis (~07/2020) History of carpal tunnel surgery of left wrist History of carpal tunnel surgery of right wrist History of colonoscopy History of surgery History of tonsillectomy and adenoidectomy Social History Smoking Status: Former smoker alcohol intake: never ROS ROS Narrative Constitutional: Denies fever, chills, fatigue, anorexia and change in weight Eyes: Denies blurry vision, change in eye color, change in vision, discharge from eye(s), double vision, erythema, eye pain, loss of vision or other HEENT: Denies abnormal hearing, dysphagia, ear pain, epistaxis, headache(s), hearing loss, nasal congestion, nasal discharge, post nasal drip, sinus pressure, sore throat or other Cardiovascular: Denies chest pain or palpitations. Denies dyspnea on exertion, orthopnea and paroxysmal nocturnal dyspnea Respiratory/Chest: Denies cough, excessive phlegm production, shortness of b reath with exertion and wheezing Gastrointestinal: Denies abdominal pain, coffee ground emesis, constipation, diarrhea, dyspepsia, hematemesis, hematochezia, loose stools, melena, nausea, vomiting or other Genitourinary: Denies burning urination, difficulty urinating, dysuria, hematuria, nocturia, urinary frequency, urinary hesitancy, urinary incontinence, urinary urgency or other Musculoskeletal: Denies arthralgias, back pain, joint pain, joint stiffness, joint swelling, myalgias, neck pain or other Neurologic: Denies abnormal gait, abnormal speech, confusion, disequilibrium, dizziness, focal weakness, headache(s), numbness, paresthesias, seizure-like activity, seizures, syncope, tingling, tremor(s) or other Psychiatric: Denies anxiety, depression, homicidal ideation, suicidal ideation or other Endocrinology: Denies change in body appearance, cold intolerance, excessive sweating, heat intolerance, polydipsia, polyuria or other Hematologic/Lymphatic: Denies anemia, easy bleeding, easy bruising, lymphadenopathy or other Integumentary: Denies rashes Allergic/Immunologic: Denies rhinitis, hives, eczema, asthma or other Vital Signs Vital Signs Vital Signs: 04/16/21 19:34 04/16/21 20:52 04/16/21 20:53 Temperature 97.8 F Temperature Source Temporal Pulse Rate 112 H 87 Pulse Rate [Lying] Pulse Rate [Sitting] Pulse Rate [Standing] Respiratory Rate 16 16 Respiratory Effort Normal Respiratory Pattern Normal Blood Pressure 146/123 H 138/88 H Blood Pressure [Lying] Blood Pressure [Sitting] Blood Pressure [Standing] Blood Pressure Mean 130 104 Blood Pressure Mean [Lying] Blood Pressure Mean [Sitting] Blood Pressure Mean [Standing] Pulse Ox 98 100 Oxygen Delivery Method Room Air Room Air 04/16/21 21:54 04/16/21 22:00 Temperature Temperature Source Pulse Rate 56 L Pulse Rate [Lying] 99 Pulse Rate [Sitting] 104 H Pulse Rate [Standing] 104 H Respiratory Rate 16 Respiratory Effort Respiratory Pattern Blood Pressure 138/68 H Blood Pressure [Lying] 141/72 H Blood Pressure [Sitting] 144/88 H Blood Pressure [Standing] 117/94 H Blood Pressure Mean 91 Blood Pressure Mean [Lying] 95 Blood Pressure Mean [Sitting] 106 Blood Pressure Mean [Standing] 101 Pulse Ox 100 Oxygen Delivery Method Room Air Weight Weight: 145.15 kg Body Mass Index (BMI) 48.6 Physical Exam Narrative Physical exam: General: Well-nourished, well-developed. Head: Normocephalic, atraumatic, no tenderness Eyes: PERRLA, EOMI ENT, no trauma, moist mucous membranes, no rhinorrhea Neck: Nontender, full range of motion, no spinal tenderness, deformities, step- off CVS: Irregularly irregular rate and rhythm. S1-S2 present. No murmur, gallop or rub. Respiratory : clear to auscultation bilaterally, chest wall nontender, no wheezing Abdomen: Soft, nontender, nondistended, normal bowel sounds, no masses : Deferred Back: Nontender, no CVA tenderness, no midline spinal tenderness, deformities, step-offs Extremities: Nontender full range of motion, no trauma Skin: Normal color, no trauma, abrasions Neuro: Alert, oriented, cranial nerves II through XII grossly intact. Psychiatry: Normal mood. Normal affect. Not depressed. Not anxious. Results Lab / Micro Data Result Diagrams: 04/16/21 19:54 04/16/21 19:54 Labs: Laboratory Results - last 24 hr 04/16/21 19:54: WBC 9.3, RBC 3.45 L, Hgb 11.4 L, Hct 33.7 L, MCV 97.7 H, MCH 33.0 H, MCHC 33.8, RDW Std Deviation 53.3 H, RDW Coeff of Kassandra 15.4 H, Plt Count 234, MPV 10.6, Immature Gran % (Auto) 0.300, Neut % (Auto) 61.4, Lymph % (Auto) 26.3, Smith % (Auto) 10.7 H, Eos % (Auto) 1.1, Baso % (Auto) 0.2, Absolute Neuts (auto) 5.7, Absolute Lymphs (auto) 2.44, Nucleated RBC % 0 04/16/21 19:54: PT 18.2 H, INR 1.6 04/16/21 19:54: Sodium 134 L, Potassium 4.1, Chloride 94 L, Carbon Dioxide 26.0, Anion Gap 14, BUN 41 H, Creatinine 8.63 H*, Estim Creat Clear Calc 8.92, Est GFR (MDRD) Af Amer 8 L, Est GFR (MDRD) Non-Af 7 L, BUN/Creatinine Ratio 4.8 L, Glucose 137 H, Calcium 9.4, Total Bilirubin 0.50, AST 24, ALT 24, Alkaline Phosphatase 69, Total Protein 8.4 H, Albumin 3.5, Globulin 4.9 H, Albumin/Globulin Ratio 0.7 L 04/16/21 19:54: Troponin I High Sens 13 Rhythm Strip Rhythm Strip: A-fib Rate: 121 Ectopy: None Radiology Impression Chest X-Ray 04/16/21 21:58 IMPRESSION: 1. No radiographic evidence of acute cardiopulmonary disease. Electronically Signed: Medardo Mccallum DO at 23:28 EST , Assessment & Plan Assessment/Plan (1) Syncope: QUALIFIERS: Syncope type: unspecified Qualified Code(s): R55 - Syncope and collapse PLAN: Syncope EKG independently reviewed. EKG showed atrial fibrillation Impression of chest x-ray by radiologist: No radiographic evidence of acute cardiopulmonary disease. Actual chest x-ray image was visualized and independently interpreted. I agree with radiologist interpretation. High sensitive troponin is negative. Echocardiogram ordered. Orthostatic vitals per protocol End-stage renal disease on dialysis Labs reviewed showed mildly low sodium, chronic. Potassium is normal at 4.1. Dialysis on Monday, and Fridays. Renal diet. Atrial fibrillation with rapid ventricular response. His potassium is 4.1. Check TSH. Check magnesium. Placed on telemetry in the progressive care unit. Diabetes mellitus Patient with hyperglycemia on presentation Adjust home hypoglycemic regimen. Accu-Chek QA CHS with correction scale insulin ordered. Morbid obesity: BMI of 48.7 kg/m?. Complicates care. Lifestyle modification recommended. DVT prophylaxis: Subcutaneous Lovenox ordered Charges/Coding Visit Charges OBSV E&M: 22750 Initial observation care L3
[2021-04-17] VITALS (14 sets, daily range): BP systolic 111–165; BP diastolic 45–112; PULSE 64–131; RESP 14–20; TEMP 36.1–37; O2SAT 95–100; BMI 46.2
[2021-04-17 00:40] LABS: Magnesium 2.3 mg/dL (1.6-2.6)
--- NOTE | 2021-04-17 00:47 | ECHOCS_ITS ---
Reason For Study: Syncope Procedure This was a 2D Doppler, Color Flow transthoracic echocardiogram. The study was technically difficult. Patient scanned supine due to dialysis. Exam performed portable in patient room. Left Ventricle Normal left ventricle. The estimated ejection fraction is 55-60 %. Right Ventricle Normal right ventricle. Normal systolic function. Atria The left atrium is mildly enlarged. Not well visualized. Mitral Valve The mitral valve is structurally normal. No prolapse or stenosis seen. No mitral valve insufficiency. Tricuspid Valve Normal tricuspid valve. Aortic Valve Normal aortic valve. Pulmonic Valve The pulmonic valve is not well visualized. Great Vessels Mildly dilated aortic root. Pericardium/Pleural Small pericardial effusion. No Haemogynamic compromise. MMode/2D Measurements & Calculations LVIDd: 4.1 cm IVSd: 1.2 cm Ao root diam: 4.1 cm LVIDs: 2.2 cm LVPWd: 1.4 cm FS: 45.5 % LVAd ap4: 28.1 cm2 SV(MOD-sp4): 52.3 ml SV(sp4-el): 54.0 ml LVLd ap4: 7.5 cm EDV(MOD-sp4): 87.2 ml EDV(sp4-el): 89.5 ml LVAs ap4: 16.8 cm2 LVLs ap4: 6.8 cm ESV(MOD-sp4): 34.9 ml ESV(sp4-el): 35.5 ml EF(MOD-sp4): 60.0 % EF(sp4-el): 60.3 % LA dimension(2D): 4.1 cm Doppler Measurements & Calculations MV E max christina: 97.6 cm/sec Ao V2 max: 114.4 cm/sec LV V1 max: 83.9 cm/sec Ao max P.2 mmHg LV V1 max P.8 mmHg PA V2 max: 93.0 cm/sec ECHO/Echo Complete W/ Contrast Interpretation Summary The estimated ejection fraction is 55-60 %. Small pericardial effusion with no Haemodynamic compromise Ordering Physician: Srinivasan Knowles Referring Physician: Yola Ng M.D. Performed By: Jaye Dodson RDCS
[2021-04-17 05:46] LABS: Absolute Lymphocyte Count 2.74 X10^3/uL (0.83-4.51); Absolute Neutrophil Count 4.8 X10^3/uL (2.0-7.7); Basophil# 0.04 X10^3/uL; Basophil% 0.5 % (0-1); Eosinophil# 0.13 X10^3/uL; Eosinophils% 1.5 % (0-5); Hematocrit 31.2 % (40-54); Hemoglobin 10.5 g/dL (13.0-16.5); Lymphocyte # 2.74 X10^3/ul (0.83-4.51); Lymphocyte % 31.7 % (19-41); Mean Corp Hgb Conc 33.7 g/dL (32-36); Mean Corpuscular Hgb 33.8 pg (27.0-32.0); Mean Corpuscular Volume 100.3 fL (80-94); Mean Platelet Vol. 10.3 fl (6.2-12.0); Monocyte# 0.94 X10^3/uL; Monocyte% 10.9 % (0-10); NRBC Flagged by Analyzer 0 % (0-5); Neutrophil # 4.77 X10^3/uL (2.7-7.7); Neutrophil % 55.2 % (47-70); Platelet Count 207 K/mm3 (150-450); RBC Distribution Width CV 15.5 % (11.6-14.6); RBC Distribution Width SD 55.8 fl (35.1-43.9); Red Blood Count 3.11 M/mm3 (4.6-6.2); White Blood Count 8.6 K/mm3 (4.4-11.0)
[2021-04-17 06:10] LABS: Prothrombin Time (Protime)PT. 21.5 SECONDS (11.7-14.9)
[2021-04-17 06:35] LABS: Anion Gap 13 (5-15); BUN 47 mg/dL (7-18); BUN/Creat Ratio 5.1 RATIO (10-20); Calcium,Total 8.6 mg/dL (8.5-10.1); Chloride 94 mmol/L (98-107); EST Glomerular Filtration Rate 6 mL/min (>60); Est Glom Filt Rate - Afr Amer 8 mL/min (>60); Estimated Creatinine Clearance 8.27 ml/min; Glucose 116 mg/dL (74-106); Potassium 3.8 mmol/L (3.5-5.1); Sodium Level 135 mmol/L (136-145); Thyroid Stim Hormone (TSH) 1.49 uIU/mL (0.358-3.74)
[2021-04-17 07:11] LABS: Bedside Glucose 111 mg/dL (70-110)
--- NOTE | 2021-04-17 07:54 | PCM.PN.HOSP ---
Subjective Subjective Patient is a 60-year-old gentleman with multiple comorbidities including diabetes mellitus type 2, end-stage renal disease on hemodialysis, admission for COVID-19 pneumonia in February 2021 who presented after experiencing multiple syncopal episode over 2 days prior to coming Objective Data Objective Data Vital Signs: Vital Signs Temp Pulse Resp BP Pulse Ox 97.9 F 110 H 18 158/50 H 97 04/17/21 07:00 04/17/21 07:00 04/17/21 07:00 04/17/21 07:00 04/17/21 07:00 Oxygen Delivery Method Room Air Weight: 138 kg Body Mass Index (BMI) 46.2 Intake & Output: Intake and Output for Last 24 Hours 04/15/21 04/16/21 04/17/21 23:59 23:59 23:59 Output Total 0 / 0 Balance 0 / 0 Lab / Micro Data Result Diagrams: 04/17/21 04:54 04/17/21 04:54 Labs: Laboratory Results - last 24 hr 04/16/21 19:54: WBC 9.3, RBC 3.45 L, Hgb 11.4 L, Hct 33.7 L, MCV 97.7 H, MCH 33.0 H, MCHC 33.8, RDW Std Deviation 53.3 H, RDW Coeff of Kassandra 15.4 H, Plt Count 234, MPV 10.6, Immature Gran % (Auto) 0.300, Neut % (Auto) 61.4, Lymph % (Auto) 26.3, Bourbon % (Auto) 10.7 H, Eos % (Auto) 1.1, Baso % (Auto) 0.2, Absolute Neuts (auto) 5.7, Absolute Lymphs (auto) 2.44, Nucleated RBC % 0 04/16/21 19:54: PT 18.2 H, INR 1.6 04/16/21 19:54: Sodium 134 L, Potassium 4.1, Chloride 94 L, Carbon Dioxide 26.0, Anion Gap 14, BUN 41 H, Creatinine 8.63 H*, Estim Creat Clear Calc 8.92, Est GFR (MDRD) Af Amer 8 L, Est GFR (MDRD) Non-Af 7 L, BUN/Creatinine Ratio 4.8 L, Glucose 137 H, Calcium 9.4, Total Bilirubin 0.50, AST 24, ALT 24, Alkaline Phosphatase 69, Total Protein 8.4 H, Albumin 3.5, Globulin 4.9 H, Albumin/Globulin Ratio 0.7 L 04/16/21 19:54: Troponin I High Sens 13 04/16/21 19:54: Magnesium 2.3 04/17/21 04:54: WBC 8.6, RBC 3.11 L, Hgb 10.5 L, Hct 31.2 L, MCV 100.3 H, MCH 33.8 H, MCHC 33.7, RDW Std Deviation 55.8 H, RDW Coeff of Kassandra 15.5 H, Plt Count 207, MPV 10.3, Immature Gran % (Auto) 0.200, Neut % (Auto) 55.2, Lymph % (Auto) 31.7, Bourbon % (Auto) 10.9 H, Eos % (Auto) 1.5, Baso % (Auto) 0.5, Absolute Neuts (auto) 4.8, Absolute Lymphs (auto) 2.74, Nucleated RBC % 0 04/17/21 04:54: PT 21.5 H, INR 2.0 04/17/21 04:54: Sodium 135 L, Potassium 3.8, Chloride 94 L, Carbon Dioxide 28.0, Anion Gap 13, BUN 47 H, Creatinine 9.30 H*, Estim Creat Clear Calc 8.27, Est GFR (MDRD) Af Amer 8 L, Est GFR (MDRD) Non-Af 6 L, BUN/Creatinine Ratio 5.1 L, Glucose 116 H, Calcium 8.6, TSH 1.49 04/17/21 06:52: POC Glucose 111 H Radiography Diagnostic Testing: Radiology Impression Chest X-Ray 04/16/21 21:58 IMPRESSION: 1. No radiographic evidence of acute cardiopulmonary disease. Electronically Signed: Medardo Mccallum DO at 23:28 EST , Rhythm Strip Rhythm Strip: A-fib Rate: 121 Ectopy: None Physical Exam Narrative GENERAL: cooperative HEENT: Atraumatic; EYES; Anicteric, Normal Conjunctiva NECK; supple, normal thyroid, RESPIRATORY: Diminished to auscultation CARDIOVASCULAR: Regular S1 S2, GI: soft, normoactive bowel sounds, : No Renal angle tenderness; EXTREMITIES: No edema, no clubbing, MUSCULOSKELETAL: no muscle wasting NEURO: Awake; no lateralizing signs. SKIN: No Rash PSYCH; Flat affect Assessment & Plan Assessment/Plan (1) Syncope: QUALIFIERS: Syncope type: unspecified Qualified Code(s): R55 - Syncope and collapse PLAN: Patient is a 60-year-old gentleman with multiple comorbidities including diabetes mellitus type 2, end-stage renal disease on hemodialysis, admission for COVID-19 pneumonia in February 2021 who presented after experiencing multiple syncopal episode over 2 days prior to coming 1. Syncopal episode ?Patient was found to be orthostatic. Admitted to a monitored bed where patient is being monitored continuously via telemetry to rule out arrhythmia as a possible contributing factor to patient's recurrent syncopal episode. As part of his management echo was ordered 2. A. fib with RVR ?Patient presented with A. fib with RVR. Heart rate has since been controlled. Patient already on systemic anticoagulation with warfarin. Continued with daily monitoring of INR 3. End-stage renal disease ?On dialysis on Tuesdays and Saturdays 4. Diabetes mellitus type II -patient's oral hypoglycemics held. Placed on long acting insulin, Accu-Cheks a.c. and at bedtime and covered with sliding scale insulin 5. Recent admission in February 2021 for COVID-19 ?Patient remained stable 6. History of previous DVT involving lower extremity ?Patient is on warfarin 7. Class III obesity with BMI of 46.3 ?Weight loss advised 8. DVT prophylaxis ?Patient is on warfarin Charges/Coding Visit Charges OBSV E&M: 70649 Subsequent observation care L3
[2021-04-17 11:15] LABS: Bedside Glucose 152 mg/dL (70-110)
--- NOTE | 2021-04-17 12:53 | CASEMGMT ---
KAMRON GEORGE NOTE: Intro role of CM to patient and VEGA form explained re: Observation status for treatment of syncope. Explained hospitalization will be paid per his insurance policy for Outpatient billing and condition will continue to be evaluated for Inpt necessity. Also let pt know that [facility] sends paper in the billing packet with their phone number if questions arise. Discussed Pharmacy section of VEGA form and self administered medication guideline. Pt verbalizes understanding and does not have further questions. Form signed, copy made and placed in chart, and original given to pt. Pt states he wishes to return home @ discharge. He states he lives alone and is independent w/ADL's and IADL's. He has a friend that lives nearby who can assist if needed. Pt declines need for HHC. He states would like to complete AD if SW is available. He was made aware if SW not available over the weekend prior to discharge, he can contact SW as an OP and make an appt to have these completed. Pt provided w/[employer] card w/contact info. He voices understanding. Vandana TOLBERT RN, CM
[2021-04-17] MEDS: Heparin 10,000 UNITS/10 ML Vial IV (14:18)
--- NOTE | 2021-04-17 14:24 | DIALYSIS ---
HD x 4 hours complete. Tolerated tx well. No fluid removed. Ran on 3k bath. Used right chest wall dialysis catheter. Lumens closed with heparin per fill volume. Caps placed. Dressing is dry and intact. See tx sheet for more details. Report was given to KAMRON Sanz
[2021-04-17] MEDS: Ascorbic Acid 500 MG Tablet 1000 MG PO (15:30)
[2021-04-17] MEDS: Pyridoxine HCl 100 MG Tablet PO (15:31)
[2021-04-17] MEDS: Folic Acid/Vitamin B Comp W-C 1 Capsule 1 CAP PO (15:31)
[2021-04-17] MEDS: Venlafaxine XR 150 MG Capsule PO (15:31)
[2021-04-17] MEDS: Calcium Acetate 667 MG Capsule 2001 MG PO (16:59)
[2021-04-17] MEDS: Dicyclomine 10 MG Capsule 20 MG PO (16:59)
[2021-04-17] MEDS: glipiZIDE 5 MG Tablet PO (17:22)
[2021-04-17] MEDS: Insulin Lispro 100 UNIT/ML INSULN.PEN SC (17:23)
[2021-04-17] MEDS: Glucerna Shake 120 ML LIQUID PO ×2 (17:27→21:14)
[2021-04-17] MEDS: 0.9% Saline Lock 10 ML Syringe IV (21:14)
[2021-04-17] MEDS: busPIRone 5 MG Tablet 10 MG PO (21:26)
[2021-04-17] MEDS: Atorvastatin Calcium 40 MG Tablet PO (21:26)
[2021-04-17] MEDS: Gabapentin 400 MG Capsule 800 MG PO (21:26)
[2021-04-17 23:31] LABS: Bedside Glucose 84 mg/dL (70-110)
[2021-04-17 23:31] LABS: Bedside Glucose 164 mg/dL (70-110)
[2021-04-18 02:23] VITALS: BP 111/55; PULSE 70; RESP 16; TEMP 36.4; O2SAT 98
[2021-04-18] MEDS: Dicyclomine 10 MG Capsule 20 MG PO (06:09)
[2021-04-18 06:30] LABS: Prothrombin Time (Protime)PT. 22.3 SECONDS (11.7-14.9)
[2021-04-18 06:55] LABS: Bedside Glucose 90 mg/dL (70-110)
[2021-04-18 07:17] VITALS: O2SAT 96
--- NOTE | 2021-04-18 07:29 | PN.HOSP_ITS ---
Subjective Subjective Patient seen, review of telemetry monitoring did not demonstrate any arrhythmia to explain for patient recurrent syncopal episode. Patient however was found to have orthostatic hypotension. He has subsequently been started on midodrine 10 mg p.o. 3 times daily. 2D echo was obtained the day prior did demonstrate EF of 55 to 60% and Small pericardial effusion with no Haemodynamic compromise Objective Data Objective Data Vital Signs: Vital Signs Temp Pulse Resp BP Pulse Ox 97.6 F L 70 16 111/55 L 98 04/18/21 02:23 04/18/21 02:23 04/18/21 02:23 04/18/21 02:23 04/18/21 02:23 Oxygen Delivery Method Room Air Weight: 138 kg Body Mass Index (BMI) 46.2 Intake & Output: Intake and Output for Last 24 Hours 04/16/21 04/17/21 04/18/21 23:59 23:59 23:59 Intake Total 720 / 720 Output Total 0 / 0 Balance 720 / 720 Lab / Micro Data Result Diagrams: 04/17/21 04:54 04/17/21 04:54 Labs: Laboratory Results - last 24 hr 04/17/21 11:04: POC Glucose 152 H 04/17/21 16:52: POC Glucose 164 H 04/17/21 21:23: POC Glucose 84 04/18/21 05:50: PT 22.3 H, INR 2.0 04/18/21 06:06: POC Glucose 90 Radiography Diagnostic Testing: Radiology Impression Echocardiogram 04/17/21 00:47 Interpretation Summary The estimated ejection fraction is 55-60 %. Small pericardial effusion with no Haemodynamic compromise Ordering Physician: Srinivasan Knowles Referring Physician: Yola Ng M.D. Performed By: Jaye Dodson RDCS Rhythm Strip Rhythm Strip: A-fib Rate: 121 Ectopy: None Physical Exam Narrative GENERAL: cooperative HEENT: Atraumatic; EYES; Anicteric, Normal Conjunctiva NECK; supple, normal thyroid, RESPIRATORY: Diminished to auscultation CARDIOVASCULAR: Regular S1 S2, GI: soft, normoactive bowel sounds, : No Renal angle tenderness; EXTREMITIES: No edema, no clubbing, MUSCULOSKELETAL: no muscle wasting NEURO: Awake; no lateralizing signs. SKIN: No Rash PSYCH; Flat affect Assessment & Plan Assessment/Plan (1) Syncope: QUALIFIERS: Syncope type: unspecified Qualified Code(s): R55 - Syncope and collapse PLAN: Patient is a 60-year-old gentleman with multiple comorbidities including diabetes mellitus type 2, end-stage renal disease on hemodialysis, admission for COVID-19 pneumonia in February 2021 who presented after experiencing multiple syncopal episode over 2 days prior to coming 1. Syncopal episode ?Patient was found to be orthostatic. Admitted to a monitored bed where patient is being monitored continuously via telemetry to rule out arrhythmia as a possible contributing factor to patient's recurrent syncopal episode. As part of his management echo was ordered -04/18/2021; patient seen, review of telemetry monitoring did not demonstrate any arrhythmia to explain for patient recurrent syncopal episode. Patient however was found to have orthostatic hypotension. He has subsequently been started on midodrine 10 mg p.o. 3 times daily. 2D echo was obtained the day prior did demonstrate EF of 55 to 60% and Small pericardial effusion with no Haemodynamic compromise 2. A. fib with RVR ?Patient presented with A. fib with RVR. Heart rate has since been controlled. Patient already on systemic anticoagulation with warfarin. Continued with daily monitoring of INR 3. End-stage renal disease ?On dialysis on Tuesdays and Saturdays 4. Diabetes mellitus type II -patient's oral hypoglycemics held. Placed on long acting insulin, Accu-Cheks a.c. and at bedtime and covered with sliding scale insulin 5. Recent admission in February 2021 for COVID-19 ?Patient remained stable 6. History of previous DVT involving lower extremity ?Patient is on warfarin 7. Class III obesity with BMI of 46.3 ?Weight loss advised 8. DVT prophylaxis ?Patient is on warfarin
--- NOTE | 2021-04-18 08:46 | DS.PCM_ITS ---
Providers Date of Admission: 04/16/21 Primary Care Physician: Dr. Yola Ng MD Consultations 04/17/21 00:47 Consult: Nephrology Routine Consulting Provider: Lillian Acharya Reason for Consult: ESRD on dialysis EMERGENT Consult: No MD Notified: Yes Date Notified: 04/17/21 Time Notified: 06:54 Method of Notification: Text Reason For Visit: SYNCOPE Diagnosis Discharge Diagnosis (1) Syncope: Status: Acute Code(s): R55 - Syncope and collapse Qualifiers: Syncope type: unspecified Qualified Code(s): R55 - Syncope and collapse Medications at Discharge Home Medications ascorbic acid (vitamin C) [Vitamin C] 1,000 mg PO DAILY 12/02/16 buspirone 10 mg PO BID 12/02/16 dicyclomine 20 mg PO TID 12/02/16 venlafaxine [Effexor XR] 150 mg PO DAILY 12/02/16 Humulin N NPH Insulin KwikPen 12 units SQ QHS 05/23/20 atorvastatin 40 mg PO DAILY 05/23/20 pyridoxine (vitamin B6) 100 mg PO DAILY 05/23/20 B complex with C 20-folic acid 1 capsule PO DAILY #30 capsule 06/01/20 warfarin 12.5 mg PO DINNER #0 06/01/20 gabapentin [Neurontin] 800 mg PO BID 06/13/20 simethicone [Gas Relief (simethicone)] 80 mg PO TIDPC 03/06/21 calcium acetate(phosphat bind) 2,001 mg PO TIDCM 03/07/21 hydrocodone-acetaminophen 1 tab PO Q6H PRN 2 Days #5 tab 04/12/21 midodrine 10 mg PO TIDCM #90 tab 04/18/21 Hospital Course Summary of Care Provided Minutes Spent on Discharge: 35 Hospital Course: Patient is a 60-year-old gentleman with multiple comorbidities including diabetes mellitus type 2, end-stage renal disease on hemodialysis, admission for COVID-19 pneumonia in February 2021 who presented after experiencing multiple syncopal episode over 2 days prior to coming 1. Syncopal episode ?Patient was found to be orthostatic. Admitted to a monitored bed where patient is being monitored continuously via telemetry to rule out arrhythmia as a poss ible contributing factor to patient's recurrent syncopal episode. As part of his management echo was ordered -04/18/2021; patient seen, review of telemetry monitoring did not demonstrate any arrhythmia to explain for patient recurrent syncopal episode. Patient however was found to have orthostatic hypotension. He has subsequently been started on midodrine 10 mg p.o. 3 times daily. 2D echo was obtained the day prior did demonstrate EF of 55 to 60% and Small pericardial effusion with no Haemodynamic compromise 2. A. fib with RVR ?Patient presented with A. fib with RVR. Heart rate has since been controlled. Patient already on systemic anticoagulation with warfarin. Continued with daily monitoring of INR 3. End-stage renal disease ?On dialysis on Tuesdays and Saturdays 4. Diabetes mellitus type II -patient's oral hypoglycemics held. Placed on long acting insulin, Accu-Cheks a.c. and at bedtime and covered with sliding scale insulin 5. Recent admission in February 2021 for COVID-19 ?Patient remained stable 6. History of previous DVT involving lower extremity ?Patient is on warfarin 7. Class III obesity with BMI of 46.3 ?Weight loss advised 8. DVT prophylaxis ?Patient is on warfarin Physical Exam Narrative GENERAL: cooperative HEENT: Atraumatic; EYES; Anicteric, Normal Conjunctiva NECK; supple, normal thyroid, RESPIRATORY: Diminished to auscultation CARDIOVASCULAR: Regular S1 S2, GI: soft, normoactive bowel sounds, : No Renal angle tenderness; EXTREMITIES: No edema, no clubbing, MUSCULOSKELETAL: no muscle wasting NEURO: Awake; no lateralizing signs. SKIN: No Rash PSYCH; Flat affect Weight / BMI Weight Weight: 138 kg Body Mass Index (BMI) 46.2 ABG / Lab / Microbiology Data Result Diagrams: 04/17/21 04:54 04/17/21 04:54 Laboratory: Laboratory Results - last 24 hr 04/17/21 11:04: POC Glucose 152 H 04/17/21 16:52: POC Glucose 164 H 04/17/21 21:23: POC Glucose 84 04/18/21 05:50: PT 22.3 H, INR 2.0 04/18/21 06:06: POC Glucose 90 Radiography Diagnostic Testing: Radiology Impression Echocardiogram 04/17/21 00:47 Interpretation Summary The estimated ejection fraction is 55-60 %. Small pericardial effusion with no Haemodynamic compromise Ordering Physician: Srinivasan Knowles Referring Physician: Yola Ng M.D. Performed By: Jaye Dodson RDCS D/C Instructions Discharge Diet: 1800 Calorie Control Diet and Renal Diet Discharge Activity: Return to Normal Activity Call your doctor if you observe: Fever of 101 or Higher, Shortness of breath, Fainting spells and Chest pain Meaningful Use Info Meaningful Use Diagnoses (Choose all that apply): None applicable Discharge Plan Admission Admit Date/Time: 04/16/21 23:35 Attending Provider: Karlos Man Primary Care Provider: Yola Ng Consulting Providers: Lillian Acharya Discharge Orders/Prescriptions Prescriptions: New midodrine 5 mg Tablet 10 mg PO TIDCM Qty: 90 RF: 0 Continued ascorbic acid (vitamin C) [Vitamin C] 1,000 MG tablet 1,000 mg PO DAILY RF: 0 venlafaxine [Effexor XR] 150 MG capsule 150 mg PO DAILY RF: 0 dicyclomine 20 MG tablet 20 mg PO TID RF: 0 buspirone 10 MG tablet 10 mg PO BID RF: 0 atorvastatin 40 MG tablet 40 mg PO DAILY RF: 0 pyridoxine (vitamin B6) 100 MG tablet 100 mg PO DAILY RF: 0 Humulin N NPH Insulin KwikPen 100 UNIT/ML insulin pen 12 units SQ QHS RF: 0 B complex with C 20-folic acid 1 CAPSULE capsule 1 capsule PO DAILY Qty: 30 RF: 0 warfarin 5 MG tablet 12.5 mg PO DINNER Qty: 0 RF: 0 gabapentin [Neurontin] 100 MG capsule 800 mg PO BID RF: 0 simethicone [Gas Relief (simethicone)] 80 MG tablet,chewable 80 mg PO TIDPC RF: 0 calcium acetate(phosphat bind) 667 mg capsule 2,001 mg PO TIDCM RF: 0 hydrocodone-acetaminophen 5-325 mg tablet 1 tab PO Q6H PRN (Reason: pain) 2 Days Qty: 5 RF: 0 Discontinued glipizide 5 mg tablet 5 mg PO DAILY RF: 0 Referrals / Follow Up: Lillian Acharya DO [STAFF PHYSICIAN] - Within 1 Week Yola Ng MD [Primary Care Provider] - Within 1 Week Disposition Disposition (needs filled in before D/C Order can be placed): Home, Self Care Charges/Coding Visit Charges OBSV E&M: 57336 Observation care discharge
[2021-04-18 08:53] VITALS: BP 140/80; PULSE 98; RESP 18; TEMP 36.4; O2SAT 100
[2021-04-18] MEDS: Venlafaxine XR 150 MG Capsule PO (08:58)
[2021-04-18] MEDS: Pyridoxine HCl 100 MG Tablet PO (08:58)
[2021-04-18] MEDS: busPIRone 5 MG Tablet 10 MG PO (08:58)
[2021-04-18] MEDS: Gabapentin 400 MG Capsule 800 MG PO (08:59)
[2021-04-18] MEDS: Ascorbic Acid 500 MG Tablet 1000 MG PO (08:59)
[2021-04-18] MEDS: Calcium Acetate 667 MG Capsule 2001 MG PO (08:59)
[2021-04-18] MEDS: Folic Acid/Vitamin B Comp W-C 1 Capsule 1 CAP PO (08:59)
== END 2021-04-18 08:54 | disposition home or self-care (01) ==
LOC: ED 23:37 → PCU 23:43
PROVIDERS: Admitting Provider Hospitalist; Emergency Provider Emergency Medicine; PCP Internal Medicine; Referring Provider Internal Medicine; Visit Provider Internal Medicine
DX: I48.91 Unspecified atrial fibrillation (principal); E11.51 Type 2 diabetes mellitus with diabetic peripheral angiopathy without gangrene; Z99.2 Dependence on renal dialysis; I50.32 Chronic diastolic (congestive) heart failure; E11.42 Type 2 diabetes mellitus with diabetic polyneuropathy; E11.22 Type 2 diabetes mellitus with diabetic chronic kidney disease; N18.6 End stage renal disease; Z68.42 Body mass index [BMI] 45.0-49.9, adult; E66.01 Morbid (severe) obesity due to excess calories; Z79.4 Long term (current) use of insulin; I95.1 Orthostatic hypotension; E78.00 Pure hypercholesterolemia, unspecified; I25.10 Atherosclerotic heart disease of native coronary artery without angina pectoris; R09.02 Hypoxemia; Z87.891 Personal history of nicotine dependence; Z79.899 Other long term (current) drug therapy; Z79.01 Long term (current) use of 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; Z86.718 Personal history of other venous thrombosis and embolism; E83.111 Hemochromatosis due to repeated red blood cell transfusions; F41.9 Anxiety disorder, unspecified; F32.A Depression, unspecified
CPT/HCPCS: 36415; 71045; 80048; 80053; 82962; 83735; 84443; 84484; 85025; 85610; 90937; 93005; 93306; 96374; 97162; 97165; 97802; 99218; 99285; J7030; Q9957; A4216; C8929; G0257; G0378

== ENCOUNTER → 2021-06-30 | Outpatient (CLI) | payer MEDICARE, SELFPAY ==
[2021-06-30 14:27] LABS: Hematocrit 34.9 % (40-54); Hemoglobin 12.2 g/dL (13.0-16.5); Mean Corpuscular Hgb 34.8 pg (27.0-32.0); Mean Corpuscular Volume 99.4 fL (80-94); Mean Platelet Vol. 10.2 fl (6.2-12.0); Platelet Count 231 K/mm3 (150-450); RBC Distribution Width CV 13.3 % (11.6-14.6); RBC Distribution Width SD 48.7 fl (35.1-43.9); Red Blood Count 3.51 M/mm3 (4.6-6.2); White Blood Count 8.9 K/mm3 (4.4-11.0)
[2021-06-30 14:45] LABS: International Normalized Ratio 2.9; Prothrombin Time (Protime)PT. 29.7 SECONDS (11.7-14.9)
[2021-06-30 15:32] LABS: Anion Gap 11 (5-15); BUN 62 mg/dL (7-18); BUN/Creat Ratio 8.4 RATIO (10-20); Calcium,Total 9.3 mg/dL (8.5-10.1); Chloride 91 mmol/L (98-107); Creatinine, Serum 7.42 mg/dL (0.70-1.30); EST Glomerular Filtration Rate 8 mL/min (>60); Est Glom Filt Rate - Afr Amer 10 mL/min (>60); Glucose 342 mg/dL (74-106); Potassium 4.3 mmol/L (3.5-5.1); Sodium Level 133 mmol/L (136-145)
[2021-06-30 22:25] LABS: Xtra Tube EP Lab EXTRA TUBE
== END | disposition home or self-care (01) ==
LOC: PAVLAB 14:09
PROVIDERS: PCP Internal Medicine; Referring Provider Physician Assistant; Visit Provider Physician Assistant
DX: Z01.818 Encounter for other preprocedural examination (principal); Z79.01 Long term (current) use of 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
CPT/HCPCS: 36415; 80048; 85027; 85610

== ENCOUNTER 2021-07-02 09:45 | Day surgery (SDC) | payer MEDICARE, SELFPAY ==
[2021-07-01 08:21] VITALS: BMI 42.7
--- NOTE | 2021-07-02 09:56 | PCM.HP.BLA ---
History and Physical Date of Admission: 07/02/21 Intake Visit Reasons: FISTULA CHECK Chief Complaint: Fistula Check Convention Worker Required: No Is patient in pain?: No Allergies cephalexin Allergy (Verified 06/30/21 13:20) Hives Penicillins Allergy (Verified 06/30/21 13:20) Hives Medications ascorbic acid (vitamin C) [Vitamin C] 1,000 mg PO DAILY 12/02/16 [History Confirmed 07/01/21] buspirone 10 mg PO BID 12/02/16 [History Confirmed 07/01/21] dicyclomine 20 mg PO TID 12/02/16 [History Confirmed 07/01/21] venlafaxine [Effexor XR] 150 mg PO DAILY 12/02/16 [History Confirmed 07/01/21] Humulin N NPH Insulin KwikPen 12 units SQ QHS 05/23/20 [History Confirmed 07/01/21] atorvastatin 40 mg PO DAILY 05/23/20 [History Confirmed 07/01/21] pyridoxine (vitamin B6) 100 mg PO DAILY 05/23/20 [History Confirmed 07/01/21] B complex with C 20-folic acid 1 capsule PO DAILY #30 capsule 06/01/20 [Rx Confirmed 07/01/21] warfarin 12.5 mg PO DINNER #0 06/01/20 [Rx Confirmed 07/01/21] gabapentin [Neurontin] 800 mg PO BID 06/13/20 [History Confirmed 07/01/21] simethicone [Gas Relief (simethicone)] 80 mg PO TIDPC 03/06/21 [History Confirmed 07/01/21] calcium acetate(phosphat bind) 2,001 mg PO TIDCM 03/07/21 [History Confirmed 07/01/21] midodrine 10 mg PO TIDCM #90 tab 04/18/21 [Rx Confirmed 07/01/21] [facility] History (HFpEF) heart failure with preserved ejection fraction Abrasion Acute exacerbation of CHF (congestive heart failure) [id number] kidney injury Anemia Anxiety Atrial fibrillation [facility] Cardiology follow-up encounter Chest pain CHF (congestive heart failure) Chronic kidney failure Chronic renal failure, 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 Colonization status Congestive heart failure (CHF) Coronary artery disease COVID CPAP (continuous positive airway pressure) dependence Delayed wound healing Depression Dialysis catheter clot or failure Diastolic CHF, acute Dietary restriction Dupuytrens contracture DVT (deep venous thrombosis) Edema of left lower leg due to peripheral venous insufficiency End stage renal disease Equinus contracture of left ankle ESRD (end stage renal disease) on dialysis Former smoker Gastric reflux Hammer toe of left foot Hemodialysis patient High cholesterol History of DVT of lower extremity History of edema History of IBS History of pain when walking History of renal disease History of stress test Hx of echocardiogram Insulin dependent diabetes mellitus Loss of consciousness Loss of hearing Malnutrition Morbid obesity Other specified peripheral vascular diseases Pressure ulcer Problem with dialysis access Pulmonary hypertension Shortness of breath on exertion Skin tear Spitting suture Syncope Transfusion (red blood cell) associated hemochromatosis Trigger finger Type 2 diabetes mellitus Type 2 diabetes mellitus with diabetic polyneuropathy Ulcer of left lower extremity with fat layer exposed Wears glasses Surgical History History of arteriovenostomy for renal dialysis (~07/2020) History of carpal tunnel surgery of left wrist History of carpal tunnel surgery of right wrist History of colonoscopy History of surgery History of tonsillectomy and adenoidectomy Family History Mother Diabetes Heart disease Hypertension Social History Smoking Status: Former smoker alcohol intake: never HPI HPI HPI: MAREK RAMSAY, is a 61 M who presents to the office today for decreased flow. Patient dialyzes T, Th and Sat. Patient is attempting home hemodialysis. He currently has tunneled dialysis catheters as a back. Patient has a right forearm radiocephalic arteriovenous fistula created on 04/12/21. He has never had a fistulogram on this current fistula. Patient is currently on Coumadin. He notes the dialysis center has been utilizing the fistula for 5 treatments. He notes the fistula has been infiltrated. He notes that the dialysis center has had to resort back to his chest catheters for treatments. ROS General General: Yes weight change; No appetite, fatigue, colon cancer, breast cancer or weakness HEENT HEENT: No difficulty swallowing, eye injury, eye surgery, swollen glands or hoarseness Endo Endocrine: Yes diabetes mellitus; No thyroid disease, thyroid cancer, Hair loss, heat intolerance or cold intolerance Skin Skin: No rash or changing moles Musc Musculoskeletal: No back problems, arthritis, rheumatoid arthritis, gout or joint pain Psych Psychiatric: Yes depression; No anxiety or hearing voices Resp Respiratory: No shortness of breath, Yes sleep apnea, No cough, No COPD, No asthma, No emphysema and No wheezing Gastro Gastrointestinal: No abdominal pain, No nausea or vomiting, No diarrhea, No constipation, No blood in stool, No acid reflux, No hemorrhoids, No ulcers, No gallbladder problem and No black,tarry stools Robby Hematologic: Yes blood thinners, No blood disorders, No bleeding, Yes anemia and Yes blood clots Neuro Neurologic: No system reviewed and no additional complaints, except as documented, No as per HPI, No abnormal gait, No abnormal hearing, No abnormal movements, No abnormal speech, No behavioral changes, No burning sensations, No confusion, No convulsions, No disequilibrium, No dizziness, No localized weakness, No frequent falls, No headache(s), No lack of coordination, No loss of vision, No memory loss, Yes numbness, No other visual disturbances, No radicular pain, No restless legs, No sensory deficit, No syncope, Yes tingling, No tremor(s), No weakness and No other Exam Const General: cooperative, healthy appearing, comfortable and no acute distress HENOH Head: normal to inspection Eyes General: appearance normal, both eyes and all related structures Neck Neck: normal visual inspection Neck mass: No Resp Effort & Inspection: normal respiratory effort Auscultation: clear to auscultation bilaterally Cardio Rate: regular rate Rhythm: regular rhythm GI Inspection: normal to inspection Palpation: soft Auscultation: normal bowel sounds Skin General: no rashes or lesions noted Neuro General: no focal motor deficits and CN's II-XI intact bilaterally Extrem Other: Right forearm AV fistula- good pulse, diminished bruit and thrill. Ecchymosis noted from infiltration. Psych Appearance: grossly normal Affect: normal affect Assessment and Plan Assessment and Plan (1) Anticoagulant long-term use: Status: Acute Orders: Orders: Prothrombin Time w/INR 06/30/21 (2) End stage renal disease: Status: Acute Plan - Mary LEAL PARustyC: Dr. Deal has also evaluated this patient. Dr. Deal will plan to perform a right forearm fistulogram with possible intervention. Dr. Deal will also plan to coil the superior deep side branch at the same time as the fistulogram. Patient will need to return at a later date to the office for another side branch ligation of an inferior side branch close to the anastomosis. Patient will continue on his Coumadin for both procedures. Procedure details, risks and benefits have been explained. Patient verbally understands and agrees with the plan. I have re-examined the patient. There are no clinical changes since date of exam.
[2021-07-02 10:00] LABS: Hematocrit 34.3 % (40-54); Hemoglobin 11.7 g/dL (13.0-16.5); Mean Corp Hgb Conc 34.1 g/dL (32-36); Mean Corpuscular Hgb 34.2 pg (27.0-32.0); Mean Corpuscular Volume 100.3 fL (80-94); Mean Platelet Vol. 10.3 fl (6.2-12.0); Platelet Count 218 K/mm3 (150-450); RBC Distribution Width CV 13.2 % (11.6-14.6); RBC Distribution Width SD 48.5 fl (35.1-43.9); Red Blood Count 3.42 M/mm3 (4.6-6.2); White Blood Count 10.6 K/mm3 (4.4-11.0)
[2021-07-02 10:20] LABS: Anion Gap 15 (5-15); BUN 83 mg/dL (7-18); BUN/Creat Ratio 8.8 RATIO (10-20); Calcium,Total 9.8 mg/dL (8.5-10.1); Chloride 94 mmol/L (98-107); Creatinine, Serum 9.48 mg/dL (0.70-1.30); EST Glomerular Filtration Rate 6 mL/min (>60); Est Glom Filt Rate - Afr Amer 7 mL/min (>60); Glucose 212 mg/dL (74-106); Potassium 4.5 mmol/L (3.5-5.1); Sodium Level 133 mmol/L (136-145)
--- NOTE | 2021-07-02 12:49 | PCM.OPRPT ---
Problems Associated Problem List Diagnoses (1) Problem with dialysis access: Report of Operation Date of Procedure: 07/02/21 Pre-Operative Diagnosis: Problem with dialysis access Post-Operative Diagnosis: Right forearm radiocephalic arterial anastomotic and proximal fistula venous stenosis. 3 dominant large sidebranch steals. Surgery/Procedure Performed:: Right upper extremity fistulogram with 5 x 2 Powerflex angioplasty and occlusion of 3 sidebranchs with Roby coils Description of Surgical Findings:: Timeout informed consent was obtained. 61-year-old gentleman was taken to the special procedures lab placed on the table the right extremity sterilely prepped draped ultrasound was used to identify the cephalic vein closer to the antecubital space under ultrasound guidance 2% lidocaine was instilled micropuncture needle inserted retrograde with flow micropuncture wire inserted 6 [place]ud[place] short sheath inserted using 0350 guide wire 4 [place]udian IM catheter was placed in the radial artery proximal to the anastomosis. Using Isovue contrast fistulogram was obtained this demonstrated at least 70% stenosis of the vein right at the anastomosis. The artery itself quite calcified. There are 3 dominant side branches stealing flow. I subsequently placed a 5 x 2 Powerflex balloon and balloon angioplasty of the anastomosis was carefully achieved. Completion views demonstrated improvement. I then serially access each of the 3 side branches. The 1 in the distal forearm more medially I placed a 8 x 7 Roby coil. Then the one that was more distal but dorsal placed a 8 x 7 Roby coil and then in the more proximal forearm 1 dorsally placed an 8 x 7 Roby coil and then two 8 x 14 Roby coils. At the completion all 3 dominant side branches had been successfully thrombosed. He tolerated the procedure well completely asymptomatic the sheath was removed U suture of 4-0 nylon was placed there is good pulse thrill and bruit blood loss was minimal Images demonstrate a right forearm radiocephalic arteriovenous hemodialysis fistula. There is at least 70% stenosis of the very proximal vein adjacent to the arterial anastomosis. There are 3 dominant side branches. Subsequent to the balloon angioplasty and Roby coiling the arterial anastomosis and very proximal portion of the fistula stenosis is improved. There are 3 side branches occluded. It is anticipated that if future difficulties arise that consideration for possible revision of the anastomotic area may need to be considered due to the very calcified nature of the radial artery and a size mismatch between the radial artery and the fistula itself Willem Deal M.D., F.A.C.S. Surgeon: Willem Deal Type of Anesthesia: Local
[2021-07-02 14:15] LABS: INR Fingerstick 3.8; Prothrombin Time Fingerstick 42.9 SEC (11.7-14.9)
== END 2021-07-02 13:50 | disposition home or self-care (01) ==
PROVIDERS: PCP Internal Medicine; Referring Provider Surgery; Visit Provider Surgery
DX: T82.858A Stenosis of other vascular prosthetic devices, implants and grafts, initial encounter (principal); I13.2 Hypertensive heart and chronic kidney disease with heart failure and with stage 5 chronic kidney disease, or end stage renal disease; E11.51 Type 2 diabetes mellitus with diabetic peripheral angiopathy without gangrene; Z99.2 Dependence on renal dialysis; I27.20 Pulmonary hypertension, unspecified; I50.30 Unspecified diastolic (congestive) heart failure; E11.22 Type 2 diabetes mellitus with diabetic chronic kidney disease; E11.42 Type 2 diabetes mellitus with diabetic polyneuropathy; N18.6 End stage renal disease; I48.91 Unspecified atrial fibrillation; Z79.4 Long term (current) use of insulin; F41.9 Anxiety disorder, unspecified; Z86.16 Personal history of COVID-19; I25.10 Atherosclerotic heart disease of native coronary artery without angina pectoris; F32.A Depression, unspecified; Z86.718 Personal history of other venous thrombosis and embolism; K21.9 Gastro-esophageal reflux disease without esophagitis; Z87.891 Personal history of nicotine dependence; E78.00 Pure hypercholesterolemia, unspecified; Z79.01 Long term (current) use of 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; Z79.899 Other long term (current) drug therapy
CPT/HCPCS: 36415; 36416; 36902; 36909; 76937; 80048; 85027; 85610; Q9967; C1725; C1769

== ENCOUNTER → 2021-07-03 | Outpatient (CLI) | payer MEDICARE, SELFPAY ==
[2021-07-03 12:19] LABS: Potassium 4.4 mmol/L (3.5-5.1)
== END | disposition home or self-care (01) ==
LOC: LABSPEC 11:56
PROVIDERS: PCP Internal Medicine; Referring Provider Internal Medicine; Visit Provider Internal Medicine
DX: E87.5 Hyperkalemia (principal)
CPT/HCPCS: 84132

== ENCOUNTER 2021-09-09 05:38 | Day surgery (SDC) | payer MEDICARE, SELFPAY ==
[2021-09-08 17:23] LABS: Hematocrit 33.7 % (40-54); Hemoglobin 11.1 g/dL (13.0-16.5); Mean Corp Hgb Conc 32.9 g/dL (32-36); Mean Corpuscular Hgb 33.8 pg (27.0-32.0); Mean Corpuscular Volume 102.7 fL (80-94); Mean Platelet Vol. 11.2 fl (6.2-12.0); Platelet Count 242 K/mm3 (150-450); RBC Distribution Width CV 14.8 % (11.6-14.6); RBC Distribution Width SD 55.6 fl (35.1-43.9); Red Blood Count 3.28 M/mm3 (4.6-6.2); White Blood Count 8.8 K/mm3 (4.4-11.0)
[2021-09-08 18:05] LABS: Anion Gap 12 (5-15); BUN 78 mg/dL (7-18); BUN/Creat Ratio 7.4 RATIO (10-20); Calcium,Total 9.6 mg/dL (8.5-10.1); Chloride 96 mmol/L (98-107); EST Glomerular Filtration Rate 5 mL/min (>60); Est Glom Filt Rate - Afr Amer 7 mL/min (>60); Glucose 196 mg/dL (74-106); Potassium 4.6 mmol/L (3.5-5.1); Sodium Level 136 mmol/L (136-145)
[2021-09-09] VITALS (8 sets, daily range): BP systolic 106–141; BP diastolic 51–82; PULSE 71–79; RESP 16–18; TEMP 36.3–37.1; O2SAT 92–98; BMI 48.6
--- NOTE | 2021-09-09 05:47 | PCM.HP.BLA ---
History and Physical Date of Admission: 09/09/21 Visit Reasons:?discuss surgery--US for fistula Chief Complaint: Fistula Check/discuss surgery Recruiter Coordinator Required: No Is patient in pain?: No Allergies cephalexin Allergy (Verified 08/24/21 13:50) HivesPenicillins Allergy (Verified 08/24/21 13:50) Hives Medications ascorbic acid (vitamin C) 1,000 mg tablet (Vitamin C) 1,000 mg PO DAILY suppliment 12/02/16 [History Confirmed 08/24/21] buspirone 10 mg tablet 10 mg PO BID depression 12/02/16 [History Confirmed 08/24/21] dicyclomine 20 mg tablet 20 mg PO TID IBS 12/02/16 [History Confirmed 08/24/21] venlafaxine 150 mg capsule,extended release 24 hr (Effexor XR) 150 mg PO DAILY depression 12/02/16 [History Confirmed 08/24/21] atorvastatin 40 mg tablet 40 mg PO DAILY cholesterol 05/23/20 [History Confirmed 08/24/21] insulin NPH isoph U-100 human 100 unit/mL (3 mL) subcutaneous pen (Humulin N NPH U-100 Insulin KwikPen) 12 units SQ QHS DIABETES 05/23/20 [History Confirmed 08/24/21] pyridoxine (vitamin B6) 100 mg tablet 100 mg PO DAILY suppliment 05/23/20 [History Confirmed 08/24/21] vitamin B complex and vitamin C no.20-folic acid 1 mg capsule 1 capsule PO DAILY #30 CAPSULES 06/01/20 [Rx Confirmed 08/24/21] warfarin 5 mg tablet 12.5 mg PO DINNER blood thinner ##0 06/01/20 [Rx Confirmed 08/24/21] gabapentin 100 mg capsule (Neurontin) 800 mg PO BID 06/13/20 [History Confirmed 08/24/21] simethicone 80 mg chewable tablet (Gas Relief (simethicone)) 80 mg PO TIDPC 03/06/21 [History Confirmed 08/24/21] calcium acetate(phosphat bind) 667 mg capsule 2,001 mg PO TIDCM Check with primary doctor 03/07/21 [History Confirmed 08/24/21] midodrine 5 mg tablet 10 mg PO TIDCM #90 tabs 04/18/21 [Rx Confirmed 08/24/21] [facility] Medical History? (HFpEF) heart failure with preserved ejection fraction Abrasion Acute exacerbation of CHF (congestive heart failure) [id number]-[id number] kidney injury Anemia Anxiety Atrial fibrillation [facility] Cardiology follow-up encounter Chest pain CHF (congestive heart failure) Chronic kidney failure Chronic renal failure, 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 Colonization status Congestive heart failure (CHF) Coronary artery disease COVID CPAP (continuous positive airway pressure) dependence Delayed wound healing Depression Dialysis catheter clot or failure Diastolic CHF, acute Dietary restriction Dupuytrens contracture DVT (deep venous thrombosis) Edema of left lower leg due to peripheral venous insufficiency End stage renal disease Equinus contracture of left ankle ESRD (end stage renal disease) on dialysis Former smoker Gastric reflux Hammer toe of left foot Hemodialysis patient High cholesterol History of DVT of lower extremity History of edema History of IBS History of pain when walking History of renal disease History of stress test Hx of echocardiogram Insulin dependent diabetes mellitus Loss of consciousness Loss of hearing Malnutrition Morbid obesity Other specified peripheral vascular diseases Pressure ulcer Problem with dialysis access Pulmonary hypertension Shortness of breath on exertion Skin tear Spitting suture Syncope Transfusion (red blood cell) associated hemochromatosis Trigger finger Type 2 diabetes mellitus Type 2 diabetes mellitus with diabetic polyneuropathy Ulcer of left lower extremity with fat layer exposed Wears glasses Surgical History? History of arteriovenostomy for renal dialysis (~07/2020) History of carpal tunnel surgery of left wrist History of carpal tunnel surgery of right wrist History of colonoscopy History of surgery History of tonsillectomy and adenoidectomy Family History? Mother Diabetes Heart disease Hypertension Social History? Smoking Status:? Former smoker alcohol intake:? never HPI HPI Surgical H&P: Yes HPI: MAREK RAMSAY, is a 61 M who presents to the office today for problem with dialysis access. Dialysis center is noting poor clearances since his fistulogram. Patient had recently had a fistulogram with Dr. Deal on 07/02/21. Patient tolerated the procedure well. Findings included right forearm radiocephalic arterial anastomotic and proximal fistula venous stenosis. 3 dominant large side branch steals. A 5 x 2 Powerflex angioplasty and occlusion of 3 side branches with Roby coils was successfully performed. Patient now returns at the request of the dialysis center due to poor clearance via fistula. Patient is attempting to transition to home hemo-dialysis. They have created button holes. They have noted needle access seems fine, however at approximately 1 1/2 hours left of treatment they have to transition to the tunneled dialysis catheter to finish the treatment. He dialyzes T, TH and SAT. He would like to get the catheters out so he can go swimming.?He is currently maintained on Coumadin for A fib. He has had one previous failed fistula of the left upper extremity due to clot. Patient is not currently on a daily aspirin. Patient notes the last 2 treatments, the dialysis center has been using his chest catheters. ROS General General: Yes weight change; No appetite, fatigue, colon cancer, breast cancer or weakness HEENT HEENT: No difficulty swallowing, eye injury, eye surgery, swollen glands or hoarseness Endo Endocrine: Yes diabetes mellitus; No thyroid disease, thyroid cancer, Hair loss, heat intolerance or cold intolerance Skin Skin: No rash or changing moles Musc Musculoskeletal: No back problems, arthritis, rheumatoid arthritis, gout or joint pain Psych Psychiatric: Yes depression; No anxiety or hearing voices Resp Respiratory: No shortness of breath, Yes sleep apnea, No cough, No COPD, No asthma, No emphysema and No wheezing Gastro Gastrointestinal: No abdominal pain, No nausea or vomiting, No diarrhea, No constipation, No blood in stool, No acid reflux, No hemorrhoids, No ulcers, No gallbladder problem and No black,tarry stools Robby Hematologic: Yes blood thinners, No blood disorders, No bleeding, Yes anemia and Yes blood clots Neuro Neurologic: No system reviewed and no additional complaints, except as documented, No as per HPI, No abnormal gait, No abnormal hearing, No abnormal movements, No abnormal speech, No behavioral changes, No burning sensations, No confusion, No convulsions, No disequilibrium, No dizziness, No localized weakness, No frequent falls, No headache(s), No lack of coordination, No loss of vision, No memory loss, Yes numbness, No other visual disturbances, No radicular pain, No restless legs, No sensory deficit, No syncope, Yes tingling, No tremor(s), No weakness and No other Exam Const General: cooperative, comfortable and no acute distress [facility] Head: normal to inspection Eyes General: appearance normal, both eyes and all related structures Neck Neck: normal visual inspection Neck mass: No Chest Other: Right chest tunneled dialysis catheters noted Resp Effort & Inspection: normal respiratory effort Auscultation: clear to auscultation bilaterally Cardio Rate: regular rate Rhythm: regular rhythm GI Inspection: normal to inspection and large pannus Palpation: soft Auscultation: normal bowel sounds Skin General: no rashes or lesions noted Neuro General: no focal motor deficits and CN's II-XI intact bilaterally Extrem Other: right forearm AV fistula- good pulse, diminished bruit and thrill starting at the superior button hole. Poor arterial inflow. Psych Appearance: grossly normal Affect: normal affect Assessment and Plan Assessment and Plan (1) Problem with dialysis access: ?Status:?Acute ?Plan: Dr. Deal has also evaluated this patient. Dr. Deal will plan to perform a right forearm brachial to cephalic arteriovenous PTFE graft placement. Patient's forearm measures [address] Deal would request a 6 mm propaten graft, standard wall with no rings. Patient dialyzes T, Th, and Sat. He will need to hold his Coumadin 3 days prior to the procedure. Will consider if patient will need to be placed on a daily low dose aspirin post-operatively. Patient has had the opportunity to ask and have questions answered. Patient verbally understands and agrees with the plan. Will need to contact Vascular rep to be sure we have the correct graft for placement. (2) End stage renal disease: ?Status:?Acute ?Plan: Continue to use fistula for dialysis. Patient has recurrent stenosis of the right radiocephalic arteriovenous hemodialysis fistula at the radial artery. On fistulogram imaging the radial artery is diffusely diseased. I anticipate likely a right brachial to cephalic AV graft to further support the matured cephalic vein access fistula site of the forearm. Willem Deal M.D., F.A.C.S.
--- NOTE | 2021-09-09 05:48 | DCINST_ITS ---
Discharge Instructions Procedure Fistula Diet Discharge Diet: Renal Diet Activity Discharge Activity: May Not Drive (for 2-3 days or while taking narcotic pain medications.), May Shower and May Take a Tub Bath (in 5 days.) Lifting Restrictions: 5 pounds Keep extremity elevated above heart level: - (Keep arm elevated above the heart level for 3 days.) Dressing / Incision Call your doctor if your incision/area has: Continuous Slow Oozing, Sudden Increased Bleeding (apply pressure and call your doctor.), Increased Pain/ Swelling, Increased Redness and Foul Smelling Discharge Call your doctor if you observe: Fever of 101 or Higher Suture Line Care: Avoid Pulling/Pushing and Avoid Pinching/Bending Cleanse incision/area with: Keep Dressing Clean & Dry Additional Dressing/Incision Instructions:: Change or remove dressing in one day. May protect with a gauze bandaid. Follow Up Care Please Follow Up With: Willem Deal MD When: Call [phone] to make an appointment for suture removal and follow up in 1 week. Test Results: Test results from this visit will be discussed in further detail at your follow- up appointment, if applicable. Discharge Plan Admission Attending Provider: Willem Deal Primary Care Provider: Yola Ng Discharge Orders/Prescriptions Prescriptions: No Action ascorbic acid (vitamin C) [Vitamin C] 1,000 MG tablet 1,000 mg PO DAILY Label Comments: vitamin venlafaxine [Effexor XR] 150 MG capsule 150 mg PO DAILY Label Comments: depression dicyclomine 20 MG tablet 20 mg PO TID Label Comments: fatoumata buspirone 10 MG tablet 10 mg PO BID Label Comments: anxiety atorvastatin 40 MG tablet 40 mg PO DAILY pyridoxine (vitamin B6) 100 MG tablet 100 mg PO DAILY Humulin N NPH Insulin KwikPen 100 UNIT/ML insulin pen 14 units SQ QHS gabapentin [Neurontin] 100 MG capsule 800 mg PO BID simethicone [Gas Relief (simethicone)] 80 MG tablet,chewable 80 mg PO PRN PRN (Reason: Indigestion) calcium acetate(phosphat bind) 667 mg capsule 2,001 mg PO BID Label Comments: TAKE 1 CAPSULE DAILY midodrine 5 mg Tablet 10 mg PO TIDCM Qty: 90 0RF warfarin 6 mg Tablet 12.5 mg PO MOTUWETHFRSA warfarin 5 MG tablet 15 mg PO SHARP B complex with C 20-folic acid 1 CAPSULE capsule 1 capsule PO TUTHSA Other Ambulatory Orders: 12 Lead EKG (Routine) Timeframe: [id number] Facility: [facility] [place] - Location: Cardiovascular Services Ordered By: Dr. Willem Deal Referrals / Follow Up: Yola Ng MD [Primary Care Provider] - Disposition Disposition (needs filled in before D/C Order can be placed): Home, Self Care
[2021-09-09] MEDS: Lactated Ringers 1,000 ML 15 ML IV (06:53)
[2021-09-09 07:10] LABS: INR Fingerstick 2.1; Prothrombin Time Fingerstick 25.2 SEC (11.7-14.9)
[2021-09-09 07:35] LABS: Bedside Glucose 163 mg/dL (74-106)
[2021-09-09 07:37] LABS: International Normalized Ratio 1.9; Prothrombin Time (Protime)PT. 21.2 SECONDS (11.7-14.9)
[2021-09-09] MEDS: Clindamycin 900 MG/50 ML BAG 75 MG IV (07:57)
[2021-09-09] MEDS: Heparin Injection (Vial) 5,000 UNIT/ML VIAL 5000 UNIT (10:07)
[2021-09-09] MEDS: Lidocaine 1% (20 ml mdv) 20 ML Vial (10:35)
[2021-09-09] MEDS: Bupivacaine 0.25% 30 ML Vial (10:36)
--- NOTE | 2021-09-09 10:39 | OP.PCM_ITS ---
Report of Operation Date of Procedure: 09/09/21 Pre-Operative Diagnosis: Malfunction right forearm radial to cephalic arteriove nous hemodialysis fistula Post-Operative Diagnosis: Same Surgery/Procedure Performed:: Right forearm brachial to cephalic 6 mm propaten arteriovenous graft placement Propaten: Reference [id number], serial #[id number], expiry date 03/13/2025 Description of Surgical Findings:: Timeout form consent was obtained. 69-year-old gentleman was taken to the operating placed upon the table. Clindamycin 900 mg given intravenously. The right upper extremity was sterilely prepped and draped. Throughout the procedure 1% lidocaine mixed 50-50 with 0.25% Marcaine was used as a local anesthetic. A total of 17 cc was used. Local was instilled at the wrist. The patient had highly restricted arterial inflow to the radiocephalic arteriovenous hemodialysis fistula. Sharp and blunt dissection was used to dissect free the cephalic vein. Then a longitudinal incision was made the very proximal right forearm and tedious sharp and blunt dissection was used to identify the brachial artery. Some venous oozing was controlled with a jjyfvv-[id number] suture of 4-0 Prolene. Hemoclips were needed additionally as well. Circumferential control was obtained of the artery. A straight tunneler was placed from the antecubital area to the wrist area and a 6 mm propaten graft was tunneled. The patient received 10,000's of heparin. Peripheral vascular clamps were placed on the brachial artery and 11 blade was used to make an arteriotomy the graft had been slightly angled and a endograft to side artery anastomosis created with a running 6-0 [place]-Tolu suture. Very nice positioning was achieved. Hemostasis was intact. There was then measured the length. The cephalic vein was ligated distally with a 3-0 Vicryl. The vein was slightly spatulated and a end to and vein to graft anastomosis was created with a running CV 7 [place]-Tolu suture. Nicely patent anastomosis was achieved. Surgicel was used to assist with hemos tasis at both sites. There was a good palpable thrill at the completion. The patient received in aliquots a total of 30 mg of protamine as reversal. Hand appear to be viable. There appeared to be a palpable thrill within the fistula. The distal wound was closed with interrupted 3-0 Vicryl subdermal stitches and then simple sutures of 5-0 nylon. The proximal incision was closed with deep sutures of interrupted 3-0 Vicryl and then a running subcuticular 4-0 Monocryl followed by Steri-Strips Telfa tape dressing. Sponge and instrument and needle counts were reported to the surgeon to be cor rect. Blood loss was approximately 200 cc. Specimens none. Drains none. The patient was taken to the recovery area in satisfactory addition without apparent complication Willem Deal M.D., F.A.C.S. Surgeon: Willem Deal Type of Anesthesia: Local MAC Anesthesiologist: Lyndsay Mckinney
== END 2021-09-09 13:10 | disposition home or self-care (01) ==
LOC: SDC 05:39 → AC 05:39
PROVIDERS: Anesthesiology; PCP Internal Medicine; Referring Provider Surgery; Visit Provider Surgery
PROC: (CPT 36825; principal; 2021-09-09 07:45)
DX: T82.590A Other mechanical complication of surgically created arteriovenous fistula, initial encounter (principal); I13.2 Hypertensive heart and chronic kidney disease with heart failure and with stage 5 chronic kidney disease, or end stage renal disease; E11.51 Type 2 diabetes mellitus with diabetic peripheral angiopathy without gangrene; Z99.2 Dependence on renal dialysis; I50.32 Chronic diastolic (congestive) heart failure; I27.20 Pulmonary hypertension, unspecified; E11.22 Type 2 diabetes mellitus with diabetic chronic kidney disease; N18.6 End stage renal disease; I48.91 Unspecified atrial fibrillation; E66.01 Morbid (severe) obesity due to excess calories; Z68.42 Body mass index [BMI] 45.0-49.9, adult; Z79.4 Long term (current) use of insulin; I87.2 Venous insufficiency (chronic) (peripheral); Z87.891 Personal history of nicotine dependence; Z86.16 Personal history of COVID-19; Z86.718 Personal history of other venous thrombosis and embolism; F41.9 Anxiety disorder, unspecified; F32.A Depression, unspecified; I25.10 Atherosclerotic heart disease of native coronary artery without angina pectoris; K21.9 Gastro-esophageal reflux disease without esophagitis; E78.00 Pure hypercholesterolemia, unspecified; Z79.899 Other long term (current) drug therapy; Z79.01 Long term (current) use of 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; Y83.2 Surgical operation with anastomosis, bypass or graft as the cause of abnormal reaction of the patient, or of later complication, without mention of misadventure at the time of the procedure
CPT/HCPCS: 36825; 01844; 36415; 36416; 80048; 82962; 85027; 85610; J7120; J2405

== ENCOUNTER 2021-12-23 07:43 | Inpatient (IN) | payer MEDICARE, SELFPAY ==
[2021-12-23] VITALS (30 sets, daily range): BP systolic 112–173; BP diastolic 59–121; PULSE 55–113; RESP 14–20; TEMP 36.3–36.8; O2SAT 92–100; BMI 49.4; BMI 47.6
--- NOTE | 2021-12-23 07:48 | EKG12_ITS ---
Test Reason : Blood Pressure : / mmHG Vent. Rate : 079 BPM Atrial Rate : 079 BPM P-R Int : 222 ms QRS Dur : 082 ms QT Int : 376 ms P-R-T Axes : 025 055 053 degrees QTc Int : 431 ms Sinus rhythm with 1st degree A-V block Low voltage QRS Nonspecific ST abnormality Abnormal ECG Confirmed by DIANA HARVEY, LAURA ([id number]), editorial intern KARRI AMIN ([id number]) on 12/27/2021 12:59:36 PM Referred By: Confirmed By:LAURA ORTIZ MD
--- NOTE | 2021-12-23 07:55 | RAD_ITS ---
STUDY: X-RAY CHEST REASON FOR EXAM: Male, 61 years old. Chest pain TECHNIQUE: Single AP portable view of the chest. COMPARISON: 04/16/2021 FINDINGS: A previously noted right subclavian catheter has been removed The lungs are clear and expanded. There is no demonstrated pleural abnormality. Normal size heart. Normal mediastinum and sachi. Normal visualized pulmonary arteries. Normal visualized aortic arch and descending thoracic aorta. Normal visualized thoracic spine. Normal visualized ribs, clavicles, and shoulders. There is no demonstrated abnormality of the visualized soft tissue structures of the upper abdomen. RAD/Chest 1 View (Portable) IMPRESSION: No acute pulmonary process, no interval change Electronically Signed: Giovanni Huston MD at 8:20 EDT ,
[2021-12-23 07:56] LABS: Absolute Lymphocyte Count 3.06 X10^3/uL (0.83-4.51); Absolute Neutrophil Count 7.8 X10^3/uL (2.0-7.7); Basophil# 0.05 X10^3/uL; Basophil% 0.4 % (0-1); Eosinophil# 0.26 X10^3/uL; Eosinophils% 2.1 % (0-5); Hematocrit 30.7 % (40-54); Hemoglobin 10.6 g/dL (13.0-16.5); Lymphocyte # 3.06 X10^3/ul (0.83-4.51); Lymphocyte % 24.3 % (19-41); Mean Corp Hgb Conc 34.5 g/dL (32-36); Mean Corpuscular Hgb 34.4 pg (27.0-32.0); Mean Corpuscular Volume 99.7 fL (80-94); Mean Platelet Vol. 10.7 fl (6.2-12.0); Monocyte# 1.36 X10^3/uL; Monocyte% 10.8 % (0-10); NRBC Flagged by Analyzer 0 % (0-5); Neutrophil # 7.83 X10^3/uL (2.7-7.7); Neutrophil % 62.1 % (47-70); Platelet Count 222 K/mm3 (150-450); RBC Distribution Width CV 13.5 % (11.6-14.6); RBC Distribution Width SD 49.4 fl (35.1-43.9); Red Blood Count 3.08 M/mm3 (4.6-6.2); White Blood Count 12.6 K/mm3 (4.4-11.0)
--- NOTE | 2021-12-23 08:04 | ED.VIS.CHEST ---
HPI History of Present Illness Chief Complaint: Chest Pain Informant: patient Narrative Narrative: Patient arrives from dialysis by EMS. He states he got up this morning felt normal. He drove his truck into dialysis. He walked into dialysis and sat down to wait. He states he started belching and then got a heavy ache chest pain in the front of his chest. It really did not radiate. It did not migrate. He did start to get slightly diaphoretic. Despite the belching he did not have reflux or nausea. He did not feel lightheaded. He states he thinks he had this once before when he had congestive heart failure. But at no time during this was he short of breath. He is not short of breath now. He does not know if he gained more weight since his dialysis on Monday. He does eat out a lot so he does not control his salt intake but he did not need anything different. He did not drink any different amount of fluids. He feels good now. He denies history of heart disease other than atrial fibrillation but has never had an TX or stents. Nothing specifically made symptoms better or worse. [facility] Medical History (HFpEF) heart failure with preserved ejection fraction Acute exacerbation of CHF (congestive heart failure) Hybyq-eb-onjqyqs kidney injury Anemia Anxiety Atrial fibrillation [facility] Cardiology follow-up encounter Chest pain CHF (congestive heart failure) Chronic kidney failure Chronic renal failure, 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 Colonization status Congestive heart failure (CHF) Coronary artery disease COVID CPAP (continuous positive airway pressure) dependence Delayed wound healing Depression Dialysis catheter clot or failure Diastolic CHF, acute Dietary restriction Dupuytrens contracture DVT (deep venous thrombosis) Edema of left lower leg due to peripheral venous insufficiency End stage renal disease Equinus contracture of left ankle ESRD (end stage renal disease) on dialysis Former smoker Gastric reflux Hammer toe of left foot Hemodialysis patient High cholesterol History of DVT of lower extremity History of edema History of IBS History of pain when walking History of renal disease History of stress test Hx of echocardiogram Insulin dependent diabetes mellitus Loss of consciousness Loss of hearing Malnutrition Morbid obesity Other specified peripheral vascular diseases Pressure ulcer Problem with dialysis access Pulmonary hypertension Shortness of breath on exertion Spitting suture Syncope Transfusion (red blood cell) associated hemochromatosis Trigger finger Type 2 diabetes mellitus Type 2 diabetes mellitus with diabetic polyneuropathy Ulcer of left lower extremity with fat layer exposed Wears glasses Home Medications ascorbic acid (vitamin C) 1,000 mg tablet (Vitamin C) 1,000 mg PO DAILY suppliment 12/02/16 [History Last Taken Unknown] buspirone 10 mg tablet 10 mg PO BID depression 12/02/16 [History Last Taken 09/09/21 05:00] dicyclomine 20 mg tablet 20 mg PO TID IBS 12/02/16 [History Last Taken Unknown] venlafaxine 150 mg capsule,extended release 24 hr (Effexor XR) 150 mg PO DAILY depression 12/02/16 [History Last Taken 09/09/21 05:00] atorvastatin 40 mg tablet 40 mg PO DAILY cholesterol 05/23/20 [History Last Taken 07/22/20] insulin NPH isoph U-100 human 100 unit/mL (3 mL) subcutaneous pen (Humulin N NPH U-100 Insulin KwikPen) 14 units SQ QHS DIABETES 05/23/20 [History Last Taken Unknown] pyridoxine (vitamin B6) 100 mg tablet 100 mg PO DAILY suppliment 05/23/20 [History Last Taken Unknown] gabapentin 100 mg capsule (Neurontin) 800 mg PO BID 06/13/20 [History Last Taken 09/09/21 05:00] simethicone 80 mg chewable tablet (Gas Relief (simethicone)) 80 mg PO PRN PRN Indigestion 03/06/21 [History Last Taken Unknown] calcium acetate(phosphat bind) 667 mg capsule 2,001 mg PO BID Check with primary doctor 03/07/21 [History Last Taken Unknown] midodrine 5 mg tablet 10 mg PO TIDCM #90 tabs 04/18/21 [Rx Last Taken 09/09/21 05:00] vitamin B complex and vitamin C no.20-folic acid 1 mg capsule 1 cap PO TUTHSA 09/06/21 [History Last Taken Unknown] warfarin 5 mg tablet 15 mg PO SHARP blood thinner 09/06/21 [History Last Taken 09/05/21] warfarin 6 mg tablet 12.5 mg PO MOTUWETHFRSA 09/06/21 [History Last Taken 09/05/21] Allergy/AdvReac Type Severity Reaction Status Date / Time cephalexin Allergy Hives Verified 10/18/21 12:37 Penicillins Allergy Hives Verified 10/18/21 12:37 Family History Mother Diabetes Heart disease Hypertension Surgical History History of arteriovenostomy for renal dialysis (~07/2020) History of carpal tunnel surgery of left wrist History of carpal tunnel surgery of right wrist History of colonoscopy History of surgery History of tonsillectomy and adenoidectomy Social History Smoking Status: Former smoker alcohol intake: never ROS ROS ED Constitutional Constitutional ED: Reports sweats; Denies chills or fever(s) Eyes Eyes: Denies blurry vision ENT ENT ED: Denies rhinorrhea or sore throat Cardiovascular Cardiovascular: Reports as per HPI Respiratory/Chest Respiratory/Chest: Denies cough, dyspnea or sputum Gastrointestinal Gastrointestinal: Reports other Details: Positive belching as in HPI ; Denies abdominal pain, nausea or vomiting Genitourinary Genitourinary ED: Denies hematuria Musculoskeletal Musculoskeletal: Denies back pain Integumentary Denies Abrasions Neurologic Neurologic: Denies headache(s) Endocrine Endocrinology: Denies polydipsia or polyuria Hematologic/Lymphatic Hematologic/Lymphatic: Reports easy bruising Allergic/Immunologic Allergic/Immunologic ED: Denies urticaria EXAM Physical Exam Const Vital Signs: 12/23/21 07:45 12/23/21 07:48 12/23/21 07:48 Temperature 97.8 F 97.8 F Temperature Source Temporal Temporal Pulse Rate 85 85 Respiratory Rate 19 H 19 H Respiratory Effort Normal Non-Labored Blood Pressure 171/76 H 171/76 H Blood Pressure Mean 107 107 Pulse Ox 100 100 Oxygen Delivery Method Room Air Room Air Positive well nourished and obese General Appearance ED: NAD Nutritional Appearance: obese HEENT Reports moist mucous membranes Eyes General Eye ED: Negative for scleral icterus Chest Wall inspection of chest normal and palpation of chest normal Resp normal respiratory effort and clear to auscultation bilaterally Resp Narrative: I do not hear rales with the patient sitting back or when he sits up and I listen to the bases. Auscultation: Negative for rales, rhonchi or wheezes Cardio regular rate and regular rhythm Peripheral Pulses: pulses 2+ throughout GI normal to inspection, nondistended, normoactive bowel sounds and soft to palpation Back/Spine no CVA tenderness Extremity Extremity Narrative: No notable tenderness. He does have palpable thrill in fistula on the right forearm area Psych mental status grossly normal Skin no rashes or lesions noted Heart Score History: Moderately Suspicious ECG: Nonspecific Repolarization Age: >45 - <65 years Risk Factors: >/= 3 Risk Factors or History of CAD Troponin: </= Normal Limit Score: 5 MDM MDM MDM Narrative Medical decision making narrative: CBC shows minimal elevation white count minimal anemia. INR is therapeutic. Electrolytes are consistent with his chronic renal disease. Troponin was negative at this point but the patient just had an episode of pain. But with elevated heart score and his overall story I think coming in the hospital is appropriate. I discussed the case with the hospitalist Lab Data Attestation: I reviewed the patient's lab results. Labs: Laboratory Results - last 24 hr 12/23/21 12/23/21 12/23/21 07:29 07:29 07:50 WBC 12.6 H RBC 3.08 L Hgb 10.6 L Hct 30.7 L MCV 99.7 H MCH 34.4 H MCHC 34.5 RDW Std Deviation 49.4 H RDW Coeff of Kassandra 13.5 Plt Count 222 MPV 10.7 Immature Gran % (Auto) 0.300 Neut % (Auto) 62.1 Lymph % (Auto) 24.3 [place] % (Auto) 10.8 H Eos % (Auto) 2.1 Baso % (Auto) 0.4 Absolute Neuts (auto) 7.8 H Absolute Lymphs (auto) 3.06 Nucleated RBC % 0 PT 38.4 H INR 4.0 H* Sodium 132 L Potassium 6.2 H* Chloride 94 L Carbon Dioxide 29.0 Anion Gap 9 BUN 77 H Creatinine 9.22 H* Estim Creat Clear Calc 8.24 Est GFR (MDRD) Af Amer 8 L Est GFR (MDRD) Non-Af 6 L BUN/Creatinine Ratio 8.4 L Glucose 173 H Calcium 9.5 Troponin I High Sens 21 Radiography Diagnostic Testing: Clinical Impression(s) from Imaging Studies Chest X-Ray 12/23/21 07:55 IMPRESSION: No acute pulmonary process, no interval change Electronically Signed: Giovanni Huston MD at 8:20 EDT , EKG Initial EKG: Comments: EKG done for chest pain read by me shows a sinus rhythm with overall rate of 79. No ventricular ectopy. Nonspecific ST changes but no significant ST depression or elevation. But there is some very subtle ST change both in the lateral leads and inferiorly. The old EKG I have has extremely variable bAceline and is A. fib but the ST changes do appear to be somewhat new. Discharge Plan Triage Chief Complaint: Chest Pain ED Provider: Abhishek Montero Dx/Rx/DC Orders Clinical Impression: Chest pain, Renal failure, chronic Prescriptions: No Action ascorbic acid (vitamin C) [Vitamin C] 1,000 MG tablet 1,000 mg PO DAILY Label Comments: vitamin venlafaxine [Effexor XR] 150 MG capsule 150 mg PO DAILY Label Comments: depression dicyclomine 20 MG tablet 20 mg PO TID Label Comments: fatoumata buspirone 10 MG tablet 10 mg PO BID Label Comments: anxiety atorvastatin 40 MG tablet 40 mg PO DAILY pyridoxine (vitamin B6) 100 MG tablet 100 mg PO DAILY Humulin N NPH Insulin KwikPen 100 UNIT/ML insulin pen 14 units SQ QHS gabapentin [Neurontin] 100 MG capsule 800 mg PO BID simethicone [Gas Relief (simethicone)] 80 MG tablet,chewable 80 mg PO PRN PRN (Reason: Indigestion) calcium acetate(phosphat bind) 667 mg capsule 2,001 mg PO BID Label Comments: TAKE 1 CAPSULE DAILY midodrine 5 mg Tablet 10 mg PO TIDCM Qty: 90 0RF warfarin 6 mg Tablet 12.5 mg PO MOTUWETHFRSA warfarin 5 MG tablet 15 mg PO SHARP B complex with C 20-folic acid 1 CAPSULE capsule 1 cap PO TUTHSA Primary Care Provider: Yola Ng Referrals: Yola Ng MD [Primary Care Provider] - Disposition Disposition: Acute Care Hospital [facility]
[2021-12-23 08:21] LABS: Anion Gap 9 (5-15); BUN 77 mg/dL (7-18); BUN/Creat Ratio 8.4 RATIO (10-20); Calcium,Total 9.5 mg/dL (8.5-10.1); Chloride 94 mmol/L (98-107); Creatinine, Serum 9.22 mg/dL (0.70-1.30); EST Glomerular Filtration Rate 6 mL/min (>60); Est Glom Filt Rate - Afr Amer 8 mL/min (>60); Estimated Creatinine Clearance 8.24 ml/min; Glucose 173 mg/dL (74-106); Potassium 6.2 mmol/L (3.5-5.1); Sodium Level 132 mmol/L (136-145); Troponin-I HS (w/2H Reflex) 21 pg/mL (3.0-78.0)
[2021-12-23 08:45] LABS: Prothrombin Time (Protime)PT. 38.4 SECONDS (11.7-14.9)
--- NOTE | 2021-12-23 09:19 | HP.PCM.HOS_ITS ---
HPI - General General Date of Admission: 12/23/21 Date of Service: 12/23/21 Chief Complaint: Chest pain HPI Narrative MAREK RAMSAY, is a 61 M who presents with chest pain. Patient has significant past medical history including end-stage renal disease, paroxysmal A. fib as well as diabetes mellitus type 2. Patient chest pain started on the morning of his admission. Patient had apparently gone through his dialysis was waiting for dialysis to be initiated he did develop chest pain. Pain was described as pressure located in the retrosternal region. He also did complain of excessive belching as well as diaphoresis. Patient was subsequently sent to the ED as a result. 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 Colonization status Congestive heart failure (CHF) Coronary artery disease COVID CPAP (continuous positive airway pressure) dependence Delayed wound healing Depression Dialysis catheter clot or failure Diastolic CHF, acute Dietary restriction Dupuytrens contracture DVT (deep venous thrombosis) Edema of left lower leg due to peripheral venous insufficiency End stage renal disease Equinus contracture of left ankle ESRD (end stage renal disease) on dialysis Former smoker Gastric reflux Hammer toe of left foot Hemodialysis patient High cholesterol History of DVT of lower extremity History of edema History of IBS History of pain when walking History of renal disease History of stress test Hx of echocardiogram Insulin dependent diabetes mellitus Loss of consciousness Loss of hearing Malnutrition Morbid obesity Other specified peripheral vascular diseases Pressure ulcer Problem with dialysis access Pulmonary hypertension Shortness of breath on exertion Spitting suture Syncope Transfusion (red blood cell) associated hemochromatosis Trigger finger Type 2 diabetes mellitus Type 2 diabetes mellitus with diabetic polyneuropathy Ulcer of left lower extremity with fat layer exposed Wears glasses Home Medications ascorbic acid (vitamin C) 1,000 mg tablet (Vitamin C) 1,000 mg PO DAILY suppliment 12/02/16 [History Last Taken 12/22/21] buspirone 10 mg tablet 10 mg PO BID depression 12/02/16 [History Last Taken 12/22/21] dicyclomine 20 mg tablet 20 mg PO TID IBS 12/02/16 [History Last Taken 12/22/21] venlafaxine 150 mg capsule,extended release 24 hr (Effexor XR) 150 mg PO DAILY depression 12/02/16 [History Last Taken 12/22/21] insulin NPH isoph U-100 human 100 unit/mL (3 mL) subcutaneous pen (Humulin N NPH U-100 Insulin KwikPen) 18 units SQ QHS DIABETES 05/23/20 [History Last Taken 12/22/21] simethicone 80 mg chewable tablet (Gas Relief (simethicone)) 80 mg PO TID PRN PRN Indigestion 03/06/21 [History Last Taken 12/22/21] calcium acetate(phosphat bind) 667 mg capsule 1,334 - 2,001 mg PO TIDCM Check with primary doctor 03/07/21 [History Last Taken 12/22/21] warfarin 5 mg tablet 15 mg PO SHARP blood thinner 09/06/21 [History Last Taken 12/19/21] warfarin 6 mg tablet 12.5 mg PO MOTUWETHFRSA 09/06/21 [History Last Taken 12/21/21] atorvastatin 80 mg tablet 80 mg PO DAILY cholesterol 12/23/21 [History Last Taken 12/22/21] cinnamon bark 500 mg capsule 500 mg PO DAILY supplemtn 12/23/21 [History Last Taken 12/22/21] gabapentin 600 mg tablet 600 mg PO BID nerve pain 12/23/21 [History Last Taken 12/22/21] insulin NPH isoph U-100 human 100 unit/mL (3 mL) subcutaneous pen (Novolin N Flexpen) 5 unit subcut DAILY dm 12/23/21 [History Last Taken 12/22/21] midodrine 10 mg tablet 10 mg PO TID bp 12/23/21 [History Last Taken 12/23/21] nifedipine 90 mg tablet,extended release 24 hr 90 mg PO DAILY bp 12/23/21 [History Last Taken 12/22/21] pyridoxine (vitamin B6) 50 mg tablet (Vitamin B-6) 50 mg PO DAILY 12/23/21 [History Last Taken 12/22/21] sucroferric oxyhydroxide 500 mg chewable tablet (Velphoro) 500 mg PO TUTHSA 12/23/21 [History Last Taken 12/21/21] Allergy/AdvReac Type Severity Reaction Status Date / Time cephalexin Allergy Hives Verified 10/18/21 12:37 Penicillins Allergy Hives Verified 10/18/21 12:37 Family History Mother Diabetes Heart disease Hypertension Surgical History History of arteriovenostomy for renal dialysis (~07/2020) History of carpal tunnel surgery of left wrist History of carpal tunnel surgery of right wrist History of colonoscopy History of surgery History of tonsillectomy and adenoidectomy Social History (Updated 12/23/21 @ 10:06 by Monica Hale) housing: house Smoking Status: Former smoker alcohol intake: never ROS ROS Narrative GENERAL: denies fever, chills, night sweats, weight loss, anorexia HEENT: denies headache, sinus congestion, or drainage, dysphagia RESPIRATORY: denies cough, sputum production, shortness of breath, CARDIAC: chest pain,denies palpitations, orthopnea, PND GASTROINTESTINAL: denies abdominal pain, nausea, vomiting, melena, GENITOURINARY: denies dysuria, urgency, frequency, heamaturia EXTREMITY: denies swelling MUSCULOSKELETAL: denies current joint pain or tenderness NEUROLOGIC: denies focal numbness, weakness, tingling HEMATOLOGIC: denies easy bruising and/or hemorrhage INTEGUMENT: denies rashes PSYCHIATRIC: denies suicidal or homicidal ideation Vital Signs Vital Signs Vital Signs: 12/23/21 07:45 12/23/21 07:48 12/23/21 07:48 Temperature 97.8 F 97.8 F Temperature Source Temporal Temporal Pulse Rate 85 85 Respiratory Rate 19 H 19 H Respiratory Effort Normal Non-Labored Blood Pressure 171/76 H 171/76 H Blood Pressure Mean 107 107 Pulse Ox 100 100 Oxygen Delivery Method Room Air Room Air 12/23/21 09:15 12/23/21 09:15 12/23/21 09:15 Temperature 97.3 F L Temperature Source Temporal Pulse Rate 68 68 Respiratory Rate 16 16 Respiratory Effort Blood Pressure 144/65 H 144/65 H Blood Pressure Mean 91 91 Pulse Ox 94 94 94 Oxygen Delivery Method Room Air Room Air Weight Weight: 147.3 kg Body Mass Index (BMI) 49.4 Physical Exam Narrative GENERAL: cooperative HEENT: Atraumatic; normocephalic EYES; Anicteric, Normal Conjunctiva NECK; supple, normal thyroid, RESPIRATORY: Diminished to auscultation CARDIOVASCULAR: Regular S1 S2, GI: soft, normoactive bowel sounds, : No Renal angle tenderness; EXTREMITIES: No edema, no clubbing, MUSCULOSKELETAL: no muscle wasting NEURO: Awake; no lateralizing signs. SKIN: No Rash PSYCH; Flat affect Results Lab / Micro Data Result Diagrams: 12/23/21 07:29 12/23/21 07:29 Labs: Laboratory Results - last 24 hr 12/23/21 07:29: WBC 12.6 H, RBC 3.08 L, Hgb 10.6 L, Hct 30.7 L, MCV 99.7 H, MCH 34.4 H, MCHC 34.5, RDW Std Deviation 49.4 H, RDW Coeff of Kassandra 13.5, Plt Count 222, MPV 10.7, Immature Gran % (Auto) 0.300, Neut % (Auto) 62.1, Lymph % (Auto) 24.3, [place] % (Auto) 10.8 H, Eos % (Auto) 2.1, Baso % (Auto) 0.4, Absolute Neuts (auto) 7.8 H, Absolute Lymphs (auto) 3.06, Nucleated RBC % 0 12/23/21 07:29: Sodium 132 L, Potassium 6.2 H*, Chloride 94 L, Carbon Dioxide 29.0, Anion Gap 9, BUN 77 H, Creatinine 9.22 H*, Estim Creat Clear Calc 8.24, Est GFR (MDRD) Af Amer 8 L, Est GFR (MDRD) Non-Af 6 L, BUN/Creatinine Ratio 8.4 L, Glucose 173 H, Calcium 9.5, Troponin I High Sens 21 12/23/21 07:50: PT 38.4 H, INR 4.0 H* Radiology Impression Chest X-Ray 12/23/21 07:55 IMPRESSION: No acute pulmonary process, no interval change Electronically Signed: Giovanni Huston MD at 8:20 EDT Reading Location ID and State: [facility] / [place] , Service support , Assessment & Plan Assessment/Plan (1) Chest pain: PLAN: Plan Patient is a 61-year-old male with multiple comorbidities presenting with chest pain 1. Chest pain ? Patient has been admitted to a monitored bed, subsequent serial cardiac enzymes and EKGs ordered to rule out AL. If AL is ruled out patient to undergo subsequent evaluation with a nuclear stress test 2. Hyperkalemia ? Secondary to end-stage renal disease patient is on hemodialysis consult has been placed to nephrology for dialysis 3.? End-stage renal disease ?On dialysis on Tuesdays and Saturdays 4.? Diabetes mellitus type II -patient's oral hypoglycemics held. Placed on long acting insulin, Accu-Cheks a.c. and at bedtime and covered with sliding scale insulin 5.? Paroxysmal A. fib ? Rate controlled on systemic anticoagulation with Coumadin INR is therapeutic 6.? History of previous DVT involving lower extremity ?Patient is on warfarin 7.? Class III obesity with BMI of 47.3 ?Weight loss advised 8.? Chronic congestive heart failure with preserved ejection fraction ? Stable, currently not in exacerbation 9. Dyslipidemia -Patient is on statin therapy, continued at home dose 10. Depression ? Patient is on Effexor did continue 11. DVT prophylaxis ?Patient is on warfarin Charges/Coding Visit Charges OBSV E&M: 66444 Initial observation care L3
[2021-12-23 09:52] LABS: Reflex Troponin-HS? (from REC) Y
--- NOTE | 2021-12-23 10:00 | ECHOCS_ITS ---
Reason For Study: Chest Pain Procedure This was a 2D Doppler, Color Flow transthoracic echocardiogram. Technically difficult study. Patient unable to lay in proper position due to continuous belching. Patient scanned sitting up. Exam performed portable in patient room. Left Ventricle Normal LV size. Mild concentric left ventricular hypertrophy. The left ventricular ejection fraction is 55 %. Mild posterior hypokinesis. Right Ventricle Normal right ventricle. Atria The left atrium is severely enlarged. Normal right atrium. Mitral Valve The mitral valve is structurally normal. No prolapse or stenosis seen. Tricuspid Valve The tricuspid valve is not well visualized. Aortic Valve Normal aortic valve. Pulmonic Valve The pulmonic valve is not well visualized. Great Vessels Normal sized aortic root. Pericardium/Pleural No pericardial effusion. Medication Diluted definity 4ml given slow IV push to enhance endocardial definition. MMode/2D Measurements & Calculations LVIDd: 5.4 cm IVSd: 1.3 cm LA dimension: 5.2 cm LVIDs: 3.8 cm LVPWd: 1.3 cm FS: 29.7 % LAV(MOD-bp): 86.9 ml LA A4 area: 24.8 cm2 RA A4 area: 21.3 cm2 LAV(MOD-bp) Indexed: 35.1 ml/m2 LAV(MOD-sp2): 93.2 ml LAV(MOD-sp4): 77.9 ml Time Measurements MV dec time: 0.20 sec Doppler Measurements & Calculations MV E max leon: 124.0 cm/sec Lat Peak E' Leon: 13.7 cm/sec Med Peak E' Leon: 13.6 cm/sec E/E' lat: 9.0 E/E' med: 9.1 Ao V2 max: 162.2 cm/sec LV V1 max: 107.2 cm/sec PA V2 max: 108.2 cm/sec Ao max P.5 mmHg LV V1 max P.6 mmHg ECHO/Echo Complete W/ Contrast Interpretation Summary The study was technically difficult. Mild concentric left ventricular hypertrophy. The left ventricular ejection fraction is 55 %. Mild posterior hypokinesis The left atrium is severely enlarged. The study was technically difficult. Ordering Physician: Karlos Man Referring Physician: Yola Ng M.D. Performed By: Omsin Potts RCS
[2021-12-23 11:21] LABS: Troponin-I HS 124 pg/mL (3.0-78.0)
[2021-12-23] MEDS: Calcium Acetate 667 MG Capsule 1334 MG PO ×2 (11:46→23:32)
[2021-12-23] MEDS: Venlafaxine XR 150 MG Capsule PO (11:47)
[2021-12-23] MEDS: Dicyclomine 10 MG Capsule 20 MG PO ×2 (11:48→23:32)
[2021-12-23] MEDS: Insulin NPH Human 100 UNITS/ML PEN SC (11:56)
--- NOTE | 2021-12-23 12:08 | CON.PCM.CA_ITS ---
Assessment & Plan Assessment/Plan (1) NSTEMI (non-ST elevated myocardial infarction): PLAN: Aspirin. Nitrates. Start on beta-blockers. Check 2D echocardiogram with Doppler. Recommended coronary angiography with possible revascularization. Risks benefits and alternatives explained. He understands and wishes to proceed. We will schedule him for coronary angiography tomorrow morning. Note is made of elevated INR. For vitamin K today. (2) Hypertension: PLAN: Start on nitro drip. Start beta-blockers. (3) Atrial fibrillation: PLAN: History of paroxysmal atrial fibrillation. On warfarin. Start beta- ashlee for better ventricular rate control. (4) End stage renal disease: PLAN: On hemodialysis. HPI Consult Data Date of Consult: 12/23/21 HPI Narrative HPI Narrative: 61-year-old gentleman who presented with complaints of chest pain that started this morning. He has past medical history significant for end-stage renal disease on hemodialysis, paroxysmal atrial fibrillation and diabetes mellitus. According to the patient, the pain is perceived as heaviness across his anterior chest. No associated shortness of breath. Per patient, the pain gets better when he belches. No previous history of angina pectoris. His first set of troponin was negative. Second set was elevated. [facility] Medical History (Updated 12/23/21 @ 12:[address] 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 Colonization status Congestive heart failure (CHF) Coronary artery disease COVID CPAP (continuous positive airway pressure) dependence Delayed wound healing Depression Dialysis catheter clot or failure Diastolic CHF, acute Dietary restriction Dupuytrens contracture DVT (deep venous thrombosis) Edema of left lower leg due to peripheral venous insufficiency End stage renal disease Equinus contracture of left ankle ESRD (end stage renal disease) on dialysis Former smoker Gastric reflux Hammer toe of left foot Hemodialysis patient High cholesterol History of DVT of lower extremity History of edema History of IBS History of pain when walking History of renal disease History of stress test Hx of echocardiogram Insulin dependent diabetes mellitus Loss of consciousness Loss of hearing Malnutrition Morbid obesity Other specified peripheral vascular diseases Pressure ulcer Problem with dialysis access Pulmonary hypertension Shortness of breath on exertion Spitting suture Syncope Transfusion (red blood cell) associated hemochromatosis Trigger finger Type 2 diabetes mellitus Type 2 diabetes mellitus with diabetic polyneuropathy Ulcer of left lower extremity with fat layer exposed Wears glasses Home Medications ascorbic acid (vitamin C) 1,000 mg tablet (Vitamin C) 1,000 mg PO DAILY suppliment 12/02/16 [History Last Taken 12/22/21] buspirone 10 mg tablet 10 mg PO BID depression 12/02/16 [History Last Taken 12/22/21] dicyclomine 20 mg tablet 20 mg PO TID IBS 12/02/16 [History Last Taken 12/22/21] venlafaxine 150 mg capsule,extended release 24 hr (Effexor XR) 150 mg PO DAILY depression 12/02/16 [History Last Taken 12/22/21] insulin NPH isoph U-100 human 100 unit/mL (3 mL) subcutaneous pen (Humulin N NPH U-100 Insulin KwikPen) 18 units SQ QHS DIABETES 05/23/20 [History Last Taken 12/22/21] simethicone 80 mg chewable tablet (Gas Relief (simethicone)) 80 mg PO TID PRN PRN Indigestion 03/06/21 [History Last Taken 12/22/21] calcium acetate(phosphat bind) 667 mg capsule 1,334 - 2,001 mg PO TIDCM Check with primary doctor 03/07/21 [History Last Taken 12/22/21] warfarin 5 mg tablet 15 mg PO SHARP blood thinner 09/06/21 [History Last Taken 12/19/21] warfarin 6 mg tablet 12.5 mg PO MOTUWETHFRSA 09/06/21 [History Last Taken 12/21/21] atorvastatin 80 mg tablet 80 mg PO DAILY cholesterol 12/23/21 [History Last Taken 12/22/21] cinnamon bark 500 mg capsule 500 mg PO DAILY supplemtn 12/23/21 [History Last Taken 12/22/21] gabapentin 600 mg tablet 600 mg PO BID nerve pain 12/23/21 [History Last Taken 12/22/21] insulin NPH isoph U-100 human 100 unit/mL (3 mL) subcutaneous pen (Novolin N Flexpen) 5 unit subcut DAILY dm 12/23/21 [History Last Taken 12/22/21] midodrine 10 mg tablet 10 mg PO TID bp 12/23/21 [History Last Taken 12/23/21] nifedipine 90 mg tablet,extended release 24 hr 90 mg PO DAILY bp 12/23/21 [History Last Taken 12/22/21] pyridoxine (vitamin B6) 50 mg tablet (Vitamin B-6) 50 mg PO DAILY 12/23/21 [History Last Taken 12/22/21] sucroferric oxyhydroxide 500 mg chewable tablet (Velphoro) 500 mg PO TUTHSA 12/23/21 [History Last Taken 12/21/21] Allergy/AdvReac Type Severity Reaction Status Date / Time cephalexin Allergy Hives Verified 10/18/21 12:37 Penicillins Allergy Hives Verified 10/18/21 12:37 Family History Mother Diabetes Heart disease Hypertension Surgical History History of arteriovenostomy for renal dialysis (~07/2020) History of carpal tunnel surgery of left wrist History of carpal tunnel surgery of right wrist History of colonoscopy History of surgery History of tonsillectomy and adenoidectomy Social History (Updated 12/23/21 @ 10:06 by Monica Hale) housing: house Smoking Status: Former smoker alcohol intake: never Physical Exam Narrative Morbidly obese. Appears comfortable. Heart sounds 1 and 2 are normal. No murmurs or rubs are noted. Chest clear to auscultation bilaterally. Abdomen soft. Alert oriented x3. No ankle edema noted. Risk Stratification Risk Stratification Applicable: No Objective Data Vital Signs: Vital Signs Temp Pulse Resp BP Pulse Ox O2 Del Method O2 Flow Rate 98 F 83 15 173/73 H 98 Nasal Cannula 2 12/23/21 11:17 12/23/21 11:17 12/23/21 11:17 12/23/21 11:17 12/23/21 11:17 12/23/21 11:17 12/23/21 11:17 Oxygen Flow Rate (L/min) 2 Oxygen Delivery Method Nasal Cannula Weight: 313 lb 7.957 oz Body Mass Index (BMI) 47.6 Lab / Micro Data Result Diagrams: 12/23/21 07:29 12/23/21 07:29 Labs: Laboratory Results - last 24 hr 12/23/21 07:29: WBC 12.6 H, RBC 3.08 L, Hgb 10.6 L, Hct 30.7 L, MCV 99.7 H, MCH 34.4 H, MCHC 34.5, RDW Std Deviation 49.4 H, RDW Coeff of Kassandra 13.5, Plt Count 222, MPV 10.7, Immature Gran % (Auto) 0.300, Neut % (Auto) 62.1, Lymph % (Auto) 24.3, [place] % (Auto) 10.8 H, Eos % (Auto) 2.1, Baso % (Auto) 0.4, Absolute Neuts (auto) 7.8 H, Absolute Lymphs (auto) 3.06, Nucleated RBC % 0 12/23/21 07:29: Sodium 132 L, Potassium 6.2 H*, Chloride 94 L, Carbon Dioxide 29.0, Anion Gap 9, BUN 77 H, Creatinine 9.22 H*, Estim Creat Clear Calc 8.24, Est GFR (MDRD) Af Amer 8 L, Est GFR (MDRD) Non-Af 6 L, BUN/Creatinine Ratio 8.4 L, Glucose 173 H, Calcium 9.5, Troponin I High Sens 21 12/23/21 07:50: PT 38.4 H, INR 4.0 H* 12/23/21 10:30: Troponin I High Sens 124 H* Cardiology Labs/Tests 12/23/21 07:29: WBC 12.6 H, RBC 3.08 L, Hgb 10.6 L, Hct 30.7 L, MCV 99.7 H, MCH 34.4 H, MCHC 34.5, Plt Count 222, MPV 10.7, Immature Gran % (Auto) 0.300, Neut % (Auto) 62.1, Lymph % (Auto) 24.3, [place] % (Auto) 10.8 H, Eos % (Auto) 2.1, Baso % (Auto) 0.4, Absolute Neuts (auto) 7.8 H, Nucleated RBC % 0 12/23/21 07:29: Sodium 132 L, Potassium 6.2 H*, Chloride 94 L, Carbon Dioxide 29.0, Anion Gap 9, BUN 77 H, Creatinine 9.22 H*, Est GFR (MDRD) Af Amer 8 L, Est GFR (MDRD) Non-Af 6 L, BUN/Creatinine Ratio 8.4 L, Glucose 173 H, Calcium 9.5 12/23/21 07:50: PT 38.4 H, INR 4.0 H* Rhythm: EKG: ECHO: Stress Test: Cardiac Cath: PCI: CT Surgery: Holter monitor: EPS: PPM: CXR: Chest CT Scan: Radiography Diagnostic Testing: Radiology Impression Chest X-Ray 12/23/21 07:55 IMPRESSION: No acute pulmonary process, no interval change Electronically Signed: Giovanni Huston MD at 8:20 EDT ,
[2021-12-23] MEDS: Gabapentin 600 MG Tablet PO ×2 (12:09→23:32)
[2021-12-23 12:15] LABS: Bedside Glucose 215 mg/dL (74-106)
--- NOTE | 2021-12-23 12:28 | PCM.CONS.R ---
Assessment & Plan Assessment/Plan (1) ESRD (end stage renal disease) on dialysis: PLAN: dialysis today and TTS (2) Hypertension: PLAN: stop midodrine (3) Chest pain: PLAN: +troponin, cardiology consult (4) Diabetes mellitus type 2 in obese: (5) Atrial fibrillation: PLAN: anticoagulated (6) Hyperkalemia: PLAN: kayexalate, correct with dialysis HPI Consult Data Date of Consult: 12/23/21 HPI Narrative Reason for Consultation: ESRD, hyperkalemia HPI Narrative: MAREK RAMSAY, is an obese 61 M with ESRD due to diabetes presents to ED with acute chest pain with shortness of breath, diaphoresis at dialysis center this morning. He was sent to ED without dialysis. His potassium was elevated at 6.6 with positive troponin levels drawn in ED. Cardiology was consulted. His last dialysis was Monday. He has consistently elevated potassium levels with high fluid gains at the chronic unit despite education. Currently chest pain and dyspnea has subsided. Stress test ordered. He is on anticoagulation for history of afib. [facility] Medical History (Updated 12/23/21 @ 14:[address] Lillian Acharya DO) (HFpEF) heart failure with preserved ejection fraction Acute exacerbation of CHF (congestive heart failure) Dhmka-yg-unjjxri kidney injury Anemia Anxiety Atrial fibrillation Blackout Cardiology follow-up encounter Chest pain CHF (congestive heart failure) Chronic kidney failure Chronic renal failure, 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 Colonization status Congestive heart failure (CHF) Coronary artery disease COVID CPAP (continuous positive airway pressure) dependence Delayed wound healing Depression Dialysis catheter clot or failure Diastolic CHF, acute Dietary restriction Dupuytrens contracture DVT (deep venous thrombosis) Edema of left lower leg due to peripheral venous insufficiency End stage renal disease Equinus contracture of left ankle ESRD (end stage renal disease) on dialysis Former smoker Gastric reflux Hammer toe of left foot Hemodialysis patient High cholesterol History of DVT of lower extremity History of edema History of IBS History of pain when walking History of renal disease History of stress test Hx of echocardiogram Insulin dependent diabetes mellitus Loss of consciousness Loss of hearing Malnutrition Morbid obesity Other specified peripheral vascular diseases Pressure ulcer Problem with dialysis access Pulmonary hypertension Shortness of breath on exertion Spitting suture Syncope Transfusion (red blood cell) associated hemochromatosis Trigger finger Type 2 diabetes mellitus Type 2 diabetes mellitus with diabetic polyneuropathy Ulcer of left lower extremity with fat layer exposed Wears glasses Home Medications ascorbic acid (vitamin C) 1,000 mg tablet (Vitamin C) 1,000 mg PO DAILY suppliment 12/02/16 [History Last Taken 12/22/21] buspirone 10 mg tablet 10 mg PO BID depression 12/02/16 [History Last Taken 12/22/21] dicyclomine 20 mg tablet 20 mg PO TID IBS 12/02/16 [History Last Taken 12/22/21] venlafaxine 150 mg capsule,extended release 24 hr (Effexor XR) 150 mg PO DAILY depression 12/02/16 [History Last Taken 12/22/21] insulin NPH isoph U-100 human 100 unit/mL (3 mL) subcutaneous pen (Humulin N NPH U-100 Insulin KwikPen) 18 units SQ QHS DIABETES 05/23/20 [History Last Taken 12/22/21] simethicone 80 mg chewable tablet (Gas Relief (simethicone)) 80 mg PO TID PRN PRN Indigestion 03/06/21 [History Last Taken 12/22/21] calcium acetate(phosphat bind) 667 mg capsule 1,334 - 2,001 mg PO TIDCM Check with primary doctor 03/07/21 [History Last Taken 12/22/21] warfarin 5 mg tablet 15 mg PO SHARP blood thinner 09/06/21 [History Last Taken 12/19/21] warfarin 6 mg tablet 12.5 mg PO MOTUWETHFRSA 09/06/21 [History Last Taken 12/21/21] atorvastatin 80 mg tablet 80 mg PO DAILY cholesterol 12/23/21 [History Last Taken 12/22/21] cinnamon bark 500 mg capsule 500 mg PO DAILY supplemtn 12/23/21 [History Last Taken 12/22/21] gabapentin 600 mg tablet 600 mg PO BID nerve pain 12/23/21 [History Last Taken 12/22/21] insulin NPH isoph U-100 human 100 unit/mL (3 mL) subcutaneous pen (Novolin N Flexpen) 5 unit subcut DAILY dm 12/23/21 [History Last Taken 12/22/21] midodrine 10 mg tablet 10 mg PO TID bp 12/23/21 [History Last Taken 12/23/21] nifedipine 90 mg tablet,extended release 24 hr 90 mg PO DAILY bp 12/23/21 [History Last Taken 12/22/21] pyridoxine (vitamin B6) 50 mg tablet (Vitamin B-6) 50 mg PO DAILY 12/23/21 [History Last Taken 12/22/21] sucroferric oxyhydroxide 500 mg chewable tablet (Velphoro) 500 mg PO TUTHSA 12/23/21 [History Last Taken 12/21/21] Allergy/AdvReac Type Severity Reaction Status Date / Time cephalexin Allergy Hives Verified 10/18/21 12:37 Penicillins Allergy Hives Verified 10/18/21 12:37 Family History Mother Diabetes Heart disease Hypertension Surgical History History of arteriovenostomy for renal dialysis (~07/2020) History of carpal tunnel surgery of left wrist History of carpal tunnel surgery of right wrist History of colonoscopy History of surgery History of tonsillectomy and adenoidectomy Social History (Updated 12/23/21 @ 10:06 by Monica Hale) housing: house Smoking Status: Former smoker alcohol intake: never ROS Constitutional Constitutional: Denies chills, fever(s) or weakness Eyes Eyes: Denies loss of vision ENT HEENT: Reports nasal congestion Cardiovascular Cardiovascular: Reports chest pain, diaphoresis, dyspnea on exertion and irregular heart rhythm; Denies syncope Respiratory/Chest Respiratory/Chest: Reports dyspnea on exertion and shortness of breath at rest Gastrointestinal Gastrointestinal: Denies abdominal pain, anorexia, diarrhea or dry heaves Genitourinary Genitourinary: Denies change in urinary stream Psychiatric Psychiatric: Denies anxiety or depression Hematologic/Lymphatic Hematologic/Lymphatic: Reports easy bruising Physical Exam Const alert and oriented x3 Nutritional Appearance: obese HEENT normocephalic Resp no use of accessory muscles and clear to auscultation bilaterally Cardio Rhythm: abnormal rhythm GI non-tender and non-distended Auscultation: normoactive bowel sounds Palpation: soft Extremity no clubbing, cyanosis or edema General Extremity: AV fistula Neuro CN's II-XII intact bilaterally Psych cooperative Lab / Micro Data Result Diagrams: 12/23/21 07:29 12/23/21 12:35 Labs: Laboratory Results - last 24 hr 12/23/21 07:29: WBC 12.6 H, RBC 3.08 L, Hgb 10.6 L, Hct 30.7 L, MCV 99.7 H, MCH 34.4 H, MCHC 34.5, RDW Std Deviation 49.4 H, RDW Coeff of Kassandra 13.5, Plt Count 222, MPV 10.7, Immature Gran % (Auto) 0.300, Neut % (Auto) 62.1, Lymph % (Auto) 24.3, [place] % (Auto) 10.8 H, Eos % (Auto) 2.1, Baso % (Auto) 0.4, Absolute Neuts (auto) 7.8 H, Absolute Lymphs (auto) 3.06, Nucleated RBC % 0 12/23/21 07:29: Sodium 132 L, Potassium 6.2 H*, Chloride 94 L, Carbon Dioxide 29.0, Anion Gap 9, BUN 77 H, Creatinine 9.22 H*, Estim Creat Clear Calc 8.24, Est GFR (MDRD) Af Amer 8 L, Est GFR (MDRD) Non-Af 6 L, BUN/Creatinine Ratio 8.4 L, Glucose 173 H, Calcium 9.5, Troponin I High Sens 21 12/23/21 07:50: PT 38.4 H, INR 4.0 H* 12/23/21 10:30: Troponin I High Sens 124 H* 12/23/21 11:56: POC Glucose 215 H Radiology Impression Chest X-Ray 12/23/21 07:55 IMPRESSION: No acute pulmonary process, no interval change Electronically Signed: Giovanni Huston MD at 8:20 EDT ,
[2021-12-23] MEDS: Phytonadione (Vit K1) 5 MG TABLET 10 MG PO (12:36)
[2021-12-23] MEDS: Pyridoxine HCl 50 MG Tablet PO (12:37)
[2021-12-23] MEDS: Metoprolol Tartrate 25 MG Tablet PO ×2 (12:37→23:35)
[2021-12-23] MEDS: Aspirin E.C. 81 MG Tablet PO (12:38)
[2021-12-23] MEDS: Insulin Lispro 100 UNIT/ML INSULN.PEN SC (12:38)
--- NOTE | 2021-12-23 12:49 | CASEMGMT ---
[facility], the following are [facility]-network tertiary facilities: [facility], [place], [facility], [facility], [facility], [facility], and . Ben LUNDY CM
[2021-12-23 12:56] LABS: International Normalized Ratio 3.8; Prothrombin Time (Protime)PT. 37.2 SECONDS (11.7-14.9)
[2021-12-23] MEDS: 0.9% Saline Lock 10 ML Syringe IV (13:06)
[2021-12-23] MEDS: Sodium Polystyrene Sulfonate 15 GM/60 ML UDC 30 GM PO (13:07)
[2021-12-23] MEDS: Nitroglycerin Infusion 250 ML 6 MG CONT INF (13:08)
[2021-12-23 13:25] LABS: Potassium 6.6 mmol/L (3.5-5.1); Troponin-I HS 290 pg/mL (3.0-78.0)
--- NOTE | 2021-12-23 15:00 | CASEMGMT ---
KAMRON GEORGE assessment: Face to Face with patient for initial transition planning/care coordination assessment. KAMRON GEORGE introduced self and role at [facility], pt voices understanding and consents to assessment. Pt is lying in bed in no distress on room air, currently getting dialysis at bedside.? Pt is A/Ox4 and answers all questions appropriately. Care providers, pharmacy,?and demographics verified. ? Presentation: Pt c/o CP and burping while waiting to go in for dialysis Admitting dx: NSTEMI PCP: Berenice Specialists: ryann Acharya; [facility] cardio in [place]; [facility] endo in [place] Preferred Pharmacy: [facility] [place]/mail order Insurance: [facility] Living Will/HPOA: Pt does not have LW/HPOA but would like AD info and this was provided. LNOK: Ria Urrutia, friend; Ingrid Reyes, friend Living Arrangements: Pt lives alone in mobile home with 4 steps in and states no concerns at home. Pt is independent with ADL's. Transportation: Pt drives self and states no transportation concerns. DME/HHC: Pt has a cane and 2 glucometers and states no need for any further DME. Pt states no hx of HHC or SNF in the past. Pt is on OP HD at [facility] at 0730. Pt states no concerns with going home at time of discharge. Pt is retired. Pt states quit smoking cigarettes 22 years ago and rarely drinks ETOH. Pt voices no further concerns/needs. CM to follow for any further discharge planning/needs. Advised pt to ask for CM if any further questions/concerns/needs arise, voices understanding. Pt Goal: Home ? Plan[place] KAMRON GEORGE
--- NOTE | 2021-12-23 21:29 | DIALYSIS ---
HD in accordance with patient's outpatient clinic orders, per Dr. Jarrod Acharya via telephone today (4.5 hours, 2K bath, 137 Na/38 bicarb, BFR/DFR 400/800, target dry weight 140 kg). Printed copy of patient's clinic orders faxed to [facility] PCU at [facility] Acute HD RN's request (sent by [facility] machine joint cutter). Patient tolerated well, except c/o mild to moderate cramping within last hour of HD run. Net UF 2200ml, VSS. Dike inserted between and >2cm from the patient's existing buttonhole scabs. Buttonhole sites unaffected by use of 15g sharp needles for this inpatient run. RN report given at bedside/
[2021-12-23] MEDS: Atorvastatin Calcium 80 MG Tablet PO (23:33)
[2021-12-23] MEDS: busPIRone 5 MG Tablet 10 MG PO (23:33)
[2021-12-23] MEDS: Insulin NPH Human 100 UNITS/ML PEN 18 UNITS SC (23:34)
[2021-12-24] VITALS (22 sets, daily range): BP systolic 97–161; BP diastolic 55–123; PULSE 61–89; RESP 16–25; TEMP 36.1–36.7; O2SAT 91–97
[2021-12-24] LABS: Bedside Glucose 84 mg/dL (74-106)
--- NOTE | 2021-12-24 03:05 | EKG12_ITS ---
Test Reason : AM EKG Blood Pressure : / mmHG Vent. Rate : 072 BPM Atrial Rate : 072 BPM P-R Int : 154 ms QRS Dur : 086 ms QT Int : 428 ms P-R-T Axes : 047 034 049 degrees QTc Int : 468 ms Sinus rhythm with Premature atrial complexes Otherwise normal ECG When compared with ECG of 23-DEC-2021 10:17, No significant change was found Confirmed by DIANA HARVEY, LAURA ([id number]), makeup editor KARRI AMIN ([id number]) on 12/25/2021 7:24:51 AM Referred By: Confirmed By:LAURA ORTIZ MD
[2021-12-24 04:36] LABS: Absolute Lymphocyte Count 2.08 X10^3/uL (0.83-4.51); Absolute Neutrophil Count 6.7 X10^3/uL (2.0-7.7); Basophil# 0.03 X10^3/uL; Basophil% 0.3 % (0-1); Hematocrit 26.7 % (40-54); Hemoglobin 9.2 g/dL (13.0-16.5); Lymphocyte # 2.08 X10^3/ul (0.83-4.51); Lymphocyte % 20.8 % (19-41); Mean Corp Hgb Conc 34.5 g/dL (32-36); Mean Corpuscular Hgb 34.3 pg (27.0-32.0); Mean Corpuscular Volume 99.6 fL (80-94); Mean Platelet Vol. 10.3 fl (6.2-12.0); Monocyte# 0.93 X10^3/uL; Monocyte% 9.3 % (0-10); NRBC Flagged by Analyzer 0 % (0-5); Neutrophil # 6.73 X10^3/uL (2.7-7.7); Neutrophil % 67.2 % (47-70); Platelet Count 174 K/mm3 (150-450); RBC Distribution Width CV 13.5 % (11.6-14.6); RBC Distribution Width SD 49.5 fl (35.1-43.9); Red Blood Count 2.68 M/mm3 (4.6-6.2)
[2021-12-24 04:47] LABS: International Normalized Ratio 2.1; Prothrombin Time (Protime)PT. 23.3 SECONDS (11.7-14.9)
[2021-12-24 04:59] LABS: Anion Gap 5 (5-15); BUN 34 mg/dL (7-18); BUN/Creat Ratio 5.5 RATIO (10-20); Chloride 95 mmol/L (98-107); Creatinine, Serum 6.18 mg/dL (0.70-1.30); EST Glomerular Filtration Rate 10 mL/min (>60); Est Glom Filt Rate - Afr Amer 12 mL/min (>60); Glucose 122 mg/dL (74-106); Magnesium 2.1 mg/dL (1.6-2.6); Phosphorus 3.5 mg/dL (2.5-4.9); Potassium 4.6 mmol/L (3.5-5.1); Sodium Level 133 mmol/L (136-145)
[2021-12-24] MEDS: NIFEdipine 90 MG Tablet PO (06:27)
[2021-12-24] MEDS: Aspirin E.C. 81 MG Tablet PO (06:27)
[2021-12-24] MEDS: Metoprolol Tartrate 25 MG Tablet PO ×2 (06:27→22:10)
[2021-12-24 06:55] LABS: Bedside Glucose 83 mg/dL (74-106)
--- NOTE | 2021-12-24 07:44 | PN.HOSP_ITS ---
Subjective Subjective Patient was admitted with chest pain subsequent serial cardiac enzymes came back consistent with acute non-STEMI treatment initiated per protocol with consultation placed to cardiology plans for patient to undergo left heart catheterization Objective Data Objective Data Vital Signs: Vital Signs Temp Pulse Resp BP Pulse Ox O2 Del Method O2 Flow Rate 97.5 F L 75 17 125/96 H 91 Room Air 2 12/24/21 06:18 12/24/21 06:27 12/24/21 06:18 12/24/21 07:00 12/24/21 07:00 12/24/21 07:00 12/23/21 23:30 Oxygen Flow Rate (L/min) 2 Oxygen Delivery Method Room Air Weight: 142.2 kg Body Mass Index (BMI) 47.6 Intake & Output: Intake and Output for Last 24 Hours 12/22/21 12/23/21 12/24/21 23:59 23:59 23:59 Intake Total 502.2 / 725.2 265.0 / 265.0 Balance 502.2 / 725.2 265.0 / 265.0 Lab / Micro Data Result Diagrams: 12/24/21 04:23 12/24/21 04:23 Labs: Laboratory Results - last 24 hr 12/23/21 07:29: WBC 12.6 H, RBC 3.08 L, Hgb 10.6 L, Hct 30.7 L, MCV 99.7 H, MCH 34.4 H, MCHC 34.5, RDW Std Deviation 49.4 H, RDW Coeff of Kassandra 13.5, Plt Count 222, MPV 10.7, Immature Gran % (Auto) 0.300, Neut % (Auto) 62.1, Lymph % (Auto) 24.3, [place] % (Auto) 10.8 H, Eos % (Auto) 2.1, Baso % (Auto) 0.4, Absolute Neuts (auto) 7.8 H, Absolute Lymphs (auto) 3.06, Nucleated RBC % 0 12/23/21 07:29: Sodium 132 L, Potassium 6.2 H*, Chloride 94 L, Carbon Dioxide 29.0, Anion Gap 9, BUN 77 H, Creatinine 9.22 H*, Estim Creat Clear Calc 8.24, Est GFR (MDRD) Af Amer 8 L, Est GFR (MDRD) Non-Af 6 L, BUN/Creatinine Ratio 8.4 L, Glucose 173 H, Calcium 9.5, Troponin I High Sens 21 12/23/21 07:50: PT 38.4 H, INR 4.0 H* 12/23/21 10:30: Troponin I High Sens 124 H* 12/23/21 11:56: POC Glucose 215 H 12/23/21 12:35: Potassium 6.6 H*, Troponin I High Sens 290 H* 12/23/21 12:35: PT 37.2 H, INR 3.8 12/23/21 23:27: POC Glucose 84 12/24/21 04:23: WBC 10.0, RBC 2.68 L, Hgb 9.2 L, Hct 26.7 L, MCV 99.6 H, MCH 34.3 H, MCHC 34.5, RDW Std Deviation 49.5 H, RDW Coeff of Kassandra 13.5, Plt Count 174, MPV 10.3, Immature Gran % (Auto) 0.400, Neut % (Auto) 67.2, Lymph % (Auto) 20.8, [place] % (Auto) 9.3, Eos % (Auto) 2.0, Baso % (Auto) 0.3, Absolute Neuts (auto) 6.7, Absolute Lymphs (auto) 2.08, Nucleated RBC % 0 12/24/21 04:23: PT 23.3 H, INR 2.1 12/24/21 04:23: Sodium 133 L, Potassium 4.6, Chloride 95 L, Carbon Dioxide 33.0 H, Anion Gap 5, BUN 34 H, Creatinine 6.18 H, Estim Creat Clear Calc 12.30, Est GFR (MDRD) Af Amer 12 L, Est GFR (MDRD) Non-Af 10 L, BUN/Creatinine Ratio 5.5 L, Glucose 122 H, Calcium 8.0 L, Phosphorus 3.5, Magnesium 2.1 12/24/21 06:21: POC Glucose 83 Radiography Diagnostic Testing: Radiology Impression Chest X-Ray 12/23/21 07:55 IMPRESSION: No acute pulmonary process, no interval change Electronically Signed: Giovanni Huston MD at 8:20 EDT , Echocardiogram 12/23/21 10:00 Interpretation Summary The study was technically difficult. Mild concentric left ventricular hypertrophy. The left ventricular ejection fraction is 55 %. Mild posterior hypokinesis The left atrium is severely enlarged. The study was technically difficult. Ordering Physician: Karlos Man Referring Physician: Yola Ng M.D. Performed By: Osmin Potts RCS Physical Exam Narrative GENERAL: cooperative HEENT: Atraumatic; normocephalic EYES; Anicteric, Normal Conjunctiva NECK; supple, normal thyroid, RESPIRATORY: Diminished to auscultation CARDIOVASCULAR: Regular S1 S2, GI: soft, normoactive bowel sounds, : No Renal angle tenderness; EXTREMITIES: No edema, no clubbing, MUSCULOSKELETAL: no muscle wasting NEURO: Awake; no lateralizing signs. SKIN: No Rash PSYCH; Flat affect Assessment & Plan Assessment/Plan (1) Chest pain: PLAN: Plan Patient is a 61-year-old male with multiple comorbidities presenting with chest pain 1. Chest pain secondary to acute NSTEMI ? Patient was admitted to a monitored bed subsequent serial cardiac enzymes came back consistent with acute NSTEMI. Treatment initiated per protocol consultation placed to cardiology with plans for patient to undergo left heart catheterization eventually and if warranted 2. Hyperkalemia ? Secondary to end-stage renal disease patient is on hemodialysis consult has been placed to nephrology for dialysis ? 12/24/2021 patient potassium down to 4.6 3.? End-stage renal disease ?On dialysis on Tuesdays and Saturdays 4. Mild hyponatremia ? Possibly related to patient ESRD we will continue with monitoring with daily BMPs 5. Anemia - Secondary to chronic disorder monitoring H&H and transfuse if patient becomes symptomatic or hemoglobin falls below 7 6.? Diabetes mellitus type II -patient's oral hypoglycemics held. Placed on long acting insulin, Accu-Cheks a.c. and at bedtime and covered with sliding scale insulin 7.? Paroxysmal A. fib ? Rate controlled on systemic anticoagulation with Coumadin INR is therapeutic 8.? History of previous DVT involving lower extremity ?Patient is on warfarin 9.? Class III obesity with BMI of 47.3 ?Weight loss advised 10.? Chronic congestive heart failure with preserved ejection fraction ? Stable, currently not in exacerbation 11. Dyslipidemia -Patient is on statin therapy, continued at home dose 12. Depression ? Patient is on Effexor did continue 13. DVT prophylaxis ?Patient is on warfarin Charges/Coding Visit Charges Inpatient E&M: 66954 Subs Hosp L3 OBSV E&M: 09412 Subsequent observation care L3
[2021-12-24 09:50] LABS: International Normalized Ratio 1.7; Prothrombin Time (Protime)PT. 19.7 SECONDS (11.7-14.9)
[2021-12-24 11:05] LABS: Bedside Glucose 93 mg/dL (74-106)
--- NOTE | 2021-12-24 13:28 | PCM.OP.PRO ---
Procedure Report Date of Procedure: 12/24/21 1. Moderate sedation 2. Selective cholangiography 3. Selective right cholangiography 4. Measurement of LVEDP 5. Selective right common femoral artery angiography and placement of Perclose to close the right common femoral artery arteriotomy site. Preprocedure diagnosis; 61-year-old patient with history of diabetes mellitus, end-stage renal disease, hypertension and paroxysmal A. fib Patient presented with symptoms of chest pain and had subsequent elevation of cardiac biomarkers He lives in [place] and has been on dialysis for the last 18 months He had elevated cardiac marker with a clinical diagnosis of non-ST elevation NH Also noted patient was not anticoagulation with warfarin initial INR was elevated Subsequent telemetry INR was 1.7. Consent; Risk and benefit of procedure explained in detail to the patient elected to proceed informed consent obtained. Access; Under fluoroscopic guidance Access obtained from the right common femoral artery 5 [place] Islander sheath placed right common femoral artery Diagnostic catheter used 1. 5 [place] JL 4 2. 5 [place] JR4 Procedure in detail; Under fluoroscopic guidance to proceed with 5 [place] JL 4 diagnostic catheter advanced [place] and cannulated the left main without difficulty Multiple views the left carotid system were obtained following this catheter change for 5 [place] Island[place] JR4 cannulated RCM and serial views for RCA obtained The same catheter was used to cross aortic valve placed in the mid ventricle and measurement of LVEDP and pullback was performed Findings; 1 LVEDP measured 15 mmHg, within normal There is no systolic gradient across aortic valve. Patient end-stage renal disease Left ventriculogram was not performed This patient had also evaluation by echocardiogram which showed LV function is preserved Finding of coronary angiography; 1. Left main coronary artery large normal angiographically, bifurcating into left anterior descending and left circumflex. 2. Left anterior descending calcified proximally as well as the midportion of the LAD Proximal LAD had an eccentric 30 to 40% stenosis The mid LAD had a 70% stenosis involving a large D1 ostial around 75% 3. Left circumflex artery OM1 had diffuse nonobstructive atherosclerosis Left to right collaterals ,noted 4. RCA dominant, moderate size, with diffuse proximal and mid RCA nonobstructive around 30 to 40% The distal RCA had around 80% stenosis. Conclusion; this patient has severe coronary atherosclerosis involving the mid LAD at the site of a large diagonal as well as the distal RCA Echocardiographic evaluation LV function is preserved Recommendation plan; This is an end-stage renal disease patient, has been on hemodialysis for the last 18 months With history of diabetes, hypertension Paroxysmal atrial fibrillation has been on anticoagulation with warfarin. 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 Quinn Parada MD,[facility]
--- NOTE | 2021-12-24 14:00 | NURSING ---
Pt arrives back to PCU 105 post cath. R femoral pressure dressing in place, site soft, no bleeding observed. Hemostasis time noted to be 1245. First hour of recovery completed in labor trainer. Assuming 30 minute checks at this time and then hourly at 1500.
[2021-12-24] MEDS: Calcium Acetate 667 MG Capsule 1334 MG PO (15:18)
[2021-12-24] MEDS: Dicyclomine 10 MG Capsule 20 MG PO (15:18)
[2021-12-24 15:40] LABS: Bedside Glucose 111 mg/dL (74-106)
--- NOTE | 2021-12-24 16:44 | PN.RENAL_ITS ---
Subjective Subjective denied chest pain, SOB. Results reviewed of heart cath performed today. Appetite good. Dialysis yesterday without incident Objective Data Objective Data Vital Signs: Vital Signs Temp Pulse Resp BP Pulse Ox O2 Del Method O2 Flow Rate 97.2 F L 76 16 103/64 95 Room Air 2 12/24/21 15:00 12/24/21 15:00 12/24/21 15:00 12/24/21 15:00 12/24/21 15:00 12/24/21 15:00 12/23/21 23:30 Oxygen Flow Rate (L/min) 2 Oxygen Delivery Method Room Air Weight: 142.2 kg Body Mass Index (BMI) 47.6 Intake & Output: Intake and Output for Last 24 Hours 12/22/21 12/23/21 12/24/21 23:59 23:59 23:59 Intake Total 502.2 / 725.2 307.0 / 307.0 Output Total 2200 / 2200 Balance -1697.8 / -1474.8 307.0 / 307.0 Lab / Micro Data Result Diagrams: 12/24/21 04:23 12/24/21 04:23 Labs: Laboratory Results - last 24 hr 12/23/21 23:27: POC Glucose 84 12/24/21 04:23: WBC 10.0, RBC 2.68 L, Hgb 9.2 L, Hct 26.7 L, MCV 99.6 H, MCH 34.3 H, MCHC 34.5, RDW Std Deviation 49.5 H, RDW Coeff of Kassandra 13.5, Plt Count 174, MPV 10.3, Immature Gran % (Auto) 0.400, Neut % (Auto) 67.2, Lymph % (Auto) 20.8, [place] % (Auto) 9.3, Eos % (Auto) 2.0, Baso % (Auto) 0.3, Absolute Neuts (auto) 6.7, Absolute Lymphs (auto) 2.08, Nucleated RBC % 0 12/24/21 04:23: PT 23.3 H, INR 2.1 12/24/21 04:23: Sodium 133 L, Potassium 4.6, Chloride 95 L, Carbon Dioxide 33.0 H, Anion Gap 5, BUN 34 H, Creatinine 6.18 H, Estim Creat Clear Calc 12.30, Est GFR (MDRD) Af Amer 12 L, Est GFR (MDRD) Non-Af 10 L, BUN/Creatinine Ratio 5.5 L, Glucose 122 H, Calcium 8.0 L, Phosphorus 3.5, Magnesium 2.1 12/24/21 06:21: POC Glucose 83 12/24/21 09:26: PT 19.7 H, INR 1.7 12/24/21 10:46: POC Glucose 93 12/24/21 15:14: POC Glucose 111 H Physical Exam Const alert and oriented x3 Nutritional Appearance: obese Resp clear to auscultation bilaterally Cardio regular rate GI non-tender and non-distended Auscultation: normoactive bowel sounds Palpation: soft Extremity no clubbing, cyanosis or edema Neuro moves all extremities Psych cooperative Assessment & Plan Assessment/Plan (1) ESRD (end stage renal disease) on dialysis: PLAN: dialysis TTS, next dialysis tomorrow (2) Hypertension: PLAN: stop midodrine (3) Chest pain: PLAN: +troponin, cardiology consulted. s/p cath with CAD, needs intervention (4) Diabetes mellitus type 2 in obese: (5) Atrial fibrillation: PLAN: anticoagulated (6) Hyperkalemia: PLAN: resolved
[2021-12-24] MEDS: busPIRone 5 MG Tablet 10 MG PO (22:09)
[2021-12-24] MEDS: Insulin NPH Human 100 UNITS/ML PEN 18 UNITS SC (22:09)
[2021-12-24] MEDS: Atorvastatin Calcium 80 MG Tablet PO (22:10)
[2021-12-24] MEDS: Gabapentin 600 MG Tablet PO (22:10)
[2021-12-24 22:20] LABS: Bedside Glucose 110 mg/dL (74-106)
[2021-12-25] VITALS (13 sets, daily range): BP systolic 117–149; BP diastolic 46–83; PULSE 79–96; RESP 16–18; TEMP 36.7–37.3; O2SAT 91–98
[2021-12-25] MEDS: Dicyclomine 10 MG Capsule 20 MG PO ×3 (07:20→21:39)
[2021-12-25 07:40] LABS: Bedside Glucose 95 mg/dL (74-106)
[2021-12-25] MEDS: Aspirin E.C. 81 MG Tablet PO (07:56)
[2021-12-25] MEDS: busPIRone 5 MG Tablet 10 MG PO ×2 (07:56→21:39)
[2021-12-25] MEDS: Calcium Acetate 667 MG Capsule 1334 MG PO ×3 (07:56→21:39)
[2021-12-25] MEDS: Ascorbic Acid 500 MG Tablet 1000 MG PO (07:57)
[2021-12-25] MEDS: NIFEdipine 90 MG Tablet PO (07:57)
[2021-12-25] MEDS: Venlafaxine XR 150 MG Capsule PO (07:57)
[2021-12-25] MEDS: SUCROFERRIC OXYHYDROXIDE 500 MG TAB.CHEW PO (07:58)
[2021-12-25] MEDS: Metoprolol Tartrate 25 MG Tablet PO ×2 (07:58→21:39)
[2021-12-25] MEDS: Pyridoxine HCl 50 MG Tablet PO (07:59)
[2021-12-25] MEDS: Insulin NPH Human 100 UNITS/ML PEN SC (07:59)
[2021-12-25] MEDS: Gabapentin 600 MG Tablet PO ×2 (08:04→21:40)
--- NOTE | 2021-12-25 08:17 | NURSING ---
Addendum entered by Arminda Fraire 12/25/21 08:21: Dialysis will run patient here between [id number]. Original Note: Spoke with [facility]. Patient's chair time is 0730 and they are unable to run him this afternoon. Will inform acute dialysis office he will need run here.
[2021-12-25 10:10] LABS: Anion Gap 11 (5-15); BUN 55 mg/dL (7-18); BUN/Creat Ratio 5.9 RATIO (10-20); Chloride 92 mmol/L (98-107); Creatinine, Serum 9.34 mg/dL (0.70-1.30); EST Glomerular Filtration Rate 6 mL/min (>60); Est Glom Filt Rate - Afr Amer 7 mL/min (>60); Estimated Creatinine Clearance 8.14 ml/min; Glucose 117 mg/dL (74-106); Potassium 4.5 mmol/L (3.5-5.1); Sodium Level 131 mmol/L (136-145)
[2021-12-25 10:17] LABS: Absolute Lymphocyte Count 2.53 X10^3/uL (0.83-4.51); Absolute Neutrophil Count 6.8 X10^3/uL (2.0-7.7); Basophil# 0.03 X10^3/uL; Basophil% 0.3 % (0-1); Eosinophil# 0.21 X10^3/uL; Hematocrit 30.9 % (40-54); Hemoglobin 10.6 g/dL (13.0-16.5); Lymphocyte # 2.53 X10^3/ul (0.83-4.51); Lymphocyte % 23.8 % (19-41); Mean Corp Hgb Conc 34.3 g/dL (32-36); Mean Corpuscular Hgb 34.2 pg (27.0-32.0); Mean Corpuscular Volume 99.7 fL (80-94); Mean Platelet Vol. 11.1 fl (6.2-12.0); Monocyte# 1.06 X10^3/uL; NRBC Flagged by Analyzer 0 % (0-5); Neutrophil # 6.77 X10^3/uL (2.7-7.7); Neutrophil % 63.5 % (47-70); Platelet Count 187 K/mm3 (150-450); RBC Distribution Width CV 13.4 % (11.6-14.6); RBC Distribution Width SD 49.1 fl (35.1-43.9); White Blood Count 10.6 K/mm3 (4.4-11.0)
[2021-12-25 10:39] LABS: Phosphorus 5.6 mg/dL (2.5-4.9)
[2021-12-25 11:55] LABS: Bedside Glucose 149 mg/dL (74-106)
--- NOTE | 2021-12-25 12:23 | PN.HOSP_ITS ---
Subjective Subjective Patient seen and examined. He feels well this morning and had no active complaints. Review of systems otherwise negative. He has remained hemodynamically stable. Objective Data Objective Data Vital Signs: Vital Signs Temp Pulse Resp BP Pulse Ox O2 Del Method O2 Flow Rate 98.0 F 88 16 132/70 H 95 Room Air 2 12/25/21 11:29 12/25/21 11:29 12/25/21 11:29 12/25/21 11:29 12/25/21 11:29 12/25/21 11:29 12/23/21 23:30 Oxygen Flow Rate (L/min) 2 Oxygen Delivery Method Room Air Weight: 313 lb 7.957 oz Body Mass Index (BMI) 47.6 Intake & Output: Intake and Output for Last 24 Hours 12/23/21 12/24/21 12/25/21 23:59 23:59 23:59 Intake Total 502.2 / 725.2 307.0 / 307.0 220 / 220 Output Total 2200 / 2200 0 / 0 Balance -1697.8 / -1474.8 307.0 / 307.0 220 / 220 Lab / Micro Data Result Diagrams: 12/25/21 08:56 12/25/21 08:56 Labs: Laboratory Results - last 24 hr 12/24/21 15:14: POC Glucose 111 H 12/24/21 21:56: POC Glucose 110 H 12/25/21 07:20: POC Glucose 95 12/25/21 08:56: WBC 10.6, RBC 3.10 L, Hgb 10.6 L, Hct 30.9 L, MCV 99.7 H, MCH 34.2 H, MCHC 34.3, RDW Std Deviation 49.1 H, RDW Coeff of Kassandra 13.4, Plt Count 187, MPV 11.1, Immature Gran % (Auto) 0.400, Neut % (Auto) 63.5, Lymph % (Auto) 23.8, [place] % (Auto) 10.0, Eos % (Auto) 2.0, Baso % (Auto) 0.3, Absolute Neuts (auto) 6.8, Absolute Lymphs (auto) 2.53, Nucleated RBC % 0 12/25/21 08:56: Sodium 131 L, Potassium 4.5, Chloride 92 L, Carbon Dioxide 28.0, Anion Gap 11, BUN 55 H, Creatinine 9.34 H*, Estim Creat Clear Calc 8.14, Est GFR (MDRD) Af Amer 7 L, Est GFR (MDRD) Non-Af 6 L, BUN/Creatinine Ratio 5.9 L, Glucose 117 H, Calcium 9.0 12/25/21 08:56: Phosphorus 5.6 H 12/25/21 11:24: POC Glucose 149 H Physical Exam Const alert, oriented x3 and no apparent distress HEENT head/scalp atraumatic, moist oral mucous membranes and oropharynx normal Head and Scalp: normocephalic Mouth: oral and palatal mucosa normal Eyes PERRL, EOMs intact bilaterally and conjunctivae normal Neck no lymphadenopathy and supple Resp normal respiratory effort, no retractions, no use of accessory muscles and clear to auscultation bilaterally Cardio regular rate, regular rhythm, S1 normal heart sound, S2 normal heart sound and no murmurs GI normal to inspection, nondistended, normoactive bowel sounds, soft to palpation, non-tender and non-distended Extremity normal to inspection, full ROM and no clubbing, cyanosis or edema Neuro oriented x3, CN's II-XII intact bilaterally, moves all extremities and no focal motor deficits Sensorium / Orientation: awake and alert Motor Exam: strength 5/5 throughout Psych affect normal Assessment & Plan Assessment/Plan (1) NSTEMI (non-ST elevated myocardial infarction): PLAN: Plan #Nonstemi * cardiac enzymes were elevated, so cardiology consulted * had left heart cath which showed 30 to 40% stenosis in proximal LAD with mid LAD showing 70% stenosis involving a large D1 ostial around 75% and around 80% stenosis of distal RCA. * on aspirin, plavix * 2D echo showe mild concentric LVH with EF of 55% and mild posterior hypokinesis, as well as severely enlarged left atrium * Cardiology to decide between CABG versus PCI of distal RCA. Await final cardiology recommendation. * on metoprolol and high intensity statin * #ESRD: On hemodialysis on Tuesdays and Saturdays. Nephrology on board. #Hyponatremia: Stable #Type 2 diabetes mellitus. On Lantus 18 units nightly. Insulin sliding scale. Accu-Cheks ACH S. All meds on hold. #Paroxysmal A. fib: Rate controlled. on metoprolol. On Coumadin and INR is therapeutic #Dyslipidemia: On statin #Hypertension: on metoprolol and nifedipine #Depression: On Effexor and bupropion Heart failure with preserved ejection fraction: Not in exacerbation. Depression: On Effexor DVT prophylaxis: On Coumadin. INR is therapeutic. Charges/Coding Visit Charges Inpatient E&M: 46137 Subs Hosp L2
--- NOTE | 2021-12-25 13:56 | PN.CARD_ITS ---
Subjective Subjective And evaluated today at bedside along with the nursing staff Sitting out in a chair Does not have any active chest pain., Chest pain resolved since admission Objective Data Vital Signs: Vital Signs Temp Pulse Resp BP Pulse Ox O2 Del Method O2 Flow Rate 98.0 F 88 16 132/70 H 95 Room Air 2 12/25/21 11:29 12/25/21 11:29 12/25/21 11:29 12/25/21 11:29 12/25/21 11:29 12/25/21 11:29 12/23/21 23:30 Oxygen Flow Rate (L/min) 2 Oxygen Delivery Method Room Air Weight: 313 lb 7.957 oz Body Mass Index (BMI) 47.6 Intake & Output: Intake and Output for Last 24 Hours 12/23/21 12/24/21 12/25/21 23:59 23:59 23:59 Intake Total 502.2 / 725.2 307.0 / 307.0 220 / 220 Output Total 2200 / 2200 0 / 0 Balance -1697.8 / -1474.8 307.0 / 307.0 220 / 220 Lab / Micro Data Result Diagrams: 12/25/21 08:56 12/25/21 08:56 Labs: Laboratory Results - last 24 hr 12/24/21 15:14: POC Glucose 111 H 12/24/21 21:56: POC Glucose 110 H 12/25/21 07:20: POC Glucose 95 12/25/21 08:56: WBC 10.6, RBC 3.10 L, Hgb 10.6 L, Hct 30.9 L, MCV 99.7 H, MCH 34.2 H, MCHC 34.3, RDW Std Deviation 49.1 H, RDW Coeff of Kassandra 13.4, Plt Count 187, MPV 11.1, Immature Gran % (Auto) 0.400, Neut % (Auto) 63.5, Lymph % (Auto) 23.8, [place] % (Auto) 10.0, Eos % (Auto) 2.0, Baso % (Auto) 0.3, Absolute Neuts (auto) 6.8, Absolute Lymphs (auto) 2.53, Nucleated RBC % 0 12/25/21 08:56: Sodium 131 L, Potassium 4.5, Chloride 92 L, Carbon Dioxide 28.0, Anion Gap 11, BUN 55 H, Creatinine 9.34 H*, Estim Creat Clear Calc 8.14, Est GFR (MDRD) Af Amer 7 L, Est GFR (MDRD) Non-Af 6 L, BUN/Creatinine Ratio 5.9 L, Glucose 117 H, Calcium 9.0 12/25/21 08:56: Phosphorus 5.6 H 12/25/21 11:24: POC Glucose 149 H Cardiology Labs/Tests 12/25/21 08:56: WBC 10.6, RBC 3.10 L, Hgb 10.6 L, Hct 30.9 L, MCV 99.7 H, MCH 34.2 H, MCHC 34.3, Plt Count 187, MPV 11.1, Immature Gran % (Auto) 0.400, Neut % (Auto) 63.5, Lymph % (Auto) 23.8, [place] % (Auto) 10.0, Eos % (Auto) 2.0, Baso % (Auto) 0.3, Absolute Neuts (auto) 6.8, Nucleated RBC % 0 12/25/21 08:56: Sodium 131 L, Potassium 4.5, Chloride 92 L, Carbon Dioxide 28.0, Anion Gap 11, BUN 55 H, Creatinine 9.34 H*, Est GFR (MDRD) Af Amer 7 L, Est GFR (MDRD) Non-Af 6 L, BUN/Creatinine Ratio 5.9 L, Glucose 117 H, Calcium 9.0 12/25/21 08:56: Phosphorus 5.6 H Rhythm: EKG: ECHO: Stress Test: Cardiac Cath: PCI: CT Surgery: Holter monitor: EPS: PPM: CXR: Chest CT Scan: Physical Exam Narrative Examination S1-S2 is irregular Chest exam is clear to auscultation Right groin no evidence of hematoma Pedal pulses palpable Assessment & Plan Assessment/Plan (1) ESRD (end stage renal disease) on dialysis: (2) Diabetes mellitus type 2 in obese: (3) Atrial fibrillation: (4) Hypertension: (5) NSTEMI (non-ST elevated myocardial infarction): PLAN: 69-year-old patient multiple medical comorbidities, diabetes mellitus, end-stage renal disease currently on hemodialysis, hypertension, hyperlipidemia, morbid obesity Presented with symptoms of chest pain and has elevated cardiac biomarkers with a clinical diagnosis of CAD/non-STEMI Underwent cardiac catheterization which showed severe distal RCA diffuse atherosclerosis with 80% stenosis Also had a bifurcation lesion involving the LAD and a large D1 which is calcified LV function preserved, patient has diabetes mellitus, hypertension end-stage renal disease currently on hemodialysis Cardiac care plan and recommendations; 1. I discussed in detail the cardiac care plan/option of bypass surgery versus PCI of the distal RCA/bifurcation LAD/D1 Patient elected to proceed with the with the PCI of the distal RCA and elective PCI of bifurcation LAD D1 We will proceed with PCI of the distal RCA on Monday. Patient is off warfarin and currently on heparin Patient currently on heparin, aspirin, beta-ashlee metoprolol as well as atorvastatin Is stable hemodynamically he does not have any active chest pain Also patient will need elective PCI of a bifurcation lesion LAD and diagonal which can be set up as an outpatient.
[2021-12-25 14:41] LABS: Partial Thromboplast Time 28.5 Seconds (24.1-36.2)
[2021-12-25] MEDS: HEPARIN/D5w 25,000 UNITS 25,000 UNITS/250 ML IV.SOLN. 18 UNITS CONT INF (15:37)
[2021-12-25 16:46] LABS: Bedside Glucose 166 mg/dL (74-106)
--- NOTE | 2021-12-25 18:56 | NURSING ---
per cell room supervisor, wait to give 1600/1700 meds until after dialysis complete.
--- NOTE | 2021-12-25 19:41 | DIALYSIS ---
HD complete via AVF, some difficulty accessing, did not use button holes. UF 3500 ml. patient tolerated well. See dialysis record
[2021-12-25] MEDS: Atorvastatin Calcium 80 MG Tablet PO (21:39)
[2021-12-25] MEDS: Insulin NPH Human 100 UNITS/ML PEN 18 UNITS SC (21:39)
[2021-12-25] MEDS: Insulin Lispro 100 UNIT/ML INSULN.PEN SC (21:40)
[2021-12-25 21:52] LABS: Partial Thromboplast Time 77.2 Seconds (24.1-36.2)
[2021-12-25 23:36] LABS: Bedside Glucose 251 mg/dL (74-106)
[2021-12-26] VITALS (11 sets, daily range): BP systolic 111–134; BP diastolic 56–68; PULSE 73–88; RESP 18; TEMP 36.6–37.3; O2SAT 96–99
[2021-12-26 03:23] LABS: Absolute Lymphocyte Count 3.09 X10^3/uL (0.83-4.51); Absolute Neutrophil Count 4.8 X10^3/uL (2.0-7.7); Basophil# 0.05 X10^3/uL; Basophil% 0.5 % (0-1); Eosinophil# 0.29 X10^3/uL; Hematocrit 31.3 % (40-54); Hemoglobin 9.9 g/dL (13.0-16.5); Lymphocyte # 3.09 X10^3/ul (0.83-4.51); Lymphocyte % 32.1 % (19-41); Mean Corp Hgb Conc 31.6 g/dL (32-36); Mean Corpuscular Hgb 32.9 pg (27.0-32.0); Monocyte# 1.39 X10^3/uL; Monocyte% 14.4 % (0-10); NRBC Flagged by Analyzer 0 % (0-5); Neutrophil # 4.78 X10^3/uL (2.7-7.7); Neutrophil % 49.6 % (47-70); Platelet Count 186 K/mm3 (150-450); RBC Distribution Width CV 13.2 % (11.6-14.6); RBC Distribution Width SD 50.4 fl (35.1-43.9); Red Blood Count 3.01 M/mm3 (4.6-6.2); White Blood Count 9.6 K/mm3 (4.4-11.0)
[2021-12-26 03:40] LABS: Anion Gap 9 (5-15); BUN 39 mg/dL (7-18); BUN/Creat Ratio 5.4 RATIO (10-20); Calcium,Total 8.6 mg/dL (8.5-10.1); Chloride 92 mmol/L (98-107); Creatinine, Serum 7.22 mg/dL (0.70-1.30); EST Glomerular Filtration Rate 8 mL/min (>60); Est Glom Filt Rate - Afr Amer 10 mL/min (>60); Estimated Creatinine Clearance 10.53 ml/min; Glucose 148 mg/dL (74-106); Potassium 4.3 mmol/L (3.5-5.1); Sodium Level 132 mmol/L (136-145)
[2021-12-26] MEDS: HEPARIN/D5w 25,000 UNITS 25,000 UNITS/250 ML IV.SOLN. 18 UNITS CONT INF (03:48)
[2021-12-26 08:11] LABS: Bedside Glucose 146 mg/dL (74-106)
[2021-12-26] MEDS: Metoprolol Tartrate 25 MG Tablet PO ×2 (08:32→22:15)
[2021-12-26] MEDS: Aspirin E.C. 81 MG Tablet PO (08:32)
[2021-12-26] MEDS: Dicyclomine 10 MG Capsule 20 MG PO ×3 (08:32→16:53)
[2021-12-26] MEDS: Venlafaxine XR 150 MG Capsule PO (08:33)
[2021-12-26] MEDS: Calcium Acetate 667 MG Capsule 1334 MG PO ×3 (08:33→17:14)
[2021-12-26] MEDS: busPIRone 5 MG Tablet 10 MG PO ×2 (08:33→22:13)
[2021-12-26] MEDS: Pyridoxine HCl 50 MG Tablet PO (08:34)
[2021-12-26] MEDS: NIFEdipine 90 MG Tablet PO (08:34)
[2021-12-26] MEDS: Ascorbic Acid 500 MG Tablet 1000 MG PO (08:34)
[2021-12-26] MEDS: Insulin NPH Human 100 UNITS/ML PEN SC (08:37)
[2021-12-26] MEDS: Gabapentin 600 MG Tablet PO ×2 (08:41→22:15)
[2021-12-26 09:56] LABS: Partial Thromboplast Time 110.1 Seconds (24.1-36.2)
[2021-12-26] MEDS: Insulin Lispro 100 UNIT/ML INSULN.PEN SC ×2 (11:44→22:14)
--- NOTE | 2021-12-26 12:12 | PN.HOSP_ITS ---
Subjective Subjective Patient seen and examined. He had no complaints and had an uneventful night. Review of systems otherwise negative. He has opted for a staged PCI and is follow-up cath with PCI tomorrow. Objective Data Objective Data Vital Signs: Vital Signs Temp Pulse Resp BP Pulse Ox O2 Del Method O2 Flow Rate 97.8 F 76 18 134/68 H 99 Room Air 2 12/26/21 01:27 EST 12/26/21 08:32 12/26/21 01:27 EST 12/26/21 08:32 12/26/21 01:27 EST 12/26/21 01:27 EST 12/23/21 23:30 Oxygen Flow Rate (L/min) 2 Oxygen Delivery Method Room Air Weight: 313 lb 7.957 oz Body Mass Index (BMI) 47.6 Intake & Output: Intake and Output for Last 24 Hours 12/24/21 12/25/21 12/26/21 23:59 23:59 22:59 Intake Total 307.0 / 307.0 334.9 / 334.9 121.5 / 121.5 Output Total 0 / 0 Balance 307.0 / 307.0 334.9 / 334.9 121.5 / 121.5 Lab / Micro Data Result Diagrams: 12/26/21 02:55 12/26/21 02:55 Labs: Laboratory Results - last 24 hr 12/25/21 14:10: APTT 28.5 12/25/21 16:27: POC Glucose 166 H 12/25/21 21:25: APTT 77.2 H 12/25/21 21:37: POC Glucose 251 H 12/26/21 02:55: WBC 9.6, RBC 3.01 L, Hgb 9.9 L, Hct 31.3 L, MCV 104.0 H, MCH 32.9 H, MCHC 31.6 L D, RDW Std Deviation 50.4 H, RDW Coeff of Kassandra 13.2, Plt Count 186, MPV 11.0, Immature Gran % (Auto) 0.400, Neut % (Auto) 49.6, Lymph % (Auto) 32.1, [place] % (Auto) 14.4 H, Eos % (Auto) 3.0, Baso % (Auto) 0.5, Absolute Neuts (auto) 4.8, Absolute Lymphs (auto) 3.09, Nucleated RBC % 0 12/26/21 02:55: Sodium 132 L, Potassium 4.3, Chloride 92 L, Carbon Dioxide 31.0, Anion Gap 9, BUN 39 H, Creatinine 7.22 H, Estim Creat Clear Calc 10.53, Est GFR (MDRD) Af Amer 10 L, Est GFR (MDRD) Non-Af 8 L, BUN/Creatinine Ratio 5.4 L, Glucose 148 H, Calcium 8.6 12/26/21 02:55: APTT 76.0 H 12/26/21 07:00: POC Glucose 146 H 12/26/21 09:00: APTT 110.1 H* Physical Exam Const alert, oriented x3 and no apparent distress HEENT head/scalp atraumatic, moist oral mucous membranes and oropharynx normal Eyes PERRL, EOMs intact bilaterally and conjunctivae normal Neck no lymphadenopathy and supple Resp normal respiratory effort, no retractions, no use of accessory muscles and clear to auscultation bilaterally Cardio regular rate, regular rhythm, S1 normal heart sound, S2 normal heart sound and no murmurs GI normal to inspection, nondistended, normoactive bowel sounds, soft to palpation, non-tender and non-distended Extremity normal to inspection, full ROM and no clubbing, cyanosis or edema Neuro oriented x3, CN's II-XII intact bilaterally, moves all extremities and no focal motor deficits Sensorium / Orientation: awake and alert Motor Exam: strength 5/5 throughout Psych affect normal Assessment & Plan Assessment/Plan (1) NSTEMI (non-ST elevated myocardial infarction): PLAN: Plan #Nonstemi * cardiac enzymes were elevated, so cardiology consulted * had left heart cath which showed 30 to 40% stenosis in proximal LAD with mid LAD showing 70% stenosis involving a large D1 ostial around 75% and around 80% stenosis of distal RCA. * on aspirin, plavix * 2D echo showed mild concentric LVH with EF of 55% and mild posterior hypokinesis, as well as severely enlarged left atrium * Patient opts for staged PCI and this will be done tomorrow. * on metoprolol and high intensity statin * On heparin drip * #ESRD: On hemodialysis on Tuesdays and Saturdays. Nephrology on board. #Hyponatremia: Stable #Type 2 diabetes mellitus. On Lantus 18 units nightly. Insulin sliding scale. Accu-Cheks ACH S. All meds on hold. #Paroxysmal A. fib: Rate controlled. on metoprolol. On Coumadin and INR is therapeutic #Dyslipidemia: On statin #Hypertension: on metoprolol and nifedipine #Depression: On Effexor and bupropion # CHronic Heart failure with preserved ejection fraction: Not in exacerbation. Depression: On Effexor DVT prophylaxis: On heparin drip. Coumadin on hold. Charges/Coding Visit Charges Inpatient E&M: 64069 Subs Hosp L2
[2021-12-26 13:11] LABS: Bedside Glucose 198 mg/dL (74-106)
--- NOTE | 2021-12-26 14:51 | PN.CARD_ITS ---
Subjective Subjective And evaluated today at bedside No symptoms reported comfortable sitting out in a chair Objective Data Vital Signs: Vital Signs Temp Pulse Resp BP Pulse Ox O2 Del Method O2 Flow Rate 98.1 F 75 18 134/68 H 96 Room Air 2 12/26/21 08:30 12/26/21 12:00 12/26/21 08:30 12/26/21 08:32 12/26/21 08:30 12/26/21 08:30 12/23/21 23:30 Oxygen Flow Rate (L/min) 2 Oxygen Delivery Method Room Air Weight: 313 lb 7.957 oz Body Mass Index (BMI) 47.6 Intake & Output: Intake and Output for Last 24 Hours 12/24/21 12/25/21 12/26/21 23:59 23:59 22:59 Intake Total 307.0 / 307.0 334.9 / 334.9 731.1 / 731.1 Output Total 0 / 0 Balance 307.0 / 307.0 334.9 / 334.9 731.1 / 731.1 Lab / Micro Data Result Diagrams: 12/26/21 02:55 12/26/21 02:55 Labs: Laboratory Results - last 24 hr 12/25/21 16:27: POC Glucose 166 H 12/25/21 21:25: APTT 77.2 H 12/25/21 21:37: POC Glucose 251 H 12/26/21 02:55: WBC 9.6, RBC 3.01 L, Hgb 9.9 L, Hct 31.3 L, MCV 104.0 H, MCH 32.9 H, MCHC 31.6 L D, RDW Std Deviation 50.4 H, RDW Coeff of Kassandra 13.2, Plt Co unt 186, MPV 11.0, Immature Gran % (Auto) 0.400, Neut % (Auto) 49.6, Lymph % (Auto) 32.1, [place] % (Auto) 14.4 H, Eos % (Auto) 3.0, Baso % (Auto) 0.5, Absolute Neuts (auto) 4.8, Absolute Lymphs (auto) 3.09, Nucleated RBC % 0 12/26/21 02:55: Sodium 132 L, Potassium 4.3, Chloride 92 L, Carbon Dioxide 31.0, Anion Gap 9, BUN 39 H, Creatinine 7.22 H, Estim Creat Clear Calc 10.53, Est GFR (MDRD) Af Amer 10 L, Est GFR (MDRD) Non-Af 8 L, BUN/Creatinine Ratio 5.4 L, Glucose 148 H, Calcium 8.6 12/26/21 02:55: APTT 76.0 H 12/26/21 07:00: POC Glucose 146 H 12/26/21 09:00: APTT 110.1 H* 12/26/21 11:43: POC Glucose 198 H Cardiology Labs/Tests 12/25/21 21:25: APTT 77.2 H 12/26/21 02:55: WBC 9.6, RBC 3.01 L, Hgb 9.9 L, Hct 31.3 L, MCV 104.0 H, MCH 32.9 H, MCHC 31.6 L D, Plt Count 186, MPV 11.0, Immature Gran % (Auto) 0.400, Neut % (Auto) 49.6, Lymph % (Auto) 32.1, [place] % (Auto) 14.4 H, Eos % (Auto) 3.0, Baso % (Auto) 0.5, Absolute Neuts (auto) 4.8, Nucleated RBC % 0 12/26/21 02:55: Sodium 132 L, Potassium 4.3, Chloride 92 L, Carbon Dioxide 31.0, Anion Gap 9, BUN 39 H, Creatinine 7.22 H, Est GFR (MDRD) Af Amer 10 L, Est GFR (MDRD) Non-Af 8 L, BUN/Creatinine Ratio 5.4 L, Glucose 148 H, Calcium 8.6 12/26/21 02:55: APTT 76.0 H 12/26/21 09:00: APTT 110.1 H* Rhythm: EKG: ECHO: Stress Test: Cardiac Cath: PCI: CT Surgery: Holter monitor: EPS: PPM: CXR: Chest CT Scan: Physical Exam Narrative Review of imaging nurse showed underlying normal sinus Cardiovascular exam S1-S2 is regular Chest exam is clear to auscultation bilateral. Right side groin soft no hematoma Examination lower extremity pedal pulses palpable. Assessment & Plan Assessment/Plan (1) Diabetes mellitus type 2 in obese: (2) ESRD (end stage renal disease) on dialysis: (3) Atrial fibrillation: (4) Hypertension: (5) NSTEMI (non-ST elevated myocardial infarction): PLAN: Plan 61-year-old patient with non-ST elevation SD Severe coronary artery atherosclerosis involving the distal RCA large dominant vessel In addition to calcification of the proximal LAD with bifurcational lesion of mid LAD and a large ostial diagonal. Patient had history of diabetes mellitus, hypertension, end-stage renal disease currently on hemodialysis In addition he is morbidly obese paroxysmal atrial fibrillation and patient was on warfarin which is on hold and currently on aspirin as well as heparin Cardiac care plan recommendations; 1. I did discuss in detail options of management with this patient regarding PCI of the distal RCA and to discuss elective PCI of bifurcation lesion mid LAD and ostial diagonal versus bypass surgery He elected to proceed for the PCI. Due to end-stage renal disease and AV fistula approach will be from the right common femoral artery. 2. Also I reviewed all his current medication will continue current treatment. 3. 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
[2021-12-26 17:15] LABS: Bedside Glucose 147 mg/dL (74-106)
[2021-12-26 20:45] LABS: Partial Thromboplast Time 43.6 Seconds (24.1-36.2)
[2021-12-26] MEDS: Heparin Injection (Vial) 5,000 UNIT/ML VIAL IV (21:16)
[2021-12-26] MEDS: Insulin NPH Human 100 UNITS/ML PEN 18 UNITS SC (22:14)
[2021-12-26] MEDS: Atorvastatin Calcium 80 MG Tablet PO (22:15)
[2021-12-26] MEDS: HEPARIN/D5w 25,000 UNITS 25,000 UNITS/250 ML IV.SOLN. 16 UNITS CONT INF (23:31)
[2021-12-26 23:51] LABS: Bedside Glucose 179 mg/dL (74-106)
[2021-12-27] VITALS (7 sets, daily range): BP systolic 115–129; BP diastolic 69–75; PULSE 61–74; RESP 16–18; TEMP 36.3–36.6; O2SAT 95–98
[2021-12-27 02:44] LABS: Absolute Lymphocyte Count 3.91 X10^3/uL (0.83-4.51); Absolute Neutrophil Count 5.2 X10^3/uL (2.0-7.7); Basophil# 0.05 X10^3/uL; Basophil% 0.5 % (0-1); Eosinophil# 0.41 X10^3/uL; Eosinophils% 3.8 % (0-5); Hematocrit 28.6 % (40-54); Hemoglobin 10.3 g/dL (13.0-16.5); Lymphocyte # 3.91 X10^3/ul (0.83-4.51); Lymphocyte % 35.9 % (19-41); Mean Corpuscular Volume 97.3 fL (80-94); Mean Platelet Vol. 11.1 fl (6.2-12.0); Monocyte# 1.26 X10^3/uL; Monocyte% 11.6 % (0-10); NRBC Flagged by Analyzer 0 % (0-5); Neutrophil # 5.23 X10^3/uL (2.7-7.7); Neutrophil % 47.9 % (47-70); Platelet Count 190 K/mm3 (150-450); RBC Distribution Width CV 13.2 % (11.6-14.6); RBC Distribution Width SD 46.1 fl (35.1-43.9); Red Blood Count 2.94 M/mm3 (4.6-6.2); White Blood Count 10.9 K/mm3 (4.4-11.0)
[2021-12-27 02:49] LABS: Partial Thromboplast Time 59.6 Seconds (24.1-36.2)
[2021-12-27 02:56] LABS: Anion Gap 12 (5-15); BUN 63 mg/dL (7-18); BUN/Creat Ratio 6.3 RATIO (10-20); Calcium,Total 9.2 mg/dL (8.5-10.1); Chloride 92 mmol/L (98-107); Creatinine, Serum 9.99 mg/dL (0.70-1.30); EST Glomerular Filtration Rate 6 mL/min (>60); Est Glom Filt Rate - Afr Amer 7 mL/min (>60); Estimated Creatinine Clearance 7.61 ml/min; Glucose 154 mg/dL (74-106); Potassium 4.5 mmol/L (3.5-5.1); Sodium Level 133 mmol/L (136-145)
--- NOTE | 2021-12-27 05:55 | EKG12_ITS ---
Test Reason : heart cath Blood Pressure : / mmHG Vent. Rate : 066 BPM Atrial Rate : 000 BPM P-R Int : 000 ms QRS Dur : 084 ms QT Int : 408 ms P-R-T Axes : 000 040 040 degrees QTc Int : 427 ms Atrial fibrillation Abnormal ECG When compared with ECG of 24-DEC-2021 05:41, Atrial fibrillation has replaced Sinus rhythm Confirmed by DIANA HARVEY, LAURA ([id number]), editor book KARRI AMIN ([id number]) on 12/28/2021 1:16:24 PM Referred By: Confirmed By:LAURA ORTIZ MD
[2021-12-27] MEDS: NIFEdipine 90 MG Tablet PO (06:12)
[2021-12-27] MEDS: Metoprolol Tartrate 25 MG Tablet PO (06:12)
[2021-12-27] MEDS: 0.9% Saline Lock 10 ML Syringe IV (06:13)
[2021-12-27] MEDS: Aspirin E.C. 81 MG Tablet PO (06:13)
[2021-12-27 07:10] LABS: Bedside Glucose 151 mg/dL (74-106)
--- NOTE | 2021-12-27 07:26 | NURSING ---
Documentation reviewed with Carolina LUNDY preceptee
[2021-12-27 08:18] LABS: Partial Thromboplast Time 31.6 Seconds (24.1-36.2)
--- NOTE | 2021-12-27 10:44 | PCM.PN.REN ---
Subjective Subjective denied chest pain, short of breath Objective Data Objective Data Vital Signs: Vital Signs Temp Pulse Resp BP Pulse Ox O2 Del Method O2 Flow Rate 97.6 F L 73 16 129/75 H 98 Room Air 2 12/27/21 07:53 12/27/21 07:53 12/27/21 07:53 12/27/21 07:53 12/27/21 07:53 12/27/21 08:15 12/23/21 23:30 Oxygen Flow Rate (L/min) 2 Oxygen Delivery Method Room Air Weight: 142.2 kg Body Mass Index (BMI) 47.6 Intake & Output: Intake and Output for Last 24 Hours 12/26/21 12/26/21 12/27/21 00:59 23:59 23:59 Intake Total 105.60 / 105.60 Balance 105.60 / 105.60 Lab / Micro Data Result Diagrams: 12/27/21 02:20 12/27/21 02:20 Labs: Laboratory Results - last 24 hr 12/26/21 11:43: POC Glucose 198 H 12/26/21 16:51: POC Glucose 147 H 12/26/21 20:05: APTT 43.6 H 12/26/21 22:12: POC Glucose 179 H 12/27/21 02:20: WBC 10.9, RBC 2.94 L, Hgb 10.3 L, Hct 28.6 L, MCV 97.3 H D, MCH 35.0 H, MCHC 36.0 D, RDW Std Deviation 46.1 H, RDW Coeff of Kassandra 13.2, Plt Count 190, MPV 11.1, Immature Gran % (Auto) 0.300, Neut % (Auto) 47.9, Lymph % (Auto) 35.9, Garrett % (Auto) 11.6 H, Eos % (Auto) 3.8, Baso % (Auto) 0.5, Absolute Neuts (auto) 5.2, Absolute Lymphs (auto) 3.91, Nucleated RBC % 0 12/27/21 02:20: Sodium 133 L, Potassium 4.5, Chloride 92 L, Carbon Dioxide 29.0, Anion Gap 12, BUN 63 H, Creatinine 9.99 H*, Estim Creat Clear Calc 7.61, Est GFR (MDRD) Af Amer 7 L, Est GFR (MDRD) Non-Af 6 L, BUN/Creatinine Ratio 6.3 L, Glucose 154 H, Calcium 9.2 12/27/21 02:20: APTT 59.6 H 12/27/21 06:01: POC Glucose 151 H 12/27/21 08:00: APTT 31.6 Physical Exam Const alert and oriented x3 General Appearance: well developed Resp clear to auscultation bilaterally Cardio regular rate GI non-tender Auscultation: normoactive bowel sounds Palpation: soft Extremity no clubbing, cyanosis or edema General Extremity: AV fistula Assessment & Plan Assessment/Plan (1) ESRD (end stage renal disease) on dialysis: PLAN: dialysis TTS, next dialysis tomorrow (2) Hypertension: PLAN: stopped midodrine (3) Chest pain: PLAN: NSTEMI. +troponin, cardiology consulted. s/p cath with CAD, needs intervention (4) Diabetes mellitus type 2 in obese: (5) Atrial fibrillation: PLAN: anticoagulated (6) Hyperkalemia: PLAN: resolved
[2021-12-27] MEDS: Calcium Acetate 667 MG Capsule 1334 MG PO ×2 (10:56→13:45)
[2021-12-27] MEDS: Venlafaxine XR 150 MG Capsule PO (10:56)
[2021-12-27] MEDS: busPIRone 5 MG Tablet 10 MG PO (10:56)
[2021-12-27] MEDS: Pyridoxine HCl 50 MG Tablet PO (10:57)
[2021-12-27] MEDS: Ascorbic Acid 500 MG Tablet 1000 MG PO (10:57)
[2021-12-27] MEDS: Gabapentin 600 MG Tablet PO (11:00)
[2021-12-27 11:56] LABS: Bedside Glucose 167 mg/dL (74-106)
--- NOTE | 2021-12-27 13:23 | DCINST_ITS ---
Discharge Instructions Diet Discharge Diet: Low fat / Low cholesterol Activity Discharge Activity: Return to Normal Activity Weight Bearing Status: Weight bearing as tolerated Dressing / Incision Call your doctor if you observe: Fever of 101 or Higher, Shortness of breath, Swelling in the ankles and Chest pain Follow Up Care Test Results: Test results from this visit will be discussed in further detail at your follow- up appointment, if applicable. Discharge Plan Admission Admit Date/Time: 12/23/21 12:58 Primary Reason for Your Visit: nonstemi Attending Provider: Clair Ramirez Primary Care Provider: Yola Ng Consulting Providers: Lillian Acharya ; Roly Charles ; Karlos Man Instructions Patient Instructions: First Aid: Heart Attacks, Heart Attack Meds Additional Instructions / Restrictions: follow up with your primary chemistry instructor at [facility] within one week to be scheduled for rotablation, as discussed with you by cardiology. Discharge Orders/Prescriptions Prescriptions: New aspirin 81 mg Tablet,Delayed Release (Dr/Ec) 81 mg PO BREAKFAST Qty: 30 1RF Continued ascorbic acid (vitamin C) [Vitamin C] 1,000 MG tablet 1,000 mg PO DAILY Label Comments: vitamin venlafaxine [Effexor XR] 150 MG capsule 150 mg PO DAILY Label Comments: depression dicyclomine 20 MG tablet 20 mg PO TID Label Comments: fatoumata buspirone 10 MG tablet 10 mg PO BID Label Comments: anxiety Humulin N NPH Insulin KwikPen 100 UNIT/ML insulin pen 18 units SQ QHS simethicone [Gas Relief (simethicone)] 80 MG tablet,chewable 80 mg PO TID PRN PRN (Reason: Indigestion) calcium acetate(phosphat bind) 667 mg capsule 1,334 - 2,001 mg PO TIDCM Label Comments: TAKE 1 CAPSULE DAILY warfarin 6 mg Tablet 12.5 mg PO MOTUWETHFRSA warfarin 5 MG tablet 15 mg PO SHARP atorvastatin 80 mg tablet 80 mg PO DAILY gabapentin 600 mg tablet 600 mg PO BID nifedipine 90 mg tablet extended release 24hr 90 mg PO DAILY pyridoxine (vitamin B6) [Vitamin B-6] 50 mg Tablet 50 mg PO DAILY midodrine 10 mg tablet 10 mg PO TID Label Comments: TAKE 1 TABLET THREE TIMES DAILY Novolin N Flexpen 100 unit/mL (3 mL) insulin pen 5 unit SUBCUT DAILY Label Comments: INJECT 5UNITS IN THE MORNING AND 18 UNITS SUBCUTANEOUSLY AT BEDTIME Velphoro 500 mg tablet,chewable 500 mg PO TUTHSA cinnamon bark 500 mg capsule 500 mg PO DAILY Label Comments: 1 capsule by mouth as directed Referrals / Follow Up: Yola Ng MD [Primary Care Provider] - Within 1 Week Disposition Disposition (needs filled in before D/C Order can be placed): Home, Self Care
--- NOTE | 2021-12-27 13:23 | CASEMGMT ---
Pt has been independent in room and states no concerns with going home at time of discharge. Pt has been on room air. Ben LUNDY CM
--- NOTE | 2021-12-27 13:32 | PCM.DC.SUM ---
Providers Date of Admission: 12/23/21 Date of Discharge: 12/27/21 Primary Care Physician: Dr. Yola Ng MD Consultations 12/23/21 10:31 Consult: Nephrology Routine Consulting Provider: Lillian Acharya Reason for Consult: ESRD EMERGENT Consult: No Notified: Yes Date Notified: 12/23/21 Time Notified: 10:31 Method of Notification: Text 12/23/21 11:36 Consult: Cardiology Routine Consulting Provider: Roly Charles Reason for Consult: Chest pain with elevated trop EMERGENT Consult: No Notified: Yes Date Notified: 12/23/21 Time Notified: 11:36 Method of Notification: Text Reason For Visit: CHEST PAIN Diagnosis Discharge Diagnosis (1) ESRD (end stage renal disease) on dialysis: Status: Acute Code(s): N18.6 - End stage renal disease; Z99.2 - Dependence on renal dialysis (2) Hypertension: Status: Chronic Code(s): I10 - Essential (primary) hypertension (3) Chest pain: Status: Acute Code(s): R07.9 - Chest pain, unspecified (4) Diabetes mellitus type 2 in obese: Status: Acute Code(s): E11.69 - Type 2 diabetes mellitus with other specified complication; E66.9 - Obesity, unspecified (5) Atrial fibrillation: Status: Acute Code(s): I48.91 - Unspecified atrial fibrillation (6) Hyperkalemia: Status: Acute Code(s): E87.5 - Hyperkalemia Plan #Nonstemi cardiac enzymes were elevated, so cardiology consulted had left heart cath which showed 30 to 40% stenosis in proximal LAD with mid LAD showing 70% stenosis involving a large D1 ostial around 75% and around 80% stenosis of distal RCA. on aspirin, plavix 2D echo showed mild concentric LVH with EF of 55% and mild posterior hypokinesis, as well as severely enlarged left atrium Patient opts for staged PCI and this will be done tomorrow. on metoprolol and high intensity statin On heparin drip #ESRD: On hemodialysis on Tuesdays and Saturdays. Nephrology on board. #Hyponatremia: Stable #Type 2 diabetes mellitus. On Lantus 18 units nightly. Insulin sliding scale. Accu-Cheks ACH S. All meds on hold. #Paroxysmal A. fib: Rate controlled. on metoprolol. On Coumadin and INR is therapeutic #Dyslipidemia: On statin #Hypertension: on metoprolol and nifedipine #Depression: On Effexor and bupropion # CHronic Heart failure with preserved ejection fraction: Not in exacerbation. Depression: On Effexor DVT prophylaxis: On heparin drip. Coumadin on hold. Medications at Discharge Home Medications ascorbic acid (vitamin C) 1,000 mg tablet (Vitamin C) 1,000 mg PO DAILY suppliment 12/02/16 buspirone 10 mg tablet 10 mg PO BID depression 12/02/16 dicyclomine 20 mg tablet 20 mg PO TID IBS 12/02/16 venlafaxine 150 mg capsule,extended release 24 hr (Effexor XR) 150 mg PO DAILY depression 12/02/16 insulin NPH isoph U-100 human 100 unit/mL (3 mL) subcutaneous pen (Humulin N NPH U-100 Insulin KwikPen) 18 units SQ QHS DIABETES 05/23/20 simethicone 80 mg chewable tablet (Gas Relief (simethicone)) 80 mg PO TID PRN PRN Indigestion 03/06/21 calcium acetate(phosphat bind) 667 mg capsule 1,334 - 2,001 mg PO TIDCM supplement 03/07/21 warfarin 5 mg tablet 15 mg PO SHARP blood thinner 09/06/21 warfarin 6 mg tablet 12.5 mg PO MOTUWETHFRSA blood thinner 09/06/21 atorvastatin 80 mg tablet 80 mg PO DAILY cholesterol 12/23/21 cinnamon bark 500 mg capsule 500 mg PO DAILY supplement 12/23/21 gabapentin 600 mg tablet 600 mg PO BID nerve pain 12/23/21 insulin NPH isoph U-100 human 100 unit/mL (3 mL) subcutaneous pen (Novolin N Flexpen) 5 unit subcut DAILY dm 12/23/21 midodrine 10 mg tablet 10 mg PO TID bp 12/23/21 nifedipine 90 mg tablet,extended release 24 hr 90 mg PO DAILY bp 12/23/21 pyridoxine (vitamin B6) 50 mg tablet (Vitamin B-6) 50 mg PO DAILY 12/23/21 sucroferric oxyhydroxide 500 mg chewable tablet (Velphoro) 500 mg PO TUTHSA anemia 12/23/21 aspirin 81 mg tablet,delayed release 81 mg PO BREAKFAST #30 tabs 12/27/21 Hospital Course Operations None Procedures 2-D Echocardiogram and Cardiac catheterization Summary of Care Provided Minutes Spent on Discharge: 48 Hospital Course: Patient is a 61-year-old male with a past medical history as outlined was admitted through the ED on 12/23/2021 with a complaint of chest pain was started on the morning of admission. He had gone to his dialysis center and was awaiting dialysis and subsequently developed chest pain. Chest pain was retrosternal and he had increased sweating as well. He was admitted to be managed for chest pain rule out ACS. Initial troponin was negative but troponin subsequently trended upward so he was managed for non-STEMI. Cardiology was consulted. He was placed on heparin drip. He had cardiac cath which showed severe coronary artery disease in the mid LAD, at the site of a large diagonal artery as well as the distal RCA. Cardiology recommended that patient either be referred for CABG or to have a staged PCI. Patient opted for staged PCI. Cardiology however reviewed his images again and determined that patient would benefit from rotablation of the LAD. 2D echo showed mild concentric left ventricular hypertrophy with EF of 55% and mild posterior hypokinesis as well as severely enlarged left atrium. Cardiology recommended that patient be discharged and to follow-up with his primary chiseler head at [facility] in [place] for rotablation to be scheduled within a week. Patient remained stable and was discharged home on 12/27/2021. He is to follow-up with his primary care doctor and chiseler head within 1 week as outlined. Patient seen and examined prior to discharge. He felt well and had no active complaints. He had an uneventful night. Review of systems otherwise negative. Labs and vitals reviewed. Home medication reviewed and reconciled. Physical Exam Const alert, oriented x3 and no apparent distress General Appearance: cooperative, comfortable and well kempt Orientation / Consciousness: awake Exam Limitations: no limitations HEENT normocephalic, head/scalp atraumatic, hearing grossly normal bilaterally, moist oral mucous membranes and oropharynx normal Eyes PERRL, EOMs intact bilaterally and conjunctivae normal Neck no lymphadenopathy and supple Resp normal respiratory effort, no retractions, no use of accessory muscles and clear to auscultation bilaterally Cardio regular rate, regular rhythm, S1 normal heart sound, S2 normal heart sound and no murmurs GI normal to inspection, nondistended, normoactive bowel sounds, soft to palpation, non-tender and non-distended Extremity normal to inspection, full ROM and no clubbing, cyanosis or edema Skin no rashes or lesions noted Neuro oriented x3, CN's II-XII intact bilaterally, moves all extremities and no focal motor deficits Sensorium / Orientation: awake and alert Motor Exam: strength 5/5 throughout Psych affect normal Weight / BMI Weight Weight: 313 lb 7.957 oz Body Mass Index (BMI) 47.6 ABG / Lab / Microbiology Data Result Diagrams: 12/27/21 02:20 12/27/21 02:20 Laboratory: Laboratory Results - last 24 hr 12/26/21 16:51: POC Glucose 147 H 12/26/21 20:05: APTT 43.6 H 12/26/21 22:12: POC Glucose 179 H 12/27/21 02:20: WBC 10.9, RBC 2.94 L, Hgb 10.3 L, Hct 28.6 L, MCV 97.3 H D, MCH 35.0 H, MCHC 36.0 D, RDW Std Deviation 46.1 H, RDW Coeff of Kassandra 13.2, Plt Count 190, MPV 11.1, Immature Gran % (Auto) 0.300, Neut % (Auto) 47.9, Lymph % (Auto) 35.9, Douglas % (Auto) 11.6 H, Eos % (Auto) 3.8, Baso % (Auto) 0.5, Absolute Neuts (auto) 5.2, Absolute Lymphs (auto) 3.91, Nucleated RBC % 0 12/27/21 02:20: Sodium 133 L, Potassium 4.5, Chloride 92 L, Carbon Dioxide 29.0, Anion Gap 12, BUN 63 H, Creatinine 9.99 H*, Estim Creat Clear Calc 7.61, Est GFR (MDRD) Af Amer 7 L, Est GFR (MDRD) Non-Af 6 L, BUN/Creatinine Ratio 6.3 L, Glucose 154 H, Calcium 9.2 12/27/21 02:20: APTT 59.6 H 12/27/21 06:01: POC Glucose 151 H 12/27/21 08:00: APTT 31.6 12/27/21 11:29: POC Glucose 167 H D/C Instructions Discharge Diet: Low fat / Low cholesterol Weight Bearing Status: Weight bearing as tolerated Call your doctor if you observe: Fever of 101 or Higher, Shortness of breath, Swelling in the ankles and Chest pain Meaningful Use Info Meaningful Use Diagnoses (Choose all that apply): AMI AMI/Post PCI/Angioplasty Aspirin given w/in 24hrs of arrival?: Yes ASA at discharge?: Yes Antiplatelet Therapy at Discharge:: No Reason Antiplatelet Therapy not ordered:: on eliquis Statins at discharge?: Yes Mason/ARB at discharge?: No Reason Mason/ARB not ordered:: Worsening renal disease Beta Federico at discharge?: Yes Done w/ Acute DC measure.: Yes Documented LVEF (%): 55 Discharge Plan Admission Admit Date/Time: 12/23/21 12:58 Primary Reason for Your Visit: nonstemi Attending Provider: Clair Ramirez Primary Care Provider: Yola Ng Consulting Providers: Lillian Acharya ; Roly Charles ; Karlos Man Instructions Patient Instructions: First Aid: Heart Attacks, Heart Attack Meds Additional Instructions / Restrictions: follow up with your primary chiseler head at [facility] within one week to be scheduled for rotablation, as discussed with you by cardiology. Discharge Orders/Prescriptions Prescriptions: New aspirin 81 mg Tablet,Delayed Release (Dr/Ec) 81 mg PO BREAKFAST Qty: 30 1RF Continued ascorbic acid (vitamin C) [Vitamin C] 1,000 MG tablet 1,000 mg PO DAILY Label Comments: vitamin venlafaxine [Effexor XR] 150 MG capsule 150 mg PO DAILY Label Comments: depression dicyclomine 20 MG tablet 20 mg PO TID Label Comments: fatoumata buspirone 10 MG tablet 10 mg PO BID Label Comments: anxiety Humulin N NPH Insulin KwikPen 100 UNIT/ML insulin pen 18 units SQ QHS simethicone [Gas Relief (simethicone)] 80 MG tablet,chewable 80 mg PO TID PRN PRN (Reason: Indigestion) calcium acetate(phosphat bind) 667 mg capsule 1,334 - 2,001 mg PO TIDCM Label Comments: TAKE 1 CAPSULE DAILY warfarin 6 mg Tablet 12.5 mg PO MOTUWETHFRSA warfarin 5 MG tablet 15 mg PO SHARP atorvastatin 80 mg tablet 80 mg PO DAILY gabapentin 600 mg tablet 600 mg PO BID nifedipine 90 mg tablet extended release 24hr 90 mg PO DAILY pyridoxine (vitamin B6) [Vitamin B-6] 50 mg Tablet 50 mg PO DAILY midodrine 10 mg tablet 10 mg PO TID Label Comments: TAKE 1 TABLET THREE TIMES DAILY Novolin N Flexpen 100 unit/mL (3 mL) insulin pen 5 unit SUBCUT DAILY Label Comments: INJECT 5UNITS IN THE MORNING AND 18 UNITS SUBCUTANEOUSLY AT BEDTIME Velphoro 500 mg tablet,chewable 500 mg PO TUTHSA cinnamon bark 500 mg capsule 500 mg PO DAILY Label Comments: 1 capsule by mouth as directed Referrals / Follow Up: Yola Ng MD [Primary Care Provider] - 01/04/22 10:00 am (With Sarah Lao NP) Disposition Disposition (needs filled in before D/C Order can be placed): Home, Self Care Charges/Coding Visit Charges Inpatient E&M: 00964 Disch Hosp
--- NOTE | 2021-12-27 15:49 | NURSING ---
Charting reviewed with Finesse Rushing RN
== END 2021-12-27 15:14 | disposition home or self-care (01) | DRG 280 ==
LOC: ED 09:23 → PCU 09:38
PROVIDERS: Internal Medicine; Internal Medicine Cardiovascular Disease; Internal Medicine Interventional Cardiology; Internal Medicine Nephrology; Admitting Provider Internal Medicine; Emergency Provider Emergency Medicine; PCP Internal Medicine; Visit Provider Student in an Organized Health Care Education/Training Program
DX: I21.4 Non-ST elevation (NSTEMI) myocardial infarction (principal); N18.6 End stage renal disease; E87.1 Hypo-osmolality and hyponatremia; I13.2 Hypertensive heart and chronic kidney disease with heart failure and with stage 5 chronic kidney disease, or end stage renal disease; I50.32 Chronic diastolic (congestive) heart failure; Z68.42 Body mass index [BMI] 45.0-49.9, adult; E11.22 Type 2 diabetes mellitus with diabetic chronic kidney disease; Z99.2 Dependence on renal dialysis; Z79.4 Long term (current) use of insulin; E11.51 Type 2 diabetes mellitus with diabetic peripheral angiopathy without gangrene; E66.01 Morbid (severe) obesity due to excess calories; E11.42 Type 2 diabetes mellitus with diabetic polyneuropathy; I48.0 Paroxysmal atrial fibrillation; E78.00 Pure hypercholesterolemia, unspecified; E78.5 Hyperlipidemia, unspecified; E87.5 Hyperkalemia; I25.10 Atherosclerotic heart disease of native coronary artery without angina pectoris; R79.1 Abnormal coagulation profile; Z79.01 Long term (current) use of 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; Z87.891 Personal history of nicotine dependence; Z86.16 Personal history of COVID-19; Z86.718 Personal history of other venous thrombosis and embolism; F32.A Depression, unspecified
CPT/HCPCS: 36415; 71045; 80048; 82962; 83735; 84100; 84132; 84484; 85025; 85610; 85730; 90937; 93005; 93306; 93454; 99152; 99153; 99251; 99285; J7040; Q9957; Q9967; A4216; C1760; C1769; C8929; G0257; G0463

== ENCOUNTER 2021-12-30 07:48 | Emergency (ER) | payer MEDICARE, SELFPAY ==
[2021-12-30] VITALS (8 sets, daily range): BP systolic 137–166; BP diastolic 62–92; PULSE 73–100; RESP 11–17; TEMP 36.4; O2SAT 92–99; BMI 48.3
--- NOTE | 2021-12-30 08:00 | EKG12_ITS ---
Test Reason : CP Blood Pressure : / mmHG Vent. Rate : 096 BPM Atrial Rate : 096 BPM P-R Int : 000 ms QRS Dur : 074 ms QT Int : 372 ms P-R-T Axes : 000 024 009 degrees QTc Int : 469 ms Sinus rhythm with PAC's Low voltage QRS Nonspecific ST and T wave abnormality Abnormal ECG Confirmed by OFELIA HARVEY, LISY ([id number]), sports editor KARRI AMIN ([id number]) on 01/04/2022 9:11:12 A M Referred By: Confirmed By:RICK GILBERT MD
[2021-12-30 08:09] LABS: Absolute Lymphocyte Count 2.43 X10^3/uL (0.83-4.51); Absolute Neutrophil Count 6.3 X10^3/uL (2.0-7.7); Basophil# 0.04 X10^3/uL; Basophil% 0.4 % (0-1); Eosinophil# 0.33 X10^3/uL; Eosinophils% 3.2 % (0-5); Hematocrit 28.3 % (40-54); Hemoglobin 9.9 g/dL (13.0-16.5); Lymphocyte # 2.43 X10^3/ul (0.83-4.51); Lymphocyte % 23.5 % (19-41); Mean Corpuscular Hgb 34.7 pg (27.0-32.0); Mean Corpuscular Volume 99.3 fL (80-94); Mean Platelet Vol. 10.8 fl (6.2-12.0); Monocyte% 11.6 % (0-10); NRBC Flagged by Analyzer 0 % (0-5); Neutrophil # 6.28 X10^3/uL (2.7-7.7); Neutrophil % 60.7 % (47-70); Platelet Count 266 K/mm3 (150-450); RBC Distribution Width CV 13.4 % (11.6-14.6); RBC Distribution Width SD 48.4 fl (35.1-43.9); Red Blood Count 2.85 M/mm3 (4.6-6.2); White Blood Count 10.3 K/mm3 (4.4-11.0)
--- NOTE | 2021-12-30 08:15 | RAD_ITS ---
STUDY: X-RAY CHEST REASON FOR EXAM: Male, 61 years old. Chest pain TECHNIQUE: Single AP portable view of the chest. COMPARISON: Comparison is made with prior study 12/23/2021. FINDINGS: EKG electrodes are seen. The lungs are clear and expanded. There is no demonstrated pleural abnormality. Normal size heart. Normal mediastinum and sachi. Normal visualized pulmonary arteries. Normal visualized aortic arch and descending thoracic aorta. Normal visualized thoracic spine. Normal visualized ribs, clavicles, and shoulders. There is no demonstrated abnormality of the visualized soft tissue structures of the upper abdomen. RAD/Chest 1 View (Portable) IMPRESSION: Normal x-ray examination of the chest. Electronically Signed: Roby Wilkins MD at 8:41 EST ,
[2021-12-30 08:29] LABS: Anion Gap 14 (5-15); BUN 81 mg/dL (7-18); BUN/Creat Ratio 7.6 RATIO (10-20); Calcium,Total 8.9 mg/dL (8.5-10.1); Chloride 96 mmol/L (98-107); EST Glomerular Filtration Rate 5 mL/min (>60); Est Glom Filt Rate - Afr Amer 6 mL/min (>60); Estimated Creatinine Clearance 7.17 ml/min; Glucose 254 mg/dL (74-106); Potassium 4.6 mmol/L (3.5-5.1); Sodium Level 138 mmol/L (136-145); Troponin-I HS (w/2H Reflex) 28 pg/mL (3.0-78.0)
--- NOTE | 2021-12-30 08:33 | EDS_ITS ---
HPI History of Present Illness Chief Complaint: Chest Pain Informant: patient Onset/Context/Timing Onset: Today Activity at onset: sudden Timing: Continuous Quality: Positive for Heaviness Location: Substernal Worsened By: Nothing Relieved By: NTG Associated Symptoms: Negative for Nausea, Vomiting, Diaphoresis, Dyspnea, Cough, Fever, Lightheadedness, Acid Reflux or Palpitations Narrative Narrative: Presents with chest pain that began this morning. Patient states she was at dialysis when the pain began. Patient states that he was just getting ready to start his dialysis treatment when the pain began. Patient describes it as a heaviness. Patient states it is over the substernal area. Patient states nothing makes it worse. Patient states the nitroglycerin given by EMS makes it better. Patient denies any shortness of breath. Patient denies any diaphoresis. Patient denies any nausea or vomiting. Patient was recently admitted here for chest pain last week. Patient states he was discharged and scheduled to follow-up with his manager motor at [facility]. Patient states that appointment is not for 2 more weeks. CVD Risk Factors: Positive for Hypertension, Diabetes and Family History 1' </=55; Negative for Hypercholesterolemia or Smoking PE Risk Factors: Negative for Recent Travel/Surgery, Recent Immobilization, Prior DVT or PE or Cancer [facility] Medical History (HFpEF) heart failure with preserved ejection fraction Acute exacerbation of CHF (congestive heart failure) [id number] kidney injury Anemia Anxiety Atrial fibrillation [facility] Cardiology follow-up encounter Chest pain CHF (congestive heart failure) Chronic kidney failure Chronic renal failure, 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 Colonization status Congestive heart failure (CHF) Coronary artery disease COVID CPAP (continuous positive airway pressure) dependence Delayed wound healing Depression Dialysis catheter clot or failure Diastolic CHF, acute Dietary restriction Dupuytrens contracture DVT (deep venous thrombosis) Edema of left lower leg due to peripheral venous insufficiency End stage renal disease Equinus contracture of left ankle ESRD (end stage renal disease) on dialysis Former smoker Gastric reflux Hammer toe of left foot Hemodialysis patient High cholesterol History of DVT of lower extremity History of edema History of IBS History of pain when walking History of renal disease History of stress test Hx of echocardiogram Insulin dependent diabetes mellitus Loss of consciousness Loss of hearing Malnutrition Morbid obesity Other specified peripheral vascular diseases Pressure ulcer Problem with dialysis access Pulmonary hypertension Shortness of breath on exertion Spitting suture Syncope Transfusion (red blood cell) associated hemochromatosis Trigger finger Type 2 diabetes mellitus Type 2 diabetes mellitus with diabetic polyneuropathy Ulcer of left lower extremity with fat layer exposed Wears glasses Home Medications ascorbic acid (vitamin C) 1,000 mg tablet (Vitamin C) 1,000 mg PO DAILY suppliment 12/02/16 [History Last Taken 12/22/21] buspirone 10 mg tablet 10 mg PO BID depression 12/02/16 [History Last Taken 12/22/21] dicyclomine 20 mg tablet 20 mg PO TID IBS 12/02/16 [History Last Taken 12/22/21] venlafaxine 150 mg capsule,extended release 24 hr (Effexor XR) 150 mg PO DAILY depression 12/02/16 [History Last Taken 12/22/21] insulin NPH isoph U-100 human 100 unit/mL (3 mL) subcutaneous pen (Humulin N NPH U-100 Insulin KwikPen) 18 units SQ QHS DIABETES 05/23/20 [History Last Taken 12/22/21] simethicone 80 mg chewable tablet (Gas Relief (simethicone)) 80 mg PO TID PRN PRN Indigestion 03/06/21 [History Last Taken 12/22/21] calcium acetate(phosphat bind) 667 mg capsule 1,334 - 2,001 mg PO TIDCM supplement 03/07/21 [History Last Taken 12/22/21] warfarin 5 mg tablet 15 mg PO SHARP blood thinner 09/06/21 [History Last Taken 12/19/21] warfarin 6 mg tablet 12.5 mg PO MOTUWETHFRSA blood thinner 09/06/21 [History Last Taken 12/21/21] atorvastatin 80 mg tablet 80 mg PO DAILY cholesterol 12/23/21 [History Last Taken 12/22/21] cinnamon bark 500 mg capsule 500 mg PO DAILY supplement 12/23/21 [History Last Taken 12/22/21] gabapentin 600 mg tablet 600 mg PO BID nerve pain 12/23/21 [History Last Taken 12/22/21] insulin NPH isoph U-100 human 100 unit/mL (3 mL) subcutaneous pen (Novolin N Flexpen) 5 unit subcut DAILY dm 12/23/21 [History Last Taken 12/22/21] midodrine 10 mg tablet 10 mg PO TID bp 12/23/21 [History Last Taken 12/23/21] nifedipine 90 mg tablet,extended release 24 hr 90 mg PO DAILY bp 12/23/21 [History Last Taken 12/22/21] pyridoxine (vitamin B6) 50 mg tablet (Vitamin B-6) 50 mg PO DAILY 12/23/21 [History Last Taken 12/22/21] sucroferric oxyhydroxide 500 mg chewable tablet (Velphoro) 500 mg PO TUTHSA anemia 12/23/21 [History Last Taken 12/21/21] aspirin 81 mg tablet,delayed release 81 mg PO BREAKFAST #30 tabs 12/27/21 [Rx Last Taken Unknown] nitroglycerin 0.4 mg sublingual tablet 0.4 mg sublingual Q5M PRN chest pain #25 tabs 12/30/21 [Rx Last Taken Unknown] Allergy/AdvReac Type Severity Reaction Status Date / Time cephalexin Allergy Hives Verified 10/18/21 12:37 Penicillins Allergy Hives Verified 10/18/21 12:37 Family History Mother Diabetes Heart disease Hypertension Surgical History History of arteriovenostomy for renal dialysis (~07/2020) History of carpal tunnel surgery of left wrist History of carpal tunnel surgery of right wrist History of colonoscopy History of surgery History of tonsillectomy and adenoidectomy Social History housing: house Smoking Status: Former smoker alcohol intake: never ROS ROS ED Constitutional Constitutional ED: Denies chills or fever(s) Eyes Eyes: Denies blurry vision or change in vision ENT ENT ED: Reports rhinorrhea; Denies sore throat Cardiovascular Cardiovascular: Reports chest pain; Denies palpitations Respiratory/Chest Respiratory/Chest: Reports dyspnea; Denies cough Gastrointestinal Gastrointestinal: Reports nausea; Denies abdominal pain or vomiting Genitourinary Genitourinary ED: Reports dysuria; Denies hematuria Musculoskeletal Musculoskeletal: Denies back pain or neck pain Integumentary Denies abscess or rash Neurologic Neurologic: Denies headache(s) or weakness Allergic/Immunologic Allergic/Immunologic ED: Denies mouth swelling or urticaria EXAM Physical Exam Const Vital Signs: 12/30/21 07:49 12/30/21 08:01 12/30/21 07:55 Temperature 97.5 F L Temperature Source Temporal Pulse Rate 100 Respiratory Rate 11 L Respiratory Effort Blood Pressure 166/85 H Blood Pressure Mean 112 Pulse Ox 99 99 Oxygen Delivery Method Room Air Room Air 12/30/21 08:16 12/30/21 08:58 12/30/21 09:40 Temperature Temperature Source Pulse Rate 77 83 Respiratory Rate 14 17 Respiratory Effort Normal Blood Pressure 140/69 H 153/71 H Blood Pressure Mean 92 98 Pulse Ox 94 92 Oxygen Delivery Method Room Air Room Air 12/30/21 10:22 12/30/21 11:28 Temperature Temperature Source Pulse Rate 75 73 Respiratory Rate 16 15 Respiratory Effort Blood Pressure 144/63 H 159/92 H Blood Pressure Mean 90 114 Pulse Ox 96 95 Oxygen Delivery Method Room Air Room Air Positive well nourished, well developed and obese General Appearance ED: well developed and NAD Nutritional Appearance: obese HEENT normocephalic and atraumatic Eyes PERRL and EOMs intact bilaterally Neck supple and no JVD Chest Wall palpation of chest normal Resp normal respiratory effort and clear to auscultation bilaterally Effort and Inspection: Negative for respiratory distress Cardio regular rate Rhythm: abnormal rhythm regularly irregular and ectopic beats GI normal to inspection, nondistended, normoactive bowel sounds, soft to palpation, non-tender and non-distended Extremity normal to inspection General Extremety ED: Negative for edema or tenderness General Extremity: Negative for edema Neuro oriented x3, CN's II-XII intact bilaterally and no sensory deficits noted Sensorium / Orientation: awake and alert Motor Exam: strength 5/5 throughout Psych mental status grossly normal Heart Score History: Moderately Suspicious ECG: Nonspecific Repolarization Age: >45 - <65 years Risk Factors: >/= 3 Risk Factors or History of CAD Troponin: </= Normal Limit Score: 5 MDM MDM MDM Narrative Medical decision making narrative: EKG was obtained. On my interpretation, it showed a normal sinus rhythm with frequent PACs with a rate of 96. MD interval, QRS interval, and QTc intervals were all normal. [place] was normal. There are nonspecific ST-T wave changes. CBC shows a mild anemia with a hemoglobin of 9.9 and hematocrit 28.3. These are consistent with prior results. Basic metabolic profile shows a BUN of 81 and creatinine of 10.6. This is consistent with prior results. High-sensitivity troponin was 28. Portable 1 view chest x-ray was obtained. On my interpretation, lung harrison are clear. There is normal cardiac silhouette. Bony thorax is normal. There is no acute process noted. Radiologist also interpreted the x-ray and agrees. 2-hour repeat high-sensitivity troponin was obtained and was normal. Patient was advised of his findings. Patient has an appointment with his manager motor at [facility]. Patient was instructed to follow-up with this. Patient does not have sublingual nitroglycerin at home. Patient is given a prescription for this. Patient was instructed to take 1 every 5 minutes as needed for chest pain. Patient was advised to call EMS if his pain does not improve after 1 or 2 sublingual nitroglycerin tablets. Patient was instructed return if worse in any way. Patient understood and was agreeable with the plan. All questions were answered. Lab Data Attestation: I reviewed the patient's lab results. Labs: Laboratory Results - last 24 hr 12/30/21 12/30/21 12/30/21 08:03 08:03 10:12 WBC 10.3 RBC 2.85 L Hgb 9.9 L Hct 28.3 L MCV 99.3 H MCH 34.7 H MCHC 35.0 RDW Std Deviation 48.4 H RDW Coeff of Kassandra 13.4 Plt Count 266 MPV 10.8 Immature Gran % (Auto) 0.600 Neut % (Auto) 60.7 Lymph % (Auto) 23.5 [place] % (Auto) 11.6 H Eos % (Auto) 3.2 Baso % (Auto) 0.4 Absolute Neuts (auto) 6.3 Absolute Lymphs (auto) 2.43 Nucleated RBC % 0 Sodium 138 Potassium 4.6 Chloride 96 L Carbon Dioxide 28.0 Anion Gap 14 BUN 81 H Creatinine 10.60 H* Estim Creat Clear Calc 7.17 Est GFR (MDRD) Af Amer 6 L Est GFR (MDRD) Non-Af 5 L BUN/Creatinine Ratio 7.6 L Glucose 254 H Calcium 8.9 Troponin I High Sens 28 26 Radiography Diagnostic Testing: Clinical Impression(s) from Imaging Studies Chest X-Ray 12/30/21 08:15 IMPRESSION: Normal x-ray examination of the chest. Electronically Signed: Roby Wilkins MD at 8:41 EST , EKG Initial EKG: Attestation: I personally reviewed and interpreted this EKG as follows: Interpretation: Sinus Rhythm (with frequent PAC's with a rate of96) and Non-Specific ST Changes Prior EKG tracings: available for review Prior: Unchanged (12/27/2021) Discharge Plan Triage Chief Complaint: Chest Pain ED Provider: Immanuel Nava Dx/Rx/DC Orders Clinical Impression: Chest pain, ESRD (end stage renal disease) on dialysis Instructions: ED Chronic Kidney Disease (CKD), ED Chest Pain, Uncertain Cause Prescriptions: New nitroglycerin 0.4 mg tablet, sublingual 0.4 mg sublingual Q5M PRN (Reason: chest pain) Qty: 25 0RF Rx Instructions: do not exceed 3 doses per episode No Action ascorbic acid (vitamin C) [Vitamin C] 1,000 MG tablet 1,000 mg PO DAILY Label Comments: vitamin venlafaxine [Effexor XR] 150 MG capsule 150 mg PO DAILY Label Comments: depression dicyclomine 20 MG tablet 20 mg PO TID Label Comments: fatoumata buspirone 10 MG tablet 10 mg PO BID Label Comments: anxiety Humulin N NPH Insulin KwikPen 100 UNIT/ML insulin pen 18 units SQ QHS simethicone [Gas Relief (simethicone)] 80 MG tablet,chewable 80 mg PO TID PRN PRN (Reason: Indigestion) calcium acetate(phosphat bind) 667 mg capsule 1,334 - 2,001 mg PO TIDCM Label Comments: TAKE 1 CAPSULE DAILY warfarin 6 mg Tablet 12.5 mg PO MOTUWETHFRSA warfarin 5 MG tablet 15 mg PO SHARP atorvastatin 80 mg tablet 80 mg PO DAILY gabapentin 600 mg tablet 600 mg PO BID nifedipine 90 mg tablet extended release 24hr 90 mg PO DAILY pyridoxine (vitamin B6) [Vitamin B-6] 50 mg Tablet 50 mg PO DAILY midodrine 10 mg tablet 10 mg PO TID Label Comments: TAKE 1 TABLET THREE TIMES DAILY Novolin N Flexpen 100 unit/mL (3 mL) insulin pen 5 unit SUBCUT DAILY Label Comments: INJECT 5UNITS IN THE MORNING AND 18 UNITS SUBCUTANEOUSLY AT BEDTIME Velphoro 500 mg tablet,chewable 500 mg PO TUTHSA cinnamon bark 500 mg capsule 500 mg PO DAILY Label Comments: 1 capsule by mouth as directed aspirin 81 mg Tablet,Delayed Release (Dr/Ec) 81 mg PO BREAKFAST Qty: 30 1RF Primary Care Provider: Yola Ng Referrals: Jana Santana MD [Non-Staff] - 3-5 Days Yola Ng MD [Primary Care Provider] - 3-5 Days Disposition Disposition: Home, Self Care
[2021-12-30 10:07] LABS: Reflex Troponin-HS? (from REC) Y
[2021-12-30 10:38] LABS: Troponin-I HS 26 pg/mL (3.0-78.0)
== END 2021-12-30 12:04 | disposition home or self-care (01) ==
PROVIDERS: Emergency Provider Emergency Medicine; PCP Internal Medicine; Visit Provider Emergency Medicine
DX: R07.9 Chest pain, unspecified (principal); Z99.2 Dependence on renal dialysis; E11.22 Type 2 diabetes mellitus with diabetic chronic kidney disease; E11.42 Type 2 diabetes mellitus with diabetic polyneuropathy; N18.6 End stage renal disease; Z79.4 Long term (current) use of insulin; I25.10 Atherosclerotic heart disease of native coronary artery without angina pectoris; E78.00 Pure hypercholesterolemia, unspecified; I25.2 Old myocardial infarction; E66.9 Obesity, unspecified; Z86.16 Personal history of COVID-19; Z86.718 Personal history of other venous thrombosis and embolism; Z79.82 Long term (current) use of aspirin; Z79.01 Long term (current) use of 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; Z79.899 Other long term (current) drug therapy; Z87.891 Personal history of nicotine dependence
CPT/HCPCS: 71045; 80048; 84484; 85025; 93005; 99285; A4216

== ENCOUNTER 2022-01-06 07:46 | Inpatient (IN) | payer MEDICARE, SELFPAY ==
[2022-01-06] VITALS (13 sets, daily range): BP systolic 127–165; BP diastolic 70–89; PULSE 51–117; RESP 14–18; TEMP 36.4–36.9; O2SAT 94–100; BMI 48.3
--- NOTE | 2022-01-06 07:57 | RAD_ITS ---
STUDY: X-RAY CHEST REASON FOR EXAM: Male, 61 years old. Chest pain TECHNIQUE: Single AP portable view of the chest. COMPARISON: Comparison is made with prior study dated 12/30/2021. FINDINGS: EKG electrodes are seen. Mild degree of increased markings at the lung bases slightly more prominent at the right lung base suggests some possible early infiltrates. There is no demonstrated pleural abnormality. Normal size heart. Normal mediastinum and sachi. Normal visualized pulmonary arteries. Normal visualized aortic arch and descending thoracic aorta. Normal visualized thoracic spine. Normal visualized ribs, clavicles, and shoulders. There is no demonstrated abnormality of the visualized soft tissue structures of the upper abdomen. RAD/Chest 1 View (Portable) IMPRESSION: Mild degree of increased markings at the lung bases suggestive of early bibasilar infiltrates worse on the right side. Electronically Signed: Roby Wilkins MD at 8:58 EST ,
[2022-01-06 08:35] LABS: Absolute Lymphocyte Count 1.74 X10^3/uL (0.83-4.51); Absolute Neutrophil Count 9.2 X10^3/uL (2.0-7.7); Basophil# 0.04 X10^3/uL; Basophil% 0.3 % (0-1); Eosinophil# 0.52 X10^3/uL; Eosinophils% 4.2 % (0-5); Hematocrit 28.1 % (40-54); Hemoglobin 9.4 g/dL (13.0-16.5); Lymphocyte # 1.74 X10^3/ul (0.83-4.51); Lymphocyte % 13.9 % (19-41); Mean Corp Hgb Conc 33.5 g/dL (32-36); Mean Corpuscular Hgb 33.6 pg (27.0-32.0); Mean Corpuscular Volume 100.4 fL (80-94); Mean Platelet Vol. 10.1 fl (6.2-12.0); NRBC Flagged by Analyzer 0 % (0-5); Neutrophil # 9.16 X10^3/uL (2.7-7.7); Neutrophil % 73.2 % (47-70); Platelet Count 251 K/mm3 (150-450); RBC Distribution Width CV 13.5 % (11.6-14.6); RBC Distribution Width SD 49.1 fl (35.1-43.9); White Blood Count 12.5 K/mm3 (4.4-11.0)
[2022-01-06 08:46] LABS: International Normalized Ratio 1.1; Prothrombin Time (Protime)PT. 14.1 SECONDS (11.7-14.9)
[2022-01-06 09:03] LABS: Anion Gap 12 (5-15); BUN 55 mg/dL (7-18); BUN/Creat Ratio 5.7 RATIO (10-20); Calcium,Total 9.2 mg/dL (8.5-10.1); Chloride 96 mmol/L (98-107); Creatinine, Serum 9.68 mg/dL (0.70-1.30); EST Glomerular Filtration Rate 6 mL/min (>60); Est Glom Filt Rate - Afr Amer 7 mL/min (>60); Estimated Creatinine Clearance 16.83 ml/min; Glucose 288 mg/dL (74-106); Potassium 4.1 mmol/L (3.5-5.1); Sodium Level 137 mmol/L (136-145); Troponin-I HS (w/2H Reflex) 20 pg/mL (3.0-78.0)
[2022-01-06 10:32] LABS: Reflex Troponin-HS? (from REC) Y
[2022-01-06 11:03] LABS: Partial Thromboplast Time 28.6 Seconds (24.1-36.2)
--- NOTE | 2022-01-06 11:04 | HP.PCM.HOS_ITS ---
HPI - General General Date of Admission: 01/06/22 Date of Service: 01/06/22 Chief Complaint: Chest pain HPI Narrative MAREK RAMSAY, is a 61 M with past medical history significant for CAD. Patient was admitted earlier on in the month underwent left heart catheterization found to have a 70% LAD lesion, and 80% distal RCA lesion. Patient was offered PCI involving the lesions versus bypass. Patient opted for stage PCI. Patient was supposed to follow-up with his primary gas dispenser for elective procedure. He did develop chest pain while at dialysis. Presented to the emergency department. Initial cardiac enzymes came back unremarkable. Call was placed to [facility] for patient to be transferred he was accepted for transfer however bed was not available hence the decision to admit patient for subsequent inpatient management pending transfer to [facility] Medical History (HFpEF) heart failure with preserved ejection fraction Acute exacerbation of CHF (congestive heart failure) [id number] kidney injury Anemia Anxiety Atrial fibrillation [facility] Cardiology follow-up encounter Chest pain CHF (congestive heart failure) Chronic kidney failure Chronic renal failure, 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 Colonization status Congestive heart failure (CHF) Coronary artery disease COVID CPAP (continuous positive airway pressure) dependence Delayed wound healing Depression Diabetes mellitus type 2 in obese Dialysis catheter clot or failure Diastolic CHF, acute Dietary restriction Dupuytrens contracture DVT (deep venous thrombosis) Edema of left lower leg due to peripheral venous insufficiency End stage renal disease Equinus contracture of left ankle ESRD (end stage renal disease) on dialysis ESRD (end stage renal disease) on dialysis Former smoker Gastric reflux Hammer toe of left foot Hemodialysis patient High cholesterol History of DVT of lower extremity History of edema History of IBS History of pain when walking History of renal disease History of stress test Hx of echocardiogram Hypertension Insulin dependent diabetes mellitus Loss of consciousness Loss of hearing Malnutrition Morbid obesity NSTEMI (non-ST elevated myocardial infarction) Other specified peripheral vascular diseases Pressure ulcer Problem with dialysis access Pulmonary hypertension Renal failure, chronic Shortness of breath on exertion Spitting suture Syncope Transfusion (red blood cell) associated hemochromatosis Trigger finger Type 2 diabetes mellitus Type 2 diabetes mellitus with diabetic polyneuropathy Ulcer of left lower extremity with fat layer exposed Wears glasses Home Medications ascorbic acid (vitamin C) 1,000 mg tablet (Vitamin C) 1,000 mg PO DAILY suppliment 12/02/16 [History Last Taken 01/05/22] buspirone 10 mg tablet 10 mg PO BID depression 12/02/16 [History Last Taken 01/05/22] dicyclomine 20 mg tablet 20 mg PO TID IBS 12/02/16 [History Last Taken 01/05/22] venlafaxine 150 mg capsule,extended release 24 hr (Effexor XR) 150 mg PO DAILY depression 12/02/16 [History Last Taken 01/05/22] simethicone 80 mg chewable tablet (Gas Relief (simethicone)) 80 mg PO TID PRN PRN Indigestion 03/06/21 [History Last Taken 01/05/22] calcium acetate(phosphat bind) 667 mg capsule 1,334 - 2,001 mg PO TIDCM supplement 03/07/21 [History Last Taken 01/05/22] warfarin 5 mg tablet 15 mg PO SHARP blood thinner 09/06/21 [History Last Taken 01/02/22] warfarin 6 mg tablet 6 mg PO MOTUWETHFRSA blood thinner 09/06/21 [History Last Taken 01/05/22] atorvastatin 80 mg tablet 80 mg PO DAILY cholesterol 12/23/21 [History Last Taken 01/05/22] cinnamon bark 500 mg capsule 500 mg PO DAILY supplement 12/23/21 [History Last Taken 01/05/22] gabapentin 600 mg tablet 600 mg PO BID nerve pain 12/23/21 [History Last Taken 01/05/22] insulin NPH isoph U-100 human 100 unit/mL (3 mL) subcutaneous pen (Novolin N Flexpen) 5 unit subcut BID dm 12/23/21 [History Last Taken 01/06/22] midodrine 10 mg tablet 10 mg PO TID bp 12/23/21 [History Last Taken 01/06/22] pyridoxine (vitamin B6) 50 mg tablet (Vitamin B-6) 50 mg PO DAILY 12/23/21 [History Last Taken 01/05/22] aspirin 81 mg tablet,delayed release 81 mg PO BREAKFAST #30 tabs 12/27/21 [Rx Last Taken 01/05/22] nitroglycerin 0.4 mg sublingual tablet 0.4 mg sublingual Q5M PRN chest pain #25 tabs 12/30/21 [Rx Last Taken 01/06/22] isosorbide mononitrate 30 mg tablet,extended release 24 hr 30 mg PO DAILY HEART 01/06/22 [History Last Taken 01/05/22] pantoprazole 40 mg tablet,delayed release 40 mg PO DAILY GERD 01/06/22 [History Last Taken 01/05/22] Allergy/AdvReac Type Severity Reaction Status Date / Time cephalexin Allergy Hives Verified 01/06/22 07:51 Penicillins Allergy Hives Verified 01/06/22 07:51 Family History Mother Diabetes Heart disease Hypertension Surgical History History of arteriovenostomy for renal dialysis (~07/2020) History of carpal tunnel surgery of left wrist History of carpal tunnel surgery of right wrist History of colonoscopy History of surgery History of tonsillectomy and adenoidectomy Social History housing: house Smoking Status: Former smoker alcohol intake: never ROS ROS Narrative GENERAL: denies fever, chills, night sweats, HEENT: denies headache, sinus congestion RESPIRATORY: shortness of breath, dyspnea on exertion CARDIAC: chest pain, GASTROINTESTINAL: denies abdominal pain, nausea, GENITOURINARY: denies dysuria, urgency, frequency, EXTREMITY: denies swelling MUSCULOSKELETAL: denies current joint pain or tenderness NEUROLOGIC: denies focal numbness, weakness, tingling HEMATOLOGIC: denies easy bruising and/or hemorrhage INTEGUMENT: denies rashes PSYCHIATRIC: denies suicidal or homicidal ideation Vital Signs Vital Signs Vital Signs: 01/06/22 07:47 01/06/22 08:30 01/06/22 09:18 Temperature 97.6 F L Temperature Source Temporal Pulse Rate 51 L 104 H Respiratory Rate 14 16 Respiratory Effort Normal Non-Labored Blood Pressure 165/72 H 162/80 H Blood Pressure Mean 103 107 Pulse Ox 100 99 Oxygen Delivery Method Room Air 01/06/22 10:10 Temperature Temperature Source Pulse Rate 111 H Respiratory Rate 14 Respiratory Effort Blood Pressure 144/89 H Blood Pressure Mean 107 Pulse Ox 96 Oxygen Delivery Method Room Air Weight Weight: 146.6 kg Body Mass Index (BMI) 0.1 Physical Exam Narrative GENERAL: cooperative HEENT: Atraumatic; normocephalic EYES; Anicteric, Normal Conjunctiva NECK; supple, normal thyroid, RESPIRATORY: Diminished to auscultation CARDIOVASCULAR: Regular S1 S2, GI: soft, normoactive bowel sounds, : No Renal angle tenderness; EXTREMITIES: No edema, no clubbing, MUSCULOSKELETAL: no muscle wasting NEURO: Awake; no lateralizing signs. SKIN: No Rash PSYCH; Flat affect Results Lab / Micro Data Result Diagrams: 01/06/22 08:30 01/06/22 08:30 Labs: Laboratory Results - last 24 hr 01/06/22 08:30: WBC 12.5 H, RBC 2.80 L, Hgb 9.4 L, Hct 28.1 L, MCV 100.4 H, MCH 33.6 H, MCHC 33.5, RDW Std Deviation 49.1 H, RDW Coeff of Kassandra 13.5, Plt Count 251, MPV 10.1, Immature Gran % (Auto) 0.400, Neut % (Auto) 73.2 H, Lymph % (Auto) 13.9 L, [place] % (Auto) 8.0, Eos % (Auto) 4.2, Baso % (Auto) 0.3, Absolute Neuts (auto) 9.2 H, Absolute Lymphs (auto) 1.74, Nucleated RBC % 0 01/06/22 08:30: PT 14.1, INR 1.1 01/06/22 08:30: Sodium 137, Potassium 4.1, Chloride 96 L, Carbon Dioxide 29.0, Anion Gap 12, BUN 55 H, Creatinine 9.68 H*, Estim Creat Clear Calc 16.83, Est GFR (MDRD) Af Amer 7 L, Est GFR (MDRD) Non-Af 6 L, BUN/Creatinine Ratio 5.7 L, Glucose 288 H, Calcium 9.2, Troponin I High Sens 20 01/06/22 08:30: APTT 28.6 Radiology Impression Chest X-Ray 01/06/22 07:57 IMPRESSION: Mild degree of increased markings at the lung bases suggestive of early bibasilar infiltrates worse on the right side. Electronically Signed: Roby Wilkins MD at 8:58 EST , Assessment & Plan Assessment/Plan (1) Chest pain: PLAN: Plan Patient is a 61-year-old gentleman with past medical history signal for end- stage renal disease with known CAD presented with chest pain 1. Chest pain consistent with unstable angina ? Patient started on treatment per protocol including beta-blockers statin therapy aspirin as well as heparin. Call was placed for patient to be transferred to [facility]. Patient has been accepted for transfer currently waiting for bed 2. Coronary artery disease -Patient underwent left heart catheterization on 12/26/2021. Found to have Severe coronary artery atherosclerosis involving the distal RCA large dominant vessel, calcification of the proximal LAD with bifurcational lesion of mid LAD and a large ostial diagonal.. Plans for patient to be transferred to [facility] for either high risk PCI versus CABG 3.? End-stage renal disease ?On dialysis on Tuesdays and Saturdays 4.? Paroxysmal A. fib ? Rate controlled on systemic anticoagulation with Coumadin INR is therapeutic. Coumadin held patient started on heparin 5.? Anemia - Secondary to chronic disorder monitoring H&H and transfuse if patient becomes symptomatic or hemoglobin falls below? 7 6.? Diabetes mellitus type II -patient's oral hypoglycemics held. Placed on long acting insulin, Accu-Cheks a.c. and at bedtime and covered with sliding scale insulin 7.? History of previous DVT involving lower extremity ?Patient is on warfarin 8.? Class III obesity with BMI of 47.3 ?Weight loss advised 9.? Chronic congestive heart failure with preserved ejection fraction ? Stable, currently not in exacerbation 10.? Dyslipidemia -Patient is on statin therapy, continued at home dose 11.? Depression ? Patient is on Effexor did continue 12. DVT prophylaxis ? Patient is on systemic anticoagulation Advance planning; did discuss with the patient and family regarding advanced directives as well as CODE STATUS. Did explain the various scenarios involved ( FULL CODE, DNR CCA, DNR CCA with no intubation, and DNR CC and what each meant) patient elected to remain full code with CPR and intubation if needed. Order was placed. Time spent on discussion 18 minutes. Charges/Coding Visit Charges Inpatient E&M: 31653 Init Hosp L3 Procedures Hospitalists Procedures: 55103 Advncd Care Plan 30 Min
[2022-01-06 11:18] LABS: Troponin-I HS 21 pg/mL (3.0-78.0)
--- NOTE | 2022-01-06 11:20 | NURSING ---
[address] CP OBS [facility]CL[facility]
[2022-01-06] MEDS: HEPARIN/D5w 25,000 UNITS 25,000 UNITS/250 ML IV.SOLN. 0.2 UNITS CONT INF (11:23)
--- NOTE | 2022-01-06 11:43 | EDS_ITS ---
HPI History of Present Illness Chief Complaint: Chest Pain Narrative Narrative: 61-year-old male with history of CAD, hyperlipidemia, atrial fibrillation, end- stage renal disease on dialysis presenting with chest pain which he feels like his chest pressure. Patient states that he was here earlier this month and had a cardiac catheterization and that his cath showed he had some blockages which could not be corrected here at [facility]. He states that there was a attempt to transfer him to [facility] however there was no beds. The plan going forward was to medically manage him and he was post to follow-up with his heel lining paster outpatient. He sees Dr. Chamorro from [facility]. He made an appointment and has an appointment next week. He continues to have intermittent chest pain. He was at dialysis today and since he was having pain he felt uncomfortable giving him dialysis because of his recent history. Patient is on Coumadin for history of atrial fibrillation. 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 Colonization status Congestive heart failure (CHF) Coronary artery disease COVID CPAP (continuous positive airway pressure) dependence Delayed wound healing Depression Diabetes mellitus type 2 in obese Dialysis catheter clot or failure Diastolic CHF, acute Dietary restriction Dupuytrens contracture DVT (deep venous thrombosis) Edema of left lower leg due to peripheral venous insufficiency End stage renal disease Equinus contracture of left ankle ESRD (end stage renal disease) on dialysis ESRD (end stage renal disease) on dialysis Former smoker Gastric reflux Hammer toe of left foot Hemodialysis patient High cholesterol History of DVT of lower extremity History of edema History of IBS History of pain when walking History of renal disease History of stress test Hx of echocardiogram Hypertension Insulin dependent diabetes mellitus Loss of consciousness Loss of hearing Malnutrition Morbid obesity NSTEMI (non-ST elevated myocardial infarction) Other specified peripheral vascular diseases Pressure ulcer Problem with dialysis access Pulmonary hypertension Renal failure, chronic Shortness of breath on exertion Spitting suture Syncope Transfusion (red blood cell) associated hemochromatosis Trigger finger Type 2 diabetes mellitus Type 2 diabetes mellitus with diabetic polyneuropathy Ulcer of left lower extremity with fat layer exposed Wears glasses Home Medications ascorbic acid (vitamin C) 1,000 mg tablet (Vitamin C) 1,000 mg PO DAILY suppliment 12/02/16 [History Last Taken 01/05/22] buspirone 10 mg tablet 10 mg PO BID depression 12/02/16 [History Last Taken 01/05/22] dicyclomine 20 mg tablet 20 mg PO TID IBS 12/02/16 [History Last Taken 01/05/22] venlafaxine 150 mg capsule,extended release 24 hr (Effexor XR) 150 mg PO DAILY depression 12/02/16 [History Last Taken 01/05/22] simethicone 80 mg chewable tablet (Gas Relief (simethicone)) 80 mg PO TID PRN PRN Indigestion 03/06/21 [History Last Taken 01/05/22] calcium acetate(phosphat bind) 667 mg capsule 1,334 - 2,001 mg PO TIDCM supplement 03/07/21 [History Last Taken 01/05/22] warfarin 5 mg tablet 15 mg PO SHARP blood thinner 09/06/21 [History Last Taken 01/02/22] warfarin 6 mg tablet 6 mg PO MOTUWETHFRSA blood thinner 09/06/21 [History Last Taken 01/05/22] atorvastatin 80 mg tablet 80 mg PO DAILY cholesterol 12/23/21 [History Last Taken 01/05/22] cinnamon bark 500 mg capsule 500 mg PO DAILY supplement 12/23/21 [History Last Taken 01/05/22] gabapentin 600 mg tablet 600 mg PO BID nerve pain 12/23/21 [History Last Taken 01/05/22] insulin NPH isoph U-100 human 100 unit/mL (3 mL) subcutaneous pen (Novolin N Flexpen) 5 unit subcut BID dm 12/23/21 [History Last Taken 01/06/22] midodrine 10 mg tablet 10 mg PO TID bp 12/23/21 [History Last Taken 01/06/22] pyridoxine (vitamin B6) 50 mg tablet (Vitamin B-6) 50 mg PO DAILY 12/23/21 [History Last Taken 01/05/22] aspirin 81 mg tablet,delayed release 81 mg PO BREAKFAST #30 tabs 12/27/21 [Rx Last Taken 01/05/22] nitroglycerin 0.4 mg sublingual tablet 0.4 mg sublingual Q5M PRN chest pain #25 tabs 12/30/21 [Rx Last Taken 01/06/22] isosorbide mononitrate 30 mg tablet,extended release 24 hr 30 mg PO DAILY HEART 01/06/22 [History Last Taken 01/05/22] pantoprazole 40 mg tablet,delayed release 40 mg PO DAILY GERD 01/06/22 [History Last Taken 01/05/22] Allergy/AdvReac Type Severity Reaction Status Date / Time cephalexin Allergy Hives Verified 01/06/22 07:51 Penicillins Allergy Hives Verified 01/06/22 07:51 Family History Mother Diabetes Heart disease Hypertension Surgical History History of arteriovenostomy for renal dialysis (~07/2020) History of carpal tunnel surgery of left wrist History of carpal tunnel surgery of right wrist History of colonoscopy History of surgery History of tonsillectomy and adenoidectomy Social History housing: house Smoking Status: Former smoker alcohol intake: never ROS ROS ED Constitutional Constitutional ED: Denies chills or fever(s) Eyes Eyes: Denies change in vision ENT ENT ED: Denies rhinorrhea or sore throat Cardiovascular Cardiovascular: Reports as per HPI Respiratory/Chest Respiratory/Chest: Denies cough or dyspnea Gastrointestinal Gastrointestinal: Denies abdominal pain or constipation Genitourinary Genitourinary ED: Denies dysuria or hematuria Musculoskeletal Musculoskeletal: Denies arthralgias Integumentary Denies abscess or Abrasions Neurologic Neurologic: Denies headache(s) or paresthesias Psychiatric Psychiatric: Denies anxiety or depression EXAM Physical Exam Const Vital Signs: 01/06/22 07:47 01/06/22 08:30 01/06/22 09:18 Temperature 97.6 F L Temperature Source Temporal Pulse Rate 51 L 104 H Respiratory Rate 14 16 Respiratory Effort Normal Non-Labored Blood Pressure 165/72 H 162/80 H Blood Pressure Mean 103 107 Pulse Ox 100 99 Oxygen Delivery Method Room Air 01/06/22 10:10 Temperature Temperature Source Pulse Rate 111 H Respiratory Rate 14 Respiratory Effort Blood Pressure 144/89 H Blood Pressure Mean 107 Pulse Ox 96 Oxygen Delivery Method Room Air Positive well nourished and obese General Appearance ED: NAD Nutritional Appearance: obese HEENT Reports moist mucous membranes normocephalic and atraumatic Eyes PERRL and EOMs intact bilaterally Chest Wall inspection of chest normal and palpation of chest normal Resp normal respiratory effort Auscultation: Negative for rales, rhonchi or wheezes Cardio regular rate and regular rhythm GI normal to inspection, nondistended, normoactive bowel sounds Back/Spine no CVA tenderness Neuro oriented x3 and CN's II-XII intact bilaterally Sensorium / Orientation: awake and alert Motor Exam: strength 5/5 throughout Psych mental status grossly normal Skin no rashes or lesions noted Heart Score History: Highly Suspicious ECG: Normal Age: >/= 65 years Risk Factors: >/= 3 Risk Factors or History of CAD Troponin: </= Normal Limit Score: 6 MDM MDM MDM Narrative Medical decision making narrative: Patient presenting with chest pain. HEART score of 6. I reviewed the medical record and saw that the patient has proximal LAD with 30 to 40% stenosis, mid LAD 70% stenosis involving D1 ostial around 75%. Left circumflex was nonobstructive. He was RCA dominant with moderate diffuse obstruction proximal RCA around 3040%. Distal RCA had about 80% stenosis. Severe coronary atherosclerosis involving LAD. EKG was obtained and on my interpretation showed atrial fibrillation at ventricular rate of 95 bpm some depressions noted V3 through V6. There were no reciprocal changes consistent with STEMI. CBC showed mild leukocytosis with white blood cell count 12.5, hemoglobin stable at 9.4, platelets 251. Chest x-ray my interpretation shows no acute cardiopulmonary process and radiologist agree PT/INR normal therefore he is subtherapeutic. Dr. Charles felt that the patient needed transfer for definitive treatment due to his blockages. I spoke with Dr. Villa the intentional heel lining paster at [facility]. I discussed with him that his troponins were both normal but that I had a concern for ACS because of his recent catheterization and his continued chest pain. He recommended transfer to this facility however there is no current bed available. He recommended starting a heparin drip. Given this the patient will need to be boarded. I spoke with Dr. Slade regarding the admi ssion. I also spoke with the patient and and knowledges that he will not get definitive care here and that we are just boarding him until he can get a bed at [facility]. He is amenable to this. Impression: 1. Chest pain 2. Subtherapeutic INR Lab Data Attestation: I reviewed the patient's lab results. Labs: Laboratory Results - last 24 hr 01/06/22 01/06/22 01/06/22 08:30 08:30 08:30 WBC 12.5 H RBC 2.80 L Hgb 9.4 L Hct 28.1 L MCV 100.4 H MCH 33.6 H MCHC 33.5 RDW Std Deviation 49.1 H RDW Coeff of Kassandra 13.5 Plt Count 251 MPV 10.1 Immature Gran % (Auto) 0.400 Neut % (Auto) 73.2 H Lymph % (Auto) 13.9 L [place] % (Auto) 8.0 Eos % (Auto) 4.2 Baso % (Auto) 0.3 Absolute Neuts (auto) 9.2 H Absolute Lymphs (auto) 1.74 Nucleated RBC % 0 PT 14.1 INR 1.1 APTT Sodium 137 Potassium 4.1 Chloride 96 L Carbon Dioxide 29.0 Anion Gap 12 BUN 55 H Creatinine 9.68 H* Estim Creat Clear Calc 16.83 Est GFR (MDRD) Af Amer 7 L Est GFR (MDRD) Non-Af 6 L BUN/Creatinine Ratio 5.7 L Glucose 288 H Calcium 9.2 Troponin I High Sens 20 01/06/22 01/06/22 08:30 10:55 WBC RBC Hgb Hct MCV MCH MCHC RDW Std Deviation RDW Coeff of Kassandra Plt Count MPV Immature Gran % (Auto) Neut % (Auto) Lymph % (Auto) [place] % (Auto) Eos % (Auto) Baso % (Auto) Absolute Neuts (auto) Absolute Lymphs (auto) Nucleated RBC % PT INR APTT 28.6 Sodium Potassium Chloride Carbon Dioxide Anion Gap BUN Creatinine Estim Creat Clear Calc Est GFR (MDRD) Af Amer Est GFR (MDRD) Non-Af BUN/Creatinine Ratio Glucose Calcium Troponin I High Sens 21 Radiography Diagnostic Testing: Clinical Impression(s) from Imaging Studies Chest X-Ray 01/06/22 07:57 IMPRESSION: Mild degree of increased markings at the lung bases suggestive of early bibasilar infiltrates worse on the right side. Electronically Signed: Roby Wilkins MD at 8:58 EST , Discharge Plan Disposition Disposition: Acute Care Hospital [facility] Discharge Date/Time: 01/06/22 11:29
--- NOTE | 2022-01-06 12:25 | CON.PCM.CA_ITS ---
Assessment & Plan Assessment/Plan (1) Unstable angina: PLAN: Angiographic films reviewed as noted above. Heavily calcified triple-vessel disease. 80 to 90% proximal mid LAD, 90% proximal and mid left circumflex disease, diffusely diseased proximal to mid RCA with about 90% lesion distally. In my opinion, patient needs intervention to the LAD as well as to the RCA. With his heavily calcified vessels, rotational atherectomy would be recommended as a procedural tool. Unfortunately we cannot offer this at our facility because of no surgical backup. He has already been accepted by the [facility] and is awaiting a bed placement. Meanwhile continue aspirin. Nitrates/calcium channel blockers. Beta-blockers. (2) Coronary artery disease: PLAN: See #1 above. (3) Atrial fibrillation: PLAN: On warfarin. Hold warfarin in anticipation of coronary angiography/intervention. (4) Hypertension: PLAN: Beta-ashlee/nitrates/calcium channel blockers. (5) ESRD (end stage renal disease) on dialysis: PLAN: On hemodialysis. (6) Dyslipidemia: PLAN: On atorvastatin. (7) Obesity: PLAN: Lose weight HPI Consult Data Date of Consult: 01/06/22 HPI Narrative Reason for Consultation: Chest pain HPI Narrative: MAREK RAMSAY has history of atrial fibrillation, end-stage renal disease on hemodialysis, diabetes mellitus and dyslipidemia. He was admitted to the hospital earlier this month with non-ST elevation myocardial infarction. Coronary angiography was performed. I reviewed the angiographic films myself. He appears to have severe triple-vessel disease. He has about an 80 to 90% lesion in the proximal mid left anterior descending artery just after the takeoff of the first diagonal branch, 80 to 90% disease of the proximal and mid left circumflex artery. The RCA is diffusely diseased from the proximal to distal part. The most severe lesion is noted to be distally which is about 90 to 95%. All vessels are heavily calcified. Patient was started on medical therapy and advised to follow with primary manager pricing for possible percutaneous intervention with rotational atherectomy. He has an appointment next week but continues to have intermittent chest discomfort. His last episode of chest discomfort was this morning. Relieved on its own. He gets chest discomfort at rest as well as with exertion. [facility] Medical History (Updated 01/06/22 @ 12:[address] Roly Charles MD) (HFpEF) heart failure with preserved ejection fraction Acute exacerbation of CHF (congestive heart failure) Ghetu-os-cqectnk kidney injury Anemia Anxiety Atrial fibrillation [facility] Cardiology follow-up encounter Chest pain CHF (congestive heart failure) Chronic kidney failure Chronic renal failure, 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 Colonization status Congestive heart failure (CHF) Coronary artery disease COVID CPAP (continuous positive airway pressure) dependence Delayed wound healing Depression Diabetes mellitus type 2 in obese Dialysis catheter clot or failure Diastolic CHF, acute Dietary restriction Dupuytrens contracture DVT (deep venous thrombosis) Edema of left lower leg due to peripheral venous insufficiency End stage renal disease Equinus contracture of left ankle ESRD (end stage renal disease) on dialysis ESRD (end stage renal disease) on dialysis Former smoker Gastric reflux Hammer toe of left foot Hemodialysis patient High cholesterol History of DVT of lower extremity History of edema History of IBS History of pain when walking History of renal disease History of stress test Hx of echocardiogram Hypertension Insulin dependent diabetes mellitus Loss of consciousness Loss of hearing Malnutrition Morbid obesity NSTEMI (non-ST elevated myocardial infarction) Other specified peripheral vascular diseases Pressure ulcer Problem with dialysis access Pulmonary hypertension Renal failure, chronic Shortness of breath on exertion Spitting suture Syncope Transfusion (red blood cell) associated hemochromatosis Trigger finger Type 2 diabetes mellitus Type 2 diabetes mellitus with diabetic polyneuropathy Ulcer of left lower extremity with fat layer exposed Wears glasses Home Medications ascorbic acid (vitamin C) 1,000 mg tablet (Vitamin C) 1,000 mg PO DAILY sharp ppliment 12/02/16 [History Last Taken 01/05/22] buspirone 10 mg tablet 10 mg PO BID depression 12/02/16 [History Last Taken 01/05/22] dicyclomine 20 mg tablet 20 mg PO TID IBS 12/02/16 [History Last Taken 01/05/22] venlafaxine 150 mg capsule,extended release 24 hr (Effexor XR) 150 mg PO DAILY depression 12/02/16 [History Last Taken 01/05/22] simethicone 80 mg chewable tablet (Gas Relief (simethicone)) 80 mg PO TID PRN PRN Indigestion 03/06/21 [History Last Taken 01/05/22] calcium acetate(phosphat bind) 667 mg capsule 1,334 - 2,001 mg PO TIDCM supplement 03/07/21 [History Last Taken 01/05/22] warfarin 5 mg tablet 15 mg PO SHARP blood thinner 09/06/21 [History Last Taken 01/02/22] warfarin 6 mg tablet 6 mg PO MOTUWETHFRSA blood thinner 09/06/21 [History Last Taken 01/05/22] atorvastatin 80 mg tablet 80 mg PO DAILY cholesterol 12/23/21 [History Last Taken 01/05/22] cinnamon bark 500 mg capsule 500 mg PO DAILY supplement 12/23/21 [History Last Taken 01/05/22] gabapentin 600 mg tablet 600 mg PO BID nerve pain 12/23/21 [History Last Taken 01/05/22] insulin NPH isoph U-100 human 100 unit/mL (3 mL) subcutaneous pen (Novolin N Flexpen) 5 unit subcut DAILY dm 12/23/21 [History Last Taken 01/06/22] midodrine 10 mg tablet 10 mg PO TID bp 12/23/21 [History Last Taken 01/06/22] pyridoxine (vitamin B6) 50 mg tablet (Vitamin B-6) 50 mg PO DAILY 12/23/21 [History Last Taken 01/05/22] aspirin 81 mg tablet,delayed release 81 mg PO BREAKFAST #30 tabs 12/27/21 [Rx Last Taken 01/05/22] nitroglycerin 0.4 mg sublingual tablet 0.4 mg sublingual Q5M PRN chest pain #25 tabs 12/30/21 [Rx Last Taken 01/06/22] insulin NPH isoph U-100 human 100 unit/mL (3 mL) subcutaneous pen (Novolin N Flexpen) 18 unit subcut QHS DM 01/06/22 [History Last Taken 01/05/22] isosorbide mononitrate 30 mg tablet,extended release 24 hr 30 mg PO DAILY HEART 01/06/22 [History Last Taken 01/05/22] pantoprazole 40 mg tablet,delayed release 40 mg PO DAILY GERD 01/06/22 [History Last Taken 01/05/22] Allergy/AdvReac Type Severity Reaction Status Date / Time cephalexin Allergy Hives Verified 01/06/22 07:51 Penicillins Allergy Hives Verified 01/06/22 07:51 Family History Mother Diabetes Heart disease Hypertension Surgical History History of arteriovenostomy for renal dialysis (~07/2020) History of carpal tunnel surgery of left wrist History of carpal tunnel surgery of right wrist History of colonoscopy History of surgery History of tonsillectomy and adenoidectomy Social History housing: house Smoking Status: Former smoker alcohol intake: never Physical Exam Narrative Pleasant gentleman. Morbidly obese. Heart sounds 1 and 2 are normal. Lungs clear to auscultation bilaterally. Abdomen obese. Alert oriented x3. No ankle edema. Risk Stratification Risk Stratification Applicable: No Objective Data Vital Signs: Vital Signs Temp Pulse Resp BP Pulse Ox O2 Del Method 97.5 F L 78 18 157/89 H 98 Room Air 01/06/22 11:42 01/06/22 11:42 01/06/22 11:42 01/06/22 11:42 01/06/22 11:42 01/06/22 11:54 Oxygen Delivery Method Room Air Weight: 318 lb Body Mass Index (BMI) 48.3 Lab / Micro Data Result Diagrams: 01/06/22 08:30 01/06/22 08:30 Labs: Laboratory Results - last 24 hr 01/06/22 08:30: WBC 12.5 H, RBC 2.80 L, Hgb 9.4 L, Hct 28.1 L, MCV 100.4 H, MCH 33.6 H, MCHC 33.5, RDW Std Deviation 49.1 H, RDW Coeff of Kassandra 13.5, Plt Count 251, MPV 10.1, Immature Gran % (Auto) 0.400, Neut % (Auto) 73.2 H, Lymph % (Auto) 13.9 L, [place] % (Auto) 8.0, Eos % (Auto) 4.2, Baso % (Auto) 0.3, Absolute Neuts (auto) 9.2 H, Absolute Lymphs (auto) 1.74, Nucleated RBC % 0 01/06/22 08:30: PT 14.1, INR 1.1 01/06/22 08:30: Sodium 137, Potassium 4.1, Chloride 96 L, Carbon Dioxide 29.0, Anion Gap 12, BUN 55 H, Creatinine 9.68 H*, Estim Creat Clear Calc 16.83, Est GFR (MDRD) Af Amer 7 L, Est GFR (MDRD) Non-Af 6 L, BUN/Creatinine Ratio 5.7 L, Glucose 288 H, Calcium 9.2, Troponin I High Sens 20 01/06/22 08:30: APTT 28.6 01/06/22 10:55: Troponin I High Sens 21 Cardiology Labs/Tests 01/06/22 08:30: WBC 12.5 H, RBC 2.80 L, Hgb 9.4 L, Hct 28.1 L, MCV 100.4 H, MCH 33.6 H, MCHC 33.5, Plt Count 251, MPV 10.1, Immature Gran % (Auto) 0.400, Neut % (Auto) 73.2 H, Lymph % (Auto) 13.9 L, [place] % (Auto) 8.0, Eos % (Auto) 4.2, Baso % (Auto) 0.3, Absolute Neuts (auto) 9.2 H, Nucleated RBC % 0 01/06/22 08:30: PT 14.1, INR 1.1 01/06/22 08:30: Sodium 137, Potassium 4.1, Chloride 96 L, Carbon Dioxide 29.0, Anion Gap 12, BUN 55 H, Creatinine 9.68 H*, Est GFR (MDRD) Af Amer 7 L, Est GFR (MDRD) Non-Af 6 L, BUN/Creatinine Ratio 5.7 L, Glucose 288 H, Calcium 9.2 01/06/22 08:30: APTT 28.6 Rhythm: EKG: ECHO: Stress Test: Cardiac Cath: PCI: CT Surgery: Holter monitor: EPS: PPM: CXR: Chest CT Scan: Radiography Diagnostic Testing: Radiology Impression Chest X-Ray 01/06/22 07:57 IMPRESSION: Mild degree of increased markings at the lung bases suggestive of early bibasilar infiltrates worse on the right side. Electronically Signed: Roby Wilkins MD at 8:58 EST ,
[2022-01-06] MEDS: Metoprolol Tartrate 25 MG Tablet 12.5 MG PO ×2 (13:46→21:18)
[2022-01-06] MEDS: Clopidogrel Bisulfate 75 MG Tablet PO (13:46)
[2022-01-06] MEDS: Nitroglycerin Oint 1 INCH PACKET TD ×2 (13:46→21:16)
--- NOTE | 2022-01-06 14:48 | CHAPLAIN ---
Type of Pastoral Visit _x__ Initial Visit ___ Follow-up Visit ___ On-call Visit ___ General Patient Visit ___ Spiritual Assessment ___ Family Conference ___ Bereavement ___ Rapid Response ___ Code Blue ___ Other (describe below) Pastoral Care Referral From _x__ Patient ___ Family ___ Nurse ___ Physician ___ Chicken Raiser ___ Administrative Assistant Office Manager ___ Other (describe below) Sacrament/Intervention _x__ Active listening ___ Anointing ___ Druze ___ Bereavement ___ Communion _x__ Avis exploration ___ _x__ Life review _x__ Prayer ___ Reconciliation ___ Sacrament of Sick ___ Supportive presence ___ Wedding ___ Other (describe below) Pastoral Comments patient gives details about his health and that he is waiting to be transferred to [facility] where his heart doctor can evaluate him; pt has had heart issues in the past; pt does not have family in the area; pt welcomes support through presence and prayer; pt gives some life review and his search for spiritual truth
[2022-01-06 15:12] LABS: Troponin-I HS 36 pg/mL (3.0-78.0)
[2022-01-06] MEDS: Insulin Lispro 100 UNIT/ML INSULN.PEN SC ×2 (16:41→21:19)
[2022-01-06] MEDS: Dicyclomine 10 MG Capsule 20 MG PO (16:44)
[2022-01-06 16:45] LABS: Bedside Glucose 225 mg/dL (74-106)
[2022-01-06] MEDS: Midodrine HCl 5 MG Tablet 10 MG PO (16:46)
[2022-01-06 18:10] LABS: Partial Thromboplast Time 67.6 Seconds (24.1-36.2)
[2022-01-06] MEDS: busPIRone 5 MG Tablet 10 MG PO (21:18)
[2022-01-06] MEDS: Gabapentin 600 MG Tablet PO (21:22)
[2022-01-06] MEDS: Insulin NPH Human 100 UNITS/ML PEN 18 UNITS SC (22:14)
[2022-01-07] VITALS (11 sets, daily range): BP systolic 106–151; BP diastolic 73–80; PULSE 76–87; RESP 16–18; TEMP 36.4–36.9; O2SAT 97–100
[2022-01-07 00:30] LABS: Partial Thromboplast Time 77.6 Seconds (24.1-36.2)
[2022-01-07] MEDS: HEPARIN/D5w 25,000 UNITS 25,000 UNITS/250 ML IV.SOLN. 18 UNITS CONT INF (01:09)
[2022-01-07 02:00] LABS: Bedside Glucose 206 mg/dL (74-106)
[2022-01-07] MEDS: Dicyclomine 10 MG Capsule 20 MG PO ×3 (06:18→17:02)
[2022-01-07] MEDS: Nitroglycerin Oint 1 INCH PACKET TD ×2 (06:18→14:55)
[2022-01-07 06:31] LABS: Absolute Neutrophil Count 7.8 X10^3/uL (2.0-7.7); Basophil# 0.05 X10^3/uL; Basophil% 0.4 % (0-1); Eosinophil# 0.54 X10^3/uL; Hematocrit 28.3 % (40-54); Hemoglobin 9.5 g/dL (13.0-16.5); Mean Corp Hgb Conc 33.6 g/dL (32-36); Mean Corpuscular Hgb 33.8 pg (27.0-32.0); Mean Corpuscular Volume 100.7 fL (80-94); Mean Platelet Vol. 10.2 fl (6.2-12.0); Monocyte# 0.87 X10^3/uL; Monocyte% 6.4 % (0-10); NRBC Flagged by Analyzer 0 % (0-5); Neutrophil # 7.84 X10^3/uL (2.7-7.7); Neutrophil % 57.8 % (47-70); Platelet Count 244 K/mm3 (150-450); RBC Distribution Width CV 13.8 % (11.6-14.6); RBC Distribution Width SD 49.9 fl (35.1-43.9); Red Blood Count 2.81 M/mm3 (4.6-6.2); White Blood Count 13.6 K/mm3 (4.4-11.0)
[2022-01-07 06:40] LABS: Bedside Glucose 136 mg/dL (74-106)
[2022-01-07 06:47] LABS: Partial Thromboplast Time 100.1 Seconds (24.1-36.2)
--- NOTE | 2022-01-07 07:36 | PCM.PN.HOSP ---
Subjective Subjective Patient seen still complains of chest pain. Transferred to [facility] pending Objective Data Objective Data Vital Signs: Vital Signs Temp Pulse Resp BP Pulse Ox O2 Del Method 98.0 F 76 18 106/73 100 Room Air 01/07/22 03:15 01/07/22 03:15 01/07/22 03:15 01/07/22 03:15 01/07/22 03:15 01/07/22 03:15 Oxygen Delivery Method Room Air Weight: 144.242 kg Body Mass Index (BMI) 48.3 Intake & Output: Intake and Output for Last 24 Hours 01/05/22 01/06/22 01/07/22 23:59 23:59 23:59 Intake Total 111.82 / 111.82 319.0 / 319.0 Output Total 0 / 0 Balance 111.82 / 111.82 319.0 / 319.0 Lab / Micro Data Result Diagrams: 01/07/22 06:00 01/07/22 06:00 Labs: Laboratory Results - last 24 hr 01/06/22 08:30: WBC 12.5 H, RBC 2.80 L, Hgb 9.4 L, Hct 28.1 L, MCV 100.4 H, MCH 33.6 H, MCHC 33.5, RDW Std Deviation 49.1 H, RDW Coeff of Kassandra 13.5, Plt Count 251, MPV 10.1, Immature Gran % (Auto) 0.400, Neut % (Auto) 73.2 H, Lymph % (Auto) 13.9 L, [place] % (Auto) 8.0, Eos % (Auto) 4.2, Baso % (Auto) 0.3, Absolute Neuts (auto) 9.2 H, Absolute Lymphs (auto) 1.74, Nucleated RBC % 0 01/06/22 08:30: PT 14.1, INR 1.1 01/06/22 08:30: Sodium 137, Potassium 4.1, Chloride 96 L, Carbon Dioxide 29.0, Anion Gap 12, BUN 55 H, Creatinine 9.68 H*, Estim Creat Clear Calc 16.83, Est GFR (MDRD) Af Amer 7 L, Est GFR (MDRD) Non-Af 6 L, BUN/Creatinine Ratio 5.7 L, Glucose 288 H, Calcium 9.2, Troponin I High Sens 20 01/06/22 08:30: APTT 28.6 01/06/22 10:55: Troponin I High Sens 21 01/06/22 14:34: Troponin I High Sens 36 01/06/22 16:18: POC Glucose 225 H 01/06/22 17:28: APTT 67.6 H 01/06/22 21:21: POC Glucose 206 H 01/06/22 23:51: APTT 77.6 H 01/07/22 06:00: WBC 13.6 H, RBC 2.81 L, Hgb 9.5 L, Hct 28.3 L, MCV 100.7 H, MCH 33.8 H, MCHC 33.6, RDW Std Deviation 49.9 H, RDW Coeff of Kassandra 13.8, Plt Count 244, MPV 10.2, Immature Gran % (Auto) 0.400, Neut % (Auto) 57.8, Lymph % (Auto) 31.0, [place] % (Auto) 6.4, Eos % (Auto) 4.0, Baso % (Auto) 0.4, Absolute Neuts (auto) 7.8 H, Absolute Lymphs (auto) 4.20, Nucleated RBC % 0 01/07/22 06:00: APTT 100.1 H* 01/07/22 06:20: POC Glucose 136 H Radiography Diagnostic Testing: Radiology Impression Chest X-Ray 01/06/22 07:57 IMPRESSION: Mild degree of increased markings at the lung bases suggestive of early bibasilar infiltrates worse on the right side. Electronically Signed: Roby Wilkins MD at 8:58 EST , Physical Exam Narrative GENERAL: cooperative HEENT: Atraumatic; normocephalic EYES; Anicteric, Normal Conjunctiva NECK; supple, normal thyroid, RESPIRATORY: Diminished to auscultation CARDIOVASCULAR: Regular S1 S2, GI: soft, normoactive bowel sounds, : No Renal angle tenderness; EXTREMITIES: No edema, no clubbing, MUSCULOSKELETAL: no muscle wasting NEURO: Awake; no lateralizing signs. SKIN: No Rash PSYCH; Flat affect Assessment & Plan Assessment/Plan (1) Chest pain: PLAN: Plan Patient is a 61-year-old gentleman with past medical history signal for end-stage renal disease with known CAD presented with chest pain 1. Chest pain consistent with unstable angina ? Patient started on treatment per protocol including beta-blockers statin therapy aspirin as well as heparin. Call was placed for patient to be transferred to [facility]. Patient has been accepted for transfer currently waiting for bed ? 01/07/2022; patient chest pain still persist transferred to [facility] pending. 2. Coronary artery disease -Patient underwent left heart catheterization on 12/26/2021. Found to have Severe coronary artery atherosclerosis involving the distal RCA large dominant vessel, calcification of the proximal LAD with bifurcational lesion of mid LAD and a large ostial diagonal.. Plans for patient to be transferred to [facility] for either high risk PCI versus CABG 3.? End-stage renal disease ?On dialysis on Tuesdays and Saturdays ? 01/07/2022 consult placed to nephrology for dialysis orders patient apparently missed dialysis the day prior 4.? Paroxysmal A. fib ? Rate controlled on systemic anticoagulation with Coumadin INR is therapeutic. Coumadin held patient started on heparin 5.? Anemia - Secondary to chronic disorder monitoring H&H and transfuse if patient becomes symptomatic or hemoglobin falls below? 7 6.? Diabetes mellitus type II -patient's oral hypoglycemics held. Placed on long acting insulin, Accu-Cheks a.c. and at bedtime and covered with sliding scale insulin 7.? History of previous DVT involving lower extremity ?Patient is on warfarin 8.? Class III obesity with BMI of 47.3 ?Weight loss advised 9.? Chronic congestive heart failure with preserved ejection fraction ? Stable, currently not in exacerbation 10.? Dyslipidemia -Patient is on statin therapy, continued at home dose 11.? Depression ? Patient is on Effexor did continue 12. DVT prophylaxis ? Patient is on systemic anticoagulation Charges/Coding Visit Charges Inpatient E&M: 66062 Subs Hosp L2
[2022-01-07 07:39] LABS: Anion Gap 12 (5-15); BUN 73 mg/dL (7-18); BUN/Creat Ratio 6.3 RATIO (10-20); Calcium,Total 8.9 mg/dL (8.5-10.1); Chloride 94 mmol/L (98-107); EST Glomerular Filtration Rate 5 mL/min (>60); Est Glom Filt Rate - Afr Amer 6 mL/min (>60); Estimated Creatinine Clearance 6.61 ml/min; Glucose 125 mg/dL (74-106); Sodium Level 135 mmol/L (136-145)
[2022-01-07] MEDS: Gabapentin 600 MG Tablet PO (09:00)
[2022-01-07] MEDS: Insulin NPH Human 100 UNITS/ML PEN SC (09:00)
[2022-01-07] MEDS: Metoprolol Tartrate 25 MG Tablet 12.5 MG PO ×2 (09:01→17:02)
[2022-01-07] MEDS: Pantoprazole Sodium 40 MG Tablet PO (09:01)
[2022-01-07] MEDS: busPIRone 5 MG Tablet 10 MG PO (09:01)
[2022-01-07] MEDS: Clopidogrel Bisulfate 75 MG Tablet PO (09:01)
[2022-01-07] MEDS: Aspirin E.C. 81 MG Tablet PO (09:01)
[2022-01-07] MEDS: Venlafaxine XR 150 MG Capsule PO (09:03)
--- NOTE | 2022-01-07 09:21 | NURSING ---
I spoke with Olga at [facility] she stated there are no beds available.
--- NOTE | 2022-01-07 09:38 | PCM.PN.CARD ---
Subjective Subjective Doing good. No chest pain. No complaints. Objective Data Vital Signs: Vital Signs Temp Pulse Resp BP Pulse Ox O2 Del Method 97.6 F L 87 16 132/78 H 98 Room Air 01/07/22 09:00 01/07/22 09:01 01/07/22 09:00 01/07/22 09:00 01/07/22 09:00 01/07/22 09:00 Oxygen Delivery Method Room Air Weight: 317 lb 15.987 oz Body Mass Index (BMI) 48.3 Intake & Output: Intake and Output for Last 24 Hours 01/05/22 01/06/22 01/07/22 23:59 23:59 23:59 Intake Total 111.82 / 111.82 319.0 / 319.0 Output Total 0 / 0 Balance 111.82 / 111.82 319.0 / 319.0 Lab / Micro Data Result Diagrams: 01/07/22 06:00 01/07/22 06:00 Labs: Laboratory Results - last 24 hr 01/06/22 08:30: APTT 28.6 01/06/22 10:55: Troponin I High Sens 21 01/06/22 14:34: Troponin I High Sens 36 01/06/22 16:18: POC Glucose 225 H 01/06/22 17:28: APTT 67.6 H 01/06/22 21:21: POC Glucose 206 H 01/06/22 23:51: APTT 77.6 H 01/07/22 06:00: WBC 13.6 H, RBC 2.81 L, Hgb 9.5 L, Hct 28.3 L, MCV 100.7 H, MCH 33.8 H, MCHC 33.6, RDW Std Deviation 49.9 H, RDW Coeff of Kassandra 13.8, Plt Count 244, MPV 10.2, Immature Gran % (Auto) 0.400, Neut % (Auto) 57.8, Lymph % (Auto) 31.0, [place] % (Auto) 6.4, Eos % (Auto) 4.0, Baso % (Auto) 0.4, Absolute Neuts (auto) 7.8 H, Absolute Lymphs (auto) 4.20, Nucleated RBC % 0 01/07/22 06:00: Sodium 135 L, Potassium 4.0, Chloride 94 L, Carbon Dioxide 29.0, Anion Gap 12, BUN 73 H, Creatinine 11.50 H*, Estim Creat Clear Calc 6.61, Est GFR (MDRD) Af Amer 6 L, Est GFR (MDRD) Non-Af 5 L, BUN/Creatinine Ratio 6.3 L, Glucose 125 H, Calcium 8.9 01/07/22 06:00: APTT 100.1 H* 01/07/22 06:20: POC Glucose 136 H Cardiology Labs/Tests 01/06/22 08:30: APTT 28.6 01/06/22 17:28: APTT 67.6 H 01/06/22 23:51: APTT 77.6 H 01/07/22 06:00: WBC 13.6 H, RBC 2.81 L, Hgb 9.5 L, Hct 28.3 L, MCV 100.7 H, MCH 33.8 H, MCHC 33.6, Plt Count 244, MPV 10.2, Immature Gran % (Auto) 0.400, Neut % (Auto) 57.8, Lymph % (Auto) 31.0, [place] % (Auto) 6.4, Eos % (Auto) 4.0, Baso % (Auto) 0.4, Absolute Neuts (auto) 7.8 H, Nucleated RBC % 0 01/07/22 06:00: Sodium 135 L, Potassium 4.0, Chloride 94 L, Carbon Dioxide 29.0, Anion Gap 12, BUN 73 H, Creatinine 11.50 H*, Est GFR (MDRD) Af Amer 6 L, Est GFR (MDRD) Non-Af 5 L, BUN/Creatinine Ratio 6.3 L, Glucose 125 H, Calcium 8.9 01/07/22 06:00: APTT 100.1 H* Rhythm: EKG: ECHO: Stress Test: Cardiac Cath: PCI: CT Surgery: Holter monitor: EPS: PPM: CXR: Chest CT Scan: Physical Exam Narrative Comfortable. Unlabored breathing. Heart rhythm irregularly irregular. Assessment & Plan Assessment/Plan (1) Unstable angina: PLAN: Angiographic films reviewed as noted above. Heavily calcified triple-vessel disease. 80 to 90% proximal mid LAD, 90% proximal and mid left circumflex disease, diffusely diseased proximal to mid RCA with about 90% lesion distally. In my opinion, patient needs intervention to the LAD as well as to the RCA. With his heavily calcified vessels, rotational atherectomy would be recommended as a procedural tool. Unfortunately we cannot offer this at our facility because of no surgical backup. He has already been accepted by the [facility] and is awaiting a bed placement. Meanwhile continue aspirin. Nitrates/calcium channel blockers. Beta-blockers. (2) Coronary artery disease: PLAN: See #1 above. (3) Atrial fibrillation: PLAN: On warfarin. Hold warfarin in anticipation of coronary angiography/intervention. (4) Hypertension: PLAN: Beta-ashlee/nitrates/calcium channel blockers. (5) ESRD (end stage renal disease) on dialysis: PLAN: On hemodialysis. (6) Dyslipidemia: PLAN: On atorvastatin. (7) Obesity: PLAN: Lose weight
[2022-01-07] MEDS: Insulin Lispro 100 UNIT/ML INSULN.PEN SC (11:53)
[2022-01-07 12:16] LABS: Bedside Glucose 239 mg/dL (74-106)
[2022-01-07 14:38] LABS: Partial Thromboplast Time 63.9 Seconds (24.1-36.2)
--- NOTE | 2022-01-07 15:22 | PN.RENAL_ITS ---
Subjective Subjective Pt with ESRD due to diabetes, returns back to the ER, first time on 12/30 second time on 01/06 for persistent, daily chest pain relieved with nitro. He was sent directly to the ER yesterday via squad from the dialysis center without dialysis treatment. He had an appt with his primary pediatric intensive physician next week in [place]. He was discharged from [facility] on 12/27 after hospitalization for NSTEMI with multiple vessel disease found on heart cath 12/24/21 requiring intervention. He is being dialyzed now for missed treatment yesterday. He was admitted to [facility] waiting on transfer to tertiary care center for cardiac intervention. Objective Data Objective Data Vital Signs: Vital Signs Temp Pulse Resp BP Pulse Ox O2 Del Method 98.2 F 82 16 128/74 H 97 Room Air 01/07/22 15:00 01/07/22 15:00 01/07/22 15:00 01/07/22 15:00 01/07/22 15:00 01/07/22 15:00 Oxygen Delivery Method Room Air Weight: 144.242 kg Body Mass Index (BMI) 48.3 Intake & Output: Intake and Output for Last 24 Hours 01/05/22 01/06/22 01/07/22 23:59 23:59 23:59 Intake Total 111.82 / 111.82 1339.0 / 1339.0 Output Total 0 / 0 Balance 111.82 / 111.82 1339.0 / 1339.0 Lab / Micro Data Result Diagrams: 01/07/22 06:00 01/07/22 06:00 Labs: Laboratory Results - last 24 hr 01/06/22 16:18: POC Glucose 225 H 01/06/22 17:28: APTT 67.6 H 01/06/22 21:21: POC Glucose 206 H 01/06/22 23:51: APTT 77.6 H 01/07/22 06:00: WBC 13.6 H, RBC 2.81 L, Hgb 9.5 L, Hct 28.3 L, MCV 100.7 H, MCH 33.8 H, MCHC 33.6, RDW Std Deviation 49.9 H, RDW Coeff of Kassandra 13.8, Plt Count 244, MPV 10.2, Immature Gran % (Auto) 0.400, Neut % (Auto) 57.8, Lymph % (Auto) 31.0, [place] % (Auto) 6.4, Eos % (Auto) 4.0, Baso % (Auto) 0.4, Absolute Neuts (auto) 7.8 H, Absolute Lymphs (auto) 4.20, Nucleated RBC % 0 01/07/22 06:00: Sodium 135 L, Potassium 4.0, Chloride 94 L, Carbon Dioxide 29.0, Anion Gap 12, BUN 73 H, Creatinine 11.50 H*, Estim Creat Clear Calc 6.61, Est GFR (MDRD) Af Amer 6 L, Est GFR (MDRD) Non-Af 5 L, BUN/Creatinine Ratio 6.3 L, Glucose 125 H, Calcium 8.9 01/07/22 06:00: APTT 100.1 H* 01/07/22 06:20: POC Glucose 136 H 01/07/22 11:52: POC Glucose 239 H 01/07/22 14:20: APTT 63.9 H Micro: Microbiology 01/07/22 13:07 Nasal Secretion SARS-CoV-2 Antigen (Rapid) - Final Assessment & Plan Assessment/Plan (1) ESRD (end stage renal disease) on dialysis: PLAN: dialysis today for missed treatment yesterday (2) Coronary artery disease: PLAN: s/p heart cath prior admit requiring intervention (3) Unstable angina: PLAN: transfer to tertiary care center for intervention. Cardiology following (4) Hypertension: PLAN: stable, stop midodrine (5) History of diabetes mellitus: (6) Obesity:
--- NOTE | 2022-01-07 16:26 | NURSING ---
Called report to Ramone LUNDY at [facility]
[2022-01-07] MEDS: HEPARIN/D5w 25,000 UNITS 25,000 UNITS/250 ML IV.SOLN. 16 UNITS CONT INF (17:01)
[2022-01-07 17:25] LABS: Bedside Glucose 127 mg/dL (74-106)
--- NOTE | 2022-01-07 18:03 | DIALYSIS ---
Hemodialysis tx completed x 4 hours without complications. Pt tolerated tx well, fluid removed 4,000ml using crit-line monitor to B-profile. Vitals stable throughout tx. Verbal report given to KAMRON Royal post tx
[2022-01-07 20:51] LABS: Partial Thromboplast Time 62.9 Seconds (24.1-36.2)
--- NOTE | 2022-01-08 12:42 | DS.PCM_ITS ---
Providers Date of Admission: 01/06/22 Date of Discharge: 01/08/22 Primary Care Physician: Dr. Yola Ng MD Consultations 01/06/22 11:36 Consult: Cardiology Routine Consulting Provider: Roly Charles Reason for Consult: Chest Pain EMERGENT Consult: No Notified: Yes Date Notified: 01/06/22 Time Notified: 11:09 Method of Notification: ED Physician Initiated 01/07/22 08:00 Consult: Nephrology Routine Consulting Provider: Lillian Acharya Reason for Consult: dialysis EMERGENT Consult: No Notified: Yes Date Notified: 01/07/22 Time Notified: 08:06 Method of Notification: Text Reason For Visit: CHEST PAIN Diagnosis Discharge Diagnosis (1) ESRD (end stage renal disease) on dialysis: Status: Acute Code(s): N18.6 - End stage renal disease; Z99.2 - Dependence on renal dialysis (2) Coronary artery disease: Status: Acute Code(s): I25.10 - Atherosclerotic heart disease of jack[place] coronary artery without angina pectoris (3) Unstable angina: Status: Acute Code(s): I20.0 - Unstable angina (4) Hypertension: Status: Chronic Code(s): I10 - Essential (primary) hypertension (5) History of diabetes mellitus: Status: Acute Code(s): Z86.39 - Personal history of other endocrine, nutritional and metabolic disease (6) Obesity: Status: Acute Code(s): E66.9 - Obesity, unspecified Plan Patient is a 61-year-old gentleman with past medical history signal for end- stage renal disease with known CAD presented with chest pain 1. Chest pain consistent with unstable angina ? Patient started on treatment per protocol including beta-blockers statin therapy aspirin as well as heparin. Call was placed for patient to be transf erred to [facility]. Patient has been accepted for transfer currently waiting for bed ? 01/07/2022; patient chest pain still persist transferred to [facility] pending. ? Patient was transferred to [facility] once bed became available 2. Coronary artery disease -Patient underwent left heart catheterization on 12/26/2021. Found to have Severe coronary artery atherosclerosis involving the distal RCA large dominant vessel, calcification of the proximal LAD with bifurcational lesion of mid LAD and a large ostial diagonal.. Plans for patient to be transferred to [facility] for either high risk PCI versus CABG 3.? End-stage renal disease ?On dialysis on Tuesdays and Saturdays ? 01/07/2022 consult placed to nephrology for dialysis orders patient apparently missed dialysis the day prior 4.? Paroxysmal A. fib ? Rate controlled on systemic anticoagulation with Coumadin INR is therapeutic. Coumadin held patient started on heparin 5.? Anemia - Secondary to chronic disorder monitoring H&H and transfuse if patient becomes symptomatic or hemoglobin falls below? 7 6.? Diabetes mellitus type II -patient's oral hypoglycemics held. Placed on long acting insulin, Accu-Cheks a.c. and at bedtime and covered with sliding scale insulin 7.? History of previous DVT involving lower extremity ?Patient is on warfarin 8.? Class III obesity with BMI of 47.3 ?Weight loss advised 9.? Chronic congestive heart failure with preserved ejection fraction ? Stable, currently not in exacerbation 10.? Dyslipidemia -Patient is on statin therapy, continued at home dose 11.? Depression ? Patient is on Effexor did continue 12. DVT prophylaxis ? Patient is on systemic anticoagulation Medications at Discharge Home Medications ascorbic acid (vitamin C) 1,000 mg tablet (Vitamin C) 1,000 mg PO DAILY suppliment 12/02/16 buspirone 10 mg tablet 10 mg PO BID depression 12/02/16 dicyclomine 20 mg tablet 20 mg PO TID IBS 12/02/16 venlafaxine 150 mg capsule,extended release 24 hr (Effexor XR) 150 mg PO DAILY depression 12/02/16 simethicone 80 mg chewable tablet (Gas Relief (simethicone)) 80 mg PO TID PRN PRN Indigestion 03/06/21 calcium acetate(phosphat bind) 667 mg capsule 1,334 - 2,001 mg PO TIDCM supplement 03/07/21 warfarin 5 mg tablet 15 mg PO SHARP blood thinner 09/06/21 warfarin 6 mg tablet 6 mg PO MOTUWETHFRSA blood thinner 09/06/21 atorvastatin 80 mg tablet 80 mg PO DAILY cholesterol 12/23/21 cinnamon bark 500 mg capsule 500 mg PO DAILY supplement 12/23/21 gabapentin 600 mg tablet 600 mg PO BID nerve pain 12/23/21 insulin NPH isoph U-100 human 100 unit/mL (3 mL) subcutaneous pen (Novolin N Fl expen) 5 unit subcut DAILY dm 12/23/21 midodrine 10 mg tablet 10 mg PO TID bp 12/23/21 pyridoxine (vitamin B6) 50 mg tablet (Vitamin B-6) 50 mg PO DAILY 12/23/21 aspirin 81 mg tablet,delayed release 81 mg PO BREAKFAST #30 tabs 12/27/21 nitroglycerin 0.4 mg sublingual tablet 0.4 mg sublingual Q5M PRN chest pain #25 tabs 12/30/21 insulin NPH isoph U-100 human 100 unit/mL (3 mL) subcutaneous pen (Novolin N Flexpen) 18 unit subcut QHS DM 01/06/22 isosorbide mononitrate 30 mg tablet,extended release 24 hr 30 mg PO DAILY HEART 01/06/22 pantoprazole 40 mg tablet,delayed release 40 mg PO DAILY GERD 01/06/22 Hospital Course Summary of Care Provided Minutes Spent on Discharge: 35 Physical Exam Narrative GENERAL: cooperative HEENT: Atraumatic; normocephalic EYES; Anicteric, Normal Conjunctiva NECK; supple, normal thyroid, RESPIRATORY: Diminished to auscultation CARDIOVASCULAR: Regular S1 S2, GI: soft, normoactive bowel sounds, : No Renal angle tenderness; EXTREMITIES: No edema, no clubbing, MUSCULOSKELETAL: no muscle wasting NEURO: Awake; no lateralizing signs. SKIN: No Rash PSYCH; Flat affect Weight / BMI Weight Weight: 144.242 kg Body Mass Index (BMI) 48.3 ABG / Lab / Microbiology Data Result Diagrams: 01/07/22 06:00 01/07/22 06:00 Laboratory: Laboratory Results - last 24 hr 01/07/22 14:20: APTT 63.9 H 01/07/22 17:00: POC Glucose 127 H 01/07/22 20:25: APTT 62.9 H Microbiology: Microbiology 01/07/22 13:07 Nasal Secretion SARS-CoV-2 Antigen (Rapid) - Final Meaningful Use Info Meaningful Use Diagnoses (Choose all that apply): None applicable Discharge Plan Admission Admit Date/Time: 01/06/22 11:04 Attending Provider: Karlos Man Primary Care Provider: Yola Ng Consulting Providers: Royl Charles ; Lillian Acharya Discharge Orders/Prescriptions Prescriptions: No Action ascorbic acid (vitamin C) [Vitamin C] 1,000 MG tablet 1,000 mg PO DAILY Label Comments: vitamin venlafaxine [Effexor XR] 150 MG capsule 150 mg PO DAILY Label Comments: depression dicyclomine 20 MG tablet 20 mg PO TID Label Comments: fatoumata buspirone 10 MG tablet 10 mg PO BID Label Comments: anxiety simethicone [Gas Relief (simethicone)] 80 MG tablet,chewable 80 mg PO TID PRN PRN (Reason: Indigestion) calcium acetate(phosphat bind) 667 mg capsule 1,334 - 2,001 mg PO TIDCM Label Comments: TAKE 1 CAPSULE DAILY warfarin 6 mg Tablet 6 mg PO MOTUWETHFRSA warfarin 5 MG tablet 15 mg PO SHARP atorvastatin 80 mg tablet 80 mg PO DAILY gabapentin 600 mg tablet 600 mg PO BID pyridoxine (vitamin B6) [Vitamin B-6] 50 mg Tablet 50 mg PO DAILY midodrine 10 mg tablet 10 mg PO TID Label Comments: TAKE 1 TABLET THREE TIMES DAILY Novolin N Flexpen 100 unit/mL (3 mL) insulin pen 5 unit SUBCUT DAILY Label Comments: INJECT 5UNITS IN THE MORNING AND 18 UNITS SUBCUTANEOUSLY AT BEDTIME Rx Instructions: INJECT 5UNITS IN THE MORNING AND 18 UNITS SUBCUTANEOUSLY AT BEDTIME cinnamon bark 500 mg capsule 500 mg PO DAILY Label Comments: 1 capsule by mouth as directed aspirin 81 mg Tablet,Delayed Release (Dr/Ec) 81 mg PO BREAKFAST Qty: 30 1RF nitroglycerin 0.4 mg tablet, sublingual 0.4 mg sublingual Q5M PRN (Reason: chest pain) Qty: 25 0RF Rx Instructions: do not exceed 3 doses per episode isosorbide mononitrate 30 mg Tablet Extended Release 24 Hr 30 mg PO DAILY pantoprazole 40 mg tablet,delayed release (DR/EC) 40 mg PO DAILY Novolin N Flexpen 100 unit/mL (3 mL) insulin pen 18 unit SUBCUT QHS Label Comments: INJECT 4 UNITS IN THE MORNING AND 16 UNITS SUBCUTANEOUSLY AT BEDTIME Rx Instructions: INJECT 5UNITS IN THE MORNING AND 18 UNITS SUBCUTANEOUSLY AT BEDTIME Referrals / Follow Up: Yola Ng MD [Primary Care Provider] - Disposition Disposition (needs filled in before D/C Order can be placed): Acute Care Hospital Charges/Coding Visit Charges Inpatient E&M: 41425 Disch Hosp
--- NOTE | 2022-01-10 09:00 | CASEMGMT ---
TC from [facility] to pt. Pt had a recent readmission but has been DC. Navigator called to note any needs. Pt did not answer the call. The phone rang several times and went silent. No voicemail picked up.
== END 2022-01-07 20:52 | disposition short-term general hospital (02) | DRG 302 ==
LOC: ED 11:03 → PCU 11:12
PROVIDERS: Admitting Provider Internal Medicine; Emergency Provider Student in an Organized Health Care Education/Training Program; PCP Internal Medicine; Visit Provider Internal Medicine
DX: I25.110 Atherosclerotic heart disease of native coronary artery with unstable angina pectoris (principal); N18.6 End stage renal disease; I13.2 Hypertensive heart and chronic kidney disease with heart failure and with stage 5 chronic kidney disease, or end stage renal disease; I50.32 Chronic diastolic (congestive) heart failure; Z68.42 Body mass index [BMI] 45.0-49.9, adult; E11.22 Type 2 diabetes mellitus with diabetic chronic kidney disease; E11.42 Type 2 diabetes mellitus with diabetic polyneuropathy; E11.51 Type 2 diabetes mellitus with diabetic peripheral angiopathy without gangrene; E66.01 Morbid (severe) obesity due to excess calories; Z79.4 Long term (current) use of insulin; I48.0 Paroxysmal atrial fibrillation; Z99.2 Dependence on renal dialysis; E78.5 Hyperlipidemia, unspecified; I25.2 Old myocardial infarction; Z87.891 Personal history of nicotine dependence; Z79.01 Long term (current) use of 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; Z66 Do not resuscitate; Z79.82 Long term (current) use of aspirin; Z86.16 Personal history of COVID-19; Z86.39 Personal history of other endocrine, nutritional and metabolic disease; F32.A Depression, unspecified; Z86.718 Personal history of other venous thrombosis and embolism
CPT/HCPCS: 36415; 71045; 80048; 82962; 84484; 85025; 85610; 85730; 87426; 90937; 93005; 99251; 99285; A4216; G0257; G0463

== ENCOUNTER 2022-02-10 10:31 | Emergency (ER) | payer MEDICARE, SELFPAY ==
[2022-02-10 10:32] VITALS: BP 128/59; PULSE 74; RESP 20; TEMP 37.3; O2SAT 94; BMI 46.7
[2022-02-10 10:36] VITALS: BP 128/59; PULSE 74; RESP 20; TEMP 37.3; O2SAT 94
--- NOTE | 2022-02-10 11:51 | RAD_ITS ---
STUDY: X-RAY CHEST REASON FOR EXAM: Male, 61 years old. Chest pain/sob TECHNIQUE: Single AP portable view of the chest. COMPARISON: Comparison is made with prior study dated 01/06/2022. FINDINGS: Large left pleural effusion with atelectasis in the left lung. The right lung is clear. Sternal cerclage wires are present from a prior sternotomy. Metallic clip is seen in the region of the aortic valve. Normal mediastinum and sachi. Normal visualized pulmonary arteries. Normal visualized aortic arch and descending thoracic aorta. Normal visualized thoracic spine. Normal visualized ribs, clavicles, and shoulders. There is no demonstrated abnormality of the visualized soft tissue structures of the upper abdomen. RAD/Chest 1 View (Portable) IMPRESSION: Large left pleural effusion with underlying atelectasis of the left lung. The patient is status post aortic valve replacement. Electronically Signed: Roby Wilkins MD at 12:50 EST ,
--- NOTE | 2022-02-10 11:56 | ED.VIS.CHEST ---
HPI History of Present Illness Chief Complaint: Chest Other Informant: patient Onset/Context/Timing Onset: Weeks (1) Activity at onset: gradual and onset Timing: Intermittent (Only when I talk, which causes me to cough, which makes it worse too) Quality: Positive for Pain Location: Substernal (On the inside) Current Severity: Severe Maximum Severity: Severe Worsened By: - (Talking, coughing see above) Relieved By: Rest Associated Symptoms: Positive for Dyspnea (A little) and Cough; Negative for Nausea, Vomiting, Diaphoresis, Fever, Lightheadedness or Palpitations Narrative Narrative: Patient had CABG 3 weeks ago, he is at local alf for rehabilitation because he has been feeling very weak. He is a dialysis patient. In the past week he has been having chest discomfort when he talks. He states he really does not want to talk much because it makes his chest hurt a lot. If he is just breathing it does not hurt. If he coughs it does hurt, talking tends to make him cough, this pain in the cough of been there for maybe a week but getting worse. He states they did a chest x-ray at the alf yesterday and they saw a spot that they were concerned may be pneumonia. All of the available history is from the patient only. [facility] Medical History (HFpEF) heart failure with preserved ejection fraction Acute exacerbation of CHF (congestive heart failure) [id number] kidney injury Anemia Anxiety Atrial fibrillation [facility] Cardiology follow-up encounter Chest pain CHF (congestive heart failure) Chronic kidney failure Chronic renal failure, 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 Colonization status Congestive heart failure (CHF) Coronary artery disease COVID CPAP (continuous positive airway pressure) dependence Delayed wound healing Depression Diabetes mellitus type 2 in obese Dialysis catheter clot or failure Diastolic CHF, acute Dietary restriction Dupuytrens contracture DVT (deep venous thrombosis) Edema of left lower leg due to peripheral venous insufficiency End stage renal disease Equinus contracture of left ankle ESRD (end stage renal disease) on dialysis ESRD (end stage renal disease) on dialysis Former smoker Gastric reflux Hammer toe of left foot Hemodialysis patient High cholesterol History of DVT of lower extremity History of edema History of IBS History of pain when walking History of renal disease History of stress test Hx of echocardiogram Hypertension Insulin dependent diabetes mellitus Loss of consciousness Loss of hearing Malnutrition Morbid obesity NSTEMI (non-ST elevated myocardial infarction) Other specified peripheral vascular diseases Pressure ulcer Problem with dialysis access Pulmonary hypertension Renal failure, chronic Shortness of breath on exertion Spitting suture Syncope Transfusion (red blood cell) associated hemochromatosis Trigger finger Type 2 diabetes mellitus Type 2 diabetes mellitus with diabetic polyneuropathy Ulcer of left lower extremity with fat layer exposed Wears glasses Home Medications ascorbic acid (vitamin C) 1,000 mg tablet (Vitamin C) 1,000 mg PO DAILY suppliment 12/02/16 [History Last Taken 01/05/22] buspirone 10 mg tablet 10 mg PO BID depression 12/02/16 [History Last Taken 01/05/22] dicyclomine 20 mg tablet 20 mg PO TID IBS 12/02/16 [History Last Taken 01/05/22] venlafaxine 150 mg capsule,extended release 24 hr (Effexor XR) 150 mg PO DAILY depression 12/02/16 [History Last Taken 01/05/22] simethicone 80 mg chewable tablet (Gas Relief (simethicone)) 80 mg PO TID PRN PRN Indigestion 03/06/21 [History Last Taken 01/05/22] calcium acetate(phosphat bind) 667 mg capsule 1,334 - 2,001 mg PO TIDCM supplement 03/07/21 [History Last Taken 01/05/22] warfarin 6 mg tablet 7 mg PO DAILY blood thinner 09/06/21 [History Last Taken 01/05/22] atorvastatin 80 mg tablet 80 mg PO DAILY cholesterol 12/23/21 [History Last Taken 01/05/22] cinnamon bark 500 mg capsule 500 mg PO DAILY supplement 12/23/21 [History Last Taken 01/05/22] gabapentin 600 mg tablet 300 mg PO DAILY nerve pain 12/23/21 [History Last Taken 01/05/22] insulin NPH isoph U-100 human 100 unit/mL (3 mL) subcutaneous pen (Novolin N Flexpen) 5 unit subcut DAILY dm 12/23/21 [History Last Taken 01/06/22] midodrine 10 mg tablet 10 mg PO TID bp 12/23/21 [History Last Taken 01/06/22] pyridoxine (vitamin B6) 50 mg tablet (Vitamin B-6) 50 mg PO DAILY 12/23/21 [History Last Taken 01/05/22] aspirin 81 mg tablet,delayed release 81 mg PO BREAKFAST #30 tabs 12/27/21 [Rx Last Taken 01/05/22] nitroglycerin 0.4 mg sublingual tablet 0.4 mg sublingual Q5M PRN chest pain #25 tabs 12/30/21 [Rx Last Taken 01/06/22] insulin NPH isoph U-100 human 100 unit/mL (3 mL) subcutaneous pen (Novolin N Flexpen) 18 unit subcut QHS DM 01/06/22 [History Last Taken 01/05/22] isosorbide mononitrate 30 mg tablet,extended release 24 hr 30 mg PO DAILY HEART 01/06/22 [History Last Taken 01/05/22] pantoprazole 40 mg tablet,delayed release 40 mg PO DAILY GERD 01/06/22 [History Last Taken 01/05/22] amiodarone 200 mg tablet 200 mg PO DAILY 02/10/22 [History Last Taken Unknown] clopidogrel 75 mg tablet mg 02/10/22 [History Last Taken Unknown] levofloxacin 500 mg tablet 500 mg PO DAILY 02/10/22 [History Last Taken Unknown] Allergy/AdvReac Type Severity Reaction Status Date / Time cephalexin Allergy Hives Verified 01/06/22 07:51 Penicillins Allergy Hives Verified 01/06/22 07:51 Family History Mother Diabetes Heart disease Hypertension Surgical History History of arteriovenostomy for renal dialysis (~07/2020) History of carpal tunnel surgery of left wrist History of carpal tunnel surgery of right wrist History of colonoscopy History of surgery History of tonsillectomy and adenoidectomy Social History housing: house Smoking Status: Former smoker alcohol intake: never ROS ROS ED Constitutional Constitutional ED: Reports fatigue; Denies body ache(s), chills or fever(s) Eyes Eyes: Denies change in vision or diplopia ENT ENT ED: Denies rhinorrhea or sore throat Cardiovascular Cardiovascular: Reports chest pain; Denies orthopnea or palpitations Respiratory/Chest Respiratory/Chest: Reports cough and dyspnea; Denies orthopnea or sputum Gastrointestinal Gastrointestinal: Denies abdominal pain, diarrhea, nausea or vomiting Genitourinary Genitourinary ED: Denies dysuria or hematuria Musculoskeletal Musculoskeletal: Denies back pain, myalgias or neck pain Integumentary Denies abscess or rash Neurologic Neurologic: Denies headache(s), paresthesias or weakness Psychiatric Psychiatric: Denies anxiety or suicidal thoughts EXAM Physical Exam Const Vital Signs: 02/10/22 10:32 02/10/22 10:36 02/10/22 10:48 Temperature 99.2 F H 99.2 F H Temperature Source Oral Oral Pulse Rate 74 74 Respiratory Rate 20 H 20 H Respiratory Effort Normal Non-Labored Respiratory Pattern Normal Blood Pressure 128/59 H 128/59 H Blood Pressure Mean 82 82 Pulse Ox 94 94 Oxygen Delivery Method Nasal Cannula Nasal Cannula Oxygen Flow Rate (L/min) 2 02/10/22 12:45 02/10/22 14:00 02/10/22 14:00 Temperature 97.5 F L 97.5 F L Temperature Source Temporal Temporal Pulse Rate 69 64 64 Respiratory Rate 18 13 13 Respiratory Effort Respiratory Pattern Blood Pressure 110/76 123/103 H 123/105 H Blood Pressure Mean 87 109 111 Pulse Ox 93 97 97 Oxygen Delivery Method Nasal Cannula Nasal Cannula Nasal Cannula Oxygen Flow Rate (L/min) 2 2 2 Positive well nourished, well developed and obese General Appearance ED: well developed and NAD Nutritional Appearance: obese HEENT Reports moist mucous membranes normocephalic and atraumatic Eyes PERRL and EOMs intact bilaterally Neck full ROM and supple Chest Wall Chest Narrative: Scabbed healing sternotomy incision without dehiscence, bleeding or discharge, tenderness Resp normal respiratory effort Resp Narrative: Decreased breath sounds throughout the left side. Trachea midline. No respiratory distress or splinting with deep inspiration. Otherwise lungs clear. Cardio regular rate, regular rhythm and no murmurs GI non-tender and non-distended Auscultation: normoactive bowel sounds Palpation: soft Back/Spine no CVA tenderness General Back: other FROM Extremity normal to inspection General Extremety ED: Yes edema; Negative for pulses abnormal or tenderness General Extremity: edema bilateral lower extremity Details: moderate (With what appears to be chronic stasis dermatitis); Negative for pulses abnormal Neuro oriented x3, CN's II-XII intact bilaterally and no sensory deficits noted Sensorium / Orientation: awake and alert Motor Exam: strength 5/5 throughout Psych mental status grossly normal Skin no rashes or lesions noted and no wounds MDM MDM MDM Narrative Medical decision making narrative: Chest x-ray 1 view my interpretation shows a large left pleural effusion, which is probably causing his symptoms. Other notables are that his INR from yesterday was 4.5 as he is on warfarin apparently, it appears to be prophylactic because of atrial fibrillation, and his hemoglobin is 7.6 down from 8.0 about 3 days ago. He does not know who his surgeon was. I contacted Dottie Rodgers, apparently it was Dr. Pagan. I spoke with his nurse practitioner, our interventional is Dr. Wilkins, as well as Dr. Pagan. Patient is on aspirin, Plavix, and supratherapeutic on his INR at 4.5 yesterday. Interventional is not comfortable tapping him today, and they are not going to be available for the next 3 days, so the ER suggesting transfer would be most appropriate. I discussed with Dottie Rodgers and Dr. Pagan will accept the patient. Lab Data Attestation: I reviewed the patient's lab results. Labs: Laboratory Results - last 24 hr 02/10/22 02/10/22 12:05 12:05 WBC 8.2 RBC 2.42 L Hgb 7.6 L Hct 24.5 L MCV 101.2 H MCH 31.4 MCHC 31.0 L RDW Std Deviation 61.2 H RDW Coeff of Kassandra 16.5 H Plt Count 398 MPV 8.8 Immature Gran % (Auto) 0.500 Neut % (Auto) 72.0 H Lymph % (Auto) 11.4 L Hettinger % (Auto) 10.8 H Eos % (Auto) 4.7 Baso % (Auto) 0.6 Absolute Neuts (auto) 5.9 Absolute Lymphs (auto) 0.94 Nucleated RBC % 0 Sodium 134 L Potassium 4.0 Chloride 94 L Carbon Dioxide 33.0 H Anion Gap 7 BUN 32 H Creatinine 6.99 H Estim Creat Clear Calc 10.87 Est GFR (MDRD) Af Amer 10 L Est GFR (MDRD) Non-Af 9 L BUN/Creatinine Ratio 4.6 L Glucose 126 H Calcium 8.9 Troponin I High Sens 70 Radiography Diagnostic Testing: Clinical Impression(s) from Imaging Studies Chest X-Ray 02/10/22 11:51 IMPRESSION: Large left pleural effusion with underlying atelectasis of the left lung. The patient is status post aortic valve replacement. Electronically Signed: Roby Wilkins MD at 12:50 EST , Discharge Plan Triage Chief Complaint: Chest Other ED Provider: Jonathan Hall Dx/Rx/DC Orders Clinical Impression: Pleural effusion, left, Chest pain, Status post coronary artery bypass graft Prescriptions: No Action ascorbic acid (vitamin C) [Vitamin C] 1,000 MG tablet 1,000 mg PO DAILY Label Comments: vitamin venlafaxine [Effexor XR] 150 MG capsule 150 mg PO DAILY Label Comments: depression dicyclomine 20 MG tablet 20 mg PO TID Label Comments: fatoumata buspirone 10 MG tablet 10 mg PO BID Label Comments: anxiety simethicone [Gas Relief (simethicone)] 80 MG tablet,chewable 80 mg PO TID PRN PRN (Reason: Indigestion) calcium acetate(phosphat bind) 667 mg capsule 1,334 - 2,001 mg PO TIDCM Label Comments: TAKE 1 CAPSULE DAILY warfarin 6 mg Tablet 7 mg PO DAILY atorvastatin 80 mg tablet 80 mg PO DAILY gabapentin 600 mg tablet 300 mg PO DAILY pyridoxine (vitamin B6) [Vitamin B-6] 50 mg Tablet 50 mg PO DAILY midodrine 10 mg tablet 10 mg PO TID Label Comments: TAKE 1 TABLET THREE TIMES DAILY Novolin N Flexpen 100 unit/mL (3 mL) insulin pen 5 unit SUBCUT DAILY Label Comments: INJECT 5UNITS IN THE MORNING AND 18 UNITS SUBCUTANEOUSLY AT BEDTIME Rx Instructions: INJECT 5UNITS IN THE MORNING AND 18 UNITS SUBCUTANEOUSLY AT BEDTIME cinnamon bark 500 mg capsule 500 mg PO DAILY Label Comments: 1 capsule by mouth as directed aspirin 81 mg Tablet,Delayed Release (Dr/Ec) 81 mg PO BREAKFAST Qty: 30 1RF nitroglycerin 0.4 mg tablet, sublingual 0.4 mg sublingual Q5M PRN (Reason: chest pain) Qty: 25 0RF Rx Instructions: do not exceed 3 doses per episode isosorbide mononitrate 30 mg Tablet Extended Release 24 Hr 30 mg PO DAILY pantoprazole 40 mg tablet,delayed release (DR/EC) 40 mg PO DAILY Novolin N Flexpen 100 unit/mL (3 mL) insulin pen 18 unit SUBCUT QHS Label Comments: INJECT 4 UNITS IN THE MORNING AND 16 UNITS SUBCUTANEOUSLY AT BEDTIME Rx Instructions: INJECT 5UNITS IN THE MORNING AND 18 UNITS SUBCUTANEOUSLY AT BEDTIME amiodarone 200 mg Tablet 200 mg PO DAILY clopidogrel 75 mg tablet Label Comments: 1 tablet by mouth as directed levofloxacin [Levaquin] 500 mg Tablet 500 mg PO DAILY Primary Care Provider: Yola Ng Referrals: Yola Ng MD [Primary Care Provider] - Disposition Disposition: Acute Care Hospital Discharge Location: [facility]
[2022-02-10 12:13] LABS: Absolute Lymphocyte Count 0.94 X10^3/uL (0.83-4.51); Absolute Neutrophil Count 5.9 X10^3/uL (2.0-7.7); Basophil# 0.05 X10^3/uL; Basophil% 0.6 % (0-1); Eosinophil# 0.39 X10^3/uL; Eosinophils% 4.7 % (0-5); Hematocrit 24.5 % (40-54); Hemoglobin 7.6 g/dL (13.0-16.5); Lymphocyte # 0.94 X10^3/ul (0.83-4.51); Lymphocyte % 11.4 % (19-41); Mean Corpuscular Hgb 31.4 pg (27.0-32.0); Mean Corpuscular Volume 101.2 fL (80-94); Mean Platelet Vol. 8.8 fl (6.2-12.0); Monocyte# 0.89 X10^3/uL; Monocyte% 10.8 % (0-10); NRBC Flagged by Analyzer 0 % (0-5); Neutrophil # 5.91 X10^3/uL (2.7-7.7); Platelet Count 398 K/mm3 (150-450); RBC Distribution Width CV 16.5 % (11.6-14.6); RBC Distribution Width SD 61.2 fl (35.1-43.9); Red Blood Count 2.42 M/mm3 (4.6-6.2); White Blood Count 8.2 K/mm3 (4.4-11.0)
[2022-02-10 12:31] LABS: Anion Gap 7 (5-15); BUN 32 mg/dL (7-18); BUN/Creat Ratio 4.6 RATIO (10-20); Calcium,Total 8.9 mg/dL (8.5-10.1); Chloride 94 mmol/L (98-107); Creatinine, Serum 6.99 mg/dL (0.70-1.30); EST Glomerular Filtration Rate 9 mL/min (>60); Est Glom Filt Rate - Afr Amer 10 mL/min (>60); Estimated Creatinine Clearance 10.87 ml/min; Glucose 126 mg/dL (74-106); Sodium Level 134 mmol/L (136-145); Troponin-I HS 70 pg/mL (3.0-78.0)
[2022-02-10 12:45] VITALS: BP 110/76; PULSE 69; RESP 18; O2SAT 93
--- NOTE | 2022-02-10 12:48 | NURSING ---
1230-xray in to do film and came and got rn and reported a 15sec episode when sat pt up where eyes rolled back and had shaking of both arms kind of held out and that when was over that was unable to remember what happened. dr. gutiérrez. pt with no hx of any seizures in past and was reported at [facility] upon report this am
[2022-02-10] MEDS: Morphine 4 MG/ML Syringe IV (13:11)
[2022-02-10] MEDS: Ondansetron 4 MG/2 ML Vial IV (13:12)
[2022-02-10 14:00] VITALS: BP 123/103; BP 123/105; PULSE 64; RESP 13; TEMP 36.4; O2SAT 97
[2022-02-10 14:59] VITALS: BP 128/65; PULSE 71; RESP 16; TEMP 37; O2SAT 97
--- NOTE | 2022-02-10 15:28 | NURSING ---
[facility] ETA 5:30 PM
[2022-02-10 15:42] LABS: Prothrombin Time (Protime)PT. 40.5 SECONDS (11.7-14.9)
[2022-02-10 15:47] LABS: International Normalized Ratio 4.2
--- NOTE | 2022-02-10 17:19 | NURSING ---
6030-consent signed for pt transfer to [facility] [place] with no questions voiced. timmy neville called and notified of transfer
== END 2022-02-10 17:00 | disposition short-term general hospital (02) ==
PROVIDERS: Emergency Provider Emergency Medicine; PCP Internal Medicine; Visit Provider Emergency Medicine
DX: J90 Pleural effusion, not elsewhere classified (principal); Z99.2 Dependence on renal dialysis; E11.22 Type 2 diabetes mellitus with diabetic chronic kidney disease; N18.6 End stage renal disease; Z79.4 Long term (current) use of insulin; R07.89 Other chest pain; I25.10 Atherosclerotic heart disease of native coronary artery without angina pectoris; I25.2 Old myocardial infarction; E66.9 Obesity, unspecified; E78.00 Pure hypercholesterolemia, unspecified; K21.9 Gastro-esophageal reflux disease without esophagitis; F32.A Depression, unspecified; F41.9 Anxiety disorder, unspecified; Z87.891 Personal history of nicotine dependence; Z86.16 Personal history of COVID-19; Z86.718 Personal history of other venous thrombosis and embolism; Z79.899 Other long term (current) drug therapy; Z95.1 Presence of aortocoronary bypass graft
CPT/HCPCS: 71045; 80048; 84484; 85025; 85610; 87428; 93005; 96374; 96375; 99285; A4216; J2405

== ENCOUNTER → 2022-03-07 | Outpatient (REF) | payer MEDICARE, SELFPAY ==
[2022-03-07 09:29] LABS: International Normalized Ratio 2.1; Prothrombin Time (Protime)PT. 23.6 SECONDS (11.7-14.9)
[2022-03-07 09:51] LABS: Vancomycin, Trough Level 15.1 ug/mL (5.0-15.0)
== END ==
LOC: OLS.SW 04:00
PROVIDERS: PCP Internal Medicine; Visit Provider Family Medicine
DX: Z79.01 Long term (current) use of 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 (principal); Z79.899 Other long term (current) drug therapy
CPT/HCPCS: 36415; 80202; 85610

== ENCOUNTER 2022-03-09 15:21 | Emergency (ER) | payer MEDICARE, SELFPAY ==
[2022-03-09 15:26] VITALS: BP 178/116; PULSE 71; RESP 18; TEMP 36.6; O2SAT 97; BMI 43.9
--- NOTE | 2022-03-09 16:01 | EKG12_ITS ---
Test Reason : WEAKNESS Blood Pressure : / mmHG Vent. Rate : 074 BPM Atrial Rate : 074 BPM P-R Int : 168 ms QRS Dur : 084 ms QT Int : 428 ms P-R-T Axes : 061 063 122 degrees QTc Int : 475 ms Normal sinus rhythm Nonspecific ST and T wave abnormality Prolonged QT Abnormal ECG Confirmed by OFELIA HARVEY, LIYS ([id number]), legal editor KARRI AMIN ([id number]) on 03/10/2022 1:39:35 PM Referred By: SAURABH Confirmed By:RICK GILBERT MD
[2022-03-09 16:22] LABS: Absolute Neutrophil Count 5.8 X10^3/uL (2.0-7.7); Basophil# 0.06 X10^3/uL; Basophil% 0.7 % (0-1); Eosinophil# 0.58 X10^3/uL; Eosinophils% 6.5 % (0-5); Hematocrit 29.3 % (40-54); Lymphocyte % 18.9 % (19-41); Mean Corp Hgb Conc 30.7 g/dL (32-36); Mean Corpuscular Hgb 30.9 pg (27.0-32.0); Mean Corpuscular Volume 100.7 fL (80-94); Mean Platelet Vol. 9.3 fl (6.2-12.0); Monocyte# 0.85 X10^3/uL; Monocyte% 9.5 % (0-10); NRBC Flagged by Analyzer 0 % (0-5); Neutrophil # 5.76 X10^3/uL (2.7-7.7); Platelet Count 287 K/mm3 (150-450); RBC Distribution Width CV 17.4 % (11.6-14.6); RBC Distribution Width SD 62.4 fl (35.1-43.9); Red Blood Count 2.91 M/mm3 (4.6-6.2)
--- NOTE | 2022-03-09 16:34 | RAD_ITS ---
STUDY: X-RAY CHEST REASON FOR EXAM: Male, 61 years old. Technologist Notes COMPLAINS OF WEAKNESS TODAY, LEGS KEEP BUCKLING. DISCHARGED FROM [facility] 2 DAYS AGO, WAS GETTING REHAB FROM COMPLICATIONS WITH QUADRUPLE BYPASS 01/10. Stroke TECHNIQUE: XR Chest 1 View COMPARISON: 02.10.22 FINDINGS: There is atherosclerotic calcification of the aortic arch with tortuosity. There are diffuse degenerative changes of the visualized thoracic spine. There is degenerative osteoarthritis of the bilateral shoulders. There is no demonstrated pleural abnormality. There is an atrial appendage device noted. There are multiple median sternotomy wires. There is borderline cardiomegaly. Normal mediastinum and sachi. Normal visualized pulmonary arteries. There is no demonstrated abnormality of the visualized soft tissue structures of the upper abdomen. RAD/Chest 1 View (Portable) IMPRESSION: There are no acute findings. Electronically Signed: Dexter Centeno MD at 16:52 EST ,
[2022-03-09 16:46] LABS: Anion Gap 12 (5-15); BUN 46 mg/dL (7-18); BUN/Creat Ratio 4.1 RATIO (10-20); Calcium,Total 9.4 mg/dL (8.5-10.1); Chloride 102 mmol/L (98-107); EST Glomerular Filtration Rate 5 mL/min (>60); Est Glom Filt Rate - Afr Amer 6 mL/min (>60); Estimated Creatinine Clearance 6.85 ml/min; Glucose 135 mg/dL (74-106); Sodium Level 142 mmol/L (136-145)
[2022-03-09 16:48] LABS: International Normalized Ratio 2.2; Partial Thromboplast Time 35.2 Seconds (24.1-36.2); Prothrombin Time (Protime)PT. 23.7 SECONDS (11.7-14.9)
--- NOTE | 2022-03-09 17:42 | EX.ED.DYSGE1 ---
HPI History of Present Illness Chief Complaint: Weakness Narrative Narrative: 61-year-old male past medical history of end-stage renal disease, gets dialysis Monday, , and Monday states he last had dialysis on Monday. He relates history that he had bypass surgery at the end of December after Thanksgiving in [facility]. He got transferred to [facility] for rehab but had a syncopal episode. They brought him back to the hospital and he was transferred back up to [facility]. He was recently released back to [facility] and was there for about a week and a half. He was doing well. He was released the day before yesterday. He relates history also that they found out that his blood pressure was dropping when he walked. However, he is now on a pill for hypertension. He became concerned because today when he was walking downstairs his legs became weak and his knees buckled underneath him. He did not fall or injure himself. He presents because of the generalized weakness and his legs buckling. [facility] Medical History (HFpEF) heart failure with preserved ejection fraction Acute exacerbation of CHF (congestive heart failure) [id number] kidney injury Anemia Anxiety Atrial fibrillation [facility] Cardiology follow-up encounter Chest pain CHF (congestive heart failure) Chronic kidney failure Chronic renal failure, 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 Colonization status Congestive heart failure (CHF) Coronary artery disease COVID CPAP (continuous positive airway pressure) dependence Delayed wound healing Depression Diabetes mellitus type 2 in obese Dialysis catheter clot or failure Diastolic CHF, acute Dietary restriction Dupuytrens contracture DVT (deep venous thrombosis) Edema of left lower leg due to peripheral venous insufficiency End stage renal disease Equinus contracture of left ankle ESRD (end stage renal disease) on dialysis ESRD (end stage renal disease) on dialysis Former smoker Gastric reflux Hammer toe of left foot Hemodialysis patient High cholesterol History of DVT of lower extremity History of edema History of IBS History of pain when walking History of renal disease History of stress test Hx of echocardiogram Hypertension Insulin dependent diabetes mellitus Loss of consciousness Loss of hearing Malnutrition Morbid obesity NSTEMI (non-ST elevated myocardial infarction) Other specified peripheral vascular diseases Pressure ulcer Problem with dialysis access Pulmonary hypertension Renal failure, chronic Shortness of breath on exertion Spitting suture Syncope Transfusion (red blood cell) associated hemochromatosis Trigger finger Type 2 diabetes mellitus Type 2 diabetes mellitus with diabetic polyneuropathy Ulcer of left lower extremity with fat layer exposed Wears glasses Home Medications ascorbic acid (vitamin C) 1,000 mg tablet (Vitamin C) 1,000 mg PO DAILY suppliment 12/02/16 [History Last Taken 01/05/22] buspirone 10 mg tablet 10 mg PO BID depression 12/02/16 [History Last Taken 01/05/22] dicyclomine 20 mg tablet 20 mg PO TID IBS 12/02/16 [History Last Taken 01/05/22] venlafaxine 150 mg capsule,extended release 24 hr (Effexor XR) 150 mg PO DAILY depression 12/02/16 [History Last Taken 01/05/22] simethicone 80 mg chewable tablet (Gas Relief (simethicone)) 80 mg PO TID PRN PRN Indigestion 03/06/21 [History Last Taken 01/05/22] calcium acetate(phosphat bind) 667 mg capsule 1,334 - 2,001 mg PO TIDCM supplement 03/07/21 [History Last Taken 01/05/22] warfarin 6 mg tablet 7 mg PO DAILY blood thinner 09/06/21 [History Last Taken 01/05/22] atorvastatin 80 mg tablet 80 mg PO DAILY cholesterol 12/23/21 [History Last Taken 01/05/22] cinnamon bark 500 mg capsule 500 mg PO DAILY supplement 12/23/21 [History Last Taken 01/05/22] gabapentin 600 mg tablet 300 mg PO DAILY nerve pain 12/23/21 [History Last Taken 01/05/22] insulin NPH isoph U-100 human 100 unit/mL (3 mL) subcutaneous pen (Novolin N FlexPen) 5 unit subcut DAILY dm 12/23/21 [History Last Taken 01/06/22] midodrine 10 mg tablet 10 mg PO TID bp 12/23/21 [History Last Taken 01/06/22] pyridoxine (vitamin B6) 50 mg tablet (Vitamin B-6) 50 mg PO DAILY 12/23/21 [History Last Taken 01/05/22] aspirin 81 mg tablet,delayed release 81 mg PO BREAKFAST #30 tabs 12/27/21 [Rx Last Taken 01/05/22] nitroglycerin 0.4 mg sublingual tablet 0.4 mg sublingual Q5M PRN chest pain #25 tabs 12/30/21 [Rx Last Taken 01/06/22] insulin NPH isoph U-100 human 100 unit/mL (3 mL) subcutaneous pen (Novolin N FlexPen) 18 unit subcut QHS DM 01/06/22 [History Last Taken 01/05/22] isosorbide mononitrate 30 mg tablet,extended release 24 hr 30 mg PO DAILY HEART 01/06/22 [History Last Taken 01/05/22] pantoprazole 40 mg tablet,delayed release 40 mg PO DAILY GERD 01/06/22 [History Last Taken 01/05/22] amiodarone 200 mg tablet 200 mg PO DAILY 02/10/22 [History Last Taken Unknown] clopidogrel 75 mg tablet mg 02/10/22 [History Last Taken Unknown] levofloxacin 500 mg tablet 500 mg PO DAILY 02/10/22 [History Last Taken Unknown] Allergy/AdvReac Type Severity Reaction Status Date / Time cephalexin Allergy Hives Verified 03/09/22 15:29 Penicillins Allergy Hives Verified 03/09/22 15:29 Family History Mother Diabetes Heart disease Hypertension Surgical History History of arteriovenostomy for renal dialysis (~07/2020) History of carpal tunnel surgery of left wrist History of carpal tunnel surgery of right wrist History of colonoscopy History of surgery History of tonsillectomy and adenoidectomy Social History housing: house Smoking Status: Former smoker alcohol intake: never ROS ROS ED ROS Narrative Constitutional: No fever, no chills. Generalized weakness. HEENT: No sore throat. No neck pain. No loss of vision. No rhinorrhea. Cardiovascular: No chest pain. No palpitations. No pedal edema. Respiratory: No cough, no shortness of breath. Abdominal: No abdominal pain. No nausea. No vomiting. Genitourinary: No dysuria. No hematuria. Musculoskeletal: No myalgias. No arthralgias. Legs weak, and buckled underneath him while going downstairs. Neurologic: No headaches. No dizziness. No lightheadedness. Skin: No rash. No change in color. Psychiatric: No depression. No anxiety. EXAM Physical Exam Narrative Exam Narrative: Afebrile. Vital signs noted. HEENT: Normocephalic. Atraumatic. PERRL, EOMI. Neck soft and supple. No point tenderness or step off. Cardiovascular: Regular rate and rhythm. No murmurs, rubs, or gallops appreciated. Wound VAC in place on area on chest. No surrounding erythema. Respiratory: No tachypnea. Lungs clear to auscultation bilaterally. Gastrointestinal: Abdomen soft, nontender, with normoactive bowel sounds. No rebound or guarding. Neurological: Awake. Alert. Nonfocal, nonlateralizing. Skin: No rash. Normal color. No pallor. Musculoskeletal: No pedal edema. Full range of motion extremities. Able to flex and extend bilateral knees. Good strength. Const Vital Signs: 03/09/22 15:26 03/09/22 17:30 03/09/22 17:53 Temperature 97.8 F Temperature Source Temporal Pulse Rate 71 Pulse Rate [Lying] 72 Pulse Rate [Sitting (for 1 minute prior to obtaining)] 79 Pulse Rate [Standing (for 1 minute prior to obtaining)] 81 Respiratory Rate 18 Blood Pressure 178/116 H Blood Pressure [Lying] 138/56 H Blood Pressure [Sitting (for 1 minute prior to obtaining)] 149/66 H Blood Pressure [Standing (for 1 minute prior to obtaining)] 116/59 L Blood Pressure Mean 136 Blood Pressure Mean [Lying] 83 Blood Pressure Mean [Sitting (for 1 minute prior to obtaining)] 93 Blood Pressure Mean [Standing (for 1 minute prior to obtaining)] 78 Pulse Ox 97 Oxygen Delivery Method Room Air Room Air 03/09/22 19:00 Temperature Temperature Source Pulse Rate 78 Pulse Rate [Lying] Pulse Rate [Sitting (for 1 minute prior to obtaining)] Pulse Rate [Standing (for 1 minute prior to obtaining)] Respiratory Rate 15 Blood Pressure 127/63 H Blood Pressure [Lying] Blood Pressure [Sitting (for 1 minute prior to obtaining)] Blood Pressure [Standing (for 1 minute prior to obtaining)] Blood Pressure Mean 84 Blood Pressure Mean [Lying] Blood Pressure Mean [Sitting (for 1 minute prior to obtaining)] Blood Pressure Mean [Standing (for 1 minute prior to obtaining)] Pulse Ox 97 Oxygen Delivery Method Room Air MDM MDM MDM Narrative Medical decision making narrative: RN ordered labs per protocol. He does not make urine very often so I do not feel urinalysis is indicated. Chest x-ray was obtained and interpreted by myself. I see no evidence of pneumonia or pneumothorax. I reviewed his laboratory work. CBC shows normal white count of 9.0, hemoglobin stable at 9.0, normal platelet count of 287. Coags are obtained and reviewed. INR is 2.2 consistent with his Coumadin use. Additionally, electrolyte panel is consistent with his end-stage renal disease with a creatinine of 11 and a BUN of 46. Potassium is normal at 4.0 with sodium normal at 142. Glucose appropriately elevated at 135 with a normal anion gap of 12. I am hesitant to give him a large fluid bolus currently for weakness because of his need for dialysis and he does not get it until tomorrow. I will obtain orthostatics. Regardless, I do feel that he would be able to be discharged safely home with follow-up. His orthostatics are negative. I interpreted his EKG which demonstrates normal sinus rhythm at 74 bpm without ectopy or acute ST changes. No STEMI. In discussion with the patient, he states he feels weak in the legs. I offered him observation to be placed back in a detention, but he states I just came from 1. He has an upcoming appointment with his primary care physician. Additionally, I do not feel that he meets any other observation criteria. He will go to dialysis tomorrow and continue his plan for outpatient care. Return instructions to the emergency department were reviewed. Disposition is discharged home in stable condition. Lab Data Attestation: I reviewed the patient's lab results. Labs: Laboratory Results - last 24 hr 03/09/22 03/09/22 03/09/22 16:15 16:15 16:15 WBC 9.0 RBC 2.91 L Hgb 9.0 L Hct 29.3 L MCV 100.7 H MCH 30.9 MCHC 30.7 L RDW Std Deviation 62.4 H RDW Coeff of Kassandra 17.4 H Plt Count 287 MPV 9.3 Immature Gran % (Auto) 0.400 Neut % (Auto) 64.0 Lymph % (Auto) 18.9 L Bullitt % (Auto) 9.5 Eos % (Auto) 6.5 H Baso % (Auto) 0.7 Absolute Neuts (auto) 5.8 Absolute Lymphs (auto) 1.70 Nucleated RBC % 0 PT 23.7 H INR 2.2 APTT 35.2 Sodium 142 Potassium 4.0 Chloride 102 Carbon Dioxide 28.0 Anion Gap 12 BUN 46 H Creatinine 11.10 H* Estim Creat Clear Calc 6.85 Est GFR (MDRD) Af Amer 6 L Est GFR (MDRD) Non-Af 5 L BUN/Creatinine Ratio 4.1 L Glucose 135 H Calcium 9.4 Radiography Diagnostic Testing: Clinical Impression(s) from Imaging Studies Chest X-Ray 03/09/22 16:34 IMPRESSION: There are no acute findings. Electronically Signed: Dexter Centeno MD at 16:52 EST , Discharge Plan Triage Chief Complaint: Weakness ED Provider: Shimon Prieto Dx/Rx/DC Orders Clinical Impression: ESRD (end stage renal disease) on dialysis, Weakness, Knee buckling Instructions: ED Weakness (Uncertain Cause) Prescriptions: No Action ascorbic acid (vitamin C) [Vitamin C] 1,000 MG tablet 1,000 mg PO DAILY Label Comments: vitamin venlafaxine [Effexor XR] 150 MG capsule 150 mg PO DAILY Label Comments: depression dicyclomine 20 MG tablet 20 mg PO TID Label Comments: fatoumata buspirone 10 MG tablet 10 mg PO BID Label Comments: anxiety simethicone [Gas Relief (simethicone)] 80 MG tablet,chewable 80 mg PO TID PRN PRN (Reason: Indigestion) calcium acetate(phosphat bind) 667 mg capsule 1,334 - 2,001 mg PO TIDCM Label Comments: TAKE 1 CAPSULE DAILY warfarin 6 mg Tablet 7 mg PO DAILY atorvastatin 80 mg tablet 80 mg PO DAILY gabapentin 600 mg tablet 300 mg PO DAILY pyridoxine (vitamin B6) [Vitamin B-6] 50 mg Tablet 50 mg PO DAILY midodrine 10 mg tablet 10 mg PO TID Label Comments: TAKE 1 TABLET THREE TIMES DAILY Novolin N FlexPen 100 unit/mL (3 mL) insulin pen 5 unit SUBCUT DAILY Label Comments: INJECT 5UNITS IN THE MORNING AND 18 UNITS SUBCUTANEOUSLY AT BEDTIME Rx Instructions: INJECT 5UNITS IN THE MORNING AND 18 UNITS SUBCUTANEOUSLY AT BEDTIME cinnamon bark 500 mg capsule 500 mg PO DAILY Label Comments: 1 capsule by mouth as directed aspirin 81 mg Tablet,Delayed Release (Dr/Ec) 81 mg PO BREAKFAST Qty: 30 1RF nitroglycerin 0.4 mg tablet, sublingual 0.4 mg sublingual Q5M PRN (Reason: chest pain) Qty: 25 0RF Rx Instructions: do not exceed 3 doses per episode isosorbide mononitrate 30 mg Tablet Extended Release 24 Hr 30 mg PO DAILY pantoprazole 40 mg tablet,delayed release (DR/EC) 40 mg PO DAILY Novolin N FlexPen 100 unit/mL (3 mL) insulin pen 18 unit SUBCUT QHS Label Comments: INJECT 4 UNITS IN THE MORNING AND 16 UNITS SUBCUTANEOUSLY AT BEDTIME Rx Instructions: INJECT 5UNITS IN THE MORNING AND 18 UNITS SUBCUTANEOUSLY AT BEDTIME amiodarone 200 mg Tablet 200 mg PO DAILY clopidogrel 75 mg tablet Label Comments: 1 tablet by mouth as directed levofloxacin [Levaquin] 500 mg Tablet 500 mg PO DAILY Primary Care Provider: Yola Ng Referrals: Yola Ng MD [Primary Care Provider] - As soon as possible Disposition Disposition: Home, Self Care
[2022-03-09 17:53] VITALS: BP 116/59; BP 138/56; BP 149/66; PULSE 72; PULSE 79; PULSE 81
[2022-03-09 19:00] VITALS: BP 127/63; PULSE 78; RESP 15; O2SAT 97
[2022-03-09 20:24] VITALS: BP 129/60; PULSE 80; RESP 15; O2SAT 93
== END 2022-03-09 20:25 | disposition home or self-care (01) ==
PROVIDERS: Emergency Provider Emergency Medicine; PCP Internal Medicine; Visit Provider Emergency Medicine
DX: I13.2 Hypertensive heart and chronic kidney disease with heart failure and with stage 5 chronic kidney disease, or end stage renal disease (principal); Z99.2 Dependence on renal dialysis; I50.32 Chronic diastolic (congestive) heart failure; E11.22 Type 2 diabetes mellitus with diabetic chronic kidney disease; E11.42 Type 2 diabetes mellitus with diabetic polyneuropathy; N18.6 End stage renal disease; E66.01 Morbid (severe) obesity due to excess calories; Z68.41 Body mass index [BMI] 40.0-44.9, adult; Z79.4 Long term (current) use of insulin; E78.00 Pure hypercholesterolemia, unspecified; I25.10 Atherosclerotic heart disease of native coronary artery without angina pectoris; I25.2 Old myocardial infarction; R53.1 Weakness; Z79.01 Long term (current) use of 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; Z79.02 Long term (current) use of antithrombotics/antiplatelets; Z79.82 Long term (current) use of aspirin; Z79.899 Other long term (current) drug therapy; Z86.16 Personal history of COVID-19; Z87.891 Personal history of nicotine dependence
CPT/HCPCS: 71045; 80048; 85025; 85610; 85730; 93005; 99285

== ENCOUNTER 2022-03-21 08:30 | Outpatient (RCR) | payer MEDICARE, SELFPAY ==
[2022-03-21 08:09] VITALS: BP 113/65; PULSE 80; TEMP 36.3; BMI 43.9
--- NOTE | 2022-03-21 11:18 | PCM.WC.HP ---
History of Present Illness Date of Service: 03/21/22 Chief Complaint: Left leg ulcer History of Wound: This 61-year-old male with multiple comorbidities presents to the wound healing center for an ulcer on his mid sternum after CABG 01/11. He states that he had an PR while receiving dialysis and was transferred to [facility] where he had bypass surgery. He was discharged to [facility] for rehab. He was then readmitted to [facility] for fluid on his lungs. He said that he is not sure when the incision dehiscence occurred. He states he is receiving an antibiotic on the days he has dialysis. He is unsure of the antibiotic but it is for 6 weeks. He was referred to us for wound VAC changes and wound care. Patient has an extensive history of CAD, CABG, T2D, ESRD - on dialysis T-TH-Mon, on Warfarin, CHF, HTN, Afib. He is a very poor historian. He is unsure of the name of his physicians. Will attempt to get records from [facility]. Patient denies fever, chills, nausea, vomiting or diarrhea. Progress of Wound: Mid sternal dehiscence that is now an ulcer with fat necrosis present that is dry and non viable. Fiona wound is stable. [facility] Medical History (Reviewed 03/21/22 @ 15:21 by Caroline Trotter PERSONAL VEHICLE ADVISOR, PERSONAL VEHICLE ADVISOR-C) (HFpEF) heart failure with preserved ejection fraction Acute exacerbation of CHF (congestive heart failure) Sqmvs-mc-cfnocth kidney injury Anemia Anxiety Atrial fibrillation [facility] Cardiology follow-up encounter Chest pain CHF (congestive heart failure) Chronic kidney failure Chronic renal failure, 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 Colonization status Congestive heart failure (CHF) Coronary artery disease COVID CPAP (continuous positive airway pressure) dependence Delayed wound healing Depression Diabetes mellitus type 2 in obese Dialysis catheter clot or failure Diastolic CHF, acute Dietary restriction Dupuytrens contracture DVT (deep venous thrombosis) Edema of left lower leg due to peripheral venous insufficiency End stage renal disease Equinus contracture of left ankle ESRD (end stage renal disease) on dialysis ESRD (end stage renal disease) on dialysis Former smoker Gastric reflux Hammer toe of left foot Hemodialysis patient High cholesterol History of DVT of lower extremity History of edema History of IBS History of pain when walking History of renal disease History of stress test Hx of echocardiogram Hypertension Insulin dependent diabetes mellitus Loss of consciousness Loss of hearing Malnutrition Morbid obesity NSTEMI (non-ST elevated myocardial infarction) Other specified peripheral vascular diseases Pressure ulcer Problem with dialysis access Pulmonary hypertension Renal failure, chronic Shortness of breath on exertion Spitting suture Syncope Transfusion (red blood cell) associated hemochromatosis Trigger finger Type 2 diabetes mellitus Type 2 diabetes mellitus with diabetic polyneuropathy Ulcer of left lower extremity with fat layer exposed Wears glasses Home Medications ascorbic acid (vitamin C) 1,000 mg tablet (Vitamin C) 1,000 mg PO DAILY suppliment 12/02/16 [History Last Taken 01/05/22] buspirone 10 mg tablet 10 mg PO BID depression 12/02/16 [History Last Taken 01/05/22] dicyclomine 20 mg tablet 20 mg PO TID IBS 12/02/16 [History Last Taken 01/05/22] venlafaxine 150 mg capsule,extended release 24 hr (Effexor XR) 150 mg PO DAILY depression 12/02/16 [History Last Taken 01/05/22] simethicone 80 mg chewable tablet (Gas Relief (simethicone)) 80 mg PO TID PRN PRN Indigestion 03/06/21 [History Last Taken 01/05/22] calcium acetate(phosphat bind) 667 mg capsule 1,334 - 2,001 mg PO TIDCM supplement 03/07/21 [History Last Taken 01/05/22] warfarin 6 mg tablet 7 mg PO DAILY blood thinner 09/06/21 [History Last Taken 01/05/22] atorvastatin 80 mg tablet 80 mg PO DAILY cholesterol 12/23/21 [History Last Taken 01/05/22] cinnamon bark 500 mg capsule 500 mg PO DAILY supplement 12/23/21 [History Last Taken 01/05/22] gabapentin 600 mg tablet 300 mg PO DAILY nerve pain 12/23/21 [History Last Taken 01/05/22] insulin NPH isoph U-100 human 100 unit/mL (3 mL) subcutaneous pen (Novolin N FlexPen) 5 unit subcut DAILY dm 12/23/21 [History Last Taken 01/06/22] midodrine 10 mg tablet 10 mg PO TID bp 12/23/21 [History Last Taken 01/06/22] pyridoxine (vitamin B6) 50 mg tablet (Vitamin B-6) 50 mg PO DAILY 12/23/21 [History Last Taken 01/05/22] aspirin 81 mg tablet,delayed release 81 mg PO BREAKFAST #30 tabs 12/27/21 [Rx Last Taken 01/05/22] nitroglycerin 0.4 mg sublingual tablet 0.4 mg sublingual Q5M PRN chest pain #25 tabs 12/30/21 [Rx Last Taken 01/06/22] insulin NPH isoph U-100 human 100 unit/mL (3 mL) subcutaneous pen (Novolin N FlexPen) 18 unit subcut QHS DM 01/06/22 [History Last Taken 01/05/22] isosorbide mononitrate 30 mg tablet,extended release 24 hr 30 mg PO DAILY HEART 01/06/22 [History Last Taken 01/05/22] pantoprazole 40 mg tablet,delayed release 40 mg PO DAILY GERD 01/06/22 [History Last Taken 01/05/22] amiodarone 200 mg tablet 200 mg PO DAILY 02/10/22 [History Last Taken Unknown] clopidogrel 75 mg tablet mg 02/10/22 [History Last Taken Unknown] levofloxacin 500 mg tablet 500 mg PO DAILY 02/10/22 [History Last Taken Unknown] Allergy/AdvReac Type Severity Reaction Status Date / Time cephalexin Allergy Hives Verified 03/09/22 15:29 Penicillins Allergy Hives Verified 03/09/22 15:29 Family History (Reviewed 03/21/22 @ 15:21 by Caroline Trotter PERSONAL VEHICLE ADVISOR, PERSONAL VEHICLE ADVISOR-C) Mother Diabetes Heart disease Hypertension Surgical History (Reviewed 03/21/22 @ 15:21 by Caroline Trotter PERSONAL VEHICLE ADVISOR, PERSONAL VEHICLE ADVISOR-C) History of arteriovenostomy for renal dialysis (~07/2020) History of carpal tunnel surgery of left wrist History of carpal tunnel surgery of right wrist History of colonoscopy History of surgery History of tonsillectomy and adenoidectomy Social History (Reviewed 03/21/22 @ 15:21 by Caroline Trotter PERSONAL VEHICLE ADVISOR, PERSONAL VEHICLE ADVISOR-C) housing: house Smoking Status: Former smoker alcohol intake: never ROS Constitutional Constitutional: Reports fatigue; Denies chills, fever(s) or frequent falls Eyes Eyes: Reports requires corrective lenses ENT HEENT: Reports abnormal hearing Cardiovascular Cardiovascular: Reports as per HPI Respiratory/Chest Respiratory/Chest: Denies cough or dyspnea Gastrointestinal Gastrointestinal: Reports none Genitourinary Genitourinary: Reports as per HPI Musculoskeletal Musculoskeletal: Reports as per HPI Integumentary Integumentary: Reports as per HPI and skin ulcer Neurologic Neurologic: Reports as per HPI Psychiatric Psychiatric: Reports none Endocrine Endocrinology: Reports none Vital Signs Vital Signs Vital Signs: 03/21/22 08:09 Temperature 97.4 F L Temperature Source Temporal Pulse Rate 80 Blood Pressure 113/65 Blood Pressure Mean 81 Blood Pressure Source Monitor Weight Weight: 289 lb Body Mass Index (BMI) 43.9 Physical Exam Const alert, oriented x3 and no apparent distress HEENT normocephalic Eyes General Eye: normal appearance of both eyes Chest Chest Narrative: Midsternal incision with ulcer present. Resp normal respiratory effort, normal air movement and clear to auscultation bilaterally Effort and Inspection: able to speak in complete sentences Cardio regular rate and regular rhythm GI soft to palpation and non-tender Extremity full ROM Skin Wound Narrative: Midsternal ulcer from incision dehiscence. Ulcer is large with yellow non viable fat tissue present. No bleeding present. Fiona wound stable. Neuro oriented x3 Sensorium / Orientation: awake Psych mental status grossly normal, thought process normal and cooperative Debridement Note Debridement Note Wound debrided: Midsternal chest ulcer Wound Grade/Stage: Unstagable Type of Debridement: Excisional debridement Anesthesia Used: 4% Lidocaine Solution Depth: in the subcutaneous layer Percentage of wound debrided: 100 Instrument Used: - (scissors and pickups) Tissue Removed: non viable tissue, fat necrosis and slough Severity: Fat Layer Exposed Amount of bleeding with debridement: Mild Bleeding Controlled with: Compression and gauze Patient tolerated procedure: Patient tolerated procedure well Debridement Free Text: Removed some of the non viable tissue/fat necrosis. Unable to view any healthy tissue due to the amount of non viable tissue present. It was not an aggressive debridement due to the location. Very minimal bleeding present. Post-Debridement Measurements and Additional Note: Post-Debridement Measurements/Treatment WC - Nurse 1 - General Ulcer Assessment Start: 03/17/22 15:15 Freq: Status: Active Protocol: ROSS Activity Type Activity Date Activity User E-sign Co-sign Detail Recorded Client Recorded Date Recorded By Document 03/17/22 15:15 [facility] [id number] 03/17/22 15:17 [facility] Document 03/21/22 08:09 [place] [id number] 03/21/22 08:28 [place] 03/17/22 03/21/22 15:15 08:09 WC - Today's Visit Information Type of service Nurse-only Initial Visit Visit Arrival Mode Ambulatory Ambulatory Transfer Assistance None Patient Identification Verified (Name & Yes Yes ) Patient Requires Transmission-Based No No Precautions Safety Precautions NA Height and Weight Height 5 ft 8 in Weight 289 lb Weight in Pounds 289.0 lbs Body Mass Index (BMI) 43.9 BMI Classification Obese BSA - Johnathan 2.39 Vital Signs Temperature (97.8 F-99.1 F) 97.4 F L Temperature Source Temporal Pulse Rate (60-100) 80 Pulse Location Monitor Blood Pressure (90/60-120/80) 113/65 Blood Pressure Mean 81 Source Monitor History Since Last Visit- (Skip if this is Patient's initial visit) Left Footwear Regular Shoe Regular Shoe Right Footwear Regular Shoe Regular Shoe Pain Scale: 0-10 Numeric Is Patient Pain Free? Yes Yes WC - Nurse 1 - General Ulcer Measurement Start: 03/17/22 15:15 Freq: Status: Active Protocol: Activity Type Activity Date Activity User E-sign Co-sign Detail Recorded Client Recorded Date Recorded By Document 03/21/22 08:09 [place] [id number] 03/21/22 08:28 [place] 03/21/22 08:09 Wound Center Nurse 1 #5- STERNUM -Combined with other wound No -Current Size (cm) - Length 9 -Current Size (cm) - Width 3.6 -Current Size (cm) - Depth 0.6 -Total Square Cm 32.4 -Date of Last Picture (Recall this 03/21/22 field) -Photo Taken Yes -Tunneling No -Undermining/Tunneling No -Circular Undermining No -Change in Wound Grade/Stage No -Exudate Amt Medium -Exudate Type Serosanguineous -Wound Margin Distinct, Outline Attached -Granulation Amt None Present (0 %) -Slough/Fibrin Yes -Necrosis Amt Small (1-33%) -Necrotic Tissue Type Adherent Slough -Structure Exposed Fat Layer Exposed -Texture (Fiona-wound Skin Appearance) Assessed, Scarring -Moisture (Fiona-wound Skin Appearance) No Abnormality, Assessed -Color (Fiona-wound Skin Appearance) No Abnormality, Assessed -Temperature (Fiona-wound Skin No Abnormality Appearance) (Pt Warm) -Tenderness on Palpation (Fiona-wound No Skin Appearance) -Ulcer Cleansing Soap and Water -Foul Odor after Cleansing No -Anesthetic Used 4% Lidocaine Solution ARABELLA - Nurse 2 - General Ulcer CM Notes Start: 03/17/22 15:15 Freq: Status: Active Protocol: Activity Type Activity Date Activity User E-sign Co-sign Detail Recorded Client Recorded Date Recorded By Document 03/21/22 09:06 [id number] 03/21/22 09:14 REID 03/21/22 09:06 Wound Center Nurse 2 -Time 09:06 -Correct Patient Yes -Correct Side, Site, Position Yes -Correct Procedure Yes -Procedure Performed Yes -Type of Procedure Debridement -Clinical Debridement Subcutaneous -Tissue Removed Subcutaneous -Post Debridement (cm) - Length 8.5 -Post Debridement (cm) - Width 4.0 -Post Debridement (cm) - Depth 2.5 -Total Square (Post) (cm) 34.00 -Area of Debridement (cm) - Length 8.5 -Area of Debridement (cm) - Width 4.0 -Total Square (Area) (cm) 34.00 -Tunneling No -Undermining/Tunneling No -Circular Undermining No -Wound/Ulcer Outcome Not Healed -Ulcer Cleansing Rinsed/ Irrigated with Saline -Foul Odor after Cleansing No -Bioengineered Tissue No -Bleeding Controlled with Pressure -Treatment Response Procedure Tolerated Well -Offloading No -Debridement - Subq, 1st 20sq cm Yes -Debridement, SubQ, ea addt'l 20sq cm 1 or part thereof Pain Scale: 0-10 Numeric Is Patient Pain Free? Yes - Nurse 3 - General Ulcer D/C NN Start: 03/17/22 15:15 Freq: Status: Active Protocol: Activity Type Activity Date Activity User E-sign Co-sign Detail Recorded Client Recorded Date Recorded By Document 03/17/22 15:15 [facility] [id number] 03/17/22 15:17 [facility] Document 03/21/22 09:22 DL [id number] 03/21/22 09:23 DL 03/17/22 03/21/22 15:15 09:22 Pain Scale: 0-10 Numeric Is Patient Pain Free? Yes Yes Wound Care Center Nurse 3 #5- STERNUM -Ulcer Cleansing Soap and Water Rinsed/ Irrigated with Saline -Foul Odor after Cleansing No No -Negative Pressure Wound Therapy Start Continue -Setting (mmHg) 125 150 -Negative Pressure is Continuous Continuous -NPWT Application Charge NPWT </= 50 sq NPWT </= 50 sq cm ($) cm ($) Treatment Response Procedure Procedure Tolerated Well Tolerated Well WC - Visit Discharge Discharge Condition Stable Stable Ambulatory Status Ambulatory Ambulatory Transportation Private Auto Private Auto Notes: APPLIED PER CM INSTRUCTION Charges/Coding Visit Charges Office Visits / Consults: 06170 OV L4 Est (25 modifier) Procedures Integumentary 111xxx-113xx: 09934 Ingrid subq tissue 20 sq cm/< Add On Codes: 70798 Ingrid subq tissue add-on (x1) 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: CODE(S): L98.492 - Non-pressure chronic ulcer of skin of other sites with fat layer exposed (2) Type 2 diabetes mellitus: CODE(S): E11.9 - Type 2 diabetes mellitus without complications (3) History of coronary artery bypass graft: CODE(S): Z95.1 - Presence of aortocoronary bypass graft (4) ESRD (end stage renal disease) on dialysis: CODE(S): N18.6 - End stage renal disease; Z99.2 - Dependence on renal dialysis (5) Hypertension: CODE(S): I10 - Essential (primary) hypertension PLAN: Plan Patient evaluated at the wound healing center. He is a very poor historian. He is unsure which cardiothoracic surgeon performed his surgery in 12/2021. He knows he is seeing their nurse practitioner this Monday03/23/22. Called the cardiothoracic surgeons' office at [phone] and left a message to have someone call me to discuss this patient. Phoned back later in the day and was informed they have 24 hours to return phone messages. My concerns is that the ulcer will not heal with the wound VAC with the amount of non viable tissue present. He is most likely going to need an operative debridement. Wound care - we will continue the wound VAC at 150 mmHg to be changed 3 times per week. He has a follow up on Monday with the surgeon's SURJIT. Will try to obtain records from [facility]. Encouraged patient to eat a high protein, low sodium, low carbohydrate diet. Continue dialysis as scheduled on . He is receiving antibiotics on dialysis days- he is unsure of the antibiotic but he has Vancomycin Trough level from 03/07/22. Reviewed labs that he has obtained at our facility. Discussed this case with my collaborative physician, Dr. Howell and he suggests referring patient back to [facility]. Follow up to see me in one week, unless his cardiothoracic surgeons decided to take wound care back over. Greater than35 minutes were spent with patient with evaluation, plan of care, discussing case with Dr. Howell, attempting to get in touch with [facility] office, reviewing previous labs and documenting.
== END 2022-03-22 23:59 | disposition home or self-care (01) ==
LOC: WC 08:30
PROVIDERS: PCP Internal Medicine; Visit Provider Nurse Practitioner Family
DX: T81.31XA Disruption of external operation (surgical) wound, not elsewhere classified, initial encounter (principal); L98.492 Non-pressure chronic ulcer of skin of other sites with fat layer exposed; Y83.2 Surgical operation with anastomosis, bypass or graft as the cause of abnormal reaction of the patient, or of later complication, without mention of misadventure at the time of the procedure; I13.2 Hypertensive heart and chronic kidney disease with heart failure and with stage 5 chronic kidney disease, or end stage renal disease; E11.51 Type 2 diabetes mellitus with diabetic peripheral angiopathy without gangrene; Z99.2 Dependence on renal dialysis; I50.32 Chronic diastolic (congestive) heart failure; E11.22 Type 2 diabetes mellitus with diabetic chronic kidney disease; E11.42 Type 2 diabetes mellitus with diabetic polyneuropathy; N18.6 End stage renal disease; E78.00 Pure hypercholesterolemia, unspecified; I48.91 Unspecified atrial fibrillation; I25.10 Atherosclerotic heart disease of native coronary artery without angina pectoris; Z79.4 Long term (current) use of insulin; Z79.01 Long term (current) use of 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; Z79.02 Long term (current) use of antithrombotics/antiplatelets; Z79.82 Long term (current) use of aspirin; Z79.899 Other long term (current) drug therapy; Z87.891 Personal history of nicotine dependence; Z95.1 Presence of aortocoronary bypass graft
CPT/HCPCS: 11042; 11045; 87070; 87075; 87077; 87186; 87205; 97605; 99214; G0463

== ENCOUNTER 2022-04-18 08:30 | Outpatient (RCR) | payer MEDICARE, SELFPAY ==
[2022-03-23 00:52] VITALS: BP 113/65; PULSE 80; TEMP 36.3; BMI 43.9
[2022-03-25 11:36] VITALS: BP 118/59; PULSE 84; RESP 16; TEMP 36.4; BMI 43.9
[2022-03-28 08:36] VITALS: BMI 43.9
[2022-03-30 12:51] VITALS: BP 130/74; PULSE 90; RESP 16; TEMP 36.5; BMI 43.9
[2022-04-01 08:25] VITALS: BP 123/80; PULSE 88; RESP 18; TEMP 36.1; BMI 43.9
[2022-04-04 09:47] VITALS: TEMP 36.2; BMI 43.9
[2022-04-06 13:08] VITALS: BP 128/70; PULSE 90; RESP 18; TEMP 36.8; BMI 43.9
[2022-04-08 11:58] VITALS: BP 114/70; PULSE 88; RESP 20; TEMP 36.6; BMI 43.9
[2022-04-13 11:31] VITALS: BP 162/71; PULSE 65; TEMP 36.3; BMI 43.9
[2022-04-15 10:49] VITALS: BP 143/85; PULSE 89; RESP 18; TEMP 36.1; BMI 43.9
[2022-04-18 08:27] VITALS: BP 156/85; PULSE 83; RESP 16; TEMP 36.2; BMI 43.9
== END 2022-04-19 23:59 | disposition home or self-care (01) ==
LOC: WC 08:30
PROVIDERS: PCP Internal Medicine; Visit Provider Nurse Practitioner Family
DX: L98.499 Non-pressure chronic ulcer of skin of other sites with unspecified severity
CPT/HCPCS: 97605

== ENCOUNTER 2022-05-20 14:00 | Outpatient (RCR) | payer MEDICARE, SELFPAY ==
[2022-04-20 00:31] VITALS: BP 156/85; PULSE 83; RESP 16; TEMP 36.2; BMI 43.9
[2022-04-20 13:47] VITALS: BP 148/65; PULSE 98; RESP 20; TEMP 36.6; BMI 43.9
[2022-04-22 13:19] VITALS: BP 188/83; PULSE 88; RESP 18; TEMP 36.2; BMI 43.9
[2022-04-25 08:30] VITALS: BP 120/53; PULSE 69; RESP 16; TEMP 35.7; BMI 43.9
[2022-04-27 13:36] VITALS: BP 131/69; PULSE 87; RESP 16; TEMP 36.8; BMI 43.9
[2022-04-29 11:20] VITALS: BP 140/71; PULSE 86; RESP 16; TEMP 36.1; BMI 43.9
--- NOTE | 2022-05-04 09:08 | WC ---
Donna Rodgers [place] [facility] [place]. Pt seen 05/02/22 by Cardiac, There are no changed to dressing orders, NPT/VAC is to be continued. Has F/U appt with [facility]/Cardiac again in 2-3 weeks.
[2022-05-04 12:59] VITALS: BP 161/61; PULSE 78; RESP 18; TEMP 36.2; BMI 43.9
[2022-05-06 12:25] VITALS: RESP 20; TEMP 36.3; BMI 43.9
[2022-05-09 08:28] VITALS: BP 111/43; PULSE 70; TEMP 35.8; BMI 43.9
[2022-05-09 14:40] LABS: Absolute Lymphocyte Count 1.69 X10^3/uL (0.83-4.51); Absolute Neutrophil Count 7.1 X10^3/uL (2.0-7.7); Basophil# 0.04 X10^3/uL; Basophil% 0.4 % (0-1); Eosinophil# 0.28 X10^3/uL; Eosinophils% 2.8 % (0-5); Hematocrit 33.9 % (40-54); Hemoglobin 10.7 g/dL (13.0-16.5); Lymphocyte # 1.69 X10^3/ul (0.83-4.51); Mean Corp Hgb Conc 31.6 g/dL (32-36); Mean Corpuscular Hgb 30.8 pg (27.0-32.0); Mean Corpuscular Volume 97.7 fL (80-94); Mean Platelet Vol. 9.7 fl (6.2-12.0); Monocyte# 0.83 X10^3/uL; Monocyte% 8.3 % (0-10); NRBC Flagged by Analyzer 0 % (0-5); Neutrophil # 7.08 X10^3/uL (2.7-7.7); Neutrophil % 71.1 % (47-70); Platelet Count 214 K/mm3 (150-450); RBC Distribution Width CV 15.6 % (11.6-14.6); RBC Distribution Width SD 55.6 fl (35.1-43.9); Red Blood Count 3.47 M/mm3 (4.6-6.2)
[2022-05-09 15:56] LABS: Anion Gap 14 (5-15); BUN 119 mg/dL (7-18); BUN/Creat Ratio 8.6 RATIO (10-20); Calcium,Total 8.7 mg/dL (8.5-10.1); Chloride 100 mmol/L (98-107); EST Glomerular Filtration Rate 4 mL/min (>60); Est Glom Filt Rate - Afr Amer 5 mL/min (>60); Estimated Creatinine Clearance 5.44 ml/min; Glucose 143 mg/dL (74-106); Sodium Level 141 mmol/L (136-145)
[2022-05-11 13:27] VITALS: BP 148/62; PULSE 84; RESP 16; TEMP 36.3; BMI 43.9
[2022-05-11 13:30] VITALS: BMI 43.9
[2022-05-13 13:53] VITALS: BP 176/73; PULSE 80; RESP 18; TEMP 35.9; BMI 43.9
[2022-05-18 09:05] VITALS: BP 127/73; PULSE 77; RESP 16; TEMP 35.9; BMI 43.9
[2022-05-20 14:04] VITALS: BP 116/63; PULSE 75; RESP 20; TEMP 36.1; BMI 43.9
== END 2022-05-20 23:59 | disposition home or self-care (01) ==
LOC: WC 14:00
PROVIDERS: Physician Assistant; PCP Internal Medicine; Visit Provider Nurse Practitioner Family
DX: L98.499 Non-pressure chronic ulcer of skin of other sites with unspecified severity (principal)
CPT/HCPCS: 36415; 80048; 85025; 97605; 97606

== ENCOUNTER 2022-05-25 09:24 | Day surgery (SDC) | payer MEDICARE, SELFPAY ==
[2022-05-25 09:35] VITALS: BMI 44.1
[2022-05-25 09:41] LABS: Hematocrit 29.6 % (40-54); Hemoglobin 9.4 g/dL (13.0-16.5); Mean Corp Hgb Conc 31.8 g/dL (32-36); Mean Corpuscular Hgb 31.2 pg (27.0-32.0); Mean Corpuscular Volume 98.3 fL (80-94); Mean Platelet Vol. 9.5 fl (6.2-12.0); Platelet Count 261 K/mm3 (150-450); RBC Distribution Width CV 15.4 % (11.6-14.6); RBC Distribution Width SD 55.1 fl (35.1-43.9); Red Blood Count 3.01 M/mm3 (4.6-6.2); White Blood Count 9.4 K/mm3 (4.4-11.0)
--- NOTE | 2022-05-25 09:43 | PCM.HP.BLA ---
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 Is patient in pain?: No Allergies cephalexin Allergy (Verified 05/09/22 13:02) HivesPenicillins Allergy (Verified 05/09/22 13:02) Hives Medications ascorbic acid (vitamin C) 1,000 mg tablet (Vitamin C) 1,000 mg PO DAILY suppliment 12/02/16 [History Confirmed 05/09/22] buspirone 10 mg tablet 10 mg PO BID depression 12/02/16 [History Confirmed 05/09/22] dicyclomine 20 mg tablet 20 mg PO TID IBS 12/02/16 [History Confirmed 05/09/22] venlafaxine 150 mg capsule,extended release 24 hr (Effexor XR) 150 mg PO DAILY depression 12/02/16 [History Confirmed 05/09/22] simethicone 80 mg chewable tablet (Gas Relief (simethicone)) 80 mg PO TID PRN PRN Indigestion 03/06/21 [History Confirmed 05/09/22] calcium acetate(phosphat bind) 667 mg capsule 1,334 - 2,001 mg PO TIDCM supplement 03/07/21 [History Confirmed 05/09/22] atorvastatin 80 mg tablet 80 mg PO DAILY cholesterol 12/23/21 [History Confirmed 05/09/22] cinnamon bark 500 mg capsule 500 mg PO DAILY supplement 12/23/21 [History Confirmed 05/09/22] gabapentin 600 mg tablet 300 mg PO DAILY nerve pain 12/23/21 [History Confirmed 05/09/22] insulin NPH isoph U-100 human 100 unit/mL (3 mL) subcutaneous pen (Novolin N FlexPen) 5 unit subcut DAILY dm 12/23/21 [History Confirmed 05/09/22] midodrine 10 mg tablet 10 mg PO TID bp 12/23/21 [History Confirmed 05/09/22] pyridoxine (vitamin B6) 50 mg tablet (Vitamin B-6) 50 mg PO DAILY 12/23/21 [History Confirmed 05/09/22] aspirin 81 mg tablet,delayed release 81 mg PO BREAKFAST #30 tabs 12/27/21 [Rx Confirmed 05/09/22] nitroglycerin 0.4 mg sublingual tablet 0.4 mg sublingual Q5M PRN chest pain #25 tabs 12/30/21 [Rx Confirmed 05/09/22] insulin NPH isoph U-100 human 100 unit/mL (3 mL) subcutaneous pen (Novolin N FlexPen) 18 unit subcut QHS DM 01/06/22 [History Confirmed 05/09/22] isosorbide mononitrate 30 mg tablet,extended release 24 hr 30 mg PO DAILY HEART 01/06/22 [History Confirmed 05/09/22] pantoprazole 40 mg tablet,delayed release 40 mg PO DAILY GERD 01/06/22 [History Confirmed 05/09/22] amiodarone 200 mg tablet 200 mg PO DAILY 02/10/22 [History Confirmed 05/09/22] clopidogrel 75 mg tablet mg 02/10/22 [History Confirmed 05/09/22] levofloxacin 500 mg tablet 500 mg PO DAILY 02/10/22 [History Confirmed 05/09/22] carvedilol 3.125 mg tablet 3.125 mg PO 05/09/22 [History Confirmed 05/09/22] nifedipine 90 mg tablet,extended release 24 hr 90 mg PO 05/09/22 [History Confirmed 05/09/22] sucroferric oxyhydroxide 500 mg chewable tablet (Velphoro) 500 mg PO 05/09/22 [History Confirmed 05/09/22] warfarin 3 mg tablet 3 mg PO 05/09/22 [History Confirmed 05/09/22] PFSH Medical History? (HFpEF) heart failure with preserved ejection fraction Acute exacerbation of CHF (congestive heart failure) [id number] kidney injury Anemia Anxiety Atrial fibrillation [facility] follow-up encounter Chest pain CHF (congestive heart failure) Chronic kidney failure Chronic renal failure, 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 Colonization status Congestive heart failure (CHF) Coronary artery disease COVID CPAP (continuous positive airway pressure) dependence Delayed wound healing Depression Diabetes mellitus type 2 in obese Dialysis catheter clot or failure Diastolic CHF, acute Dietary restriction Dupuytrens contracture DVT (deep venous thrombosis) Edema of left lower leg due to peripheral venous insufficiency End stage renal disease Equinus contracture of left ankle ESRD (end stage renal disease) on dialysis ESRD (end stage renal disease) on dialysis Former smoker Gastric reflux Hammer toe of left foot Hemodialysis patient High cholesterol History of DVT of lower extremity History of edema History of IBS History of pain when walking History of renal disease History of stress test Hx of echocardiogram Hypertension Insulin dependent diabetes mellitus Loss of consciousness Loss of hearing Malnutrition Morbid obesity NSTEMI (non-ST elevated myocardial infarction) Other specified peripheral vascular diseases Pressure ulcer Problem with dialysis access Pulmonary hypertension Renal failure, chronic Shortness of breath on exertion Spitting suture Syncope Transfusion (red blood cell) associated hemochromatosis Trigger finger Type 2 diabetes mellitus Type 2 diabetes mellitus with diabetic polyneuropathy Ulcer of left lower extremity with fat layer exposed Wears glasses Surgical History? History of arteriovenostomy for renal dialysis (~07/2020) History of carpal tunnel surgery of left wrist History of carpal tunnel surgery of right wrist History of colonoscopy History of quadruple bypass History of surgery History of tonsillectomy and adenoidectomy Family History? Mother Diabetes Heart disease Hypertension Social History? housing:? house Smoking Status:? Former smoker alcohol intake:? never HPI HPI HPI: Patient is a 62 y/o M I am seeing for increase in venous pressures. Patient has a right forearm brachial to cephalic PTFE graft arteriovenous fistula. Patient's most recent fistulogram was performed on 07/02/[address] Deal. Findings included a 70% stenosis of the very proximal vein. Three dominant side branches were coiled with 3 Roby coils. A 5 x 2 Powerflex angioplasty was performed as well. Patient had a revision of the fistula with a PTFE graft placed by Dr. Deal on 09/09/21 due to a severely calcified radial artery. Patient has been doing well with the fistula since that time. Patient dialyzes on T, TH and Sat. In the interim, patient had a myocardial infarction and required quadruple bypass surgery at [facility]. Patient notes he was discharged to [facility] and then had to return to [facility] to have fluid removed. Patient states he has returned back to home. Patient notes for the last several weeks the dialysis center has noted an increase in venous pressures. Patient is maintained on Coumadin. 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 ROS General General: Yes weight change; No appetite, fatigue, colon cancer, breast cancer or weakness HEENT HEENT: No difficulty swallowing, eye injury, eye surgery, swollen glands or hoarseness Endo Endocrine: Yes diabetes mellitus; No thyroid disease, thyroid cancer, Hair loss, heat intolerance or cold intolerance Skin Skin: No rash or changing moles [facility] Musculoskeletal: No back problems, arthritis, rheumatoid arthritis, gout or joint pain Psych Psychiatric: Yes depression; No anxiety or hearing voices Resp Respiratory: No shortness of breath, Yes sleep apnea, No cough, No COPD, No asthma, No emphysema and No wheezing Gastro Gastrointestinal: No abdominal pain, No nausea or vomiting, No diarrhea, No constipation, No blood in stool, No acid reflux, No hemorrhoids, No ulcers, No gallbladder problem and No black,tarry stools Robby Hematologic: Yes blood thinners, No blood disorders, No bleeding, Yes anemia and Yes blood clots Neuro Neurologic: No system reviewed and no additional complaints, except as documented, No as per HPI, No abnormal gait, No abnormal hearing, No abnormal movements, No abnormal speech, No behavioral changes, No burning sensations, No confusion, No convulsions, No disequilibrium, No dizziness, No localized weakness, No frequent falls, No headache(s), No lack of coordination, No loss of vision, No memory loss, Yes numbness, No other visual disturbances, No radicular pain, No restless legs, No sensory deficit, No syncope, Yes tingling, No tremor(s), No weakness and No other Exam Const General: cooperative, healthy appearing, comfortable and no acute distress [facility] Head: normal to inspection Eyes General: appearance normal, both eyes and all related structures Neck Neck: normal visual inspection Neck mass: No Chest Other: Sternal incision with wound vac in place Resp Effort & Inspection: normal respiratory effort Auscultation: clear to auscultation bilaterally Cardio Rate: regular rate Rhythm: regular rhythm GI Inspection: normal to inspection Palpation: soft Musc Cervical Spine: normal cervical lordosis Skin Other: Sternal incision- wound vac intact Neuro General: no focal motor deficits and CN's II-XI intact bilaterally Extrem General: normal to inspection Other: Right forearm AV fistula- good pulse, diminished bruit and thrill. Palpable PTFE graft along the radial artery. Psych Appearance: grossly normal Affect: normal affect Assessment and Plan Assessment and Plan (1) Problem with dialysis access: ?Status:?Acute ?Plan: Dr. Deal will plan to perform a right forearm fistulogram. Procedure details, risks and benefits have been explained. Patient will hold his Coumadin for 3 days prior to the procedure. Patient has had the opportunity to ask and have questions answered. Patient verbally understands and agrees with the plan I have examined the patient and the H&P has been reviewed. There are no clinical changes since date of exam. Willem Deal M.D., F.A.C.S.
[2022-05-25 09:54] LABS: International Normalized Ratio 1.6
[2022-05-25 10:19] LABS: Anion Gap 10 (5-15); BUN 57 mg/dL (7-18); BUN/Creat Ratio 6.5 RATIO (10-20); Calcium,Total 9.1 mg/dL (8.5-10.1); Chloride 100 mmol/L (98-107); Creatinine, Serum 8.71 mg/dL (0.70-1.30); EST Glomerular Filtration Rate 7 mL/min (>60); Est Glom Filt Rate - Afr Amer 8 mL/min (>60); Estimated Creatinine Clearance 8.62 ml/min; Glucose 130 mg/dL (74-106); Potassium 4.9 mmol/L (3.5-5.1); Sodium Level 141 mmol/L (136-145)
--- NOTE | 2022-05-25 11:17 | OP.PCM_ITS ---
Report of Operation Date of Procedure: 05/25/22 Pre-Operative Diagnosis: Diminished flow right forearm hybrid 6 mm PTFE graft a nd forearm cephalic vein fistula Post-Operative Diagnosis: Inflow PTFE graft to fistula venous and anastomotic stenosis and outflow proximal right forearm venous stenosis Surgery/Procedure Performed:: Right upper extremity fistulogram with 6 x 4 conquest angioplasty Description of Surgical Findings:: Timeout informed consent was obtained. 62-year-old gentleman was taken to the special procedures lab placed upon the table. He drove himself so no IV sedation was given. The right upper extremity was sterilely prepped and draped. Ultrasound was used to identify the cephalic vein portion of the fistula closer to the antecubital space and under ultrasound guidance 2% lidocaine was instilled as a local anesthetic. Retrograde with flow micropuncture needle inserted micropuncture wire inserted 6 Venezuelan short sheath dilator inserted using an 035 angled Glidewire and a 4 Venezuelan glide cath I gained access through the PTFE inflow graft and then was able to track that back to the brachial artery PTFE anastomosis. Placed a 4 Venezuelan glide cath at that location and using Isovue contrast obtained of the forearm fistulogram. This demonstrated that the arterial anastomosis to the PTFE was widely patent. The venous anastomosis close to the wrist however was highly strictured at 90% and the very proximal portion of that cephalic vein fistula was stenotic for 2 cm. There also was 2 additional areas of venous stenosis in the proximal right forearm area just distal to the antecubital crease. The patient received 5000 units of heparin. I placed a 6 x 4 conquest balloon performed balloon angioplasty of the PTFE vein inflow anastomosis. That was held for 3 minutes. Through the balloon I shot a completion fistulogram now demonstrating complete resolution of that area of stenosis. I then accessed the fistula antegrade with flow closer to the wrist using 2% lidocaine and free access technique with Seldinger wire than 6 Venezuelan short sheath replacement. Advance the Glidewire into the upper arm and placed a 6 x 4 conquest balloon performed balloon angioplasty of the proximal forearm cephalic vein outflow area at the site of 2 high-grade 80% venous strictures. Both of those responded very well to treatment. I then accomplished a completion fistulogram for the forearm upper arm and outflow long st. Total of 25 cc was used. Sheaths were removed few sutures of 4-0 nylon was placed hemostasis was intact blood loss was minimal no apparent complication The patient has a 6 mm PTFE graft anastomosis with the brachial artery that runs down along the forearm and then is anastomosed to the cephalic vein close to the wrist with the cephalic vein now performing the accessing fistula for dialysis. There was PTFE vein stenosis and there was outflow stenosis in the proximal forearm the upper arm and central venous outflow particular through the cephalic vein was widely patent. Subsequent to the balloon angioplasty of the inflow and outflow sites there appeared to be complete resolution of the areas of venous stenosis. Willem Deal M.D., F.A.C.S. Surgeon: Willem Deal Type of Anesthesia: Local
== END 2022-05-25 12:15 | disposition home or self-care (01) ==
PROVIDERS: PCP Internal Medicine; Referring Provider Surgery; Visit Provider Surgery
DX: T82.898A Other specified complication of vascular prosthetic devices, implants and grafts, initial encounter (principal); I13.2 Hypertensive heart and chronic kidney disease with heart failure and with stage 5 chronic kidney disease, or end stage renal disease; Z99.2 Dependence on renal dialysis; I50.9 Heart failure, unspecified; N18.6 End stage renal disease; Z79.4 Long term (current) use of insulin; E11.9 Type 2 diabetes mellitus without complications; I87.2 Venous insufficiency (chronic) (peripheral); Z87.891 Personal history of nicotine dependence; Z79.82 Long term (current) use of aspirin; Y84.9 Medical procedure, unspecified as the cause of abnormal reaction of the patient, or of later complication, without mention of misadventure at the time of the procedure; I25.2 Old myocardial infarction; I25.10 Atherosclerotic heart disease of native coronary artery without angina pectoris; Z86.16 Personal history of COVID-19
CPT/HCPCS: 36415; 36902; 76937; 80048; 85027; 85610; 97605; Q9967; C1725; C1769

== ENCOUNTER 2022-06-15 13:00 | Outpatient (RCR) | payer MEDICARE, SELFPAY ==
[2022-05-21 01:55] VITALS: BP 116/63; PULSE 75; RESP 20; TEMP 36.1; BMI 43.9
[2022-05-23 08:30] VITALS: BP 118/63; PULSE 78; RESP 20; TEMP 36.7; BMI 43.9
[2022-05-25 12:50] VITALS: BP 157/59; PULSE 88; RESP 20; TEMP 36.6; BMI 43.9
[2022-05-27 13:14] VITALS: BMI 43.9
--- NOTE | 2022-06-01 13:33 | WC ---
EILEEN Gunn, [facility] Surgery Dept: Called regarding Marco Sunshine Pt to continue NPT/VAC to wound until next F/U appt with Dr. Pagan at [facility].
[2022-06-03 13:45] VITALS: BP 81/45; PULSE 83; RESP 18; TEMP 36.1; BMI 43.9
[2022-06-08 13:12] VITALS: BP 110/67; PULSE 80; RESP 16; TEMP 36.8; BMI 43.9
--- NOTE | 2022-06-10 13:15 | NURSING ---
pt walked in to room very shaky and having a hard time responding and understanding instructions. We sat pt down in chair and the pt than quickly responded that it was his blood pressure. the pt stated he has been having these issues that it drops so low when standing and he begins to shake. pt BP when sitting was 118/50 HR of 70,BS was [address] Su came to check on pt. Pt is A&Ox3 and states they placed him on midodrine to increase his BP.
[2022-06-13 08:21] VITALS: BP 117/42; PULSE 75; RESP 20; TEMP 36.2; BMI 43.9
[2022-06-15 13:00] VITALS: BP 120/62; PULSE 90; RESP 20; TEMP 36.4; BMI 43.9
[2022-06-20 13:50] LABS: Bedside Glucose 211 mg/dL (74-106)
== END 2022-06-19 23:59 | disposition home or self-care (01) ==
LOC: WC 13:00
PROVIDERS: PCP Internal Medicine; Visit Provider Nurse Practitioner Family
DX: L98.499 Non-pressure chronic ulcer of skin of other sites with unspecified severity (principal); Z79.899 Other long term (current) drug therapy
CPT/HCPCS: 82962; 97605

== ENCOUNTER 2022-07-20 08:45 | Outpatient (RCR) | payer MEDICARE, SELFPAY ==
[2022-06-20 00:37] VITALS: BP 120/62; PULSE 90; RESP 20; TEMP 36.4; BMI 43.9
[2022-06-20 08:27] VITALS: BP 177/78; PULSE 76; RESP 18; TEMP 36.2; BMI 43.9
[2022-06-22 11:48] VITALS: BP 151/68; PULSE 81; RESP 16; BMI 43.9
[2022-06-24 13:13] VITALS: BP 123/47; PULSE 82; RESP 18; TEMP 36.3; BMI 43.9
[2022-06-27 08:14] VITALS: BP 133/54; PULSE 80; RESP 20; TEMP 35.9; BMI 43.9
[2022-06-29 12:55] VITALS: BP 144/63; PULSE 91; RESP 18; TEMP 37.2; BMI 43.9
[2022-07-01 13:59] VITALS: BP 132/68; PULSE 79; RESP 20; TEMP 36.2; BMI 43.9
[2022-07-06 08:50] VITALS: BP 119/48; PULSE 88; RESP 20; TEMP 36.4; BMI 43.9
--- NOTE | 2022-07-06 11:01 | PCM.WC.HP ---
History of Present Illness Date of Service: 07/06/22 Chief Complaint: Left leg ulcer History of Wound: This 61-year-old male with multiple comorbidities presents to the wound healing center for an ulcer on his mid sternum after CABG 01/11. He states that he had an ND while receiving dialysis and was transferred to [facility] where he had bypass surgery. He was discharged to [facility] for rehab. He was then readmitted to [facility] for fluid on his lungs. He said that he is not sure when the incision dehiscence occurred. He states he is receiving an antibiotic on the days he has dialysis. He is unsure of the antibiotic but it is for 6 weeks. He was referred to us for wound VAC changes and wound care. Patient has an extensive history of CAD, CABG, T2D, ESRD - on dialysis T--Mon, on Warfarin, CHF, HTN, Afib. He is a very poor historian. His wound has been managed by his cardiothoracic surgeon's practice until now. He has had a wound VAC since February 2022. He comes here today for evaluation and treatment of his healing sternal ulcer. Patient denies fever, chills, nausea, vomiting or diarrhea. Progress of Wound: Midsternal ulcer is much smaller than when previous evaluated in February. The wound VAC was discontinued and he is coming in for further wound care treatment. [facility] Medical History (HFpEF) heart failure with preserved ejection fraction Acute exacerbation of CHF (congestive heart failure) [id number] kidney injury Anemia Anxiety Atrial fibrillation [facility] Cardiology follow-up encounter Chest pain CHF (congestive heart failure) Chronic kidney failure Chronic renal failure, 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 Colonization status Congestive heart failure (CHF) Coronary artery disease COVID CPAP (continuous positive airway pressure) dependence Delayed wound healing Depression Diabetes mellitus type 2 in obese Dialysis catheter clot or failure Diastolic CHF, acute Dietary restriction Dupuytrens contracture DVT (deep venous thrombosis) Edema of left lower leg due to peripheral venous insufficiency End stage renal disease Equinus contracture of left ankle ESRD (end stage renal disease) on dialysis ESRD (end stage renal disease) on dialysis Former smoker Gastric reflux Hammer toe of left foot Hemodialysis patient High cholesterol History of DVT of lower extremity History of edema History of IBS History of pain when walking History of renal disease History of stress test Hx of echocardiogram Hypertension Insulin dependent diabetes mellitus Loss of consciousness Loss of hearing Malnutrition Morbid obesity NSTEMI (non-ST elevated myocardial infarction) Other specified peripheral vascular diseases Pressure ulcer Problem with dialysis access Pulmonary hypertension Renal failure, chronic Shortness of breath on exertion Spitting suture Syncope Transfusion (red blood cell) associated hemochromatosis Trigger finger Type 2 diabetes mellitus Type 2 diabetes mellitus with diabetic polyneuropathy Ulcer of left lower extremity with fat layer exposed Wears glasses Home Medications ascorbic acid (vitamin C) 1,000 mg tablet (Vitamin C) 1,000 mg PO DAILY suppliment 12/02/16 [History Last Taken 01/05/22] buspirone 10 mg tablet 10 mg PO BID depression 12/02/16 [History Last Taken 01/05/22] dicyclomine 20 mg tablet 20 mg PO TID IBS 12/02/16 [History Last Taken 01/05/22] venlafaxine 150 mg capsule,extended release 24 hr (Effexor XR) 150 mg PO DAILY depression 12/02/16 [History Last Taken 01/05/22] simethicone 80 mg chewable tablet (Gas Relief (simethicone)) 80 mg PO TID PRN PRN Indigestion 03/06/21 [History Last Taken 01/05/22] calcium acetate(phosphat bind) 667 mg capsule 1,334 - 2,001 mg PO TIDCM supplement 03/07/21 [History Last Taken 01/05/22] atorvastatin 80 mg tablet 80 mg PO DAILY cholesterol 12/23/21 [History Last Taken 01/05/22] cinnamon bark 500 mg capsule 500 mg PO DAILY supplement 12/23/21 [History Last Taken 01/05/22] gabapentin 600 mg tablet 300 mg PO DAILY nerve pain 12/23/21 [History Last Taken 01/05/22] insulin NPH isoph U-100 human 100 unit/mL (3 mL) subcutaneous pen (Novolin N FlexPen) 5 unit subcut DAILY dm 12/23/21 [History Last Taken 01/06/22] midodrine 10 mg tablet 10 mg PO TID bp 12/23/21 [History Last Taken 01/06/22] pyridoxine (vitamin B6) 50 mg tablet (Vitamin B-6) 50 mg PO DAILY 12/23/21 [History Last Taken 01/05/22] aspirin 81 mg tablet,delayed release 81 mg PO BREAKFAST #30 tabs 12/27/21 [Rx Last Taken 01/05/22] nitroglycerin 0.4 mg sublingual tablet 0.4 mg sublingual Q5M PRN chest pain #25 tabs 12/30/21 [Rx Last Taken 01/06/22] insulin NPH isoph U-100 human 100 unit/mL (3 mL) subcutaneous pen (Novolin N FlexPen) 18 unit subcut QHS DM 01/06/22 [History Last Taken 01/05/22] isosorbide mononitrate 30 mg tablet,extended release 24 hr 30 mg PO DAILY HEART 01/06/22 [History Last Taken 01/05/22] pantoprazole 40 mg tablet,delayed release 40 mg PO DAILY GERD 01/06/22 [History Last Taken 01/05/22] amiodarone 200 mg tablet 200 mg PO DAILY 02/10/22 [History Last Taken Unknown] clopidogrel 75 mg tablet 75 mg PO DAILY 02/10/22 [History Last Taken Unknown] levofloxacin 500 mg tablet 500 mg PO DAILY 02/10/22 [History Last Taken Unknown] carvedilol 3.125 mg tablet 3.125 mg PO DAILY 05/09/22 [History Last Taken Unknown] nifedipine 90 mg tablet,extended release 24 hr 90 mg PO DAILY 05/09/22 [History Last Taken Unknown] sucroferric oxyhydroxide 500 mg chewable tablet (Velphoro) 500 mg PO DAILY 05/09/22 [History Last Taken Unknown] warfarin 3 mg tablet 3 mg PO DAILY 05/09/22 [History Last Taken Unknown] Allergy/AdvReac Type Severity Reaction Status Date / Time cephalexin Allergy Hives Verified 05/24/22 07:29 Penicillins Allergy Hives Verified 05/24/22 07:29 Family History Mother Diabetes Heart disease Hypertension Surgical History History of arteriovenostomy for renal dialysis (~07/2020) History of carpal tunnel surgery of left wrist History of carpal tunnel surgery of right wrist History of colonoscopy History of quadruple bypass History of surgery History of tonsillectomy and adenoidectomy Social History (Reviewed 05/09/22 @ 13:02 by Meredith Lal housing: house Smoking Status: Former smoker alcohol intake: never Vital Signs Vital Signs Vital Signs: 07/06/22 08:50 Temperature 97.6 F L Temperature Source Temporal Pulse Rate 88 Respiratory Rate 20 H Blood Pressure 119/48 L Blood Pressure Mean 71 Blood Pressure Source Monitor Weight Weight: 289 lb Body Mass Index (BMI) 43.9 Physical Exam Const alert, oriented x3 and no apparent distress General Appearance: cooperative HEENT normocephalic Eyes General Eye: normal appearance of both eyes Neck full ROM Resp normal respiratory effort, normal air movement and clear to auscultation bilaterally Effort and Inspection: able to speak in complete sentences Cardio regular rate and regular rhythm GI soft to palpation and non-tender Extremity full ROM Skin Wound Narrative: Midsternal ulcer is a cluster. The ulcer bed is beefy pink. Fiona wound is clear. Neuro oriented x3 Sensorium / Orientation: awake Psych mental status grossly normal, thought process normal and cooperative Debridement Note Debridement Note Wound debrided: midsternal chest ulcer cluster Type of Debridement: Excisional debridement Anesthesia Used: 5% Lidocaine Gel Depth: Down to and including healthy tissue and in the subcutaneous layer Percentage of wound debrided: 100 Instrument Used: 3mm curette Tissue Removed: Devitalized tissue and slough Severity: Fat Layer Exposed Amount of bleeding with debridement: Mild Bleeding Controlled with: Pressure and Compression and gauze Patient tolerated procedure: Patient tolerated procedure well Post-Debridement Measurements and Additional Note: Post-Debridement Measurements/Treatment ARABELLA - Nurse 1 - General Ulcer Assessment Start: 06/20/22 08:26 Freq: Status: Active Protocol: ROSS Activity Type Activity Date Activity User E-sign Co-sign Detail Recorded Client Recorded Date Recorded By Document 06/20/22 08:27 PL [id number] 06/20/22 08:33 PL Document 06/22/22 11:48 [facility] [id number] 06/22/22 11:52 [facility] Document 06/24/22 13:13 JF [id number] 06/24/22 13:15 JF Document 06/27/22 08:14 DL [id number] 06/27/22 08:26 DL Document 06/29/22 12:55 [facility] [id number] 06/29/22 12:58 BMF Document 07/01/22 13:59 DL [id number] 07/01/22 14:02 DL Document 07/06/22 08:50 DL [id number] 07/06/22 09:40 DL 06/20/22 06/22/22 06/24/22 08:27 11:48 13:13 WC - Today's Visit Information Type of service Nurse-only Follow-up Visit Nurse-only Visit (Physician/MACHINIST GENERAL Visit ),Nurse-only Visit Type of service (Other) NEEDLE MAKER MAY STOP IN & SEE Arrival Mode Ambulatory Ambulatory Ambulatory Transfer Assistance None None Patient Identification Verified (Name & Yes Yes Yes ) Patient Requires Transmission-Based No No No Precautions Safety Precautions NA Finger Stick Blood Sugar(mg/dl) (if indicated): Blood Sugar Height and Weight Body Mass Index (BMI) 43.9 43.9 43.9 BMI Classification Obese Obese Obese Vital Signs Temperature (97.8 F-99.1 F) 97.2 F L 97.3 F L Temperature Source Temporal Temporal Pulse Rate (60-100) 76 81 82 Pulse Location Monitor Monitor Respiratory Rate (12-18) 18 16 18 Respiratory rate source Observation Observation Oxygen Delivery Method Room Air Blood Pressure (90/60-120/80) 177/78 H 151/68 H 123/47 H Blood Pressure Mean 111 95 72 Source Monitor Monitor Position Sitting Semi-Fowlers Blood Pressure Location Right Arm Left Arm History Since Last Visit- (Skip if this is Patient's initial visit) Have you changed medications since your No No last visit? Any new allergies or adverse reactions No No Had a fall/change in ADL's that may No No increase risk of falls Signs or symptoms of abuse and/or No No neglect since last visit Have you been in the hospital since your No No last visit? Has dressing in place as prescribed Yes Has compression in place as prescribed N/A N/A Has offloadiing in place as prescribed N/A N/A Experienced any changes in pain level or No No management Left Footwear Diabetic Shoe Regular Shoe Right Footwear Diabetic Shoe Regular Shoe Pain Scale: 0-10 Numeric Is Patient Pain Free? Yes Yes Yes 06/27/22 06/29/22 07/01/22 08:14 12:55 13:59 WC - Today's Visit Information Type of service Nurse-only Nurse-only Nurse-only Visit Visit Visit Type of service (Other) Arrival Mode Ambulatory Ambulatory Ambulatory Transfer Assistance None None None Patient Identification Verified (Name & Yes Yes Yes ) Patient Requires Transmission-Based No No No Precautions Safety Precautions Finger Stick Blood Sugar(mg/dl) (if indicated): Blood Sugar Height and Weight Body Mass Index (BMI) 43.9 43.9 43.9 BMI Classification Obese Obese Obese Vital Signs Temperature (97.8 F-99.1 F) 96.7 F L 98.9 F 97.2 F L Temperature Source Temporal Temporal Temporal Pulse Rate (60-100) 80 91 79 Pulse Location Monitor Monitor Monitor Respiratory Rate (12-18) 20 H 18 20 H Respiratory rate source Observation Observation Observation Oxygen Delivery Method Room Air Blood Pressure (90/60-120/80) 133/54 H 144/63 H 132/68 H Blood Pressure Mean 80 90 89 Source Monitor Monitor Monitor Position Sitting Blood Pressure Location Right Arm History Since Last Visit- (Skip if this is Patient's initial visit) Have you changed medications since your No No last visit? Any new allergies or adverse reactions No No Had a fall/change in ADL's that may No No increase risk of falls Signs or symptoms of abuse and/or No No neglect since last visit Have you been in the hospital since your No No last visit? Has dressing in place as prescribed Yes Yes Has compression in place as prescribed N/A N/A Has offloadiing in place as prescribed N/A N/A Experienced any changes in pain level or No No management Left Footwear Diabetic Shoe Right Footwear Diabetic Shoe Pain Scale: 0-10 Numeric Is Patient Pain Free? Yes Yes Yes 07/06/22 08:50 WC - Today's Visit Information Type of service Follow-up Visit (Physician/MACHINIST GENERAL ) Type of service (Other) Arrival Mode Ambulatory Transfer Assistance None Patient Identification Verified (Name & Yes ) Patient Requires Transmission-Based No Precautions Safety Precautions Finger Stick Blood Sugar(mg/dl) (if 152 indicated): Blood Sugar Stated by Patient Height and Weight Body Mass Index (BMI) 43.9 BMI Classification Obese Vital Signs Temperature (97.8 F-99.1 F) 97.6 F L Temperature Source Temporal Pulse Rate (60-100) 88 Pulse Location Monitor Respiratory Rate (12-18) 20 H Respiratory rate source Observation Oxygen Delivery Method Blood Pressure (90/60-120/80) 119/48 L Blood Pressure Mean 71 Source Monitor Position Blood Pressure Location History Since Last Visit- (Skip if this is Patient's initial visit) Have you changed medications since your No last visit? Any new allergies or adverse reactions No Had a fall/change in ADL's that may No increase risk of falls Signs or symptoms of abuse and/or No neglect since last visit Have you been in the hospital since your No last visit? Has dressing in place as prescribed Yes Has compression in place as prescribed N/A Has offloadiing in place as prescribed N/A Experienced any changes in pain level or management Left Footwear Right Footwear Pain Scale: 0-10 Numeric Is Patient Pain Free? Yes WC - Nurse 1 - General Ulcer Measurement Start: 06/20/22 08:26 Freq: Status: Active Protocol: Activity Type Activity Date Activity User E-sign Co-sign Detail Recorded Client Recorded Date Recorded By Document 06/20/22 08:27 PL [id number] 06/20/22 08:33 PL Document 06/22/22 11:48 [facility] [id number] 06/22/22 11:52 [facility] Document 06/24/22 13:13 JF [id number] 06/24/22 13:15 JF Document 06/27/22 08:14 DL [id number] 06/27/22 08:26 DL Document 06/29/22 12:55 BM [id number] 06/29/22 12:58 BM Document 07/01/22 13:59 DL [id number] 07/01/22 14:02 DL Document 07/06/22 08:50 DL [id number] 07/06/22 09:40 DL 06/20/22 06/22/22 06/24/22 08:27 11:48 13:13 Wound Center Nurse 1 #5- STERNUM cluster -Combined with other wound No No No -Current Size (cm) - Length 1.5 2.4 3.2 -Current Size (cm) - Width 1.5 1.5 2.0 -Current Size (cm) - Depth 1.0 0.5 0.5 -Total Square Cm 2.25 3.60 6.40 -Date of Last Picture (Recall this 06/22/22 field) -Photo Taken No Yes No -Epithelialization Large 67-100% Small 1-33% Small 1-33% -Tunneling No No -Undermining/Tunneling No -Circular Undermining No No -Exudate Amt Medium Small Small -Exudate Type Serosanguineous Serosanguineous Serosanguineous -Wound Margin Distinct, Flat & Intact Outline Attached -Granulation Amt Medium (34-66%) Medium (34-66%) Large (67-100%) -Granulation Quality Pale,[place] Red Red -Slough/Fibrin Yes Yes -Necrosis Amt Medium (34-66%) Medium (34-66%) Small (1-33%) -Necrotic Tissue Type Adherent Slough Adherent Slough Adherent Slough -Structure Exposed N/A -Texture (Fiona-wound Skin Appearance) Excoriation, Assessed Scarring,Rash -Moisture (Fiona-wound Skin Appearance) Assessed Assessed,Dry/ Scaly -Color (Fiona-wound Skin Appearance) Assessed, Assessed Erythema -Temperature (Fiona-wound Skin No Abnormality No Abnormality Appearance) (Pt Warm) (Pt Warm) -Tenderness on Palpation (Fiona-wound No No Skin Appearance) -Ulcer Cleansing Soap and Water Soap and Water Wound Cleanser -Foul Odor after Cleansing No No No -Anesthetic Used 5% Lidocaine Gel Lower Limb Edema Present NA 06/27/22 06/29/22 07/01/22 08:14 12:55 13:59 Wound Center Nurse 1 #5- STERNUM cluster -Combined with other wound No -Current Size (cm) - Length 1.9 -Current Size (cm) - Width 1.9 -Current Size (cm) - Depth 0.4 -Total Square Cm 3.61 -Date of Last Picture (Recall this field) -Photo Taken -Epithelialization Small 1-33% -Tunneling -Undermining/Tunneling -Circular Undermining -Exudate Amt Small Small None Present -Exudate Type Serosanguineous Serosanguineous Serosanguineous -Wound Margin Distinct, Distinct, Distinct, Outline Outline Outline Attached Attached Attached -Granulation Amt Large (67-100%) Large (67-100%) -Granulation Quality [place] Pale,[place]ford -Slough/Fibrin -Necrosis Amt Small (1-33%) Small (1-33%) -Necrotic Tissue Type Adherent Slough Adherent Slough -Structure Exposed N/A N/A -Texture (Fiona-wound Skin Appearance) Scarring Assessed Scarring -Moisture (Fiona-wound Skin Appearance) No Abnormality Assessed No Abnormality -Color (Fiona-wound Skin Appearance) No Abnormality Assessed, No Abnormality Erythema -Temperature (Fiona-wound Skin No Abnormality No Abnormality No Abnormality Appearance) (Pt Warm) (Pt Warm) (Pt Warm) -Tenderness on Palpation (Fiona-wound No No Skin Appearance) -Ulcer Cleansing Soap and Water Soap and Water Soap and Water -Foul Odor after Cleansing No No No -Anesthetic Used Lower Limb Edema Present 07/06/22 08:50 Wound Center Nurse 1 #5- STERNUM cluster -Combined with other wound -Current Size (cm) - Length 1.4 -Current Size (cm) - Width 0.8 -Current Size (cm) - Depth 0.1 -Total Square Cm 1.12 -Date of Last Picture (Recall this field) -Photo Taken Yes -Epithelialization -Tunneling -Undermining/Tunneling -Circular Undermining -Exudate Amt Small -Exudate Type Serosanguineous -Wound Margin Distinct, Outline Attached -Granulation Amt Medium (34-66%) -Granulation Quality [place] -Slough/Fibrin -Necrosis Amt Medium (34-66%) -Necrotic Tissue Type Adherent Slough -Structure Exposed N/A -Texture (Fiona-wound Skin Appearance) Scarring -Moisture (Fiona-wound Skin Appearance) No Abnormality -Color (Fiona-wound Skin Appearance) No Abnormality -Temperature (Fiona-wound Skin No Abnormality Appearance) (Pt Warm) -Tenderness on Palpation (Fiona-wound No Skin Appearance) -Ulcer Cleansing Soap and Water -Foul Odor after Cleansing No -Anesthetic Used 4% Lidocaine Solution Lower Limb Edema Present - Nurse 2 - General Ulcer CM Notes Start: 06/20/22 08:26 Freq: Status: Active Protocol: Activity Type Activity Date Activity User E-sign Co-sign Detail Recorded Client Recorded Date Recorded By Document 07/06/22 09:15 REID [id number] 07/06/22 09:16 REID 07/06/22 09:15 Wound Center Nurse 2 -Time 09:15 -Correct Patient Yes -Correct Side, Site, Position Yes -Correct Procedure Yes -Procedure Performed Yes -Type of Procedure Debridement -Clinical Debridement Subcutaneous -Tissue Removed Subcutaneous -Post Debridement (cm) - Length 3.6 -Post Debridement (cm) - Width 1.9 -Post Debridement (cm) - Depth 0.4 -Total Square (Post) (cm) 6.84 -Area of Debridement (cm) - Length 3.6 -Area of Debridement (cm) - Width 1.9 -Total Square (Area) (cm) 6.84 -Tunneling No -Undermining/Tunneling No -Circular Undermining No -Wound/Ulcer Outcome Not Healed -Ulcer Cleansing Rinsed/ Irrigated with Saline -Foul Odor after Cleansing No -Bioengineered Tissue No -Bleeding Controlled with Pressure -Treatment Response Procedure Tolerated Well -Offloading No -Debridement - Subq, 1st 20sq cm Yes Pain Scale: 0-10 Numeric Is Patient Pain Free? Yes WC - Nurse 3 - General Ulcer D/C NN Start: 06/20/22 08:26 Freq: Status: Active Protocol: Activity Type Activity Date Activity User E-sign Co-sign Detail Recorded Client Recorded Date Recorded By Document 06/20/22 08:50 PL [id number] 06/20/22 08:51 PL Document 06/22/22 12:29 [id number] 06/22/22 12:30 JF Document 06/24/22 13:13 JF [id number] 06/24/22 13:15 JF Document 06/27/22 08:26 DL [id number] 06/27/22 08:28 DL Document 06/29/22 12:55 BM [id number] 06/29/22 12:58 BMF Document 07/01/22 13:59 DL [id number] 07/01/22 14:02 DL Document 07/06/22 09:38 AK [id number] 07/06/22 09:39 AK 06/20/22 06/22/22 06/24/22 08:50 12:29 13:13 Wound Care Center Nurse 3 #5- STERNUM cluster -Ulcer Cleansing Soap and Water Rinsed/ Soap and Water Irrigated with Saline -Foul Odor after Cleansing No No -Negative Pressure Wound Therapy Continue Continue Continue -Setting (mmHg) 150 150 150 -Negative Pressure is Continuous Continuous Continuous -Primary Dressing Applied -Other Dressing -NPWT Application Charge NPWT </= 50 sq NPWT & NPWT </= 50 sq cm ($) Debridement (nc cm ($) ) -Aquacel Rope -Mepilex [facility] Treatment Response Procedure Tolerated Well Vital Signs Temperature (97.8 F-99.1 F) 97.3 F L Temperature Source Temporal Pulse Rate (60-100) 82 Pulse Location Monitor Respiratory Rate (12-18) 18 Respiratory rate source Observation Oxygen Delivery Method Blood Pressure (90/60-120/80) 123/47 H Blood Pressure Mean 72 Source Monitor Position Semi-Fowlers Blood Pressure Location Left Arm Pain Scale: 0-10 Numeric Is Patient Pain Free? Yes Yes Yes WC - Visit Discharge Discharge Condition Stable Stable Stable Ambulatory Status Ambulatory Ambulatory Ambulatory Transportation Private Auto Private Auto Private Auto Medication Reconcilliation completed & No Yes provided to patient/care provider Clinical Summary of Care Provided Yes Yes Notes: 06/27/22 06/29/22 07/01/22 08:26 12:55 13:59 Wound Care Center Nurse 3 #5- STERNUM cluster -Ulcer Cleansing Soap and Water Soap and Water Soap and Water -Foul Odor after Cleansing No No No -Negative Pressure Wound Therapy Continue Continue Continue -Setting (mmHg) 150 150 150 -Negative Pressure is Continuous Continuous Continuous -Primary Dressing Applied -Other Dressing APPLIED PER RB RN -NPWT Application Charge NPWT </= 50 sq NPWT </= 50 sq NPWT </= 50 sq cm ($) cm ($) cm ($) -Aquacel Rope -Mepilex [facility] Treatment Response Procedure Procedure Procedure Tolerated Well Tolerated Well Tolerated Well Vital Signs Temperature (97.8 F-99.1 F) 98.9 F 97.2 F L Temperature Source Temporal Temporal Pulse Rate (60-100) 91 79 Pulse Location Monitor Monitor Respiratory Rate (12-18) 18 20 H Respiratory rate source Observation Observation Oxygen Delivery Method Room Air Blood Pressure (90/60-120/80) 144/63 H 132/68 H Blood Pressure Mean 90 89 Source Monitor Monitor Position Sitting Blood Pressure Location Right Arm Pain Scale: 0-10 Numeric Is Patient Pain Free? Yes Yes Yes WC - Visit Discharge Discharge Condition Stable Stable Stable Ambulatory Status Ambulatory Ambulatory Ambulatory Transportation Private Auto Private Auto Private Auto Medication Reconcilliation completed & provided to patient/care provider Clinical Summary of Care Provided Notes: F/U wed with Taylor Trotter. 07/06/22 09:38 Wound Care Center Nurse 3 #5- STERNUM cluster -Ulcer Cleansing Rinsed/ Irrigated with Saline -Foul Odor after Cleansing No -Negative Pressure Wound Therapy N/A -Setting (mmHg) -Negative Pressure is -Primary Dressing Applied Aquacel Rope, Mepilex Border -Other Dressing -NPWT Application Charge -Aquacel Rope 1 -Mepilex Border 1 Treatment Response Vital Signs Temperature (97.8 F-99.1 F) Temperature Source Pulse Rate (60-100) Pulse Location Respiratory Rate (12-18) Respiratory rate source Oxygen Delivery Method Blood Pressure (90/60-120/80) Blood Pressure Mean Source Position Blood Pressure Location Pain Scale: 0-10 Numeric Is Patient Pain Free? Yes WC - Visit Discharge Discharge Condition Stable Ambulatory Status Ambulatory Transportation Private Auto Medication Reconcilliation completed & Yes provided to patient/care provider Clinical Summary of Care Provided Yes Notes: Charges/Coding Visit Charges Office Visits / Consults: 33615 OV L3 Est (25 modifier) Procedures Integumentary 111xxx-113xx: [id number] Ingrid subq tissue 20 sq cm/< 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: CODE(S): L98.492 - Non-pressure chronic ulcer of skin of other sites with fat layer exposed (2) Type 2 diabetes mellitus: CODE(S): E11.9 - Type 2 diabetes mellitus without complications (3) History of coronary artery bypass graft: CODE(S): Z95.1 - Presence of aortocoronary bypass graft (4) ESRD (end stage renal disease) on dialysis: CODE(S): N18.6 - End stage renal disease; Z99.2 - Dependence on renal dialysis (5) Hypertension: CODE(S): I10 - Essential (primary) hypertension PLAN: Plan Patient evaluated at the wound healing center. His cardiothoracic surgeon office transferred his wound care to the wound center. Wound care - Wound VAC discontinued. Aquacel-Ag wicked into the base of the ulcer cluster topped with [place] SAP daily after washing with soap and water. Wound culture obtained today, 07/06/22,a positive culture will necessitate antibiotic therapy. Encouraged patient to eat a high protein, low sodium, low carbohydrate diet. Continue dialysis as scheduled on . Follow up one week.
--- NOTE | 2022-07-08 13:13 | WC ---
Called and left a voicemail message on patient's cell letting him know that Caroline Trotter [employer] called in Bactrim DS to his pharmacy and that patient needs to contact his PCP office about getting his Pt/INR checked more often since the ATB can disrupt his Coumadin levels. Asked that Patient call us back at [phone] letting us know he received this message and that he understands.
--- NOTE | 2022-07-11 11:36 | WC ---
Called and left a message on patient's voicemail regarding an additional antibiotic called Doxycycline to his pharmacy and he will now be taking this along with Bactrim. Requested on his voicemail to have him call [phone] that he received the mssage.
[2022-07-13 08:33] VITALS: BP 117/57; PULSE 85; RESP 20; TEMP 36.7; BMI 43.9
--- NOTE | 2022-07-13 09:46 | PCM.WC.PN ---
History of Present Illness Date of Service: 07/13/22 Chief Complaint: Left leg ulcer History of Wound: This 61-year-old male with multiple comorbidities presents to the wound healing center for an ulcer on his mid sternum after CABG 01/11. He states that he had an PR while receiving dialysis and was transferred to [facility] where he had bypass surgery. He was discharged to [facility] for rehab. He was then readmitted to [facility] for fluid on his lungs. He said that he is not sure when the incision dehiscence occurred. He states he is receiving an antibiotic on the days he has dialysis. He is unsure of the antibiotic but it is for 6 weeks. He was referred to us for wound VAC changes and wound care. Patient has an extensive history of CAD, CABG, T2D, ESRD - on dialysis T--Mon, on Warfarin, CHF, HTN, Afib. He is a very poor historian. His wound has been managed by his cardiothoracic surgeon's practice until now. He has had a wound VAC since February 2022. He comes here today for evaluation and treatment of his healing sternal ulcer. Wound culture obtained on 07/06/22 which was positive for MSSA, Coag negative staph, Klebsiella oxytoca. He was started on Bactrim and Doxycycline to treat the organisms. Patient denies fever, chills, nausea, vomiting or diarrhea. Progress of Wound: Midsternal ulcer cluster is still present. The inferior portion of the ulcer is much smaller and the superior portion of the ulcer where there was a small hole present last week, is significantly larger. Objective Data Objective Data Vital Signs: Vital Signs Temp Pulse Resp BP O2 Del Method 98.1 F 85 20 H 117/57 L Room Air 07/13/22 08:33 07/13/22 08:33 07/13/22 08:33 07/13/22 08:33 06/29/22 12:55 Oxygen Delivery Method Room Air Weight: 289 lb Body Mass Index (BMI) 43.9 Lab / Micro Data Micro: Microbiology 07/06/22 Unknown Wound Abcess - Chest Gram Stain - Final 07/06/22 Unknown Wound Abcess - Chest Wound Culture - Final Staphylococcus aureus Coag Negative Staph Klebsiella oxytoca 07/06/22 Unknown Wound Abcess - Chest Anaerobic Culture - Final No anaerobic bacteria isolated. Charges/Coding Procedures Integumentary [id number]: [id number] Ingrid subq tissue 20 sq cm/< Debridement Note Debridement Note Wound debrided: midsternal chest ulcer cluster Type of Debridement: Excisional debridement Anesthesia Used: 5% Lidocaine Gel Depth: Down to and including healthy tissue and in the subcutaneous layer Percentage of wound debrided: 100 Instrument Used: 3mm curette Tissue Removed: Devitalized tissue and slough Severity: Fat Layer Exposed Amount of bleeding with debridement: Mild Bleeding Controlled with: Pressure and Compression and gauze Patient tolerated procedure: Patient tolerated procedure well Post-Debridement Measurements and Additional Note: Post-Debridement Measurements/Treatment - Nurse 1 - General Ulcer Assessment Start: 06/20/22 08:26 Freq: Status: Active Protocol: ROSS Activity Type Activity Date Activity User E-sign Co-sign Detail Recorded Client Recorded Date Recorded By Document 06/20/22 08:27 PL [id number] 06/20/22 08:33 PL Document 06/22/22 11:48 [facility] [id number] 06/22/22 11:52 [facility] Document 06/24/22 13:13 JF [id number] 06/24/22 13:15 JF Document 06/27/22 08:14 DL [id number] 06/27/22 08:26 DL Document 06/29/22 12:55 BM [id number] 06/29/22 12:58 BM Document 07/01/22 13:59 DL [id number] 07/01/22 14:02 DL Document 07/06/22 08:50 DL [id number] 07/06/22 09:40 DL Document 07/13/22 08:33 DL [id number] 07/13/22 08:37 DL 06/20/22 06/22/22 06/24/22 08:27 11:48 13:13 - Today's Visit Information Type of service Nurse-only Follow-up Visit Nurse-only Visit (Physician/CROP OR GRAIN FARMWORKER Visit ),Nurse-only Visit Type of service (Other) WINDOW INSTALLER MAY STOP IN & SEE Arrival Mode Ambulatory Ambulatory Ambulatory Transfer Assistance None None Patient Identification Verified (Name & Yes Yes Yes ) Patient Requires Transmission-Based No No No Precautions Safety Precautions NA Finger Stick Blood Sugar(mg/dl) (if indicated): Blood Sugar Height and Weight Body Mass Index (BMI) 43.9 43.9 43.9 BMI Classification Obese Obese Obese Vital Signs Temperature (97.8 F-99.1 F) 97.2 F L 97.3 F L Temperature Source Temporal Temporal Pulse Rate (60-100) 76 81 82 Pulse Location Monitor Monitor Respiratory Rate (12-18) 18 16 18 Respiratory rate source Observation Observation Oxygen Delivery Method Room Air Blood Pressure (90/60-120/80) 177/78 H 151/68 H 123/47 H Blood Pressure Mean (mm Hg) 111 95 72 Source Monitor Monitor Position Sitting Semi-Fowlers Blood Pressure Location Right Arm Left Arm History Since Last Visit- (Skip if this is Patient's initial visit) Have you changed medications since your No No last visit? Any new allergies or adverse reactions No No Had a fall/change in ADL's that may No No increase risk of falls Signs or symptoms of abuse and/or No No neglect since last visit Have you been in the hospital since your No No last visit? Has dressing in place as prescribed Yes Has compression in place as prescribed N/A N/A Has offloadiing in place as prescribed N/A N/A Experienced any changes in pain level or No No management Left Footwear Diabetic Shoe Regular Shoe Right Footwear Diabetic Shoe Regular Shoe Pain Scale: 0-10 Numeric Is Patient Pain Free? Yes Yes Yes 06/27/22 06/29/22 07/01/22 08:14 12:55 13:59 WC - Today's Visit Information Type of service Nurse-only Nurse-only Nurse-only Visit Visit Visit Type of service (Other) Arrival Mode Ambulatory Ambulatory Ambulatory Transfer Assistance None None None Patient Identification Verified (Name & Yes Yes Yes ) Patient Requires Transmission-Based No No No Precautions Safety Precautions Finger Stick Blood Sugar(mg/dl) (if indicated): Blood Sugar Height and Weight Body Mass Index (BMI) 43.9 43.9 43.9 BMI Classification Obese Obese Obese Vital Signs Temperature (97.8 F-99.1 F) 96.7 F L 98.9 F 97.2 F L Temperature Source Temporal Temporal Temporal Pulse Rate (60-100) 80 91 79 Pulse Location Monitor Monitor Monitor Respiratory Rate (12-18) 20 H 18 20 H Respiratory rate source Observation Observation Observation Oxygen Delivery Method Room Air Blood Pressure (90/60-120/80) 133/54 H 144/63 H 132/68 H Blood Pressure Mean (mm Hg) 80 90 89 Source Monitor Monitor Monitor Position Sitting Blood Pressure Location Right Arm History Since Last Visit- (Skip if this is Patient's initial visit) Have you changed medications since your No No last visit? Any new allergies or adverse reactions No No Had a fall/change in ADL's that may No No increase risk of falls Signs or symptoms of abuse and/or No No neglect since last visit Have you been in the hospital since your No No last visit? Has dressing in place as prescribed Yes Yes Has compression in place as prescribed N/A N/A Has offloadiing in place as prescribed N/A N/A Experienced any changes in pain level or No No management Left Footwear Diabetic Shoe Right Footwear Diabetic Shoe Pain Scale: 0-10 Numeric Is Patient Pain Free? Yes Yes Yes 07/06/22 07/13/22 08:50 08:33 WC - Today's Visit Information Type of service Follow-up Visit Follow-up Visit (Physician/CROP OR GRAIN FARMWORKER (Physician/CROP OR GRAIN FARMWORKER ) ) Type of service (Other) Arrival Mode Ambulatory Ambulatory Transfer Assistance None None Patient Identification Verified (Name & Yes Yes ) Patient Requires Transmission-Based No No Precautions Safety Precautions Finger Stick Blood Sugar(mg/dl) (if 152 174 indicated): Blood Sugar Stated by Stated by Patient Patient Height and Weight Body Mass Index (BMI) 43.9 43.9 BMI Classification Obese Obese Vital Signs Temperature (97.8 F-99.1 F) 97.6 F L 98.1 F Temperature Source Temporal Temporal Pulse Rate (60-100) 88 85 Pulse Location Monitor Monitor Respiratory Rate (12-18) 20 H 20 H Respiratory rate source Observation Oxygen Delivery Method Blood Pressure (90/60-120/80) 119/48 L 117/57 L Blood Pressure Mean (mm Hg) 71 77 Source Monitor Monitor Position Blood Pressure Location History Since Last Visit- (Skip if this is Patient's initial visit) Have you changed medications since your No No last visit? Any new allergies or adverse reactions No No Had a fall/change in ADL's that may No No increase risk of falls Signs or symptoms of abuse and/or No No neglect since last visit Have you been in the hospital since your No No last visit? Has dressing in place as prescribed Yes Yes Has compression in place as prescribed N/A N/A Has offloadiing in place as prescribed N/A N/A Experienced any changes in pain level or No management Left Footwear Right Footwear Pain Scale: 0-10 Numeric Is Patient Pain Free? Yes Yes WC - Nurse 1 - General Ulcer Measurement Start: 06/20/22 08:26 Freq: Status: Active Protocol: Activity Type Activity Date Activity User E-sign Co-sign Detail Recorded Client Recorded Date Recorded By Document 06/20/22 08:27 PL [id number] 06/20/22 08:33 PL Document 06/22/22 11:48 BMF [id number] 06/22/22 11:52 BMF Document 06/24/22 13:13 JF [id number] 06/24/22 13:15 JF Document 06/27/22 08:14 DL [id number] 06/27/22 08:26 DL Document 06/29/22 12:55 BMF [id number] 06/29/22 12:58 BMF Document 07/01/22 13:59 DL [id number] 07/01/22 14:02 DL Document 07/06/22 08:50 DL [id number] 07/06/22 09:40 DL Document 07/13/22 08:33 DL [id number] 07/13/22 08:37 DL 06/20/22 06/22/22 06/24/22 08:27 11:48 13:13 Wound Center Nurse 1 #5- STERNUM cluster -Combined with other wound No No No -Current Size (cm) - Length 1.5 2.4 3.2 -Current Size (cm) - Width 1.5 1.5 2.0 -Current Size (cm) - Depth 1.0 0.5 0.5 -Total Square Cm 2.25 3.60 6.40 -Date of Last Picture (Recall this 06/22/22 field) -Photo Taken No Yes No -Epithelialization Large 67-100% Small 1-33% Small 1-33% -Tunneling No No -Undermining/Tunneling No -Circular Undermining No No -Exudate Amt Medium Small Small -Exudate Type Serosanguineous Serosanguineous Serosanguineous -Wound Margin Distinct, Flat & Intact Outline Attached -Granulation Amt Medium (34-66%) Medium (34-66%) Large (67-100%) -Granulation Quality Pale,[place] Red Red -Slough/Fibrin Yes Yes -Necrosis Amt Medium (34-66%) Medium (34-66%) Small (1-33%) -Necrotic Tissue Type Adherent Slough Adherent Slough Adherent Slough -Structure Exposed N/A -Texture (Fiona-wound Skin Appearance) Excoriation, Assessed Scarring,Rash -Moisture (Fiona-wound Skin Appearance) Assessed Assessed,Dry/ Scaly -Color (Fiona-wound Skin Appearance) Assessed, Assessed Erythema -Temperature (Fiona-wound Skin No Abnormality No Abnormality Appearance) (Pt Warm) (Pt Warm) -Tenderness on Palpation (Fiona-wound No No Skin Appearance) -Ulcer Cleansing Soap and Water Soap and Water Wound Cleanser -Foul Odor after Cleansing No No No -Anesthetic Used 5% Lidocaine Gel Lower Limb Edema Present NA 06/27/22 06/29/22 07/01/22 08:14 12:55 13:59 Wound Center Nurse 1 #5- STERNUM cluster -Combined with other wound No -Current Size (cm) - Length 1.9 -Current Size (cm) - Width 1.9 -Current Size (cm) - Depth 0.4 -Total Square Cm 3.61 -Date of Last Picture (Recall this field) -Photo Taken -Epithelialization Small 1-33% -Tunneling -Undermining/Tunneling -Circular Undermining -Exudate Amt Small Small None Present -Exudate Type Serosanguineous Serosanguineous Serosanguineous -Wound Margin Distinct, Distinct, Distinct, Outline Outline Outline Attached Attached Attached -Granulation Amt Large (67-100%) Large (67-100%) -Granulation Quality [place] Pale,[place] -Slough/Fibrin -Necrosis Amt Small (1-33%) Small (1-33%) -Necrotic Tissue Type Adherent Slough Adherent Slough -Structure Exposed N/A N/A -Texture (Fiona-wound Skin Appearance) Scarring Assessed Scarring -Moisture (Fiona-wound Skin Appearance) No Abnormality Assessed No Abnormality -Color (Fiona-wound Skin Appearance) No Abnormality Assessed, No Abnormality Erythema -Temperature (Fiona-wound Skin No Abnormality No Abnormality No Abnormality Appearance) (Pt Warm) (Pt Warm) (Pt Warm) -Tenderness on Palpation (Fiona-wound No No Skin Appearance) -Ulcer Cleansing Soap and Water Soap and Water Soap and Water -Foul Odor after Cleansing No No No -Anesthetic Used Lower Limb Edema Present 07/06/22 07/13/22 08:50 08:33 Wound Center Nurse 1 #5- STERNUM cluster -Combined with other wound -Current Size (cm) - Length 1.4 4 -Current Size (cm) - Width 0.8 1 -Current Size (cm) - Depth 0.1 0.3 -Total Square Cm 1.12 4 -Date of Last Picture (Recall this field) -Photo Taken Yes Yes -Epithelialization -Tunneling -Undermining/Tunneling -Circular Undermining -Exudate Amt Small Medium -Exudate Type Serosanguineous Serosanguineous -Wound Margin Distinct, Distinct, Outline Outline Attached Attached -Granulation Amt Medium (34-66%) Medium (34-66%) -Granulation Quality [place] Pale,[place] -Slough/Fibrin -Necrosis Amt Medium (34-66%) Medium (34-66%) -Necrotic Tissue Type Adherent Slough Adherent Slough -Structure Exposed N/A N/A -Texture (Fiona-wound Skin Appearance) Scarring Scarring -Moisture (Fiona-wound Skin Appearance) No Abnormality No Abnormality -Color (Fiona-wound Skin Appearance) No Abnormality No Abnormality -Temperature (Fiona-wound Skin No Abnormality No Abnormality Appearance) (Pt Warm) (Pt Warm) -Tenderness on Palpation (Fiona-wound No No Skin Appearance) -Ulcer Cleansing Soap and Water Soap and Water -Foul Odor after Cleansing No No -Anesthetic Used 4% Lidocaine 5% Lidocaine Solution Gel Lower Limb Edema Present WC - Nurse 2 - General Ulcer CM Notes Start: 06/20/22 08:26 Freq: Status: Active Protocol: Activity Type Activity Date Activity User E-sign Co-sign Detail Recorded Client Recorded Date Recorded By Document 07/06/22 09:15 REID [id number] 07/06/22 09:16 JF Document 07/13/22 09:09 REID [id number] 07/13/22 09:10 REID 07/06/22 07/13/22 09:15 09:09 Wound Center Nurse 2 #5- STERNUM cluster -Time 09:15 09:09 -Correct Patient Yes Yes -Correct Side, Site, Position Yes Yes -Correct Procedure Yes Yes -Procedure Performed Yes Yes -Type of Procedure Debridement Debridement -Clinical Debridement Subcutaneous Subcutaneous -Tissue Removed Subcutaneous Subcutaneous -Post Debridement (cm) - Length 3.6 4.0 -Post Debridement (cm) - Width 1.9 1 -Post Debridement (cm) - Depth 0.4 0.4 -Total Square (Post) (cm) 6.84 4.0 -Area of Debridement (cm) - Length 3.6 4 -Area of Debridement (cm) - Width 1.9 1 -Total Square (Area) (cm) 6.84 4 -Tunneling No No -Undermining/Tunneling No No -Circular Undermining No No -Wound/Ulcer Outcome Not Healed Not Healed -Ulcer Cleansing Rinsed/ Rinsed/ Irrigated with Irrigated with Saline Saline -Foul Odor after Cleansing No No -Bioengineered Tissue No No -Bleeding Controlled with Pressure Pressure -Treatment Response Procedure Procedure Tolerated Well Tolerated Well -Offloading No No -Debridement - Subq, 1st 20sq cm Yes Yes Pain Scale: 0-10 Numeric Is Patient Pain Free? Yes Yes - Nurse 3 - General Ulcer D/C NN Start: 06/20/22 08:26 Freq: Status: Active Protocol: Activity Type Activity Date Activity User E-sign Co-sign Detail Recorded Client Recorded Date Recorded By Document 06/20/22 08:50 PL [id number] 06/20/22 08:51 PL Document 06/22/22 12:29 [id number] 06/22/22 12:30 JF Document 06/24/22 13:13 JF [id number] 06/24/22 13:15 JF Document 06/27/22 08:26 DL [id number] 06/27/22 08:28 DL Document 06/29/22 12:55 [facility] [id number] 06/29/22 12:58 BMF Document 07/01/22 13:59 DL [id number] 07/01/22 14:02 DL Document 07/06/22 09:38 AK [id number] 07/06/22 09:39 AK Document 07/13/22 09:20 AK [id number] 07/13/22 09:20 AK 06/20/22 06/22/22 06/24/22 08:50 12:29 13:13 Wound Care Center Nurse 3 #5- STERNUM cluster -Ulcer Cleansing Soap and Water Rinsed/ Soap and Water Irrigated with Saline -Foul Odor after Cleansing No No -Negative Pressure Wound Therapy Continue Continue Continue -Setting (mmHg) 150 150 150 -Negative Pressure is Continuous Continuous Continuous -Primary Dressing Applied -Other Dressing -NPWT Application Charge NPWT </= 50 sq NPWT & NPWT </= 50 sq cm ($) Debridement (nc cm ($) ) -Aquacel AG 2x2 -Aquacel Rope -Mepilex Border Treatment Response Procedure Tolerated Well Vital Signs Temperature (97.8 F-99.1 F) 97.3 F L Temperature Source Temporal Pulse Rate (60-100) 82 Pulse Location Monitor Respiratory Rate (12-18) 18 Respiratory rate source Observation Oxygen Delivery Method Blood Pressure (90/60-120/80) 123/47 H Blood Pressure Mean (mm Hg) 72 Source Monitor Position Semi-Fowlers Blood Pressure Location Left Arm Pain Scale: 0-10 Numeric Is Patient Pain Free? Yes Yes Yes WC - Visit Discharge Discharge Condition Stable Stable Stable Ambulatory Status Ambulatory Ambulatory Ambulatory Transportation Private Auto Private Auto Private Auto Medication Reconcilliation completed & No Yes provided to patient/care provider Clinical Summary of Care Provided Yes Yes Notes: 06/27/22 06/29/22 07/01/22 08:26 12:55 13:59 Wound Care Center Nurse 3 #5- STERNUM cluster -Ulcer Cleansing Soap and Water Soap and Water Soap and Water -Foul Odor after Cleansing No No No -Negative Pressure Wound Therapy Continue Continue Continue -Setting (mmHg) 150 150 150 -Negative Pressure is Continuous Continuous Continuous -Primary Dressing Applied -Other Dressing APPLIED PER RB RN -NPWT Application Charge NPWT </= 50 sq NPWT </= 50 sq NPWT </= 50 sq cm ($) cm ($) cm ($) -Aquacel AG 2x2 -Aquacel Rope -Mepilex Border Treatment Response Procedure Procedure Procedure Tolerated Well Tolerated Well Tolerated Well Vital Signs Temperature (97.8 F-99.1 F) 98.9 F 97.2 F L Temperature Source Temporal Temporal Pulse Rate (60-100) 91 79 Pulse Location Monitor Monitor Respiratory Rate (12-18) 18 20 H Respiratory rate source Observation Observation Oxygen Delivery Method Room Air Blood Pressure (90/60-120/80) 144/63 H 132/68 H Blood Pressure Mean (mm Hg) 90 89 Source Monitor Monitor Position Sitting Blood Pressure Location Right Arm Pain Scale: 0-10 Numeric Is Patient Pain Free? Yes Yes Yes WC - Visit Discharge Discharge Condition Stable Stable Stable Ambulatory Status Ambulatory Ambulatory Ambulatory Transportation Private Auto Private Auto Private Auto Medication Reconcilliation completed & provided to patient/care provider Clinical Summary of Care Provided Notes: F/U wed with Taylor Trotter. 07/06/22 07/13/22 09:38 09:20 Wound Care Center Nurse 3 #5- STERNUM cluster -Ulcer Cleansing Rinsed/ Rinsed/ Irrigated with Irrigated with Saline Saline -Foul Odor after Cleansing No No -Negative Pressure Wound Therapy N/A N/A -Setting (mmHg) -Negative Pressure is -Primary Dressing Applied Aquacel Rope, Aquacel AG 2x2, Mepilex Border Mepilex Border -Other Dressing -NPWT Application Charge -Aquacel AG 2x2 1 -Aquacel Rope 1 -Mepilex Border 1 1 Treatment Response Vital Signs Temperature (97.8 F-99.1 F) Temperature Source Pulse Rate (60-100) Pulse Location Respiratory Rate (12-18) Respiratory rate source Oxygen Delivery Method Blood Pressure (90/60-120/80) Blood Pressure Mean (mm Hg) Source Position Blood Pressure Location Pain Scale: 0-10 Numeric Is Patient Pain Free? Yes Yes WC - Visit Discharge Discharge Condition Stable Stable Ambulatory Status Ambulatory Ambulatory Transportation Private Auto Private Auto Medication Reconcilliation completed & Yes Yes provided to patient/care provider Clinical Summary of Care Provided Yes Yes Notes: 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: CODE(S): L98.492 - Non-pressure chronic ulcer of skin of other sites with fat layer exposed (2) Type 2 diabetes mellitus: CODE(S): E11.9 - Type 2 diabetes mellitus without complications (3) History of coronary artery bypass graft: CODE(S): Z95.1 - Presence of aortocoronary bypass graft (4) ESRD (end stage renal disease) on dialysis: CODE(S): N18.6 - End stage renal disease; Z99.2 - Dependence on renal dialysis (5) Hypertension: CODE(S): I10 - Essential (primary) hypertension PLAN: Plan Patient evaluated at the wound healing center. His cardiothoracic surgeon office transferred his wound care to the wound center. Wound care - Aquacel-Ag wicked into the base of the ulcer cluster topped with [place] SAP daily after washing with soap and water. Wound culture obtained on 07/06/22 which was positive for MSSA, Coag negative staph, and Klebsiella oxytoca. He has a PCN allergy so started him on Bactrim and Doxycycline. Encouraged patient to eat a high protein, low sodium, low carbohydrate diet. Continue dialysis as scheduled on . Follow up one week.
[2022-07-20 08:42] VITALS: BP 159/72; PULSE 80; TEMP 36.2; BMI 43.9
--- NOTE | 2022-07-20 10:24 | PCM.WC.PN ---
History of Present Illness Date of Service: 07/20/22 Chief Complaint: Left leg ulcer History of Wound: This 61-year-old male with multiple comorbidities presents to the wound healing center for an ulcer on his mid sternum after CABG 01/11. He states that he had an PR while receiving dialysis and was transferred to [facility] where he had bypass surgery. He was discharged to [facility] for rehab. He was then readmitted to [facility] for fluid on his lungs. He said that he is not sure when the incision dehiscence occurred. He states he is receiving an antibiotic on the days he has dialysis. He is unsure of the antibiotic but it is for 6 weeks. He was referred to us for wound VAC changes and wound care. Patient has an extensive history of CAD, CABG, T2D, ESRD - on dialysis T--Mon, on Warfarin, CHF, HTN, Afib. He is a very poor historian. His wound has been managed by his cardiothoracic surgeon's practice until now. He has had a wound VAC since February 2022. He comes here today for evaluation and treatment of his healing sternal ulcer. Wound culture obtained on 07/06/22 which was positive for MSSA, Coag negative staph, Klebsiella oxytoca. He was started on Bactrim and Doxycycline to treat the organisms. Patient denies fever, chills, nausea, vomiting or diarrhea. Progress of Wound: Midsternal ulcer cluster is still present. The inferior portion of the ulcer is almost healed. The superior portion of the ulcer is stable. Objective Data Objective Data Vital Signs: Vital Signs Temp Pulse Resp BP O2 Del Method 97.1 F L 80 20 H 159/72 H Room Air 07/20/22 08:42 07/20/22 08:42 07/13/22 08:33 07/20/22 08:42 06/29/22 12:55 Oxygen Delivery Method Room Air Weight: 289 lb Body Mass Index (BMI) 43.9 Lab / Micro Data Micro: Microbiology 07/06/22 Unknown Wound Abcess - Chest Gram Stain - Final 07/06/22 Unknown Wound Abcess - Chest Wound Culture - Final Staphylococcus aureus Coag Negative Staph Klebsiella oxytoca 07/06/22 Unknown Wound Abcess - Chest Anaerobic Culture - Final No anaerobic bacteria isolated. Charges/Coding Procedures Integumentary [id number]: [id number] Ingrid subq tissue 20 sq cm/< Debridement Note Debridement Note Wound debrided: midsternal chest ulcer cluster Type of Debridement: Excisional debridement Anesthesia Used: 5% Lidocaine Gel Depth: Down to and including healthy tissue and in the subcutaneous layer Percentage of wound debrided: 100 Instrument Used: 3mm curette Tissue Removed: Devitalized tissue and slough Severity: Fat Layer Exposed Amount of bleeding with debridement: Mild Bleeding Controlled with: Pressure and Compression and gauze Patient tolerated procedure: Patient tolerated procedure well Post-Debridement Measurements and Additional Note: Post-Debridement Measurements/Treatment - Nurse 1 - General Ulcer Assessment Start: 06/20/22 08:26 Freq: Status: Active Protocol: ROSS Activity Type Activity Date Activity User E-sign Co-sign Detail Recorded Client Recorded Date Recorded By Document 06/20/22 08:27 PL [id number] 06/20/22 08:33 PL Document 06/22/22 11:48 [id number] 06/22/22 11:52 [facility] Document 06/24/22 13:13 JF [id number] 06/24/22 13:15 JF Document 06/27/22 08:14 DL [id number] 06/27/22 08:26 DL Document 06/29/22 12:55 BMF [id number] 06/29/22 12:58 BMF Document 07/01/22 13:59 DL [id number] 07/01/22 14:02 DL Document 07/06/22 08:50 DL [id number] 07/06/22 09:40 DL Document 07/13/22 08:33 DL [id number] 07/13/22 08:37 DL Document 07/20/22 08:42 AK [id number] 07/20/22 08:44 AK 06/20/22 06/22/22 06/24/22 08:27 11:48 13:13 - Today's Visit Information Type of service Nurse-only Follow-up Visit Nurse-only Visit (Physician/GATE ATTENDANT Visit ),Nurse-only Visit Type of service (Other) MECHANICAL STRIPER MAY STOP IN & SEE Arrival Mode Ambulatory Ambulatory Ambulatory Transfer Assistance None None Patient Identification Verified (Name & Yes Yes Yes ) Patient Requires Transmission-Based No No No Precautions Safety Precautions NA Finger Stick Blood Sugar(mg/dl) (if indicated): Blood Sugar Height and Weight Body Mass Index (BMI) 43.9 43.9 43.9 BMI Classification Obese Obese Obese Vital Signs Temperature (97.8 F-99.1 F) 97.2 F L 97.3 F L Temperature Source Temporal Temporal Pulse Rate (60-100) 76 81 82 Pulse Location Monitor Monitor Respiratory Rate (12-18) 18 16 18 Respiratory rate source Observation Observation Oxygen Delivery Method Room Air Blood Pressure (90/60-120/80) 177/78 H 151/68 H 123/47 H Blood Pressure Mean (mm Hg) 111 95 72 Source Monitor Monitor Position Sitting Semi-Fowlers Blood Pressure Location Right Arm Left Arm History Since Last Visit- (Skip if this is Patient's initial visit) Have you changed medications since your No No last visit? Any new allergies or adverse reactions No No Had a fall/change in ADL's that may No No increase risk of falls Signs or symptoms of abuse and/or No No neglect since last visit Have you been in the hospital since your No No last visit? Has dressing in place as prescribed Yes Has compression in place as prescribed N/A N/A Has offloadiing in place as prescribed N/A N/A Experienced any changes in pain level or No No management Left Footwear Diabetic Shoe Regular Shoe Right Footwear Diabetic Shoe Regular Shoe Pain Scale: 0-10 Numeric Is Patient Pain Free? Yes Yes Yes 06/27/22 06/29/22 07/01/22 08:14 12:55 13:59 WC - Today's Visit Information Type of service Nurse-only Nurse-only Nurse-only Visit Visit Visit Type of service (Other) Arrival Mode Ambulatory Ambulatory Ambulatory Transfer Assistance None None None Patient Identification Verified (Name & Yes Yes Yes ) Patient Requires Transmission-Based No No No Precautions Safety Precautions Finger Stick Blood Sugar(mg/dl) (if indicated): Blood Sugar Height and Weight Body Mass Index (BMI) 43.9 43.9 43.9 BMI Classification Obese Obese Obese Vital Signs Temperature (97.8 F-99.1 F) 96.7 F L 98.9 F 97.2 F L Temperature Source Temporal Temporal Temporal Pulse Rate (60-100) 80 91 79 Pulse Location Monitor Monitor Monitor Respiratory Rate (12-18) 20 H 18 20 H Respiratory rate source Observation Observation Observation Oxygen Delivery Method Room Air Blood Pressure (90/60-120/80) 133/54 H 144/63 H 132/68 H Blood Pressure Mean (mm Hg) 80 90 89 Source Monitor Monitor Monitor Position Sitting Blood Pressure Location Right Arm History Since Last Visit- (Skip if this is Patient's initial visit) Have you changed medications since your No No last visit? Any new allergies or adverse reactions No No Had a fall/change in ADL's that may No No increase risk of falls Signs or symptoms of abuse and/or No No neglect since last visit Have you been in the hospital since your No No last visit? Has dressing in place as prescribed Yes Yes Has compression in place as prescribed N/A N/A Has offloadiing in place as prescribed N/A N/A Experienced any changes in pain level or No No management Left Footwear Diabetic Shoe Right Footwear Diabetic Shoe Pain Scale: 0-10 Numeric Is Patient Pain Free? Yes Yes Yes 07/06/22 07/13/22 07/20/22 08:50 08:33 08:42 WC - Today's Visit Information Type of service Follow-up Visit Follow-up Visit Follow-up Visit (Physician/GATE ATTENDANT (Physician/GATE ATTENDANT (Physician/GATE ATTENDANT ) ) ) Type of service (Other) Arrival Mode Ambulatory Ambulatory Ambulatory Transfer Assistance None None Patient Identification Verified (Name & Yes Yes Yes ) Patient Requires Transmission-Based No No No Precautions Safety Precautions NA Finger Stick Blood Sugar(mg/dl) (if 152 174 indicated): Blood Sugar Stated by Stated by Patient Patient Height and Weight Body Mass Index (BMI) 43.9 43.9 43.9 BMI Classification Obese Obese Obese Vital Signs Temperature (97.8 F-99.1 F) 97.6 F L 98.1 F 97.1 F L Temperature Source Temporal Temporal Temporal Pulse Rate (60-100) 88 85 80 Pulse Location Monitor Monitor Monitor Respiratory Rate (12-18) 20 H 20 H Respiratory rate source Observation Oxygen Delivery Method Blood Pressure (90/60-120/80) 119/48 L 117/57 L 159/72 H Blood Pressure Mean (mm Hg) 71 77 101 Source Monitor Monitor Monitor Position Blood Pressure Location History Since Last Visit- (Skip if this is Patient's initial visit) Have you changed medications since your No No No last visit? Any new allergies or adverse reactions No No No Had a fall/change in ADL's that may No No No increase risk of falls Signs or symptoms of abuse and/or No No No neglect since last visit Have you been in the hospital since your No No No last visit? Has dressing in place as prescribed Yes Yes Yes Has compression in place as prescribed N/A N/A N/A Has offloadiing in place as prescribed N/A N/A N/A Experienced any changes in pain level or No No management Left Footwear Regular Shoe Right Footwear Regular Shoe Pain Scale: 0-10 Numeric Is Patient Pain Free? Yes Yes Yes WC - Nurse 1 - General Ulcer Measurement Start: 06/20/22 08:26 Freq: Status: Active Protocol: Activity Type Activity Date Activity User E-sign Co-sign Detail Recorded Client Recorded Date Recorded By Document 06/20/22 08:27 PL [id number] 06/20/22 08:33 PL Document 06/22/22 11:48 BMF [id number] 06/22/22 11:52 BMF Document 06/24/22 13:13 JF [id number] 06/24/22 13:15 JF Document 06/27/22 08:14 DL [id number] 06/27/22 08:26 DL Document 06/29/22 12:55 BMF [id number] 06/29/22 12:58 BMF Document 07/01/22 13:59 DL [id number] 07/01/22 14:02 DL Document 07/06/22 08:50 DL [id number] 07/06/22 09:40 DL Document 07/13/22 08:33 DL [id number] 07/13/22 08:37 DL Document 07/20/22 08:42 AK [id number] 07/20/22 08:44 AK 06/20/22 06/22/22 06/24/22 08:27 11:48 13:13 Wound Center Nurse 1 #5- STERNUM cluster -Combined with other wound No No No -Current Size (cm) - Length 1.5 2.4 3.2 -Current Size (cm) - Width 1.5 1.5 2.0 -Current Size (cm) - Depth 1.0 0.5 0.5 -Total Square Cm 2.25 3.60 6.40 -Date of Last Picture (Recall this 06/22/22 field) -Photo Taken No Yes No -Epithelialization Large 67-100% Small 1-33% Small 1-33% -Tunneling No No -Undermining/Tunneling No -Circular Undermining No No -Change in Wound Grade/Stage -Exudate Amt Medium Small Small -Exudate Type Serosanguineous Serosanguineous Serosanguineous -Wound Margin Distinct, Flat & Intact Outline Attached -Granulation Amt Medium (34-66%) Medium (34-66%) Large (67-100%) -Granulation Quality Pale,[place] Red Red -Slough/Fibrin Yes Yes -Necrosis Amt Medium (34-66%) Medium (34-66%) Small (1-33%) -Necrotic Tissue Type Adherent Slough Adherent Slough Adherent Slough -Structure Exposed N/A -Texture (Fiona-wound Skin Appearance) Excoriation, Assessed Scarring,Rash -Moisture (Fiona-wound Skin Appearance) Assessed Assessed,Dry/ Scaly -Color (Fiona-wound Skin Appearance) Assessed, Assessed Erythema -Temperature (Fiona-wound Skin No Abnormality No Abnormality Appearance) (Pt Warm) (Pt Warm) -Tenderness on Palpation (Fiona-wound No No Skin Appearance) -Ulcer Cleansing Soap and Water Soap and Water Wound Cleanser -Foul Odor after Cleansing No No No -Anesthetic Used 5% Lidocaine Gel Lower Limb Edema Present NA 06/27/22 06/29/22 07/01/22 08:14 12:55 13:59 Wound Center Nurse 1 #5- STERNUM cluster -Combined with other wound No -Current Size (cm) - Length 1.9 -Current Size (cm) - Width 1.9 -Current Size (cm) - Depth 0.4 -Total Square Cm 3.61 -Date of Last Picture (Recall this field) -Photo Taken -Epithelialization Small 1-33% -Tunneling -Undermining/Tunneling -Circular Undermining -Change in Wound Grade/Stage -Exudate Amt Small Small None Present -Exudate Type Serosanguineous Serosanguineous Serosanguineous -Wound Margin Distinct, Distinct, Distinct, Outline Outline Outline Attached Attached Attached -Granulation Amt Large (67-100%) Large (67-100%) -Granulation Quality [place] Pale,[place] -Slough/Fibrin -Necrosis Amt Small (1-33%) Small (1-33%) -Necrotic Tissue Type Adherent Slough Adherent Slough -Structure Exposed N/A N/A -Texture (Fiona-wound Skin Appearance) Scarring Assessed Scarring -Moisture (Fiona-wound Skin Appearance) No Abnormality Assessed No Abnormality -Color (Fiona-wound Skin Appearance) No Abnormality Assessed, No Abnormality Erythema -Temperature (Fiona-wound Skin No Abnormality No Abnormality No Abnormality Appearance) (Pt Warm) (Pt Warm) (Pt Warm) -Tenderness on Palpation (Fiona-wound No No Skin Appearance) -Ulcer Cleansing Soap and Water Soap and Water Soap and Water -Foul Odor after Cleansing No No No -Anesthetic Used Lower Limb Edema Present 07/06/22 07/13/22 07/20/22 08:50 08:33 08:42 Wound Center Nurse 1 #5- STERNUM cluster -Combined with other wound No -Current Size (cm) - Length 1.4 4 3.8 -Current Size (cm) - Width 0.8 1 0.6 -Current Size (cm) - Depth 0.1 0.3 0.7 -Total Square Cm 1.12 4 2.28 -Date of Last Picture (Recall this 07/20/22 field) -Photo Taken Yes Yes Yes -Epithelialization -Tunneling No -Undermining/Tunneling No -Circular Undermining No -Change in Wound Grade/Stage No -Exudate Amt Small Medium Medium -Exudate Type Serosanguineous Serosanguineous Serosanguineous -Wound Margin Distinct, Distinct, Distinct, Outline Outline Outline Attached Attached Attached -Granulation Amt Medium (34-66%) Medium (34-66%) None Present (0 %) -Granulation Quality [place] Pale,[place] N/A -Slough/Fibrin Yes -Necrosis Amt Medium (34-66%) Medium (34-66%) Large (67-100%) -Necrotic Tissue Type Adherent Slough Adherent Slough Adherent Slough -Structure Exposed N/A N/A N/A -Texture (Fiona-wound Skin Appearance) Scarring Scarring Assessed, Scarring -Moisture (Fiona-wound Skin Appearance) No Abnormality No Abnormality No Abnormality, Assessed -Color (Fiona-wound Skin Appearance) No Abnormality No Abnormality No Abnormality, Assessed -Temperature (Fiona-wound Skin No Abnormality No Abnormality No Abnormality Appearance) (Pt Warm) (Pt Warm) (Pt Warm) -Tenderness on Palpation (Fiona-wound No No No Skin Appearance) -Ulcer Cleansing Soap and Water Soap and Water Rinsed/ Irrigated with Saline -Foul Odor after Cleansing No No No -Anesthetic Used 4% Lidocaine 5% Lidocaine 5% Lidocaine Solution Gel Gel Lower Limb Edema Present WC - Nurse 2 - General Ulcer CM Notes Start: 06/20/22 08:26 Freq: Status: Active Protocol: Activity Type Activity Date Activity User E-sign Co-sign Detail Recorded Client Recorded Date Recorded By Document 07/06/22 09:15 [id number] 07/06/22 09:16 Document 07/13/22 09:09 [id number] 07/13/22 09:10 Document 07/20/22 09:07 [id number] 07/20/22 09:09 07/06/22 07/13/22 07/20/22 09:15 09:09 09:07 Wound Center Nurse 2 #5- STERNUM cluster -Time 09:15 09:09 09:07 -Correct Patient Yes Yes Yes -Correct Side, Site, Position Yes Yes Yes -Correct Procedure Yes Yes Yes -Procedure Performed Yes Yes Yes -Type of Procedure Debridement Debridement Debridement -Clinical Debridement Subcutaneous Subcutaneous Subcutaneous -Tissue Removed Subcutaneous Subcutaneous Subcutaneous -Post Debridement (cm) - Length 3.6 4.0 1.0 -Post Debridement (cm) - Width 1.9 1 1.0 -Post Debridement (cm) - Depth 0.4 0.4 0.5 -Total Square (Post) (cm) 6.84 4.0 1.00 -Area of Debridement (cm) - Length 3.6 4 1.0 -Area of Debridement (cm) - Width 1.9 1 1.0 -Total Square (Area) (cm) 6.84 4 1.00 -Tunneling No No No -Undermining/Tunneling No No No -Circular Undermining No No No -Wound/Ulcer Outcome Not Healed Not Healed Not Healed -Ulcer Cleansing Rinsed/ Rinsed/ Rinsed/ Irrigated with Irrigated with Irrigated with Saline Saline Saline -Foul Odor after Cleansing No No No -Bioengineered Tissue No No No -Bleeding Controlled with Pressure Pressure Pressure -Treatment Response Procedure Procedure Procedure Tolerated Well Tolerated Well Tolerated Well -Offloading No No No -Debridement - Subq, 1st 20sq cm Yes Yes Yes Pain Scale: 0-10 Numeric Is Patient Pain Free? Yes Yes Yes WC - Nurse 3 - General Ulcer D/C NN Start: 06/20/22 08:26 Freq: Status: Active Protocol: Activity Type Activity Date Activity User E-sign Co-sign Detail Recorded Client Recorded Date Recorded By Document 06/20/22 08:50 PL [id number] 06/20/22 08:51 PL Document 06/22/22 12:29 JF [id number] 06/22/22 12:30 JF Document 06/24/22 13:13 JF [id number] 06/24/22 13:15 JF Document 06/27/22 08:26 DL [id number] 06/27/22 08:28 DL Document 06/29/22 12:55 BMF [id number] 06/29/22 12:58 BMF Document 07/01/22 13:59 DL [id number] 07/01/22 14:02 DL Document 07/06/22 09:38 AK [id number] 07/06/22 09:39 AK Document 07/13/22 09:20 AK [id number] 07/13/22 09:20 AK Document 07/20/22 09:15 DL [id number] 07/20/22 09:18 DL 06/20/22 06/22/22 06/24/22 08:50 12:29 13:13 Wound Care Center Nurse 3 #5- STERNUM cluster -Ulcer Cleansing Soap and Water Rinsed/ Soap and Water Irrigated with Saline -Foul Odor after Cleansing No No -Negative Pressure Wound Therapy Continue Continue Continue -Setting (mmHg) 150 150 150 -Negative Pressure is Continuous Continuous Continuous -Primary Dressing Applied -Other Dressing -NPWT Application Charge NPWT </= 50 sq NPWT & NPWT </= 50 sq cm ($) Debridement (nc cm ($) ) -Aquacel AG 2x2 -Aquacel Rope -Mepilex Border Treatment Response Procedure Tolerated Well Vital Signs Temperature (97.8 F-99.1 F) 97.3 F L Temperature Source Temporal Pulse Rate (60-100) 82 Pulse Location Monitor Respiratory Rate (12-18) 18 Respiratory rate source Observation Oxygen Delivery Method Blood Pressure (90/60-120/80) 123/47 H Blood Pressure Mean (mm Hg) 72 Source Monitor Position Semi-Fowlers Blood Pressure Location Left Arm Pain Scale: 0-10 Numeric Is Patient Pain Free? Yes Yes Yes WC - Visit Discharge Discharge Condition Stable Stable Stable Ambulatory Status Ambulatory Ambulatory Ambulatory Transportation Private Auto Private Auto Private Auto Medication Reconcilliation completed & No Yes provided to patient/care provider Clinical Summary of Care Provided Yes Yes Notes: 06/27/22 06/29/22 07/01/22 08:26 12:55 13:59 Wound Care Center Nurse 3 #5- STERNUM cluster -Ulcer Cleansing Soap and Water Soap and Water Soap and Water -Foul Odor after Cleansing No No No -Negative Pressure Wound Therapy Continue Continue Continue -Setting (mmHg) 150 150 150 -Negative Pressure is Continuous Continuous Continuous -Primary Dressing Applied -Other Dressing APPLIED PER RB RN -NPWT Application Charge NPWT </= 50 sq NPWT </= 50 sq NPWT </= 50 sq cm ($) cm ($) cm ($) -Aquacel AG 2x2 -Aquacel Rope -Mepilex Border Treatment Response Procedure Procedure Procedure Tolerated Well Tolerated Well Tolerated Well Vital Signs Temperature (97.8 F-99.1 F) 98.9 F 97.2 F L Temperature Source Temporal Temporal Pulse Rate (60-100) 91 79 Pulse Location Monitor Monitor Respiratory Rate (12-18) 18 20 H Respiratory rate source Observation Observation Oxygen Delivery Method Room Air Blood Pressure (90/60-120/80) 144/63 H 132/68 H Blood Pressure Mean (mm Hg) 90 89 Source Monitor Monitor Position Sitting Blood Pressure Location Right Arm Pain Scale: 0-10 Numeric Is Patient Pain Free? Yes Yes Yes WC - Visit Discharge Discharge Condition Stable Stable Stable Ambulatory Status Ambulatory Ambulatory Ambulatory Transportation Private Auto Private Auto Private Auto Medication Reconcilliation completed & provided to patient/care provider Clinical Summary of Care Provided Notes: F/U wed with Taylor Trotter. 07/06/22 07/13/22 07/20/22 09:38 09:20 09:15 Wound Care Center Nurse 3 #5- STERNUM cluster -Ulcer Cleansing Rinsed/ Rinsed/ Rinsed/ Irrigated with Irrigated with Irrigated with Saline Saline Saline -Foul Odor after Cleansing No No No -Negative Pressure Wound Therapy N/A N/A -Setting (mmHg) -Negative Pressure is -Primary Dressing Applied Aquacel Rope, Aquacel AG 2x2, Aquacel AG 2x2, Mepilex Border Mepilex Border Mepilex Border -Other Dressing -NPWT Application Charge -Aquacel AG 2x2 1 1 -Aquacel Rope 1 -Mepilex Border 1 1 1 Treatment Response Procedure Tolerated Well Vital Signs Temperature (97.8 F-99.1 F) Temperature Source Pulse Rate (60-100) Pulse Location Respiratory Rate (12-18) Respiratory rate source Oxygen Delivery Method Blood Pressure (90/60-120/80) Blood Pressure Mean (mm Hg) Source Position Blood Pressure Location Pain Scale: 0-10 Numeric Is Patient Pain Free? 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 His cardiothoracic surgeon office transferred his wound care to the wound center. Wound care - Aquacel-Ag wicked into the base of the ulcer cluster topped with [place] SAP daily after washing with soap and water. Wound culture obtained on 07/06/22 which was positive for MSSA, Coag negative staph, and Klebsiella oxytoca. He has a PCN allergy so started him on Bactrim and Doxycycline. Encouraged patient to eat a high protein, low sodium, low carbohydrate diet. Continue dialysis as scheduled on . Follow up one week.
== END 2022-07-20 23:59 | disposition home or self-care (01) ==
LOC: WC 08:45
PROVIDERS: PCP Internal Medicine; Visit Provider Nurse Practitioner Family
DX: T81.31XA Disruption of external operation (surgical) wound, not elsewhere classified, initial encounter (principal); I13.2 Hypertensive heart and chronic kidney disease with heart failure and with stage 5 chronic kidney disease, or end stage renal disease; E11.51 Type 2 diabetes mellitus with diabetic peripheral angiopathy without gangrene; L98.492 Non-pressure chronic ulcer of skin of other sites with fat layer exposed; Z99.2 Dependence on renal dialysis; I50.32 Chronic diastolic (congestive) heart failure; E11.22 Type 2 diabetes mellitus with diabetic chronic kidney disease; E11.42 Type 2 diabetes mellitus with diabetic polyneuropathy; N18.6 End stage renal disease; I48.91 Unspecified atrial fibrillation; Z79.4 Long term (current) use of insulin; Y83.2 Surgical operation with anastomosis, bypass or graft as the cause of abnormal reaction of the patient, or of later complication, without mention of misadventure at the time of the procedure; I25.10 Atherosclerotic heart disease of native coronary artery without angina pectoris; E78.00 Pure hypercholesterolemia, unspecified; I25.2 Old myocardial infarction; Z79.82 Long term (current) use of aspirin; Z79.01 Long term (current) use of 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; Z79.02 Long term (current) use of antithrombotics/antiplatelets; Z87.891 Personal history of nicotine dependence; Z95.1 Presence of aortocoronary bypass graft
CPT/HCPCS: 11042; 87070; 87075; 87077; 87186; 87205; 97605; 99213; G0463

== ENCOUNTER → 2022-07-29 | Outpatient (CLI) | payer MEDICARE, SELFPAY ==
--- NOTE | 2022-07-29 07:55 | CR.HP_ITS ---
CR - History & Physical - General Arrival date:: 07/29/22 Arrival time:: 08:00 Date of Referral:: 07/12/22 Date of CR Evaluation:: 07/29/22 Referring Physician: Dr. Lloyd ([facility]) Primary Diagnosis: S/p CABG - History of Present Cardiac Event Onset Date: Enter Onset Date of cardiac illnesses in Comment field below Acute Myocardial Infarction within 12 months:: Yes - SC at dialysis center taken by squad to ER Coronary Artery Bypass Graft:: Yes - 01/17/2022 quad bypass Type of Symptoms:: At dialysis center and started having chest pain. than began sweating reported it to the cassandra developer and they sent him by squad to the ER here at [facility], heart roving tester laboratory, and then transported to [facility] where his doctors are at. Interventions with present event:: taken to er and then to roving tester laboratory, later sent to [facility] for surgery for multi- Were there any complications?: Infection of wound (seeing wound center) - Sleep Disorder Evaluation Hx of Sleep Apnea: Yes Do you snore loudly (louder than talking or can be heard through closed doors)?: Yes Do you often feel tired/ fatigued/ sleepy during daytime?: No Has anyone observed you stop breathing during sleep?: No History of Hypertension (for STOP score): Yes - Lost his insurance had equipment taken back. Has not been able to get another unit to wear. STOP Results: Positive - Medications Home Medications: Ambulatory Orders Medication Instructions Recorded ascorbic acid (vitamin C) 1,000 mg 1,000 mg PO DAILY suppliment 12/02/16 tablet (Vitamin C) buspirone 10 mg tablet 10 mg PO BID depression 12/02/16 dicyclomine 20 mg tablet 20 mg PO TID IBS 12/02/16 venlafaxine 150 mg 150 mg PO DAILY depression 12/02/16 capsule,extended release 24 hr (Effexor XR) simethicone 80 mg chewable tablet 80 mg PO TID PRN PRN Indigestion 03/06/21 (Gas Relief (simethicone)) calcium acetate(phosphat bind) 667 1,334 - 2,001 mg PO TIDCM 03/07/21 mg capsule supplement atorvastatin 80 mg tablet 80 mg PO DAILY cholesterol 12/23/21 cinnamon bark 500 mg capsule 500 mg PO DAILY supplement 12/23/21 gabapentin 600 mg tablet 300 mg PO DAILY nerve pain 12/23/21 insulin NPH isoph U-100 human 100 5 unit subcut DAILY dm 12/23/21 unit/mL (3 mL) subcutaneous pen (Novolin N FlexPen) midodrine 10 mg tablet 10 mg PO TID bp 12/23/21 pyridoxine (vitamin B6) 50 mg 50 mg PO DAILY 12/23/21 tablet (Vitamin B-6) aspirin 81 mg tablet,delayed 81 mg PO BREAKFAST #30 tabs 12/27/21 release nitroglycerin 0.4 mg sublingual 0.4 mg sublingual Q5M PRN chest 12/30/21 tablet pain #25 tabs insulin NPH isoph U-100 human 100 18 unit subcut QHS DM 01/06/22 unit/mL (3 mL) subcutaneous pen (Novolin N FlexPen) isosorbide mononitrate 30 mg 30 mg PO DAILY HEART 01/06/22 tablet,extended release 24 hr pantoprazole 40 mg tablet,delayed 40 mg PO DAILY GERD 01/06/22 release amiodarone 200 mg tablet 200 mg PO DAILY 02/10/22 clopidogrel 75 mg tablet 75 mg PO DAILY 02/10/22 levofloxacin 500 mg tablet 500 mg PO DAILY 02/10/22 carvedilol 3.125 mg tablet 3.125 mg PO DAILY 05/09/22 nifedipine 90 mg tablet,extended 90 mg PO DAILY 05/09/22 release 24 hr sucroferric oxyhydroxide 500 mg 500 mg PO DAILY 05/09/22 chewable tablet (Velphoro) warfarin 3 mg tablet 9 mg PO DAILY 05/09/22 doxycycline hyclate 100 mg capsule 100 mg PO BID 14 days #28 caps 07/11/22 sulfamethoxazole 800 1 tab PO Q12H 14 days #28 tabs 07/20/22 mg-trimethoprim 160 mg tablet (Bactrim DS) atorvastatin 80 mg tablet (Lipitor) 80 mg PO DAILY 07/29/22 darbepoetin saji in polysorbat 40 40 mcg subcut QWEEK 07/29/22 mcg/0.4 mL in polysorbate injection syringe (Aranesp) dicyclomine 20 mg tablet 20 mg PO TID 07/29/22 gabapentin 600 mg tablet 600 mg PO BID 07/29/22 (Neurontin) glucagon 1 mg injection kit 1 mg PRN PRN Hypoglycemia 07/29/22 midodrine 5 mg tablet 20 mg PO TID 07/29/22 simethicone 80 mg chewable tablet 80 mg PO Q6H 07/29/22 sucroferric oxyhydroxide 500 mg 500 mg PO BID 07/29/22 chewable tablet (Velphoro) venlafaxine 150 mg 150 mg PO DAILY 07/29/22 capsule,extended release 24 hr (Effexor XR) - Allergies Allergies/Adverse Reactions: Allergies cephalexin Allergy (Verified 05/24/22 07:29) Hives Penicillins Allergy (Verified 05/24/22 07:29) Hives Advanced Directives - Advanced Directives Power of Roving Tester [facility]: No Living Will: No Advance Directives Information Provided: Yes Advance Directives on File: No DNR Order?:: No - MOLST See MOLST form: No Past Medical History - Covid-19 Screening Fever: No Unexplained muscle aches: No Current respiratory symptoms: No Upper respiratory infections symptoms: No Gastro-intestinal symptoms: No Roo-Ifdt-Qfebdj symptoms: No Has tested positive for COVID-19 in last 30 days: No Had contact w/person w/symptoms or Covid-19 (+) last 14 days: No Has High Risk Exposures ID'd by Health dept/Inf Control team: No 65 years or older:: No Lives in Assisted Living facility:: No Has a chronic lung disease or moderate to severe asthma:: No Has a serious heart condition:: Yes Immunocompromised:: No Severely obese (Body Mass Index of 40 or higher):: Yes Diabetic:: Yes Has chronic kidney disease undergoing dialysis:: Yes Has liver disease:: No - Past Medical Illness Medical History: Past Medical History (Last Reviewed 05/24/22 @ 07:52 by Francis Rushing) (HFpEF) heart failure with preserved ejection fraction I50.30 Acute exacerbation of CHF (congestive heart failure) I50.9 Snhyy-co-bnydlnv kidney injury N17.9, N18.9 Anemia D64.9 had transfusion 05/2020 Anxiety F41.9 on med Atrial fibrillation I48.91 Blackout R55 prior to dialysis and with COVID infecton Cardiology follow-up encounter Z09 saw dr Santana May 2021 at [facility]. Chest pain R07.9 05/2020 CHF (congestive heart failure) I50.9 05/2020 Chronic kidney failure N18.9 Chronic renal failure, stage 5 N18.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 L97.522 Colonization status Z22.9 Congestive heart failure (CHF) I50.9 Coronary artery disease I25.10 COVID U07.1 (+) 03/06/21, symptom-free since 03/23/21 CPAP (continuous positive airway pressure) dependence Z99.89 noncompliant Delayed wound healing T14.8XXD Depression F32.9 on med Diabetes mellitus type 2 in obese E11.69, E66.9 Dialysis catheter clot or failure 05/2020 right chest tunnelled dialysis catheter Diastolic CHF, acute I50.31 had chest pain with chf 05/2020 Dietary restriction Z71.3 ada Dupuytrens contracture M72.0 DVT (deep venous thrombosis) I82.409 superficial Edema of left lower leg due to peripheral venous insufficiency I87.2, R60.9 End stage renal disease N18.6 Equinus contracture of left ankle M24.572 ESRD (end stage renal disease) on dialysis N18.6, Z99.2 TUTHSA ESRD (end stage renal disease) on dialysis N18.6, Z99.2 Former smoker Z87.891 Gastric reflux K21.9 on med Hammer toe of left foot M20.42 Hemodialysis patient Z99.2 tuta High cholesterol E78.00 on med History of DVT of lower extremity Z86.718 History of edema Z87.898 History of IBS Z87.19 ON MED History of pain when walking Z87.898 History of renal disease Z87.448 ckd stage 4 History of stress test Z92.89 2 yrs ago at [facility] Hx of echocardiogram Z92.89 2020 Hypertension I10 Insulin dependent diabetes mellitus Loss of consciousness R40.20 fell after dialysis Loss of hearing H91.90 Malnutrition E46 Morbid obesity E66.01 NSTEMI (non-ST elevated myocardial infarction) I21.4 Other specified peripheral vascular diseases I73.89 Pressure ulcer L89.90 foot ulcer left Problem with dialysis access T82.898A Pulmonary hypertension I27.20 Renal failure, chronic N18.9 Shortness of breath on exertion R06.02 Spitting suture T81.30XA Syncope R55 with dialysis 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 Trigger finger M65.30 Type 2 diabetes mellitus E11.9 Type 2 diabetes mellitus with diabetic polyneuropathy E11.42 Ulcer of left lower extremity with fat layer exposed L97.922 Wears glasses Z97.3 - Past Surgical History Surgical History: Past Surgical History (Last Reviewed 05/24/22 @ 07:52 by Francis Rushing) History of arteriovenostomy for renal dialysis Onset Date: ~07/2020 Z99.2 History of carpal tunnel surgery of left wrist Z98.890 History of carpal tunnel surgery of right wrist Z98.890 History of colonoscopy Z98.890 x2 History of quadruple bypass Z95.1 01/11 History of surgery Z98.890 blood clots surgically removed from left leg, 1990 History of tonsillectomy and adenoidectomy Z98.890 Surgical History: noncontributory, - - carpal tunnel syndrom surgery - Family History Summary Family History: Family History (Last Reviewed 05/09/22 @ 13:02 by Meredith Aceves) Mother Diabetes Heart disease Hypertension Social History - Smoking History Smoking Status: Former smoker - Quit 22 years aago. 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 Recreational Activities: I am able to engage in most, but not all activities Social Environment - Status Marital Status: - Current Living Arrangements Living Environment:: Alone - Children How many children do you have?: 0 Do any of your children live nearby?: No - Safety Do you feel safe in your surroundings?: Yes Review of Systems - Review of Systems Hints: Right click = Denies (Slash). Left click = Reports ([place]) Review of Present Symptoms: Reports: Shortness of Breath at Rest, Shortness of Breath with Exertion, Fatigue, Appetite - Normal, Appetite - Special Diet - Try to eat healthier (eats out alot), Sleep - Normal. Denies: Wound Healing - Has infection in the incision seeing the Wound Center for treatrment, since being seen the wound has been healing, Dizziness/Lightheadedness, Heart Arrhythmia/Irregularities - Pain Is Patient Pain Free?: No Pain Location: lower extremity - Sole of feet pads on his feet are broken up and get very painful. 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 Risk Factor Assessment - Chief Complaint Chief Complaint: 62 yr old male patient of Dr. Lloyd who recently had bypass x 3 at [facility] following an SC (CRUZ-LAD, SVG-DIAG 1, SVG to PDA, LAAC and MAZE procedure on 01/17/2022 - Vital Signs Temperature: 97.6 F Respiratory Rate: 16 Pulse Ox: 98 Blood Pressure: 140/70 - Pulse Pulse Rate: 72 Pulse Rhythm: Regular - Hypertension How long have you been treated?: 12-15 years (more to keep BP increased) Blood Pressure Sitting - Left Arm: 140/70 - Blood Cholesterol/Lipids Total Cholesterol (mg/dL) Goal = less than 200 mg/dL: 100 HDL Cholesterol (mg/dL) Goal = less than 40 mg/dL: 32 LDL Cholesterol (mg/dL) Goal = less than 70 mg/dL: 51 Triglycerides (mg/dL) Goal = less than 150 mg/dL: 83 - Diabetes Diabetic History: Type II, Medication Dependent, Insulin Dependent Nutrition Referral for Diabetes: Yes - Obesity Height: 5 ft 8 in Weight:: 298 lb Weight in Pounds: 298.0 lbs Weight Source: Stated by Patient Body Mass Index (BMI): 45.3 Nutritional Referral for Obesity: Yes - Physical Inactivity Physical Inactivity: None - Risk Stratification Risk Guidelines: Lowest Risk: Risk Factor for Smoking, Risk Factor for Sedentary Lifestyle, Risk Factor for Depression, Moderate Risk: Risk Factor for Diabetes - Glucose 130, A1c 6.3, Highest Risk: Risk Factor for Obesity - BMI 45, Risk Factor for Hypertension - 140/70 H - Family History Family History: Family History (Last Reviewed 05/09/22 @ 13:02 by Meredith Aceves) Mother Diabetes Heart disease Hypertension Motivation - Motivation to Participate On a scale of 1 to 10, how prepared are you to commit to attending program?: 9 What do you see as barriers to successfully being able to complete the program?: feet (limited ambulation standing) What do you see as the benefits of succesfully completing the program? In other words, what do you hope to get out of participating in the program?: strength back Are there issues you are dealing with that will interfere with completing the program?: Dialysis 3 times/week Do you have a spouse or signficant other, family or friends who will help support you to complete the program?: friends
--- NOTE | 2022-07-29 07:55 | PCM.CR.ITP ---
Diagnosis - General Information Admitting Diagnosis: S/P CABG Secondary Diagnosis: HTN, DM, HLD, [place], Morbid Obesity Personal Learning Style:: Audio/Visual, Written Barriers to Learning: Vision Impairment Stage of change r/t lifestyle modifications:: Action Gave educational material for:: Treating Heart Disease, Emotions & Heart Disease, Stress Management & Relaxation, Sleep Disorders & Heart Disease, How The Heart Works, What it means to have Heart Disease, How Coronary Artery Disease is Diagnosed, Heart Procedures, What Heart Medications Do, Risk Factors & Modifications, Living an Active Life, Nutrition - Education/Goals Individual Counseling: Initial Assessment: Abnormal Cholesterol Levels, High Blood Pressure, Overweight/Obesity, Diabetes, A. Fasting Blood Sugar >100 - 130, B. Waist Circumference >35/Females >40/Males, Hypertension - 140/70, Low HDL <40/Males or <50/Females - 32 Cardiac Rehabilitation Goals: 1. Maintain the individual as the primary focus of care. 2. To improve the patient's quality of life. 3. Identification of cardiac risk factors and provide cardiac risk factor management. 4. Enhance the psychosocial status of the patient. 5. Reconditioning enough to allow the patient to resume customary activities. 6. Control symptoms of cardiac disease Personal Goals: Initial Assessment: Improve energy level, Participate in home exercise program, Get back to work, or to resume activities faster, Improve knowledge of cardiac disease, Improve muscle strength and endurance, Control risk factors (learn risk factor modification) Scale for measuring improvement of personal goals: Enter appropriate number in Comments. 2 = Unchanged. 3 = Slightly Better. 4 = Moderate Improvement. 5 = Met my Goal - Diagnosis & Disease Process Outcomes/Goals: Pt IDs own risk factors & lifestyle modifications by Session 10, Verbalizes symptoms of angina & response by session 3., Pt independently manages Plan/Interventions: Assist Pt to ID & engage in lifestyle modification to reduce CVD risk, Instruct on individual risk factors, Review symptoms of angina & emergency actions, Review secondary diagnosis & identify educational needs. - Safety Referral to Physical Therapy: No Referral to [facility] Case Management: No Fall Risk Assessed:: Yes Assistive Devices:: None Exercise - Initial Assessment - Visit Date of Eval: 07/29/22 Session #:: 0 - Pre-cardiac rehab evaluation Mets: Pre-: >7 METS for 30 minutes by discharge - Physician Prescribed Exercise Modalities: Treadmill, Airdyne, NuStep Frequency: 3x/week for 12 weeks [36 sessions] Intensity: 60-80% of age predicted maximum heart rate reserve Duration: 30 - 45 minutes Current METSs:: 3.0 Target Heart Rate:: 95-111 Resting Blood Pressure: 140/70 EKG Type: Noraml Sinus rhythm w/ ST adn T wave abnormalities - Outcomes & Goals Goals:: Verbalizes understanding of THR, RPE & goal METS by session 6, Documents in home exercise log/reports 30 min aerobic 5 day/wk by DC, Demonstrates accurate pulse taking by DC - Intervention & Plan Exercise Program Goals: Instruct on personal THR & RPE, Instruct on MET level & personal MET goal, Show patient to take own pulse /validate performance until accurate, Instruct on home exercise - Physical Activity Home Exercise Physical Activity - Home Exercise: Safe Exercise, Warm-up, Self-monitoring, Cool-Down, Home Exercise > 30 min Daily, Sitting Time <3 hours/daily - Outcomes & Goals Outcomes/Goals: Demonstrates correct Warm-up/exercise Cool-Down (S3) if = 2.5 METs, Verbalizes symptoms of exercise intolerance by Session 3 (S3), Demonstrate safe equipment use (S3) & follows exercise prescrition (6) - Intervention & Plan Plan/Intervention: Instruct warm-up & cool-down if exercising at > 2 METs, Instruct on symptoms of exercise intolerance & actions to take, Instruct & monitor on saf, Assess intial functional capacity & safety risk Nutrition - Initial Assessment - Program Goals Nutrition Program Goals: LDL <100 optimal. 100 - 129 Near optimal. 130 - 159 Borderline High. 160 - 189 High. Total Cholesterol <200 desirable. 200 - 239 Borderline High. >/= 240 High. HDL < 40 Low >/=60 High. Triglycerides <150 desirable. <199 optimal. VlDL 5 - 40. HgbA1C <7%. BMI <25 Patient has diagnosis of Hyperlipidemia (ICD E78)?: Yes - Visit Date of Assessment:: 07/29/22 Session #:: 0 - Pre-cardai rehab evaluation - Cholesterol/Lipids (Other Core Measures) Triglycerides (mg/dL): 83 Total Cholesterol (mg/dL): 100 LDL Cholesterol (mg/dL): 51 HDL Cholesterol (mg/dL): 32 Determine presence & major risk factors that modify LDL goal: Hypertension or hypertensive medication, Low HDL cholesterol <40 mg/dL*, Family history of premature CHD in Male < 55 years: female <65 yearsFa, Age men > 45 years; women >/= 55 years Outcomes/Goals: Pt IDs own risk factors & lifestyle modifications by Session 10, Verbalizes symptoms of angina & response by session 3., Pt independently manages Intervention/Plan: Instruct on personal lipid levels & lipid goals/NCEP guidelines, Instruct on cholesterol Referral to dietitian:: Yes - Medical Nutrition Therapy - Diabetes (Other Core Measures) Diabetes Type: Diagnosis Type II ICD-10 E11 Fasting blood glucose:: 130 Hgb A1C (4.2 - 6.3): 6.3 Insulin dependent injection/pump?: Yes Non-Insulin Dependent?: Yes Do you monitor your blood sugar at home?: Yes Referral to Diabetic Clinic:: Yes Outcomes/Goals:: Able to state symptoms of, Able to state, Able to state Intervention/Plan:: Instruct on, Refer to, Instruct on - Weight Mgt (Other Care) Not Applicable: No Height: 5 ft 8 in Weight:: 298 lb BMI: 45.3 Diagnosis Overweight/Obesity BMI> 30% ICD-10 E66: Yes Diagnosis High BMI/Morbid Obesity BMI> 35% ICD-10 Z68: Yes Outcomes/Goals: Pt sets, maintains & shows weight loss goal & trend during rehab Intervention/Plan: Instruct on ideal BMI & set weight loss goal w/patient, Assist pt to ID & incorporate diet changes for weight loss by S9, Refer to Structured Weight Loss program as appropriate, Encourage goal of using 250-300dcal per session for weight loss - Healthy Eating Habits Will attend diet classes:: Yes Outcomes/Goals:: Consume diet rich in vegs,fruits,whole grain/high fiber,fish,lean meat, Limit sat/trans fats,cholesterol & added salts & sugars Intervention/Plan:: Assess current eating habits - Education Gave educational materials for:: Signs & symptoms of hypoglycemia, Signs & symptoms of hyperglycemia, Relate diabetes to coronary artery disease, Healthy eating Nutrition - 30-Day Assessment Nutrition - 60-Day Assessment Nutrition - 90-Day Assessment Nutrition - Final Assessment Core - Initial Assessment - Visit Date of Eval: 07/29/22 Session #:: 0 - Pre-cardiac rehab evaluation - Medication Compliance Preventative Medication(s):: Aspirin, SRINIVASA inhibitor, Statin/lipid, Beta ashlee, Warfarin/Coumadin H/O mental health issues: depression, anxiety, or addiction?: No Doesn?t believe in the benefits of treatment?: No Believes medications are unnecessary or harmful?: No Has a concern about medication side effects?: No Expresses concern over the cost of medications?: No Outcomes/Goals: Verbalizes medications,desired effect & common side effects @ DC, Pt self-reports following medication regimen, Keeps card in wallet w/medications listed by DC Interventions/plans: Instruct on medication effects & side effects, Review medication list w/patient every two weeks, Instruct importance of taking meds as ordered & assist problem solving - Tobacco Use Tobacco Use: Non-smoker - Hypertension Hypertension Diagnosis:: Hypertension ICD-10 I10 Resting Blood Pressure:: 140/70 - high [place] [employer] Hypertension Guidelines: [place] [employer] Hypertension Guidelines. Normal BP Less than 120/80. Elevated BP 120/80. Hypertension Stage 1: BP 130-139/80-89. Hypertesnion Stage 2: BP 140 or higher/90 or higher. Hypertension Crisis: BP higher than 180/120 Outcomes/Goals: Able to verbalize/achieve optimal blood pressure <130/80, Incorporates diet changes & exercise for blood pressure control by DC Interventions/plan: Instruct on optimal blood pressure, hypertension & medications, Instruct on effects of sodium, alcohol, stress, exercise &hypertension - Tobacco Cessation Referral Smoking Cessation Referral:: No Individual Education/Counseling:: No Education Schedule Given:: Yes Core - 30-Day Assessment Core - 60-Day Assessment Core - 90 Day Assessment Core - Final Assessment Psychosocial - Initial Assess - VIsit Date of Eval: 07/29/22 Session #:: 0 - pre-cardaic rehab evaluation Not Applicable: Yes History of previous Mental disease:: No - Psychosocial Test Tool Used:: Thierno Regan QOL Cardiac, PHQ-9 Questionnaire phq-9 Severity: Severity. 1-4 Minimal Depression. 5-9 Mild Depression. 10-14 Moderate Depression. 15-19 Moderately Sever Depression. 20-27 Severe Depression. Rule: - Referral to Behavioral Health PS - Interventions: Yes Attend Stress Management Classes, No Referral to Behavioral Health if PHQ-9 score >9:, No Referral to [facility], No Referral to Physician if PHQ-9 if score is 5-9: - Outcomes/Goals: See list Psychosocial Outcomes/Goals:: ID's personal stressors & 2 strategies to manage stress by discharge - Intervention/Plan: See List Interventions/Plan:: Assess stressors,coping strategies & signs of derpression on admission, Instruct/assist pt to develop coping & personal stress Mgt strategies, Instruct patient to recognize signs & symptoms of depression, Instruct patient to recog Psychosocial - 30-Day Assess Psychosocial - 60-Day Assess Psychosocial - 90-Day Assess Psychosocial - Final Assessmen Patient Health Questionnaire Initial Assessment 1. Little interest or pleasure in doing things: More than half the days 2. Feeling down, depressed, or hopeless: More than half the days 3. Trouble falling or staying asleep, or sleeping too much: Not at all 4. Feeling tired or having little energy: More than half the days 5. Poor appetite or overeating: Not at all 6. Feeling bad about yourself -- or that you are a failure or have let yourself or your family down: Several days 7. Trouble concentrating on things, such as reading the newspaper or watching television: Not at all 8. Moving or speaking so slowly that other people could have noticed. Or the opposite - being so fidgety or restless that you have been moving around a lot more than usual: Not at all 9. Thoughts that you would be better off , or of hurting yourself in some way: Not at all How difficult have these problems made it for you to do your work, take care of things at home, or get along with other people?: Somewhat difficult Total Score: 7 TRACIE-Q SV Test - Statements CAD is a disease of the arteries in the heart: False Examples of risk factors for heart disease: True Angina is chest pain or discomfort: I Don't Know The benefits of resistance training include: True Eating more meat and dairy products: False Anti-platelet medications such as aspirin are important: True The only effective way to manage stress: True An exercise warm-up slowly increases heart rate: I Don't Know Prepared, processed foods usually have high sodium: True Depression is common after a heart attack: I Don't Know The statin medications lower cholesterol: True To control blood pressure, lower the amount of sodium: True If someone gets chest discomfort during walking: False Transfats are partially hydrogenated vegetable oils: True Sleep apnea that is not treated increases the risk: False To control cholesterol, one should become a vegetarian: True Someone knows if he/she is exercising at the right level: True Diabetes cannot be prevented with exercise & health eating: False Stress is a large risk for heart attack: I Don't Know A diet that can help lower blood pressure is rich in: True - Total Score Total Correct Responses: 14 Self-Efficacy Initial Assessment We would like to know how confident you are in doing certain activities. Please select your confidence level for:: Select your confidence level for the following using the scale 1-10 where 1 is not at all confident and 10 is totally confident. Your score is the average of all 6 responses. Fatigue: How confident are you that you can keep the fatigue caused by your disease from interfering with the things you want to do? Select Number: 5 Physical Discomfort or Pain: How confident are you that you can keep the physical discomfort or pain of your disease from interfering with the things you want to do? Select Number: 7 Emotional Distress: How confident are you that you can keep the emotional distress caused by your disease from interfering with the things you want to do? Select Number: 5 Other Symptoms or Health Problems: How confident are you that you can keep other symptoms or health problems from interfering with the things you want to do? Select Number: 8 Different Tasks and Activities: How confident are you that you can do the different tasks and activities needed to manage your health condition so as to reduce your need to see a doctor? Select Number: 4 Medication: How confident are you that you can do things other than just taking medication to reduce how much your illness affects your everyday life? Select Number: 6 Total Score:: 5 Nutrition Survey - Nutrition Survey Initial Have you lost >10 lbs over the past 2 months without trying?: Yes Are you following a special diet at home for diabetes, low fat, or low salt?: No Are you interested in meeting with a dietitian for help understanding your diet?: Yes Do you eat less than 3 meals a day?: Yes Do you eat fatty meats (lópez, sausage, ribs, etc), fried foods, desserts, large amounts of salad dressings, margarine, butter, or cheese most days?: Yes Do you have food allergies? [Enter types in comment field]: Yes - vegi & fruits (will explain) Do you eat in restaurants more than 3 times a week?: Yes Do you season food with salt, seasoning salt, or garlic salt?: No Do you used canned, boxed, frozen meals, or soups, seasoning packets?: Yes Total Score:: 7
[2022-07-29 08:31] VITALS: BP 140/70; BMI 45.3
[2022-07-29 08:49] VITALS: BP 140/70; PULSE 72; RESP 16; TEMP 36.4; O2SAT 98; BMI 45.3
== END | disposition home or self-care (01) ==
LOC: CR 07:29
PROVIDERS: PCP Internal Medicine
DX: Z95.1 Presence of aortocoronary bypass graft (principal); I13.2 Hypertensive heart and chronic kidney disease with heart failure and with stage 5 chronic kidney disease, or end stage renal disease; Z99.2 Dependence on renal dialysis; I50.31 Acute diastolic (congestive) heart failure; E11.69 Type 2 diabetes mellitus with other specified complication; E11.42 Type 2 diabetes mellitus with diabetic polyneuropathy; E11.22 Type 2 diabetes mellitus with diabetic chronic kidney disease; N18.6 End stage renal disease; I48.91 Unspecified atrial fibrillation; E66.01 Morbid (severe) obesity due to excess calories; Z79.4 Long term (current) use of insulin; Z95.5 Presence of coronary angioplasty implant and graft; I25.2 Old myocardial infarction; R06.83 Snoring; D64.9 Anemia, unspecified; F41.9 Anxiety disorder, unspecified; R55 Syncope and collapse; I25.10 Atherosclerotic heart disease of native coronary artery without angina pectoris; Z99.89 Dependence on other enabling machines and devices; F32.9 Major depressive disorder, single episode, unspecified; Z71.3 Dietary counseling and surveillance; Z87.891 Personal history of nicotine dependence; K21.9 Gastro-esophageal reflux disease without esophagitis; E78.00 Pure hypercholesterolemia, unspecified; Z86.718 Personal history of other venous thrombosis and embolism; Z87.19 Personal history of other diseases of the digestive system; Z79.899 Other long term (current) drug therapy; R06.02 Shortness of breath; R53.83 Other fatigue
CPT/HCPCS: 93798

== ENCOUNTER 2022-08-17 08:45 | Outpatient (RCR) | payer MEDICARE, SELFPAY ==
[2022-07-21 00:31] VITALS: BP 159/72; PULSE 80; RESP 20; TEMP 36.2; BMI 43.9
[2022-07-27 08:44] VITALS: BP 135/70; PULSE 83; RESP 18; TEMP 36.1; BMI 43.9
--- NOTE | 2022-07-27 12:17 | PCM.WC.PN ---
History of Present Illness Date of Service: 07/27/22 Chief Complaint: Left leg ulcer History of Wound: This 61-year-old male with multiple comorbidities presents to the wound healing center for an ulcer on his mid sternum after CABG 01/11. He states that he had an FL while receiving dialysis and was transferred to [facility] where he had bypass surgery. He was discharged to [facility] for rehab. He was then readmitted to [facility] for fluid on his lungs. He said that he is not sure when the incision dehiscence occurred. He states he is receiving an antibiotic on the days he has dialysis. He is unsure of the antibiotic but it is for 6 weeks. He was referred to us for wound VAC changes and wound care. Patient has an extensive history of CAD, CABG, T2D, ESRD - on dialysis T--Mon, on Warfarin, CHF, HTN, Afib. He is a very poor historian. His wound has been managed by his cardiothoracic surgeon's practice until now. He has had a wound VAC since February 2022. He comes here today for evaluation and treatment of his healing sternal ulcer. Wound culture obtained on 07/06/22 which was positive for MSSA, Coag negative staph, Klebsiella oxytoca. He was started on Bactrim and Doxycycline to treat the organisms. Patient denies fever, chills, nausea, vomiting or diarrhea. Progress of Wound: Midsternal ulcer has improved, the inferior portion of the cluster is healed. The superior has some undermining this week. Objective Data Objective Data Vital Signs: Vital Signs Temp Pulse Resp BP 97 F L 83 18 135/70 H 07/27/22 08:44 07/27/22 08:44 07/27/22 08:44 07/27/22 08:44 Weight: 289 lb Body Mass Index (BMI) 43.9 Charges/Coding Procedures Integumentary 111xxx-113xx: 78120 Ingrid subq tissue 20 sq cm/< Debridement Note Debridement Note Wound debrided: midsternal chest ulcer cluster Type of Debridement: Excisional debridement Anesthesia Used: 5% Lidocaine Gel Depth: Down to and including healthy tissue and in the subcutaneous layer Percentage of wound debrided: 100 Instrument Used: 5mm curette Tissue Removed: Devitalized tissue and slough Severity: Fat Layer Exposed Amount of bleeding with debridement: Mild Bleeding Controlled with: Pressure and Compression and gauze Patient tolerated procedure: Patient tolerated procedure well Debridement Free Text: Sharply debrided edges to help decrease the area where the undermining is located. Post-Debridement Measurements and Additional Note: Post-Debridement Measurements/Treatment - Nurse 1 - General Ulcer Assessment Start: 07/27/22 08:44 Freq: Status: Active Protocol: ROSS Activity Type Activity Date Activity User E-sign Co-sign Detail Recorded Client Recorded Date Recorded By Document 07/27/22 08:44 [id number] 07/27/22 08:46 RB 07/27/22 08:44 - Today's Visit Information Type of service Follow-up Visit (Physician/PODIATRIC SURGEON ) Arrival Mode Ambulatory Transfer Assistance None Patient Identification Verified (Name & Yes ) Patient Requires Transmission-Based No Precautions Height and Weight Body Mass Index (BMI) 43.9 BMI Classification Obese Vital Signs Temperature (97.8 F-99.1 F) 97 F L Temperature Source Temporal Pulse Rate (60-100) 83 Pulse Location Monitor Respiratory Rate (12-18) 18 Respiratory rate source Observation Blood Pressure (90/60-120/80) 135/70 H Blood Pressure Mean (mm Hg) 91 Source Monitor Position Sitting Blood Pressure Location Left Arm History Since Last Visit- (Skip if this is Patient's initial visit) Have you changed medications since your No last visit? Any new allergies or adverse reactions No Had a fall/change in ADL's that may No increase risk of falls Signs or symptoms of abuse and/or No neglect since last visit Have you been in the hospital since your No last visit? Has dressing in place as prescribed Yes Has compression in place as prescribed No Has offloadiing in place as prescribed No Experienced any changes in pain level or No management Pain Scale: 0-10 Numeric Is Patient Pain Free? Yes - Nurse 1 - General Ulcer Measurement Start: 07/27/22 08:44 Freq: Status: Active Protocol: Activity Type Activity Date Activity User E-sign Co-sign Detail Recorded Client Recorded Date Recorded By Document 07/27/22 08:44 ANDREW [id number] 07/27/22 08:46 RB 07/27/22 08:44 Wound Center Nurse 1 #5- STERNUM cluster -Combined with other wound No -Current Size (cm) - Length 0.6 -Current Size (cm) - Width 0.6 -Current Size (cm) - Depth 0.5 -Total Square Cm 0.36 -Photo Taken Yes -Tunneling No -Undermining/Tunneling Yes -Undermining/Tunneling Starts (O'clock 12 ) -Undermining/Tunneling Ends (O'clock) 12 -Maximum Distance (cm) 0.2 -Circular Undermining Yes -Exudate Amt Medium -Exudate Type Serosanguineous -Wound Margin Thickened & Rolled Under -Granulation Amt Medium (34-66%) -Granulation Quality Conrad -Slough/Fibrin Yes -Necrosis Amt Medium (34-66%) -Necrotic Tissue Type Adherent Slough -Structure Exposed N/A -Texture (Fiona-wound Skin Appearance) Assessed, Scarring -Moisture (Fiona-wound Skin Appearance) Assessed -Color (Fiona-wound Skin Appearance) Assessed -Temperature (Fiona-wound Skin No Abnormality Appearance) (Pt Warm) -Tenderness on Palpation (Fiona-wound No Skin Appearance) -Ulcer Cleansing Wound Cleanser -Foul Odor after Cleansing No -Anesthetic Used 5% Lidocaine Gel WC - Nurse 2 - General Ulcer CM Notes Start: 07/27/22 08:44 Freq: Status: Active Protocol: Activity Type Activity Date Activity User E-sign Co-sign Detail Recorded Client Recorded Date Recorded By Document 07/27/22 09:10 [id number] 07/27/22 09:15 REID 07/27/22 09:10 Wound Center Nurse 2 -Time 09:10 -Correct Patient Yes -Correct Side, Site, Position Yes -Correct Procedure Yes -Procedure Performed Yes -Type of Procedure Debridement -Clinical Debridement Subcutaneous -Tissue Removed Subcutaneous -Post Debridement (cm) - Length 1.0 -Post Debridement (cm) - Width 1.2 -Post Debridement (cm) - Depth 0.4 -Total Square (Post) (cm) 1.20 -Area of Debridement (cm) - Length 1.0 -Area of Debridement (cm) - Width 1.2 -Total Square (Area) (cm) 1.20 -Tunneling No -Undermining/Tunneling Yes -Undermining/Tunneling Starts (O'clock 9 ) -Maximum Distance (cm) 0.5 -Circular Undermining No -Wound/Ulcer Outcome Not Healed -Ulcer Cleansing Rinsed/ Irrigated with Saline -Foul Odor after Cleansing No -Bioengineered Tissue No -Bleeding Controlled with Pressure -Treatment Response Procedure Tolerated Well -Offloading No -Debridement - Subq, 1st 20sq cm Yes Pain Scale: 0-10 Numeric Is Patient Pain Free? Yes WC - Nurse 3 - General Ulcer D/C NN Start: 07/27/22 08:44 Freq: Status: Active Protocol: Activity Type Activity Date Activity User E-sign Co-sign Detail Recorded Client Recorded Date Recorded By Document 07/27/22 09:22 DL [id number] 07/27/22 09:24 DL 07/27/22 09:22 Wound Care Center Nurse 3 #5- STERNUM cluster -Ulcer Cleansing Rinsed/ Irrigated with Saline -Foul Odor after Cleansing No -Primary Dressing Applied Aquacel AG 4x4, Mepilex Border -Aquacel AG 4x4 1 -Mepilex Border 1 Treatment Response Procedure Tolerated Well Pain Scale: 0-10 Numeric Is Patient Pain Free? 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 His cardiothoracic surgeon office transferred his wound care to the wound center. Wound care - Aquacel-Ag wicked into the base of the ulcer and in the undermining topped with [place] SAP daily after washing with soap and water. Wound culture obtained on 07/06/22 which was positive for MSSA, Coag negative staph, and Klebsiella oxytoca. He has a PCN allergy so started him on Bactrim and Doxycycline. Encouraged patient to eat a high protein, low sodium, low carbohydrate diet. Continue dialysis as scheduled on . Follow up one week.
[2022-08-03 08:44] VITALS: BP 121/61; PULSE 81; RESP 18; TEMP 36.4; BMI 43.9
--- NOTE | 2022-08-03 09:42 | PN.PCM_ITS ---
History of Present Illness Date of Service: 08/03/22 Chief Complaint: Mid-sternal ulcer History of Wound: This 61-year-old male with multiple comorbidities presents to the wound healing center for an ulcer on his mid sternum after CABG 01/11. He states that he had an KS while receiving dialysis and was transferred to [facility] where he had bypass surgery. He was discharged to [facility] for rehab. He was then readmitted to [facility] for fluid on his lungs. He said that he is not sure when the incision dehiscence occurred. He states he is receiving an antibiotic on the days he has dialysis. He is unsure of the antibiotic but it is for 6 weeks. He was referred to us for wound VAC changes and wound care. Patient has an extensive history of CAD, CABG, T2D, ESRD - on dialysis T--Mon, on Warfarin, CHF, HTN, Afib. He is a very poor historian. His wound has been managed by his cardiothoracic surgeon's practice until now. He has had a wound VAC since February 2022. He comes here today for evaluation and treatment of his healing sternal ulcer. Wound culture obtained on 07/06/22 which was positive for MSSA, Coag negative staph, Klebsiella oxytoca. He was started on Bactrim and Doxycycline to treat the organisms. Patient denies fever, chills, nausea, vomiting or diarrhea. Progress of Wound: Midsternal ulcer is slightly larger this week, but there is no undermining present like there was last week. He is tolerating his antibiotics. Objective Data Objective Data Vital Signs: Vital Signs Temp Pulse Resp BP 97.5 F L 81 18 121/61 H 08/03/22 08:44 08/03/22 08:44 08/03/22 08:44 08/03/22 08:44 Weight: 289 lb Body Mass Index (BMI) 43.9 Charges/Coding Procedures Integumentary 111xxx-113xx: 40826 Ingrid subq tissue 20 sq cm/< Debridement Note Debridement Note Wound debrided: midsternal chest ulcer cluster Wound Grade/Stage: Stage III Type of Debridement: Excisional debridement Anesthesia Used: 5% Lidocaine Gel Depth: Down to and including healthy tissue and in the subcutaneous layer Percentage of wound debrided: 100 Instrument Used: 5mm curette Tissue Removed: Devitalized tissue and slough Severity: Fat Layer Exposed Amount of bleeding with debridement: Mild Bleeding Controlled with: Pressure and Compression and gauze Patient tolerated procedure: Patient tolerated procedure well Debridement Free Text: Sharply debrided edges to prevent curling in and prevent further undermining. Post-Debridement Measurements and Additional Note: Post-Debridement Measurements/Treatment WC - Nurse 1 - General Ulcer Assessment Start: 07/27/22 08:44 Freq: Status: Active Protocol: ROSS Activity Type Activity Date Activity User E-sign Co-sign Detail Recorded Client Recorded Date Recorded By Document 07/27/22 08:44 RB [id number] 07/27/22 08:46 RB Document 08/03/22 08:44 PL [id number] 08/03/22 08:50 PL 07/27/22 08/03/22 08:44 08:44 WC - Today's Visit Information Type of service Follow-up Visit Follow-up Visit (Physician/HEAD BONE GRINDER (Physician/HEAD BONE GRINDER ) ) Arrival Mode Ambulatory Ambulatory Transfer Assistance None None Patient Identification Verified (Name & Yes Yes ) Patient Requires Transmission-Based No No Precautions Safety Precautions NA Height and Weight Body Mass Index (BMI) 43.9 43.9 BMI Classification Obese Obese Vital Signs Temperature (97.8 F-99.1 F) 97 F L 97.5 F L Temperature Source Temporal Temporal Pulse Rate (60-100) 83 81 Pulse Location Monitor Respiratory Rate (12-18) 18 18 Respiratory rate source Observation Blood Pressure (90/60-120/80) 135/70 H 121/61 H Blood Pressure Mean (mm Hg) 91 81 Source Monitor Position Sitting Blood Pressure Location Left Arm History Since Last Visit- (Skip if this is Patient's initial visit) Have you changed medications since your No No last visit? Any new allergies or adverse reactions No No Had a fall/change in ADL's that may No No increase risk of falls Signs or symptoms of abuse and/or No No neglect since last visit Have you been in the hospital since your No No last visit? Has dressing in place as prescribed Yes Yes Has compression in place as prescribed No N/A Has offloadiing in place as prescribed No N/A Experienced any changes in pain level or No No management Pain Scale: 0-10 Numeric Is Patient Pain Free? Yes Yes - Nurse 1 - General Ulcer Measurement Start: 07/27/22 08:44 Freq: Status: Active Protocol: Activity Type Activity Date Activity User E-sign Co-sign Detail Recorded Client Recorded Date Recorded By Document 07/27/22 08:44 RB [id number] 07/27/22 08:46 RB Document 08/03/22 08:44 PL [id number] 08/03/22 08:50 PL 07/27/22 08/03/22 08:44 08:44 Wound Center Nurse 1 #5- STERNUM cluster -Combined with other wound No -Current Size (cm) - Length 0.6 -Current Size (cm) - Width 0.6 -Current Size (cm) - Depth 0.5 -Total Square Cm 0.36 -Photo Taken Yes -Epithelialization Medium 34-66% -Tunneling No No -Undermining/Tunneling Yes No -Undermining/Tunneling Starts (O'clock 12 ) -Undermining/Tunneling Ends (O'clock) 12 -Maximum Distance (cm) 0.2 -Circular Undermining Yes No -Exudate Amt Medium Medium -Exudate Type Serosanguineous Serosanguineous -Wound Margin Thickened & Rolled Under -Granulation Amt Medium (34-66%) Medium (34-66%) -Granulation Quality [place] Pale,Red -Slough/Fibrin Yes Yes -Necrosis Amt Medium (34-66%) Small (1-33%) -Necrotic Tissue Type Adherent Slough Adherent Slough -Structure Exposed N/A -Texture (Fiona-wound Skin Appearance) Assessed, Scarring -Moisture (Fiona-wound Skin Appearance) Assessed -Color (Fiona-wound Skin Appearance) Assessed -Temperature (Fiona-wound Skin No Abnormality Appearance) (Pt Warm) -Tenderness on Palpation (Fiona-wound No Skin Appearance) -Ulcer Cleansing Wound Cleanser -Foul Odor after Cleansing No -Anesthetic Used 5% Lidocaine Gel WC - Nurse 2 - General Ulcer CM Notes Start: 07/27/22 08:44 Freq: Status: Active Protocol: Activity Type Activity Date Activity User E-sign Co-sign Detail Recorded Client Recorded Date Recorded By Document 07/27/22 09:10 [id number] 07/27/22 09:15 Document 08/03/22 09:11 [id number] 08/03/22 09:14 JF 07/27/22 08/03/22 09:10 09:11 Wound Center Nurse 2 #5- STERNUM cluster -Time 09:10 09:13 -Correct Patient Yes Yes -Correct Side, Site, Position Yes Yes -Correct Procedure Yes Yes -Procedure Performed Yes Yes -Type of Procedure Debridement Debridement -Clinical Debridement Subcutaneous Subcutaneous -Tissue Removed Subcutaneous Subcutaneous -Post Debridement (cm) - Length 1.0 1.3 -Post Debridement (cm) - Width 1.2 1.5 -Post Debridement (cm) - Depth 0.4 0.5 -Total Square (Post) (cm) 1.20 1.95 -Area of Debridement (cm) - Length 1.0 1.3 -Area of Debridement (cm) - Width 1.2 1.5 -Total Square (Area) (cm) 1.20 1.95 -Tunneling No No -Undermining/Tunneling Yes No -Undermining/Tunneling Starts (O'clock 9 ) -Maximum Distance (cm) 0.5 -Circular Undermining No No -Wound/Ulcer Outcome Not Healed Not Healed -Ulcer Cleansing Rinsed/ Rinsed/ Irrigated with Irrigated with Saline Saline -Foul Odor after Cleansing No No -Bioengineered Tissue No No -Bleeding Controlled with Pressure Pressure -Treatment Response Procedure Procedure Tolerated Well Tolerated Well -Offloading No No -Debridement - Subq, 1st 20sq cm Yes Yes Pain Scale: 0-10 Numeric Is Patient Pain Free? Yes Yes WC - Nurse 3 - General Ulcer D/C NN Start: 07/27/22 08:44 Freq: Status: Active Protocol: Activity Type Activity Date Activity User E-sign Co-sign Detail Recorded Client Recorded Date Recorded By Document 07/27/22 09:22 DL [id number] 07/27/22 09:24 DL Document 08/03/22 09:26 PL [id number] 08/03/22 09:27 PL 07/27/22 08/03/22 09:22 09:26 Wound Care Center Nurse 3 #5- STERNUM cluster -Ulcer Cleansing Rinsed/ Rinsed/ Irrigated with Irrigated with Saline Saline -Foul Odor after Cleansing No No -Primary Dressing Applied Aquacel AG 4x4, Aquacel AG 2x2, Mepilex Border Mepilex Border -Aquacel AG 2x2 1 -Aquacel AG 4x4 1 -Mepilex Border 1 1 Treatment Response Procedure Tolerated Well Pain Scale: 0-10 Numeric Is Patient Pain Free? 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 His cardiothoracic surgeon office transferred his wound care to the wound center. Wound care - Moistened Aquacel-Ag wicked into the base of the ulcer topped with [place] SAP daily after washing with soap and water. He would benefit from an advanced wound healing product such as Epicord or Epifix. Will apply to his insurance for approval for this product that would be applied weekly at the wound center. Wound culture obtained on 07/06/22 which was positive for MSSA, Coag negative staph, and Klebsiella oxytoca. He has a PCN allergy he is tolerating Bactrim and Doxycycline. Encouraged patient to eat a high protein, low sodium, low carbohydrate diet. Continue dialysis as scheduled on . He follows up with cardiothoracic surgeon's office on 08/08/22. Follow up one week.
[2022-08-10 08:46] VITALS: BP 172/94; PULSE 99; TEMP 36.2; BMI 43.9
--- NOTE | 2022-08-10 09:28 | PCM.WC.PN ---
History of Present Illness Date of Service: 08/10/22 Chief Complaint: Mid-sternal ulcer History of Wound: This 61-year-old male with multiple comorbidities presents to the wound healing center for an ulcer on his mid sternum after CABG 01/11. He states that he had an WY while receiving dialysis and was transferred to [facility] where he had bypass surgery. He was discharged to [facility] for rehab. He was then readmitted to [facility] for fluid on his lungs. He said that he is not sure when the incision dehiscence occurred. He states he is receiving an antibiotic on the days he has dialysis. He is unsure of the antibiotic but it is for 6 weeks. He was referred to us for wound VAC changes and wound care. Patient has an extensive history of CAD, CABG, T2D, ESRD - on dialysis T--Mon, on Warfarin, CHF, HTN, Afib. He is a very poor historian. His wound has been managed by his cardiothoracic surgeon's practice until now. He has had a wound VAC since February 2022. He comes here today for evaluation and treatment of his healing sternal ulcer. Wound culture obtained on 07/06/22 which was positive for MSSA, Coag negative staph, Klebsiella oxytoca. He was started on Bactrim and Doxycycline to treat the organisms. Patient denies fever, chills, nausea, vomiting or diarrhea. Progress of Wound: Midsternal ulcer is stable this week, there continues to be no undermining. He is tolerating his antibiotics. Objective Data Objective Data Vital Signs: Vital Signs Temp Pulse Resp BP 97.2 F L 99 18 172/94 H 08/10/22 08:46 08/10/22 08:46 08/03/22 08:44 08/10/22 08:46 Weight: 289 lb Body Mass Index (BMI) 43.9 Charges/Coding Procedures Integumentary 111xxx-113xx: 97090 Ingrid subq tissue 20 sq cm/< Debridement Note Debridement Note Wound debrided: midsternal chest ulcer cluster Wound Grade/Stage: Stage III Type of Debridement: Excisional debridement Anesthesia Used: 5% Lidocaine Gel Depth: Down to and including healthy tissue and in the subcutaneous layer Percentage of wound debrided: 100 Instrument Used: 5mm curette Tissue Removed: Devitalized tissue and slough Severity: Fat Layer Exposed Amount of bleeding with debridement: Mild Bleeding Controlled with: Pressure and Compression and gauze Patient tolerated procedure: Patient tolerated procedure well Debridement Free Text: Sharply debrided edges to prevent curling in and prevent further undermining. Post-Debridement Measurements and Additional Note: Post-Debridement Measurements/Treatment WC - Nurse 1 - General Ulcer Assessment Start: 07/27/22 08:44 Freq: Status: Active Protocol: [email or web address].CORDELIA Activity Type Activity Date Activity User E-sign Co-sign Detail Recorded Client Recorded Date Recorded By Document 07/27/22 08:44 RB [id number] 07/27/22 08:46 RB Document 08/03/22 08:44 PL [id number] 08/03/22 08:50 PL Document 08/10/22 08:46 AK [id number] 08/10/22 08:49 AK 07/27/22 08/03/22 08/10/22 08:44 08:44 08:46 WC - Today's Visit Information Type of service Follow-up Visit Follow-up Visit Follow-up Visit (Physician/DIRECTOR EPIDEMIOLOGY (Physician/DIRECTOR EPIDEMIOLOGY (Physician/DIRECTOR EPIDEMIOLOGY ) ) ) Arrival Mode Ambulatory Ambulatory Ambulatory Transfer Assistance None None Patient Identification Verified (Name & Yes Yes Yes ) Patient Requires Transmission-Based No No No Precautions Safety Precautions NA NA Height and Weight Body Mass Index (BMI) 43.9 43.9 43.9 BMI Classification Obese Obese Obese Vital Signs Temperature (97.8 F-99.1 F) 97 F L 97.5 F L 97.2 F L Temperature Source Temporal Temporal Temporal Pulse Rate (60-100) 83 81 99 Pulse Location Monitor Monitor Respiratory Rate (12-18) 18 18 Respiratory rate source Observation Blood Pressure (90/60-120/80) 135/70 H 121/61 H 172/94 H Blood Pressure Mean (mm Hg) 91 81 120 Source Monitor Monitor Position Sitting Blood Pressure Location Left Arm History Since Last Visit- (Skip if this is Patient's initial visit) Have you changed medications since your No No No last visit? Any new allergies or adverse reactions No No No Had a fall/change in ADL's that may No No No increase risk of falls Signs or symptoms of abuse and/or No No No neglect since last visit Have you been in the hospital since your No No No last visit? Has dressing in place as prescribed Yes Yes Yes Has compression in place as prescribed No N/A N/A Has offloadiing in place as prescribed No N/A N/A Experienced any changes in pain level or No No No management Left Footwear Regular Shoe Right Footwear Regular Shoe Pain Scale: 0-10 Numeric Is Patient Pain Free? Yes Yes Yes WC - Nurse 1 - General Ulcer Measurement Start: 07/27/22 08:44 Freq: Status: Active Protocol: Activity Type Activity Date Activity User E-sign Co-sign Detail Recorded Client Recorded Date Recorded By Document 07/27/22 08:44 RB [id number] 07/27/22 08:46 RB Document 08/03/22 08:44 PL [id number] 08/03/22 08:50 PL Document 08/10/22 08:46 AK [id number] 08/10/22 08:49 AK 07/27/22 08/03/22 08/10/22 08:44 08:44 08:46 Wound Center Nurse 1 #5- STERNUM cluster -Combined with other wound No No -Current Size (cm) - Length 0.6 4.1 -Current Size (cm) - Width 0.6 4.3 -Current Size (cm) - Depth 0.5 0.5 -Total Square Cm 0.36 17.63 -Photo Taken Yes Yes -Epithelialization Medium 34-66% -Tunneling No No No -Undermining/Tunneling Yes No No -Undermining/Tunneling Starts (O'clock 12 ) -Undermining/Tunneling Ends (O'clock) 12 -Maximum Distance (cm) 0.2 -Circular Undermining Yes No No -Change in Wound Grade/Stage No -Exudate Amt Medium Medium Medium -Exudate Type Serosanguineous Serosanguineous Serosanguineous -Wound Margin Thickened & Distinct, Rolled Under Outline Attached -Granulation Amt Medium (34-66%) Medium (34-66%) Medium (34-66%) -Granulation Quality [place] Pale,Red [place] -Slough/Fibrin Yes Yes Yes -Necrosis Amt Medium (34-66%) Small (1-33%) Medium (34-66%) -Necrotic Tissue Type Adherent Slough Adherent Slough Adherent Slough -Structure Exposed N/A N/A -Texture (Fiona-wound Skin Appearance) Assessed, No Abnormality, Scarring Assessed -Moisture (Fiona-wound Skin Appearance) Assessed No Abnormality, Assessed -Color (Fiona-wound Skin Appearance) Assessed No Abnormality, Assessed -Temperature (Fiona-wound Skin No Abnormality No Abnormality Appearance) (Pt Warm) (Pt Warm) -Tenderness on Palpation (Fiona-wound No No Skin Appearance) -Ulcer Cleansing Wound Cleanser Soap and Water -Foul Odor after Cleansing No No -Anesthetic Used 5% Lidocaine 5% Lidocaine Gel Gel WC - Nurse 2 - General Ulcer CM Notes Start: 07/27/22 08:44 Freq: Status: Active Protocol: Activity Type Activity Date Activity User E-sign Co-sign Detail Recorded Client Recorded Date Recorded By Document 07/27/22 09:10 [id number] 07/27/22 09:15 Document 08/03/22 09:11 [id number] 08/03/22 09:14 07/27/22 08/03/22 09:10 09:11 Wound Center Nurse 2 #5- STERNUM cluster -Time 09:10 09:13 -Correct Patient Yes Yes -Correct Side, Site, Position Yes Yes -Correct Procedure Yes Yes -Procedure Performed Yes Yes -Type of Procedure Debridement Debridement -Clinical Debridement Subcutaneous Subcutaneous -Tissue Removed Subcutaneous Subcutaneous -Post Debridement (cm) - Length 1.0 1.3 -Post Debridement (cm) - Width 1.2 1.5 -Post Debridement (cm) - Depth 0.4 0.5 -Total Square (Post) (cm) 1.20 1.95 -Area of Debridement (cm) - Length 1.0 1.3 -Area of Debridement (cm) - Width 1.2 1.5 -Total Square (Area) (cm) 1.20 1.95 -Tunneling No No -Undermining/Tunneling Yes No -Undermining/Tunneling Starts (O'clock 9 ) -Maximum Distance (cm) 0.5 -Circular Undermining No No -Wound/Ulcer Outcome Not Healed Not Healed -Ulcer Cleansing Rinsed/ Rinsed/ Irrigated with Irrigated with Saline Saline -Foul Odor after Cleansing No No -Bioengineered Tissue No No -Bleeding Controlled with Pressure Pressure -Treatment Response Procedure Procedure Tolerated Well Tolerated Well -Offloading No No -Debridement - Subq, 1st 20sq cm Yes Yes Pain Scale: 0-10 Numeric Is Patient Pain Free? Yes Yes - Nurse 3 - General Ulcer D/C NN Start: 07/27/22 08:44 Freq: Status: Active Protocol: Activity Type Activity Date Activity User E-sign Co-sign Detail Recorded Client Recorded Date Recorded By Document 07/27/22 09:22 DL [id number] 07/27/22 09:24 DL Document 08/03/22 09:26 PL [id number] 08/03/22 09:27 PL 07/27/22 08/03/22 09:22 09:26 Wound Care Center Nurse 3 #5- STERNUM cluster -Ulcer Cleansing Rinsed/ Rinsed/ Irrigated with Irrigated with Saline Saline -Foul Odor after Cleansing No No -Primary Dressing Applied Aquacel AG 4x4, Aquacel AG 2x2, Mepilex Border Mepilex Border -Aquacel AG 2x2 1 -Aquacel AG 4x4 1 -Mepilex Border 1 1 Treatment Response Procedure Tolerated Well Pain Scale: 0-10 Numeric Is Patient Pain Free? 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 His cardiothoracic surgeon office transferred his wound care to the wound center. Wound care - Moistened Aquacel-Ag wicked into the base of the ulcer topped with [place] SAP daily after washing with soap and water. He would benefit from an advanced wound healing product such as Epicord or Epifix. Will apply to his insurance for approval for this product that would be applied weekly at the wound center. Waiting for insurance approval. Wound culture obtained on 07/06/22 which was positive for MSSA, Coag negative staph, and Klebsiella oxytoca. He has a PCN allergy he is tolerating Bactrim and Doxycycline. Encouraged patient to eat a high protein, low sodium, low carbohydrate diet. Continue dialysis as scheduled on . He follows up with cardiothoracic surgeon's office on Monday. Follow up one week.
--- NOTE | 2022-08-17 10:17 | PCM.WC.PN ---
History of Present Illness Date of Service: 08/17/22 Chief Complaint: Mid-sternal ulcer History of Wound: This 61-year-old male with multiple comorbidities presents to the wound healing center for an ulcer on his mid sternum after CABG 01/11. He states that he had an [place] while receiving dialysis and was transferred to [facility] where he had bypass surgery. He was discharged to [facility] for rehab. He was then readmitted to [facility] for fluid on his lungs. He said that he is not sure when the incision dehiscence occurred. He states he is receiving an antibiotic on the days he has dialysis. He is unsure of the antibiotic but it is for 6 weeks. He was referred to us for wound VAC changes and wound care. Patient has an extensive history of CAD, CABG, T2D, ESRD - on dialysis T--Mon, on Warfarin, CHF, HTN, Afib. He is a very poor historian. His wound has been managed by his cardiothoracic surgeon's practice until now. He has had a wound VAC since February 2022. He comes here today for evaluation and treatment of his healing sternal ulcer. Wound culture obtained on 07/06/22 which was positive for MSSA, Coag negative staph, Klebsiella oxytoca. He was started on Bactrim and Doxycycline to treat the organisms. Patient denies fever, chills, nausea, vomiting or diarrhea. Progress of Wound: Midsternal ulcer is stable this week, there continues to be no undermining. Objective Data Objective Data Vital Signs: Vital Signs Temp Pulse Resp BP 97.2 F L 99 18 172/94 H 08/10/22 08:46 08/10/22 08:46 08/03/22 08:44 08/10/22 08:46 Weight: 289 lb Body Mass Index (BMI) 43.9 Charges/Coding Procedures Integumentary 111xxx-113xx: 00673 Ingrid subq tissue 20 sq cm/< Debridement Note Debridement Note Wound debrided: midsternal chest ulcer cluster Wound Grade/Stage: Stage III Type of Debridement: Excisional debridement Anesthesia Used: 5% Lidocaine Gel Depth: Down to and including healthy tissue and in the subcutaneous layer Percentage of wound debrided: 100 Instrument Used: 5mm curette Tissue Removed: Devitalized tissue and slough Severity: Fat Layer Exposed Amount of bleeding with debridement: Mild Bleeding Controlled with: Pressure and Compression and gauze Patient tolerated procedure: Patient tolerated procedure well Post-Debridement Measurements and Additional Note: Post-Debridement Measurements/Treatment WC - Nurse 1 - General Ulcer Assessment Start: 07/27/22 08:44 Freq: Status: Active Protocol: ROSS Activity Type Activity Date Activity User E-sign Co-sign Detail Recorded Client Recorded Date Recorded By Document 07/27/22 08:44 RB [id number] 07/27/22 08:46 RB Document 08/03/22 08:44 PL [id number] 08/03/22 08:50 PL Document 08/10/22 08:46 AK [id number] 08/10/22 08:49 AK 07/27/22 08/03/22 08/10/22 08:44 08:44 08:46 WC - Today's Visit Information Type of service Follow-up Visit Follow-up Visit Follow-up Visit (Physician/MANAGER INVENTORY CONTROL (Physician/MANAGER INVENTORY CONTROL (Physician/MANAGER INVENTORY CONTROL ) ) ) Arrival Mode Ambulatory Ambulatory Ambulatory Transfer Assistance None None Patient Identification Verified (Name & Yes Yes Yes ) Patient Requires Transmission-Based No No No Precautions Safety Precautions NA NA Height and Weight Body Mass Index (BMI) 43.9 43.9 43.9 BMI Classification Obese Obese Obese Vital Signs Temperature (97.8 F-99.1 F) 97 F L 97.5 F L 97.2 F L Temperature Source Temporal Temporal Temporal Pulse Rate (60-100) 83 81 99 Pulse Location Monitor Monitor Respiratory Rate (12-18) 18 18 Respiratory rate source Observation Blood Pressure (90/60-120/80) 135/70 H 121/61 H 172/94 H Blood Pressure Mean (mm Hg) 91 81 120 Source Monitor Monitor Position Sitting Blood Pressure Location Left Arm History Since Last Visit- (Skip if this is Patient's initial visit) Have you changed medications since your No No No last visit? Any new allergies or adverse reactions No No No Had a fall/change in ADL's that may No No No increase risk of falls Signs or symptoms of abuse and/or No No No neglect since last visit Have you been in the hospital since your No No No last visit? Has dressing in place as prescribed Yes Yes Yes Has compression in place as prescribed No N/A N/A Has offloadiing in place as prescribed No N/A N/A Experienced any changes in pain level or No No No management Left Footwear Regular Shoe Right Footwear Regular Shoe Pain Scale: 0-10 Numeric Is Patient Pain Free? Yes Yes Yes WC - Nurse 1 - General Ulcer Measurement Start: 07/27/22 08:44 Freq: Status: Active Protocol: Activity Type Activity Date Activity User E-sign Co-sign Detail Recorded Client Recorded Date Recorded By Document 07/27/22 08:44 RB [id number] 07/27/22 08:46 RB Document 08/03/22 08:44 PL [id number] 08/03/22 08:50 PL Document 08/10/22 08:46 AK [id number] 08/10/22 08:49 AK 07/27/22 08/03/22 08/10/22 08:44 08:44 08:46 Wound Center Nurse 1 #5- STERNUM cluster -Combined with other wound No No -Current Size (cm) - Length 0.6 4.1 -Current Size (cm) - Width 0.6 4.3 -Current Size (cm) - Depth 0.5 0.5 -Total Square Cm 0.36 17.63 -Photo Taken Yes Yes -Epithelialization Medium 34-66% -Tunneling No No No -Undermining/Tunneling Yes No No -Undermining/Tunneling Starts (O'clock 12 ) -Undermining/Tunneling Ends (O'clock) 12 -Maximum Distance (cm) 0.2 -Circular Undermining Yes No No -Change in Wound Grade/Stage No -Exudate Amt Medium Medium Medium -Exudate Type Serosanguineous Serosanguineous Serosanguineous -Wound Margin Thickened & Distinct, Rolled Under Outline Attached -Granulation Amt Medium (34-66%) Medium (34-66%) Medium (34-66%) -Granulation Quality [place] Pale,Red [place] -Slough/Fibrin Yes Yes Yes -Necrosis Amt Medium (34-66%) Small (1-33%) Medium (34-66%) -Necrotic Tissue Type Adherent Slough Adherent Slough Adherent Slough -Structure Exposed N/A N/A -Texture (Fiona-wound Skin Appearance) Assessed, No Abnormality, Scarring Assessed -Moisture (Fiona-wound Skin Appearance) Assessed No Abnormality, Assessed -Color (Fiona-wound Skin Appearance) Assessed No Abnormality, Assessed -Temperature (Fiona-wound Skin No Abnormality No Abnormality Appearance) (Pt Warm) (Pt Warm) -Tenderness on Palpation (Fiona-wound No No Skin Appearance) -Ulcer Cleansing Wound Cleanser Soap and Water -Foul Odor after Cleansing No No -Anesthetic Used 5% Lidocaine 5% Lidocaine Gel Gel WC - Nurse 2 - General Ulcer CM Notes Start: 07/27/22 08:44 Freq: Status: Active Protocol: Activity Type Activity Date Activity User E-sign Co-sign Detail Recorded Client Recorded Date Recorded By Document 07/27/22 09:10 [id number] 07/27/22 09:15 Document 08/03/22 09:11 [id number] 08/03/22 09:14 Document 08/10/22 10:19 PL [id number] 08/10/22 10:21 PL Document 08/17/22 09:07 [id number] 08/17/22 09:10 07/27/22 08/03/22 08/10/22 09:10 09:11 10:19 Wound Center Nurse 2 #5- STERNUM cluster -Time 09:10 09:13 09:15 -Correct Patient Yes Yes Yes -Correct Side, Site, Position Yes Yes Yes -Correct Procedure Yes Yes Yes -Procedure Performed Yes Yes Yes -Type of Procedure Debridement Debridement Debridement -Clinical Debridement Subcutaneous Subcutaneous Subcutaneous -Tissue Removed Subcutaneous Subcutaneous Subcutaneous -Post Debridement (cm) - Length 1.0 1.3 1.3 -Post Debridement (cm) - Width 1.2 1.5 1.5 -Post Debridement (cm) - Depth 0.4 0.5 0.6 -Total Square (Post) (cm) 1.20 1.95 1.95 -Area of Debridement (cm) - Length 1.0 1.3 1.3 -Area of Debridement (cm) - Width 1.2 1.5 1.5 -Total Square (Area) (cm) 1.20 1.95 1.95 -Tunneling No No No -Undermining/Tunneling Yes No No -Undermining/Tunneling Starts (O'clock 9 ) -Maximum Distance (cm) 0.5 -Circular Undermining No No No -Wound/Ulcer Outcome Not Healed Not Healed Not Healed -Ulcer Cleansing Rinsed/ Rinsed/ Rinsed/ Irrigated with Irrigated with Irrigated with Saline Saline Saline -Foul Odor after Cleansing No No No -Bioengineered Tissue No No No -Bleeding Controlled with Pressure Pressure Pressure -Treatment Response Procedure Procedure Procedure Tolerated Well Tolerated Well Tolerated Well -Offloading No No -Debridement - Subq, 1st 20sq cm Yes Yes Yes Pain Scale: 0-10 Numeric Is Patient Pain Free? Yes Yes Yes 08/17/22 09:07 Wound Center Nurse 2 #5- STERNUM cluster -Time 09:08 -Correct Patient Yes -Correct Side, Site, Position Yes -Correct Procedure Yes -Procedure Performed Yes -Type of Procedure Debridement -Clinical Debridement Subcutaneous -Tissue Removed Subcutaneous -Post Debridement (cm) - Length 1.3 -Post Debridement (cm) - Width 1.6 -Post Debridement (cm) - Depth 0.6 -Total Square (Post) (cm) 2.08 -Area of Debridement (cm) - Length 1.3 -Area of Debridement (cm) - Width 1.6 -Total Square (Area) (cm) 2.08 -Tunneling No -Undermining/Tunneling No -Undermining/Tunneling Starts (O'clock ) -Maximum Distance (cm) -Circular Undermining No -Wound/Ulcer Outcome Not Healed -Ulcer Cleansing Rinsed/ Irrigated with Saline -Foul Odor after Cleansing No -Bioengineered Tissue No -Bleeding Controlled with Pressure -Treatment Response Procedure Tolerated Well -Offloading No -Debridement - Subq, 1st 20sq cm Yes Pain Scale: 0-10 Numeric Is Patient Pain Free? Yes WC - Nurse 3 - General Ulcer D/C NN Start: 07/27/22 08:44 Freq: Status: Active Protocol: Activity Type Activity Date Activity User E-sign Co-sign Detail Recorded Client Recorded Date Recorded By Document 07/27/22 09:22 DL [id number] 07/27/22 09:24 DL Document 08/03/22 09:26 PL [id number] 08/03/22 09:27 PL Document 08/10/22 12:01 AK [id number] 08/10/22 12:01 AK Document 08/17/22 09:15 RB [id number] 08/17/22 09:16 RB 07/27/22 08/03/22 08/10/22 09:22 09:26 12:01 Wound Care Center Nurse 3 #5- STERNUM cluster -Ulcer Cleansing Rinsed/ Rinsed/ Rinsed/ Irrigated with Irrigated with Irrigated with Saline Saline Saline -Foul Odor after Cleansing No No No -Negative Pressure Wound Therapy N/A -Primary Dressing Applied Aquacel AG 4x4, Aquacel AG 2x2, Aquacel AG 2x2, Mepilex Border Mepilex Border Mepilex Border -Aquacel AG 2x2 1 1 -Aquacel AG 4x4 1 -Mepilex Border 1 1 1 Treatment Response Procedure Tolerated Well Pain Scale: 0-10 Numeric Is Patient Pain Free? Yes Yes Yes WC - Visit Discharge Discharge Condition Stable Stable Stable Ambulatory Status Ambulatory Ambulatory Ambulatory Transportation Private Auto Private Auto Private Auto Medication Reconcilliation completed & Yes provided to patient/care provider Clinical Summary of Care Provided Yes 08/17/22 09:15 Wound Care Center Nurse 3 #5- STERNUM cluster -Ulcer Cleansing Rinsed/ Irrigated with Saline -Foul Odor after Cleansing -Negative Pressure Wound Therapy -Primary Dressing Applied Aquacel AG 2x2, Mepilex Border -Aquacel AG 2x2 1 -Aquacel AG 4x4 -Mepilex Border 1 Treatment Response Procedure Tolerated Well Pain Scale: 0-10 Numeric Is Patient Pain Free? 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: CODE(S): L98.492 - Non-pressure chronic ulcer of skin of other sites with fat layer exposed (2) Type 2 diabetes mellitus: CODE(S): E11.9 - Type 2 diabetes mellitus without complications QUALIFIERS: Diabetes mellitus complication status: with kidney complications (3) History of coronary artery bypass graft: CODE(S): Z95.1 - Presence of aortocoronary bypass graft (4) ESRD (end stage renal disease) on dialysis: CODE(S): N18.6 - End stage renal disease; Z99.2 - Dependence on renal dialysis (5) Hypertension: CODE(S): I10 - Essential (primary) hypertension PLAN: Plan Patient evaluated at the wound healing center. His cardiothoracic surgeon office transferred his wound care to the wound center. Wound care - Moistened Aquacel-Ag wicked into the base of the ulcer topped with [place] SAP daily after washing with soap and water. He would benefit from an advanced wound healing product such as Epicord or Epifix. Will apply to his insurance for approval for this product that would be applied weekly at the wound center. His insurance denied the Epifix, appealing that decision. He would really benefit from an advances wound care product. Wound culture obtained on 07/06/22 which was positive for MSSA, Coag negative staph, and Klebsiella oxytoca. He has a PCN allergy he is tolerating Bactrim and Doxycycline. Encouraged patient to eat a high protein, low sodium, low carbohydrate diet. Continue dialysis as scheduled on . Follow up one week.
== END 2022-08-19 23:59 | disposition home or self-care (01) ==
LOC: WC 08:45
PROVIDERS: PCP Internal Medicine; Visit Provider Nurse Practitioner Family
DX: L98.492 Non-pressure chronic ulcer of skin of other sites with fat layer exposed (principal); I13.2 Hypertensive heart and chronic kidney disease with heart failure and with stage 5 chronic kidney disease, or end stage renal disease; Z99.2 Dependence on renal dialysis; I50.9 Heart failure, unspecified; E11.22 Type 2 diabetes mellitus with diabetic chronic kidney disease; N18.6 End stage renal disease; I48.91 Unspecified atrial fibrillation; T81.31XA Disruption of external operation (surgical) wound, not elsewhere classified, initial encounter; Y83.2 Surgical operation with anastomosis, bypass or graft as the cause of abnormal reaction of the patient, or of later complication, without mention of misadventure at the time of the procedure; Z88.0 Allergy status to penicillin; Z79.01 Long term (current) use of 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; Z79.899 Other long term (current) drug therapy; I25.2 Old myocardial infarction; Z95.1 Presence of aortocoronary bypass graft
CPT/HCPCS: 11042

== ENCOUNTER 2022-08-19 13:00 | Outpatient (RCR) | payer MEDICARE, SELFPAY ==
[2022-07-29 08:31] VITALS: BMI 45.3
[2022-08-17 08:49] VITALS: BP 118/58; PULSE 89; RESP 18; TEMP 36.4
== END 2022-08-19 23:59 ==
LOC: CR 13:00
PROVIDERS: PCP Internal Medicine; Referring Provider Thoracic Surgery (Cardiothoracic Vascular Surgery); Visit Provider Thoracic Surgery (Cardiothoracic Vascular Surgery)
DX: Z95.1 Presence of aortocoronary bypass graft (principal)
CPT/HCPCS: 11042; 93798

== ENCOUNTER 2022-09-09 13:00 | Outpatient (RCR) | payer MEDICARE, SELFPAY ==
[2022-07-29 08:31] VITALS: BMI 45.3
[2022-08-20 01:41] VITALS: BP 118/58; PULSE 89; RESP 18; TEMP 36.4
--- NOTE | 2022-08-26 09:25 | PCM.CR.ITP ---
Exercise - Initial Assessment Visit Session #:: 11 Nutrition - Initial Assessment Visit Session #:: 11 Weight Mgt (Other Care) Height: 5 ft 8 in Weight:: 305 lb BMI: 46.3 Core - Initial Assessment Visit Session #:: 11 Psychosocial - Initial Assess VIsit Session #:: 11 Target Goals Target Goals Patient Health Questionnaire PHQ-9 Screening 30-Day Re-eval Assessment: 1. Little interest or pleasure in doing things: More than half the days 2. Feeling down, depressed, or hopeless: More than half the days 3. Trouble falling or staying asleep, or sleeping too much: Not at all 4. Feeling tired or having little energy: More than half the days 5. Poor appetite or overeating: Not at all 6. Feeling bad about yourself -- or that you are a failure or have let yourself or your family down: Several days 7. Trouble concentrating on things, such as reading the newspaper or watching television: Not at all 8. Moving or speaking so slowly that other people could have noticed. Or the opposite - being so fidgety or restless that you have been moving around a lot more than usual: Not at all 9. Thoughts that you would be better off , or of hurting yourself in some way: Not at all How difficult have these problems made it for you to do your work, take care of things at home, or get along with other people?: Somewhat difficult Total Score: 7 Self-Efficacy 6-Item Scale 30-Day Re-eval Assessment: We would like to know how confident you are in doing certain activities. Please select your confidence level for: Fatigue Select Number: 5 Physical Discomfort or Pain Select Number: 7 Emotional Distress Select Number: 5 Other Symptoms or Health Problems Select Number: 8 Different Tasks and Activities Select Number: 4 Medication Select Number: 6 Total Score:: 5 Nutrition Survey Nutrition Survey Instructions Scoring Instructions Exercise - 30-day Assessment Visit Date of Eval: 08/26/22 Session #:: 11 Stress Test EKG: Physician Prescribed Exercise Modalities: NuStep, SciFit and Lateral Crusher Foreman Frequency: 3x/week for 12 weeks [36 sessions] Intensity: 60-80% of age predicted maximum heart rate reserve Duration: 30 - 45 minutes Current METSs:: 3 Target Heart Rate:: 95-111 Current RPE:: 12-14 Maximum Excercise HR:: 95 Resting Blood Pressure: 158/70 Maximum Exercise Blood Pressure: 158/70 EKG Type: NSR with rare pvc Outcomes & Goals Goals:: Verbalizes understanding of THR, RPE & goal METS by session 6, Documents in home exercise log/reports 30 min aerobic 5 day/wk by DC, Demonstrates accurate pulse taking by DC and Other additional outcome/goals: see below Intervention & Plan Exercise Program Goals: Instruct on personal THR & RPE, Instruct on MET level & personal MET goal, Show patient to take own pulse /validate performance until accurate, Instruct on home exercise and Other additional plan/int 30-day Reassessments 30 day Reassessments:: Progressing Reassessment Notes & Comments:: THR explained Physical Activity Home Exercise Physical Activity - Home Exercise: Safe Exercise, Warm-up, Self-monitoring, Cool-Down, Home Exercise > 30 min Daily and Sitting Time <3 hours/daily Outcomes & Goals Outcomes/Goals: Demonstrates correct Warm-up/exercise Cool-Down (S3) if = 2.5 METs, Verbalizes symptoms of exercise intolerance by Session 3 (S3), Demonstrate safe equipment use (S3) & follows exercise prescrition (6) and Other: See below Intervention & Plan Plan/Intervention: Instruct warm-up & cool-down if exercising at > 2 METs, Instruct on symptoms of exercise intolerance & actions to take, Instruct & monitor on saf, Assess intial functional capacity & safety risk and Other See below 30-day Reassessments 30 day Reassessments:: Progressing Reassessment Notes & Comments:: encouraged to cool down Nutrition - 30-Day Assessment Program Goals Nutrition Program Goals Patient has diagnosis of Hyperlipidemia (ICD E78)?: Yes Visit Date of Eval: 08/26/22 Session #:: 11 Cholesterol/Lipids (Other Core Measures) Determine presence & major risk factors that modify LDL goal: Hypertension or hypertensive medication, Low HDL cholesterol <40 mg/dL*, Family history of premature CHD in Male < 55 years: female <65 yearsFa and Age men > 45 years; women >/= 55 years Outcomes/Goals: Pt IDs own risk factors & lifestyle modifications by Session 10, Verbalizes symptoms of angina & response by session 3., Pt independently manages and Other Additional Outcomes/Goals: Intervention/Plan: Advocate for lipid panel cholesterol medication if applicable, Instruct on personal lipid levels & lipid goals/NCEP guidelines, Instruct on cholesterol and Other additional plan/int Referral to dietitian:: Yes (medical nutrition therapy) 30-day Reassessments:: Progressing Reassessment Notes & Comments:: pt attending nutrition class Diabetes (Other Core Measures) Diabetes Type: Diagnosis Type II ICD-10 E11 Insulin dependent injection/pump?: Yes Non-Insulin Dependent?: Yes Do you monitor your blood sugar at home?: Yes Referral to Diabetic Clinic:: Yes Outcomes/Goals:: Able to state symptoms of, Able to state, Able to state and Other additional Intervention/Plan:: Instruct on, Refer to, Instruct on and Other 30-day Reassessments:: Progressing Reassessment Notes & Comments:: pt attending nutrition class Weight Mgt (Other Care) Height: 5 ft 8 in Weight:: 305 lb BMI: 46.3 Diagnosis Overweight/Obesity BMI> 30% ICD-10 E66: Yes Diagnosis High BMI/Morbid Obesity BMI> 35% ICD-10 Z68: Yes Outcomes/Goals: Pt sets, maintains & shows weight loss goal & trend during rehab and Other additional outcomes/goals Intervention/Plan: Instruct on ideal BMI & set weight loss goal w/patient, Assist pt to ID & incorporate diet changes for weight loss by S9, Refer to Structured Weight Loss program as appropriate, Encourage goal of using 250-300dcal per session for weight loss and Other additional plan/interventions 30 day Reassessments:: Progressing Reassessment Notes & Comments:: pt attending nutrition class Healthy Eating Habits Will attend diet classes:: Yes Outcomes/Goals:: Consume diet rich in vegs,fruits,whole grain/high fiber,fish,lean meat, Limit sat/trans fats,cholesterol & added salts & sugars and Other additional outcome/goals: Intervention/Plan:: Assess current eating habits and Other Additional plan/interventions 30-day Reassessments:: Progressing Reassessment Notes & Comments:: pt attending nutrition class Education Gave educational materials for:: Signs & symptoms of hypoglycemia, Signs & symptoms of hyperglycemia, Relate diabetes to coronary artery disease and Healthy eating Nutrition - 60-Day Assessment Weight Mgt (Other Care) Height: 5 ft 8 in Weight:: 305 lb BMI: 46.3 Core - 30-Day Assessment Visit Date of Eval: 08/26/22 Session #:: 11 Medication Compliance Preventative Medication(s):: Aspirin, SRINIVASA inhibitor, Statin/lipid, Beta ashlee and Warfarin/Coumadin H/O mental health issues: depression, anxiety, or addiction?: No Doesn?t believe in the benefits of treatment?: No Believes medications are unnecessary or harmful?: No Has a concern about medication side effects?: No Outcomes/Goals: Verbalizes medications,desired effect & common side effects @ DC, Pt self-reports following medication regimen, Keeps card in wallet w/medications listed by DC and Other additional outcome/goals: Interventions/plans: Instruct on medication effects & side effects, Review medication list w/patient every two weeks, Instruct importance of taking meds as ordered & assist problem solving and Other additional 30-day Reassessments:: Progressing Reassessment Notes & Comments:: pt encouraged to take his meds Tobacco Use Tobacco Use: Non-smoker Hypertension Hypertension Diagnosis:: Hypertension ICD-10 I10 Resting Blood Pressure:: 158/70 [place] [employer] Hypertension Guidelines Peak Exercise Blood Pressure:: 158/70 Outcomes/Goals: Able to verbalize/achieve optimal blood pressure <130/80, Incorporates diet changes & exercise for blood pressure control by DC and Other additional outcomes/goals Interventions/plan: Instruct on optimal blood pressure, hypertension & medications, Instruct on effects of sodium, alcohol, stress, exercise &hypertension and Other additional plan/interventions 30 day Reassessments:: Progressing Reassessment Notes & Comments:: pt encouraged to take his meds Tobacco Cessation Referral Smoking Cessation Referral:: No Individual Education/Counseling:: No Education Schedule Given:: Yes Psychosocial - 30-Day Assess VIsit Session #:: 11 History of previous Mental disease:: No Target Goals Target Goals Psychosocial - 60-Day Assess Target Goals Target Goals Psychosocial - 90-Day Assess Target Goals Target Goals Psychosocial - Final Assessmen Target Goals Target Goals Nutrition - 90-Day Assessment Weight Mgt (Other Care) Height: 5 ft 8 in Weight:: 305 lb BMI: 46.3 Nutrition - Final Assessment Weight Mgt (Other Care) Height: 5 ft 8 in Weight:: 305 lb BMI: 46.3
[2022-08-26 09:38] VITALS: BP 158/70; BMI 46.3
== END 2022-09-19 23:59 ==
LOC: CR 13:00
PROVIDERS: PCP Internal Medicine; Referring Provider Thoracic Surgery (Cardiothoracic Vascular Surgery); Visit Provider Thoracic Surgery (Cardiothoracic Vascular Surgery)
DX: Z95.1 Presence of aortocoronary bypass graft (principal)
CPT/HCPCS: 93798

== ENCOUNTER 2022-09-14 08:45 | Outpatient (RCR) | payer MEDICARE, SELFPAY ==
[2022-07-29 08:31] VITALS: BMI 45.3
[2022-08-20 01:17] VITALS: BP 172/94; PULSE 99; RESP 18; TEMP 36.2; BMI 43.9
[2022-08-26 09:38] VITALS: BMI 46.3
[2022-08-31 08:48] VITALS: BP 116/66; PULSE 81; RESP 18; TEMP 36.4; BMI 43.9
--- NOTE | 2022-08-31 11:12 | PCM.WC.PN ---
History of Present Illness Date of Service: 08/31/22 Chief Complaint: Mid-sternal ulcer History of Wound: This 62-year-old male with multiple comorbidities presents to the wound healing center for an ulcer on his mid sternum after CABG 01/11. He states that he had an MT while receiving dialysis and was transferred to [facility] where he had bypass surgery. He was discharged to [facility] for rehab. He was then readmitted to [facility] for fluid on his lungs. He said that he is not sure when the incision dehiscence occurred. He states he is receiving an antibiotic on the days he has dialysis. He is unsure of the antibiotic but it is for 6 weeks. He was referred to us for wound VAC changes and wound care. Patient has an extensive history of CAD, CABG, T2D, ESRD - on dialysis T--Mon, on Warfarin, CHF, HTN, Afib. He is a very poor historian. His wound has been managed by his cardiothoracic surgeon's practice until now. He has had a wound VAC since February 2022. He comes here today for evaluation and treatment of his healing sternal ulcer. Wound culture obtained on 07/06/22 which was positive for MSSA, Coag negative staph, Klebsiella oxytoca. He was started on Bactrim and Doxycycline to treat the organisms. Patient denies fever, chills, nausea, vomiting or diarrhea. Progress of Wound: Midsternal ulcer is stable. His insurance denied approval for the advanced skin substitute Epifix. We have opportunity to apply a donated sample of an advanced skin substitute, Matrion #1 applied. Objective Data Objective Data Vital Signs: Vital Signs Temp Pulse Resp BP 97.6 F L 81 18 116/66 08/31/22 08:48 08/31/22 08:48 08/31/22 08:48 08/31/22 08:48 Weight: 289 lb Body Mass Index (BMI) 43.9 Charges/Coding Procedures Integumentary 150xxx-152xx: 56092 Skin sub graft trnk/arm/leg Debridement Note Debridement Note Wound debrided: midsternal chest ulcer cluster Wound Grade/Stage: Stage III Type of Debridement: Excisional debridement Anesthesia Used: 5% Lidocaine Gel Depth: Down to and including healthy tissue and in the subcutaneous layer Percentage of wound debrided: 100 Instrument Used: 3mm curette Tissue Removed: Devitalized tissue and slough Severity: Fat Layer Exposed Amount of bleeding with debridement: Mild Bleeding Controlled with: Pressure and Compression and gauze Patient tolerated procedure: Patient tolerated procedure well Post-Debridement Measurements and Additional Note: Post-Debridement Measurements/Treatment - Nurse 1 - General Ulcer Assessment Start: 08/31/22 08:47 Freq: Status: Active Protocol: ROSS Activity Type Activity Date Activity User E-sign Co-sign Detail Recorded Client Recorded Date Recorded By Document 08/31/22 08:48 [id number] 08/31/22 08:48 ZAINAB 08/31/22 08:48 - Today's Visit Information Type of service Follow-up Visit (Physician/[facility]ER ) Arrival Mode Ambulatory Transfer Assistance None Patient Identification Verified (Name & Yes ) Patient Requires Transmission-Based No Precautions Height and Weight Body Mass Index (BMI) 43.9 BMI Classification Obese Vital Signs Temperature (97.8 F-99.1 F) 97.6 F L Temperature Source Temporal Pulse Rate (60-100) 81 Respiratory Rate (12-18) 18 Blood Pressure (90/60-120/80) 116/66 Blood Pressure Mean (mm Hg) 82 History Since Last Visit- (Skip if this is Patient's initial visit) Have you changed medications since your No last visit? Any new allergies or adverse reactions No Had a fall/change in ADL's that may No increase risk of falls Signs or symptoms of abuse and/or No neglect since last visit Have you been in the hospital since your No last visit? Has dressing in place as prescribed Yes Has compression in place as prescribed N/A Has offloadiing in place as prescribed N/A Pain Scale: 0-10 Numeric Is Patient Pain Free? Yes - Nurse 2 - General Ulcer CM Notes Start: 08/31/22 08:47 Freq: Status: Active Protocol: Activity Type Activity Date Activity User E-sign Co-sign Detail Recorded Client Recorded Date Recorded By Document 08/31/22 09:16 REID [id number] 08/31/22 09:22 REID 08/31/22 09:16 Wound Center Nurse 2 #5- STERNUM cluster -Time 09:16 -Correct Patient Yes -Correct Side, Site, Position Yes -Correct Procedure Yes -Procedure Performed Yes -Type of Procedure Debridement -Clinical Debridement Subcutaneous -Tissue Removed Subcutaneous -Post Debridement (cm) - Length 1.0 -Post Debridement (cm) - Width 1.0 -Post Debridement (cm) - Depth 0.5 -Total Square (Post) (cm) 1.00 -Area of Debridement (cm) - Length 1.0 -Area of Debridement (cm) - Width 1.0 -Total Square (Area) (cm) 1.00 -Tunneling Yes -Tunneling Position (O'clock) 2 -Tunneling Distance (cm) 0.8 -Undermining/Tunneling No -Circular Undermining No -Wound/Ulcer Outcome Not Healed -Ulcer Cleansing Rinsed/ Irrigated with Saline -Foul Odor after Cleansing No -Bioengineered Tissue No -Bleeding Controlled with Pressure -Treatment Response Procedure Tolerated Well -Offloading No -Debridement - Subq, 1st 20sq cm No -Apply Skin Sub - 1st 25 sq cm - Legs 1 Pain Scale: 0-10 Numeric Is Patient Pain Free? Yes WC - Nurse 3 - General Ulcer D/C NN Start: 08/31/22 08:47 Freq: Status: Active Protocol: Activity Type Activity Date Activity User E-sign Co-sign Detail Recorded Client Recorded Date Recorded By Document 08/31/22 09:22 [id number] 08/31/22 09:24 REID 08/31/22 09:22 Wound Care Center Nurse 3 #5- STERNUM cluster -Ulcer Cleansing Rinsed/ Irrigated with Saline -Foul Odor after Cleansing No -Primary Dressing Applied Mepilex Border -Mepilex Border 1 Pain Scale: 0-10 Numeric Is Patient Pain Free? 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: CODE(S): L98.492 - Non-pressure chronic ulcer of skin of other sites with fat layer exposed (2) Type 2 diabetes mellitus: CODE(S): E11.9 - Type 2 diabetes mellitus without complications QUALIFIERS: Diabetes mellitus complication status: with kidney complications (3) History of coronary artery bypass graft: CODE(S): Z95.1 - Presence of aortocoronary bypass graft (4) ESRD (end stage renal disease) on dialysis: CODE(S): N18.6 - End stage renal disease; Z99.2 - Dependence on renal dialysis (5) Hypertension: CODE(S): I10 - Essential (primary) hypertension PLAN: Plan Patient evaluated at the wound healing center. His cardiothoracic surgeon office transferred his wound care to the wound center. His insurance denied approval for the advanced skin substitute Epifix. He would really benefit from an advanced wound healing product. We have opportunity to apply a donated sample of an advanced skin substitute, Matrion. Wound care - Applied the donated product of Matrion #1 covered with wound veil, steri strips and topped Mepilex. He was instructed to keep the bandage clean and dry. He is not to remove the wound veil if he has to change the dressing. Wound culture obtained on 07/06/22 which was positive for MSSA, Coag negative staph, and Klebsiella oxytoca. He has a PCN allergy he is tolerating Bactrim and Doxycycline. Encouraged patient to eat a high protein, low sodium, low carbohydrate diet. Continue dialysis as scheduled on . Follow up one week.
[2022-09-07 08:52] VITALS: BP 150/60; PULSE 80; RESP 20; TEMP 36.5; BMI 43.9
--- NOTE | 2022-09-07 09:35 | HP.PCM_ITS ---
History of Present Illness Date of Service: 09/07/22 Chief Complaint: Mid-sternal ulcer History of Wound: This 62-year-old male with multiple comorbidities presents to the wound healing center for an ulcer on his mid sternum after CABG 01/11. He states that he had an NE while receiving dialysis and was transferred to [facility] where he had bypass surgery. He was discharged to [facility] for rehab. He was then readmitted to [facility] for fluid on his lungs. He said that he is not sure when the incision dehiscence occurred. He states he is receiving an antibiotic on the days he has dialysis. He is unsure of the antibiotic but it is for 6 weeks. He was referred to us for wound VAC changes and wound care. Patient has an extensive history of CAD, CABG, T2D, ESRD - on dialysis T-TH-Mon, on Warfarin, CHF, HTN, Afib. He is a very poor historian. His wound has been managed by his cardiothoracic surgeon's practice until now. He has had a wound VAC since February 2022. He comes here today for evaluation and treatment of his healing sternal ulcer. Wound culture obtained on 07/06/22 which was positive for MSSA, Coag negative staph, Klebsiella oxytoca. He was started on Bactrim and Doxycycline to treat the organisms. Patient denies fever, chills, nausea, vomiting or diarrhea. Progress of Wound: Midsternal ulcer continues to have undermining around 2 o'clock. His insurance denied approval for the advanced skin substitute Epifix. We have opportunity to apply a donated sample of an advanced skin substitute, Matrion #2 applied. [facility] Medical History (HFpEF) heart failure with preserved ejection fraction Acute exacerbation of CHF (congestive heart failure) Ipcbf-hd-rmdtccy kidney injury Anemia Anxiety Atrial fibrillation [facility] Cardiology follow-up encounter Chest pain CHF (congestive heart failure) Chronic kidney failure Chronic renal failure, 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 Colonization status Congestive heart failure (CHF) Coronary artery disease COVID CPAP (continuous positive airway pressure) dependence Delayed wound healing Depression Diabetes mellitus type 2 in obese Dialysis catheter clot or failure Diastolic CHF, acute Dietary restriction Dupuytrens contracture DVT (deep venous thrombosis) Edema of left lower leg due to peripheral venous insufficiency End stage renal disease Equinus contracture of left ankle ESRD (end stage renal disease) on dialysis ESRD (end stage renal disease) on dialysis Former smoker Gastric reflux Hammer toe of left foot Hemodialysis patient High cholesterol History of DVT of lower extremity History of edema History of IBS History of pain when walking History of renal disease History of stress test Hx of echocardiogram Hypertension Insulin dependent diabetes mellitus Loss of consciousness Loss of hearing Malnutrition Morbid obesity NSTEMI (non-ST elevated myocardial infarction) Other specified peripheral vascular diseases Pressure ulcer Problem with dialysis access Pulmonary hypertension Renal failure, chronic Shortness of breath on exertion Spitting suture Syncope Transfusion (red blood cell) associated hemochromatosis Trigger finger Type 2 diabetes mellitus Type 2 diabetes mellitus with diabetic polyneuropathy Ulcer of left lower extremity with fat layer exposed Wears glasses Home Medications ascorbic acid (vitamin C) 1,000 mg tablet (Vitamin C) 1,000 mg PO DAILY suppliment 12/02/16 [History Last Taken 01/05/22] buspirone 10 mg tablet 10 mg PO BID depression 12/02/16 [History Last Taken 01/05/22] dicyclomine 20 mg tablet 20 mg PO TID IBS 12/02/16 [History Last Taken 01/05/22] venlafaxine 150 mg capsule,extended release 24 hr (Effexor XR) 150 mg PO DAILY depression 12/02/16 [History Last Taken 01/05/22] simethicone 80 mg chewable tablet (Gas Relief (simethicone)) 80 mg PO TID PRN PRN Indigestion 03/06/21 [History Last Taken 01/05/22] calcium acetate(phosphat bind) 667 mg capsule 1,334 - 2,001 mg PO TIDCM supplement 03/07/21 [History Last Taken 01/05/22] atorvastatin 80 mg tablet 80 mg PO DAILY cholesterol 12/23/21 [History Last Taken 01/05/22] cinnamon bark 500 mg capsule 500 mg PO DAILY supplement 12/23/21 [History Last Taken 01/05/22] gabapentin 600 mg tablet 300 mg PO DAILY nerve pain 12/23/21 [History Last Taken 01/05/22] insulin NPH isoph U-100 human 100 unit/mL (3 mL) subcutaneous pen (Novolin N FlexPen) 5 unit subcut DAILY dm 12/23/21 [History Last Taken 01/06/22] midodrine 10 mg tablet 10 mg PO TID bp 12/23/21 [History Last Taken 01/06/22] pyridoxine (vitamin B6) 50 mg tablet (Vitamin B-6) 50 mg PO DAILY 12/23/21 [History Last Taken 01/05/22] aspirin 81 mg tablet,delayed release 81 mg PO BREAKFAST #30 tabs 12/27/21 [Rx Last Taken 01/05/22] nitroglycerin 0.4 mg sublingual tablet 0.4 mg sublingual Q5M PRN chest pain #25 tabs 12/30/21 [Rx Last Taken 01/06/22] insulin NPH isoph U-100 human 100 unit/mL (3 mL) subcutaneous pen (Novolin N FlexPen) 18 unit subcut QHS DM 01/06/22 [History Last Taken 01/05/22] isosorbide mononitrate 30 mg tablet,extended release 24 hr 30 mg PO DAILY HEART 01/06/22 [History Last Taken 01/05/22] pantoprazole 40 mg tablet,delayed release 40 mg PO DAILY GERD 01/06/22 [History Last Taken 01/05/22] amiodarone 200 mg tablet 200 mg PO DAILY 02/10/22 [History Last Taken Unknown] clopidogrel 75 mg tablet 75 mg PO DAILY 02/10/22 [History Last Taken Unknown] levofloxacin 500 mg tablet 500 mg PO DAILY 02/10/22 [History Last Taken Unknown] carvedilol 3.125 mg tablet 3.125 mg PO DAILY 05/09/22 [History Last Taken Unknown] nifedipine 90 mg tablet,extended release 24 hr 90 mg PO DAILY 05/09/22 [History Last Taken Unknown] sucroferric oxyhydroxide 500 mg chewable tablet (Velphoro) 500 mg PO DAILY 05/09/22 [History Last Taken Unknown] warfarin 3 mg tablet 9 mg PO DAILY 05/09/22 [History Last Taken Unknown] doxycycline hyclate 100 mg capsule 100 mg PO BID 14 days #28 caps 07/11/22 [Rx Last Taken Unknown] sulfamethoxazole 800 mg-trimethoprim 160 mg tablet (Bactrim DS) 1 tab PO Q12H 14 days #28 tabs 07/20/22 [Rx Last Taken Unknown] atorvastatin 80 mg tablet (Lipitor) 80 mg PO DAILY 07/29/22 [History Last Taken Unknown] darbepoetin saji in polysorbat 40 mcg/0.4 mL in polysorbate injection syringe (Aranesp) 40 mcg subcut QWEEK 07/29/22 [History Last Taken Unknown] dicyclomine 20 mg tablet 20 mg PO TID 07/29/22 [History Last Taken Unknown] gabapentin 600 mg tablet (Neurontin) 600 mg PO BID 07/29/22 [History Last Taken Unknown] glucagon 1 mg injection kit 1 mg PRN PRN Hypoglycemia 07/29/22 [History Last Taken Unknown] midodrine 5 mg tablet 20 mg PO TID 07/29/22 [History Last Taken Unknown] simethicone 80 mg chewable tablet 80 mg PO Q6H 07/29/22 [History Last Taken Unknown] sucroferric oxyhydroxide 500 mg chewable tablet (Velphoro) 500 mg PO BID 07/29/22 [History Last Taken Unknown] venlafaxine 150 mg capsule,extended release 24 hr (Effexor XR) 150 mg PO DAILY 07/29/22 [History Last Taken Unknown] Allergy/AdvReac Type Severity Reaction Status Date / Time cephalexin Allergy Hives Verified 05/24/22 07:29 Penicillins Allergy Hives Verified 05/24/22 07:29 Family History Mother Diabetes Heart disease Hypertension Surgical History History of arteriovenostomy for renal dialysis (~07/2020) History of carpal tunnel surgery of left wrist History of carpal tunnel surgery of right wrist History of colonoscopy History of quadruple bypass History of surgery History of tonsillectomy and adenoidectomy Social History housing: house Smoking Status: Former smoker (Quit 22 years aago.) alcohol intake: never Vital Signs Vital Signs Vital Signs: 09/07/22 08:52 Temperature 97.7 F L Temperature Source Temporal Pulse Rate 80 Respiratory Rate 20 H Blood Pressure 150/60 H Blood Pressure Mean 90 Blood Pressure Source Monitor Weight Weight: 289 lb Body Mass Index (BMI) 43.9 Debridement Note Debridement Note Wound debrided: midsternal chest ulcer cluster Wound Grade/Stage: Stage III Type of Debridement: Excisional debridement Anesthesia Used: 5% Lidocaine Gel Depth: Down to and including healthy tissue and in the subcutaneous layer Percentage of wound debrided: 100 Instrument Used: 5mm curette Tissue Removed: Devitalized tissue and slough Severity: Fat Layer Exposed Amount of bleeding with debridement: Mild Bleeding Controlled with: Pressure and Compression and gauze Patient tolerated procedure: Patient tolerated procedure well Debridement Free Text: Attempted to sharply debride the undermining at 2 o'clock. Post-Debridement Measurements and Additional Note: Post-Debridement Measurements/Treatment - Nurse 1 - General Ulcer Assessment Start: 08/31/22 08:47 Freq: Status: Active Protocol: ICS MobileSOFIA Activity Type Activity Date Activity User E-sign Co-sign Detail Recorded Client Recorded Date Recorded By Document 08/31/22 08:48 PL [id number] 08/31/22 08:48 PL Document 09/07/22 08:52 DL [id number] 09/07/22 08:56 DL 08/31/22 09/07/22 08:48 08:52 - Today's Visit Information Type of service Follow-up Visit Follow-up Visit (Physician/BANK VAULT CLERK (Physician/BANK VAULT CLERK ) ) Arrival Mode Ambulatory Ambulatory Transfer Assistance None None Patient Identification Verified (Name & Yes Yes ) Patient Requires Transmission-Based No No Precautions Height and Weight Body Mass Index (BMI) 43.9 43.9 BMI Classification Obese Obese Vital Signs Temperature (97.8 F-99.1 F) 97.6 F L 97.7 F L Temperature Source Temporal Temporal Pulse Rate (60-100) 81 80 Pulse Location Monitor Respiratory Rate (12-18) 18 20 H Respiratory rate source Observation Blood Pressure (90/60-120/80) 116/66 150/60 H Blood Pressure Mean 82 90 Source Monitor History Since Last Visit- (Skip if this is Patient's initial visit) Have you changed medications since your No No last visit? Any new allergies or adverse reactions No No Had a fall/change in ADL's that may No No increase risk of falls Signs or symptoms of abuse and/or No No neglect since last visit Have you been in the hospital since your No No last visit? Has dressing in place as prescribed Yes Yes Has compression in place as prescribed N/A N/A Has offloadiing in place as prescribed N/A Yes Experienced any changes in pain level or No management Pain Scale: 0-10 Numeric Is Patient Pain Free? Yes Yes - Nurse 1 - General Ulcer Measurement Start: 08/31/22 08:47 Freq: Status: Active Protocol: Activity Type Activity Date Activity User E-sign Co-sign Detail Recorded Client Recorded Date Recorded By Document 09/07/22 08:52 DL [id number] 09/07/22 08:56 DL 09/07/22 08:52 Wound Center Nurse 1 #5- STERNUM cluster -Current Size (cm) - Length 0.8 -Current Size (cm) - Width 0.9 -Current Size (cm) - Depth 0.3 -Total Square Cm 0.72 -Undermining/Tunneling Starts (O'clock 12 ) -Undermining/Tunneling Ends (O'clock) 2 -Maximum Distance (cm) 0.6 -Circular Undermining Yes -Exudate Amt Medium -Exudate Type Yellow/Green -Wound Margin Distinct, Outline Attached -Granulation Amt Small (1-33%) -Granulation Quality Herricks -Necrosis Amt Small (1-33%) -Necrotic Tissue Type Adherent Slough -Structure Exposed N/A -Texture (Fiona-wound Skin Appearance) Scarring -Moisture (Fiona-wound Skin Appearance) No Abnormality -Color (Fiona-wound Skin Appearance) No Abnormality -Temperature (Fiona-wound Skin No Abnormality Appearance) (Pt Warm) -Ulcer Cleansing Rinsed/ Irrigated with Saline -Foul Odor after Cleansing No -Anesthetic Used 5% Lidocaine Gel WC - Nurse 2 - General Ulcer CM Notes Start: 08/31/22 08:47 Freq: Status: Active Protocol: Activity Type Activity Date Activity User E-sign Co-sign Detail Recorded Client Recorded Date Recorded By Document 08/31/22 09:16 [id number] 08/31/22 09:22 Document 09/07/22 09:12 REID [id number] 09/07/22 09:18 08/31/22 09/07/22 09:16 09:12 Wound Center Nurse 2 #5- STERNUM cluster -Time 09:16 09:12 -Correct Patient Yes Yes -Correct Side, Site, Position Yes Yes -Correct Procedure Yes Yes -Procedure Performed Yes Yes -Type of Procedure Debridement Debridement -Clinical Debridement Subcutaneous Subcutaneous -Tissue Removed Subcutaneous Subcutaneous -Post Debridement (cm) - Length 1.0 1.3 -Post Debridement (cm) - Width 1.0 1.5 -Post Debridement (cm) - Depth 0.5 0.8 -Total Square (Post) (cm) 1.00 1.95 -Area of Debridement (cm) - Length 1.0 1.3 -Area of Debridement (cm) - Width 1.0 1.5 -Total Square (Area) (cm) 1.00 1.95 -Tunneling Yes Yes -Tunneling Position (O'clock) 2 2 -Tunneling Distance (cm) 0.8 0.6 -Undermining/Tunneling No No -Circular Undermining No No -Wound/Ulcer Outcome Not Healed Not Healed -Ulcer Cleansing Rinsed/ Rinsed/ Irrigated with Irrigated with Saline Saline -Foul Odor after Cleansing No No -Bioengineered Tissue No No -Expiration Date 09/07/23 -Product Lot Number [id number] -Percent Used 100 -Lot number of Saline Used [id number] -Bleeding Controlled with Pressure Pressure -Treatment Response Procedure Procedure Tolerated Well Tolerated Well -Offloading No No -Debridement - Subq, 1st 20sq cm No Yes -Apply Skin Sub - 1st 25 sq cm - Legs 1 Pain Scale: 0-10 Numeric Is Patient Pain Free? Yes Yes - Nurse 3 - General Ulcer D/C NN Start: 08/31/22 08:47 Freq: Status: Active Protocol: Activity Type Activity Date Activity User E-sign Co-sign Detail Recorded Client Recorded Date Recorded By Document 08/31/22 09:22 [id number] 08/31/22 09:24 Document 09/07/22 09:18 [id number] 09/07/22 09:19 08/31/22 09/07/22 09:22 09:18 Wound Care Center Nurse 3 #5- STERNUM cluster -Ulcer Cleansing Rinsed/ Rinsed/ Irrigated with Irrigated with Saline Saline -Foul Odor after Cleansing No No -Primary Dressing Applied Mepilex Border Mepilex Border -Mepilex Border 1 1 Pain Scale: 0-10 Numeric Is Patient Pain Free? Yes Yes - Visit Discharge Discharge Condition Stable Ambulatory Status Ambulatory Transportation Private Auto Medication Reconcilliation completed & Yes provided to patient/care provider Clinical Summary of Care Provided Yes Charges/Coding Procedures Integumentary [id number]: 04284 Skin sub graft trnk/arm/leg 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: CODE(S): L98.492 - Non-pressure chronic ulcer of skin of other sites with fat layer exposed (2) Type 2 diabetes mellitus: CODE(S): E11.9 - Type 2 diabetes mellitus without complications QUALIFIERS: Diabetes mellitus complication status: with kidney complications (3) History of coronary artery bypass graft: CODE(S): Z95.1 - Presence of aortocoronary bypass graft (4) ESRD (end stage renal disease) on dialysis: CODE(S): N18.6 - End stage renal disease; Z99.2 - Dependence on renal dialysis (5) Hypertension: CODE(S): I10 - Essential (primary) hypertension PLAN: Plan Patient evaluated at the wound healing center. His cardiothoracic surgeon office transferred his wound care to the wound center. His insurance denied approval for the advanced skin substitute Epifix. He would really benefit from an advanced wound healing product. We have opportunity to apply a donated sample of an advanced skin substitute, Matrion. Wound care - Applied the donated product of Matrion #2 covered with wound veil, steri strips and topped Mepilex. He was instructed to keep the bandage clean and dry. He is not to remove the wound veil if he has to change the dressing. Wound culture obtained on 07/06/22 which was positive for MSSA, Coag negative staph, and Klebsiella oxytoca. He has a PCN allergy he is tolerating Bactrim and Doxycycline. Encouraged patient to eat a high protein, low sodium, low carbohydrate diet. Continue dialysis as scheduled on . Follow up one week.
[2022-09-14 08:42] VITALS: BP 168/117; PULSE 92; RESP 20; TEMP 36.5; BMI 43.9
--- NOTE | 2022-09-14 09:42 | PCM.WC.PN ---
History of Present Illness Date of Service: 09/14/22 Chief Complaint: Mid-sternal ulcer History of Wound: This 62-year-old male with multiple comorbidities presents to the wound healing center for an ulcer on his mid sternum after CABG 01/11. He states that he had an DC while receiving dialysis and was transferred to [facility] where he had bypass surgery. He was discharged to [facility] for rehab. He was then readmitted to [facility] for fluid on his lungs. He said that he is not sure when the incision dehiscence occurred. He states he is receiving an antibiotic on the days he has dialysis. He is unsure of the antibiotic but it is for 6 weeks. He was referred to us for wound VAC changes and wound care. Patient has an extensive history of CAD, CABG, T2D, ESRD - on dialysis T--Mon, on Warfarin, CHF, HTN, Afib. He is a very poor historian. His wound has been managed by his cardiothoracic surgeon's practice until now. He has had a wound VAC since February 2022. He comes here today for evaluation and treatment of his healing sternal ulcer. Wound culture obtained on 07/06/22 which was positive for MSSA, Coag negative staph, Klebsiella oxytoca. He was started on Bactrim and Doxycycline to treat the organisms. Patient denies fever, chills, nausea, vomiting or diarrhea. Progress of Wound: Midsternal ulcer undermining around 2 o'clock has decreased this week. His insurance denied approval for the advanced skin substitute Epifix. We have opportunity to apply a donated sample of an advanced skin substitute, Matrion #3 applied. Objective Data Objective Data Vital Signs: Vital Signs Temp Pulse Resp BP 97.7 F L 92 20 H 168/117 H 09/14/22 08:42 09/14/22 08:42 09/14/22 08:42 09/14/22 08:42 Weight: 289 lb Body Mass Index (BMI) 43.9 Charges/Coding Procedures Integumentary 150xxx-152xx: [id number] Skin sub graft trnk/arm/leg Debridement Note Debridement Note Wound debrided: midsternal chest ulcer cluster Wound Grade/Stage: Stage III Type of Debridement: Excisional debridement Anesthesia Used: 5% Lidocaine Gel Depth: Down to and including healthy tissue and in the subcutaneous layer Percentage of wound debrided: 100 Instrument Used: 5mm curette Tissue Removed: Devitalized tissue and slough Severity: Fat Layer Exposed Amount of bleeding with debridement: Mild Bleeding Controlled with: Pressure and Compression and gauze Patient tolerated procedure: Patient tolerated procedure well Post-Debridement Measurements and Additional Note: Post-Debridement Measurements/Treatment WC - Nurse 1 - General Ulcer Assessment Start: 08/31/22 08:47 Freq: Status: Active Protocol: ROSS Activity Type Activity Date Activity User E-sign Co-sign Detail Recorded Client Recorded Date Recorded By Document 08/31/22 08:48 PL [id number] 08/31/22 08:48 PL Document 09/07/22 08:52 DL [id number] 09/07/22 08:56 DL Document 09/14/22 08:42 DL [id number] 09/14/22 08:49 DL 08/31/22 09/07/22 09/14/22 08:48 08:52 08:42 WC - Today's Visit Information Type of service Follow-up Visit Follow-up Visit Follow-up Visit (Physician/DIRECTOR OF CARDIAC CATH LAB (Physician/DIRECTOR OF CARDIAC CATH LAB (Physician/DIRECTOR OF CARDIAC CATH LAB ) ) ) Arrival Mode Ambulatory Ambulatory Ambulatory Transfer Assistance None None None Patient Identification Verified (Name & Yes Yes Yes ) Patient Requires Transmission-Based No No No Precautions Finger Stick Blood Sugar(mg/dl) (if 157 indicated): Blood Sugar Stated by Patient Height and Weight Body Mass Index (BMI) 43.9 43.9 43.9 BMI Classification Obese Obese Obese Vital Signs Temperature (97.8 F-99.1 F) 97.6 F L 97.7 F L 97.7 F L Temperature Source Temporal Temporal Temporal Pulse Rate (60-100) 81 80 92 Pulse Location Monitor Monitor Respiratory Rate (12-18) 18 20 H 20 H Respiratory rate source Observation Observation Blood Pressure (90/60-120/80) 116/66 150/60 H 168/117 H Blood Pressure Mean (mm Hg) 82 90 134 Source Monitor Monitor History Since Last Visit- (Skip if this is Patient's initial visit) Have you changed medications since your No No No last visit? Any new allergies or adverse reactions No No No Had a fall/change in ADL's that may No No No increase risk of falls Signs or symptoms of abuse and/or No No No neglect since last visit Have you been in the hospital since your No No No last visit? Has dressing in place as prescribed Yes Yes Yes Has compression in place as prescribed N/A N/A N/A Has offloadiing in place as prescribed N/A Yes N/A Experienced any changes in pain level or No No management Pain Scale: 0-10 Numeric Is Patient Pain Free? Yes Yes Yes WC - Nurse 1 - General Ulcer Measurement Start: 08/31/22 08:47 Freq: Status: Active Protocol: Activity Type Activity Date Activity User E-sign Co-sign Detail Recorded Client Recorded Date Recorded By Document 09/07/22 08:52 DL [id number] 09/07/22 08:56 DL Document 09/14/22 08:42 DL [id number] 09/14/22 08:49 DL 09/07/22 09/14/22 08:52 08:42 Wound Center Nurse 1 #5- STERNUM cluster -Current Size (cm) - Length 0.8 1.2 -Current Size (cm) - Width 0.9 1.3 -Current Size (cm) - Depth 0.3 0.6 -Total Square Cm 0.72 1.56 -Photo Taken Yes -Undermining/Tunneling Starts (O'clock 12 1 ) -Undermining/Tunneling Ends (O'clock) 2 2 -Maximum Distance (cm) 0.6 0.6 -Circular Undermining Yes -Exudate Amt Medium Medium -Exudate Type Yellow/Green Serosanguineous -Wound Margin Distinct, Distinct, Outline Outline Attached Attached -Granulation Amt Small (1-33%) Medium (34-66%) -Granulation Quality [place] Red -Necrosis Amt Small (1-33%) Medium (34-66%) -Necrotic Tissue Type Adherent Slough Adherent Slough -Structure Exposed N/A N/A -Texture (Fiona-wound Skin Appearance) Scarring Scarring -Moisture (Fiona-wound Skin Appearance) No Abnormality No Abnormality -Color (Fiona-wound Skin Appearance) No Abnormality No Abnormality -Temperature (Fiona-wound Skin No Abnormality No Abnormality Appearance) (Pt Warm) (Pt Warm) -Tenderness on Palpation (Fiona-wound No Skin Appearance) -Ulcer Cleansing Rinsed/ Soap and Water Irrigated with Saline -Foul Odor after Cleansing No No -Anesthetic Used 5% Lidocaine 5% Lidocaine Gel Gel WC - Nurse 2 - General Ulcer CM Notes Start: 08/31/22 08:47 Freq: Status: Active Protocol: Activity Type Activity Date Activity User E-sign Co-sign Detail Recorded Client Recorded Date Recorded By Document 08/31/22 09:16 [id number] 08/31/22 09:22 JF Document 09/07/22 09:12 [id number] 09/07/22 09:18 08/31/22 09/07/22 09:16 09:12 Wound Center Nurse 2 #5- STERNUM cluster -Time 09:16 09:12 -Correct Patient Yes Yes -Correct Side, Site, Position Yes Yes -Correct Procedure Yes Yes -Procedure Performed Yes Yes -Type of Procedure Debridement Debridement -Clinical Debridement Subcutaneous Subcutaneous -Tissue Removed Subcutaneous Subcutaneous -Post Debridement (cm) - Length 1.0 1.3 -Post Debridement (cm) - Width 1.0 1.5 -Post Debridement (cm) - Depth 0.5 0.8 -Total Square (Post) (cm) 1.00 1.95 -Area of Debridement (cm) - Length 1.0 1.3 -Area of Debridement (cm) - Width 1.0 1.5 -Total Square (Area) (cm) 1.00 1.95 -Tunneling Yes Yes -Tunneling Position (O'clock) 2 2 -Tunneling Distance (cm) 0.8 0.6 -Undermining/Tunneling No No -Circular Undermining No No -Wound/Ulcer Outcome Not Healed Not Healed -Ulcer Cleansing Rinsed/ Rinsed/ Irrigated with Irrigated with Saline Saline -Foul Odor after Cleansing No No -Bioengineered Tissue No No -Expiration Date 09/07/23 -Product Lot Number [id number] -Percent Used 100 -Lot number of Saline Used [id number] -Bleeding Controlled with Pressure Pressure -Treatment Response Procedure Procedure Tolerated Well Tolerated Well -Offloading No No -Debridement - Subq, 1st 20sq cm No Yes -Apply Skin Sub - 1st 25 sq cm - Legs 1 Pain Scale: 0-10 Numeric Is Patient Pain Free? Yes Yes ARABELLA - Nurse 3 - General Ulcer D/C NN Start: 08/31/22 08:47 Freq: Status: Active Protocol: Activity Type Activity Date Activity User E-sign Co-sign Detail Recorded Client Recorded Date Recorded By Document 08/31/22 09:22 [id number] 08/31/22 09:24 Document 09/07/22 09:18 [id number] 09/07/22 09:19 08/31/22 09/07/22 09:22 09:18 Wound Care Center Nurse 3 #5- STERNUM cluster -Ulcer Cleansing Rinsed/ Rinsed/ Irrigated with Irrigated with Saline Saline -Foul Odor after Cleansing No No -Primary Dressing Applied Mepilex Border Mepilex Border -Mepilex Border 1 1 Pain Scale: 0-10 Numeric Is Patient Pain Free? 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: CODE(S): L98.492 - Non-pressure chronic ulcer of skin of other sites with fat layer exposed (2) Type 2 diabetes mellitus: CODE(S): E11.9 - Type 2 diabetes mellitus without complications QUALIFIERS: Diabetes mellitus complication status: with kidney complications (3) History of coronary artery bypass graft: CODE(S): Z95.1 - Presence of aortocoronary bypass graft (4) ESRD (end stage renal disease) on dialysis: CODE(S): N18.6 - End stage renal disease; Z99.2 - Dependence on renal dialysis (5) Hypertension: CODE(S): I10 - Essential (primary) hypertension PLAN: Plan Patient evaluated at the wound healing center. His cardiothoracic surgeon office transferred his wound care to the wound center. His insurance denied approval for the advanced skin substitute Epifix. He would really benefit from an advanced wound healing product. We have opportunity to apply a donated sample of an advanced skin substitute, Matrion. Wound care - Applied the donated product of Matrion #3 covered with wound veil, steri strips and topped Mepilex. He was instructed to keep the bandage clean and dry. He is not to remove the wound veil if he has to change the dressing. Wound culture obtained on 07/06/22 which was positive for MSSA, Coag negative staph, and Klebsiella oxytoca. He has a PCN allergy he is tolerating Bactrim and Doxycycline. Encouraged patient to eat a high protein, low sodium, low carbohydrate diet. Continue dialysis as scheduled on . Follow up one week.
== END 2022-09-19 23:59 | disposition home or self-care (01) ==
LOC: WC 08:45
PROVIDERS: PCP Internal Medicine; Visit Provider Nurse Practitioner Family
DX: L98.492 Non-pressure chronic ulcer of skin of other sites with fat layer exposed (principal); I13.2 Hypertensive heart and chronic kidney disease with heart failure and with stage 5 chronic kidney disease, or end stage renal disease; E11.51 Type 2 diabetes mellitus with diabetic peripheral angiopathy without gangrene; Z99.2 Dependence on renal dialysis; I50.32 Chronic diastolic (congestive) heart failure; E11.22 Type 2 diabetes mellitus with diabetic chronic kidney disease; E11.42 Type 2 diabetes mellitus with diabetic polyneuropathy; N18.6 End stage renal disease; Z79.4 Long term (current) use of insulin; Y83.2 Surgical operation with anastomosis, bypass or graft as the cause of abnormal reaction of the patient, or of later complication, without mention of misadventure at the time of the procedure; T81.31XA Disruption of external operation (surgical) wound, not elsewhere classified, initial encounter; I25.10 Atherosclerotic heart disease of native coronary artery without angina pectoris; E78.00 Pure hypercholesterolemia, unspecified; I25.2 Old myocardial infarction; Z79.82 Long term (current) use of aspirin; Z79.01 Long term (current) use of 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; Z87.891 Personal history of nicotine dependence
CPT/HCPCS: 11042; 15271

== ENCOUNTER 2022-09-15 14:13 | Emergency (ER) | payer MEDICARE, SELFPAY ==
[2022-08-26 09:38] VITALS: BMI 46.3
[2022-09-15 14:14] VITALS: BP 142/78; PULSE 91; RESP 18; TEMP 36.6; O2SAT 96
--- NOTE | 2022-09-15 16:42 | EKG12_ITS ---
Test Reason : Blood Pressure : / mmHG Vent. Rate : 093 BPM Atrial Rate : 093 BPM P-R Int : 158 ms QRS Dur : 082 ms QT Int : 368 ms P-R-T Axes : 059 043 092 degrees QTc Int : 457 ms Normal sinus rhythm Nonspecific ST and T wave abnormality Abnormal ECG When compared with ECG of 09-MAR-2022 17:30, Nonspecific T wave abnormality no longer evident in Inferior leads T wave inversion less evident in Lateral leads Confirmed by DIANA HARVEY, LAURA ([id number]), social media editor KARRI AMIN ([id number]) on 09/16/2022 12:48:36 PM Referred By: KEATON Confirmed By:LAURA ORTIZ MD
[2022-09-15 17:05] VITALS: PULSE 91; RESP 18; O2SAT 94; BMI 45.6
[2022-09-15 17:11] LABS: Absolute Lymphocyte Count 1.29 X10^3/uL (0.83-4.51); Absolute Neutrophil Count 9.2 X10^3/uL (2.0-7.7); Basophil# 0.02 X10^3/uL; Basophil% 0.2 % (0-1); Eosinophils% 0.9 % (0-5); Hemoglobin 10.6 g/dL (13.0-16.5); Lymphocyte # 1.29 X10^3/ul (0.83-4.51); Lymphocyte % 11.1 % (19-41); Mean Corp Hgb Conc 33.1 g/dL (32-36); Mean Corpuscular Hgb 33.1 pg (27.0-32.0); Monocyte# 0.92 X10^3/uL; Monocyte% 7.9 % (0-10); NRBC Flagged by Analyzer 0 % (0-5); Neutrophil # 9.22 X10^3/uL (2.7-7.7); Neutrophil % 79.6 % (47-70); Platelet Count 229 K/mm3 (150-450); RBC Distribution Width CV 14.6 % (11.6-14.6); White Blood Count 11.6 K/mm3 (4.4-11.0)
--- NOTE | 2022-09-15 17:11 | EDS_ITS ---
HPI History of Present Illness Chief Complaint: Weakness Informant: patient Onset/Context/Timing Onset: Yesterday Context: Gradual Onset Timing: Continuous Quality: Shaky, weak Location: Generalized Worsened by: Ambulation Relieved by: Nothing Narrative Narrative: Patient presents with generalized weakness and shakiness that began yesterday. Patient states he went to dialysis today. Patient states he missed his dialysis 2 days ago because he was out of town. Patient states that normally they take 4 to 5 L off of him during dialysis. Patient states that today they took 11 L off. Patient states he thought this would help. Patient states he feels shaky all over. Patient states his weakness is worse when he tries to ambulate. Patient has not fallen but feels like he has difficulty ambulating. Patient denies any chest pain or shortness of breath. Patient denies any nausea or vomiting. [facility] Medical History (HFpEF) heart failure with preserved ejection fraction Acute exacerbation of CHF (congestive heart failure) [id number] kidney injury Anemia Anxiety Atrial fibrillation [facility] Cardiology follow-up encounter Chest pain CHF (congestive heart failure) Chronic kidney failure Chronic renal failure, 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 Colonization status Congestive heart failure (CHF) Coronary artery disease COVID CPAP (continuous positive airway pressure) dependence Delayed wound healing Depression Diabetes mellitus type 2 in obese Dialysis catheter clot or failure Diastolic CHF, acute Dietary restriction Dupuytrens contracture DVT (deep venous thrombosis) Edema of left lower leg due to peripheral venous insufficiency End stage renal disease Equinus contracture of left ankle ESRD (end stage renal disease) on dialysis ESRD (end stage renal disease) on dialysis Former smoker Gastric reflux Hammer toe of left foot Hemodialysis patient High cholesterol History of DVT of lower extremity History of edema History of IBS History of pain when walking History of renal disease History of stress test Hx of echocardiogram Hypertension Insulin dependent diabetes mellitus Loss of consciousness Loss of hearing Malnutrition Morbid obesity NSTEMI (non-ST elevated myocardial infarction) Other specified peripheral vascular diseases Pressure ulcer Problem with dialysis access Pulmonary hypertension Renal failure, chronic Shortness of breath on exertion Spitting suture Syncope Transfusion (red blood cell) associated hemochromatosis Trigger finger Type 2 diabetes mellitus Type 2 diabetes mellitus with diabetic polyneuropathy Ulcer of left lower extremity with fat layer exposed Wears glasses Home Medications ascorbic acid (vitamin C) 1,000 mg tablet (Vitamin C) 1,000 mg PO DAILY suppliment 12/02/16 [History Last Taken 01/05/22] buspirone 10 mg tablet 10 mg PO BID depression 12/02/16 [History Last Taken 01/05/22] dicyclomine 20 mg tablet 20 mg PO TID IBS 12/02/16 [History Last Taken 01/05/22] venlafaxine 150 mg capsule,extended release 24 hr (Effexor XR) 150 mg PO DAILY depression 12/02/16 [History Last Taken 01/05/22] simethicone 80 mg chewable tablet (Gas Relief (simethicone)) 80 mg PO TID PRN PRN Indigestion 03/06/21 [History Last Taken 01/05/22] calcium acetate(phosphat bind) 667 mg capsule 1,334 - 2,001 mg PO TIDCM supplement 03/07/21 [History Last Taken 01/05/22] atorvastatin 80 mg tablet 80 mg PO DAILY cholesterol 12/23/21 [History Last Taken 01/05/22] cinnamon bark 500 mg capsule 500 mg PO DAILY supplement 12/23/21 [History Last Taken 01/05/22] gabapentin 600 mg tablet 300 mg PO DAILY nerve pain 12/23/21 [History Last Taken 01/05/22] insulin NPH isoph U-100 human 100 unit/mL (3 mL) subcutaneous pen (Novolin N FlexPen) 5 unit subcut DAILY dm 12/23/21 [History Last Taken 01/06/22] midodrine 10 mg tablet 10 mg PO TID bp 12/23/21 [History Last Taken 01/06/22] pyridoxine (vitamin B6) 50 mg tablet (Vitamin B-6) 50 mg PO DAILY 12/23/21 [History Last Taken 01/05/22] aspirin 81 mg tablet,delayed release 81 mg PO BREAKFAST #30 tabs 12/27/21 [Rx Last Taken 01/05/22] nitroglycerin 0.4 mg sublingual tablet 0.4 mg sublingual Q5M PRN chest pain #25 tabs 12/30/21 [Rx Last Taken 01/06/22] insulin NPH isoph U-100 human 100 unit/mL (3 mL) subcutaneous pen (Novolin N FlexPen) 18 unit subcut QHS DM 01/06/22 [History Last Taken 01/05/22] isosorbide mononitrate 30 mg tablet,extended release 24 hr 30 mg PO DAILY HEART 01/06/22 [History Last Taken 01/05/22] pantoprazole 40 mg tablet,delayed release 40 mg PO DAILY GERD 01/06/22 [History Last Taken 01/05/22] amiodarone 200 mg tablet 200 mg PO DAILY 02/10/22 [History Last Taken Unknown] clopidogrel 75 mg tablet 75 mg PO DAILY 02/10/22 [History Last Taken Unknown] levofloxacin 500 mg tablet 500 mg PO DAILY 02/10/22 [History Last Taken Unknown] carvedilol 3.125 mg tablet 3.125 mg PO DAILY 05/09/22 [History Last Taken Unknown] nifedipine 90 mg tablet,extended release 24 hr 90 mg PO DAILY 05/09/22 [History Last Taken Unknown] sucroferric oxyhydroxide 500 mg chewable tablet (Velphoro) 500 mg PO DAILY 05/09/22 [History Last Taken Unknown] warfarin 3 mg tablet 9 mg PO DAILY 05/09/22 [History Last Taken Unknown] doxycycline hyclate 100 mg capsule 100 mg PO BID 14 days #28 caps 07/11/22 [Rx Last Taken Unknown] sulfamethoxazole 800 mg-trimethoprim 160 mg tablet (Bactrim DS) 1 tab PO Q12H 14 days #28 tabs 07/20/22 [Rx Last Taken Unknown] atorvastatin 80 mg tablet (Lipitor) 80 mg PO DAILY 07/29/22 [History Last Taken Unknown] darbepoetin saji in polysorbat 40 mcg/0.4 mL in polysorbate injection syringe (Aranesp) 40 mcg subcut QWEEK 07/29/22 [History Last Taken Unknown] dicyclomine 20 mg tablet 20 mg PO TID 07/29/22 [History Last Taken Unknown] gabapentin 600 mg tablet (Neurontin) 600 mg PO BID 07/29/22 [History Last Taken Unknown] glucagon 1 mg injection kit 1 mg PRN PRN Hypoglycemia 07/29/22 [History Last Taken Unknown] midodrine 5 mg tablet 20 mg PO TID 07/29/22 [History Last Taken Unknown] simethicone 80 mg chewable tablet 80 mg PO Q6H 07/29/22 [History Last Taken Unknown] sucroferric oxyhydroxide 500 mg chewable tablet (Velphoro) 500 mg PO BID 07/29/22 [History Last Taken Unknown] venlafaxine 150 mg capsule,extended release 24 hr (Effexor XR) 150 mg PO DAILY 07/29/22 [History Last Taken Unknown] Allergy/AdvReac Type Severity Reaction Status Date / Time cephalexin Allergy Hives Verified 09/15/22 14:17 Penicillins Allergy Hives Verified 09/15/22 14:17 Family History Mother Diabetes Heart disease Hypertension Surgical History History of arteriovenostomy for renal dialysis (~07/2020) History of carpal tunnel surgery of left wrist History of carpal tunnel surgery of right wrist History of colonoscopy History of quadruple bypass History of surgery History of tonsillectomy and adenoidectomy Social History housing: house Smoking Status: Former smoker alcohol intake: never ROS ROS ED Constitutional Constitutional ED: Denies chills or fever(s) Eyes Eyes: Denies blurry vision or change in vision ENT ENT ED: Denies rhinorrhea or sore throat Cardiovascular Cardiovascular: Denies chest pain or palpitations Respiratory/Chest Respiratory/Chest: Denies cough or dyspnea Gastrointestinal Gastrointestinal: Denies nausea or vomiting Genitourinary Genitourinary ED: Denies dysuria or hematuria Musculoskeletal Musculoskeletal: Denies back pain or neck pain Integumentary Denies abscess or rash Neurologic Neurologic: Reports weakness; Denies headache(s) Allergic/Immunologic Allergic/Immunologic ED: Denies mouth swelling or urticaria EXAM Physical Exam Const Vital Signs: 09/15/22 14:14 09/15/22 17:05 09/15/22 17:05 Temperature 97.8 F Temperature Source Temporal Pulse Rate 91 91 Respiratory Rate 18 18 Respiratory Effort Normal Respiratory Pattern Normal Blood Pressure 142/78 H Blood Pressure Mean 99 Pulse Ox 96 94 Oxygen Delivery Method Room Air Room Air 09/15/22 17:44 09/15/22 19:05 Temperature Temperature Source Pulse Rate 94 68 Respiratory Rate 18 18 Respiratory Effort Respiratory Pattern Blood Pressure 141/56 H 111/68 Blood Pressure Mean 84 82 Pulse Ox 99 98 Oxygen Delivery Method Room Air Room Air Positive well nourished and well developed General Appearance ED: well developed HEENT Reports moist mucous membranes Neck supple and no JVD Resp normal respiratory effort and clear to auscultation bilaterally Cardio regular rate and regular rhythm GI normal to inspection, nondistended, normoactive bowel sounds and non-tender Palpation: soft Extremity normal to inspection Extremity Narrative: There is a good palpable thrill noted over the AV fistula in the right forearm. There is no calf tenderness or edema. General Extremety ED: Negative for edema or tenderness General Extremity: Negative for edema Neuro oriented x3, CN's II-XII intact bilaterally and no sensory deficits noted Sensorium / Orientation: alert Motor Exam: general weakness Psych mental status grossly normal Skin no rashes or lesions noted MDM MDM MDM Narrative Medical decision making narrative: Differential diagnosis includes electrolyte abnormality, dehydration, acute on chronic kidney disease, hyperglycemia, hypoglycemia, cardiac dysrhythmia, and cardiac ischemia. EKG will be obtained to assess for new slightly cardiac dysrhythmia and cardiac ischemia. CBC will be obtained to assess for leukocytosis and anemia. Basic metabolic profile will be obtained to assess for electrolyte abnormality and renal function. High-sensitivity troponin will be obtained to assess for cardiac ischemia. Lab Data Attestation: I reviewed the patient's lab results. Lab results narrative: CBC was reviewed. There is a slight leukocytosis of 11.6. Hemoglobin was 10.6 and hematocrit was 32.0. This is consistent with prior results. Platelets were normal. Basic metabolic profile showed a BUN of 16 and creatinine of 9.57. These are consistent with prior results. Glucose was slightly elevated at 146. High-sensitivity troponin was reviewed and was normal at 29. Labs: Laboratory Results - last 24 hr 09/15/22 17:00 WBC 11.6 H RBC 3.20 L Hgb 10.6 L Hct 32.0 L MCV 100.0 H MCH 33.1 H MCHC 33.1 RDW Std Deviation 54.0 H RDW Coeff of Kassandra 14.6 Plt Count 229 MPV 10.0 Immature Gran % (Auto) 0.300 Neut % (Auto) 79.6 H Lymph % (Auto) 11.1 L Stevens % (Auto) 7.9 Eos % (Auto) 0.9 Baso % (Auto) 0.2 Absolute Neuts (auto) 9.2 H Absolute Lymphs (auto) 1.29 Nucleated RBC % 0 Sodium 135 L Potassium 4.2 Chloride 94 L Carbon Dioxide 29.0 Anion Gap 12 BUN 60 H Creatinine 9.57 H* Estim Creat Clear Calc 7.84 Est GFR (MDRD) Af Amer 7 L Est GFR (MDRD) Non-Af 6 L BUN/Creatinine Ratio 6.3 L Glucose 146 H Calcium 9.0 Troponin I High Sens 29 EKG Initial EKG: Attestation: I personally reviewed and interpreted this EKG as follows: Interpretation: Sinus Rhythm (93) and Non-Specific ST Changes Comments: EKG was obtained. On my independent interpretation, it showed a normal sinus rhythm with a rate of 93. NE interval, QRS interval, and QTc intervals were all normal. Ringle was normal. There are nonspecific ST-T wave changes. Prior EKG tracings: available for review Prior: Unchanged (03/09/2022) Treatment and Re-Evaluation :: Patient was advised of his findings. Initially, patient stated that he did not feel he was able to bear weight on his feet and will be able to go home. Patient was advised that he would need to go to a intermediate and that he will have to be admitted to the hospital for 3 days prior to that. Patient initially was agreeable to this. However, patient stated that he felt like maybe he could go home and wants to try to go to a friend's house where his friend will be able to help him at home. Patient states he has a cane at home. I offered to get the patient a walker he declined. Patient was instructed to follow-up with his primary care physician in 3 to 5 days. Patient was instructed return if worse in any way. Patient understood and was agreeable with the plan. All questions were answered. Discharge Plan Triage Chief Complaint: Weakness ED Provider: Immanuel Nava Dx/Rx/DC Orders Clinical Impression: General weakness, ESRD (end stage renal disease) on dialysis Instructions: ED Weakness (Uncertain Cause) Prescriptions: No Action carvedilol 3.125 mg tablet 3.125 mg PO DAILY Velphoro 500 mg tablet,chewable 500 mg PO DAILY Patient Comments: CRUSH OR CHEW AND SWALLOW 1 TABLET THREE TIMES DAILY WITH MEALS AND 1 TAB LET WITH A SNACK IF EATING OUT TAKE 2 TABLETS nifedipine 90 mg tablet extended release 24hr 90 mg PO DAILY warfarin 3 mg tablet 9 mg PO DAILY ascorbic acid (vitamin C) [Vitamin C] 1,000 MG tablet 1,000 mg PO DAILY Patient Comments: vitamin venlafaxine [Effexor XR] 150 MG capsule 150 mg PO DAILY Patient Comments: depression dicyclomine 20 MG tablet 20 mg PO TID Patient Comments: fatoumata buspirone 10 MG tablet 10 mg PO BID Patient Comments: anxiety simethicone [Gas Relief (simethicone)] 80 MG tablet,chewable 80 mg PO TID PRN PRN (Reason: Indigestion) calcium acetate(phosphat bind) 667 mg capsule 1,334 - 2,001 mg PO TIDCM Patient Comments: TAKE 1 CAPSULE DAILY atorvastatin 80 mg tablet 80 mg PO DAILY gabapentin 600 mg tablet 300 mg PO DAILY pyridoxine (vitamin B6) [Vitamin B-6] 50 mg Tablet 50 mg PO DAILY midodrine 10 mg tablet 10 mg PO TID Patient Comments: TAKE 1 TABLET THREE TIMES DAILY Novolin N FlexPen 100 unit/mL (3 mL) insulin pen 5 unit SUBCUT DAILY Patient Comments: INJECT 5UNITS IN THE MORNING AND 18 UNITS SUBCUTANEOUSLY AT BEDTIME Rx Instructions: INJECT 5UNITS IN THE MORNING AND 18 UNITS SUBCUTANEOUSLY AT BEDTIME cinnamon bark 500 mg capsule 500 mg PO DAILY Patient Comments: 1 capsule by mouth as directed aspirin 81 mg Tablet,Delayed Release (Dr/Ec) 81 mg PO BREAKFAST Qty: 30 1RF nitroglycerin 0.4 mg tablet, sublingual 0.4 mg sublingual Q5M PRN (Reason: chest pain) Qty: 25 0RF Rx Instructions: do not exceed 3 doses per episode isosorbide mononitrate 30 mg Tablet Extended Release 24 Hr 30 mg PO DAILY pantoprazole 40 mg tablet,delayed release (DR/EC) 40 mg PO DAILY Novolin N FlexPen 100 unit/mL (3 mL) insulin pen 18 unit SUBCUT QHS Patient Comments: INJECT 4 UNITS IN THE MORNING AND 16 UNITS SUBCUTANEOUSLY AT BEDTIME Rx Instructions: INJECT 5UNITS IN THE MORNING AND 18 UNITS SUBCUTANEOUSLY AT BEDTIME amiodarone 200 mg Tablet 200 mg PO DAILY clopidogrel 75 mg tablet 75 mg PO DAILY Patient Comments: 1 tablet by mouth as directed levofloxacin [Levaquin] 500 mg Tablet 500 mg PO DAILY sulfamethoxazole-trimethoprim [Bactrim DS] 800-160 mg tablet 1 tab PO Q12H 14 Days Qty: 28 0RF glucagon 1 mg Kit 1 mg PRN PRN (Reason: Hypoglycemia) atorvastatin [Lipitor] 80 mg Tablet 80 mg PO DAILY gabapentin [Neurontin] 600 mg Tablet 600 mg PO BID Rx Instructions: for 180 days midodrine [ProAmatine] 5 mg Tablet 20 mg PO TID Rx Instructions: do not give last dose of day after 6PM or within 4 hrs of bedtime venlafaxine [Effexor XR] 150 mg Capsule,Extended Release 24hr 150 mg PO DAILY dicyclomine [Bentyl] 20 mg Tablet 20 mg PO TID simethicone [Mylicon] 80 mg Tablet,Chewable 80 mg PO Q6H Aranesp (in polysorbate) 40 mcg/0.4 mL Syringe 40 mcg SUBCUT QWEEK Velphoro 500 mg Tablet,Chewable 500 mg PO BID doxycycline hyclate 100 mg capsule 100 mg PO BID 14 Days Qty: 28 1RF Primary Care Provider: Yola Ng Referrals: Yola Ng MD [Primary Care Provider] - 3-5 Days Disposition Disposition: Home, Self Care Discharge Date/Time: 09/15/22 20:48
[2022-09-15 17:39] LABS: Anion Gap 12 (5-15); BUN 60 mg/dL (7-18); BUN/Creat Ratio 6.3 RATIO (10-20); Chloride 94 mmol/L (98-107); Creatinine, Serum 9.57 mg/dL (0.70-1.30); EST Glomerular Filtration Rate 6 mL/min (>60); Est Glom Filt Rate - Afr Amer 7 mL/min (>60); Estimated Creatinine Clearance 7.84 ml/min; Glucose 146 mg/dL (74-106); Potassium 4.2 mmol/L (3.5-5.1); Sodium Level 135 mmol/L (136-145); Troponin-I HS 29 pg/mL (3.0-78.0)
[2022-09-15 17:44] VITALS: BP 141/56; PULSE 94; RESP 18; O2SAT 99
[2022-09-15 19:05] VITALS: BP 111/68; PULSE 68; RESP 18; O2SAT 98
--- NOTE | 2022-09-15 19:24 | ED.RN ---
Patient states he does not feel comfortable enough to ambulate. States he barely walked 25 feet from car to the dialysis entrance and required a wheelchair.
--- NOTE | 2022-09-15 19:30 | ED.RN ---
Patient willing to be admitted for prison placement
--- NOTE | 2022-09-15 20:42 | CM.ED ---
Social Work Referral Source: MD Nava Referral Reason: SD MD Nava met with SW and reviewed patient's presenting symptoms as well as concerns regarding his ability to go home and be safe. SW informed MD patient will need precert for insurance coverage. Hospitalist to review, however, patient decided to leave and stay with a friend. SW met with patient and introduced herself and role as [facility] SW. Patient agreeable to talk. SW reviewed [facility] programs and encouraged the patient to contact them for a free assessment for in and out of home services. Patient receptive towards information and reports no other needs. Yessenia Rodgers INTERACTIVE PRODUCER, [place]
--- NOTE | 2022-09-15 20:47 | ED.RN ---
IV removed intact. Wheeled from dept., home with family.
== END 2022-09-15 20:48 | disposition home or self-care (01) ==
PROVIDERS: Emergency Provider Emergency Medicine; PCP Internal Medicine; Visit Provider Emergency Medicine
DX: R53.1 Weakness (principal); I13.2 Hypertensive heart and chronic kidney disease with heart failure and with stage 5 chronic kidney disease, or end stage renal disease; Z99.2 Dependence on renal dialysis; I50.32 Chronic diastolic (congestive) heart failure; E11.22 Type 2 diabetes mellitus with diabetic chronic kidney disease; E11.42 Type 2 diabetes mellitus with diabetic polyneuropathy; N18.6 End stage renal disease; Z79.4 Long term (current) use of insulin; I25.10 Atherosclerotic heart disease of native coronary artery without angina pectoris; Z87.891 Personal history of nicotine dependence; E78.00 Pure hypercholesterolemia, unspecified; F32.A Depression, unspecified; Z99.89 Dependence on other enabling machines and devices; Z79.899 Other long term (current) drug therapy; K21.9 Gastro-esophageal reflux disease without esophagitis; Z79.02 Long term (current) use of antithrombotics/antiplatelets
CPT/HCPCS: 36415; 80048; 84484; 85025; 93005; 99285; A4216

== ENCOUNTER 2022-10-19 08:45 | Outpatient (RCR) | payer MEDICARE, SELFPAY ==
[2022-08-26 09:38] VITALS: BMI 46.3
[2022-09-20 00:18] VITALS: BP 168/117; PULSE 92; RESP 20; TEMP 36.5; BMI 43.9
[2022-09-21 08:45] VITALS: BP 130/62; PULSE 89; RESP 16; TEMP 36.4; BMI 43.9
--- NOTE | 2022-09-21 09:23 | PCM.WC.PN ---
History of Present Illness Date of Service: 09/21/22 Chief Complaint: Mid-sternal ulcer History of Wound: This 62-year-old male with multiple comorbidities presents to the wound healing center for an ulcer on his mid sternum after CABG 01/11. He states that he had an RI while receiving dialysis and was transferred to [facility] where he had bypass surgery. He was discharged to [facility] for rehab. He was then readmitted to [facility] for fluid on his lungs. He said that he is not sure when the incision dehiscence occurred. He states he is receiving an antibiotic on the days he has dialysis. He is unsure of the antibiotic but it is for 6 weeks. He was referred to us for wound VAC changes and wound care. Patient has an extensive history of CAD, CABG, T2D, ESRD - on dialysis T--Mon, on Warfarin, CHF, HTN, Afib. He is a very poor historian. His wound has been managed by his cardiothoracic surgeon's practice until now. He has had a wound VAC since February 2022. He comes here today for evaluation and treatment of his healing sternal ulcer. Wound culture obtained on 07/06/22 which was positive for MSSA, Coag negative staph, Klebsiella oxytoca. He was started on Bactrim and Doxycycline to treat the organisms. Patient denies fever, chills, nausea, vomiting or diarrhea. Progress of Wound: Midsternal ulcer undermining around 2 o'clock has resolved. His insurance denied approval for the advanced skin substitute Epifix. We have opportunity to apply a donated sample of an advanced skin substitute, Matrion #4 applied. Objective Data Objective Data Vital Signs: Vital Signs Temp Pulse Resp BP O2 Del Method 97.6 F L 89 16 130/62 H Room Air 09/21/22 08:45 09/21/22 08:45 09/21/22 08:45 09/21/22 08:45 09/21/22 08:45 Oxygen Delivery Method Room Air Weight: 289 lb Body Mass Index (BMI) 43.9 Charges/Coding Procedures Integumentary 150xxx-152xx: 23016 Skin sub graft trnk/arm/leg Debridement Note Debridement Note Wound debrided: midsternal chest ulcer cluster Wound Grade/Stage: Stage III Type of Debridement: Excisional debridement Anesthesia Used: 5% Lidocaine Gel Depth: Down to and including healthy tissue and in the subcutaneous layer Percentage of wound debrided: 100 Instrument Used: 3mm curette Tissue Removed: Devitalized tissue and slough Severity: Fat Layer Exposed Amount of bleeding with debridement: Mild Bleeding Controlled with: Pressure and Compression and gauze Patient tolerated procedure: Patient tolerated procedure well Post-Debridement Measurements and Additional Note: Post-Debridement Measurements/Treatment ARABELLA - Nurse 1 - General Ulcer Assessment Start: 09/21/22 08:45 Freq: Status: Active Protocol: ROSS Activity Type Activity Date Activity User E-sign Co-sign Detail Recorded Client Recorded Date Recorded By Document 09/21/22 08:45 DL [id number] 09/21/22 08:46 DL 09/21/22 08:45 WC - Today's Visit Information Type of service 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 ) Arrival Mode Ambulatory Transfer Assistance None Patient Identification Verified (Name & Yes ) Patient Requires Transmission-Based No Precautions Height and Weight Body Mass Index (BMI) 43.9 BMI Classification Obese Vital Signs Temperature (97.8 F-99.1 F) 97.6 F L Temperature Source Temporal Pulse Rate (60-100) 89 Pulse Location Monitor Respiratory Rate (12-18) 16 Respiratory rate source Observation Oxygen Delivery Method Room Air Blood Pressure (90/60-120/80) 130/62 H Blood Pressure Mean (mm Hg) 84 Source Monitor Position Sitting Blood Pressure Location Left Arm History Since Last Visit- (Skip if this is Patient's initial visit) Have you changed medications since your No last visit? Any new allergies or adverse reactions No Had a fall/change in ADL's that may No increase risk of falls Signs or symptoms of abuse and/or No neglect since last visit Have you been in the hospital since your No last visit? Has dressing in place as prescribed Yes Has compression in place as prescribed N/A Has offloadiing in place as prescribed N/A Experienced any changes in pain level or No management Left Footwear Diabetic Shoe Right Footwear Diabetic Shoe Pain Scale: 0-10 Numeric Is Patient Pain Free? Yes ARABELLA Ojeda Nurse 1 - General Ulcer Measurement Start: 09/21/22 08:45 Freq: Status: Active Protocol: Activity Type Activity Date Activity User E-sign Co-sign Detail Recorded Client Recorded Date Recorded By Document 09/21/22 08:45 DL [id number] 09/21/22 08:46 DL 09/21/22 08:45 Wound Center Nurse 1 #5- STERNUM cluster -Combined with other wound No -Current Size (cm) - Length 1 -Current Size (cm) - Width 0.9 -Current Size (cm) - Depth 0.4 -Total Square Cm 0.9 -Date of Last Picture (Recall this 09/21/22 field) -Photo Taken Yes -Epithelialization Small 1-33% -Tunneling No -Undermining/Tunneling No -Circular Undermining No -Exudate Amt Medium -Exudate Type Serosanguineous -Wound Margin Distinct, Outline Attached -Granulation Amt Small (1-33%) -Granulation Quality Red -Slough/Fibrin Yes -Necrosis Amt Medium (34-66%) -Necrotic Tissue Type Adherent Slough -Texture (Fiona-wound Skin Appearance) Assessed, Scarring -Moisture (Fiona-wound Skin Appearance) Assessed -Color (Fiona-wound Skin Appearance) Assessed -Temperature (Fiona-wound Skin No Abnormality Appearance) (Pt Warm) -Tenderness on Palpation (Fiona-wound No Skin Appearance) -Ulcer Cleansing Soap and Water -Foul Odor after Cleansing No -Anesthetic Used 5% Lidocaine Gel 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: CODE(S): L98.492 - Non-pressure chronic ulcer of skin of other sites with fat layer exposed (2) Type 2 diabetes mellitus: CODE(S): E11.9 - Type 2 diabetes mellitus without complications QUALIFIERS: Diabetes mellitus complication status: with kidney complications (3) History of coronary artery bypass graft: CODE(S): Z95.1 - Presence of aortocoronary bypass graft (4) ESRD (end stage renal disease) on dialysis: CODE(S): N18.6 - End stage renal disease; Z99.2 - Dependence on renal dialysis (5) Hypertension: CODE(S): I10 - Essential (primary) hypertension PLAN: Plan Patient evaluated at the wound healing center. His cardiothoracic surgeon office transferred his wound care to the wound center. His insurance denied approval for the advanced skin substitute Epifix. He would really benefit from an advanced wound healing product. We have opportunity to apply a donated sample of an advanced skin substitute, Matrion. Wound care - Applied the donated product of Matrion #4 covered with wound veil, steri strips and topped Mepilex. He was instructed to keep the bandage clean and dry. He is not to remove the wound veil if he has to change the dressing. Wound culture obtained on 07/06/22 which was positive for MSSA, Coag negative staph, and Klebsiella oxytoca. He has a PCN allergy he is tolerating Bactrim and Doxycycline. Encouraged patient to eat a high protein, low sodium, low carbohydrate diet. Continue dialysis as scheduled on . Follow up one week.
[2022-09-28 08:42] VITALS: BP 143/74; PULSE 82; RESP 16; TEMP 36.2; BMI 43.9
--- NOTE | 2022-09-28 10:14 | PCM.WC.PN ---
History of Present Illness Date of Service: 09/28/22 Chief Complaint: Mid-sternal ulcer History of Wound: This 62-year-old male with multiple comorbidities presents to the wound healing center for an ulcer on his mid sternum after CABG 01/11. He states that he had an [place] while receiving dialysis and was transferred to [facility] where he had bypass surgery. He was discharged to [facility] for rehab. He was then readmitted to [facility] for fluid on his lungs. He said that he is not sure when the incision dehiscence occurred. He states he is receiving an antibiotic on the days he has dialysis. He is unsure of the antibiotic but it is for 6 weeks. He was referred to us for wound VAC changes and wound care. Patient has an extensive history of CAD, CABG, T2D, ESRD - on dialysis T--Mon, on Warfarin, CHF, HTN, Afib. He is a very poor historian. His wound has been managed by his cardiothoracic surgeon's practice until now. He has had a wound VAC since February 2022. He comes here today for evaluation and treatment of his healing sternal ulcer. Wound culture obtained on 07/06/22 which was positive for MSSA, Coag negative staph, Klebsiella oxytoca. He was started on Bactrim and Doxycycline to treat the organisms. Patient denies fever, chills, nausea, vomiting or diarrhea. Progress of Wound: Midsternal ulcer is smaller. His insurance denied approval for the advanced skin substitute Epifix. We have opportunity to apply a donated sample of an advanced skin substitute, Matrion #5 applied. Objective Data Objective Data Vital Signs: Vital Signs Temp Pulse Resp BP O2 Del Method 97.2 F L 82 16 143/74 H Room Air 09/28/22 08:42 09/28/22 08:42 09/28/22 08:42 09/28/22 08:42 09/28/22 08:42 Oxygen Delivery Method Room Air Weight: 289 lb Body Mass Index (BMI) 43.9 Charges/Coding Procedures Integumentary 150xxx-152xx: 21193 Skin sub graft trnk/arm/leg Debridement Note Debridement Note Wound debrided: midsternal chest ulcer cluster Wound Grade/Stage: Stage III Type of Debridement: Excisional debridement Anesthesia Used: 5% Lidocaine Gel Depth: Down to and including healthy tissue and in the subcutaneous layer Percentage of wound debrided: 100 Instrument Used: 3mm curette Tissue Removed: Devitalized tissue and slough Severity: Fat Layer Exposed Amount of bleeding with debridement: Mild Bleeding Controlled with: Pressure and Compression and gauze Patient tolerated procedure: Patient tolerated procedure well Post-Debridement Measurements and Additional Note: Post-Debridement Measurements/Treatment ARABELLA - Nurse 1 - General Ulcer Assessment Start: 09/21/22 08:45 Freq: Status: Active Protocol: ROSS Activity Type Activity Date Activity User E-sign Co-sign Detail Recorded Client Recorded Date Recorded By Document 09/21/22 08:45 DL [id number] 09/21/22 08:46 DL Document 09/28/22 08:42 BMF [id number] 09/28/22 08:45 BMF 09/21/22 09/28/22 08:45 08:42 ARABELLA - Today's Visit Information Type of service Follow-up Visit Follow-up Visit (Physician/RESPIRATORY THERAPY INSTRUCTOR (Physician/RESPIRATORY THERAPY INSTRUCTOR ) ) Arrival Mode Ambulatory Ambulatory Transfer Assistance None None Patient Identification Verified (Name & Yes Yes ) Patient Requires Transmission-Based No No Precautions Height and Weight Body Mass Index (BMI) 43.9 43.9 BMI Classification Obese Obese Vital Signs Temperature (97.8 F-99.1 F) 97.6 F L 97.2 F L Temperature Source Temporal Temporal Pulse Rate (60-100) 89 82 Pulse Location Monitor Monitor Respiratory Rate (12-18) 16 16 Respiratory rate source Observation Observation Oxygen Delivery Method Room Air Room Air Blood Pressure (90/60-120/80) 130/62 H 143/74 H Blood Pressure Mean (mm Hg) 84 97 Source Monitor Monitor Position Sitting Sitting Blood Pressure Location Left Arm Left Arm History Since Last Visit- (Skip if this is Patient's initial visit) Have you changed medications since your No No last visit? Any new allergies or adverse reactions No No Had a fall/change in ADL's that may No No increase risk of falls Signs or symptoms of abuse and/or No No neglect since last visit Have you been in the hospital since your No No last visit? Has dressing in place as prescribed Yes Yes Has compression in place as prescribed N/A N/A Has offloadiing in place as prescribed N/A N/A Experienced any changes in pain level or No No management Left Footwear Diabetic Shoe Diabetic Shoe Right Footwear Diabetic Shoe Diabetic Shoe Pain Scale: 0-10 Numeric Is Patient Pain Free? Yes Yes - Nurse 1 - General Ulcer Measurement Start: 09/21/22 08:45 Freq: Status: Active Protocol: Activity Type Activity Date Activity User E-sign Co-sign Detail Recorded Client Recorded Date Recorded By Document 09/21/22 08:45 DL [id number] 09/21/22 08:46 DL Document 09/28/22 08:42 BM [id number] 09/28/22 08:45 BMF 09/21/22 09/28/22 08:45 08:42 Wound Center Nurse 1 #5- STERNUM cluster -Combined with other wound No No -Current Size (cm) - Length 1 0.9 -Current Size (cm) - Width 0.9 0.8 -Current Size (cm) - Depth 0.4 0.5 -Total Square Cm 0.9 0.72 -Date of Last Picture (Recall this 09/21/22 field) -Photo Taken Yes No -Epithelialization Small 1-33% Small 1-33% -Tunneling No No -Undermining/Tunneling No Yes -Undermining/Tunneling Starts (O'clock 11 ) -Undermining/Tunneling Ends (O'clock) 2 -Maximum Distance (cm) 0.4 -Circular Undermining No No -Exudate Amt Medium Small -Exudate Type Serosanguineous Serosanguineous -Wound Margin Distinct, Distinct, Outline Outline Attached Attached -Granulation Amt Small (1-33%) Large (67-100%) -Granulation Quality Red [place] -Slough/Fibrin Yes Yes -Necrosis Amt Medium (34-66%) Medium (34-66%) -Necrotic Tissue Type Adherent Slough Adherent Slough -Texture (Fiona-wound Skin Appearance) Assessed, Assessed, Scarring Scarring -Moisture (Fiona-wound Skin Appearance) Assessed Assessed -Color (Fiona-wound Skin Appearance) Assessed Assessed -Temperature (Fiona-wound Skin No Abnormality No Abnormality Appearance) (Pt Warm) (Pt Warm) -Tenderness on Palpation (Fiona-wound No No Skin Appearance) -Ulcer Cleansing Soap and Water Rinsed/ Irrigated with Saline -Foul Odor after Cleansing No No -Anesthetic Used 5% Lidocaine 5% Lidocaine Gel Gel - Nurse 2 - General Ulcer CM Notes Start: 09/21/22 08:45 Freq: Status: Active Protocol: Activity Type Activity Date Activity User E-sign Co-sign Detail Recorded Client Recorded Date Recorded By Document 09/21/22 10:21 PL [id number] 09/21/22 10:24 PL Document 09/28/22 09:02 ERID [id number] 09/28/22 09:06 REID 09/21/22 09/28/22 10:21 09:02 Wound Center Nurse 2 #5- STERNUM cluster -Time 09:15 09:05 -Correct Patient Yes Yes -Correct Side, Site, Position Yes Yes -Correct Procedure Yes Yes -Procedure Performed Yes Yes -Type of Procedure Debridement Debridement -Clinical Debridement Subcutaneous Subcutaneous -Tissue Removed Subcutaneous Subcutaneous -Post Debridement (cm) - Length 1.2 1.0 -Post Debridement (cm) - Width 1.2 1.0 -Post Debridement (cm) - Depth 0.4 0.4 -Total Square (Post) (cm) 1.44 1.00 -Area of Debridement (cm) - Length 1.2 1.0 -Area of Debridement (cm) - Width 1.2 1.0 -Total Square (Area) (cm) 1.44 1.00 -Tunneling No No -Undermining/Tunneling No No -Circular Undermining No No -Wound/Ulcer Outcome Not Healed Not Healed -Ulcer Cleansing Rinsed/ Rinsed/ Irrigated with Irrigated with Saline Saline -Foul Odor after Cleansing No No -Bioengineered Tissue No No -Expiration Date 09/07/23 09/07/23 -Product Lot Number [id number] -Percent Used 100 100 -Lot number of Saline Used [id number] -Bleeding Controlled with Pressure Pressure -Treatment Response Procedure Procedure Tolerated Well Tolerated Well -Offloading No -Debridement - Subq, 1st 20sq cm No No -Apply Skin Sub - 1st 25 sq cm - Legs 1 -Apply Skin Sub - 1st 25 sq cm - Feet 1 Pain Scale: 0-10 Numeric Is Patient Pain Free? Yes Yes - Nurse 3 - General Ulcer D/C NN Start: 09/21/22 08:45 Freq: Status: Active Protocol: Activity Type Activity Date Activity User E-sign Co-sign Detail Recorded Client Recorded Date Recorded By Document 09/28/22 09:07 [id number] 09/28/22 09:07 09/28/22 09:07 Wound Care Center Nurse 3 #5- STERNUM cluster -Primary Dressing Applied Mepilex Border -Primary Dressing Covered/Secured with Dry Gauze -Mepilex Border 1 Pain Scale: 0-10 Numeric Is Patient Pain Free? Yes WC - Visit Discharge Discharge Condition Stable Ambulatory Status Ambulatory Transportation Private Auto Medication Reconcilliation completed & Yes provided to patient/care provider Clinical Summary of Care Provided Yes Notes: Matrion skin sub sample used . 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: CODE(S): L98.492 - Non-pressure chronic ulcer of skin of other sites with fat layer exposed (2) Type 2 diabetes mellitus: CODE(S): E11.9 - Type 2 diabetes mellitus without complications QUALIFIERS: Diabetes mellitus complication status: with kidney complications (3) History of coronary artery bypass graft: CODE(S): Z95.1 - Presence of aortocoronary bypass graft (4) ESRD (end stage renal disease) on dialysis: CODE(S): N18.6 - End stage renal disease; Z99.2 - Dependence on renal dialysis (5) Hypertension: CODE(S): I10 - Essential (primary) hypertension PLAN: Plan Patient evaluated at the wound healing center. His cardiothoracic surgeon office transferred his wound care to the wound center. His insurance denied approval for the advanced skin substitute Epifix. He would really benefit from an advanced wound healing product. We have opportunity to apply a donated sample of an advanced skin substitute, Matrion. Wound care - Applied the donated product of Matrion #5 covered with wound veil, steri strips and topped Mepilex. He was instructed to keep the bandage clean and dry. He is not to remove the wound veil if he has to change the dressing. Wound culture obtained on 07/06/22 which was positive for MSSA, Coag negative staph, and Klebsiella oxytoca. He has a PCN allergy he is tolerating Bactrim and Doxycycline. Encouraged patient to eat a high protein, low sodium, low carbohydrate diet. Continue dialysis as scheduled on . Follow up one week.
[2022-10-05 08:44] VITALS: BP 139/74; PULSE 84; RESP 20; TEMP 36.3; BMI 43.9
--- NOTE | 2022-10-05 14:50 | PCM.WC.PN ---
History of Present Illness Date of Service: 10/05/22 Chief Complaint: Mid-sternal ulcer History of Wound: This 62-year-old male with multiple comorbidities presents to the wound healing center for an ulcer on his mid sternum after CABG 01/11. He states that he had an AL while receiving dialysis and was transferred to [facility] where he had bypass surgery. He was discharged to [facility] for rehab. He was then readmitted to [facility] for fluid on his lungs. He said that he is not sure when the incision dehiscence occurred. He states he is receiving an antibiotic on the days he has dialysis. He is unsure of the antibiotic but it is for 6 weeks. He was referred to us for wound VAC changes and wound care. Patient has an extensive history of CAD, CABG, T2D, ESRD - on dialysis T--Mon, on Warfarin, CHF, HTN, Afib. He is a very poor historian. His wound has been managed by his cardiothoracic surgeon's practice until now. He has had a wound VAC since February 2022. He comes here today for evaluation and treatment of his healing sternal ulcer. Wound culture obtained on 07/06/22 which was positive for MSSA, Coag negative staph, Klebsiella oxytoca. He was started on Bactrim and Doxycycline to treat the organisms. Patient denies fever, chills, nausea, vomiting or diarrhea. Progress of Wound: Midsternal ulcer is slightly smaller. His insurance denied approval for the advanced skin substitute Epifix. We have opportunity to apply a donated sample of an advanced skin substitute, Matrion #6 applied. Objective Data Objective Data Vital Signs: Vital Signs Temp Pulse Resp BP O2 Del Method 97.4 F L 84 20 H 139/74 H Room Air 10/05/22 08:44 10/05/22 08:44 10/05/22 08:44 10/05/22 08:44 09/28/22 08:42 Oxygen Delivery Method Room Air Weight: 289 lb Body Mass Index (BMI) 43.9 Charges/Coding Procedures Integumentary 150xxx-152xx: [id number] Skin sub graft trnk/arm/leg Debridement Note Debridement Note Wound debrided: midsternal chest ulcer cluster Wound Grade/Stage: Stage III Type of Debridement: Excisional debridement Anesthesia Used: 5% Lidocaine Gel Depth: Down to and including healthy tissue and in the subcutaneous layer Percentage of wound debrided: 100 Instrument Used: 3mm curette Tissue Removed: Devitalized tissue and slough Severity: Fat Layer Exposed Amount of bleeding with debridement: Mild Bleeding Controlled with: Pressure and Compression and gauze Patient tolerated procedure: Patient tolerated procedure well Post-Debridement Measurements and Additional Note: Post-Debridement Measurements/Treatment ARABELLA - Nurse 1 - General Ulcer Assessment Start: 09/21/22 08:45 Freq: Status: Active Protocol: ROSS Activity Type Activity Date Activity User E-sign Co-sign Detail Recorded Client Recorded Date Recorded By Document 09/21/22 08:45 DL [id number] 09/21/22 08:46 DL Document 09/28/22 08:42 BMF [id number] 09/28/22 08:45 BMF Document 10/05/22 08:44 DL [id number] 10/05/22 08:48 DL 09/21/22 09/28/22 10/05/22 08:45 08:42 08:44 - Today's Visit Information Type of service Follow-up Visit Follow-up Visit Follow-up Visit (Physician/BLOWER INSTALLER (Physician/BLOWER INSTALLER (Physician/BLOWER INSTALLER ) ) ) Arrival Mode Ambulatory Ambulatory Ambulatory Transfer Assistance None None None Patient Identification Verified (Name & Yes Yes Yes ) Patient Requires Transmission-Based No No No Precautions Finger Stick Blood Sugar(mg/dl) (if 204 indicated): Blood Sugar Stated by Patient Height and Weight Body Mass Index (BMI) 43.9 43.9 43.9 BMI Classification Obese Obese Obese Vital Signs Temperature (97.8 F-99.1 F) 97.6 F L 97.2 F L 97.4 F L Temperature Source Temporal Temporal Temporal Pulse Rate (60-100) 89 82 84 Pulse Location Monitor Monitor Monitor Respiratory Rate (12-18) 16 16 20 H Respiratory rate source Observation Observation Observation Oxygen Delivery Method Room Air Room Air Blood Pressure (90/60-120/80) 130/62 H 143/74 H 139/74 H Blood Pressure Mean (mm Hg) 84 97 95 Source Monitor Monitor Monitor Position Sitting Sitting Blood Pressure Location Left Arm Left Arm History Since Last Visit- (Skip if this is Patient's initial visit) Have you changed medications since your No No No last visit? Any new allergies or adverse reactions No No No Had a fall/change in ADL's that may No No No increase risk of falls Signs or symptoms of abuse and/or No No No neglect since last visit Have you been in the hospital since your No No No last visit? Has dressing in place as prescribed Yes Yes Yes Has compression in place as prescribed N/A N/A N/A Has offloadiing in place as prescribed N/A N/A N/A Experienced any changes in pain level or No No No management Left Footwear Diabetic Shoe Diabetic Shoe Right Footwear Diabetic Shoe Diabetic Shoe Pain Scale: 0-10 Numeric Is Patient Pain Free? Yes Yes Yes WC - Nurse 1 - General Ulcer Measurement Start: 09/21/22 08:45 Freq: Status: Active Protocol: Activity Type Activity Date Activity User E-sign Co-sign Detail Recorded Client Recorded Date Recorded By Document 09/21/22 08:45 DL [id number] 09/21/22 08:46 DL Document 09/28/22 08:42 BMF [id number] 09/28/22 08:45 BMF Document 10/05/22 08:44 DL [id number] 10/05/22 08:48 DL 09/21/22 09/28/22 10/05/22 08:45 08:42 08:44 Wound Center Nurse 1 #5- STERNUM cluster -Combined with other wound No No -Current Size (cm) - Length 1 0.9 0.8 -Current Size (cm) - Width 0.9 0.8 0.8 -Current Size (cm) - Depth 0.4 0.5 0.3 -Total Square Cm 0.9 0.72 0.64 -Date of Last Picture (Recall this 09/21/22 field) -Photo Taken Yes No -Epithelialization Small 1-33% Small 1-33% -Tunneling No No -Undermining/Tunneling No Yes -Undermining/Tunneling Starts (O'clock 11 11 ) -Undermining/Tunneling Ends (O'clock) 2 1 -Maximum Distance (cm) 0.4 0.2 -Circular Undermining No No -Exudate Amt Medium Small Small -Exudate Type Serosanguineous Serosanguineous Serosanguineous -Wound Margin Distinct, Distinct, Distinct, Outline Outline Outline Attached Attached Attached -Granulation Amt Small (1-33%) Large (67-100%) Large (67-100%) -Granulation Quality [place] -Slough/Fibrin Yes Yes -Necrosis Amt Medium (34-66%) Medium (34-66%) None Present (0 %) -Necrotic Tissue Type Adherent Slough Adherent Slough -Structure Exposed N/A -Texture (Fiona-wound Skin Appearance) Assessed, Assessed, Scarring Scarring Scarring -Moisture (Fiona-wound Skin Appearance) Assessed Assessed No Abnormality -Color (Fiona-wound Skin Appearance) Assessed Assessed No Abnormality -Temperature (Fiona-wound Skin No Abnormality No Abnormality No Abnormality Appearance) (Pt Warm) (Pt Warm) (Pt Warm) -Tenderness on Palpation (Fiona-wound No No Skin Appearance) -Ulcer Cleansing Soap and Water Rinsed/ Soap and Water Irrigated with Saline -Foul Odor after Cleansing No No No -Anesthetic Used 5% Lidocaine 5% Lidocaine 5% Lidocaine Gel Gel Gel WC - Nurse 2 - General Ulcer CM Notes Start: 09/21/22 08:45 Freq: Status: Active Protocol: Activity Type Activity Date Activity User E-sign Co-sign Detail Recorded Client Recorded Date Recorded By Document 09/21/22 10:21 PL [id number] 09/21/22 10:24 PL Document 09/28/22 09:02 [id number] 09/28/22 09:06 Document 10/05/22 09:15 [id number] 10/05/22 09:21 Edit Result 10/05/22 09:15 JF (1) [id number] 10/05/22 09:22 JF (1) #5- STERNUM cluster - Ulcer Cleansing => Matrion placental => product used. - Dermabond => 1 09/21/22 09/28/22 10/05/22 10:21 09:02 09:15 Wound Center Nurse 2 #5- STERNUM cluster -Time 09:15 09:05 09:15 -Correct Patient Yes Yes Yes -Correct Side, Site, Position Yes Yes Yes -Correct Procedure Yes Yes Yes -Procedure Performed Yes Yes Yes -Type of Procedure Debridement Debridement Debridement -Clinical Debridement Subcutaneous Subcutaneous Subcutaneous -Tissue Removed Subcutaneous Subcutaneous Subcutaneous -Post Debridement (cm) - Length 1.2 1.0 0.9 -Post Debridement (cm) - Width 1.2 1.0 1.3 -Post Debridement (cm) - Depth 0.4 0.4 0.3 -Total Square (Post) (cm) 1.44 1.00 1.17 -Area of Debridement (cm) - Length 1.2 1.0 0.9 -Area of Debridement (cm) - Width 1.2 1.0 1.3 -Total Square (Area) (cm) 1.44 1.00 1.17 -Tunneling No No No -Undermining/Tunneling No No No -Circular Undermining No No No -Wound/Ulcer Outcome Not Healed Not Healed Not Healed -Ulcer Cleansing Rinsed/ Rinsed/ Matrion Irrigated with Irrigated with placental Saline Saline product used. -Foul Odor after Cleansing No No No -Bioengineered Tissue No No No -Expiration Date 09/07/23 09/07/23 08/20/23 -Product Lot Number [id number] -Percent Used 100 100 100 -Lot number of Saline Used [id number] -Bleeding Controlled with Pressure Pressure Pressure -Treatment Response Procedure Procedure Procedure Tolerated Well Tolerated Well Tolerated Well -Offloading No No -Debridement - Subq, 1st 20sq cm No No No -Apply Skin Sub - 1st 25 sq cm - Legs 1 -Apply Skin Sub - 1st 25 sq cm - Feet 1 1 -Dermabond 1 Pain Scale: 0-10 Numeric Is Patient Pain Free? Yes Yes Yes WC - Nurse 3 - General Ulcer D/C NN Start: 09/21/22 08:45 Freq: Status: Active Protocol: Activity Type Activity Date Activity User E-sign Co-sign Detail Recorded Client Recorded Date Recorded By Document 09/28/22 09:07 REID [id number] 09/28/22 09:07 Document 10/05/22 09:22 REID [id number] 10/05/22 09:23 REID 09/28/22 10/05/22 09:07 09:22 Wound Care Center Nurse 3 #5- STERNUM cluster -Ulcer Cleansing Rinsed/ Irrigated with Saline -Foul Odor after Cleansing No -Primary Dressing Applied Mepilex Border Mepilex Border -Primary Dressing Covered/Secured with Dry Gauze Dry Gauze -Mepilex Border 1 1 Pain Scale: 0-10 Numeric Is Patient Pain Free? Yes Yes WC - Visit Discharge Discharge Condition Stable Stable Ambulatory Status Ambulatory Ambulatory Transportation Private Auto Private Auto Medication Reconcilliation completed & Yes Yes provided to patient/care provider Clinical Summary of Care Provided Yes Yes Notes: Matrion skin sub sample used . 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: CODE(S): L98.492 - Non-pressure chronic ulcer of skin of other sites with fat layer exposed (2) Type 2 diabetes mellitus: CODE(S): E11.9 - Type 2 diabetes mellitus without complications QUALIFIERS: Diabetes mellitus complication status: with kidney complications (3) History of coronary artery bypass graft: CODE(S): Z95.1 - Presence of aortocoronary bypass graft (4) ESRD (end stage renal disease) on dialysis: CODE(S): N18.6 - End stage renal disease; Z99.2 - Dependence on renal dialysis (5) Hypertension: CODE(S): I10 - Essential (primary) hypertension PLAN: Plan Patient evaluated at the wound healing center. His cardiothoracic surgeon office transferred his wound care to the wound center. His insurance denied approval for the advanced skin substitute Epifix. He would really benefit from an advanced wound healing product. We have opportunity to apply a donated sample of an advanced skin substitute, Matrion. Wound care - Applied the donated product of Matrion #6. 100% of product used, covered with wound veil, steri strips and topped Mepilex. He was instructed to keep the bandage clean and dry. He is not to remove the wound veil if he has to change the dressing. Wound culture obtained on 07/06/22 which was positive for MSSA, Coag negative staph, and Klebsiella oxytoca. He has a PCN allergy he is tolerating Bactrim and Doxycycline. Encouraged patient to eat a high protein, low sodium, low carbohydrate diet. Continue dialysis as scheduled on . Follow up one week.
[2022-10-12 08:37] VITALS: BP 125/57; PULSE 83; RESP 18; TEMP 37; BMI 43.9
--- NOTE | 2022-10-12 10:09 | PCM.WC.PN ---
History of Present Illness Date of Service: 10/12/22 Chief Complaint: Mid-sternal ulcer History of Wound: This 62-year-old male with multiple comorbidities presents to the wound healing center for an ulcer on his mid sternum after CABG 01/11. He states that he had an ND while receiving dialysis and was transferred to [facility] where he had bypass surgery. He was discharged to [facility] for rehab. He was then readmitted to [facility] for fluid on his lungs. He said that he is not sure when the incision dehiscence occurred. He states he is receiving an antibiotic on the days he has dialysis. He is unsure of the antibiotic but it is for 6 weeks. He was referred to us for wound VAC changes and wound care. Patient has an extensive history of CAD, CABG, T2D, ESRD - on dialysis T--Mon, on Warfarin, CHF, HTN, Afib. He is a very poor historian. His wound has been managed by his cardiothoracic surgeon's practice until now. He has had a wound VAC since February 2022. He comes here today for evaluation and treatment of his healing sternal ulcer. Wound culture obtained on 07/06/22 which was positive for MSSA, Coag negative staph, Klebsiella oxytoca. He was started on Bactrim and Doxycycline to treat the organisms. Patient denies fever, chills, nausea, vomiting or diarrhea. Progress of Wound: Midsternal ulcer is slightly smaller. His insurance denied approval for the advanced skin substitute Epifix. We have opportunity to apply a donated sample of an advanced skin substitute. He had Matrion #6 applications. Objective Data Objective Data Vital Signs: Vital Signs Temp Pulse Resp BP O2 Del Method 98.6 F 83 18 125/57 H Room Air 10/12/22 08:37 10/12/22 08:37 10/12/22 08:37 10/12/22 08:37 09/28/22 08:42 Oxygen Delivery Method Room Air Weight: 289 lb Body Mass Index (BMI) 43.9 Charges/Coding Procedures Integumentary 111xxx-113xx: 52751 Ingrid subq tissue 20 sq cm/< Debridement Note Debridement Note Wound debrided: midsternal chest ulcer cluster Wound Grade/Stage: Stage III Type of Debridement: Excisional debridement Anesthesia Used: 5% Lidocaine Gel Depth: Down to and including healthy tissue and in the subcutaneous layer Percentage of wound debrided: 100 Instrument Used: 5mm curette Tissue Removed: Devitalized tissue and slough Severity: Fat Layer Exposed Amount of bleeding with debridement: Mild Bleeding Controlled with: Pressure and Compression and gauze Patient tolerated procedure: Patient tolerated procedure well Post-Debridement Measurements and Additional Note: Post-Debridement Measurements/Treatment ARABELLA - Nurse 1 - General Ulcer Assessment Start: 09/21/22 08:45 Freq: Status: Active Protocol: ROSS Activity Type Activity Date Activity User E-sign Co-sign Detail Recorded Client Recorded Date Recorded By Document 09/21/22 08:45 DL [id number] 09/21/22 08:46 DL Document 09/28/22 08:42 BMF [id number] 09/28/22 08:45 BMF Document 10/05/22 08:44 DL [id number] 10/05/22 08:48 DL Document 10/12/22 08:37 PL [id number] 10/12/22 08:39 PL 09/21/22 09/28/22 10/05/22 08:45 08:42 08:44 - Today's Visit Information Type of service Follow-up Visit Follow-up Visit Follow-up Visit (Physician/INTERNATIONAL PROJECT ENGINEER (Physician/INTERNATIONAL PROJECT ENGINEER (Physician/INTERNATIONAL PROJECT ENGINEER ) ) ) Arrival Mode Ambulatory Ambulatory Ambulatory Transfer Assistance None None None Patient Identification Verified (Name & Yes Yes Yes ) Patient Requires Transmission-Based No No No Precautions Finger Stick Blood Sugar(mg/dl) (if 204 indicated): Blood Sugar Stated by Patient Height and Weight Body Mass Index (BMI) 43.9 43.9 43.9 BMI Classification Obese Obese Obese Vital Signs Temperature (97.8 F-99.1 F) 97.6 F L 97.2 F L 97.4 F L Temperature Source Temporal Temporal Temporal Pulse Rate (60-100) 89 82 84 Pulse Location Monitor Monitor Monitor Respiratory Rate (12-18) 16 16 20 H Respiratory rate source Observation Observation Observation Oxygen Delivery Method Room Air Room Air Blood Pressure (90/60-120/80) 130/62 H 143/74 H 139/74 H Blood Pressure Mean (mm Hg) 84 97 95 Source Monitor Monitor Monitor Position Sitting Sitting Blood Pressure Location Left Arm Left Arm History Since Last Visit- (Skip if this is Patient's initial visit) Have you changed medications since your No No No last visit? Any new allergies or adverse reactions No No No Had a fall/change in ADL's that may No No No increase risk of falls Signs or symptoms of abuse and/or No No No neglect since last visit Have you been in the hospital since your No No No last visit? Has dressing in place as prescribed Yes Yes Yes Has compression in place as prescribed N/A N/A N/A Has offloadiing in place as prescribed N/A N/A N/A Experienced any changes in pain level or No No No management Left Footwear Diabetic Shoe Diabetic Shoe Right Footwear Diabetic Shoe Diabetic Shoe Pain Scale: 0-10 Numeric Is Patient Pain Free? Yes Yes Yes 10/12/22 08:37 WC - Today's Visit Information Type of service Follow-up Visit (Physician/INTERNATIONAL PROJECT ENGINEER ) Arrival Mode Ambulatory Transfer Assistance None Patient Identification Verified (Name & Yes ) Patient Requires Transmission-Based No Precautions Finger Stick Blood Sugar(mg/dl) (if indicated): Blood Sugar Height and Weight Body Mass Index (BMI) 43.9 BMI Classification Obese Vital Signs Temperature (97.8 F-99.1 F) 98.6 F Temperature Source Temporal Pulse Rate (60-100) 83 Pulse Location Respiratory Rate (12-18) 18 Respiratory rate source Oxygen Delivery Method Blood Pressure (90/60-120/80) 125/57 H Blood Pressure Mean (mm Hg) 79 Source Position Blood Pressure Location History Since Last Visit- (Skip if this is Patient's initial visit) Have you changed medications since your No last visit? Any new allergies or adverse reactions No Had a fall/change in ADL's that may No increase risk of falls Signs or symptoms of abuse and/or No neglect since last visit Have you been in the hospital since your No last visit? Has dressing in place as prescribed Yes Has compression in place as prescribed N/A Has offloadiing in place as prescribed N/A Experienced any changes in pain level or management Left Footwear Right Footwear Pain Scale: 0-10 Numeric Is Patient Pain Free? Yes - Nurse 1 - General Ulcer Measurement Start: 09/21/22 08:45 Freq: Status: Active Protocol: Activity Type Activity Date Activity User E-sign Co-sign Detail Recorded Client Recorded Date Recorded By Document 09/21/22 08:45 DL [id number] 09/21/22 08:46 DL Document 09/28/22 08:42 BM [id number] 09/28/22 08:45 BMF Document 10/05/22 08:44 DL [id number] 10/05/22 08:48 DL 09/21/22 09/28/22 10/05/22 08:45 08:42 08:44 Wound Center Nurse 1 #5- STERNUM cluster -Combined with other wound No No -Current Size (cm) - Length 1 0.9 0.8 -Current Size (cm) - Width 0.9 0.8 0.8 -Current Size (cm) - Depth 0.4 0.5 0.3 -Total Square Cm 0.9 0.72 0.64 -Date of Last Picture (Recall this 09/21/22 field) -Photo Taken Yes No -Epithelialization Small 1-33% Small 1-33% -Tunneling No No -Undermining/Tunneling No Yes -Undermining/Tunneling Starts (O'clock 11 11 ) -Undermining/Tunneling Ends (O'clock) 2 1 -Maximum Distance (cm) 0.4 0.2 -Circular Undermining No No -Exudate Amt Medium Small Small -Exudate Type Serosanguineous Serosanguineous Serosanguineous -Wound Margin Distinct, Distinct, Distinct, Outline Outline Outline Attached Attached Attached -Granulation Amt Small (1-33%) Large (67-100%) Large (67-100%) -Granulation Quality [place] -Slough/Fibrin Yes Yes -Necrosis Amt Medium (34-66%) Medium (34-66%) None Present (0 %) -Necrotic Tissue Type Adherent Slough Adherent Slough -Structure Exposed N/A -Texture (Fiona-wound Skin Appearance) Assessed, Assessed, Scarring Scarring Scarring -Moisture (Fiona-wound Skin Appearance) Assessed Assessed No Abnormality -Color (Fiona-wound Skin Appearance) Assessed Assessed No Abnormality -Temperature (Fiona-wound Skin No Abnormality No Abnormality No Abnormality Appearance) (Pt Warm) (Pt Warm) (Pt Warm) -Tenderness on Palpation (Fiona-wound No No Skin Appearance) -Ulcer Cleansing Soap and Water Rinsed/ Soap and Water Irrigated with Saline -Foul Odor after Cleansing No No No -Anesthetic Used 5% Lidocaine 5% Lidocaine 5% Lidocaine Gel Gel Gel WC - Nurse 2 - General Ulcer CM Notes Start: 09/21/22 08:45 Freq: Status: Active Protocol: Activity Type Activity Date Activity User E-sign Co-sign Detail Recorded Client Recorded Date Recorded By Document 09/21/22 10:21 PL [id number] 09/21/22 10:24 PL Document 09/28/22 09:02 [id number] 09/28/22 09:06 JF Document 10/05/22 09:15 [id number] 10/05/22 09:21 JF Edit Result 10/05/22 09:15 JF (1) [id number] 10/05/22 09:22 JF Document 10/12/22 09:09 [id number] 10/12/22 09:10 JF (1) #5- STERNUM cluster - Ulcer Cleansing => Matrion placental => product used. - Dermabond => 1 09/21/22 09/28/22 10/05/22 10:21 09:02 09:15 Wound Center Nurse 2 #5- STERNUM cluster -Time 09:15 09:05 09:15 -Correct Patient Yes Yes Yes -Correct Side, Site, Position Yes Yes Yes -Correct Procedure Yes Yes Yes -Procedure Performed Yes Yes Yes -Type of Procedure Debridement Debridement Debridement -Clinical Debridement Subcutaneous Subcutaneous Subcutaneous -Tissue Removed Subcutaneous Subcutaneous Subcutaneous -Post Debridement (cm) - Length 1.2 1.0 0.9 -Post Debridement (cm) - Width 1.2 1.0 1.3 -Post Debridement (cm) - Depth 0.4 0.4 0.3 -Total Square (Post) (cm) 1.44 1.00 1.17 -Area of Debridement (cm) - Length 1.2 1.0 0.9 -Area of Debridement (cm) - Width 1.2 1.0 1.3 -Total Square (Area) (cm) 1.44 1.00 1.17 -Tunneling No No No -Undermining/Tunneling No No No -Circular Undermining No No No -Wound/Ulcer Outcome Not Healed Not Healed Not Healed -Ulcer Cleansing Rinsed/ Rinsed/ Matrion Irrigated with Irrigated with placental Saline Saline product used. -Foul Odor after Cleansing No No No -Bioengineered Tissue No No No -Expiration Date 09/07/23 09/07/23 08/20/23 -Product Lot Number [id number] -Percent Used 100 100 100 -Lot number of Saline Used [id number] -Bleeding Controlled with Pressure Pressure Pressure -Treatment Response Procedure Procedure Procedure Tolerated Well Tolerated Well Tolerated Well -Offloading No No -Debridement - Subq, 1st 20sq cm No No No -Apply Skin Sub - 1st 25 sq cm - Legs 1 -Apply Skin Sub - 1st 25 sq cm - Feet 1 1 -Dermabond 1 Pain Scale: 0-10 Numeric Is Patient Pain Free? Yes Yes Yes 10/12/22 09:09 Wound Center Nurse 2 #5- STERNUM cluster -Time 09:09 -Correct Patient Yes -Correct Side, Site, Position Yes -Correct Procedure Yes -Procedure Performed Yes -Type of Procedure Debridement -Clinical Debridement Subcutaneous -Tissue Removed Subcutaneous -Post Debridement (cm) - Length 1.2 -Post Debridement (cm) - Width 1.0 -Post Debridement (cm) - Depth 0.2 -Total Square (Post) (cm) 1.20 -Area of Debridement (cm) - Length 1.2 -Area of Debridement (cm) - Width 1.0 -Total Square (Area) (cm) 1.20 -Tunneling No -Undermining/Tunneling No -Circular Undermining No -Wound/Ulcer Outcome Not Healed -Ulcer Cleansing Rinsed/ Irrigated with Saline -Foul Odor after Cleansing No -Bioengineered Tissue No -Expiration Date -Product Lot Number -Percent Used -Lot number of Saline Used -Bleeding Controlled with Pressure -Treatment Response Procedure Tolerated Well -Offloading No -Debridement - Subq, 1st 20sq cm Yes -Apply Skin Sub - 1st 25 sq cm - Legs -Apply Skin Sub - 1st 25 sq cm - Feet -Dermabond Pain Scale: 0-10 Numeric Is Patient Pain Free? Yes - Nurse 3 - General Ulcer D/C NN Start: 09/21/22 08:45 Freq: Status: Active Protocol: Activity Type Activity Date Activity User E-sign Co-sign Detail Recorded Client Recorded Date Recorded By Document 09/28/22 09:07 REID [id number] 09/28/22 09:07 Document 10/05/22 09:22 [id number] 10/05/22 09:23 Document 10/12/22 09:10 [id number] 10/12/22 09:11 09/28/22 10/05/22 10/12/22 09:07 09:22 09:10 Wound Care Center Nurse 3 #5- STERNUM cluster -Ulcer Cleansing Rinsed/ Rinsed/ Irrigated with Irrigated with Saline Saline -Foul Odor after Cleansing No No -Primary Dressing Applied Mepilex Border Mepilex Border Aquacel AG 2x2, Mepilex Border -Primary Dressing Covered/Secured with Dry Gauze Dry Gauze -Aquacel AG 2x2 1 -Mepilex Border 1 1 1 Pain Scale: 0-10 Numeric Is Patient Pain Free? Yes Yes Yes WC - Visit Discharge Discharge Condition Stable Stable Stable Ambulatory Status Ambulatory Ambulatory Ambulatory Transportation Private Auto Private Auto Private Auto Medication Reconcilliation completed & Yes Yes Yes provided to patient/care provider Clinical Summary of Care Provided Yes Yes Yes Notes: Matrion skin sub sample used . 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: CODE(S): L98.492 - Non-pressure chronic ulcer of skin of other sites with fat layer exposed (2) Type 2 diabetes mellitus: CODE(S): E11.9 - Type 2 diabetes mellitus without complications QUALIFIERS: Diabetes mellitus complication status: with kidney complications (3) History of coronary artery bypass graft: CODE(S): Z95.1 - Presence of aortocoronary bypass graft (4) ESRD (end stage renal disease) on dialysis: CODE(S): N18.6 - End stage renal disease; Z99.2 - Dependence on renal dialysis (5) Hypertension: CODE(S): I10 - Essential (primary) hypertension PLAN: Plan Patient evaluated at the wound healing center. His cardiothoracic surgeon office transferred his wound care to the wound center. His insurance denied approval for the advanced skin substitute Epifix. We had the opportunity to apply 6 application of donated sample of an advanced skin substitute, Matrion. Wound care - Aquacel-Ag covered with [employer] daily after washing with soap and water. Wound culture obtained on 07/06/22 which was positive for MSSA, Coag negative staph, and Klebsiella oxytoca. He has a PCN allergy he is tolerating Bactrim and Doxycycline. Encouraged patient to eat a high protein, low sodium, low carbohydrate diet. Continue dialysis as scheduled on . Follow up one week.
[2022-10-19 08:44] VITALS: BP 125/70; PULSE 85; RESP 16; TEMP 36.7; BMI 43.9
--- NOTE | 2022-10-19 10:29 | PN.PCM_ITS ---
History of Present Illness Date of Service: 10/19/22 Chief Complaint: Mid-sternal ulcer History of Wound: This 62-year-old male with multiple comorbidities presents to the wound healing center for an ulcer on his mid sternum after CABG 01/11. He states that he had an MT while receiving dialysis and was transferred to [facility] where he had bypass surgery. He was discharged to [facility] for rehab. He was then readmitted to [facility] for fluid on his lungs. He said that he is not sure when the incision dehiscence occurred. He states he is receiving an antibiotic on the days he has dialysis. He is unsure of the antibiotic but it is for 6 weeks. He was referred to us for wound VAC changes and wound care. Patient has an extensive history of CAD, CABG, T2D, ESRD - on dialysis T--Mon, on Warfarin, CHF, HTN, Afib. He is a very poor historian. His wound has been managed by his cardiothoracic surgeon's practice until now. He has had a wound VAC since February 2022. He comes here today for evaluation and treatment of his healing sternal ulcer. Wound culture obtained on 07/06/22 which was positive for MSSA, Coag negative staph, Klebsiella oxytoca. He was started on Bactrim and Doxycycline to treat the organisms. Patient denies fever, chills, nausea, vomiting or diarrhea. Progress of Wound: Midsternal ulcer is slightly smaller. His insurance denied approval for the advanced skin substitute Epifix. We had the opportunity to apply a donated sample of an advanced skin substitute. He had Matrion #6 applications. Patient states that he will be moving to [place] to be closer to his nephew. He is in the process of arranging this for his dialysis and follow up appointments. Objective Data Objective Data Vital Signs: Vital Signs Temp Pulse Resp BP O2 Del Method 98.0 F 85 16 125/70 H Room Air 10/19/22 08:44 10/19/22 08:44 10/19/22 08:44 10/19/22 08:44 09/28/22 08:42 Oxygen Delivery Method Room Air Weight: 289 lb Body Mass Index (BMI) 43.9 Charges/Coding Procedures Integumentary 111xxx-113xx: 11839 Ingrid subq tissue 20 sq cm/< Debridement Note Debridement Note Wound debrided: midsternal chest ulcer cluster Wound Grade/Stage: Stage III Type of Debridement: Excisional debridement Anesthesia Used: 5% Lidocaine Gel Depth: Down to and including healthy tissue and in the subcutaneous layer Percentage of wound debrided: 100 Instrument Used: 3mm curette Tissue Removed: Devitalized tissue and slough Severity: Fat Layer Exposed Amount of bleeding with debridement: Mild Bleeding Controlled with: Pressure and Compression and gauze Patient tolerated procedure: Patient tolerated procedure well Post-Debridement Measurements and Additional Note: Post-Debridement Measurements/Treatment - Nurse 1 - General Ulcer Assessment Start: 09/21/22 08:45 Freq: Status: Active Protocol: RSOS Activity Type Activity Date Activity User E-sign Co-sign Detail Recorded Client Recorded Date Recorded By Document 09/21/22 08:45 DL [id number] 09/21/22 08:46 DL Document 09/28/22 08:42 BMF [id number] 09/28/22 08:45 BMF Document 10/05/22 08:44 DL [id number] 10/05/22 08:48 DL Document 10/12/22 08:37 PL [id number] 10/12/22 08:39 PL Document 10/19/22 08:44 JF [id number] 10/19/22 08:45 JF 09/21/22 09/28/22 10/05/22 08:45 08:42 08:44 - Today's Visit Information Type of service Follow-up Visit Follow-up Visit Follow-up Visit (Physician/SKIP MINER BLASTING (Physician/SKIP MINER BLASTING (Physician/SKIP MINER BLASTING ) ) ) Arrival Mode Ambulatory Ambulatory Ambulatory Transfer Assistance None None None Patient Identification Verified (Name & Yes Yes Yes ) Patient Requires Transmission-Based No No No Precautions Finger Stick Blood Sugar(mg/dl) (if 204 indicated): Blood Sugar Stated by Patient Height and Weight Body Mass Index (BMI) 43.9 43.9 43.9 BMI Classification Obese Obese Obese Vital Signs Temperature (97.8 F-99.1 F) 97.6 F L 97.2 F L 97.4 F L Temperature Source Temporal Temporal Temporal Pulse Rate (60-100) 89 82 84 Pulse Location Monitor Monitor Monitor Respiratory Rate (12-18) 16 16 20 H Respiratory rate source Observation Observation Observation Oxygen Delivery Method Room Air Room Air Blood Pressure (90/60-120/80) 130/62 H 143/74 H 139/74 H Blood Pressure Mean (mm Hg) 84 97 95 Source Monitor Monitor Monitor Position Sitting Sitting Blood Pressure Location Left Arm Left Arm History Since Last Visit- (Skip if this is Patient's initial visit) Have you changed medications since your No No No last visit? Any new allergies or adverse reactions No No No Had a fall/change in ADL's that may No No No increase risk of falls Signs or symptoms of abuse and/or No No No neglect since last visit Have you been in the hospital since your No No No last visit? Has dressing in place as prescribed Yes Yes Yes Has compression in place as prescribed N/A N/A N/A Has offloadiing in place as prescribed N/A N/A N/A Experienced any changes in pain level or No No No management Left Footwear Diabetic Shoe Diabetic Shoe Right Footwear Diabetic Shoe Diabetic Shoe Pain Scale: 0-10 Numeric Is Patient Pain Free? Yes Yes Yes 10/12/22 10/19/22 08:37 08:44 WC - Today's Visit Information Type of service Follow-up Visit Follow-up Visit (Physician/SKIP MINER BLASTING (Physician/SKIP MINER BLASTING ) ) Arrival Mode Ambulatory Ambulatory Transfer Assistance None Patient Identification Verified (Name & Yes Yes ) Patient Requires Transmission-Based No No Precautions Finger Stick Blood Sugar(mg/dl) (if 147 indicated): Blood Sugar Stated by Patient Height and Weight Body Mass Index (BMI) 43.9 43.9 BMI Classification Obese Obese Vital Signs Temperature (97.8 F-99.1 F) 98.6 F 98.0 F Temperature Source Temporal Temporal Pulse Rate (60-100) 83 85 Pulse Location Monitor Respiratory Rate (12-18) 18 16 Respiratory rate source Observation Oxygen Delivery Method Blood Pressure (90/60-120/80) 125/57 H 125/70 H Blood Pressure Mean (mm Hg) 79 88 Source Monitor Position Semi-Fowlers Blood Pressure Location Left Arm History Since Last Visit- (Skip if this is Patient's initial visit) Have you changed medications since your No No last visit? Any new allergies or adverse reactions No No Had a fall/change in ADL's that may No No increase risk of falls Signs or symptoms of abuse and/or No No neglect since last visit Have you been in the hospital since your No No last visit? Has dressing in place as prescribed Yes Yes Has compression in place as prescribed N/A N/A Has offloadiing in place as prescribed N/A N/A Experienced any changes in pain level or No management Left Footwear Regular Shoe Right Footwear Regular Shoe Pain Scale: 0-10 Numeric Is Patient Pain Free? Yes Yes WC - Nurse 1 - General Ulcer Measurement Start: 09/21/22 08:45 Freq: Status: Active Protocol: Activity Type Activity Date Activity User E-sign Co-sign Detail Recorded Client Recorded Date Recorded By Document 09/21/22 08:45 DL [id number] 09/21/22 08:46 DL Document 09/28/22 08:42 BMF [id number] 09/28/22 08:45 BMF Document 10/05/22 08:44 DL [id number] 10/05/22 08:48 DL Document 10/19/22 08:44 JF [id number] 10/19/22 08:45 JF 09/21/22 09/28/22 10/05/22 08:45 08:42 08:44 Wound Center Nurse 1 #5- STERNUM cluster -Combined with other wound No No -Current Size (cm) - Length 1 0.9 0.8 -Current Size (cm) - Width 0.9 0.8 0.8 -Current Size (cm) - Depth 0.4 0.5 0.3 -Total Square Cm 0.9 0.72 0.64 -Date of Last Picture (Recall this 09/21/22 field) -Photo Taken Yes No -Epithelialization Small 1-33% Small 1-33% -Tunneling No No -Undermining/Tunneling No Yes -Undermining/Tunneling Starts (O'clock 11 11 ) -Undermining/Tunneling Ends (O'clock) 2 1 -Maximum Distance (cm) 0.4 0.2 -Circular Undermining No No -Exudate Amt Medium Small Small -Exudate Type Serosanguineous Serosanguineous Serosanguineous -Wound Margin Distinct, Distinct, Distinct, Outline Outline Outline Attached Attached Attached -Granulation Amt Small (1-33%) Large (67-100%) Large (67-100%) -Granulation Quality [place] -Slough/Fibrin Yes Yes -Necrosis Amt Medium (34-66%) Medium (34-66%) None Present (0 %) -Necrotic Tissue Type Adherent Slough Adherent Slough -Structure Exposed N/A -Texture (Fiona-wound Skin Appearance) Assessed, Assessed, Scarring Scarring Scarring -Moisture (Fiona-wound Skin Appearance) Assessed Assessed No Abnormality -Color (Fiona-wound Skin Appearance) Assessed Assessed No Abnormality -Temperature (Fiona-wound Skin No Abnormality No Abnormality No Abnormality Appearance) (Pt Warm) (Pt Warm) (Pt Warm) -Tenderness on Palpation (Fiona-wound No No Skin Appearance) -Ulcer Cleansing Soap and Water Rinsed/ Soap and Water Irrigated with Saline -Foul Odor after Cleansing No No No -Anesthetic Used 5% Lidocaine 5% Lidocaine 5% Lidocaine Gel Gel Gel Lower Limb Edema Present 10/19/22 08:44 Wound Center Nurse 1 #5- STERNUM cluster -Combined with other wound No -Current Size (cm) - Length 0.9 -Current Size (cm) - Width 0.7 -Current Size (cm) - Depth 0.3 -Total Square Cm 0.63 -Date of Last Picture (Recall this field) -Photo Taken No -Epithelialization Small 1-33% -Tunneling No -Undermining/Tunneling No -Undermining/Tunneling Starts (O'clock ) -Undermining/Tunneling Ends (O'clock) -Maximum Distance (cm) -Circular Undermining No -Exudate Amt Small -Exudate Type Serosanguineous -Wound Margin Flat & Intact -Granulation Amt Medium (34-66%) -Granulation Quality [place] -Slough/Fibrin Yes -Necrosis Amt Small (1-33%) -Necrotic Tissue Type Adherent Slough -Structure Exposed N/A -Texture (Fiona-wound Skin Appearance) Assessed -Moisture (Fiona-wound Skin Appearance) Assessed,Dry/ Scaly -Color (Fiona-wound Skin Appearance) Assessed -Temperature (Fiona-wound Skin No Abnormality Appearance) (Pt Warm) -Tenderness on Palpation (Fiona-wound No Skin Appearance) -Ulcer Cleansing Rinsed/ Irrigated with Saline -Foul Odor after Cleansing No -Anesthetic Used 5% Lidocaine Gel Lower Limb Edema Present NA WC - Nurse 2 - General Ulcer CM Notes Start: 09/21/22 08:45 Freq: Status: Active Protocol: Activity Type Activity Date Activity User E-sign Co-sign Detail Recorded Client Recorded Date Recorded By Document 09/21/22 10:21 PL [id number] 09/21/22 10:24 PL Document 09/28/22 09:02 [id number] 09/28/22 09:06 JF Document 10/05/22 09:15 [id number] 10/05/22 09:21 JF Edit Result 10/05/22 09:15 JF (1) [id number] 10/05/22 09:22 JF Document 10/12/22 09:09 [id number] 10/12/22 09:10 JF Document 10/19/22 09:10 [id number] 10/19/22 09:12 JF (1) #5- STERNUM cluster - Ulcer Cleansing => Matrion placental => product used. - Dermabond => 1 09/21/22 09/28/22 10/05/22 10:21 09:02 09:15 Wound Center Nurse 2 #5- STERNUM cluster -Time 09:15 09:05 09:15 -Correct Patient Yes Yes Yes -Correct Side, Site, Position Yes Yes Yes -Correct Procedure Yes Yes Yes -Procedure Performed Yes Yes Yes -Type of Procedure Debridement Debridement Debridement -Clinical Debridement Subcutaneous Subcutaneous Subcutaneous -Tissue Removed Subcutaneous Subcutaneous Subcutaneous -Post Debridement (cm) - Length 1.2 1.0 0.9 -Post Debridement (cm) - Width 1.2 1.0 1.3 -Post Debridement (cm) - Depth 0.4 0.4 0.3 -Total Square (Post) (cm) 1.44 1.00 1.17 -Area of Debridement (cm) - Length 1.2 1.0 0.9 -Area of Debridement (cm) - Width 1.2 1.0 1.3 -Total Square (Area) (cm) 1.44 1.00 1.17 -Tunneling No No No -Undermining/Tunneling No No No -Circular Undermining No No No -Wound/Ulcer Outcome Not Healed Not Healed Not Healed -Ulcer Cleansing Rinsed/ Rinsed/ Matrion Irrigated with Irrigated with placental Saline Saline product used. -Foul Odor after Cleansing No No No -Bioengineered Tissue No No No -Expiration Date 07/09/07/23 08/20/23 -Product Lot Number [id number] -Percent Used 100 100 100 -Lot number of Saline Used [id number] -Bleeding Controlled with Pressure Pressure Pressure -Treatment Response Procedure Procedure Procedure Tolerated Well Tolerated Well Tolerated Well -Offloading No No -Debridement - Subq, 1st 20sq cm No No No -Apply Skin Sub - 1st 25 sq cm - Legs 1 -Apply Skin Sub - 1st 25 sq cm - Feet 1 1 -Dermabond 1 Pain Scale: 0-10 Numeric Is Patient Pain Free? Yes Yes Yes 10/12/22 10/19/22 09:09 09:10 Wound Center Nurse 2 #5- STERNUM cluster -Time 09:09 09:10 -Correct Patient Yes Yes -Correct Side, Site, Position Yes Yes -Correct Procedure Yes Yes -Procedure Performed Yes Yes -Type of Procedure Debridement Debridement -Clinical Debridement Subcutaneous Subcutaneous -Tissue Removed Subcutaneous Subcutaneous -Post Debridement (cm) - Length 1.2 0.8 -Post Debridement (cm) - Width 1.0 0.8 -Post Debridement (cm) - Depth 0.2 0.2 -Total Square (Post) (cm) 1.20 0.64 -Area of Debridement (cm) - Length 1.2 0.8 -Area of Debridement (cm) - Width 1.0 0.8 -Total Square (Area) (cm) 1.20 0.64 -Tunneling No No -Undermining/Tunneling No No -Circular Undermining No No -Wound/Ulcer Outcome Not Healed Not Healed -Ulcer Cleansing Rinsed/ Rinsed/ Irrigated with Irrigated with Saline Saline -Foul Odor after Cleansing No No -Bioengineered Tissue No No -Expiration Date -Product Lot Number -Percent Used -Lot number of Saline Used -Bleeding Controlled with Pressure Pressure -Treatment Response Procedure Procedure Tolerated Well Tolerated Well -Offloading No No -Debridement - Subq, 1st 20sq cm Yes Yes -Apply Skin Sub - 1st 25 sq cm - Legs -Apply Skin Sub - 1st 25 sq cm - Feet -Dermabond Pain Scale: 0-10 Numeric Is Patient Pain Free? Yes Yes WC - Nurse 3 - General Ulcer D/C NN Start: 09/21/22 08:45 Freq: Status: Active Protocol: Activity Type Activity Date Activity User E-sign Co-sign Detail Recorded Client Recorded Date Recorded By Document 09/28/22 09:07 [id number] 09/28/22 09:07 Document 10/05/22 09:22 [id number] 10/05/22 09:23 Document 10/12/22 09:10 [id number] 10/12/22 09:11 JF Document 10/19/22 09:12 [id number] 10/19/22 09:12 Edit Result 10/19/22 09:12 JF (1) [id number] 10/19/22 09:16 JF (1) #5- STERNUM cluster - Primary Dressing Applied Mepilex Border, => Fibracol Plus 4x4, Promogran Antonieta => Mepilex Border Matter => - Fibracol Plus 4x4 => 1 - Promogran Antonieta Matter 1 => 09/28/22 10/05/22 10/12/22 09:07 09:22 09:10 Wound Care Center Nurse 3 #5- STERNUM cluster -Ulcer Cleansing Rinsed/ Rinsed/ Irrigated with Irrigated with Saline Saline -Foul Odor after Cleansing No No -Primary Dressing Applied Mepilex Border Mepilex Border Aquacel AG 2x2, Mepilex Border -Primary Dressing Covered/Secured with Dry Gauze Dry Gauze -Aquacel AG 2x2 1 -Fibracol Plus 4x4 -Mepilex Border 1 1 1 Pain Scale: 0-10 Numeric Is Patient Pain Free? Yes Yes Yes WC - Visit Discharge Discharge Condition Stable Stable Stable Ambulatory Status Ambulatory Ambulatory Ambulatory Transportation Private Auto Private Auto Private Auto Medication Reconcilliation completed & Yes Yes Yes provided to patient/care provider Clinical Summary of Care Provided Yes Yes Yes Notes: Matrion skin sub sample used . 10/19/22 09:12 Wound Care Center Nurse 3 #5- STERNUM cluster -Ulcer Cleansing Rinsed/ Irrigated with Saline -Foul Odor after Cleansing No -Primary Dressing Applied Fibracol Plus 4x4,Mepilex Border -Primary Dressing Covered/Secured with -Aquacel AG 2x2 -Fibracol Plus 4x4 1 -Mepilex Border 1 Pain Scale: 0-10 Numeric Is Patient Pain Free? 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: CODE(S): L98.492 - Non-pressure chronic ulcer of skin of other sites with fat layer exposed (2) Type 2 diabetes mellitus: CODE(S): E11.9 - Type 2 diabetes mellitus without complications QUALIFIERS: Diabetes mellitus complication status: with kidney complications (3) History of coronary artery bypass graft: CODE(S): Z95.1 - Presence of aortocoronary bypass graft (4) ESRD (end stage renal disease) on dialysis: CODE(S): N18.6 - End stage renal disease; Z99.2 - Dependence on renal dialysis (5) Hypertension: CODE(S): I10 - Essential (primary) hypertension PLAN: Plan Patient evaluated at the wound healing center. His cardiothoracic surgeon office transferred his wound care to the wound center. His insurance denied approval for the advanced skin substitute Epifix. We had the opportunity to apply 6 application of donated sample of an advanced skin substitute, Matrion. Wound care - Aquacel-Ag covered with [place] SAP daily after washing with soap and water. Wound culture obtained on 07/06/22 which was positive for MSSA, Coag negative staph, and Klebsiella oxytoca. He has a PCN allergy he is tolerating Bactrim and Doxycycline. Encouraged patient to eat a high protein, low sodium, low carbohydrate diet. Continue dialysis as scheduled on . Once he has a wound center in [place] that will take him as a patient, we will send his records to them so he has continuity of care. Follow up one week.
== END 2022-10-20 23:59 | disposition home or self-care (01) ==
LOC: WC 08:45
PROVIDERS: PCP Internal Medicine; Referring Provider Internal Medicine; Visit Provider Nurse Practitioner Family
DX: T81.31XA Disruption of external operation (surgical) wound, not elsewhere classified, initial encounter (principal); I13.2 Hypertensive heart and chronic kidney disease with heart failure and with stage 5 chronic kidney disease, or end stage renal disease; L98.492 Non-pressure chronic ulcer of skin of other sites with fat layer exposed; Z99.2 Dependence on renal dialysis; I50.9 Heart failure, unspecified; E11.22 Type 2 diabetes mellitus with diabetic chronic kidney disease; N18.6 End stage renal disease; I48.91 Unspecified atrial fibrillation; Z79.4 Long term (current) use of insulin; Y83.2 Surgical operation with anastomosis, bypass or graft as the cause of abnormal reaction of the patient, or of later complication, without mention of misadventure at the time of the procedure; I25.10 Atherosclerotic heart disease of native coronary artery without angina pectoris; Z79.82 Long term (current) use of aspirin; Z79.02 Long term (current) use of antithrombotics/antiplatelets; Z79.01 Long term (current) use of 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; Z79.899 Other long term (current) drug therapy; Z95.1 Presence of aortocoronary bypass graft
CPT/HCPCS: 11042; 15271; 15275

== ENCOUNTER 2022-10-19 13:00 | Outpatient (RCR) | payer MEDICARE, SELFPAY ==
[2022-08-26 09:38] VITALS: BMI 46.3
[2022-09-20 00:21] VITALS: BP 118/58; BP 158/70; PULSE 89; RESP 18; TEMP 36.4
--- NOTE | 2022-09-28 13:00 | PCM.CR.ITP ---
Nutrition - Initial Assessment Weight Mgt (Other Care) Height: 5 ft 8 in Weight:: 301 lb 8 oz BMI: 45.8 Psychosocial - Initial Assess Target Goals Target Goals Patient Health Questionnaire PHQ-9 Screening 60-Day Re-eval Assessment: 1. Little interest or pleasure in doing things: More than half the days 2. Feeling down, depressed, or hopeless: More than half the days 3. Trouble falling or staying asleep, or sleeping too much: Not at all 4. Feeling tired or having little energy: More than half the days 5. Poor appetite or overeating: Not at all 6. Feeling bad about yourself -- or that you are a failure or have let yourself or your family down: Several days 7. Trouble concentrating on things, such as reading the newspaper or watching television: Not at all 8. Moving or speaking so slowly that other people could have noticed. Or the opposite - being so fidgety or restless that you have been moving around a lot more than usual: Not at all 9. Thoughts that you would be better off , or of hurting yourself in some way: Not at all How difficult have these problems made it for you to do your work, take care of things at home, or get along with other people?: Somewhat difficult Total Score: 7 Self-Efficacy 6-Item Scale 60-Day Re-eval Assessment: We would like to know how confident you are in doing certain activities. Please select your confidence level for: Fatigue Select Number: 5 Physical Discomfort or Pain Select Number: 7 Emotional Distress Select Number: 5 Other Symptoms or Health Problems Select Number: 8 Different Tasks and Activities Select Number: 4 Medication Select Number: 6 Total Score:: 5 Nutrition Survey Nutrition Survey Instructions Scoring Instructions Exercise - 60-day Assessment Visit Date of Eval: 09/28/22 Session #:: 21 Physician Prescribed Exercise Modalities: NuStep, SciFit and Lateral [employer] Developer Frequency: 3x/week for 12 weeks [36 sessions] Intensity: 60-80% of age predicted maximum heart rate reserve Duration: 30 - 45 minutes Current METSs:: 3 Target Heart Rate:: 111-135 Current RPE:: 11-14 Maximum Excercise HR:: 90 Resting Blood Pressure: 122/78 Maximum Exercise Blood Pressure: 160/72 EKG Type: NSR with rare pac. Outcomes & Goals Goals:: Verbalizes understanding of THR, RPE & goal METS by session 6, Documents in home exercise log/reports 30 min aerobic 5 day/wk by DC, Demonstrates accurate pulse taking by DC and Other additional outcome/goals: see below Intervention & Plan Exercise Program Goals: Instruct on personal THR & RPE, Instruct on MET level & personal MET goal, Show patient to take own pulse /validate performance until accurate, Instruct on home exercise and Other additional plan/int 30-day Reassessments 30 day Reassessments:: Progressing Reassessment Notes & Comments:: THR explained Physical Activity Home Exercise Physical Activity - Home Exercise: Safe Exercise, Warm-up, Self-monitoring, Cool-Down, Home Exercise > 30 min Daily and Sitting Time <3 hours/daily Outcomes & Goals Outcomes/Goals: Demonstrates correct Warm-up/exercise Cool-Down (S3) if = 2.5 METs, Verbalizes symptoms of exercise intolerance by Session 3 (S3), Demonstrate safe equipment use (S3) & follows exercise prescrition (6) and Other: See below Intervention & Plan Plan/Intervention: Instruct warm-up & cool-down if exercising at > 2 METs, Instruct on symptoms of exercise intolerance & actions to take, Instruct & monitor on saf, Assess intial functional capacity & safety risk and Other See below 30-day Reassessments 30 day Reassessments:: Progressing Reassessment Notes & Comments:: cool down encouraged Nutrition - 30-Day Assessment Weight Mgt (Other Care) Height: 5 ft 8 in Weight:: 301 lb 8 oz BMI: 45.8 Nutrition - 60-Day Assessment Program Goals Nutrition Program Goals Patient has diagnosis of Hyperlipidemia (ICD E78)?: Yes Visit Date of Eval: 09/28/22 Session #:: 21 Cholesterol/Lipids (Other Core Measures) Determine presence & major risk factors that modify LDL goal: Hypertension or hypertensive medication, Low HDL cholesterol <40 mg/dL*, Family history of premature CHD in Male < 55 years: female <65 yearsFa and Age men > 45 years; women >/= 55 years Outcomes/Goals: Pt IDs own risk factors & lifestyle modifications by Session 10, Verbalizes symptoms of angina & response by session 3., Pt independently manages and Other Additional Outcomes/Goals: Intervention/Plan: Advocate for lipid panel cholesterol medication if applicable, Instruct on personal lipid levels & lipid goals/NCEP guidelines, Instruct on cholesterol and Other additional plan/int 30-day Reassessments:: Progressing Reassessment Notes & Comments:: pt attending nutrition class Diabetes (Other Core Measures) Diabetes Type: Diagnosis Type II ICD-10 E11 Insulin dependent injection/pump?: Yes Non-Insulin Dependent?: Yes Do you monitor your blood sugar at home?: Yes Referral to Diabetic Clinic:: Yes Outcomes/Goals:: Able to state symptoms of, Able to state, Able to state and Other additional Intervention/Plan:: Instruct on, Refer to, Instruct on and Other Weight Mgt (Other Care) Height: 5 ft 8 in Weight:: 301 lb 8 oz BMI: 45.8 Diagnosis Overweight/Obesity BMI> 30% ICD-10 E66: Yes Diagnosis High BMI/Morbid Obesity BMI> 35% ICD-10 Z68: Yes Outcomes/Goals: Pt sets, maintains & shows weight loss goal & trend during rehab and Other additional outcomes/goals Intervention/Plan: Instruct on ideal BMI & set weight loss goal w/patient, Assist pt to ID & incorporate diet changes for weight loss by S9, Refer to Structured Weight Loss program as appropriate, Encourage goal of using 250-300dcal per session for weight loss and Other additional plan/interventions 30 day Reassessments:: Progressing Reassessment Notes & Comments:: pt has lost some weight Healthy Eating Habits Will attend diet classes:: Yes Outcomes/Goals:: Consume diet rich in vegs,fruits,whole grain/high fiber,fish,lean meat, Limit sat/trans fats,cholesterol & added salts & sugars and Other additional outcome/goals: Intervention/Plan:: Assess current eating habits and Other Additional plan/interventions 30-day Reassessments:: Progressing Reassessment Notes & Comments:: will attend nutrition class Education Gave educational materials for:: Signs & symptoms of hypoglycemia, Signs & symptoms of hyperglycemia, Relate diabetes to coronary artery disease and Healthy eating Core - 60-Day Assessment Visit Date of Eval: 09/28/22 Session #:: 21 Medication Compliance Preventative Medication(s):: Aspirin, SRINIVASA inhibitor, Statin/lipid, Beta ashlee and Warfarin/Coumadin H/O mental health issues: depression, anxiety, or addiction?: No Doesn?t believe in the benefits of treatment?: No Believes medications are unnecessary or harmful?: No Has a concern about medication side effects?: No Expresses concern over the cost of medications?: No Outcomes/Goals: Verbalizes medications,desired effect & common side effects @ DC, Pt self-reports following medication regimen, Keeps card in wallet w/medications listed by DC and Other additional outcome/goals: Interventions/plans: Instruct on medication effects & side effects, Review medication list w/patient every two weeks, Instruct importance of taking meds as ordered & assist problem solving and Other additional Tobacco Use Tobacco Use: Non-smoker Hypertension Hypertension Diagnosis:: Hypertension ICD-10 I10 Resting Blood Pressure:: 122/78 Citizen [place] [employer] Hypertension Guidelines Peak Exercise Blood Pressure:: 160/72 Outcomes/Goals: Able to verbalize/achieve optimal blood pressure <130/80, Incorporates diet changes & exercise for blood pressure control by DC and Other additional outcomes/goals Interventions/plan: Instruct on optimal blood pressure, hypertension & medications, Instruct on effects of sodium, alcohol, stress, exercise &hypertension and Other additional plan/interventions 30 day Reassessments:: Not Met Tobacco Cessation Referral Smoking Cessation Referral:: No Individual Education/Counseling:: No Psychosocial - 30-Day Assess Target Goals Target Goals Psychosocial - 60-Day Assess VIsit Date of Eval: 09/28/22 Session #:: 21 History of previous Mental disease:: No Target Goals Target Goals Psychosocial - 90-Day Assess Target Goals Target Goals Psychosocial - Final Assessmen Target Goals Target Goals Nutrition - 90-Day Assessment Weight Mgt (Other Care) Height: 5 ft 8 in Weight:: 301 lb 8 oz BMI: 45.8 Nutrition - Final Assessment Weight Mgt (Other Care) Height: 5 ft 8 in Weight:: 301 lb 8 oz BMI: 45.8
[2022-09-28 13:14] VITALS: BP 122/78; BMI 45.8
== END 2022-10-20 23:59 ==
LOC: CR 13:00
PROVIDERS: PCP Internal Medicine; Referring Provider Thoracic Surgery (Cardiothoracic Vascular Surgery); Visit Provider Thoracic Surgery (Cardiothoracic Vascular Surgery)
DX: Z95.1 Presence of aortocoronary bypass graft (principal)
CPT/HCPCS: 93798

== ENCOUNTER 2022-10-21 08:27 | Outpatient (RCR) | payer MEDICARE, SELFPAY ==
[2022-09-28 13:14] VITALS: BMI 45.8
[2022-10-21 00:12] VITALS: BP 118/58; BP 122/78; BP 158/70; PULSE 89; RESP 18; TEMP 36.4
--- NOTE | 2022-10-28 07:23 | CR.ITP_ITS ---
Nutrition - Initial Assessment Weight Mgt (Other Care) Height: 5 ft 8 in Weight:: 301 lb BMI: 45.7 Psychosocial - Initial Assess Target Goals Target Goals Patient Health Questionnaire PHQ-9 Screening 90-Day Re-eval Assessment: 1. Little interest or pleasure in doing things: More than half the days 2. Feeling down, depressed, or hopeless: More than half the days 3. Trouble falling or staying asleep, or sleeping too much: Not at all 4. Feeling tired or having little energy: More than half the days 5. Poor appetite or overeating: Not at all 6. Feeling bad about yourself -- or that you are a failure or have let yourself or your family down: Several days 7. Trouble concentrating on things, such as reading the newspaper or watching television: Not at all 8. Moving or speaking so slowly that other people could have noticed. Or the opposite - being so fidgety or restless that you have been moving around a lot more than usual: Not at all 9. Thoughts that you would be better off , or of hurting yourself in some way: Not at all How difficult have these problems made it for you to do your work, take care of things at home, or get along with other people?: Somewhat difficult Total Score: 7 Self-Efficacy 6-Item Scale 90-Day Re-eval Assessment: We would like to know how confident you are in doing certain activities. Please select your confidence level for: Fatigue Select Number: 5 Physical Discomfort or Pain Select Number: 7 Emotional Distress Select Number: 5 Other Symptoms or Health Problems Select Number: 8 Different Tasks and Activities Select Number: 4 Medication Select Number: 6 Total Score:: 5 Nutrition Survey Nutrition Survey Instructions Scoring Instructions Exercise - 90-day Assessment Visit Date of Eval: 10/28/22 Session #:: 29 Comments:: Marco is moving to another state and is no longer attending rehab Physician Prescribed Exercise Modalities: NuStep, SciFit and Lateral [place] Frequency: 3x/week for 12 weeks [36 sessions] Intensity: 60-80% of age predicted maximum heart rate reserve Duration: 30 - 45 minutes Current METSs:: 3 Target Heart Rate:: 111-135 Current RPE:: 12 Maximum Excercise HR:: 95 Resting Blood Pressure: 100/80 Maximum Exercise Blood Pressure: 110/60 Outcomes & Goals Goals:: Verbalizes understanding of THR, RPE & goal METS by session 6, Documents in home exercise log/reports 30 min aerobic 5 day/wk by DC, Demonstrates accurate pulse taking by DC and Other additional outcome/goals: see below Intervention & Plan Exercise Program Goals: Instruct on personal THR & RPE, Instruct on MET level & personal MET goal, Show patient to take own pulse /validate performance until accurate, Instruct on home exercise and Other additional plan/int 30-day Reassessments 30 day Reassessments:: Met Physical Activity Home Exercise Physical Activity - Home Exercise: Safe Exercise, Warm-up, Self-monitoring, Cool-Down, Home Exercise > 30 min Daily and Sitting Time <3 hours/daily Outcomes & Goals Outcomes/Goals: Demonstrates correct Warm-up/exercise Cool-Down (S3) if = 2.5 METs, Verbalizes symptoms of exercise intolerance by Session 3 (S3), Demonstrate safe equipment use (S3) & follows exercise prescrition (6) and Other: See below Intervention & Plan Plan/Intervention: Instruct warm-up & cool-down if exercising at > 2 METs, Instruct on symptoms of exercise intolerance & actions to take, Instruct & monitor on saf, Assess intial functional capacity & safety risk and Other See below 30-day Reassessments 30 day Reassessments:: Met Nutrition - 30-Day Assessment Weight Mgt (Other Care) Height: 5 ft 8 in Weight:: 301 lb BMI: 45.7 Nutrition - 60-Day Assessment Weight Mgt (Other Care) Height: 5 ft 8 in Weight:: 301 lb BMI: 45.7 Core - 90 Day Assessment Visit Date of Eval: 10/28/22 Session #:: 29 Medication Compliance Preventative Medication(s):: Aspirin, SRINIVASA inhibitor, Statin/lipid, Beta ashlee and Warfarin/Coumadin H/O mental health issues: depression, anxiety, or addiction?: No Doesn?t believe in the benefits of treatment?: No Believes medications are unnecessary or harmful?: No Has a concern about medication side effects?: No Expresses concern over the cost of medications?: No Outcomes/Goals: Verbalizes medications,desired effect & common side effects @ DC, Pt self-reports following medication regimen, Keeps card in wallet w/medi cations listed by DC and Other additional outcome/goals: Interventions/plans: Instruct on medication effects & side effects, Review medication list w/patient every two weeks, Instruct importance of taking meds as ordered & assist problem solving and Other additional 30-day Reassessments:: Met Tobacco Use Tobacco Use: Non-smoker Hypertension Hypertension Diagnosis:: Hypertension ICD-10 I10 [place] [employer] Hypertension Guidelines Outcomes/Goals: Able to verbalize/achieve optimal blood pressure <130/80, Incorporates diet changes & exercise for blood pressure control by DC and Other additional outcomes/goals Interventions/plan: Instruct on optimal blood pressure, hypertension & medications, Instruct on effects of sodium, alcohol, stress, exercise &hypertension and Other additional plan/interventions 30 day Reassessments:: Met Tobacco Cessation Referral Smoking Cessation Referral:: No Individual Education/Counseling:: No Education Schedule Given:: Yes Psychosocial - 30-Day Assess Target Goals Target Goals Psychosocial - 60-Day Assess Target Goals Target Goals Psychosocial - 90-Day Assess VIsit Date of Eval: 10/28/22 Session #:: 29 History of previous Mental disease:: No Target Goals Target Goals Psychosocial - Final Assessmen Target Goals Target Goals Nutrition - 90-Day Assessment Visit Date of Eval: 10/28/22 Session #:: 29 Cholesterol/Lipids (Other Core Measures) Determine presence & major risk factors that modify LDL goal: Cigarette smoking, Hypertension or hypertensive medication, Low HDL cholesterol <40 mg/dL*, Family history of premature CHD in Male < 55 years: female <65 yearsFa and Age men > 45 years; women >/= 55 years Outcomes/Goals: Pt IDs own risk factors & lifestyle modifications by Session 10, Verbalizes symptoms of angina & response by session 3., Pt independently manages and Other Additional Outcomes/Goals: Intervention/Plan: Advocate for lipid panel cholesterol medication if applicable, Instruct on personal lipid levels & lipid goals/NCEP guidelines, Instruct on cholesterol and Other additional plan/int 30-day Reassessments:: Met Diabetes (Other Core Measures) Diabetes Type: Diagnosis Type II ICD-10 E11 Insulin dependent injection/pump?: Yes Non-Insulin Dependent?: Yes Do you monitor your blood sugar at home?: Yes Referral to Diabetic Clinic:: Yes Outcomes/Goals:: Able to state symptoms of, Able to state, Able to state and Other additional Intervention/Plan:: Instruct on, Refer to, Instruct on and Other 30-day Reassessments:: Met Weight Mgt (Other Care) Height: 5 ft 8 in Weight:: 301 lb BMI: 45.7 Diagnosis Overweight/Obesity BMI> 30% ICD-10 E66: Yes Diagnosis High BMI/Morbid Obesity BMI> 35% ICD-10 Z68: Yes Outcomes/Goals: Pt sets, maintains & shows weight loss goal & trend during rehab and Other additional outcomes/goals Intervention/Plan: Instruct on ideal BMI & set weight loss goal w/patient, Assist pt to ID & incorporate diet changes for weight loss by S9, Refer to Structured Weight Loss program as appropriate, Encourage goal of using 250- 300dcal per session for weight loss and Other additional plan/interventions 30 day Reassessments:: Not Met Education Gave educational materials for:: Signs & symptoms of hypoglycemia, Signs & symptoms of hyperglycemia, Relate diabetes to coronary artery disease and Healthy eating Nutrition - Final Assessment Weight Mgt (Other Care) Height: 5 ft 8 in Weight:: 301 lb BMI: 45.7
[2022-10-28 07:30] VITALS: BP 100/80; BMI 45.7
== END 2022-11-19 23:59 ==
LOC: CR 08:27
PROVIDERS: PCP Internal Medicine; Referring Provider Thoracic Surgery (Cardiothoracic Vascular Surgery); Visit Provider Thoracic Surgery (Cardiothoracic Vascular Surgery)
DX: Z95.1 Presence of aortocoronary bypass graft (principal)
CPT/HCPCS: 93798

== ENCOUNTER 2022-11-16 08:45 | Outpatient (RCR) | payer MEDICARE, SELFPAY ==
[2022-09-28 13:14] VITALS: BMI 45.8
[2022-10-21 00:29] VITALS: BP 125/70; PULSE 85; RESP 16; TEMP 36.7; BMI 43.9
[2022-10-26 08:41] VITALS: BP 148/71; PULSE 95; RESP 18; TEMP 35.9; BMI 43.9
--- NOTE | 2022-10-26 09:18 | PCM.WC.PN ---
History of Present Illness Date of Service: 10/26/22 Chief Complaint: Mid-sternal ulcer History of Wound: This 62-year-old male with multiple comorbidities presents to the wound healing center for an ulcer on his mid sternum after CABG 01/11. He states that he had an PR while receiving dialysis and was transferred to [facility] where he had bypass surgery. He was discharged to [facility] for rehab. He was then readmitted to [facility] for fluid on his lungs. He said that he is not sure when the incision dehiscence occurred. He states he is receiving an antibiotic on the days he has dialysis. He is unsure of the antibiotic but it is for 6 weeks. He was referred to us for wound VAC changes and wound care. Patient has an extensive history of CAD, CABG, T2D, ESRD - on dialysis T--Mon, on Warfarin, CHF, HTN, Afib. He is a very poor historian. His wound has been managed by his cardiothoracic surgeon's practice until now. He has had a wound VAC since February 2022. He comes here today for evaluation and treatment of his healing sternal ulcer. Wound culture obtained on 07/06/22 which was positive for MSSA, Coag negative staph, Klebsiella oxytoca. He was started on Bactrim and Doxycycline to treat the organisms. Patient denies fever, chills, nausea, vomiting or diarrhea. Progress of Wound: Midsternal ulcer is slightly smaller. His insurance denied approval for the advanced skin substitute Epifix. We had the opportunity to apply a donated sample of an advanced skin substitute. He had Matrion #6 applications. Patient states that he will be moving to [place] to be closer to his nephew at the end of October. He is in the process of arranging this for his dialysis and follow up appointments. Objective Data Objective Data Vital Signs: Vital Signs Temp Pulse Resp BP O2 Del Method 96.7 F L 95 18 148/71 H Room Air 10/26/22 08:41 10/26/22 08:41 10/26/22 08:41 10/26/22 08:41 10/26/22 08:41 Oxygen Delivery Method Room Air Weight: 289 lb Body Mass Index (BMI) 43.9 Charges/Coding Procedures Integumentary 111xxx-113xx: [id number] Ingrid subq tissue 20 sq cm/< Debridement Note Debridement Note Wound debrided: midsternal chest ulcer cluster Wound Grade/Stage: Stage III Type of Debridement: Excisional debridement Anesthesia Used: 5% Lidocaine Gel Depth: Down to and including healthy tissue and in the subcutaneous layer Percentage of wound debrided: 100 Instrument Used: 3mm curette Tissue Removed: Devitalized tissue and slough Severity: Fat Layer Exposed Amount of bleeding with debridement: Mild Bleeding Controlled with: Pressure and Compression and gauze Patient tolerated procedure: Patient tolerated procedure well Debridement Free Text: Good bleeding obtained with debridement, wound bed beefy pink. Post-Debridement Measurements and Additional Note: Post-Debridement Measurements/Treatment - Nurse 1 - General Ulcer Assessment Start: 10/26/22 08:41 Freq: Status: Active Protocol: ROSS Activity Type Activity Date Activity User E-sign Co-sign Detail Recorded Client Recorded Date Recorded By Document 10/26/22 08:41 KW [id number] 10/26/22 08:50 KW 10/26/22 08:41 WC - Today's Visit Information Type of service Initial Visit Arrival Mode Ambulatory Patient Identification Verified (Name & Yes ) Height and Weight Body Mass Index (BMI) 43.9 BMI Classification Obese Vital Signs Temperature (97.8 F-99.1 F) 96.7 F L Temperature Source Temporal Pulse Rate (60-100) 95 Pulse Location Monitor Respiratory Rate (12-18) 18 Respiratory rate source Observation Oxygen Delivery Method Room Air Blood Pressure (90/60-120/80) 148/71 H Blood Pressure Mean (mm Hg) 96 Source Monitor Position Semi-Fowlers Blood Pressure Location Left Arm History Since Last Visit- (Skip if this is Patient's initial visit) Have you changed medications since your No last visit? Any new allergies or adverse reactions No Had a fall/change in ADL's that may No increase risk of falls Signs or symptoms of abuse and/or No neglect since last visit Have you been in the hospital since your No last visit? Has dressing in place as prescribed Yes Has compression in place as prescribed N/A Has offloadiing in place as prescribed N/A Experienced any changes in pain level or No management Left Footwear Regular Shoe Right Footwear Regular Shoe Pain Scale: 0-10 Numeric Is Patient Pain Free? Yes - Nurse 1 - General Ulcer Measurement Start: 10/26/22 08:41 Freq: Status: Active Protocol: Activity Type Activity Date Activity User E-sign Co-sign Detail Recorded Client Recorded Date Recorded By Document 10/26/22 08:41 KW [id number] 10/26/22 08:50 KW 10/26/22 08:41 Wound Center Nurse 1 #5- STERNUM cluster -Current Size (cm) - Length 0.7 -Current Size (cm) - Width 0.7 -Current Size (cm) - Depth 0.4 -Total Square Cm 0.49 -Tunneling No -Undermining/Tunneling No -Circular Undermining No -Exudate Amt Small -Exudate Type Serosanguineous -Wound Margin Distinct, Outline Attached -Granulation Quality [place] -Necrosis Amt Small (1-33%) -Necrotic Tissue Type Adherent Slough -Structure Exposed None/Limited to Skin Breakdown -Texture (Fiona-wound Skin Appearance) Assessed -Moisture (Fiona-wound Skin Appearance) Assessed -Color (Fiona-wound Skin Appearance) Assessed -Temperature (Fiona-wound Skin No Abnormality Appearance) (Pt Warm) -Ulcer Cleansing Rinsed/ Irrigated with Saline -Foul Odor after Cleansing No -Anesthetic Used 5% Lidocaine Gel Lower Limb Edema Present NA WC - Nurse 2 - General Ulcer CM Notes Start: 10/26/22 08:41 Freq: Status: Active Protocol: Activity Type Activity Date Activity User E-sign Co-sign Detail Recorded Client Recorded Date Recorded By Document 10/26/22 09:05 REID [id number] 10/26/22 09:06 10/26/22 09:05 Wound Center Nurse 2 #5- STERNUM cluster -Time 09:06 -Correct Patient Yes -Correct Side, Site, Position Yes -Correct Procedure Yes -Procedure Performed Yes -Type of Procedure Debridement -Clinical Debridement Subcutaneous -Tissue Removed Subcutaneous -Post Debridement (cm) - Length 0.7 -Post Debridement (cm) - Width 0.7 -Post Debridement (cm) - Depth 0.3 -Total Square (Post) (cm) 0.49 -Area of Debridement (cm) - Length 0.7 -Area of Debridement (cm) - Width 0.7 -Total Square (Area) (cm) 0.49 -Tunneling No -Undermining/Tunneling No -Circular Undermining No -Wound/Ulcer Outcome Not Healed -Ulcer Cleansing Rinsed/ Irrigated with Saline -Foul Odor after Cleansing No -Bioengineered Tissue No -Bleeding Controlled with Pressure -Treatment Response Procedure Tolerated Well -Offloading No -Debridement - Subq, 1st 20sq cm Yes Pain Scale: 0-10 Numeric Is Patient Pain Free? Yes - Nurse 3 - General Ulcer D/C NN Start: 10/26/22 08:41 Freq: Status: Active Protocol: Activity Type Activity Date Activity User E-sign Co-sign Detail Recorded Client Recorded Date Recorded By Document 10/26/22 09:07 [id number] 10/26/22 09:07 REID 10/26/22 09:07 Wound Care Center Nurse 3 #5- STERNUM cluster -Ulcer Cleansing Rinsed/ Irrigated with Saline -Foul Odor after Cleansing No -Primary Dressing Applied Fibracol Plus 4x4,Mepilex Border -Fibracol Plus 4x4 1 -Mepilex Border 1 Pain Scale: 0-10 Numeric Is Patient Pain Free? 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: CODE(S): L98.492 - Non-pressure chronic ulcer of skin of other sites with fat layer exposed (2) Type 2 diabetes mellitus: CODE(S): E11.9 - Type 2 diabetes mellitus without complications QUALIFIERS: Diabetes mellitus complication status: with kidney complications (3) History of coronary artery bypass graft: CODE(S): Z95.1 - Presence of aortocoronary bypass graft (4) ESRD (end stage renal disease) on dialysis: CODE(S): N18.6 - End stage renal disease; Z99.2 - Dependence on renal dialysis (5) Hypertension: CODE(S): I10 - Essential (primary) hypertension PLAN: Plan Patient evaluated at the wound healing center. His cardiothoracic surgeon office transferred his wound care to the wound center. His insurance denied approval for the advanced skin substitute Epifix. We had the opportunity to apply 6 application of donated sample of an advanced skin substitute, Matrion. Wound care - Fibracol + moistened, topped with [place] SAP daily after washing with soap and water. Wound culture obtained on 07/06/22 which was positive for MSSA, Coag negative staph, and Klebsiella oxytoca. He has a PCN allergy he is tolerating Bactrim and Doxycycline. Encouraged patient to eat a high protein, low sodium, low carbohydrate diet. Continue dialysis as scheduled on . Once he has a wound center in [place] that will take him as a patient, we will send his records to them so he has continuity of care. Follow up one week.
[2022-11-02 09:16] VITALS: BP 147/70; PULSE 83; RESP 18; TEMP 36.4; BMI 43.9
--- NOTE | 2022-11-02 11:14 | PN.PCM_ITS ---
History of Present Illness Date of Service: 11/02/22 Chief Complaint: Mid-sternal ulcer History of Wound: This 62-year-old male with multiple comorbidities presents to the wound healing center for an ulcer on his mid sternum after CABG 01/11. He states that he had an CA while receiving dialysis and was transferred to [facility] where he had bypass surgery. He was discharged to [facility] for rehab. He was then readmitted to [facility] for fluid on his lungs. He said that he is not sure when the incision dehiscence occurred. He states he is receiving an antibiotic on the days he has dialysis. He is unsure of the antibiotic but it is for 6 weeks. He was referred to us for wound VAC changes and wound care. Patient has an extensive history of CAD, CABG, T2D, ESRD - on dialysis T--Mon, on Warfarin, CHF, HTN, Afib. He is a very poor historian. His wound has been managed by his cardiothoracic surgeon's practice until now. He has had a wound VAC since February 2022. He comes here today for evaluation and treatment of his healing sternal ulcer. Wound culture obtained on 07/06/22 which was positive for MSSA, Coag negative staph, Klebsiella oxytoca. He was started on Bactrim and Doxycycline to treat the organisms. Patient denies fever, chills, nausea, vomiting or diarrhea. Progress of Wound: Midsternal ulcer is slightly smaller and the base is a nice beefy pink color. His insurance denied approval for the advanced skin substitute Epifix. We had the opportunity to apply a donated sample of an advanced skin substitute. He had Matrion #6 applications. Patient states that he will be moving to [place] to be closer to his nephew, possibly at the end of October. He is in the process of arranging this for his dialysis and follow up appointments. Objective Data Objective Data Vital Signs: Vital Signs Temp Pulse Resp BP O2 Del Method 97.6 F L 83 18 147/70 H Room Air 11/02/22 09:16 11/02/22 09:16 11/02/22 09:16 11/02/22 09:16 10/26/22 08:41 Oxygen Delivery Method Room Air Weight: 289 lb Body Mass Index (BMI) 43.9 Charges/Coding Procedures Integumentary 111xxx-113xx: [id number] Ingrid subq tissue 20 sq cm/< Debridement Note Debridement Note Wound debrided: midsternal chest ulcer cluster Wound Grade/Stage: Stage III Type of Debridement: Excisional debridement Anesthesia Used: 5% Lidocaine Gel Depth: Down to and including healthy tissue and in the subcutaneous layer Percentage of wound debrided: 100 Instrument Used: 3mm curette Tissue Removed: Devitalized tissue and slough Severity: Fat Layer Exposed Amount of bleeding with debridement: Mild Bleeding Controlled with: Pressure and Compression and gauze Patient tolerated procedure: Patient tolerated procedure well Debridement Free Text: Good bleeding obtained with debridement, wound bed beefy pink. Post-Debridement Measurements and Additional Note: Post-Debridement Measurements/Treatment WC - Nurse 1 - General Ulcer Assessment Start: 10/26/22 08:41 Freq: Status: Active Protocol: ROSS Activity Type Activity Date Activity User E-sign Co-sign Detail Recorded Client Recorded Date Recorded By Document 10/26/22 08:41 KW [id number] 10/26/22 08:50 KW Document 11/02/22 09:16 PL [id number] 11/02/22 09:19 PL 10/26/22 11/02/22 08:41 09:16 - Today's Visit Information Type of service Initial Visit Follow-up Visit (Physician/EMERGENCY COMMUNICATIONS DISPATCHER ) Arrival Mode Ambulatory Cane Transfer Assistance None Patient Identification Verified (Name & Yes Yes ) Patient Requires Transmission-Based No Precautions Safety Precautions Fall Prevention Height and Weight Body Mass Index (BMI) 43.9 43.9 BMI Classification Obese Obese Vital Signs Temperature (97.8 F-99.1 F) 96.7 F L 97.6 F L Temperature Source Temporal Temporal Pulse Rate (60-100) 95 83 Pulse Location Monitor Respiratory Rate (12-18) 18 18 Respiratory rate source Observation Oxygen Delivery Method Room Air Blood Pressure (90/60-120/80) 148/71 H 147/70 H Blood Pressure Mean (mm Hg) 96 95 Source Monitor Position Semi-Fowlers Blood Pressure Location Left Arm History Since Last Visit- (Skip if this is Patient's initial visit) Have you changed medications since your No No last visit? Any new allergies or adverse reactions No No Had a fall/change in ADL's that may No No increase risk of falls Signs or symptoms of abuse and/or No No neglect since last visit Have you been in the hospital since your No No last visit? Has dressing in place as prescribed Yes Yes Has compression in place as prescribed N/A N/A Has offloadiing in place as prescribed N/A N/A Experienced any changes in pain level or No No management Left Footwear Regular Shoe Right Footwear Regular Shoe Pain Scale: 0-10 Numeric Is Patient Pain Free? Yes Yes - Nurse 1 - General Ulcer Measurement Start: 10/26/22 08:41 Freq: Status: Active Protocol: Activity Type Activity Date Activity User E-sign Co-sign Detail Recorded Client Recorded Date Recorded By Document 10/26/22 08:41 PALAK [id number] 10/26/22 08:50 KW 10/26/22 08:41 Wound Center Nurse 1 #5- STERNUM cluster -Current Size (cm) - Length 0.7 -Current Size (cm) - Width 0.7 -Current Size (cm) - Depth 0.4 -Total Square Cm 0.49 -Tunneling No -Undermining/Tunneling No -Circular Undermining No -Exudate Amt Small -Exudate Type Serosanguineous -Wound Margin Distinct, Outline Attached -Granulation Quality [place] -Necrosis Amt Small (1-33%) -Necrotic Tissue Type Adherent Slough -Structure Exposed None/Limited to Skin Breakdown -Texture (Fiona-wound Skin Appearance) Assessed -Moisture (Fiona-wound Skin Appearance) Assessed -Color (Fiona-wound Skin Appearance) Assessed -Temperature (Fiona-wound Skin No Abnormality Appearance) (Pt Warm) -Ulcer Cleansing Rinsed/ Irrigated with Saline -Foul Odor after Cleansing No -Anesthetic Used 5% Lidocaine Gel Lower Limb Edema Present NA - Nurse 2 - General Ulcer CM Notes Start: 10/26/22 08:41 Freq: Status: Active Protocol: Activity Type Activity Date Activity User E-sign Co-sign Detail Recorded Client Recorded Date Recorded By Document 10/26/22 09:05 [id number] 10/26/22 09:06 Document 11/02/22 09:33 [id number] 11/02/22 09:34 10/26/22 11/02/22 09:05 09:33 Wound Center Nurse 2 #5- STERNUM cluster -Time 09:06 09:33 -Correct Patient Yes Yes -Correct Side, Site, Position Yes Yes -Correct Procedure Yes Yes -Procedure Performed Yes Yes -Type of Procedure Debridement Debridement -Clinical Debridement Subcutaneous Subcutaneous -Tissue Removed Subcutaneous Subcutaneous -Post Debridement (cm) - Length 0.7 0.6 -Post Debridement (cm) - Width 0.7 0.7 -Post Debridement (cm) - Depth 0.3 0.2 -Total Square (Post) (cm) 0.49 0.42 -Area of Debridement (cm) - Length 0.7 0.6 -Area of Debridement (cm) - Width 0.7 0.7 -Total Square (Area) (cm) 0.49 0.42 -Tunneling No No -Undermining/Tunneling No No -Circular Undermining No No -Wound/Ulcer Outcome Not Healed Not Healed -Ulcer Cleansing Rinsed/ Rinsed/ Irrigated with Irrigated with Saline Saline -Foul Odor after Cleansing No No -Bioengineered Tissue No No -Bleeding Controlled with Pressure Pressure -Treatment Response Procedure Procedure Tolerated Well Tolerated Well -Offloading No No -Debridement - Subq, 1st 20sq cm Yes Yes Pain Scale: 0-10 Numeric Is Patient Pain Free? Yes Yes - Nurse 3 - General Ulcer D/C NN Start: 10/26/22 08:41 Freq: Status: Active Protocol: Activity Type Activity Date Activity User E-sign Co-sign Detail Recorded Client Recorded Date Recorded By Document 10/26/22 09:07 [id number] 10/26/22 09:07 Document 11/02/22 09:34 [id number] 11/02/22 09:34 10/26/22 11/02/22 09:07 09:34 Wound Care Center Nurse 3 #5- STERNUM cluster -Ulcer Cleansing Rinsed/ Rinsed/ Irrigated with Irrigated with Saline Saline -Foul Odor after Cleansing No No -Primary Dressing Applied Fibracol Plus Fibracol Plus 4x4,Mepilex 4x4,Mepilex Border Border -Fibracol Plus 4x4 1 1 -Mepilex Border 1 1 Pain Scale: 0-10 Numeric Is Patient Pain Free? 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: CODE(S): L98.492 - Non-pressure chronic ulcer of skin of other sites with fat layer exposed (2) Type 2 diabetes mellitus: CODE(S): E11.9 - Type 2 diabetes mellitus without complications QUALIFIERS: Diabetes mellitus complication status: with kidney complications (3) History of coronary artery bypass graft: CODE(S): Z95.1 - Presence of aortocoronary bypass graft (4) ESRD (end stage renal disease) on dialysis: CODE(S): N18.6 - End stage renal disease; Z99.2 - Dependence on renal dialysis (5) Hypertension: CODE(S): I10 - Essential (primary) hypertension PLAN: Plan Patient evaluated at the wound healing center. His cardiothoracic surgeon office transferred his wound care to the wound center. His insurance denied approval for the advanced skin substitute Epifix. We had the opportunity to apply 6 application of donated sample of an advanced skin substitute, Matrion. Wound care - Fibracol + moistened, topped with [place] SAP daily after washing with soap and water. Wound culture obtained on 07/06/22 which was positive for MSSA, Coag negative staph, and Klebsiella oxytoca. He has a PCN allergy he is tolerating Bactrim and Doxycycline. Encouraged patient to eat a high protein, low sodium, low carbohydrate diet. Continue dialysis as scheduled on . Once he has a wound center in [place] that will take him as a patient, we will send his records to them so he has continuity of care. Follow up two weeks due to facility maintenance.
[2022-11-16 08:42] VITALS: BP 119/61; PULSE 77; RESP 18; TEMP 35.9; BMI 43.9
--- NOTE | 2022-11-16 09:48 | PCM.WC.PN ---
History of Present Illness Date of Service: 11/16/22 Chief Complaint: Mid-sternal ulcer History of Wound: This 62-year-old male with multiple comorbidities presents to the wound healing center for an ulcer on his mid sternum after CABG 01/11. He states that he had an W[place] while receiving dialysis and was transferred to [facility] where he had bypass surgery. He was discharged to [facility] for rehab. He was then readmitted to [facility] for fluid on his lungs. He said that he is not sure when the incision dehiscence occurred. He states he is receiving an antibiotic on the days he has dialysis. He is unsure of the antibiotic but it is for 6 weeks. He was referred to us for wound VAC changes and wound care. Patient has an extensive history of CAD, CABG, T2D, ESRD - on dialysis T-TH-Mon, on Warfarin, CHF, HTN, Afib. He is a very poor historian. His wound has been managed by his cardiothoracic surgeon's practice until now. He has had a wound VAC since February 2022. He comes here today for evaluation and treatment of his healing sternal ulcer. Wound culture obtained on 07/06/22 which was positive for MSSA, Coag negative staph, Klebsiella oxytoca. He was started on Bactrim and Doxycycline to treat the organisms. Patient denies fever, chills, nausea, vomiting or diarrhea. Progress of Wound: Midsternal ulcer is healed today with fragile epithelial skin. Objective Data Objective Data Vital Signs: Vital Signs Temp Pulse Resp BP O2 Del Method 96.6 F L 77 18 119/61 Room Air 11/16/22 08:42 11/16/22 08:42 11/16/22 08:42 11/16/22 08:42 11/16/22 08:42 Oxygen Delivery Method Room Air Weight: 289 lb Body Mass Index (BMI) 43.9 Charges/Coding Visit Charges Office Visits / Consults: 79342 OV L3 Est Physical Exam Const alert, oriented x3 and no apparent distress General Appearance: cooperative HEENT normocephalic Eyes General Eye: normal appearance of both eyes Neck full ROM Resp normal respiratory effort, normal air movement and clear to auscultation bilaterally Effort and Inspection: able to speak in complete sentences Cardio regular rate and regular rhythm GI soft to palpation and non-tender Extremity full ROM Skin Wound Narrative: Midsternal ulcer is healed today with fragile epithelial tissue. Neuro oriented x3 Sensorium / Orientation: awake Psych mental status grossly normal, thought process normal and cooperative Debridement Note Debridement Note No debridement was completed: No debridement was completed today Post-Debridement Measurements and Additional Note: Post-Debridement Measurements/Treatment WC - Nurse 1 - General Ulcer Assessment Start: 10/26/22 08:41 Freq: Status: Active Protocol: ROSS Activity Type Activity Date Activity User E-sign Co-sign Detail Recorded Client Recorded Date Recorded By Document 10/26/22 08:41 KW [id number] 10/26/22 08:50 KW Document 11/02/22 09:16 PL [id number] 11/02/22 09:19 PL Document 11/16/22 08:42 KW Desktop 11/16/22 08:51 KW 10/26/22 11/02/22 11/16/22 08:41 09:16 08:42 WC - Today's Visit Information Type of service Initial Visit Follow-up Visit Follow-up Visit (Physician/SALES SPECIAL AGENT (Physician/SALES SPECIAL AGENT ) ) Arrival Mode Ambulatory Cane Ambulatory Transfer Assistance None Patient Identification Verified (Name & Yes Yes ) Patient Requires Transmission-Based No Precautions Safety Precautions Fall Prevention Height and Weight Body Mass Index (BMI) 43.9 43.9 43.9 BMI Classification Obese Obese Obese Vital Signs Temperature (97.8 F-99.1 F) 96.7 F L 97.6 F L 96.6 F L Temperature Source Temporal Temporal Temporal Pulse Rate (60-100) 95 83 77 Pulse Location Monitor Monitor Respiratory Rate (12-18) 18 18 18 Respiratory rate source Observation Ausculation Oxygen Delivery Method Room Air Room Air Blood Pressure (90/60-120/80) 148/71 H 147/70 H 119/61 Blood Pressure Mean (mm Hg) 96 95 80 Source Monitor Monitor Position Semi-Fowlers Semi-Fowlers Blood Pressure Location Left Arm Left Arm History Since Last Visit- (Skip if this is Patient's initial visit) Have you changed medications since your No No No last visit? Any new allergies or adverse reactions No No No Had a fall/change in ADL's that may No No No increase risk of falls Signs or symptoms of abuse and/or No No No neglect since last visit Have you been in the hospital since your No No No last visit? Has dressing in place as prescribed Yes Yes Yes Has compression in place as prescribed N/A N/A No Has offloadiing in place as prescribed N/A N/A No Experienced any changes in pain level or No No No management Left Footwear Regular Shoe Regular Shoe Right Footwear Regular Shoe Pain Scale: 0-10 Numeric Is Patient Pain Free? Yes Yes Yes - Nurse 1 - General Ulcer Measurement Start: 10/26/22 08:41 Freq: Status: Active Protocol: Activity Type Activity Date Activity User E-sign Co-sign Detail Recorded Client Recorded Date Recorded By Document 10/26/22 08:41 KW [id number] 10/26/22 08:50 KW Document 11/16/22 08:42 KW Desktop 11/16/22 08:51 KW 10/26/22 11/16/22 08:41 08:42 Wound Center Nurse 1 #5- STERNUM cluster -Current Size (cm) - Length 0.7 0.6 -Current Size (cm) - Width 0.7 0.4 -Current Size (cm) - Depth 0.4 0.1 -Total Square Cm 0.49 0.24 -Tunneling No -Undermining/Tunneling No -Circular Undermining No -Exudate Amt Small -Exudate Type Serosanguineous -Wound Margin Distinct, Outline Attached -Granulation Quality [place] -Necrosis Amt Small (1-33%) -Necrotic Tissue Type Adherent Slough -Structure Exposed None/Limited to Skin Breakdown -Texture (Fiona-wound Skin Appearance) Assessed Assessed -Moisture (Fiona-wound Skin Appearance) Assessed Assessed -Color (Fiona-wound Skin Appearance) Assessed Assessed -Temperature (Fiona-wound Skin No Abnormality No Abnormality Appearance) (Pt Warm) (Pt Warm) -Ulcer Cleansing Rinsed/ Rinsed/ Irrigated with Irrigated with Saline Saline -Foul Odor after Cleansing No No -Anesthetic Used 5% Lidocaine 5% Lidocaine Gel Gel Lower Limb Edema Present NA WC - Nurse 2 - General Ulcer CM Notes Start: 10/26/22 08:41 Freq: Status: Active Protocol: Activity Type Activity Date Activity User E-sign Co-sign Detail Recorded Client Recorded Date Recorded By Document 10/26/22 09:05 [id number] 10/26/22 09:06 Document 11/02/22 09:33 [id number] 11/02/22 09:34 Document 11/16/22 09:15 Desktop 11/16/22 09:16 10/26/22 11/02/22 11/16/22 09:05 09:33 09:15 Wound Center Nurse 2 #5- STERNUM cluster -Time 09:06 09:33 -Correct Patient Yes Yes No -Correct Side, Site, Position Yes Yes No -Correct Procedure Yes Yes No -Procedure Performed Yes Yes No -Type of Procedure Debridement Debridement -Clinical Debridement Subcutaneous Subcutaneous -Tissue Removed Subcutaneous Subcutaneous -Post Debridement (cm) - Length 0.7 0.6 0 -Post Debridement (cm) - Width 0.7 0.7 0 -Post Debridement (cm) - Depth 0.3 0.2 0 -Total Square (Post) (cm) 0.49 0.42 0 -Area of Debridement (cm) - Length 0.7 0.6 0 -Area of Debridement (cm) - Width 0.7 0.7 0 -Total Square (Area) (cm) 0.49 0.42 0 -Tunneling No No -Undermining/Tunneling No No -Circular Undermining No No -Wound/Ulcer Outcome Not Healed Not Healed Healed- Epithelialized -Ulcer Cleansing Rinsed/ Rinsed/ Irrigated with Irrigated with Saline Saline -Foul Odor after Cleansing No No -Bioengineered Tissue No No -Bleeding Controlled with Pressure Pressure -Treatment Response Procedure Procedure Tolerated Well Tolerated Well -Offloading No No -Debridement - Subq, 1st 20sq cm Yes Yes Pain Scale: 0-10 Numeric Is Patient Pain Free? Yes Yes Yes - Nurse 3 - General Ulcer D/C NN Start: 10/26/22 08:41 Freq: Status: Active Protocol: Activity Type Activity Date Activity User E-sign Co-sign Detail Recorded Client Recorded Date Recorded By Document 10/26/22 09:07 [id number] 10/26/22 09:07 Document 11/02/22 09:34 [id number] 11/02/22 09:34 Document 11/16/22 09:16 Desktop 11/16/22 09:16 10/26/22 11/02/22 11/16/22 09:07 09:34 09:16 Wound Care Center Nurse 3 #5- STERNUM cluster -Ulcer Cleansing Rinsed/ Rinsed/ Rinsed/ Irrigated with Irrigated with Irrigated with Saline Saline Saline -Foul Odor after Cleansing No No No -Primary Dressing Applied Fibracol Plus Fibracol Plus Mepilex Border 4x4,Mepilex 4x4,Mepilex Border Border -Fibracol Plus 4x4 1 1 -Mepilex Border 1 1 1 Pain Scale: 0-10 Numeric Is Patient Pain Free? 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: CODE(S): L98.492 - Non-pressure chronic ulcer of skin of other sites with fat layer exposed (2) Type 2 diabetes mellitus: CODE(S): E11.9 - Type 2 diabetes mellitus without complications QUALIFIERS: Diabetes mellitus complication status: with kidney complications (3) History of coronary artery bypass graft: CODE(S): Z95.1 - Presence of aortocoronary bypass graft (4) ESRD (end stage renal disease) on dialysis: CODE(S): N18.6 - End stage renal disease; Z99.2 - Dependence on renal dialysis (5) Hypertension: CODE(S): I10 - Essential (primary) hypertension PLAN: Plan Patient evaluated at the wound healing center. His cardiothoracic surgeon office transferred his wound care to the wound center. He is healed today. The epithelial tissue is fragile. Will have him continue using [place] SAP daily after washing with soap and water for 3-4 more days to allow the ulcer to not be so fragile. After the 3-4 days, he should start to massage the scarring with lotion to help soften the scarring. Wound culture obtained on 07/06/22 which was positive for MSSA, Coag negative staph, and Klebsiella oxytoca. He has a PCN allergy he completed Bactrim and Doxycycline. Follow up as needed.
== END 2022-11-17 08:51 | disposition home or self-care (01) ==
LOC: WC 08:45
PROVIDERS: PCP Internal Medicine; Referring Provider Internal Medicine; Visit Provider Nurse Practitioner Family
DX: T81.31XA Disruption of external operation (surgical) wound, not elsewhere classified, initial encounter (principal); I13.2 Hypertensive heart and chronic kidney disease with heart failure and with stage 5 chronic kidney disease, or end stage renal disease; L98.492 Non-pressure chronic ulcer of skin of other sites with fat layer exposed; Z99.2 Dependence on renal dialysis; I50.9 Heart failure, unspecified; E11.22 Type 2 diabetes mellitus with diabetic chronic kidney disease; N18.6 End stage renal disease; I48.91 Unspecified atrial fibrillation; Z79.4 Long term (current) use of insulin; I25.10 Atherosclerotic heart disease of native coronary artery without angina pectoris; Y83.2 Surgical operation with anastomosis, bypass or graft as the cause of abnormal reaction of the patient, or of later complication, without mention of misadventure at the time of the procedure; I25.2 Old myocardial infarction; Z79.82 Long term (current) use of aspirin; Z79.01 Long term (current) use of 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; Z79.899 Other long term (current) drug therapy
CPT/HCPCS: 11042; 99213; G0463

== ENCOUNTER 2022-11-19 08:37 | Emergency (ER) | payer MEDICARE, SELFPAY ==
[2022-11-19 08:38] VITALS: BP 142/70; PULSE 88; RESP 18; TEMP 37.1; O2SAT 100; BMI 45.6
--- NOTE | 2022-11-19 09:29 | EDS_ITS ---
HPI History of Present Illness Chief Complaint: Weakness Informant: patient Narrative Narrative: Ends with generalized weakness that is improving. Patient has had some diarrhea that started about a week ago. He was started on Colestid and is doing better with that. He is eating and drinking fine. No fevers or chills. He states he got up late this morning. He was supposed to be at dialysis at 7 but he overslept by about 2-1/2 or so hours. He normally has low blood pressure and weakness in the morning. He takes his midodrine when he wakes up. He did not get this for about 2-1/2 hours later. He did finally take it. He is feeling better now. He called dialysis to see if he could get in. They told him to come to the emergency department to get dialyzed. Patient does not feel completely has normal but he is almost back to normal after taking his midodrine. 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 Colonization status Congestive heart failure (CHF) Coronary artery disease COVID CPAP (continuous positive airway pressure) dependence Delayed wound healing Depression Diabetes mellitus type 2 in obese Dialysis catheter clot or failure Diastolic CHF, acute Dietary restriction Dupuytrens contracture DVT (deep venous thrombosis) Edema of left lower leg due to peripheral venous insufficiency End stage renal disease Equinus contracture of left ankle ESRD (end stage renal disease) on dialysis ESRD (end stage renal disease) on dialysis Former smoker Gastric reflux Hammer toe of left foot Hemodialysis patient High cholesterol History of DVT of lower extremity History of edema History of IBS History of pain when walking History of renal disease History of stress test Hx of echocardiogram Hypertension Insulin dependent diabetes mellitus Loss of consciousness Loss of hearing Malnutrition Morbid obesity NSTEMI (non-ST elevated myocardial infarction) Other specified peripheral vascular diseases Pressure ulcer Problem with dialysis access Pulmonary hypertension Renal failure, chronic Shortness of breath on exertion Spitting suture Syncope Transfusion (red blood cell) associated hemochromatosis Trigger finger Type 2 diabetes mellitus Type 2 diabetes mellitus with diabetic polyneuropathy Ulcer of left lower extremity with fat layer exposed Wears glasses Home Medications ascorbic acid (vitamin C) 1,000 mg tablet (Vitamin C) 1,000 mg PO DAILY suppliment 12/02/16 [History Last Taken 01/05/22] buspirone 10 mg tablet 10 mg PO BID depression 12/02/16 [History Last Taken 01/05/22] calcium acetate(phosphat bind) 667 mg capsule 1,334 - 2,001 mg PO TIDCM supplement 03/07/21 [History Last Taken 01/05/22] cinnamon bark 500 mg capsule 500 mg PO DAILY supplement 12/23/21 [History Last Taken 01/05/22] insulin NPH isoph U-100 human 100 unit/mL (3 mL) subcutaneous pen (Novolin N FlexPen) 5 unit subcut DAILY dm 12/23/21 [History Last Taken 01/06/22] pyridoxine (vitamin B6) 50 mg tablet (Vitamin B-6) 50 mg PO DAILY 12/23/21 [History Last Taken 01/05/22] aspirin 81 mg tablet,delayed release 81 mg PO BREAKFAST #30 tabs 12/27/21 [Rx Last Taken 01/05/22] nitroglycerin 0.4 mg sublingual tablet 0.4 mg sublingual Q5M PRN chest pain #25 tabs 12/30/21 [Rx Last Taken 01/06/22] insulin NPH isoph U-100 human 100 unit/mL (3 mL) subcutaneous pen (Novolin N FlexPen) 18 unit subcut QHS DM 01/06/22 [History Last Taken 01/05/22] isosorbide mononitrate 30 mg tablet,extended release 24 hr 30 mg PO DAILY HEART 01/06/22 [History Last Taken 01/05/22] pantoprazole 40 mg tablet,delayed release 40 mg PO DAILY GERD 01/06/22 [History Last Taken 01/05/22] amiodarone 200 mg tablet 200 mg PO DAILY 02/10/22 [History Last Taken Unknown] clopidogrel 75 mg tablet 75 mg PO DAILY 02/10/22 [History Last Taken Unknown] carvedilol 3.125 mg tablet 3.125 mg PO DAILY 05/09/22 [History Last Taken Unknown] nifedipine 90 mg tablet,extended release 24 hr 90 mg PO DAILY 05/09/22 [History Last Taken Unknown] warfarin 3 mg tablet 9 mg PO DAILY 05/09/22 [History Last Taken Unknown] doxycycline hyclate 100 mg capsule 100 mg PO BID 14 days #28 caps 07/11/22 [Rx Last Taken Unknown] atorvastatin 80 mg tablet (Lipitor) 80 mg PO DAILY 07/29/22 [History Last Taken Unknown] darbepoetin saji in polysorbat 40 mcg/0.4 mL in polysorbate injection syringe (Aranesp) 40 mcg subcut QWEEK 07/29/22 [History Last Taken Unknown] dicyclomine 20 mg tablet 20 mg PO TID 07/29/22 [History Last Taken Unknown] gabapentin 600 mg tablet (Neurontin) 600 mg PO BID 07/29/22 [History Last Taken Unknown] glucagon 1 mg injection kit 1 mg PRN PRN Hypoglycemia 07/29/22 [History Last Taken Unknown] midodrine 5 mg tablet 20 mg PO TID 07/29/22 [History Last Taken Unknown] simethicone 80 mg chewable tablet 80 mg PO Q6H 07/29/22 [History Last Taken Unknown] sucroferric oxyhydroxide 500 mg chewable tablet (Velphoro) 500 mg PO BID 07/29/22 [History Last Taken Unknown] venlafaxine 150 mg capsule,extended release 24 hr (Effexor XR) 150 mg PO DAILY 07/29/22 [History Last Taken Unknown] doxycycline monohydrate 100 mg capsule 100 mg PO BID #20 CAPSULES 11/19/22 [Rx Last Taken Unknown] Allergy/AdvReac Type Severity Reaction Status Date / Time cephalexin Allergy Hives Verified 11/19/22 08:40 Penicillins Allergy Hives Verified 11/19/22 08:40 Family History Mother Diabetes Heart disease Hypertension Surgical History History of arteriovenostomy for renal dialysis (~07/2020) History of carpal tunnel surgery of left wrist History of carpal tunnel surgery of right wrist History of colonoscopy History of quadruple bypass History of surgery History of tonsillectomy and adenoidectomy Social History housing: house Smoking Status: Former smoker alcohol intake: never ROS ROS ED ROS Narrative A complete review of systems was performed and is negative except as documented in the history of present illness. Some specific details below. Constitutional: No recent fevers or chills. No malaise. He did feel little weak this morning but that is not uncommon for him to feel this way in the morning. It is better now. EYE: No visual complaints or pain. ENT: No difficulty swallowing. No swelling. No pain. CV: No chest pain or palpitations. Respiratory: No dyspnea. No hemoptysis. No difficulty taking breaths. GI: Please see history of present illness. Moving diarrhea. Never saw any blood. Not having abdominal pain with this. Musculoskeletal: No recent trauma. No pains. Skin: No rash. Nondiaphoretic. Neuro: No weakness or numbness. Endocrine: No polyuria or polydipsia. EXAM Physical Exam Narrative Exam Narrative: CONSTITUTIONAL: Patient is nontoxic in appearance. The patient looks comfortable. HEENT: No notable trauma. Mucous membranes are moist. EYES: No conjunctival injection. No proptosis. CARDIOVASCULAR: Regular rate. Regular rhythm. No notable murmur. No JVD. RESPIRATORY: No respiratory distress. Breathing is unlabored. No wheezes. No rhonchi. No rales. No pain with a deep breath. Saturations are normal at 100% on room air showing no hypoxia. No clinical indication of fluid overload at this time on pulmonary exam. GASTROINTESTINAL: Not distended. Bowel sounds are normal but increased or decreased. No tenderness. No guarding. No rebound. No palpable mass. No bruit. GENITOURINARY: No tenderness over the bladder. No CVA tenderness. MUSCULOSKELETAL: Atraumatic. Tenderness. NEUROLOGICAL: Patient is alert and appropriate. No focal deficit noted. SKIN: No noted rashes. No diaphoresis. PSYCHIATRIC: Patient is calm. Mood is appropriate. Const Vital Signs: 11/19/22 08:38 11/19/22 08:48 11/19/22 10:38 Temperature 98.7 F Temperature Source Temporal Pulse Rate 88 64 Respiratory Rate 18 14 Respiratory Effort Normal Respiratory Pattern Normal Blood Pressure 142/70 H 143/78 H Blood Pressure Mean 94 99 Pulse Ox 100 98 Oxygen Delivery Method Room Air Room Air MDM MDM MDM Narrative Medical decision making narrative: CBC does come back with a high white count at 17.6. But he states he is not having fevers. He is much better now. He then tells me about a spot he has on his hand. He poked it with a scissors the other day and it is a little red. It looks like he had a small puncture or break in the skin between his index and middle finger on the right hand. Has local erythema and a little local swelling. But it is open. I would not suture it at this time. He has good motion except he has some stiffness of his middle finger. But he states that is chronic and longstanding due to either trigger finger or Dupuytren's contracture. That is not new or different. There is no lymphangitic streaking. Knavel's signs are negative. We will initiate antibiotic treatment with this. Patient's electrolytes show mildly low sodium. Potassium is rising but not dangerous yet at 5.5. We were able to call [facility] dialysis center. They can get him in for dialysis if we get him over there. As his symptoms are better, his labs do not show acute complications, he is not hypoxic or having any problems breathing or signs of fluid overload, we will get him for dialysis as planned. I will get h im on some antibiotics for that hand. He states he is going to follow-up with Dr. Escalante in [place] about that. Lab Data Attestation: I reviewed the patient's lab results. Labs: Laboratory Results - last 24 hr 11/19/22 09:20 WBC 17.6 H RBC 2.72 L Hgb 8.7 L Hct 27.2 L MCV 100.0 H MCH 32.0 MCHC 32.0 RDW Std Deviation 52.7 H RDW Coeff of Kassandra 14.5 Plt Count 247 MPV 10.6 Immature Gran % (Auto) 0.500 Neut % (Auto) 87.8 H Lymph % (Auto) 4.3 L [place] % (Auto) 6.8 Eos % (Auto) 0.5 Baso % (Auto) 0.1 Absolute Neuts (auto) 15.5 H Absolute Lymphs (auto) 0.76 L Nucleated RBC % 0 PT 25.5 H INR 2.3 Sodium 130 L Potassium 5.5 H Chloride 92 L Carbon Dioxide 23.0 Anion Gap 15 BUN 109 H* Creatinine 14.70 H* Estim Creat Clear Calc 5.11 Est GFR (MDRD) Af Amer 4 L Est GFR (MDRD) Non-Af 4 L BUN/Creatinine Ratio 7.4 L Glucose 145 H Calcium 8.2 L EKG Initial EKG: Comments: My independent interpretation of the patient's EKG shows a normal sinus rhythm with overall rate at 79. No acute ST elevation or depression. No ectopy. CA interval is at borderline long at 200 ms. QRS duration and QTc are normal. Discharge Plan Triage Chief Complaint: Weakness ED Provider: Abhishek Montero Dx/Rx/DC Orders Clinical Impression: Missed dialysis, Generalized weakness, Puncture wound of hand, right Instructions: ED Puncture Wound (General) Prescriptions: New doxycycline monohydrate 100 mg capsule 100 mg PO BID Qty: 20 0RF No Action carvedilol 3.125 mg tablet 3.125 mg PO DAILY nifedipine 90 mg tablet extended release 24hr 90 mg PO DAILY warfarin 3 mg tablet 9 mg PO DAILY ascorbic acid (vitamin C) [Vitamin C] 1,000 MG tablet 1,000 mg PO DAILY Patient Comments: vitamin buspirone 10 MG tablet 10 mg PO BID Patient Comments: anxiety calcium acetate(phosphat bind) 667 mg capsule 1,334 - 2,001 mg PO TIDCM Patient Comments: TAKE 1 CAPSULE DAILY pyridoxine (vitamin B6) [Vitamin B-6] 50 mg Tablet 50 mg PO DAILY Novolin N FlexPen 100 unit/mL (3 mL) insulin pen 5 unit SUBCUT DAILY Patient Comments: INJECT 5UNITS IN THE MORNING AND 18 UNITS SUBCUTANEOUSLY AT BEDTIME Rx Instructions: INJECT 5UNITS IN THE MORNING AND 18 UNITS SUBCUTANEOUSLY AT BEDTIME cinnamon bark 500 mg capsule 500 mg PO DAILY Patient Comments: 1 capsule by mouth as directed aspirin 81 mg Tablet,Delayed Release (Dr/Ec) 81 mg PO BREAKFAST Qty: 30 1RF nitroglycerin 0.4 mg tablet, sublingual 0.4 mg sublingual Q5M PRN (Reason: chest pain) Qty: 25 0RF Rx Instructions: do not exceed 3 doses per episode isosorbide mononitrate 30 mg Tablet Extended Release 24 Hr 30 mg PO DAILY pantoprazole 40 mg tablet,delayed release (DR/EC) 40 mg PO DAILY Novolin N FlexPen 100 unit/mL (3 mL) insulin pen 18 unit SUBCUT QHS Patient Comments: INJECT 4 UNITS IN THE MORNING AND 16 UNITS SUBCUTANEOUSLY AT BEDTIME Rx Instructions: INJECT 5UNITS IN THE MORNING AND 18 UNITS SUBCUTANEOUSLY AT BEDTIME amiodarone 200 mg Tablet 200 mg PO DAILY clopidogrel 75 mg tablet 75 mg PO DAILY Patient Comments: 1 tablet by mouth as directed glucagon 1 mg Kit 1 mg PRN PRN (Reason: Hypoglycemia) atorvastatin [Lipitor] 80 mg Tablet 80 mg PO DAILY gabapentin [Neurontin] 600 mg Tablet 600 mg PO BID Rx Instructions: for 180 days midodrine [ProAmatine] 5 mg Tablet 20 mg PO TID Rx Instructions: do not give last dose of day after 6PM or within 4 hrs of bedtime venlafaxine [Effexor XR] 150 mg Capsule,Extended Release 24hr 150 mg PO DAILY dicyclomine [Bentyl] 20 mg Tablet 20 mg PO TID simethicone [Mylicon] 80 mg Tablet,Chewable 80 mg PO Q6H Aranesp (in polysorbate) 40 mcg/0.4 mL Syringe 40 mcg SUBCUT QWEEK Velphoro 500 mg Tablet,Chewable 500 mg PO BID doxycycline hyclate 100 mg capsule 100 mg PO BID 14 Days Qty: 28 1RF Primary Care Provider: Yola Ng Referrals: Yola Ng MD [Primary Care Provider] - 3-5 Days Disposition Disposition: Home, Self Care Discharge Date/Time: 11/19/22 12:08
[2022-11-19 09:43] LABS: Absolute Lymphocyte Count 0.76 X10^3/uL (0.83-4.51); Absolute Neutrophil Count 15.5 X10^3/uL (2.0-7.7); Basophil# 0.02 X10^3/uL; Basophil% 0.1 % (0-1); Eosinophil# 0.08 X10^3/uL; Eosinophils% 0.5 % (0-5); Hematocrit 27.2 % (40-54); Hemoglobin 8.7 g/dL (13.0-16.5); Lymphocyte # 0.76 X10^3/ul (0.83-4.51); Lymphocyte % 4.3 % (19-41); Mean Platelet Vol. 10.6 fl (6.2-12.0); Monocyte% 6.8 % (0-10); NRBC Flagged by Analyzer 0 % (0-5); Neutrophil # 15.45 X10^3/uL (2.7-7.7); Neutrophil % 87.8 % (47-70); Platelet Count 247 K/mm3 (150-450); RBC Distribution Width CV 14.5 % (11.6-14.6); RBC Distribution Width SD 52.7 fl (35.1-43.9); Red Blood Count 2.72 M/mm3 (4.6-6.2); White Blood Count 17.6 K/mm3 (4.4-11.0)
[2022-11-19 09:48] LABS: International Normalized Ratio 2.3; Prothrombin Time (Protime)PT. 25.5 SECONDS (11.7-14.9)
[2022-11-19 09:54] LABS: Anion Gap 15 (5-15); BUN 109 mg/dL (7-18); BUN/Creat Ratio 7.4 RATIO (10-20); Calcium,Total 8.2 mg/dL (8.5-10.1); Chloride 92 mmol/L (98-107); EST Glomerular Filtration Rate 4 mL/min (>60); Est Glom Filt Rate - Afr Amer 4 mL/min (>60); Estimated Creatinine Clearance 5.11 ml/min; Glucose 145 mg/dL (74-106); Potassium 5.5 mmol/L (3.5-5.1); Sodium Level 130 mmol/L (136-145)
[2022-11-19 10:38] VITALS: BP 143/78; PULSE 64; RESP 14; O2SAT 98
--- NOTE | 2022-11-19 11:48 | ED.RN ---
[facility] called was on hold for 10min. then was hung up on. 2nd attempt. spoke to nurse they said they could get them in.
[2022-11-19] MEDS: Doxycycline 100 MG CAPSULE PO (12:03)
== END 2022-11-19 12:08 | disposition home or self-care (01) ==
PROVIDERS: Emergency Provider Emergency Medicine; PCP Internal Medicine; Visit Provider Emergency Medicine
DX: Z99.2 Dependence on renal dialysis (principal); I13.2 Hypertensive heart and chronic kidney disease with heart failure and with stage 5 chronic kidney disease, or end stage renal disease; I50.32 Chronic diastolic (congestive) heart failure; E11.22 Type 2 diabetes mellitus with diabetic chronic kidney disease; E11.42 Type 2 diabetes mellitus with diabetic polyneuropathy; N18.6 End stage renal disease; Z79.4 Long term (current) use of insulin; I95.9 Hypotension, unspecified; Z87.891 Personal history of nicotine dependence; S61.431A Puncture wound without foreign body of right hand, initial encounter; I25.10 Atherosclerotic heart disease of native coronary artery without angina pectoris; E78.00 Pure hypercholesterolemia, unspecified; R53.1 Weakness; Z79.899 Other long term (current) drug therapy; Z99.89 Dependence on other enabling machines and devices; I25.2 Old myocardial infarction; I5A Non-ischemic myocardial injury (non-traumatic); F32.A Depression, unspecified; Z79.82 Long term (current) use of aspirin; K21.9 Gastro-esophageal reflux disease without esophagitis; Z79.02 Long term (current) use of antithrombotics/antiplatelets; Z79.01 Long term (current) use of 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; Z86.718 Personal history of other venous thrombosis and embolism; W27.2XXA Contact with scissors, initial encounter
CPT/HCPCS: 80048; 85025; 85610; 93005; 99284

== ENCOUNTER 2022-11-21 07:09 | Day surgery (SDC) | payer MEDICARE, SELFPAY ==
[2022-11-18 09:32] VITALS: BMI 45.7
[2022-11-21 07:19] LABS: INR Fingerstick 2.5; Prothrombin Time Fingerstick 27.4 SEC (11.7-14.9)
--- NOTE | 2022-11-21 07:45 | PCM.HP.BLA ---
History and Physical Date of Admission: 11/21/22 Visit Reasons: Decreased AFT Chief Complaint: decreased flows Director Toxicology Required: No Is patient in pain?: No Allergies cephalexin Allergy (Verified 10/27/22 13:21) HivesPenicillins Allergy (Verified 10/27/22 13:21) Hives Medications ascorbic acid (vitamin C) 1,000 mg tablet (Vitamin C) 1,000 mg PO DAILY suppliment 12/02/16 [History Confirmed 05/24/22] buspirone 10 mg tablet 10 mg PO BID depression 12/02/16 [History Confirmed 05/24/22] calcium acetate(phosphat bind) 667 mg capsule 1,334 - 2,001 mg PO TIDCM supplement 03/07/21 [History Confirmed 05/24/22] cinnamon bark 500 mg capsule 500 mg PO DAILY supplement 12/23/21 [History Confirmed 05/24/22] insulin NPH isoph U-100 human 100 unit/mL (3 mL) subcutaneous pen (Novolin N FlexPen) 5 unit subcut DAILY dm 12/23/21 [History Confirmed 05/24/22] pyridoxine (vitamin B6) 50 mg tablet (Vitamin B-6) 50 mg PO DAILY 12/23/21 [History Confirmed 05/24/22] aspirin 81 mg tablet,delayed release 81 mg PO BREAKFAST #30 tabs 12/27/21 [Rx Confirmed 05/24/22] nitroglycerin 0.4 mg sublingual tablet 0.4 mg sublingual Q5M PRN chest pain #25 tabs 12/30/21 [Rx Confirmed 05/24/22] insulin NPH isoph U-100 human 100 unit/mL (3 mL) subcutaneous pen (Novolin N FlexPen) 18 unit subcut QHS DM 01/06/22 [History Confirmed 05/24/22] isosorbide mononitrate 30 mg tablet,extended release 24 hr 30 mg PO DAILY HEART 01/06/22 [History Confirmed 05/24/22] pantoprazole 40 mg tablet,delayed release 40 mg PO DAILY GERD 01/06/22 [History Confirmed 05/24/22] amiodarone 200 mg tablet 200 mg PO DAILY 02/10/22 [History Confirmed 05/24/22] clopidogrel 75 mg tablet 75 mg PO DAILY 02/10/22 [History Confirmed 05/24/22] carvedilol 3.125 mg tablet 3.125 mg PO DAILY 05/09/22 [History Confirmed 05/24/22] nifedipine 90 mg tablet,extended release 24 hr 90 mg PO DAILY 05/09/22 [History Confirmed 05/24/22] warfarin 3 mg tablet 9 mg PO DAILY 05/09/22 [History Confirmed 05/24/22] doxycycline hyclate 100 mg capsule 100 mg PO BID 14 days #28 caps 07/11/22 [Rx] atorvastatin 80 mg tablet (Lipitor) 80 mg PO DAILY 07/29/22 [History Confirmed 07/29/22] darbepoetin saji in polysorbat 40 mcg/0.4 mL in polysorbate injection syringe (Aranesp) 40 mcg subcut QWEEK 07/29/22 [History Confirmed 07/29/22] dicyclomine 20 mg tablet 20 mg PO TID 07/29/22 [History Confirmed 07/29/22] gabapentin 600 mg tablet (Neurontin) 600 mg PO BID 07/29/22 [History Confirmed 07/29/22] glucagon 1 mg injection kit 1 mg PRN PRN Hypoglycemia 07/29/22 [History Confirmed 07/29/22] midodrine 5 mg tablet 20 mg PO TID 07/29/22 [History Confirmed 07/29/22] simethicone 80 mg chewable tablet 80 mg PO Q6H 07/29/22 [History Confirmed 07/29/22] sucroferric oxyhydroxide 500 mg chewable tablet (Velphoro) 500 mg PO BID 07/29/22 [History Confirmed 07/29/22] venlafaxine 150 mg capsule,extended release 24 hr (Effexor XR) 150 mg PO DAILY 07/29/22 [History Confirmed 07/29/22] [facility] Medical History (HFpEF) heart failure with preserved ejection fraction Acute exacerbation of CHF (congestive heart failure) [id number] kidney injury Anemia Anxiety Atrial fibrillation [facility] Cardiology follow-up encounter Chest pain CHF (congestive heart failure) Chronic kidney failure Chronic renal failure, 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 Colonization status Congestive heart failure (CHF) Coronary artery disease COVID CPAP (continuous positive airway pressure) dependence Delayed wound healing Depression Diabetes mellitus type 2 in obese Dialysis catheter clot or failure Diastolic CHF, acute Dietary restriction Dupuytrens contracture DVT (deep venous thrombosis) Edema of left lower leg due to peripheral venous insufficiency End stage renal disease Equinus contracture of left ankle ESRD (end stage renal disease) on dialysis ESRD (end stage renal disease) on dialysis Former smoker Gastric reflux Hammer toe of left foot Hemodialysis patient High cholesterol History of DVT of lower extremity History of edema History of IBS History of pain when walking History of renal disease History of stress test Hx of echocardiogram Hypertension Insulin dependent diabetes mellitus Loss of consciousness Loss of hearing Malnutrition Morbid obesity NSTEMI (non-ST elevated myocardial infarction) Other specified peripheral vascular diseases Pressure ulcer Problem with dialysis access Pulmonary hypertension Renal failure, chronic Shortness of breath on exertion Spitting suture Syncope Transfusion (red blood cell) associated hemochromatosis Trigger finger Type 2 diabetes mellitus Type 2 diabetes mellitus with diabetic polyneuropathy Ulcer of left lower extremity with fat layer exposed Wears glasses Surgical History History of arteriovenostomy for renal dialysis (~07/2020) History of carpal tunnel surgery of left wrist History of carpal tunnel surgery of right wrist History of colonoscopy History of quadruple bypass History of surgery History of tonsillectomy and adenoidectomy Family History Mother Diabetes Heart disease Hypertension Social History housing: house Smoking Status: Former smoker alcohol intake: never HPI HPI HPI: Patient is a 62 y/o M I am seeing for decreased arterial flows. Patient denies any post-treatment bleeding or fistula pain. Patient has a right forearm brachial to cephalic PTFE graft arteriovenous fistula. Patient had a revision of the fistula with a PTFE graft placed by Dr. Deal on 09/09/21 due to a severely calcified radial artery. Patient's most recent fistulogram was performed on 05/25/[address] Deal. Findings included inflow PTFE graft to fistula venous and anastomotic stenosis and outflow proximal right forearm venous stenosis. A 6 x 4 conquest angioplasty was performed. Patient dialyzes on T, TH and Sat. Patient is maintained on Coumadin. Dr. Acharya is his director of programming. Exam Extrem Other: Right forearm AV fistula- good pulse, diminished thrill and whistling bruit. Assessment and Plan Assessment and Plan (1) Problem with dialysis access: Status: Acute Qualifiers: Encounter type: initial encounter Qualified Code(s): T82.898A - Other specified complication of vascular prosthetic devices, implants and grafts, initial encounter Plan: Patient notes he will be moving to [place] on November 19. Dr. Deal will be out of the office until the first week of November. He unfortunately does not have any openings until the first week of November. I am recommending the patient have a fistulogram. Our office will contact the dialysis center to update them as he is not willing to wait until the first week of November to have the procedure completed. Assessment & Plan Assessment/Plan (1) Problem with dialysis access: QUALIFIERS: Encounter type: initial encounter Qualified Code(s): T82.898A - Other specified complication of vascular prosthetic devices, implants and grafts, initial encounter PLAN: Patient is noted to have a slight fever of 99.7. He is completely asymptomatic with it. There are no clinical evidence of infection. We will proceed with a right extremity fistulogram with possible endovascular intervention. If he becomes symptomatic then we will need to pursue that for its own value. Willem Deal M.D., F.A.C.S.
--- NOTE | 2022-11-21 08:44 | OP.PCM_ITS ---
Report of Operation Date of Procedure: 11/21/22 Pre-Operative Diagnosis: Difficult with accessing right forearm arteriovenous h emodialysis fistula Post-Operative Diagnosis: Proximal fistula high-grade venous stenosis. Moderate PTFE graft inflow stenosis at the brachial artery Surgery/Procedure Performed:: Right upper extremity fistulogram with 6 x 2 conquest angioplasty Description of Surgical Findings:: Timeout informed consent was obtained. 62-year-old gentleman was taken to the special procedures lab. He is on chronic Coumadin. INR was 2.5. He was left at that value. No IV sedation provided as the patient was transporting himself. The right upper sternal sterilely prepped and draped. Ultrasound was used to identify the cephalic vein closer to the antecubital space but separate from the PTFE graft that was also located in that position. The graft goes from the brachial artery down the forearm to the cephalic vein in the distal forearm and then the fistula is accessed through the cephalic vein of the forearm. 2% lid ocaine was used as a local anesthetic. The cephalic vein in the proximal forearm identified local was instilled micropuncture needle inserted retrograde with flow micropuncture wire 6 [place] short sheath dilator using a 035 Glidewire a 4 [place] glide cath was placed through the entire length of the autologous portion of the fistula and then also open to the feeding PTFE graft to up to the brachial artery. Using Isovue contrast fistulogram was obtained. This demonstrated moderate stenosis of the arterial anastomosis proximal graft area and then high-grade 90% or greater of the very proximal portion of the venous portion of the fistula at the wrist area where the PTFE graft was anastomosed to the cephalic vein. A Glidewire was advanced. A 6 x 2 conquest balloon was used to perform balloon angioplasty of the arterial aspect miotic area 3 minutes at a pressure of 35 chula. The balloon was then withdrawn and several different insufflations performed at the venous component. Follow-up fistulogram demonstrated wide flow. Then completed the fistulogram of the upper arm and central venous area. No apparent complications. Blood loss was minimal. Sheath dilator removed and U suture of 4-0 nylon was placed. There was a good palpable thrill in the fistula. No apparent complication. Images demonstrate a right forearm PTFE graft anastomosed to the brachial artery and then extending distally to the wrist where the graft then is anastomosed to the cephalic vein at the wrist and the cephalic vein then functions as the fistula in the forearm. There was moderate arterial stenosis at the PTFE brachial artery anastomosis which was resolved completely with angioplasty. There was high-grade venous stenosis in the distal forearm at the wrist level where the PTFE graft is anastomosed to the cephalic vein. There was again however complete resolution of this with angioplasty. There was good upper arm and central venous outflow. It is anticipated that if the patient has recurrent stenosis consideration for possible utilization of a drug-coated balloon of the venous portion of the fistula stenosis at the wrist area would be a consideration. Willem Deal M.D., F.A.C.S. Surgeon: Willem Deal Type of Anesthesia: Local
== END 2022-11-21 09:45 | disposition home or self-care (01) ==
LOC: CLSP 07:11
PROVIDERS: PCP Internal Medicine; Referring Provider Surgery; Visit Provider Surgery
DX: T82.898A Other specified complication of vascular prosthetic devices, implants and grafts, initial encounter (principal); I13.2 Hypertensive heart and chronic kidney disease with heart failure and with stage 5 chronic kidney disease, or end stage renal disease; I50.32 Chronic diastolic (congestive) heart failure; E11.42 Type 2 diabetes mellitus with diabetic polyneuropathy; E11.22 Type 2 diabetes mellitus with diabetic chronic kidney disease; E11.59 Type 2 diabetes mellitus with other circulatory complications; N18.6 End stage renal disease; I70.208 Unspecified atherosclerosis of native arteries of extremities, other extremity; Z79.4 Long term (current) use of insulin; I87.2 Venous insufficiency (chronic) (peripheral); I25.10 Atherosclerotic heart disease of native coronary artery without angina pectoris; Z87.891 Personal history of nicotine dependence; E78.00 Pure hypercholesterolemia, unspecified; Z79.82 Long term (current) use of aspirin; Z86.718 Personal history of other venous thrombosis and embolism
CPT/HCPCS: 36416; 36902; 76937; 85610; Q9967; C1769

== ENCOUNTER 2023-01-29 12:57 | Emergency (ER) | payer MEDICARE, SELFPAY ==
[2023-01-29 12:58] VITALS: BP 191/78; PULSE 84; RESP 18; TEMP 36.6; O2SAT 100; BMI 43.3
--- NOTE | 2023-01-29 13:13 | EDS_ITS ---
HPI <ELVIS Melara - Last Filed: 01/29/23 15:36> History of Present Illness Chief Complaint: Anxiety Narrative Narrative: 62-year-old male has had a long history of anxiety and depression. He states he has been on Effexor for about 5 years and it seems not to be working over the last couple weeks. He became very anxious over the last 3 days. He states he is stressed because he lives on disability and his furnace is not working. He is using a heater in his bedroom and bathroom. He felt very anxious today and did not want to wait to talk to his primary care doctor this week. He said he feels depressed but not suicidal or homicidal. He also would like evaluated for a wound on his right foot he noticed 3 days ago. He denies trauma. He has been putting antibiotic ointment and a bandage on it. He is diabetic. 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 Colonization status Congestive heart failure (CHF) Coronary artery disease COVID CPAP (continuous positive airway pressure) dependence Delayed wound healing Depression Diabetes mellitus type 2 in obese Dialysis catheter clot or failure Diastolic CHF, acute Dietary restriction Dupuytrens contracture DVT (deep venous thrombosis) Edema of left lower leg due to peripheral venous insufficiency End stage renal disease Equinus contracture of left ankle ESRD (end stage renal disease) on dialysis ESRD (end stage renal disease) on dialysis Former smoker Gastric reflux Hammer toe of left foot Hemodialysis patient High cholesterol History of DVT of lower extremity History of edema History of IBS History of pain when walking History of renal disease History of stress test Hx of echocardiogram Hypertension Insulin dependent diabetes mellitus Loss of consciousness Loss of hearing Malnutrition Morbid obesity NSTEMI (non-ST elevated myocardial infarction) Other specified peripheral vascular diseases Pressure ulcer Problem with dialysis access Pulmonary hypertension Renal failure, chronic Shortness of breath on exertion Spitting suture Syncope Transfusion (red blood cell) associated hemochromatosis Trigger finger Type 2 diabetes mellitus Type 2 diabetes mellitus with diabetic polyneuropathy Ulcer of left lower extremity with fat layer exposed Wears glasses Home Medications ascorbic acid (vitamin C) 1,000 mg tablet (Vitamin C) 1,000 mg PO DAILY suppliment 12/02/16 [History Last Taken 01/05/22] buspirone 10 mg tablet 10 mg PO BID depression 12/02/16 [History Last Taken 01/05/22] calcium acetate(phosphat bind) 667 mg capsule 1,334 - 2,001 mg PO TIDCM supplement 03/07/21 [History Last Taken 01/05/22] cinnamon bark 500 mg capsule 500 mg PO DAILY supplement 12/23/21 [History Last Taken 01/05/22] insulin NPH isoph U-100 human 100 unit/mL (3 mL) subcutaneous pen (Novolin N FlexPen) 5 unit subcut DAILY dm 12/23/21 [History Last Taken 01/06/22] pyridoxine (vitamin B6) 50 mg tablet (Vitamin B-6) 50 mg PO DAILY 12/23/21 [History Last Taken 01/05/22] aspirin 81 mg tablet,delayed release 81 mg PO BREAKFAST #30 tabs 12/27/21 [Rx Last Taken 01/05/22] nitroglycerin 0.4 mg sublingual tablet 0.4 mg sublingual Q5M PRN chest pain #25 tabs 12/30/21 [Rx Last Taken 01/06/22] insulin NPH isoph U-100 human 100 unit/mL (3 mL) subcutaneous pen (Novolin N FlexPen) 18 unit subcut QHS DM 01/06/22 [History Last Taken 01/05/22] isosorbide mononitrate 30 mg tablet,extended release 24 hr 30 mg PO DAILY HEART 01/06/22 [History Last Taken 01/05/22] pantoprazole 40 mg tablet,delayed release 40 mg PO DAILY GERD 01/06/22 [History Last Taken 01/05/22] amiodarone 200 mg tablet 200 mg PO DAILY 02/10/22 [History Last Taken Unknown] clopidogrel 75 mg tablet 75 mg PO DAILY 02/10/22 [History Last Taken Unknown] carvedilol 3.125 mg tablet 3.125 mg PO DAILY 05/09/22 [History Last Taken Unknown] nifedipine 90 mg tablet,extended release 24 hr 90 mg PO DAILY 05/09/22 [History Last Taken Unknown] atorvastatin 80 mg tablet (Lipitor) 80 mg PO DAILY 07/29/22 [History Last Taken Unknown] dicyclomine 20 mg tablet 20 mg PO TID 07/29/22 [History Last Taken Unknown] glucagon 1 mg injection kit 1 mg PRN PRN Hypoglycemia 07/29/22 [History Last Taken Unknown] midodrine 5 mg tablet 20 mg PO TID 07/29/22 [History Last Taken 11/21/22] simethicone 80 mg chewable tablet 80 mg PO Q6H 07/29/22 [History Last Taken Unknown] venlafaxine 150 mg capsule,extended release 24 hr (Effexor XR) 150 mg PO DAILY 07/29/22 [History Last Taken Unknown] hydroxyzine pamoate 25 mg capsule (Vistaril) 25 mg PO TID PRN anxiety 3 days #9 caps 01/29/23 [Rx Last Taken Unknown] Allergy/AdvReac Type Severity Reaction Status Date / Time cephalexin Allergy Hives Verified 01/29/23 13:40 Penicillins Allergy Hives Verified 01/29/23 13:40 Family History Mother Diabetes Heart disease Hypertension Surgical History History of arteriovenostomy for renal dialysis (~07/2020) History of carpal tunnel surgery of left wrist History of carpal tunnel surgery of right wrist History of colonoscopy History of quadruple bypass History of surgery History of tonsillectomy and adenoidectomy Social History housing: house Smoking Status: Former smoker alcohol intake: never ROS <ELVIS Melara - Last Filed: 01/29/23 15:36> ROS ED ROS Narrative Constitutional: Negative for fever, chills, malaise. Neuro: Negative for motor/sensory dysfunction. Skin: Positive for wound. Musc: Negative for joint pain, swelling, trauma. EXAM <ELVIS Melara - Last Filed: 01/29/23 15:36> Physical Exam Narrative Exam Narrative: CONST: Patient sitting in no acute distress. EYES: Normal inspection. NECK: Normal inspection. RESP: No respiratory distress, CTAB. CVS: Regular rate and rhythm, no murmur, no gallop. SKIN: 3x3 cm superficial wound on right dorsal foot. EXTREMITIES: Normal appearance, no pedal edema. NEURO: Oriented x4. PSYCH: Normal affect. Pleasant. Const Vital Signs: 01/29/23 15:39 Respiratory Rate 14 <Shimon Prieto MD - Last Filed: 01/30/23 14:56> Physical Exam Const Vital Signs: 01/29/23 15:39 Respiratory Rate 14 MDM <ELVIS Melara - Last Filed: 01/29/23 15:36> [facility] Narrative Medical decision making narrative: Patient presents with worsening anxiety and depression over the last few days. He is on Effexor with a longstanding history of this. He is not suicidal or homicidal. He cannot pinpoint a reason why he is feeling more anxious. He requested to speak with the director of social media marketing so I consulted crisis. She had a long discussion with him and provided resources to the counseling center and recommended he follow-up with his primary care tomorrow. She do not think he needs inpatient management. Patient trialed Vistaril here and was prescribed short course of this for home. He was comfortable with this plan and knows how to reach out to the counseling center if anything changes. He also has a scrape on his right dorsal foot that does not have any signs of infection. It was cleansed and dressed with bacitracin and a bandage and he was instructed to follow-up with his pesticide control inspector. <Shimon Prieto MD - Last Filed: 01/30/23 14:56> [facility] Narrative Medical decision making narrative: Patient presents with worsening anxiety and depression over the last few days. He is on Effexor with a longstanding history of this. He is not suicidal or homicidal. He cannot pinpoint a reason why he is feeling more anxious. He requested to speak with the director of social media marketing so I consulted crisis. She had a long discussion with him and provided resources to the counseling center and recommended he follow-up with his primary care tomorrow. She do not think he needs inpatient management. Patient trialed Vistaril here and was prescribed short course of this for home. He was comfortable with this plan and knows how to reach out to the counseling center if anything changes. He also has a scrape on his right dorsal foot that does not have any signs of infection. It was cleansed and dressed with bacitracin and a bandage and he was instructed to follow-up with his pesticide control inspector. Dr. Prieto: I have personally performed a face to face assessment of the patient and have reviewed the SURJIT Note. I performed a substantive portion of the visit including all aspects of the following. My cheng findings include: History is anxiety, open wound right foot, dorsum. Exam is afebrile. Vital signs noted. Nontoxic-appearing. Positive skin avulsion on dorsum of right foot. Palpable dorsalis pedis pulse, no erythema or purulent drainage. Regular rate and rhythm. Lungs clear to auscultation bilaterally. Abdomen soft and nontender with normal active bowel sounds. Mild anxiety. No suicidal ideation or active hallucination. No internal stimulation. Medical Decision Making: I do not feel antibiotics are indicated and agree with DANTE. Regarding anxiety, no suicidal ideation or homicidal ideation, no hallucinations. Patient seen by counseling center. Discharged with prescrip tion for Vistaril, follow-up with counseling center and primary care provider. Discharge. Other additions or changes: [None] History & Record Review Discussion w/independent historian: Patient Additional record(s) reviewed:: Prior ED visit Discharge Plan Triage Chief Complaint: Anxiety ED Midlevel Provider: Fatimah Whaley ED Provider: Shimon Prieto Dx/Rx/DC Orders Clinical Impression: Wound of right foot, Anxiety, Depression Instructions: Anxiety Disorders Tx Prescriptions: New hydroxyzine pamoate [Vistaril] 25 mg capsule 25 mg PO TID PRN (Reason: anxiety) 3 Days Qty: 9 0RF No Action carvedilol 3.125 mg tablet 3.125 mg PO DAILY nifedipine 90 mg tablet extended release 24hr 90 mg PO DAILY ascorbic acid (vitamin C) [Vitamin C] 1,000 MG tablet 1,000 mg PO DAILY Patient Comments: vitamin buspirone 10 MG tablet 10 mg PO BID Patient Comments: anxiety calcium acetate(phosphat bind) 667 mg capsule 1,334 - 2,001 mg PO TIDCM Patient Comments: TAKE 1 CAPSULE DAILY pyridoxine (vitamin B6) [Vitamin B-6] 50 mg Tablet 50 mg PO DAILY Novolin N FlexPen 100 unit/mL (3 mL) insulin pen 5 unit SUBCUT DAILY Patient Comments: INJECT 5UNITS IN THE MORNING AND 18 UNITS SUBCUTANEOUSLY AT BEDTIME Rx Instructions: INJECT 5UNITS IN THE MORNING AND 18 UNITS SUBCUTANEOUSLY AT BEDTIME cinnamon bark 500 mg capsule 500 mg PO DAILY Patient Comments: 1 capsule by mouth as directed aspirin 81 mg Tablet,Delayed Release (Dr/Ec) 81 mg PO BREAKFAST Qty: 30 1RF nitroglycerin 0.4 mg tablet, sublingual 0.4 mg sublingual Q5M PRN (Reason: chest pain) Qty: 25 0RF Rx Instructions: do not exceed 3 doses per episode isosorbide mononitrate 30 mg Tablet Extended Release 24 Hr 30 mg PO DAILY pantoprazole 40 mg tablet,delayed release (DR/EC) 40 mg PO DAILY Novolin N FlexPen 100 unit/mL (3 mL) insulin pen 18 unit SUBCUT QHS Patient Comments: INJECT 4 UNITS IN THE MORNING AND 16 UNITS SUBCUTANEOUSLY AT BEDTIME Rx Instructions: INJECT 5UNITS IN THE MORNING AND 18 UNITS SUBCUTANEOUSLY AT BEDTIME amiodarone 200 mg Tablet 200 mg PO DAILY clopidogrel 75 mg tablet 75 mg PO DAILY Patient Comments: 1 tablet by mouth as directed glucagon 1 mg Kit 1 mg PRN PRN (Reason: Hypoglycemia) atorvastatin [Lipitor] 80 mg Tablet 80 mg PO DAILY midodrine [ProAmatine] 5 mg Tablet 20 mg PO TID Rx Instructions: do not give last dose of day after 6PM or within 4 hrs of bedtime venlafaxine [Effexor XR] 150 mg Capsule,Extended Release 24hr 150 mg PO DAILY dicyclomine [Bentyl] 20 mg Tablet 20 mg PO TID simethicone [Mylicon] 80 mg Tablet,Chewable 80 mg PO Q6H Primary Care Provider: Yola Ng Referrals: Yola Ng MD [Primary Care Provider] - Activity Restrictions/Additional Instructions: Please follow-up with your PCP this week regarding her anxiety and depression or you can reach out to the counseling center. For your right foot wound please see your pesticide control inspector. Disposition Disposition: Home, Self Care Discharge Date/Time: 01/29/23 15:40
[2023-01-29] MEDS: hydrOXYzine PAM 25 MG Capsule PO (15:36)
[2023-01-29 15:39] VITALS: RESP 14
== END 2023-01-29 15:40 | disposition home or self-care (01) ==
PROVIDERS: Emergency Provider Emergency Medicine; PCP Internal Medicine; Visit Provider Emergency Medicine
DX: F41.9 Anxiety disorder, unspecified (principal); I13.2 Hypertensive heart and chronic kidney disease with heart failure and with stage 5 chronic kidney disease, or end stage renal disease; E11.51 Type 2 diabetes mellitus with diabetic peripheral angiopathy without gangrene; I50.32 Chronic diastolic (congestive) heart failure; E11.22 Type 2 diabetes mellitus with diabetic chronic kidney disease; E11.42 Type 2 diabetes mellitus with diabetic polyneuropathy; N18.6 End stage renal disease; Z79.4 Long term (current) use of insulin; E78.00 Pure hypercholesterolemia, unspecified; F32.A Depression, unspecified; Z87.891 Personal history of nicotine dependence; I25.10 Atherosclerotic heart disease of native coronary artery without angina pectoris; Z79.899 Other long term (current) drug therapy; I25.2 Old myocardial infarction; I5A Non-ischemic myocardial injury (non-traumatic); Z99.89 Dependence on other enabling machines and devices; Z79.82 Long term (current) use of aspirin; K21.9 Gastro-esophageal reflux disease without esophagitis; Z79.02 Long term (current) use of antithrombotics/antiplatelets; S91.301A Unspecified open wound, right foot, initial encounter
CPT/HCPCS: 99282

== ENCOUNTER 2023-02-04 09:17 | Emergency (ER) | payer MEDICARE, SELFPAY ==
[2023-02-04 09:19] VITALS: BP 158/70; PULSE 81; RESP 15; TEMP 36.7; O2SAT 100; BMI 43.2
--- NOTE | 2023-02-04 09:48 | EKG12_ITS ---
Test Reason : cp Blood Pressure : / mmHG Vent. Rate : 074 BPM Atrial Rate : 000 BPM P-R Int : 000 ms QRS Dur : 088 ms QT Int : 442 ms P-R-T Axes : 000 040 082 degrees QTc Int : 490 ms Normal sinus rhythm Nonspecific T wave abnormality Abnormal ECG Confirmed by DIANA HARVEY, LAURA ([id number]), commercial production editor KARRI AMIN ([id number]) on 02/06/2023 1:16:25 PM Referred By: Confirmed By:LAURA ORTIZ MD
--- NOTE | 2023-02-04 09:48 | RAD_ITS ---
EXAM: XR CHEST, 1 VIEW CLINICAL INDICATION: chest pain TECHNIQUE: Frontal view of the chest. COMPARISON: XR Chest dated 03/09/2022 FINDINGS: LUNGS AND PLEURAL SPACES: Normal. No consolidation or edema. No pneumothorax. No effusion. HEART: Heart is normal size. Left atrial appendage clip remains in place. MEDIASTINUM: No mediastinal or hilar mass. BONES/JOINTS: Sternotomy wires are present. RAD/Chest 1 View (Portable) IMPRESSION: No acute cardiopulmonary abnormality. No interval change. Electronically Signed: Bayron Hayes MD at 10:51 EST ,
--- NOTE | 2023-02-04 09:54 | ED.VIS.CHEST ---
HPI History of Present Illness Chief Complaint: Chest Pain Informant: patient Onset/Context/Timing Onset: Hours (1.5) Activity at onset: sudden, onset and activity on onset (Resting during dialysis session) Timing: Continuous Quality: Positive for Tightness Location: Substernal (Without radiation) Current Severity: 4/10 Maximum Severity: 5/10 Worsened By: Nothing Relieved By: Nothing Associated Symptoms: Negative for Nausea, Vomiting, Diaphoresis, Dyspnea, Cough, Lightheadedness or Palpitations Narrative Narrative: Patient presents with chest discomfort that started during dialysis, he had a little over an hours worth of his session today, which was discontinued upon him telling staff that he had chest discomfort. He states this is similar symptoms but not as bad to the chest discomfort that he had last year when he required a quadruple bypass. He states the pain is not severe and he has no associated symptoms, but that is his concern. States he is on warfarin due to a history of A-fib even though he thinks during his surgery they fixed my A-fib. [facility] Medical History (HFpEF) heart failure with preserved ejection fraction Acute exacerbation of CHF (congestive heart failure) [id number] kidney injury Anemia Anxiety Atrial fibrillation 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 Colonization status Congestive heart failure (CHF) Coronary artery disease COVID CPAP (continuous positive airway pressure) dependence Delayed wound healing Depression Diabetes mellitus type 2 in obese Dialysis catheter clot or failure Diastolic CHF, acute Dietary restriction Dupuytrens contracture DVT (deep venous thrombosis) Edema of left lower leg due to peripheral venous insufficiency End stage renal disease Equinus contracture of left ankle ESRD (end stage renal disease) on dialysis ESRD (end stage renal disease) on dialysis Former smoker Gastric reflux Hammer toe of left foot Hemodialysis patient High cholesterol History of DVT of lower extremity History of edema History of IBS History of pain when walking History of renal disease History of stress test Hx of echocardiogram Hypertension Insulin dependent diabetes mellitus Loss of consciousness Loss of hearing Malnutrition Morbid obesity NSTEMI (non-ST elevated myocardial infarction) Other specified peripheral vascular diseases Pressure ulcer Problem with dialysis access Pulmonary hypertension Renal failure, chronic Shortness of breath on exertion Spitting suture Syncope Transfusion (red blood cell) associated hemochromatosis Trigger finger Type 2 diabetes mellitus Type 2 diabetes mellitus with diabetic polyneuropathy Ulcer of left lower extremity with fat layer exposed Wears glasses Home Medications ascorbic acid (vitamin C) 1,000 mg tablet (Vitamin C) 1,000 mg PO DAILY suppliment 12/02/16 [History Last Taken 01/05/22] buspirone 10 mg tablet 10 mg PO BID depression 12/02/16 [History Last Taken 01/05/22] calcium acetate(phosphat bind) 667 mg capsule 1,334 - 2,001 mg PO TIDCM supplement 03/07/21 [History Last Taken 01/05/22] cinnamon bark 500 mg capsule 500 mg PO DAILY supplement 12/23/21 [History Last Taken 01/05/22] insulin NPH isoph U-100 human 100 unit/mL (3 mL) subcutaneous pen (Novolin N FlexPen) 5 unit subcut DAILY dm 12/23/21 [History Last Taken 01/06/22] pyridoxine (vitamin B6) 50 mg tablet (Vitamin B-6) 50 mg PO DAILY 12/23/21 [History Last Taken 01/05/22] aspirin 81 mg tablet,delayed release 81 mg PO BREAKFAST #30 tabs 12/27/21 [Rx Last Taken 01/05/22] nitroglycerin 0.4 mg sublingual tablet 0.4 mg sublingual Q5M PRN chest pain #25 tabs 12/30/21 [Rx Last Taken 01/06/22] insulin NPH isoph U-100 human 100 unit/mL (3 mL) subcutaneous pen (Novolin N FlexPen) 18 unit subcut QHS DM 01/06/22 [History Last Taken 01/05/22] isosorbide mononitrate 30 mg tablet,extended release 24 hr 30 mg PO DAILY HEART 01/06/22 [History Last Taken 01/05/22] pantoprazole 40 mg tablet,delayed release 40 mg PO DAILY GERD 01/06/22 [History Last Taken 01/05/22] amiodarone 200 mg tablet 200 mg PO DAILY 02/10/22 [History Last Taken Unknown] clopidogrel 75 mg tablet 75 mg PO DAILY 02/10/22 [History Last Taken Unknown] carvedilol 3.125 mg tablet 3.125 mg PO DAILY 05/09/22 [History Last Taken Unknown] nifedipine 90 mg tablet,extended release 24 hr 90 mg PO DAILY 05/09/22 [History Last Taken Unknown] atorvastatin 80 mg tablet (Lipitor) 80 mg PO DAILY 07/29/22 [History Last Taken Unknown] dicyclomine 20 mg tablet 20 mg PO TID 07/29/22 [History Last Taken Unknown] glucagon 1 mg injection kit 1 mg PRN PRN Hypoglycemia 07/29/22 [History Last Taken Unknown] midodrine 5 mg tablet 20 mg PO TID 07/29/22 [History Last Taken 11/21/22] simethicone 80 mg chewable tablet 80 mg PO Q6H 07/29/22 [History Last Taken Unknown] venlafaxine 150 mg capsule,extended release 24 hr (Effexor XR) 150 mg PO DAILY 07/29/22 [History Last Taken Unknown] hydroxyzine pamoate 25 mg capsule (Vistaril) 25 mg PO TID PRN anxiety 3 days #9 caps 01/29/23 [Rx Last Taken Unknown] Allergy/AdvReac Type Severity Reaction Status Date / Time cephalexin Allergy Hives Verified 02/04/23 09:24 Penicillins Allergy Hives Verified 02/04/23 09:24 Family History Mother Diabetes Heart disease Hypertension Surgical History History of arteriovenostomy for renal dialysis (~07/2020) History of carpal tunnel surgery of left wrist History of carpal tunnel surgery of right wrist History of colonoscopy History of quadruple bypass History of surgery History of tonsillectomy and adenoidectomy Social History housing: house Smoking Status: Former smoker alcohol intake: never ROS ROS ED Constitutional Constitutional ED: Denies chills or fever(s) Eyes Eyes: Denies change in vision or diplopia ENT ENT ED: Denies rhinorrhea or sore throat Cardiovascular Cardiovascular: Reports chest pain; Denies leg edema, lightheadedness or palpitations Respiratory/Chest Respiratory/Chest: Denies cough or dyspnea Gastrointestinal Gastrointestinal: Denies abdominal pain, diarrhea, nausea or vomiting Genitourinary Genitourinary ED: Denies dysuria or hematuria Musculoskeletal Musculoskeletal: Denies back pain or neck pain Integumentary Denies abscess or rash Neurologic Neurologic: Denies headache(s), paresthesias or weakness Psychiatric Psychiatric: Reports depression and other Details: States he was here almost a week ago for depression, still dealing with that but denies suicidality ; Denies anxiety or suicidal thoughts EXAM Physical Exam Const Vital Signs: 02/04/23 09:19 02/04/23 09:24 02/04/23 10:25 Temperature 98.0 F Temperature Source Temporal Pulse Rate 81 73 Respiratory Rate 15 Respiratory Effort Normal Non-Labored Blood Pressure 158/70 H 151/67 H Blood Pressure Mean 99 Pulse Ox 100 Oxygen Delivery Method Room Air 02/04/23 11:17 Temperature Temperature Source Pulse Rate 77 Respiratory Rate 16 Respiratory Effort Blood Pressure 166/68 H Blood Pressure Mean 100 Pulse Ox 98 Oxygen Delivery Method Room Air Positive well nourished, well developed and obese General Appearance ED: well developed and NAD Nutritional Appearance: obese HEENT Reports moist mucous membranes normocephalic and atraumatic Eyes PERRL and EOMs intact bilaterally Neck full ROM, supple and no JVD Resp normal respiratory effort and clear to auscultation bilaterally Cardio regular rate, regular rhythm and no murmurs GI non-tender and non-distended Auscultation: normoactive bowel sounds Palpation: soft Back/Spine no CVA tenderness General Back: other FROM Extremity normal to inspection General Extremety ED: Negative for edema, pulses abnormal or tenderness General Extremity: Negative for edema or pulses abnormal Neuro oriented x3, CN's II-XII intact bilaterally and no sensory deficits noted Sensorium / Orientation: awake and alert Motor Exam: strength 5/5 throughout Skin no rashes or lesions noted and no wounds Heart Score History: Moderately Suspicious ECG: Nonspecific Repolarization Age: >45 - <65 years Risk Factors: >/= 3 Risk Factors or History of CAD Troponin: </= Normal Limit Score: 5 MDM MDM MDM Narrative Medical decision making narrative: Patient is with noninjurious EKG that appears unchanged compared with his prior and an initial troponin that is within normal limits at 33. Chest x-ray 1 view on my interpretation shows no acute abnormality or mediastinal widening. He was given a nitroglycerin while we awaited this workup and a delta troponin measurement, he states the nitroglycerin may be helped a little but unsure, but on reevaluation he is continuously feeling better with regards to his chest tightness, and his second troponin measurement went down to 32. Given this, my suspicion for acute coronary syndrome is relatively low and I am comfortable discharging him home. We are contacting [facility] to see if they have the ability to get him back and finish his dialysis session since he is still accessed with dialysis catheters. If not, we will find dialysis staff to deaccessed him and he can call to obtain follow-up dialysis tomorrow or during his next session since his electrolytes are noted and stable. Lab Data Attestation: I reviewed the patient's lab results. Labs: Laboratory Results - last 24 hr 02/04/23 02/04/23 10:00 10:00 WBC 10.3 RBC 3.61 L Hgb 10.9 L Hct 34.2 L MCV 94.7 H MCH 30.2 MCHC 31.9 L RDW Std Deviation 52.4 H RDW Coeff of Kassandra 15.0 H Plt Count 249 MPV 11.0 Immature Gran % (Auto) 0.400 Neut % (Auto) 73.3 H Lymph % (Auto) 12.7 L Vilas % (Auto) 10.6 H Eos % (Auto) 2.7 Baso % (Auto) 0.3 Absolute Neuts (auto) 7.6 Absolute Lymphs (auto) 1.31 Nucleated RBC % 0 PT 19.7 H INR 1.7 Sodium 136 Potassium 3.5 Chloride 95 L Carbon Dioxide 36.0 H Anion Gap 5 BUN 28 H Creatinine 5.95 H Estim Creat Clear Calc 12.61 Est GFR (MDRD) Af Amer 12 L Est GFR (MDRD) Non-Af 10 L BUN/Creatinine Ratio 4.7 L Glucose 130 H Calcium 9.0 Troponin I High Sens 33 32 Radiography Diagnostic Testing: Clinical Impression(s) from Imaging Studies Chest X-Ray 02/04/23 09:48 IMPRESSION: No acute cardiopulmonary abnormality. No interval change. Electronically Signed: Bayron Hayes MD at 10:51 EST , Rhythm Strip Rhythm Strip: Sinus Rhythm Rate: 75 Ectopy: None EKG Initial EKG: Attestation: I personally reviewed and interpreted this EKG as follows: Interpretation: No Acute Injury Pattern and Non-Specific ST Changes (Diffuse) Comments: Wavy baseline that appears artifactual limits interpretation, but probably first-degree AV block sinus rhythm Prior EKG tracings: available for review Prior: Unchanged Discharge Plan Triage Chief Complaint: Chest Pain ED Provider: Jonathan Hall Dx/Rx/DC Orders Clinical Impression: Chest tightness, ESRD (end stage renal disease) on dialysis Instructions: ED Chest Pain, Noncardiac Prescriptions: No Action carvedilol 3.125 mg tablet 3.125 mg PO DAILY nifedipine 90 mg tablet extended release 24hr 90 mg PO DAILY ascorbic acid (vitamin C) [Vitamin C] 1,000 MG tablet 1,000 mg PO DAILY Patient Comments: vitamin buspirone 10 MG tablet 10 mg PO BID Patient Comments: anxiety calcium acetate(phosphat bind) 667 mg capsule 1,334 - 2,001 mg PO TIDCM Patient Comments: TAKE 1 CAPSULE DAILY pyridoxine (vitamin B6) [Vitamin B-6] 50 mg Tablet 50 mg PO DAILY Novolin N FlexPen 100 unit/mL (3 mL) insulin pen 5 unit SUBCUT DAILY Patient Comments: INJECT 5UNITS IN THE MORNING AND 18 UNITS SUBCUTANEOUSLY AT BEDTIME Rx Instructions: INJECT 5UNITS IN THE MORNING AND 18 UNITS SUBCUTANEOUSLY AT BEDTIME cinnamon bark 500 mg capsule 500 mg PO DAILY Patient Comments: 1 capsule by mouth as directed aspirin 81 mg Tablet,Delayed Release (Dr/Ec) 81 mg PO BREAKFAST Qty: 30 1RF nitroglycerin 0.4 mg tablet, sublingual 0.4 mg sublingual Q5M PRN (Reason: chest pain) Qty: 25 0RF Rx Instructions: do not exceed 3 doses per episode isosorbide mononitrate 30 mg Tablet Extended Release 24 Hr 30 mg PO DAILY pantoprazole 40 mg tablet,delayed release (DR/EC) 40 mg PO DAILY Novolin N FlexPen 100 unit/mL (3 mL) insulin pen 18 unit SUBCUT QHS Patient Comments: INJECT 4 UNITS IN THE MORNING AND 16 UNITS SUBCUTANEOUSLY AT BEDTIME Rx Instructions: INJECT 5UNITS IN THE MORNING AND 18 UNITS SUBCUTANEOUSLY AT BEDTIME amiodarone 200 mg Tablet 200 mg PO DAILY clopidogrel 75 mg tablet 75 mg PO DAILY Patient Comments: 1 tablet by mouth as directed glucagon 1 mg Kit 1 mg PRN PRN (Reason: Hypoglycemia) atorvastatin [Lipitor] 80 mg Tablet 80 mg PO DAILY midodrine [ProAmatine] 5 mg Tablet 20 mg PO TID Rx Instructions: do not give last dose of day after 6PM or within 4 hrs of bedtime venlafaxine [Effexor XR] 150 mg Capsule,Extended Release 24hr 150 mg PO DAILY dicyclomine [Bentyl] 20 mg Tablet 20 mg PO TID simethicone [Mylicon] 80 mg Tablet,Chewable 80 mg PO Q6H hydroxyzine pamoate [Vistaril] 25 mg capsule 25 mg PO TID PRN (Reason: anxiety) 3 Days Qty: 9 0RF Primary Care Provider: Yola Ng Referrals: Lillian Acharya DO [Med Staff - Consulting] - (contact regarding when to obtain your next dialysis session (your next scheduled vs. urgent session before that to replace the one you did not finish today, if [facility] cannot get you in today)) Yola Ng MD [Primary Care Provider] - 5-7 Days (regarding your chest tightness episode) Disposition Disposition: Home, Self Care
[2023-02-04 10:25] VITALS: BP 151/67; PULSE 73
[2023-02-04] MEDS: Nitroglycerin SL (ED/IMG/CATH) 0.4 MG TABLET SL (10:25)
[2023-02-04 10:31] LABS: Absolute Lymphocyte Count 1.31 X10^3/uL (0.83-4.51); Absolute Neutrophil Count 7.6 X10^3/uL (2.0-7.7); Basophil# 0.03 X10^3/uL; Basophil% 0.3 % (0-1); Eosinophil# 0.28 X10^3/uL; Eosinophils% 2.7 % (0-5); Hematocrit 34.2 % (40-54); Hemoglobin 10.9 g/dL (13.0-16.5); Lymphocyte # 1.31 X10^3/ul (0.83-4.51); Lymphocyte % 12.7 % (19-41); Mean Corp Hgb Conc 31.9 g/dL (32-36); Mean Corpuscular Hgb 30.2 pg (27.0-32.0); Mean Corpuscular Volume 94.7 fL (80-94); Monocyte% 10.6 % (0-10); NRBC Flagged by Analyzer 0 % (0-5); Neutrophil # 7.57 X10^3/uL (2.7-7.7); Neutrophil % 73.3 % (47-70); Platelet Count 249 K/mm3 (150-450); RBC Distribution Width SD 52.4 fl (35.1-43.9); Red Blood Count 3.61 M/mm3 (4.6-6.2); White Blood Count 10.3 K/mm3 (4.4-11.0)
[2023-02-04 10:43] LABS: Anion Gap 5 (5-15); BUN 28 mg/dL (7-18); BUN/Creat Ratio 4.7 RATIO (10-20); Chloride 95 mmol/L (98-107); Creatinine, Serum 5.95 mg/dL (0.70-1.30); EST Glomerular Filtration Rate 10 mL/min (>60); Est Glom Filt Rate - Afr Amer 12 mL/min (>60); Estimated Creatinine Clearance 12.61 ml/min; Glucose 130 mg/dL (74-106); Potassium 3.5 mmol/L (3.5-5.1); Sodium Level 136 mmol/L (136-145); Troponin-I HS (w/2H Reflex) 33 pg/mL (3.0-78.0)
[2023-02-04 10:51] LABS: International Normalized Ratio 1.7; Prothrombin Time (Protime)PT. 19.7 SECONDS (11.7-14.9)
[2023-02-04 11:17] VITALS: BP 166/68; PULSE 77; RESP 16; O2SAT 98
[2023-02-04 12:23] LABS: Reflex Troponin-HS? (from REC) Y
[2023-02-04 13:00] VITALS: BP 162/75; PULSE 65; RESP 16; O2SAT 98
[2023-02-04 13:17] LABS: Troponin-I HS 32 pg/mL (3.0-78.0)
== END 2023-02-04 14:00 | disposition home or self-care (01) ==
PROVIDERS: Emergency Provider Emergency Medicine; PCP Internal Medicine; Visit Provider Emergency Medicine
DX: R07.89 Other chest pain (principal); I13.2 Hypertensive heart and chronic kidney disease with heart failure and with stage 5 chronic kidney disease, or end stage renal disease; Z99.2 Dependence on renal dialysis; I50.9 Heart failure, unspecified; E11.42 Type 2 diabetes mellitus with diabetic polyneuropathy; E11.22 Type 2 diabetes mellitus with diabetic chronic kidney disease; N18.6 End stage renal disease; Z79.4 Long term (current) use of insulin; Z87.891 Personal history of nicotine dependence; E78.00 Pure hypercholesterolemia, unspecified; I25.10 Atherosclerotic heart disease of native coronary artery without angina pectoris; I25.2 Old myocardial infarction; I5A Non-ischemic myocardial injury (non-traumatic); Z99.89 Dependence on other enabling machines and devices; F32.A Depression, unspecified; Z79.899 Other long term (current) drug therapy; Z79.82 Long term (current) use of aspirin; Z79.02 Long term (current) use of antithrombotics/antiplatelets; K21.9 Gastro-esophageal reflux disease without esophagitis
CPT/HCPCS: 71045; 80048; 84484; 85025; 85610; 93005; 99284; A4216

== ENCOUNTER → 2023-04-17 | Outpatient (CLI) | payer MEDICARE, SELFPAY ==
[2023-04-17 10:53] LABS: Absolute Lymphocyte Count 2.04 X10^3/uL (0.83-4.51); Absolute Neutrophil Count 8.6 X10^3/uL (2.0-7.7); Basophil# 0.04 X10^3/uL; Basophil% 0.3 % (0-1); Eosinophil# 0.17 X10^3/uL; Eosinophils% 1.5 % (0-5); Hemoglobin 10.3 g/dL (13.0-16.5); Lymphocyte # 2.04 X10^3/ul (0.83-4.51); Lymphocyte % 17.4 % (19-41); Mean Corp Hgb Conc 30.3 g/dL (32-36); Mean Corpuscular Hgb 28.9 pg (27.0-32.0); Mean Corpuscular Volume 95.5 fL (80-94); Mean Platelet Vol. 9.4 fl (6.2-12.0); Monocyte% 6.8 % (0-10); NRBC Flagged by Analyzer 0 % (0-5); Neutrophil # 8.59 X10^3/uL (2.7-7.7); Neutrophil % 73.5 % (47-70); POSITIVE MORPHOLOGY YES; Platelet Count 313 K/mm3 (150-450); RBC Distribution Width CV 19.1 % (11.6-14.6); RBC Distribution Width SD 66.2 fl (35.1-43.9); Red Blood Count 3.56 M/mm3 (4.6-6.2); White Blood Count 11.7 K/mm3 (4.4-11.0)
[2023-04-17 11:01] LABS: Differential Indicated SCAN CRITERIA MET
[2023-04-17 11:08] LABS: Anion Gap 10 (5-15); BUN 67 mg/dL (7-18); BUN/Creat Ratio 7.8 RATIO (10-20); Calcium,Total 9.4 mg/dL (8.5-10.1); Chloride 94 mmol/L (98-107); Creatinine, Serum 8.54 mg/dL (0.70-1.30); EST Glomerular Filtration Rate 7 mL/min (>60); Est Glom Filt Rate - Afr Amer 8 mL/min (>60); Glucose 269 mg/dL (74-106); Potassium 4.4 mmol/L (3.5-5.1); Sodium Level 134 mmol/L (136-145)
[2023-04-17 11:52] LABS: Anisocytosis 2+; Differential Comment SCANNED; Macrocytosis 1+; Microcytosis 1+
== END | disposition home or self-care (01) ==
PROVIDERS: PCP Internal Medicine; Referring Provider Physician Assistant; Visit Provider Physician Assistant
DX: T82.898A Other specified complication of vascular prosthetic devices, implants and grafts, initial encounter (principal)
CPT/HCPCS: 36415; 80048; 85025

== ENCOUNTER 2023-05-01 09:09 | Day surgery (SDC) | payer MEDICARE, SELFPAY ==
[2023-05-01 09:29] LABS: INR Fingerstick 1.5; Prothrombin Time Fingerstick 15.9 SEC (11.7-14.9)
[2023-05-01 09:49] LABS: Hematocrit 35.9 % (40-54); Hemoglobin 10.8 g/dL (13.0-16.5); Mean Corp Hgb Conc 30.1 g/dL (32-36); Mean Corpuscular Hgb 29.3 pg (27.0-32.0); Mean Corpuscular Volume 97.3 fL (80-94); Mean Platelet Vol. 9.3 fl (6.2-12.0); Platelet Count 292 K/mm3 (150-450); RBC Distribution Width CV 18.2 % (11.6-14.6); RBC Distribution Width SD 64.4 fl (35.1-43.9); Red Blood Count 3.69 M/mm3 (4.6-6.2); White Blood Count 7.7 K/mm3 (4.4-11.0)
[2023-05-01 09:54] VITALS: BMI 92.2
--- NOTE | 2023-05-01 10:35 | HP.PCM_ITS ---
History and Physical Date of Admission: 05/01/23 Chief Complaint: decreased flows Is patient in pain?: No Allergies cephalexin Allergy (Verified 04/17/23 09:54) HivesPenicillins Allergy (Verified 04/17/23 09:54) Hives Medications ascorbic acid (vitamin C) 1,000 mg tablet (Vitamin C) 1,000 mg PO DAILY suppliment 12/02/16 [History Confirmed 04/17/23] buspirone 10 mg tablet 10 mg PO BID depression 12/02/16 [History Confirmed 04/17/23] calcium acetate(phosphat bind) 667 mg capsule 1,334 - 2,001 mg PO TIDCM supplement 03/07/21 [History Confirmed 04/17/23] cinnamon bark 500 mg capsule 500 mg PO DAILY supplement 12/23/21 [History Confirmed 04/17/23] insulin NPH isoph U-100 human 100 unit/mL (3 mL) subcutaneous pen (Novolin N FlexPen) 5 unit subcut DAILY dm 12/23/21 [History Confirmed 04/17/23] pyridoxine (vitamin B6) 50 mg tablet (Vitamin B-6) 50 mg PO DAILY 12/23/21 [History Confirmed 04/17/23] aspirin 81 mg tablet,delayed release 81 mg PO BREAKFAST #30 tabs 12/27/21 [Rx Confirmed 04/17/23] nitroglycerin 0.4 mg sublingual tablet 0.4 mg sublingual Q5M PRN chest pain #25 tabs 12/30/21 [Rx Confirmed 04/17/23] insulin NPH isoph U-100 human 100 unit/mL (3 mL) subcutaneous pen (Novolin N FlexPen) 18 unit subcut QHS DM 01/06/22 [History Confirmed 04/17/23] isosorbide mononitrate 30 mg tablet,extended release 24 hr 30 mg PO DAILY HEART 01/06/22 [History Confirmed 04/17/23] pantoprazole 40 mg tablet,delayed release 40 mg PO DAILY GERD 01/06/22 [History Confirmed 04/17/23] amiodarone 200 mg tablet 200 mg PO DAILY 02/10/22 [History Confirmed 04/17/23] clopidogrel 75 mg tablet 75 mg PO DAILY 02/10/22 [History Confirmed 04/17/23] carvedilol 3.125 mg tablet 3.125 mg PO DAILY 05/09/22 [History Confirmed 04/17/23] nifedipine 90 mg tablet,extended release 24 hr 90 mg PO DAILY 05/09/22 [History Confirmed 04/17/23] atorvastatin 80 mg tablet (Lipitor) 80 mg PO DAILY 07/29/22 [History Confirmed 04/17/23] dicyclomine 20 mg tablet 20 mg PO TID 07/29/22 [History Confirmed 04/17/23] glucagon 1 mg injection kit 1 mg PRN PRN Hypoglycemia 07/29/22 [History Confirmed 04/17/23] midodrine 5 mg tablet 20 mg PO TID 07/29/22 [History Confirmed 04/17/23] simethicone 80 mg chewable tablet 80 mg PO Q6H 07/29/22 [History Confirmed 04/17/23] venlafaxine 150 mg capsule,extended release 24 hr (Effexor XR) 150 mg PO DAILY 07/29/22 [History Confirmed 04/17/23] hydroxyzine pamoate 25 mg capsule (Vistaril) 25 mg PO TID PRN anxiety 3 days #9 caps 01/29/23 [Rx Confirmed 04/17/23] PFS Medical History (HFpEF) heart failure with preserved ejection fraction Acute exacerbation of CHF (congestive heart failure) Ptsne-uw-whldrls kidney injury Anemia Anxiety Atrial fibrillation [facility] Cardiology follow-up encounter Chest pain CHF (congestive heart failure) Chronic kidney failure Chronic renal failure, 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 Colonization status Congestive heart failure (CHF) Coronary artery disease COVID CPAP (continuous positive airway pressure) dependence Delayed wound healing Depression Diabetes mellitus type 2 in obese Dialysis catheter clot or failure Diastolic CHF, acute Dietary restriction Dupuytrens contracture DVT (deep venous thrombosis) Edema of left lower leg due to peripheral venous insufficiency End stage renal disease Equinus contracture of left ankle ESRD (end stage renal disease) on dialysis ESRD (end stage renal disease) on dialysis Former smoker Gastric reflux Hammer toe of left foot Hemodialysis patient High cholesterol History of DVT of lower extremity History of edema History of IBS History of pain when walking History of renal disease History of stress test Hx of echocardiogram Hypertension Insulin dependent diabetes mellitus Loss of consciousness Loss of hearing Malnutrition Morbid obesity NSTEMI (non-ST elevated myocardial infarction) Other specified peripheral vascular diseases Pressure ulcer Problem with dialysis access Pulmonary hypertension Renal failure, chronic Shortness of breath on exertion Spitting suture Syncope Transfusion (red blood cell) associated hemochromatosis Trigger finger Type 2 diabetes mellitus Type 2 diabetes mellitus with diabetic polyneuropathy Ulcer of left lower extremity with fat layer exposed Wears glasses Surgical History History of arteriovenostomy for renal dialysis (~07/2020) History of carpal tunnel surgery of left wrist History of carpal tunnel surgery of right wrist History of colonoscopy History of quadruple bypass History of surgery History of tonsillectomy and adenoidectomy Family History Mother Diabetes Heart disease Hypertension Social History housing: house Smoking Status: Former smoker alcohol intake: never HPI HPI HPI: Patient is a 62 y/o M I am seeing for decreased arterial flows. Patient denies any post-treatment bleeding or fistula pain. Patient has a right forearm brachial to cephalic PTFE graft arteriovenous fistula. Patient had a revision of the fistula with a PTFE graft placed by Dr. Deal on 09/09/21 due to a severely calcified radial artery. Patient's most recent fistulogram was performed on 11/21/[address] Deal. Findings included proximal fistula high-grade venous stenosis. Moderate PTFE graft inflow stenosis at the brachial artery. A 6 x 2 conquest angioplasty was performed. Patient dialyzes on T, TH and Sat. Patient is maintained on Coumadin. 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 ROS General General: Yes weight change; No appetite, fatigue, colon cancer, breast cancer or weakness HEENT HEENT: No difficulty swallowing, eye injury, eye surgery, swollen glands or hoarseness Endo Endocrine: Yes diabetes mellitus; No thyroid disease, thyroid cancer, Hair loss, heat intolerance or cold intolerance Skin Skin: No rash or changing moles Musc Musculoskeletal: No back problems, arthritis, rheumatoid arthritis, gout or joint pain Psych Psychiatric: Yes depression; No anxiety or hearing voices Resp Respiratory: No shortness of breath, Yes sleep apnea, No cough, No COPD, No asthma, No emphysema and No wheezing Gastro Gastrointestinal: No abdominal pain, No nausea or vomiting, No diarrhea, No constipation, No blood in stool, No acid reflux, No hemorrhoids, No ulcers, No gallbladder problem and No black,tarry stools Robby Hematologic: Yes blood thinners, No blood disorders, No bleeding, Yes anemia and Yes blood clots Neuro Neurologic: No system reviewed and no additional complaints, except as documented, No as per HPI, No abnormal gait, No abnormal hearing, No abnormal movements, No abnormal speech, No behavioral changes, No burning sensations, No confusion, No convulsions, No disequilibrium, No dizziness, No localized weakness, No frequent falls, No headache(s), No lack of coordination, No loss of vision, No memory loss, Yes numbness, No other visual disturbances, No radicular pain, No restless legs, No sensory deficit, No syncope, Yes tingling, No tremor(s), No weakness and No other Exam Const General: cooperative, healthy appearing, comfortable and no acute distress HENMT Head: normal to inspection Eyes General: appearance normal, both eyes and all related structures Neck Neck: normal visual inspection Neck mass: No Resp Effort & Inspection: normal respiratory effort Auscultation: clear to auscultation bilaterally Cardio Rate: regular rate Rhythm: regular rhythm GI Inspection: normal to inspection, large pannus and obesity Palpation: soft Musc Cervical Spine: normal cervical lordosis Skin General: no rashes or lesions noted Neuro General: no focal motor deficits and CN's II-XI intact bilaterally Extrem Other: Right forearm AV fistula- good pulse, bruit diminished at superior access site and thrill is diminished. Psych Appearance: grossly normal Affect: normal affect Assessment and Plan Assessment and Plan (1) Problem with dialysis access: Status: Acute Qualifiers: Encounter type: initial encounter Qualified Code(s): T82.898A - Other specified complication of vascular prosthetic devices, implants and grafts, initial encounter Plan: Dr. Deal will plan to perform a right forearm arteriovenous fistulogram. Procedure details, risks and benefits have been explained. Patient will hold his Coumadin for 2 days prior to the procedure. Patient has had the opportunity to ask and have questions answered. Patient verbally understands and agrees with the plan I have examined the patient and the H&P has been reviewed. There are no clinical changes since date of exam. Willem Deal M.D., F.A.C.S.
[2023-05-01 10:52] LABS: Anion Gap 12 (5-15); BUN 26 mg/dL (7-18); BUN/Creat Ratio 3.2 RATIO (10-20); Calcium,Total 9.6 mg/dL (8.5-10.1); Chloride 97 mmol/L (98-107); Creatinine, Serum 8.08 mg/dL (0.70-1.30); EST Glomerular Filtration Rate 7 mL/min (>60); Est Glom Filt Rate - Afr Amer 9 mL/min (>60); Estimated Creatinine Clearance 20.51 ml/min; Glucose 157 mg/dL (74-106); Potassium 3.7 mmol/L (3.5-5.1); Sodium Level 138 mmol/L (136-145)
--- NOTE | 2023-05-01 12:31 | PCM.OPRPT ---
Report of Operation Date of Procedure: 05/01/23 Pre-Operative Diagnosis: Diminished flow right forearm PTFE graft to right distal forearm cephalic vein arteriovenous hemodialysis fistula Post-Operative Diagnosis: High grade venous component fistula stenosis over 3 cm at the distal right forearm PTFE venous junction Surgery/Procedure Performed:: Right upper extremity fistulogram with 7 x 2 conquest angioplasty and 8 x 4 DCB Medtronic Impact balloon Description of Surgical Findings:: Timeout informed consent was obtained. 62-year-old gentleman was taken to the special procedures lab placed on the table. He drove himself so no sedative provided. The right upper extremity sterilely prepped and draped. Ultrasound was used to identify the cephalic vein closer to the antecubital space retrograde with flow. Under ultrasound guidance 2% lidocaine was instilled as a local anesthetic. Micropuncture needle inserted. Micropuncture wire inserted. 6 Turkish short sheath dilator inserted. Using an 035 angled Glidewire and a 4 Turkish glide cath gained access to the right brachial artery by going distally through the cephalic vein past the junction of the PTFE graft in the cephalic vein and then back to the cephalic vein junction with the right brachial artery. Isovue contrast was used. This demonstrated that the brachial artery to PTFE anastomosis was widely patent. The PTFE widely patent. The first 3 cm of the cephalic vein just at the PTFE graft anastomosis was highly narrowed at greater than 90%. There is evidence of some sidebranches effectively coiled. There is then good forearm cephalic vein outflow good upper arm basilic and cephalic vein outflow and good central venous outflow. I performed distal forearm venous balloon angioplasty with a 7 x 2 conquest balloon. I then used a 8 x 4 Medtronic Impact AV paclitaxel coated balloon. This was inflated right at the junction of the PTFE and the vein and inflated for 2 minutes at 10 chula. Subsequent imaging now demonstrates complete resolution of the area of previous stenosis. Images demonstrate a PTFE graft that goes from the right brachial artery down distally in the forearm and at the wrist level has anastomosis with the right cephalic vein at that juncture. That is where there is a high-grade venous stenosis. The remainder of the cephalic vein of the forearm and upper arm has good arm and central venous outflow. The right upper arm basilic vein widely patent. Subsequent to the conquest and subsequent DCB balloon angioplasty there is resolution of the venous stenosis in the distal forearm. There is a good strong pulse thrill and bruit at the completion. Blood loss minimal. No apparent complications. The patient tolerated the procedure very well. Willem Deal M.D., F.A.C.S. Surgeon: Willem Deal Type of Anesthesia: Local
== END 2023-05-01 13:30 | disposition home or self-care (01) ==
PROVIDERS: PCP Internal Medicine; Referring Provider Surgery; Visit Provider Surgery
DX: T82.898A Other specified complication of vascular prosthetic devices, implants and grafts, initial encounter (principal); I13.2 Hypertensive heart and chronic kidney disease with heart failure and with stage 5 chronic kidney disease, or end stage renal disease; I50.32 Chronic diastolic (congestive) heart failure; E11.22 Type 2 diabetes mellitus with diabetic chronic kidney disease; E11.42 Type 2 diabetes mellitus with diabetic polyneuropathy; N18.6 End stage renal disease; I70.208 Unspecified atherosclerosis of native arteries of extremities, other extremity; Z79.4 Long term (current) use of insulin; E78.00 Pure hypercholesterolemia, unspecified; Z87.891 Personal history of nicotine dependence; Z86.16 Personal history of COVID-19; I25.10 Atherosclerotic heart disease of native coronary artery without angina pectoris; Y82.9 Unspecified medical devices associated with adverse incidents; I25.2 Old myocardial infarction
CPT/HCPCS: 36415; 36416; 36902; 76937; 80048; 85027; 85610; C2623; Q9967; C1725; C1769; C1894

== ENCOUNTER 2023-08-20 12:00 | Emergency (ER) | payer MEDICARE, SELFPAY ==
[2023-08-20] VITALS (16 sets, daily range): BP systolic 108–130; BP diastolic 55–79; PULSE 72–86; RESP 9–26; TEMP 36.3; O2SAT 91–100; BMI 40.5
--- NOTE | 2023-08-20 12:19 | RAD_ITS ---
EXAM: XR CHEST, 1 VIEW CLINICAL INDICATION: cad TECHNIQUE: Frontal view of the chest. COMPARISON: 02/04/2023 FINDINGS: LUNGS AND PLEURAL SPACES: No significant abnormality. No consolidation or edema. No pneumothorax. No effusion. HEART: Status post CABG and left atrial appendage occlusion. MEDIASTINUM: Central airways and mediastinal contour are unremarkable. BONES/JOINTS: Median sternotomy. No acute fracture. SOFT TISSUES: No significant abnormality. RAD/Chest 1 View (Portable) IMPRESSION: Status post CABG and left atrial appendage occlusion. No acute findings. Electronically Signed: Albaro Baker DO at 12:48 EDT ,
--- NOTE | 2023-08-20 12:19 | EKG12_ITS ---
Test Reason : Blood Pressure : / mmHG Vent. Rate : 071 BPM Atrial Rate : 071 BPM P-R Int : 172 ms QRS Dur : 100 ms QT Int : 414 ms P-R-T Axes : 072 085 158 degrees QTc Int : 449 ms Sinus rhythm with Premature atrial complexes ST & T wave abnormality, consider anterior ischemia Abnormal ECG Confirmed by DIANA HARVEY, LAURA ([id number]), editor publications ANDREINA CASTANO ([id number]) on 08/21/2023 8:10:42 AM Referred By: Confirmed By:LAURA ORTIZ MD
--- NOTE | 2023-08-20 12:21 | EDS_ITS ---
HPI History of Present Illness Chief Complaint: Overdose Informant: patient and family Narrative Narrative: 63-year-old male presenting to the emergency room following intentional drug overdose. Patient has a history of atrial fibrillation on Coumadin end-stage r enal disease on dialysis diabetes and coronary artery disease. Patient states that he was being considered for renal transplant but found out 2 weeks ago that he was denied because I missed placed a letter. He states that it has been slowly eating at him and this morning he intentionally took an overdose of buspirone and alprazolam. Reportedly could have taken up to #100 10mg tablets of buspirone and #29 0.5 mg of alprazolam. He states that they were new bottles that he has filled recently. He states that he took them 45 minutes to an hour ago and states that he feels okay. He was texting with family and told look about this and they called emergency services. [facility] Medical History Diabetes mellitus type 2 in obese ESRD (end stage renal disease) on dialysis Hypertension NSTEMI (non-ST elevated myocardial infarction) Renal failure, chronic Spitting suture End stage renal disease COVID Insulin dependent diabetes mellitus History of IBS Blackout ESRD (end stage renal disease) on dialysis Chronic kidney failure Congestive heart failure (CHF) Coronary artery disease Dupuytrens contracture Problem with dialysis access Trigger finger Loss of hearing Wears glasses Anxiety Pressure ulcer History of renal disease High cholesterol DVT (deep venous thrombosis) Loss of consciousness Syncope Dietary restriction Gastric reflux Former smoker CPAP (continuous positive airway pressure) dependence Shortness of breath on exertion History of pain when walking History of edema Hx of echocardiogram History of stress test Pulmonary hypertension Cardiology follow-up encounter Transfusion (red blood cell) associated hemochromatosis Dialysis catheter clot or failure Chronic renal failure, stage 5 Hemodialysis patient Atrial fibrillation Aqzzv-sc-kofrpte kidney injury Acute exacerbation of CHF (congestive heart failure) (HFpEF) heart failure with preserved ejection fraction Anemia Chest pain Ulcer of left lower extremity with fat layer exposed Colonization status Malnutrition Delayed wound healing Hammer toe of left foot Type 2 diabetes mellitus with diabetic polyneuropathy Other specified peripheral vascular diseases Edema of left lower leg due to peripheral venous insufficiency Equinus contracture of left ankle Chronic 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 Diastolic CHF, acute CHF (congestive heart failure) History of DVT of lower extremity Type 2 diabetes mellitus Morbid obesity Depression Home Medications ?Medication ?Instructions ?Recorded ?Last Taken ?Type ascorbic acid (vitamin C) 1,000 mg 1,000 mg PO DAILY suppliment 12/02/16 01/05/22 History tablet (Vitamin C) buspirone 10 mg tablet 10 mg PO BID depression 12/02/16 01/05/22 History calcium acetate(phosphat bind) 667 1,334 - 2,001 mg PO TIDCM 03/07/21 01/05/22 History mg capsule supplement cinnamon bark 500 mg capsule 500 mg PO DAILY supplement 12/23/21 01/05/22 History insulin NPH isoph U-100 human 100 5 unit subcut DAILY dm 12/23/21 01/06/22 History unit/mL (3 mL) subcutaneous pen (Novolin N FlexPen) pyridoxine (vitamin B6) 50 mg 50 mg PO DAILY 12/23/21 01/05/22 History tablet (Vitamin B-6) aspirin 81 mg tablet,delayed 81 mg PO BREAKFAST #30 tabs 12/27/21 04/30/23 Rx release nitroglycerin 0.4 mg sublingual 0.4 mg sublingual Q5M PRN chest 12/30/21 01/06/22 Rx tablet pain #25 tabs insulin NPH isoph U-100 human 100 18 unit subcut QHS DM 01/06/22 01/05/22 Hi story unit/mL (3 mL) subcutaneous pen (Novolin N FlexPen) isosorbide mononitrate 30 mg 30 mg PO DAILY HEART 01/06/22 01/05/22 History tablet,extended release 24 hr pantoprazole 40 mg tablet,delayed 40 mg PO DAILY GERD 01/06/22 01/05/22 History release amiodarone 200 mg tablet 200 mg PO DAILY 02/10/22 Unknown History clopidogrel 75 mg tablet 75 mg PO DAILY 02/10/22 Unknown History carvedilol 3.125 mg tablet 3.125 mg PO DAILY 05/09/22 Unknown History nifedipine 90 mg tablet,extended 90 mg PO DAILY 05/09/22 Unknown History release 24 hr atorvastatin 80 mg tablet (Lipitor) 80 mg PO DAILY 07/29/22 Unknown History dicyclomine 20 mg tablet 20 mg PO TID 07/29/22 Unknown History glucagon 1 mg injection kit 1 mg subcut PRN PRN Hypoglycemia 07/29/22 Unknown History midodrine 5 mg tablet 20 mg PO TID 07/29/22 11/21/22 History simethicone 80 mg chewable tablet 80 mg PO Q6H 07/29/22 Unknown History venlafaxine 150 mg 150 mg PO DAILY 07/29/22 Unknown History capsule,extended release 24 hr (Effexor XR) hydroxyzine pamoate 25 mg capsule 25 mg PO TID PRN anxiety 3 days #9 01/29/23 Unknown Rx (Vistaril) caps warfarin 1 mg tablet mg 05/01/23 04/28/23 History warfarin 10 mg tablet mg 05/01/23 04/28/23 History warfarin 3 mg tablet mg 05/01/23 Unknown History Allergy/AdvReac Type Severity Reaction Status Date / Time cephalexin Allergy Hives Verified 08/20/23 12:07 Penicillins Allergy Hives Verified 08/20/23 12:07 Family History Mother Diabetes Heart disease Hypertension Surgical History History of quadruple bypass History of colonoscopy History of surgery History of arteriovenostomy for renal dialysis (~07/2020) History of tonsillectomy and adenoidectomy History of carpal tunnel surgery of right wrist History of carpal tunnel surgery of left wrist Social History housing: house Smoking Status: Former smoker alcohol intake: never ROS ROS ED Constitutional Constitutional ED: Denies chills, fever(s) or weight loss Eyes Eyes: Denies change in vision or diplopia ENT ENT ED: Denies ear pain, rhinorrhea or sore throat Cardiovascular Cardiovascular: Denies chest pain, orthopnea, palpitations or racing heartbeat Respiratory/Chest Respiratory/Chest: Denies cough, dyspnea or orthopnea Gastrointestinal Gastrointestinal: Denies abdominal pain, diarrhea, nausea or vomiting Genitourinary Genitourinary ED: Denies dysuria, hematuria or urinary frequency Musculoskeletal Musculoskeletal: Denies arthralgias or myalgias Integumentary Denies abscess or rash Neurologic Neurologic: Denies headache(s) or weakness Psychiatric Psychiatric: Reports depression, suicidal ideation and suicidal thoughts; Denies anxiety Endocrine Endocrinology: Denies polydipsia, polyphagia or polyuria Allergic/Immunologic Allergic/Immunologic ED: Denies mouth swelling, tongue swelling or urticaria EXAM Physical Exam Const Vital Signs: 08/20/23 12:03 08/20/23 12:20 08/20/23 12:30 Temperature 97.3 F L Temperature Source Temporal Pulse Rate 72 72 Respiratory Rate 9 L 15 13 Blood Pressure 119/63 119/66 Blood Pressure Mean 81 83 Pulse Ox 97 97 98 Oxygen Delivery Method Room Air 08/20/23 12:45 08/20/23 13:00 08/20/23 13:00 Temperature Temperature Source Pulse Rate 75 81 76 Respiratory Rate 18 12 14 Blood Pressure 123/67 H 130/66 H 130/66 H Blood Pressure Mean 84 87 84 Pulse Ox 91 97 97 Oxygen Delivery Method Room Air 08/20/23 13:26 08/20/23 14:00 08/20/23 15:01 Temperature Temperature Source Pulse Rate 77 73 81 Respiratory Rate 17 26 H 19 H Blood Pressure 108/79 111/57 L 117/55 L Blood Pressure Mean 89 73 71 Pulse Ox 96 97 98 Oxygen Delivery Method 08/20/23 16:00 08/20/23 17:00 08/20/23 18:00 Temperature Temperature Source Pulse Rate 73 79 79 Respiratory Rate 17 15 15 Blood Pressure 109/63 117/60 110/62 Blood Pressure Mean 78 77 77 Pulse Ox 100 96 99 Oxygen Delivery Method 08/20/23 19:00 Temperature Temperature Source Pulse Rate 82 Respiratory Rate 16 Blood Pressure 126/79 H Blood Pressure Mean 94 Pulse Ox 98 Oxygen Delivery Method Room Air Positive well nourished, well developed and obese General Appearance ED: well developed Nutritional Appearance: obese HEENT Reports normocephalic, head/scalp atraumatic and moist mucous membranes Eyes PERRL and EOMs intact bilaterally Eyes Narrative: Pupils 4-2 bilaterally Neck no lymphadenopathy, supple and no JVD Resp normal respiratory effort and clear to auscultation bilaterally Cardio regular rate, regular rhythm and no murmurs GI normal to inspection, nondistended, normoactive bowel sounds and non-tender Palpation: soft Back/Spine no CVA tenderness and normal ROM Extremity normal to inspection General Extremety ED: Negative for edema General Extremity: Negative for edema Neuro oriented x3 and CN's II-XII intact bilaterally Sensorium / Orientation: alert Motor Exam: strength 5/5 throughout Psych Psych Narrative: Patient readily admits to suicide attempt by overdosing. He has a very flat affect. He speaks nprhic-ic-cbyxez with minimal words. He is not fidgety or appear internally stimulated. Mood & Affect: depressed; Negative for tearful Skin no rashes or lesions noted and no wounds MDM MDM MDM Narrative Medical decision making narrative: Differential diagnosis includes but not limited to benzodiazepine toxidrome, serotonin syndrome, dopamine complications, electrolyte disturbance, liver dysfunction, cardiac dysrhythmias, hypoglycemia, cardiac toxicities. EKG is a sinus rhythm at a rate of 71. My independent interpretation of the est x-ray is no acute process. White count 8.3 with a hemoglobin of 10.2 platelet count is 207. INR 1.7 so slightly subtherapeutic. Creatinine 6.95 with a BUN of 26. Lactic acid nonspecifically elevated at 3 in the setting of being normal tensive. Troponin curiously elevated at 480 and second troponin was down to 470. A third troponin was ordered and is down to 416. Second lactic acid was elevated at 3.7 but a third down to 2.7. No complaints of chest pain shortness of breath or EKG changes. Toxicology is otherwise negative so far. He makes very little urine about 1 time per day so I do not have a urine drug screen at this time. ABG obtained is the second lactic acid is 3.7. Showed a pH of 7.49 pCO2 of 45 PaO2 74 bicarb 35. Patient has remained hemodynamically stable and afebrile. He has not required any supplementation of oxygen or ventilation. Mentation appears normal. Difficult to say what the explanation would be for the elevated lactic acid. If this is metabolism from the overdose or not but it is clinically improving and not seeing evidence of shock state. He has not had any chest pain or coronary artery symptoms so I suspect the elevated troponin is more type II. The patient's INR is slightly subtherapeutic at 1.6. However given the intentional drug overdose I have not yet administered additional Coumadin in case of any potential liver toxicity which has not yet manifested. I have asked crisis to evaluate the patient for probable psychiatric placement. He will need access to dialysis. History & Record Review Discussion w/independent historian: Patient and Family Additional record(s) reviewed:: Prior labs Lab Data Attestation: I reviewed the patient's lab results. Labs: Laboratory Results - last 24 hr 08/20/23 08/20/23 08/20/23 12:12 12:30 14:20 WBC 8.3 RBC 3.17 L Hgb 10.2 L Hct 30.6 L MCV 96.5 H MCH 32.2 H MCHC 33.3 RDW Std Deviation 59.8 H RDW Coeff of Kassandra 17.0 H Plt Count 207 MPV 10.3 Immature Gran % (Auto) 0.200 Neut % (Auto) 69.9 Lymph % (Auto) 19.5 Hamblen % (Auto) 7.8 Eos % (Auto) 2.4 Baso % (Auto) 0.2 Absolute Neuts (auto) 5.8 Absolute Lymphs (auto) 1.62 Nucleated RBC % 0 PT 20.2 H INR 1.7 APTT 28.1 Sodium 136 Potassium 3.7 Chloride 93 L Carbon Dioxide 34.0 H Anion Gap 9 BUN 26 H Creatinine 6.95 H Estim Creat Clear Calc 13.94 Est GFR (MDRD) Af Amer 10 L Est GFR (MDRD) Non-Af 9 L BUN/Creatinine Ratio 3.7 L Glucose 165 H Lactic Acid 3.0 H* 3.7 H* Calcium 9.4 Total Bilirubin 0.90 Direct Bilirubin 0.26 AST 20 ALT 26 Alkaline Phosphatase 67 Troponin I High Sens 480 H* 470 H* Total Protein 7.2 Albumin 3.4 Globulin 3.8 Lipase 71 Salicylates < 1.7 L Acetaminophen < 2.0 L Ethyl Alcohol < 3.0 08/20/23 18:15 WBC RBC Hgb Hct MCV MCH MCHC RDW Std Deviation RDW Coeff of Kassandra Plt Count MPV Immature Gran % (Auto) Neut % (Auto) Lymph % (Auto) Hamblen % (Auto) Eos % (Auto) Baso % (Auto) Absolute Neuts (auto) Absolute Lymphs (auto) Nucleated RBC % PT INR APTT Sodium Potassium Chloride Carbon Dioxide Anion Gap BUN Creatinine Estim Creat Clear Calc Est GFR (MDRD) Af Amer Est GFR (MDRD) Non-Af BUN/Creatinine Ratio Glucose Lactic Acid 2.7 H* Calcium Total Bilirubin Direct Bilirubin AST ALT Alkaline Phosphatase Troponin I High Sens 416 H* Total Protein Albumin Globulin Lipase Salicylates Acetaminophen Ethyl Alcohol ABG Data ABG results: ABG 08/20/23 15:38 Specimen Type ART Sample Site L Brach pH 7.49 H Bicarbonate Actual 35.1 H Total CO2 37 Base Excess 12 H O2 Saturation 96 ABG pCO2 45.9 H ABG pO2 75 O2 Delivery Device Room Air Vent Mode Not entered Radiography Diagnostic Testing: Clinical Impression(s) from Imaging Studies Chest X-Ray 08/20/23 12:19 IMPRESSION: Status post CABG and left atrial appendage occlusion. No acute findings. Electronically Signed: Albaro OrdazdanielasusieDO at 12:48 EDT , EKG Initial EKG: Attestation: I personally reviewed and interpreted this EKG as follows: Comments: Sinus rhythm with noted PAC. Ventricular rate of 71 bpm. No significant QT prolongation. No preexcitation noted Management Discussion w/another healthcare provider: Power Generation Engineer (Poison control) Discharge Plan Triage Chief Complaint: Overdose ED Provider: Kevin Carranza Dx/Rx/DC Orders Clinical Impression: Drug overdose, intentional, Hypertension, Type 2 diabetes mellitus, ESRD (end stage renal disease) on dialysis, Suicide attempt, Depression, Subtherapeutic anticoagulation Prescriptions: No Action carvedilol 3.125 mg tablet 3.125 mg PO DAILY nifedipine 90 mg tablet extended release 24hr 90 mg PO DAILY ascorbic acid (vitamin C) [Vitamin C] 1,000 MG tablet 1,000 mg PO DAILY Patient Comments: vitamin buspirone 10 MG tablet 10 mg PO BID Patient Comments: anxiety calcium acetate(phosphat bind) 667 mg capsule 1,334 - 2,001 mg PO TIDCM Patient Comments: TAKE 1 CAPSULE DAILY pyridoxine (vitamin B6) [Vitamin B-6] 50 mg Tablet 50 mg PO DAILY Novolin N FlexPen 100 unit/mL (3 mL) insulin pen 5 unit SUBCUT DAILY Patient Comments: INJECT 5UNITS IN THE MORNING AND 18 UNITS SUBCUTANEOUSLY AT BEDTIME Rx Instructions: INJECT 5UNITS IN THE MORNING AND 18 UNITS SUBCUTANEOUSLY AT BEDTIME cinnamon bark 500 mg capsule 500 mg PO DAILY Patient Comments: 1 capsule by mouth as directed aspirin 81 mg Tablet,Delayed Release (Dr/Ec) 81 mg PO BREAKFAST Qty: 30 1RF nitroglycerin 0.4 mg tablet, sublingual 0.4 mg sublingual Q5M PRN (Reason: chest pain) Qty: 25 0RF Rx Instructions: do not exceed 3 doses per episode isosorbide mononitrate 30 mg Tablet Extended Release 24 Hr 30 mg PO DAILY pantoprazole 40 mg tablet,delayed release (DR/EC) 40 mg PO DAILY Novolin N FlexPen 100 unit/mL (3 mL) insulin pen 18 unit SUBCUT QHS Patient Comments: INJECT 4 UNITS IN THE MORNING AND 16 UNITS SUBCUTANEOUSLY AT BEDTIME Rx Instructions: INJECT 5UNITS IN THE MORNING AND 18 UNITS SUBCUTANEOUSLY AT BEDTIME amiodarone 200 mg Tablet 200 mg PO DAILY clopidogrel 75 mg tablet 75 mg PO DAILY Patient Comments: 1 tablet by mouth as directed glucagon 1 mg Kit 1 mg subcut PRN PRN (Reason: Hypoglycemia) atorvastatin [Lipitor] 80 mg Tablet 80 mg PO DAILY midodrine [ProAmatine] 5 mg Tablet 20 mg PO TID Rx Instructions: do not give last dose of day after 6PM or within 4 hrs of bedtime venlafaxine [Effexor XR] 150 mg Capsule,Extended Release 24hr 150 mg PO DAILY dicyclomine [Bentyl] 20 mg Tablet 20 mg PO TID simethicone [Mylicon] 80 mg Tablet,Chewable 80 mg PO Q6H hydroxyzine pamoate [Vistaril] 25 mg capsule 25 mg PO TID PRN (Reason: anxiety) 3 Days Qty: 9 0RF warfarin 10 mg tablet Patient Comments: Take 12mg daily or as directing pending blood testing warfarin 3 mg tablet warfarin 1 mg tablet Patient Comments: Take 2mg daily with a 10mg table to equal 12mg daily or as directed pending blood testing Primary Care Provider: Yola Ng Referrals: Yola Ng MD [Primary Care Provider] - Print Language: Latvian
[2023-08-20] MEDS: Activated Charcoal 50 GM/240 ML BOT PO (12:35)
[2023-08-20 12:41] LABS: Absolute Lymphocyte Count 1.62 X10^3/uL (0.83-4.51); Absolute Neutrophil Count 5.8 X10^3/uL (2.0-7.7); Basophil# 0.02 X10^3/uL; Basophil% 0.2 % (0-1); Eosinophils% 2.4 % (0-5); Hematocrit 30.6 % (40-54); Hemoglobin 10.2 g/dL (13.0-16.5); Lymphocyte # 1.62 X10^3/ul (0.83-4.51); Lymphocyte % 19.5 % (19-41); Mean Corp Hgb Conc 33.3 g/dL (32-36); Mean Corpuscular Hgb 32.2 pg (27.0-32.0); Mean Corpuscular Volume 96.5 fL (80-94); Mean Platelet Vol. 10.3 fl (6.2-12.0); Monocyte# 0.65 X10^3/uL; Monocyte% 7.8 % (0-10); NRBC Flagged by Analyzer 0 % (0-5); Neutrophil # 5.79 X10^3/uL (2.7-7.7); Neutrophil % 69.9 % (47-70); Platelet Count 207 K/mm3 (150-450); RBC Distribution Width SD 59.8 fl (35.1-43.9); Red Blood Count 3.17 M/mm3 (4.6-6.2); White Blood Count 8.3 K/mm3 (4.4-11.0)
[2023-08-20 12:48] LABS: International Normalized Ratio 1.7; Prothrombin Time (Protime)PT. 20.2 SECONDS (11.7-14.9)
[2023-08-20 12:49] LABS: Partial Thromboplast Time 28.1 Seconds (24.1-36.2)
[2023-08-20 13:06] LABS: AST(SGOT) 20 U/L (15-37); Alanine Aminotransfer ALT/SGPT 26 U/L (16-61); Albumin, Serum 3.4 g/dL (3.2-5.0); Alkaline Phosphatase 67 U/L (45-117); Anion Gap 9 (5-15); BUN 26 mg/dL (7-18); BUN/Creat Ratio 3.7 RATIO (10-20); Bilirubin, Direct 0.26 mg/dL (0.00-0.30); Calcium,Total 9.4 mg/dL (8.5-10.1); Chloride 93 mmol/L (98-107); Creatinine, Serum 6.95 mg/dL (0.70-1.30); EST Glomerular Filtration Rate 9 mL/min (>60); Est Glom Filt Rate - Afr Amer 10 mL/min (>60); Estimated Creatinine Clearance 13.94 ml/min; Globulin 3.8 g/dL (2.2-4.2); Glucose 165 mg/dL (74-106); Lipase 71 U/L (13-75); Potassium 3.7 mmol/L (3.5-5.1); Protein, Total 7.2 g/dL (6.4-8.2); Sodium Level 136 mmol/L (136-145); Troponin-I HS 480 pg/mL (3.0-78.0)
[2023-08-20 13:42] LABS: Acetaminophen (Tylenol) Level < 2.0 ug/mL (10.0-30.0); Alcohol, Blood (Medical)-Serum < 3.0 mg/dL; Salicylate < 1.7 mg/dL (2.8-20.0)
--- NOTE | 2023-08-20 13:57 | ED.RN ---
Pt doesn't make much urine, states he may urinate a small amount once per day. Pt attempted to obtain urine sample, unable to provide. aware, no orders to straight cath at this time.
[2023-08-20 14:38] LABS: Reflex Lactate? Y
[2023-08-20 15:06] LABS: Lactic Acid 3.7 mmol/L (0.4-1.9); Troponin-I HS 470 pg/mL (3.0-78.0)
[2023-08-20] MEDS: 0.9% Normal Saline (500mL Bag) 500 ML 999 ML IV (15:26)
[2023-08-20 15:43] LABS: Base Excess 12 mmol/L (-2 to +2); Bicarbonate 35.1 mmol/L (22-26); Blood Gas Specimen Type ART; Mode Not entered; O2 Delivery Device Room Air; PO2 75 mmHG (75-100); SITE L Brach; SO2 96 % (95-99); Total Carbon Dioxide 37 mmol/L; pCO2 45.9 mmHg (35-45); pH 7.49 (7.35-7.45)
[2023-08-20 18:39] LABS: Reflex Lactate? Y
[2023-08-20 18:53] LABS: Troponin-I HS 416 pg/mL (3.0-78.0)
[2023-08-20 18:56] LABS: Lactic Acid 2.7 mmol/L (0.4-1.9)
--- NOTE | 2023-08-20 20:55 | ED.RN ---
Pt remains calm and cooperative, resting in bed. Pt awake and alert, able to stand beside bed without dizziness, vital signs remain stable.
[2023-08-20 22:25] LABS: Reflex Lactate? Y
--- NOTE | 2023-08-20 22:29 | ED.RN ---
Home meds updated per pt list, he states list is correct. One time dose of warfarin 15mg given tonight per ED MD.
[2023-08-20 23:00] LABS: Bedside Glucose 138 mg/dL (74-106)
[2023-08-20 23:02] LABS: Lactic Acid 1.9 mmol/L (0.4-1.9)
[2023-08-21] MEDS: Dicyclomine 10 MG Capsule 20 MG PO ×2 (05:27→13:25)
[2023-08-21] MEDS: Midodrine HCl 5 MG Tablet 20 MG PO ×2 (05:28→13:26)
[2023-08-21 07:16] VITALS: BP 119/65; PULSE 84; RESP 18; O2SAT 98
--- NOTE | 2023-08-21 07:34 | ED.RN ---
This RN confirmed with patient that his normal dialysis scheduled in Monday, , monday and he did receive dialysis this past monday.
--- NOTE | 2023-08-21 08:32 | ED.RN ---
CALLED [facility] ABOUT ACCEPTING INFORMATION
[2023-08-21] MEDS: Venlafaxine XR 150 MG Capsule PO (09:04)
[2023-08-21] MEDS: Atorvastatin Calcium 40 MG Tablet PO (09:05)
[2023-08-21] MEDS: Folic Acid/Vitamin B Comp W-C 1 Capsule 1 CAP PO (09:05)
[2023-08-21] MEDS: Pantoprazole Sodium 40 MG Tablet PO (09:05)
[2023-08-21] MEDS: Calcium Acetate 667 MG Capsule 1334 MG PO ×3 (09:05→17:28)
[2023-08-21] MEDS: Furosemide 40 MG Tablet PO (09:11)
[2023-08-21] MEDS: Gabapentin 300 MG Capsule 600 MG PO (09:12)
[2023-08-21 13:30] VITALS: BP 129/68; PULSE 71; RESP 16; O2SAT 97
--- NOTE | 2023-08-21 14:23 | ED.RN ---
FAXED PINK SLIP TO
--- NOTE | 2023-08-21 16:07 | ED.RN ---
SPOKE TO [facility] ABOUT DELAY
--- NOTE | 2023-08-21 16:13 | ED.RN ---
This Rn spoke with Alyssa from [facility] regarding pt. status. Alyssa stated pt. is still accepted at [facility] but they are trying to arrange a specific room that can accomodate his needs for dialysis. This RN reiterated that pt. will need dialyzed tomorrow so it is very important we try to get him to the facility today.
--- NOTE | 2023-08-21 19:11 | ED.RN ---
This RN attempted to call report to facility, this RN placed on hold for 10 minutes.
[2023-08-21 19:14] VITALS: BP 136/70; PULSE 77; RESP 19; TEMP 36.6; O2SAT 98
--- NOTE | 2023-08-21 19:15 | ED.RN ---
Jace RN gave report to Alfred
== END 2023-08-21 20:34 ==
LOC: ED 13:05
PROVIDERS: Emergency Provider Emergency Medicine; PCP Internal Medicine; Visit Provider Emergency Medicine
DX: T43.592A Poisoning by other antipsychotics and neuroleptics, intentional self-harm, initial encounter (principal); N18.6 End stage renal disease; I50.32 Chronic diastolic (congestive) heart failure; I48.91 Unspecified atrial fibrillation; E11.22 Type 2 diabetes mellitus with diabetic chronic kidney disease; Z79.4 Long term (current) use of insulin; F32.A Depression, unspecified; I25.10 Atherosclerotic heart disease of native coronary artery without angina pectoris; Z87.891 Personal history of nicotine dependence; Z99.2 Dependence on renal dialysis; E78.00 Pure hypercholesterolemia, unspecified; Z79.01 Long term (current) use of 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; I25.2 Old myocardial infarction; Z79.899 Other long term (current) drug therapy; Z79.82 Long term (current) use of aspirin; K21.9 Gastro-esophageal reflux disease without esophagitis
CPT/HCPCS: 36600; 71045; 80048; 80076; 80320; 80329; 82803; 82962; 83605; 83690; 84484; 85025; 85610; 85730; 93005; 96360; 96361; 99285; J7040; A4216; G0480

== ENCOUNTER 2023-08-31 19:18 | Inpatient (IN) | payer MEDICARE, SELFPAY ==
[2023-08-31 19:20] VITALS: BP 126/66; PULSE 84; RESP 16; TEMP 35.2; O2SAT 100; BMI 40.4
--- NOTE | 2023-08-31 19:48 | ED.RN ---
states he just doesn't 'feel right' and doesn't want to get to where he was 2 weeks ago with his mental health. denies suicidal or homicidal thoughts at this time.
--- NOTE | 2023-08-31 19:50 | ED.RN ---
patient states that he just doesn't 'feel right' and he doesnt want to get to where he was 2 weeks ago when he overdosed on buspar. Denies suicidal or homicidal thoughts at this time.
--- NOTE | 2023-08-31 19:54 | EKG12_ITS ---
Test Reason : DYSRHYTHMIA Blood Pressure : / mmHG Vent. Rate : 071 BPM Atrial Rate : 071 BPM P-R Int : 162 ms QRS Dur : 108 ms QT Int : 406 ms P-R-T Axes : 065 073 153 degrees QTc Int : 441 ms Normal sinus rhythm Nonspecific ST-T changes Abnormal ECG Confirmed by OFELIA HARVEY, LISY ([id number]), business editor KARRI AMIN ([id number]) on 09/06/2023 10:40:01 A M Referred By: Confirmed By:RICK GILBERT MD
--- NOTE | 2023-08-31 19:55 | EX.ED.VIS.PS ---
HPI HPI - Psych History of Present Illness Chief Complaint: Mental Health Narrative Narrative: 63-year-old male past medical history of diabetes, end-stage renal disease with dialysis Monday, , and Monday, has depression for which she takes BuSpar as well, presents with increasing depression and feelings of worthlessness. Of note, he states that 2 weeks ago he was seen in the emergency department after overdosing on BuSpar. He states he took approximately 100 tablets at that time. He was sent to a psychiatric facility and [place] where he had access to dialysis. He was recently released from there on Monday of last week, approximately 7 days ago. He presents with his neighbor because of increasing feelings of anxiety and worthlessness. He states he does not have a plan on committing suicide, but he does not want to get to that point. His neighbor states that he has a lady friend, but no family that frequents the patient's house. She had just left and gotten to [place] with her mother when he wanted her to drop everything and come back. She in turn called his neighbor who brought him here because they were concerned that he was starting to have suicidal ideation again. [facility] Medical History Diabetes mellitus type 2 in obese ESRD (end stage renal disease) on dialysis Hypertension NSTEMI (non-ST elevated myocardial infarction) Renal failure, chronic Spitting suture End stage renal disease COVID Insulin dependent diabetes mellitus History of IBS Blackout ESRD (end stage renal disease) on dialysis Chronic kidney failure Congestive heart failure (CHF) Coronary artery disease Dupuytrens contracture Problem with dialysis access Trigger finger Loss of hearing Wears glasses Anxiety Pressure ulcer History of renal disease High cholesterol DVT (deep venous thrombosis) Loss of consciousness Syncope Dietary restriction Gastric reflux Former smoker CPAP (continuous positive airway pressure) dependence Shortness of breath on exertion History of pain when walking History of edema Hx of echocardiogram History of stress test Pulmonary hypertension Cardiology follow-up encounter Transfusion (red blood cell) associated hemochromatosis Dialysis catheter clot or failure Chronic renal failure, stage 5 Hemodialysis patient Atrial fibrillation [id number] kidney injury Acute exacerbation of CHF (congestive heart failure) (HFpEF) heart failure with preserved ejection fraction Anemia Chest pain Ulcer of left lower extremity with fat layer exposed Colonization status Malnutrition Delayed wound healing Hammer toe of left foot Type 2 diabetes mellitus with diabetic polyneuropathy Other specified peripheral vascular diseases Edema of left lower leg due to peripheral venous insufficiency Equinus contracture of left ankle Chronic 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 Diastolic CHF, acute CHF (congestive heart failure) History of DVT of lower extremity Type 2 diabetes mellitus Morbid obesity Depression Home Medications ?Medication ?Instructions ?Recorded ?Last Taken ?Type buspirone 10 mg tablet 10 mg PO BID depression 12/02/16 01/05/22 History calcium acetate(phosphat bind) 667 1,334 - 2,001 mg PO TIDCM 03/07/21 01/05/22 History mg capsule supplement nitroglycerin 0.4 mg sublingual 0.4 mg sublingual Q5M PRN chest 12/30/21 01/06/22 Rx tablet pain #25 tabs pantoprazole 40 mg tablet,delayed 40 mg PO DAILY GERD 01/06/22 01/05/22 History release dicyclomine 20 mg tablet 20 mg PO TID 07/29/22 Unknown History glucagon 1 mg injection kit 1 mg subcut PRN PRN Hypoglycemia 07/29/22 Unknown History midodrine 5 mg tablet 20 mg PO TID 07/29/22 11/21/22 History venlafaxine 150 mg 150 mg PO DAILY 07/29/22 Unknown History capsule,extended release 24 hr (Effexor XR) warfarin 1 mg tablet 2.5 mg PO DAILY 05/01/23 04/28/23 History warfarin 10 mg tablet 10 mg PO DAILY 05/01/23 04/28/23 History atorvastatin 40 mg tablet (Lipitor) 40 mg PO DAILY 08/20/23 Unknown History furosemide 40 mg tablet (Lasix) 40 mg PO DAILY 08/20/23 Unknown History gabapentin 600 mg tablet 600 mg PO Q12H 08/20/23 Unknown History insulin NPH isoph U-100 human 100 18 unit subcut QPM 08/20/23 Unknown History unit/mL (3 mL) subcutaneous pen (Humulin N NPH U-100 Insulin KwikPen) vitamin B complex-vitamin C-folic 1 tab PO DAILY 08/20/23 Unknown History acid 0.8 mg tablet (Renal-Meño) Allergy/AdvReac Type Severity Reaction Status Date / Time cephalexin Allergy Hives Verified 08/20/23 12:07 Penicillins Allergy Hives Verified 08/20/23 12:07 Family History Mother Diabetes Heart disease Hypertension Surgical History History of quadruple bypass History of colonoscopy History of surgery History of arteriovenostomy for renal dialysis (~07/2020) History of tonsillectomy and adenoidectomy History of carpal tunnel surgery of right wrist History of carpal tunnel surgery of left wrist Social History housing: house Smoking Status: Former smoker alcohol intake: never ROS ROS ED ROS Narrative Constitutional: No fever, no chills. HEENT: No sore throat. No neck pain. No loss of vision. No rhinorrhea. Cardiovascular: No chest pain. No palpitations. No pedal edema. Respiratory: No cough, no shortness of breath. Abdominal: No abdominal pain. No nausea. No vomiting. Genitourinary: No dysuria. No hematuria. Musculoskeletal: No myalgias. No arthralgias. Neurologic: No headaches. No dizziness. No lightheadedness. Skin: No rash. No change in color. Psychiatric: Positive depression. Mild anxiety. Feelings of worthlessness. EXAM Physical Exam Narrative Exam Narrative: Afebrile. Vital signs noted. HEENT: Normocephalic. Atraumatic. PERRL, EOMI. Neck soft and supple. No point tenderness or step off. Cardiovascular: Regular rate and rhythm. No murmurs, rubs, or gallops appreciated. Respiratory: No tachypnea. Lungs clear to auscultation bilaterally. Gastrointestinal: Abdomen soft, nontender, with normoactive bowel sounds. No rebound or guarding. Neurological: Awake. Alert. Nonfocal, nonlateralizing. Skin: No rash. Normal color. No pallor. Musculoskeletal: No pedal edema. Full range of motion extremities. Psychiatric: Mild depression. Feelings of worthlessness. Occasional suicidal ideation, but no plan. States started feeling that way today. Had seen primary care provider yesterday. Const Vital Signs: 08/31/23 19:20 Temperature 95.4 F L Temperature Source Temporal Pulse Rate 84 Respiratory Rate 16 Blood Pressure 126/66 H Blood Pressure Mean 86 Pulse Ox 100 Oxygen Delivery Method Room Air MDM MDM MDM Narrative Medical decision making narrative: Medical clearance labs were obtained and reviewed. EKG obtained and interpreted by myself as normal sinus rhythm at 71 bpm without ectopy or acute ST changes. No STEMI. I reviewed his laboratory work and he has slightly elevated white count of 12.1 which I think is nonspecific, hemoglobin 8.5, but he has intermittent chronic anemia. Platelet count normal at 285. INR is 1.6 so he is subtherapeutic but he was 1.7 on review of his prior laboratories. Review of his electrolyte panel shows chloride slightly low at 95. Creatinine is elevated at 4.95 consistent with his end-stage renal disease, BUN 17. Glucose is appropriately elevated at 116 with a normal anion gap of 10. LFTs are grossly unremarkable. Ethyl alcohol is negative. Patient rarely makes urine, only 1 time a day. Additionally he already received dialysis so he is unable to produce a urine sample for urine for drugs of abuse. However I do not think that this is indicated or needed for medical clearance currently as he was dialyzed today as well and it was never obtained prior to his last admission. Given his suicidal ideation, I do feel that he is medically cleared for evaluation by crisis counselor. Patient is currently pending crisis evaluation. Disposition is also pending. Patient signed out to oncoming physician. He is in stable condition. History & Record Review Discussion w/independent historian: Patient Additional record(s) reviewed:: Prior labs Lab Data Attestation: I reviewed the patient's lab results. Labs: Laboratory Results - last 24 hr 08/31/23 20:12 WBC 12.1 H RBC 2.61 L Hgb 8.5 L Hct 25.6 L MCV 98.1 H MCH 32.6 H MCHC 33.2 RDW Std Deviation 58.9 H RDW Coeff of Kassandra 16.5 H Plt Count 285 MPV 9.5 Immature Gran % (Auto) 0.500 Neut % (Auto) 71.9 H Lymph % (Auto) 18.2 L Nye % (Auto) 7.7 Eos % (Auto) 1.3 Baso % (Auto) 0.4 Absolute Neuts (auto) 8.7 H Absolute Lymphs (auto) 2.20 Nucleated RBC % 0 PT 19.0 H INR 1.6 Sodium 136 Potassium 3.5 Chloride 95 L Carbon Dioxide 31.0 Anion Gap 10 BUN 17 Creatinine 4.95 H Estim Creat Clear Calc 19.54 Est GFR (MDRD) Af Amer 15 L Est GFR (MDRD) Non-Af 13 L BUN/Creatinine Ratio 3.4 L Glucose 116 H Calcium 9.1 Total Bilirubin 0.80 AST 17 ALT 22 Alkaline Phosphatase 76 Total Protein 7.7 Albumin 3.4 Globulin 4.3 H Albumin/Globulin Ratio 0.8 L Salicylates < 1.7 L Acetaminophen < 2.0 L Ethyl Alcohol < 3.0 Discharge Plan Triage Chief Complaint: Mental Health ED Provider: Shimon Prieto Dx/Rx/DC Orders Prescriptions: No Action buspirone 10 MG tablet 10 mg PO BID Patient Comments: anxiety calcium acetate(phosphat bind) 667 mg capsule 1,334 - 2,001 mg PO TIDCM Patient Comments: TAKE 1 CAPSULE DAILY nitroglycerin 0.4 mg tablet, sublingual 0.4 mg sublingual Q5M PRN (Reason: chest pain) Qty: 25 0RF Rx Instructions: do not exceed 3 doses per episode pantoprazole 40 mg tablet,delayed release (DR/EC) 40 mg PO DAILY glucagon 1 mg Kit 1 mg subcut PRN PRN (Reason: Hypoglycemia) midodrine [ProAmatine] 5 mg Tablet 20 mg PO TID Rx Instructions: do not give last dose of day after 6PM or within 4 hrs of bedtime venlafaxine [Effexor XR] 150 mg Capsule,Extended Release 24hr 150 mg PO DAILY dicyclomine [Bentyl] 20 mg Tablet 20 mg PO TID warfarin 10 mg tablet 10 mg PO DAILY Patient Comments: Take 12.5mg daily or as directing pending blood testing warfarin 1 mg tablet 2.5 mg PO DAILY Patient Comments: Take 2.5 mg daily with a 10mg table to equal 12mg daily or as directed pending blood testing atorvastatin [Lipitor] 40 mg tablet 40 mg PO DAILY gabapentin 600 mg tablet 600 mg PO Q12H Humulin N NPH Insulin KwikPen 100 unit/mL (3 mL) insulin pen 18 unit subcut QPM furosemide [Lasix] 40 mg tablet 40 mg PO DAILY Renal-Meño 0.8 mg tablet 1 tab PO DAILY Primary Care Provider: Yola Ng Referrals: Yola Ng MD [Primary Care Provider] - Print Language: Sami
[2023-08-31 20:18] LABS: Absolute Neutrophil Count 8.7 X10^3/uL (2.0-7.7); Basophil# 0.05 X10^3/uL; Basophil% 0.4 % (0-1); Eosinophil# 0.16 X10^3/uL; Eosinophils% 1.3 % (0-5); Hematocrit 25.6 % (40-54); Hemoglobin 8.5 g/dL (13.0-16.5); Lymphocyte % 18.2 % (19-41); Mean Corp Hgb Conc 33.2 g/dL (32-36); Mean Corpuscular Hgb 32.6 pg (27.0-32.0); Mean Corpuscular Volume 98.1 fL (80-94); Mean Platelet Vol. 9.5 fl (6.2-12.0); Monocyte# 0.93 X10^3/uL; Monocyte% 7.7 % (0-10); NRBC Flagged by Analyzer 0 % (0-5); Neutrophil # 8.72 X10^3/uL (2.7-7.7); Neutrophil % 71.9 % (47-70); Platelet Count 285 K/mm3 (150-450); RBC Distribution Width CV 16.5 % (11.6-14.6); RBC Distribution Width SD 58.9 fl (35.1-43.9); Red Blood Count 2.61 M/mm3 (4.6-6.2); White Blood Count 12.1 K/mm3 (4.4-11.0)
[2023-08-31 20:37] LABS: ALB/GLOB Ratio 0.8 RATIO (0.9-2.4); AST(SGOT) 17 U/L (15-37); Alanine Aminotransfer ALT/SGPT 22 U/L (16-61); Albumin, Serum 3.4 g/dL (3.2-5.0); Alkaline Phosphatase 76 U/L (45-117); Anion Gap 10 (5-15); BUN 17 mg/dL (7-18); BUN/Creat Ratio 3.4 RATIO (10-20); Calcium,Total 9.1 mg/dL (8.5-10.1); Chloride 95 mmol/L (98-107); Creatinine, Serum 4.95 mg/dL (0.70-1.30); EST Glomerular Filtration Rate 13 mL/min (>60); Est Glom Filt Rate - Afr Amer 15 mL/min (>60); Estimated Creatinine Clearance 19.54 ml/min; Globulin 4.3 g/dL (2.2-4.2); Glucose 116 mg/dL (74-106); Potassium 3.5 mmol/L (3.5-5.1); Protein, Total 7.7 g/dL (6.4-8.2); Sodium Level 136 mmol/L (136-145)
[2023-08-31 20:41] LABS: International Normalized Ratio 1.6
[2023-08-31 20:46] LABS: Alcohol, Blood (Medical)-Serum < 3.0 mg/dL
[2023-08-31 20:56] LABS: Acetaminophen (Tylenol) Level < 2.0 ug/mL (10.0-30.0); Salicylate < 1.7 mg/dL (2.8-20.0)
[2023-09-01 02:52] VITALS: BP 106/54; PULSE 71; RESP 14; TEMP 36.2; O2SAT 100
[2023-09-01 08:27] LABS: Bedside Glucose 112 mg/dL (74-106)
[2023-09-01] MEDS: Amitriptyline 10 MG Tablet PO ×2 (08:58→22:25)
[2023-09-01] MEDS: Venlafaxine XR 150 MG Capsule PO (08:58)
[2023-09-01] MEDS: Calcium Acetate 667 MG Capsule PO ×3 (08:58→17:34)
[2023-09-01] MEDS: busPIRone 15 MG TABLET PO ×2 (08:59→22:25)
[2023-09-01] MEDS: Atorvastatin Calcium 40 MG Tablet PO (08:59)
[2023-09-01] MEDS: Folic Acid/Vitamin B Comp W-C 1 Capsule 1 CAP PO (09:00)
[2023-09-01] MEDS: Furosemide 40 MG Tablet PO (09:04)
[2023-09-01] MEDS: Pantoprazole Sodium 40 MG Tablet PO (09:04)
[2023-09-01 09:07] VITALS: BP 122/63; PULSE 82; RESP 16; O2SAT 98
--- NOTE | 2023-09-01 09:10 | ED.RN ---
CALLED CRISIS[facility]
[2023-09-01] MEDS: Gabapentin 600 MG Tablet PO (09:27)
--- NOTE | 2023-09-01 11:20 | ED.RN ---
CALLED CRISIS--WAITING ON ACCEPTANCE FROM [facility]; [facility] IS THE ONLY ONE THAT TAKES DIALYSIS PTS
[2023-09-01] MEDS: Midodrine HCl 5 MG Tablet 20 MG PO ×2 (14:08→17:34)
[2023-09-01] MEDS: Dicyclomine 10 MG Capsule 20 MG PO ×2 (14:11→17:34)
[2023-09-01 14:19] VITALS: BP 134/72; PULSE 90; RESP 16; O2SAT 100
--- NOTE | 2023-09-01 15:29 | ED.RN ---
DECLINED @ [facility]--CALLING BACK WITH NEXT STEPS
--- NOTE | 2023-09-01 15:37 | ED.RN ---
CRISIS CALLED--PENDING ACCEPTANCE AT [facility]
--- NOTE | 2023-09-01 18:22 | ED.RN ---
CALLED CRISIS--STILL PENDING ACCEPTANCE @ [facility]
[2023-09-01 22:00] VITALS: BP 122/41; PULSE 74; RESP 16; TEMP 36.6; O2SAT 99
[2023-09-01 22:31] LABS: Bedside Glucose 160 mg/dL (74-106)
[2023-09-01] MEDS: Insulin NPH Human 100 UNITS/ML PEN 18 UNITS SC (22:31)
[2023-09-02 05:43] VITALS: BP 107/35; PULSE 82; TEMP 36.2; O2SAT 99
[2023-09-02 06:34] LABS: Anion Gap 10 (5-15); BUN 45 mg/dL (7-18); BUN/Creat Ratio 5.3 RATIO (10-20); Calcium,Total 9.6 mg/dL (8.5-10.1); Chloride 96 mmol/L (98-107); Creatinine, Serum 8.48 mg/dL (0.70-1.30); EST Glomerular Filtration Rate 7 mL/min (>60); Est Glom Filt Rate - Afr Amer 8 mL/min (>60); Estimated Creatinine Clearance 11.41 ml/min; Glucose 130 mg/dL (74-106); Potassium 4.1 mmol/L (3.5-5.1); Sodium Level 137 mmol/L (136-145)
[2023-09-02] MEDS: Dicyclomine 10 MG Capsule 20 MG PO ×2 (08:42→12:57)
[2023-09-02] MEDS: Calcium Acetate 667 MG Capsule PO ×3 (08:42→19:37)
[2023-09-02] MEDS: Midodrine HCl 5 MG Tablet 20 MG PO ×3 (08:45→19:37)
--- NOTE | 2023-09-02 08:47 | NURSING ---
[id number] CREWS
--- NOTE | 2023-09-02 08:48 | NURSING ---
PAGED DR ACOSTA (FOR DR DANIELS)
[2023-09-02] MEDS: Venlafaxine XR 150 MG Capsule PO (12:56)
[2023-09-02] MEDS: Atorvastatin Calcium 40 MG Tablet PO (12:56)
[2023-09-02] MEDS: Amitriptyline 10 MG Tablet PO ×2 (12:56→23:30)
[2023-09-02] MEDS: busPIRone 15 MG TABLET PO ×2 (12:56→23:30)
[2023-09-02] MEDS: Pantoprazole Sodium 40 MG Tablet PO (12:58)
[2023-09-02] MEDS: Folic Acid/Vitamin B Comp W-C 1 Capsule 1 CAP PO (12:58)
[2023-09-02] MEDS: Insulin NPH Human 100 UNITS/ML PEN SC (12:58)
[2023-09-02] MEDS: Furosemide 40 MG Tablet PO (12:58)
[2023-09-02 13:00] VITALS: BP 131/69; PULSE 89; RESP 18; TEMP 36.1; O2SAT 94
[2023-09-02] MEDS: Gabapentin 600 MG Tablet PO (13:03)
[2023-09-02 13:23] LABS: Bedside Glucose 169 mg/dL (74-106)
[2023-09-02 21:00] VITALS: BP 120/66; PULSE 75; RESP 18; TEMP 36.4; O2SAT 98
[2023-09-02] MEDS: Insulin NPH Human 100 UNITS/ML PEN 18 UNITS SC (23:23)
[2023-09-02] MEDS: Gabapentin 300 MG Capsule 600 MG PO (23:30)
[2023-09-02 23:44] LABS: Bedside Glucose 155 mg/dL (74-106)
[2023-09-03 05:00] VITALS: BP 100/48; PULSE 65; RESP 16; TEMP 36.7; O2SAT 96
[2023-09-03 07:29] LABS: Anion Gap 8 (5-15); BUN 64 mg/dL (7-18); BUN/Creat Ratio 6.1 RATIO (10-20); Calcium,Total 9.6 mg/dL (8.5-10.1); Chloride 97 mmol/L (98-107); EST Glomerular Filtration Rate 5 mL/min (>60); Est Glom Filt Rate - Afr Amer 6 mL/min (>60); Estimated Creatinine Clearance 9.21 ml/min; Glucose 89 mg/dL (74-106); Potassium 4.2 mmol/L (3.5-5.1); Sodium Level 136 mmol/L (136-145)
[2023-09-03] MEDS: Calcium Acetate 667 MG Capsule PO ×3 (08:55→16:57)
[2023-09-03] MEDS: Dicyclomine 10 MG Capsule 20 MG PO ×3 (08:55→16:58)
[2023-09-03] MEDS: Midodrine HCl 5 MG Tablet 20 MG PO ×3 (08:55→16:56)
[2023-09-03 10:33] LABS: Bedside Glucose 128 mg/dL (74-106)
[2023-09-03] MEDS: Folic Acid/Vitamin B Comp W-C 1 Capsule 1 CAP PO (11:36)
[2023-09-03] MEDS: busPIRone 15 MG TABLET PO ×2 (11:36→22:10)
[2023-09-03] MEDS: Amitriptyline 10 MG Tablet PO ×2 (11:36→22:10)
[2023-09-03] MEDS: Atorvastatin Calcium 40 MG Tablet PO (11:36)
[2023-09-03] MEDS: Furosemide 40 MG Tablet PO (11:36)
[2023-09-03] MEDS: Pantoprazole Sodium 40 MG Tablet PO (11:36)
[2023-09-03] MEDS: Venlafaxine XR 150 MG Capsule PO (11:36)
[2023-09-03] MEDS: Insulin NPH Human 100 UNITS/ML PEN SC (11:37)
[2023-09-03] MEDS: Gabapentin 300 MG Capsule 600 MG PO ×2 (11:54→22:00)
[2023-09-03 11:55] VITALS: BP 130/68; PULSE 73; RESP 16; TEMP 36.4; O2SAT 98
--- NOTE | 2023-09-03 12:55 | CM.ED ---
Social Work: [employer] worker received a phone call from Peg at [facility] stating that a placement has yet to be secured for patient however it is scheduled to be reviewed on 09/03 at 8am. If warranted, and if patient contracts for safety, Peg reported that patient may likely be discharged on a safety plan if a placement is unable to be secured. No further updates at this time and on-going 24 hour assessments will continue to take place with patient and a therapist from [facility] until patient is either transferred or discharged. Marisel Curry, FLORAL SPECIALIST, PROFESSOR OF INDUSTRIAL TECHNOLOGY
--- NOTE | 2023-09-03 13:51 | NURSING ---
CALLED CRISIS TO SEE WHEN PATIENT IS GOING TO BE REACCESSED TODAY
--- NOTE | 2023-09-03 14:09 | NURSING ---
CRISIS COMING TO SEE PATIENT ABOUT 1929
[2023-09-03 18:40] VITALS: BP 118/67; PULSE 62; RESP 18; TEMP 36.2; O2SAT 100
[2023-09-03] MEDS: Insulin NPH Human 100 UNITS/ML PEN 18 UNITS SC (22:01)
[2023-09-03 22:19] LABS: Bedside Glucose 192 mg/dL (74-106)
[2023-09-04] VITALS (12 sets, daily range): BP systolic 107–211; BP diastolic 50–74; PULSE 61–77; RESP 18; TEMP 36.6–36.8; O2SAT 96–100; BMI 40.8; BMI 40.7; BMI 41.0; BMI 40.6
--- NOTE | 2023-09-04 02:49 | PCM.HP.STD ---
HPI - General General Date of Admission: 09/04/23 Date of Service: 09/04/23 Chief Complaint: Anxiety and Depression, worsening w/ Suicidal ideation, needs admit for HD HPI Narrative The patient is a 63 y/o M w/ PMHx: ESRD on HD T//Mon, CAD s/p CABG x 4, HFpEF, HTN, HLD, Diabetes mellitus type II with history of diabetic wounds/pressure ulcers with chronic neuropathy, Chronic anemia/AOCD, Anxiety and Depression with prior Suicide attempt, ARRON on CPAP, Former tobacco use, Hx VTE (DVT), PAF, Morbid obesity who initially presented to the [facility] ED on 08/31/2023 with history of significantly increasing depression and feelings of worthlessness with recent ED evaluation with overdose of BuSpar with transition to psychiatric facility in [place] at that time recently released the Monday prior to his current presentation approximately 1 week with again recurrent similar symptoms with reported suicidal ideation prompting his neighbor to bring him to the ED for evaluation. Initial presentation vital signs included 08/31/2023 T95.4 Temporally, heart rate 84, BP 126/66, respiratory rate 16, 100% on room air, most recent repeat vital signs include 09/03/2023 T97.2 Temporally, heart rate 62, BP 118/64, respiratory rate 18, 100% on room air, presentation labs 08/31/2023 with CBC with WBC 12.1, hemoglobin 8.5, MCV 98.1, platelet 25 with left shift, coags with PT 19, INR 1.6, BMP with chloride 95, BUN/creatinine 17/4.95, glucose 116, hepatic profile not marked appearing, salicylates less than 1.7, acetaminophen less than 2, ethyl alcohol less than 3, EKG with sinus rhythm with no acute evidence of ischemia, 09/03/2023 BMP with chloride 97, BUN/creatinine 64/10.50. ED has discussed case with Dr. Gan/Dr. Mcdonald during his presentation for HD as patient is still awaiting psychiatric facility placement where he may also have HD performed. [facility] Medical History Diabetes mellitus type 2 in obese ESRD (end stage renal disease) on dialysis Hypertension NSTEMI (non-ST elevated myocardial infarction) Renal failure, chronic Spitting suture End stage renal disease COVID Insulin dependent diabetes mellitus History of IBS Blackout ESRD (end stage renal disease) on dialysis (~09/04/23) Chronic kidney failure Congestive heart failure (CHF) Coronary artery disease Dupuytrens contracture Problem with dialysis access Trigger finger Loss of hearing Wears glasses Anxiety Pressure ulcer History of renal disease High cholesterol DVT (deep venous thrombosis) Loss of consciousness Syncope Dietary restriction Gastric reflux Former smoker CPAP (continuous positive airway pressure) dependence Shortness of breath on exertion History of pain when walking History of edema Hx of echocardiogram History of stress test Pulmonary hypertension Cardiology follow-up encounter Transfusion (red blood cell) associated hemochromatosis Dialysis catheter clot or failure Chronic renal failure, stage 5 Hemodialysis patient Atrial fibrillation Cdybv-vv-kplisht kidney injury Acute exacerbation of CHF (congestive heart failure) (HFpEF) heart failure with preserved ejection fraction Anemia Chest pain Ulcer of left lower extremity with fat layer exposed Colonization status Malnutrition Delayed wound healing Hammer toe of left foot Type 2 diabetes mellitus with diabetic polyneuropathy Other specified peripheral vascular diseases Edema of left lower leg due to peripheral venous insufficiency Equinus contracture of left ankle Chronic 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 Diastolic CHF, acute CHF (congestive heart failure) History of DVT of lower extremity Type 2 diabetes mellitus Morbid obesity Depression Home Medications ?Medication ?Instructions ?Recorded ?Last Taken ?Type buspirone 10 mg tablet 15 mg PO BID depression 12/02/16 01/05/22 History calcium acetate(phosphat bind) 667 1,334 - 2,001 mg PO TIDCM 03/07/21 01/05/22 History mg capsule supplement nitroglycerin 0.4 mg sublingual 0.4 mg sublingual Q5M PRN chest 12/30/21 01/06/22 Rx tablet pain #25 tabs pantoprazole 40 mg tablet,delayed 40 mg PO DAILY GERD 01/06/22 01/05/22 History release dicyclomine 20 mg tablet 20 mg PO TID 07/29/22 Unknown History glucagon 1 mg injection kit 1 mg subcut PRN PRN Hypoglycemia 07/29/22 Unknown History midodrine 5 mg tablet 20 mg PO TID 07/29/22 11/21/22 History venlafaxine 150 mg 150 mg PO DAILY 07/29/22 Unknown History capsule,extended release 24 hr (Effexor XR) warfarin 10 mg tablet 10 mg PO DAILY 05/01/23 04/28/23 History atorvastatin 40 mg tablet (Lipitor) 40 mg PO DAILY 08/20/23 Unknown History furosemide 40 mg tablet (Lasix) 40 mg PO DAILY 08/20/23 Unknown History gabapentin 600 mg tablet 600 mg PO Q12H 08/20/23 Unknown History insulin NPH isoph U-100 human 100 18 unit subcut QPM 08/20/23 Unknown History unit/mL (3 mL) subcutaneous pen (Humulin N NPH U-100 Insulin KwikPen) vitamin B complex-vitamin C-folic 1 tab PO DAILY 08/20/23 Unknown History acid 0.8 mg tablet (Renal-Meño) amitriptyline 10 mg tablet 10 mg PO BID 09/01/23 Unknown History insulin NPH isoph U-100 human 100 5 unit subcut DAILY 09/01/23 Unknown History unit/mL (3 mL) subcutaneous pen (Humulin N NPH U-100 Insulin KwikPen) Allergy/AdvReac Type Severity Reaction Status Date / Time cephalexin Allergy Hives Verified 09/03/23 14:20 Penicillins Allergy Hives Verified 09/03/23 14:20 Family History Mother Diabetes Heart disease Hypertension Father No problems noted. Surgical History History of quadruple bypass History of colonoscopy History of surgery History of arteriovenostomy for renal dialysis (~07/2020) History of tonsillectomy and adenoidectomy History of carpal tunnel surgery of right wrist History of carpal tunnel surgery of left wrist Social History household members: none housing: house Smoking Status: Former smoker how long ago did patient quit smoking: Quit 2000. alcohol intake: never substance use type: does not use ROS ROS Narrative Admission Review of Systems: CONSTITUTIONAL: No weight loss, fever, chills, + weakness or fatigue. HEENT: Eyes: No visual loss, blurred vision, double vision or yellow sclerae. Ears, Nose, Throat: No hearing loss, sneezing, congestion, runny nose or sore throat. SKIN: No rash or itching, lesions, wounds except + chronic venous stasis skin changes, ongoing issues with chronic wounds. CARDIOVASCULAR: No chest pain, chest pressure or chest discomfort, palpitations, edema, orthopnea, syncopal events. RESPIRATORY: No shortness of breath, cough or sputum, wheezing, hemoptysis. GASTROINTESTINAL: No anorexia, nausea, vomiting or diarrhea, abdominal pain, melena, BRBPR. GENITOURINARY: No dysuria, frequency, urgency or retention. NEUROLOGICAL: No headache, dizziness, syncope, paralysis, ataxia, numbness or tingling in the extremities, focal weakness, change in bowel or bladder control, seizure. MUSCULOSKELETAL: + muscle, back pain, joint pain or stiffness. HEMATOLOGIC: + Chronic anemia, easy bleeding/bruising. LYMPHATICS: No enlarged nodes. No history of splenectomy. PSYCHIATRIC: + History of anxiety and depression, suicidal ideation, prior suicide attempt. ENDOCRINOLOGIC: No reports of sweating, cold or heat intolerance. No polyuria or polydipsia. ALLERGIES: + History of hives. Vital Signs Vital Signs Vital Signs: 09/03/23 05:00 09/03/23 11:55 09/03/23 18:40 Temperature 98.0 F 97.5 F L 97.2 F L Temperature Source Oral Temporal Temporal Pulse Rate 65 73 62 Respiratory Rate 16 16 18 Blood Pressure 100/48 L 130/68 H 118/67 Blood Pressure Mean 65 88 84 Pulse Ox 96 98 100 Oxygen Delivery Method Room Air Room Air Room Air Weight Weight: 266 lb Body Mass Index (BMI) 40.4 Physical Exam Narrative Physical Examination: General: Awake, alert, oriented x 3 and cooperative, lying in the ED bed, no acute distress, fatigued. Skin: Normal color, normal turgor, no icterus, no cyanosis except occasional staged ecchymoses, abrasion, bilateral lower extremity venous stasis skin changes HEENT: AT/NC, EOMI, PERRLA, MMM, no carotid bruits or JVD noted; however thickened neck as well as hendrix makes evaluation difficult. Lungs: Mildly diminished, greater bases, poor effort, no rales, ronchi or wheezing. Heart: Regular rate and rhythm; no gallop, rub audible. Abdomen: Soft, morbidly obese, NTTP, ND, normal BS, no appreciated HSM. Extremities: No cyanosis, no clubbing, bilateral ankle to distal hope not markedly pitting edema, see skin. Neurological: Patient awake, alert, oriented as noted, cognitive function intact; pupils equally reactive to light and accommodation, cranial nerves grossly normal, moving all 4 extremities, no focal deficits, strength preserved. Psychiatric: Affect appears fatigued, does have underlying anxiety and depression, presenting because of suicidal ideations and worsening mood disorder with pending psychiatric facility placement. Results Lab / Micro Data 08/31/23 20:12 09/03/23 07:03 Labs: Laboratory Results - last 24 hr 09/03/23 07:03: Sodium 136, Potassium 4.2, Chloride 97 L, Carbon Dioxide 31.0, Anion Gap 8, BUN 64 H, Creatinine 10.50 H*, Estim Creat Clear Calc 9.21, Est GFR (MDRD) Af Amer 6 L, Est GFR (MDRD) Non-Af 5 L, BUN/Creatinine Ratio 6.1 L, Glucose 89, Calcium 9.6 09/03/23 10:14: POC Glucose 128 H 09/03/23 21:58: POC Glucose 192 H Assessment & Plan Assessment/Plan (1) Suicidal ideation: (2) ESRD (end stage renal disease) on dialysis: PLAN: Plan The patient is a 63 y/o M w/ PMHx: ESRD on HD T//Mon, CAD s/p CABG x 4, HFpEF, HTN, HLD, Diabetes mellitus type II with history of diabetic wounds/pressure ulcers with chronic neuropathy, Chronic anemia/AOCD, Anxiety and Depression with prior Suicide attempt, ARRON on CPAP, Former tobacco use, Hx VTE (DVT), PAF, Morbid obesity who initially presented to the [facility] ED on 08/31/2023 with history of significantly increasing depression and feelings of worthlessness with recent ED evaluation with overdose of BuSpar with transition to psychiatric facility in [place] at that time recently released the Monday prior to his current presentation approximately 1 week with again recurrent similar symptoms with reported suicidal ideation prompting his neighbor to bring him to the ED for evaluation. #1. ESRD on HD T//Mon, missed HD: Given need for admission in order to be able to perform dialysis to be able to transition to psychiatric facility as still awaiting placement for bed where HD availability and option, will admit to medical surgical floor, will consult nephrology who is already aware of this patient's case with planned dialysis 09/04/2023, will obtain repeat a.m. BMP, magnesium and phosphorus levels. #2. Anxiety and Depression with prior Suicide attempt currently high risk with suicidal ideation with need for repeat psychiatric facility placement on suicide precautions: Patient currently denying suicidal ideation but significant recent attempt and hospitalization only discharged 1 week prior to his most current presentation 08/31/2023, will continue patient home Effexor, BuSpar and amitriptyline regimen. Once dialysis has been performed per recommendation of crisis will need to then be still placed at facility where dialysis access is allowed thus Crisis consultation will be continued. Patient has throughout his stay been maintained on suicide precautions and these will be continued. #3. CAD: S/p CABG x 4, continue Coumadin with INR trending with repeat level upon admission as noted, continue statin, not on beta-ashlee therapy nor SRINIVASA inhibitor/ARB.: #4. HFpEF: Most recent echocardiogram noted 12/23/2021 with mild concentric LVH, EF 55%, mild posterior hypokinesis, severely enlarged LA, will continue Coumadin with INR trending, statin therapy, Lasix, not on beta-blockers or SRINIVASA inhibitor/ARB. Currently appears compensated, planned HD 09/04/2023. #5. Hypertension: Continue home regimen including Lasix, not on SRINIVASA inhibitor/ARB or beta-ashlee therapy of note, PRN hydralazine. #6. Hyperlipidemia: We will continue patient on statin therapy. #7. Diabetes mellitus type II with history of diabetic wounds/pressure ulcers with chronic neuropathy: Will continue home insulin regimen, ADA diet, accu checks w/ ISS. #8. Chronic anemia/AOCD: 08/31/2023 hemoglobin 8.5, MCV 98.1 at that time, will repeat CBC upon admission now, baseline hemoglobin more recently has appeared to be 8-10 range, continue to trend as needed. #9. Hx VTE: History of previous DVT, we will continue patient on Coumadin regimen with repeat INR now as last done upon presentation 08/31/2023 and subtherapeutic at that time 1.6. #10. PAF: We will continue patient home Coumadin with INR trending with level now given last done 08/31/2023 subtherapeutic at that time 1.6, currently not on rate or rhythm agent. #11. Morbid obesity: Weight loss and lifestyle changes encouraged. #12. Chronic orthostasis: We will continue patient home midodrine regimen, worse with HD. #13. Former tobacco use: Encourage continued tobacco cessation. #14. ARRON: Will maintain on CPAP nightly. #15. GERD: Continue home PPI. #16. DVT prophylaxis: Will continue home coumadin regimen, will obtain repeat INR, last done presentation 08/31/23 and subtherapeutic at that time INR 1.6. #17. CODE status: Patient does not have healthcare power of roof mechanic or living will in place but notes he would want his nephew to be his decision-maker if necessary. Discussed CODE status at length including difference between FULL code, DNR-CCA and DNR-CC status given patient's significant medical history although conflicted discussion given patient presentation with anxiety and depression and suicidal ideation but he actually opted at this point for full CODE STATUS without any urging. Charges/Coding Visit Charges Inpatient E&M: 11105 Init Hosp L3
--- NOTE | 2023-09-04 04:15 | NURSING ---
In light of new Crisis consult; this RN spoke with Cece from Crisis at this time to notify of need for ongoing evaluation. Notified that patient admitted to Progressive Care Unit with plan for HD today. Cece states waiting to hear back from a couple of facilities; but states does not anticipate hearing back before 0800 today.
--- NOTE | 2023-09-04 04:49 | CPS ---
Patient stated he is not compliant with home PAP therapy and does not wish to wear PAP during his stay here
[2023-09-04 05:50] LABS: Absolute Lymphocyte Count 1.77 X10^3/uL (0.83-4.51); Absolute Neutrophil Count 9.1 X10^3/uL (2.0-7.7); Basophil# 0.04 X10^3/uL; Basophil% 0.3 % (0-1); Eosinophil# 0.24 X10^3/uL; Hematocrit 23.9 % (40-54); Hemoglobin 7.7 g/dL (13.0-16.5); Lymphocyte # 1.77 X10^3/ul (0.83-4.51); Lymphocyte % 14.8 % (19-41); Mean Corp Hgb Conc 32.2 g/dL (32-36); Mean Corpuscular Hgb 32.9 pg (27.0-32.0); Mean Corpuscular Volume 102.1 fL (80-94); Monocyte# 0.77 X10^3/uL; Monocyte% 6.4 % (0-10); NRBC Flagged by Analyzer 0 % (0-5); Neutrophil # 9.06 X10^3/uL (2.7-7.7); Platelet Count 233 K/mm3 (150-450); RBC Distribution Width CV 16.6 % (11.6-14.6); RBC Distribution Width SD 61.1 fl (35.1-43.9); Red Blood Count 2.34 M/mm3 (4.6-6.2); White Blood Count 11.9 K/mm3 (4.4-11.0)
[2023-09-04 06:17] LABS: International Normalized Ratio 1.6; Prothrombin Time (Protime)PT. 19.1 SECONDS (11.7-14.9)
[2023-09-04] MEDS: Dicyclomine 10 MG Capsule 20 MG PO ×3 (06:46→16:59)
[2023-09-04 06:47] LABS: ALB/GLOB Ratio 0.8 RATIO (0.9-2.4); AST(SGOT) 18 U/L (15-37); Alanine Aminotransfer ALT/SGPT 19 U/L (16-61); Albumin, Serum 3.2 g/dL (3.2-5.0); Alkaline Phosphatase 63 U/L (45-117); Anion Gap 10 (5-15); BUN 77 mg/dL (7-18); BUN/Creat Ratio 6.3 RATIO (10-20); Calcium,Total 9.3 mg/dL (8.5-10.1); Chloride 97 mmol/L (98-107); EST Glomerular Filtration Rate 5 mL/min (>60); Est Glom Filt Rate - Afr Amer 5 mL/min (>60); Estimated Creatinine Clearance 7.97 ml/min; Globulin 3.9 g/dL (2.2-4.2); Glucose 71 mg/dL (74-106); Magnesium 2.6 mg/dL (1.6-2.6); Phosphorus 6.6 mg/dL (2.5-4.9); Potassium 4.1 mmol/L (3.5-5.1); Protein, Total 7.1 g/dL (6.4-8.2); Sodium Level 136 mmol/L (136-145)
[2023-09-04 07:09] LABS: Bedside Glucose 77 mg/dL (74-106)
--- NOTE | 2023-09-04 08:34 | CASEMGMT ---
VIKASH received a call from Aaliyah with [facility]. Aaliyah was inquiring if patient is still in need of placement. VIKASH let Aaliyah know patient is still in need of placement. Aaliyah will pass along the referral to their physician. Ratna Correia JEWEL BEARING FACERMae EUCEDA
--- NOTE | 2023-09-04 10:36 | CASEMGMT ---
VIKASH received a return call from Aaliyah with [facility]. Their doctor is declining patient due to the fact that patient states he is adamant he will not follow through on his suicidal ideations. VIKASH called crisis and notified Angelica. Angelica said they are going to contact [facility]. Ratna Correia SUPERVISOR ASSEMBLY DEPARTMENT [place]
[2023-09-04] MEDS: Furosemide 40 MG Tablet PO (10:56)
[2023-09-04] MEDS: Venlafaxine XR 150 MG Capsule PO (10:56)
[2023-09-04] MEDS: busPIRone 15 MG TABLET PO (10:56)
[2023-09-04] MEDS: Atorvastatin Calcium 40 MG Tablet PO (10:56)
[2023-09-04] MEDS: Amitriptyline 10 MG Tablet PO (10:56)
[2023-09-04] MEDS: Folic Acid/Vitamin B Comp W-C 1 Capsule 1 CAP PO (10:57)
[2023-09-04] MEDS: Pantoprazole Sodium 40 MG Tablet PO (10:57)
[2023-09-04] MEDS: Midodrine HCl 5 MG Tablet 20 MG PO ×2 (10:57→17:02)
[2023-09-04] MEDS: Calcium Acetate 667 MG Capsule PO ×2 (10:57→17:04)
[2023-09-04] MEDS: Insulin Lispro 100 UNIT/ML INSULN.PEN SC (10:58)
[2023-09-04 11:54] LABS: Bedside Glucose 170 mg/dL (74-106)
[2023-09-04] MEDS: 0.9% Normal Saline 1,000 ML IV.SOLN. 1000 ML OPERA.SITE (11:58)
[2023-09-04] MEDS: PureFlow B 2K Dialysis Soln 1 BAG 6 BAG PF (11:59)
--- NOTE | 2023-09-04 12:26 | PCM.CONS.R ---
Assessment & Plan Assessment/Plan (1) ESRD (end stage renal disease) on dialysis: PLAN: Plan This is a pleasant 63-year-old male with past medical history significant for ESRD on hemodialysis Monday, last dialyzed of last week, also recent history of suicidal attempt where he had been hospitalized in psychiatric unit at [facility]. Patient currently denying suicidal ideation but because of recent suicidal attempt and hospitalization it is recommended for patient to be placed at psychiatric facility with dialysis. Will plan for hemodialysis today on 2K bath removing fluid aiming to EDW. Likely will maintain patient on Monday dialysis schedule while in hospital. Patient does have history of anemia of chronic disease, will give SHERI with dialysis and monitor hemoglobin trends. Further orders forthcoming as hospitalization evolves, thank you for allowing us to participate in the care of Mr. Suazo. HPI Consult Data Date of Consult: 09/04/23 HPI Narrative HPI Narrative: MAREK USAZO, is a 63 M with past medical history significant for ESRD on hemodialysis at [facility] Monday (had been followed by Dr. Acharya) who was brought to the emergency room as his neighbor was concerned as patient was noted to have worsening suicidal ideation. Patient has history of anxiety and depression along with recent suicidal ideation, was in a psychiatric facility in [place] as patient recently overdosed on BuSpar. Today patient denies any complaints. He states no family in [place] but does have a nephew in [place]. Patient states his last hemodialysis session was on . He denies any nausea, vomiting or diarrhea. [facility] Medical History Diabetes mellitus type 2 in obese ESRD (end stage renal disease) on dialysis Hypertension NSTEMI (non-ST elevated myocardial infarction) Renal failure, chronic Spitting suture End stage renal disease COVID Insulin dependent diabetes mellitus History of IBS Blackout ESRD (end stage renal disease) on dialysis (~09/04/23) Chronic kidney failure Congestive heart failure (CHF) Coronary artery disease Dupuytrens contracture Problem with dialysis access Trigger finger Loss of hearing Wears glasses Anxiety Pressure ulcer History of renal disease High cholesterol DVT (deep venous thrombosis) Loss of consciousness Syncope Dietary restriction Gastric reflux Former smoker CPAP (continuous positive airway pressure) dependence Shortness of breath on exertion History of pain when walking History of edema Hx of echocardiogram History of stress test Pulmonary hypertension Cardiology follow-up encounter Transfusion (red blood cell) associated hemochromatosis Dialysis catheter clot or failure Chronic renal failure, stage 5 Hemodialysis patient Atrial fibrillation Dnucd-rb-hwjdkvn kidney injury Acute exacerbation of CHF (congestive heart failure) (HFpEF) heart failure with preserved ejection fraction Anemia Chest pain Ulcer of left lower extremity with fat layer exposed Colonization status Malnutrition Delayed wound healing Hammer toe of left foot Type 2 diabetes mellitus with diabetic polyneuropathy Other specified peripheral vascular diseases Edema of left lower leg due to peripheral venous insufficiency Equinus contracture of left ankle Chronic 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 Diastolic CHF, acute CHF (congestive heart failure) History of DVT of lower extremity Type 2 diabetes mellitus Morbid obesity Depression Home Medications ?Medication ?Instructions ?Recorded ?Last Taken ?Type buspirone 10 mg tablet 15 mg PO BID depression 12/02/16 01/05/22 History calcium acetate(phosphat bind) 667 1,334 - 2,001 mg PO TIDCM 03/07/21 01/05/22 History mg capsule supplement nitroglycerin 0.4 mg sublingual 0.4 mg sublingual Q5M PRN chest 12/30/21 01/06/22 Rx tablet pain #25 tabs pantoprazole 40 mg tablet,delayed 40 mg PO DAILY GERD 01/06/22 01/05/22 History release dicyclomine 20 mg tablet 20 mg PO TID 07/29/22 Unknown History glucagon 1 mg injection kit 1 mg subcut PRN PRN Hypoglycemia 07/29/22 Unknown History midodrine 5 mg tablet 20 mg PO TID 07/29/22 11/21/22 History venlafaxine 150 mg 150 mg PO DAILY 07/29/22 Unknown History capsule,extended release 24 hr (Effexor XR) warfarin 10 mg tablet 10 mg PO DAILY 05/01/23 04/28/23 History atorvastatin 40 mg tablet (Lipitor) 40 mg PO DAILY 08/20/23 Unknown History furosemide 40 mg tablet (Lasix) 40 mg PO DAILY 08/20/23 Unknown History gabapentin 600 mg tablet 600 mg PO Q12H 08/20/23 Unknown History insulin NPH isoph U-100 human 100 18 unit subcut QPM 08/20/23 Unknown History unit/mL (3 mL) subcutaneous pen (Humulin N NPH U-100 Insulin Diane) vitamin B complex-vitamin C-folic 1 tab PO DAILY 08/20/23 Unknown History acid 0.8 mg tablet (Renal-Meño) amitriptyline 10 mg tablet 10 mg PO BID 09/01/23 Unknown History insulin NPH isoph U-100 human 100 5 unit subcut DAILY 09/01/23 Unknown History unit/mL (3 mL) subcutaneous pen (Humulin N NPH U-100 Insulin KwikPen) Allergy/AdvReac Type Severity Reaction Status Date / Time cephalexin Allergy Hives Verified 09/03/23 14:20 Penicillins Allergy Hives Verified 09/03/23 14:20 Family History Mother Diabetes Heart disease Hypertension Father No problems noted. Surgical History History of quadruple bypass History of colonoscopy History of surgery History of arteriovenostomy for renal dialysis (~07/2020) History of tonsillectomy and adenoidectomy History of carpal tunnel surgery of right wrist History of carpal tunnel surgery of left wrist Social History household members: none housing: house Smoking Status: Former smoker how long ago did patient quit smoking: Quit 2000. alcohol intake: never substance use type: does not use ROS ROS Narrative As in HPI and past medical history Physical Exam Narrative Alert and oriented x 3, no apparent distress S1, S2, RRR Lung sounds clear Abdomen soft No pitting edema AV fistula right forearm positive thrill and bruit Lab / Micro Data 09/04/23 05:30 09/04/23 05:30 Labs: Laboratory Results - last 24 hr 09/03/23 21:58: POC Glucose 192 H 09/04/23 05:30: WBC 11.9 H, RBC 2.34 L, Hgb 7.7 L, Hct 23.9 L, MCV 102.1 H, MCH 32.9 H, MCHC 32.2, RDW Std Deviation 61.1 H, RDW Coeff of Kassandra 16.6 H, Plt Count 233, MPV 10.0, Immature Gran % (Auto) 0.500, Neut % (Auto) 76.0 H, Lymph % (Auto) 14.8 L, Burnet % (Auto) 6.4, Eos % (Auto) 2.0, Baso % (Auto) 0.3, Absolute Neuts (auto) 9.1 H, Absolute Lymphs (auto) 1.77, Nucleated RBC % 0, PT 19.1 H, INR 1.6, Sodium 136, Potassium 4.1, Chloride 97 L, Carbon Dioxide 29.0, Anion Gap 10, BUN 77 H, Creatinine 12.20 H*, Estim Creat Clear Calc 7.97, Est GFR (MDRD) Af Amer 5 L, Est GFR (MDRD) Non-Af 5 L, BUN/Creatinine Ratio 6.3 L, Glucose 71 L, Calcium 9.3, Phosphorus 6.6 H, Magnesium 2.6, Total Bilirubin 0.40, AST 18, ALT 19, Alkaline Phosphatase 63, Total Protein 7.1, Albumin 3.2, Globulin 3.9, Albumin/Globulin Ratio 0.8 L 09/04/23 06:43: POC Glucose 77 09/04/23 11:04: POC Glucose 170 H
[2023-09-04] MEDS: Insulin NPH Human 100 UNITS/ML PEN SC (12:27)
[2023-09-04] MEDS: Gabapentin 300 MG Capsule 600 MG PO (12:27)
--- NOTE | 2023-09-04 15:59 | CASEMGMT ---
VIKASH received a call from Luanne with [facility]. They have accepted patient. Lunane said they will need a pink slip or voluntary papers signed. VIKASH asked that she fax the voluntary papers to . Luanne said once the papers are signed fax them back to [facility] and they will call with a bed assignment and phone number for report. VIKASH received the fax from [facility]. VIKASH met with patient. Introduced self and role at [facility]. VIKASH told patient [facility] has accepted him and would he be willing to sign voluntarily. Patient said he would sign voluntarily. SW had patient sign both papers. VIKASH faxed papers back to [facility]. VIKASH updated footwear production machine operator and charge accounts audit clerk that VIKASH faxed papers and [facility] will call with room assignment and phone number for report. VIKASH called [facility] and notified crisis that [facility] accepted patient and he will go today. Ratna EUCEDA
--- NOTE | 2023-09-04 16:00 | DCINST_ITS ---
Discharge Instructions Diet Discharge Diet: Renal Diet Follow Up Care Test Results: Test results from this visit will be discussed in further detail at your follow- up appointment, if applicable. Discharge Plan Admission Admit Date/Time: 09/04/23 02:51 Primary Reason for Your Visit: Suicidal ideation Attending Provider: Zahida Wynn Primary Care Provider: Yola Ng Consulting Providers: Lucia Horton; Juan Parra Instructions Patient Instructions: Counseling for Depression Additional Instructions / Restrictions: take 11mg coumadin daily Discharge Orders/Prescriptions Prescriptions: Continued buspirone 10 MG tablet 15 mg PO BID Patient Comments: anxiety calcium acetate(phosphat bind) 667 mg capsule 1,334 - 2,001 mg PO TIDCM Patient Comments: TAKE 1 CAPSULE DAILY nitroglycerin 0.4 mg tablet, sublingual 0.4 mg sublingual Q5M PRN (Reason: chest pain) Qty: 25 0RF Rx Instructions: do not exceed 3 doses per episode pantoprazole 40 mg tablet,delayed release (DR/EC) 40 mg PO DAILY glucagon 1 mg Kit 1 mg subcut PRN PRN (Reason: Hypoglycemia) midodrine 5 mg Tablet 20 mg PO TID Rx Instructions: do not give last dose of day after 6PM or within 4 hrs of bedtime venlafaxine [Effexor XR] 150 mg Capsule,Extended Release 24hr 150 mg PO DAILY dicyclomine 20 mg Tablet 20 mg PO TID atorvastatin [Lipitor] 40 mg tablet 40 mg PO DAILY gabapentin 600 mg tablet 600 mg PO Q12H Humulin N NPH Insulin KwikPen 100 unit/mL (3 mL) insulin pen 18 unit subcut QPM furosemide [Lasix] 40 mg tablet 40 mg PO DAILY Renal-Meño 0.8 mg tablet 1 tab PO DAILY amitriptyline 10 mg tablet 10 mg PO BID Humulin N NPH Insulin KwikPen 100 unit/mL (3 mL) insulin pen 5 unit subcut DAILY warfarin 10 mg tablet 10 mg PO DAILY Qty: 30 0RF Patient Comments: Take 12.5mg daily or as directing pending blood testing Rx Instructions: take 11mg coumadin daily Changed warfarin 1 mg tablet See Rx Instructions .ROUTE .COMPLEX Qty: 30 0RF Rx Instructions: take 11mg coumadin daily Referrals / Follow Up: Yola Ng MD [Primary Care Provider] - Within 1 Week Disposition Disposition (needs filled in before D/C Order can be placed): Psychiatric Hospital or Unit
--- NOTE | 2023-09-04 16:20 | DS.PCM_ITS ---
Providers Date of Admission: 09/04/23 Date of Discharge: 09/04/23 Primary Care Physician: Dr. Yola Ng MD Consultations 09/04/23 06:27 Consult: Nephrology Routine Consulting Provider: Juan Parra Reason for Consult: ESRD on HD, needs HD, working on psych placement still EMERGENT Consult: No MD Notified: Yes Date Notified: 09/04/23 Time Notified: 07:43 Method of Notification: Text Reason For Visit: ANXIETY/DEPRESSION WITH SUICIDAL IDEATION NEEDS HD Diagnosis Discharge Diagnosis (1) ESRD (end stage renal disease) on dialysis: Status: Acute Code(s): N18.6 - End stage renal disease; Z99.2 - Dependence on renal dialysis Plan #ESRD ON HD #CAD s/p CABG #HFpEF #HTN #DMII #AOCD #Anx/depression w/ prior suicide attempt #ARRON #Hx VTE #Morbid obesity Medications at Discharge Home Medications buspirone 10 mg tablet 15 mg PO BID depression 12/02/16 calcium acetate(phosphat bind) 667 mg capsule 1,334 - 2,001 mg PO TIDCM supplement 03/07/21 nitroglycerin 0.4 mg sublingual tablet 0.4 mg sublingual Q5M PRN chest pain #25 tabs 12/30/21 pantoprazole 40 mg tablet,delayed release 40 mg PO DAILY GERD 01/06/22 dicyclomine 20 mg tablet 20 mg PO TID 07/29/22 glucagon 1 mg injection kit 1 mg subcut PRN PRN Hypoglycemia 07/29/22 midodrine 5 mg tablet 20 mg PO TID 07/29/22 venlafaxine 150 mg capsule,extended release 24 hr (Effexor XR) 150 mg PO DAILY 07/29/22 atorvastatin 40 mg tablet (Lipitor) 40 mg PO DAILY 08/20/23 furosemide 40 mg tablet (Lasix) 40 mg PO DAILY 08/20/23 gabapentin 600 mg tablet 600 mg PO Q12H 08/20/23 insulin NPH isoph U-100 human 100 unit/mL (3 mL) subcutaneous pen (Humulin N NPH U-100 Insulin KwikPen) 18 unit subcut QPM 08/20/23 vitamin B complex-vitamin C-folic acid 0.8 mg tablet (Renal-Meño) 1 tab PO DAILY 08/20/23 amitriptyline 10 mg tablet 10 mg PO BID 09/01/23 insulin NPH isoph U-100 human 100 unit/mL (3 mL) subcutaneous pen (Humulin N NPH U-100 Insulin KwikPen) 5 unit subcut DAILY 09/01/23 warfarin 1 mg tablet See Rx Instructions .Route .COMPLEX blood #30 tabs 09/04/23 warfarin 10 mg tablet 10 mg PO DAILY #30 tabs 09/04/23 Hospital Course Summary of Care Provided Hospital Course: Per HPI: The patient is a 63 y/o M w/ PMHx: ESRD on HD T//Mon, CAD s/p CABG x 4, HFpEF, HTN, HLD, Diabetes mellitus type II with history of diabetic wounds/pressure ulcers with chronic neuropathy, Chronic anemia/AOCD, Anxiety and Depression with prior Suicide attempt, ARRON on CPAP, Former tobacco use, Hx VTE (DVT), PAF, Morbid obesity who initially presented to the [facility] ED on 08/31/2023 with history of significantly increasing depression and feelings of worthlessness with recent ED evaluation with overdose of BuSpar with transition to psychiatric facility in [place] at that time recently released the Monday prior to his current presentation approximately 1 week with again recurrent similar symptoms with reported suicidal ideation prompting his neighbor to bring him to the ED for evaluation. Initial presentation vital signs included 08/31/2023 T95.4 Temporally, heart rate 84, BP 126/66, respiratory rate 16, 100% on room air, most recent repeat vital signs include 09/03/2023 T97.2 Temporally, heart rate 62, BP 118/64, respiratory rate 18, 100% on room air, presentation labs 08/31/2023 with CBC with WBC 12.1, hemoglobin 8.5, MCV 98.1, platelet 25 with left shift, coags with PT 19, INR 1.6, BMP with chloride 95, BUN/creatinine 17/4.95, glucose 116, hepatic profile not marked appearing, salicylates less than 1.7, acetaminophen less than 2, ethyl alcohol less than 3, EKG with sinus rhythm with no acute evidence of ischemia, 09/03/2023 BMP with chloride 97, BUN/creatinine 64/10.50. ED has discussed case with Dr. Gan/Dr. Mcdonald during his presentation for HD as patient is still awaiting psychiatric facility placement where he may also have HD performed.? INTERVAL HISTORY: Patient was dialyzed and this was uneventful, patient was able to be placed at [facility] for inpatient psychiatric treatment, no new or acute complaints on day of transfer. Patient did have subtherapeutic INR, he confirmed he is only taking 10 mg daily and given it is 1.6 will increase by 10 %/week and therefore advised patient take 11 mg daily and recheck and adjust as indicated. Will also need to continue dialysis Weight / BMI Weight Weight: 121.563 kg Body Mass Index (BMI) 40.6 ABG / Lab / Microbiology Data 09/04/23 05:30 09/04/23 05:30 Laboratory: Laboratory Results - last 24 hr 09/03/23 21:58: POC Glucose 192 H 09/04/23 05:30: WBC 11.9 H, RBC 2.34 L, Hgb 7.7 L, Hct 23.9 L, MCV 102.1 H, MCH 32.9 H, MCHC 32.2, RDW Std Deviation 61.1 H, RDW Coeff of Kassandra 16.6 H, Plt Count 233, MPV 10.0, Immature Gran % (Auto) 0.500, Neut % (Auto) 76.0 H, Lymph % (Auto) 14.8 L, [place] % (Auto) 6.4, Eos % (Auto) 2.0, Baso % (Auto) 0.3, Absolute Neuts (auto) 9.1 H, Absolute Lymphs (auto) 1.77, Nucleated RBC % 0, PT 19.1 H, INR 1.6, Sodium 136, Potassium 4.1, Chloride 97 L, Carbon Dioxide 29.0, Anion Gap 10, BUN 77 H, Creatinine 12.20 H*, Estim Creat Clear Calc 7.97, Est GFR (MDRD) Af Amer 5 L, Est GFR (MDRD) Non-Af 5 L, BUN/Creatinine Ratio 6.3 L, G lucose 71 L, Calcium 9.3, Phosphorus 6.6 H, Magnesium 2.6, Total Bilirubin 0.40, AST 18, ALT 19, Alkaline Phosphatase 63, Total Protein 7.1, Albumin 3.2, Globulin 3.9, Albumin/Globulin Ratio 0.8 L 09/04/23 06:43: POC Glucose 77 09/04/23 11:04: POC Glucose 170 H D/C Instructions Discharge Diet: Renal Diet Meaningful Use Info Meaningful Use Meaningful Use Diagnoses (Choose all that apply): None applicable Ischemic Stroke Statin Dosing Therapy Reference: STATIN DOSE THERAPY REFERENCE: * Patients > 75 years receive moderate or high dose statin therapy. * Patients 75 years or YOUNGER should receive HIGH intensity statin dose unless contraindicated. You will be required to document reason for non-treatment if statin daily dose does not meet guidelines. HIGH DOSE STATIN THERAPY DAILY Atorvastatin > than or = to 40 mg Rosuvastatin > than or = to 20 mg Amlodipine + Atorvastatin > than or = to 2.5/40 mg Ezetimibe + Simvastatin 10/80 mg Simvastatin 80mg Discharge Plan Admission Admit Date/Time: 09/04/23 02:51 Primary Reason for Your Visit: Suicidal ideation Attending Provider: Zahida Wynn Primary Care Provider: Yola Ng Consulting Providers: Lucia Horton; Juan Parra Instructions Patient Instructions: Counseling for Depression Additional Instructions / Restrictions: take 11mg coumadin daily Discharge Orders/Prescriptions Prescriptions: Continued buspirone 10 MG tablet 15 mg PO BID Patient Comments: anxiety calcium acetate(phosphat bind) 667 mg capsule 1,334 - 2,001 mg PO TIDCM Patient Comments: TAKE 1 CAPSULE DAILY nitroglycerin 0.4 mg tablet, sublingual 0.4 mg sublingual Q5M PRN (Reason: chest pain) Qty: 25 0RF Rx Instructions: do not exceed 3 doses per episode pantoprazole 40 mg tablet,delayed release (DR/EC) 40 mg PO DAILY glucagon 1 mg Kit 1 mg subcut PRN PRN (Reason: Hypoglycemia) midodrine 5 mg Tablet 20 mg PO TID Rx Instructions: do not give last dose of day after 6PM or within 4 hrs of bedtime venlafaxine [Effexor XR] 150 mg Capsule,Extended Release 24hr 150 mg PO DAILY dicyclomine 20 mg Tablet 20 mg PO TID atorvastatin [Lipitor] 40 mg tablet 40 mg PO DAILY gabapentin 600 mg tablet 600 mg PO Q12H Humulin N NPH Insulin KwikPen 100 unit/mL (3 mL) insulin pen 18 unit subcut QPM furosemide [Lasix] 40 mg tablet 40 mg PO DAILY Renal-Meño 0.8 mg tablet 1 tab PO DAILY amitriptyline 10 mg tablet 10 mg PO BID Humulin N NPH Insulin KwikPen 100 unit/mL (3 mL) insulin pen 5 unit subcut DAILY warfarin 10 mg tablet 10 mg PO DAILY Qty: 30 0RF Patient Comments: Take 12.5mg daily or as directing pending blood testing Rx Instructions: take 11mg coumadin daily Changed warfarin 1 mg tablet See Rx Instructions .ROUTE .COMPLEX Qty: 30 0RF Rx Instructions: take 11mg coumadin daily Referrals / Follow Up: Yola Ng MD [Primary Care Provider] - Within 1 Week Disposition Disposition (needs filled in before D/C Order can be placed): Psychiatric Hospital or Unit
[2023-09-04 17:04] LABS: Bedside Glucose 155 mg/dL (74-106)
== END 2023-09-04 20:00 | DRG 291 ==
LOC: ED 20:35 → PCU 09-04 03:03
PROVIDERS: Emergency Medicine; Admitting Provider Family Medicine; Emergency Provider Emergency Medicine; PCP Internal Medicine; Visit Provider Internal Medicine
DX: I13.2 Hypertensive heart and chronic kidney disease with heart failure and with stage 5 chronic kidney disease, or end stage renal disease (principal); N18.6 End stage renal disease; R45.851 Suicidal ideations; Z68.41 Body mass index [BMI] 40.0-44.9, adult; D63.8 Anemia in other chronic diseases classified elsewhere; I50.32 Chronic diastolic (congestive) heart failure; E11.22 Type 2 diabetes mellitus with diabetic chronic kidney disease; E66.01 Morbid (severe) obesity due to excess calories; E11.42 Type 2 diabetes mellitus with diabetic polyneuropathy; I48.0 Paroxysmal atrial fibrillation; Z79.4 Long term (current) use of insulin; E11.51 Type 2 diabetes mellitus with diabetic peripheral angiopathy without gangrene; F32.A Depression, unspecified; Z99.2 Dependence on renal dialysis; E78.00 Pure hypercholesterolemia, unspecified; I25.10 Atherosclerotic heart disease of native coronary artery without angina pectoris; G47.33 Obstructive sleep apnea (adult) (pediatric); K21.9 Gastro-esophageal reflux disease without esophagitis; F41.9 Anxiety disorder, unspecified; E87.6 Hypokalemia; I25.2 Old myocardial infarction; Z79.01 Long term (current) use of 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; Z79.899 Other long term (current) drug therapy; Z86.718 Personal history of other venous thrombosis and embolism; Z86.16 Personal history of COVID-19; Z87.891 Personal history of nicotine dependence; Z95.1 Presence of aortocoronary bypass graft; Z91.51 Personal history of suicidal behavior
CPT/HCPCS: 36415; 80048; 80053; 80329; 82077; 82962; 83735; 84100; 85025; 85610; 90937; 93005; 94668; 99252; 99285; J7030; G0257; G0463; G0480

== ENCOUNTER 2023-09-12 17:43 | Emergency (ER) | payer MEDICARE, SELFPAY ==
[2023-09-12] VITALS (11 sets, daily range): BP systolic 97–126; BP diastolic 53–108; PULSE 59–76; RESP 16–27; TEMP 36.1–36.6; O2SAT 91–100; BMI 43.6
--- NOTE | 2023-09-12 17:47 | EKG12_ITS ---
Test Reason : SYNCOPE Blood Pressure : / mmHG Vent. Rate : 076 BPM Atrial Rate : 076 BPM P-R Int : 184 ms QRS Dur : 110 ms QT Int : 446 ms P-R-T Axes : 078 083 138 degrees QTc Int : 501 ms Normal sinus rhythm Nonspecific ST and T wave abnormality Prolonged QT Abnormal ECG When compared with ECG of 31-AUG-2023 19:57, T wave inversion no longer evident in Anterior leads QT has lengthened Confirmed by OFELIA HARVEY, LISY ([id number]), editorial assistant ANDREINA CASTANO ([id number]) on 09/19/2023 2:07:45 PM Referred By: GAGAN/FRANCES Confirmed By:RICK GILBERT MD
--- NOTE | 2023-09-12 18:12 | EKG12_ITS ---
Test Reason : DYSRHYTHMIA Blood Pressure : / mmHG Vent. Rate : 037 BPM Atrial Rate : 000 BPM P-R Int : 000 ms QRS Dur : 164 ms QT Int : 544 ms P-R-T Axes : 000 137 055 degrees QTc Int : 427 ms Critical Test Result: Low HR , Arrhythmia Idioventricular rhythm Right bundle branch block Septal infarct , age undetermined Abnormal ECG Confirmed by DIANA HARVEY, LAURA ([id number]), tape editor ANDREINA CASTANO ([id number]) on 09/13/2023 10:22:07 AM Referred By: FRANCES Confirmed By:LAURA ORTIZ MD
[2023-09-12 18:20] LABS: Absolute Lymphocyte Count 1.02 X10^3/uL (0.83-4.51); Absolute Neutrophil Count 6.2 X10^3/uL (2.0-7.7); Basophil# 0.01 X10^3/uL; Basophil% 0.1 % (0-1); Eosinophil# 0.09 X10^3/uL; Eosinophils% 1.1 % (0-5); Hematocrit 23.5 % (40-54); Hemoglobin 7.7 g/dL (13.0-16.5); Lymphocyte # 1.02 X10^3/ul (0.83-4.51); Lymphocyte % 12.6 % (19-41); Mean Corp Hgb Conc 32.8 g/dL (32-36); Mean Corpuscular Hgb 34.5 pg (27.0-32.0); Mean Corpuscular Volume 105.4 fL (80-94); Mean Platelet Vol. 10.7 fl (6.2-12.0); Monocyte# 0.75 X10^3/uL; Monocyte% 9.3 % (0-10); NRBC Flagged by Analyzer 0 % (0-5); Neutrophil # 6.19 X10^3/uL (2.7-7.7); Neutrophil % 76.5 % (47-70); Platelet Count 238 K/mm3 (150-450); RBC Distribution Width CV 19.3 % (11.6-14.6); RBC Distribution Width SD 64.7 fl (35.1-43.9); Red Blood Count 2.23 M/mm3 (4.6-6.2); White Blood Count 8.1 K/mm3 (4.4-11.0)
--- NOTE | 2023-09-12 18:28 | CT_ITS ---
STUDY: CT BRAIN WITHOUT CONTRAST REASON FOR EXAM: Male, 63 years old. head injury RADIATION DOSAGE (If Supplied By Facility): CTDIvol = ( 44.99 ) mGy, DLP = ( 931.09 ) mGycm TECHNIQUE: Transaxial CT imaging of the brain was performed without administration of intravenous contrast material. Individualized dose optimization techniques were used for this CT. COMPARISON: No relevant priors. FINDINGS: Normal soft tissue structures. Normal calvarium. Calcific plaquing of the cavernous carotids. Mild atrophy and periventricular white matter ischemic changes Normal basal ganglia and thalami. Normal brainstem. Normal cerebellum. There is no intracranial hemorrhage. There are no findings of an acute ischemic infarction. Normal visualized paranasal sinuses. Postsurgical changes of the orbits CT/Brain/Head without Contrast IMPRESSION: Mild atrophy and periventricular white matter ischemic change. No evidence for acute intracranial hemorrhage Electronically Signed: Reilly Torres MD at 19:37 EDT ,
--- NOTE | 2023-09-12 18:28 | CT_ITS ---
STUDY: CT CERVICAL SPINE WITHOUT CONTRAST REASON FOR EXAM: Male, 63 years old. trauma RADIATION DOSAGE (If Supplied By Facility): CTDIvol = ( ) mGy, DLP = ( ) mGycm TECHNIQUE: High resolution transaxial imaging was performed without contrast material. Sagittal and coronal images were reconstructed. Individualized dose optimization techniques were used for this CT. COMPARISON: None FINDINGS: Normal craniovertebral junction. Normal anterior atlantoaxial articulation. Normal odontoid process. Loss of normal lordotic curvature possibly due to muscle spasm or positioning artifact.. Normal vertebral bodies and posterior osseous elements. C2-3: Normal endplates. Normal disc height and morphology. Normal central canal and intervertebral neuroforamina. C3-4: Normal endplates. Normal disc height and morphology. Normal central canal and intervertebral neuroforamina. C4-5: Normal endplates. Normal disc height and morphology. Normal central canal and intervertebral neuroforamina. C5-6: Narrowed disc space and endplate spurring. Normal central canal. Moderate bilateral neural foraminal stenosis secondary to bony hypertrophy. C6-7: Narrowed disc space and endplate spurring. Normal central canal. Mild bilateral neural foraminal encroachment secondary to bony hypertrophy C7-T1: Normal endplates. Narrowed disc space and normal disc morphology Normal central canal and intervertebral neuroforamina. Ossification noted in the posterior nuchal ligament CT/Spine Cervical without Contras IMPRESSION: Degenerative changes most severe at C5-6 and C6-7. No acute fracture or subluxation Electronically Signed: Reilly Torres MD at 19:47 EDT ,
[2023-09-12 18:29] LABS: International Normalized Ratio 2.1; Prothrombin Time (Protime)PT. 23.4 SECONDS (11.7-14.9)
--- NOTE | 2023-09-12 18:29 | EDS_ITS ---
HPI History of Present Illness Chief Complaint: Syncope Narrative Narrative: 63-year-old male presenting with episode of presumed syncope. He was found on the ground at a restaurant. He states he was in his normal state of health prior to this. He ate dinner and noted he had some gas pain. He went off his truck and took a couple of gas pills. He felt like he needed to use the restroom and went back in. The next he knows he was on the floor the bathroom. Patient denies severe headache, visual complaints, neck pain. He denies chest pain or shortness of breath before or afterwards. He has a history of end-stage renal disease on dialysis. Patient reports no history of seizure. Patient is on Coumadin with history of A-fib. Patient recently seen for suicidal thoughts/ideations but states he is not feeling that way today. [facility] Medical History Diabetes mellitus type 2 in obese ESRD (end stage renal disease) on dialysis Hypertension NSTEMI (non-ST elevated myocardial infarction) Renal failure, chronic Spitting suture End stage renal disease COVID Insulin dependent diabetes mellitus History of IBS Blackout ESRD (end stage renal disease) on dialysis (~09/04/23) Chronic kidney failure Congestive heart failure (CHF) Coronary artery disease Dupuytrens contracture Problem with dialysis access Trigger finger Loss of hearing Wears glasses Anxiety Pressure ulcer History of renal disease High cholesterol DVT (deep venous thrombosis) Loss of consciousness Syncope Dietary restriction Gastric reflux Former smoker CPAP (continuous positive airway pressure) dependence Shortness of breath on exertion History of pain when walking History of edema Hx of echocardiogram History of stress test Pulmonary hypertension Cardiology follow-up encounter Transfusion (red blood cell) associated hemochromatosis Dialysis catheter clot or failure Chronic renal failure, stage 5 Hemodialysis patient Atrial fibrillation Gepat-rr-[id number] kidney injury Acute exacerbation of CHF (congestive heart failure) (HFpEF) heart failure with preserved ejection fraction Anemia Chest pain Ulcer of left lower extremity with fat layer exposed Colonization status Malnutrition Delayed wound healing Hammer toe of left foot Type 2 diabetes mellitus with diabetic polyneuropathy Other specified peripheral vascular diseases Edema of left lower leg due to peripheral venous insufficiency Equinus contracture of left ankle Chronic 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 Diastolic CHF, acute CHF (congestive heart failure) History of DVT of lower extremity Type 2 diabetes mellitus Morbid obesity Depression Home Medications ?Medication ?Instructions ?Recorded ?Last Taken ?Type buspirone 10 mg tablet 15 mg PO BID depression 12/02/16 01/05/22 History calcium acetate(phosphat bind) 667 1,334 - 2,001 mg PO TIDCM 03/07/21 01/05/22 History mg capsule supplement nitroglycerin 0.4 mg sublingual 0.4 mg sublingual Q5M PRN chest 12/30/21 01/06/22 Rx tablet pain #25 tabs pantoprazole 40 mg tablet,delayed 40 mg PO DAILY GERD 01/06/22 01/05/22 History release dicyclomine 20 mg tablet 20 mg PO TID 07/29/22 Unknown History glucagon 1 mg injection kit 1 mg subcut PRN PRN Hypoglycemia 07/29/22 Unknown History midodrine 5 mg tablet 20 mg PO TID 07/29/22 11/21/22 History venlafaxine 150 mg 150 mg PO DAILY 07/29/22 Unknown History capsule,extended release 24 hr (Effexor XR) atorvastatin 40 mg tablet (Lipitor) 40 mg PO DAILY 08/20/23 Unknown History furosemide 40 mg tablet (Lasix) 40 mg PO DAILY 08/20/23 Unknown History gabapentin 600 mg tablet 600 mg PO Q12H 08/20/23 Unknown History insulin NPH isoph U-100 human 100 18 unit subcut QPM 08/20/23 Unknown History unit/mL (3 mL) subcutaneous pen (Humulin N NPH U-100 Insulin KwikPen) vitamin B complex-vitamin C-folic 1 tab PO DAILY 08/20/23 Unknown History acid 0.8 mg tablet (Renal-Meño) amitriptyline 10 mg tablet 10 mg PO BID 09/01/23 Unknown History insulin NPH isoph U-100 human 100 5 unit subcut DAILY 09/01/23 Unknown History unit/mL (3 mL) subcutaneous pen (Humulin N NPH U-100 Insulin KwikPen) warfarin 1 mg tablet See Rx Instructions .Route 09/04/23 Unknown Rx .COMPLEX blood #30 tabs warfarin 10 mg tablet 10 mg PO DAILY #30 tabs 09/04/23 04/28/23 Rx Allergy/AdvReac Type Severity Reaction Status Date / Time cephalexin Allergy Hives Verified 09/12/23 17:51 Penicillins Allergy Hives Verified 09/12/23 17:51 Family History Mother Diabetes Heart disease Hypertension Father No problems noted. Surgical History History of quadruple bypass History of colonoscopy History of surgery History of arteriovenostomy for renal dialysis (~07/2020) History of tonsillectomy and adenoidectomy History of carpal tunnel surgery of right wrist History of carpal tunnel surgery of left wrist Social History household members: none housing: house Smoking Status: Former smoker how long ago did patient quit smoking: Quit 2000. alcohol intake: never substance use type: does not use ROS ROS ED Constitutional Constitutional ED: Denies chills, fever(s) or sweats Eyes Eyes: Denies blurry vision or change in vision ENT ENT ED: Denies ear pain or sore throat Cardiovascular Cardiovascular: Denies chest pain, palpitations or racing heartbeat Respiratory/Chest Respiratory/Chest: Denies cough, dyspnea or sputum Gastrointestinal Gastrointestinal: Denies abdominal pain, constipation, diarrhea, nausea or vomiting Genitourinary Genitourinary ED: Denies dysuria, hematuria or urinary frequency Musculoskeletal Musculoskeletal: Reports other Details: Contusion right tibia ; Denies arthralgias, myalgias or neck pain Integumentary Denies abscess, Abrasions or rash Neurologic Neurologic: Denies headache(s), paresthesias or weakness Psychiatric Psychiatric: Denies anxiety, depression, suicidal ideation or suicidal thoughts Endocrine Endocrinology: Denies polydipsia or polyuria EXAM Physical Exam Const Vital Signs: 09/12/23 17:44 09/12/23 17:59 09/12/23 18:02 Temperature 96.9 F L Temperature Source Temporal Pulse Rate 76 76 Respiratory Rate 20 H 20 H Blood Pressure 111/56 L Blood Pressure Mean 74 Pulse Ox 98 92 91 Oxygen Delivery Method Nasal Cannula Oxygen Flow Rate (L/min) 2 09/12/23 18:13 09/12/23 18:15 09/12/23 18:30 Temperature Temperature Source Pulse Rate 76 76 Respiratory Rate 20 H 27 H Blood Pressure 108/58 L 122/62 H Blood Pressure Mean 72 76 Pulse Ox 93 94 Oxygen Delivery Method Nasal Cannula Oxygen Flow Rate (L/min) 2 09/12/23 19:00 09/12/23 20:00 Temperature Temperature Source Pulse Rate 72 74 Respiratory Rate 19 H 16 Blood Pressure 126/61 H 97/53 L Blood Pressure Mean 82 66 Pulse Ox 100 100 Oxygen Delivery Method Oxygen Flow Rate (L/min) Positive well nourished and obese General Appearance ED: NAD Nutritional Appearance: obese HEENT Reports moist mucous membranes Eyes PERRL and EOMs intact bilaterally Chest Wall inspection of chest normal Resp normal respiratory effort and clear to auscultation bilaterally Auscultation: Negative for rales, rhonchi or wheezes Cardio regular rate and regular rhythm GI normal to inspection, nondistended, normoactive bowel sounds Extremity Extremity Narrative: There is a superficial contusion noted to the right proximal tibia. No deformity. MDM MDM MDM Narrative Medical decision making narrative: Patient presenting with an episode of syncope. He states he was not having any chest pain or shortness of breath prior to this. He does admit to some gas pains which she thinks was due to eating. States has been having this for couple of weeks. Differential includes syncope, concussion, skull fracture, intracranial hemorrhage, C-spine fracture, dysrhythmia, ACS, CHF, pneumonia, dehydration, anemia, electrolyte abnormalities. CBC will be obtained to assess white blood cell count, hemoglobin, platelets. BMP to assess renal function, electrolytes, glucose. High-sensitivity troponin and EKG to assess for ischemia/dysrhythmia. Chest x-ray to rule out pneumonia or CHF. Obtained initial EKG which was sinus rhythm at [address] depressions in 1 and [address]VL without reciprocal ST elevations. [place] interval 184, QRS duration 110, QTc 501. Patient's IV line was established. We obtained lab work. When he was taken to CT scan the patient had an episode of unresponsiveness. Apparently he was not on the monitor so we did not catch the rhythm strip but when he came back to the emergency room we moved him to room 2 and he had an EKG which showed an idioventricular rhythm at 37 bpm. Discussed the case with Dr. Delatorre who recommended transfer to tertiary care center with higher level of care. White blood cell count is 8.1 within normal limits. Hemoglobin 7.7 which is baseline. Platelets are normal at 238. Creatinine 5.88 which is expected with end-stage renal disease. INR is 2.1. High-sensitivity troponin was 136 however he had several in the 400s previously. Radiology interprets the chest x-ray as possible right lower lobe infiltrate however the patient is not hypoxic, does not have a white blood cell count. In fact his oxygen levels 100%. He has not any respiratory symptoms. I do not believe this represents an infiltrate on my interpretation. Delta troponin came back at 115. Discussed this with Dr. Campo at [facility] who accepted the patient. They state that they do have beds. He requested that I fax the EKGs over to him which was performed. Patient will be transferred when squad is available. Impression: 1. Syncope 2. Closed head injury 3. Bradycardia 4. Abnormal EKG Lab Data Attestation: I reviewed the patient's lab results. Labs: Laboratory Results - last 24 hr 09/12/23 09/12/23 17:50 18:51 WBC 8.1 RBC 2.23 L Hgb 7.7 L Hct 23.5 L MCV 105.4 H MCH 34.5 H MCHC 32.8 RDW Std Deviation 64.7 H RDW Coeff of Kassandra 19.3 H Plt Count 238 MPV 10.7 Immature Gran % (Auto) 0.400 Neut % (Auto) 76.5 H Lymph % (Auto) 12.6 L Osborne % (Auto) 9.3 Eos % (Auto) 1.1 Baso % (Auto) 0.1 Absolute Neuts (auto) 6.2 Absolute Lymphs (auto) 1.02 Nucleated RBC % 0 PT 23.4 H INR 2.1 Sodium 132 L Potassium 3.7 Chloride 92 L Carbon Dioxide 26.0 Anion Gap 14 BUN 35 H Creatinine 5.88 H Estim Creat Clear Calc 17.16 Est GFR (MDRD) Af Amer 13 L Est GFR (MDRD) Non-Af 10 L BUN/Creatinine Ratio 6.0 L Glucose 295 H Calcium 8.1 L Troponin I High Sens 136 H* POC Glucose 319 H Radiography Diagnostic Testing: Clinical Impression(s) from Imaging Studies Brain CT 09/12/23 18:28 IMPRESSION: Mild atrophy and periventricular white matter ischemic change. No evidence for acute intracranial hemorrhage Electronically Signed: Reilly Torres MD at 19:37 EDT , Cervical Spine CT 09/12/23 18:28 IMPRESSION: Degenerative changes most severe at C5-6 and C6-7. No acute fracture or subluxation Electronically Signed: Reilly Torres MD at 19:47 EDT , Chest X-Ray 09/12/23 19:10 IMPRESSION: Mild right lower lobe atelectasis or infiltrate Electronically Signed: Reilly Torres MD at 19:43 EDT , Discharge Plan Triage Chief Complaint: Syncope ED Provider: Carlo Haywood Dx/Rx/DC Orders Prescriptions: No Action buspirone 10 MG tablet 15 mg PO BID Patient Comments: anxiety calcium acetate(phosphat bind) 667 mg capsule 1,334 - 2,001 mg PO TIDCM Patient Comments: TAKE 1 CAPSULE DAILY nitroglycerin 0.4 mg tablet, sublingual 0.4 mg sublingual Q5M PRN (Reason: chest pain) Qty: 25 0RF Rx Instructions: do not exceed 3 doses per episode pantoprazole 40 mg tablet,delayed release (DR/EC) 40 mg PO DAILY glucagon 1 mg Kit 1 mg subcut PRN PRN (Reason: Hypoglycemia) midodrine 5 mg Tablet 20 mg PO TID Rx Instructions: do not give last dose of day after 6PM or within 4 hrs of bedtime venlafaxine [Effexor XR] 150 mg Capsule,Extended Release 24hr 150 mg PO DAILY dicyclomine 20 mg Tablet 20 mg PO TID atorvastatin [Lipitor] 40 mg tablet 40 mg PO DAILY gabapentin 600 mg tablet 600 mg PO Q12H Humulin N NPH Insulin KwikPen 100 unit/mL (3 mL) insulin pen 18 unit subcut QPM furosemide [Lasix] 40 mg tablet 40 mg PO DAILY Renal-Meño 0.8 mg tablet 1 tab PO DAILY amitriptyline 10 mg tablet 10 mg PO BID Humulin N NPH Insulin KwikPen 100 unit/mL (3 mL) insulin pen 5 unit subcut DAILY warfarin 10 mg tablet 10 mg PO DAILY Qty: 30 0RF Patient Comments: Take 12.5mg daily or as directing pending blood testing Rx Instructions: take 11mg coumadin daily warfarin 1 mg tablet See Rx Instructions .ROUTE .COMPLEX Qty: 30 0RF Rx Instructions: take 11mg coumadin daily Primary Care Provider: Yola Ng Referrals: Yola Ng MD [Primary Care Provider] - Print Language: Colombian
--- NOTE | 2023-09-12 18:45 | ED.RN ---
CT scan activated code travon in CT room. when this rn enters the room, the pt is breathing regular breaths, pt was blinking and eyes fixed to the ceiling. pt was sternal rubbed with no response to painful stimuli. pt was not talking or responding to name. pt was moved back to ED bed and pt noted to have an episode of bradycardia- HR was in the 30s at this time. dr bobby called into pts room when brought back into ED. pt then became responsive and began responding to sternal rub and voice.
[2023-09-12 18:51] LABS: Anion Gap 14 (5-15); BUN 35 mg/dL (7-18); Calcium,Total 8.1 mg/dL (8.5-10.1); Chloride 92 mmol/L (98-107); Creatinine, Serum 5.88 mg/dL (0.70-1.30); EST Glomerular Filtration Rate 10 mL/min (>60); Est Glom Filt Rate - Afr Amer 13 mL/min (>60); Estimated Creatinine Clearance 17.16 ml/min; Glucose 295 mg/dL (74-106); Potassium 3.7 mmol/L (3.5-5.1); Sodium Level 132 mmol/L (136-145); Troponin-I HS (w/2H Reflex) 136 pg/mL (3.0-78.0)
--- NOTE | 2023-09-12 18:54 | ED.RN ---
This RN asks Dr. Haywood if he would like to obtain a lactic acid to see if it may be elevated after pts syncopal episode. Dr. Haywood did not want to obtain at this time.
[2023-09-12 19:09] LABS: Bedside Glucose 319 mg/dL (74-106)
--- NOTE | 2023-09-12 19:10 | RAD_ITS ---
STUDY: X-RAY CHEST REASON FOR EXAM: Male, 63 years old. chest pain TECHNIQUE: AP portable COMPARISON: August 20, 2023 FINDINGS: Mild right lower lobe atelectasis or infiltrate.. There is no demonstrated pleural abnormality. Heart is mildly enlarged.. Normal mediastinum and sachi. Normal visualized pulmonary arteries. Normal visualized aortic arch and descending thoracic aorta. Postop change status post median sternotomy with CABG and left atrial appendage clip placement Normal visualized thoracic spine. Normal visualized ribs, clavicles, and shoulders. There is no demonstrated abnormality of the visualized soft tissue structures of the upper abdomen. RAD/Chest 1 View (Portable) IMPRESSION: Mild right lower lobe atelectasis or infiltrate Electronically Signed: Reilly Torres MD at 19:43 EDT ,
[2023-09-12 20:16] LABS: Reflex Troponin-HS? (from REC) Y
[2023-09-12 20:49] LABS: Troponin-I HS 115 pg/mL (3.0-78.0)
--- NOTE | 2023-09-12 23:18 | ED.RN ---
THIS NURSE ATTEMPTED TO CALL REPORT ON THIS PT TO TRANSFERRING HOSPITAL. THIS NURSE WAS TOLD TO CALL BACK AT A LATER TIME.
== END 2023-09-12 23:40 | disposition short-term general hospital (02) ==
PROVIDERS: Emergency Provider Student in an Organized Health Care Education/Training Program; PCP Internal Medicine; Visit Provider Student in an Organized Health Care Education/Training Program
DX: R55 Syncope and collapse (principal); I13.2 Hypertensive heart and chronic kidney disease with heart failure and with stage 5 chronic kidney disease, or end stage renal disease; N18.6 End stage renal disease; I50.32 Chronic diastolic (congestive) heart failure; E11.22 Type 2 diabetes mellitus with diabetic chronic kidney disease; E11.42 Type 2 diabetes mellitus with diabetic polyneuropathy; Z79.4 Long term (current) use of insulin; R94.31 Abnormal electrocardiogram [ECG] [EKG]; R00.1 Bradycardia, unspecified; E78.00 Pure hypercholesterolemia, unspecified; I25.10 Atherosclerotic heart disease of native coronary artery without angina pectoris; I25.2 Old myocardial infarction; Z99.2 Dependence on renal dialysis; Z79.01 Long term (current) use of 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; Z79.899 Other long term (current) drug therapy; Z86.16 Personal history of COVID-19; Z87.891 Personal history of nicotine dependence
CPT/HCPCS: 70450; 71045; 72125; 80048; 82962; 84484; 85025; 85610; 93005; 99285; A4216